=== PATIENT | male | born 1945 | race African-American/Black ===

== ENCOUNTER → 2016-11-05 | Day surgery (SDC) | payer MEDICARE, OTHER ==
[~2016-11-05] VITALS: Ht 175.3 cm; Wt 118.2 kg
[~2016-11-05] MED LIST: APIX2.5T PO; ASPI1TAB69 PO; BENA25TA3 PO; BUPIVACAINE/EPINEPHRINE 0.25% PF 30 ML VIAL ONE; CALC667T PO; DIALCAP PO; FURO40TA PO; GELFOAM SIZE 100 ONE; HEPARIN SODIUM - IV 10,000 UNITS/10 ML VIAL ONE; HEPARIN SODIUM - SQ 10,000 UNITS/ML VIAL ONE; INSU100V SQ; INSULIN HUMAN REGULAR 1,000 UNITS/10 ML VIAL SQ PRN; LACTATED RINGER'S 1000 ML IV SCH; LANTUS2P SQ; LEVEMIR SQ; METOPROLOL TARTRATE 25 MG TAB PO PRN; PANT40TA3 PO; PROTAMINE SULFATE 50 MG/5 ML VIAL ONE; RENACAP2 PO; SODIUM CHLORID 0.9% 500 ML IV SCH; TAMS0.4C4 PO; THROMBIN (TOPICAL) 5,000 UNIT VIAL ONE; VANCOMYCIN HCL 1000 MG VIAL ONE
[2016-11-05 07:10] VITALS: BP 117/68; PULSE 99; RESP 16; TEMP 97.8; O2SAT 100
[2016-11-05 07:12] LABS: AUTOMATED NEUTROPHIL # 2.5 TH/MM3 (1.8-7.7); BASOPHIL # 0.1 TH/MM3 (0-0.2); BASOPHIL % 1.4 % (0.0-2.0); EOSINOPHIL # 0.2 TH/MM3 (0-0.4); EOSINOPHIL % 3.1 % (0.0-4.0); HEMATOCRIT 31.5 % (39.0-51.0); HEMO FLAGS DIFF FINAL; LYMPH % 47.8 % (9.0-44.0); LYMPHOCYTE # 3.3 TH/MM3 (1.0-4.8); MEAN CELL VOLUME 83.6 FL (80.0-100.0); MEAN CORPUSCULAR HEMOGLOBIN 26.2 PG (27.0-34.0); MEAN CORPUSCULAR HGB CONC 31.4 % (32.0-36.0); MONO % 11.1 % (0.0-8.0); NEUT % 36.6 % (16.0-70.0); PLATELET COUNT 381 TH/MM3 (150-450); RED BLOOD COUNT 3.78 MIL/MM3 (4.50-5.90); RED CELL DISTRIBUTION WIDTH 20.4 % (11.6-17.2); WHITE BLOOD COUNT 6.9 TH/MM3 (4.0-11.0)
--- NOTE | 2016-11-05 07:28 | RADRPT ---
EXAM DATE/TIME: 11/05/2016 06:26 [place] COMPARISON: No previous studies available for comparison. INDICATIONS : Evaluate for pneumonia, pneumothorax or communicable disease. Preop chest for vascular surgery today MEDICAL HISTORY : Diabetes mellitus type II. SURGICAL HISTORY : None. ENCOUNTER: Initial ACUITY: 1 day PAIN SCORE: 0/10 LOCATION: Bilateral chest FINDINGS: A left internal jugular tunneled dialysis catheter has its tip at the junction of the superior vena c lux and right atrium. No pneumothorax is noted. There is elevation of the right hemidiaphragm. The he art is normal. The pulmonary vascular pattern is normal. The lungs are clear. CONCLUSION: No acute cardiopulmonary disease. Breezy Montero MD on November 05, 2016 at 7:25 Board Certified Radiologist. This report was verified electronically.
[2016-11-05 07:48] LABS: ALKALINE PHOSPHATASE 100 U/L (45-117); TOTAL BILIRUBIN ADULT 0.2 MG/DL (0.2-1.0)
[2016-11-05 07:51] LABS: ALT (GPT) 18 U/L (12-78); ANION GAP 7 MEQ/L (5-15); AST (GOT) 15 U/L (15-37); BICARBONATE 26.3 MEQ/L (21.0-32.0); BLOOD UREA NITROGEN 46 MG/DL (7-18); CHLORIDE 103 MEQ/L (98-107); GLOMERULAR FILTRATION RATE 8 ML/MIN (>89); SODIUM (NA) 136 MEQ/L (136-145)
--- NOTE | 2016-11-05 13:35 | EKG ---
Date Performed: 11/05/2016 Time Performed: 06:49:34 PTAGE: 71 years EKG: Sinus rhythm NORMAL ECG NO PREVIOUS TRACING DOCTOR: Miracle Pascal Interpretating Date/Time 11/05/2016 13:30:58
== END | disposition home or self-care (01) ==
LOC: HSDC 05:51
PROVIDERS: ATTEND Surgery
DX: N18.6 End stage renal disease (principal); I12.0 Hypertensive chronic kidney disease with stage 5 chronic kidney disease or end stage renal disease; E11.9 Type 2 diabetes mellitus without complications; Z53.9 Procedure and treatment not carried out, unspecified reason; Z99.2 Dependence on renal dialysis
CPT/HCPCS: 71010; 80053; 85025; 86850; 86900; 86901; 93005; G0463; J1815; 99211; J1644; J2720; J3370

== ENCOUNTER 2016-11-12 08:13 | Observation (INO) | payer MEDICARE, OTHER ==
[~2016-11-12] VITALS: Ht 175.3 cm; Wt 117.3 kg
[~2016-11-12 08:13] MED LIST changes: -BUPIVACAINE/EPINEPHRINE 0.25% PF 30 ML VIAL ONE; -DIALCAP PO; -GELFOAM SIZE 100 ONE; -HEPARIN SODIUM - IV 10,000 UNITS/10 ML VIAL ONE; -HEPARIN SODIUM - SQ 10,000 UNITS/ML VIAL ONE; -INSU100V SQ; -INSULIN HUMAN REGULAR 1,000 UNITS/10 ML VIAL SQ PRN; -LACTATED RINGER'S 1000 ML IV SCH; -METOPROLOL TARTRATE 25 MG TAB PO PRN; -PROTAMINE SULFATE 50 MG/5 ML VIAL ONE; -SODIUM CHLORID 0.9% 500 ML IV SCH; -THROMBIN (TOPICAL) 5,000 UNIT VIAL ONE; -VANCOMYCIN HCL 1000 MG VIAL ONE
[2016-11-12] MEDS ORDERED: BUPIVACAINE/EPINEPHRINE 0.25% PF 30 ML VIAL ONE (08:34)
[2016-11-12] MEDS ORDERED: HEPARIN SODIUM - IV 10,000 UNITS/10 ML VIAL ONE (08:34)
[2016-11-12] MEDS ORDERED: HEPARIN SODIUM - SQ 10,000 UNITS/ML VIAL ONE (08:35)
[2016-11-12] MEDS ORDERED: PROTAMINE SULFATE 50 MG/5 ML VIAL ONE (08:35)
[2016-11-12] MEDS ORDERED: VANCOMYCIN HCL 1000 MG VIAL ONE (08:35)
[2016-11-12] MEDS ORDERED: THROMBIN (TOPICAL) 5,000 UNIT VIAL ONE (08:40)
[2016-11-12] MEDS ORDERED: GELFOAM SIZE 100 ONE (08:40)
[2016-11-12] MEDS ORDERED: INSULIN HUMAN REGULAR 1,000 UNITS/10 ML VIAL ONE (09:31)
[2016-11-12] MEDS ORDERED: DIALCAP PO (09:41)
[2016-11-12 09:45] VITALS: BP 120/69; PULSE 90; RESP 20; TEMP 98.1; O2SAT 100
[2016-11-12] MEDS ORDERED: MIDAZOLAM HCL 5 MG/5 ML VIAL ONE (10:44)
[2016-11-12] MEDS ORDERED: KETAMINE HCL 500 MG/5 ML VIAL ONE (10:54)
[2016-11-12] MEDS ORDERED: ROPIVACAINE 0.5% PF INJ 30 ML VIAL NB ONE (11:41)
[2016-11-12] MEDS ORDERED: PHENYLEPH/NS 1000 MCG/10 ML SYR IV ONE (12:00)
[2016-11-12] MEDS ORDERED: ePHEDrine/NS 25 MG/5 ML SYR IV ONE (12:00)
[2016-11-12] MEDS ORDERED: PROPOFOL 200 MG/20 ML AMP IV ONE (12:00)
[2016-11-12] MEDS ORDERED: FUROSEMIDE 40 MG/4 ML VIAL IV PUSH ONE (12:00)
[2016-11-12] MEDS ORDERED: SUGAMMADEX SODIUM 200 MG/2 ML VIAL IV PUSH ONE ×2 (12:43)
[2016-11-12 12:58] LABS: BLOOD GAS BASE EXCESS -5.4 mmol/L (-2-2); BLOOD GAS CARBOXYHEMOGLOBIN 1.6 % (0-4); BLOOD GAS HCO3 20 mmol/L (22-26); BLOOD GAS METHEMOGLOBIN 0.9 % (0-2); BLOOD GAS O2 HGB SATURATION 97 % (90-100); BLOOD GAS OXYGEN CONTENT 14.8 Vol % (12.0-20.0); BLOOD GAS PCO2 41 mmHg (38-42); BLOOD GAS PO2 244 mmHg (61-120); BLOOD GAS TOTAL HGB 10.4 G/DL (12.0-16.0); CRITICAL VALUE NO; OXYGEN DEVICE OR; STAT YES; TEMP CORR TO 98.6
[2016-11-12] MEDS ORDERED: SODIUM CHLOR 0.9% 1000 ML INJ 1,000 ML IV SCH (15:44)
[2016-11-12] MEDS ORDERED: ONDANSETRON HCL 4 MG/2 ML VIAL IVP PRN (15:45)
[2016-11-12] MEDS ORDERED: NALOXONE HCL 0.4 MG/ML AMP IV PRN (15:45)
[2016-11-12] MEDS ORDERED: SODIUM CHLORIDE 0.9% FLUSH 5 ML FLUSH FLUSH PRN (15:45)
[2016-11-12 17:27] LABS: AUTOMATED NEUTROPHIL # 5.7 TH/MM3 (1.8-7.7); BASOPHIL % 0.5 % (0.0-2.0); HEMATOCRIT 32.4 % (39.0-51.0); HEMO FLAGS DIFF FINAL; LYMPH % 11.8 % (9.0-44.0); LYMPHOCYTE # 0.8 TH/MM3 (1.0-4.8); MEAN CELL VOLUME 84.4 FL (80.0-100.0); MEAN CORPUSCULAR HEMOGLOBIN 26.4 PG (27.0-34.0); MEAN CORPUSCULAR HGB CONC 31.3 % (32.0-36.0); MONO % 1.4 % (0.0-8.0); NEUT % 86.3 % (16.0-70.0); PLATELET COUNT 329 TH/MM3 (150-450); RED BLOOD COUNT 3.84 MIL/MM3 (4.50-5.90); RED CELL DISTRIBUTION WIDTH 21.4 % (11.6-17.2); WHITE BLOOD COUNT 6.6 TH/MM3 (4.0-11.0)
--- NOTE | 2016-11-12 17:46 | EC ---
Study Study Date:11/12/2016 STUDY CONCLUSIONS SUMMARY - Left ventricle: The cavity size was normal. Wall thickness was normal. Systolic function was normal. The estimated ejection fraction was in the range of 55% to 60%. Doppler parameters are consistent with abnormal left ventricular relaxation (grade 1 diastolic dysfunction). - Ventricular septum: The outflow septum had a sigmoid appearance. - Aortic valve: Mildly calcified annulus. Trileaflet; mildly thickened leaflets. - Mitral valve: Mildly calcified annulus. Normal thickness leaflets, . If LV function is below 40, please consider prescribing an ACEI or ARB or document rationale for non-use. PROCEDURE DATA STUDY STATUS: Elective. Procedure: Transthoracic echocardiography. Image quality was good. Scanning was performed from the parasternal, apical, and subcostal acoustic windows. Study completion: The patient tolerated the procedure well. Transthoracic echocardiography. M-mode, complete 2D, complete spectral Doppler, and color Doppler. Patient status: Inpatient. CARDIAC ANATOMY LEFT VENTRICLE: The cavity size was normal. Wall thickness was normal. Systolic function was normal. The estimated ejection fraction was in the range of 55% to 60%. Doppler parameters are consistent with abnormal left ventricular relaxation (grade 1 diastolic dysfunction). AORTIC VALVE: Mildly calcified annulus. Trileaflet; mildly thickened leaflets. Doppler: There was no stenosis. No significant regurgitation. MITRAL VALVE: Mildly calcified annulus. Normal thickness leaflets, . Doppler: There was no evidence for stenosis. Trace regurgitation. Peak gradient: 2mm Hg (D). LEFT ATRIUM: The atrium was normal in size. RIGHT VENTRICLE: The cavity size was at the upper limits of normal. Systolic function was normal. VENTRICULAR SEPTUM: The outflow septum had a sigmoid appearance. PULMONIC VALVE: Not well visualized. Doppler: There was no evidence for stenosis. No significant regurgitation. TRICUSPID VALVE: The valve appears to be grossly normal. Doppler: There was no evidence for stenosis. Trace regurgitation. PERICARDIUM: There was no pericardial effusion. BASIC MEASUREMENTS ADULT Normal Left ventricle LV internal dimension, ED, chordal level, 47.5 mm 43-52 PLAX LV internal dimension, ES, chordal level, 35.7 mm 23-38 PLAX Fractional shortening, chordal level, PLAX *25 % >29 LV posterior wall thickness, ED 7.29 mm IVS/LVPW ratio, ED *1.36 <1.3 Ventricular septum Septal thickness, ED 9.88 mm Aortic valve Leaflet separation 22 mm 15-26 Left atrium Anterior-posterior dimension 31 mm Right ventricle RV internal dimension, ED, PLAX 29.5 mm 19-38 BASIC MEASUREMENTS ADULT Normal Aortic valve Leaflet separation 22 mm 15-26 Aorta Root diameter, ED *39 mm 20-37 DOPPLER MEASUREMENTS ADULT Normal Main pulmonary artery Pressure, S 23 mm Hg =30 Mitral valve Peak E-wave velocity 78.4 cm/s Peak A-wave velocity 105 cm/s Peak gradient, D 2 mm Hg Peak E/A ratio 0.7 Tricuspid valve Regurgitant peak velocity 205 cm/s Peak RV-RA gradient, S 17 mm Hg Maximal regurgitant velocity 205 cm/s Systemic veins Estimated CVP 5 mm Hg Right ventricle RV pressure, S 23 mm Hg <30 LEGEND: Mean values are shown as u=mean value. Asterisk (*) fernando values outside specified normal range. Prepared and signed by Glenroy Woody [id number]
[2016-11-12] MEDS ORDERED: FUROSEMIDE 40 MG TAB PO SCH (18:00)
[2016-11-12] MEDS ORDERED: DEXTROSE 50% IN WATER 50 ML VIAL(D50) IV PUSH PRN (18:00)
[2016-11-12] MEDS ORDERED: GLUCAGON 1 MG/ML VIAL OTHER PRN (18:00)
--- NOTE | 2016-11-12 18:40 | HHI.HP ---
[facility] Service [facility] ([place], [place])ists Primary Care Physician No Primary Care Physician Admission Diagnosis Diagnoses: (1) Hypotension Chief Complaint: S/P RUE AV fistula placement Travel History International Travel<30 Days: No Contact w/Intl Traveler <30 Da: No Traveled to Known Affected Are: No History of Present Illness This is a pleasant 71-year-old male patient with a past medical history which includes renal stents 2, DVT right upper extremity on pelvic rest, GERD, BPH, insulin-dependent diabetes mellitus and end-stage renal disease. Patient is status post right upper extremity brachiobasilic AV fistula today 11/12/[address] Watkins. Postoperatively patient had hypotensive episode 85/50 with question of aspiration. We have been consulted to admit patient for observation overnight. Patient evaluated at this time alert and oriented 3 reports she feels, "pretty well," offers no specific complaints at this time. Patient denies feeling dizzy lightheaded and short of breath. Patient also denies cough or sputum production. Patient did have bronchoscopy today which did not reveal aspiration contents. Patient does have Pink catheter in place secondary to urinary retention is followed by outpatient neurology Dr. Goodwin who plans to remove Pink catheter next Friday in his office. Review of Systems Other Other systems reviewed and negative except as mentioned in history of present illness Past Family Social History Past Medical History renal stents 2, DVT right upper extremity on pelvic rest, GERD, BPH, insulin- dependent diabetes mellitus and end-stage renal disease Past Surgical History Renal stent 2 Prostate surgery with laser Hemodialysis catheter placed Reported Medications Dialyvite Vitamin D 5000 (Cholecalciferol) 5,000 Unit Cap 5,000 Units PO DAILY Levemir Inj (Insulin Detemir) 1,000 unit/ 10 ML Vial 4 Units SQ BID Do not mix with any other Insulin. Lantus Inj (Insulin Glargine) 1,000 Unit/10 Ml Vial 8 Units SQ HS Aspirin 81 Mg Tabdr 81 Mg PO DAILY Eliquis (Apixaban) 2.5 Mg Tab 2.5 Mg PO BID Pantoprazole (Pantoprazole Sodium) 40 Mg Tab 40 Mg PO DAILY Benadryl Allergy (Diphenhydramine HCl) 25 Mg Tab 25 Mg PO HS PRN Renal Vitamin (B-Complex W/ C & Folic Acid) 1 Cap 1 Cap PO DAILY If on dialysis, take after treatment. Calcium Acetate (Phosphate Binder) 667 Mg Tab 667 Mg PO TID Furosemide 40 Mg Tab 40 Mg PO SUTUTHSA Tamsulosin (Tamsulosin HCl) 0.4 Mg Cap 0.4 Mg PO HS Allergies: Coded Allergies: No Known Allergies (Verified , 11/12/16) Active Ordered Medications Current Medications Medications (Trade) Dose Ordered Sig/Fabiola Route Start Time Stop Time Status Last Admin Pantoprazole Sodium 40 mg 40 mg DAILY PO 11/13/16 09:00 (NS 1000 ml Inj) 1,000 ml @ 100 mls/hr Q10H IV 11/12/16 15:44 11/12/16 20:43 (NS Flush) 2 ml UNSCH PRN FLUSH 11/12/16 15:45 (NS Flush) 2 ml BID FLUSH 11/12/16 21:00 (Zofran Inj) 4 mg Q6H PRN IVP 11/12/16 15:45 (Narcan Inj) 0.4 mg UNSCH PRN IV 11/12/16 15:45 (Phoslo) 667 mg TID PO 11/12/16 18:00 UNV (Vitamin D3) 5,000 units DAILY PO 11/13/16 09:00 UNV (Lasix) 40 mg sututhsa PO 11/12/16 18:00 UNV (Flomax) 0.4 mg HS PO 11/12/16 21:00 UNV (D50w (Vial) Inj) 25 ml UNSCH PRN IV PUSH 11/12/16 18:00 UNV (Glucagon Inj) 1 mg UNSCH PRN OTHER 11/12/16 18:00 UNV Family History Patient's sister also has diabetes mellitus Patient's father had GA Social History Patient denies EtOH use tobacco use or illicit drug use Physical Exam Vital Signs Vital Signs Date Time Temp Pulse Resp B/P Pulse Ox O2 Delivery O2 Flow Rate FiO2 11/12/16 17:00 87 12 127/78 100 Room Air 11/12/16 16:30 78 12 119/69 100 Room Air 11/12/16 16:00 78 14 120/75 97 Room Air 11/12/16 15:45 83 13 121/75 96 Room Air 11/12/16 15:30 82 12 112/77 96 Room Air 11/12/16 15:15 97.3 96 12 111/69 98 Room Air 11/12/16 15:00 79 12 113/53 100 Room Air 11/12/16 14:45 84 18 103/55 99 Room Air 11/12/16 14:30 77 12 85/50 95 Room Air 11/12/16 14:15 86 12 91/51 92 Room Air 11/12/16 14:00 87 13 89/53 96 Room Air 11/12/16 13:45 86 12 85/45 98 Room Air 11/12/16 13:30 90 13 82/45 99 Room Air 11/12/16 13:15 110 14 97/51 100 Room Air 11/12/16 13:13 97.4 108 16 86/54 100 Simple Mask 6 11/12/16 09:45 98.1 90 20 120/69 100 Physical Exam GENERAL: This is a well-nourished, well-developed patient, in no apparent distress. SKIN: No rashes, ecchymoses or lesions. Cool and dry. HEAD: Atraumatic. Normocephalic. No temporal or scalp tenderness. EYES: Extraocular motions intact. No scleral icterus. No injection or drainage. ENT: Nose without bleeding, purulent drainage or septal hematoma. Throat without erythema, tonsillar hypertrophy or exudate. Uvula midline. Airway patent. NECK: Trachea midline. No JVD or lymphadenopathy. Supple, nontender, no meningeal signs. CARDIOVASCULAR: Regular rate and rhythm without murmurs, gallops, or rubs. RESPIRATORY: Clear to auscultation. Breath sounds equal bilaterally. No wheezes , rales, or rhonchi. GASTROINTESTINAL: Abdomen soft, non-tender, nondistended. No guarding. MUSCULOSKELETAL: Extremities without clubbing, cyanosis, or edema. No joint tenderness, effusion, or edema noted. No calf tenderness. Negative Homans sign bilaterally. NEUROLOGICAL: Awake and alert. Five out of 5 muscle strength in all muscle groups with the exception of right upper extremity. Patient is postop AV fistula placement reports right upper extremity feels numb. Normal speech. Laboratory Laboratory Tests Test 11/12/16 11/12/16 11/12/16 09:35 12:46 17:15 Potassium Level 5.3 Blood Type B POSITIVE Antibody Screen NEGATIVE Blood Gas Puncture Site DRAWN IN OR Blood Gas Patient Temperature 98.6 Blood Gas HCO3 20 Blood Gas Base Excess -5.4 Blood Gas Oxygen Saturation 97 Arterial Blood pH 7.30 Arterial Blood Partial 41 Pressure CO2 Arterial Blood Partial 244 Pressure O2 Arterial Blood Oxygen Content 14.8 Arterial Blood 1.6 Carboxyhemoglobin Arterial Blood Methemoglobin 0.9 Blood Gas Hemoglobin 10.4 Oxygen Delivery Device OR White Blood Count 6.6 Red Blood Count 3.84 Hemoglobin 10.1 Hematocrit 32.4 Mean Corpuscular Volume 84.4 Mean Corpuscular Hemoglobin 26.4 Mean Corpuscular Hemoglobin 31.3 Concent Red Cell Distribution Width 21.4 Platelet Count 329 Mean Platelet Volume 7.4 Neutrophils (%) (Auto) 86.3 Lymphocytes (%) (Auto) 11.8 Monocytes (%) (Auto) 1.4 Eosinophils (%) (Auto) 0.0 Basophils (%) (Auto) 0.5 Neutrophils # (Auto) 5.7 Lymphocytes # (Auto) 0.8 Monocytes # (Auto) 0.1 Eosinophils # (Auto) 0.0 Basophils # (Auto) 0.0 CBC Comment DIFF FINAL Differential Comment Result Diagram: 11/12/16 1715 11/12/16 0935 Assessment and Plan Assessment and Plan This is a pleasant 71-year-old male patient with a past medical history which includes renal stents 2, DVT right upper extremity on pelvic rest, GERD, BPH, insulin-dependent diabetes mellitus and end-stage renal disease. Patient is status post right upper extremity brachiobasilic AV fistula today 11/12/[address] Luong. Postoperatively patient had hypotensive episode 85/50 with question of aspiration. Patient did have bronchoscopy today which did not reveal aspiration contents. We have been consulted to admit patient for observation overnight. End-stage renal disease status post AV fistula placed 11/12/2016 Consultation to nephrology for hemodialysis patient has dialysis Friday Hyperkalemia 5.3 recheck in a.m. Hypotensive episode patient received IV fluids and is now normotensive. Continue to monitor overnight Question of aspiration patient underwent bronchoscopy today which did not reveal aspiration contents. Patient has no symptoms of respiratory compromise currently. Monitor patient closely for signs and symptoms of infection Diabetes mellitus sliding scale insulin coverage continue to monitor History of right upper extremity DVT on Eliquis which is currently on hold status post AV fistula placement will resume once okay with surgery Urinary retention BPH- Pink catheter in place patient follows with urology Dr. Goodwin who plans to remove the catheter as an outpatient next Friday leave Pink in place DVT prophylaxis SCDs Plan of care discussed with patient and patient's over the phone. Written by Radha Beltran, acting as scribe for Dr. Malcolm on 11/12/16 at 18 :37. The documentation accurately reflects the work performed [id number] by me on 11/12/16 at 1837. Radha Beltran Nov 12, 2016 18:40 Purvi Malcolm MD Nov 12, 2016 19:07
[2016-11-12 19:14] LABS: BICARBONATE 24.9 MEQ/L (21.0-32.0); POTASSIUM 5.8 MEQ/L (3.5-5.1)
[2016-11-12 20:00] VITALS: BP 121/74; PULSE 89; RESP 20; TEMP 96; O2SAT 99
--- NOTE | 2016-11-12 20:43 | HHI.PR ---
Immediate Post Op Note Procedure Date: Nov 12, 2016 Pre Op Diagnosis: (1) ESRD (end stage renal disease) on dialysis Post Op Diagnosis: (1) ESRD (end stage renal disease) on dialysis (2) Hypotension Surgeon: Ben Luong Assembler Trim(s): GYPSY Procedure: Right upper extremity Brachiobasilic AVF Findings: Appropriate size basillic vein with palpable thrill post procedure with distal pulses intact. Additional Information: patient with emesis converted from MAC to ET intubation during the procedure. Complications: none Specimen(s) removed: NA Estimated blood loss: less than 25cc Anesthesia: General Drains: None Fluids: 250cc Other (crystalloid) Tourniquet time (min at mmHg) NA Patient to: PACU Patient Condition: Good Implant/Devices: Other Date/Time of Procedure: SEE SURGICAL CARE RECORD Ben Luong DO Nov 12, 2016 20:43
--- NOTE | 2016-11-12 20:57 | PD.VS.PN ---
Objective Vitals/I&O Date Time Temp Pulse Resp B/P Pulse Ox O2 Delivery O2 Flow Rate FiO2 11/12/16 18:30 97.6 85 13 122/68 100 Room Air 11/12/16 18:00 81 14 123/68 100 Room Air 11/12/16 17:00 87 12 127/78 100 Room Air 11/12/16 16:30 78 12 119/69 100 Room Air 11/12/16 16:00 78 14 120/75 97 Room Air 11/12/16 15:45 83 13 121/75 96 Room Air 11/12/16 15:30 82 12 112/77 96 Room Air 11/12/16 15:15 97.3 96 12 111/69 98 Room Air 11/12/16 15:00 79 12 113/53 100 Room Air 11/12/16 14:45 84 18 103/55 99 Room Air 11/12/16 14:30 77 12 85/50 95 Room Air 11/12/16 14:15 86 12 91/51 92 Room Air 11/12/16 14:00 87 13 89/53 96 Room Air 11/12/16 13:45 86 12 85/45 98 Room Air 11/12/16 13:30 90 13 82/45 99 Room Air 11/12/16 13:15 110 14 97/51 100 Room Air 11/12/16 13:13 97.4 108 16 86/54 100 Simple Mask 6 11/12/16 09:45 98.1 90 20 120/69 100 11/12/16 11/12/16 11/12/16 07:00 15:00 23:00 Intake Total 400 ml 150 ml Output Total 50 ml Balance 350 ml 150 ml Physical Exam thrill with clean dressing right upper extremity A&O x 3 Laboratory Laboratory Tests Test 11/12/16 11/12/16 11/12/16 11/12/16 09:35 12:46 17:15 18:23 Potassium Level 5.3 5.8 Blood Type B POSITIVE Antibody Screen NEGATIVE Blood Gas Puncture Site DRAWN IN OR Blood Gas Patient Temperature 98.6 Blood Gas HCO3 20 Blood Gas Base Excess -5.4 Blood Gas Oxygen Saturation 97 Arterial Blood pH 7.30 Arterial Blood Partial 41 Pressure CO2 Arterial Blood Partial 244 Pressure O2 Arterial Blood Oxygen Content 14.8 Arterial Blood 1.6 Carboxyhemoglobin Arterial Blood Methemoglobin 0.9 Blood Gas Hemoglobin 10.4 Oxygen Delivery Device OR White Blood Count 6.6 Red Blood Count 3.84 Hemoglobin 10.1 Hematocrit 32.4 Mean Corpuscular Volume 84.4 Mean Corpuscular Hemoglobin 26.4 Mean Corpuscular Hemoglobin 31.3 Concent Red Cell Distribution Width 21.4 Platelet Count 329 Mean Platelet Volume 7.4 Neutrophils (%) (Auto) 86.3 Lymphocytes (%) (Auto) 11.8 Monocytes (%) (Auto) 1.4 Eosinophils (%) (Auto) 0.0 Basophils (%) (Auto) 0.5 Neutrophils # (Auto) 5.7 Lymphocytes # (Auto) 0.8 Monocytes # (Auto) 0.1 Eosinophils # (Auto) 0.0 Basophils # (Auto) 0.0 CBC Comment DIFF FINAL Differential Comment Sodium Level 133 Chloride Level 100 Carbon Dioxide Level 24.9 Anion Gap 8 Blood Urea Nitrogen 63 Creatinine 9.45 Estimat Glomerular Filtration 7 Rate Random Glucose 193 Calcium Level 9.0 Assessment and Plan Assessment: (1) ESRD (end stage renal disease) on dialysis Status: Acute (2) Hypotension Status: Acute Plan Patient is a 71 year old status post right upper extremity Brachiobasilic AVF creation. Fistula created with minimal blood loss under nerve block. Patient hypotensive in PACU (80 mmHg systolic) but neurologically intact. Patient normotensive on follow up blood pressure in 110 mm HG systolic range. Neurologically intact without other complaints. Concern from anesthesia for hypotension with decision to be admitted and worked up by cardiology. Patient with know episodes of hypotension during dialysis, suspect possible volume depletion with base deficit. Admitted to be worked up for CHF. EF greater than 40% by echocardiogram post op. Cardiology will make recommendations. If cleared in AM possible discharge to get dialysis as outpatient (1145 am). Will follow along with recommendations. Otherwise follow up in one week in office. [phone]. Ben Luong DO, FACS Java Developer Consultant of Vascular Surgery AQUILES/Ben Jansen DO Nov 12, 2016 20:57
[2016-11-12] MEDS ORDERED: TAMSULOSIN HCL 0.4 MG CAP PO SCH (21:00)
[2016-11-12] MEDS: INSULIN ASPART SUPPLEMENTAL SCALE SQ SCH (21:00)
[2016-11-12] MEDS: CALCIUM ACETATE 667 MG CAP PO SCH (21:13)
[2016-11-12] MEDS: SODIUM CHLORIDE 0.9% FLUSH 5 ML FLUSH FLUSH SCH (21:14)
[2016-11-13] VITALS: BP 119/65; PULSE 84; RESP 20; TEMP 96.2; O2SAT 100
--- NOTE | 2016-11-13 00:04 | MB ---
cc: GLENROY DANIEL RYAN DATE OF CONSULTATION: 11/12/2016 REASON FOR CONSULTATION: Hypotensive postop HISTORY OF PRESENT ILLNESS Bonifacio Laguerre is a pleasant 71-year-old -Wel[place] male who presented for an elective right AV fistula creation by Dr. Luong today at [facility] (November 12, 2016). Per Dr. Luong, the patient was originally given anesthetics with a nerve block and then he was noted to somewhat be hypotensive and he was switched to an LMA at that time. The procedure went well without complication. Postoperatively in the PACU he was mildly hypotensive and given a small amount of fluid and then responded with a normal blood pressure. There was concern by anesthesia so a STAT echo was placed and consult for cardiology. In seeing Bonifacio at this time, he states that he has no chest pain or shortness of breath and feels well. PAST MEDICAL HISTORY 1. Peripheral artery disease. 2. End-stage renal disease. 3. History of DVT. 4. GERD. 5. BPH. 6. Insulin-dependent diabetes mellitus. PAST SURGICAL HISTORY 1. Creation of right AV fistula (November 12, 2016). 2. Renal stent x2. 3. Prostate surgery with laser. ALLERGIES NO KNOWN DRUG ALLERGIES. MEDICATIONS 1. Flomax 0.4 mg every night 2. Eliquis 2.5 mg b.i.d. 3. Benadryl as needed 4. Levemir 4 units b.i.d. 5. Lantus 8 units every night. 6. Lasix 40 mg 7. Aspirin 81 mg 8. Protonix 40 mg 9. Calcium acetate 667 mg t.i.d. FAMILY HISTORY Denies premature coronary artery disease or sudden cardiac within the family. SOCIAL HISTORY The patient denies alcohol use. Denies tobacco use. Denies illicit drug abuse. REVIEW OF SYSTEMS 14 systems were reviewed including osteopathic, pertinent positives and negatives above, otherwise negative. PHYSICAL EXAMINATION Vital signs: Temperature 96.0. Heart rate 89, blood pressure 121/74, respirations 20, pulse ox 99% on room air. General: The patient appears well in no acute distress, alert, awake and oriented x3. Extraocular muscles intact. Mucous membranes moist. Neck is supple. No JVD at 45 degrees. No carotid bruits heard bilaterally. Carotid upstroke is brisk in nature. Heart has a regular rate and rhythm. Positive first and second heart sounds with no murmurs, gallops or rubs. PMI is nondisplaced. Lungs: Clear to auscultation bilaterally. No wheezes, rales or rhonchi. Abdomen: Soft, nontender, nondistended, no organomegaly noted. Extremities: Show no clubbing, cyanosis or edema. Right upper extremity is bandaged from recent AV fistula. Skin: Warm, dry and intact. Osteopathically, no kyphoscoliosis, lordosis or paraspinal tender points. LABORATORY WORK Hemoglobin 10.1, hematocrit 32.4, platelets 329. Potassium 5.8, BUN 63, creatinine 9.45. Electrocardiogram (November 12, 2016 at 16:25) normal sinus rhythm, no significant ST-T wave changes. IMPRESSION 1. Mild hypotension postoperatively which responded to fluids. 2. End-stage renal disease on hemodialysis status post right AV fistula creation (November 12, 2016. RECOMMENDATIONS 1. Bonifacio appears to be doing well postoperatively, his hypotension at the end of the procedure may be due to overall fluid deficit due to recent dialysis as well as medications used for anesthetics. 2. We will check an echo to look at his overall left ventricular function. 3. EKG postoperatively shows no signs of ischemia. He currently has no signs or symptoms of ischemia. 4. If echo shows normal ejection fraction with no concerns as well as doing well overnight, I will see him in the morning and he most likely can be discharged to attend his normal hemodialysis session. Thank you for allowing me to see Bonifacio Laguerre. If there are any questions please do not hesitate to call. Glenroy Daniel DO VGP/JULIANNA /11:23 PM /11:54 PM
[2016-11-13 04:00] VITALS: BP 119/68; PULSE 85; RESP 20; TEMP 96; O2SAT 98
[2016-11-13] MEDS: INSULIN ASPART SUPPLEMENTAL SCALE SQ SCH (06:19)
--- NOTE | 2016-11-13 07:10 | MP ---
cc: PETE ORDAZ DATE OF SURGERY 11/12/2016 SURGEON Pete Ordaz DO BALLISTIC TECHNICIAN Jordan Rojas PREOPERATIVE DIAGNOSIS End-stage renal disease. POSTOPERATIVE DIAGNOSIS End-stage renal disease. PROCEDURE Right upper extremity brachiobasilic AV fistula ANESTHESIA Initially was MAC and supraclavicular nerve block with progression to endotracheal intubation by and the end of the case. IV FLUIDS 200 cc ESTIMATED BLOOD LOSS Minimal URINE OUTPUT Not calculated. COMPLICATIONS None DISPOSITION To PACU PROCEDURE The patient's right upper extremity was prepped and draped in A sterile fashion. Got access using a curvilinear incision just above the antecubital fossa on the medial aspect of the right arm with a scalpel and electrocautery. This was approximately a 4 cm incision. I dissected down with Metzenbaum scissors around the os basilic vein. It should be noted I did preoperatively use ultrasound to look at the cephalic and basilic vein and the basilic vein was a more appropriate diameter vein for this case. I divided side branches with small clips and 3-0 and 4-0 silks as needed and divided the vessels. I then immobilized the vein. I then incised the bicipital aponeurosis with Metzenbaum scissors and mobilized the brachial artery and paired brachial veins. I placed Vesseloops to get proximal and distal control of the brachial artery and gave the patient 3000 units of heparin. I divided the basilic vein just below the antecubital fossa and I used a zero suture ligature distally. It should be noted that the vein did appropriately inflate whenever I injected normal saline. I then fashioned out a joanne appearing portion of vein and then I performed an arteriotomy with an 11-blade and micro Pott scissor over the right brachial artery. I performed an end-to-side anastomosis with a 5-0 Prolene and a bv1. At the end, the patient had good back bleeding and flow distally. It should be noted that just after the anastomosis was completed, the patient was having some problems with secretions. Based on this, we converted to endotracheal tube intubation. The patient's saturations were maintained throughout the case. It should be noted that there was some concern about some aspirated fluids so bronchoscopy with lavage was performed in this area as separately dictated by anesthesia. There were no secretions whenever they did this. We used a piece of Surgicel for hemostasis and used 2-0 and 3-0 Vicryl absorbable suture and a 4-0 Monocryl. We used Dermabond over the skin and then we put Kerlix around the level of the elbow. DO MIHIR Colon /12:41 PM /6:54 AM CHE
[2016-11-13 08:00] VITALS: BP 109/58; PULSE 83; RESP 18; TEMP 97.6; O2SAT 97
[2016-11-13] MEDS ORDERED: HEPARIN SODIUM - IV 10,000 UNITS/10 ML VIAL PRN (08:45)
[2016-11-13] MEDS ORDERED: diphenhydrAMINE HCL 25 MG CAP PO PRN (08:45)
[2016-11-13] MEDS ORDERED: SODIUM CHLORIDE 0.9% FLUSH 5 ML FLUSH IVF PRN (08:45)
[2016-11-13] MEDS ORDERED: ALBUMIN HUMAN 25% 25 GM/100 ML BAGP IV PRN (08:45)
[2016-11-13] MEDS ORDERED: NITROGLYCERIN 0.4 MG SL 25 TABS/BTL SL PRN (08:45)
[2016-11-13] MEDS ORDERED: MANNITOL 12.5 GM/50 ML VIAL IV PRN (08:45)
[2016-11-13] MEDS ORDERED: ONDANSETRON HCL 4 MG/2 ML VIAL IV PRN (08:45)
[2016-11-13] MEDS ORDERED: GELATIN 12 MM/7 MM FOAM TOP PRN (08:45)
[2016-11-13] MEDS ORDERED: cloNIDine HCL 0.1 MG TAB PO PRN (08:45)
[2016-11-13] MEDS ORDERED: GENTAMICIN SULFATE (DIALYSIS USE ONLY) 20 MG/2 ML VIAL IV PRN (08:45)
[2016-11-13] MEDS ORDERED: EPOETIN ALFA 10,000 UNITS/ML VIAL IV PRN (08:45)
[2016-11-13] MEDS ORDERED: HEPARIN SODIUM - IV 10,000 UNITS/10 ML VIAL IVF PRN (08:45)
[2016-11-13] MEDS ORDERED: SODIUM CHLOR 0.9% 1000 ML INJ 1,000 ML IV PRN ×3 (08:45)
[2016-11-13] MEDS ORDERED: ACETAMINOPHEN 325 MG TAB PO PRN (08:45)
[2016-11-13] MEDS ORDERED: CHOLECALCIFEROL (VIT D3) 5000 UNIT CAP PO SCH (09:00)
[2016-11-13] MEDS: CALCIUM ACETATE 667 MG CAP PO SCH (09:00)
[2016-11-13] MEDS: SODIUM CHLORIDE 0.9% FLUSH 5 ML FLUSH FLUSH SCH (09:00)
[2016-11-13] MEDS ORDERED: PANTOPRAZOLE SOD 40 MG DELAYED RELEASE TAB PO SCH (09:00)
--- NOTE | 2016-11-13 09:01 | PD.VS.DC ---
Discharge Summary Admission Date: Nov 12, 2016 at 15:47 Discharge Date: Nov 13, 2016 Admission Diagnosis: (1) Hypotension (2) ESRD (end stage renal disease) on dialysis Discharge Diagnosis: (1) ESRD (end stage renal disease) on dialysis Status: Chronic (2) Hypotension Status: Resolved Brief History from admission Pt is post op AVF to Right UE Pt developed hypotension post-up and was admitted for observation and a This am pt reports feeling well overnight with out any episodes of hypotension. Pt Currently awake in NAD denies any pain to incision site, denies any weakness or dizziness. Procedure(s): R AVF Significant Findings Laboratory Tests Test 11/12/16 11/12/16 11/12/16 11/12/16 09:35 12:46 17:15 18:23 Potassium Level 5.3 MEQ/L 5.8 MEQ/L (3.5-5.1) (3.5-5.1) Blood Gas HCO3 20 mmol/L (22-26) Blood Gas Base Excess -5.4 mmol/L (-2-2) Arterial Blood pH 7.30 (7.380-7.420) Arterial Blood Partial 244 mmHg Pressure O2 (61-120) Blood Gas Hemoglobin 10.4 G/DL (12.0-16.0) Red Blood Count 3.84 MIL/MM3 (4.50-5.90) Hemoglobin 10.1 GM/DL (13.0-17.0) Hematocrit 32.4 % (39.0-51.0) Mean Corpuscular Hemoglobin 26.4 PG (27.0-34.0) Mean Corpuscular Hemoglobin 31.3 % Concent (32.0-36.0) Red Cell Distribution Width 21.4 % (11.6-17.2) Neutrophils (%) (Auto) 86.3 % (16.0-70.0) Lymphocytes # (Auto) 0.8 TH/MM3 (1.0-4.8) Sodium Level 133 MEQ/L (136-145) Blood Urea Nitrogen 63 MG/DL (7-18) Creatinine 9.45 MG/DL (0.60-1.30) Estimat Glomerular Filtration 7 ML/MIN (>89) Rate Random Glucose 193 MG/DL (74-106) Hospital Course: Vital Signs Date Time Temp Pulse Resp B/P Pulse Ox O2 Delivery O2 Flow Rate FiO2 11/13/16 08:00 97.6 83 18 109/58 97 11/13/16 04:00 96.0 85 20 119/68 98 11/13/16 00:00 96.2 84 20 119/65 100 11/12/16 21:57 21 11/12/16 20:00 96.0 89 20 121/74 99 11/12/16 18:30 97.6 85 13 122/68 100 Room Air 11/12/16 18:00 81 14 123/68 100 Room Air 11/12/16 17:00 87 12 127/78 100 Room Air 11/12/16 16:30 78 12 119/69 100 Room Air 11/12/16 16:00 78 14 120/75 97 Room Air 11/12/16 15:45 83 13 121/75 96 Room Air 11/12/16 15:30 82 12 112/77 96 Room Air 11/12/16 15:15 97.3 96 12 111/69 98 Room Air 11/12/16 15:00 79 12 113/53 100 Room Air 11/12/16 14:45 84 18 103/55 99 Room Air 11/12/16 14:30 77 12 85/50 95 Room Air 11/12/16 14:15 86 12 91/51 92 Room Air 11/12/16 14:00 87 13 89/53 96 Room Air 11/12/16 13:45 86 12 85/45 98 Room Air 11/12/16 13:30 90 13 82/45 99 Room Air 11/12/16 13:15 110 14 97/51 100 Room Air 11/12/16 13:13 97.4 108 16 86/54 100 Simple Mask 6 11/12/16 09:45 98.1 90 20 120/69 100 Discharge Condition: Good Discharge Disposition: Discharge Home Discharge Instructions: F/U in out patient clinic in 1 week Scheduled appt time 11/20/16 at 1530 Call the office if any questions or concerns Eliane Rucker [facility] [phone] Any questions or concerns: Call [facility] Surgery at [facility] [phone] Eliane Rucker Nov 13, 2016 09:01
--- NOTE | 2016-11-13 09:12 | PD.CARD.PN ---
Subjective Subjective Remarks No chest pain, no shortness of breath, doing well Objective Medications Current Medications Medications (Trade) Dose Ordered Sig/Fabiola Route Start Time Stop Time Status Last Admin (Protonix) 40 mg DAILY PO 11/13/16 09:00 (NS Flush) 2 ml UNSCH PRN FLUSH 11/12/16 15:45 (NS Flush) 2 ml BID FLUSH 11/12/16 21:00 11/12/16 21:14 (Zofran Inj) 4 mg Q6H PRN IVP 11/12/16 15:45 (Narcan Inj) 0.4 mg UNSCH PRN IV 11/12/16 15:45 (Phoslo) 667 mg TID PO 11/12/16 18:00 11/12/16 21:13 (Vitamin D3) 5,000 units DAILY PO 11/13/16 09:00 (Lasix) 40 mg sututhsa PO 11/12/16 18:00 (Flomax) 0.4 mg HS PO 11/12/16 21:00 11/12/16 21:13 (D50w (Vial) Inj) 25 ml UNSCH PRN IV PUSH 11/12/16 18:00 Glucagon 1 mg 1 mg UNSCH PRN OTHER 11/12/16 18:00 (NS 1000 ml Inj) 1,000 ml @ 0 mls/hr Q0M PRN IV 11/13/16 08:45 Heparin Sodium (Porcine) 8000 units 8,000 units UNSCH PRN IVF 11/13/16 08:45 Sodium Chloride 1,000 ml @ 200 mls/hr Q5H PRN IV 11/13/16 08:45 (NS 1000 ml Inj) 1,000 ml @ 0 mls/hr Q0M PRN IV 11/13/16 08:45 (Mannitol Inj) 12.5 gm UNSCH PRN IV 11/13/16 08:45 (Albumin 25% Inj) 25 gm UNSCH PRN IV 11/13/16 08:45 (NS Flush) 5 ml UNSCH PRN IVF 11/13/16 08:45 (Heparin Inj) UNSCH PRN .XX 11/13/16 08:45 (Gentamicin (Dialysis) Inj) 20 mg UNSCH PRN IV 11/13/16 08:45 (Zofran Inj) 4 mg UNSCH PRN IV 11/13/16 08:45 (Tylenol) 650 mg UNSCH PRN PO 11/13/16 08:45 (Benadryl) 25 mg UNSCH PRN PO 11/13/16 08:45 (Nitrostat Sl) 0.4 mg UNSCH PRN SL 11/13/16 08:45 (Catapres) 0.1 mg UNSCH PRN PO 11/13/16 08:45 (Epogen Inj) 10,000 units UNSCH PRN IV 11/13/16 08:45 (Gelfoam 12 Mm/7 Mm Top) 1 foam UNSCH PRN TOP 11/13/16 08:45 Vital Signs / I&O Vital Signs Date Time Temp Pulse Resp B/P Pulse Ox O2 Delivery O2 Flow Rate FiO2 11/13/16 08:00 97.6 83 18 109/58 97 11/13/16 04:00 96.0 85 20 119/68 98 11/13/16 00:00 96.2 84 20 119/65 100 11/12/16 21:57 21 11/12/16 20:00 96.0 89 20 121/74 99 11/12/16 18:30 97.6 85 13 122/68 100 Room Air 11/12/16 18:00 81 14 123/68 100 Room Air 11/12/16 17:00 87 12 127/78 100 Room Air 11/12/16 16:30 78 12 119/69 100 Room Air 11/12/16 16:00 78 14 120/75 97 Room Air 11/12/16 15:45 83 13 121/75 96 Room Air 11/12/16 15:30 82 12 112/77 96 Room Air 11/12/16 15:15 97.3 96 12 111/69 98 Room Air 11/12/16 15:00 79 12 113/53 100 Room Air 11/12/16 14:45 84 18 103/55 99 Room Air 11/12/16 14:30 77 12 85/50 95 Room Air 11/12/16 14:15 86 12 91/51 92 Room Air 11/12/16 14:00 87 13 89/53 96 Room Air 11/12/16 13:45 86 12 85/45 98 Room Air 11/12/16 13:30 90 13 82/45 99 Room Air 11/12/16 13:15 110 14 97/51 100 Room Air 11/12/16 13:13 97.4 108 16 86/54 100 Simple Mask 6 11/12/16 09:45 98.1 90 20 120/69 100 I/O 11/12/16 11/12/16 11/12/16 11/13/16 11/13/16 11/13/16 07:00 15:00 23:00 07:00 15:00 23:00 Intake Total 400 ml 270 ml 240 ml Output Total 50 ml 100 ml 250 ml Balance 350 ml 170 ml -10 ml Intake Oral 100 ml 270 ml 240 ml IV Total 0 ml 0 ml Other 300 ml Output Urine Total 100 ml 250 ml Estimated Blood Loss 50 ml # Bowel Movements 0 0 Physical Exam GENERAL: NAD, AAOx3 SKIN: Warm and dry. HEAD: Atraumatic. Normocephalic. EYES: Pupils equal and round. No scleral icterus. No injection or drainage. ENT: No nasal bleeding or discharge. Mucous membranes pink and moist. NECK: Trachea midline. No JVD. CARDIOVASCULAR: Regular rate and rhythm. RESPIRATORY: No accessory muscle use. Clear to auscultation. Breath sounds equal bilaterally. GASTROINTESTINAL: Abdomen soft, non-tender, nondistended. Hepatic and splenic margins not palpable. MUSCULOSKELETAL: Extremities without clubbing, cyanosis, or edema. No obvious deformities. NEUROLOGICAL: Awake and alert. No obvious cranial nerve deficits. Motor grossly within normal limits. Five out of 5 muscle strength in the arms and legs. Normal speech. PSYCHIATRIC: Appropriate mood and affect; insight and judgment normal. Laboratory Laboratory Tests Test 11/12/16 11/12/16 11/12/16 11/12/16 09:35 12:46 17:15 18:23 Potassium Level 5.3 MEQ/L 5.8 MEQ/L Blood Type B POSITIVE Antibody Screen NEGATIVE Blood Gas Puncture Site DRAWN IN OR Blood Gas Patient Temperature 98.6 Blood Gas HCO3 20 mmol/L Blood Gas Base Excess -5.4 mmol/L Blood Gas Oxygen Saturation 97 % Arterial Blood pH 7.30 Arterial Blood Partial 41 mmHg Pressure CO2 Arterial Blood Partial 244 mmHg Pressure O2 Arterial Blood Oxygen Content 14.8 Vol % Arterial Blood 1.6 % Carboxyhemoglobin Arterial Blood Methemoglobin 0.9 % Blood Gas Hemoglobin 10.4 G/DL Oxygen Delivery Device OR White Blood Count 6.6 TH/MM3 Red Blood Count 3.84 MIL/MM3 Hemoglobin 10.1 GM/DL Hematocrit 32.4 % Mean Corpuscular Volume 84.4 FL Mean Corpuscular Hemoglobin 26.4 PG Mean Corpuscular Hemoglobin 31.3 % Concent Red Cell Distribution Width 21.4 % Platelet Count 329 TH/MM3 Mean Platelet Volume 7.4 FL Neutrophils (%) (Auto) 86.3 % Lymphocytes (%) (Auto) 11.8 % Monocytes (%) (Auto) 1.4 % Eosinophils (%) (Auto) 0.0 % Basophils (%) (Auto) 0.5 % Neutrophils # (Auto) 5.7 TH/MM3 Lymphocytes # (Auto) 0.8 TH/MM3 Monocytes # (Auto) 0.1 TH/MM3 Eosinophils # (Auto) 0.0 TH/MM3 Basophils # (Auto) 0.0 TH/MM3 CBC Comment DIFF FINAL Differential Comment Sodium Level 133 MEQ/L Chloride Level 100 MEQ/L Carbon Dioxide Level 24.9 MEQ/L Anion Gap 8 MEQ/L Blood Urea Nitrogen 63 MG/DL Creatinine 9.45 MG/DL Estimat Glomerular Filtration 7 ML/MIN Rate Random Glucose 193 MG/DL Calcium Level 9.0 MG/DL Assessment and Plan Problem List: (1) AVF (arteriovenous fistula) (2) Hypotension (3) ESRD (end stage renal disease) on dialysis Assessment and Plan 1) Mild hypotension post-op responding to fluids 2) EKG showing no ischemia/infract, patient showing no signs or symptoms of ischemia 3) Most likely somewhat fluid depleted from HD the day before 4) EF 55-60% on echo 5) Cardiovascularly stable for discharge this morning Glenroy Woody DO Nov 13, 2016 09:11
--- NOTE | 2016-11-13 10:19 | PD.CONS ---
HPI Service Nephrology Consult Requested By Gold Reason for Consult ESRD on HD Primary Care Physician No Primary Care Physician History of Present Illness This is a 71 y/o AAM pt who was admitted for observation. He was scheduled for outpatient AVF creation, which was successful. Postoperatively he became hypotensive, therefore was admitted. PMH of ESRD on HD M-W-, anemia, DM II, DVT on Eliquis, and BPH. His K was 5.8, we were consulted for management. He is due for dialysis today, is in no distress. Having some pain right arm. He has a Permcath in, has been on dialysis since May of 2016. He follows with Dr. Bang for nephrology. (Ana Hodgson) Review of Systems Constitutional: DENIES: Fatigue, Fever Musculoskeletal: COMPLAINS OF: Muscle aches (Ana Hodgson) Past Family Social History Allergies: Coded Allergies: No Known Allergies (Verified , 11/12/16) Past Medical History ESRD on HD M/W/F HTN DVT right upper extremity GERD BPH DM II Past Surgical History Renal stent 2 TURP x 2 Permcath Reported Medications Dialyvite Vitamin D 5000 (Cholecalciferol) 5,000 Unit Cap 5,000 Units PO DAILY Levemir Inj (Insulin Detemir) 1,000 unit/ 10 ML Vial 4 Units SQ BID Do not mix with any other Insulin. Lantus Inj (Insulin Glargine) 1,000 Unit/10 Ml Vial 8 Units SQ HS Aspirin 81 Mg Tabdr 81 Mg PO DAILY Eliquis (Apixaban) 2.5 Mg Tab 2.5 Mg PO BID Pantoprazole (Pantoprazole Sodium) 40 Mg Tab 40 Mg PO DAILY Benadryl Allergy (Diphenhydramine HCl) 25 Mg Tab 25 Mg PO HS PRN Renal Vitamin (B-Complex W/ C & Folic Acid) 1 Cap 1 Cap PO DAILY If on dialysis, take after treatment. Calcium Acetate (Phosphate Binder) 667 Mg Tab 667 Mg PO TID Furosemide 40 Mg Tab 40 Mg PO SUTUTHSA Tamsulosin (Tamsulosin HCl) 0.4 Mg Cap 0.4 Mg PO HS Active Ordered Medications Current Medications Medications (Trade) Dose Ordered Sig/Fabiola Route Start Time Stop Time Status Last Admin (Protonix) 40 mg DAILY PO 11/13/16 09:00 (NS Flush) 2 ml UNSCH PRN FLUSH 11/12/16 15:45 (NS Flush) 2 ml BID FLUSH 11/12/16 21:00 11/12/16 21:14 (Zofran Inj) 4 mg Q6H PRN IVP 11/12/16 15:45 (Narcan Inj) 0.4 mg UNSCH PRN IV 11/12/16 15:45 (Phoslo) 667 mg TID PO 11/12/16 18:00 11/12/16 21:13 (Vitamin D3) 5,000 units DAILY PO 11/13/16 09:00 (Lasix) 40 mg sututhsa PO 11/12/16 18:00 (Flomax) 0.4 mg HS PO 11/12/16 21:00 11/12/16 21:13 (D50w (Vial) Inj) 25 ml UNSCH PRN IV PUSH 11/12/16 18:00 Glucagon 1 mg 1 mg UNSCH PRN OTHER 11/12/16 18:00 (NS 1000 ml Inj) 1,000 ml @ 0 mls/hr Q0M PRN IV 11/13/16 08:45 Heparin Sodium (Porcine) 8000 units 8,000 units UNSCH PRN IVF 11/13/16 08:45 Sodium Chloride 1,000 ml @ 200 mls/hr Q5H PRN IV 11/13/16 08:45 (NS 1000 ml Inj) 1,000 ml @ 0 mls/hr Q0M PRN IV 11/13/16 08:45 (Mannitol Inj) 12.5 gm UNSCH PRN IV 11/13/16 08:45 (Albumin 25% Inj) 25 gm UNSCH PRN IV 11/13/16 08:45 (NS Flush) 5 ml UNSCH PRN IVF 11/13/16 08:45 (Heparin Inj) UNSCH PRN .XX 11/13/16 08:45 (Gentamicin (Dialysis) Inj) 20 mg UNSCH PRN IV 11/13/16 08:45 (Zofran Inj) 4 mg UNSCH PRN IV 11/13/16 08:45 (Tylenol) 650 mg UNSCH PRN PO 11/13/16 08:45 (Benadryl) 25 mg UNSCH PRN PO 11/13/16 08:45 (Nitrostat Sl) 0.4 mg UNSCH PRN SL 11/13/16 08:45 (Catapres) 0.1 mg UNSCH PRN PO 11/13/16 08:45 (Epogen Inj) 10,000 units UNSCH PRN IV 11/13/16 08:45 (Gelfoam 12 Mm/7 Mm Top) 1 foam UNSCH PRN TOP 11/13/16 08:45 Family History No hx of renal disorders Social History , lives with in [place], [place] no smoking hx no use of ETOH or illicit substances ambulatory 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 (Ana Hodgson) Physical Exam Vital Signs Vital Signs Date Time Temp Pulse Resp B/P Pulse Ox O2 Delivery O2 Flow Rate FiO2 11/13/16 08:00 97.6 83 18 109/58 97 11/13/16 04:00 96.0 85 20 119/68 98 11/13/16 00:00 96.2 84 20 119/65 100 11/12/16 21:57 21 11/12/16 20:00 96.0 89 20 121/74 99 11/12/16 18:30 97.6 85 13 122/68 100 Room Air 11/12/16 18:00 81 14 123/68 100 Room Air 11/12/16 17:00 87 12 127/78 100 Room Air 11/12/16 16:30 78 12 119/69 100 Room Air 11/12/16 16:00 78 14 120/75 97 Room Air 11/12/16 15:45 83 13 121/75 96 Room Air 11/12/16 15:30 82 12 112/77 96 Room Air 11/12/16 15:15 97.3 96 12 111/69 98 Room Air 11/12/16 15:00 79 12 113/53 100 Room Air 11/12/16 14:45 84 18 103/55 99 Room Air 11/12/16 14:30 77 12 85/50 95 Room Air 11/12/16 14:15 86 12 91/51 92 Room Air 11/12/16 14:00 87 13 89/53 96 Room Air 11/12/16 13:45 86 12 85/45 98 Room Air 11/12/16 13:30 90 13 82/45 99 Room Air 11/12/16 13:15 110 14 97/51 100 Room Air 11/12/16 13:13 97.4 108 16 86/54 100 Simple Mask 6 Physical Exam Young appearing AAM lying in bed, awake/alert no neuro deficit Lungs: clear in all newman CV: S1/S2, regular rate, no murmurs Abd: soft, non tender normal bowel sounds Ext: thick skin, chronic changes; pulses 2+ PD/DP; right arm s/p AVF creation, dressing in place, no drainage, good thrill/bruit; no extremity edema Permcath left IJ Laboratory Laboratory Tests Test 11/12/16 11/12/16 11/12/16 12:46 17:15 18:23 Blood Gas Puncture Site DRAWN IN OR Blood Gas Patient Temperature 98.6 Blood Gas HCO3 20 Blood Gas Base Excess -5.4 Blood Gas Oxygen Saturation 97 Arterial Blood pH 7.30 Arterial Blood Partial 41 Pressure CO2 Arterial Blood Partial 244 Pressure O2 Arterial Blood Oxygen Content 14.8 Arterial Blood 1.6 Carboxyhemoglobin Arterial Blood Methemoglobin 0.9 Blood Gas Hemoglobin 10.4 Oxygen Delivery Device OR White Blood Count 6.6 Red Blood Count 3.84 Hemoglobin 10.1 Hematocrit 32.4 Mean Corpuscular Volume 84.4 Mean Corpuscular Hemoglobin 26.4 Mean Corpuscular Hemoglobin 31.3 Concent Red Cell Distribution Width 21.4 Platelet Count 329 Mean Platelet Volume 7.4 Neutrophils (%) (Auto) 86.3 Lymphocytes (%) (Auto) 11.8 Monocytes (%) (Auto) 1.4 Eosinophils (%) (Auto) 0.0 Basophils (%) (Auto) 0.5 Neutrophils # (Auto) 5.7 Lymphocytes # (Auto) 0.8 Monocytes # (Auto) 0.1 Eosinophils # (Auto) 0.0 Basophils # (Auto) 0.0 CBC Comment DIFF FINAL Differential Comment Sodium Level 133 Potassium Level 5.8 Chloride Level 100 Carbon Dioxide Level 24.9 Anion Gap 8 Blood Urea Nitrogen 63 Creatinine 9.45 Estimat Glomerular Filtration 7 Rate Random Glucose 193 Calcium Level 9.0 (Ana Hodgson) Result Diagram: 11/12/16 1715 11/12/16 1823 Assessment and Plan Problem List: (1) ESRD (end stage renal disease) on dialysis Plan: we will dialyze today as he is hyperkalemic normally on M-W-F schedule has permcath for dialysis continue Epogen for anemia of chronic disease protect right arm, keep dressing in place for now he is not on phosphate binders, check phosphorus level recheck K in am if still admitted monitor BP, it has improved, he is not on antihypertensive medications he has existing outpatient dialysis arrangements (2) AVF (arteriovenous fistula) Plan: vascular has cleared for discharge will follow up outpatient for evaluation/may require additional procedures (3) DM (diabetes mellitus) type II controlled with renal manifestation Plan: continue insulin therapy (4) Hyperkalemia, diminished renal excretion Plan: dialysis today as above (Ana Hodgson) Assessment and Plan patient was seen and examined. Agree with above assessment and plan. He has hyperkalemia, should improve with dialysis. He can be discharged after dialysis. (Roberth He MD) Ana Hodgson Nov 13, 2016 10:19 Roberth He MD Nov 14, 2016 09:01
--- NOTE | 2016-11-13 14:10 | HHI.PR ---
Subjective Remarks Patient seen after dialysis. He reports that he is feeling well. No lightheadedness or heart palpitations. His blood pressure has been stable. He' s been cleared for discharge. Objective Vitals Vital Signs Date Time Temp Pulse Resp B/P Pulse Ox O2 Delivery O2 Flow Rate FiO2 11/13/16 08:00 97.6 83 18 109/58 97 11/13/16 04:00 96.0 85 20 119/68 98 11/13/16 00:00 96.2 84 20 119/65 100 11/12/16 21:57 21 11/12/16 20:00 96.0 89 20 121/74 99 11/12/16 18:30 97.6 85 13 122/68 100 Room Air 11/12/16 18:00 81 14 123/68 100 Room Air 11/12/16 17:00 87 12 127/78 100 Room Air 11/12/16 16:30 78 12 119/69 100 Room Air 11/12/16 16:00 78 14 120/75 97 Room Air 11/12/16 15:45 83 13 121/75 96 Room Air 11/12/16 15:30 82 12 112/77 96 Room Air 11/12/16 15:15 97.3 96 12 111/69 98 Room Air 11/12/16 15:00 79 12 113/53 100 Room Air 11/12/16 14:45 84 18 103/55 99 Room Air 11/12/16 14:30 77 12 85/50 95 Room Air 11/12/16 14:15 86 12 91/51 92 Room Air I/O 11/12/16 11/12/16 11/12/16 11/13/16 11/13/16 11/13/16 07:00 15:00 23:00 07:00 15:00 23:00 Intake Total 400 ml 270 ml 240 ml Output Total 50 ml 100 ml 250 ml 3000 ml Balance 350 ml 170 ml -10 ml -3000 ml Intake Oral 100 ml 270 ml 240 ml IV Total 0 ml 0 ml Other 300 ml Output Urine Total 100 ml 250 ml Hemodialysis 3000 ml Estimated Blood Loss 50 ml # Bowel Movements 0 0 Result Diagram: 11/12/16 1715 11/12/16 5493 Objective Remarks GENERAL: This is a well-nourished, well-developed patient, in no apparent distress. CARDIOVASCULAR: Normal rate and regular rhythm without murmurs, gallops, or rubs. RESPIRATORY: Good respiratory efforts. Breath sounds equal and clear to auscultation bilaterally. GASTROINTESTINAL: Abdomen soft, non-tender, non-distended. Normal active bowel sounds MUSCULOSKELETAL: Right upper extremity in a sling. Postop AV fistula NEURO: Alert & Oriented x4 to person, place, time, situation. Moves all ext x4 PSYCH: Appropriate mood and affect. A/P Problem List: (1) Hypotension ICD Code: I95.9 Status: Resolved Assessment and Plan 71-year-old male initially admitted for AV fistula placement. The patient had an episode of vomiting and subsequently was put under general anesthesia. He had episodes of hypotension postop and was admitted for observation. The patient responded well to IV fluid. His blood pressure normalized and he is discharged back home in stable condition to resume his chronic home medications. 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 Purvi Malcolm MD Nov 13, 2016 14:10
--- NOTE | 2016-11-13 22:40 | EKG ---
Date Performed: 11/12/2016 Time Performed: 16:25:53 PTAGE: 71 years EKG: Sinus rhythm NORMAL ECG PREVIOUS TRACING : 11/05/2016 06.49 Compared to prior tracing no significant change DOCTOR: Glenroy Woody Interpretating Date/Time 11/13/2016 22:40:08
== END 2016-11-13 14:37 | disposition home or self-care (01) ==
LOC: HSDC 08:13 → HSDI 15:47 → N07B 18:59
PROVIDERS: ADMIT Surgery; ATTEND Surgery
DX: N18.6 End stage renal disease (principal); I12.0 Hypertensive chronic kidney disease with stage 5 chronic kidney disease or end stage renal disease; D63.1 Anemia in chronic kidney disease; E11.22 Type 2 diabetes mellitus with diabetic chronic kidney disease; E87.5 Hyperkalemia; I95.81 Postprocedural hypotension; I73.9 Peripheral vascular disease, unspecified; K21.9 Gastro-esophageal reflux disease without esophagitis; N40.1 Benign prostatic hyperplasia with lower urinary tract symptoms; R33.8 Other retention of urine; Z79.4 Long term (current) use of insulin; Z86.718 Personal history of other venous thrombosis and embolism; Z99.2 Dependence on renal dialysis; Z79.01 Long term (current) use of anticoagulants
CPT/HCPCS: 01844; 36819; 64415; 76937; 80048; 82805; 82948; 84132; 85025; 86850; 86900; 86901; 93005; 93306; 96374; 96375; G0257; G0378; J1580; J1644; J1815; J1940; J2250; J2370; J2720; J2795; J3370; Q4081; 90935

== ENCOUNTER 2017-01-28 06:12 | Day surgery (SDC) | payer OTHER, MEDICAID ==
[~2017-01-28] VITALS: Ht 175.3 cm; Wt 123.2 kg
[~2017-01-28 06:12] MED LIST changes: +DIALCAP PO
[2017-01-28 07:07] LABS: BASOPHIL # 0.1 TH/MM3 (0-0.2); BASOPHIL % 1.1 % (0.0-2.0); EOSINOPHIL # 0.2 TH/MM3 (0-0.4); EOSINOPHIL % 2.8 % (0.0-4.0); HEMATOCRIT 33.4 % (39.0-51.0); HEMO FLAGS DIFF FINAL; LYMPH % 45.9 % (9.0-44.0); LYMPHOCYTE # 3.2 TH/MM3 (1.0-4.8); MEAN CELL VOLUME 83.9 FL (80.0-100.0); MEAN CORPUSCULAR HEMOGLOBIN 27.7 PG (27.0-34.0); MONO % 7.7 % (0.0-8.0); NEUT % 42.5 % (16.0-70.0); PLATELET COUNT 229 TH/MM3 (150-450); RED BLOOD COUNT 3.98 MIL/MM3 (4.50-5.90); RED CELL DISTRIBUTION WIDTH 18.3 % (11.6-17.2)
[2017-01-28 07:15] LABS: PROTHROMBIN TIME - PATIENT 11.3 SEC (9.8-11.6)
[2017-01-28 07:20] LABS: BICARBONATE 28.3 MEQ/L (21.0-32.0); POTASSIUM 4.2 MEQ/L (3.5-5.1)
[2017-01-28 07:21] VITALS: BP 101/69; PULSE 93; RESP 18; TEMP 97.9; O2SAT 99
[2017-01-28] MEDS ORDERED: INSU100V SQ (07:26)
[2017-01-28] MEDS ORDERED: MIDAZOLAM HCL 5 MG/5 ML VIAL ONE (10:29)
[2017-01-28] MEDS ORDERED: HEPARIN SODIUM - IV 10,000 UNITS/10 ML VIAL ONE (10:29)
[2017-01-28] MEDS ORDERED: HEPARIN-NS/PF INJ 500 ML ONE (10:29)
[2017-01-28] MEDS ORDERED: CLOPIDOGREL 300 MG TAB ONE (12:47)
[2017-01-28] MEDS ORDERED: ASPIRIN 81 MG CHEW TAB ONE (12:47)
[2017-01-28] MEDS ORDERED: IOHEXOL 350 MG/ML 100 ML BTL (for Cath Lab) OTHER ONE (14:10)
--- NOTE | 2017-01-28 14:16 | MA ---
cc: PETE ORDAZ DATE: 01/28/2017 PREOPERATIVE DIAGNOSIS Right upper extremity a non maturing AV fistula the previously created brachiocephalic AV fistula. 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 SURGEON: Pete Ordaz DO. PROCEDURE The patient's right upper extremity was prepped and n sterile fashion after being under moderate sedation. I got access to the right upper extremity basilic vein using duplex ultrasound and advanced my needle towards the antecubital fossa, with a 21-gauge needle exchanged over a thin wire and exchanged for a 4 Greenlandic micropuncture catheter. I then shot a fistulogram of the right upper extremity which showed that there was stenosis just distal to the anastomosis of the outflow basilic vein. It was a short length approximately 2 cm, it should be noted that blood flow was distally in the radial artery appeared to be patent and anastomosis was patent. The outflow basilic vein was patent and the right subclavian vein as it met with the internal jugular vein, had what appeared to be a high-grade stenosis versus chronic total occlusion. We did heparinize the patient a total of 5000 units heparin during the case. I performed balloon angioplasty of the outflow basilic vein and an acceptable result after performing angioplasty with no flow-limiting elastic recoil and no flow limiting stenosis. I then advanced needle under ultrasound towards the basilic vein towards the shoulder. First I was able to cross a with a stiff angle Glidewire and a quick cross catheter across the right subclavian vein. Once I was able to get across this and then exchanged for a 5 x 40 mm Conquest balloon to pre dilate to the lesion between the subclavian into the innominate vein. I then subsequently attempted with a 8 and then a 10 x 40-mm ana Conquest balloon to treat this lesion, there was still residual recoil and there was still a significant stenosis after both of these attempts. Based on this I did place a 10 x 40 mm Luminex stent that extended from the right subclavian vein into the right internal jugular innominate vein. After I did this, it did resolve the narrowing and it was distinctly patent. I did balloon dilate the stent as well and this revealed no wheezing. Afterwards there was a good flow through the outflow subclavian vein. At the end of the procedure I used a two 2-0 Vicryl stitches in order to pursestring the entry sites and applied dry dressing. The patient tolerated procedure well. DO Mauro Colon /12:56 PM /1:55 PM CHE
--- NOTE | 2017-01-29 14:35 | EKG ---
Date Performed: 01/28/2017 Time Performed: 07:03:22 PTAGE: 71 years EKG: Sinus tachycardia with PAC(s) with borderline 1st degree A-V block Poor R wave progression - probable normal variant Low QRS voltages in precordial leads Compared to previous tracing the patie nt is now tachycardic Borderline ECG PREVIOUS TRACING : 11/12/2016 16.25 DOCTOR: Sarahy Jasso Interpretating Date/Time 01/29/2017 14:33:59
== END 2017-01-28 15:20 | disposition home or self-care (01) ==
LOC: HDOC 06:12 → HDIC 06:12 → HDOC 15:20
PROVIDERS: ATTEND Surgery
DX: Z45.2 Encounter for adjustment and management of vascular access device (principal); N18.9 Chronic kidney disease, unspecified; R00.0 Tachycardia, unspecified; T82.858A Stenosis of other vascular prosthetic devices, implants and grafts, initial encounter
CPT/HCPCS: 37236; 37248; 75820; 80048; 85025; 85610; 93005; C1725; C1751; C1769; C1876; C1887; C1893; J1644; J2250; J3010; Q9967

== ENCOUNTER → 2017-02-25 | Day surgery (SDC) | payer MEDICAID, OTHER ==
[~2017-02-25] VITALS: Ht 176.5 cm; Wt 124.3 kg
[~2017-02-25] MED LIST changes: +*morphine SULFATE 8 MG/ML PERIprocedure ONLY ONE; +BUPIVACAINE/EPINEPHRINE 0.5% 50 ML VIAL ONE; +CHLORHEXIDINE GLUCONATE 2 % 1 PACK (2 CLOTHS) TOPICAL PRN; -DIALCAP PO; +DO NOT ADM ANY ANTICOAGULANT DRUGS PRN; +GELFOAM SIZE 100 ONE; +HEPARIN SODIUM - IV 10,000 UNITS/10 ML VIAL ONE; +Hemodialysis Vas Access Cath PRN NS Lock Flush IV FLUSH; +INSU100V SQ; +INSULIN HUMAN REGULAR 1,000 UNITS/10 ML VIAL SQ PRN; +LACTATED RINGER'S 1000 ML IV PRN; -LEVEMIR SQ; +METOPROLOL TARTRATE 25 MG TAB PO PRN; +MORPHINE SULFATE 4 MG/ML INJ IV PRN; +ONDANSETRON HCL 4 MG/2 ML VIAL IV PUSH ONE; +ONDANSETRON HCL 4 MG/2 ML VIAL IV PUSH PRN; +PHENYLEPH/NS 1000 MCG/10 ML SYR IV ONE; +POVIDONE IODINE 5% (ANTISEPSIS KIT) 4 APPLICATIONS EACH NARE PRN; +PROPOFOL 200 MG/20 ML AMP IV ONE; +PROTAMINE SULFATE 50 MG/5 ML VIAL ONE; +SODIUM CHLOR 0.9% 250 ML INJ 250 ML IV ONE; +SODIUM CHLORID 0.9% 500 ML INJ 500 ML IV ONE; +SODIUM CHLORID 0.9% 500 ML IV PRN; +SODIUM CHLORIDE 0.9% FLUSH 10 ML FLUSH IV FLUSH PRN; +SODIUM CHLORIDE 0.9% FLUSH 10 ML FLUSH IV FLUSH SCH; +SUGAMMADEX SODIUM 200 MG/2 ML VIAL IV PUSH ONE; -TAMS0.4C4 PO; +THROMBIN (TOPICAL) 5,000 UNIT VIAL ONE; +VANCOMYCIN HCL 1000 MG VIAL ONE; +fentaNYL CITRATE 250 MCG/5 ML AMP ONE
[2017-02-25 06:47] VITALS: BP 108/68; PULSE 87; RESP 16; TEMP 98.1; O2SAT 97
[2017-02-25] MEDS: HEPARIN SODIUM - IV 10,000 UNITS/10 ML VIAL ONE ×2 (07:18→08:32)
[2017-02-25] MEDS: Hemodialysis Vas Acc Cath PRN Heparin 1000 unit/ml Flush IV FLUSH ×2 (07:25→15:50)
[2017-02-25 07:37] LABS: AUTOMATED NEUTROPHIL # 3.2 TH/MM3 (1.8-7.7); BASOPHIL # 0.1 TH/MM3 (0-0.2); BASOPHIL % 0.7 % (0.0-2.0); EOSINOPHIL # 0.2 TH/MM3 (0-0.4); EOSINOPHIL % 2.3 % (0.0-4.0); HEMATOCRIT 33.6 % (39.0-51.0); HEMO FLAGS DIFF FINAL; LYMPH % 41.9 % (9.0-44.0); MEAN CELL VOLUME 85.1 FL (80.0-100.0); MEAN CORPUSCULAR HEMOGLOBIN 27.4 PG (27.0-34.0); MEAN CORPUSCULAR HGB CONC 32.3 % (32.0-36.0); MONO % 11.2 % (0.0-8.0); NEUT % 43.9 % (16.0-70.0); PLATELET COUNT 184 TH/MM3 (150-450); RED BLOOD COUNT 3.94 MIL/MM3 (4.50-5.90); RED CELL DISTRIBUTION WIDTH 19.3 % (11.6-17.2); WHITE BLOOD COUNT 7.2 TH/MM3 (4.0-11.0)
--- NOTE | 2017-02-25 07:53 | RADRPT ---
EXAM DATE/TIME: 02/25/2017 07:16 [facility] COMPARISON: CHEST SINGLE AP, November 05, 2016, 6:26. INDICATIONS : Evaluate for pneumonia, pneumothorax, and communicable disease. Pre-op for A/V fistula surgery. MEDICAL HISTORY : Renal failure, chronic. SURGICAL HISTORY : None. ENCOUNTER: Initial ACUITY: 1 day PAIN SCORE: 0/10 LOCATION: chest FINDINGS: A single view of the chest demonstrates the lungs to be symmetrically aerated without evidence of mas s, infiltrate or effusion. The cardiomediastinal contours are unremarkable. Osseous structures are intact. A right subclavian vascular stent is now seen. A left internal jugular tunneled double-lumen dialysis catheter is again seen, distal tip in the right atrium. CONCLUSION: No evidence of acute cardiopulmonary disease. Tunneled dialysis catheter on the left and a right subc lavian vascular stent are present. Jordan Nava MD on February 25, 2017 at 7:49 Board Certified Radiologist. This report was verified electronically.
[2017-02-25 07:54] LABS: BICARBONATE 23.5 MEQ/L (21.0-32.0)
--- NOTE | 2017-02-25 13:23 | MP ---
cc: PETE ORDAZ DATE OF SURGERY 02/25/2017 PREOPERATIVE DIAGNOSES End-stage renal disease. History of right upper extremity brachiobasilic A-V fistula. SURGEON Dr. Ordaz PROCEDURE Right upper extremity brachiobasilic A-V fistula transposition. IV FLUIDS Approximately 1 liter. ESTIMATED BLOOD LOSS 200 cc URINE OUTPUT Not calculated. COMPLICATIONS None. DISPOSITION To PACU. PROCEDURE The patient's right upper extremity was prepped and draped in a sterile fashion after being given 1 gram of IV Ancef. The patient had an incision made over the medial aspect of the right upper extremity with a scalpel and electrocautery. I dissected down. It should be noted that the patient had multiple varicosities in the subcutaneous space which were treated with small/medium clips and electrocautery as needed. I dissected down to the basilic vein and mobilized it. I tied off any side branches using 2-0 silks and small/medium clips as needed. I marked the vein anteriorly and mobilized it from just above the antecubital fossa all the way up towards the axilla. I then disconnected it proximally and divided the stump with a 5-0 Prolene in a continuous running fashion. I irrigated the vein and then I tunneled it using a Sunita clamp subcutaneously laterally. I made sure not to twist the vessel as I pulled it through the tract. I did mobilize the brachial artery a little bit more proximally than the previous anastomosis and placed pediatric profunda clamps around it proximally and distally. I gave the patient 3,000 units heparin and occluded the vessel. It should be noted that I used an 11 blade and Farrell scissors and made my arteriotomy. I performed an end-to-side anastomosis and there was a good thrill in the fistula at the end of the case and there were signals in the radial and ulnar artery that did not change with compression of the basilic vein. I used Surgicel as needed to approximate the anastomosis in the distal tract. I closed in layers with many interrupted 2-0 Vicryl and 3-0 Vicryl absorbable sutures. I used two 4-0 Monocryl for the skin and Dermabond. I wrapped the arm with Kerlix and an Kai bandage. The patient tolerated the procedure well. DO REJI Colon/LAITH /11:43 AM /1:15 PM
[2017-02-25 14:50] VITALS: PULSE 67; RESP 16; TEMP 97.4; O2SAT 97
[2017-02-25 15:55] VITALS: BP 112/68
== END | disposition home or self-care (01) ==
LOC: HSDC 06:15
PROVIDERS: ATTEND Surgery
DX: I12.0 Hypertensive chronic kidney disease with stage 5 chronic kidney disease or end stage renal disease (principal); N18.6 End stage renal disease; E11.9 Type 2 diabetes mellitus without complications; Z79.4 Long term (current) use of insulin; Z99.2 Dependence on renal dialysis; Z01.818 Encounter for other preprocedural examination
CPT/HCPCS: 01844; 36819; 71010; 76937; 80048; 82948; 85025; 86850; 86900; 86901; J1644; J1815; J2270; J2370; J2405; J3010; J3370; J7040; J7050; J2720

== ENCOUNTER 2017-04-10 10:04 | Day surgery (SDC) | payer OTHER ==
[~2017-04-10] VITALS: Ht 175.3 cm; Wt 127.7 kg
[~2017-04-10 10:04] MED LIST changes: -*morphine SULFATE 8 MG/ML PERIprocedure ONLY ONE; -BUPIVACAINE/EPINEPHRINE 0.5% 50 ML VIAL ONE; -CHLORHEXIDINE GLUCONATE 2 % 1 PACK (2 CLOTHS) TOPICAL PRN; -DO NOT ADM ANY ANTICOAGULANT DRUGS PRN; -GELFOAM SIZE 100 ONE; -HEPARIN SODIUM - IV 10,000 UNITS/10 ML VIAL ONE; -Hemodialysis Vas Access Cath PRN NS Lock Flush IV FLUSH; -INSULIN HUMAN REGULAR 1,000 UNITS/10 ML VIAL SQ PRN; -LACTATED RINGER'S 1000 ML IV PRN; -METOPROLOL TARTRATE 25 MG TAB PO PRN; -MORPHINE SULFATE 4 MG/ML INJ IV PRN; -ONDANSETRON HCL 4 MG/2 ML VIAL IV PUSH ONE; -ONDANSETRON HCL 4 MG/2 ML VIAL IV PUSH PRN; -PHENYLEPH/NS 1000 MCG/10 ML SYR IV ONE; -POVIDONE IODINE 5% (ANTISEPSIS KIT) 4 APPLICATIONS EACH NARE PRN; -PROPOFOL 200 MG/20 ML AMP IV ONE; -PROTAMINE SULFATE 50 MG/5 ML VIAL ONE; -SODIUM CHLOR 0.9% 250 ML INJ 250 ML IV ONE; -SODIUM CHLORID 0.9% 500 ML INJ 500 ML IV ONE; -SODIUM CHLORID 0.9% 500 ML IV PRN; -SODIUM CHLORIDE 0.9% FLUSH 10 ML FLUSH IV FLUSH PRN; -SODIUM CHLORIDE 0.9% FLUSH 10 ML FLUSH IV FLUSH SCH; -SUGAMMADEX SODIUM 200 MG/2 ML VIAL IV PUSH ONE; -THROMBIN (TOPICAL) 5,000 UNIT VIAL ONE; -VANCOMYCIN HCL 1000 MG VIAL ONE; -fentaNYL CITRATE 250 MCG/5 ML AMP ONE
[2017-04-10 10:27] VITALS: BP 135/74; PULSE 79; RESP 18; TEMP 97.9; O2SAT 99
[2017-04-10 10:59] LABS: AUTOMATED NEUTROPHIL # 1.7 TH/MM3 (1.8-7.7); BASOPHIL % 0.9 % (0.0-2.0); EOSINOPHIL # 0.2 TH/MM3 (0-0.4); HEMATOCRIT 30.1 % (39.0-51.0); HEMO FLAGS DIFF FINAL; LYMPH % 47.8 % (9.0-44.0); LYMPHOCYTE # 2.3 TH/MM3 (1.0-4.8); MEAN CELL VOLUME 89.3 FL (80.0-100.0); MEAN CORPUSCULAR HEMOGLOBIN 28.7 PG (27.0-34.0); MEAN CORPUSCULAR HGB CONC 32.1 % (32.0-36.0); MONO % 12.1 % (0.0-8.0); NEUT % 35.2 % (16.0-70.0); PLATELET COUNT 199 TH/MM3 (150-450); RED BLOOD COUNT 3.37 MIL/MM3 (4.50-5.90); WHITE BLOOD COUNT 4.8 TH/MM3 (4.0-11.0)
[2017-04-10 11:19] LABS: BICARBONATE 25.3 MEQ/L (21.0-32.0)
== END 2017-04-10 12:33 | disposition home or self-care (01) ==
LOC: HDOC 10:04 → HDIC 10:05 → HDOC 12:33
PROVIDERS: ATTEND Surgery
DX: N18.6 End stage renal disease (principal); E11.65 Type 2 diabetes mellitus with hyperglycemia; Z79.4 Long term (current) use of insulin; Z99.2 Dependence on renal dialysis; Z01.818 Encounter for other preprocedural examination
CPT/HCPCS: 80048; 85025

== ENCOUNTER 2017-04-10 12:46 | Inpatient (IN) | payer OTHER, MEDICARE ==
[~2017-04-10] VITALS: Ht 175.3 cm; Wt 63.4 kg
[2017-04-10 12:48] VITALS: BP 130/70; PULSE 72; RESP 20; TEMP 97.3; O2SAT 97
[2017-04-10 13:24] VITALS: RESP 17; O2SAT 100
[2017-04-10] MEDS ORDERED: SODIUM CHLORIDE 0.9% FLUSH 10 ML FLUSH IVF PRN (13:30)
[2017-04-10] MEDS ORDERED: INSULIN HUMAN REGULAR 1,000 UNITS/10 ML VIAL IV PUSH ONE ×2 (13:30→15:00)
[2017-04-10 13:47] LABS: AUTOMATED NEUTROPHIL # 1.8 TH/MM3 (1.8-7.7); BASOPHIL # 0.1 TH/MM3 (0-0.2); BASOPHIL % 1.1 % (0.0-2.0); EOSINOPHIL # 0.2 TH/MM3 (0-0.4); HEMATOCRIT 30.5 % (39.0-51.0); HEMO FLAGS DIFF FINAL; LYMPH % 43.8 % (9.0-44.0); LYMPHOCYTE # 2.1 TH/MM3 (1.0-4.8); MEAN CELL VOLUME 89.6 FL (80.0-100.0); MEAN CORPUSCULAR HEMOGLOBIN 28.3 PG (27.0-34.0); MEAN CORPUSCULAR HGB CONC 31.6 % (32.0-36.0); MONO % 13.5 % (0.0-8.0); NEUT % 36.6 % (16.0-70.0); PLATELET COUNT 187 TH/MM3 (150-450); RED CELL DISTRIBUTION WIDTH 15.8 % (11.6-17.2); WHITE BLOOD COUNT 4.8 TH/MM3 (4.0-11.0)
[2017-04-10 14:05] LABS: ANION GAP 9 MEQ/L (5-15)
[2017-04-10 14:09] LABS: ALKALINE PHOSPHATASE 98 U/L (45-117); ALT (GPT) 16 U/L (12-78); AST (GOT) 16 U/L (15-37); BETA-HYDROXYBUTYRATE 0.18 MMOL/L (0.00-0.39); BICARBONATE 26.5 MEQ/L (21.0-32.0); BLOOD UREA NITROGEN 46 MG/DL (7-18); CHLORIDE 94 MEQ/L (98-107); GLOMERULAR FILTRATION RATE 8 ML/MIN (>89); MAGNESIUM 1.6 MG/DL (1.5-2.5); POTASSIUM 4.2 MEQ/L (3.5-5.1); SODIUM (NA) 129 MEQ/L (136-145); TOTAL BILIRUBIN ADULT 0.3 MG/DL (0.2-1.0)
[2017-04-10 14:35] VITALS: BP 144/84; PULSE 79; RESP 16; TEMP 97.8; O2SAT 100
[2017-04-10 14:37] LABS: BACTERIA, URINE FEW /hpf; BLOOD, URINE MOD (NEG); COMMENT (UR) CULTURE INDICATED; CULTURE IF INDICATED CULTURE INDICATED; GLUCOSE,URINE 1000 mg/dL (NEG); KETONE, URINE NEG (NEG); NITRITE,URINE NEG (NEG); SQUAMOUS EPITHELIAL CELL URINE <1 /hpf (0-5); TRANSITIONAL EPI CELLS, URINE <1 /hpf; URINE COLOR YELLOW (YELLW/STRAW)
--- NOTE | 2017-04-10 14:47 | PD ---
HPI Chief Complaint: Diabetic Time Seen by Provider: 13:02 Travel History International Travel<30 days: No Contact w/Intl Traveler<30days: No Traveled to known affect area: No History of Present Illness HPI The patient 72 years old. He was going to undergo a right upper extremity AV fistula surgery by Dr. Luong today. In the preoperative evaluation around his fingerstick glucose was 700. Consequently the surgery was deferred he was sent here for blood glucose management. He has no medical complaint however notes he has been missing his glucometer at home for the past couple days has been unable to check his blood glucose for that reason. The patient is end- stage renal disease and undergoes dialysis Friday and has been compliant with scheduled HD. Location endocrine. Timing constant. PFSH Past Medical History Hx Anticoagulant Therapy: Yes (ELIQUIS) Cancer: Yes (prostate) Cardiovascular Problems: Yes Diabetes: Yes Patient Takes Glucophage: No Diminished Hearing: No Endocrine: Yes Gastrointestinal Disorders: Yes (acid reflux) Genitourinary: Yes (enlarged prostate) Hepatitis: No Hiatal Hernia: No Hypertension: No Immune Disorder: No Implanted Vascular Access Dvce: Yes Medical other: Yes (esrd on hemodialysis) Musculoskeletal: Yes (arthritis right leg) Neurologic: Yes (tingling in r arm and leg for greater than one month) Psychiatric: No Respiratory: No Thyroid Disease: No Tetanus Vaccination: < 5 Years Influenza Vaccination: Yes Past Surgical History Abdominal Surgery: No AICD: No Body Medical Devices: vas cath left chest, boyle cath, cardiac stent Cardiac Surgery: Yes (cardiac stent) Ear Surgery: No Endocrine Surgery: No Eye Surgery: No Genitourinary Surgery: Yes (prostate surgery-unk what kind per ) Gynecologic Surgery: No Joint Replacement: No Oral Surgery: No Pacemaker: No Thoracic Surgery: No Other Surgery: Yes Social History Alcohol Use: No Tobacco Use: No (pt denies) Substance Use: No (pt denies) Allergies-Medications (Allergen,Severity, Reaction): Coded Allergies: No Known Allergies (Verified , 04/10/17) Reported Meds & Prescriptions Reported Meds & Active Scripts Active Reported Humalog Mix 75-25 Inj (Insulin Lispro Protam/Lispro Human) 1,000 Unit/10 Ml Susp 1 Units SQ Lantus Inj (Insulin Glargine) 1,000 Unit/10 Ml Vial 8 Units SQ HS Eliquis (Apixaban) 2.5 Mg Tab 2.5 Mg PO BID Pantoprazole (Pantoprazole Sodium) 40 Mg Tab 40 Mg PO DAILY Renal Vitamin (B-Complex W/ C & Folic Acid) 1 Cap 1 Cap PO DAILY If on dialysis, take after treatment. Calcium Acetate (Phosphate Binder) 667 Mg Tab 667 Mg PO TID Furosemide 40 Mg Tab 40 Mg PO SUTUTHSA Review of Systems Except as stated in HPI: all other systems reviewed are Neg Physical Exam Narrative GENERAL: 72 yo M, WNWD, NAD SKIN: Warm and dry. RUE with healing incision approx 15cm long by 3cm wide with some adjacent warmth without tenderness/erythema/discharge. HEAD: Atraumatic. Normocephalic. EYES: Pupils equal and round. No scleral icterus. No injection or drainage. ENT: No nasal bleeding or discharge. Mucous membranes pink and moist. NECK: Trachea midline. No JVD. CARDIOVASCULAR: Regular rate and rhythm. RESPIRATORY: No accessory muscle use. Clear to auscultation. Breath sounds equal bilaterally. GASTROINTESTINAL: Abdomen soft, non-tender, nondistended. Hepatic and splenic margins not palpable. MUSCULOSKELETAL: Extremities without clubbing, cyanosis, or edema. No obvious deformities. Minimal edema x all extremities 2+. NEUROLOGICAL: Awake and alert. No obvious cranial nerve deficits. Motor grossly within normal limits. Five out of 5 muscle strength in the arms and legs. Normal speech. PSYCHIATRIC: Appropriate mood and affect; insight and judgment normal. Data Data Last Documented VS Vital Signs Date Time Temp Pulse Resp B/P Pulse Ox O2 Delivery O2 Flow Rate FiO2 04/10/17 14:35 97.8 79 16 144/84 100 Room Air VS reviewed Orders Complete Blood Count With Diff (04/10/17 13:18) Comprehensive Metabolic Panel (04/10/17 13:18) Magnesium (Mg) (04/10/17 13:18) Phosphorus (Po4) (04/10/17 13:18) Beta Hydroxybutyrate (Acetone) (04/10/17 13:18) Osmolality,Serum (04/10/17 13:18) Urinalysis - C+S If Indicated (04/10/17 13:18) Blood Glucose (04/10/17 13:18) Blood Glucose (04/10/17 14:18) Ecg Monitoring (04/10/17 13:18) Iv Access Insert/Monitor (04/10/17 13:18) Oximetry (04/10/17 13:18) NPO (04/10/17 13:18) Sodium Chloride 0.9% Flush (Ns Flush) (04/10/17 13:30) Insulin Human Regular Inj (Novolin R Inj (04/10/17 13:30) Urine Culture (04/10/17 14:00) Ceftriaxone Inj (Rocephin Inj) (04/10/17 15:00) Insulin Human Regular Inj (Novolin R Inj (04/10/17 15:00) Admit To Inpatient (04/10/17 ) Manager Analysis / Telemetry BENNETT.Q8H (04/10/17 16:03) ^ Insert Iv (04/10/17 16:03) ^ Teach Patient (04/10/17 16:03) Diet Npo (04/10/17 Dinner) Bedside Glucose BENNETT.Q1H (04/10/17 16:03) Sodium Chlor 0.9% 1000 Ml Inj (Ns 1000 M (04/10/17 17:00) Dext 5%-Nacl 0.9% 1000 Ml Inj (D5w-Ns 10 (04/10/17 17:00) Insulin Regular (Iv Infusion) (Novolin R (04/10/17 16:15) Sodium Bicarbonate 8.4% Inj (Sodium Bica (04/10/17 16:15) Sodium Bicarbonate 8.4% Inj (Sodium Bica (04/10/17 16:15) Sodium Phosphate Inj (Sodium Phosphate I (04/10/17 16:15) Basic Metabolic Panel (Bmp) (04/10/17 21:03) Basic Metabolic Panel (Bmp) (04/11/17 03:03) Basic Metabolic Panel (Bmp) (04/11/17 09:03) Basic Metabolic Panel (Bmp) (04/11/17 15:03) Magnesium (Mg) (04/10/17 21:03) Magnesium (Mg) (04/11/17 03:03) Magnesium (Mg) (04/11/17 09:03) Magnesium (Mg) (04/11/17 15:03) Phosphorus (Po4) (04/10/17 21:03) Phosphorus (Po4) (04/11/17 03:03) Phosphorus (Po4) (04/11/17 09:03) Phosphorus (Po4) (04/11/17 15:03) Beta Hydroxybutyrate (Acetone) (04/11/17 03:03) Beta Hydroxybutyrate (Acetone) (04/11/17 15:03) Inpatient Certification (04/10/17 ) Ceftriaxone Inj (Rocephin Inj) (04/11/17 15:00) Admit Order (Ed Use Only) (04/10/17 16:10) Labs Laboratory Tests Test 04/10/17 04/10/17 13:20 14:00 White Blood Count 4.8 TH/MM3 Red Blood Count 3.40 MIL/MM3 Hemoglobin 9.6 GM/DL Hematocrit 30.5 % Mean Corpuscular Volume 89.6 FL Mean Corpuscular Hemoglobin 28.3 PG Mean Corpuscular Hemoglobin 31.6 % Concent Red Cell Distribution Width 15.8 % Platelet Count 187 TH/MM3 Mean Platelet Volume 8.7 FL Neutrophils (%) (Auto) 36.6 % Lymphocytes (%) (Auto) 43.8 % Monocytes (%) (Auto) 13.5 % Eosinophils (%) (Auto) 5.0 % Basophils (%) (Auto) 1.1 % Neutrophils # (Auto) 1.8 TH/MM3 Lymphocytes # (Auto) 2.1 TH/MM3 Monocytes # (Auto) 0.6 TH/MM3 Eosinophils # (Auto) 0.2 TH/MM3 Basophils # (Auto) 0.1 TH/MM3 CBC Comment DIFF FINAL Differential Comment Sodium Level 129 MEQ/L Potassium Level 4.2 MEQ/L Chloride Level 94 MEQ/L Carbon Dioxide Level 26.5 MEQ/L Anion Gap 9 MEQ/L Blood Urea Nitrogen 46 MG/DL Creatinine 8.01 MG/DL Estimat Glomerular Filtration 8 ML/MIN Rate Random Glucose 656 MG/DL Serum Osmolality 330 MOSM/KG Calcium Level 8.4 MG/DL Phosphorus Level 4.5 MG/DL Magnesium Level 1.6 MG/DL Total Bilirubin 0.3 MG/DL Aspartate Amino Transf 16 U/L (AST/SGOT) Alanine Aminotransferase 16 U/L (ALT/SGPT) Alkaline Phosphatase 98 U/L Total Protein 9.3 GM/DL Albumin 2.5 GM/DL B-Hydroxybutyrate 0.18 MMOL/L Urine Color YELLOW Urine Turbidity CLOUDY Urine pH 7.0 Urine Specific [place] 1.015 Urine Protein 100 mg/dL Urine Glucose (UA) 1000 mg/dL Urine Ketones NEG mg/dL Urine Occult Blood MOD Urine Nitrite NEG Urine Bilirubin NEG Urine Urobilinogen LESS THAN 2.0 MG/DL Urine Leukocyte Esterase LARGE Urine RBC 9 /hpf Urine WBC /hpf Urine WBC Clumps MANY Urine Squamous Epithelial <1 /hpf Cells Urine Transitional Epithelial <1 /hpf Cells Urine Bacteria FEW /hpf Microscopic Urinalysis Comment CULTURE INDICATED MDM Medical Decision Making Medical Screen Exam Complete: Yes Emergency Medical Condition: Yes Medical Record Reviewed: Yes Differential Diagnosis Hyperglycemia, DKA, electrolyte imbalance, end-stage renal disease Narrative Course CBC & BMP Diagram 04/10/17 13:20 AG 9 LFTs normal Serum osmolality 330 UA: UTI present Patient will be admitted for management of UTI. He reports taking antibiotics as an outpatient for raising concern for complicated cystitis. Additionally there is hyperglycemia after multiple doses of insulin, 20 in total, with a blood glucose of 499. Case d/w Dr Luong for [facility]. D/w Dr Tompkins for [facility]. Diagnosis Primary Impression: Hyperglycemia Additional Impression: Urinary tract infection Qualified Code: N39.0 - Urinary tract infection without hematuria, site unspecified Admitting Information Admitting Physician Requests: Observation Burke Woody MD Apr 10, 2017 14:47
[2017-04-10] MEDS ORDERED: cefTRIAXone INJ 1,000 MG in SODIUM CHLORIDE 0.9% INJ 100 ML IV ONE (15:00)
[2017-04-10] MEDS ORDERED: SODIUM PHOSPHATE INJ 15 MMOL in SODIUM CHLORIDE 0.9% INJ 100 ML IV PRN (16:15)
[2017-04-10] MEDS ORDERED: SODIUM BICARBONATE 8.4% SOLN 50 MEQ/50 ML VIAL IV PRN ×2 (16:15)
--- NOTE | 2017-04-10 16:58 | HHI.HP ---
[facility] Service [facility] Primary Care Physician Unknown Admission Diagnosis Hyperglycemia; ESRD; UTI Diagnoses: Chief Complaint: Hyperglycemia Travel History International Travel<30 Days: No Contact w/Intl Traveler <30 Da: No Traveled to Known Affected Are: No History of Present Illness 76-year-old male history of end-stage renal disease status post right upper extremity bronchial basilic AV fistula with recent transposition and type 2 diabetes insulin-dependent who presented with elevated blood sugars. Patient stated that his grandchild got a hold of his glucometer and he couldn't find it afterwards. Patient has not been injecting himself with insulin for the past 2 days. He stated that he is usually on Lantus 3 units daily, NovoLog 3 units before meals and blood sugars usually in the 150s. In the ED his UA suggest UTI but he denied any urinary symptoms. Patient gets dialysis on Friday, Friday, and Friday with Dr. Smith. Review of Systems Constitutional: DENIES: Diaphoretic episodes, Fatigue, Fever, Weight gain, Weight loss, Chills, Dizziness, Change in appetite, Night Sweats Endocrine: DENIES: Heat/cold intolerance, Polydipsia, Polyuria, Polyphagia Eyes: DENIES: Blurred vision, Diplopia, Eye inflammation, Eye pain, Vision loss , Photosensitivity, Double Vision Ears, nose, mouth, throat: DENIES: Tinnitus, Hearing loss, Vertigo, Nasal discharge, Oral lesions, Throat pain, Hoarseness, Ear Pain, Running Nose, Epistaxis, Sinus Pain, Toothache, Odynophagia Respiratory: DENIES: Apneas, Cough, Snoring, Wheezing, Hemoptysis, Sputum production, Shortness of breath Cardiovascular: DENIES: Chest pain, Palpitations, Syncope, Dyspnea on Exertion , PND, Lower Extremity Edema, Orthopnea, Claudication Gastrointestinal: DENIES: Abdominal pain, Black stools, Bloody stools, Constipation, Diarrhea, Nausea, Vomiting, Difficulty Swallowing, Anorexia Genitourinary: DENIES: Sexual dysfunction, Urinary frequency, Urinary incontinence, Urgency, Hematuria, Dysuria, Nocturia, Penile Discharge, Testicular Pain, Testicular Swelling Musculoskeletal: DENIES: Joint pain, Muscle aches, Stiffness, Joint Swelling, Back pain, Neck pain Integumentary: DENIES: Abnormal pigmentation, Nail changes, Pruritus, Rash Hematologic/lymphatic: DENIES: Bruising, Lymphadenopathy Immunologic/allergic: DENIES: Eczema, Urticaria Neurologic: DENIES: Abnormal gait, Headache, Localized weakness, Paresthesias, Seizures, Speech Problems, Tremor, Poor Balance Psychiatric: DENIES: Anxiety, Confusion, Mood changes, Depression, Hallucinations, Agitation, Suicidal Ideation, Homicidal Ideation, Delusions Past Family Social History Past Medical History Type 2 diabetes insulin-dependent End-stage renal disease BPH Past Surgical History right upper extremity brachiobasilic AV fistula transposition Right upper strength brachiobasilic AV fistula Circumcision Tunnel catheter placement GERD Reported Medications Humalog Mix 75-25 Inj (Insulin Lispro Protam/Lispro Human) 1,000 Unit/10 Ml Susp 1 Units SQ Lantus Inj (Insulin Glargine) 1,000 Unit/10 Ml Vial 8 Units SQ HS Eliquis (Apixaban) 2.5 Mg Tab 2.5 Mg PO BID Pantoprazole (Pantoprazole Sodium) 40 Mg Tab 40 Mg PO DAILY Renal Vitamin (B-Complex W/ C & Folic Acid) 1 Cap 1 Cap PO DAILY If on dialysis, take after treatment. Calcium Acetate (Phosphate Binder) 667 Mg Tab 667 Mg PO TID Furosemide 40 Mg Tab 40 Mg PO SUTUTHSA Allergies: Coded Allergies: No Known Allergies (Verified , 04/10/17) Active Ordered Medications Current Medications Sodium Chloride (NS Flush) 2 ml UNSCH PRN IVF FLUSH AFTER USING IV ACCESS Last administered on 04/10/17 13:31; Start 04/10/17 at 13:30 Insulin Human Regular 10 units 10 units ONCE ONCE IV PUSH Last administered on 04/10/17 13:33; Start 04/10/17 at 13:30; Stop 04/10/17 at 13:31; Status DC Ceftriaxone Sodium/Sodium Chloride (Rocephin Inj/NS Inj) 100 ml @ 200 mls/hr ONCE ONCE IV Last administered on 04/10/17 14:53; Start 04/10/17 at 15:00; Stop 04/10/17 at 15:29; Status DC Insulin Human Regular 10 units 10 units ONCE ONCE IV PUSH Last administered on 7/6/17at 15:08; Start 04/10/17 at 15:00; Stop 04/10/17 at 15:01; Status DC Sodium Chloride 1,000 ml @ 250 mls/hr Q4H IV ; Start 04/10/17 at 17:00 Dextrose/Sodium Chloride 1,000 ml @ 200 mls/hr Q5H IV ; Start 04/10/17 at 17:00 Insulin Human Regular/Sodium Chloride (NovoLIN R (IV INFUSION)/NS Inj) 100 ml @ 0 mls/hr TITRATE IV ; Start 04/10/17 at 17:00 Sodium Bicarbonate (Sodium Bicarbonate 8.4% Inj) 100 meq UNSCH PRN IV SEE LABEL COMMENTS; Start 04/10/17 at 16:15 Sodium Bicarbonate 50 meq 50 meq UNSCH PRN IV SEE LABEL COMMENTS; Start at 16:15 Sodium Phosphate 15 mmol/Sodium Chloride 105 ml @ 25 mls/hr UNSCH PRN IV SEE LABEL COMMENTS; Start 04/10/17 at 16:15 Ceftriaxone Sodium/Sodium Chloride (Rocephin Inj/NS Inj) 100 ml @ 200 mls/hr Q24H IV ; Start 04/11/17 at 15:00 Family History Noncontributory Social History Lives at home with his . Denies alcohol, tobacco or illicit drug use. Physical Exam Vital Signs Vital Signs Date Time Temp Pulse Resp B/P Pulse Ox O2 Delivery O2 Flow Rate FiO2 04/10/17 14:35 97.8 79 16 144/84 100 Room Air 04/10/17 13:24 17 100 Room Air 04/10/17 13:06 70 17 100 Room Air 04/10/17 12:48 97.3 72 20 130/70 97 Room Air Physical Exam GENERAL: This is a well-nourished, well-developed patient, in no apparent distress. SKIN: No rashes, ecchymoses or lesions. Cool and dry. Tunnel catheter in place. HEAD: Atraumatic. Normocephalic. No temporal or scalp tenderness. EYES: Pupils equal round and reactive. Extraocular motions intact. No scleral icterus. No injection or drainage. ENT: Nose without bleeding, purulent drainage or septal hematoma. Throat without erythema, tonsillar hypertrophy or exudate. Uvula midline. Airway patent. NECK: Trachea midline. No JVD or lymphadenopathy. Supple, nontender, no meningeal signs. CARDIOVASCULAR: Regular rate and rhythm without murmurs, gallops, or rubs. RESPIRATORY: Clear to auscultation. Breath sounds equal bilaterally. No wheezes , rales, or rhonchi. GASTROINTESTINAL: Abdomen soft, non-tender, nondistended. No hepato-splenomegaly , or palpable masses. No guarding. MUSCULOSKELETAL: Extremities without clubbing, cyanosis, or edema. No calf tenderness. Negative Homans sign bilaterally. Right arm with swelling. Scar shows mild yellowish discharge which per patient is improving a lot. Otherwise no erythema at the wound site. NEUROLOGICAL: Awake and alert. Cranial nerves II through XII intact. Motor and sensory grossly within normal limits. Five out of 5 muscle strength in all muscle groups. Normal speech. Laboratory Laboratory Tests Test 04/10/17 04/10/17 13:20 14:00 White Blood Count 4.8 Red Blood Count 3.40 Hemoglobin 9.6 Hematocrit 30.5 Mean Corpuscular Volume 89.6 Mean Corpuscular Hemoglobin 28.3 Mean Corpuscular Hemoglobin 31.6 Concent Red Cell Distribution Width 15.8 Platelet Count 187 Mean Platelet Volume 8.7 Neutrophils (%) (Auto) 36.6 Lymphocytes (%) (Auto) 43.8 Monocytes (%) (Auto) 13.5 Eosinophils (%) (Auto) 5.0 Basophils (%) (Auto) 1.1 Neutrophils # (Auto) 1.8 Lymphocytes # (Auto) 2.1 Monocytes # (Auto) 0.6 Eosinophils # (Auto) 0.2 Basophils # (Auto) 0.1 CBC Comment DIFF FINAL Differential Comment Sodium Level 129 Potassium Level 4.2 Chloride Level 94 Carbon Dioxide Level 26.5 Anion Gap 9 Blood Urea Nitrogen 46 Creatinine 8.01 Estimat Glomerular Filtration 8 Rate Random Glucose 656 Serum Osmolality 330 Calcium Level 8.4 Phosphorus Level 4.5 Magnesium Level 1.6 Total Bilirubin 0.3 Aspartate Amino Transf 16 (AST/SGOT) Alanine Aminotransferase 16 (ALT/SGPT) Alkaline Phosphatase 98 Total Protein 9.3 Albumin 2.5 B-Hydroxybutyrate 0.18 Urine Color YELLOW Urine Turbidity CLOUDY Urine pH 7.0 Urine Specific [place] 1.015 Urine Protein 100 Urine Glucose (UA) 1000 Urine Ketones NEG Urine Occult Blood MOD Urine Nitrite NEG Urine Bilirubin NEG Urine Urobilinogen LESS THAN 2.0 Urine Leukocyte Esterase LARGE Urine RBC 9 Urine WBC Urine WBC Clumps MANY Urine Squamous Epithelial <1 Cells Urine Transitional Epithelial <1 Cells Urine Bacteria FEW Microscopic Urinalysis Comment CULTURE INDICATED Date/Time Procedure Status Source Growth 04/10/17 14:00 Urine Culture Received Urine Clean Catch Pending Result Diagram: 04/10/17 1320 04/10/17 1320 Assessment and Plan Assessment and Plan 72-year-old male with type 2 diabetes insulin-dependent and end-stage renal disease status post recent right upper extremity brachiobasilic AV fistula transposition who presented with elevated blood sugar secondary to noncompliance HHN, mild -Serum osmolality increased. Blood sugars in the 700s. He was given a total of 20 units of insulin in the emergency department and blood sugars now in the 500s. -Will give IV fluids but be cautious since patient does have end-stage renal disease and put patient on insulin drip. -Once better controlled will transition to subcutaneous. Type 2 diabetes insulin-dependent -Noncompliance. -Home dose of Lantus 3 units daily and NovoLog 3 units 3 times a day. -Will need to give patient a prescription for glucometer. -See treatment as above. Bacteruria -Asymptomatic. -Treat with Rocephin pending urine cultures. End-stage renal disease -Patient gets dialysis on Friday, Friday, Friday. He stated that he had dialysis yesterday. -Consult Dr. Smith his refrigerating engineer head. GERD -Continue with home medication. DVT prophylaxis -scd. Patient is on L Guerra but has been held secondary to procedure. We'll continue to hold eliquis since he may have a procedure early next week. Code Status full Discussed Condition With d/w Dr. Ag Rolon and he stated that he will see patient as outpatient early next week to reschedule to revision. He stated that if patient is hospitalized next week to consult him. Physician Certification 2 Midnight Certification Type: Admission for Inpatient Services Order for Inpatient Services The services are ordered in accordance with Medicare regulations or non- Medicare payer requirements, as applicable. In the case of services not specified as inpatient-only, they are appropriately provided as inpatient services in accordance with the 2-midnight benchmark. Estimated LOS (days): 3 3 days is the estimated time the patient will need to remain in the hospital, assuming treatment plan goals are met and no additional complications. Post-Hospital Plan: Estefani Dobbins MD Apr 10, 2017 16:58
[2017-04-10] MEDS ORDERED: SODIUM CHLOR 0.9% 1000 ML INJ 1,000 ML IV SCH ×2 (17:00→17:15)
[2017-04-10] MEDS ORDERED: DEXT 5%-NACL 0.9% 1000 ML INJ 1,000 ML IV SCH (17:00)
[2017-04-10] MEDS ORDERED: INSULIN REGULAR (IV INFUSION) 100 UNITS in SODIUM CHLORIDE 0.9% INJ 99 ML IV SCH (17:00)
[2017-04-10 17:30] VITALS: BP 110/67; PULSE 70; RESP 16; TEMP 97.8; O2SAT 99
[2017-04-10] MEDS: CALCIUM ACETATE 667 MG CAP PO SCH (17:55)
[2017-04-10 17:56] LABS: BLOOD GAS BASE EXCESS -1.4 mmol/L (-2-2); BLOOD GAS CARBOXYHEMOGLOBIN 1.6 % (0-4); BLOOD GAS HCO3 23 mmol/L (22-26); BLOOD GAS METHEMOGLOBIN 0.5 % (0-2); BLOOD GAS O2 HGB SATURATION 93 % (90-100); BLOOD GAS OXYGEN CONTENT 12.9 Vol % (12.0-20.0); BLOOD GAS PCO2 41 mmHg (38-42); BLOOD GAS PO2 78 mmHG (61-120); BLOOD GAS TOTAL HGB 9.7 G/DL (12.0-16.0); CRITICAL VALUE NO; TEMP CORR TO 98.6
[2017-04-10 17:57] LABS: DRAW SITE LT RADIAL; FIO2 21 %; NUMBER OF ARTERIAL PUNCTURES 1; STAT YES; ULNAR PULSE Y
[2017-04-10 20:17] VITALS: BP 109/60; PULSE 74; RESP 16; O2SAT 98
[2017-04-10] MEDS ORDERED: DEXTROSE 50% IN WATER 50 ML VIAL(D50) IV PRN (21:15)
[2017-04-10] MEDS ORDERED: GLUCAGON 1 MG/ML VIAL OTHER PRN (21:15)
[2017-04-10 22:38] LABS: BICARBONATE 28.9 MEQ/L (21.0-32.0); MAGNESIUM 1.4 MG/DL (1.5-2.5); POTASSIUM 3.1 MEQ/L (3.5-5.1)
[2017-04-10 23:40] VITALS: BP 114/58; PULSE 78; RESP 20; TEMP 98.9; O2SAT 99
[2017-04-11] VITALS (8 sets, daily range): BP systolic 99–128; BP diastolic 60–67; PULSE 64–78; RESP 16–22; TEMP 95.9–98.6; O2SAT 97–100
[2017-04-11] MEDS: INSULIN ASPART SUPPLEMENTAL SCALE SQ SCH ×4 (06:37→21:19)
[2017-04-11 08:38] LABS: HEMATOCRIT 30.8 % (39.0-51.0); MEAN CELL VOLUME 86.5 FL (80.0-100.0); MEAN CORPUSCULAR HEMOGLOBIN 28.6 PG (27.0-34.0); PLATELET COUNT 183 TH/MM3 (150-450); RED BLOOD COUNT 3.56 MIL/MM3 (4.50-5.90); RED CELL DISTRIBUTION WIDTH 15.5 % (11.6-17.2); REVIEW FLAG FINAL; WHITE BLOOD COUNT 5.9 TH/MM3 (4.0-11.0)
[2017-04-11 09:00] LABS: BICARBONATE 21.2 MEQ/L (21.0-32.0); POTASSIUM 4.1 MEQ/L (3.5-5.1)
[2017-04-11] MEDS: VITAMIN B CMPLX/VITC/FOLIC AC CAP PO SCH (09:55)
[2017-04-11] MEDS: PANTOPRAZOLE SOD 40 MG DELAYED RELEASE TAB PO SCH (09:55)
[2017-04-11] MEDS: CALCIUM ACETATE 667 MG CAP PO SCH ×2 (09:55→21:27)
--- NOTE | 2017-04-11 10:56 | HHI.PR ---
Subjective Remarks Follow-up for elevated blood sugar and UTI Patient stated that he feels better today. Denies any pain. Patient denies any urinary symptoms but he stated that he did have a history of multiple UTIs secondary to him being circumcised. Patient remained afebrile. He stated that he is making good urine. Objective Vitals Vital Signs Date Time Temp Pulse Resp B/P Pulse Ox O2 Delivery O2 Flow Rate FiO2 04/11/17 08:00 96.4 69 22 128/60 99 04/11/17 04:00 96.7 74 20 113/64 98 04/10/17 23:40 98.9 78 20 114/58 99 04/10/17 20:17 74 16 109/60 98 Room Air 04/10/17 17:30 97.8 70 16 110/67 99 Room Air 04/10/17 14:35 97.8 79 16 144/84 100 Room Air 04/10/17 13:24 17 100 Room Air 04/10/17 13:06 70 17 100 Room Air 04/10/17 12:48 97.3 72 20 130/70 97 Room Air I/O 04/10/17 04/10/17 04/10/17 04/11/17 04/11/17 04/11/17 07:00 15:00 23:00 07:00 15:00 23:00 Intake Total 60 ml Balance 60 ml Intake Oral 60 ml # Voids 0 # Bowel Movements 0 Result Diagram: 04/11/1718 04/11/1718 Objective Remarks GENERAL: in NAD SKIN: right arm with swelling and wound dry, intact with mild yellowish clear discharge. HEAD: Normocephalic. EYES: No scleral icterus. No injection or drainage. NECK: Supple, trachea midline. No JVD or lymphadenopathy. CARDIOVASCULAR: Regular rate and rhythm without murmurs, gallops, or rubs. RESPIRATORY: Breath sounds equal bilaterally. No accessory muscle use. GASTROINTESTINAL: Abdomen soft, non-tender, nondistended. MUSCULOSKELETAL: No cyanosis, or edema. BACK: Nontender without obvious deformity. No CVA tenderness. Medications and IVs Current Medications Sodium Chloride (NS Flush) 2 ml UNSCH PRN IVF FLUSH AFTER USING IV ACCESS Last administered on 04/10/17t 13:31; Start 04/10/17 at 13:30 Insulin Human Regular 10 units 10 units ONCE ONCE IV PUSH Last administered on 04/10/17 13:33; Start 04/10/17 at 13:30; Stop 04/10/17 at 13:31; Status DC Ceftriaxone Sodium/Sodium Chloride (Rocephin Inj/NS Inj) 100 ml @ 200 mls/hr ONCE ONCE IV Last administered on 04/10/17 14:53; Start 04/10/17 at 15:00; Stop 04/10/17 at 15:29; Status DC Insulin Human Regular 10 units 10 units ONCE ONCE IV PUSH Last administered on 04/10/17 15:08; Start 04/10/17 at 15:00; Stop 04/10/17 at 15:01; Status DC Sodium Chloride 1,000 ml @ 250 mls/hr Q4H IV ; Start 04/10/17 at 17:00; Stop 04/10/17 at 17:12; Status DC Dextrose/Sodium Chloride 1,000 ml @ 200 mls/hr Q5H IV ; Start 04/10/17 at 17:00 ; Stop 04/10/17 at 17:14; Status DC Insulin Human Regular/Sodium Chloride (NovoLIN R (IV INFUSION)/NS Inj) 100 ml @ 0 mls/hr TITRATE IV Last administered on 04/10/17 17:52; Start 04/10/17 at 17:00 ; Stop 04/10/17 at 21:02; Status DC Sodium Bicarbonate (Sodium Bicarbonate 8.4% Inj) 100 meq UNSCH PRN IV SEE LABEL COMMENTS; Start 04/10/17 at 16:15; Stop 04/10/17 at 21:02; Status DC Sodium Bicarbonate 50 meq 50 meq UNSCH PRN IV SEE LABEL COMMENTS; Start at 16:15; Stop 04/10/17 at 21:02; Status DC Sodium Phosphate 15 mmol/Sodium Chloride 105 ml @ 25 mls/hr UNSCH PRN IV SEE LABEL COMMENTS; Start 04/10/17 at 16:15; Stop 04/10/17 at 21:02; Status DC Ceftriaxone Sodium 1000 mg/ Sodium Chloride 100 ml @ 200 mls/hr Q24H IV ; Start 04/11/17 at 15:00 Sodium Chloride (NS 1000 ml Inj) 1,000 ml @ 75 mls/hr [id number] IV Last administered on 04/10/17 17:55; Start 04/10/17 at 17:15; Stop 04/10/17 at 21:33; Status DC Vitamin B Complex/ Vit C/Folic Acid (Nephrocaps) 1 cap DAILY PO Last administered on 04/11/17 09:55; Start 04/11/17 at 09:00 Calcium Acetate (Phoslo) 667 mg TID PO Last administered on 04/11/17 09:55; Start 04/10/17 at 18:00 Pantoprazole Sodium (Protonix) 40 mg DAILY PO Last administered on 04/11/17 09: 55; Start 04/11/17 at 09:00 Dextrose (D50w (Vial) Inj) 50 ml UNSCH PRN IV HYPOGLYCEMIA-SEE COMMENTS; Start 04/10/17 at 21:15 Glucagon (Glucagon Inj) 1 mg UNSCH PRN OTHER HYPOGLYCEMIA-SEE COMMENTS; Start 04/10/17 at 21:15 Insulin Aspart (NovoLOG SUPPLEMENTAL SCALE) 1 ACHS SLIDING SCALE SQ Last administered on 04/11/17 06:37; Start 04/11/17 at 07:00 Insulin Detemir (Levemir Inj) 8 units HS SQ ; Start 04/11/17 at 21:00 A/P Assessment and Plan 72-year-old male with type 2 diabetes insulin-dependent and end-stage renal disease status post recent right upper extremity brachiobasilic AV fistula transposition who presented with elevated blood sugar secondary to noncompliance HHN, mild versus uncontrolled hyperglycemia due to noncompliance -Improved. -Serum osmolality increased. Blood sugars in the 700s. Status post insulin drip. -Blood sugars in the upper 300s. -Will increase insulin amount. Type 2 diabetes insulin-dependent -Noncompliance. -Patient change his home doses today and stated that he is on Lantus 8 units at bedtime and 20 units of NovoLog before meals. -We'll be cautious since he is a poor historian and continue with the 8 units at bedtime and 10 units before meals and insulin sliding scale. -Will need to give patient a prescription for glucometer. -See treatment as above. Bacteruria -Asymptomatic. -Treat with Rocephin due to history of multiple UTIs. Pending urine cultures. All infection must be treated before patient is scheduled for surgery. Right arm swelling -Per vascular surgeon this may be due to stenosis of the AV fistula site. Stable. End-stage renal disease -Patient gets dialysis on Friday, Friday, Friday. He stated that he had dialysis yesterday. -Consult Dr. Smith his idea worker. GERD -Continue with home medication. DVT prophylaxis -scd. Patient is on Eliquis but has been held secondary to procedure. Will continue to hold eliquis since he may have a procedure early next week. Discharge Planning Pending urine cultures before discharge. Per Dr. Segura diabetes needs to be better control and UTI needed be treated for scheduling his elective surgery. Estefani Tompkins MD Apr 11, 2017 10:55
[2017-04-11] MEDS: INSULIN ASPART 1,000 UNITS/10 ML VIAL SQ SCH ×3 (12:23→21:18)
[2017-04-11] MEDS ORDERED: SODIUM CHLOR 0.9% 1000 ML INJ 1,000 ML IV PRN ×2 (12:29)
[2017-04-11] MEDS ORDERED: MANNITOL 12.5 GM/50 ML VIAL IV PRN (12:30)
[2017-04-11] MEDS ORDERED: ALBUMIN HUMAN 25% 25 GM/100 ML BAGP IV PRN (12:30)
[2017-04-11] MEDS ORDERED: ACETAMINOPHEN 325 MG TAB PO PRN (12:30)
[2017-04-11] MEDS ORDERED: NITROGLYCERIN 0.4 MG SL 25 TABS/BTL SL PRN (12:30)
[2017-04-11] MEDS ORDERED: HEPARIN SODIUM - IV 10,000 UNITS/10 ML VIAL IVF PRN (12:30)
[2017-04-11] MEDS ORDERED: diphenhydrAMINE HCL 25 MG CAP PO PRN (12:30)
[2017-04-11] MEDS ORDERED: cloNIDine HCL 0.1 MG TAB PO PRN (12:30)
[2017-04-11] MEDS ORDERED: SODIUM CHLORIDE 0.9% FLUSH 10 ML FLUSH IV FLUSH PRN (12:30)
[2017-04-11] MEDS ORDERED: ONDANSETRON HCL 4 MG/2 ML VIAL IV PRN (12:30)
[2017-04-11] MEDS ORDERED: GELATIN 12 MM/7 MM FOAM TOP PRN (12:30)
--- NOTE | 2017-04-11 14:05 | PD.CONS ---
HPI Service Nephrology Consult Requested By Reason for Consult ESRD on HD Primary Care Physician Unknown History of Present Illness This is a morbidly obese AAM patient. He came to hospital for planned AVF revision on right arm. On arrival his glucose was over 600, thus he was admitted. PMH of DM II, ESRD on HD MWF, HTN, metabolic bone disorder. He follows with Dr. Bang for dialysis, we were consulted for management. On exam his right arm is edematous, he reports previous DVT in that extremity for which he was on blood thinners temporarily but no longer is taking them. He had misplaced his glucometer at home and was unable to check his glucose. reportedly his glucose rarely is over 200 mg/dL. He is a full code. (Ana Hodgson) Review of Systems Constitutional: DENIES: Fatigue, Weight gain Respiratory: DENIES: Shortness of breath Cardiovascular: DENIES: Lower Extremity Edema Gastrointestinal: DENIES: Black stools Musculoskeletal: DENIES: Joint pain (Ana Hodgson) Past Family Social History Allergies: Coded Allergies: No Known Allergies (Verified , 04/10/17) Past Medical History ESRD on HD MWF DM II HTN Anemia metabolic bone disorder morbid obesity DVT right arm s/p AVF placement BPH Past Surgical History right upper extremity brachiobasilic AV fistula transposition Right upper strength brachiobasilic AV fistula Circumcision Tunnel catheter placement GERD Reported Medications Humalog Mix 75-25 Inj (Insulin Lispro Protam/Lispro Human) 1,000 Unit/10 Ml Susp 1 Units SQ Lantus Inj (Insulin Glargine) 1,000 Unit/10 Ml Vial 8 Units SQ HS Eliquis (Apixaban) 2.5 Mg Tab 2.5 Mg PO BID Pantoprazole (Pantoprazole Sodium) 40 Mg Tab 40 Mg PO DAILY Renal Vitamin (B-Complex W/ C & Folic Acid) 1 Cap 1 Cap PO DAILY If on dialysis, take after treatment. Calcium Acetate (Phosphate Binder) 667 Mg Tab 667 Mg PO TID Furosemide 40 Mg Tab 40 Mg PO SUTUTHSA Active Ordered Medications Current Medications Medications (Trade) Dose Ordered Sig/Fabiola Route Start Time Stop Time Status Last Admin Sodium Chloride 2 ml 2 ml UNSCH PRN IVF 04/10/17 13:30 04/10/17 13:31 (Rocephin Inj/NS Inj) 100 ml @ 200 mls/hr Q24H IV 04/11/17 15:00 (Nephrocaps) 1 cap DAILY PO 04/11/17 09:00 04/11/17 09:55 (Phoslo) 667 mg TID PO 04/10/17 18:00 04/11/17 09:55 (Protonix) 40 mg DAILY PO 04/11/17 09:00 04/11/17 09:55 (D50w (Vial) Inj) 50 ml UNSCH PRN IV 04/10/17 21:15 (Glucagon Inj) 1 mg UNSCH PRN OTHER 04/10/17 21:15 (Levemir Inj) 8 units HS SQ 04/11/17 21:00 Insulin Aspart 10 units 10 units ACHS SQ 04/11/17 11:00 04/11/17 12:23 (NS 1000 ml Inj) 1,000 ml @ 0 mls/hr Q0M PRN IV 04/11/17 12:29 Heparin Sodium (Porcine) 8000 units 8,000 units UNSCH PRN IVF 04/11/17 12:30 Sodium Chloride 1,000 ml @ 200 mls/hr Q5H PRN IV 04/11/17 12:29 (NS 1000 ml Inj) 1,000 ml @ 0 mls/hr Q0M PRN IV 04/11/17 12:29 (Mannitol Inj) 12.5 gm UNSCH PRN IV 04/11/17 12:30 (Albumin 25% Inj) 25 gm UNSCH PRN IV 04/11/17 12:30 (NS Flush) 5 ml UNSCH PRN IV FLUSH 04/11/17 12:30 (Heparin Inj) UNSCH PRN .XX 04/11/17 12:30 (Gentamicin (Dialysis) Inj) 20 mg UNSCH PRN IV 04/11/17 12:30 (Zofran Inj) 4 mg UNSCH PRN IV 04/11/17 12:30 (Tylenol) 650 mg UNSCH PRN PO 04/11/17 12:30 (Benadryl) 25 mg UNSCH PRN PO 04/11/17 12:30 (Nitrostat Sl) 0.4 mg UNSCH PRN SL 04/11/17 12:30 (Catapres) 0.1 mg UNSCH PRN PO 04/11/17 12:30 (Epogen Inj) 6,000 units UNSCH PRN IV 04/11/17 12:30 (Gelfoam 12 Mm/7 Mm Top) 1 foam UNSCH PRN TOP 04/11/17 12:30 Family History No hx of renal disorders Social History , lives with in [place], [place] no smoking or ETOH history ambulates full code retired (Ana Hodgson) Physical Exam Vital Signs Vital Signs Date Time Temp Pulse Resp B/P Pulse Ox O2 Delivery O2 Flow Rate FiO2 04/11/17 12:00 95.9 69 21 123/62 100 04/11/17 08:00 96.4 69 22 128/60 99 04/11/17 04:00 96.7 74 20 113/64 98 04/10/17 23:40 98.9 78 20 114/58 99 04/10/17 20:17 74 16 109/60 98 Room Air 04/10/17 17:30 97.8 70 16 110/67 99 Room Air 04/10/17 14:35 97.8 79 16 144/84 100 Room Air Physical Exam Morbidly obese AAM sitting up in bed, eating lunch awake/alert, oriented x 3 S1/S2, regular rate and rhythm, no murmurs lungs clear in all [place] abdomen obese, soft, non tender right arm: 2+ edema, AVF incision with some scabbing, + thrill/bruit, motor/ sensation intact distally lower ext: no edema permcath left chest Laboratory Laboratory Tests Test 04/10/17 04/10/17 04/10/17 04/11/17 14:00 17:49 21:36 08:18 Urine Color YELLOW Urine Turbidity CLOUDY Urine pH 7.0 Urine Specific [place] 1.015 Urine Protein 100 Urine Glucose (UA) 1000 Urine Ketones NEG Urine Occult Blood MOD Urine Nitrite NEG Urine Bilirubin NEG Urine Urobilinogen LESS THAN 2.0 Urine Leukocyte Esterase LARGE Urine RBC 9 Urine WBC Urine WBC Clumps MANY Urine Squamous Epithelial <1 Cells Urine Transitional Epithelial <1 Cells Urine Bacteria FEW Microscopic Urinalysis Comment CULTURE INDICATED Blood Gas Puncture Site LT RADIAL Blood Gas Patient Temperature 98.6 Blood Gas HCO3 23 Blood Gas Base Excess -1.4 Blood Gas Oxygen Saturation 93 Arterial Blood pH 7.37 Arterial Blood Partial 41 Pressure CO2 Arterial Blood Partial 78 Pressure O2 Arterial Blood Oxygen Content 12.9 Arterial Blood 1.6 Carboxyhemoglobin Arterial Blood Methemoglobin 0.5 Blood Gas Hemoglobin 9.7 Blood Gas Inspired Oxygen 21 Sodium Level 139 134 Potassium Level 3.1 4.1 Chloride Level 102 100 Carbon Dioxide Level 28.9 21.2 Anion Gap 8 13 Blood Urea Nitrogen 46 51 Creatinine 8.28 9.16 Estimat Glomerular Filtration 8 7 Rate Random Glucose 86 334 Calcium Level 8.8 8.6 Phosphorus Level 3.3 Magnesium Level 1.4 White Blood Count 5.9 Red Blood Count 3.56 Hemoglobin 10.2 Hematocrit 30.8 Mean Corpuscular Volume 86.5 Mean Corpuscular Hemoglobin 28.6 Mean Corpuscular Hemoglobin 33.0 Concent Red Cell Distribution Width 15.5 Platelet Count 183 Mean Platelet Volume 8.6 Hematology Comments Date/Time Procedure Status Source Growth 04/10/17 14:00 Urine Culture - Preliminary Resulted Urine Clean Catch Pseudomonas Species (Ana Hodgson) Result Diagram: 04/11/1781704/11/17817 Assessment and Plan Problem List: (1) ESRD (end stage renal disease) on dialysis Plan: Continue HD MWF , he is due today has permcath for HD monitor electrolytes continue phoslo for metabolic bone disorder avoid IVF has some edema, adjust UF as tolerated AVF in right arm needs revision; plan to be discharged and return next week ( Mon or ) for procedure with Dr. Vergara (2) DM (diabetes mellitus) type II controlled with renal manifestation Plan: his glucometer was misplaced, glucose over 600 on arrival he was not in DKA resume insulin therapy, monitor effect, titrate as needed (3) Urinary tract infection Plan: + pseudomonas, placed on rocephin monitor clinically (4) Anemia Plan: epogen with dialysis (Ana Hodgson) Assessment and Plan patient was seen and examined. Continue dialysis MWF. Admitted to the hospital because of hyperglycemia. Labile blood sugar noted. Continue insulin management. Urine culture grew Pseudomonas, but he may not really have infection , has no leukocytosis, no fever, may not produce much urine. (Roberth He MD) Problem Qualifiers (1) Urinary tract infection: Qualified Code: N39.0 - Urinary tract infection without hematuria, site unspecified Ana Hodgson Apr 11, 2017 14:04 Roberth He MD Apr 11, 2017 15:49
[2017-04-11] MEDS ORDERED: cefTRIAXone INJ 1,000 MG in SODIUM CHLORIDE 0.9% INJ 100 ML IV SCH (15:00)
[2017-04-11] MEDS: EPOETIN ALFA 10,000 UNITS/ML VIAL IV PRN (18:56)
[2017-04-11] MEDS: HEPARIN SODIUM - IV 10,000 UNITS/10 ML VIAL PRN (18:56)
[2017-04-11] MEDS: SODIUM CHLOR 0.9% 1000 ML INJ 1,000 ML IV PRN (18:57)
[2017-04-11] MEDS: GENTAMICIN SULFATE (DIALYSIS USE ONLY) 20 MG/2 ML VIAL IV PRN (18:57)
[2017-04-11] MEDS ORDERED: INSULIN DETEMIR 100 UNITS/ML VIAL SQ SCH (21:00)
[2017-04-12] VITALS (7 sets, daily range): BP systolic 78–115; BP diastolic 46–68; PULSE 77–93; RESP 18–20; TEMP 95.4–98.6; O2SAT 95–98
[2017-04-12] MEDS: INSULIN ASPART 1,000 UNITS/10 ML VIAL SQ SCH ×4 (06:16→21:11)
[2017-04-12] MEDS: INSULIN ASPART SUPPLEMENTAL SCALE SQ SCH ×4 (06:17→21:12)
[2017-04-12] MEDS: VITAMIN B CMPLX/VITC/FOLIC AC CAP PO SCH (08:33)
[2017-04-12] MEDS: PANTOPRAZOLE SOD 40 MG DELAYED RELEASE TAB PO SCH (08:33)
[2017-04-12] MEDS: CALCIUM ACETATE 667 MG CAP PO SCH ×3 (08:34→17:29)
[2017-04-12] MEDS: INSULIN DETEMIR 100 UNITS/ML VIAL SQ SCH ×2 (09:15→21:10)
--- NOTE | 2017-04-12 09:38 | HHI.PR ---
Subjective Remarks Follow-up for UTI and uncontrolled diabetes Patient has no complaints today. Denies any shortness of breathing, chest pain , palpitation or lightheadedness dizziness. His is at the bedside. Objective Vitals Vital Signs Date Time Temp Pulse Resp B/P Pulse Ox O2 Delivery O2 Flow Rate FiO2 04/12/17 08:27 98 21 04/12/17 08:00 96.2 89 18 78/46 98 04/12/17 07:22 78 04/12/17 04:00 98.6 83 19 99/68 98 04/11/17 22:15 98.6 78 16 99/67 97 04/11/17 22:03 100 21 04/11/17 20:00 77 04/11/17 16:49 100 21 04/11/17 16:00 96.1 64 20 117/67 98 04/11/17 12:00 95.9 69 21 123/62 100 I/O 04/11/17 04/11/17 04/11/17 04/12/17 04/12/17 04/12/17 07:00 15:00 23:00 07:00 15:00 23:00 Intake Total 360 ml 150 ml 600 ml Output Total 150 ml 3000 ml 100 ml Balance 210 ml -2850 ml 500 ml Intake Oral 360 ml 150 ml 600 ml Output Urine Total 150 ml 0 ml 100 ml Hemodialysis 3000 ml # Voids 2 # Bowel Movements 1 0 2 Result Diagram: 04/11/1718 04/11/1718 Objective Remarks GENERAL: in NAD SKIN: right arm with swelling and wound dry, intact with mild yellowish clear discharge. HEAD: Normocephalic. EYES: No scleral icterus. No injection or drainage. NECK: Supple, trachea midline. No JVD or lymphadenopathy. CARDIOVASCULAR: Regular rate and rhythm without murmurs, gallops, or rubs. RESPIRATORY: Breath sounds equal bilaterally. No accessory muscle use. GASTROINTESTINAL: Abdomen soft, non-tender, nondistended. MUSCULOSKELETAL: No cyanosis, or edema. BACK: Nontender without obvious deformity. No CVA tenderness. Medications and IVs Current Medications Sodium Chloride (NS Flush) 2 ml UNSCH PRN IVF FLUSH AFTER USING IV ACCESS Last administered on 04/10/17t 13:31; Start 04/10/17 at 13:30 Insulin Human Regular 10 units 10 units ONCE ONCE IV PUSH Last administered on 04/10/17 13:33; Start 04/10/17 at 13:30; Stop 04/10/17 at 13:31; Status DC Ceftriaxone Sodium/Sodium Chloride (Rocephin Inj/NS Inj) 100 ml @ 200 mls/hr ONCE ONCE IV Last administered on 04/10/17 14:53; Start 04/10/17 at 15:00; Stop 04/10/17 at 15:29; Status DC Insulin Human Regular 10 units 10 units ONCE ONCE IV PUSH Last administered on 04/10/17 15:08; Start 04/10/17 at 15:00; Stop 04/10/17 at 15:01; Status DC Sodium Chloride 1,000 ml @ 250 mls/hr Q4H IV ; Start 04/10/17 at 17:00; Stop 04/10/17 at 17:12; Status DC Dextrose/Sodium Chloride 1,000 ml @ 200 mls/hr Q5H IV ; Start 04/10/17 at 17:00 ; Stop 04/10/17 at 17:14; Status DC Insulin Human Regular/Sodium Chloride (NovoLIN R (IV INFUSION)/NS Inj) 100 ml @ 0 mls/hr TITRATE IV Last administered on 04/10/17 17:52; Start 04/10/17 at 17:00 ; Stop 04/10/17 at 21:02; Status DC Sodium Bicarbonate (Sodium Bicarbonate 8.4% Inj) 100 meq UNSCH PRN IV SEE LABEL COMMENTS; Start 04/10/17 at 16:15; Stop 04/10/17 at 21:02; Status DC Sodium Bicarbonate 50 meq 50 meq UNSCH PRN IV SEE LABEL COMMENTS; Start at 16:15; Stop 04/10/17 at 21:02; Status DC Sodium Phosphate 15 mmol/Sodium Chloride 105 ml @ 25 mls/hr UNSCH PRN IV SEE LABEL COMMENTS; Start 04/10/17 at 16:15; Stop 04/10/17 at 21:02; Status DC Ceftriaxone Sodium 1000 mg/ Sodium Chloride 100 ml @ 200 mls/hr Q24H IV Last administered on 04/11/17 16:35; Start 04/11/17 at 15:00; Stop 04/12/17 at 09:07; Status DC Sodium Chloride (NS 1000 ml Inj) 1,000 ml @ 75 mls/hr [id number] IV Last administered on 04/10/17 17:55; Start 04/10/17 at 17:15; Stop 04/10/17 at 21:33; Status DC Vitamin B Complex/ Vit C/Folic Acid (Nephrocaps) 1 cap DAILY PO Last administered on 04/12/17 08:33; Start 04/11/17 at 09:00 Calcium Acetate (Phoslo) 667 mg TID PO Last administered on 04/11/17 09:55; Start 04/10/17 at 18:00; Stop 04/11/17 at 14:06; Status DC Pantoprazole Sodium (Protonix) 40 mg DAILY PO Last administered on 04/12/17 08: 33; Start 04/11/17 at 09:00 Dextrose (D50w (Vial) Inj) 50 ml UNSCH PRN IV HYPOGLYCEMIA-SEE COMMENTS; Start 04/10/17 at 21:15 Glucagon (Glucagon Inj) 1 mg UNSCH PRN OTHER HYPOGLYCEMIA-SEE COMMENTS; Start 04/10/17 at 21:15 Insulin Aspart (NovoLOG SUPPLEMENTAL SCALE) 1 ACHS SLIDING SCALE SQ Last administered on 04/12/17 06:17; Start 04/11/17 at 07:00 Insulin Detemir (Levemir Inj) 8 units HS SQ Last administered on 04/11/17 21:17 ; Start 04/11/17 at 21:00; Stop 04/12/17 at 09:08; Status DC Insulin Aspart 10 units 10 units ACHS SQ Last administered on 04/12/17 06:16; Start 04/11/17 at 11:00 Sodium Chloride (NS 1000 ml Inj) 1,000 ml @ 0 mls/hr Q0M PRN IV For Prime & Rinse Back Last administered on 04/11/17 18:57; Start 04/11/17 at 12:29 Heparin Sodium (Porcine) 8000 units 8,000 units UNSCH PRN IVF WITH DIALYSIS; Start 04/11/17 at 12:30 Sodium Chloride 1,000 ml @ 200 mls/hr Q5H PRN IV WITH DIALYSIS; Start 04/11/17 at 12:29 Sodium Chloride (NS 1000 ml Inj) 1,000 ml @ 0 mls/hr Q0M PRN IV WITH DIALYSIS; Start 04/11/17 at 12:29 Mannitol (Mannitol Inj) 12.5 gm UNSCH PRN IV WITH DIALYSIS; Start 04/11/17 at 12 :30 Albumin Human (Albumin 25% Inj) 25 gm UNSCH PRN IV WITH DIALYSIS; Start at 12:30 Sodium Chloride (NS Flush) 5 ml UNSCH PRN IV FLUSH WITH DIALYSIS; Start at 12:30 Heparin Sodium (Porcine) (Heparin Inj) UNSCH PRN .XX WITH DIALYSIS Last administered on 04/11/17 18:56; Start 04/11/17 at 12:30 Gentamicin Sulfate (Gentamicin (Dialysis) Inj) 20 mg UNSCH PRN IV WITH DIALYSIS Last administered on 04/11/17 18:57; Start 04/11/17 at 12:30 Ondansetron HCl (Zofran Inj) 4 mg UNSCH PRN IV WITH DIALYSIS; Start 04/11/17 at 12:30 Acetaminophen (Tylenol) 650 mg UNSCH PRN PO for headach, pain, temp > 101F; Start 04/11/17 at 12:30 Diphenhydramine HCl (Benadryl) 25 mg UNSCH PRN PO for hives/itching/anaphylaxis ; Start 04/11/17 at 12:30 Nitroglycerin (Nitrostat Sl) 0.4 mg UNSCH PRN SL CHEST PAIN; Start 04/11/17 at 12:30 Clonidine (Catapres) 0.1 mg UNSCH PRN PO for BP > 180/100 X 2 readings; Start 04/11/17 at 12:30 Epoetin Gregory (Epogen Inj) 6,000 units UNSCH PRN IV WITH DIALYSIS Last administered on 04/11/17 18:56; Start 04/11/17 at 12:30 Gelatin (Gelfoam 12 Mm/7 Mm Top) 1 foam UNSCH PRN TOP SEE LABEL COMMENTS; Start 04/11/17 at 12:30 Calcium Acetate 2001 mg 2,001 mg TID PO Last administered on 04/12/17 08:34; Start 04/11/17 at 18:00 Piperacillin Sod/ Tazobactam Sod (Zosyn 2.25 Gm Premix) 50 ml @ 100 mls/hr Q12H IV ; Start 04/12/17 at 11:00 Insulin Detemir (Levemir Inj) 8 units Q12HR SQ ; Start 04/12/17 at 09:15 A/P Assessment and Plan 72-year-old male with type 2 diabetes insulin-dependent and end-stage renal disease status post recent right upper extremity brachiobasilic AV fistula transposition who presented with elevated blood sugar secondary to noncompliance HHN, mild versus uncontrolled hyperglycemia due to noncompliance -Improved. -Serum osmolality increased. Blood sugars in the 700s. Status post insulin drip. -Blood sugars in the upper 200s -Will increase insulin amount. Type 2 diabetes insulin-dependent -Noncompliance. -Home dosage Lantus 8 units at bedtime and 20 units of NovoLog before meals. -Increase Levemir to 8 units twice a day and continue with NovoLog 10 units before meals and insulin sliding scale. Urinary tract infection Pseudomonas -DC Rocephin and start Zosyn pending urine cultures. Right arm swelling -Per vascular surgeon this may be due to stenosis of the AV fistula site. Stable. End-stage renal disease -Patient gets dialysis on Friday, Friday, Friday. -Neurologists is following. GERD -Continue with home medication. DVT prophylaxis -scd. Patient is on Eliquis but has been held secondary to procedure. Will continue to hold eliquis since he may have a procedure early next week. Discharge Planning Due to medical complexity pending urine culture sensitivity before discharge. Estefani Tompkins MD Apr 12, 2017 09:38
[2017-04-12] MEDS: PIPERACIL-TAZO 2.25 GM PREMIX 50 ML IV SCH ×2 (10:46→22:00)
--- NOTE | 2017-04-12 10:59 | HHI.NPPN ---
Subjective Interval History Dialyzed yesterday. Has been placed on Zosyn for presumed UTI. Objective Data Data 04/11/17 04/12/17 19:00 07:00 Intake Total 360 ml 750 ml Output Total 150 ml 3100 ml Balance 210 ml -2350 ml Intake Oral 360 ml 750 ml Output Urine Total 150 ml 100 ml Hemodialysis 3000 ml # Voids 2 # Bowel Movements 1 2 Vital Signs Date Time Temp Pulse Resp B/P Pulse Ox O2 Delivery O2 Flow Rate FiO2 04/12/17 08:27 98 21 04/12/17 08:00 96.2 89 18 78/46 98 04/12/17 07:22 78 04/12/17 04:00 98.6 83 19 99/68 98 04/11/17 22:15 98.6 78 16 99/67 97 04/11/17 22:03 100 21 04/11/17 20:00 77 04/11/17 16:49 100 21 04/11/17 16:00 96.1 64 20 117/67 98 04/11/17 12:00 95.9 69 21 123/62 100 -: 04/11/17 0818 04/11/17 0818 Physical Exam General Appearance: Well Developed Appearance Remarks obese. Neck Neck Exam: Neck Supple Pulmonary Resp Exam: Clear Bilaterally, Breath Sounds Equal Cardiology CV Exam: Regular, Normal Sinus Rhythm Gastrointestinal/Abdomen GI Exam: Soft, Positive Bowel Movement Musculoskeletal MS Exam: Joints Intact Integumentary Skin Exam: Intact Extremeties Extremities Exam: No Edema Psychiatric Psych Exam: Appropriate Responses Assessment/Plan Problem List: (1) ESRD (end stage renal disease) on dialysis Plan: Continue HD MWF Has PermCath for dialysis, plans for AVF revision. (2) DM (diabetes mellitus) type II controlled with renal manifestation Plan: Continue insulin therapy. Patient had issues with glucometer at home. (3) Urinary tract infection Plan: + pseudomonas, placed on Zosyn, it is unclear if he has UTI, may not produce much urine. (4) Anemia Plan: epogen with dialysis Problem Qualifiers (1) Urinary tract infection: Qualified Code: N39.0 - Urinary tract infection without hematuria, site unspecified Roberth He MD Apr 12, 2017 10:59
--- NOTE | 2017-04-12 17:21 | MB ---
cc: JENN DE LA TORRE MD DATE OF CONSULTATION 04/12/[address] Tompkins REASON FOR CONSULTATION A 72 year old male with end-stage renal disease, hyperglycemia, urine culture positive for Pseudomonas resistant to oral medications. HISTORY OF PRESENT ILLNESS This is a 72-year-old black male who has end-stage renal disease. The patient was admitted to the hospital for hyperglycemia. He has a right upper extremity AV fistula which is not functional. He is due to undergo additional surgery at the right upper extremity. He has marked swelling of the right upper extremity. The patient's workup included urinalysis on 04/10 which came back showing many white blood cell clumps and innumerable white cells and a large leukocyte esterase. The urine culture came back with Pseudomonas aeruginosa resistant to Levaquin. He was previously on ceftriaxone and was switched to piperacillin/Tazobactam and this consultation is requested for antibiotic recommendations. The patient he tells me that he feels fine. He is currently sitting up in a chair and he is in no acute distress. He tells me that he makes urine without difficulty. He is due to undergo an AV fistula revision. The patient tells me that he feels fine. He denies chills, shortness of breath or fever. PAST MEDICAL HISTORY 1. End stage renal disease treat with hemodialysis. 2. Diabetes mellitus type 2, 3. Hypertension, 4. anemia, 5. DVT right arm following AVS placement 6. Metabolic bone disorder, 7. Benign prostatic hypertrophy 8. Circumcision 9. Gastroesophageal reflux disease. ALLERGIES NO KNOWN DRUG ALLERGIES. MEDICATIONS 1. piperacillin/Tazobactam 2. Phos-Lo 3. Levemir. 4. Epogen 5. Nephrocaps 6. Protonix. SOCIAL HISTORY The patient is . No tobacco, no alcohol or illicit drug use. FAMILY HISTORY Noncontributory. REVIEW OF SYSTEMS Negative on 10-point review. PHYSICAL EXAMINATION GENERAL: A well-developed male who is in no acute distress. He is awake and alert and oriented. VITAL SIGNS: Temperature 96.9, BP 101/57, respirations 18, heart rate 87. HEENT: Head is atraumatic. Extraocular movements grossly intact, pupils reactive to light without icterus. Oropharynx no visible lesions. NECK: Supple without adenopathy. LUNGS: Clear breath sounds bilateral. HEART: Regular rate and rhythm. No murmurs, rubs or gallops. ABDOMEN: Bowel sounds present, soft, nontender. RECTAL: Not performed. EXTREMITIES: No clubbing or cyanosis. She has marked swelling of the right upper extremities. Well-healed surgical scar at the in inner humerus where there is also marked swelling. The lower extremities have chronic hyperpigmented discoloration at the tibias and there is a superficial ulceration at the lateral left tibia which has weeping of slight serous fluid and a few superficial blisters at the left tibia without drainage. NEUROLOGIC: Nonfocal. SKIN: No diffuse rash. PSYCHIATRIC: The patient is calm and cooperative. LABORATORY DATA WBC 5.9, platelets 183, hemoglobin 10.2, creatinine 9.16, BUN 51, sodium 134. Liver function tests normal. Urine culture Pseudomonas aeruginosa. IMPRESSION 1. UTI due to Pseudomonas. 2. Diabetes mellitus 3. History of AV fistula and DVT of the right upper extremity. RECOMMENDATIONS Continue to treat the UTI with piperacillin/tazobactam and repeat the urine culture on Friday which is two days from now to check for clearance and stop the antibiotics if the urine culture shows clearance of the bacteria in the urine. Thank you for this consultation. Jenn De La Torre MD FD/ /4:01 PM /5:02 PM
[2017-04-13] VITALS (7 sets, daily range): BP systolic 98–140; BP diastolic 61–71; PULSE 64–84; RESP 18–20; TEMP 95.4–97.6; O2SAT 94–99
[2017-04-13] MEDS: INSULIN ASPART 1,000 UNITS/10 ML VIAL SQ SCH ×4 (05:46→21:22)
[2017-04-13] MEDS: INSULIN ASPART SUPPLEMENTAL SCALE SQ SCH ×4 (05:46→21:23)
[2017-04-13] MEDS: INSULIN DETEMIR 100 UNITS/ML VIAL SQ SCH ×2 (09:11→21:00)
[2017-04-13] MEDS: VITAMIN B CMPLX/VITC/FOLIC AC CAP PO SCH (09:12)
[2017-04-13] MEDS: PANTOPRAZOLE SOD 40 MG DELAYED RELEASE TAB PO SCH (09:12)
[2017-04-13] MEDS: CALCIUM ACETATE 667 MG CAP PO SCH ×3 (09:12→17:16)
--- NOTE | 2017-04-13 09:32 | HHI.NPPN ---
Subjective Interval History Patient is comfortable. Seen by ID. Zosyn to be continued. Objective Data Data 04/12/17 04/13/17 19:00 07:00 Intake Total 660 ml 480 ml Output Total 400 ml Balance 660 ml 80 ml Intake Oral 560 ml 480 ml IV Total 100 ml Output Urine Total 400 ml # Voids 5 # Bowel Movements 2 Vital Signs Date Time Temp Pulse Resp B/P Pulse Ox O2 Delivery O2 Flow Rate FiO2 04/13/17 09:26 78 04/13/17 08:36 96.2 75 18 113/68 99 04/13/17 04:00 97.6 70 20 140/71 94 04/13/17 00:00 97.1 84 20 98/67 97 04/12/17 20:00 97.0 78 20 104/61 95 04/12/17 20:00 93 04/12/17 16:00 95.4 80 18 115/65 98 04/12/17 12:00 96.9 87 18 101/57 98 -: 04/11/17 0818 04/11/17 0818 Physical Exam General Appearance: Well Developed Appearance Remarks obese. Neck Neck Exam: Neck Supple Pulmonary Resp Exam: Clear Bilaterally, Breath Sounds Equal Cardiology CV Exam: Regular, Normal Sinus Rhythm Gastrointestinal/Abdomen GI Exam: Soft, Positive Bowel Movement Musculoskeletal MS Exam: Joints Intact Integumentary Skin Exam: Intact Extremeties Extremities Exam: No Edema Psychiatric Psych Exam: Appropriate Responses Assessment/Plan Problem List: (1) ESRD (end stage renal disease) on dialysis Plan: Continue HD MWF Has PermCath for dialysis, plans for AVF revision. (2) DM (diabetes mellitus) type II controlled with renal manifestation Plan: Continue insulin therapy. Patient had issues with glucometer at home. (3) Urinary tract infection Plan: + pseudomonas, placed on Zosyn, ID wants it continued. (4) Anemia Plan: epogen with dialysis Problem Qualifiers (1) Urinary tract infection: Qualified Code: N39.0 - Urinary tract infection without hematuria, site unspecified Roberth He MD Apr 13, 2017 09:32
--- NOTE | 2017-04-13 11:27 | HHI.PR ---
Subjective Remarks Follow-up for uncontrolled diabetes, UTI Patient has no complaints. Blood sugars this morning 160s. He remains afebrile. Objective Vitals Vital Signs Date Time Temp Pulse Resp B/P Pulse Ox O2 Delivery O2 Flow Rate FiO2 04/13/17 09:26 78 04/13/17 08:36 96.2 75 18 113/68 99 04/13/17 04:00 97.6 70 20 140/71 94 04/13/17 00:00 97.1 84 20 98/67 97 04/12/17 20:00 97.0 78 20 104/61 95 04/12/17 20:00 93 04/12/17 16:00 95.4 80 18 115/65 98 04/12/17 12:00 96.9 87 18 101/57 98 I/O 04/12/17 04/12/17 04/12/17 04/13/17 04/13/17 04/13/17 07:00 15:00 23:00 07:00 15:00 23:00 Intake Total 600 ml 660 ml 240 ml 240 ml Output Total 100 ml 200 ml 200 ml Balance 500 ml 660 ml 40 ml 40 ml Intake Oral 600 ml 560 ml 240 ml 240 ml IV Total 100 ml Output Urine Total 100 ml 200 ml 200 ml # Voids 2 5 # Bowel Movements 2 2 Result Diagram: 04/11/1781704/11/1718 Objective Remarks GENERAL: in NAD SKIN: right arm with swelling and wound dry, intact with mild yellowish clear discharge. HEAD: Normocephalic. EYES: No scleral icterus. No injection or drainage. NECK: Supple, trachea midline. No JVD or lymphadenopathy. CARDIOVASCULAR: Regular rate and rhythm without murmurs, gallops, or rubs. RESPIRATORY: Breath sounds equal bilaterally. No accessory muscle use. GASTROINTESTINAL: Abdomen soft, non-tender, nondistended. MUSCULOSKELETAL: No cyanosis, or edema. BACK: Nontender without obvious deformity. No CVA tenderness. Medications and IVs Current Medications Sodium Chloride (NS Flush) 2 ml UNSCH PRN IVF FLUSH AFTER USING IV ACCESS Last administered on 04/10/17 13:31; Start 04/10/17 at 13:30 Insulin Human Regular 10 units 10 units ONCE ONCE IV PUSH Last administered on 04/10/17 13:33; Start 04/10/17 at 13:30; Stop 04/10/17 at 13:31; Status DC Ceftriaxone Sodium/Sodium Chloride (Rocephin Inj/NS Inj) 100 ml @ 200 mls/hr ONCE ONCE IV Last administered on 04/10/17 14:53; Start 04/10/17 at 15:00; Stop 04/10/17 at 15:29; Status DC Insulin Human Regular 10 units 10 units ONCE ONCE IV PUSH Last administered on 04/10/17 15:08; Start 04/10/17 at 15:00; Stop 04/10/17 at 15:01; Status DC Sodium Chloride 1,000 ml @ 250 mls/hr Q4H IV ; Start 04/10/17 at 17:00; Stop 04/10/17 at 17:12; Status DC Dextrose/Sodium Chloride 1,000 ml @ 200 mls/hr Q5H IV ; Start 04/10/17 at 17:00 ; Stop 04/10/17 at 17:14; Status DC Insulin Human Regular/Sodium Chloride (NovoLIN R (IV INFUSION)/NS Inj) 100 ml @ 0 mls/hr TITRATE IV Last administered on 04/10/17 17:52; Start 04/10/17 at 17:00 ; Stop 04/10/17 at 21:02; Status DC Sodium Bicarbonate (Sodium Bicarbonate 8.4% Inj) 100 meq UNSCH PRN IV SEE LABEL COMMENTS; Start 04/10/17 at 16:15; Stop 04/10/17 at 21:02; Status DC Sodium Bicarbonate 50 meq 50 meq UNSCH PRN IV SEE LABEL COMMENTS; Start at 16:15; Stop 04/10/17 at 21:02; Status DC Sodium Phosphate 15 mmol/Sodium Chloride 105 ml @ 25 mls/hr UNSCH PRN IV SEE LABEL COMMENTS; Start 04/10/17 at 16:15; Stop 04/10/17 at 21:02; Status DC Ceftriaxone Sodium 1000 mg/ Sodium Chloride 100 ml @ 200 mls/hr Q24H IV Last administered on 04/11/17 16:35; Start 04/11/17 at 15:00; Stop 04/12/17 at 09:07; Status DC Sodium Chloride (NS 1000 ml Inj) 1,000 ml @ 75 mls/hr [id number] IV Last administered on 04/10/17 17:55; Start 04/10/17 at 17:15; Stop 04/10/17 at 21:33; Status DC Vitamin B Complex/ Vit C/Folic Acid (Nephrocaps) 1 cap DAILY PO Last administered on 04/13/17 09:12; Start 04/11/17 at 09:00 Calcium Acetate (Phoslo) 667 mg TID PO Last administered on 04/11/17 09:55; Start 04/10/17 at 18:00; Stop 04/11/17 at 14:06; Status DC Pantoprazole Sodium (Protonix) 40 mg DAILY PO Last administered on 04/13/17 09: 12; Start 04/11/17 at 09:00 Dextrose (D50w (Vial) Inj) 50 ml UNSCH PRN IV HYPOGLYCEMIA-SEE COMMENTS; Start 04/10/17 at 21:15 Glucagon (Glucagon Inj) 1 mg UNSCH PRN OTHER HYPOGLYCEMIA-SEE COMMENTS; Start 04/10/17 at 21:15 Insulin Aspart (NovoLOG SUPPLEMENTAL SCALE) 1 ACHS SLIDING SCALE SQ Last administered on 04/13/17 05:46; Start 04/11/17 at 07:00 Insulin Detemir (Levemir Inj) 8 units HS SQ Last administered on 04/11/17 21:17 ; Start 04/11/17 at 21:00; Stop 04/12/17 at 09:08; Status DC Insulin Aspart 10 units 10 units ACHS SQ Last administered on 04/13/17 05:46; Start 04/11/17 at 11:00 Sodium Chloride (NS 1000 ml Inj) 1,000 ml @ 0 mls/hr Q0M PRN IV For Prime & Rinse Back Last administered on 04/11/17 18:57; Start 04/11/17 at 12:29 Heparin Sodium (Porcine) 8000 units 8,000 units UNSCH PRN IVF WITH DIALYSIS; Start 04/11/17 at 12:30 Sodium Chloride 1,000 ml @ 200 mls/hr Q5H PRN IV WITH DIALYSIS; Start 04/11/17 at 12:29 Sodium Chloride (NS 1000 ml Inj) 1,000 ml @ 0 mls/hr Q0M PRN IV WITH DIALYSIS; Start 04/11/17 at 12:29 Mannitol (Mannitol Inj) 12.5 gm UNSCH PRN IV WITH DIALYSIS; Start 04/11/17 at 12 :30 Albumin Human (Albumin 25% Inj) 25 gm UNSCH PRN IV WITH DIALYSIS; Start at 12:30 Sodium Chloride (NS Flush) 5 ml UNSCH PRN IV FLUSH WITH DIALYSIS; Start at 12:30 Heparin Sodium (Porcine) (Heparin Inj) UNSCH PRN .XX WITH DIALYSIS Last administered on 04/11/17 18:56; Start 04/11/17 at 12:30 Gentamicin Sulfate (Gentamicin (Dialysis) Inj) 20 mg UNSCH PRN IV WITH DIALYSIS Last administered on 04/11/17 18:57; Start 04/11/17 at 12:30 Ondansetron HCl (Zofran Inj) 4 mg UNSCH PRN IV WITH DIALYSIS; Start 04/11/17 at 12:30 Acetaminophen (Tylenol) 650 mg UNSCH PRN PO for headach, pain, temp > 101F; Start 04/11/17 at 12:30 Diphenhydramine HCl (Benadryl) 25 mg UNSCH PRN PO for hives/itching/anaphylaxis ; Start 04/11/17 at 12:30 Nitroglycerin (Nitrostat Sl) 0.4 mg UNSCH PRN SL CHEST PAIN; Start 04/11/17 at 12:30 Clonidine (Catapres) 0.1 mg UNSCH PRN PO for BP > 180/100 X 2 readings; Start 04/11/17 at 12:30 Epoetin Gregory (Epogen Inj) 6,000 units UNSCH PRN IV WITH DIALYSIS Last administered on 04/11/17 18:56; Start 04/11/17 at 12:30 Gelatin (Gelfoam 12 Mm/7 Mm Top) 1 foam UNSCH PRN TOP SEE LABEL COMMENTS; Start 04/11/17 at 12:30 Calcium Acetate 2001 mg 2,001 mg TID PO Last administered on 04/13/17 09:12; Start 04/11/17 at 18:00 Piperacillin Sod/ Tazobactam Sod (Zosyn 2.25 Gm Premix) 50 ml @ 100 mls/hr Q12H IV Last administered on 04/12/17 22:00; Start 04/12/17 at 11:00 Insulin Detemir (Levemir Inj) 8 units Q12HR SQ Last administered on 7/9/17at 09 :11; Start 04/12/17 at 09:15 A/P Assessment and Plan 72-year-old male with type 2 diabetes insulin-dependent and end-stage renal disease status post recent right upper extremity brachiobasilic AV fistula transposition who presented with elevated blood sugar secondary to noncompliance HHN, mild versus uncontrolled hyperglycemia due to noncompliance -Improved. -Serum osmolality increased. Blood sugars in the 700s. Status post insulin drip. -See treatment below Type 2 diabetes insulin-dependent -Noncompliance. -Home dosage Lantus 8 units at bedtime and 20 units of NovoLog before meals. -Blood sugars better controlled now and 160s. Continue with Levemir to 8 units twice a day and continue with NovoLog 10 units before meals and insulin sliding scale. Urinary tract infection Pseudomonas -Rocephin d/c on 04/12 and snow on Zosyn. -Infectious disease consulted due to multi-resistance and only sensitive to IV medication. Per infectious disease continue with Zosyn and repeat urine cultures tomorrow. If cultures are negative can discontinue antibiotics. Right arm swelling -Per vascular surgeon this may be due to stenosis of the AV fistula site. Stable. -Since patient requires continual hospitalization will consult his vascular surgeon Dr. Luong for possible fistulogram. End-stage renal disease -Patient gets dialysis on Friday, Friday, Friday. -Neurologists is following. GERD -Continue with home medication. DVT prophylaxis -scd. Patient is on Eliquis but has been held secondary to procedure. Will continue to hold eliquis since he may have surgery this week. Discharge Planning Due to medical complexity patient requires continual hospitalization. Estefani Tompkins MD Apr 13, 2017 11:27
[2017-04-13] MEDS: PIPERACIL-TAZO 2.25 GM PREMIX 50 ML IV SCH ×2 (12:25→23:49)
--- NOTE | 2017-04-13 13:00 | PD.VS.CON ---
History of Present Illness Chief Complaint: Right arm swelling. Recent UTI with hyperglycemia, admitted for medical management. Consult Requested by: Neri De La Torre History of Present Illness Pleasant 72 year old AAM (ESRD) with hx of right upper extremity Brachiobasilic vein transposition. Post-op swelling, AVF patent by duplex US. 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 Plan for outpatient fistulogram last week. Presented with blood sugar over 700 sent to ER. Found to have UTI and didn't have blood glucose strips/glucometer at home. Was admitted for IV abx and blood sugar control. Past/Family/Social History Past Medical History Past Medical History Type 2 diabetes insulin-dependent End-stage renal disease BPH Past Surgical History right upper extremity brachiobasilic AV fistula transposition Right upper strength brachiobasilic AV fistula Circumcision Tunnel catheter placement GERD Home Medications Reported Medications Insulin Lispro Protamine-Lispro 75-25 Inj (Humalog Mix 75-25 Inj)1,000 Unit/10 Ml Susp1 Units SQ Ref 0 01/28/17 Insulin Glargine Inj (Lantus Inj)1,000 Unit/10 Ml Vial8 Units SQ HS Ref 0 11/05/16 Apixaban (Eliquis)2.5 Mg Tab2.5 Mg PO BID Ref 0 11/05/16 Pantoprazole 40 Mg Tab40 Mg PO DAILY #30 TAB Ref 0 11/05/16 B-Complex W/ C & Folic Acid (Renal Vitamin)1 Cap1 Cap PO DAILY #30 CAP Ref 0 If on dialysis, take after treatment. 11/05/16 Calcium Acetate (Phosphate Binder) 667 Mg Qbr075 Mg PO TID #90 TAB Ref 0 11/05/16 Furosemide 40 Mg Tab40 Mg PO sututhsa #30 TAB Ref 0 11/05/16 Discontinued Reported Medications Aspirin 81 Mg Tabdr81 Mg PO DAILY 11/05/16 Diphenhydramine (Benadryl Allergy)25 Mg Tab25 Mg PO HS PRN (ALLERGIES) Ref 0 11/05/16 Coded Allergies: No Known Allergies (Verified , 04/10/17) Review of Systems Musculoskeletal: COMPLAINS OF: Muscle aches (right arm swollen) Integumentary: COMPLAINS OF: Abnormal pigmentation, Nail changes, Pruritus, Rash Physical Exam Vitals/I&O Date Time Temp Pulse Resp B/P Pulse Ox O2 Delivery O2 Flow Rate FiO2 04/13/17 12:34 95.4 65 18 117/67 99 04/13/17 09:26 78 04/13/17 08:36 96.2 75 18 113/68 99 04/13/17 04:00 97.6 70 20 140/71 94 04/13/17 00:00 97.1 84 20 98/67 97 04/12/17 20:00 97.0 78 20 104/61 95 04/12/17 20:00 93 04/12/17 16:00 95.4 80 18 115/65 98 Neuro: intact HEENT: supple Heart: regular Lungs: No rhales Abdomen: protuberant Vascular: right arm with audible bruit. Extremities: right arm swollen with non-pitting edema. Date/Time Procedure Status Source Growth 04/10/17 14:00 Urine Culture - Final Complete Urine Clean Catch Pseudomonas Aeruginosa Assessment and Plan Assessment: (1) DM (diabetes mellitus) type II controlled with renal manifestation Status: Acute (2) ESRD (end stage renal disease) on dialysis Status: Chronic Plan 72 year old male with hx of ESRD right brachiobasilic transposition with arm swelling post-op. Maybe central vein stenosis. Plan for fistulogram in am 04/14/2017. Patient marked and consented. Nephrology notified. Will hold HD to afternoon. Ben Luong DO, Ben Cline DO Apr 13, 2017 13:00
[2017-04-14] VITALS: BP 105/63; PULSE 72; RESP 20; TEMP 96.2; O2SAT 97
[2017-04-14] MEDS: INSULIN ASPART 1,000 UNITS/10 ML VIAL SQ SCH ×4 (05:44→21:58)
[2017-04-14] MEDS: INSULIN ASPART SUPPLEMENTAL SCALE SQ SCH ×4 (05:45→21:59)
[2017-04-14 06:08] VITALS: BP 114/61; PULSE 66; RESP 20; TEMP 96.2; O2SAT 94
[2017-04-14 08:00] VITALS: BP 108/62; PULSE 61; RESP 16; TEMP 97.5; O2SAT 99
[2017-04-14] MEDS: PANTOPRAZOLE SOD 40 MG DELAYED RELEASE TAB PO SCH (09:00)
[2017-04-14] MEDS: VITAMIN B CMPLX/VITC/FOLIC AC CAP PO SCH (09:00)
[2017-04-14] MEDS: CALCIUM ACETATE 667 MG CAP PO SCH ×3 (09:00→18:18)
--- NOTE | 2017-04-14 09:46 | HHI.NPPN ---
Subjective Renal Failure: Chronic, End Stage Renal Disease Interval History Seen during dialysis. Due for fistulogram today. (Ana Hodgson) Objective Data Data 04/13/17 04/14/17 19:00 07:00 Intake Total 480 ml Balance 480 ml Intake Oral 480 ml # Voids 5 1 # Bowel Movements 1 1 Vital Signs Date Time Temp Pulse Resp B/P Pulse Ox O2 Delivery O2 Flow Rate FiO2 04/14/17 08:00 97.5 61 16 108/62 99 04/14/17 06:08 96.2 66 20 114/61 94 04/14/17 00:00 96.2 72 20 105/63 97 04/13/17 20:00 96.0 65 20 130/61 96 04/13/17 16:32 95.5 64 18 112/63 98 04/13/17 12:34 95.4 65 18 117/67 99 (Ana Hodgson) -: 04/11/17 0818 04/11/17 0818 Physical Exam General Appearance: Well Developed, No Acute Distress, Comfortable (Ana Hodgson) Neck Neck Exam: Neck Supple (Ana Hodgson) Pulmonary Resp Exam: Clear Bilaterally, Breath Sounds Equal (Ana Hodgson) Cardiology CV Exam: Regular, Normal Sinus Rhythm (Ana Hodgson) Chest/Breast Chest/Breast Remarks permcath left chest (Ana Hodgson) Gastrointestinal/Abdomen GI Exam: Soft, Non-Tender, Positive Bowel Movement (Ana Hodgson) Musculoskeletal MS Exam: Joints Intact, Good Strength (Ana Hodgson) Integumentary Skin Exam: Warm, Intact (Ana Hodgson) Extremeties Extremities Exam: Pedal Pulses Palpable, Moderate Edema Extremeties Remarks wound left lateral lower leg, dressing in place right arm AVF, edematous, + thrill/bruit, some scabbing (Ana Hodgson ) Neurologic Neuro Exam: Alert, Awake, Oriented, Speech Clear, Moving All Extremities ( Ana Hodgson) Psychiatric Psych Exam: Appropriate Responses (Ana Hodgson) Assessment/Plan Discussed Condition With: Patient Assessment Summary: Anemia of CKD, Hypertension, End Stage Renal Disease Problem List: (1) ESRD (end stage renal disease) on dialysis Plan: Continue HD MWF, seen during dialysis today on a 3K, 300 BFR, goal 3L has Permcath on left for dialysis intermittent metabolic profile avoid IVF, gadolinium no dietary protein restriction vascular following, due for fistulogram today, may require further intervention (2) DM (diabetes mellitus) type II controlled with renal manifestation Plan: Continue insulin therapy. glucose goal 140-180 mg/dL Patient had issues with glucometer at home. (3) Urinary tract infection Plan: oliguric at baseline, + pseudomonas placed on Zosyn ID following (4) Anemia Plan: continue epogen with dialysis (Ana Hodgson) Plan patient was seen and examined. To have Fistulogram today. Seen during dialysis. (Roberth He MD) Problem Qualifiers (1) Urinary tract infection: Qualified Code: N39.0 - Urinary tract infection without hematuria, site unspecified Ana Hodgson Apr 14, 2017 09:46 Roberth He MD Apr 14, 2017 09:52
[2017-04-14] MEDS ORDERED: MIDAZOLAM HCL 5 MG/ML VIAL (1 ML) ONE (10:41)
[2017-04-14] MEDS ORDERED: HEPARIN SODIUM - IV 10,000 UNITS/10 ML VIAL ONE (10:41)
[2017-04-14] MEDS ORDERED: IOHEXOL 300 MG/ML 50 ML BTL (for RAD DIAG) OTHER ONE (10:54)
[2017-04-14] MEDS: PIPERACIL-TAZO 2.25 GM PREMIX 50 ML IV SCH ×2 (11:00→21:54)
--- NOTE | 2017-04-14 11:42 | PD.VS.PN ---
Subjective Subjective/Hospital Course right arm swelling. Objective Vitals/I&O Date Time Temp Pulse Resp B/P Pulse Ox O2 Delivery O2 Flow Rate FiO2 04/14/17 08:00 97.5 61 16 108/62 99 04/14/17 06:08 96.2 66 20 114/61 94 04/14/17 00:00 96.2 72 20 105/63 97 04/13/17 20:00 96.0 65 20 130/61 96 04/13/17 16:32 95.5 64 18 112/63 98 04/13/17 12:34 95.4 65 18 117/67 99 Physical Exam right arm swollen with 2+edema Palpable thrill right upper extremity. Laboratory Date/Time Procedure Status Source Growth 04/10/17 14:00 Urine Culture - Final Complete Urine Clean Catch Pseudomonas Aeruginosa Assessment and Plan Assessment: (1) DM (diabetes mellitus) type II controlled with renal manifestation Status: Acute (2) ESRD (end stage renal disease) on dialysis Status: Chronic Plan 72 year old male with hx of ESRD right brachiobasilic transposition with arm swelling post-op. Status post fistulogram. 1.Findings of occluded right SC stent but patent right basilic vein. 2.Tx with arm compression to allow for more collateralization and possible use as low-flow fistula. 3. In interim follow up in office in 1-2 weeks after discharge to vein map and explore options for another fistula in other extremity. Ben Luong DO, Ben Cline DO Apr 14, 2017 11:42
--- NOTE | 2017-04-14 11:46 | MA ---
cc: PETE ORDAZ DATE: 04/14/2017 PREOPERATIVE DIAGNOSIS Right upper extremity swelling. POSTOPERATIVE DIAGNOSIS Right upper extremity swelling. PROCEDURE Right upper extremity fistulogram. DETAILS OF PROCEDURE Using Duplex ultrasound I got access to the right upper extremity basilic vein. I exchanged for a 4-Fijian micropuncture catheter and then exchanged for a 5-Fijian sheath. I shot a right upper extremity fistulogram which showed that the outflow basilic vein was patent and the axillary vein was also patent. There was an occlusion of the subclavian vein, but you could see flow through the internal jugular vein distally to this occlusion. There appeared to be a previously placed stent that was occluded as well. I then advanced a stiff angled Glidewire to try to cross the lesion and was not able to advance it with a catheter. Based on this I removed the catheter out of the right arm then placed a pursestring suture in the arm. DO REJI Colon/MARICRUZ /11:31 AM /11:37 AM
--- NOTE | 2017-04-14 14:55 | HHI.PR ---
Objective Vitals Vital Signs Date Time Temp Pulse Resp B/P Pulse Ox O2 Delivery O2 Flow Rate FiO2 04/14/17 08:00 97.5 61 16 108/62 99 04/14/17 06:08 96.2 66 20 114/61 94 04/14/17 00:00 96.2 72 20 105/63 97 04/13/17 20:00 96.0 65 20 130/61 96 04/13/17 16:32 95.5 64 18 112/63 98 I/O 04/13/17 04/13/17 04/13/17 04/14/17 04/14/17 04/14/17 07:00 15:00 23:00 07:00 15:00 23:00 Intake Total 240 ml 480 ml Output Total 200 ml 1000 ml Balance 40 ml 480 ml -1000 ml Intake Oral 240 ml 480 ml Output Urine Total 200 ml Hemodialysis 1000 ml # Voids 5 1 # Bowel Movements 1 1 Result Diagram: 04/11/1781704/11/17817 Objective Remarks GENERAL: in NAD SKIN: right arm with swelling and wound dry, intact with mild yellowish clear discharge. HEAD: Normocephalic. EYES: No scleral icterus. No injection or drainage. NECK: Supple, trachea midline. No JVD or lymphadenopathy. CARDIOVASCULAR: Regular rate and rhythm without murmurs, gallops, or rubs. RESPIRATORY: Breath sounds equal bilaterally. No accessory muscle use. GASTROINTESTINAL: Abdomen soft, non-tender, nondistended. MUSCULOSKELETAL: No cyanosis, or edema. BACK: Nontender without obvious deformity. No CVA tenderness. A/P Assessment and Plan 72-year-old male with type 2 diabetes insulin-dependent and end-stage renal disease status post recent right upper extremity brachiobasilic AV fistula transposition who presented with elevated blood sugar secondary to noncompliance HHN, mild versus uncontrolled hyperglycemia due to noncompliance -Improved. -Serum osmolality increased. Blood sugars in the 700s. Status post insulin drip. -See treatment below Type 2 diabetes insulin-dependent -Noncompliance. -Home dosage Lantus 8 units at bedtime and 20 units of NovoLog before meals. -Blood sugars better controlled now and 160s. Continue with Levemir to 8 units twice a day and continue with NovoLog 10 units before meals and insulin sliding scale. Urinary tract infection Pseudomonas -Rocephin d/c on 04/12 and now on Zosyn. -Infectious disease consulted due to multi-resistance and only sensitive to IV medication. Per infectious disease continue with Zosyn and urine was scheduled to be repeated at 6 am today which not done. I d/w nurse to have to this done TORI. s/p right brachiobasilic transposition with arm swelling -s/p fistulogram on 04/14 showing occluded right SC stent but patent right basilic vein. -per vascular treat with arm compression to allow for more collateralization and possible use as low-flow fistula. -f/u with vascular in 1-2 weeks after discharge to vein map and explore options for another fistula in other extremity. End-stage renal disease -Patient gets dialysis on Friday, Friday, Friday. -Neurologists is following. GERD -Continue with home medication. DVT prophylaxis -scd. consider restarting eliquis. Discharge Planning Due to medical complexity patient requires continual hospitalization. pending negative urine cultures before discharge. Estefani Tompkins MD Apr 14, 2017 14:55
[2017-04-14] MEDS: EPOETIN ALFA 10,000 UNITS/ML VIAL IV PRN (16:50)
[2017-04-14] MEDS: HEPARIN SODIUM - IV 10,000 UNITS/10 ML VIAL PRN (16:50)
[2017-04-14] MEDS: GENTAMICIN SULFATE (DIALYSIS USE ONLY) 20 MG/2 ML VIAL IV PRN (16:51)
[2017-04-14 17:03] VITALS: BP 131/78; PULSE 98; RESP 20; TEMP 98.3; O2SAT 93
[2017-04-14 21:26] VITALS: BP 111/60; PULSE 82; RESP 20; TEMP 97.7; O2SAT 98
[2017-04-15] VITALS (7 sets, daily range): BP systolic 95–118; BP diastolic 53–86; PULSE 66–95; RESP 18–20; TEMP 95.2–97.6; O2SAT 95–100
[2017-04-15] MEDS: INSULIN ASPART 1,000 UNITS/10 ML VIAL SQ SCH ×4 (06:30→20:46)
[2017-04-15] MEDS: INSULIN ASPART SUPPLEMENTAL SCALE SQ SCH ×4 (06:31→20:48)
[2017-04-15] MEDS: PANTOPRAZOLE SOD 40 MG DELAYED RELEASE TAB PO SCH (08:49)
[2017-04-15] MEDS: VITAMIN B CMPLX/VITC/FOLIC AC CAP PO SCH (08:49)
[2017-04-15] MEDS: CALCIUM ACETATE 667 MG CAP PO SCH ×3 (08:50→17:31)
--- NOTE | 2017-04-15 10:20 | PD.VS.PN ---
Subjective Subjective/Hospital Course Pt sitting in chair this am w/o complaints Right arm swelling with slight improvement Pt denies pain (Eliane Rucker) Objective Vitals/I&O Date Time Temp Pulse Resp B/P Pulse Ox O2 Delivery O2 Flow Rate FiO2 04/15/17 08:31 95.8 70 20 107/61 100 04/15/17 06:43 96.1 80 20 100/86 98 04/15/17 01:57 97.6 95 20 95/53 95 04/14/17 21:26 97.7 82 20 111/60 98 Physical Exam GENERAL: A&O, NAD, GCS15 SKIN: Warm and dry/ Right arm swelling present, motor intact, warm (Eliane Rucker) Laboratory Date/Time Procedure Status Source Growth 04/14/17 18:00 Urine Culture Received Urine Clean Catch Pending 04/10/17 14:00 Urine Culture - Final Complete Urine Clean Catch Pseudomonas Aeruginosa (Eliane Rucker) Assessment and Plan Assessment: (1) DM (diabetes mellitus) type II controlled with renal manifestation Status: Acute (2) ESRD (end stage renal disease) on dialysis Status: Chronic Plan 72 year old male with hx of ESRD right brachiobasilic transposition with arm swelling post-op. Pt is s/p fistulogram with findings of an occluded right SC stent but patent right basilic vein Plan Continue Tx with arm compression to allow for more collateralization and possible use as low-flow fistula Arranged Out Patient F/U 2W post d/c Eliane ZENG [facility]/[place] [phone] Discharge Planning From a vascular standpoint pt clear for d/c Arranged for F/U Appointment time given to patient (Eliane Rucker) Plan I agree with above A/P. Follow up as outpatient to determine if new access can be created. Ben Luong DO, FACS [employer] Professor [employer] /[place] (Ben Luong DO) Eliane Rucker Apr 15, 2017 10:20 Ben Luong DO Apr 17, 2017 13:08
--- NOTE | 2017-04-15 10:39 | HHI.PR ---
Subjective Remarks Follow-up for uncontrolled diabetes and UTI Patient blood sugars were in the upper 100s and 300s. Otherwise he has no other complaints. He stated that he is doing well. Objective Vitals Vital Signs Date Time Temp Pulse Resp B/P Pulse Ox O2 Delivery O2 Flow Rate FiO2 04/15/17 08:31 95.8 70 20 107/61 100 04/15/17 06:43 96.1 80 20 100/86 98 04/15/17 01:57 97.6 95 20 95/53 95 04/14/17 21:26 97.7 82 20 111/60 98 I/O 04/14/17 04/14/17 04/14/17 04/15/17 04/15/17 04/15/17 06:59 14:59 22:59 06:59 14:59 22:59 Output Total 1000 ml 2000 ml Balance -1000 ml -2000 ml Hemodialysis 1000 ml 2000 ml # Voids 1 1 # Bowel Movements 1 1 Result Diagram: 04/11/1718 04/11/1718 Objective Remarks GENERAL: in NAD SKIN: right arm with swelling and wound dry, intact with mild yellowish clear discharge. HEAD: Normocephalic. EYES: No scleral icterus. No injection or drainage. NECK: Supple, trachea midline. No JVD or lymphadenopathy. CARDIOVASCULAR: Regular rate and rhythm without murmurs, gallops, or rubs. RESPIRATORY: Breath sounds equal bilaterally. No accessory muscle use. GASTROINTESTINAL: Abdomen soft, non-tender, nondistended. MUSCULOSKELETAL: No cyanosis, or edema. BACK: Nontender without obvious deformity. No CVA tenderness. Medications and IVs Current Medications Sodium Chloride (NS Flush) 2 ml UNSCH PRN IVF FLUSH AFTER USING IV ACCESS Last administered on 04/10/17 13:31; Start 04/10/17 at 13:30 Insulin Human Regular 10 units 10 units ONCE ONCE IV PUSH Last administered on 04/10/17 13:33; Start 04/10/17 at 13:30; Stop 04/10/17 at 13:31; Status DC Ceftriaxone Sodium/Sodium Chloride (Rocephin Inj/NS Inj) 100 ml @ 200 mls/hr ONCE ONCE IV Last administered on 04/10/17 14:53; Start 04/10/17 at 15:00; Stop 04/10/17 at 15:29; Status DC Insulin Human Regular 10 units 10 units ONCE ONCE IV PUSH Last administered on 04/10/17 15:08; Start 04/10/17 at 15:00; Stop 04/10/17 at 15:01; Status DC Sodium Chloride 1,000 ml @ 250 mls/hr Q4H IV ; Start 04/10/17 at 17:00; Stop 04/10/17 at 17:12; Status DC Dextrose/Sodium Chloride 1,000 ml @ 200 mls/hr Q5H IV ; Start 04/10/17 at 17:00 ; Stop 04/10/17 at 17:14; Status DC Insulin Human Regular/Sodium Chloride (NovoLIN R (IV INFUSION)/NS Inj) 100 ml @ 0 mls/hr TITRATE IV Last administered on 04/10/17 17:52; Start 04/10/17 at 17:00 ; Stop 04/10/17 at 21:02; Status DC Sodium Bicarbonate (Sodium Bicarbonate 8.4% Inj) 100 meq UNSCH PRN IV SEE LABEL COMMENTS; Start 04/10/17 at 16:15; Stop 04/10/17 at 21:02; Status DC Sodium Bicarbonate 50 meq 50 meq UNSCH PRN IV SEE LABEL COMMENTS; Start at 16:15; Stop 04/10/17 at 21:02; Status DC Sodium Phosphate 15 mmol/Sodium Chloride 105 ml @ 25 mls/hr UNSCH PRN IV SEE LABEL COMMENTS; Start 04/10/17 at 16:15; Stop 04/10/17 at 21:02; Status DC Ceftriaxone Sodium 1000 mg/ Sodium Chloride 100 ml @ 200 mls/hr Q24H IV Last administered on 04/11/17 16:35; Start 04/11/17 at 15:00; Stop 04/12/17 at 09:07; Status DC Sodium Chloride (NS 1000 ml Inj) 1,000 ml @ 75 mls/hr [id number] IV Last administered on 04/10/17 17:55; Start 04/10/17 at 17:15; Stop 04/10/17 at 21:33; Status DC Vitamin B Complex/ Vit C/Folic Acid (Nephrocaps) 1 cap DAILY PO Last administered on 04/15/17 08:49; Start 04/11/17 at 09:00 Calcium Acetate (Phoslo) 667 mg TID PO Last administered on 04/11/17 09:55; Start 04/10/17 at 18:00; Stop 04/11/17 at 14:06; Status DC Pantoprazole Sodium (Protonix) 40 mg DAILY PO Last administered on 04/15/17 08 :49; Start 04/11/17 at 09:00 Dextrose (D50w (Vial) Inj) 50 ml UNSCH PRN IV HYPOGLYCEMIA-SEE COMMENTS; Start 04/10/17 at 21:15 Glucagon (Glucagon Inj) 1 mg UNSCH PRN OTHER HYPOGLYCEMIA-SEE COMMENTS; Start 04/10/17 at 21:15 Insulin Aspart (NovoLOG SUPPLEMENTAL SCALE) 1 ACHS SLIDING SCALE SQ Last administered on 04/15/17 06:31; Start 04/11/17 at 07:00 Insulin Detemir (Levemir Inj) 8 units HS SQ Last administered on 04/11/17 21:17 ; Start 04/11/17 at 21:00; Stop 04/12/17 at 09:08; Status DC Insulin Aspart 10 units 10 units ACHS SQ Last administered on 04/15/17 06:30; Start 04/11/17 at 11:00 Sodium Chloride (NS 1000 ml Inj) 1,000 ml @ 0 mls/hr Q0M PRN IV For Prime & Rinse Back Last administered on 04/11/17 18:57; Start 04/11/17 at 12:29 Heparin Sodium (Porcine) 8000 units 8,000 units UNSCH PRN IVF WITH DIALYSIS; Start 04/11/17 at 12:30 Sodium Chloride 1,000 ml @ 200 mls/hr Q5H PRN IV WITH DIALYSIS; Start 04/11/17 at 12:29 Sodium Chloride (NS 1000 ml Inj) 1,000 ml @ 0 mls/hr Q0M PRN IV WITH DIALYSIS; Start 04/11/17 at 12:29 Mannitol (Mannitol Inj) 12.5 gm UNSCH PRN IV WITH DIALYSIS; Start 04/11/17 at 12 :30 Albumin Human (Albumin 25% Inj) 25 gm UNSCH PRN IV WITH DIALYSIS; Start at 12:30 Sodium Chloride (NS Flush) 5 ml UNSCH PRN IV FLUSH WITH DIALYSIS; Start at 12:30 Heparin Sodium (Porcine) (Heparin Inj) UNSCH PRN .XX WITH DIALYSIS Last administered on 04/14/17 16:50; Start 04/11/17 at 12:30 Gentamicin Sulfate (Gentamicin (Dialysis) Inj) 20 mg UNSCH PRN IV WITH DIALYSIS Last administered on 04/14/17 16:51; Start 04/11/17 at 12:30 Ondansetron HCl (Zofran Inj) 4 mg UNSCH PRN IV WITH DIALYSIS; Start 04/11/17 at 12:30 Acetaminophen (Tylenol) 650 mg UNSCH PRN PO for headach, pain, temp > 101F; Start 04/11/17 at 12:30 Diphenhydramine HCl (Benadryl) 25 mg UNSCH PRN PO for hives/itching/anaphylaxis ; Start 04/11/17 at 12:30 Nitroglycerin (Nitrostat Sl) 0.4 mg UNSCH PRN SL CHEST PAIN; Start 04/11/17 at 12:30 Clonidine (Catapres) 0.1 mg UNSCH PRN PO for BP > 180/100 X 2 readings; Start 04/11/17 at 12:30 Epoetin Gregory (Epogen Inj) 6,000 units UNSCH PRN IV WITH DIALYSIS Last administered on 04/14/17 16:50; Start 04/11/17 at 12:30 Gelatin (Gelfoam 12 Mm/7 Mm Top) 1 foam UNSCH PRN TOP SEE LABEL COMMENTS; Start 04/11/17 at 12:30 Calcium Acetate 2001 mg 2,001 mg TID PO Last administered on 04/15/17 08:50; Start 04/11/17 at 18:00 Piperacillin Sod/ Tazobactam Sod (Zosyn 2.25 Gm Premix) 50 ml @ 100 mls/hr Q12H IV Last administered on 04/14/17 21:54; Start 04/12/17 at 11:00 Insulin Detemir (Levemir Inj) 8 units Q12HR SQ Last administered on 04/13/17 21 :00; Start 04/12/17 at 09:15; Stop 04/15/17 at 10:20; Status DC Heparin Sodium (Porcine) (Heparin Inj) 10,000 units STK-MED ONCE .ROUTE Last administered on 04/14/17 10:41; Start 04/14/17 at 10:41; Stop 04/14/17 at 10:42 ; Status DC Midazolam HCl (Versed Inj) 5 mg STK-MED ONCE .ROUTE Last administered on 10:41; Start 04/14/17 at 10:41; Stop 04/14/17 at 10:42; Status DC Fentanyl Citrate (fentaNYL INJ) 100 mcg STK-MED ONCE .ROUTE Last administered on 04/14/17 10:41; Start 04/14/17 at 10:41; Stop 04/14/17 at 10:42; Status DC Heparin Sodium (Porcine) (*HEPARIN INJ Periprocedural ONLY) 10,000 units STK- MED ONCE OTHER Last administered on 04/14/17 10:53; Start 04/14/17 at 10:53; Stop 04/14/17 at 10:55; Status DC Iohexol (Omnipaque 300 Inj) 50 ml STK-MED ONCE OTHER Last administered on 10:54; Start 04/14/17 at 10:54; Stop 04/14/17 at 10:55; Status DC Insulin Detemir (Levemir Inj) 12 units Q12HR SQ ; Start 04/15/17 at 21:00 A/P Assessment and Plan 72-year-old male with type 2 diabetes insulin-dependent and end-stage renal disease status post recent right upper extremity brachiobasilic AV fistula transposition who presented with elevated blood sugar secondary to noncompliance HHN, mild versus uncontrolled hyperglycemia due to noncompliance -Improved. -Serum osmolality increased. Blood sugars in the 700s. Status post insulin drip. -See treatment below Type 2 diabetes insulin-dependent -Noncompliance. -Home dosage Lantus 8 units at bedtime and 20 units of NovoLog before meals. -Blood sugars better controlled now and 160s. Continue with Levemir to 8 units twice a day and continue with NovoLog 10 units before meals and insulin sliding scale. Urinary tract infection Pseudomonas -Rocephin d/c on 04/12 and now on Zosyn. -Infectious disease consulted due to multi-resistance and only sensitive to IV medication. Per infectious disease continue with Zosyn and if repeat urine cultures are negative can DC Zosyn. s/p right brachiobasilic transposition with arm swelling -s/p fistulogram on 04/14 showing occluded right SC stent but patent right basilic vein. -per vascular treat with arm compression to allow for more collateralization and possible use as low-flow fistula. -f/u with vascular in 1-2 weeks after discharge to vein map and explore options for another fistula in other extremity. End-stage renal disease -Patient gets dialysis on Friday, Friday, Friday. -Neurologists is following. GERD -Continue with home medication. DVT prophylaxis -scd. consider restarting eliquis. Discharge Planning Due to medical complexity patient requires continual hospitalization. pending negative urine cultures before discharge. Estefani Tompkins MD Apr 15, 2017 10:39
--- NOTE | 2017-04-15 11:12 | HHI.NPPN ---
Subjective Renal Failure: Chronic, End Stage Renal Disease Interval History Sitting up in chair. Fistulogram results reviewed. No current concerns. ( Ana Hodgson) Objective Data Data 04/14/17 04/15/17 19:00 07:00 Output Total 3000 ml Balance -3000 ml Hemodialysis 3000 ml # Voids 1 # Bowel Movements 1 Vital Signs Date Time Temp Pulse Resp B/P Pulse Ox O2 Delivery O2 Flow Rate FiO2 04/15/17 08:31 95.8 70 20 107/61 100 04/15/17 06:43 96.1 80 20 100/86 98 04/15/17 01:57 97.6 95 20 95/53 95 04/14/17 21:26 97.7 82 20 111/60 98 (Ana Hodgson) -: 04/11/17 0818 04/11/17 0818 Microbiology 04/14/17 Urine Culture, Received Pending (Ana Hodgson) Physical Exam General Appearance: Well Developed, No Acute Distress, Comfortable, Obese (Ana Hodgson) Neck Neck Exam: Neck Supple (Ana Hodgson) Pulmonary Resp Exam: Clear Bilaterally, Breath Sounds Equal (Ana Hodgson) Cardiology CV Exam: Regular, Normal Sinus Rhythm (Ana Hodgson) Chest/Breast Chest/Breast Remarks permcath left chest (Ana Hodgson) Gastrointestinal/Abdomen GI Exam: Soft, Non-Tender, Positive Bowel Movement (Ana Hodgson) Musculoskeletal MS Exam: Joints Intact, Good Strength (Ana Hodgson) Integumentary Skin Exam: Warm, Intact (Ana Hodgson) Extremeties Extremities Exam: Pedal Pulses Palpable, Moderate Edema Extremeties Remarks wound left lateral lower leg, dressing in place right arm AVF, edematous, + thrill/bruit, some scabbing (Ana Hodgson ) Neurologic Neuro Exam: Alert, Awake, Oriented, Speech Clear, Moving All Extremities ( Ana Hodgson) Psychiatric Psych Exam: Appropriate Responses (Ana Hodgson) Assessment/Plan Discussed Condition With: Patient Assessment Summary: Anemia of CKD, Hypertension, End Stage Renal Disease Problem List: (1) ESRD (end stage renal disease) on dialysis Plan: Continue HD MWF, 3L UF yesterday has Permcath on left for dialysis renal panel ordered avoid IVF, gadolinium no dietary protein restriction can resume outpatient HD arrangements if discharged vascular following, s/p fistulogram, no intervention, to follow up outpatient for new AVF creation (2) DM (diabetes mellitus) type II controlled with renal manifestation Plan: Continue insulin therapy. glucose goal 140-180 mg/dL Patient had issues with glucometer at home. (3) Urinary tract infection Plan: oliguric at baseline, + pseudomonas on culture Zosyn continues ID following (4) Anemia Plan: continue epogen with dialysis (Ana Hodgson) Plan patient was seen and examined. Agree with above assessment and plan. He can be discharged from renal standpoint. (Roberth He MD) Problem Qualifiers (1) Urinary tract infection: Qualified Code: N39.0 - Urinary tract infection without hematuria, site unspecified Ana Hodgson Apr 15, 2017 11:12 Roberth He MD Apr 16, 2017 09:40
[2017-04-15] MEDS: PIPERACIL-TAZO 2.25 GM PREMIX 50 ML IV SCH ×2 (11:42→22:00)
[2017-04-15] MEDS: INSULIN DETEMIR 100 UNITS/ML VIAL SQ SCH (20:45)
[2017-04-16] VITALS (8 sets, daily range): BP systolic 100–125; BP diastolic 56–73; PULSE 68–82; RESP 18–20; TEMP 96.3–98; O2SAT 92–99
[2017-04-16] MEDS: INSULIN ASPART 1,000 UNITS/10 ML VIAL SQ SCH ×4 (06:28→21:55)
[2017-04-16] MEDS: INSULIN ASPART SUPPLEMENTAL SCALE SQ SCH ×4 (06:29→21:56)
[2017-04-16] MEDS: INSULIN DETEMIR 100 UNITS/ML VIAL SQ SCH ×2 (07:45→21:56)
[2017-04-16] MEDS: EPOETIN ALFA 10,000 UNITS/ML VIAL IV PRN (08:54)
[2017-04-16] MEDS: HEPARIN SODIUM - IV 10,000 UNITS/10 ML VIAL PRN (08:54)
[2017-04-16] MEDS: CALCIUM ACETATE 667 MG CAP PO SCH ×3 (09:00→17:50)
[2017-04-16] MEDS: VITAMIN B CMPLX/VITC/FOLIC AC CAP PO SCH (09:00)
--- NOTE | 2017-04-16 09:45 | HHI.NPPN ---
Subjective Renal Failure: Chronic, End Stage Renal Disease Interval History Seen during dialysis. His insulin dose was increased. No new concerns. ( Ana Hodgson) Objective Data Data 04/15/17 04/16/17 19:00 07:00 Intake Total 720 ml 50 ml Output Total 1000 ml Balance 720 ml -950 ml Intake Oral 720 ml IV Total 50 ml Output Urine Total 1000 ml # Voids 2 Vital Signs Date Time Temp Pulse Resp B/P Pulse Ox O2 Delivery O2 Flow Rate FiO2 04/16/17 08:34 96.3 70 20 125/57 99 04/16/17 04:00 97.5 79 20 108/73 97 04/16/17 01:00 98.0 82 18 115/61 98 04/15/17 23:00 71 04/15/17 20:00 97.5 74 18 118/62 99 04/15/17 15:47 95.2 68 20 110/64 99 04/15/17 12:29 96.4 66 20 107/55 99 (Ana Hodgson) Physical Exam General Appearance: Well Developed, No Acute Distress, Comfortable, Obese (Ana Hodgson) Neck Neck Exam: Neck Supple (Ana Hodgson) Pulmonary Resp Exam: Clear Bilaterally, Breath Sounds Equal (Ana Hodgson) Cardiology CV Exam: Regular, Normal Sinus Rhythm (Ana Hodgson) Chest/Breast Chest/Breast Remarks permcath left chest (Ana Hodgson) Gastrointestinal/Abdomen GI Exam: Soft, Non-Tender, Positive Bowel Movement (Ana Hodgson) Musculoskeletal MS Exam: Joints Intact, Good Strength (Ana Hodgson) Integumentary Skin Exam: Warm, Intact (Ana Hodgson) Extremeties Extremities Exam: Pedal Pulses Palpable, Moderate Edema Extremeties Remarks wound left lateral lower leg, dressing in place right arm AVF, edematous, + thrill/bruit, some scabbing (Ana Hodgson ) Neurologic Neuro Exam: Alert, Awake, Oriented, Speech Clear, Moving All Extremities ( Ana Hodgson) Psychiatric Psych Exam: Appropriate Responses (Ana Hodgson) Assessment/Plan Discussed Condition With: Patient Assessment Summary: Anemia of CKD, Hypertension, End Stage Renal Disease Problem List: (1) ESRD (end stage renal disease) on dialysis Plan: Continue HD MWF, seen during dialysis today on a 2K, 350 BFR, goal 3L no acute renal concerns avoid IVF, gadolinium no dietary protein restriction can resume outpatient HD arrangements if discharged vascular following, s/p fistulogram, no intervention, to follow up outpatient for new AVF creation (2) DM (diabetes mellitus) type II controlled with renal manifestation Plan: blood glucose in 300s today per nursing, his levemir dosage was increased , glucose goal 140-180 mg/dL Patient had issues with glucometer at home. (3) Urinary tract infection Plan: oliguric at baseline, + pseudomonas on culture Zosyn continues ID following (4) Anemia Plan: continue epogen with dialysis (Ana Hodgson) Plan patient was seen and examined. Agree with above assessment and plan. He can be discharged from renal standpoint. (Roberth He MD) Problem Qualifiers (1) Urinary tract infection: Qualified Code: N39.0 - Urinary tract infection without hematuria, site unspecified Ana Hodgson Apr 16, 2017 09:45 Roberth He MD Apr 16, 2017 16:52
--- NOTE | 2017-04-16 12:19 | HHI.PR ---
Subjective Remarks Follow-up for UTI Patient had no complaints. Denied any abdominal pain, fevers or urinary symptoms. He stated he is doing well. Patient's nurse and are at the bedside during the interview. Objective Vitals Vital Signs Date Time Temp Pulse Resp B/P Pulse Ox O2 Delivery O2 Flow Rate FiO2 04/16/17 08:34 96.3 70 20 125/57 99 04/16/17 04:00 97.5 79 20 108/73 97 04/16/17 01:00 98.0 82 18 115/61 98 04/15/17 23:00 71 04/15/17 20:00 97.5 74 18 118/62 99 04/15/17 15:47 95.2 68 20 110/64 99 04/15/17 12:29 96.4 66 20 107/55 99 I/O 04/15/17 04/15/17 04/15/17 04/16/17 04/16/17 04/16/17 07:00 15:00 23:00 07:00 15:00 23:00 Intake Total 720 ml 50 ml Output Total 1000 ml 3000 ml Balance 720 ml -950 ml -3000 ml Intake Oral 720 ml IV Total 50 ml Output Urine Total 1000 ml Hemodialysis 3000 ml # Voids 1 2 # Bowel Movements 1 Objective Remarks GENERAL: in NAD SKIN: right arm with swelling and wound dry, intact HEAD: Normocephalic. EYES: No scleral icterus. No injection or drainage. NECK: Supple, trachea midline. No JVD or lymphadenopathy. CARDIOVASCULAR: Regular rate and rhythm without murmurs, gallops, or rubs. RESPIRATORY: Breath sounds equal bilaterally. No accessory muscle use. GASTROINTESTINAL: Abdomen soft, non-tender, nondistended. MUSCULOSKELETAL: No cyanosis, or edema. BACK: Nontender without obvious deformity. No CVA tenderness. Medications and IVs Current Medications Sodium Chloride (NS Flush) 2 ml UNSCH PRN IVF FLUSH AFTER USING IV ACCESS Last administered on 04/10/17 13:31; Start 04/10/17 at 13:30 Insulin Human Regular 10 units 10 units ONCE ONCE IV PUSH Last administered on 04/10/17 13:33; Start 04/10/17 at 13:30; Stop 04/10/17 at 13:31; Status DC Ceftriaxone Sodium/Sodium Chloride (Rocephin Inj/NS Inj) 100 ml @ 200 mls/hr ONCE ONCE IV Last administered on 04/10/17 14:53; Start 04/10/17 at 15:00; Stop 04/10/17 at 15:29; Status DC Insulin Human Regular 10 units 10 units ONCE ONCE IV PUSH Last administered on 04/10/17 15:08; Start 04/10/17 at 15:00; Stop 04/10/17 at 15:01; Status DC Sodium Chloride 1,000 ml @ 250 mls/hr Q4H IV ; Start 04/10/17 at 17:00; Stop 04/10/17 at 17:12; Status DC Dextrose/Sodium Chloride 1,000 ml @ 200 mls/hr Q5H IV ; Start 04/10/17 at 17:00 ; Stop 04/10/17 at 17:14; Status DC Insulin Human Regular/Sodium Chloride (NovoLIN R (IV INFUSION)/NS Inj) 100 ml @ 0 mls/hr TITRATE IV Last administered on 04/10/17 17:52; Start 04/10/17 at 17:00 ; Stop 04/10/17 at 21:02; Status DC Sodium Bicarbonate (Sodium Bicarbonate 8.4% Inj) 100 meq UNSCH PRN IV SEE LABEL COMMENTS; Start 04/10/17 at 16:15; Stop 04/10/17 at 21:02; Status DC Sodium Bicarbonate 50 meq 50 meq UNSCH PRN IV SEE LABEL COMMENTS; Start at 16:15; Stop 04/10/17 at 21:02; Status DC Sodium Phosphate 15 mmol/Sodium Chloride 105 ml @ 25 mls/hr UNSCH PRN IV SEE LABEL COMMENTS; Start 04/10/17 at 16:15; Stop 04/10/17 at 21:02; Status DC Ceftriaxone Sodium 1000 mg/ Sodium Chloride 100 ml @ 200 mls/hr Q24H IV Last administered on 04/11/17 16:35; Start 04/11/17 at 15:00; Stop 04/12/17 at 09:07; Status DC Sodium Chloride (NS 1000 ml Inj) 1,000 ml @ 75 mls/hr [id number] IV Last administered on 04/10/17 17:55; Start 04/10/17 at 17:15; Stop 04/10/17 at 21:33; Status DC Vitamin B Complex/ Vit C/Folic Acid (Nephrocaps) 1 cap DAILY PO Last administered on 04/15/17 08:49; Start 04/11/17 at 09:00 Calcium Acetate (Phoslo) 667 mg TID PO Last administered on 04/11/17 09:55; Start 04/10/17 at 18:00; Stop 04/11/17 at 14:06; Status DC Pantoprazole Sodium (Protonix) 40 mg DAILY PO Last administered on 04/15/17 08 :49; Start 04/11/17 at 09:00 Dextrose (D50w (Vial) Inj) 50 ml UNSCH PRN IV HYPOGLYCEMIA-SEE COMMENTS; Start 04/10/17 at 21:15 Glucagon (Glucagon Inj) 1 mg UNSCH PRN OTHER HYPOGLYCEMIA-SEE COMMENTS; Start 04/10/17 at 21:15 Insulin Aspart (NovoLOG SUPPLEMENTAL SCALE) 1 ACHS SLIDING SCALE SQ Last administered on 04/16/17 06:29; Start 04/11/17 at 07:00 Insulin Detemir (Levemir Inj) 8 units HS SQ Last administered on 04/11/17 21:17 ; Start 04/11/17 at 21:00; Stop 04/12/17 at 09:08; Status DC Insulin Aspart 10 units 10 units ACHS SQ Last administered on 04/16/17 06:28; Start 04/11/17 at 11:00 Sodium Chloride (NS 1000 ml Inj) 1,000 ml @ 0 mls/hr Q0M PRN IV For Prime & Rinse Back Last administered on 04/11/17 18:57; Start 04/11/17 at 12:29 Heparin Sodium (Porcine) 8000 units 8,000 units UNSCH PRN IVF WITH DIALYSIS; Start 04/11/17 at 12:30 Sodium Chloride 1,000 ml @ 200 mls/hr Q5H PRN IV WITH DIALYSIS Last administered on 04/16/17 08:54; Start 04/11/17 at 12:29 Sodium Chloride (NS 1000 ml Inj) 1,000 ml @ 0 mls/hr Q0M PRN IV WITH DIALYSIS; Start 04/11/17 at 12:29 Mannitol (Mannitol Inj) 12.5 gm UNSCH PRN IV WITH DIALYSIS; Start 04/11/17 at 12 :30 Albumin Human (Albumin 25% Inj) 25 gm UNSCH PRN IV WITH DIALYSIS; Start at 12:30 Sodium Chloride (NS Flush) 5 ml UNSCH PRN IV FLUSH WITH DIALYSIS; Start at 12:30 Heparin Sodium (Porcine) (Heparin Inj) UNSCH PRN .XX WITH DIALYSIS Last administered on 04/16/17 08:54; Start 04/11/17 at 12:30 Gentamicin Sulfate (Gentamicin (Dialysis) Inj) 20 mg UNSCH PRN IV WITH DIALYSIS Last administered on 04/14/17 16:51; Start 04/11/17 at 12:30 Ondansetron HCl (Zofran Inj) 4 mg UNSCH PRN IV WITH DIALYSIS; Start 04/11/17 at 12:30 Acetaminophen (Tylenol) 650 mg UNSCH PRN PO for headach, pain, temp > 101F; Start 04/11/17 at 12:30 Diphenhydramine HCl (Benadryl) 25 mg UNSCH PRN PO for hives/itching/anaphylaxis ; Start 04/11/17 at 12:30 Nitroglycerin (Nitrostat Sl) 0.4 mg UNSCH PRN SL CHEST PAIN; Start 04/11/17 at 12:30 Clonidine (Catapres) 0.1 mg UNSCH PRN PO for BP > 180/100 X 2 readings; Start 04/11/17 at 12:30 Epoetin Gregory (Epogen Inj) 6,000 units UNSCH PRN IV WITH DIALYSIS Last administered on 04/16/17 08:54; Start 04/11/17 at 12:30 Gelatin (Gelfoam 12 Mm/7 Mm Top) 1 foam UNSCH PRN TOP SEE LABEL COMMENTS; Start 04/11/17 at 12:30 Calcium Acetate 2001 mg 2,001 mg TID PO Last administered on 04/15/17 17:31; Start 04/11/17 at 18:00 Piperacillin Sod/ Tazobactam Sod (Zosyn 2.25 Gm Premix) 50 ml @ 100 mls/hr Q12H IV Last administered on 04/15/17 22:00; Start 04/12/17 at 11:00 Insulin Detemir (Levemir Inj) 8 units Q12HR SQ Last administered on 04/13/17 21 :00; Start 04/12/17 at 09:15; Stop 04/15/17 at 10:20; Status DC Heparin Sodium (Porcine) (Heparin Inj) 10,000 units STK-MED ONCE .ROUTE Last administered on 04/14/17 10:41; Start 04/14/17 at 10:41; Stop 04/14/17 at 10:42 ; Status DC Midazolam HCl (Versed Inj) 5 mg STK-MED ONCE .ROUTE Last administered on 10:41; Start 04/14/17 at 10:41; Stop 04/14/17 at 10:42; Status DC Fentanyl Citrate (fentaNYL INJ) 100 mcg STK-MED ONCE .ROUTE Last administered on 04/14/17 10:41; Start 04/14/17 at 10:41; Stop 04/14/17 at 10:42; Status DC Heparin Sodium (Porcine) (*HEPARIN INJ Periprocedural ONLY) 10,000 units STK- MED ONCE OTHER Last administered on 04/14/17 10:53; Start 04/14/17 at 10:53; Stop 04/14/17 at 10:55; Status DC Iohexol (Omnipaque 300 Inj) 50 ml STK-MED ONCE OTHER Last administered on 10:54; Start 04/14/17 at 10:54; Stop 04/14/17 at 10:55; Status DC Insulin Detemir (Levemir Inj) 12 units Q12HR SQ Last administered on 04/16/17 07:45; Start 04/15/17 at 21:00 A/P Assessment and Plan 72-year-old male with type 2 diabetes insulin-dependent and end-stage renal disease status post recent right upper extremity brachiobasilic AV fistula transposition who presented with elevated blood sugar secondary to noncompliance HHN, mild versus uncontrolled hyperglycemia due to noncompliance -Improved. -Serum osmolality increased. Blood sugars in the 700s. Status post insulin drip. -See treatment below Type 2 diabetes insulin-dependent -Noncompliance. -Home dosage Lantus 8 units at bedtime and 20 units of NovoLog before meals. -Blood sugars better controlled. Continue with Levemir to 12 units twice a day and continue with NovoLog 10 units before meals and insulin sliding scale. -Adjust accordingly. Urinary tract infection Pseudomonas -Rocephin d/c on 04/12 and now on Zosyn. -Infectious disease consulted due to multi-resistance and only sensitive to IV medication. -Repeat urine cultures from 04/14 positive for Pseudomonas [id number]. Dealt with Dr. Carranza infectious disease and he stated to continue Zosyn for a couple more days then patient can be discharge. s/p right brachiobasilic transposition with arm swelling -s/p fistulogram on 04/14 showing occluded right SC stent but patent right basilic vein. -per vascular treat with arm compression to allow for more collateralization and possible use as low-flow fistula. -f/u with vascular in 1-2 weeks after discharge to vein map and explore options for another fistula in other extremity. End-stage renal disease -Patient gets dialysis on Friday, Friday, Friday. -Neurologists is following. GERD -Continue with home medication. DVT prophylaxis -scd. will restart eliquis. Discharge Planning Due to medical complexity patient requires continual hospitalization. Estefani Tompkins MD Apr 16, 2017 12:19
[2017-04-16] MEDS: PIPERACIL-TAZO 2.25 GM PREMIX 50 ML IV SCH ×2 (13:28→23:07)
[2017-04-16] MEDS: PANTOPRAZOLE SOD 40 MG DELAYED RELEASE TAB PO SCH (13:34)
[2017-04-16 15:15] LABS: BICARBONATE 29.4 MEQ/L (21.0-32.0); POTASSIUM 3.8 MEQ/L (3.5-5.1)
[2017-04-16] MEDS: APIXABAN 2.5 MG TABLET PO SCH (21:57)
[2017-04-17] VITALS (8 sets, daily range): BP systolic 89–114; BP diastolic 51–71; PULSE 52–85; RESP 18–20; TEMP 95.8–97.4; O2SAT 95–100
[2017-04-17] MEDS: PIPERACIL-TAZO 2.25 GM PREMIX 50 ML IV SCH ×3 (00:14→23:59)
[2017-04-17] MEDS: INSULIN ASPART 1,000 UNITS/10 ML VIAL SQ SCH ×4 (06:07→21:43)
[2017-04-17] MEDS: INSULIN ASPART SUPPLEMENTAL SCALE SQ SCH ×4 (06:09→21:44)
[2017-04-17] MEDS: CALCIUM ACETATE 667 MG CAP PO SCH ×3 (08:57→17:11)
[2017-04-17] MEDS: VITAMIN B CMPLX/VITC/FOLIC AC CAP PO SCH (08:58)
[2017-04-17] MEDS: PANTOPRAZOLE SOD 40 MG DELAYED RELEASE TAB PO SCH (08:58)
[2017-04-17] MEDS: APIXABAN 2.5 MG TABLET PO SCH (08:58)
[2017-04-17] MEDS: INSULIN DETEMIR 100 UNITS/ML VIAL SQ SCH ×2 (08:59→21:43)
--- NOTE | 2017-04-17 10:19 | HHI.NPPN ---
Subjective Renal Failure: Chronic, End Stage Renal Disease Interval History Sitting up in chair, awake/alert. Inquiring about discharge. (Ana Hodgson) Objective Data Data 04/16/17 04/17/17 19:00 07:00 Output Total 3000 ml Balance -3000 ml Hemodialysis 3000 ml # Voids 1 3 Vital Signs Date Time Temp Pulse Resp B/P Pulse Ox O2 Delivery O2 Flow Rate FiO2 04/17/17 09:26 69 04/17/17 08:00 96.0 68 18 109/62 99 04/17/17 04:00 96.0 69 20 89/51 96 04/17/17 01:06 77 04/17/17 00:00 97.4 85 18 113/69 95 04/16/17 20:00 97.5 78 20 103/57 95 04/16/17 16:21 96.3 68 20 103/56 99 04/16/17 15:03 76 04/16/17 12:32 96.7 82 20 100/66 92 (Ana Hodgson) -: 04/16/17 1334 Physical Exam General Appearance: Well Developed, No Acute Distress, Comfortable, Obese (Ana Hodgson) Neck Neck Exam: Neck Supple (Ana Hodgson) Pulmonary Resp Exam: Clear Bilaterally, Breath Sounds Equal (Ana Hodgson) Cardiology CV Exam: Regular, Normal Sinus Rhythm (Ana Hodgson) Chest/Breast Chest/Breast Remarks permcath left chest (Ana Hodgson) Gastrointestinal/Abdomen GI Exam: Soft, Non-Tender, Positive Bowel Movement (Ana Hodgson) Musculoskeletal MS Exam: Joints Intact, Good Strength (Ana Hodgson) Integumentary Skin Exam: Warm, Intact (Ana Hodgson) Extremeties Extremities Exam: Pedal Pulses Palpable, Moderate Edema Extremeties Remarks wound left lateral lower leg, dressing in place right arm AVF, edematous, + thrill/bruit, some scabbing (Ana Hodgson ) Neurologic Neuro Exam: Alert, Awake, Oriented, Speech Clear, Moving All Extremities ( Ana Hodgson) Psychiatric Psych Exam: Appropriate Responses (Ana Hodgson) Assessment/Plan Discussed Condition With: Patient Assessment Summary: Anemia of CKD, Hypertension, End Stage Renal Disease Problem List: (1) ESRD (end stage renal disease) on dialysis Plan: Continue HD MWF, 3L UF yesterdays no acute renal concerns avoid IVF, gadolinium no dietary protein restriction can resume outpatient HD arrangements if discharged, he is cleared for discharge from our perspective vascular has followed, s/p fistulogram, no intervention, to follow up outpatient for new AVF creation D/W vascular, the pt has occlusion of a stent, was placed on Eliquis BID, but it is not indicated in this situation, will discontinue today (2) DM (diabetes mellitus) type II controlled with renal manifestation Plan: blood glucose elevated, on levemir and short acting prandial insulin. glucose goal 140-180 mg/dL (3) Urinary tract infection Plan: oliguric at baseline, + pseudomonas on culture although he has been asymptomatic this admission Zosyn continues until discharge per ID (4) Anemia Plan: continue epogen with dialysis Plan stable for discharge today (Ana Hodgson) Problem List: (1) ESRD (end stage renal disease) on dialysis Plan: Continue HD MWF, 3L UF yesterdays no acute renal concerns avoid IVF, gadolinium no dietary protein restriction can resume outpatient HD arrangements if discharged, he is cleared for discharge from our perspective vascular has followed, s/p fistulogram, no intervention, to follow up outpatient for new AVF creation D/W vascular, the pt has occlusion of a stent, was placed on Eliquis BID, but it is not indicated in this situation, will discontinue today (2) DM (diabetes mellitus) type II controlled with renal manifestation Plan: blood glucose elevated, on levemir and short acting prandial insulin. glucose goal 140-180 mg/dL (3) Urinary tract infection Plan: oliguric at baseline, + pseudomonas on culture although he has been asymptomatic this admission Zosyn continues until discharge per ID (4) Anemia Plan: continue epogen with dialysis Plan patient was seen and examined. He can be discharged from renal standpoint. ( Roberth He MD) Problem Qualifiers (1) Urinary tract infection: Qualified Code: N39.0 - Urinary tract infection without hematuria, site unspecified Ana Hodgson Apr 17, 2017 10:19 Roberth He MD Apr 18, 2017 14:02
--- NOTE | 2017-04-17 15:58 | HHI.PR ---
Subjective Remarks Pt feeling well. just taking a nap. denies any CP/SOB/N/V Objective Vitals Vital Signs Date Time Temp Pulse Resp B/P Pulse Ox O2 Delivery O2 Flow Rate FiO2 04/17/17 12:00 95.8 69 18 114/70 95 04/17/17 09:26 69 04/17/17 08:00 96.0 68 18 109/62 99 04/17/17 04:00 96.0 69 20 89/51 96 04/17/17 01:06 77 04/17/17 00:00 97.4 85 18 113/69 95 04/16/17 20:00 97.5 78 20 103/57 95 04/16/17 16:21 96.3 68 20 103/56 99 I/O 04/16/17 04/16/17 04/16/17 04/17/17 04/17/17 04/17/17 07:00 15:00 23:00 07:00 15:00 23:00 Intake Total 50 ml Output Total 1000 ml 3000 ml Balance -950 ml -3000 ml IV Total 50 ml Output Urine Total 1000 ml Hemodialysis 3000 ml # Voids 1 3 Result Diagram: 04/16/17 1334 Objective Remarks GENERAL: in NAD SKIN: right arm with swelling and wound dry, intact HEAD: Normocephalic. EYES: EOMI. NECK: Supple, trachea midline. CARDIOVASCULAR: Regular rate and rhythm without murmurs RESPIRATORY: Breath sounds equal bilaterally. No accessory muscle use. GASTROINTESTINAL: Abdomen soft, non-tender, nondistended. MUSCULOSKELETAL: moves extremities. A/P Assessment and Plan 72-year-old male with type 2 diabetes insulin-dependent and end-stage renal disease status post recent right upper extremity brachiobasilic AV fistula transposition who presented with elevated blood sugar secondary to noncompliance HHN, mild versus uncontrolled hyperglycemia due to noncompliance -Improved. -Serum osmolality increased. Blood sugars in the 700s. Status post insulin drip. -See treatment below Type 2 diabetes insulin-dependent -Noncompliance. -Home dosage Lantus 8 units at bedtime and 20 units of NovoLog before meals. -Blood sugars much better controlled. Continue with Levemir to 12 units twice a day and continue with NovoLog 10 units before meals and insulin sliding scale. -Adjust accordingly. Urinary tract infection Pseudomonas -Rocephin d/c on 04/12 and now on Zosyn. -Infectious disease consulted due to multi-resistance and only sensitive to IV medication. -Repeat urine cultures from 04/14 positive for Pseudomonas [id number]. Discussed w Dr. Carranza infectious disease today and pt can be discharge after completing course of Zosyn until 04/18/17 s/p right brachiobasilic transposition with arm swelling -s/p fistulogram on 04/14 showing occluded right SC stent but patent right basilic vein. -per vascular treat with arm compression to allow for more collateralization and possible use as low-flow fistula. -f/u with vascular in 1-2 weeks after discharge to vein map and explore options for another fistula in other extremity. End-stage renal disease -Patient gets dialysis on Friday, Friday, Friday. -Neurologists is following. GERD -Continue with home medication. DVT prophylaxis -scd. will restart eliquis. Discharge Planning anticipating d/c tomorrow after dialysis and dose of zosyn received Mirna Barron MD Apr 17, 2017 15:58
[2017-04-18] VITALS: BP_SYST 111; BP_SYST 124; BP_DIAS 60; BP_DIAS 64; PULSE 103; PULSE 71; RESP 20; TEMP 96.7; TEMP 98; O2SAT 96
[2017-04-18 02:14] VITALS: PULSE 75
[2017-04-18 04:00] VITALS: BP 101/71; PULSE 63; RESP 20; TEMP 96; O2SAT 99
[2017-04-18] MEDS: INSULIN ASPART 1,000 UNITS/10 ML VIAL SQ SCH ×4 (06:10→20:37)
[2017-04-18] MEDS: INSULIN ASPART SUPPLEMENTAL SCALE SQ SCH ×4 (06:10→20:37)
[2017-04-18] MEDS: CALCIUM ACETATE 667 MG CAP PO SCH ×3 (08:27→16:31)
[2017-04-18] MEDS: PANTOPRAZOLE SOD 40 MG DELAYED RELEASE TAB PO SCH (08:27)
[2017-04-18] MEDS: VITAMIN B CMPLX/VITC/FOLIC AC CAP PO SCH (08:27)
[2017-04-18] MEDS: INSULIN DETEMIR 100 UNITS/ML VIAL SQ SCH ×2 (08:28→20:37)
[2017-04-18 08:36] VITALS: BP 107/64; PULSE 64; RESP 20; TEMP 95.8; O2SAT 98
[2017-04-18 08:42] VITALS: PULSE 70
[2017-04-18] MEDS ORDERED: PIPERACIL-TAZO 2.25 GM PREMIX 50 ML IV SCH ×4 (09:00→21:00)
--- NOTE | 2017-04-18 09:19 | HHI.NPPN ---
Subjective Renal Failure: Chronic, End Stage Renal Disease Interval History Seen during dialysis. He is to be discharged later today. No acute concerns. ( Ana Hodgson) Objective Data Data 04/17/17 04/18/17 19:00 07:00 Intake Total 1008 ml 300 ml Balance 1008 ml 300 ml Intake Oral 960 ml 300 ml IV Total 48 ml # Voids 3 0 # Bowel Movements 2 0 Vital Signs Date Time Temp Pulse Resp B/P Pulse Ox O2 Delivery O2 Flow Rate FiO2 04/18/17 08:42 70 04/18/17 08:36 95.8 64 20 107/64 98 04/18/17 04:00 96.0 63 20 101/71 99 04/18/17 02:14 75 04/18/17 00:00 96.7 71 20 111/60 96 04/17/17 20:00 96.7 70 20 108/59 96 04/17/17 16:00 95.9 67 18 109/71 100 04/17/17 12:00 95.8 69 18 114/70 95 04/17/17 09:26 69 (Ana Hodgson) -: 04/16/17 1334 Physical Exam General Appearance: Well Developed, No Acute Distress, Comfortable, Obese (Ana Hodgson) Neck Neck Exam: Neck Supple (Ana Hodgson) Pulmonary Resp Exam: Clear Bilaterally, Breath Sounds Equal (Ana Hodgson) Cardiology CV Exam: Regular, Normal Sinus Rhythm (Ana Hodgson) Chest/Breast Chest/Breast Remarks permcath left chest (Ana Hodgson) Gastrointestinal/Abdomen GI Exam: Soft, Non-Tender, Positive Bowel Movement (Ana Hodgson) Musculoskeletal MS Exam: Joints Intact, Good Strength (Ana Hodgson) Integumentary Skin Exam: Warm, Intact (Ana Hodgson) Extremeties Extremities Exam: Pedal Pulses Palpable, Moderate Edema Extremeties Remarks wound left lateral lower leg, dressing in place right arm AVF, edematous, + thrill/bruit, some scabbing (Ana Hodgson ) Neurologic Neuro Exam: Alert, Awake, Oriented, Speech Clear, Moving All Extremities ( Ana Hodgson) Psychiatric Psych Exam: Appropriate Responses (Ana Hodgson) Assessment/Plan Discussed Condition With: Patient Assessment Summary: Anemia of CKD, Hypertension, End Stage Renal Disease Problem List: (1) ESRD (end stage renal disease) on dialysis Plan: seen during dialysis today on a 2K, 350 BFR, goal 3L Typical MWF HD schedule, can resume outpatient arrangements beginning Friday no acute renal concerns, stable for discharge avoid IVF, gadolinium no dietary protein restriction vascular has followed, s/p fistulogram, no intervention, to follow up outpatient for new AVF creation D/W vascular, the pt has occlusion of a stent, but anticoagulation is not required at this time (2) DM (diabetes mellitus) type II controlled with renal manifestation Plan: blood glucose elevated, on levemir and short acting prandial insulin. glucose goal 140-180 mg/dL (3) Urinary tract infection Plan: oliguric at baseline, + pseudomonas on culture although he has been asymptomatic this admission last dose of Zosyn ordered for today (4) Anemia Plan: continue epogen with dialysis Plan stable for discharge today (Ana Hodgson) Plan patient was seen and examined. Agree with above assessment and plan. He is to be discharged today. (Roberth He MD) Problem Qualifiers (1) Urinary tract infection: Qualified Code: N39.0 - Urinary tract infection without hematuria, site unspecified Ana Hodgson Apr 18, 2017 09:19 Roberth He MD Apr 18, 2017 14:13
[2017-04-18] MEDS ORDERED: LEVEMIR SQ (09:36)
[2017-04-18] MEDS ORDERED: NOVOLOGSS SQ (09:36)
[2017-04-18] MEDS ORDERED: HUMALOG SQ ×2 (09:36→09:50)
[2017-04-18] MEDS ORDERED: LANCETS1 MI1 (09:38)
[2017-04-18] MEDS ORDERED: INSU1MIS15 (09:38)
[2017-04-18] MEDS ORDERED: GLUCTES12 (09:38)
[2017-04-18] MEDS ORDERED: GLUCKIT15 (09:38)
--- NOTE | 2017-04-18 09:39 | HHI.DS ---
Discharge Summary Admission Date Apr 10, 2017 at 16:13 Discharge Date: Apr 18, 2017 Admitting Diagnosis Hyperglycemia; ESRD; UTI (1) AVF (arteriovenous fistula) ICD Code: I77.0 Diagnosis: Principal (2) ESRD (end stage renal disease) on dialysis ICD Code: N18.6 Diagnosis: Principal (3) DM (diabetes mellitus) type II controlled with renal manifestation ICD Code: E11.29 Diagnosis: Principal (4) UTI (urinary tract infection) ICD Code: N39.0 Diagnosis: Principal Procedures s/p right brachiobasilic transposition with arm swelling -s/p fistulogram on 04/14 showing occluded right SC stent but patent right basilic vein. Brief History - From Admission 76-year-old male history of end-stage renal disease status post right upper extremity bronchial basilic AV fistula with recent transposition and type 2 diabetes insulin-dependent who presented with elevated blood sugars. Patient stated that his grandchild got a hold of his glucometer and he couldn't find it afterwards. Patient has not been injecting himself with insulin for the past 2 days. He stated that he is usually on Lantus 3 units daily, NovoLog 3 units before meals and blood sugars usually in the 150s. In the ED his UA suggest UTI but he denied any urinary symptoms. Patient gets dialysis on Friday, Friday, and Friday with Dr. Smith. CBC/BMP: 04/16/17 1334 Significant Findings Laboratory Tests Test 04/16/17 13:34 Sodium Level 135 MEQ/L (136-145) Chloride Level 96 MEQ/L (98-107) Blood Urea Nitrogen 32 MG/DL (7-18) Creatinine 7.09 MG/DL (0.60-1.30) Estimat Glomerular Filtration 9 ML/MIN (>89) Rate Random Glucose 243 MG/DL (74-106) Albumin 2.3 GM/DL (3.4-5.0) PE at Discharge GENERAL: in NAD SKIN: right arm with swelling and wound dry, intact HEAD: Normocephalic. EYES: EOMI. NECK: Supple, trachea midline. CARDIOVASCULAR: Regular rate and rhythm without murmurs RESPIRATORY: Breath sounds equal bilaterally. No accessory muscle use. GASTROINTESTINAL: Abdomen soft, non-tender, nondistended. MUSCULOSKELETAL: moves extremities. Pt update on day of discharge Pt feels well. Denies any CP/SOB/N/V/pain. He states he will be getting dialysis this morning. Discussed w RN, no concerns at this time. Hospital Course 72-year-old male with type 2 diabetes insulin-dependent and end-stage renal disease status post recent right upper extremity brachiobasilic AV fistula transposition who presented with elevated blood sugar secondary to noncompliance HHN, mild versus uncontrolled hyperglycemia due to noncompliance -Serum osmolality increased. Blood sugars in the 700s. Status post insulin drip. -See treatment below Type 2 diabetes insulin-dependent -Noncompliance. -Home dosage Lantus 8 units at bedtime and 20 units of NovoLog before meals. -However, Blood sugars were much better controlled w the following regimen: Levemir to 12 units twice a day, NovoLog 10 units before meals (will switch to humalog as pt's insurance will cover this) and insulin sliding scale. -Scripts in chart Urinary tract infection Pseudomonas -Rocephin d/c on 04/12 and now on Zosyn. -Infectious disease consulted due to multi-resistance and only sensitive to IV medication. -Repeat urine cultures from 04/14 positive for Pseudomonas [phone]. Discussed w Dr. Carranza infectious disease today and pt can be discharge after completing course of Zosyn until 04/18/17. s/p right brachiobasilic transposition with arm swelling -s/p fistulogram on 04/14 showing occluded right SC stent but patent right basilic vein. -per vascular treat with arm compression to allow for more collateralization and possible use as low-flow fistula. -f/u with vascular in 1-2 weeks after discharge to vein map and explore options for another fistula in other extremity. End-stage renal disease -Patient gets dialysis on Friday, Friday, Friday. -Nephrology has cleared pt for discharge Pt Condition on Discharge: Stable Discharge Disposition: Discharge Home Discharge Time: > 30 minutes Discharge Instructions DIET: Follow Instructions for: Renal Failure Diet Activities you can perform: Regular-No Restrictions Follow up Referrals: PCP Follow-up - 1 Week Vascular Surgery - 1 Week New Medications: Blood Glucose Monitoring W/Device (Glucocom Blood Glucose Mo W/Device) 1 Kit Kit 1 KIT .ROUTE DIRECTED Blood Sugar Management #1 KIT Glucocom Test Strips (Glucocom Test Strips) 1 Deb Deb 1 EA .ROUTE DIRECTED Blood Sugar Management #1 BOX Insulin Lispro (Human) Inj (Humalog Inj) 1,000 Unit/10 Ml Vial 10 UNITS SQ ACHS Blood Sugar Management #1 Ref 0 VIAL Insulin Lispro (Human) Inj (Humalog Inj) 1,000 Unit/10 Ml Vial 1-9 UNITS SQ ACHS sugars< 70,(0)units; sugars 150-199,(1)unit; sugars 200-249,(3 )units; sugars 250-299,(5)units; sugars 300-349,(7)units; sugars more than 349,( 9)units. Blood Sugar Management #1 Ref 0 VIAL Insulin Syringe/U-100/31G X 5/16" 1 ml (Insulin Syringe/U-100/31G X 5/16" 1 ml) 1 Mis Mis 1 EA .ROUTE DIRECTED Blood Sugar Management #1 Ref 0 BOX Lancets (Lancets) 1 Mis Mis 1 EA .ROUTE DIRECTED Blood Sugar Management #1 Ref 0 BOX Insulin Detemir Inj (Levemir Inj) 1,000 unit/ 10 ML Vial 12 UNITS SQ Q12HR Days 30 INJECTION Continued Medications: Apixaban (Eliquis) 2.5 Mg Tab 2.5 MG PO BID Blood Clot Prevention Ref 0 TAB B-Complex W/ C & Folic Acid (Renal Vitamin) 1 Cap 1 CAP PO DAILY If on dialysis, take after treatment. Nutritional Supplement #30 Ref 0 CAP Calcium Acetate (Phosphate Binder) (Calcium Acetate (Phosphate Binder)) 667 Mg Tab 667 MG PO TID Hyperphosphatemia #90 Ref 0 TAB Pantoprazole (Pantoprazole) 40 Mg Tab 40 MG PO DAILY Reflux #30 Ref 0 TAB Discontinued Medications: Insulin Glargine Inj (Lantus Inj) 1,000 Unit/10 Ml Vial 8 UNITS SQ HS Blood Sugar Management Ref 0 VIAL Insulin Lispro Protamine-Lispro 75-25 Inj (Humalog Mix 75-25 Inj) 1,000 Unit/10 Ml Susp 1 UNITS SQ Blood Sugar Management Ref 0 VIAL Mirna Barron MD Apr 18, 2017 09:39 1 UNITS SQ Blood Sugar Management Ref 0 VIAL Mirna Barron MD Apr 18, 2017 09:39
[2017-04-18] MEDS: EPOETIN ALFA 10,000 UNITS/ML VIAL IV PRN (10:56)
[2017-04-18] MEDS: HEPARIN SODIUM - IV 10,000 UNITS/10 ML VIAL PRN (10:56)
[2017-04-18] MEDS: GENTAMICIN SULFATE (DIALYSIS USE ONLY) 20 MG/2 ML VIAL IV PRN (10:57)
[2017-04-18] MEDS: SODIUM CHLOR 0.9% 1000 ML INJ 1,000 ML IV PRN (10:57)
[2017-04-18 15:49] VITALS: BP 96/51; PULSE 77; RESP 20; TEMP 96.5; O2SAT 98
== END 2017-04-18 21:58 | disposition home or self-care (01) | DRG 637 ==
LOC: NEPE 12:46 → NEDA 16:13 → NEDH 22:18 → N05A 23:35
PROVIDERS: ADMIT Family Medicine; ATTEND Family Medicine
PROC: 5A1D60Z (ICD-10-PCS; principal; 2017-04-11)
PROC: B51W1ZZ Fluoroscopy of Dialysis Shunt/Fistula using Low Osmolar Contrast (ICD-10-PCS; 2017-04-14 10:38)
DX: E11.65 Type 2 diabetes mellitus with hyperglycemia (principal); N18.6 End stage renal disease; I82.B11 Acute embolism and thrombosis of right subclavian vein; I12.0 Hypertensive chronic kidney disease with stage 5 chronic kidney disease or end stage renal disease; T82.598A Other mechanical complication of other cardiac and vascular devices and implants, initial encounter; N39.0 Urinary tract infection, site not specified; E11.22 Type 2 diabetes mellitus with diabetic chronic kidney disease; K21.9 Gastro-esophageal reflux disease without esophagitis; B96.5 Pseudomonas (aeruginosa) (mallei) (pseudomallei) as the cause of diseases classified elsewhere; D63.1 Anemia in chronic kidney disease; N40.0 Benign prostatic hyperplasia without lower urinary tract symptoms; E66.01 Morbid (severe) obesity due to excess calories; Z79.4 Long term (current) use of insulin; Z99.2 Dependence on renal dialysis; Z86.718 Personal history of other venous thrombosis and embolism; Z91.14 Patient's other noncompliance with medication regimen
CPT/HCPCS: 36600; 75820; 76937; 80048; 80053; 80069; 81001; 82010; 82805; 82948; 83735; 83930; 84100; 85025; 85027; 87077; 87086; 87186; 90935; 96365; 96374; 96375; 96376; J0696; J1580; J1644; J1815; J1817; J2250; J2543; J3010; J7030; Q4081; Q9967

== ENCOUNTER → 2017-05-08 | Day surgery (SDC) | payer OTHER ==
[~2017-05-08] MED LIST changes: -ASPI1TAB69 PO; -BENA25TA3 PO; +CHLORHEXIDINE GLUCONATE 2 % 1 PACK (2 CLOTHS) TOPICAL PRN; +GLUCKIT15; +GLUCTES12; +HUMALOG SQ; +Hemodialysis Vas Acc Cath PRN Heparin 1000 unit/ml Flush IV FLUSH; +Hemodialysis Vas Access Cath PRN NS Lock Flush IV FLUSH; -INSU100V SQ; +INSU1MIS15; +INSULIN HUMAN REGULAR 1,000 UNITS/10 ML VIAL SQ PRN; +LACTATED RINGER'S 1000 ML IV PRN; +LANCETS1 MI1; -LANTUS2P SQ; +LEVEMIR SQ; +METOPROLOL TARTRATE 25 MG TAB PO PRN; +POVIDONE IODINE 5% (ANTISEPSIS KIT) 4 APPLICATIONS EACH NARE PRN; +SODIUM CHLORID 0.9% 500 ML IV PRN
--- NOTE | 2017-05-08 08:51 | RADRPT ---
EXAM DATE/TIME: 05/08/2017 08:02 [place] COMPARISON: CHEST SINGLE AP, February 25, 2017, 7:16. INDICATIONS : Evaluate for pneumonia, pneumothorax or communicable disease MEDICAL HISTORY : Renal failure, chronic. SURGICAL HISTORY : None. ENCOUNTER: Initial ACUITY: 1 day PAIN SCORE: 0/10 LOCATION: chest FINDINGS: Portable AP view of the chest demonstrates a normal-sized cardiac silhouette. A left sided dialysis c entral line distal tips are in the SVC, stable from the prior study. Stent overlies the right medial clavicle. No effusion, consolidation, or pneumothorax is visualized. The bones and soft tissues demon strate no acute finding. CONCLUSION: No acute cardiopulmonary abnormality is identified. Jordan Sahni MD on May 08, 2017 at 8:49 Board Certified Radiologist. This report was verified electronically.
[2017-05-08 09:11] LABS: AUTOMATED NEUTROPHIL # 3.2 TH/MM3 (1.8-7.7); BASOPHIL # 0.1 TH/MM3 (0-0.2); BASOPHIL % 0.6 % (0.0-2.0); EOSINOPHIL # 0.2 TH/MM3 (0-0.4); EOSINOPHIL % 1.7 % (0.0-4.0); HEMATOCRIT 34.3 % (39.0-51.0); HEMO FLAGS DIFF FINAL; LYMPH % 47.8 % (9.0-44.0); LYMPHOCYTE # 4.4 TH/MM3 (1.0-4.8); MEAN CELL VOLUME 90.8 FL (80.0-100.0); MEAN CORPUSCULAR HEMOGLOBIN 29.4 PG (27.0-34.0); MEAN CORPUSCULAR HGB CONC 32.3 % (32.0-36.0); MONO % 14.4 % (0.0-8.0); NEUT % 35.5 % (16.0-70.0); PLATELET COUNT 255 TH/MM3 (150-450); RED BLOOD COUNT 3.77 MIL/MM3 (4.50-5.90); RED CELL DISTRIBUTION WIDTH 16.1 % (11.6-17.2); WHITE BLOOD COUNT 9.1 TH/MM3 (4.0-11.0)
[2017-05-08 10:07] LABS: BICARBONATE 22.1 MEQ/L (21.0-32.0); POTASSIUM 3.9 MEQ/L (3.5-5.1)
== END | disposition home or self-care (01) ==
LOC: HSDC 07:44
PROVIDERS: ATTEND Surgery
DX: N18.6 End stage renal disease (principal); Z53.09 Procedure and treatment not carried out because of other contraindication; Z99.2 Dependence on renal dialysis; Z79.01 Long term (current) use of anticoagulants; Z79.4 Long term (current) use of insulin; Z79.899 Other long term (current) drug therapy
CPT/HCPCS: 36415; 71010; 80048; 82948; 85025; G0463; J1644; 99211

== ENCOUNTER 2017-07-15 07:48 | Day surgery (SDC) | payer MEDICARE ==
[~2017-07-15] VITALS: Ht 175.3 cm; Wt 125.7 kg
[~2017-07-15 07:48] MED LIST changes: -CHLORHEXIDINE GLUCONATE 2 % 1 PACK (2 CLOTHS) TOPICAL PRN; -Hemodialysis Vas Acc Cath PRN Heparin 1000 unit/ml Flush IV FLUSH; -Hemodialysis Vas Access Cath PRN NS Lock Flush IV FLUSH; -INSULIN HUMAN REGULAR 1,000 UNITS/10 ML VIAL SQ PRN; -LACTATED RINGER'S 1000 ML IV PRN; -METOPROLOL TARTRATE 25 MG TAB PO PRN; -POVIDONE IODINE 5% (ANTISEPSIS KIT) 4 APPLICATIONS EACH NARE PRN; -SODIUM CHLORID 0.9% 500 ML IV PRN
[2017-07-15] MEDS ORDERED: IOHEXOL 350 MG/ML 50 ML BTL (for Cath Lab) OTHER ONE (07:49)
[2017-07-15 08:15] VITALS: BP 118/66; PULSE 106; RESP 18; TEMP 97.8; O2SAT 95
[2017-07-15] MEDS ORDERED: LANTUS2P SQ (08:22)
[2017-07-15 08:39] LABS: AUTOMATED NEUTROPHIL # 3.4 TH/MM3 (1.8-7.7); BASOPHIL % 0.7 % (0.0-2.0); EOSINOPHIL # 0.2 TH/MM3 (0-0.4); EOSINOPHIL % 2.4 % (0.0-4.0); HEMATOCRIT 36.7 % (39.0-51.0); HEMO FLAGS DIFF FINAL; LYMPH % 37.4 % (9.0-44.0); LYMPHOCYTE # 2.6 TH/MM3 (1.0-4.8); MEAN CELL VOLUME 89.8 FL (80.0-100.0); MEAN CORPUSCULAR HGB CONC 32.3 % (32.0-36.0); MONO % 11.7 % (0.0-8.0); NEUT % 47.8 % (16.0-70.0); PLATELET COUNT 243 TH/MM3 (150-450); RED BLOOD COUNT 4.09 MIL/MM3 (4.50-5.90); RED CELL DISTRIBUTION WIDTH 16.9 % (11.6-17.2)
[2017-07-15 08:55] LABS: BICARBONATE 25.7 MEQ/L (21.0-32.0); POTASSIUM 4.2 MEQ/L (3.5-5.1)
[2017-07-15] MEDS ORDERED: MIDAZOLAM HCL 2 MG/2 ML VIAL ONE (11:02)
[2017-07-15] MEDS ORDERED: HEPARIN-NS/PF INJ 1,000 ML ONE (11:02)
[2017-07-15] MEDS ORDERED: HEPARIN SODIUM - IV 10,000 UNITS/10 ML VIAL ONE (11:35)
--- NOTE | 2017-07-15 12:14 | CATHPROC ---
[employer] HIS Report Study Information Study Number Admission Scheduled Start Study Start [id number] Jul 15 2017 7:48AM 07/15/2017 Jul 15 2017 10:45AM [place] Service Cath Endovascular Study Admit Source Facility Department Other [facility] - Structural Metal Worker Physician and Clinical Staff Initial Ben Akhtar Logging Crew Supervisor Eddie Farfan RN Recorder Isaiah Richardson Hostwhit, Avery,RT(R) Procedures Performed Procedure Location (Site) Vessel Name HUMAN RESOURCES BENEFITS COORDINATOR Brach. Art. (right) Brachial Art. Wire insertion Brach. Art. (right) Brachial Art. Equipment Time Coremaker Machine Description Size Mfg Part Number Used/Scraped BALLOON, CONQUEST 5 X 40 [id number] 11:37 BARD 5 X 40 Used 75CM *[id number]-502-10.0- INTRODUCER SET, 10:54 [employer] FR 5 SC-NT-U-SST Used MICROPUNCTURE, STIFFENED *[id number] MARINE POLYMER 10:54 PATCH, SYVEK EXCEL (PACER) 400-16-05 Used TECHNOLOGIES [id number] 10:54 [employer] WIRE, BENTSON .035 260CM 260CM Used *[id number] 10:54 [employer] PACK, CCL CUSTOM * Used *[id number] 10:54 NAMIC TUBING, HIGH PRESSURE 20" 20" Used *[id number] 10:54 NYCOMED OMNIPAQUE, 300 MG, 100ML 100ML [id number] Used SUTURE, 2-0 VICRYL [SH] ([id number]) [id number] 11:34 TERUMO MEDICAL SHEATH, FR6 TERUMO (10CM) FR 6 Used *[id number] Labs Hgb (g/dl) Hct (%) RBC (MIL/MM3) WBC (l/cumm) Platelets (thousands) 11.60-17.00 35.00-51.00 4.00-5.90 4.00-11.00 150.00-450.00 11.8 36.7 4.1 7 243 Glucose (mg/dl) BUN (mg/dl) 74.00-106.00 7.00-18.00 135 52 Na (meq/l) K (meq/l) Cl (meq/l) CO2 (mmol/L) Ca (mg/dl) 136.00-145.00 3.50-5.10 98.00-107.00 21.00-32.00 8.50-10.10 135 4.2 99 25.7 8.8 Medication Medication Total Dose (Bolus/Oral) Medication Total Dosage/Unit 1% XYLOCAINE 20 mL FENTANYL 50 mcg HEPARIN 3000 units VERSED 1 mg Medications (Bolus/Oral) Medication Time Given Dosage/Unit Administered By Reason 07/15/2017 11:22:00 VERSED 1 mg Eddie Farfan AM 1 mg VERSED given in lab by Eddie Frafan RN in Left Wrist via Peripheral IV. 07/15/2017 11:22:12 FENTANYL 25 mcg Eddie Farfan AM 25 mcg FENTANYL given in lab by Eddie Farfan RN in Left Wrist via Peripheral IV. 07/15/2017 11:26:00 FENTANYL 25 mcg Eddie Farfan AM 25 mcg FENTANYL given in lab by Eddie Farfan RN in Left Wrist via Peripheral IV. 07/15/2017 11:27:35 1% XYLOCAINE 20 mL Ben Luong AM 20 mL 1% XYLOCAINE given in lab by Ben Luong in Right Antecubital via Subcutaneous. 07/15/2017 11:35:53 HEPARIN 3000 units Eddie Farfan AM 3000 units HEPARIN given in lab by Eddie Farfan RN in Left Wrist via Peripheral IV. Initial Case Assessment Cardiovascular HR Rhythm NIBP Chest Pain 61 SN 110/74 0 Edema Present Skin color Skin None Normal Warm Dry Neurological State Oriented to time-place- Alert person Respiration - General Respiration Rate SpO2 (%) (B/min) 12 99 Chronological Log Time Study Chronological Log 10:44:41 Patient arrived via Bed. 10:44:43 Patient Name, D.O.B, / Armband Verified By R.N. 10:44:44 Consent signed by the physician and the patient and verified by the Structural Metal Worker staff. 10:44:45 Pre-op and post- op instructions given; patient acknowledges understanding of instructions. 10:44:46 History and physical on the chart or being dictated. 10:45:12 Verbal Stimulation=2 Physical Stimulation=2 Airway=2 Respiration=2 TOTAL=8. (0=absent, 1=li mited, 2=present) 10:45:20 Presedation assessment performed by Structural Metal Worker RN. 10:45:22 Patient has been NPO for More than 6Hrs. 10:46:00 Skin Breakdown- 10:46:30 Naomi Prominences Protected Vitals capture started with the following parameters, Patient=Adult, Interval=5 min, Initial Pr wtkqay=734 mmHg, 10:55:35 Deflation Rate=5 mmHg 10:56:16 HR=84 bpm, DCGZ=947/61 mmhg, SpO2=98.0 %, Resp=10 B/min, Pain=0, Toth=2 11:01:11 HR=86 bpm, CMAR=704/67 mmhg, SpO2=97.0 %, Resp=10 B/min, Pain=0, Toth=2 11:06:12 HR=83 bpm, NIBP=95/63 mmhg, SpO2=97.0 %, Resp=10 B/min, Pain=0, Toth=2 11:11:11 HR=83 bpm, EYZL=653/63 mmhg, SpO2=98.0 %, Resp=14 B/min, Pain=0, Toth=2 Assessment: Initial Case, HR=61 BPM, Rhythm=SN, FJYM=571/74 mmhg, Chest Pain=0, Edema=None, Col or=Normal, Skin = Warm, Dry 11:14:54 Neurological: State=Alert, Ox3 Respiration: Resp=12 B/min, SpO2=99 % 11:16:12 HR=61 bpm, XLPV=430/73 mmhg, SpO2=99.0 %, Resp=20 B/min, Pain=0, Toth=2 11:17:50 MD arrived. 11:21:17 HR=83 bpm, NIBP=92/55 mmhg, SpO2=98.0 %, Resp=30 B/min, Pain=0, Toth=2 Time Out. Correct patient, correct procedure, correct physician, power injector loaded, or not loaded with contrast with 11::55 surgical team present. Time Out Concurred by MD and individual staff in procedure. 11:22:00 1 mg VERSED given in lab by Eddie Farfan, RN in Left Wrist via Peripheral IV. 11:22:12 25 mcg FENTANYL given in lab by Eddie Farfan, VIANEY in Left Wrist via Peripheral IV. 11:22:21 Case Start 11:26:00 25 mcg FENTANYL given in lab by Eddie Farfan RN in Left Wrist via Peripheral IV. 11:26:10 HR=73 bpm, DBJB=412/65 mmhg, PfI0=247.0 %, Resp=17 B/min, Pain=0, Toth=2 11:27:35 20 mL 1% XYLOCAINE given in lab by Ben Luong in Right Antecubital via Subcutaneous. 11:31:15 HR=60 bpm, WQNA=359/59 mmhg, SpO2=98.0 %, Resp=16 B/min, Pain=0, Toth=2 11:31:48 Access site was Brachial Artery. 11:35:00 A SHEATH, FR6 TERUMO (10CM) FR 6 was advanced into the Brach. Art. (right) using the Percut aneous technique. 11:35:53 3000 units HEPARIN given in lab by Eddie Farfan RN in Left Wrist via Peripheral IV. 11:36:14 HR=82 bpm, JKKQ=990/60 mmhg, SpO2=99.0 %, Resp=28 B/min, Pain=0, Toth=2 11:36:50 A WIRE, BENTSON .035 260CM 260CM was inserted via Brach. Art. (right). A BALLOON, CONQUEST 5 X 40 75CM 5 X 40 was inserted over WIRE, BENTSON .035 260CM 260CM via the Brach. 11:37:34 Art. (right). 11:39:52 In the ~SITE~ a balloons was inflated to 7 atms for 60 seconds. 11:41:19 HR=83 bpm, NIBP=99/64 mmhg, SpO2=98.0 %, Resp=20 B/min, Pain=0, Toth=2 11:42:09 Balloon Removed. 11:45:46 Wire removed 11:45:49 Catheter was removed 11:46:14 HR=68 bpm, VPHA=955/67 mmhg, SpO2=97.0 %, Resp=22 B/min, Pain=0, Toth=2 11:49:52 A closure device applied to the Brach. Art. (right) 11:51:15 HR=73 bpm, DKCA=854/70 mmhg, LlK8=549.0 %, Resp=17 B/min, Pain=0, Toth=2 11:55:40 Case End 11:56:18 HR=84 bpm, OEMN=681/69 mmhg, LgE7=894.0 %, Resp=23 B/min, Pain=0, Toth=2 12:01:17 HR=83 bpm, RXBH=900/72 mmhg, WgZ9=228.0 %, Resp=8 B/min, Pain=0, Toth=2 12:03:03 Vitals capture stopped. 12:04:00 Patient moved to stretcher 12:04:33 Bedside Report will be given. End Study - Contrast Media Used In Study Contrast Total Opened (mL) Total Used (mL) Total Wasted (mL) Omnipaque 150 50 100 End Study - Radiation Exposure Fluoro Time (minutes) 0.2 End Study - Patient Disposition Complications Transferred To Not selected Outpatient Bed
--- NOTE | 2017-07-15 12:15 | MA ---
cc: PETE ORDAZ DATE 07/15/2017 PREOPERATIVE DIAGNOSIS End-stage renal disease with increased velocities across the previously placed brachiobasilic fistula. POSTOPERATIVE DIAGNOSIS End-stage renal disease with increased velocities across the previously placed brachiobasilic fistula. PROCEDURES 1. Fistulogram. 2. Balloon angioplasty of right upper extremity arteriovenous anastomosis at the arterial site with a 5-mm x 40-mm Bard balloon. SURGEON Ag, IV FLUIDS 100 cc. ESTIMATED BLOOD LOSS Minimal. URINE OUTPUT Not calculated. SEDATION Moderate sedation. COMPLICATIONS None. DISPOSITION To PACU. PROCEDURE The patient's right upper extremity was prepped and draped in sterile fashion. I used duplex ultrasound based on the patient's arm diameter to get access to the right basilic vein. I did use 3 cc of 1% lidocaine in order to anesthetize the skin. I used a 21-gauge needle and advanced it towards the antecubital fossa into the basilic vein. I exchanged using the Seldinger technique for a 4-Ivorian micropuncture catheter, then upsized to a 6-Ivorian sheath. I then performed a fistulogram at this area of concern which showed that there was a moderate to high-grade stenosis of the arteriovenous anastomosis. I used a 5-mm x 40-mm Conquest balloon after heparinizing the patient with approximately 3000 units of heparin. After performing the balloon angioplasty there was improvement in the diameter of the vessel with no residual stenosis. Also, the thrill was more palpable in the fistula itself. After this was done, I removed the sheath and applied pressure to the right arm. The patient had a good signal in the radial and the palmar distribution as well at the end of the case. The patient tolerated the procedure well and was taken to the PACU in the end of the case. DO REJI Colon/LAITH /11:53 AM /12:03 PM
== END 2017-07-15 13:30 | disposition home or self-care (01) ==
LOC: HDOC 07:48 → HDIC 07:49 → HDOC 13:30
PROVIDERS: ATTEND Surgery
DX: N18.6 End stage renal disease (principal); E11.9 Type 2 diabetes mellitus without complications; N40.0 Benign prostatic hyperplasia without lower urinary tract symptoms
CPT/HCPCS: 37248; 75710; 80048; 85025; C1725; C1769; C1893; J1644; J2250; J3010; Q9967

== ENCOUNTER 2017-08-05 09:21 | Day surgery (SDC) | payer MEDICARE ==
[~2017-08-05] VITALS: Ht 176.5 cm; Wt 125.7 kg
[~2017-08-05 09:21] MED LIST changes: -APIX2.5T PO; +LANTUS2P SQ; -LEVEMIR SQ
[2017-08-05] MEDS ORDERED: IOHEXOL 350 MG/ML 50 ML BTL (for Cath Lab) OTHER ONE (09:22)
[2017-08-05 10:14] VITALS: BP 131/75; PULSE 106; RESP 18; TEMP 98.1; O2SAT 96
[2017-08-05 10:35] LABS: AUTOMATED NEUTROPHIL # 3.7 TH/MM3 (1.8-7.7); BASOPHIL # 0.1 TH/MM3 (0-0.2); EOSINOPHIL # 0.2 TH/MM3 (0-0.4); EOSINOPHIL % 2.1 % (0.0-4.0); HEMATOCRIT 34.9 % (39.0-51.0); HEMOGLOBIN 11.7 GM/DL (13.0-17.0); LYMPHOCYTE # 3.2 TH/MM3 (1.0-4.8); MEAN CELL VOLUME 88.9 FL (80.0-100.0); MEAN CORPUSCULAR HEMOGLOBIN 29.8 PG (27.0-34.0); MEAN CORPUSCULAR HGB CONC 33.6 % (32.0-36.0); MEAN PLATELET VOLUME 8.1 FL (7.0-11.0); MONO % 9.8 % (0.0-8.0); MONOCYTE # 0.8 TH/MM3 (0-0.9); NEUT % 46.1 % (16.0-70.0); PLATELET COUNT 219 TH/MM3 (150-450); RED BLOOD COUNT 3.93 MIL/MM3 (4.50-5.90); RED CELL DISTRIBUTION WIDTH 16.9 % (11.6-17.2); WHITE BLOOD COUNT 7.9 TH/MM3 (4.0-11.0)
[2017-08-05] MEDS ORDERED: SODIUM CHLORIDE FLUSH PRN IV FLUSH (11:00)
[2017-08-05 11:06] LABS: BICARBONATE 22.2 MEQ/L (21.0-32.0); CALCIUM 8.9 MG/DL (8.5-10.1)
[2017-08-05 11:12] LABS: CREATININE 10.48 MG/DL (0.60-1.30)
--- NOTE | 2017-08-05 12:45 | PD.VS.PN ---
Pre-operative Note Pre-operative diagnosis: Likely central vein stenosis, ESRD, R UE swelling Planned procedure: R UE fistulogram and potential intervention Interval History: Pt has been feeling well and no interval changes since I saw him in clinic. ready for surgery. Labs: Laboratory Results Test 08/05/17 10:00 Anion Gap 14 MEQ/L (5-15) Blood Urea Nitrogen 49 MG/DL (7-18) Creatinine 10.48 MG/DL (0.60-1.30) Random Glucose 74 MG/DL (74-106) Calcium Level 8.9 MG/DL (8.5-10.1) Sodium Level 135 MEQ/L (136-145) Potassium Level 4.9 MEQ/L (3.5-5.1) Chloride Level 99 MEQ/L (98-107) Carbon Dioxide Level 22.2 MEQ/L (21.0-32.0) Hematocrit 34.9 % (39.0-51.0) Hemoglobin 11.7 GM/DL (13.0-17.0) Mean Corpuscular Hemoglobin 29.8 PG (27.0-34.0) Mean Corpuscular Hemoglobin Concent 33.6 % (32.0-36.0) Mean Corpuscular Volume 88.9 FL (80.0-100.0) Mean Platelet Volume 8.1 FL (7.0-11.0) Platelet Count 219 TH/MM3 (150-450) Red Blood Count 3.93 MIL/MM3 (4.50-5.90) Red Cell Distribution Width 16.9 % (11.6-17.2) White Blood Count 7.9 TH/MM3 (4.0-11.0) Blood: none needed Imaging: will be made in OR Orders: NPO Post-operative destination: DOCU Operative site marked: Yes Consent: Informed consent has been obtained from Bonifacio Laguerre Jr. I have explained the procedure in detail and discussed the risks, benefits, and potential complications. All questions have been answered. Breezy Umana MD Aug 05, 2017 12:45
[2017-08-05] MEDS ORDERED: MIDAZOLAM HCL 2 MG/2 ML VIAL ONE (13:00)
[2017-08-05] MEDS ORDERED: HEPARIN-NS/PF INJ 500 ML ONE (13:05)
[2017-08-05] MEDS ORDERED: HEPARIN SODIUM - IV 10,000 UNITS/10 ML VIAL ONE (13:12)
--- NOTE | 2017-08-05 13:48 | HHI.PR ---
Immediate Post Op Note Procedure Date: Aug 05, 2017 Pre Op Diagnosis: Central vein occlusion R UE Post Op Diagnosis: Central vein occlusion R UE Surgeon: Breezy Umana [place] Activities Coordinator(s): none Procedure: R UE fistulogram Findings: central vein occlusion and stent occlusion Complications: none Specimen(s) removed: none Estimated blood loss: 5mL Anesthesia: MAC Drains: None Fluids: 100 IVF Patient to: Other (DOCU) Patient Condition: Good Date/Time of Procedure: SEE SURGICAL CARE RECORD Breezy Umana MD Aug 05, 2017 13:48
--- NOTE | 2017-08-05 13:50 | CATHPROC ---
[employer] - Share Your Passion! HIS Report Study Information Study Number Admission Scheduled Start Study Start [id number] Aug 05 2017 9:21AM 08/05/2017 Aug 05 2017 11:54AM [place] Service Cath Endovascular Study Admit Source Facility Department Emergency department [facility] - Project/Production Manager Imaging Physician and Clinical Staff Initial MD Umana, Breezy Simon RN, Osmany RecordAvery Reynolds,RT(R) Scrub Tristin Martin,RT(R) Procedures Performed Procedure Location (Site) Vessel Name Wire insertion Fistula Arterial Graft Equipment Time Restaurant Server Description Size Mfg Part Number Used/Scraped CATHETER, FR4 BERENSTEIN [id number] 13:15 ANGIO-DYNAMICS FR 4 Used 65CM *[id number] INTRODUCER SET, 12:06 [employer] FR 5 [id number] *[id number] Used MICROPUNCTURE, STIFFENED [id number] 12:06 [employer] INDUSTRIES PACK, CCL CUSTOM * Used *[id number] 12:06 NYCOMED OMNIPAQUE, 300 MG, 150ML 150ML [id number] Used 12:06 NYCOMED OMNIPAQUE, 300 MG, 50ML 50ML [id number] Used [id number] 12:06 [employer] BLANKET,WARM AIR CCL * Used *[id number] 13:14 TERUMO MEDICAL SHEATH, FR4 TERUMO (10CM) FR 4 Used *[id number] WIRE, ANGLE GLIDE STIFF .035 [id number] 13:19 TERUMO MEDICAL/FATEMEH 260CM Used 260CM *[id number] WIRE, ANGLED GLIDE .035 [id number] 13:14 TERUMO MEDICAL/FATEMEH 260CM Used 260CM *[id number] History: Allergies Allergy Reaction No Known Allergies Labs Hgb (g/dl) Hct (%) WBC (l/cumm) Platelets (thousands) 11.60-17.00 35.00-51.00 4.00-11.00 150.00-450.00 11.7 34.9 7.9 219 Glucose (mg/dl) BUN (mg/dl) Creatinine (mg/dl) BUN:Creatinine (1:x) 74.00-106.00 7.00-18.00 0.50-1.30 10.00-20.00 74 49 10.4 4.7 Na (meq/l) K (meq/l) 136.00-145.00 3.50-5.10 135 4.9 CPK-MB (ng/ML) 0.50-3.60 Not Drawn Medication Medication Total Dose (Bolus/Oral) Medication Total Dosage/Unit 1% XYLOCAINE 5 mL FENTANYL 100 mcg HEPARIN 3000 units VERSED 2 mg Medications (Bolus/Oral) Medication Time Given Dosage/Unit Administered By Reason FENTANYL 08/05/2017 1:00:52 PM 50 mcg Osmany Simon RN Patient arrived on 50 mcg FENTANYL given by Osmany Simon RN in Left Antecubital via Peripheral IV. Or dered by Breezy Umana. VERSED 08/05/2017 1:01:06 PM 1 mg Osmany Simon RN Patient arrived on 1 mg VERSED given by Osmany Simon RN in Left Antecubital via Peripheral IV. Ordere d by Breezy Umana. 1% XYLOCAINE 08/05/2017 1:06:48 PM 5 mL Breezy Umana Patient arrived on 5 mL 1% XYLOCAINE given by Breezy Umana in Right Arm via Subcutaneous. Ordered b y Breezy Umana. HEPARIN 08/05/2017 1:13:06 PM 3000 units Osmany Simon RN Patient arrived on 3000 units HEPARIN given by Osmany Simon RN in Left Antecubital via Peripheral IV. Ordered by Breezy Umana. FENTANYL 08/05/2017 1:17:49 PM 25 mcg Osmany Simon RN Patient arrived on 25 mcg FENTANYL given by Osmany Simon RN via Peripheral IV. Ordered by Richard Umana VERSED 08/05/2017 1:18:39 PM 0.5 mg Osmany Simon RN Patient arrived on 0.5 mg VERSED given by Osmany Simon RN via Peripheral IV. Ordered by Navi Umana FENTANYL 08/05/2017 1:20:20 PM 25 mcg Osmany Simon RN Patient arrived on 25 mcg FENTANYL given by Osmany Simon RN via Peripheral IV. Ordered by Richard Umana VERSED 08/05/2017 1:21:08 PM 0.5 mg Osmany Simon RN Patient arrived on 0.5 mg VERSED given by Osmany Simon RN via Peripheral IV. Ordered by Navi Umana Medication (Drip) Medication Time Given Dosage/Unit Concentration/Unit Diluent (ml) Solution 08/05/2017 12:58:15 IV Solutions 0 mL (IV) 500 NaCl .9 PM Patient arrived on IV Solutions in Left Antecubital via Peripheral IV. Pump/Drip Flow = 20 ml/hr usin g NaCl .9. Initial Case Assessment Cardiovascular HR Rhythm NIBP Chest Pain 75 sr 113/72 0 Edema Present Skin color Skin None Normal Warm Dry Neurological State Oriented to time-place- Alert Moves all extremities person Respiration - General Respiration Rate SpO2 (%) O2 (lpm) (B/min) 18 98 0 Chronological Log Time Study Chronological Log 12:49:03 Patient arrived via Bed. 12:49:04 Patient Name, D.O.B, / Armband Verified By R.N. 12:49:05 Consent signed by the physician and the patient and verified by the Project/Production Manager Imaging staff. 12:49:06 Pre-op and post- op instructions given; patient acknowledges understanding of instructions. 12:55:06 Verbal Stimulation=2 Physical Stimulation=2 Airway=2 Respiration=2 TOTAL=8. (0=absent, 1=li mited, 2=present) 12:56:37 Presedation assessment performed by Project/Production Manager Imaging RN. 12:56:39 Patient has been NPO for More than 6Hrs. Vitals capture started with the following parameters, Patient=Adult, Interval=5 min, Initial Pr wkxagb=451 mmHg, 12:57:31 Deflation Rate=5 mmHg, Cuff placed on Right Arm 12:57:44 Reference ECG taken 12:57:52 A # 20 IV was noted in the Antecubital (left). Grade = 0 12:58:11 HR=75 bpm, UDDE=349/72 mmhg, SpO2=96.0 %, Resp=5 B/min, Toth=2 12:58:15 Patient arrived on IV Solutions in Left Antecubital via Peripheral IV. Pump/Drip Flow = 20 ml/hr using NaCl .9. 12:58:32 History and physical on the chart or being dictated. Assessment: Initial Case, HR=75 BPM, Rhythm=sr, RTBV=208/72 mmhg, Chest Pain=0, Edema=None, Col or=Normal, Skin = Warm, Dry 12:58:46 Neurological: State=Alert, Ox3, VAN Respiration: Resp=18 B/min, SpO2=98 %, O2=0 lpm 12:59:16 Right fistulagram prepped with 2% chlorhexidine, and draped after a 3 min. waiting time. Patient arrived on 50 mcg FENTANYL given by Osmany Simon RN in Left Antecubital via Peripheral IV. Ordered by Dong, 13:00:52 Breezy. Patient arrived on 1 mg VERSED given by Osmany Simon RN in Left Antecubital via Peripheral IV. Ordered by Dong, 13:01:06 Breezy. 13:03:04 HR=96 bpm, PTQY=604/72 mmhg, SpO2=98.0 %, Resp=10 B/min, Toth=2 13:03:10 MD arrived. Time Out. Correct patient, correct procedure, correct physician, power injector not loaded with contrast with surgical 13:06:25 team present. Time Out Concurred by MD and individual staff in procedure. Not loaded at this ti me. Time Out #2 - Consents verified, patient in correct position, all results are labled and displa yed, safety precautions 13::43 taken, antibiotics administered. Time out concurred by MD, individual staff and HOOKER INSPECTOR. 13:06:45 Case Start 13:06:47 Presedation re-assessment performed by Project/Production Manager Imaging RN. Patient arrived on 5 mL 1% XYLOCAINE given by Breezy Umana in Right Arm via Subcutaneous. Ord ered by Dong, 13:06:48 Breezy. 13:08:07 HR=85 bpm, XFFW=249/61 mmhg, Resp=15 B/min, Toth=2 13:10:04 Access site was Right Fistula. A INTRODUCER SET, MICROPUNCTURE, STIFFENED FR 5 was advanced into the Fistula using the Percuta neous 13:10:40 technique. 13:11:14 Manual injections through micropuncture sheath. 13:13:06 HR=76 bpm, NIBP=96/58 mmhg, SpO2=93.0 %, Resp=16 B/min, Toth=2 Patient arrived on 3000 units HEPARIN given by Osmany Simon RN in Left Antecubital via Peripher al IV. Ordered by 13:13:06 Breezy Umana. 13:13:23 A WIRE, ANGLED GLIDE .035 260CM 260CM was inserted via Fistula. A SHEATH, FR4 TERUMO (10CM) FR 4 was exchanged in the Fistula. This was necessary in order to a ccomodate a 13:13:43 larger catheter. A CATHETER, FR4 BERENSTEIN 65CM FR 4 was advanced over a wire. OMNIPAQUE, 300 MG, 50ML 50ML was used for 13:15:04 injections. 13:17:49 Patient arrived on 25 mcg FENTANYL given by Osmany Simon RN via Peripheral IV. Ordered by Breezy Brumfield. 13:18:36 HR=77 bpm, SYIL=739/68 mmhg, SpO2=98.0 %, Resp=13 B/min, Toth=2 13:18:39 Patient arrived on 0.5 mg VERSED given by Osmany Simon RN via Peripheral IV. Ordered by Breezy Martínez. 13:18:44 The previous wire was exchanged for a WIRE, ANGLE GLIDE STIFF .035 260CM 260CM. 13:20:20 Patient arrived on 25 mcg FENTANYL given by Osmany Simon RN via Peripheral IV. Ordered by Breezy Brumfield. 13:21:08 Patient arrived on 0.5 mg VERSED given by Osmany Simon RN via Peripheral IV. Ordered by Breezy Martínez. 13:23:06 HR=79 bpm, QBAQ=410/62 mmhg, Resp=9 B/min, Toth=2 13:28:07 HR=84 bpm, QXJR=345/66 mmhg, SpO2=93.0 %, Resp=9 B/min, Toth=2 13:28:35 Catheter was removed w/o difficulty 13:28:37 Wire removed 13:29:44 Sheath removed; pressure applied to access site. 13:32:02 Case End 13:32:08 No case complications noted. 13:32:10 Cine recording checked. 13:32:13 Bedside Report will be given. 13:32:15 Contrast Scanned 13:33:06 HR=85 bpm, KXRU=825/69 mmhg, SpO2=96.0 %, Resp=10 B/min, Toth=2 13:38:07 HR=77 bpm, HKXR=148/65 mmhg, Resp=11 B/min, Toth=2 13:38:08 Sterile dressing applied to site 13:40:49 Patient moved to [facility] End Study - Contrast Media Used In Study Contrast Total Opened (mL) Total Used (mL) Total Wasted (mL) Omnipaque 25 25 0 End Study - Maximum Contrast Load Max Contrast Load (mL) 60.4 End Study - Radiation Exposure Fluoro Time (minutes) 7.0 End Study - Patient Disposition Complications Transferred To Telemetry Bed
--- NOTE | 2017-08-05 13:50 | CATHPROC ---
[employer] HIS Report Study Information Study Number Admission Scheduled Start Study Start [id number] Aug 05 2017 9:21AM 08/05/2017 Aug 05 2017 11:54AM [place] Service Cath Endovascular Study Admit Source Facility Department Emergency department [facility] - M48 M60 Armor Crewman Physician and Clinical Staff Initial MD Umana, Breezy Simon RN, Osmany RecordAvery Reynolds,RT(R) Scrub Tristin Martin,RT(R) Procedures Performed Procedure Location (Site) Vessel Name Wire insertion Fistula Arterial Graft Equipment Time Gear Hobber Operator Description Size Mfg Part Number Used/Scraped CATHETER, FR4 BERENSTEIN [id number] 13:15 ANGIO-DYNAMICS FR 4 Used 65CM *[id number] INTRODUCER SET, 12:06 [employer] FR 5 [id number] *[id number] Used MICROPUNCTURE, STIFFENED [id number] 12:06 [employer] INDUSTRIES PACK, CCL CUSTOM * Used *[id number] 12:06 NYCOMED OMNIPAQUE, 300 MG, 150ML 150ML [id number] Used 12:06 NYCOMED OMNIPAQUE, 300 MG, 50ML 50ML [id number] Used [id number] 12:06 [employer] BLANK[employer],WARM AIR CCL * Used *[id number] 13:14 TERUMO MEDICAL SHEATH, FR4 TERUMO (10CM) FR 4 Used *[id number] WIRE, ANGLE GLIDE STIFF .035 [id number] 13:19 TERUMO MEDICAL/FATEMEH 260CM Used 260CM *[id number] WIRE, ANGLED GLIDE .035 [id number] 13:14 TERUMO MEDICAL/FATEMEH 260CM Used 260CM *[id number] History: Allergies Allergy Reaction No Known Allergies Labs Hgb (g/dl) Hct (%) WBC (l/cumm) Platelets (thousands) 11.60-17.00 35.00-51.00 4.00-11.00 150.00-450.00 11.7 34.9 7.9 219 Glucose (mg/dl) BUN (mg/dl) Creatinine (mg/dl) BUN:Creatinine (1:x) 74.00-106.00 7.00-18.00 0.50-1.30 10.00-20.00 74 49 10.4 4.7 Na (meq/l) K (meq/l) 136.00-145.00 3.50-5.10 135 4.9 CPK-MB (ng/ML) 0.50-3.60 Not Drawn Medication Medication Total Dose (Bolus/Oral) Medication Total Dosage/Unit 1% XYLOCAINE 5 mL FENTANYL 100 mcg HEPARIN 3000 units VERSED 2 mg Medications (Bolus/Oral) Medication Time Given Dosage/Unit Administered By Reason FENTANYL 08/05/2017 1:00:52 PM 50 mcg Osmany Simon RN Patient arrived on 50 mcg FENTANYL given by Osamny Simon RN in Left Antecubital via Peripheral IV. Or dered by Breezy Umana. VERSED 08/05/2017 1:01:06 PM 1 mg Osmany Simon RN Patient arrived on 1 mg VERSED given by Osmany Simon RN in Left Antecubital via Peripheral IV. Ordere d by Breezy Umana. 1% XYLOCAINE 08/05/2017 1:06:48 PM 5 mL Breezy Umana Patient arrived on 5 mL 1% XYLOCAINE given by Breezy Umana in Right Arm via Subcutaneous. Ordered b y Breezy Umana. HEPARIN 08/05/2017 1:13:06 PM 3000 units Osmany Simon RN Patient arrived on 3000 units HEPARIN given by Osmany Simon RN in Left Antecubital via Peripheral IV. Ordered by Breezy Umana. FENTANYL 08/05/2017 1:17:49 PM 25 mcg Osmany Simon RN Patient arrived on 25 mcg FENTANYL given by Osmany Simon RN via Peripheral IV. Ordered by Richard Umana VERSED 08/05/2017 1:18:39 PM 0.5 mg Osmany Simon RN Patient arrived on 0.5 mg VERSED given by Osmany Simon RN via Peripheral IV. Ordered by Navi Umana FENTANYL 08/05/2017 1:20:20 PM 25 mcg Osmany Simon RN Patient arrived on 25 mcg FENTANYL given by Osmany Simon RN via Peripheral IV. Ordered by Richard Umana VERSED 08/05/2017 1:21:08 PM 0.5 mg Osmany Simon RN Patient arrived on 0.5 mg VERSED given by Osmany Simon RN via Peripheral IV. Ordered by Navi Umana Medication (Drip) Medication Time Given Dosage/Unit Concentration/Unit Diluent (ml) Solution 08/05/2017 12:58:15 IV Solutions 0 mL (IV) 500 NaCl .9 PM Patient arrived on IV Solutions in Left Antecubital via Peripheral IV. Pump/Drip Flow = 20 ml/hr usin g NaCl .9. Initial Case Assessment Cardiovascular HR Rhythm NIBP Chest Pain 75 sr 113/72 0 Edema Present Skin color Skin None Normal Warm Dry Neurological State Oriented to time-place- Alert Moves all extremities person Respiration - General Respiration Rate SpO2 (%) O2 (lpm) (B/min) 18 98 0 Chronological Log Time Study Chronological Log 12:49:03 Patient arrived via Bed. 12:49:04 Patient Name, D.O.B, / Armband Verified By R.N. 12:49:05 Consent signed by the physician and the patient and verified by the M48 M60 Armor Crewman staff. 12:49:06 Pre-op and post- op instructions given; patient acknowledges understanding of instructions. 12:55:06 Verbal Stimulation=2 Physical Stimulation=2 Airway=2 Respiration=2 TOTAL=8. (0=absent, 1=li mited, 2=present) 12:56:37 Presedation assessment performed by M48 M60 Armor Crewman RN. 12:56:39 Patient has been NPO for More than 6Hrs. Vitals capture started with the following parameters, Patient=Adult, Interval=5 min, Initial Pr akzzhk=040 mmHg, 12:57:31 Deflation Rate=5 mmHg, Cuff placed on Right Arm 12:57:44 Reference ECG taken 12:57:52 A # 20 IV was noted in the Antecubital (left). Grade = 0 12:58:11 HR=75 bpm, XBTM=333/72 mmhg, SpO2=96.0 %, Resp=5 B/min, Toth=2 12:58:15 Patient arrived on IV Solutions in Left Antecubital via Peripheral IV. Pump/Drip Flow = 20 ml/hr using NaCl .9. 12:58:32 History and physical on the chart or being dictated. Assessment: Initial Case, HR=75 BPM, Rhythm=sr, BVTT=387/72 mmhg, Chest Pain=0, Edema=None, Col or=Normal, Skin = Warm, Dry 12:58:46 Neurological: State=Alert, Ox3, VAN Respiration: Resp=18 B/min, SpO2=98 %, O2=0 lpm 12:59:16 Right fistulagram prepped with 2% chlorhexidine, and draped after a 3 min. waiting time. Patient arrived on 50 mcg FENTANYL given by Osmany Simon RN in Left Antecubital via Peripheral IV. Ordered by Dong, 13:00:52 Breezy. Patient arrived on 1 mg VERSED given by Osmany Simon RN in Left Antecubital via Peripheral IV. Ordered by Dong, 13:01:06 Breezy. 13:03:04 HR=96 bpm, UAOH=596/72 mmhg, SpO2=98.0 %, Resp=10 B/min, Toth=2 13:03:10 MD arrived. Time Out. Correct patient, correct procedure, correct physician, power injector not loaded with contrast with surgical 13:06:25 team present. Time Out Concurred by MD and individual staff in procedure. Not loaded at this ti me. Time Out #2 - Consents verified, patient in correct position, all results are labled and displa yed, safety precautions 13::43 taken, antibiotics administered. Time out concurred by MD, individual staff and CONSTRUCTION TRADES TEACHER. 13:06:45 Case Start 13:06:47 Presedation re-assessment performed by M48 M60 Armor Crewman RN. Patient arrived on 5 mL 1% XYLOCAINE given by Breezy Umana in Right Arm via Subcutaneous. Ord ered by Dong, 13:06:48 Breezy. 13:08:07 HR=85 bpm, AOXW=153/61 mmhg, Resp=15 B/min, Toth=2 13:10:04 Access site was Right Fistula. A INTRODUCER SET, MICROPUNCTURE, STIFFENED FR 5 was advanced into the Fistula using the Percuta neous 13:10:40 technique. 13:11:14 Manual injections through micropuncture sheath. 13:13:06 HR=76 bpm, NIBP=96/58 mmhg, SpO2=93.0 %, Resp=16 B/min, Toth=2 Patient arrived on 3000 units HEPARIN given by Osmany Simon RN in Left Antecubital via Peripher al IV. Ordered by 13:13:06 Breezy Umana. 13:13:23 A WIRE, ANGLED GLIDE .035 260CM 260CM was inserted via Fistula. A SHEATH, FR4 TERUMO (10CM) FR 4 was exchanged in the Fistula. This was necessary in order to a ccomodate a 13:13:43 larger catheter. A CATHETER, FR4 BERENSTEIN 65CM FR 4 was advanced over a wire. OMNIPAQUE, 300 MG, 50ML 50ML was used for 13:15:04 injections. 13:17:49 Patient arrived on 25 mcg FENTANYL given by Osmany Simon RN via Peripheral IV. Ordered by Breezy Brumfield. 13:18:36 HR=77 bpm, TMUH=884/68 mmhg, SpO2=98.0 %, Resp=13 B/min, Toth=2 13:18:39 Patient arrived on 0.5 mg VERSED given by Osmany Simon RN via Peripheral IV. Ordered by Breezy Martínez. 13:18:44 The previous wire was exchanged for a WIRE, ANGLE GLIDE STIFF .035 260CM 260CM. 13:20:20 Patient arrived on 25 mcg FENTANYL given by Osmany Simon RN via Peripheral IV. Ordered by Breezy Brumfield. 13:21:08 Patient arrived on 0.5 mg VERSED given by Osmany Simon RN via Peripheral IV. Ordered by Breezy Martínez. 13:23:06 HR=79 bpm, WIXO=564/62 mmhg, Resp=9 B/min, Toth=2 13:28:07 HR=84 bpm, RDMS=860/66 mmhg, SpO2=93.0 %, Resp=9 B/min, Toth=2 13:28:35 Catheter was removed w/o difficulty 13:28:37 Wire removed 13:29:44 Sheath removed; pressure applied to access site. 13:32:02 Case End 13:32:08 No case complications noted. 13:32:10 Cine recording checked. 13:32:13 Bedside Report will be given. 13:32:15 Contrast Scanned 13:33:06 HR=85 bpm, HBGO=316/69 mmhg, SpO2=96.0 %, Resp=10 B/min, Toth=2 13:38:07 HR=77 bpm, JJID=152/65 mmhg, Resp=11 B/min, Toth=2 13:38:08 Sterile dressing applied to site 13:40:49 Patient moved to [facility] End Study - Contrast Media Used In Study Contrast Total Opened (mL) Total Used (mL) Total Wasted (mL) Omnipaque 25 25 0 End Study - Maximum Contrast Load Max Contrast Load (mL) 60.4 End Study - Radiation Exposure Fluoro Time (minutes) 7.0 End Study - Patient Disposition Complications Transferred To Telemetry Bed
--- NOTE | 2017-08-05 13:50 | CATHPROC ---
[email or web address] HIS Report Study Information Study Number Admission Scheduled Start Study Start [id number] Aug 05 2017 9:21AM 08/05/2017 Aug 05 2017 11:54AM [facility] Service Cath Endovascular Study Admit Source Facility Department Emergency department [facility] - Domestic Technician Physician and Clinical Staff Initial MD Umana, Breezy Simon RN, Osmany RecordAvery Reynolds,RT(R) Scrub Tristin Martin,RT(R) Procedures Performed Procedure Location (Site) Vessel Name Wire insertion Fistula Arterial Graft Equipment Time Medical Receptionist Description Size Mfg Part Number Used/Scraped CATHETER, FR4 BERENSTEIN [id number] 13:15 ANGIO-DYNAMICS FR 4 Used 65CM *[id number] INTRODUCER SET, 12:06 [employer] FR 5 [id number] *[id number] Used MICROPUNCTURE, STIFFENED [id number] 12:06 [employer] PACK, CCL CUSTOM * Used *[id number] 12:06 NYCOMED OMNIPAQUE, 300 MG, 150ML 150ML [id number] Used 12:06 NYCOMED OMNIPAQUE, 300 MG, 50ML 50ML [id number] Used [id number] 12:06 FULLER MED[employer] BLANKET,WARM AIR CCL * Used *[id number] 13:14 TERUMO MEDICAL SHEATH, FR4 TERUMO (10CM) FR 4 Used *[id number] WIRE, ANGLE GLIDE STIFF .035 [id number] 13:19 TERUMO MEDICAL/FATEMEH 260CM Used 260CM *[id number] WIRE, ANGLED GLIDE .035 [id number] 13:14 TERUMO MEDICAL/FATEMEH 260CM Used 260CM *[id number] History: Allergies Allergy Reaction No Known Allergies Labs Hgb (g/dl) Hct (%) WBC (l/cumm) Platelets (thousands) 11.60-17.00 35.00-51.00 4.00-11.00 150.00-450.00 11.7 34.9 7.9 219 Glucose (mg/dl) BUN (mg/dl) Creatinine (mg/dl) BUN:Creatinine (1:x) 74.00-106.00 7.00-18.00 0.50-1.30 10.00-20.00 74 49 10.4 4.7 Na (meq/l) K (meq/l) 136.00-145.00 3.50-5.10 135 4.9 CPK-MB (ng/ML) 0.50-3.60 Not Drawn Medication Medication Total Dose (Bolus/Oral) Medication Total Dosage/Unit 1% XYLOCAINE 5 mL FENTANYL 100 mcg HEPARIN 3000 units VERSED 2 mg Medications (Bolus/Oral) Medication Time Given Dosage/Unit Administered By Reason FENTANYL 08/05/2017 1:00:52 PM 50 mcg Osmany Simon RN Patient arrived on 50 mcg FENTANYL given by Osmany Simon RN in Left Antecubital via Peripheral IV. Or dered by Breezy Umana. VERSED 08/05/2017 1:01:06 PM 1 mg Osmany Simon RN Patient arrived on 1 mg VERSED given by Osmany Simon RN in Left Antecubital via Peripheral IV. Ordere d by Breezy Umana. 1% XYLOCAINE 08/05/2017 1:06:48 PM 5 mL Breezy Umana Patient arrived on 5 mL 1% XYLOCAINE given by Breezy Umana in Right Arm via Subcutaneous. Ordered b y Breezy Umana. HEPARIN 08/05/2017 1:13:06 PM 3000 units Osmany Simon RN Patient arrived on 3000 units HEPARIN given by Osmany Simon RN in Left Antecubital via Peripheral IV. Ordered by Breezy Umana. FENTANYL 08/05/2017 1:17:49 PM 25 mcg Osmany Simon RN Patient arrived on 25 mcg FENTANYL given by Osmany Simon RN via Peripheral IV. Ordered by Richard Umana VERSED 08/05/2017 1:18:39 PM 0.5 mg Osmany Simon RN Patient arrived on 0.5 mg VERSED given by Osmany Simon RN via Peripheral IV. Ordered by Navi Umana FENTANYL 08/05/2017 1:20:20 PM 25 mcg Osmany Simon RN Patient arrived on 25 mcg FENTANYL given by Osmany Simon RN via Peripheral IV. Ordered by Richard Umana VERSED 08/05/2017 1:21:08 PM 0.5 mg Osmany Simon RN Patient arrived on 0.5 mg VERSED given by Osmany Simon RN via Peripheral IV. Ordered by Navi Umana Medication (Drip) Medication Time Given Dosage/Unit Concentration/Unit Diluent (ml) Solution 08/05/2017 12:58:15 IV Solutions 0 mL (IV) 500 NaCl .9 PM Patient arrived on IV Solutions in Left Antecubital via Peripheral IV. Pump/Drip Flow = 20 ml/hr usin g NaCl .9. Initial Case Assessment Cardiovascular HR Rhythm NIBP Chest Pain 75 sr 113/72 0 Edema Present Skin color Skin None Normal Warm Dry Neurological State Oriented to time-place- Alert Moves all extremities person Respiration - General Respiration Rate SpO2 (%) O2 (lpm) (B/min) 18 98 0 Chronological Log Time Study Chronological Log 12:49:03 Patient arrived via Bed. 12:49:04 Patient Name, D.O.B, / Armband Verified By R.N. 12:49:05 Consent signed by the physician and the patient and verified by the Domestic Technician staff. 12:49:06 Pre-op and post- op instructions given; patient acknowledges understanding of instructions. 12:55:06 Verbal Stimulation=2 Physical Stimulation=2 Airway=2 Respiration=2 TOTAL=8. (0=absent, 1=li mited, 2=present) 12:56:37 Presedation assessment performed by Domestic Technician RN. 12:56:39 Patient has been NPO for More than 6Hrs. Vitals capture started with the following parameters, Patient=Adult, Interval=5 min, Initial Pr ihmiol=555 mmHg, 12:57:31 Deflation Rate=5 mmHg, Cuff placed on Right Arm 12:57:44 Reference ECG taken 12:57:52 A # 20 IV was noted in the Antecubital (left). Grade = 0 12:58:11 HR=75 bpm, VUWX=039/72 mmhg, SpO2=96.0 %, Resp=5 B/min, Toth=2 12:58:15 Patient arrived on IV Solutions in Left Antecubital via Peripheral IV. Pump/Drip Flow = 20 ml/hr using NaCl .9. 12:58:32 History and physical on the chart or being dictated. Assessment: Initial Case, HR=75 BPM, Rhythm=sr, OOJO=961/72 mmhg, Chest Pain=0, Edema=None, Col or=Normal, Skin = Warm, Dry 12:58:46 Neurological: State=Alert, Ox3, VAN Respiration: Resp=18 B/min, SpO2=98 %, O2=0 lpm 12:59:16 Right fistulagram prepped with 2% chlorhexidine, and draped after a 3 min. waiting time. Patient arrived on 50 mcg FENTANYL given by Osmany Simon RN in Left Antecubital via Peripheral IV. Ordered by Dong, 13:00:52 Breezy. Patient arrived on 1 mg VERSED given by Osmany Simon RN in Left Antecubital via Peripheral IV. Ordered by Dong, 13:01:06 Breezy. 13:03:04 HR=96 bpm, LWLC=957/72 mmhg, SpO2=98.0 %, Resp=10 B/min, Toth=2 13:03:10 MD arrived. Time Out. Correct patient, correct procedure, correct physician, power injector not loaded with contrast with surgical 13:06:25 team present. Time Out Concurred by MD and individual staff in procedure. Not loaded at this ti me. Time Out #2 - Consents verified, patient in correct position, all results are labled and displa yed, safety precautions 13::43 taken, antibiotics administered. Time out concurred by MD, individual staff and COW PUNCHER. 13:06:45 Case Start 13:06:47 Presedation re-assessment performed by Domestic Technician RN. Patient arrived on 5 mL 1% XYLOCAINE given by Breezy Umana in Right Arm via Subcutaneous. Ord ered by Dong, 13:06:48 Breezy. 13:08:07 HR=85 bpm, KLZV=934/61 mmhg, Resp=15 B/min, Toth=2 13:10:04 Access site was Right Fistula. A INTRODUCER SET, MICROPUNCTURE, STIFFENED FR 5 was advanced into the Fistula using the Percuta neous 13:10:40 technique. 13:11:14 Manual injections through micropuncture sheath. 13:13:06 HR=76 bpm, NIBP=96/58 mmhg, SpO2=93.0 %, Resp=16 B/min, Toth=2 Patient arrived on 3000 units HEPARIN given by Osmany Simon RN in Left Antecubital via Peripher al IV. Ordered by 13:13:06 Breezy Umana. 13:13:23 A WIRE, ANGLED GLIDE .035 260CM 260CM was inserted via Fistula. A SHEATH, FR4 TERUMO (10CM) FR 4 was exchanged in the Fistula. This was necessary in order to a ccomodate a 13:13:43 larger catheter. A CATHETER, FR4 BERENSTEIN 65CM FR 4 was advanced over a wire. OMNIPAQUE, 300 MG, 50ML 50ML was used for 13:15:04 injections. 13:17:49 Patient arrived on 25 mcg FENTANYL given by Osmany Simon RN via Peripheral IV. Ordered by Breezy Brumfield. 13:18:36 HR=77 bpm, FCZS=279/68 mmhg, SpO2=98.0 %, Resp=13 B/min, Toth=2 13:18:39 Patient arrived on 0.5 mg VERSED given by Osmany Simon RN via Peripheral IV. Ordered by Breezy Martínez. 13:18:44 The previous wire was exchanged for a WIRE, ANGLE GLIDE STIFF .035 260CM 260CM. 13:20:20 Patient arrived on 25 mcg FENTANYL given by Osmany Simon RN via Peripheral IV. Ordered by Breezy Brumfield. 13:21:08 Patient arrived on 0.5 mg VERSED given by Osmany Simon RN via Peripheral IV. Ordered by Breezy Martínez. 13:23:06 HR=79 bpm, PUUD=818/62 mmhg, Resp=9 B/min, Toth=2 13:28:07 HR=84 bpm, HVAD=505/66 mmhg, SpO2=93.0 %, Resp=9 B/min, Toth=2 13:28:35 Catheter was removed w/o difficulty 13:28:37 Wire removed 13:29:44 Sheath removed; pressure applied to access site. 13:32:02 Case End 13:32:08 No case complications noted. 13:32:10 Cine recording checked. 13:32:13 Bedside Report will be given. 13:32:15 Contrast Scanned 13:33:06 HR=85 bpm, MVLM=657/69 mmhg, SpO2=96.0 %, Resp=10 B/min, Toth=2 13:38:07 HR=77 bpm, RJVK=985/65 mmhg, Resp=11 B/min, Toth=2 13:38:08 Sterile dressing applied to site 13:40:49 Patient moved to [facility] End Study - Contrast Media Used In Study Contrast Total Opened (mL) Total Used (mL) Total Wasted (mL) Omnipaque 25 25 0 End Study - Maximum Contrast Load Max Contrast Load (mL) 60.4 End Study - Radiation Exposure Fluoro Time (minutes) 7.0 End Study - Patient Disposition Complications Transferred To Telemetry Bed
[2017-08-05] MEDS ORDERED: SODIUM CHLORIDE FLUSH BID IV FLUSH SCH (21:00)
--- NOTE | 2017-08-06 06:48 | MP ---
cc: BREEZY UMANA MD DATE OF SURGERY 08/05/2017 PREOPERATIVE DIAGNOSIS Central vein stenosis, right upper extremity arteriovenous fistula. POSTOPERATIVE DIAGNOSIS Central vein stenosis, right upper extremity arteriovenous fistula. PROCEDURE 1. Ultrasound guidance to the right upper extremity fistula. 2. Fistulogram MEDICATIONS Breezy Umana MD ANESTHESIA Local with sedation INDICATIONS Mr. Laguerre is a gentleman with right upper extremity brachial basilic fistula. He has a markedly swollen arm and is taken to the operating room for endovascular imaging. DESCRIPTION OF PROCEDURE Informed consent obtained from the patient. He was taken to the operating room, placed supine on the operating table. An appropriate time-out was taken to ensure the patient's identity, the operative site and planned procedure. No antibiotics necessary as this is a clean procedure without planned implantation of any foreign object. Everyone in the room agreed with the time-out and we proceeded. His right arm was prepped and draped and locally anesthetized with 1% lidocaine. Under ultrasonographic guidance, a 21 gauge micropuncture needle was used to access the fistula. This exchanged using Seldinger technique with a micropuncture sheath through which a fistulogram was obtained. The patient was systemically heparinized at 3000 units of IV heparin. A 0.035 Glidewire was introduced and the micropuncture sheath was exchanged for a 4-Sammarinese sheath. A Berenstein catheter was placed over the glide and multiple attempts were made to recanalized his axillary vein which was occluded with both a regular Glidewire and a stiffened Glidewire. Neither of these was successful. The wire, catheter, and sheath were removed and pressure held for hemostasis. There were no complications. I was present and scrubbed and performed the entire procedure. INTERPRETATION IMAGES The patient has a patent fistula up to the axillary vein at which point it is occluded. There is an occluded subclavian vein stent. MD JENELLE Torres/WILVER /4:58 AM /6:44 AM
== END 2017-08-05 15:43 | disposition home or self-care (01) ==
LOC: HDIC 09:21 → HDOC 09:21
PROVIDERS: ATTEND Surgery
DX: T82.868A Thrombosis due to vascular prosthetic devices, implants and grafts, initial encounter (principal); I87.1 Compression of vein; N18.6 End stage renal disease; Z99.2 Dependence on renal dialysis
CPT/HCPCS: 75820; 80048; 85025; 99152; 99153; C1769; C1893; J1644; J2250; J3010; Q9967

== ENCOUNTER 2017-08-12 07:22 | Day surgery (SDC) | payer MEDICARE, MEDICAID ==
[~2017-08-12] VITALS: Ht 171.4 cm; Wt 124.5 kg
[2017-08-12] MEDS ORDERED: IOHEXOL 350 MG/ML 50 ML BTL (for RAD DIAG) OTHER ONE (07:23)
[2017-08-12 07:39] VITALS: BP 132/75; PULSE 100; RESP 20; TEMP 97.4; O2SAT 97
[2017-08-12] MEDS ORDERED: SODIUM CHLORIDE 0.9% 1000 ML IV SCH (08:00)
[2017-08-12] MEDS ORDERED: CINA30 PO (08:10)
[2017-08-12] MEDS ORDERED: SEVEL800 PO (08:11)
[2017-08-12] MEDS ORDERED: MIDAZOLAM HCL 2 MG/2 ML VIAL ONE ×2 (08:19→09:10)
[2017-08-12] MEDS ORDERED: LEVOFLOXACIN 500 MG PREMIX INJ 100 ML IV ONE ×2 (08:19→08:20)
[2017-08-12 08:34] LABS: APTT (PATIENT) 25.4 SEC (24.3-30.1)
[2017-08-12 08:42] LABS: BICARBONATE 21.4 MEQ/L (21.0-32.0); POTASSIUM 5.1 MEQ/L (3.5-5.1)
[2017-08-12 10:05] VITALS: BP 117/60; PULSE 71; RESP 20; TEMP 97; O2SAT 96
[2017-08-12 10:20] VITALS: BP 105/56; PULSE 86; RESP 18; O2SAT 96
--- NOTE | 2017-08-12 10:25 | PD.RAD ---
Post Procedure Progress Note Pre Procedure Diagnosis: (1) ESRD (end stage renal disease) on dialysis Post Procedure Diagnosis: (1) ESRD (end stage renal disease) on dialysis Procedure Date: Aug 12, 2017 Supervising Radiologist: Jordan Fernandez Proceduralist/Assist: RT Margo(R) Estimated blood loss: none Anesthesia: Local, Conscious Sedation Plan of Activity Patient to Unit: ROPU Patient Condition: Good See PACS Report for procedural detail/treatment Drainage Procedure Procedure 1 Imaging Guidance: Fluoroscopy, Ultrasound Procedure Type: Suprapubic Tube Procedure: Placement Occitan: 14 Drainage: Barre drainage Fluid Description: Jordan Velarde MD Aug 12, 2017 10:25
--- NOTE | 2017-08-12 10:43 | RADRPT ---
EXAM DATE/TIME: 08/12/2017 09:35 [facility] COMPARISON: No previous studies available for comparison. INDICATIONS : Patient presents with urinary retention in need of Suprapubic catheter insertion. MEDICAL HISTORY : Renal Failure Urethral stricture Chronic UTI GERD BPH Blood clot Rt arm Type two diabetes Arthritis SURGICAL HISTORY : Subclavian stent Heart stent Prostate surgery ENCOUNTER: Initial ACUITY: 1 week PAIN SCORE: 0/10 LOCATION: N/A FLUORO TIME: 4.8 minutes IMAGE SERIES: 1 SEDATION TIME: 60 minutes CONTRAST: 36 cc Omnipaque 350 (iohexol) Suprapubic tube MEDICATION(S): 1.) 4 mg midazolam (Versed) IV 2.) 200 mcg fentanyl (Sublimaze) IV 3.) 500 mg levofloxacin (Levaquin) IV Prophylactic antibiotics were administered with appropriate pre-procedure timing. DEVICE(S): 1.) Pink catheter 14 FR PROCEDURE : 1. Ultrasound localization of the bladder. 2. Suprapubic catheter placement. 3. Conscious sedation with continuous EKG and oximetry monitoring. The risks, benefits and alternatives to the procedure were explained and verbal and written consent w as obtained. The site was prepped in sterile fashion. Full sterile technique was used, including ca p, mask, sterile gloves and gown and a large sterile sheet. Hand hygiene and 2% chlorhexidine and/or betadine/alcohol prep was utilized per protocol for cutaneous antisepsis. Sterile gel and sterile p robe cover were utilized for ultrasound guidance. The skin and subcutaneous tissues were infiltrated with local anesthetic solution. Utilizing ultrasound and fluoroscopic guidance the urinary bladder was localized. Just above the pub ic symphysis in the midline a dermatotomy was made and serial dilatation was performed to accept a 14 Lao Pink catheter. The balloon was inflated and positive contrast was injected to document intr aluminal position. Conscious sedation was performed with the prescribed dosages and duration as above in the presence of an independent trained radiology nurse to assist in the monitoring of the patient. EKG and oximetry remained stable throughout the procedure. The patient tolerated the procedure well and there were n o complications. The patient was sent to post anesthesia recovery in stable condition. CONCLUSION: Uncomplicated suprapubic catheter placement. Jordan Fernandez MD on August 12, 2017 at 10:39 Board Certified Radiologist. This report was verified electronically.
[2017-08-12 10:50] VITALS: BP 116/66; PULSE 82; RESP 16; O2SAT 98
[2017-08-12 11:20] VITALS: BP 111/64; PULSE 71; RESP 16; O2SAT 96
== END 2017-08-12 11:45 | disposition home or self-care (01) ==
LOC: HROP 07:22 → HRIP 07:26 → HROP 11:45
PROVIDERS: ATTEND Urology
DX: N40.1 Benign prostatic hyperplasia with lower urinary tract symptoms (principal); R33.8 Other retention of urine; N18.6 End stage renal disease; E11.22 Type 2 diabetes mellitus with diabetic chronic kidney disease; K21.9 Gastro-esophageal reflux disease without esophagitis; Z99.2 Dependence on renal dialysis; Z95.5 Presence of coronary angioplasty implant and graft
CPT/HCPCS: 51102; 76942; 77002; 80048; 85610; 85730; 99152; 99153; C1769; C1894; J1956; J2250; J3010; J7030; Q9967

== ENCOUNTER 2017-09-04 06:45 | Day surgery (SDC) | payer OTHER, MEDICAID ==
[~2017-09-04] VITALS: Ht 175.3 cm; Wt 127.2 kg
[~2017-09-04 06:45] MED LIST changes: +CINA30 PO; +SEVEL800 PO
[2017-09-04] MEDS ORDERED: ASPI-516 CHEW (07:24)
[2017-09-04] MEDS ORDERED: POVIDONE IODINE 5% (ANTISEPSIS KIT) 4 APPLICATIONS EACH NARE PRN (07:30)
[2017-09-04] MEDS ORDERED: LACTATED RINGER'S 1000 ML IV PRN (07:30)
[2017-09-04] MEDS ORDERED: CHLORHEXIDINE GLUCONATE 2 % 1 PACK (2 CLOTHS) TOPICAL PRN (07:30)
[2017-09-04] MEDS ORDERED: METOPROLOL TARTRATE 25 MG TAB PO PRN (07:30)
[2017-09-04] MEDS ORDERED: SODIUM CHLORID 0.9% 500 ML IV PRN (07:30)
[2017-09-04] MEDS ORDERED: HEPARIN SODIUM - IV 2,000 UNITS/2 ML VIAL ONE (07:56)
[2017-09-04] MEDS ORDERED: ACETAMINOPHEN 1000 MG/100 ML 0 ML IV ONE (08:11)
[2017-09-04] MEDS ORDERED: FAMOTIDINE 20 MG/2 ML VIAL ONE (08:12)
[2017-09-04 08:13] LABS: AUTOMATED NEUTROPHIL # 3.6 TH/MM3 (1.8-7.7); BASOPHIL # 0.1 TH/MM3 (0-0.2); BASOPHIL % 1.2 % (0.0-2.0); EOSINOPHIL # 0.3 TH/MM3 (0-0.4); EOSINOPHIL % 3.4 % (0.0-4.0); HEMATOCRIT 30.1 % (39.0-51.0); HEMO FLAGS DIFF FINAL; LYMPH % 31.5 % (9.0-44.0); LYMPHOCYTE # 2.3 TH/MM3 (1.0-4.8); MEAN CELL VOLUME 89.3 FL (80.0-100.0); MEAN CORPUSCULAR HEMOGLOBIN 29.1 PG (27.0-34.0); MEAN CORPUSCULAR HGB CONC 32.6 % (32.0-36.0); MONO % 15.1 % (0.0-8.0); NEUT % 48.8 % (16.0-70.0); PLATELET COUNT 260 TH/MM3 (150-450); RED BLOOD COUNT 3.37 MIL/MM3 (4.50-5.90); RED CELL DISTRIBUTION WIDTH 16.9 % (11.6-17.2); WHITE BLOOD COUNT 7.4 TH/MM3 (4.0-11.0)
--- NOTE | 2017-09-04 08:15 | RADRPT ---
EXAM DATE/TIME: 09/04/2017 07:41 [facility] COMPARISON: CHEST SINGLE AP, May 08, 2017, 8:02. INDICATIONS : Evaluate for pneumonia, pneumothorax, or communicable disease. Pre-op right AV fistula. MEDICAL HISTORY : Arthritis. Diabetes mellitus type II. Renal failure, chronic. GERD. Chronic UTI, Urethral strict ure. SURGICAL HISTORY : Subclavian stent, Heart stent, Prostate surgery. ENCOUNTER: Initial ACUITY: 1 day PAIN SCORE: 0/10 LOCATION: Bilateral chest FINDINGS: A single view of the chest demonstrates the lungs to be symmetrically aerated without evidence of mas s, infiltrate or effusion. The cardiomediastinal contours are unremarkable. Osseous structures are intact. A left-sided dialysis catheter. A vascular stent overlies the right subclavian region. CONCLUSION: No acute disease. Clinton Melendez Jr., MD on September 04, 2017 at 8:02 Board Certified Radiologist. This report was verified electronically.
[2017-09-04] MEDS ORDERED: PROTAMINE SULFATE 50 MG/5 ML VIAL ONE (08:19)
[2017-09-04] MEDS ORDERED: BUPIVACAINE HCL PF 0.5% 30 ML VIAL ONE (08:19)
[2017-09-04] MEDS ORDERED: HEPARIN SODIUM - IV 10,000 UNITS/10 ML VIAL ONE (08:19)
[2017-09-04] MEDS ORDERED: HEPARIN-NS/PF INJ 1,000 ML ONE (08:20)
[2017-09-04] MEDS ORDERED: THROMBIN (TOPICAL) 20,000 UNIT SPRAY KIT ONE (08:20)
[2017-09-04 08:26] LABS: PROTHROMBIN TIME - PATIENT 11.4 SEC (9.8-11.6)
[2017-09-04 08:29] LABS: BICARBONATE 25.2 MEQ/L (21.0-32.0); POTASSIUM 3.6 MEQ/L (3.5-5.1)
--- NOTE | 2017-09-04 08:42 | HHI.HP ---
History of Present Illness Chief Complaint: Swollen R arm, central vein occlusion History of Present Illness 72 yo male with ESRD and R UE AVF, previously had R SCV stent placed that is occluded. AVF looks good but arm markedly edematous. No hand pain. Getting HD via catheter. Past/Family/Social History Past Medical History ESRD HTN DM Past Surgical History R UE AVf SP catheter Social History nonsmoker Family History NC Home Medications Active Scripts Insulin Lispro (Human) Inj (Humalog Inj) 1,000 Unit/10 Ml Vial, 1-9 UNITS SQ ACHS for Blood Sugar Management, #1 VIAL 0 Refills sugars< 70,(0)units; sugars 150-199,(1)unit; sugars 200-249,(3)units; sugars 250-299,(5)units; sugars 300-349,(7)units; sugars more than 349,(9)units. Prov:Mirna Barron MD 04/18/17 Glucocom Test Strips (Glucocom Test Strips) 1 Deb Deb, 1 EA .ROUTE DIRECTED for Blood Sugar Management, #1 BOX Prov:Mirna Barron MD 04/18/17 Lancets (Lancets) 1 Mis Mis, 1 EA .ROUTE DIRECTED for Blood Sugar Management , #1 BOX 0 Refills Prov:Mirna Barron MD 04/18/17 Insulin Syringe/U-100/31G X 5/16" 1 ml (Insulin Syringe/U-100/31G X 5/16" 1 ml) 1 Mis Mis, 1 EA .ROUTE DIRECTED for Blood Sugar Management, #1 BOX 0 Refills Prov:Mirna Barron MD 04/18/17 Blood Glucose Monitoring W/Device (Glucocom Blood Glucose Mo W/Device) 1 Kit Kit , 1 KIT .ROUTE DIRECTED for Blood Sugar Management, #1 KIT Prov:Mirna Barron MD 04/18/17 Reported Medications Aspirin (Aspirin) 81 Mg Chew, 81 MG CHEW DAILY, TAB 0 Refills 09/04/17 Sevelamer Carbonate (Renvela) 800 Mg Tab, 800 MG PO TID for Control phosphorous levels, #90 TAB 0 Refills 08/12/17 Cinacalcet (Sensipar) 30 Mg Tab, 30 MG PO DAILY, #30 TAB 0 Refills 08/12/17 Insulin Glargine Inj (Lantus Inj) 1,000 Unit/10 Ml Vial, 10 UNITS SQ HS for Blood Sugar Management, VIAL 0 Refills 07/15/17 Pantoprazole (Pantoprazole) 40 Mg Tab, 40 MG PO DAILY for Reflux, #30 TAB 0 Refills 11/05/16 B-Complex W/ C & Folic Acid (Renal Vitamin) 1 Cap, 1 CAP PO DAILY for Nutritional Supplement, #30 CAP 0 Refills If on dialysis, take after treatment. 11/05/16 Calcium Acetate (Phosphate Binder) (Calcium Acetate (Phosphate Binder)) 667 Mg Tab, 667 MG PO TID for Hyperphosphatemia, #90 TAB 0 Refills 11/05/16 Furosemide (Furosemide) 40 Mg Tab, 40 MG PO sututhsa, #30 TAB 0 Refills 11/05/16 Coded Allergies: No Known Allergies (Verified Allergy, Unknown, 09/04/17) Review of Systems Respiratory: DENIES: Shortness of breath Cardiovascular: DENIES: Chest pain Physical Exam Vitals/I&O Date Time Temp Pulse Resp B/P (MAP) Pulse Ox O2 Delivery O2 Flow Rate FiO2 09/04/17 07:28 97.6 79 18 113/67 (82) 98 Neuro: awake, alert, VAN HEENT: NC/AT Neck: no JVD Heart: reg rate Lungs: clear B Abdomen: NT Vascular: R UE with palpable thrill Extremities: marked R UE edema Laboratory Tests Test 09/04/17 08:00 White Blood Count 7.4 Red Blood Count 3.37 Hemoglobin 9.8 Hematocrit 30.1 Mean Corpuscular Volume 89.3 Mean Corpuscular Hemoglobin 29.1 Mean Corpuscular Hemoglobin Concent 32.6 Red Cell Distribution Width 16.9 Platelet Count 260 Mean Platelet Volume 7.4 Neutrophils (%) (Auto) 48.8 Lymphocytes (%) (Auto) 31.5 Monocytes (%) (Auto) 15.1 Eosinophils (%) (Auto) 3.4 Basophils (%) (Auto) 1.2 Neutrophils # (Auto) 3.6 Lymphocytes # (Auto) 2.3 Monocytes # (Auto) 1.1 Eosinophils # (Auto) 0.3 Basophils # (Auto) 0.1 CBC Comment DIFF FINAL Differential Comment Prothrombin Time 11.4 Prothromb Time International Ratio 1.0 Blood Urea Nitrogen 42 Creatinine 8.85 Random Glucose 69 Calcium Level 9.1 Sodium Level 134 Potassium Level 3.6 Chloride Level 98 Carbon Dioxide Level 25.2 Anion Gap 11 Estimat Glomerular Filtration Rate 7 Last 48 hours Impressions Chest X-Ray 09/04/17 0706 Signed Impressions: Service Date/Time: August 07:41 - CONCLUSION: No acute disease. MD Anjelica Srinivasan Jr. VTE Risk Assessment Caprinasher VTE Risk Assessment: Mod/High Risk (score >= 2) Caprini Risk Assessment Model Point Value = 1 Point Value = 2 Point Value = 3 Point Value = 5 Age 41-60 Minor surgery BMI > 25 kg/m2 Swollen legs Varicose veins or History of unexplained or recurrent spontaneous Oral contraceptives or hormone replacement Sepsis (< 1 month) Serious lung disease, including pneumonia (< 1 month) Abnormal pulmonary function Acute myocardial infarction Congestive heart failure (< 1 month) History of inflammatory bowel disease Medical patient at bed rest Age 61-74 Arthroscopic surgery Major open surgery (> 45 min) Laparoscopic surgery (> 45 min) Malignancy Confined to bed (> 72 hours) Immobilizing plaster cast Central venous access Age >= 75 History of VTE Family history of VTE Factor V Leiden Prothrombin [id number] Lupus anticoagulant Anticardiolipin antibodies Elevated serum homocysteine Heparin-induced thrombocytopenia Other congenital or acquired thrombophilia Stroke (< 1 month) Elective arthroplasty Hip, pelvis, or leg fracture Acute spinal cord injury (< 1 month) Prophylaxis Regimen Total Risk Factor Score Risk Level Prophylaxis Regimen 0-1 Low Early ambulation 2 Moderate Order ONE of the following: *Sequential Compression Device (SCD) *Heparin 5000 units SQ BID 3-4 Higher Order ONE of the following medications: *Heparin 5000 units SQ TID *Enoxaparin/Lovenox 40 mg SQ daily (WT < 150 kg, CrCl > 30 mL/min) *Enoxaparin/Lovenox 30 mg SQ daily (WT < 150 kg, CrCl > 10-29 mL/min) *Enoxaparin/Lovenox 30 mg SQ BID (WT < 150 kg, CrCl > 30 mL/min) AND/OR *Sequential Compression Device (SCD) 5 or more Highest Order ONE of the following medications: *Heparin 5000 units SQ TID (Preferred with Epidurals) *Enoxaparin/Lovenox 40 mg SQ daily (WT < 150 kg, CrCl > 30 mL/min) *Enoxaparin/Lovenox 30 mg SQ daily (WT < 150 kg, CrCl > 10-29 mL/min) *Enoxaparin/Lovenox 30 mg SQ BID (WT < 150 kg, CrCl > 30 mL/min) AND *Sequential Compression Device (SCD) Assessment and Plan Plan R chest/neck central vein bypass and maybe HeRO catheter placement discussed procedure with patient and family. Operative site marked. To OR. Discharge Planning 2-3 days [phone] Breezy Umana MD Sep 04, 2017 08:42
[2017-09-04] MEDS ORDERED: MAGNESIUM HYDROXIDE SUSP 30 ML CUP PO PRN (08:45)
[2017-09-04] MEDS ORDERED: Hemodialysis Vas Acc Cath PRN Heparin 1000 unit/ml Flush IV FLUSH (08:45)
[2017-09-04] MEDS ORDERED: SENNOSIDES 8.6 MG TAB PO PRN (08:45)
[2017-09-04] MEDS ORDERED: BISACODYL 10 MG SUPP RECTAL PRN (08:45)
[2017-09-04] MEDS ORDERED: MORPHINE SULFATE 4 MG/ML INJ IV PUSH PRN (08:45)
[2017-09-04] MEDS ORDERED: HEPARIN SODIUM - SQ 10,000 UNITS/ML VIAL SQ SCH (08:45)
[2017-09-04] MEDS ORDERED: LACTULOSE SYRUP 20 GM/30 ML CUP PO PRN (08:45)
[2017-09-04] MEDS ORDERED: HYDROmorphone HCL 2 MG TAB PO PRN (08:45)
[2017-09-04] MEDS ORDERED: Hemodialysis Vas Access Cath PRN NS Lock Flush IV FLUSH (08:45)
[2017-09-04] MEDS ORDERED: VANCOMYCIN HCL 1000 MG VIAL ONE (08:55)
[2017-09-04] MEDS ORDERED: DOCUSATE SODIUM 50 MG/SENNA 8.6 MG TAB PO SCH (09:00)
[2017-09-04] MEDS ORDERED: GLUCAGON 1 MG/ML VIAL OTHER PRN (09:00)
[2017-09-04] MEDS ORDERED: DEXTROSE 50% IN WATER 50 ML VIAL(D50) IV PUSH PRN (09:00)
[2017-09-04] MEDS ORDERED: ASPIRIN 81 MG CHEW TAB CHEW SCH (09:00)
[2017-09-04] MEDS ORDERED: IOHEXOL IV ONE (09:50)
--- NOTE | 2017-09-04 10:06 | HHI.PR ---
Immediate Post Op Note Procedure Date: Sep 04, 2017 Pre Op Diagnosis: Occluded R subclavian vein, Post Op Diagnosis: occluded R SCV and IJ Surgeon: Breezy Umana Regional Director Of Finance(s): none Procedure: U/S guided R IJ venogram Findings: occluded central IJ, unable to catheterize Additional Information: will discuss with nephrology re: next steps Complications: none Specimen(s) removed: none Estimated blood loss: 15mL Anesthesia: General Drains: None Fluids: 750mL IVF Patient to: PACU Date/Time of Procedure: SEE SURGICAL CARE RECORD Breezy Umana MD Sep 04, 2017 10:06
[2017-09-04] MEDS ORDERED: DO NOT ADM ANY ANTICOAGULANT DRUGS PRN (10:11)
[2017-09-04] MEDS ORDERED: PANTOPRAZOLE SOD 40 MG DELAYED RELEASE TAB PO SCH (11:00)
[2017-09-04] MEDS ORDERED: SEVELAMER CARBONATE 800 MG TAB PO SCH (11:00)
[2017-09-04] MEDS ORDERED: FUROSEMIDE 40 MG TAB PO SCH (11:00)
[2017-09-04] MEDS ORDERED: VITAMIN B CMPLX/VITC/FOLIC AC CAP PO SCH (11:00)
[2017-09-04] MEDS ORDERED: CINACALCET HYDROCHLORIDE 30 MG TAB PO SCH (11:00)
[2017-09-04] MEDS ORDERED: CALCIUM ACETATE 667 MG CAP PO SCH (11:00)
[2017-09-04] MEDS ORDERED: INSULIN ASPART SUPPLEMENTAL SCALE SQ SCH (12:00)
[2017-09-04] MEDS ORDERED: SODIUM CHLORID 0.9% 500 ML INJ 500 ML IV ONE (12:00)
[2017-09-04] MEDS ORDERED: SUCCINYLCHOLINE CHLORIDE 100 MG/5 ML SYRINGE IV PUSH ONE (12:00)
[2017-09-04] MEDS ORDERED: ROCURONIUM INJ 50 MG/5 ML SYRINGE IV PUSH ONE (12:00)
[2017-09-04] MEDS ORDERED: LIDOCAINE HCL 1% PF 5 ML SYRINGE OTHER ONE (12:00)
[2017-09-04] MEDS ORDERED: SODIUM CHLOR 0.9% 250 ML INJ 250 ML IV ONE (12:00)
[2017-09-04] MEDS ORDERED: IOHEXOL 300 MG/ML 50 ML BTL (for RAD DIAG) IVCONTRAST ONE (12:00)
[2017-09-04] MEDS ORDERED: PROPOFOL 200 MG/20 ML AMP IV ONE (12:00)
[2017-09-04] MEDS ORDERED: NEOSTIGMINE 3 MG/3 ML SYR IV ONE (12:00)
[2017-09-04] MEDS ORDERED: PHENYLEPH/NS 1000 MCG/10 ML SYR IV ONE (12:00)
[2017-09-04] MEDS ORDERED: GLYCOPYRROLATE 1 MG/5 ML SYRINGE IV PUSH ONE (12:00)
[2017-09-04] MEDS ORDERED: PHENYLEPHRINE HCL 10 MG/ML VIAL IV ONE (12:00)
[2017-09-04 12:42] VITALS: BP 105/64; PULSE 63; RESP 18; TEMP 98.2; O2SAT 100
--- NOTE | 2017-09-04 22:45 | MP ---
cc: BREEZY UMANA DATE OF SURGERY 09/04/17 PREOPERATIVE DIAGNOSIS Central vein occlusion, swollen right upper extremity with patent arteriovenous fistula. POSTOPERATIVE DIAGNOSIS Central vein occlusion, swollen right upper extremity with patent arteriovenous fistula. Internal jugular occlusion. PROCEDURE 1. Ultrasound-guided access to the right internal jugular vein. 2. Internal jugular venogram. MEDICATIONS Breezy Umana MD. ANESTHESIA General. INDICATION Mr. Laguerre is a 72-year-old gentleman has end-stage renal disease and a right upper extremity access. He has a subclavian vein occlusion with a stent in it. It was unable to be traversed endovascularly. He was taken to the operating room for a central vein bypass but intraoperatively it was found that his outflow of his internal jugular vein was occluded, thereby the central vein bypass was aborted. DESCRIPTION OF PROCEDURE Informed consent was obtained from the patient. He was taken to the operating room and placed supine on the operating room table. An appropriate time-out was taken to ensure the patient's identity, operative site and planned procedure. The administration of a gram of vancomycin was initiated prior to skin incision, will be discontinued after single preoperative dose. Vancomycin was chosen because of the patient's end-stage renal disease. His right arm, neck and chest were prepped and draped and with the patient in Trendelenburg position using ultrasound guidance right internal jugular vein was accessed with a 21 gauge micropuncture needle, this was exchanged using Seldinger technique for micropuncture sheath through which a 0.05 Glidewire was introduced. The micropuncture sheath was exchanged for a 5-Iranian sheath. Multiple attempts were made to recanalize the internal jugular vein after performing a venogram but these were unsuccessful. Wire, catheter and sheath removed and pressure was held for hemostasis. INTERPRETATION IMAGES Internal jugular vein is patent only for a short segment but then occludes, via collaterals it fills the external jugular vein which is dominant drainage of the neck. Breezy Umana MD RJF/EO /4:38 PM /10:18 PM [facility] SYSTEMJohn
== END 2017-09-04 10:07 | disposition home or self-care (01) ==
LOC: HSDI 06:45 → UNDOADMIN 06:45 → HSDC 06:45 → EDSTATUS 08:00 → HSDC 10:07
PROVIDERS: ATTEND Surgery
DX: I82.C11 Acute embolism and thrombosis of right internal jugular vein (principal); I82.B11 Acute embolism and thrombosis of right subclavian vein; I12.0 Hypertensive chronic kidney disease with stage 5 chronic kidney disease or end stage renal disease; E11.22 Type 2 diabetes mellitus with diabetic chronic kidney disease; N18.6 End stage renal disease; M79.89 Other specified soft tissue disorders; Z99.2 Dependence on renal dialysis
CPT/HCPCS: 01916; 36000; 71010; 75860; 76942; 80048; 85025; 85610; 86850; 86900; 86901; C1769; J0330; J1644; J2370; J2710; J2720; J3010; J3370; J7040; J7050; Q9967; J0131

== ENCOUNTER 2017-09-23 07:03 | Observation (INO) | payer OTHER, MEDICAID ==
[~2017-09-23] VITALS: Ht 175.3 cm; Wt 130.5 kg
[2017-09-23] VITALS (10 sets, daily range): BP systolic 93–100; BP diastolic 55–60; PULSE 67–94; RESP 16–19; TEMP 97.4–97.5; O2SAT 96–98
[~2017-09-23 07:03] MED LIST changes: +ASPI-516 CHEW; +BUPIVACAINE HCL PF 0.5% 30 ML VIAL ONE; +HEPARIN SODIUM - IV 10,000 UNITS/10 ML VIAL ONE; +HEPARIN-NS/PF INJ 500 ML ONE; +PROTAMINE SULFATE 50 MG/5 ML VIAL ONE; +SODIUM CHLOR 0.9% 250 ML INJ 250 ML ONE; +THROMBIN (TOPICAL) 20,000 UNIT SPRAY KIT ONE; +VANCOMYCIN HCL 1000 MG VIAL ONE
[2017-09-23] MEDS ORDERED: LACTATED RINGER'S 1000 ML IV PRN (07:30)
[2017-09-23] MEDS ORDERED: SODIUM CHLORID 0.9% 500 ML IV PRN (07:30)
[2017-09-23] MEDS ORDERED: METOPROLOL TARTRATE 25 MG TAB PO PRN (07:30)
[2017-09-23] MEDS ORDERED: POVIDONE IODINE 5% (ANTISEPSIS KIT) 4 APPLICATIONS EACH NARE PRN (07:30)
[2017-09-23] MEDS ORDERED: INSULIN HUMAN REGULAR 1,000 UNITS/10 ML VIAL SQ PRN (07:30)
[2017-09-23] MEDS ORDERED: CHLORHEXIDINE GLUCONATE 2 % 1 PACK (2 CLOTHS) TOPICAL PRN (07:30)
--- NOTE | 2017-09-23 07:48 | HHI.HP ---
History of Present Illness Chief Complaint: R central vein occlusion, ESRD History of Present Illness 72 yo male with ESRD on HD MWF via R chest catheter. 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 Presents for HeRO catheter Past/Family/Social History Past Medical History ESRD DM HTN Past Surgical History R UE AVF with revisions Social History nonsmoker Family History NC Home Medications Active Scripts Insulin Lispro (Human) Inj (Humalog Inj) 1,000 Unit/10 Ml Vial, 1-9 UNITS SQ ACHS for Blood Sugar Management, #1 VIAL 0 Refills sugars< 70,(0)units; sugars 150-199,(1)unit; sugars 200-249,(3)units; sugars 250-299,(5)units; sugars 300-349,(7)units; sugars more than 349,(9)units. Prov:Mirna Barron MD 04/18/17 Reported Medications Aspirin (Aspirin) 81 Mg Chew, 81 MG CHEW DAILY, TAB 0 Refills 09/04/17 Sevelamer Carbonate (Renvela) 800 Mg Tab, 800 MG PO TID for Control phosphorous levels, #90 TAB 0 Refills 08/12/17 Cinacalcet (Sensipar) 30 Mg Tab, 30 MG PO DAILY, #30 TAB 0 Refills 08/12/17 Insulin Glargine Inj (Lantus Inj) 1,000 Unit/10 Ml Vial, 10 UNITS SQ HS for Blood Sugar Management, VIAL 0 Refills 07/15/17 Pantoprazole (Pantoprazole) 40 Mg Tab, 40 MG PO DAILY for Reflux, #30 TAB 0 Refills 11/05/16 B-Complex W/ C & Folic Acid (Renal Vitamin) 1 Cap, 1 CAP PO DAILY for Nutritional Supplement, #30 CAP 0 Refills If on dialysis, take after treatment. 11/05/16 Calcium Acetate (Phosphate Binder) (Calcium Acetate (Phosphate Binder)) 667 Mg Tab, 667 MG PO TID for Hyperphosphatemia, #90 TAB 0 Refills 11/05/16 Furosemide (Furosemide) 40 Mg Tab, 40 MG PO sututhsa, #30 TAB 0 Refills 11/05/16 Discontinued Scripts Glucocom Test Strips (Glucocom Test Strips) 1 Deb Deb, 1 EA .ROUTE DIRECTED for Blood Sugar Management, #1 BOX Prov:Mirna Barron MD 04/18/17 Lancets (Lancets) 1 Mis Mis, 1 EA .ROUTE DIRECTED for Blood Sugar Management , #1 BOX 0 Refills Prov:Mirna Barron MD 04/18/17 Insulin Syringe/U-100/31G X 5/16" 1 ml (Insulin Syringe/U-100/31G X 5/16" 1 ml) 1 Mis Mis, 1 EA .ROUTE DIRECTED for Blood Sugar Management, #1 BOX 0 Refills Prov:Mirna Barron MD 04/18/17 Blood Glucose Monitoring W/Device (Glucocom Blood Glucose Mo W/Device) 1 Kit Kit , 1 KIT .ROUTE DIRECTED for Blood Sugar Management, #1 KIT Prov:Mirna Barron MD 04/18/17 Coded Allergies: No Known Allergies (Verified Allergy, Unknown, 09/22/17) Review of Systems Constitutional: COMPLAINS OF: Fatigue, DENIES: Fever, Chills Cardiovascular: DENIES: Chest pain, Claudication Physical Exam Neuro: alert, oriented, VAN HEENT: NC/AT Neck: no JVD Heart: reg rate, no M Lungs: clear B Abdomen: NT Vascular: R UE markedly swollen pending Caprini VTE Risk Assessment Caprini VTE Risk Assessment: Mod/High Risk (score >= 2) Caprini Risk Assessment Model Point Value = 1 Point Value = 2 Point Value = 3 Point Value = 5 Age 41-60 Minor surgery BMI > 25 kg/m2 Swollen legs Varicose veins or History of unexplained or recurrent spontaneous Oral contraceptives or hormone replacement Sepsis (< 1 month) Serious lung disease, including pneumonia (< 1 month) Abnormal pulmonary function Acute myocardial infarction Congestive heart failure (< 1 month) History of inflammatory bowel disease Medical patient at bed rest Age 61-74 Arthroscopic surgery Major open surgery (> 45 min) Laparoscopic surgery (> 45 min) Malignancy Confined to bed (> 72 hours) Immobilizing plaster cast Central venous access Age >= 75 History of VTE Family history of VTE Factor V Leiden Prothrombin [id number] Lupus anticoagulant Anticardiolipin antibodies Elevated serum homocysteine Heparin-induced thrombocytopenia Other congenital or acquired thrombophilia Stroke (< 1 month) Elective arthroplasty Hip, pelvis, or leg fracture Acute spinal cord injury (< 1 month) Prophylaxis Regimen Total Risk Factor Score Risk Level Prophylaxis Regimen 0-1 Low Early ambulation 2 Moderate Order ONE of the following: *Sequential Compression Device (SCD) *Heparin 5000 units SQ BID 3-4 Higher Order ONE of the following medications: *Heparin 5000 units SQ TID *Enoxaparin/Lovenox 40 mg SQ daily (WT < 150 kg, CrCl > 30 mL/min) *Enoxaparin/Lovenox 30 mg SQ daily (WT < 150 kg, CrCl > 10-29 mL/min) *Enoxaparin/Lovenox 30 mg SQ BID (WT < 150 kg, CrCl > 30 mL/min) AND/OR *Sequential Compression Device (SCD) 5 or more Highest Order ONE of the following medications: *Heparin 5000 units SQ TID (Preferred with Epidurals) *Enoxaparin/Lovenox 40 mg SQ daily (WT < 150 kg, CrCl > 30 mL/min) *Enoxaparin/Lovenox 30 mg SQ daily (WT < 150 kg, CrCl > 10-29 mL/min) *Enoxaparin/Lovenox 30 mg SQ BID (WT < 150 kg, CrCl > 30 mL/min) AND *Sequential Compression Device (SCD) Assessment and Plan Plan plan for R UE HeRO graft through exising R neck catheter. Discussed plan with patient and his family who agree. Operative site marked. to OR. Discharge Planning Likely tomorrow (POD#1) after HD [phone] Breeyz Umana MD Sep 23, 2017 07:48
[2017-09-23 08:09] LABS: HEMATOCRIT 31.6 % (39.0-51.0); MEAN CELL VOLUME 88.1 FL (80.0-100.0); MEAN CORPUSCULAR HEMOGLOBIN 29.5 PG (27.0-34.0); MEAN CORPUSCULAR HGB CONC 33.5 % (32.0-36.0); PLATELET COUNT 234 TH/MM3 (150-450); RED BLOOD COUNT 3.58 MIL/MM3 (4.50-5.90); RED CELL DISTRIBUTION WIDTH 17.3 % (11.6-17.2)
[2017-09-23 08:15] LABS: HEMO FLAGS AUTO DIFF
[2017-09-23 08:41] LABS: BANDS 3 % (0-6); BASOPHILS 1 % (0-2); EOSINOPHILS 8 % (0-4); POLYS (SEG NEUTROPHILS) 36 % (16-70); WBC DIFF SAMPLE 100
[2017-09-23 08:42] LABS: PLATELET ESTIMATE SMEAR NORMAL (NORMAL); PLATELET MORPHOLOGY NORMAL (NORMAL)
[2017-09-23 08:43] LABS: SCAN/DIFF FINAL DIFF MANUAL
[2017-09-23 08:57] LABS: INTERNATIONAL NORMALIZED RATIO 1.1 RATIO
[2017-09-23 09:05] LABS: BICARBONATE 26.3 MEQ/L (21.0-32.0)
[2017-09-23] MEDS ORDERED: VANCOMYCIN HCL 1000 MG VIAL ONE (09:58)
--- NOTE | 2017-09-23 10:36 | HHI.PR ---
cc: Breezy Umana MD Immediate Post Op Note Procedure Date: Sep 23, 2017 Pre Op Diagnosis: ESRD, central vein occlusion Post Op Diagnosis: ESRD, central vein occlusion Surgeon: Breezy Umana Rn Radiation Oncology(s): Temi Mcqueen MD Procedure: 1. Removal of central catheter 2. HeRO graft (access revision and placement of central vein catheter) Findings: successful HeRO with + thrill in AVF Complications: none Specimen(s) removed: none Estimated blood loss: 150mL Anesthesia: General Drains: None Fluids: 750mL IVF Patient to: PACU Patient Condition: Good Implant/Devices: SEE IMPLANT LOG (if applicable) Date/Time of Procedure: SEE SURGICAL CARE RECORD Breezy Umana MD Sep 23, 2017 10:36
[2017-09-23] MEDS ORDERED: SENNOSIDES 8.6 MG TAB PO PRN (10:45)
[2017-09-23] MEDS ORDERED: BISACODYL 10 MG SUPP RECTAL PRN (10:45)
[2017-09-23] MEDS ORDERED: HYDROmorphone HCL 2 MG TAB PO PRN (10:45)
[2017-09-23] MEDS ORDERED: DEXTROSE 50% IN WATER 50 ML VIAL(D50) IV PUSH PRN (10:45)
[2017-09-23] MEDS ORDERED: GLUCAGON 1 MG/ML VIAL OTHER PRN (10:45)
[2017-09-23] MEDS ORDERED: LACTULOSE SYRUP 20 GM/30 ML CUP PO PRN (10:45)
[2017-09-23] MEDS ORDERED: DO NOT ADM ANY ANTICOAGULANT DRUGS PRN (11:08)
[2017-09-23] MEDS: INSULIN ASPART SUPPLEMENTAL SCALE SQ SCH ×3 (11:10→21:00)
[2017-09-23] MEDS ORDERED: SODIUM CHLOR 0.9% 1000 ML INJ 1,000 ML IV PRN (11:26)
[2017-09-23] MEDS ORDERED: SODIUM CHLOR 0.9% 1000 ML INJ 1,000 ML OTHER PRN ×2 (11:26)
[2017-09-23] MEDS ORDERED: GELATIN 12 MM/7 MM FOAM TOP PRN (11:30)
[2017-09-23] MEDS ORDERED: NITROGLYCERIN 0.4 MG SL 25 TABS/BTL SL PRN (11:30)
[2017-09-23] MEDS ORDERED: GENTAMICIN SULFATE (DIALYSIS USE ONLY) 20 MG/2 ML VIAL OTHER PRN (11:30)
[2017-09-23] MEDS ORDERED: diphenhydrAMINE HCL 25 MG CAP PO PRN (11:30)
[2017-09-23] MEDS ORDERED: HEPARIN SODIUM - IV 10,000 UNITS/10 ML VIAL PRN (11:30)
[2017-09-23] MEDS ORDERED: ACETAMINOPHEN 325 MG TAB PO PRN (11:30)
[2017-09-23] MEDS ORDERED: ALBUMIN 25% INJ 100 ML IV PRN (11:30)
[2017-09-23] MEDS ORDERED: cloNIDine HCL 0.1 MG TAB PO PRN (11:30)
[2017-09-23] MEDS ORDERED: HEPARIN SODIUM - IV 10,000 UNITS/10 ML VIAL IV FLUSH PRN (11:30)
[2017-09-23] MEDS ORDERED: EPOETIN ALFA 10,000 UNITS/ML VIAL IV PUSH PRN (11:30)
[2017-09-23] MEDS ORDERED: ONDANSETRON HCL 4 MG/2 ML VIAL IV PUSH PRN (11:30)
[2017-09-23] MEDS ORDERED: MANNITOL 12.5 GM/50 ML VIAL IV PRN (11:30)
[2017-09-23] MEDS ORDERED: SODIUM CHLORIDE 0.9% FLUSH 10 ML FLUSH IV FLUSH PRN (11:30)
--- NOTE | 2017-09-23 11:39 | RADRPT ---
EXAM DATE/TIME: 09/23/2017 11:20 [facility] COMPARISON: No previous studies available for comparison. INDICATIONS : Status post Hero sybil for dialysis. MEDICAL HISTORY : Renal failure, chronic SURGICAL HISTORY : None. ENCOUNTER: Initial ACUITY: 1 day PAIN SCORE: 0/10 LOCATION: Bilateral chest FINDINGS: A single view of the chest demonstrates the lungs to be symmetrically aerated without evidence of mas s, infiltrate or effusion. There are bilateral dual-lumen catheter is in good position. The cardiomed iastinal contours are unremarkable. Osseous structures are intact. CONCLUSION: Catheter is in good position. Lungs are grossly clear.. Rylan Rod MD on September 23, 2017 at 11:36 Board Certified Radiologist. This report was verified electronically.
[2017-09-23] MEDS ORDERED: IOHEXOL 300 MG/ML 50 ML BTL (for RAD DIAG) IVCONTRAST ONE (12:00)
[2017-09-23] MEDS ORDERED: ePHEDrine/NS 25 MG/5 ML SYRINGE IV ONE (12:00)
[2017-09-23] MEDS ORDERED: SODIUM CHLOR 0.9% 250 ML INJ 250 ML IV ONE (12:00)
[2017-09-23] MEDS ORDERED: PROPOFOL 200 MG/20 ML AMP IV ONE (12:00)
[2017-09-23] MEDS ORDERED: PHENYLEPHRINE HCL 10 MG/ML VIAL IV ONE (12:00)
[2017-09-23] MEDS ORDERED: ROCURONIUM INJ 50 MG/5 ML SYRINGE IV PUSH ONE (12:00)
[2017-09-23] MEDS ORDERED: GLYCOPYRROLATE 1 MG/5 ML SYRINGE IV PUSH ONE (12:00)
[2017-09-23] MEDS ORDERED: LIDOCAINE HCL 1% PF 5 ML SYRINGE OTHER ONE (12:00)
[2017-09-23] MEDS ORDERED: FUROSEMIDE 40 MG TAB PO SCH (12:00)
[2017-09-23] MEDS ORDERED: NEOSTIGMINE 5 MG/5 ML SYRINGE IV PUSH ONE (12:00)
[2017-09-23] MEDS ORDERED: ONDANSETRON HCL 4 MG/2 ML VIAL IV PUSH ONE (12:00)
[2017-09-23] MEDS ORDERED: MORPHINE SULFATE 2 MG/ML INJ IV PUSH PRN (12:15)
[2017-09-23] MEDS ORDERED: CALCIUM ACETATE 667 MG CAP PO SCH (13:00)
[2017-09-23] MEDS ORDERED: SEVELAMER CARBONATE 800 MG TAB PO SCH (13:00)
[2017-09-23 14:58] LABS: BLASTS 0 % (0-0)
--- NOTE | 2017-09-23 17:18 | PD.CONS ---
HPI Service Nephrology Consult Requested By Dr. Umana Reason for Consult ESRD on HD Primary Care Physician Edinson Smith MD History of Present Illness This is a 72 y/o AAM admitted for same day surgery for Removal of central catheter and HeRO graft placement (access revision and placement of CVC). He has a hx of ESRD, is on HD MWF, had full treatment Friday. We were consulted for dialysis management as his processing specialist, Dr. Bang, does not have privileges at this facility. Other PMH of obesity, metabolic bone disorder, BPH , and anemia. He is seen in PACU after procedure, is awake and not in distress. No complications reported, he has small incision in right upper chest. He is a full code. 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 Prov:Mirna Barron MD 04/18/17 Reported Medications Aspirin (Aspirin) 81 Mg Chew, 81 MG CHEW DAILY, TAB 0 Refills 09/04/17 Sevelamer Carbonate (Renvela) 800 Mg Tab, 800 MG PO TID for Control phosphorous levels, #90 TAB 0 Refills 08/12/17 Cinacalcet (Sensipar) 30 Mg Tab, 30 MG PO DAILY, #30 TAB 0 Refills 08/12/17 Insulin Glargine Inj (Lantus Inj) 1,000 Unit/10 Ml Vial, 10 UNITS SQ HS for Blood Sugar Management, VIAL 0 Refills 07/15/17 Pantoprazole (Pantoprazole) 40 Mg Tab, 40 MG PO DAILY for Reflux, #30 TAB 0 Refills 11/05/16 B-Complex W/ C & Folic Acid (Renal Vitamin) 1 Cap, 1 CAP PO DAILY for Nutritional Supplement, #30 CAP 0 Refills If on dialysis, take after treatment. 11/05/16 Calcium Acetate (Phosphate Binder) (Calcium Acetate (Phosphate Binder)) 667 Mg Tab, 667 MG PO TID for Hyperphosphatemia, #90 TAB 0 Refills 11/05/16 Furosemide (Furosemide) 40 Mg Tab, 40 MG PO sututhsa, #30 TAB 0 Refills 11/05/16 Active Ordered Medications Current Medications Medications (Trade) Dose Ordered Sig/Fabiola Route Start Time Stop Time Status Last Admin Lactated Ringer's 1,000 ml @ 30 mls/hr Q24H PRN IV 09/23/17 07:30 09/26/17 07:29 Sodium Chloride 500 ml @ 30 mls/hr [id number] PRN IV 09/23/17 07:30 09/26/17 07:29 09/23/17 07:49 (Lopressor) 25 mg PRODUCT STRATEGY DIRECTOR PRN PO 09/23/17 07:30 09/26/17 07:29 (Betadine 5% Antisepsis Kit) 1 applic PRODUCT STRATEGY DIRECTOR PRN EACH NARE 09/23/17 07:30 09/26/17 07:29 09/23/17 07:53 (Chlorhexidine 2% Cloth) 3 pack PRODUCT STRATEGY DIRECTOR PRN TOPICAL 09/23/17 07:30 09/26/17 07:29 09/23/17 07:15 (NovoLIN R INJ) See Protocol Table ... PRODUCT STRATEGY DIRECTOR PRN SQ 09/23/17 07:30 09/26/17 07:29 (Roxicodone) 5 mg Q4H PRN PO 09/23/17 10:45 (Dilaudid) 2 mg Q4H PRN PO 09/23/17 10:45 (Morphine Inj) 2 mg Q1H PRN IV PUSH 09/23/17 12:15 (Heparin Inj) 5,000 units Q8H SQ 09/24/17 10:00 (Jaida-Colace) 1 tab BID PO 09/23/17 21:00 (Senokot) 17.2 mg Q12H PRN PO 09/23/17 10:45 (Dulcolax Supp) 10 mg DAILY PRN RECTAL 09/23/17 10:45 (Lactulose Liq) 30 ml DAILY PRN PO 09/23/17 10:45 (Aspirin Chew) 81 mg DAILY CHEW 09/24/17 09:00 (Nephrocaps) 1 cap DAILY PO 09/24/17 09:00 (Phoslo) 667 mg TID PO 09/23/17 13:00 09/23/17 13:45 (Sensipar) 30 mg DAILY PO 09/24/17 09:00 (Lasix) 40 mg SuTuThSa@0900 PO 09/23/17 12:00 09/23/17 13:45 (Protonix) 40 mg DAILY PO 09/24/17 09:00 (Renvela) 800 mg TID PO 09/23/17 13:00 09/23/17 13:45 (D50w (Vial) Inj) 50 ml UNSCH PRN IV PUSH 09/23/17 10:45 (Glucagon Inj) 1 mg UNSCH PRN OTHER 09/23/17 10:45 (NovoLOG SUPPLEMENTAL SCALE) 1 ACHS SLIDING SCALE SQ 09/23/17 12:15 Sodium Chloride 1,000 ml @ 0 mls/hr Q0M PRN OTHER 09/23/17 11:26 (Heparin Inj) 8,000 units UNSCH PRN IV FLUSH 09/23/17 11:30 Sodium Chloride 1,000 ml @ 200 mls/hr Q5H PRN IV 09/23/17 11:26 Sodium Chloride 1,000 ml @ 0 mls/hr Q0M PRN OTHER 09/23/17 11:26 (Mannitol Inj) 12.5 gm UNSCH PRN IV 09/23/17 11:30 Albumin Human 100 ml @ 60 mls/hr UNSCH PRN IV 09/23/17 11:30 (NS Flush) 5 ml UNSCH PRN IV FLUSH 09/23/17 11:30 (Heparin Inj) UNSCH PRN .XX 09/23/17 11:30 (Gentamicin (Dialysis) Inj) 20 mg UNSCH PRN OTHER 09/23/17 11:30 (Zofran Inj) 4 mg UNSCH PRN IV PUSH 09/23/17 11:30 (Tylenol) 650 mg UNSCH PRN PO 09/23/17 11:30 (Benadryl) 25 mg UNSCH PRN PO 09/23/17 11:30 (Nitrostat Sl) 0.4 mg UNSCH PRN SL 09/23/17 11:30 (Catapres) 0.1 mg UNSCH PRN PO 09/23/17 11:30 (Epogen Inj) 4,000 units UNSCH PRN IV PUSH 09/23/17 11:30 (Gelfoam 12 Mm/7 Mm Top) 1 foam UNSCH PRN TOP 09/23/17 11:30 Miscellaneous Information ALL NURSING DEPARTME... UNSCH PRN .XX 09/23/17 11:08 09/24/17 11:07 Family History Non contributory Social History Non smoking He is , lives locally Ambulatory Full code Retired (Ana Hodgson) Physical Exam Vital Signs Vital Signs Date Time Temp Pulse Resp B/P (MAP) Pulse Ox O2 Delivery O2 Flow Rate FiO2 09/23/17 16:00 70 09/23/17 16:00 97.4 67 19 93/55 (68) 98 09/23/17 14:15 77 17 99/60 (73) 09/23/17 14:10 77 09/23/17 13:30 97.8 75 16 90/50 (63) 96 Room Air 09/23/17 13:00 74 15 90/51 (64) 98 09/23/17 12:15 86 16 92/55 (67) 95 09/23/17 12:00 75 12 86/58 (67) 100 09/23/17 11:45 75 12 90/50 (63) 100 09/23/17 11:30 80 13 95/53 (67) 100 09/23/17 11:15 79 10 88/51 (63) 100 Nasal Cannula 2 09/23/17 11:08 98.0 84 12 90/50 (63) 100 Nasal Cannula 3 09/23/17 07:45 98.5 95 18 83/55 (64) 100 Physical Exam Young appearing AAM lying in bed, awake/alert no neuro deficit Lungs: clear in all [place] CV: S1/S2, regular rate, no murmurs Abd: soft, non tender normal bowel sounds Ext: thick skin, chronic changes; pulses 2+ PD/DP; right arm s/p AVF creation, dressing in place, no drainage, good thrill/bruit; no extremity edema Permcath left IJ Laboratory Laboratory Tests Test 09/23/17 07:50 09/23/17 08:30 White Blood Count 5.0 Red Blood Count 3.58 Hemoglobin 10.6 Hematocrit 31.6 Mean Corpuscular Volume 88.1 Mean Corpuscular Hemoglobin 29.5 Mean Corpuscular Hemoglobin Concent 33.5 Red Cell Distribution Width 17.3 Platelet Count 234 Mean Platelet Volume 7.6 CBC Comment AUTO DIFF Differential Total Cells Counted 100 Neutrophils % (Manual) 36 Band Neutrophils % 3 Lymphocytes % 41 Monocytes % 10 Eosinophils % 8 Basophils % 1 Neutrophils # (Manual) 2.0 Differential Comment FINAL DIFF MANUAL Blastocytes 0 Platelet Estimate NORMAL Platelet Morphology Comment NORMAL Prothrombin Time 11.0 Prothromb Time International Ratio 1.1 Blood Urea Nitrogen 46 Creatinine 9.72 Random Glucose 151 Calcium Level 8.3 Sodium Level 132 Potassium Level 4.0 Chloride Level 96 Carbon Dioxide Level 26.3 Anion Gap 10 Estimat Glomerular Filtration Rate 6 (Ana Hodgson) Result Diagram: 09/23/17 0750 09/23/17 0830 Imaging Last 72 hours Impressions Chest X-Ray 09/23/17 0000 Signed Impressions: Service Date/Time: Saturday, September 23, 2017 11:20 - CONCLUSION: Catheter is in good position. Lungs are grossly clear.. Rylan Rod MD (Ana Hodgson) Assessment and Plan Problem List: (1) ESRD (end stage renal disease) on dialysis ICD Codes: N18.6 - End stage renal disease; Z99.2 - Dependence on renal dialysis Status: Chronic Plan: Resume MWF HD support, he is due tomorrow, orders have been entered Has Permcath left chest for HD use Repeat renal panel in AM Stop IVF that is infusing Avoid nephrotoxic agents, renally dose when appropriate vascular following for access issues, s/p HeRO graft placement and catheter exchange Historically has high phosphorus levels, start Renvela 2400 mg with meals (2) Anemia ICD Codes: D64.9 - Anemia, unspecified Status: Acute Plan: Low dose Epogen has been ordered (3) DM (diabetes mellitus) type II controlled with renal manifestation ICD Codes: E11.29 - Type 2 diabetes mellitus with other diabetic kidney complication Status: Acute Plan: Use insulin as needed, maintain glucose 140-180 mg/dL. (Ana Hodgson) Assessment and Plan patient was seen and examined. Above note reviewed, agree with assessment and plan. He can be discharged after dialysis tomorrow. (Roberth He MD) Ana Hodgson Sep 23, 2017 17:18 Roberth He MD Sep 23, 2017 19:37
[2017-09-23] MEDS: SEVELAMER CARBONATE 800 MG TAB PO SCH (18:29)
[2017-09-23] MEDS ORDERED: DOCUSATE SODIUM 50 MG/SENNA 8.6 MG TAB PO SCH (21:00)
[2017-09-23] MEDS ORDERED: FAMOTIDINE 20 MG TAB PO SCH (21:00)
[2017-09-24] VITALS (11 sets, daily range): BP systolic 98–102; BP diastolic 57–58; PULSE 77–98; RESP 16–18; TEMP 97.6–98; O2SAT 97–98
[2017-09-24 06:36] LABS: POTASSIUM 5.6 MEQ/L (3.5-5.1)
--- NOTE | 2017-09-24 06:50 | PD.VS.PN ---
Subjective POD #: 1 Procedure(s): HeRO graft R UE Subjective/Hospital Course Pt feels great - pain controlled narciso po Objective Vitals/I&O Date Time Temp Pulse Resp B/P (MAP) Pulse Ox O2 Delivery O2 Flow Rate FiO2 09/24/17 05:00 82 09/24/17 04:00 98.0 77 16 102/58 (73) 98 09/24/17 04:00 98 09/24/17 03:00 90 09/24/17 02:00 92 09/24/17 01:00 92 09/24/17 00:00 97.9 80 16 98/57 (71) 97 09/24/17 00:00 80 09/23/17 23:00 80 09/23/17 22:00 82 09/23/17 21:00 74 09/23/17 20:00 97.5 88 16 100/58 (72) 96 09/23/17 20:00 94 09/23/17 19:00 76 09/23/17 18:00 70 09/23/17 17:00 71 09/23/17 16:00 70 09/23/17 16:00 97.4 67 19 93/55 (68) 98 09/23/17 14:15 77 17 99/60 (73) 09/23/17 14:10 77 09/23/17 13:30 97.8 75 16 90/50 (63) 96 Room Air 09/23/17 13:00 74 15 90/51 (64) 98 09/23/17 12:15 86 16 92/55 (67) 95 09/23/17 12:00 75 12 86/58 (67) 100 09/23/17 11:45 75 12 90/50 (63) 100 09/23/17 11:30 80 13 95/53 (67) 100 09/23/17 11:15 79 10 88/51 (63) 100 Nasal Cannula 2 09/23/17 11:08 98.0 84 12 90/50 (63) 100 Nasal Cannula 3 09/23/17 07:45 98.5 95 18 83/55 (64) 100 09/24/17 09/24/17 09/24/17 07:00 15:00 23:00 Intake Total 240 ml Output Total 25 ml Balance 215 ml Exam: R neck and axillary incisions ok + bruit heard in R arm R arm remains markedly swollen hand ok Laboratory Laboratory Tests Test 09/23/17 07:50 09/23/17 08:30 09/24/17 05:51 White Blood Count 5.0 Red Blood Count 3.58 Hemoglobin 10.6 Hematocrit 31.6 Mean Corpuscular Volume 88.1 Mean Corpuscular Hemoglobin 29.5 Mean Corpuscular Hemoglobin Concent 33.5 Red Cell Distribution Width 17.3 Platelet Count 234 Mean Platelet Volume 7.6 CBC Comment AUTO DIFF Differential Total Cells Counted 100 Neutrophils % (Manual) 36 Band Neutrophils % 3 Lymphocytes % 41 Monocytes % 10 Eosinophils % 8 Basophils % 1 Neutrophils # (Manual) 2.0 Differential Comment FINAL DIFF MANUAL Blastocytes 0 Platelet Estimate NORMAL Platelet Morphology Comment NORMAL Prothrombin Time 11.0 Prothromb Time International Ratio 1.1 Blood Urea Nitrogen 46 Creatinine 9.72 Random Glucose 151 Calcium Level 8.3 Sodium Level 132 Potassium Level 4.0 Chloride Level 96 Carbon Dioxide Level 26.3 Anion Gap 10 Estimat Glomerular Filtration Rate 6 Assessment and Plan Plan HD this morning d/c after HD will arrange f/u in 3 weeks Discharge Planning today after HD [phone] Breezy Umana MD Sep 24, 2017 06:50
--- NOTE | 2017-09-24 06:53 | MP ---
cc: TAMMY UMANA MD DATE OF SURGERY 09/23/2017 PREOPERATIVE DIAGNOSIS Central vein occlusion, end-stage renal disease, needs dialysis access. POSTOPERATIVE DIAGNOSIS Central vein occlusion, end-stage renal disease, needs dialysis access. PROCEDURE 1. Removal of tunneled catheter. 2. HeRO graft with proximal anastomosis in the axillary vein. ATTENDING SURGEON Tammy Umana. MID LEVEL BUSINESS ANALYST Temi Navarrete. ANESTHESIA General. INDICATIONS Mr. Laguerre is a 72-year-old gentleman with end-stage renal disease. He has a right upper extremity fistula that is mature by duplex analysis and central vein stenosis and occlusion of the stent that was previously placed elsewhere. Multiple failed attempts were made to recanalize the stent endovascularly and ultimately the patient required a hemodialysis reliable outflow graft. He has a central vein catheter placed to facilitate this. DESCRIPTION OF PROCEDURE Informed consent was obtained from the patient then he was taken to the operating room and placed supine on the operating table. An appropriate timeout was taken to ensure the patient's identity, operative site and planned procedure. The administration of a gram of vancomycin was initiated prior to skin incision and will be discontinued after a single preoperative dose. Vancomycin was chosen because of the patient's end-stage renal disease. Everyone in the room agreed with the timeout and we proceeded. His right neck, chest and right upper extremity were all prepped and draped including the catheter. A 0.035 Glidewire was introduced through the catheter with the patient in Trendelenburg position. The catheter was removed and a 6 Albanian 25 cm sheath was placed in its stead. The wire was removed and this sheath was flushed. An incision was made in the patient's right axilla, carried down through subcutaneous tissue with electrocautery. The axillary vein was identified and dissected free and encircled with a vessel loop. A counterincision was made immediately below the clavicle and carried down to subcutaneous tissue with electrocautery. A tunnel was then created between the axillary incision and the subclavicular incision and the catheter was identified on the medial aspect of the subclavicular incision by making a subcutaneous tunnel. We then placed an Amplatz wire into the inferior vena cava through the 6 [place]ian 25 cm sheath and this was removed and the dilators were used from the HeRO graft and ultimately a 20 [place]ian peel-away sheath was introduced. The dilator was removed and the catheter portion of the HeRO was then inserted and under fluoroscopic guidance was positioned into the distal aspect of the atrium. The peel-away was removed and a clamp was placed on the graft. The graft was then tunneled underneath the skin to the subclavicular incision and again clamped and it was cut to an appropriate length. The patient was systemically heparinized. The HeRO graft was then coupled to the HeRO catheter and passed through the tunnel into the axilla. Proximal and distal control of the axillary vein was obtained with profunda clamps and a longitudinal arteriotomy was made with an 11 blade and extended with [place] scissors. The graft was cut to an appropriate length, spatulated and sewn end-to-side with running 5-0 [place]-Manuel suture. At the completion it was flushed and noted to be hemostatic. There was a nice thrill in the fistula and all the wounds were made hemostatic. The catheter site was oversewn with 2-0 nylon rather and the wounds were made hemostatic. The heparin was reversed with protamine and the wounds were closed with 2-0 Polysorb, 3-0 Polysorb and 4-0 Monocryl. Prior to completing closure of the incisions the patient's skin was anesthetized with Marcaine. There were no complications. The sponge and needle counts were correct at the end of the case and I was present and scrubbed for the entire procedure. MD JENELLE Torres/MARICRUZ /11:15 AM /6:26 AM
[2017-09-24] MEDS ORDERED: PERC5TAB12 PO (08:36)
[2017-09-24] MEDS: INSULIN ASPART SUPPLEMENTAL SCALE SQ SCH (08:38)
--- NOTE | 2017-09-24 08:45 | PD.VS.DC ---
Discharge Summary Admission Date: Sep 23, 2017 at 10:39 Discharge Date: Sep 24, 2017 Admission Diagnosis: (1) ESRD (end stage renal disease) on dialysis (2) AVF (arteriovenous fistula) (3) DM (diabetes mellitus) type II controlled with renal manifestation Discharge Diagnosis: (1) AVF (arteriovenous fistula) ICD Codes: I77.0 - Arteriovenous fistula, acquired Status: Acute (2) ESRD (end stage renal disease) on dialysis ICD Codes: N18.6 - End stage renal disease; Z99.2 - Dependence on renal dialysis Status: Chronic Brief History from admission 72 yo male with ESRD on HD MWF via R chest catheter. 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 Presents for HeRO catheter Procedure(s): HeRO graft R UE Significant Findings GENERAL: A&Ox3,GCS15,NAD SKIN: Warm and dry/ Right neck and axillary incisions intact with surgical glue C/D w/o S/R CARDIOVASCULAR: Regular rate and rhythm without murmurs, gallops, or rubs. RESPIRATORY: Breath sounds equal bilaterally. No accessory muscle use. MUSCULOSKELETAL: No cyanosis, Moderate RIGHT arm swollen (non pitting) + bruit heard in R arm near AVF UE warm w/ motor intact Laboratory Tests Test 09/23/17 07:50 09/23/17 08:30 09/24/17 05:51 Red Blood Count 3.58 MIL/MM3 (4.50-5.90) Hemoglobin 10.6 GM/DL (13.0-17.0) Hematocrit 31.6 % (39.0-51.0) Red Cell Distribution Width 17.3 % (11.6-17.2) Monocytes % 10 % (0-8) Eosinophils % 8 % (0-4) Blood Urea Nitrogen 46 MG/DL (7-18) 57 MG/DL (7-18) Creatinine 9.72 MG/DL (0.60-1.30) 11.23 MG/DL (0.60-1.30) Random Glucose 151 MG/DL (74-106) 199 MG/DL (74-106) Calcium Level 8.3 MG/DL (8.5-10.1) 8.3 MG/DL (8.5-10.1) Sodium Level 132 MEQ/L (136-145) 133 MEQ/L (136-145) Chloride Level 96 MEQ/L (98-107) 97 MEQ/L (98-107) Estimat Glomerular Filtration Rate 6 ML/MIN (>89) 5 ML/MIN (>89) Phosphorus Level 7.9 MG/DL (2.5-4.9) Potassium Level 5.6 MEQ/L (3.5-5.1) Hospital Course: 72 yo male with ESRD on HD MWF via R chest catheter. 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 Presents for HeRO catheter POD 1- W/o complaints, pain controlled, denies hand pain + thrill heard RUE near AVF Arranged post op follow up Pt clear for D/C post HD Allergies Coded Allergies Type Severity Reaction Last Updated Verified No Known Allergies Allergy Unknown 09/22/17 Yes Recent Impressions Chest X-Ray 09/23/17 0000 Signed Impressions: Service Date/Time: Saturday, September 23, 2017 11:20 - CONCLUSION: Catheter is in good position. Lungs are grossly clear.. Rylan Rod MD 09/22/17 09/22/17 09/23/17 09/23/17 09/24/17 09/24/17 06:00 18:00 06:00 18:00 06:00 18:00 Intake Total 1230 ml 240 ml Output Total 720 ml 25 ml Balance 510 ml 215 ml Intake Oral 480 ml 240 ml Other 750 ml Output Urine Total 25 ml Emesis 600 ml Estimated Blood Loss 120 ml # Bowel Movements 0 Laboratory Tests Test 09/23/17 07:50 09/23/17 08:30 09/24/17 05:51 White Blood Count 5.0 TH/MM3 Red Blood Count 3.58 MIL/MM3 Hemoglobin 10.6 GM/DL Hematocrit 31.6 % Mean Corpuscular Volume 88.1 FL Mean Corpuscular Hemoglobin 29.5 PG Mean Corpuscular Hemoglobin Concent 33.5 % Red Cell Distribution Width 17.3 % Platelet Count 234 TH/MM3 Mean Platelet Volume 7.6 FL CBC Comment AUTO DIFF Differential Total Cells Counted 100 Neutrophils % (Manual) 36 % Band Neutrophils % 3 % Lymphocytes % 41 % Monocytes % 10 % Eosinophils % 8 % Basophils % 1 % Neutrophils # (Manual) 2.0 TH/MM3 Differential Comment FINAL DIFF MANUAL Blastocytes 0 % Platelet Estimate NORMAL Platelet Morphology Comment NORMAL Prothrombin Time 11.0 SEC Prothromb Time International Ratio 1.1 RATIO Blood Urea Nitrogen 46 MG/DL 57 MG/DL Creatinine 9.72 MG/DL 11.23 MG/DL Random Glucose 151 MG/DL 199 MG/DL Calcium Level 8.3 MG/DL 8.3 MG/DL Sodium Level 132 MEQ/L 133 MEQ/L Potassium Level 4.0 MEQ/L 5.6 MEQ/L Chloride Level 96 MEQ/L 97 MEQ/L Carbon Dioxide Level 26.3 MEQ/L 27.0 MEQ/L Anion Gap 10 MEQ/L 9 MEQ/L Estimat Glomerular Filtration Rate 6 ML/MIN 5 ML/MIN Phosphorus Level 7.9 MG/DL Orders Procedure Category Date Status Time Protamine Sulfate Inj MED 09/23/17 Complete (Protamine Sulfate 06:48 Heparin Inj (Heparin MED 09/23/17 Complete Inj) 06:48 Bupivacaine Pf 0.5% MED 09/23/17 Complete Inj (Marcaine Pf 0.5 06:49 Vancomycin Inj MED 09/23/17 Complete (Vancomycin Inj) 06:49 Thrombin Top [place] MED 09/23/17 Complete (Thrombin Top [place]) 06:49 Heparin-Ns/Pf Inj MED 09/23/17 Complete (Heparin-Ns/Pf Inj) 06:49 Sodium Chlor 0.9% 250 MED 09/23/17 Complete Ml Inj (Ns 250 Ml 06:49 Complete Blood Count LAB 09/23/17 Complete With Diff 07:20 Basic Metabolic Panel LAB 09/23/17 Complete (Bmp) 07:20 Type And Screen BBK 09/23/17 Complete 07:20 Prothrombin Time / LAB 09/23/17 Complete Inr (Pt) 07:20 Lactated Ringer's MED 09/23/17 In Process 1000 Ml Inj (Lr 1000 M 07:30 Sodium Chlorid 0.9% MED 09/23/17 In Process 500 Ml Inj (Ns 500 M 07:30 Metoprolol Tartrate MED 09/23/17 In Process (Lopressor) 07:30 Povidone Iod 5% MED 09/23/17 In Process Antisepsis Kit 07:30 Chlorhexidine 2% MED 09/23/17 In Process Cloth (Chlorhexidine 07:30 Insulin Human Regular MED 09/23/17 In Process Inj (Novolin R Inj 07:30 Vancomycin Inj MED 09/23/17 Complete (Vancomycin Inj) 09:58 Place In Observation ADMITTING 09/23/17 Transmitted Code Status CODE 09/23/17 Transmitted 10:36 Vital Signs (Adult) BENNETT 09/23/17 Complete 10:36 Medical Editor / BENNETT 09/23/17 In Process Telemetry 10:36 Activity Oob Ad Tamiko BENNETT 09/23/17 In Process 10:[address] Hernández BENNETT 09/23/17 In Process 10:36 Precautions BENNETT 09/23/17 In Process 10:36 Diet Heart Healthy DIET 09/23/17 Transmitted Lunch Basic Metabolic Panel LAB 09/24/17 Complete (Bmp) 06:00 Chest, Single Ap RADDIAG 09/23/17 Resulted Consult Nephrology CONS 09/23/17 Transmitted Famotidine (Pepcid) MED 09/23/17 Complete 21:00 Oxycodone (Roxicodone) MED 09/23/17 In Process 10:45 Hydromorphone MED 09/23/17 In Process (Dilaudid) 10:45 Scd Bilateral/Knee BENNETT 09/23/17 In Process High 10:36 Docusate Sodium-Senna MED 09/23/17 In Process (Jaida-Colace) 21:00 Sennosides (Senokot) MED 09/23/17 In Process 10:45 Bisacodyl Supp MED 09/23/17 In Process (Dulcolax Supp) 10:45 Lactulose Liq MED 09/23/17 In Process (Lactulose Liq) 10:45 Aspirin Chew (Aspirin MED 09/24/17 In Process Chew) 09:00 Vitamin B Cmplx-Vit MED 09/24/17 In Process C-Folic Ac (Nephroca 09:00 Calcium Acetate MED 09/23/17 Complete (Phoslo) 13:00 Cinacalcet (Sensipar) MED 09/24/17 In Process 09:00 Furosemide (Lasix) MED 09/23/17 In Process 12:00 Pantoprazole MED 09/24/17 In Process (Protonix) 09:00 Sevelamer (Renvela) MED 09/23/17 Complete 13:00 Blood Glucose Goal BENNETT 09/23/17 In Process (Criteria) 10:40 Hypoglycemia 70 Mg/Dl BENNETT 09/23/17 In Process Or < 10:[address]: Other BENNETT 09/23/17 In Process 10:40 Dextrose 50% In Claudia MED 09/23/17 In Process (Vial) Inj (D50w (Vi 10:45 Glucagon Inj MED 09/23/17 In Process (Glucagon Inj) 10:45 Insulin Aspart MED 09/23/17 In Process Supplemtl Scale 12:15 (Hub Use Only)Inp Phy CONS 09/23/17 Transmitted Cons/Ref Blood Flow Rate BENNETT 09/23/17 In Process 11:26 Dialysate Flow Rate BENNETT 09/23/17 In Process 11:26 Dialyzer BENNETT 09/23/17 In Process 11:26 Concentrate BENNTET 09/23/17 In Process 11:26 Acid Concentrate BENNETT 09/23/17 In Process 11:26 Length Of Dialysis BENNETT 09/23/17 In Process 11:26 Frequency Of Dialysis BENNETT 09/23/17 In Process 11:26 Dialysis Obtain BENNETT 09/23/17 In Process 11:26 Needle Size BENNETT 09/23/17 In Process 11:26 Dialysis Schedule BENNETT 09/23/17 In Process 11:26 Resp Oxygen Shane C RSP 09/23/17 Logged Titrat 1-4 L Dialysis Weight BENNETT 09/23/17 In Process 11:26 ^ Obtain As Needed BENNETT 09/23/17 In Process 11:26 Sodium Chlor 0.9% MED 09/23/17 In Process 1000 Ml Inj (Ns 1000 M 11:26 Heparin Inj (Heparin MED 09/23/17 In Process Inj) 11:30 Sodium Chlor 0.9% MED 09/23/17 In Process 1000 Ml Inj (Ns 1000 M 11:26 Sodium Chlor 0.9% MED 09/23/17 In Process 1000 Ml Inj (Ns 1000 M 11:26 Mannitol Inj MED 09/23/17 In Process (Mannitol Inj) 11:30 Albumin 25% Inj MED 09/23/17 In Process (Albumin 25% Inj) 11:30 Sodium Chloride 0.9% MED 09/23/17 In Process Flush (Ns Flush) 11:30 Heparin Inj (Heparin MED 09/23/17 In Process Inj) 11:30 Gentamicin (Dialysis) MED 09/23/17 In Process Inj (Gentamicin (D 11:30 Ondansetron Inj MED 09/23/17 In Process (Zofran Inj) 11:30 Acetaminophen MED 09/23/17 In Process (Tylenol) 11:30 Diphenhydramine MED 09/23/17 In Process (Benadryl) 11:30 Nitroglycerin Sl MED 09/23/17 In Process (Nitrostat Sl) 11:30 Clonidine (Catapres) MED 09/23/17 In Process 11:30 Epoetin Gregory Inj MED 09/23/17 In Process (Epogen Inj) 11:30 Gelatin 12 Mm/7 Mm MED 09/23/17 In Process Top (Gelfoam 12 Mm/7 11:30 Sds Pre Op Care [facility] 09/23/17 Complete Misc Nursing MED 09/23/17 In Process Information 11:08 Morphine Inj MED 09/23/17 In Process (Morphine Inj) 12:15 Heparin Inj (Heparin MED 09/24/17 In Process Inj) 10:00 Class Iv Pacu Ea 30 [facility] 09/23/17 Complete MIN General/Pacu [facility] 09/[facility]/17 Complete Post Anesthesia Oxygen [facility] 09/23/17 Complete Bedside Glucose [facility] 09/23/17 Complete Pacu Cpcu Holding [facility] 09/23/17 Complete Hourly Sevelamer (Renvela) MED 09/23/17 In Process 18:00 Phosphorus (Po4) LAB 09/24/17 Complete 06:00 Attending Discharge DISCHARGE 09/24/17 Transmitted Order Vital Signs Date Time Temp Pulse Resp B/P (MAP) Pulse Ox O2 Delivery O2 Flow Rate FiO2 09/24/17 07:43 97.6 79 18 101/57 (72) 98 09/24/17 06:00 78 09/24/17 05:00 82 09/24/17 04:00 98.0 77 16 102/58 (73) 98 09/24/17 04:00 98 09/24/17 03:00 90 09/24/17 02:00 92 09/24/17 01:00 92 09/24/17 00:00 97.9 80 16 98/57 (71) 97 09/24/17 00:00 80 09/23/17 23:00 80 09/23/17 22:00 82 09/23/17 21:00 74 09/23/17 20:00 97.5 88 16 100/58 (72) 96 09/23/17 20:00 94 12/19/17 19:00 76 09/23/17 18:00 70 09/23/17 17:00 71 09/23/17 16:00 70 09/23/17 16:00 97.4 67 19 93/55 (68) 98 09/23/17 14:15 77 17 99/60 (73) 09/23/17 14:10 77 09/23/17 13:30 97.8 75 16 90/50 (63) 96 Room Air 09/23/17 13:00 74 15 90/51 (64) 98 09/23/17 12:15 86 16 92/55 (67) 95 09/23/17 12:00 75 12 86/58 (67) 100 09/23/17 11:45 75 12 90/50 (63) 100 09/23/17 11:30 80 13 95/53 (67) 100 09/23/17 11:15 79 10 88/51 (63) 100 Nasal Cannula 2 09/23/17 11:08 98.0 84 12 90/50 (63) 100 Nasal Cannula 3 09/23/17 07:45 98.5 95 18 83/55 (64) 100 Discharge Condition: Good Discharge Disposition: Discharge Home Discharge Instructions: May resume a diabetic/renal diet Activities as tolerated- NO heavy lifting (over a gallon of milk) for 2W Leave incisions open to air Report any new onset redness, drainage or increased swelling Do not apply any creams or ointments to your incisions as it may loosen the surgical glue You were prescribed a narcotic pain medication- take with an over the counter stool softener as it may cause constipation No driving while taking your prescribed pain medication - as it may causes dizziness Follow up in our out pt clinic in [address] Eliane ZENG [facility] [phone] Any questions or concerns: Call [phone] Eliane Rucker Sep 24, 2017 08:45
[2017-09-24] MEDS ORDERED: ASPIRIN 81 MG CHEW TAB CHEW SCH (09:00)
[2017-09-24] MEDS ORDERED: PANTOPRAZOLE SOD 40 MG DELAYED RELEASE TAB PO SCH (09:00)
[2017-09-24] MEDS: SEVELAMER CARBONATE 800 MG TAB PO SCH (09:00)
[2017-09-24] MEDS ORDERED: CINACALCET HYDROCHLORIDE 30 MG TAB PO SCH (09:00)
[2017-09-24] MEDS ORDERED: VITAMIN B CMPLX/VITC/FOLIC AC CAP PO SCH (09:00)
[2017-09-24] MEDS ORDERED: HEPARIN SODIUM - SQ 10,000 UNITS/ML VIAL SQ SCH (10:00)
[2017-09-24] MEDS ORDERED: ALTEPLASE RECOMBINANT 2 MG VIAL SCH (10:30)
--- NOTE | 2017-09-24 14:16 | HHI.NPPN ---
Subjective General Problems: Anemia Renal Failure: Chronic, End Stage Renal Disease Interval History Seen during dialysis. Permcath on left has sluggish flow. He has no complaints today. (Ana Hodgson) Objective Data Data Vital Signs Date Time Temp Pulse Resp B/P (MAP) Pulse Ox O2 Delivery O2 Flow Rate FiO2 09/24/17 10:15 98 21 09/24/17 08:00 82 09/24/17 07:43 97.6 79 18 101/57 (72) 98 09/24/17 07:00 93 09/24/17 06:00 78 09/24/17 05:00 82 09/24/17 04:00 98.0 77 16 102/58 (73) 98 09/24/17 04:00 98 09/24/17 03:00 90 09/24/17 02:00 92 09/24/17 01:00 92 09/24/17 00:00 97.9 80 16 98/57 (71) 97 09/24/17 00:00 80 09/23/17 23:00 80 09/23/17 22:00 82 09/23/17 21:00 74 09/23/17 20:00 97.5 88 16 100/58 (72) 96 09/23/17 20:00 94 09/23/17 19:00 76 09/23/17 18:00 70 09/23/17 17:00 71 09/23/17 16:00 70 09/23/17 16:00 97.4 67 19 93/55 (68) 98 09/23/17 14:15 77 17 99/60 (73) (Ana Hodgson) -: 09/23/17 0750 09/24/17 0551 Imaging Last 72 hours Impressions Chest X-Ray 09/23/17 0000 Signed Impressions: Service Date/Time: Saturday, September 23, 2017 11:20 - CONCLUSION: Catheter is in good position. Lungs are grossly clear.. Rylan Rod MD Tubes & Lines: Perma-Cath (Ana Hodgson) Physical Exam General Appearance: Well Developed, No Acute Distress, Comfortable (Ana Hodgson) Throat Throat Exam: Oral Mucosa Cunard & Moist (Ana Hodgson) Pulmonary Resp Exam: Clear Bilaterally, Breath Sounds Equal (Ana Hodgson) Cardiology CV Exam: Regular, Normal Sinus Rhythm (Ana Hodgson) Gastrointestinal/Abdomen GI Exam: Soft, Non-Tender, Bowel Sounds Present (Ana Hodgson) Musculoskeletal MS Exam: Joints Intact, Normal Tone (Ana Hodgson) Integumentary Skin Exam: Warm, Dry (Ana Hodgson) Extremeties Extremities Exam: Pedal Pulses Palpable Extremeties Remarks right arm with non pitting edema s/p procedure (Ana Hodgson) Neurologic Neuro Exam: Alert, Awake, Oriented, Speech Clear, Moving All Extremities (Ana Hodgson) Psychiatric Psych Exam: Appropriate Responses (Ana Hodgson) Assessment/Plan Discussed Condition With: Patient Assessment Summary: Anemia of CKD, Hypertension, End Stage Renal Disease Problem List: (1) ESRD (end stage renal disease) on dialysis ICD Codes: N18.6 - End stage renal disease; Z99.2 - Dependence on renal dialysis Status: Chronic Plan: Seen during dialysis today on a 2K, 350 BFR, goal 3L Continue MWF HD, has existing outpatient arrangements after discharge Has Permcath left chest for HD use; had to use CathFlo and manipulate the lines for dialysis. May need follow up after discharge Avoid IVF Dialyzed on a 2K bath Avoid nephrotoxic agents, renally dose when appropriate s/p HeRO graft placement, will need to follow after discharge Historically has high phosphorus levels, on Renvela with meals (2) Anemia ICD Codes: D64.9 - Anemia, unspecified Status: Acute Plan: On Epogen with HD (3) DM (diabetes mellitus) type II controlled with renal manifestation ICD Codes: E11.29 - Type 2 diabetes mellitus with other diabetic kidney complication Status: Acute Plan: Use insulin as needed, maintain glucose 140-180 mg/dL. (Ana Hodgson) Plan patient was seen and examined. Agree with above assessment and plan. Seen during dialysis. Problems with PermCath, Cathflow administered, later was able to complete treatment. (Roberth He MD) Ana Hodgson Sep 24, 2017 14:16 Roberth He MD Sep 26, 2017 09:49
== END 2017-09-24 14:51 | disposition home or self-care (01) ==
LOC: HSDC 07:03 → HSDI 10:39 → HCPC 14:00
PROVIDERS: ADMIT Surgery; ATTEND Surgery
DX: I12.0 Hypertensive chronic kidney disease with stage 5 chronic kidney disease or end stage renal disease (principal); E11.22 Type 2 diabetes mellitus with diabetic chronic kidney disease; N18.6 End stage renal disease; D63.1 Anemia in chronic kidney disease; I77.0 Arteriovenous fistula, acquired; N25.81 Secondary hyperparathyroidism of renal origin; K21.9 Gastro-esophageal reflux disease without esophagitis; N40.0 Benign prostatic hyperplasia without lower urinary tract symptoms; E66.9 Obesity, unspecified; Z99.2 Dependence on renal dialysis; Z79.82 Long term (current) use of aspirin; Z79.4 Long term (current) use of insulin
CPT/HCPCS: 00400; 00532; 01844; 36558; 36589; 36593; 36830; 71010; 76937; 80048; 82948; 84100; 85007; 85027; 85610; 86850; 86900; 86901; 90935; 96372; 96374; 96375; C1750; C1769; G0378; J1580; J1644; J1815; J2370; J2405; J2710; J2720; J3370; J7040; J7050; Q4081; Q9967

== ENCOUNTER 2017-12-04 12:58 | Day surgery (SDC) | payer MEDICARE, MEDICAID ==
[~2017-12-04] VITALS: Ht 175.3 cm; Wt 126.6 kg
[~2017-12-04 12:58] MED LIST changes: -BUPIVACAINE HCL PF 0.5% 30 ML VIAL ONE; -GLUCKIT15; -GLUCTES12; -HEPARIN SODIUM - IV 10,000 UNITS/10 ML VIAL ONE; -HEPARIN-NS/PF INJ 500 ML ONE; -INSU1MIS15; -LANCETS1 MI1; +PERC5TAB12 PO; -PROTAMINE SULFATE 50 MG/5 ML VIAL ONE; -SODIUM CHLOR 0.9% 250 ML INJ 250 ML ONE; -THROMBIN (TOPICAL) 20,000 UNIT SPRAY KIT ONE; -VANCOMYCIN HCL 1000 MG VIAL ONE
[2017-12-04] MEDS ORDERED: IOHEXOL 350 MG/ML 50 ML BTL (for Cath Lab) OTHER ONE (12:59)
[2017-12-04] MEDS ORDERED: SODIUM CHLOR 0.9% 1000 ML INJ 1,000 ML IV SCH (14:00)
[2017-12-04] MEDS ORDERED: MIDAZOLAM HCL 5 MG/5 ML VIAL ONE (14:04)
[2017-12-04] MEDS ORDERED: HEPARIN SODIUM - IV 10,000 UNITS/10 ML VIAL ONE (14:04)
[2017-12-04] MEDS ORDERED: HEPARIN-NS/PF FLUSH BAG 1,000 ML IV FLUSH ONE (14:04)
[2017-12-04 14:05] VITALS: BP 113/63; PULSE 69; RESP 18; TEMP 97.7; O2SAT 95
--- NOTE | 2017-12-04 14:11 | HHI.HP ---
History of Present Illness Chief Complaint: R UE swelling History of Present Illness 72 yo male with R UE swelling after R UE access revision and HeRO graft Past/Family/Social History Past Medical History ESRD HTN Past Surgical History R UE AVF with revisions and ultimately HeRO Social History nonsmoker Family History NC Home Medications Active Scripts Oxycodone-Acetaminophen (Percocet) 5-325 mg Tab, 1 TAB PO Q4H Y for PAIN, #30 TAB 0 Refills Prov:Eliane Rucker 09/24/17 Insulin Lispro (Human) Inj (Humalog Inj) 1,000 Unit/10 Ml Vial, 1-9 UNITS SQ ACHS for Blood Sugar Management, #1 VIAL 0 Refills sugars< 70,(0)units; sugars 150-199,(1)unit; sugars 200-249,(3)units; sugars 250-299,(5)units; sugars 300-349,(7)units; sugars more than 349,(9)units. Prov:Mirna Barron MD 04/18/17 Reported Medications Aspirin (Aspirin) 81 Mg Chew, 81 MG CHEW DAILY, TAB 0 Refills 09/04/17 Sevelamer Carbonate (Renvela) 800 Mg Tab, 800 MG PO TID for Control phosphorous levels, #90 TAB 0 Refills 08/12/17 Cinacalcet (Sensipar) 30 Mg Tab, 30 MG PO DAILY, #30 TAB 0 Refills 08/12/17 Insulin Glargine Inj (Lantus Inj) 1,000 Unit/10 Ml Vial, 10 UNITS SQ HS for Blood Sugar Management, VIAL 0 Refills 07/15/17 Pantoprazole (Pantoprazole) 40 Mg Tab, 40 MG PO DAILY for Reflux, #30 TAB 0 Refills 11/05/16 B-Complex W/ C & Folic Acid (Renal Vitamin) 1 Cap, 1 CAP PO DAILY for Nutritional Supplement, #30 CAP 0 Refills If on dialysis, take after treatment. 11/05/16 Calcium Acetate (Phosphate Binder) (Calcium Acetate (Phosphate Binder)) 667 Mg Tab, 667 MG PO TID for Hyperphosphatemia, #90 TAB 0 Refills 11/05/16 Furosemide (Furosemide) 40 Mg Tab, 40 MG PO sututhsa, #30 TAB 0 Refills 11/05/16 Coded Allergies: No Known Allergies (Verified Allergy, Unknown, 09/22/17) Review of Systems Constitutional: DENIES: Diaphoretic episodes, Fatigue, Fever, Weight gain, Weight loss, Chills, Dizziness, Change in appetite, Night Sweats Physical Exam Neuro: alert oriented HEENT: anicteric sclera Neck: no JVD; knot R neck prior suture Heart: reg rate Lungs: clear Vascular: difficult to appreciate R UE thrill Caprini VTE Risk Assessment Caprini VTE Risk Assessment: No/Low Risk (score <= 1) Caprini Risk Assessment Model Point Value = 1 Point Value = 2 Point Value = 3 Point Value = 5 Age 41-60 Minor surgery BMI > 25 kg/m2 Swollen legs Varicose veins or History of unexplained or recurrent spontaneous Oral contraceptives or hormone replacement Sepsis (< 1 month) Serious lung disease, including pneumonia (< 1 month) Abnormal pulmonary function Acute myocardial infarction Congestive heart failure (< 1 month) History of inflammatory bowel disease Medical patient at bed rest Age 61-74 Arthroscopic surgery Major open surgery (> 45 min) Laparoscopic surgery (> 45 min) Malignancy Confined to bed (> 72 hours) Immobilizing plaster cast Central venous access Age >= 75 History of VTE Family history of VTE Factor V Leiden Prothrombin [id number] Lupus anticoagulant Anticardiolipin antibodies Elevated serum homocysteine Heparin-induced thrombocytopenia Other congenital or acquired thrombophilia Stroke (< 1 month) Elective arthroplasty Hip, pelvis, or leg fracture Acute spinal cord injury (< 1 month) Prophylaxis Regimen Total Risk Factor Score Risk Level Prophylaxis Regimen 0-1 Low Early ambulation 2 Moderate Order ONE of the following: *Sequential Compression Device (SCD) *Heparin 5000 units SQ BID 3-4 Higher Order ONE of the following medications: *Heparin 5000 units SQ TID *Enoxaparin/Lovenox 40 mg SQ daily (WT < 150 kg, CrCl > 30 mL/min) *Enoxaparin/Lovenox 30 mg SQ daily (WT < 150 kg, CrCl > 10-29 mL/min) *Enoxaparin/Lovenox 30 mg SQ BID (WT < 150 kg, CrCl > 30 mL/min) AND/OR *Sequential Compression Device (SCD) 5 or more Highest Order ONE of the following medications: *Heparin 5000 units SQ TID (Preferred with Epidurals) *Enoxaparin/Lovenox 40 mg SQ daily (WT < 150 kg, CrCl > 30 mL/min) *Enoxaparin/Lovenox 30 mg SQ daily (WT < 150 kg, CrCl > 10-29 mL/min) *Enoxaparin/Lovenox 30 mg SQ BID (WT < 150 kg, CrCl > 30 mL/min) AND *Sequential Compression Device (SCD) Assessment and Plan Plan R UE swelling, possible HeRO occlusion plan for fistulogram Discharge Planning today Breezy Umana MD Dec 04, 2017 14:11
--- NOTE | 2017-12-04 15:02 | CATHPROC ---
[email or web address] HIS Report Study Information Study Number Admission Scheduled Start Study Start [id number] Dec 04 2017 12:58PM 12/04/2017 Dec 04 2017 2:09PM Maybee Service Cath Endovascular Study Admit Source Facility Department Other [facility] - Archaeologist Physician and Clinical Staff Initial Breezy Dueñas Superintendent Greens Ana Berger,RN Recorder Alfred WINTERS, Tristin Mcelroy,RT(R) X-Ray Avery Watkins,RT(R) Equipment Time Core Dropper Description Size Mfg Part Number Used/Scraped INTRODUCER SET, 14:14 [employer] FR 5 [id number] *[id number] Used MICROPUNCTURE, STIFFENED [id number] 14:14 [employer] PACK, CCL CUSTOM * Used *[id number] 14:14 NYCOMED OMNIPAQUE, 300 MG, 50ML 50ML [id number] Used [id number] 14:14 FULLER MED[employer] BLANKET,WARM AIR CCL * Used *[id number] WIRE, ANGLED GLIDE .035 [id number] 14:14 [employer]/FATEMEH 260CM Used 260CM *[id number] History: Allergies Allergy Reaction NKDA Medication Medication Total Dose (Bolus/Oral) Medication Total Dosage/Unit 1% XYLOCAINE 20 mL FENTANYL 50 mcg VERSED 2 mg Medications (Bolus/Oral) Medication Time Given Dosage/Unit Administered By Reason VERSED 12/04/2017 2:36:10 PM 2 mg Ana Berger 2 mg VERSED given in lab by Ana Berger, VIANEY via Peripheral IV. Ordered by Breezy Umana. FENTANYL 12/04/2017 2:37:42 PM 50 mcg Ana Berger For sedation 50 mcg FENTANYL given in lab by Ana Berger, VIANEY via Peripheral IV. Ordered by Breezy Umana. Reas on: For sedation. 1% XYLOCAINE 12/04/2017 2:44:32 PM 20 mL Breezy Umana 20 mL 1% XYLOCAINE given in lab by Breezy Umana in Right Forearm via Subcutaneous. Ordered by Breezy Dumas. Initial Case Assessment Cardiovascular HR NIBP 77 115/97 Edema Present Skin color Skin Mild Normal Warm Dry Neurological State Oriented to time-place- Alert Moves all extremities person Respiration - General Respiration Rate SpO2 (%) (B/min) 18 92 Final Case Assessment Cardiovascular HR NIBP 82 94/52 Neurological State Oriented to time-place- Drowsy Moves all extremities person Respiration - General Respiration Rate SpO2 (%) O2 (lpm) (B/min) 11 95 4 Chronological Log Time Study Chronological Log 14:32:59 Patient arrived via Bed. 14:33:02 Patient Name, D.O.B, / Armband Verified By R.N. 14:33:04 Consent signed by the physician and the patient and verified by the Archaeologist staff. 14:33:05 Pre-op and post- op instructions given; patient acknowledges understanding of instructions . 14:33:09 Immediate Presedation assesment performed by physician. 14:33:13 Patient has been NPO for More than 6Hrs. 14:33:20 History and physical on the chart or being dictated. 14:33:23 A # 20 IV was noted in the Forearm (left). Grade = 0 Vitals capture started with the following parameters, Patient=Adult, Interval=5 min, Initial Pr iuilsx=854 mmHg, 14:33:53 Deflation Rate=5 mmHg, Cuff placed on Right Ankle 14:34:31 HR=60 bpm, MEEV=243/46 mmhg, SpO2=90.0 %, Resp=22 B/min, Toth=2 Assessment: Initial Case, HR=77 BPM, EXCU=604/97 mmhg, Edema=Mild, Color=Normal, Skin = Warm, D ry 14:35:29 Neurological: State=Alert, Ox3, VAN Respiration: Resp=18 B/min, SpO2=92 % 14:36:10 2 mg VERSED given in lab by Ana Berger RN via Peripheral IV. Ordered by Breezy Umana . 14:36:50 Right arm prepped with 2% chlorhexidine, and draped after a 3 min. waiting time. 50 mcg FENTANYL given in lab by Ana Berger, VIANEY via Peripheral IV. Ordered by Breezy Umana . Reason: For 14:37:42 sedation. 14:39:22 HR=93 bpm, WMCI=319/97 mmhg, SpO2=92 %, Resp=24 B/min, Toth=2 14:42:13 Skin Breakdown- none reported Time Out. Correct patient, correct procedure, correct physician, power injector loaded, or not loaded with contrast with 14:43:47 surgical team present. Time Out Concurred by MD and individual staff in procedure. 14:44:02 Case Start 14:44:32 20 mL 1% XYLOCAINE given in lab by Breezy Umana in Right Forearm via Subcutaneous. Ordere d by Breezy Umana. 14:44:35 HR=84 bpm, NIBP=78/45 mmhg, Resp=19 B/min, Toth=4 14:45:00 Access site was right av fistula A INTRODUCER SET, MICROPUNCTURE, STIFFENED FR 5 was advanced into the Fistula using the Valeria Nicolas 14:45:32 technique. 14:45:54 NIBP STAT measurement started. 14:46:26 HR=87 bpm, NIBP=82/48 mmhg, SpO2=93.0 %, Resp=17 B/min, Toth=4 14:47:39 Fistula imaged in multiple views 14:48:58 Case End 14:49:26 HR=86 bpm, NIBP=94/52 mmhg, SpO2=93.0 %, Resp=19 B/min, Toth=4 14:49:37 Sheath removed; pressure applied to access site. 14:50:46 No case complications noted. 14:50:50 Bedside Report will be given. Assessment: Final Case, HR=82 BPM, NIBP=94/52 mmhg 14:51:07 Neurological: State=Drowsy, Ox3, VAN Respiration: Resp=11 B/min, SpO2=95 %, O2=4 lpm 14:52:26 DOCU called. Spoke to Beckie WINTERS 14:54:29 HR=89 bpm, NIBP=88/51 mmhg, Resp=17 B/min, Toth=2 14:58:13 Sterile dressing applied to site 14:59:02 Vitals capture stopped. 15:01:03 Patient moved to [facility] End Study - Contrast Media Used In Study Contrast Total Opened (mL) Total Used (mL) Total Wasted (mL) Omnipaque 50 10 40 End Study - Radiation Exposure Fluoro Time (minutes) 0.3 End Study - Patient Disposition Complications Transferred To Interventional Outcome No Archaeologist Holding No attempt made
--- NOTE | 2017-12-04 15:18 | HHI.PR ---
cc: Breezy Umana MD Immediate Post Op Note Procedure Date: Dec 04, 2017 Pre Op Diagnosis: R UE swelling after AVG Post Op Diagnosis: R UE swelling after AVG, failed HeRO Surgeon: Breezy Umana Interior Specialist(s): none Procedure: R UE fistulogram U/S guided to AVF Findings: occluded HeRO Complications: none Specimen(s) removed: none Estimated blood loss: 5mL Anesthesia: MAC Drains: None Patient to: Other (DOCU) Breezy Umana MD Dec 04, 2017 15:18
--- NOTE | 2017-12-05 08:43 | MP ---
cc: Breezy Umana MD DATE OF OPERATION: 12/04/2017 PREOPERATIVE DIAGNOSIS: Central vein stenosis, status post arteriovenous graft revision with HeRO graft. POSTOPERATIVE DIAGNOSIS: Occluded HeRO. PROCEDURE: 1. Ultrasound-guided access fistula. 2. Fistulogram. ATTENDING SURGEON: Breezy Umana MD ANESTHESIA: Local with sedation. INDICATION: Mr. Laguerre is a gentleman with complex dialysis access troubles. He has a right brachiobasilic fistula and a known central vein occlusion that was unsuccessfully treated with endovascular therapy. He underwent a HeRO graft for central vein outflow bypass in that sense, and his arm is not yet diminished in size. He is taken to the operating room for endovascular interrogation of the outflow of the graft. Intraoperatively, it was found that his HeRO was completely occluded. DESCRIPTION OF PROCEDURE: Informed consent obtained. The was taken to the operating room, placed supine on the operating room table and appropriate timeout was taken to ensure the patient's identity, operative site and planned procedure. No antibiotics were necessary as this was a clean procedure without a planned implantation of any foreign objects. Everyone in the room agreed with timeout. We proceeded. His right arm was prepped and draped and locally anesthetized with 1% lidocaine. A 21-gauge Micropuncture needle was used to access the brachiobasilic fistula under ultrasonographic guidance. This was exchanged using Seldinger technique from a fistulogram, which was used to obtain images. The fistulogram showed that the basilic vein was patent and the outflow of the basilic vein was completely occluded. The HeRO graft was completely occluded. The Micropuncture sheath was removed and pressure held for hemostasis. There were no complications. I was present and scrubbed and performed the entire procedure. Breezy Umana MD RJViry/LK , 05:03 AM , 08:41 AM
== END 2017-12-04 17:20 | disposition home or self-care (01) ==
LOC: HDOC 12:58 → HDIC 12:58 → HDOC 17:20
PROVIDERS: ATTEND Surgery
DX: T82.868A Thrombosis due to vascular prosthetic devices, implants and grafts, initial encounter (principal); I12.0 Hypertensive chronic kidney disease with stage 5 chronic kidney disease or end stage renal disease; N18.6 End stage renal disease; E11.22 Type 2 diabetes mellitus with diabetic chronic kidney disease; Z79.4 Long term (current) use of insulin; Z99.2 Dependence on renal dialysis
CPT/HCPCS: 36901; 84132; 99152; J1644; J2250; J3010; Q9967

== ENCOUNTER 2017-12-25 07:52 | Observation (INO) | payer MEDICARE, MEDICAID ==
[~2017-12-25] VITALS: Ht 175.3 cm; Wt 131.9 kg
--- NOTE | 2017-12-25 08:42 | PD.VS.PN ---
Pre-operative Note Pre-operative diagnosis: Failed R UE HeRO Planned procedure: R UE access revision Interval History: Pt had HD yesterday Ready for surgery Labs: pending Blood: T&S Imaging: will make in OR Orders: NPO VANC 1g IV OCTOR Post-operative destination: PACU Operative site marked: Yes Consent: Informed consent has been obtained from Bonifacio Laguerre Jr. I have explained the procedure in detail and discussed the risks, benefits, and potential complications. All questions have been answered. Patient contact information: [phone] Breezy Umana MD Dec 25, 2017 08:42
[2017-12-25] MEDS ORDERED: POVIDONE IODINE 5% (ANTISEPSIS KIT) 4 APPLICATIONS EACH NARE PRN (08:45)
[2017-12-25] MEDS ORDERED: METOPROLOL TARTRATE 25 MG TAB PO PRN (08:45)
[2017-12-25] MEDS ORDERED: CHLORHEXIDINE GLUCONATE 2 % 1 PACK (2 CLOTHS) TOPICAL PRN (08:45)
[2017-12-25] MEDS ORDERED: LACTATED RINGER'S 1000 ML IV PRN (08:45)
[2017-12-25] MEDS: SODIUM CHLORID 0.9% 500 ML IV PRN ×2 (08:52→20:21)
[2017-12-25] MEDS ORDERED: INSULIN HUMAN REGULAR 1,000 UNITS/10 ML VIAL ONE (08:58)
[2017-12-25 09:32] LABS: BASOPHIL # 0.1 TH/MM3 (0-0.2); BASOPHIL % 1.1 % (0.0-2.0); EOSINOPHIL # 0.2 TH/MM3 (0-0.4); EOSINOPHIL % 3.7 % (0.0-4.0); HEMATOCRIT 39.2 % (39.0-51.0); HEMOGLOBIN 12.4 GM/DL (13.0-17.0); LYMPH % 45.2 % (9.0-44.0); LYMPHOCYTE # 2.2 TH/MM3 (1.0-4.8); MEAN CELL VOLUME 89.2 FL (80.0-100.0); MEAN CORPUSCULAR HEMOGLOBIN 28.2 PG (27.0-34.0); MEAN CORPUSCULAR HGB CONC 31.6 % (32.0-36.0); MEAN PLATELET VOLUME 9.1 FL (7.0-11.0); MONO % 10.2 % (0.0-8.0); MONOCYTE # 0.5 TH/MM3 (0-0.9); NEUT % 39.8 % (16.0-70.0); PLATELET COUNT 177 TH/MM3 (150-450); RED BLOOD COUNT 4.39 MIL/MM3 (4.50-5.90); RED CELL DISTRIBUTION WIDTH 16.7 % (11.6-17.2); WHITE BLOOD COUNT 4.9 TH/MM3 (4.0-11.0)
--- NOTE | 2017-12-25 09:32 | RADRPT ---
EXAM DATE/TIME: 12/25/2017 08:58 [facility] COMPARISON: CHEST SINGLE AP, September 23, 2017, 11:20. INDICATIONS : Evaluate for pneumonia, pneumothorax, and communicable disease. Preo for right arm stent revision. MEDICAL HISTORY : Renal failure, chronic. SURGICAL HISTORY : Dialysis port. Right upper extremity stent. ENCOUNTER: Initial ACUITY: 1 day PAIN SCORE: 0/10 LOCATION: Bilateral chest FINDINGS: A left chest dialysis catheter is stable in good position. There has been previous stenting of the ri ght subclavian vein and a joaquina catheter is also present on the right. There is slight asymmetric elev ation of the right diaphragm which is unchanged. Minimal stable parenchymal opacity at the right base . Cardiac contours are grossly stable. CONCLUSION: No significant interval change Jordan Fernandez MD on December 25, 2017 at 9:28 Board Certified Radiologist. This report was verified electronically.
[2017-12-25 09:38] LABS: BICARBONATE 22.7 MEQ/L (21.0-32.0); CALCIUM 9.5 MG/DL (8.5-10.1); CREATININE 9.86 MG/DL (0.60-1.30)
[2017-12-25 09:41] LABS: PROTHROMBIN TIME - PATIENT 10.5 SEC (9.8-11.6)
[2017-12-25] MEDS ORDERED: INSULIN HUMAN REGULAR 1,000 UNITS/10 ML VIAL SQ ONE (09:45)
[2017-12-25] MEDS ORDERED: HEPARIN SODIUM - IV 10,000 UNITS/10 ML VIAL ONE (10:55)
[2017-12-25] MEDS ORDERED: PROTAMINE SULFATE 50 MG/5 ML VIAL ONE (10:55)
[2017-12-25] MEDS ORDERED: HEPARIN-NS/PF INJ 500 ML ONE (10:55)
[2017-12-25] MEDS ORDERED: THROMBIN (TOPICAL) 20,000 UNIT SPRAY KIT ONE (10:55)
[2017-12-25] MEDS ORDERED: BUPIVACAINE HCL PF 0.5% 30 ML VIAL ONE (10:55)
[2017-12-25] MEDS ORDERED: VANCOMYCIN HCL 1000 MG VIAL ONE (11:00)
[2017-12-25] MEDS ORDERED: fentaNYL CITRATE 250 MCG/5 ML AMP ONE (11:04)
[2017-12-25] MEDS ORDERED: ONDANSETRON HCL 4 MG/2 ML VIAL IV ONE (12:00)
[2017-12-25] MEDS ORDERED: LIDOCAINE HCL 1% PF 5 ML SYRINGE OTHER ONE (12:00)
[2017-12-25] MEDS ORDERED: NEOSTIGMINE 5 MG/5 ML SYRINGE IV PUSH ONE (12:00)
[2017-12-25] MEDS ORDERED: ePHEDrine/NS 25 MG/5 ML SYRINGE IV ONE (12:00)
[2017-12-25] MEDS ORDERED: GLYCOPYRROLATE 1 MG/5 ML SYRINGE IV PUSH ONE (12:00)
[2017-12-25] MEDS ORDERED: PROPOFOL 200 MG/20 ML AMP IV ONE (12:00)
[2017-12-25] MEDS ORDERED: PHENYLEPHRINE HCL 10 MG/ML VIAL IV ONE (12:00)
[2017-12-25] MEDS ORDERED: SODIUM CHLOR 0.9% 250 ML INJ 500 ML IV ONE (12:00)
[2017-12-25] MEDS ORDERED: ROCURONIUM INJ 50 MG/5 ML SYRINGE IV PUSH ONE (12:00)
[2017-12-25] MEDS ORDERED: PHENYLEPH/NS 1000 MCG/10 ML SYR IV ONE (12:00)
[2017-12-25] MEDS ORDERED: IOHEXOL 300 INJ 50 ML IV ONE (13:08)
[2017-12-25] MEDS ORDERED: ACETAMINOPHEN 1000 MG/100 ML 100 ML IV ONE (13:39)
[2017-12-25] MEDS ORDERED: MORPHINE SULFATE 4 MG/ML INJ ONE (13:39)
--- NOTE | 2017-12-25 13:41 | EKG ---
Date Performed: 12/25/2017 Time Performed: 08:23:18 PTAGE: 72 years EKG: Sinus rhythm WITH FIRST DEGREE AV BLOCK WITH FREQUENT SUPRAVENTRICULAR PREMATURE COMPLEXES ABNORMAL ECG No signif icant change from prior electrocardiogram. PREVIOUS TRACING : 01/28/2017 07.03 DOCTOR: Jerman Fortune Interpretating Date/Time 12/25/2017 13:23:41
--- NOTE | 2017-12-25 14:03 | HHI.PR ---
cc: Breezy Umana MD Immediate Post Op Note Procedure Date: Dec 25, 2017 Pre Op Diagnosis: Central vein occlusion, ESRD and thrombosed access Post Op Diagnosis: Same Surgeon: Breezy Umana Indirect Sales Representative(s): None Procedure: R UE access revision (brachial artery to HeRO graft) Findings: venous hypertension + thrill and good radial signal after AVF revision Complications: none Specimen(s) removed: none Estimated blood loss: 500mL Anesthesia: General Drains: None Fluids: 800mL IVF Patient to: PACU Patient Condition: Good Implant/Devices: SEE IMPLANT LOG (if applicable) Date/Time of Procedure: SEE SURGICAL CARE RECORD Breezy Umana MD Dec 25, 2017 14:03
[2017-12-25] MEDS ORDERED: LACTULOSE SYRUP 20 GM/30 ML CUP PO PRN (14:15)
[2017-12-25] MEDS ORDERED: FUROSEMIDE 40 MG TAB PO SCH (14:15)
[2017-12-25] MEDS ORDERED: HYDROmorphone HCL 2 MG TAB PO PRN (14:15)
[2017-12-25] MEDS ORDERED: DEXTROSE 50% IN WATER 50 ML VIAL(D50) IV PUSH PRN (14:15)
[2017-12-25] MEDS ORDERED: BISACODYL 10 MG SUPP RECTAL PRN (14:15)
[2017-12-25] MEDS ORDERED: SENNOSIDES 8.6 MG TAB PO PRN (14:15)
[2017-12-25] MEDS ORDERED: GLUCAGON 1 MG/ML VIAL OTHER PRN (14:15)
[2017-12-25] MEDS: HEPARIN SODIUM - SQ 10,000 UNITS/ML VIAL SQ SCH ×2 (15:00→22:33)
[2017-12-25] MEDS ORDERED: DEXTROSE 50% IN WATER 50 ML SYRINGE IV ONE ×2 (15:00→16:00)
[2017-12-25] MEDS ORDERED: SODIUM CHLOR 0.9% 1000 ML INJ 1,000 ML IV PRN (15:17)
[2017-12-25] MEDS ORDERED: SODIUM CHLOR 0.9% 1000 ML INJ 1,000 ML OTHER PRN ×2 (15:17)
[2017-12-25] MEDS ORDERED: diphenhydrAMINE HCL 25 MG CAP PO PRN (15:30)
[2017-12-25] MEDS ORDERED: SODIUM CHLORIDE 0.9% FLUSH 10 ML FLUSH IV FLUSH PRN (15:30)
[2017-12-25] MEDS ORDERED: HEPARIN SODIUM - IV 10,000 UNITS/10 ML VIAL IV FLUSH PRN (15:30)
[2017-12-25] MEDS ORDERED: GELATIN 12 MM/7 MM FOAM TOP PRN (15:30)
[2017-12-25] MEDS ORDERED: DO NOT ADM ANY ANTICOAGULANT DRUGS PRN (15:30)
[2017-12-25] MEDS ORDERED: ACETAMINOPHEN 325 MG TAB PO PRN (15:30)
[2017-12-25] MEDS ORDERED: cloNIDine HCL 0.1 MG TAB PO PRN (15:30)
[2017-12-25] MEDS ORDERED: ONDANSETRON HCL 4 MG/2 ML VIAL IV PUSH PRN (15:30)
[2017-12-25] MEDS ORDERED: NITROGLYCERIN 0.4 MG SL 25 TABS/BTL SL PRN (15:30)
[2017-12-25] MEDS ORDERED: MANNITOL 12.5 GM/50 ML VIAL IV PRN (15:30)
[2017-12-25] MEDS ORDERED: HEPARIN SODIUM - IV 10,000 UNITS/10 ML VIAL PRN (15:30)
[2017-12-25] MEDS ORDERED: GENTAMICIN SULFATE 20 MG/2 ML VIAL OTHER PRN (15:30)
[2017-12-25 15:40] LABS: HEMATOCRIT 28.7 % (39.0-51.0); HEMOGLOBIN 9.5 GM/DL (13.0-17.0)
[2017-12-25] MEDS: INSULIN ASPART SUPPLEMENTAL SCALE SQ SCH ×2 (17:00→21:00)
--- NOTE | 2017-12-25 17:01 | MP ---
cc: Breezy Umana MD, Robert J MD DATE OF OPERATION: 12/25/2017 PREOPERATIVE DIAGNOSIS: Central vein occlusion end-stage renal disease, failed access. POSTOPERATIVE DIAGNOSIS: Central vein occlusion end-stage renal disease, failed access. PROCEDURE PERFORMED: Right upper extremity access revision (brachial artery to HeRO outflow graft with 6 mm PTFE). ATTENDING SURGEON: Breezy Umana MD ANESTHESIA: General. INDICATIONS: Mr. Laguerre is a gentleman with right upper extremity complex access troubles. He has a failed HeRO graft. He is taken to the operating room for a revision. Intraoperatively, it was found that the catheter portion of the HeRO was widely patent, but the graft portion could not be thrombectomized and as such a separate graft was placed in the subcutaneous tissue plane from the brachial artery. DETAILS OF PROCEDURE: Informed consent was obtained from the patient. He was taken to the operating room and placed supine on the operating table. An appropriate timeout was taken to ensure the patient's identity, the operative site and planned procedure. THE he administration of a gram of vancomycin was initiated prior to the skin incision and will be discontinued after a single preoperative dose. Vancomycin was chosen because of the patient's end-stage renal disease . Everyone in the room agreed with the timeout and we proceeded. His right arm, chest and neck were all prepped and draped in standard sterile fashion. His previous periclavicular incision was opened with a 10 blade, carried down through the subcutaneous tissue with electrocautery. Intense venous hypertension was encountered and this was controlled with suture ligature and Hemoclips as well as electrocautery. The coupling mechanism of the HeRO graft was identified and dissected free, as was the graft. The graft was transected with an 11 blade and multiple attempts were made to thrombectomize it with a #4 Mirta embolectomy catheter and only minimal inflow was obtained. The inflow end was oversewn with 4-0 Prolene and the outflow catheter was clamped with a Mirta soft jaw. A separate incision was made over the patient's antecubital and carried down through subcutaneous tissue with electrocautery. The right coronary artery was identified and dissected free for several centimeters. A tunnel was then created between these 2 incisions and a 6 mm PTFE was passed through this. The patient was systemically heparinized with 3000 units of IV heparin. Proximal and distal control of the brachial artery was obtained with Profunda clamps and a longitudinal arteriotomy was made with an 11 blade, extended with Cristopher scissors. The graft was spatulated and sewn end-to-side with running #5-0 Prolene suture. At the completion, it was flushed and noted to be hemostatic. There was a nice pulse in the graft and the graft was clamped. The graft was passed through the tunnel taking caution not to twist it and then the graft was sewn to the HeRO coupling mechanism in an end-to-end fashion with running 5-0 Prolene suture which was flushed and noted to be hemostatic. There was a nice thrill in the fistula. The fluoroscopy image was obtained, showed the catheter geometry sat nicely. The wound was infiltrated with Marcaine, spray thrombin was used. The wound was closed with 2-0 Polysorb, 3-0 Polysorb and 4-0 Monocryl. Sponge and needle counts were correct at the end of the case. I was present and scrubbed for the entire procedure. MD JENELLE Torres//alberto , 03:28 PM , 04:46 PM
[2017-12-25] MEDS: CALCIUM ACETATE 667 MG CAP PO SCH (18:00)
[2017-12-25] MEDS ORDERED: TERBUTALINE INJ 1 MG/ML AMP SQ PRN (18:30)
[2017-12-25] MEDS ORDERED: PHENYLEPHRINE INJ 40 MG in DEXTROSE 5% IN WATE 500 ML INJ 496 ML IV PRN ×2 (18:30)
[2017-12-25] MEDS: SEVELAMER CARBONATE 800 MG TAB PO SCH (19:12)
[2017-12-25] MEDS: MIDODRINE 5 MG TAB PO SCH (19:13)
[2017-12-25] MEDS ORDERED: ALBUMIN 5% INJ 250 ML IV ONE (19:45)
--- NOTE | 2017-12-25 19:46 | PD.CONS ---
[facility] Service Critical Care Medicine Consult Requested By Dr. Umana Reason for Consult perioperative hypotension Primary Care Physician No Primary Care Physician History of Present Illness This is a 72-year-old male with a history of end-stage renal disease on intermittent hemodialysis who has had problems recently with complex central vascular access for dialysis. He returns for revision of his dialysis access in his right upper extremity. In the recovery room, he was noted to be persistently hypotensive postanesthesia requiring a phenylephrine infusion. Despite emergence from anesthesia and gentle fluid hydration, he remained hypotensive with a mean arterial pressure of 55-60. Of note, in recent prior anesthetics, the patient has been hypotensive in PACU requiring phenylephrine infusion, but this usually resolves and 2-4 hours. In addition, the patient states his baseline blood pressure is usually 80-90 systolic. The patient is awake and alert when I evaluated him. He is completely asymptomatic. He denies any chest pain, shortness of breath, headache, nausea, vomiting, or any other symptoms. He even states that he is currently pain-free from his recent operation. Of note he does state that he has had intermittent hoarseness since his last anesthetic in early December and he relates this to the breathing tube from anesthesia. He denies any difficulty swallowing, breathing, persistent cough. His only symptom with regards to this is an intermittent hoarseness which is not present all the time, but is intermittent for at least a few minutes each day. The remainder of the review of systems is negative unless otherwise stated. Review of Systems Constitutional: DENIES: Fatigue, Fever, Chills Eyes: DENIES: Blurred vision, Eye pain, Vision loss Ears, nose, mouth, throat: COMPLAINS OF: Hoarseness, DENIES: Tinnitus, Hearing loss, Throat pain, Ear Pain Respiratory: DENIES: Cough, Hemoptysis, Sputum production, Shortness of breath Cardiovascular: DENIES: Chest pain, Palpitations, Syncope, Dyspnea on Exertion , Lower Extremity Edema, Orthopnea Gastrointestinal: DENIES: Abdominal pain, Diarrhea, Nausea, Vomiting Neurologic: DENIES: Headache, Localized weakness, Speech Problems Psychiatric: DENIES: Confusion Past Family Social History Allergies: Coded Allergies: No Known Allergies (Verified Allergy, Unknown, 12/24/17) Past Medical History ESRD HTN Past Surgical History R UE AVF with revisions and ultimately HeRO Reported Medications Percocet (Oxycodone-Acetaminophen) 5-325 mg Tab 1 Tab PO Q4H PRN Humalog Inj (Insulin Human Lispro) 1,000 Unit/10 Ml Vial 1-9 Units SQ ACHS sugars< 70,(0)units; sugars 150-199,(1)unit; sugars 200-249,(3)units; sugars 250-299,(5)units; sugars 300-349,(7)units; sugars more than 349,(9)units. Aspirin 81 Mg Chew 81 Mg CHEW DAILY Renvela (Sevelamer Carbonate) 800 Mg Tab 800 Mg PO TID Sensipar (Cinacalcet) 30 Mg Tab 30 Mg PO DAILY Lantus Inj (Insulin Glargine) 1,000 Unit/10 Ml Vial 10 Units SQ HS Pantoprazole (Pantoprazole Sodium) 40 Mg Tab 40 Mg PO DAILY Renal Vitamin (B-Complex W/ C & Folic Acid) 1 Cap 1 Cap PO DAILY If on dialysis, take after treatment. Calcium Acetate (Phosphate Binder) 667 Mg Tab 667 Mg PO TID Furosemide 40 Mg Tab 40 Mg PO SUTUTHSA Active Ordered Medications See MAR Family History Reviewed in chart and found to be noncontributory to his acute illness Social History Denies tobacco or EtOH Physical Exam Vital Signs Vital Signs Date Time Temp Pulse Resp B/P (MAP) Pulse Ox O2 Delivery O2 Flow Rate FiO2 12/25/17 19:30 97.9 79 16 110/60 (77) 100 Room Air 12/25/17 17:00 95 16 103/63 (76) 100 Nasal Cannula 3 12/25/17 16:45 96 15 96/52 (67) 100 Nasal Cannula 3 12/25/17 16:30 76 15 109/57 (74) 100 Nasal Cannula 3 12/25/17 16:15 71 14 105/56 (72) 100 Nasal Cannula 3 12/25/17 16:00 71 17 92/54 (67) 100 Nasal Cannula 3 12/25/17 15:45 83 15 82/45 (57) 100 Nasal Cannula 3 12/25/17 15:40 86 15 100/51 (67) 100 Nasal Cannula 3 12/25/17 15:35 86 15 72/40 (51) 100 Nasal Cannula 3 12/25/17 15:30 86 17 79/51 (60) 100 Nasal Cannula 3 12/25/17 15:15 86 17 93/51 (65) 100 Nasal Cannula 3 12/25/17 15:00 89 15 82/46 (58) 100 Nasal Cannula 3 12/25/17 14:45 96.5 73 15 154/87 (109) 100 Nasal Cannula 3 12/25/17 08:52 97.7 92 20 138/81 (100) 98 Physical Exam GENERAL: Obese male, lying in bed, no acute distress HEENT: Normocephalic. Atraumatic. Pupils equal, round, reactive, conjugate. Mucous membranes are moist NECK: Trachea is midline. There is no JVD. CHEST: Equal chest rise. Room air. CARDIOVASCULAR: Normal rate, regular rhythm. Frequent PACs. ABDOMEN: Soft, nontender, nondistended. No guarding. MUSCULOSKELETAL: Pulses 2+. No peripheral edema. Right upper extremity with fresh incision which is clean and dry, no evidence of hematoma NEUROLOGICAL: RASS 0. GCS 15. Follows commands in all 4 extremities. No focal deficits. Laboratory Laboratory Tests Test 12/25/17 09:05 12/25/17 15:15 White Blood Count 4.9 Red Blood Count 4.39 Hemoglobin 12.4 9.5 Hematocrit 39.2 28.7 Mean Corpuscular Volume 89.2 Mean Corpuscular Hemoglobin 28.2 Mean Corpuscular Hemoglobin Concent 31.6 Red Cell Distribution Width 16.7 Platelet Count 177 Mean Platelet Volume 9.1 Neutrophils (%) (Auto) 39.8 Lymphocytes (%) (Auto) 45.2 Monocytes (%) (Auto) 10.2 Eosinophils (%) (Auto) 3.7 Basophils (%) (Auto) 1.1 Neutrophils # (Auto) 2.0 Lymphocytes # (Auto) 2.2 Monocytes # (Auto) 0.5 Eosinophils # (Auto) 0.2 Basophils # (Auto) 0.1 CBC Comment DIFF FINAL Differential Comment Prothrombin Time 10.5 Prothromb Time International Ratio 1.0 Activated Partial Thromboplast Time 25.5 Blood Urea Nitrogen 43 Creatinine 9.86 Random Glucose 291 Calcium Level 9.5 Sodium Level 136 Potassium Level 4.5 Chloride Level 102 Carbon Dioxide Level 22.7 Anion Gap 11 Estimat Glomerular Filtration Rate 6 Result Diagram: 12/25/17 1515 12/25/17 0905 Assessment and Plan Assessment and Plan Assessment: 72yM with ESRD and highly complex vascular access anatomy, now POD 0 s/p revision of vascular access, course complicated by perioperative hypotension. Differential for his hypotension includes intraoperative under resuscitation, relative adrenal insufficiency due to chronic illness from end- stage renal disease, baseline hypertension with residual loss of vascular smooth muscle tone secondary to residual anesthetic. Much lower on the differential would be a cardiac cause such as ischemia, and the patient is clinically without any symptoms, his extremities are warm and well perfused. Think it is reasonable to check a random serum cortisol. We will also give slightly more fluid resuscitation in the form of albumin colloid. The patient is only on a very low-dose of phenylephrine, and we will continue this and wean as tolerated. I think it is reasonable in the very short time to also transition him to oral midodrine. Given the patient has a clinical history of similar complaints, and remains hypotensive at home, I do not see utility in checking serial cardiac enzymes, unless the patient's clinical status changes or he becomes toxic appearing. We will admit him to an ICU for very close monitoring in the early postoperative period given that he remains borderline hypotensive. Post-operative hypotension possible relative adrenal insufficiency Acute Intravascular hypovolemia - 250cc 5% albumin - phenylephrine to maintain end-organ perfusion, titrate for goal map > 65 mmHg. baseline systolic bp is 80s-90s, so this will be tolerable and acceptable for end-organ perfusion as well. - midodrine 10mg po q8h - send random serum cortisol - advance diet as tolerated Intermittent hoarseness - discussed with the patient and I would recommend waiting an additional 4-6 weeks post this most recent anesthetic, and if he continues to have intermittent hoarseness, would recommend ENT referral for evaluation and nasopharyngoscopy to evaluate for vocal cord apraxia and possible arytenoid injury. These are very rare causes of anesthetic/airway related complications, and this would be even rarer to be an intermittently occurring symptom, but if persistent, should be ruled out. - sore throat can be treated with prn lozenges. Dispo: - admit to ICU for close monitoring while hypotensive immediately post- operatively. If his hemodynamic problems resolve, he can still be safely discharged tomorrow, as long as the remainder of his discharge criteria are met. [facility] will follow along with you as long as patient remains in the ICU. Jack Mcdonough MD Dec 25, 2017 19:46
[2017-12-25] MEDS ORDERED: PHENYLEPHRINE HCL 10 MG/ML VIAL ONE (19:54)
[2017-12-25 21:00] VITALS: BP 118/59; PULSE 80; PULSE 84; RESP 19; TEMP 97.3; O2SAT 100
[2017-12-25] MEDS ORDERED: INSULIN DETEMIR 100 UNITS/ML VIAL SQ SCH (21:00)
[2017-12-25 21:29] VITALS: O2SAT 100
[2017-12-25 22:00] VITALS: PULSE 82
[2017-12-25] MEDS: DOCUSATE SODIUM 50 MG/SENNA 8.6 MG TAB PO SCH (22:33)
[2017-12-26] VITALS (10 sets, daily range): BP systolic 91–126; BP diastolic 54–66; PULSE 71–96; RESP 9–18; TEMP 97.6–98.7; O2SAT 95–99
[2017-12-26] MEDS ORDERED: HYDROCORTISONE SOD SUCCINATE 100 MG VIAL IV PUSH ONE (01:15)
[2017-12-26 05:02] LABS: HEMATOCRIT 33.4 % (39.0-51.0); HEMOGLOBIN 10.8 GM/DL (13.0-17.0); MEAN CELL VOLUME 88.5 FL (80.0-100.0); MEAN CORPUSCULAR HEMOGLOBIN 28.8 PG (27.0-34.0); MEAN CORPUSCULAR HGB CONC 32.5 % (32.0-36.0); MEAN PLATELET VOLUME 8.9 FL (7.0-11.0); PLATELET COUNT 150 TH/MM3 (150-450); RED BLOOD COUNT 3.77 MIL/MM3 (4.50-5.90); RED CELL DISTRIBUTION WIDTH 16.6 % (11.6-17.2); WHITE BLOOD COUNT 5.4 TH/MM3 (4.0-11.0)
[2017-12-26 05:26] LABS: BICARBONATE 21.9 MEQ/L (21.0-32.0); CALCIUM 9.2 MG/DL (8.5-10.1)
[2017-12-26 05:32] LABS: CREATININE 11.06 MG/DL (0.60-1.30)
[2017-12-26] MEDS: HEPARIN SODIUM - SQ 10,000 UNITS/ML VIAL SQ SCH (06:24)
[2017-12-26] MEDS: INSULIN ASPART SUPPLEMENTAL SCALE SQ SCH ×2 (08:00→13:07)
[2017-12-26] MEDS ORDERED: VITAMIN B CMPLX/VITC/FOLIC AC CAP PO SCH (09:00)
[2017-12-26] MEDS: MIDODRINE 5 MG TAB PO SCH ×2 (09:00→13:06)
[2017-12-26] MEDS ORDERED: PANTOPRAZOLE SOD 40 MG DELAYED RELEASE TAB PO SCH (09:00)
[2017-12-26] MEDS: CALCIUM ACETATE 667 MG CAP PO SCH ×2 (09:00→13:00)
[2017-12-26] MEDS: DOCUSATE SODIUM 50 MG/SENNA 8.6 MG TAB PO SCH (09:00)
[2017-12-26] MEDS ORDERED: ASPIRIN 81 MG CHEW TAB PO SCH (09:00)
[2017-12-26] MEDS ORDERED: CINACALCET HYDROCHLORIDE 30 MG TAB PO SCH (09:00)
[2017-12-26] MEDS: SEVELAMER CARBONATE 800 MG TAB PO SCH ×2 (09:00→13:00)
--- NOTE | 2017-12-26 09:18 | PD.VS.PN ---
Subjective POD #: 1 Procedure(s): R UE access revision (brachial artery to HeRO graft) Subjective/Hospital Course 72/M S/P R UE access revision Pt awake alert in NAD Phenylephrine infusion d/c last night- B/P stabilized Pt w/o CP/SOB Pt denied hand pain Pt with improved R UE swelling Palpable R radial pulse Audible thrill near R UE AVF Objective Vitals/I&O Date Time Temp Pulse Resp B/P (MAP) Pulse Ox O2 Delivery O2 Flow Rate FiO2 12/26/17 06:00 78 12/26/17 04:00 85 12/26/17 04:00 97.6 85 14 91/54 (66) 95 12/26/17 02:00 74 12/26/17 00:00 97.7 75 12 111/56 (74) 99 12/26/17 00:00 96 12/25/17 22:00 82 12/25/17 21:29 100 21 12/25/17 21:00 97.3 80 19 118/59 (78) 100 12/25/17 21:00 84 12/25/17 20:30 82 16 106/60 (75) 100 Room Air 12/25/17 20:15 88 17 106/66 (79) 100 Room Air 12/25/17 20:00 84 113/58 12/25/17 20:00 84 16 113/58 (76) 100 Room Air 12/25/17 19:45 86 16 105/58 (74) 100 Room Air 12/25/17 19:30 97.9 79 16 110/60 (77) 100 Room Air 12/25/17 19:00 92 15 112/55 (74) 95 Room Air 12/25/17 18:30 74 16 115/65 (82) 100 Room Air 12/25/17 18:00 82 16 112/57 (75) 100 Room Air 12/25/17 17:30 84 16 95/54 (68) 100 Nasal Cannula 3 12/25/17 17:00 95 16 103/63 (76) 100 Nasal Cannula 3 12/25/17 16:45 96 15 96/52 (67) 100 Nasal Cannula 3 12/25/17 16:30 76 15 109/57 (74) 100 Nasal Cannula 3 12/25/17 16:15 71 14 105/56 (72) 100 Nasal Cannula 3 12/25/17 16:00 71 17 92/54 (67) 100 Nasal Cannula 3 12/25/17 15:45 83 15 82/45 (57) 100 Nasal Cannula 3 12/25/17 15:40 86 15 100/51 (67) 100 Nasal Cannula 3 12/25/17 15:35 86 15 72/40 (51) 100 Nasal Cannula 3 12/25/17 15:30 86 17 79/51 (60) 100 Nasal Cannula 3 12/25/17 15:15 86 17 93/51 (65) 100 Nasal Cannula 3 12/25/17 15:00 89 15 82/46 (58) 100 Nasal Cannula 3 12/25/17 14:45 96.5 73 15 154/87 (109) 100 Nasal Cannula 3 12/26/17 12/26/17 12/26/17 07:00 15:00 23:00 Intake Total 360 ml Output Total 50 ml Balance 310 ml Exam: GENERAL: Pt alert in NAD SKIN: UE Warm and dry w/ motor intact HEAD: Normocephalic. EYES: No scleral icterus. No injection or drainage. NECK: Supple, trachea midline. No JVD or lymphadenopathy. CARDIOVASCULAR: SR on CM R UE w/ improved swelling Audible thrill near R UE AVF Palpable R/L radial pulses Provena wound vac in place R UE PermaCath to L Chest wall noted Laboratory Laboratory Tests Test 12/25/17 09:05 12/25/17 15:15 12/25/17 22:20 12/26/17 04:27 White Blood Count 4.9 5.4 Red Blood Count 4.39 3.77 Hemoglobin 12.4 9.5 10.8 Hematocrit 39.2 28.7 33.4 Mean Corpuscular Volume 89.2 88.5 Mean Corpuscular Hemoglobin 28.2 28.8 Mean Corpuscular Hemoglobin Concent 31.6 32.5 Red Cell Distribution Width 16.7 16.6 Platelet Count 177 150 Mean Platelet Volume 9.1 8.9 Neutrophils (%) (Auto) 39.8 Lymphocytes (%) (Auto) 45.2 Monocytes (%) (Auto) 10.2 Eosinophils (%) (Auto) 3.7 Basophils (%) (Auto) 1.1 Neutrophils # (Auto) 2.0 Lymphocytes # (Auto) 2.2 Monocytes # (Auto) 0.5 Eosinophils # (Auto) 0.2 Basophils # (Auto) 0.1 CBC Comment DIFF FINAL Differential Comment Prothrombin Time 10.5 Prothromb Time International Ratio 1.0 Activated Partial Thromboplast Time 25.5 Blood Urea Nitrogen 43 49 Creatinine 9.86 11.06 Random Glucose 291 131 Calcium Level 9.5 9.2 Sodium Level 136 137 Potassium Level 4.5 4.5 Chloride Level 102 104 Carbon Dioxide Level 22.7 21.9 Anion Gap 11 11 Estimat Glomerular Filtration Rate 6 6 Random Cortisol 7.8 Assessment and Plan Assessment: (1) ESRD (end stage renal disease) on dialysis Status: Chronic (2) AVF (arteriovenous fistula) Status: Acute Plan 72/M s/p L UE access revision Pt became hypotensive post operatively (asymptomatic) Phenylephrine infusion started and was d/c last night B/P stabilized This am pt w/o complaints and is w/ improved R UE swelling Audible thrill near R UE AVF noted Distal pulses palpable Pt w/o hand pain Plan Pt clear for d/c post HD Leave Provena wound vac in place Will remove wound vac in our out pt clinic on [facility] Discussed and reviewed post operative care and management w/ pt Arranged out pt f/u Eliane Rucker NP [facility] [phone] Discharge Planning today after HD Eliane Rucker Dec 26, 2017 09:18
--- NOTE | 2017-12-26 09:35 | PD.VS.DC ---
Discharge Summary Admission Date: Dec 25, 2017 at 14:06 Discharge Date: Dec 26, 2017 Admission Diagnosis: (1) ESRD (end stage renal disease) on dialysis (2) AVF (arteriovenous fistula) Discharge Diagnosis: (1) ESRD (end stage renal disease) on dialysis ICD Codes: N18.6 - End stage renal disease; Z99.2 - Dependence on renal dialysis Status: Chronic (2) AVF (arteriovenous fistula) ICD Codes: I77.0 - Arteriovenous fistula, acquired Status: Acute Brief History from admission 72/M with a hx of central vein occlusion, ESRD and thrombosed access Procedure(s): R UE access revision (brachial artery to HeRO graft) Significant Findings GENERAL: Pt alert in NAD SKIN: UE Warm and dry w/ motor intact HEAD: Normocephalic. EYES: No scleral icterus. No injection or drainage. NECK: Supple, trachea midline. No JVD or lymphadenopathy. CARDIOVASCULAR: SR on CM R UE w/ improved swelling Audible thrill near R UE AVF Palpable R/L radial pulses Provena wound vac in place R UE PermaCath to L Chest wall noted Laboratory Tests Test 12/25/17 09:05 12/25/17 15:15 12/25/17 22:20 12/26/17 04:27 Red Blood Count 4.39 MIL/MM3 (4.50-5.90) 3.77 MIL/MM3 (4.50-5.90) Hemoglobin 12.4 GM/DL (13.0-17.0) 9.5 GM/DL (13.0-17.0) 10.8 GM/DL (13.0-17.0) Mean Corpuscular Hemoglobin Concent 31.6 % (32.0-36.0) Lymphocytes (%) (Auto) 45.2 % (9.0-44.0) Monocytes (%) (Auto) 10.2 % (0.0-8.0) Blood Urea Nitrogen 43 MG/DL (7-18) 49 MG/DL (7-18) Creatinine 9.86 MG/DL (0.60-1.30) 11.06 MG/DL (0.60-1.30) Random Glucose 291 MG/DL (74-106) 131 MG/DL (74-106) Estimat Glomerular Filtration Rate 6 ML/MIN (>89) 6 ML/MIN (>89) Hematocrit 28.7 % (39.0-51.0) 33.4 % (39.0-51.0) Hospital Course: 72/M with a hx of a Central vein occlusion, ESRD and thrombosed access Pt S/P R UE access revision (brachial artery to HeRO graft) POD 0 Pt became hypotensive Phenylephrine infusion started d/c last night- B/P stabilized POD 1 72/M S/P R UE access revision Pt awake alert in NAD Phenylephrine infusion d/c last night- B/P stabilized Pt w/o CP/SOB Pt denied hand pain Pt with improved R UE swelling Palpable R radial pulse Audible thrill near R UE AVF Pt clear for d/c post HD Leave Provena wound vac in place Will remove wound vac in our out pt clinic on [facility] Discussed and reviewed post operative care and management w/ pt Arranged out pt f/u Allergies Coded Allergies Type Severity Reaction Last Updated Verified No Known Allergies Allergy Unknown 12/24/17 Yes Recent Impressions Chest X-Ray 12/25/17 0000 Signed Impressions: Service Date/Time: December 08:58 - CONCLUSION: No significant interval change Jordan Fernandez MD 12/24/17 12/24/17 12/25/17 12/25/17 12/26/17 12/26/17 06:00 18:00 06:00 18:00 06:00 18:00 Intake Total 800 ml 660 ml Output Total 500 ml 50 ml Balance 300 ml 610 ml Intake Oral 660 ml Other 800 ml Output Urine Total 50 ml Stool Total 0 ml Drainage Total 0 ml Estimated Blood Loss 500 ml Laboratory Tests Test 12/25/17 09:05 12/25/17 15:15 12/25/17 22:20 12/26/17 04:27 White Blood Count 4.9 TH/MM3 5.4 TH/MM3 Red Blood Count 4.39 MIL/MM3 3.77 MIL/MM3 Hemoglobin 12.4 GM/DL 9.5 GM/DL 10.8 GM/DL Hematocrit 39.2 % 28.7 % 33.4 % Mean Corpuscular Volume 89.2 FL 88.5 FL Mean Corpuscular Hemoglobin 28.2 PG 28.8 PG Mean Corpuscular Hemoglobin Concent 31.6 % 32.5 % Red Cell Distribution Width 16.7 % 16.6 % Platelet Count 177 TH/MM3 150 TH/MM3 Mean Platelet Volume 9.1 FL 8.9 FL Neutrophils (%) (Auto) 39.8 % Lymphocytes (%) (Auto) 45.2 % Monocytes (%) (Auto) 10.2 % Eosinophils (%) (Auto) 3.7 % Basophils (%) (Auto) 1.1 % Neutrophils # (Auto) 2.0 TH/MM3 Lymphocytes # (Auto) 2.2 TH/MM3 Monocytes # (Auto) 0.5 TH/MM3 Eosinophils # (Auto) 0.2 TH/MM3 Basophils # (Auto) 0.1 TH/MM3 CBC Comment DIFF FINAL Differential Comment Prothrombin Time 10.5 SEC Prothromb Time International Ratio 1.0 RATIO Activated Partial Thromboplast Time 25.5 SEC Blood Urea Nitrogen 43 MG/DL 49 MG/DL Creatinine 9.86 MG/DL 11.06 MG/DL Random Glucose 291 MG/DL 131 MG/DL Calcium Level 9.5 MG/DL 9.2 MG/DL Sodium Level 136 MEQ/L 137 MEQ/L Potassium Level 4.5 MEQ/L 4.5 MEQ/L Chloride Level 102 MEQ/L 104 MEQ/L Carbon Dioxide Level 22.7 MEQ/L 21.9 MEQ/L Anion Gap 11 MEQ/L 11 MEQ/L Estimat Glomerular Filtration Rate 6 ML/MIN 6 ML/MIN Random Cortisol 7.8 MCG/DL Orders Procedure Category Date Status Time Complete Blood Count LAB 12/25/17 Complete With Diff 08:05 Coag Profile LAB 12/25/17 Complete 08:05 Type And Screen BBK 12/25/17 Complete 08:05 Basic Metabolic Panel LAB 12/25/17 Complete (Bmp) 08:05 Electrocardiogram CAV 12/25/17 Resulted Chest, Single Ap RADDIAG 12/25/17 Resulted Lactated Ringer's MED 12/25/17 In Process 1000 Ml Inj (Lr 1000 M 08:45 Sodium Chlorid 0.9% MED 12/25/17 In Process 500 Ml Inj (Ns 500 M 08:45 Metoprolol Tartrate MED 12/25/17 In Process (Lopressor) 08:45 Povidone Iod 5% MED 12/25/17 In Process Antisepsis Kit 08:45 Chlorhexidine 2% MED 12/25/17 In Process Cloth (Chlorhexidine 08:45 Insulin Human Regular MED 12/25/17 Complete Inj (Novolin R Inj 08:58 Insulin Human Regular MED 12/25/17 Complete Inj (Novolin R Inj 09:45 Protamine Sulfate Inj MED 12/25/17 Complete (Protamine Sulfate 10:55 Heparin Inj (Heparin MED 12/25/17 Complete Inj) 10:55 Bupivacaine Pf 0.5% MED 12/25/17 Complete Inj (Marcaine Pf 0.5 10:55 Thrombin Top Etlan MED 12/25/17 Complete (Thrombin Top Etlan) 10:55 Heparin-Ns/Pf Inj MED 12/25/17 Complete (Heparin-Ns/Pf Inj) 10:55 Vancomycin Inj MED 12/25/17 Complete (Vancomycin Inj) 11:00 Fentanyl Inj MED 12/25/17 Complete (Fentanyl Inj) 11:04 Iohexol 300 Inj MED 12/25/17 Complete (Omnipaque 300 Inj) 13:08 Morphine Inj MED 12/25/17 Complete (Morphine Inj) 13:39 Acetaminophen 1000 MED 12/25/17 Complete Mg/100 Ml (Ofirmev 10 13:39 Place In Observation ADMITTING 12/25/17 Transmitted Code Status CODE 12/25/17 Transmitted 14:03 Vital Signs (Adult) BENNETT 12/25/17 Complete 14:03 Internet Marketing Executive / BENNETT 12/25/17 In Process Telemetry 14:03 Activity Oob Ad Tamiko BENNETT 12/25/17 In Process 14:03 Precautions BENNETT 12/25/17 In Process 14:03 ^ Vac Dressing To Be BENNETT 12/25/17 In Process Used 14:03 Diet Heart Healthy DIET 12/25/17 Transmitted Dinner Basic Metabolic Panel LAB 12/26/17 Complete (Bmp) 06:00 Cbc No Diff, Includes LAB 12/26/17 Complete Plts 06:00 Consult Nephrology CONS 12/25/17 Transmitted Aspirin Chew (Aspirin MED 12/26/17 In Process Chew) 09:00 Oxycodone (Roxicodone) MED 12/25/17 In Process 14:15 Hydromorphone MED 12/25/17 In Process (Dilaudid) 14:15 Heparin Inj (Heparin MED 12/25/17 In Process Inj) 15:00 Scd Bilateral/Knee BENNETT 12/25/17 In Process High 14:03 Docusate Sodium-Senna MED 12/25/17 In Process (Jaida-Colace) 21:00 Sennosides (Senokot) MED 12/25/17 In Process 14:15 Bisacodyl Supp MED 12/25/17 In Process (Dulcolax Supp) 14:15 Lactulose Liq MED 12/25/17 In Process (Lactulose Liq) 14:15 Vitamin B Cmplx-Vit MED 12/26/17 In Process C-Folic Ac (Nephroca 09:00 Calcium Acetate MED 12/25/17 In Process (Phoslo) 18:00 Cinacalcet (Sensipar) MED 12/26/17 In Process 09:00 Furosemide (Lasix) MED 12/25/17 In Process 14:15 Pantoprazole MED 12/26/17 In Process (Protonix) 09:00 Sevelamer (Renvela) MED 12/25/17 In Process 18:00 Blood Glucose Goal BENNETT 12/25/17 In Process (Criteria) 14:06 Hypoglycemia 70 Mg/Dl BENNETT 12/25/17 In Process Or < 14:[address]: Other BENNETT 12/25/17 In Process 14:06 Dextrose 50% In Claudia MED 12/25/17 In Process (Vial) Inj (D50w (Vi 14:15 Glucagon Inj MED 12/25/17 In Process (Glucagon Inj) 14:15 Insulin Aspart MED 12/25/17 In Process Supplemtl Scale 17:00 Insulin Detemir Inj MED 12/25/17 In Process (Levemir Inj) 21:00 Bedside Glucose [facility] 12/25/17 Complete Sds Pre Op Care [facility] 12/25/17 Complete Venipuncture [facility] 12/25/17 Complete (Hub Use Only)Inp Phy CONS 12/25/17 Transmitted Cons/Ref Blood Flow Rate [facility] 12/25/17 In Process 15:17 Dialysate Flow Rate [facility] 12/25/17 In Process 15:17 Dialyzer [facility] 12/25/17 In Process 15:17 Concentrate [facility] 12/25/17 In Process 15:17 Acid Concentrate [facility] 12/25/17 In Process 15:17 Length Of Dialysis [facility] 12/25/17 In Process 15:17 Frequency Of Dialysis [facility] 12/25/17 In Process 15:17 Dialysis Obtain [facility] 12/25/17 In Process 15:17 Needle Size [facility] 12/25/17 In Process 15:17 Dialysis Schedule [facility] 12/25/17 In Process 15:17 Resp Oxygen Shane C RSP 12/25/17 Logged Titrat 1-4 L Dialysis Weight [facility] 12/25/17 In Process 15:17 ^ Obtain As Needed [facility] 12/25/17 In Process 15:17 Sodium Chlor 0.9% MED 12/25/17 In Process 1000 Ml Inj (Ns 1000 M 15:17 Heparin Inj (Heparin MED 12/25/17 In Process Inj) 15:30 Sodium Chlor 0.9% MED 12/25/17 In Process 1000 Ml Inj (Ns 1000 M 15:17 Sodium Chlor 0.9% MED 12/25/17 In Process 1000 Ml Inj (Ns 1000 M 15:17 Mannitol Inj MED 12/25/17 In Process (Mannitol Inj) 15:30 Albumin 25% Inj MED 12/25/17 In Process (Albumin 25% Inj) 15:30 Sodium Chloride 0.9% MED 12/25/17 In Process Flush (Ns Flush) 15:30 Heparin Inj (Heparin MED 12/25/17 In Process Inj) 15:30 Gentamicin Inj MED 12/25/17 In Process (Gentamicin Inj) 15:30 Ondansetron Inj MED 12/25/17 In Process (Zofran Inj) 15:30 Acetaminophen MED 12/25/17 In Process (Tylenol) 15:30 Diphenhydramine MED 12/25/17 In Process (Benadryl) 15:30 Nitroglycerin Sl MED 12/25/17 In Process (Nitrostat Sl) 15:30 Clonidine (Catapres) MED 12/25/17 In Process 15:30 Gelatin 12 Mm/7 Mm MED 12/25/17 In Process Top (Gelfoam 12 Mm/7 15:30 Misc Nursing MED 12/25/17 In Process Information 15:30 Hgb & Hct LAB 12/25/17 Complete 15:21 Consult Feller Seam Operator CONS 12/25/17 Transmitted (Hub Use Only)Inp Phy CONS 12/25/17 Transmitted Cons/Ref Midodrine (Proamatine) MED 12/25/17 In Process 18:30 Cortisol LAB 12/25/17 Complete 18:17 Phenylephrine Inj MED 12/25/17 In Process (Neosynephrine Inj) 18:30 Terbutaline Inj MED 12/25/17 In Process (Brethine Inj) 18:30 Dextrose 50% In Claudia MED 12/25/17 Complete (Syr) Inj (D50w (Syr 16:00 Dextrose 50% In Claudia MED 12/25/17 Complete (Syr) Inj (D50w (Syr 15:00 Albumin 5% Inj MED 12/25/17 Complete (Albumin 5% Inj) 19:45 Phenylephrine Inj MED 12/25/17 Complete (Neosynephrine Inj) 19:54 Class Iv Pacu Ea 30 [facility] 12/25/17 Complete MIN General/Pacu [facility] 12/25/17 Complete Post Anesthesia Oxygen [facility] 12/25/17 Complete Chantal Hugger Machine [facility] 12/25/17 Complete Bedside Glucose [facility] 12/25/17 Complete Pacu [facility] 12/25/17 Complete Hourly Hydrocortisone Inj MED 12/26/17 Complete (Solucortef Inj) 01:15 Hydrocortisone Inj MED 12/26/17 In Process (Solucortef Inj) 10:00 Bag, Leg 32oz Sterile SPD 12/26/17 Logged Large Ea 04:43 Attending Discharge DISCHARGE 12/26/17 Transmitted Order Vital Signs Date Time Temp Pulse Resp B/P (MAP) Pulse Ox O2 Delivery O2 Flow Rate FiO2 12/26/17 06:00 78 12/26/17 04:00 85 12/26/17 04:00 97.6 85 14 91/54 (66) 95 12/26/17 02:00 74 12/26/17 00:00 97.7 75 12 111/56 (74) 99 12/26/17 00:00 96 12/25/17 22:00 82 12/25/17 21:29 100 21 12/25/17 21:00 97.3 80 19 118/59 (78) 100 12/25/17 21:00 84 12/25/17 20:30 82 16 106/60 (75) 100 Room Air 12/25/17 20:15 88 17 106/66 (79) 100 Room Air 12/25/17 20:00 84 113/58 12/25/17 20:00 84 16 113/58 (76) 100 Room Air 12/25/17 19:45 86 16 105/58 (74) 100 Room Air 12/25/17 19:30 97.9 79 16 110/60 (77) 100 Room Air 12/25/17 19:00 92 15 112/55 (74) 95 Room Air 12/25/17 18:30 74 16 115/65 (82) 100 Room Air 12/25/17 18:00 82 16 112/57 (75) 100 Room Air 12/25/17 17:30 84 16 95/54 (68) 100 Nasal Cannula 3 12/25/17 17:00 95 16 103/63 (76) 100 Nasal Cannula 3 12/25/17 16:45 96 15 96/52 (67) 100 Nasal Cannula 3 12/25/17 16:30 76 15 109/57 (74) 100 Nasal Cannula 3 12/25/17 16:15 71 14 105/56 (72) 100 Nasal Cannula 3 12/25/17 16:00 71 17 92/54 (67) 100 Nasal Cannula 3 12/25/17 15:45 83 15 82/45 (57) 100 Nasal Cannula 3 12/25/17 15:40 86 15 100/51 (67) 100 Nasal Cannula 3 12/25/17 15:35 86 15 72/40 (51) 100 Nasal Cannula 3 12/25/17 15:30 86 17 79/51 (60) 100 Nasal Cannula 3 12/25/17 15:15 86 17 93/51 (65) 100 Nasal Cannula 3 12/25/17 15:00 89 15 82/46 (58) 100 Nasal Cannula 3 12/25/17 14:45 96.5 73 15 154/87 (109) 100 Nasal Cannula 3 12/25/17 08:52 97.7 92 20 138/81 (100) 98 Discharge Condition: Good Discharge Disposition: Discharge Home Discharge Instructions: May resume your home medications You were prescribed a narcotic pain medication that may cause constipation- Take with an over the counter stool softener You were prescribed a narcotic pain medication that may cause drowsiness- No driving while taking this medication Activities as tolerated No heavy lifting (right upper extremity) over a gallon of milk for 2W No B/P readings or lab draws from your RIGHT upper extremity Leave Provena wound vac in place Will remove wound vac in our out pt clinic on [facility] Arranged out pt f/u Any questions or concerns: Call [facility] at [facility] [phone] Eliane Rucker Dec 26, 2017 09:35
[2017-12-26] MEDS ORDERED: HYDROCORTISONE SOD SUCCINATE 100 MG VIAL IV PUSH SCH (10:00)
[2017-12-26] MEDS: ALBUMIN 25% INJ 100 ML IV PRN (10:58)
--- NOTE | 2017-12-26 14:02 | PD.CONS ---
HPI Service Nephrology Consult Requested By Reason for Consult ESRD on HD Primary Care Physician No Primary Care Physician History of Present Illness This is a 72 y/o AAM patient admitted for RUE Access revision by Dr. Umana. A wound vac is in place. He was postoperatively hypotensive requiring phenylephrine temporarily, which has since been turned off. We dialyzed him today and removed 2L. PMH listed below includes HTN, BPH, DM II, GERD, and metabolic bone disease. The patient will be discharged later today, is not in distress. (Ana Hodgson) Review of Systems Constitutional: DENIES: Fatigue Musculoskeletal: COMPLAINS OF: Muscle aches, DENIES: Joint pain, Back pain Integumentary: DENIES: Abnormal pigmentation (Ana Hodgson) Past Family Social History Allergies: Coded Allergies: No Known Allergies (Verified Allergy, Unknown, 12/24/17) Past Medical History ESRD on HD MWF DM II HTN Metabolic Bone Disorder GERD Secondary Hyperparathyroidism of Renal Origin DVT in RUE BPH Past Surgical History AVF right arm Permcath Reported Medications Percocet (Oxycodone-Acetaminophen) 5-325 mg Tab 1 Tab PO Q4H PRN Humalog Inj (Insulin Human Lispro) 1,000 Unit/10 Ml Vial 1-9 Units SQ ACHS sugars< 70,(0)units; sugars 150-199,(1)unit; sugars 200-249,(3)units; sugars 250-299,(5)units; sugars 300-349,(7)units; sugars more than 349,(9)units. Aspirin 81 Mg Chew 81 Mg CHEW DAILY Renvela (Sevelamer Carbonate) 800 Mg Tab 800 Mg PO TID Sensipar (Cinacalcet) 30 Mg Tab 30 Mg PO DAILY Lantus Inj (Insulin Glargine) 1,000 Unit/10 Ml Vial 10 Units SQ HS Pantoprazole (Pantoprazole Sodium) 40 Mg Tab 40 Mg PO DAILY Renal Vitamin (B-Complex W/ C & Folic Acid) 1 Cap 1 Cap PO DAILY If on dialysis, take after treatment. Calcium Acetate (Phosphate Binder) 667 Mg Tab 667 Mg PO TID Furosemide 40 Mg Tab 40 Mg PO SUTUTHSA Active Ordered Medications Current Medications Medications (Trade) Dose Ordered Sig/Fabiola Route Start Time Stop Time Status Last Admin Lactated Ringer's 1,000 ml @ 30 mls/hr Q24H PRN IV 12/25/17 08:45 12/28/17 08:44 Sodium Chloride 500 ml @ 30 mls/hr [id number] PRN IV 12/25/17 08:45 12/28/17 08:44 12/25/17 08:52 (Lopressor) 25 mg [employer] PRN PO 12/25/17 08:45 12/28/17 08:44 (Betadine 5% Antisepsis Kit) 1 applic [employer] PRN EACH NARE 12/25/17 08:45 12/28/17 08:44 12/25/17 09:01 (Chlorhexidine 2% Cloth) 3 pack [employer] PRN TOPICAL 12/25/17 08:45 12/28/17 08:44 12/25/17 08:30 (Aspirin Chew) 81 mg DAILY PO 12/26/17 09:00 (Roxicodone) 5 mg Q4H PRN PO 12/25/17 14:15 (Dilaudid) 2 mg Q4H PRN PO 12/25/17 14:15 (Heparin Inj) 5,000 units Q8H SQ 12/25/17 15:00 12/26/17 06:24 (Jaida-Colace) 1 tab BID PO 12/25/17 21:00 12/25/17 22:33 (Senokot) 17.2 mg Q12H PRN PO 12/25/17 14:15 (Dulcolax Supp) 10 mg DAILY PRN RECTAL 12/25/17 14:15 (Lactulose Liq) 30 ml DAILY PRN PO 12/25/17 14:15 (Nephrocaps) 1 cap DAILY PO 12/26/17 09:00 (Phoslo) 667 mg TID PO 12/25/17 18:00 12/25/17 18:00 (Sensipar) 30 mg DAILY PO 12/26/17 09:00 (Lasix) 40 mg sututhsa PO 12/25/17 14:15 (Levemir Inj) 10 units HS SQ 12/25/17 21:00 (Protonix) 40 mg DAILY PO 12/26/17 09:00 (Renvela) 800 mg TID PO 12/25/17 18:00 12/25/17 19:12 (D50w (Vial) Inj) 50 ml UNSCH PRN IV PUSH 12/25/17 14:15 (Glucagon Inj) 1 mg UNSCH PRN OTHER 12/25/17 14:15 (NovoLOG SUPPLEMENTAL SCALE) 1 ACHS SLIDING SCALE SQ 12/25/17 17:00 12/26/17 13:07 Sodium Chloride 1,000 ml @ 0 mls/hr Q0M PRN OTHER 12/25/17 15:17 (Heparin Inj) 8,000 units UNSCH PRN IV FLUSH 12/25/17 15:30 Sodium Chloride 1,000 ml @ 200 mls/hr Q5H PRN IV 12/25/17 15:17 Sodium Chloride 1,000 ml @ 0 mls/hr Q0M PRN OTHER 12/25/17 15:17 (Mannitol Inj) 12.5 gm UNSCH PRN IV 12/25/17 15:30 12/26/17 10:57 Albumin Human 100 ml @ 60 mls/hr UNSCH PRN IV 12/25/17 15:30 12/26/17 10:58 (NS Flush) 5 ml UNSCH PRN IV FLUSH 12/25/17 15:30 (Heparin Inj) UNSCH PRN .XX 12/25/17 15:30 12/26/17 10:57 (Gentamicin Inj) 20 mg UNSCH PRN OTHER 12/25/17 15:30 12/26/17 10:57 (Zofran Inj) 4 mg UNSCH PRN IV PUSH 12/25/17 15:30 (Tylenol) 650 mg UNSCH PRN PO 12/25/17 15:30 (Benadryl) 25 mg UNSCH PRN PO 12/25/17 15:30 (Nitrostat Sl) 0.4 mg UNSCH PRN SL 12/25/17 15:30 (Catapres) 0.1 mg UNSCH PRN PO 12/25/17 15:30 (Gelfoam 12 Mm/7 Mm Top) 1 foam UNSCH PRN TOP 12/25/17 15:30 Miscellaneous Information ALL NURSING DEPARTME... UNSCH PRN .XX 12/25/17 15:30 12/26/17 15:29 (Proamatine) 10 mg TID PO 12/25/17 18:30 12/26/17 13:06 Phenylephrine HCl 40 mg/Dextrose 500 ml @ 30 mls/hr TITRATE PRN IV 12/25/17 18:30 12/25/17 20:00 (Brethine Inj) 1 mg UNSCH PRN SQ 12/25/17 18:30 (SoluCORTEF INJ) 50 mg Q8H IV PUSH 12/26/17 10:00 12/28/17 09:59 Family History Non contributory Social History Non smoking He is , lives in [place], [place] Ambulatory Full code Retired (Ana Hodgson) Physical Exam Vital Signs Vital Signs Date Time Temp Pulse Resp B/P (MAP) Pulse Ox O2 Delivery O2 Flow Rate FiO2 12/26/17 12:00 82 12/26/17 12:00 98.0 82 9 112/59 (76) 99 12/26/17 11:00 82 12/26/17 10:00 74 12/26/17 09:00 76 12/26/17 08:59 98 12/26/17 08:00 98.7 71 18 126/66 (86) 95 12/26/17 08:00 71 12/26/17 06:00 78 12/26/17 04:00 85 12/26/17 04:00 97.6 85 14 91/54 (66) 95 12/26/17 02:00 74 12/26/17 00:00 97.7 75 12 111/56 (74) 99 12/26/17 00:00 96 12/25/17 22:00 82 12/25/17 21:29 100 21 12/25/17 21:00 97.3 80 19 118/59 (78) 100 12/25/17 21:00 84 12/25/17 20:30 82 16 106/60 (75) 100 Room Air 12/25/17 20:15 88 17 106/66 (79) 100 Room Air 12/25/17 20:00 84 113/58 12/25/17 20:00 84 16 113/58 (76) 100 Room Air 12/25/17 19:45 86 16 105/58 (74) 100 Room Air 12/25/17 19:30 97.9 79 16 110/60 (77) 100 Room Air 12/25/17 19:00 92 15 112/55 (74) 95 Room Air 12/25/17 18:30 74 16 115/65 (82) 100 Room Air 12/25/17 18:00 82 16 112/57 (75) 100 Room Air 12/25/17 17:30 84 16 95/54 (68) 100 Nasal Cannula 3 12/25/17 17:00 95 16 103/63 (76) 100 Nasal Cannula 3 12/25/17 16:45 96 15 96/52 (67) 100 Nasal Cannula 3 12/25/17 16:30 76 15 109/57 (74) 100 Nasal Cannula 3 12/25/17 16:15 71 14 105/56 (72) 100 Nasal Cannula 3 12/25/17 16:00 71 17 92/54 (67) 100 Nasal Cannula 3 12/25/17 15:45 83 15 82/45 (57) 100 Nasal Cannula 3 12/25/17 15:40 86 15 100/51 (67) 100 Nasal Cannula 3 12/25/17 15:35 86 15 72/40 (51) 100 Nasal Cannula 3 12/25/17 15:30 86 17 79/51 (60) 100 Nasal Cannula 3 12/25/17 15:15 86 17 93/51 (65) 100 Nasal Cannula 3 12/25/17 15:00 89 15 82/46 (58) 100 Nasal Cannula 3 12/25/17 14:45 96.5 73 15 154/87 (109) 100 Nasal Cannula 3 Physical Exam Young appearing AAM sitting in bed, awake/alert no neuro deficit noted Lungs: clear in all newman CV: S1/S2, regular rate, no murmurs; wound vac right chest Abd: obese, soft, non tender normal bowel sounds Ext: ; trace edema bilateral lower extremities; right arm s/p AVF revision, incision without drainage, good thrill/bruit; no extremity edema Permcath left IJ Laboratory Laboratory Tests Test 12/25/17 15:15 12/25/17 22:20 12/26/17 04:27 Hemoglobin 9.5 10.8 Hematocrit 28.7 33.4 Random Cortisol 7.8 White Blood Count 5.4 Red Blood Count 3.77 Mean Corpuscular Volume 88.5 Mean Corpuscular Hemoglobin 28.8 Mean Corpuscular Hemoglobin Concent 32.5 Red Cell Distribution Width 16.6 Platelet Count 150 Mean Platelet Volume 8.9 Blood Urea Nitrogen 49 Creatinine 11.06 Random Glucose 131 Calcium Level 9.2 Sodium Level 137 Potassium Level 4.5 Chloride Level 104 Carbon Dioxide Level 21.9 Anion Gap 11 Estimat Glomerular Filtration Rate 6 (Ana Hodgson) Result Diagram: 12/26/1742612/26/17426 Imaging Last 72 hours Impressions Chest X-Ray 12/25/17 0000 Signed Impressions: Service Date/Time: December 08:58 - CONCLUSION: No significant interval change Jordan Fernandez MD (Ana Hodgson) Assessment and Plan Problem List: (1) ESRD (end stage renal disease) on dialysis ICD Codes: N18.6 - End stage renal disease; Z99.2 - Dependence on renal dialysis Status: Chronic Plan: MWF HD, had treatment today. 2L UF Has PermCath for HD use. Follows with Dr. Bang, goes to [facility] Stable for discharge High protein diet encouraged Advise binder compliance (2) AVF (arteriovenous fistula) ICD Codes: I77.0 - Arteriovenous fistula, acquired Status: Acute Plan: s/p revision to follow with vacular after discharge (3) DM (diabetes mellitus) type II controlled with renal manifestation ICD Codes: E11.29 - Type 2 diabetes mellitus with other diabetic kidney complication Status: Acute Plan: Maintain glucose 140-180 mg/dL. (Ana Hodgson) Assessment and Plan patient was seen and examined. Agree with above assessment and plan. (Roberth He MD) Ana Hodgson Dec 26, 2017 14:02 Roberth He MD Dec 26, 2017 15:17
== END 2017-12-26 15:14 | disposition home or self-care (01) ==
LOC: HCVO 07:52 → HSDI 14:06 → N03B 20:42
PROVIDERS: ADMIT Surgery; ATTEND Surgery
DX: I77.0 Arteriovenous fistula, acquired (principal); I12.0 Hypertensive chronic kidney disease with stage 5 chronic kidney disease or end stage renal disease; N18.6 End stage renal disease; I95.81 Postprocedural hypotension; E11.22 Type 2 diabetes mellitus with diabetic chronic kidney disease; N25.81 Secondary hyperparathyroidism of renal origin; E27.40 Unspecified adrenocortical insufficiency; E86.1 Hypovolemia; N40.0 Benign prostatic hyperplasia without lower urinary tract symptoms; K21.9 Gastro-esophageal reflux disease without esophagitis; Z99.2 Dependence on renal dialysis; Z79.4 Long term (current) use of insulin
CPT/HCPCS: 01844; 36415; 36832; 71045; 80048; 82533; 82948; 85014; 85018; 85025; 85027; 85610; 85730; 86850; 86900; 86901; 93005; 96372; 96374; 96375; C1757; G0257; G0378; J0131; J1580; J1644; J1720; J1815; J2150; J2270; J2370; J2405; J2710; J2720; J3010; J3370; J7040; J7050; J7060; Q9967; 90935; P9045; P9047

== ENCOUNTER 2018-05-27 13:37 | Inpatient (IN) ==
[2018-05-27] MEDS ORDERED: Acetaminophen 325 MG Tablet PO PRN (20:57)
[2018-05-27] MEDS ORDERED: Bisacodyl 10 MG Supp RECTAL PRN (20:57)
[2018-05-27] MEDS ORDERED: Heparin - SQ 10,000 UNITS/ML Vial SQ SCH (21:00)
[2018-05-27] MEDS ORDERED: Famotidine PF Inj 20 MG/2 ML Vial IV.PUSH SCH (21:00)
[2018-05-27] MEDS ORDERED: Vancomycin Inj 1,000 MG in Sodium Chlor 0.9% Inj 250 ML IV.SIG ONE (21:06)
[2018-05-27] MEDS ORDERED: Vancomycin Consult Pharmacy OTHER PRN (21:06)
[2018-05-27] MEDS ORDERED: Etomidate Inj 20 MG/10 ML Ampul IV.PUSH ONE (21:17)
[2018-05-27] MEDS ORDERED: Sodium Bicarbonate 8.4% Inj 50 MEQ/50 ML Syringe ONE (21:18)
[2018-05-27] MEDS ORDERED: Midazolam Inj 5 MG/ML 1 ML Vial ONE (21:18)
--- NOTE | 2018-05-27 21:58 | P.HPCC ---
History of Present Illness Primary Care Physician: UNKNOWN Chief Complaint: Septic shock History of Present Illness: Mr. Laguerre is a 73-year-old -[place] male with past medical history significant for end-stage renal disease on hemodialysis, hypertension, complicated vascular access, HeRO graft placement by Dr. Umana on 09/23/2017, revision and PTFE replacement 12/25/17. who presented to the [facility] with probable sepsis and shock. Dr. Umana was contacted and patient was accepted for transfer to CVICU in [facility]. I immediately evaluated the patient on arrival to CVICU. Patient is currently on BiPAP (transported on BiPAP) severely encephalopathic hardly wakes up to sternal rub, with a rapid shallow breathing. BiPAP settings 18/8, 60% FiO2. He is literally unresponsive and not protecting airway. Currently he is on Levophed at 20 mcg/min with a map 65-70. He is also on amiodarone for atrial fibrillation with RVR. Because of lack of airway protection, severe encephalopathy, septic shock and hypoxia I proceeded with endotracheal intubation. His glottic opening was completely occluded with thick secretions, several minutes of suctioning needed to clear the secretions prior to intubation. Postintubation Levophed had to be increased to 30 mcg/min, I also placed an arterial line. All cultures, routine labs and lactic acid pending at this time. I have started him on vancomycin and Zosyn. Discussed case with Dr. Umana extensively Patient was unable to provide any history, according to the RN who got report patient apparently had GI bleed, underwent EGD with cauterization of duodenal ulcer few days ago. Will avoid heparin for DVT prophylaxis. His postintubation ABG showed severe hypoxia with significant AA gradient, metabolic acidosis, and a hemoglobin of 7.6. Currently Levophed is increased to 30 mcg/min, I will transfuse 1 unit PRBC. Chest x-ray shows pulmonary edema will arrange for hemodialysis once his shock is improves. At this time he will not be able to tolerate either hemodialysis or even CVVH - Diagnosis (1) Septic shock (2) Acute hypoxemic respiratory failure (3) Acute metabolic encephalopathy (4) Arteriovenous graft infection (5) Atrial fibrillation with RVR (6) Pulmonary edema Inpatient Certification: I certify that the inpatient services were ordered in accordance with Medicare regulations governing the order. This includes certification that hospital inpatient services are reasonable and necessary and in the case of services not specified as inpatient-only under 42 CFR 419.22(n), that they are appropriately provided as inpatient services in accordance to with the 2-midnight benchmark under 43 CFR 412.3(e) Estimated Total Length of Stay (Days): 5 Plans for Post Hospital Care: Not yet determined Review of Systems unobtainable due to mental condition PMFSH - Medical / Surgical Hx Neg / Unobtainable Surgical History: Unable to Obtain - Medical History Medical History: Medical History (Last Updated 05/27/18 @ 22:09 by Corey Ortega MD) DM (diabetes mellitus) ESRD (end stage renal disease) on dialysis History of DVT (deep vein thrombosis) Hypertension Obesity - Tobacco History Smoking Status: Unknown if ever smoked - Alcohol History How Often Do You Have a Drink Containing Alcohol: Unable to Obtain - Substance Use History Substance History: Unable to Obtain Medications and Allergies Active Medications: Active Medications Acetaminophen (Tylenol) 650 mg PO Q6H PRN PRN Reason: PAIN 1-10 AND/OR FEVER >101F Al Hydroxide/Mg Hydroxide (Milk Of Shiraz Miranda) 30 ml PO Q12H PRN PRN Reason: Mild Constipation Albuterol (Albuterol Neb (Prn)) 2.5 mg NEB Q2HR NEB PRN PRN Reason: SHORTNESS OF BREATH/WHEEZING Albuterol (Duoneb Neb (Fabiola)) 1 ampul NEB Q6HR NEB FABIOLA Bisacodyl (Dulcolax Supp) 10 mg RECTAL DAILY PRN PRN Reason: SEVERE CONSITIPATION Chlorhexidine Gluconate (Chlorhexidine 2% Cloth) 3 pack TOPICAL DAILY@0400 FABIOLA Stop: 06/02/18 03:59 Chlorhexidine Gluconate (Chlorhexidine 2% Cloth) 3 pack TOPICAL DAILY@0400 PRN PRN Reason: Extra cloth needed Stop: 06/02/18 03:59 Famotidine (Pepcid Pf Inj) 20 mg IV.PUSH Q12HR FABIOLA Heparin Sodium (Porcine) (Heparin Inj) 5,000 units SQ Q12H FABIOLA Piperacillin/Tazobactam/Dextrose (Zosyn 2.25 Gm Premix) 50 mls @ 100 mls/hr IV.SIG Q8H FABIOLA Vancomycin HCl 1,750 mg/ (Sodium Chloride) 517.5 mls @ 250 mls/hr IV.SIG ONCE ONE Stop: 05/28/18 00:04 Lactulose (Lactulose Liq) 30 ml PO DAILY PRN PRN Reason: SEVERE CONSITIPATION Pharmacy Profile Note (Vancomycin Consult Pharmacy) 1 each OTHER UNSCH PRN PRN Reason: Pharmacy to dose Senna/Docusate Sodium (Jaida-Colace) 1 tab PO BID FABIOLA Sennosides (Senokot) 17.2 mg PO Q12H PRN PRN Reason: Moderate Constipation Sodium Chloride (Ns Flush) 2 ml IV.FLUSH BID FABIOLA Sodium Chloride (Ns Flush) 2 ml IV.FLUSH PRN PRN PRN Reason: FLUSH AFTER USING IV ACCESS Allergies Allergy/AdvReac Type Severity Reaction Status Date / Time No Known Allergies Allergy Unknown Uncoded 12/24/17 14:57 Results - Labs CBC & Chem 7: 05/27/18 22:35 05/27/18 22:35 Exam Vital signs: Vital Signs 05/27/18 20:45 Respiratory Rate 15 Pulse Oximetry 98 Intake & Output 05/27/18 05/27/18 05/28/18 06:59 18:59 06:59 Weight 126 kg Other: Weight On Admission 126 kg Narrative: GENERAL: 73-year-old obese -[place]ian male, unresponsive rapid shallow breathing on BiPAP HEENT: Normocephalic. Atraumatic. Pupils equal, round, reactive, BiPAP mask limits exam. On intubation glottic opening occluded with thick secretions NECK: Trachea is midline. There is no JVD. CHEST: On BiPAP 18/8 FiO2 60%. Rapid shallow breathing. Air entry markedly decreased with coarse rhonchi bilaterally CARDIOVASCULAR: Atrial fibrillation rate controlled, currently hypotensive on 20 mcg/min of Levophed. Heart sounds are distant ABDOMEN: Soft, nontender, nondistended. No guarding. MUSCULOSKELETAL: Pulses 2+. No peripheral edema. Right upper extremity incision extending to the right shoulder region well-healed NEUROLOGICAL: Patient is unresponsive hardly opens eyes to sternal rub intermittently moving extremities. Septic Shock Reassessment Septic shock perfusion: reassessment completed Caprini VTE Risk Assessment Caprini VTE Risk Assessment: Moderate/High Risk (score >= 2) Caprini Risk Assessment Model: Point Value = 1 Point Value = 2 Point Value = 3 Point Value = 5 Age 41-60 Minor surgery BMI > 25 kg/m2 Swollen legs Varicose veins or History of unexplained or recurrent spontaneous Oral contraceptives or hormone replacement Sepsis (< 1 month) Serious lung disease, including pneumonia (< 1 month) Abnormal pulmonary function Acute myocardial infarction Congestive heart failure (< 1 month) History of inflammatory bowel disease Medical patient at bed rest Age 61-74 Arthroscopic surgery Major open surgery (> 45 min) Laparoscopic surgery (> 45 min) Malignancy Confined to bed (> 72 hours) Immobilizing plaster cast Central venous access Age >= 75 History of VTE Family history of VTE Factor V Leiden Prothrombin [id number] Lupus anticoagulant Anticardiolipin antibodies Elevated serum homocysteine Heparin-induced thrombocytopenia Other congenital or acquired thrombophilia Stroke (< 1 month) Elective arthroplasty Hip, pelvis, or leg fracture Acute spinal cord injury (< 1 month) Prophylaxis Regimen: Total Risk Factor Score Risk Level Prophylaxis Regimen 0-1 Low Early ambulation 2 Moderate Order ONE of the following: *Sequential Compression Device (SCD) *Heparin 5000 units SQ BID 3-4 Higher Order ONE of the following medications: *Heparin 5000 units SQ TID *Enoxaparin/Lovenox 40 mg SQ daily (WT < 150 kg, CrCl > 30 mL/min) *Enoxaparin/Lovenox 30 mg SQ daily (WT < 150 kg, CrCl > 10-29 mL/min) *Enoxaparin/Lovenox 30 mg SQ BID (WT < 150 kg, CrCl > 30 mL/min) AND/OR *Sequential Compression Device (SCD) 5 or more Highest Order ONE of the following medications: *Heparin 5000 units SQ TID (Preferred with Epidurals) *Enoxaparin/Lovenox 40 mg SQ daily (WT < 150 kg, CrCl > 30 mL/min) *Enoxaparin/Lovenox 30 mg SQ daily (WT < 150 kg, CrCl > 10-29 mL/min) *Enoxaparin/Lovenox 30 mg SQ BID (WT < 150 kg, CrCl > 30 mL/min) AND *Sequential Compression Device (SCD) Assessment and Plan - Problem List (1) Septic shock Code(s): A41.9 - Sepsis, unspecified organism; R65.21 - Severe sepsis with septic shock Status: Acute (2) Acute hypoxemic respiratory failure Code(s): J96.01 - Acute respiratory failure with hypoxia Status: Acute (3) Acute metabolic encephalopathy Code(s): G93.41 - Metabolic encephalopathy Status: Acute (4) Arteriovenous graft infection Code(s): T82.7XXA - Infection and inflammatory reaction due to other cardiac and vascular devices, implants and grafts, initial encounter Status: Acute (5) Atrial fibrillation with RVR Code(s): I48.91 - Unspecified atrial fibrillation Status: Acute (6) Pulmonary edema Code(s): J81.1 - Chronic pulmonary edema Status: Acute - Assessment and Plan Plan: NEURO: Acute metabolic encephalopathy -Versed for sedation and ventilator synchrony, postintubation -Patient's unresponsiveness most likely secondary to severe sepsis and toxic metabolic encephalopathy -CT of the head if mentation not improving RESP: Acute hypoxemic and hypercarbic respiratory failure Pulmonary edema -PRVC/AC, PEEP 12, currently FiO2 is 100%, wean keeping oxygen saturation above 90% -Ventilator bundle. DuoNeb every 6 hours scheduled and as needed -Send sputum culture. Currently on vancomycin and Zosyn CV: Septic shock Metabolic acidosis Pulmonary edema Atrial fibrillation with RVR -He is in profound shock currently on 30 mcg/min of Levophed -Vasopressin added. Start IV albumin, stress dose steroids -No further fluid boluses due to pulmonary edema and severe hypoxia -A. fib rate is controlled, and converted to sinus rhythm now cannot anticoagulate due to history of recent GI bleed -We will discontinue amiodarone due to severe hypotension GI/HEME: Recent GI bleed Anemia requiring transfusion -N.p.o., IV Protonix -Due to recent GI bleed and hypotension transfuse 1 unit PRBC for hemoglobin of 7.6 -CBC is pending at this time : End-stage renal disease on hemodialysis HeRO graft placed 09/2017 -On-call nephrology consult requested -Given 2 A of bicarb for metabolic acidosis -We will need hemodialysis in a.m. if blood pressure stabilizes ID: Septic shock Probable HeRO graft infection -Broad-spectrum antibiotics with vancomycin and Zosyn -ID consult -Dr. Umana consulted for probable graft infection -Blood urine and sputum cultures ENDO: Type 2 diabetes -Sliding scale insulin -Stress dose steroids with hydrocortisone 100 mg IV every 8 hr PROPH: -Bilateral lower extremity SCDs. Avoid chemical DVT prophylaxis due to recent GI bleed. IV Protonix 40 mg every 12 LINES: -Patient has left IJ central line placed at [facility] -I have placed left radial arterial line CC time 90 min excluding procedure
[2018-05-27] MEDS ORDERED: Vancomycin Inj 1,750 MG in Sodium Chlor 0.9% Inj 500 ML IV.SIG ONE (22:00)
--- NOTE | 2018-05-27 22:36 | XR ---
EXAM DATE: 05/27/2018 10:22 PM EDT AGE/SEX: 73 years / Male INDICATIONS: Post intubation CLINICAL DATA: This is the patient's initial encounter. Patient reports that signs and symptoms have been present for 1 day and indicates a pain score of Nonresponsive. MEDICAL/SURGICAL HISTORY: None. None. COMPARISON: [facility] [place], CHEST SINGLE AP, 12/25/2017. . FINDINGS: Interval placement of ET tube with the tip in the right main bronchus, approximately 2 cm below the c enid. There is consolidation in the left lower lung with loss of delineation of the left hemidiaphra gm and patchy areas of opacity in the left midlung. Right lung is clear. Left internal jugular cathet er tip projects over the origin of the superior vena cava. CONCLUSION: Intubation of the right main bronchus with ET tube tip extending into centimeters beyond the kimberley. Electronically signed by: Clinton Gamble MD 05/27/2018 10:35 PM EDT
[2018-05-27] MEDS ORDERED: Dextrose 50% in Water 50 ML Vial IV.PUSH PRN (22:45)
[2018-05-27] MEDS: Midazolam 50 MG/50 ML Inj 50 MG/50 ML BAG IV.CONT PRN (23:04)
[2018-05-27 23:22] LABS: Hematocrit 23.8 % (39.0-51.0); Hemoglobin 7.9 gm/dL (13.0-17.0); Mean Corpuscular HGB Conc 33.3 % (32.0-36.0); Mean Corpuscular Hemoglobin 27.8 pg (27.0-34.0); Mean Corpuscular Volume 83.4 fL (80.0-100.0); Platelet Count 112 th/mm3 (150-450); Red Blood Count 2.85 mil/mm3 (4.50-5.90); Red Cell Distribution Width 18.3 % (11.6-17.2)
--- NOTE | 2018-05-27 23:31 | P.PCN ---
Date of procedure: 05/27/18 Pre-op diagnosis: Acute hypoxemic respiratory failure Post-op diagnosis: same Procedure: Emergency endotracheal intubation Patient severely hypoxemic, and septic shock. Currently on BiPAP 23/05. Rapid sequence intubation was initiated. Patient was appropriately positioned and was administered etomidate 20 mg IV, Versed 5 mg IV, rocuronium 50 mg IV. I entered the oropharynx with direct laryngoscopy MAC 4 blade and obtained a grade 2 view. Patient was intubated with an 8.0 ET tube on single attempt. ET tube placement confirmed by directly visualizing the tube passing through the vocal cords, air entry equal bilaterally and, end-tidal CO2 color change. Patient tolerated procedure well. Postprocedure chest x-ray is pending at this time Surgeon: Corey Ortega Condition: critical Disposition: ICU
--- NOTE | 2018-05-27 23:33 | P.PCN ---
Date of procedure: 05/27/18 Pre-op diagnosis: septic shock Post-op diagnosis: same Procedure: Left radial arterial line placement Patient remains hypotensive on high dose of Levophed. Full sterile and barrier precautions were used. The left radial region was prepped using chlorhexidine scrub and draped in sterile fashion. The introducer needle was inserted into the radial artery with good arterial flash obtained. A guidewire was advanced into the introducer needle. After this introducer needle removed and a 20- gauge 16 cm arterial line was introduced into the radial artery and good wave form obtained. The wire was removed and the catheter was sutured in place at 15 cm. A sterile central line dressing was placed over the catheter at the insertion site. The patient tolerated the procedure well. Surgeon: Corey Ortega Estimated blood loss (mL): 2 Condition: critical Disposition: ICU
[2018-05-27 23:35] LABS: Albumin 1.6 g/dL (3.4-5.0); Anion Gap 15 meq/L (5-15); Aspartate Aminotransferase 41 U/L (15-37); Blood Urea Nitrogen 68 mg/dL (7-18); Calcium 8.2 mg/dL (8.5-10.1); Carbon Dioxide 21.3 meq/L (21.0-32.0); Chloride 108 meq/L (98-107); Glomerular Filtration Rate 10 mL/min (>89); Glucose,Random 184 mg/dL (74-106); Potassium 4.4 meq/L (3.5-5.1); Sodium 144 meq/L (136-145)
[2018-05-27 23:36] LABS: Alanine Aminotransferase 30 U/L (12-78)
[2018-05-27 23:38] LABS: Alkaline Phosphatase 95 U/L (45-117); Total Protein 6.5 g/dL (6.4-8.2)
[2018-05-28] MEDS: Senna/Docusate Sodium 8.6/50 MG Tablet PO SCH ×2 (00:01→09:20)
[2018-05-28] MEDS: Albumin Human 25% Inj 100 ML IV.SIG SCH ×2 (00:01→15:34)
[2018-05-28] MEDS: Pantoprazole Inj 40 MG Vial IV.PUSH SCH ×2 (00:01→15:34)
[2018-05-28] MEDS: Vasopressin Inj 40 UNIT in Dextrose 5% in Water Inj 98 ML IV.CONT SCH ×4 (00:15→07:35)
[2018-05-28] MEDS: Insulin NovoLOG Aspart Correctional Sugar Inj SQ SCH ×3 (01:18→12:38)
[2018-05-28 03:36] LABS: ABG Base Excess -6.7 mmol/L (-2-2); ABG PCO2 39 mmHg (38-42); ABG PO2 377 mmHG (61-120)
[2018-05-28] MEDS ORDERED: Chlorhexidine Gluconate 2% 1 Pack (2 Cloths) TOPICAL PRN (04:00)
[2018-05-28] MEDS: Chlorhexidine Gluconate 2% 1 Pack (2 Cloths) TOPICAL SCH (04:30)
[2018-05-28 05:24] LABS: Baso # (Auto) 0.1 th/mm3 (0.0-0.2); Baso % (Auto) 0.6 % (0.0-2.0); Eos # (Auto) 0.1 th/mm3 (0.0-0.4); Eos % (Auto) 0.2 % (0.0-4.0); Hematocrit 22.3 % (39.0-51.0); Hemoglobin 7.5 gm/dL (13.0-17.0); Lymph # (Auto) 1.5 th/mm3 (1.0-4.8); Lymph % (Auto) 6.5 % (9.0-44.0); Mean Corpuscular HGB Conc 33.9 % (32.0-36.0); Mean Corpuscular Hemoglobin 27.8 pg (27.0-34.0); Mean Corpuscular Volume 82.1 fL (80.0-100.0); Mono # (Auto) 1.1 th/mm3 (0.0-0.9); Mono % (Auto) 4.9 % (0.0-8.0); Neut # (Auto) 20.3 th/mm3 (1.8-7.7); Neut % (Auto) 87.8 % (16.0-70.0); Platelet Count 103 th/mm3 (150-450); Red Blood Count 2.71 mil/mm3 (4.50-5.90); White Blood Count 23.1 th/mm3 (4.0-11.0)
[2018-05-28 05:39] LABS: Alanine Aminotransferase 30 U/L (12-78); Albumin 1.8 g/dL (3.4-5.0); Anion Gap 16 meq/L (5-15); Aspartate Aminotransferase 33 U/L (15-37); Blood Urea Nitrogen 72 mg/dL (7-18); Calcium 8.4 mg/dL (8.5-10.1); Carbon Dioxide 19.7 meq/L (21.0-32.0); Chloride 106 meq/L (98-107); Glomerular Filtration Rate 9 mL/min (>89); Glucose,Random 242 mg/dL (74-106); Magnesium 2.1 mg/dL (1.5-2.5); Potassium 4.9 meq/L (3.5-5.1); Sodium 142 meq/L (136-145)
[2018-05-28 05:40] LABS: Phosphorus 6.7 mg/dL (2.5-4.9)
[2018-05-28] MEDS: Hydrocortisone Sod Succinate 100 MG Vial IV.PUSH SCH ×4 (05:40→21:34)
[2018-05-28 05:42] LABS: Alkaline Phosphatase 96 U/L (45-117); Total Protein 6.7 g/dL (6.4-8.2)
--- NOTE | 2018-05-28 06:24 | XR ---
EXAM DATE: 05/28/2018 5:36 AM EDT AGE/SEX: 73 years / Male INDICATIONS: Shortness of breath, possible pulmonary disease. CLINICAL DATA: This is the patient's subsequent encounter. Patient reports that signs and symptoms h ave been present for 1 day and indicates a pain score of Nonresponsive. MEDICAL/SURGICAL HISTORY: None. None. COMPARISON: [facility] [place], CHEST 1V SINGLE AP, 05/27/2018. . FINDINGS: A single AP view of the chest demonstrates the endotracheal tube tip 2 cm from the kimberley. Nasogastri c tube tip in the region of the body the stomach. Left-sided central line. Low lung volumes noted. Pa tchy consolidation throughout the left lung. Right lung is clear. No effusions. Heart is normal in si ze. Appearance is stable. CONCLUSION: Unchanged consolidation scattered throughout the left lung. Electronically signed by: Clinton Melendez MD 05/28/2018 6:23 AM EDT
--- NOTE | 2018-05-28 06:42 | P.CONVS ---
History of Present Illness Service: vascular surgery Consult date: 05/28/18 Reason for Consult: sepsis, possible graft infection Primary Care Provider: UNKNOWN Chief Complaint: Septic shock History of Present Illness: 73 yo male well known to me with ESRD and multiple R LE access revisions. Most recently in Sep had a HeRO graft and then in December had a PTFE interpostion/ replacement jump graft from L BB AVF to prior HeRO. Has central vein occlusion. Presented to outside hospital with presumed sepsis. Transferred here last night and was unresponsive, on BIPAP and significant pressors. Intubated emergently on arrival and is currently sedated on 2 pressors. Review of Systems unobtainable due to endotracheal tube PMFSH - Medical History Medical History: Medical History (Last Reviewed 05/28/18 @ 06:38 by Breezy Umana MD) AVF (arteriovenous fistula) DM (diabetes mellitus) ESRD (end stage renal disease) on dialysis History of DVT (deep vein thrombosis) Hypertension Obesity Venous collateral circulation - Tobacco History Smoking Status: Unknown if ever smoked - Alcohol History How Often Do You Have a Drink Containing Alcohol: Unable to Obtain - Substance Use History Substance History: Unable to Obtain Medications and Allergies Active Medications: Active Medications Acetaminophen (Tylenol) 650 mg PO Q6H PRN PRN Reason: PAIN 1-10 AND/OR FEVER >101F Al Hydroxide/Mg Hydroxide (Milk Of Shiraz Liq) 30 ml PO Q12H PRN PRN Reason: Mild Constipation Albuterol (Albuterol Neb (Prn)) 2.5 mg NEB Q2HR NEB PRN PRN Reason: SHORTNESS OF BREATH/WHEEZING Albuterol (Duoneb Neb (Fabiola)) 1 ampul NEB Q6HR NEB FABIOLA Last Admin: 05/28/18 03:11 Dose: 1 ampul Bisacodyl (Dulcolax Supp) 10 mg RECTAL DAILY PRN PRN Reason: SEVERE CONSITIPATION Chlorhexidine Gluconate (Chlorhexidine 2% Cloth) 3 pack TOPICAL DAILY@0400 FABIOLA Stop: 06/02/18 03:59 Last Admin: 05/28/18 04:30 Dose: 3 pack Chlorhexidine Gluconate (Chlorhexidine 2% Cloth) 3 pack TOPICAL DAILY@0400 PRN PRN Reason: Extra cloth needed Stop: 06/02/18 03:59 Dextrose (D50w Vial) 50 ml IV.PUSH UNSCH PRN PRN Reason: PER HYPOGLYCEMIA PROTOCOL Glucagon (Glucagon Inj) 1 mg OTHER PRN PRN PRN Reason: for Hypoglycemia Protocol Hydrocortisone Sodium Succinate (Solucortef Inj) 100 mg IV.PUSH Q8HR [facility] Last Admin: 05/28/18 05:40 Dose: 100 mg Piperacillin/Tazobactam/Dextrose (Zosyn 2.25 Gm Premix) 50 mls @ 100 mls/hr IV.SIG Q8H [facility] Last Admin: 05/28/18 00:00 Dose: 100 mls/hr Vasopressin 40 unit/ Dextrose 100 mls @ 6 mls/hr IV.CONT CONT FABIOLA; Protocol Last Admin: 05/28/18 00:15 Dose: 0.04 units/min, 6 mls/hr Albumin Human (Flexbumin 25% Inj) 100 mls @ 60 mls/hr IV.SIG Q12H [facility] Last Admin: 05/28/18 00:01 Dose: 60 mls/hr Midazolam HCl (Versed Inj) 50 mg in 50 mls @ 2 mls/hr IV.CONT TITRATE PRN; Protocol PRN Reason: Per Protocol Last Admin: 05/27/18 23:04 Dose: 2 mg/hr, 2 mls/hr Norepinephrine Bitartrate 8 mg (/ Sodium Chloride) 250 mls @ 3.75 mls/hr IV.CONT TITRATE PRN; Protocol PRN Reason: See protocol Insulin Aspart (Novolog Insulin Correctional Sugar Inj) 0 unit SQ Q6HR [facility]; Protocol Last Admin: 05/28/18 01:18 Dose: 1 unit Lactulose (Lactulose Liq) 30 ml PO DAILY PRN PRN Reason: SEVERE CONSITIPATION Pantoprazole Sodium (Protonix Inj) 40 mg IV.PUSH Q12H [facility] Last Admin: 05/28/18 00:01 Dose: 40 mg Pharmacy Profile Note (Vancomycin Consult Pharmacy) 1 each OTHER UNSCH PRN PRN Reason: Pharmacy to dose Senna/Docusate Sodium (Jiada-Colace) 1 tab PO BID [facility] Last Admin: 05/28/18 00:01 Dose: 1 tab Sennosides (Senokot) 17.2 mg PO Q12H PRN PRN Reason: Moderate Constipation Sodium Chloride (Ns Flush) 2 ml IV.FLUSH BID [facility] Last Admin: 05/28/18 00:00 Dose: 2 ml Sodium Chloride (Ns Flush) 2 ml IV.FLUSH PRN PRN PRN Reason: FLUSH AFTER USING IV ACCESS Terbutaline Sulfate (Brethine Inj) 1 mg SQ UNSCH PRN PRN Reason: For Extravasation Allergies Allergy/AdvReac Type Severity Reaction Status Date / Time No Known Allergies Allergy Unknown Uncoded 12/24/17 14:57 Physical Exam Vital Signs / I&O: Vital Signs 05/27/18 20:35 05/27/18 20:45 05/27/18 21:00 Temperature 97.4 F L Pulse Rate 94 H 117 H Respiratory Rate 15 22 Blood Pressure 110/62 Pulse Oximetry 98 05/27/18 21:36 05/27/18 22:25 05/27/18 23:00 Temperature Pulse Rate 81 Respiratory Rate 16 19 Blood Pressure Pulse Oximetry 90 L 93 L 05/28/18 00:00 05/28/18 00:08 05/28/18 01:00 Temperature 97.6 F Pulse Rate 79 Respiratory Rate 17 19 16 Blood Pressure 115/44 L Pulse Oximetry 99 05/28/18 03:00 05/28/18 03:11 05/28/18 04:00 Temperature 97.7 F Pulse Rate 69 70 70 Respiratory Rate 18 16 Blood Pressure 99/46 L Pulse Oximetry 99 Intake & Output 05/27/18 05/27/18 05/28/18 06:59 18:59 06:59 Weight 126 kg Other: Weight On Admission 126 kg Neuro: intubated, sedated HEENT: edematous neck; trachea appears midline Heart: irreg rate Lungs: + BS bilat Extremities: R UE and shoulder incisions c/d/i, no erythema R UE markedly edematous, stable for months Laboratory Results - last 24 hr 05/27/18 05/27/18 05/27/18 21:55 22:35 22:35 WBC 25.0 H RBC 2.85 L Hgb 7.9 L Hct 23.8 L MCV 83.4 MCH 27.8 MCHC 33.3 RDW 18.3 H Plt Count 112 L MPV 9.0 Prelim Diff (Auto) Neut % (Auto) Lymph % (Auto) Logan % (Auto) Eos % (Auto) Baso % (Auto) Neut # (Auto) Lymph # (Auto) Logan # (Auto) Eos # (Auto) Baso # (Auto) Differential Comment Puncture Site Cancelled Patient Temperature Cancelled O2 Saturation Cancelled ABG pH Cancelled ABG pCO2 Cancelled ABG pO2 Cancelled ABG HCO3 Cancelled ABG O2 Content Cancelled ABG Base Excess Cancelled ABG Methemoglobin Cancelled Emmanuel Test Cancelled Hemoglobin Cancelled Carboxyhemoglobin Cancelled O2 Delivery Device Cancelled Liter Flow Cancelled Vent Setting Cancelled Inspired O2 Cancelled Critical Value Cancelled Sodium Potassium Chloride Carbon Dioxide Anion Gap BUN Creatinine Estimated GFR POC Glucose Random Glucose Lactic Acid Calcium Phosphorus Magnesium Total Bilirubin AST ALT Alkaline Phosphatase Ammonia Less than 10 L Total Protein Albumin Nasal Screen MRSA (PCR) Blood Type Blood Type Recheck Antibody Screen MTS Gel Crossmatch 05/27/18 05/27/18 05/27/18 22:35 22:35 22:50 WBC RBC Hgb Hct MCV MCH MCHC RDW Plt Count MPV Prelim Diff (Auto) Neut % (Auto) Lymph % (Auto) Logan % (Auto) Eos % (Auto) Baso % (Auto) Neut # (Auto) Lymph # (Auto) Logan # (Auto) Eos # (Auto) Baso # (Auto) Differential Comment Puncture Site Patient Temperature O2 Saturation ABG pH ABG pCO2 ABG pO2 ABG HCO3 ABG O2 Content ABG Base Excess ABG Methemoglobin Emmanuel Test Hemoglobin Carboxyhemoglobin O2 Delivery Device Liter Flow Vent Setting Inspired O2 Critical Value Sodium 144 Potassium 4.4 Chloride 108 H Carbon Dioxide 21.3 Anion Gap 15 BUN 68 H Creatinine 6.75 H Estimated GFR 10 L POC Glucose Random Glucose 184 H Lactic Acid 1.2 Calcium 8.2 L Phosphorus Magnesium 2.0 Total Bilirubin 0.6 AST 41 H ALT 30 Alkaline Phosphatase 95 Ammonia Total Protein 6.5 Albumin 1.6 L Nasal Screen MRSA (PCR) Mrsa detected Blood Type Blood Type Recheck Antibody Screen MTS Gel Crossmatch 05/28/18 05/28/18 05/28/18 00:49 00:54 03:13 WBC RBC Hgb Hct MCV MCH MCHC RDW Plt Count MPV Prelim Diff (Auto) Neut % (Auto) Lymph % (Auto) Logan % (Auto) Eos % (Auto) Baso % (Auto) Neut # (Auto) Lymph # (Auto) Logan # (Auto) Eos # (Auto) Baso # (Auto) Differential Comment Puncture Site Art line Patient Temperature 98.6 O2 Saturation 97 ABG pH 7.30 L ABG pCO2 39 ABG pO2 377 H ABG HCO3 19 L ABG O2 Content 11.1 L ABG Base Excess -6.7 L ABG Methemoglobin 1.9 Emmanuel Test Hemoglobin 7.4 L Carboxyhemoglobin 0.5 O2 Delivery Device Ventilator Liter Flow Vent Setting Comment Inspired O2 90 Critical Value No Sodium Potassium Chloride Carbon Dioxide Anion Gap BUN Creatinine Estimated GFR POC Glucose 199 H Random Glucose Lactic Acid Calcium Phosphorus Magnesium Total Bilirubin AST ALT Alkaline Phosphatase Ammonia Total Protein Albumin Nasal Screen MRSA (PCR) Blood Type B Positive Blood Type Recheck Required Antibody Screen Negative MTS Gel Crossmatch See Detail 05/28/18 05/28/18 05/28/18 04:25 04:25 06:11 WBC 23.1 H RBC 2.71 L Hgb 7.5 L Hct 22.3 L MCV 82.1 MCH 27.8 MCHC 33.9 RDW 18.0 H Plt Count 103 L MPV 8.0 Prelim Diff (Auto) Slide review pending Neut % (Auto) 87.8 H Lymph % (Auto) 6.5 L Logan % (Auto) 4.9 Eos % (Auto) 0.2 Baso % (Auto) 0.6 Neut # (Auto) 20.3 H Lymph # (Auto) 1.5 Logan # (Auto) 1.1 H Eos # (Auto) 0.1 Baso # (Auto) 0.1 Differential Comment . Puncture Site Patient Temperature O2 Saturation ABG pH ABG pCO2 ABG pO2 ABG HCO3 ABG O2 Content ABG Base Excess ABG Methemoglobin Emmanuel Test Hemoglobin Carboxyhemoglobin O2 Delivery Device Liter Flow Vent Setting Inspired O2 Critical Value Sodium 142 Potassium 4.9 Chloride 106 Carbon Dioxide 19.7 L Anion Gap 16 H BUN 72 H Creatinine 7.03 H Estimated GFR 9 L POC Glucose 231 H Random Glucose 242 H Lactic Acid Calcium 8.4 L Phosphorus 6.7 H Magnesium 2.1 Total Bilirubin 0.6 AST 33 ALT 30 Alkaline Phosphatase 96 Ammonia Total Protein 6.7 Albumin 1.8 L Nasal Screen MRSA (PCR) Blood Type Blood Type Recheck Antibody Screen MTS Gel Crossmatch Impressions Chest X-Ray 05/27/18 20:57 CONCLUSION: Intubation of the right main bronchus with ET tube tip extending into centimeters beyond the kimberley. Chest X-Ray 05/28/18 05:00 CONCLUSION: Unchanged consolidation scattered throughout the left lung. Assessment and Plan - Assessment (1) Septic shock Code(s): A41.9 - Sepsis, unspecified organism; R65.21 - Severe sepsis with septic shock Status: Acute - Plan 73 yo with ESRD and on HD s/p multiple R UE AVF revisions for central vein occlusion. Presented in presumed septic shock of unclear etiology 1. f/u cultures - blood and sputum 2. R UE duplex looking for fluid around graft 3. TTE 4. continue antibiotics, pressor support 5. will discuss more with ICU team. Could have R UE AVG excision if thought to be source but clearly would be ideal to wean pressors as much as possible. Arm clinically doesn't look infected Breezy Umana MD FACS RPVI [employer] [facility] - Heart and Vascular Surgery at [facility] [phone]
[2018-05-28] MEDS: Piperacil/Tazo 2.25 GM Premix 50 ML IV.SIG SCH ×4 (06:52→21:34)
[2018-05-28] MEDS ORDERED: AMIKACIN IV.SIG ONE (07:05)
[2018-05-28] MEDS ORDERED: SODIUM CHLOR 0.9% IV.SIG ONE (07:05)
[2018-05-28] MEDS: Norepinephrine Inj 8 MG in Sodium Chlor 0.9% Inj 242 ML IV.CONT PRN ×3 (07:36→20:13)
[2018-05-28 08:38] LABS: VBG Base Excess -8.6 mmol/L (-2-2); VBG Blood Gas Oxygen Content 8.6 Vol % (9.0-17.0); VBG PCO2 45 mmHG (44-48); VBG PH 7.22 (7.360-7.400); VBG PO2 46 mmHG (35-40)
[2018-05-28 09:00] LABS: Burr Cells 1+; Lymphocytes 1 % (9-44); Metamyelocytes 1 % (0-1); Monocytes 1 % (0-8); Myelocytes 1 % (0-0); Ovalocytes 1+; Tallied Nucleated RBC 1 (0-0); Target Cells 1+
[2018-05-28 09:01] LABS: Acanthocytes Occ; Platelet Morphology Normal (Normal); Toxic Granulation 2+
[2018-05-28] MEDS ORDERED: Phenylephrine/NS 1000 MCG/10ML Syringe IV.PUSH ONE (10:50)
[2018-05-28] MEDS ORDERED: Sodium Chlor 0.9% Inj 500 ML IV.SIG ONE (10:50)
--- NOTE | 2018-05-28 11:12 | P.PNVS ---
- Pre-operative Note Planned Procedure: Excision of R UE AVG/HeRO, drainage of arm abscess Interval History: Pt intubated, sedated, on pressors Labs: WBC 23.1 th/mm3 (4.0-11.0) H 05/28/18 04:25 RBC 2.71 mil/mm3 (4.50-5.90) L 05/28/18 04:25 Hgb 7.5 gm/dL (13.0-17.0) L 05/28/18 04:25 Hct 22.3 % (39.0-51.0) L 05/28/18 04:25 MCV 82.1 fL (80.0-100.0) 05/28/18 04:25 MCH 27.8 pg (27.0-34.0) 05/28/18 04:25 MCHC 33.9 % (32.0-36.0) 05/28/18 04:25 RDW 18.0 % (11.6-17.2) H 05/28/18 04:25 Plt Count 103 th/mm3 (150-450) L 05/28/18 04:25 MPV 8.0 fL (7.0-11.0) 05/28/18 04:25 Sodium 142 meq/L (136-145) 05/28/18 04:25 Potassium 4.9 meq/L (3.5-5.1) 05/28/18 04:25 Chloride 106 meq/L (98-107) 05/28/18 04:25 Carbon Dioxide 19.7 meq/L (21.0-32.0) L 05/28/18 04:25 Anion Gap 16 meq/L (5-15) H 05/28/18 04:25 BUN 72 mg/dL (7-18) H 05/28/18 04:25 Random Glucose 242 mg/dL (74-106) H 05/28/18 04:25 Calcium 8.4 mg/dL (8.5-10.1) L 05/28/18 04:25 Blood: T&C 2U PRBC EKG: a-fib Imaging: ITS Impressions Chest X-Ray 05/28/18 05:00 CONCLUSION: Unchanged consolidation scattered throughout the left lung. Orders: NPO already Post-operative Destination: [facility]ICU Operative site marked: Yes Consent: Informed consent has been obtained from Bonifacio Laguerre JR. I have explained the procedure in detail and discussed the risks, benefits, and potential complications. All questions have been answered. Patient Contact Information: Discussed the procedure with the patient's . She understands how ill he is and the significant risks of the procedure. Also discussed case with Dr. Mcdonough. We both agree that source control is paramount. To OR. Operative site marked. : [phone]
--- NOTE | 2018-05-28 11:55 | US ---
EXAM DATE: 05/28/2018 11:31 AM EDT AGE/SEX: 73 years / Male INDICATIONS: Right upper extremity swelling s/p dialysis on Friday. Evaluate for fluid around A/V graft. CLINICAL DATA: This is the patient's initial encounter. Patient reports that signs and symptoms have been present for 2 days and indicates a pain score of Nonresponsive. MEDICAL/SURGICAL HISTORY: Diabetes. Hypertension. Diabetes. End stage renal disease on dialy sis. Venous collateral circulation. Obesity. . Multiple A/V dialysis graft revisions. COMPARISON: No prior exams available for comparison. FINDINGS: There is a right upper extremity AV (Hero) graft/catheter. Proximal brachial artery anastomosis appea rs patent. Catheter extends beyond the subclavian vein to the SVC. There is echogenic likely adherent thrombus in the proximal graft just beyond the arterial anastomosis to the mid upper extremity level . There is complex perigraft fluid most prominently at the shoulder and chest wall measuring up to 3. 5 x 1.8 cm. CONCLUSION: 1. Right upper extremity AV (Hero) graft/catheter. 2. Small amount of nonocclusive thrombus in the proximal graft just beyond the radial artery anastom osis to the mid upper extremity level. 3. Complex perigraft fluid most prominently near the shoulder and chest wall measuring up to 3.5 x 1 .8 cm. This most likely reflects perigraft hematoma although abscess cannot be excluded in the [facility] clinical setting. Electronically signed by: Piter Brooks MD 05/28/2018 11:53 AM EDT
--- NOTE | 2018-05-28 12:06 | P.CONID ---
History of Present Illness Service: ID Consult date: 05/28/18 Requesting Physician: Corey Ortega Reason for Consult: sepsis Primary Care Provider: UNKNOWN Chief Complaint: Septic shock History of Present Illness: 73 yo M sedated int'd on vent unable to provide history History obtained form @ b/s and other providers Pt has diabetic nephropahty resulted into ESRD He has a HD graft extending to R atrium put by Dr Umana HIs told me that pt required multiple surgeries on this graft and his RUE stayed swollen They rashed him to [facility] on 11/08 blood clx are + for MRSA per [facility] He was transferred last night to [place] for graft surgery US showed complex perigraft fluid most prominently near the shoulder and chest wall measuring up to 3.5 x 1.8 cm, perigraft hematoma vs abscess Pt is quite sick, hypotensive, requires multiple pressors Last attempt tot dyalyse pt thru his graft was on Fri and failed and he has R groin Vascath Blood clx 05/22 10/07 MRSA Blood 05/28 coag + Staph 10/06 wound culture E.coli 05/22 panS PMH: DM, HTN, ESRD, BPH PSH: AV graft placement in 12/21 required revisions Fam hx: non contributory to curretn issue Review of Systems unobtainable due to endotracheal tube PMFSH - Medical History Medical History: Medical History (Last Updated 05/28/18 @ 12:44 by Raya Morgan MD) Hemodialysis access, AV graft (Acute) AVF (arteriovenous fistula) DM (diabetes mellitus) ESRD (end stage renal disease) on dialysis History of DVT (deep vein thrombosis) Hypertension Obesity Venous collateral circulation - Social History I have reviewed the patient's Social History: Yes - Tobacco History Smoking Status: Unknown if ever smoked - Alcohol History How Often Do You Have a Drink Containing Alcohol: Unable to Obtain - Substance Use History Substance History: Unable to Obtain Medications and Allergies Active Medications: Active Medications Acetaminophen (Tylenol) 650 mg PO Q6H PRN PRN Reason: PAIN 1-10 AND/OR FEVER >101F Al Hydroxide/Mg Hydroxide (Milk Of Magnesia Liq) 30 ml PO Q12H PRN PRN Reason: Mild Constipation Albuterol (Albuterol Neb (Prn)) 2.5 mg NEB Q2HR NEB PRN PRN Reason: SHORTNESS OF BREATH/WHEEZING Albuterol (Duoneb Neb (Fabiola)) 1 ampul NEB Q6HR NEB [facility] Last Admin: 05/28/18 03:11 Dose: 1 ampul Bisacodyl (Dulcolax Supp) 10 mg RECTAL DAILY PRN PRN Reason: SEVERE CONSITIPATION Chlorhexidine Gluconate (Chlorhexidine 2% Cloth) 3 pack TOPICAL DAILY@0400 F[facility]A Stop: 06/02/18 03:59 Last Admin: 05/28/18 04:30 Dose: 3 pack Chlorhexidine Gluconate (Chlorhexidine 2% Cloth) 3 pack TOPICAL DAILY@0400 PRN PRN Reason: Extra cloth needed Stop: 06/02/18 03:59 Dextrose (D50w Vial) 50 ml IV.PUSH UNSCH PRN PRN Reason: PER HYPOGLYCEMIA PROTOCOL Glucagon (Glucagon Inj) 1 mg OTHER PRN PRN PRN Reason: for Hypoglycemia Protocol Hydrocortisone Sodium Succinate (Solucortef Inj) 100 mg IV.PUSH Q8HR [facility] Last Admin: 05/28/18 05:40 Dose: 100 mg Piperacillin/Tazobactam/Dextrose (Zosyn 2.25 Gm Premix) 50 mls @ 100 mls/hr IV.SIG Q8H [facility] Last Infusion: 05/28/18 07:37 Dose: Infused Vasopressin 40 unit/ Dextrose 100 mls @ 6 mls/hr IV.CONT CONT FABIOLA; Protocol Last Admin: 05/28/18 07:35 Dose: 0.04 units/min, 6 mls/hr Albumin Human (Flexbumin 25% Inj) 100 mls @ 60 mls/hr IV.SIG Q12H [facility] Last Infusion: 05/28/18 01:30 Dose: Infused Midazolam HCl (Versed Inj) 50 mg in 50 mls @ 2 mls/hr IV.CONT TITRATE PRN; Protocol PRN Reason: Per Protocol Last Titration: 05/28/18 06:43 Dose: 5 mg/hr, 5 mls/hr Norepinephrine Bitartrate 8 mg (/ Sodium Chloride) 250 mls @ 3.75 mls/hr IV.CONT TITRATE PRN; Protocol PRN Reason: See protocol Last Admin: 05/28/18 07:36 Dose: 20 mcg/min, 37.5 mls/hr Epinephrine HCl 2 mg/ Dextrose 250 mls @ 22.5 mls/hr IV.CONT TITRATE PRN; Protocol PRN Reason: Per Protocol Last Admin: 05/28/18 09:20 Dose: 3 mcg/min, 22.5 mls/hr Insulin Aspart (Novolog Insulin Correctional Sugar Inj) 0 unit SQ Q6HR [facility]; Protocol Last Admin: 05/28/18 06:38 Dose: 3 unit Lactulose (Lactulose Liq) 30 ml PO DAILY PRN PRN Reason: SEVERE CONSITIPATION Pantoprazole Sodium (Protonix Inj) 40 mg IV.PUSH Q12H [facility] Last Admin: 05/28/18 00:01 Dose: 40 mg Pharmacy Profile Note (Vancomycin Consult Pharmacy) 1 each OTHER UNSCH PRN PRN Reason: Pharmacy to dose Senna/Docusate Sodium (Jaida-Colace) 1 tab PO BID [facility] Last Admin: 05/28/18 09:20 Dose: Not Given Sennosides (Senokot) 17.2 mg PO Q12H PRN PRN Reason: Moderate Constipation Sodium Chloride (Ns Flush) 2 ml IV.FLUSH BID [facility] Last Admin: 05/28/18 09:20 Dose: 2 ml Sodium Chloride (Ns Flush) 2 ml IV.FLUSH PRN PRN PRN Reason: FLUSH AFTER USING IV ACCESS Terbutaline Sulfate (Brethine Inj) 1 mg SQ UNSCH PRN PRN Reason: For Extravasation Allergies Allergy/AdvReac Type Severity Reaction Status Date / Time No Known Allergies Allergy Unknown Uncoded 12/24/17 14:57 Exam Vital signs: Vital Signs 05/27/18 20:35 05/27/18 20:45 05/27/18 21:00 Temperature 97.4 F L Pulse Rate 94 H 117 H Respiratory Rate 15 22 Blood Pressure 110/62 Pulse Oximetry 98 05/27/18 21:36 05/27/18 22:25 05/27/18 23:00 Temperature Pulse Rate 81 Respiratory Rate 16 19 Blood Pressure Pulse Oximetry 90 L 93 L 05/28/18 00:00 05/28/18 00:08 05/28/18 01:00 Temperature 97.6 F Pulse Rate 79 Respiratory Rate 17 19 16 Blood Pressure 115/44 L Pulse Oximetry 99 05/28/18 03:00 05/28/18 03:11 05/28/18 04:00 Temperature 97.7 F Pulse Rate 69 70 70 Respiratory Rate 18 16 Blood Pressure 99/46 L Pulse Oximetry 99 05/28/18 07:00 05/28/18 07:25 05/28/18 08:30 Temperature 97.5 F L 97.5 F L Pulse Rate 81 90 Respiratory Rate 16 17 Blood Pressure 84/48 L 92/51 L Pulse Oximetry 99 99 98 05/28/18 08:51 05/28/18 11:00 Temperature 97.4 F L 96.3 F L Pulse Rate 87 101 H Respiratory Rate 16 16 Blood Pressure 80/47 L 94/48 L Pulse Oximetry 97 Intake & Output 05/27/18 05/28/18 05/28/18 18:59 06:59 18:59 Intake Total 1698 / 1698 653.5 / 653.5 Output Total Balance 1673 / 1673 653.5 / 653.5 Weight 128.5 kg Intake: IV 698 / 698 253.5 / 253.5 Versed Inj 50 mg In 50 ml @ 2 31 / 31 MG/HR 2 mls/hr IV.CONT TITRATE PRN Rx#:[id number] Pitressin Inj 40 UNIT In D5W 100 / 100 Inj 98 ML @ 0.04 UNITS/MIN 6 mls/hr IV.CONT CONT FABIOLA Rx#: [id number] Flexbumin 25% Inj 100 ML @ 60 100 / 100 mls/hr IV.SIG Q12H [facility] Rx#: [id number] Amikin Inj 750 MG In NS Inj 100 103 / 103 ML @ 200 mls/hr IV.SIG STAT ONE Rx#:[id number] Zosyn 2.25 GM Premix 50 ML @ 50 / 50 50 / 50 100 mls/hr IV.SIG Q8H [facility] Rx#: [id number] Vancomycin Inj 1,750 MG In NS 517 / 517 0.5 / 0.5 Inj 500 ML @ 250 mls/hr IV.SIG ONCE ONE Rx#:[id number] Oral 0 / 0 Other 1000 / 1000 Intake (Blood Product) Amt 400 / 400 Rbc As-3 Leukoreduced Unit 400 / 400 [id number] Output: Urine Amount (Catheter) 0 / 0 Suprapubic 0 / 0 Gastric Drainage 25 / 25 Orogastric Tube 25 / Other: Other Intake Source Saline Solution Date of Last Bowel Movement 05/27/18 # Bowel Movements 0 Weight On Admission 126 kg - Constitutional no acute distress, obese - Routine HEENT Exam Head: Present: normocephalic, atraumatic Eye: Present: EOMI, PERRL, conjunctivae pink ENT: Present: mucous membranes moist, oropharynx clear Comments: orally intubated - Routine Neck Exam Present: supple Comments: no JVD - Routine Respiratory Exam Present: patient mechanically ventilated, CTA bilaterally - Routine Cardiovascular Exam Present: RRR, S1, S2 Comments: no murmurs rubs or gallops - Routine Abdominal Exam Present: soft, distended Comments: no palpable hepatosplenomegly or masses - Routine Extremities Exam Comments: no cyanosis cool to cold to touch toes Massive non pitting edema of RUE : at least 2 times bigger than contralateral Graft palpable in upper arm extending to the chest - Routine Skin Exam Present: intact, dry, warm - Routine Neurological Exam heavily sedated and unresponsive - Routine Psychiatric Exam Present: unable to assess Results - Labs CBC & Chem 7: 06/16/18 04:00 06/16/18 04:00 Labs: Laboratory Results - last 24 hr 05/27/18 05/27/18 05/27/18 21:55 22:35 22:35 WBC 25.0 H RBC 2.85 L Hgb 7.9 L Hct 23.8 L MCV 83.4 MCH 27.8 MCHC 33.3 RDW 18.3 H Plt Count 112 L MPV 9.0 Prelim Diff (Auto) Neut % (Auto) Lymph % (Auto) [place] % (Auto) Eos % (Auto) Baso % (Auto) Neut # (Auto) Lymph # (Auto) [place] # (Auto) Eos # (Auto) Baso # (Auto) WBC Differential Seg Neuts % (Manual) Band Neuts % (Manual) Lymphocytes % (Manual) Monocytes % (Manual) Metamyelocytes % (Man) Myelocytes % (Man) Abs Neuts (Manual) Nucleated RBCs/100 WBC Differential Comment Toxic Granulation Platelet Estimate Platelet Morphology Target Cells Ovalocytes Ana Cells Acanthocytes (Spur) Keratocytes ESR Puncture Site Cancelled Patient Temperature Cancelled O2 Saturation Cancelled ABG pH Cancelled ABG pCO2 Cancelled ABG pO2 Cancelled ABG HCO3 Cancelled ABG O2 Content Cancelled ABG Base Excess Cancelled ABG Methemoglobin Cancelled Emmanuel Test Cancelled VBG pH VBG pCO2 VBG pO2 VBG HCO3 VBG O2 Saturation VBG O2 Content VBG Base Excess VBG Carboxyhemoglobin VBG Methemoglobin Hemoglobin Cancelled Carboxyhemoglobin Cancelled O2 Delivery Device Cancelled Liter Flow Cancelled Vent Setting Cancelled Inspired O2 Cancelled Critical Value Cancelled Sodium Potassium Chloride Carbon Dioxide Anion Gap BUN Creatinine Estimated GFR POC Glucose Random Glucose Lactic Acid Calcium Phosphorus Magnesium Total Bilirubin AST ALT Alkaline Phosphatase Ammonia Less than 10 L C-Reactive Protein Total Protein Albumin Nasal Screen MRSA (PCR) Blood Type Blood Type Recheck Antibody Screen MTS Gel Crossmatch 05/27/18 05/27/18 05/27/18 22:35 22:35 22:50 WBC RBC Hgb Hct MCV MCH MCHC RDW Plt Count MPV Prelim Diff (Auto) Neut % (Auto) Lymph % (Auto) [place] % (Auto) Eos % (Auto) Baso % (Auto) Neut # (Auto) Lymph # (Auto) [place] # (Auto) Eos # (Auto) Baso # (Auto) WBC Differential Seg Neuts % (Manual) Band Neuts % (Manual) Lymphocytes % (Manual) Monocytes % (Manual) Metamyelocytes % (Man) Myelocytes % (Man) Abs Neuts (Manual) Nucleated RBCs/100 WBC Differential Comment Toxic Granulation Platelet Estimate Platelet Morphology Target Cells Ovalocytes [place] Cells Acanthocytes (Spur) Keratocytes ESR Puncture Site Patient Temperature O2 Saturation ABG pH ABG pCO2 ABG pO2 ABG HCO3 ABG O2 Content ABG Base Excess ABG Methemoglobin Emmanuel Test VBG pH VBG pCO2 VBG pO2 VBG HCO3 VBG O2 Saturation VBG O2 Content VBG Base Excess VBG Carboxyhemoglobin VBG Methemoglobin Hemoglobin Carboxyhemoglobin O2 Delivery Device Liter Flow Vent Setting Inspired O2 Critical Value Sodium 144 Potassium 4.4 Chloride 108 H Carbon Dioxide 21.3 Anion Gap 15 BUN 68 H Creatinine 6.75 H Estimated GFR 10 L POC Glucose Random Glucose 184 H Lactic Acid 1.2 Calcium 8.2 L Phosphorus Magnesium 2.0 Total Bilirubin 0.6 AST 41 H ALT 30 Alkaline Phosphatase 95 Ammonia C-Reactive Protein Total Protein 6.5 Albumin 1.6 L Nasal Screen MRSA (PCR) Mrsa detected Blood Type Blood Type Recheck Antibody Screen MTS Gel Crossmatch 05/28/18 05/28/18 05/28/18 00:49 00:54 03:13 WBC RBC Hgb Hct MCV MCH MCHC RDW Plt Count MPV Prelim Diff (Auto) Neut % (Auto) Lymph % (Auto) [place] % (Auto) Eos % (Auto) Baso % (Auto) Neut # (Auto) Lymph # (Auto) [place] # (Auto) Eos # (Auto) Baso # (Auto) WBC Differential Seg Neuts % (Manual) Band Neuts % (Manual) Lymphocytes % (Manual) Monocytes % (Manual) Metamyelocytes % (Man) Myelocytes % (Man) Abs Neuts (Manual) Nucleated RBCs/100 WBC Differential Comment Toxic Granulation Platelet Estimate Platelet Morphology Target Cells Ovalocytes Ana Cells Acanthocytes (Spur) Keratocytes ESR Puncture Site Art line Patient Temperature 98.6 O2 Saturation 97 ABG pH 7.30 L ABG pCO2 39 ABG pO2 377 H ABG HCO3 19 L ABG O2 Content 11.1 L ABG Base Excess -6.7 L ABG Methemoglobin 1.9 Emmanuel Test VBG pH VBG pCO2 VBG pO2 VBG HCO3 VBG O2 Saturation VBG O2 Content VBG Base Excess VBG Carboxyhemoglobin VBG Methemoglobin Hemoglobin 7.4 L Carboxyhemoglobin 0.5 O2 Delivery Device Ventilator Liter Flow Vent Setting Comment Inspired O2 90 Critical Value No Sodium Potassium Chloride Carbon Dioxide Anion Gap BUN Creatinine Estimated GFR POC Glucose 199 H Random Glucose Lactic Acid Calcium Phosphorus Magnesium Total Bilirubin AST ALT Alkaline Phosphatase Ammonia C-Reactive Protein Total Protein Albumin Nasal Screen MRSA (PCR) Blood Type B Positive Blood Type Recheck Required Antibody Screen Negative MTS Gel Crossmatch See Detail 05/28/18 05/28/18 05/28/18 04:25 04:25 04:25 WBC 23.1 H RBC 2.71 L Hgb 7.5 L Hct 22.3 L MCV 82.1 MCH 27.8 MCHC 33.9 RDW 18.0 H Plt Count 103 L MPV 8.0 Prelim Diff (Auto) Slide review pending Neut % (Auto) 87.8 H Lymph % (Auto) 6.5 L [place] % (Auto) 4.9 Eos % (Auto) 0.2 Baso % (Auto) 0.6 Neut # (Auto) 20.3 H Lymph # (Auto) 1.5 [place] # (Auto) 1.1 H Eos # (Auto) 0.1 Baso # (Auto) 0.1 WBC Differential Manual diff final Seg Neuts % (Manual) 90 H Band Neuts % (Manual) 6 Lymphocytes % (Manual) 1 L Monocytes % (Manual) 1 Metamyelocytes % (Man) 1 Myelocytes % (Man) 1 H Abs Neuts (Manual) 22.6 H Nucleated RBCs/100 WBC 1 H Differential Comment . Toxic Granulation 2+ H Platelet Estimate Low L Platelet Morphology Normal Target Cells 1+ H Ovalocytes 1+ H Ana Cells 1+ H Acanthocytes (Spur) Occ H Keratocytes Occ H ESR Puncture Site Patient Temperature O2 Saturation ABG pH ABG pCO2 ABG pO2 ABG HCO3 ABG O2 Content ABG Base Excess ABG Methemoglobin Emmanuel Test VBG pH VBG pCO2 VBG pO2 VBG HCO3 VBG O2 Saturation VBG O2 Content VBG Base Excess VBG Carboxyhemoglobin VBG Methemoglobin Hemoglobin Carboxyhemoglobin O2 Delivery Device Liter Flow Vent Setting Inspired O2 Critical Value Sodium 142 Potassium 4.9 Chloride 106 Carbon Dioxide 19.7 L Anion Gap 16 H BUN 72 H Creatinine 7.03 H Estimated GFR 9 L POC Glucose Random Glucose 242 H Lactic Acid Calcium 8.4 L Phosphorus 6.7 H Magnesium 2.1 Total Bilirubin 0.6 AST 33 ALT 30 Alkaline Phosphatase 96 Ammonia C-Reactive Protein 22.00 H Total Protein 6.7 Albumin 1.8 L Nasal Screen MRSA (PCR) Blood Type Blood Type Recheck Antibody Screen MTS Gel Crossmatch 05/28/18 05/28/18 05/28/18 04:25 06:11 08:22 WBC RBC Hgb Hct MCV MCH MCHC RDW Plt Count MPV Prelim Diff (Auto) Neut % (Auto) Lymph % (Auto) [place] % (Auto) Eos % (Auto) Baso % (Auto) Neut # (Auto) Lymph # (Auto) [place] # (Auto) Eos # (Auto) Baso # (Auto) WBC Differential Seg Neuts % (Manual) Band Neuts % (Manual) Lymphocytes % (Manual) Monocytes % (Manual) Metamyelocytes % (Man) Myelocytes % (Man) Abs Neuts (Manual) Nucleated RBCs/100 WBC Differential Comment Toxic Granulation Platelet Estimate Platelet Morphology Target Cells Ovalocytes Ana Cells Acanthocytes (Spur) Keratocytes ESR 40 H Puncture Site Central line Patient Temperature 98.6 O2 Saturation ABG pH ABG pCO2 ABG pO2 ABG HCO3 ABG O2 Content ABG Base Excess ABG Methemoglobin Emmanuel Test VBG pH 7.22 L* VBG pCO2 45 VBG pO2 46 H VBG HCO3 18 L VBG O2 Saturation 72 VBG O2 Content 8.6 L VBG Base Excess -8.6 L VBG Carboxyhemoglobin 0.6 VBG Methemoglobin 1.7 Hemoglobin 8.4 L Carboxyhemoglobin O2 Delivery Device Ventilator Liter Flow Vent Setting Prvc 16/600/+10peep Inspired O2 50 Critical Value Yes Sodium Potassium Chloride Carbon Dioxide Anion Gap BUN Creatinine Estimated GFR POC Glucose 231 H Random Glucose Lactic Acid Calcium Phosphorus Magnesium Total Bilirubin AST ALT Alkaline Phosphatase Ammonia C-Reactive Protein Total Protein Albumin Nasal Screen MRSA (PCR) Blood Type Blood Type Recheck Antibody Screen MTS Gel Crossmatch - Imaging Impressions Chest X-Ray 05/27/18 20:57 CONCLUSION: Intubation of the right main bronchus with ET tube tip extending into centimeters beyond the kimberley. Upper Extremity Ultrasound 05/28/18 00:00 CONCLUSION: 1. Right upper extremity AV (Hero) graft/catheter. 2. Small amount of nonocclusive thrombus in the proximal graft just beyond the radial artery anastomosis to the mid upper extremity level. 3. Complex perigraft fluid most prominently near the shoulder and chest wall measuring up to 3.5 x 1.8 cm. This most likely reflects perigraft hematoma although abscess cannot be excluded in the appropriate clinical setting. Chest X-Ray 05/28/18 05:00 CONCLUSION: Unchanged consolidation scattered throughout the left lung. Assessment and Plan - Plan MRSA sepsis - sustained bacteremia: 2 cultures by 6 days Indwelling prosthetic vascular device (complex AV graft extending to R atrium ) Liekly infected HD vascular synthetic graft: abscess vs infected hematome Sepsis, septic shock ESRD, on HD Acute VDRF Hypotension, requiring pressors cont vancomycin: keep trough 15-20 cont zosyn for bnnow awaiting repeat BC for surgery today Critically ill, unstable dw RN dw family @ b/s anais Mcdonough will anais Umana
[2018-05-28] MEDS ORDERED: Bupivacaine PF 0.5% Inj 30 ML Vial ONE (12:17)
[2018-05-28] MEDS ORDERED: Thrombin Topical 20,000 UNIT Spray Kit TOPICAL ONE (12:17)
[2018-05-28] MEDS ORDERED: Protamine Sulfate Inj 50 MG/5 ML Vial ONE (12:17)
[2018-05-28] MEDS ORDERED: Heparin 10,000 UNITS/10 ML Vial (for IV use) ONE (12:17)
[2018-05-28] MEDS ORDERED: Heparin/NS PF Inj 500 ML ONE (12:17)
--- NOTE | 2018-05-28 14:42 | P.OP ---
Date of procedure: 05/28/18 Procedure: 1. Excision of arm graft 2. Excision of neck graft Implants: none Anesthesia: GETA Surgeon: Breezy Umana MD Linting Machine Operator: Breezy Louis Estimated blood loss (mL): 400 IV fluids (mL): 1,200 (and 2U PRBC) Pathology: other (perigraft fluid and graft for culture) Operation and Findings: purulence, able to remove central (neck) graft and arm graft sent for cultures
[2018-05-28] MEDS ORDERED: Sodium Bicarbonate 8.4% Inj 50 MEQ/50 ML Syringe ONE (14:57)
[2018-05-28] MEDS ORDERED: Sodium Bicarbonate 8.4% Inj 50 MEQ/50 ML Syringe IV.PUSH ONE (15:14)
--- NOTE | 2018-05-28 15:25 | P.PNCC ---
Subjective Subjective Remarks/Hospital Course: Hospital Course: Mr. Laguerre is a 73-year-old -[place] male with past medical history significant for end-stage renal disease on hemodialysis, hypertension, complicated vascular access, HeRO graft placement by Dr. Umana on 09/23/2017, revision and PTFE replacement 12/25/17. who presented to the [facility] with probable sepsis and shock. Dr. Umana was contacted and patient was accepted for transfer to CVICU in [facility]. I immediately evaluated the patient on arrival to CVICU. Patient is currently on BiPAP (transported on BiPAP) severely encephalopathic hardly wakes up to sternal rub, with a rapid shallow breathing. BiPAP settings 18/8, 60% FiO2. He is literally unresponsive and not protecting airway. Currently he is on Levophed at 20 mcg/min with a map 65-70. He is also on amiodarone for atrial fibrillation with RVR. Because of lack of airway protection, severe encephalopathy, septic shock and hypoxia I proceeded with endotracheal intubation. His glottic opening was completely occluded with thick secretions, several minutes of suctioning needed to clear the secretions prior to intubation. Postintubation Levophed had to be increased to 30 mcg/min, I also placed an arterial line. All cultures, routine labs and lactic acid pending at this time. I have started him on vancomycin and Zosyn. Discussed case with Dr. Umana extensively Patient was unable to provide any history, according to the RN who got report patient apparently had GI bleed, underwent EGD with cauterization of duodenal ulcer few days ago. Will avoid heparin for DVT prophylaxis. His postintubation ABG showed severe hypoxia with significant AA gradient, metabolic acidosis, and a hemoglobin of 7.6. Currently Levophed is increased to 30 mcg/min, I will transfuse 1 unit PRBC. Chest x-ray shows pulmonary edema will arrange for hemodialysis once his shock is improves. At this time he will not be able to tolerate either hemodialysis or even CVVH Subjective: 05/28: initially evaluated around 6:30am. patient in refractory septic shock. added epinephrine to levophed and vasopressin. discussed with Dr. Umana. obtained u/s of the right upper extremity which demonstrated fluid collection surrounding the HeRO graft which was heterogenous in nature. added single dose of Amikacin to vanc/zosyn regimen to cover ESBL organisms. patient remains in shock. per verbal report from OSH, blood cultures growing MRSA. taken to OR urgently and large amount of purulent drainage debrided from around catheter. HeRO catheter removed. returns from OR persistently unstable. acidosis worsening. bicarb given. discussed with nephrology and will need CRRT. Objective Vital Signs / I&O: Vital Signs 05/27/18 20:35 05/27/18 20:45 05/27/18 21:00 Temperature 36.3 C L Pulse Rate 94 H 117 H Respiratory Rate 15 22 Blood Pressure 110/62 Pulse Oximetry 98 05/27/18 21:36 05/27/18 22:25 05/27/18 23:00 Temperature Pulse Rate 81 Respiratory Rate 16 19 Blood Pressure Pulse Oximetry 90 L 93 L 05/28/18 00:00 05/28/18 00:08 05/28/18 01:00 Temperature 36.4 C Pulse Rate 79 Respiratory Rate 17 19 16 Blood Pressure 115/44 L Pulse Oximetry 99 05/28/18 03:00 05/28/18 03:11 05/28/18 04:00 Temperature 36.5 C Pulse Rate 69 70 70 Respiratory Rate 18 16 Blood Pressure 99/46 L Pulse Oximetry 99 05/28/18 07:00 05/28/18 07:25 05/28/18 08:30 Temperature 36.4 C L 36.4 C L Pulse Rate 81 90 Respiratory Rate 16 17 Blood Pressure 84/48 L 92/51 L Pulse Oximetry 99 99 98 05/28/18 08:51 05/28/18 11:00 05/28/18 12:17 Temperature 36.3 C L 35.7 C L Pulse Rate 87 101 H 100 H Respiratory Rate 16 16 22 Blood Pressure 80/47 L 94/48 L Pulse Oximetry 97 05/28/18 12:22 Temperature Pulse Rate Respiratory Rate 18 Blood Pressure Pulse Oximetry Intake & Output 05/27/18 05/28/18 05/28/18 18:59 06:59 18:59 Intake Total 1698 / 1698 2353.5 / 2353.5 Output Total 25 400 / 400 Balance 1673 / 1673 1953.5 / 1953.5 Weight 128.5 kg Intake: IV 698 / 698 253.5 / 253.5 Versed Inj 50 mg In 50 ml @ 2 31 / 31 MG/HR 2 mls/hr IV.CONT TITRATE PRN Rx#:[id number] Pitressin Inj 40 UNIT In D5W 100 / 100 Inj 98 ML @ 0.04 UNITS/MIN 6 mls/hr IV.CONT CONT TRACIE Rx#: [id number] Flexbumin 25% Inj 100 ML @ 60 100 / 100 mls/hr IV.SIG Q12H TRACIE Rx#: [id number] Amikin Inj 750 MG In NS Inj 100 103 / 103 ML @ 200 mls/hr IV.SIG STAT ONE Rx#:[id number] Zosyn 2.25 GM Premix 50 ML @ 50 / 50 50 / 50 100 mls/hr IV.SIG Q8H TRACIE Rx#: [id number] Vancomycin Inj 1,750 MG In NS 517 / 517 0.5 / 0.5 Inj 500 ML @ 250 mls/hr IV.SIG ONCE ONE Rx#:[id number] Oral 0 / 0 Anesthesia Amount 1200 / 1200 Other 1000 / 1000 Intake (Blood Product) Amt 400 / 400 Rbc As-3 Leukoreduced Unit 400 / 400 [id number] Autotransfusion Amount 500 / 500 Output: Estimated Blood Loss 400 / 400 Urine Amount (Catheter) 0 / 0 Suprapubic 0 / 0 Gastric Drainage 25 / 25 Orogastric Tube 25 / 25 Other: Other Intake Source Saline Solution Date of Last Bowel Movement 05/27/18 # Bowel Movements 0 Weight On Admission 126 kg Result Diagrams: 05/28/18 04:25 05/28/18 04:25 Objective Remarks: GENERAL: 73-year-old obese -Kyrgyz male, lying in bed, intubated, critically ill. HEENT: Normocephalic. Atraumatic. Pupils equal, round, reactive, mucous membranes moist. NECK: Trachea is midline. There is no JVD. CHEST: PRVC. equal chest rise. Air entry markedly decreased with coarse rhonchi bilaterally CARDIOVASCULAR: Atrial fibrillation rate controlled, on levophed at 30 mcg/min, vasopressin 0.04 units/min, epinephrine at 3 mcg/min. ABDOMEN: Soft, nontender, nondistended. No guarding. MUSCULOSKELETAL: Pulses 2+. No peripheral edema. Right upper extremity incision extending to the right shoulder region well-healed. right groin vascath in place, site appears c/d/i. NEUROLOGICAL: RASS -4. intubated, sedated. Assessment and Plan - Problem List (1) Septic shock Code(s): A41.9 - Sepsis, unspecified organism; R65.21 - Severe sepsis with septic shock Status: Acute (2) Acute hypoxemic respiratory failure Code(s): J96.01 - Acute respiratory failure with hypoxia Status: Acute (3) Acute metabolic encephalopathy Code(s): G93.41 - Metabolic encephalopathy Status: Acute (4) Arteriovenous graft infection Code(s): T82.7XXA - Infection and inflammatory reaction due to other cardiac and vascular devices, implants and grafts, initial encounter Status: Acute (5) Atrial fibrillation with RVR Code(s): I48.91 - Unspecified atrial fibrillation Status: Acute (6) Pulmonary edema Code(s): J81.1 - Chronic pulmonary edema Status: Acute - Assessment and Plan Plan: Assessment: 73yM with ESRD and now HeRO graft infection, most likely with MRSA and refractory septic shock. continue supportive care. remains hemodynamically unstable and very critically ill. broad spectrum abx. source control. NEURO: Acute metabolic encephalopathy -Versed for sedation and ventilator synchrony, postintubation -Patient's unresponsiveness most likely secondary to severe sepsis and toxic metabolic encephalopathy RESP: Acute hypoxemic and hypercarbic respiratory failure Pulmonary edema -PRVC/AC -Ventilator bundle. DuoNeb every 6 hours scheduled and as needed -f/u sputum culture. - continue BSAbx - no SBT given shock. CV: Septic shock Acute severe anion gap Metabolic acidosis Pulmonary edema Atrial fibrillation with RVR -He is in profound shock currently on levophed, vasopressin, epinephrine. - continue stress dose steroids. -No further fluid boluses due to pulmonary edema and severe hypoxia -A. fib rate is controlled, cannot anticoagulate due to history of recent GI bleed GI/HEME: Recent GI bleed Anemia requiring transfusion -N.p.o., IV Protonix -Due to recent GI bleed and hypotension transfuse 1 unit PRBC for hemoglobin of 7.6 -CBC is pending at this time : End-stage renal disease on hemodialysis HeRO graft placed 09/2017 -On-call nephrology consult requested - 4 more amps bicarb - start CVVHD ID: Septic shock HeRO graft infection -Broad-spectrum antibiotics with vancomycin and Zosyn - add 1 dose amikacin until culture data comes back. -ID consult -Dr. Umana consulted -Blood urine and sputum cultures ENDO: Type 2 diabetes Presumed Adrenal insufficiency -Sliding scale insulin -Stress dose steroids with hydrocortisone 100 mg IV every 8 hr PROPH: -Bilateral lower extremity SCDs. Avoid chemical DVT prophylaxis due to recent GI bleed. IV Protonix 40 mg every 12 LINES: -Patient has left IJ central line placed at [facility] -left radial arterial line 05/27 -right femoral vascath at OSH- most likely 05/26. CC time 84 min excluding procedure
[2018-05-28] MEDS: Midazolam 50 MG/50 ML Inj 50 MG/50 ML BAG IV.CONT PRN (15:35)
[2018-05-28] MEDS: Insulin Regular (For Infusion) 100 UNIT in Sodium Chlor 0.9% Inj 99 ML IV.CONT PRN ×2 (16:17→19:58)
[2018-05-28 16:20] LABS: Baso # (Auto) 0.2 th/mm3 (0.0-0.2); Baso % (Auto) 0.9 % (0.0-2.0); Eos % (Auto) 0.1 % (0.0-4.0); Hematocrit 27.2 % (39.0-51.0); Hemoglobin 9.1 gm/dL (13.0-17.0); Lymph # (Auto) 1.1 th/mm3 (1.0-4.8); Lymph % (Auto) 4.9 % (9.0-44.0); Mean Corpuscular HGB Conc 33.3 % (32.0-36.0); Mean Corpuscular Hemoglobin 28.5 pg (27.0-34.0); Mean Corpuscular Volume 85.6 fL (80.0-100.0); Mean Platelet Volume 8.4 fL (7.0-11.0); Mono % (Auto) 4.5 % (0.0-8.0); Neut # (Auto) 20.5 th/mm3 (1.8-7.7); Neut % (Auto) 89.6 % (16.0-70.0); Platelet Count 105 th/mm3 (150-450); Red Blood Count 3.18 mil/mm3 (4.50-5.90); Red Cell Distribution Width 17.8 % (11.6-17.2); White Blood Count 22.9 th/mm3 (4.0-11.0)
[2018-05-28 17:32] LABS: Burr Cells 1+; Lymphocytes 6 % (9-44); Monocytes 2 % (0-8); Ovalocytes 1+; Tallied Nucleated RBC 1 (0-0); Target Cells 1+
[2018-05-28 17:33] LABS: Platelet Morphology Normal (Normal)
--- NOTE | 2018-05-28 17:56 | P.CONNP ---
History of Present Illness Service: Nephrology Consult date: 05/28/18 Requesting Physician: Breezy Umana Reason for Consult: End-stage renal disease Primary Care Provider: UNKNOWN Chief Complaint: Septic shock History of Present Illness: Patient is a 73-year-old -[place]ian male with history of end-stage renal disease follows with Dr. Smith, he has a complicated hero catheter placement September 2017 and this was revised and December 2017 with PTFE, patient presented to the [facility] ER with septic shock and had been transferred to [facility] as Dr. Umana accepted him, patient goes on dialysis on Friday, Friday and Friday, he has a temporary catheter in the groin area, the hero graft was excised as he had infected the entire graft, MRSA is growing , patient has received vancomycin. Patient has atrial fibrillation and currently intubated. Review of Systems unobtainable due to endotracheal tube, unobtainable due to mental status PMFSH - Medical History Medical History: Medical History (Last Updated 05/28/18 @ 12:44 by Raya Morgan MD) Hemodialysis access, AV graft (Acute) AVF (arteriovenous fistula) DM (diabetes mellitus) ESRD (end stage renal disease) on dialysis History of DVT (deep vein thrombosis) Hypertension Obesity Venous collateral circulation - Tobacco History Smoking Status: Unknown if ever smoked - Alcohol History How Often Do You Have a Drink Containing Alcohol: Unable to Obtain - Substance Use History Substance History: Unable to Obtain Medications and Allergies Active Medications: Active Medications Acetaminophen (Tylenol) 650 mg PO Q6H PRN PRN Reason: PAIN 1-10 AND/OR FEVER >101F Al Hydroxide/Mg Hydroxide (Milk Of Shiraz Miranda) 30 ml PO Q12H PRN PRN Reason: Mild Constipation Albuterol (Albuterol Neb (Prn)) 2.5 mg NEB Q2HR NEB PRN PRN Reason: SHORTNESS OF BREATH/WHEEZING Albuterol (Duoneb Neb (Fabiola)) 1 ampul NEB Q6HR NEB FABIOLA Last Admin: 05/28/18 16:34 Dose: 1 ampul Bisacodyl (Dulcolax Supp) 10 mg RECTAL DAILY PRN PRN Reason: SEVERE CONSITIPATION Chlorhexidine Gluconate (Chlorhexidine 2% Cloth) 3 pack TOPICAL DAILY@0400 [facility] Stop: 06/02/18 03:59 Last Admin: 05/28/18 04:30 Dose: 3 pack Chlorhexidine Gluconate (Chlorhexidine 2% Cloth) 3 pack TOPICAL DAILY@0400 PRN PRN Reason: Extra cloth needed Stop: 06/02/18 03:59 Dextrose (D50w Vial) 50 ml IV.PUSH UNSCH PRN PRN Reason: PER HYPOGLYCEMIA PROTOCOL Glucagon (Glucagon Inj) 1 mg OTHER PRN PRN PRN Reason: for Hypoglycemia Protocol Hydrocortisone Sodium Succinate (Solucortef Inj) 100 mg IV.PUSH Q8HR FABIOLA Last Admin: 05/28/18 15:32 Dose: 100 mg Piperacillin/Tazobactam/Dextrose (Zosyn 2.25 Gm Premix) 50 mls @ 100 mls/hr IV.SIG Q8H FABIOLA Last Infusion: 05/28/18 16:25 Dose: Infused Vasopressin 40 unit/ Dextrose 100 mls @ 6 mls/hr IV.CONT CONT FABIOLA; Protocol Last Admin: 05/28/18 07:35 Dose: 0.04 units/min, 6 mls/hr Albumin Human (Flexbumin 25% Inj) 100 mls @ 60 mls/hr IV.SIG Q12H FABIOLA Last Infusion: 05/28/18 16:25 Dose: Infused Midazolam HCl (Versed Inj) 50 mg in 50 mls @ 2 mls/hr IV.CONT TITRATE PRN; Protocol PRN Reason: Per Protocol Last Admin: 05/28/18 15:35 Dose: 6 mg/hr, 6 mls/hr Norepinephrine Bitartrate 8 mg (/ Sodium Chloride) 250 mls @ 3.75 mls/hr IV.CONT TITRATE PRN; Protocol PRN Reason: See protocol Last Admin: 05/28/18 15:44 Dose: 20 mcg/min, 37.5 mls/hr Epinephrine HCl 2 mg/ Dextrose 250 mls @ 22.5 mls/hr IV.CONT TITRATE PRN; Protocol PRN Reason: Per Protocol Last Admin: 05/28/18 09:20 Dose: 3 mcg/min, 22.5 mls/hr Insulin Human Regular 100 unit (/ Sodium Chloride) 100 mls @ 3 mls/hr IV.CONT TITRATE PRN; Protocol PRN Reason: See Protocol Last Admin: 05/28/18 16:17 Dose: 33 units/hr, 33 mls/hr Sodium Bicarbonate 75 meq/ (Sodium Chloride) 1,075 mls @ 500 mls/hr IV.CONT .Q2H9M [facility] Sodium Bicarbonate 75 meq/ (Sodium Chloride) 1,075 mls @ 1,000 mls/hr IV.CONT .Q1H5M [facility] Lactulose (Lactulose Liq) 30 ml PO DAILY PRN PRN Reason: SEVERE CONSITIPATION Miscellaneous Information (Misc Nursing Information) 0 each OTHER PRN PRN PRN Reason: SEE LABEL COMMENTS Pantoprazole Sodium (Protonix Inj) 40 mg IV.PUSH Q12H [facility] Last Admin: 05/28/18 15:34 Dose: 40 mg Pharmacy Profile Note (Vancomycin Consult Pharmacy) 1 each OTHER UNSCH PRN PRN Reason: Pharmacy to dose Senna/Docusate Sodium (Jaida-Colace) 1 tab PO BID [facility] Last Admin: 05/28/18 09:20 Dose: Not Given Sennosides (Senokot) 17.2 mg PO Q12H PRN PRN Reason: Moderate Constipation Sodium Chloride (Ns Flush) 2 ml IV.FLUSH BID [facility] Last Admin: 05/28/18 09:20 Dose: 2 ml Sodium Chloride (Ns Flush) 2 ml IV.FLUSH PRN PRN PRN Reason: FLUSH AFTER USING IV ACCESS Terbutaline Sulfate (Brethine Inj) 1 mg SQ UNSCH PRN PRN Reason: For Extravasation Allergies Allergy/AdvReac Type Severity Reaction Status Date / Time No Known Allergies Allergy Unknown Uncoded 12/24/17 14:57 Exam Vital signs: Vital Signs 05/27/18 20:35 05/27/18 20:45 05/27/18 21:00 Temperature 97.4 F L Pulse Rate 94 H 117 H Respiratory Rate 15 22 Blood Pressure 110/62 Pulse Oximetry 98 05/27/18 21:36 05/27/18 22:25 05/27/18 23:00 Temperature Pulse Rate 81 Respiratory Rate 16 19 Blood Pressure Pulse Oximetry 90 L 93 L 05/28/18 00:00 05/28/18 00:08 05/28/18 01:00 Temperature 97.6 F Pulse Rate 79 Respiratory Rate 17 19 16 Blood Pressure 115/44 L Pulse Oximetry 99 05/28/18 03:00 05/28/18 03:11 05/28/18 04:00 Temperature 97.7 F Pulse Rate 69 70 70 Respiratory Rate 18 16 Blood Pressure 99/46 L Pulse Oximetry 99 05/28/18 07:00 05/28/18 07:25 05/28/18 08:30 Temperature 97.5 F L 97.5 F L Pulse Rate 81 90 Respiratory Rate 16 17 Blood Pressure 84/48 L 92/51 L Pulse Oximetry 99 99 98 05/28/18 08:51 05/28/18 11:00 05/28/18 12:17 Temperature 97.4 F L 96.3 F L Pulse Rate 87 101 H 100 H Respiratory Rate 16 16 22 Blood Pressure 80/47 L 94/48 L Pulse Oximetry 97 05/28/18 12:22 05/28/18 15:00 05/28/18 16:35 Temperature 97.5 F L Pulse Rate 118 H 106 H Respiratory Rate 18 24 16 Blood Pressure 118/59 L Pulse Oximetry 98 100 05/28/18 16:50 Temperature Pulse Rate Respiratory Rate Blood Pressure Pulse Oximetry 100 Intake & Output 05/27/18 05/28/18 05/28/18 18:59 06:59 18:59 Intake Total 1698 / 1698 2772.5 / 2772.5 Output Total 400 / 400 Balance 1673 / 1673 2372.5 / 2372.5 Weight 128.5 kg Intake: IV 698 / 698 672.5 / 672.5 Versed Inj 50 mg In 50 ml @ 2 31 / 31 19 / 19 MG/HR 2 mls/hr IV.CONT TITRATE PRN Rx#:[id number] Levophed Inj 8 MG In NS Inj 242 250 / 250 ML @ 2 MCG/MIN 3.75 mls/hr IV. CONT TITRATE PRN Rx#:[id number] Pitressin Inj 40 UNIT In D5W 100 / 100 Inj 98 ML @ 0.04 UNITS/MIN 6 mls/hr IV.CONT CONT FABIOLA Rx#: [id number] Flexbumin 25% Inj 100 ML @ 60 100 / 100 100 / 100 mls/hr IV.SIG Q12H FABIOLA Rx#: [id number] Amikin Inj 750 MG In NS Inj 100 103 / 103 ML @ 200 mls/hr IV.SIG STAT ONE Rx#:[id number] Zosyn 2.25 GM Premix 50 ML @ 50 / 50 100 / 100 100 mls/hr IV.SIG Q8H FABIOLA Rx#: [id number] Vancomycin Inj 1,750 MG In NS 517 / 517 0.5 / 0.5 Inj 500 ML @ 250 mls/hr IV.SIG ONCE ONE Rx#:[id number] Oral 0 / 0 Anesthesia Amount 1200 / 1200 Other 1000 / 1000 Intake (Blood Product) Amt 400 / 400 Rbc As-3 Leukoreduced Unit 400 / 400 [id number] Autotransfusion Amount 500 / 500 Output: Estimated Blood Loss 400 / 400 Urine Amount (Catheter) 0 / 0 Suprapubic 0 / 0 Gastric Drainage 25 / Orogastric Tube Other: Other Intake Source Saline Solution Date of Last Bowel Movement 05/27/18 # Bowel Movements 0 Weight On Admission 126 kg - Constitutional no acute distress - Routine HEENT Exam Head: Present: normocephalic - Routine Neck Exam Present: supple - Routine Respiratory Exam Present: CTA bilaterally - Routine Cardiovascular Exam Present: irregularly irregular - Routine Abdominal Exam Present: soft, normoactive bowel sounds - Routine Extremities Exam Present: edema, vascular access Results - Lab Results 05/29/18 04:20 05/29/18 04:20 Most recent lab results ABG pH 7.30 (7.380-7.420) L 05/28/18 03:13 ABG pCO2 39 mmHg (38-42) 05/28/18 03:13 ABG pO2 377 mmHG (61-120) H 05/28/18 03:13 ABG HCO3 19 mmol/L (22-26) L 05/28/18 03:13 Calcium 8.4 mg/dL (8.5-10.1) L 05/28/18 04:25 Phosphorus 6.7 mg/dL (2.5-4.9) H 05/28/18 04:25 Magnesium 2.1 mg/dL (1.5-2.5) 05/28/18 04:25 Assessment and Plan - Assessment (1) End stage renal disease on dialysis Code(s): N18.6 - End stage renal disease; Z99.2 - Dependence on renal dialysis Status: Acute (2) Acute hypoxemic respiratory failure Code(s): J96.01 - Acute respiratory failure with hypoxia Status: Acute (3) Arteriovenous graft infection Code(s): T82.7XXA - Infection and inflammatory reaction due to other cardiac and vascular devices, implants and grafts, initial encounter Status: Acute (4) Atrial fibrillation with RVR Code(s): I48.91 - Unspecified atrial fibrillation Status: Acute (5) Hemodialysis access, AV graft Code(s): Z99.2 - Dependence on renal dialysis Status: Acute - Plan Patient has sepsis and undergoing treatment with IV vancomycin and Zosyn He is on vasopressors keep his blood pressures steady We will do CRRT as patient is getting acidotic May switch him to hemodialysis once stable Continue supportive care
[2018-05-28] MEDS ORDERED: [UNRECOGNIZED DRUG - REMARK] OTHER PRN (18:00)
[2018-05-28] MEDS: Sodium Bicarbonate 8.4% Inj 75 MEQ in Sodium Chloride 0.45 % Inj 1,000 ML IV.CONT SCH ×4 (20:00→22:15)
[2018-05-28] MEDS: Sodium Chlor 0.9% Inj 100 ML IV.SIG SCH ×2 (20:13→22:45)
--- NOTE | 2018-05-28 20:57 | MP ---
cc: Breezy Umana MD DATE OF OPERATION: 05/28/2018 PREOPERATIVE DIAGNOSIS: Infected HeRO graft, neck and arm grafts. POSTOPERATIVE DIAGNOSIS: Infected HeRO graft neck and arm grafts. PROCEDURE PERFORMED: 1. Excision of neck graft. 2. Excision of arm graft. ATTENDING SURGEON: Breezy Umana MD PR[employer]ED [employer]ARD REWORKER: Breezy Louis ANESTHESIA: General. INDICATIONS: Mr. Laguerre is a 73-year-old gentleman with complex dialysis access problems. Back in December, he had an hero graft revised and this was working fine. He presented to an outside hospital with fever, malaise and positive blood cultures. He was transferred emergently to our institution and at the time of presentation was on multiple pressors and intubated. A duplex suggested he had fluid around his graft and he was taken to the operating room for graft excision. Intraoperatively, it was found that he had purulence around the graft that was sent for culture and the neck graft was excised in its entirety and the arm graft was excised down to the incorporated part. DESCRIPTION OF PROCEDURE: Informed consent was obtained from the patient's as the patient is intubated, sedated on pressors. He was taken to the operating room and placed supine on the operating table. An appropriate timeout was taken to ensure the patient's identity, operative site and planned procedure. He had already received systemic antibiotics and these were at therapeutic levels. His chest, neck, and arm were prepped and draped. An incision was made over the subclavicular area right over the previous incision and intense purulence under pressure was identified and sent for culture. Under fluoroscopic guidance, the neck graft was gently excised and retracted from the body and sent for culture. The tract was oversewn with 4-0 Prolene and manual pressure with the patient in reverse Trendelenburg position. A separate incision made in the upper arm and carried down to subcutaneous tissue with electrocautery. Venous hypertensive bleeding was encountered and controlled with electrocautery and 3-0 silk. The graft was identified and encircled with vessel loop and dissected free down to the proximal aspect of the graft. It was clamped, transected, and the proximal end was oversewn with 4-0 Prolene suture. The graft was tunneled between these 2 incisions were then removed without difficulty. The entire wounds were irrigated. Vancomycin powder was placed. Surgicel and spray thrombin were used in the grafts and the wounds were closed with 2-0 Polysorb and 3-0 nylon sutures. Sponge and needle counts were correct at the end of the case. I was present and scrubbed and performed the entire procedure. MD JENELLE Torres/arlene , 02:47 PM , 02:54 PM MTDD
[2018-05-29 02:15] LABS: ABG Base Excess 3.1 mmol/L (-2-2); ABG PCO2 44 mmHg (38-42); ABG PO2 129 mmHG (61-120)
[2018-05-29] MEDS: Norepinephrine Inj 8 MG in Sodium Chlor 0.9% Inj 242 ML IV.CONT PRN ×2 (02:20→11:55)
[2018-05-29] MEDS: Insulin Regular (For Infusion) 100 UNIT in Sodium Chlor 0.9% Inj 99 ML IV.CONT PRN (02:38)
[2018-05-29] MEDS: Midazolam 50 MG/50 ML Inj 50 MG/50 ML BAG IV.CONT PRN ×3 (02:47→16:51)
[2018-05-29] MEDS: Albumin Human 25% Inj 100 ML IV.SIG SCH ×5 (02:49→23:33)
[2018-05-29] MEDS: Pantoprazole Inj 40 MG Vial IV.PUSH SCH ×3 (02:49→23:33)
[2018-05-29] MEDS: Vasopressin Inj 40 UNIT in Dextrose 5% in Water Inj 98 ML IV.CONT SCH ×4 (04:29→23:49)
[2018-05-29 04:52] LABS: Hematocrit 25.7 % (39.0-51.0); Mean Corpuscular HGB Conc 34.9 % (32.0-36.0); Mean Corpuscular Hemoglobin 28.4 pg (27.0-34.0); Mean Corpuscular Volume 81.3 fL (80.0-100.0); Platelet Count 109 th/mm3 (150-450); Red Blood Count 3.16 mil/mm3 (4.50-5.90); Red Cell Distribution Width 17.3 % (11.6-17.2); White Blood Count 22.8 th/mm3 (4.0-11.0)
[2018-05-29] MEDS: Senna/Docusate Sodium 8.6/50 MG Tablet PO SCH ×3 (05:04→20:20)
[2018-05-29] MEDS: Sodium Bicarbonate 8.4% Inj 75 MEQ in Sodium Chloride 0.45 % Inj 1,000 ML IV.CONT SCH ×12 (05:07→23:28)
[2018-05-29] MEDS: Sodium Chlor 0.9% Inj 100 ML IV.SIG SCH ×4 (05:09→17:23)
[2018-05-29] MEDS: Chlorhexidine Gluconate 2% 1 Pack (2 Cloths) TOPICAL SCH (05:10)
[2018-05-29 05:15] LABS: Alanine Aminotransferase 25 U/L (12-78); Albumin 2.1 g/dL (3.4-5.0); Alkaline Phosphatase 81 U/L (45-117); Anion Gap 11 meq/L (5-15); Aspartate Aminotransferase 19 U/L (15-37); Blood Urea Nitrogen 72 mg/dL (7-18); Calcium 7.8 mg/dL (8.5-10.1); Carbon Dioxide 29.4 meq/L (21.0-32.0); Chloride 104 meq/L (98-107); Glomerular Filtration Rate 10 mL/min (>89); Glucose,Random 122 mg/dL (74-106); Magnesium 2.1 mg/dL (1.5-2.5); Phosphorus 5.7 mg/dL (2.5-4.9); Potassium 3.8 meq/L (3.5-5.1); Sodium 144 meq/L (136-145); Total Protein 6.9 g/dL (6.4-8.2); Vancomycin,Random 38.2 Comment
[2018-05-29 05:22] LABS: ABG Base Excess 1.9 mmol/L (-2-2); ABG PCO2 43 mmHg (38-42); ABG PO2 120 mmHG (61-120)
[2018-05-29] MEDS: Hydrocortisone Sod Succinate 100 MG Vial IV.PUSH SCH ×3 (05:40→23:31)
[2018-05-29] MEDS: Piperacil/Tazo 2.25 GM Premix 50 ML IV.SIG SCH ×3 (05:41→23:31)
--- NOTE | 2018-05-29 10:21 | P.PNVS ---
Subjective Post Op Day #: 1 Procedure: Excision of arm and neck grafts, grossly infected Subjective/Hospital Course: acidosis corrected, getting dialysis, still critically ill on pressors but overall a touch better. Objective Neuro: sedated, by report VAN; definitely moved UE yesterday pre-anesthesia; pain appears controlled Pulmonary: intubated; rate 16 PEEP 10; decent gas exchange. 7.41/43/120/26/1.9 LLE infiltrate/fluid on CXR; GNR sputum culture Cardiac: 3 pressors (vaso, levo, epi) but weaning slightly LA normal FEN/GI: getting HD at present K ok at some point, will start enteral TF but likely wait given pressor support ID Antibiotics (date/duration): GNR sputum GPC blood Will need 6 weeks of IV antibiotics, likely Vanc to cover MRSA, in addition to sputum coverage. Heme: Hct ok - 2U PRBC in OR and 1U Wed night on adm Vascular: R UE incisions ok - can reinforce gauze as needed Endocrine: insulin gtt Laboratory Results - last 24 hr 05/28/18 05/28/18 05/28/18 11:15 12:03 16:00 WBC 22.9 H RBC 3.18 L Hgb 9.1 L Hct 27.2 L MCV 85.6 D MCH 28.5 MCHC 33.3 RDW 17.8 H Plt Count 105 L MPV 8.4 Prelim Diff (Auto) Slide review pending Neut % (Auto) 89.6 H Lymph % (Auto) 4.9 L [place] % (Auto) 4.5 Eos % (Auto) 0.1 Baso % (Auto) 0.9 Neut # (Auto) 20.5 H Lymph # (Auto) 1.1 [place] # (Auto) 1.0 H Eos # (Auto) 0.0 Baso # (Auto) 0.2 WBC Differential Manual diff final Seg Neuts % (Manual) 87 H Band Neuts % (Manual) 5 Lymphocytes % (Manual) 6 L Monocytes % (Manual) 2 Abs Neuts (Manual) 21.1 H Nucleated RBCs/100 WBC 1 H Differential Comment . Platelet Estimate Low L Platelet Morphology Normal Target Cells 1+ H Ovalocytes 1+ H [place] Cells 1+ H Puncture Site Patient Temperature O2 Saturation ABG pH ABG pCO2 ABG pO2 ABG HCO3 ABG O2 Content ABG Base Excess ABG Methemoglobin Hemoglobin Carboxyhemoglobin O2 Delivery Device Vent Setting Inspired O2 Critical Value Sodium Potassium Chloride Carbon Dioxide Anion Gap BUN Creatinine Estimated GFR POC Glucose 356 H Random Glucose Calcium Phosphorus Magnesium Total Bilirubin AST ALT Alkaline Phosphatase Total Protein Albumin Random Vancomycin MTS Gel Crossmatch See Detail 05/28/18 05/28/18 05/28/18 16:15 18:18 19:42 WBC RBC Hgb Hct MCV MCH MCHC RDW Plt Count MPV Prelim Diff (Auto) Neut % (Auto) Lymph % (Auto) [place] % (Auto) Eos % (Auto) Baso % (Auto) Neut # (Auto) Lymph # (Auto) [place] # (Auto) Eos # (Auto) Baso # (Auto) WBC Differential Seg Neuts % (Manual) Band Neuts % (Manual) Lymphocytes % (Manual) Monocytes % (Manual) Abs Neuts (Manual) Nucleated RBCs/100 WBC Differential Comment Platelet Estimate Platelet Morphology Target Cells Ovalocytes [place] Cells Puncture Site Patient Temperature O2 Saturation ABG pH ABG pCO2 ABG pO2 ABG HCO3 ABG O2 Content ABG Base Excess ABG Methemoglobin Hemoglobin Carboxyhemoglobin O2 Delivery Device Vent Setting Inspired O2 Critical Value Sodium Potassium Chloride Carbon Dioxide Anion Gap BUN Creatinine Estimated GFR POC Glucose 372 H 341 H 296 H Random Glucose Calcium Phosphorus Magnesium Total Bilirubin AST ALT Alkaline Phosphatase Total Protein Albumin Random Vancomycin MTS Gel Crossmatch 05/28/18 05/28/18 05/28/18 20:45 21:44 22:47 WBC RBC Hgb Hct MCV MCH MCHC RDW Plt Count MPV Prelim Diff (Auto) Neut % (Auto) Lymph % (Auto) [place] % (Auto) Eos % (Auto) Baso % (Auto) Neut # (Auto) Lymph # (Auto) [place] # (Auto) Eos # (Auto) Baso # (Auto) WBC Differential Seg Neuts % (Manual) Band Neuts % (Manual) Lymphocytes % (Manual) Monocytes % (Manual) Abs Neuts (Manual) Nucleated RBCs/100 WBC Differential Comment Platelet Estimate Platelet Morphology Target Cells Ovalocytes [place] Cells Puncture Site Patient Temperature O2 Saturation ABG pH ABG pCO2 ABG pO2 ABG HCO3 ABG O2 Content ABG Base Excess ABG Methemoglobin Hemoglobin Carboxyhemoglobin O2 Delivery Device Vent Setting Inspired O2 Critical Value Sodium Potassium Chloride Carbon Dioxide Anion Gap BUN Creatinine Estimated GFR POC Glucose 237 H 210 H 195 H Random Glucose Calcium Phosphorus Magnesium Total Bilirubin AST ALT Alkaline Phosphatase Total Protein Albumin Random Vancomycin MTS Gel Crossmatch 05/28/18 05/29/18 05/29/18 23:49 00:53 01:56 WBC RBC Hgb Hct MCV MCH MCHC RDW Plt Count MPV Prelim Diff (Auto) Neut % (Auto) Lymph % (Auto) [place] % (Auto) Eos % (Auto) Baso % (Auto) Neut # (Auto) Lymph # (Auto) [place] # (Auto) Eos # (Auto) Baso # (Auto) WBC Differential Seg Neuts % (Manual) Band Neuts % (Manual) Lymphocytes % (Manual) Monocytes % (Manual) Abs Neuts (Manual) Nucleated RBCs/100 WBC Differential Comment Platelet Estimate Platelet Morphology Target Cells Ovalocytes [place] Cells Puncture Site Patient Temperature O2 Saturation ABG pH ABG pCO2 ABG pO2 ABG HCO3 ABG O2 Content ABG Base Excess ABG Methemoglobin Hemoglobin Carboxyhemoglobin O2 Delivery Device Vent Setting Inspired O2 Critical Value Sodium Potassium Chloride Carbon Dioxide Anion Gap BUN Creatinine Estimated GFR POC Glucose 188 H 153 H 138 H Random Glucose Calcium Phosphorus Magnesium Total Bilirubin AST ALT Alkaline Phosphatase Total Protein Albumin Random Vancomycin MTS Gel Crossmatch 05/29/18 05/29/18 05/29/18 01:59 02:59 04:01 WBC RBC Hgb Hct MCV MCH MCHC RDW Plt Count MPV Prelim Diff (Auto) Neut % (Auto) Lymph % (Auto) [place] % (Auto) Eos % (Auto) Baso % (Auto) Neut # (Auto) Lymph # (Auto) [place] # (Auto) Eos # (Auto) Baso # (Auto) WBC Differential Seg Neuts % (Manual) Band Neuts % (Manual) Lymphocytes % (Manual) Monocytes % (Manual) Abs Neuts (Manual) Nucleated RBCs/100 WBC Differential Comment Platelet Estimate Platelet Morphology Target Cells Ovalocytes Ana Cells Puncture Site Art line Patient Temperature 98.6 O2 Saturation 96 ABG pH 7.41 ABG pCO2 44 H ABG pO2 129 H ABG HCO3 27 H ABG O2 Content 12.9 ABG Base Excess 3.1 H ABG Methemoglobin 1.6 Hemoglobin 9.4 L Carboxyhemoglobin 0.9 O2 Delivery Device Ventilator Vent Setting Prvc/ac Inspired O2 40 Critical Value No Sodium Potassium Chloride Carbon Dioxide Anion Gap BUN Creatinine Estimated GFR POC Glucose 140 H 105 Random Glucose Calcium Phosphorus Magnesium Total Bilirubin AST ALT Alkaline Phosphatase Total Protein Albumin Random Vancomycin MTS Gel Crossmatch 05/29/18 05/29/18 05/29/18 04:20 04:20 04:55 WBC 22.8 H RBC 3.16 L Hgb 9.0 L Hct 25.7 L MCV 81.3 D MCH 28.4 MCHC 34.9 RDW 17.3 H Plt Count 109 L MPV 8.0 Prelim Diff (Auto) Neut % (Auto) Lymph % (Auto) [place] % (Auto) Eos % (Auto) Baso % (Auto) Neut # (Auto) Lymph # (Auto) [place] # (Auto) Eos # (Auto) Baso # (Auto) WBC Differential Seg Neuts % (Manual) Band Neuts % (Manual) Lymphocytes % (Manual) Monocytes % (Manual) Abs Neuts (Manual) Nucleated RBCs/100 WBC Differential Comment Platelet Estimate Platelet Morphology Target Cells Ovalocytes [place] Cells Puncture Site Art line Patient Temperature 98.6 O2 Saturation 96 ABG pH 7.41 ABG pCO2 43 H ABG pO2 120 ABG HCO3 26 ABG O2 Content 12.0 ABG Base Excess 1.9 ABG Methemoglobin 1.6 Hemoglobin 8.8 L Carboxyhemoglobin 0.8 O2 Delivery Device Ventilator Vent Setting Prvc/ac Inspired O2 40 Critical Value No Sodium 144 Potassium 3.8 D Chloride 104 Carbon Dioxide 29.4 D Anion Gap 11 BUN 72 H Creatinine 6.84 H Estimated GFR 10 L POC Glucose Random Glucose 122 H D Calcium 7.8 L Phosphorus 5.7 H D Magnesium 2.1 Total Bilirubin 0.5 AST 19 ALT 25 Alkaline Phosphatase 81 Total Protein 6.9 Albumin 2.1 L Random Vancomycin 38.2 MTS Gel Crossmatch 05/29/18 05/29/18 05/29/18 05:21 06:25 07:23 WBC RBC Hgb Hct MCV MCH MCHC RDW Plt Count MPV Prelim Diff (Auto) Neut % (Auto) Lymph % (Auto) [place] % (Auto) Eos % (Auto) Baso % (Auto) Neut # (Auto) Lymph # (Auto) [place] # (Auto) Eos # (Auto) Baso # (Auto) WBC Differential Seg Neuts % (Manual) Band Neuts % (Manual) Lymphocytes % (Manual) Monocytes % (Manual) Abs Neuts (Manual) Nucleated RBCs/100 WBC Differential Comment Platelet Estimate Platelet Morphology Target Cells Ovalocytes Ana Cells Puncture Site Patient Temperature O2 Saturation ABG pH ABG pCO2 ABG pO2 ABG HCO3 ABG O2 Content ABG Base Excess ABG Methemoglobin Hemoglobin Carboxyhemoglobin O2 Delivery Device Vent Setting Inspired O2 Critical Value Sodium Potassium Chloride Carbon Dioxide Anion Gap BUN Creatinine Estimated GFR POC Glucose 143 H 154 H 156 H Random Glucose Calcium Phosphorus Magnesium Total Bilirubin AST ALT Alkaline Phosphatase Total Protein Albumin Random Vancomycin MTS Gel Crossmatch 05/29/18 05/29/18 08:21 09:03 WBC RBC Hgb Hct MCV MCH MCHC RDW Plt Count MPV Prelim Diff (Auto) Neut % (Auto) Lymph % (Auto) [place] % (Auto) Eos % (Auto) Baso % (Auto) Neut # (Auto) Lymph # (Auto) [place] # (Auto) Eos # (Auto) Baso # (Auto) WBC Differential Seg Neuts % (Manual) Band Neuts % (Manual) Lymphocytes % (Manual) Monocytes % (Manual) Abs Neuts (Manual) Nucleated RBCs/100 WBC Differential Comment Platelet Estimate Platelet Morphology Target Cells Ovalocytes Ana Cells Puncture Site Patient Temperature O2 Saturation ABG pH ABG pCO2 ABG pO2 ABG HCO3 ABG O2 Content ABG Base Excess ABG Methemoglobin Hemoglobin Carboxyhemoglobin O2 Delivery Device Vent Setting Inspired O2 Critical Value Sodium Potassium Chloride Carbon Dioxide Anion Gap BUN Creatinine Estimated GFR POC Glucose 158 H 146 H Random Glucose Calcium Phosphorus Magnesium Total Bilirubin AST ALT Alkaline Phosphatase Total Protein Albumin Random Vancomycin MTS Gel Crossmatch Microbiology 05/28/18 14:40 Fungal Smear - Final Other No fungal elements seen 05/28/18 14:40 Fungal Smear - Final Wound - Arm No fungal elements seen 05/28/18 14:40 Gram Stain - Final Tissue - Other 05/28/18 14:40 Gram Stain - Final Wound - Arm 05/27/18 21:50 Gram Stain - Final Sputum - Endotracheal Sputum Culture - Preliminary gram negative rods 05/28/18 00:48 Aerobic Blood Culture - Preliminary Blood - Peripheral gram positive cocci 05/27/18 22:40 Aerobic Blood Culture - Preliminary Blood - Peripheral gram positive cocci Anaerobic Blood Culture - Preliminary No growth in 1 day Impressions Chest X-Ray 05/27/18 20:57 CONCLUSION: Intubation of the right main bronchus with ET tube tip extending into centimeters beyond the kimberley. Upper Extremity Ultrasound 05/28/18 00:00 CONCLUSION: 1. Right upper extremity AV (Hero) graft/catheter. 2. Small amount of nonocclusive thrombus in the proximal graft just beyond the radial artery anastomosis to the mid upper extremity level. 3. Complex perigraft fluid most prominently near the shoulder and chest wall measuring up to 3.5 x 1.8 cm. This most likely reflects perigraft hematoma although abscess cannot be excluded in the appropriate clinical setting. Chest X-Ray 05/28/18 05:00 CONCLUSION: Unchanged consolidation scattered throughout the left lung. Assessment and Plan - Assessment (1) Septic shock Code(s): A41.9 - Sepsis, unspecified organism; R65.21 - Severe sepsis with septic shock Status: Acute (2) Arteriovenous graft infection Code(s): T82.7XXA - Infection and inflammatory reaction due to other cardiac and vascular devices, implants and grafts, initial encounter Status: Acute - Plan POD#1 s/p excision of R neck and arm graft Slight improvement in pressor requirement, narciso HD 1. Continue pressor, vent wean 2. Continue broad antibiotics; f/u cultures 3. Will need nutrition at some point 4. wound ok
[2018-05-29] MEDS ORDERED: Gelatin 12 MM/7 MM Topical Foam TOPICAL PRN (10:27)
[2018-05-29] MEDS ORDERED: Acetaminophen 325 MG Tablet PO PRN (10:27)
[2018-05-29] MEDS ORDERED: Sod Chloride 0.9% Inj 1,000 ML IV.CONT PRN (10:27)
[2018-05-29] MEDS ORDERED: Sod Chloride 0.9% Inj 1,000 ML OTHER PRN (10:27)
[2018-05-29] MEDS: Heparin 10,000 UNITS/10 ML Vial (for IV use) OTHER PRN (11:01)
--- NOTE | 2018-05-29 13:37 | P.PNCC ---
Subjective Subjective Remarks/Hospital Course: Hospital Course: Mr. Laguerre is a 73-year-old -[place] Citizen male with past medical history significant for end-stage renal disease on hemodialysis, hypertension, complicated vascular access, HeRO graft placement by Dr. Umana on 09/23/2017, revision and PTFE replacement 12/25/17. who presented to the [facility] with probable sepsis and shock. Dr. Umana was contacted and patient was accepted for transfer to CVICU in [facility]. I immediately evaluated the patient on arrival to CVICU. Patient is currently on BiPAP (transported on BiPAP) severely encephalopathic hardly wakes up to sternal rub, with a rapid shallow breathing. BiPAP settings 18/8, 60% FiO2. He is literally unresponsive and not protecting airway. Currently he is on Levophed at 20 mcg/min with a map 65-70. He is also on amiodarone for atrial fibrillation with RVR. Because of lack of airway protection, severe encephalopathy, septic shock and hypoxia I proceeded with endotracheal intubation. His glottic opening was completely occluded with thick secretions, several minutes of suctioning needed to clear the secretions prior to intubation. Postintubation Levophed had to be increased to 30 mcg/min, I also placed an arterial line. All cultures, routine labs and lactic acid pending at this time. I have started him on vancomycin and Zosyn. Discussed case with Dr. Umana extensively Patient was unable to provide any history, according to the RN who got report patient apparently had GI bleed, underwent EGD with cauterization of duodenal ulcer few days ago. Will avoid heparin for DVT prophylaxis. His postintubation ABG showed severe hypoxia with significant AA gradient, metabolic acidosis, and a hemoglobin of 7.6. Currently Levophed is increased to 30 mcg/min, I will transfuse 1 unit PRBC. Chest x-ray shows pulmonary edema will arrange for hemodialysis once his shock is improves. At this time he will not be able to tolerate either hemodialysis or even CVVH Subjective: 05/28: initially evaluated around 6:30am. patient in refractory septic shock. added epinephrine to levophed and vasopressin. discussed with Dr. Umana. obtained u/s of the right upper extremity which demonstrated fluid collection surrounding the HeRO graft which was heterogenous in nature. added single dose of Amikacin to vanc/zosyn regimen to cover ESBL organisms. patient remains in shock. per verbal report from OSH, blood cultures growing MRSA. taken to OR urgently and large amount of purulent drainage debrided from around catheter. HeRO catheter removed. returns from OR persistently unstable. acidosis worsening. bicarb given. discussed with nephrology and will need CRRT. 05/29: s/p emergent debridement and removal of HeRO graft. today vasopressor doses are somewhat lower, although remains on levo,vaso,epi. lactate cleared. s/ p IHD today with 3L removal. blood growing MRSA. sputum growing e.coli, providencia, MRSA. wbc remains elevated. Objective Vital Signs / I&O: Vital Signs 05/28/18 15:00 05/28/18 16:35 05/28/18 16:50 Temperature 36.4 C L Pulse Rate 118 H 106 H Respiratory Rate 24 16 Blood Pressure 118/59 L Pulse Oximetry 98 100 100 05/28/18 17:12 05/28/18 19:00 05/28/18 20:16 Temperature 36.5 C Pulse Rate 77 Respiratory Rate 23 16 Blood Pressure 118/58 L Pulse Oximetry 100 100 100 05/28/18 20:20 05/28/18 23:00 05/29/18 03:00 Temperature 36.4 C 36.6 C Pulse Rate 78 59 L 55 L Respiratory Rate 22 16 16 Blood Pressure 149/65 H 151/66 H Pulse Oximetry 100 100 05/29/18 03:50 05/29/18 07:00 05/29/18 08:18 Temperature 36.6 C 36.6 C Pulse Rate 62 60 Respiratory Rate 16 11 L Blood Pressure 146/57 H Pulse Oximetry 99 99 05/29/18 08:55 05/29/18 08:56 05/29/18 11:00 Temperature 36.6 C Pulse Rate 74 61 Respiratory Rate 16 16 16 Blood Pressure 113/54 L Pulse Oximetry 99 100 05/29/18 13:22 Temperature Pulse Rate Respiratory Rate 16 Blood Pressure Pulse Oximetry 100 Intake & Output 05/28/18 05/29/18 05/29/18 18:59 06:59 18:59 Intake Total 2772.5 / 2772.5 3450 / 3450 1750 / 1750 Output Total 500 / 500 50 / 50 3300 / 3300 Balance 2272.5 / 2272.5 3400 / 3400 -1550 / -1550 Weight 133 kg Intake: IV 672.5 / 672.5 3450 / 3450 1750 / 1750 EPINEPHrine (1:1000) Inj 2 MG 250 / 250 492 / 492 In D5W Inj 248 ML @ 3 MCG/MIN 22.5 mls/hr IV.CONT TITRATE PRN Rx#:[id number] NovoLIN R (IV Infusion) 100 200 / 200 UNIT In NS Inj 99 ML @ 3 UNITS/ HR 3 mls/hr IV.CONT TITRATE PRN Rx#:[id number] Versed Inj 50 mg In 50 ml @ 2 19 / 19 50 / 50 174 / 174 MG/HR 2 mls/hr IV.CONT TITRATE PRN Rx#:[id number] Levophed Inj 8 MG In NS Inj 242 250 / 250 500 / 500 984 / 984 ML @ 2 MCG/MIN 3.75 mls/hr IV. CONT TITRATE PRN Rx#:[id number] Sodium Bicarbonate 8.4% Inj 75 2150 / 2150 MEQ In 1/2 Normal Saline Inj 1, 000 ML @ 500 mls/hr IV.CONT . Q2H9M TRACIE Rx#:[id number] Pitressin Inj 40 UNIT In D5W 100 / 100 100 / 100 Inj 98 ML @ 0.04 UNITS/MIN 6 mls/hr IV.CONT CONT TRACIE Rx#: [id number] Flexbumin 25% Inj 100 ML @ 60 100 / 100 100 / 100 100 / 100 mls/hr IV.SIG Q12H TRACIE Rx#: [id number] Amikin Inj 750 MG In NS Inj 100 103 / 103 ML @ 200 mls/hr IV.SIG STAT ONE Rx#:[id number] Zosyn 2.25 GM Premix 50 ML @ 100 / 100 100 / 100 100 mls/hr IV.SIG Q8H TRACIE Rx#: [id number] Vancomycin Inj 1,750 MG In NS 0.5 / 0.5 Inj 500 ML @ 250 mls/hr IV.SIG ONCE ONE Rx#:[id number] Oral 0 / 0 Anesthesia Amount 1200 / 1200 Intake (Blood Product) Amt 400 / 400 Rbc As-3 Leukoreduced Unit 400 / 400 [id number] Autotransfusion Amount 500 / 500 Output: Hemodialysis Amount 3300 / 3300 Estimated Blood Loss 400 / 400 Urine Amount (Catheter) 0 / 0 0 / 0 Suprapubic 0 / 0 0 / 0 Gastric Drainage 100 / 100 50 / 50 Orogastric Tube 100 / 100 50 / 50 Other: Date of Last Bowel Movement 05/27/18 05/27/18 # Bowel Movements 0 Result Diagrams: 05/29/18 04:20 05/29/18 04:20 Objective Remarks: GENERAL: 73-year-old obese -[place] Citizen male, lying in bed, intubated, critically ill. HEENT: Normocephalic. Atraumatic. Pupils equal, round, reactive, mucous membranes moist. NECK: Trachea is midline. There is no JVD. CHEST: PRVC. equal chest rise. Air entry markedly decreased with coarse rhonchi bilaterally CARDIOVASCULAR: Atrial fibrillation rate controlled, on levophed, vasopressin 0.04 units/min, epinephrine at 1 mcg/min. ABDOMEN: Soft, nontender, nondistended. No guarding. MUSCULOSKELETAL: Pulses 2+. No peripheral edema. Right upper extremity s/p debridement and wrapped in bandages. no significant bleeding from site. NEUROLOGICAL: RASS -4. intubated, sedated. Assessment and Plan - Problem List (1) Septic shock Code(s): A41.9 - Sepsis, unspecified organism; R65.21 - Severe sepsis with septic shock Status: Acute (2) Acute hypoxemic respiratory failure Code(s): J96.01 - Acute respiratory failure with hypoxia Status: Acute (3) Acute metabolic encephalopathy Code(s): G93.41 - Metabolic encephalopathy Status: Acute (4) Arteriovenous graft infection Code(s): T82.7XXA - Infection and inflammatory reaction due to other cardiac and vascular devices, implants and grafts, initial encounter Status: Acute (5) Atrial fibrillation with RVR Code(s): I48.91 - Unspecified atrial fibrillation Status: Acute (6) Pulmonary edema Code(s): J81.1 - Chronic pulmonary edema Status: Acute - Assessment and Plan Plan: Assessment: 73yM with ESRD and now HeRO graft infection, with MRSA and refractory septic shock. Additional comorbid HCAP pneumonia from OSH. continue supportive care. remains hemodynamically unstable and very critically ill. broad spectrum abx. Agree with vascular surgery that he will need enteral nutrition when out of shock. NEURO: Acute metabolic encephalopathy -Versed for sedation and ventilator synchrony, postintubation -Patient's unresponsiveness most likely secondary to severe sepsis and toxic metabolic encephalopathy RESP: Acute hypoxemic and hypercarbic respiratory failure Pulmonary edema -PRVC/AC -Ventilator bundle. DuoNeb every 6 hours scheduled and as needed - continue BSAbx - no SBT given shock. CV: Septic shock- persistent. Acute severe anion gap Metabolic acidosis Pulmonary edema Atrial fibrillation with RVR -He is in profound shock currently on levophed, vasopressin, epinephrine. - continue stress dose steroids. -No further fluid boluses due to pulmonary edema and severe hypoxia -A. fib rate is controlled, cannot anticoagulate due to history of recent GI bleed GI/HEME: Recent GI bleed Anemia requiring transfusion -N.p.o., IV Protonix -Due to recent GI bleed and hypotension transfuse 1 unit PRBC for hemoglobin of 7.6 -CBC is pending at this time hold off on enteral feeding given shock- will need to start tube feeds once out of shock. : End-stage renal disease on hemodialysis HeRO graft placed 09/2017 -On-call nephrology consult requested - continue HD per nephrology ID: Septic shock HeRO graft infection HCAP pneumonia- present on admission -Broad-spectrum antibiotics with vancomycin and Zosyn -ID consult -Dr. Umana consulted -Blood urine and sputum cultures - 05/27 blood cultures MRSA - 05/27 sputum cultures: providencia, MRSA, e.coli - will need 7 days coverage for HCAP pneumonia - will need 6 weeks coverage for MRSA graft infection ENDO: Type 2 diabetes Presumed Adrenal insufficiency -Sliding scale insulin -Stress dose steroids with hydrocortisone 100 mg IV every 8 hr PROPH: -Bilateral lower extremity SCDs. Avoid chemical DVT prophylaxis due to recent GI bleed. IV Protonix 40 mg every 12 LINES: -Patient has left IJ central line placed at [facility] -left radial arterial line 05/27 -right femoral vascath at OSH- most likely 05/26. CC time 55 min excluding procedure
--- NOTE | 2018-05-29 17:20 | P.PNNP ---
Subjective Interval history: Patient with MRSA infection status post removal of AV graft Physical Exam Vital signs: Vital Signs 05/28/18 19:00 05/28/18 20:16 05/28/18 20:20 Temperature 97.7 F Pulse Rate 77 78 Respiratory Rate 23 16 22 Blood Pressure 118/58 L Pulse Oximetry 100 100 05/28/18 23:00 05/29/18 03:00 05/29/18 03:50 Temperature 97.6 F 97.8 F Pulse Rate 59 L 55 L 62 Respiratory Rate 16 16 16 Blood Pressure 149/65 H 151/66 H Pulse Oximetry 100 100 99 05/29/18 07:00 05/29/18 08:18 05/29/18 08:55 Temperature 97.8 F 97.8 F Pulse Rate 60 74 Respiratory Rate 11 L 16 Blood Pressure 146/57 H Pulse Oximetry 99 05/29/18 08:56 05/29/18 11:00 05/29/18 13:22 Temperature 97.8 F Pulse Rate 61 Respiratory Rate 16 16 16 Blood Pressure 113/54 L Pulse Oximetry 99 100 100 05/29/18 15:00 Temperature 97.7 F Pulse Rate 60 Respiratory Rate 16 Blood Pressure 135/53 L Pulse Oximetry 100 Intake & Output 05/28/18 05/29/18 05/29/18 18:59 06:59 18:59 Intake Total 2772.5 / 2772.5 3450 / 3450 1848 / 1848 Output Total 500 / 500 50 / 50 3300 / 3300 Balance 2272.5 / 2272.5 3400 / 3400 -1452 / -1452 Weight 133 kg Intake: IV 672.5 / 672.5 3450 / 3450 1848 / 1848 EPINEPHrine (1:1000) Inj 2 MG 250 / 250 492 / 492 In D5W Inj 248 ML @ 3 MCG/MIN 22.5 mls/hr IV.CONT TITRATE PRN Rx#:[id number] NovoLIN R (IV Infusion) 100 200 / 200 UNIT In NS Inj 99 ML @ 3 UNITS/ HR 3 mls/hr IV.CONT TITRATE PRN Rx#:[id number] Versed Inj 50 mg In 50 ml @ 2 19 / 19 50 / 50 222 / 222 MG/HR 2 mls/hr IV.CONT TITRATE PRN Rx#:[id number] Levophed Inj 8 MG In NS Inj 242 250 / 250 500 / 500 984 / 984 ML @ 2 MCG/MIN 3.75 mls/hr IV. CONT TITRATE PRN Rx#:[id number] Sodium Bicarbonate 8.4% Inj 75 2150 / 2150 MEQ In 1/2 Normal Saline Inj 1, 000 ML @ 500 mls/hr IV.CONT . Q2H9M [facility] Rx#:[id number] Pitressin Inj 40 UNIT In D5W 100 / 100 100 / 100 Inj 98 ML @ 0.04 UNITS/MIN 6 mls/hr IV.CONT CONT [facility] Rx#: [id number] Flexbumin 25% Inj 100 ML @ 60 100 / 100 100 / 100 100 / 100 mls/hr IV.SIG Q12H [facility] Rx#: [id number] Amikin Inj 750 MG In NS Inj 100 103 / 103 ML @ 200 mls/hr IV.SIG STAT ONE Rx#:[id number] Zosyn 2.25 GM Premix 50 ML @ 100 / 100 100 / 100 50 / 50 100 mls/hr IV.SIG Q8H [facility] Rx#: [id number] Vancomycin Inj 1,750 MG In NS 0.5 / 0.5 Inj 500 ML @ 250 mls/hr IV.SIG ONCE ONE Rx#:[id number] Oral 0 / 0 Anesthesia Amount 1200 / 1200 Intake (Blood Product) Amt 400 / 400 Rbc As-3 Leukoreduced Unit 400 / 400 [id number] Autotransfusion Amount 500 / 500 Output: Hemodialysis Amount 3300 / 3300 Estimated Blood Loss 400 / 400 Urine Amount (Catheter) 0 / 0 0 / 0 Suprapubic 0 / 0 0 / 0 Gastric Drainage 100 / 100 50 / 50 Orogastric Tube 100 / 100 50 / 50 Other: Date of Last Bowel Movement 05/27/18 05/27/18 # Bowel Movements 0 - Constitutional chronically ill appearing - Routine Neck Exam Present: supple - Routine Respiratory Exam Present: CTA bilaterally - Routine Cardiovascular Exam Present: S1, S2 - Routine Abdominal Exam Present: soft, normoactive bowel sounds - Routine Extremities Exam Present: edema - Urinary Catheter Management Suprapubic Cath placed during this visit: no Assessment and Plan - Assessment (1) End stage renal disease on dialysis Code(s): N18.6 - End stage renal disease; Z99.2 - Dependence on renal dialysis Status: Acute (2) Acute hypoxemic respiratory failure Code(s): J96.01 - Acute respiratory failure with hypoxia Status: Acute (3) Arteriovenous graft infection Code(s): T82.7XXA - Infection and inflammatory reaction due to other cardiac and vascular devices, implants and grafts, initial encounter Status: Acute (4) Atrial fibrillation with RVR Code(s): I48.91 - Unspecified atrial fibrillation Status: Acute (5) Hemodialysis access, AV graft Code(s): Z99.2 - Dependence on renal dialysis Status: Acute - Plan Patient has sepsis and undergoing treatment with IV vancomycin and Zosyn He is on vasopressors keep his blood pressures steady He did well with hemodialysis 3.5 L removed plan to do another hemodialysis session tomorrow Vancomycin can be dosed after dialysis
--- NOTE | 2018-05-29 17:28 | P.PNWCN ---
Wound Care Nurse Consult Description: Received wound management consult of buttocks eval for bed from Doctor Mario Communicated with: VIANEY LAWSON and Doctor Melendez Recommendation: 1.Please cleanse buttock gently with soap and water of Remedy barrier wipes and pat dry. Apply Calazime skin protectant paste covering open wounds to buttock and gluteal cleft BID and PRN. Please vocera wound care nurse wound deterioration. 2.Turn patient every 2 hours from L side to R side offloading pressure from silvestre prominences. Limit time on back with P.T.and meals. 3. Please place patient on airapy bed or if not available a K4 bed from [facility]. Wound/Pressure Injury - Wound L buttock Wound Staging: Stage II Wound Assessment: Ongoing Wound Type: Pressure Injury Requested from Provider a Wound Care Consult: Yes (wound care saw patient today) Length: 2 (~2cm) Width: 3 (~3cm) Depth: 0.1 (~<0.1cm) Wound Bed Appearance: [place] Wound Bed Appearance: Wound bed is nopted with 100% pink tissue that appears partial thickness Periwound presents with denuded peeling skin Surrounding Tissue Temperature: Cool Drainage Description: Sanguinous Drainage Amount: Scant Drainage Odor: No Odor Dressing Status: Open to Air Topical: Calazime skin protectant paste Wound Margin Description: Wound margins are open and well defined. Wound has an elliptical shape Right Buttocks Wound Staging: Stage II Wound Assessment: Ongoing Wound Type: Pressure Injury Requested from Provider a Wound Care Consult: Yes (Wound care saw patient today) Length: 2 (~2cm) Width: 2 (~2cm) Depth: 0.1 (~0.1cm) Wound Bed Appearance: [place] Wound Bed Appearance: Wound presents with 100% pink tissue and appears partial thickness. Periwound presents with denuded, peeling skin Surrounding Tissue Temperature: Cool Drainage Description: Sanguinous Drainage Amount: Scant Drainage Odor: No Odor Dressing Status: Open to Air Topical: Calazime skin protectant paste Wound Margin Description: Wound margins are open and well defined. Wound has an elliptical shape gluteal cleft Wound Assessment: Ongoing Wound Type: Traumatic Wound Length: 10 (~10cm) Width: 0.5 (~0.5cm) Depth: 0.1 (~<0.1cm) Wound Bed Appearance: [place] Wound Bed Appearance: Wound bed presents with 100% pink tissue and is partial thickness with surrounding denuded peeling skin. Surrounding Tissue Temperature: Cool Drainage Description: Sanguinous Drainage Amount: Scant Drainage Odor: No Odor Dressing Status: Open to Air Topical: Calazime skin protectant paste Wound Margin Description: Wound margins are jagged - Additional Information Patient was seen on [facility] for wound management of buttocks for bed eval. Patient is sedated and intubated laying on Norma bed.Patient was turned with the total assistance of Irineo WINTERS, KHUSHBOO and rewriter toward the L side. Patient is difficult to reposition due to body habitus Patient is noted with open wounds on bilateral buttocks that appear to have mixed etiology of moisture, pressure and friction. Full description of wounds and measurements are noted above. Wounds are partial thickness and therefore are a stage II at this time. Gluteal cleft fissure is partial thickness and is not pressure related, Fissure is moisture, and friction related. All open wounds noted were left open to air. Calazime skin protectant paste was applied covering denuded skin and open wounds. Patient was positioned off bottom for pressure relief. Recommendations are noted above.
--- NOTE | 2018-05-29 19:02 | P.PNID ---
Subjective Remarks: sp removal of the AV graft blood clx growing MRSA on minimal pressor support Large amount of secretions remains on vent growing GNBs from sputum clx Antibiotics: vanco zosyn amikaicn - stopped Allergies/Adverse Reactions: Allergies No Known Allergies Allergy (Unknown, Uncoded 12/24/17 14:57) Objective Vital Signs 05/28/18 19:00 05/28/18 20:16 05/28/18 20:20 Temperature 97.7 F Pulse Rate 77 78 Respiratory Rate 23 16 22 Blood Pressure 118/58 L Pulse Oximetry 100 100 05/28/18 23:00 05/29/18 03:00 05/29/18 03:50 Temperature 97.6 F 97.8 F Pulse Rate 59 L 55 L 62 Respiratory Rate 16 16 16 Blood Pressure 149/65 H 151/66 H Pulse Oximetry 100 100 99 05/29/18 07:00 05/29/18 08:18 05/29/18 08:55 Temperature 97.8 F 97.8 F Pulse Rate 60 74 Respiratory Rate 11 L 16 Blood Pressure 146/57 H Pulse Oximetry 99 05/29/18 08:56 05/29/18 11:00 05/29/18 13:22 Temperature 97.8 F Pulse Rate 61 Respiratory Rate 16 16 16 Blood Pressure 113/54 L Pulse Oximetry 99 100 100 05/29/18 15:00 Temperature 97.7 F Pulse Rate 60 Respiratory Rate 16 Blood Pressure 135/53 L Pulse Oximetry 100 Intake & Output 05/28/18 05/29/18 05/29/18 18:59 06:59 18:59 Intake Total 2772.5 / 2772.5 3450 / 3450 2501 / 2501 Output Total 500 / 500 50 / 50 3300 / 3300 Balance 2272.5 / 2272.5 3400 / 3400 -799 / -799 Weight 133 kg Intake: IV 672.5 / 672.5 3450 / 3450 2501 / 2501 EPINEPHrine (1:1000) Inj 2 MG 250 / 250 608 / 608 In D5W Inj 248 ML @ 3 MCG/MIN 22.5 mls/hr IV.CONT TITRATE PRN Rx#:[id number] NovoLIN R (IV Infusion) 100 200 / 200 264 / 264 UNIT In NS Inj 99 ML @ 3 UNITS/ HR 3 mls/hr IV.CONT TITRATE PRN Rx#:[id number] Versed Inj 50 mg In 50 ml @ 2 19 / 19 50 / 50 230 / 230 MG/HR 2 mls/hr IV.CONT TITRATE PRN Rx#:[id number] Levophed Inj 8 MG In NS Inj 242 250 / 250 500 / 500 1035 / 1035 ML @ 2 MCG/MIN 3.75 mls/hr IV. CONT TITRATE PRN Rx#:[id number] Sodium Bicarbonate 8.4% Inj 75 2150 / 2150 MEQ In 1/2 Normal Saline Inj 1, 000 ML @ 500 mls/hr IV.CONT . Q2H9M [facility] Rx#:[id number] Pitressin Inj 40 UNIT In D5W 100 / 100 100 / 100 214 / 214 Inj 98 ML @ 0.04 UNITS/MIN 6 mls/hr IV.CONT CONT [facility] Rx#: [id number] Flexbumin 25% Inj 100 ML @ 60 100 / 100 100 / 100 100 / 100 mls/hr IV.SIG Q12H [facility] Rx#: [id number] Amikin Inj 750 MG In NS Inj 100 103 / 103 ML @ 200 mls/hr IV.SIG STAT ONE Rx#:[id number] Zosyn 2.25 GM Premix 50 ML @ 100 / 100 100 / 100 50 / 50 100 mls/hr IV.SIG Q8H [facility] Rx#: [id number] Vancomycin Inj 1,750 MG In NS 0.5 / 0.5 Inj 500 ML @ 250 mls/hr IV.SIG ONCE ONE Rx#:[id number] Oral 0 / 0 Anesthesia Amount 1200 / 1200 Intake (Blood Product) Amt 400 / 400 Rbc As-3 Leukoreduced Unit 400 / 400 [id number] Autotransfusion Amount 500 / 500 Output: Hemodialysis Amount 3300 / 3300 Estimated Blood Loss 400 / 400 Urine Amount (Catheter) 0 / 0 0 / 0 Suprapubic 0 / 0 0 / 0 Gastric Drainage 100 / 100 50 / 50 Orogastric Tube 100 / 100 50 / 50 Other: Date of Last Bowel Movement 05/27/18 05/27/18 # Bowel Movements 0 05/28/18 14:40 Other Acid Fast Bacilli Smear - Final No acid fast bacilli seen 05/28/18 14:40 Other Mycobacterial Culture - Pending 05/28/18 14:40 Wound - Arm Acid Fast Bacilli Smear - Final No acid fast bacilli seen 05/28/18 14:40 Wound - Arm Mycobacterial Culture - Pending 05/28/18 14:40 Tissue - Other Gram Stain - Final 05/28/18 14:40 Tissue - Other Wound Culture - Preliminary S. aureus MRSA 05/28/18 14:40 Wound - Arm Gram Stain - Final 05/28/18 14:40 Wound - Arm Wound Culture - Preliminary S. aureus MRSA 05/28/18 00:48 Blood - Peripheral Aerobic Blood Culture - Final S. aureus MRSA 05/28/18 00:48 Blood - Peripheral Anaerobic Blood Culture - Preliminary No growth in 1 day 05/27/18 22:40 Blood - Peripheral Aerobic Blood Culture - Preliminary S. aureus MRSA 05/27/18 22:40 Blood - Peripheral Anaerobic Blood Culture - Preliminary No growth in 2 days 05/27/18 21:50 Sputum - Endotracheal Gram Stain - Final 05/27/18 21:50 Sputum - Endotracheal Sputum Culture - Preliminary Escherichia coli Providencia stuartii S. aureus MRSA 05/28/18 14:40 Other Fungal Smear - Final No fungal elements seen 05/28/18 14:40 Other Fungal Culture - Pending 05/28/18 14:40 Wound - Arm Fungal Smear - Final No fungal elements seen 05/28/18 14:40 Wound - Arm Fungal Culture - Pending Lab - Hematology Results 05/27/18 05/28/18 05/28/18 22:35 04:25 04:25 WBC 25.0 H 23.1 H RBC 2.85 L 2.71 L Hgb 7.9 L 7.5 L Hct 23.8 L 22.3 L MCV 83.4 82.1 MCH 27.8 27.8 MCHC 33.3 33.9 RDW 18.3 H 18.0 H Plt Count 112 L 103 L MPV 9.0 8.0 Prelim Diff (Auto) Slide review pending Neut % (Auto) 87.8 H Lymph % (Auto) 6.5 L [place] % (Auto) 4.9 Eos % (Auto) 0.2 Baso % (Auto) 0.6 Neut # (Auto) 20.3 H Lymph # (Auto) 1.5 [place] # (Auto) 1.1 H Eos # (Auto) 0.1 Baso # (Auto) 0.1 WBC Differential Manual diff final Seg Neuts % (Manual) 90 H Band Neuts % (Manual) 6 Lymphocytes % (Manual) 1 L Monocytes % (Manual) 1 Metamyelocytes % (Man) 1 Myelocytes % (Man) 1 H Abs Neuts (Manual) 22.6 H Nucleated RBCs/100 WBC 1 H Differential Comment . Toxic Granulation 2+ H Platelet Estimate Low L Platelet Morphology Normal Target Cells 1+ H Ovalocytes 1+ H [place] Cells 1+ H Acanthocytes (Spur) Occ H Keratocytes Occ H ESR 40 H 05/28/18 05/29/18 16:00 04:20 WBC 22.9 H 22.8 H RBC 3.18 L 3.16 L Hgb 9.1 L 9.0 L Hct 27.2 L 25.7 L MCV 85.6 D 81.3 D MCH 28.5 28.4 MCHC 33.3 34.9 RDW 17.8 H 17.3 H Plt Count 105 L 109 L MPV 8.4 8.0 Prelim Diff (Auto) Slide review pending Neut % (Auto) 89.6 H Lymph % (Auto) 4.9 L [place] % (Auto) 4.5 Eos % (Auto) 0.1 Baso % (Auto) 0.9 Neut # (Auto) 20.5 H Lymph # (Auto) 1.1 [place] # (Auto) 1.0 H Eos # (Auto) 0.0 Baso # (Auto) 0.2 WBC Differential Manual diff final Seg Neuts % (Manual) 87 H Band Neuts % (Manual) 5 Lymphocytes % (Manual) 6 L Monocytes % (Manual) 2 Metamyelocytes % (Man) Myelocytes % (Man) Abs Neuts (Manual) 21.1 H Nucleated RBCs/100 WBC 1 H Differential Comment . Toxic Granulation Platelet Estimate Low L Platelet Morphology Normal Target Cells 1+ H Ovalocytes 1+ H Ana Cells 1+ H Acanthocytes (Spur) Keratocytes ESR Lab - Chemistry Results 05/27/18 05/27/18 05/27/18 22:35 22:35 22:35 Sodium 144 Potassium 4.4 Chloride 108 H Carbon Dioxide 21.3 Anion Gap 15 BUN 68 H Creatinine 6.75 H Estimated GFR 10 L POC Glucose Random Glucose 184 H Lactic Acid 1.2 Calcium 8.2 L Phosphorus Magnesium 2.0 Total Bilirubin 0.6 AST 41 H ALT 30 Alkaline Phosphatase 95 Ammonia Less than 10 L C-Reactive Protein Total Protein 6.5 Albumin 1.6 L 05/28/18 05/28/18 05/28/18 00:54 04:25 04:25 Sodium 142 Potassium 4.9 Chloride 106 Carbon Dioxide 19.7 L Anion Gap 16 H BUN 72 H Creatinine 7.03 H Estimated GFR 9 L POC Glucose 199 H Random Glucose 242 H Lactic Acid Calcium 8.4 L Phosphorus 6.7 H Magnesium 2.1 Total Bilirubin 0.6 AST 33 ALT 30 Alkaline Phosphatase 96 Ammonia C-Reactive Protein 22.00 H Total Protein 6.7 Albumin 1.8 L 05/28/18 05/28/18 05/28/18 06:11 12:03 16:15 Sodium Potassium Chloride Carbon Dioxide Anion Gap BUN Creatinine Estimated GFR POC Glucose 231 H 356 H 372 H Random Glucose Lactic Acid Calcium Phosphorus Magnesium Total Bilirubin AST ALT Alkaline Phosphatase Ammonia C-Reactive Protein Total Protein Albumin 05/28/18 05/28/18 05/28/18 18:18 19:42 20:45 Sodium Potassium Chloride Carbon Dioxide Anion Gap BUN Creatinine Estimated GFR POC Glucose 341 H 296 H 237 H Random Glucose Lactic Acid Calcium Phosphorus Magnesium Total Bilirubin AST ALT Alkaline Phosphatase Ammonia C-Reactive Protein Total Protein Albumin 05/28/18 05/28/18 05/28/18 21:44 22:47 23:49 Sodium Potassium Chloride Carbon Dioxide Anion Gap BUN Creatinine Estimated GFR POC Glucose 210 H 195 H 188 H Random Glucose Lactic Acid Calcium Phosphorus Magnesium Total Bilirubin AST ALT Alkaline Phosphatase Ammonia C-Reactive Protein Total Protein Albumin 05/29/18 05/29/18 05/29/18 00:53 01:56 02:59 Sodium Potassium Chloride Carbon Dioxide Anion Gap BUN Creatinine Estimated GFR POC Glucose 153 H 138 H 140 H Random Glucose Lactic Acid Calcium Phosphorus Magnesium Total Bilirubin AST ALT Alkaline Phosphatase Ammonia C-Reactive Protein Total Protein Albumin 05/29/18 05/29/18 05/29/18 04:01 04:20 05:21 Sodium 144 Potassium 3.8 D Chloride 104 Carbon Dioxide 29.4 D Anion Gap 11 BUN 72 H Creatinine 6.84 H Estimated GFR 10 L POC Glucose 105 143 H Random Glucose 122 H D Lactic Acid Calcium 7.8 L Phosphorus 5.7 H D Magnesium 2.1 Total Bilirubin 0.5 AST 19 ALT 25 Alkaline Phosphatase 81 Ammonia C-Reactive Protein Total Protein 6.9 Albumin 2.1 L 05/29/18 05/29/18 05/29/18 06:25 07:23 08:21 Sodium Potassium Chloride Carbon Dioxide Anion Gap BUN Creatinine Estimated GFR POC Glucose 154 H 156 H 158 H Random Glucose Lactic Acid Calcium Phosphorus Magnesium Total Bilirubin AST ALT Alkaline Phosphatase Ammonia C-Reactive Protein Total Protein Albumin 05/29/18 05/29/18 05/29/18 09:03 10:21 11:15 Sodium Potassium Chloride Carbon Dioxide Anion Gap BUN Creatinine Estimated GFR POC Glucose 146 H 111 H 104 Random Glucose Lactic Acid Calcium Phosphorus Magnesium Total Bilirubin AST ALT Alkaline Phosphatase Ammonia C-Reactive Protein Total Protein Albumin 05/29/18 05/29/18 05/29/18 11:55 12:44 14:12 Sodium Potassium Chloride Carbon Dioxide Anion Gap BUN Creatinine Estimated GFR POC Glucose 110 164 H 175 H Random Glucose Lactic Acid Calcium Phosphorus Magnesium Total Bilirubin AST ALT Alkaline Phosphatase Ammonia C-Reactive Protein Total Protein Albumin 05/29/18 05/29/18 05/29/18 15:59 16:49 17:55 Sodium Potassium Chloride Carbon Dioxide Anion Gap BUN Creatinine Estimated GFR POC Glucose 135 H 126 H 89 Random Glucose Lactic Acid Calcium Phosphorus Magnesium Total Bilirubin AST ALT Alkaline Phosphatase Ammonia C-Reactive Protein Total Protein Albumin Imaging: ITS Impressions Upper Extremity Ultrasound 05/28/18 00:00 CONCLUSION: 1. Right upper extremity AV (Hero) graft/catheter. 2. Small amount of nonocclusive thrombus in the proximal graft just beyond the radial artery anastomosis to the mid upper extremity level. 3. Complex perigraft fluid most prominently near the shoulder and chest wall measuring up to 3.5 x 1.8 cm. This most likely reflects perigraft hematoma although abscess cannot be excluded in the appropriate clinical setting. Chest X-Ray 05/28/18 05:00 CONCLUSION: Unchanged consolidation scattered throughout the left lung. Physical Exam: GENERAL: NAD SKIN: Warm and dry. HEAD: Atraumatic. Normocephalic. EYES: Pupils equal and round. No scleral icterus. No injection or drainage. ENT: No nasal bleeding or discharge. Mucous membranes pink and moist. NECK: Trachea midline. No JVD. CARDIOVASCULAR: Regular rate and rhythm. RESPIRATORY: No accessory muscle use. Rhonchi to auscultation. Breath sounds equal bilaterally. GASTROINTESTINAL: Abdomen soft, non-tender, nondistended. Hepatic and splenic margins not palpable. MUSCULOSKELETAL: Extremities without clubbing, cyanosis, +edema. RUE with well approximated incision, stitches in place, minimla drainage no erythema edema less prominent NEUROLOGICAL: sedatd PSYCHIATRIC: unable to assess Assessment and Plan - Plan MRSA sepsis - sustained bacteremia: 2 cultures by 6 days Indwelling prosthetic vascular device (complex AV graft extending to R atrium ) Liekly infected PD vascuklar synthetic graft: abscess vs infected hematome Sepsis, septic shock ESRD, on HD Acute VDRF Hypotension, requiring pressors: resolving PNA, GNBs. Both isolates S to CFTX cont vancomycin: keep trough 15-20 change zosyn to CFTX fu repeat BC Critically ill, stable dw RN
[2018-05-30] MEDS: Midazolam 50 MG/50 ML Inj 50 MG/50 ML BAG IV.CONT PRN (04:54)
[2018-05-30] MEDS: Insulin Regular (For Infusion) 100 UNIT in Sodium Chlor 0.9% Inj 99 ML IV.CONT PRN (05:07)
[2018-05-30 06:29] LABS: ABG Base Excess 0.4 mmol/L (-2-2); ABG PCO2 40 mmHg (38-42); ABG PO2 141 mmHG (61-120)
[2018-05-30 06:37] LABS: Mean Corpuscular HGB Conc 34.4 % (32.0-36.0); Mean Corpuscular Hemoglobin 28.5 pg (27.0-34.0); Mean Corpuscular Volume 82.9 fL (80.0-100.0); Mean Platelet Volume 8.2 fL (7.0-11.0); Platelet Count 73 th/mm3 (150-450); Red Blood Count 2.46 mil/mm3 (4.50-5.90); Red Cell Distribution Width 17.3 % (11.6-17.2); White Blood Count 12.7 th/mm3 (4.0-11.0)
[2018-05-30 06:43] LABS: Hematocrit 20.4 % (39.0-51.0)
[2018-05-30] MEDS: Chlorhexidine Gluconate 2% 1 Pack (2 Cloths) TOPICAL SCH (06:47)
[2018-05-30] MEDS: Hydrocortisone Sod Succinate 100 MG Vial IV.PUSH SCH ×4 (06:47→23:28)
[2018-05-30] MEDS: Sodium Chlor 0.9% Inj 100 ML IV.SIG SCH ×10 (06:48→22:47)
[2018-05-30] MEDS: Piperacil/Tazo 2.25 GM Premix 50 ML IV.SIG SCH ×2 (06:50→14:11)
[2018-05-30 06:58] LABS: Albumin 2.8 g/dL (3.4-5.0); Anion Gap 13 meq/L (5-15); Blood Urea Nitrogen 64 mg/dL (7-18); Calcium 8.7 mg/dL (8.5-10.1); Carbon Dioxide 26.1 meq/L (21.0-32.0); Chloride 105 meq/L (98-107); Glomerular Filtration Rate 12 mL/min (>89); Glucose,Random 104 mg/dL (74-106); Magnesium 2.2 mg/dL (1.5-2.5); Potassium 3.8 meq/L (3.5-5.1); Sodium 144 meq/L (136-145)
[2018-05-30 07:00] LABS: Alanine Aminotransferase 19 U/L (12-78); Aspartate Aminotransferase 26 U/L (15-37); Phosphorus 6.3 mg/dL (2.5-4.9)
[2018-05-30 07:03] LABS: Alkaline Phosphatase 101 U/L (45-117); Total Protein 6.9 g/dL (6.4-8.2)
[2018-05-30] MEDS: Senna/Docusate Sodium 8.6/50 MG Tablet PO SCH ×2 (09:32→21:32)
[2018-05-30] MEDS: Heparin 10,000 UNITS/10 ML Vial (for IV use) OTHER PRN (10:33)
[2018-05-30] MEDS: Albumin Human 25% Inj 100 ML IV.SIG SCH ×2 (10:34→22:46)
[2018-05-30] MEDS: Vancomycin Inj 1,000 MG in Sodium Chlor 0.9% Inj 250 ML IV.SIG SCH (10:35)
[2018-05-30] MEDS: Pantoprazole Inj 40 MG Vial IV.PUSH SCH ×2 (12:27→22:50)
[2018-05-30] MEDS ORDERED: fentaNYL 10 mcg/mL Premix Drip 2,500 MCG/250 ML BAG IV.SIG PRN (14:09)
[2018-05-30] MEDS: Vasopressin Inj 40 UNIT in Dextrose 5% in Water Inj 98 ML IV.CONT SCH ×2 (14:12)
--- NOTE | 2018-05-30 14:14 | P.PNCC ---
Subjective Subjective Remarks/Hospital Course: Hospital Course: Mr. Laguerre is a 73-year-old -[place] male with past medical history significant for end-stage renal disease on hemodialysis, hypertension, complicated vascular access, HeRO graft placement by Dr. Umana on 09/23/2017, revision and PTFE replacement 12/25/17. who presented to the [facility] with probable sepsis and shock. Dr. Umana was contacted and patient was accepted for transfer to CVICU in [facility]. I immediately evaluated the patient on arrival to CVICU. Patient is currently on BiPAP (transported on BiPAP) severely encephalopathic hardly wakes up to sternal rub, with a rapid shallow breathing. BiPAP settings 18/8, 60% FiO2. He is literally unresponsive and not protecting airway. Currently he is on Levophed at 20 mcg/min with a map 65-70. He is also on amiodarone for atrial fibrillation with RVR. Because of lack of airway protection, severe encephalopathy, septic shock and hypoxia I proceeded with endotracheal intubation. His glottic opening was completely occluded with thick secretions, several minutes of suctioning needed to clear the secretions prior to intubation. Postintubation Levophed had to be increased to 30 mcg/min, I also placed an arterial line. All cultures, routine labs and lactic acid pending at this time. I have started him on vancomycin and Zosyn. Discussed case with Dr. Umana extensively Patient was unable to provide any history, according to the RN who got report patient apparently had GI bleed, underwent EGD with cauterization of duodenal ulcer few days ago. Will avoid heparin for DVT prophylaxis. His postintubation ABG showed severe hypoxia with significant AA gradient, metabolic acidosis, and a hemoglobin of 7.6. Currently Levophed is increased to 30 mcg/min, I will transfuse 1 unit PRBC. Chest x-ray shows pulmonary edema will arrange for hemodialysis once his shock is improves. At this time he will not be able to tolerate either hemodialysis or even CVVH Subjective: 05/28: initially evaluated around 6:30am. patient in refractory septic shock. added epinephrine to levophed and vasopressin. discussed with Dr. Umana. obtained u/s of the right upper extremity which demonstrated fluid collection surrounding the HeRO graft which was heterogenous in nature. added single dose of Amikacin to vanc/zosyn regimen to cover ESBL organisms. patient remains in shock. per verbal report from OSH, blood cultures growing MRSA. taken to OR urgently and large amount of purulent drainage debrided from around catheter. HeRO catheter removed. returns from OR persistently unstable. acidosis worsening. bicarb given. discussed with nephrology and will need CRRT. 05/29: s/p emergent debridement and removal of HeRO graft. today vasopressor doses are somewhat lower, although remains on levo,vaso,epi. lactate cleared. s/ p IHD today with 3L removal. blood growing MRSA. sputum growing e.coli, providencia, MRSA. wbc remains elevated. 05/30: off vasopressors. getting IHD again today. hgb 7 and receiving 1 unit prbc during dialysis. encephalopathy persists, not following commands. Objective Vital Signs / I&O: Vital Signs 05/29/18 15:00 05/29/18 18:50 05/29/18 19:00 Temperature 36.5 C 36.6 C Pulse Rate 60 58 L 46 L Respiratory Rate 16 16 16 Blood Pressure 135/53 L 114/54 L Pulse Oximetry 100 98 98 05/29/18 22:32 05/29/18 22:35 05/29/18 23:00 Temperature 36.5 C Pulse Rate 46 L 51 L Respiratory Rate 16 16 22 Blood Pressure 120/53 L Pulse Oximetry 99 99 05/30/18 00:13 05/30/18 03:00 05/30/18 03:05 Temperature 36.4 C Pulse Rate 48 L 43 L Respiratory Rate 16 16 16 Blood Pressure 132/59 L Pulse Oximetry 98 98 99 05/30/18 07:00 05/30/18 08:35 05/30/18 11:00 Temperature Pulse Rate 53 L 54 L Respiratory Rate 18 Blood Pressure 136/57 L 114/53 L Pulse Oximetry 99 98 100 05/30/18 11:03 05/30/18 11:19 Temperature 36.4 C Pulse Rate 54 L 51 L Respiratory Rate 16 16 Blood Pressure 104/52 L 114/53 L Pulse Oximetry 99 99 Intake & Output 05/29/18 05/30/18 05/30/18 18:59 06:59 18:59 Intake Total 2601 / 2601 292 / 292 550 / 550 Output Total 3300 / 3300 50 / 50 4000 / 4000 Balance -699 / -699 242 / 242 -3450 / -3450 Weight 129 kg Intake: IV 2601 / 2601 292 / 292 150 / 150 EPINEPHrine (1:1000) Inj 2 MG 608 / 608 In D5W Inj 248 ML @ 3 MCG/MIN 22.5 mls/hr IV.CONT TITRATE PRN Rx#:[id number] NovoLIN R (IV Infusion) 100 264 / 264 UNIT In NS Inj 99 ML @ 3 UNITS/ HR 3 mls/hr IV.CONT TITRATE PRN Rx#:[id number] Versed Inj 50 mg In 50 ml @ 2 230 / 230 42 / 42 MG/HR 2 mls/hr IV.CONT TITRATE PRN Rx#:[id number] Levophed Inj 8 MG In NS Inj 242 1035 / 1035 ML @ 2 MCG/MIN 3.75 mls/hr IV. CONT TITRATE PRN Rx#:[id number] Pitressin Inj 40 UNIT In D5W 214 / 214 Inj 98 ML @ 0.04 UNITS/MIN 6 mls/hr IV.CONT CONT TRACIE Rx#: [id number] Flexbumin 25% Inj 100 ML @ 60 200 / 200 100 / 100 100 / 100 mls/hr IV.SIG Q12H TRACIE Rx#: [id number] Zosyn 2.25 GM Premix 50 ML @ 50 / 50 50 / 50 50 / 50 100 mls/hr IV.SIG Q8H TRACIE Rx#: [id number] Rocephin Inj 1,000 MG In NS Inj 100 / 100 100 ML @ 200 mls/hr IV.SIG Q24H TRACIE Rx#:[id number] Oral 0 / 0 Intake (Blood Product) Amt 400 / 400 Rbc As-3 Leukoreduced Unit 400 / 400 [id number] Output: Hemodialysis Amount 3300 / 3300 4000 / 4000 Urine Amount (Catheter) 0 / 0 0 / 0 Suprapubic 0 / 0 0 / 0 Gastric Drainage 50 / 50 Orogastric Tube 50 / 50 Other: Date of Last Bowel Movement 05/30/18 05/30/18 # Bowel Movements 0 0 # Incontinent Bowel Movements 1 Result Diagrams: 05/30/18 04:09 05/30/18 04:09 Objective Remarks: GENERAL: 73-year-old obese -[place] male, lying in bed, intubated, critically ill. HEENT: Normocephalic. Atraumatic. Pupils equal, round, reactive, mucous membranes moist. NECK: Trachea is midline. There is no JVD. CHEST: PRVC. equal chest rise. Air entry markedly decreased with coarse rhonchi bilaterally CARDIOVASCULAR: Atrial fibrillation rate controlled. off vasopressors. ABDOMEN: Soft, nontender, nondistended. No guarding. MUSCULOSKELETAL: Pulses 2+. No peripheral edema. Right upper extremity s/p debridement and wrapped in bandages. no significant bleeding from site. NEUROLOGICAL: RASS -4. intubated, sedated. Assessment and Plan - Problem List (1) Septic shock Code(s): A41.9 - Sepsis, unspecified organism; R65.21 - Severe sepsis with septic shock Status: Acute (2) Acute hypoxemic respiratory failure Code(s): J96.01 - Acute respiratory failure with hypoxia Status: Acute (3) Acute metabolic encephalopathy Code(s): G93.41 - Metabolic encephalopathy Status: Acute (4) Arteriovenous graft infection Code(s): T82.7XXA - Infection and inflammatory reaction due to other cardiac and vascular devices, implants and grafts, initial encounter Status: Acute (5) Atrial fibrillation with RVR Code(s): I48.91 - Unspecified atrial fibrillation Status: Acute (6) Pulmonary edema Code(s): J81.1 - Chronic pulmonary edema Status: Acute - Assessment and Plan Plan: Assessment: 73yM with ESRD and now HeRO graft infection, with MRSA and refractory septic shock. Additional comorbid HCAP pneumonia from OSH. continue supportive care. after HD, will need to start daily sedation vacations. start enteral feeds. NEURO: Acute metabolic encephalopathy -transition to propofol for goal RASS -2. - daily sedation vacation. -Patient's unresponsiveness most likely secondary to severe sepsis and toxic metabolic encephalopathy RESP: Acute hypoxemic and hypercarbic respiratory failure Pulmonary edema HCAP aspiration pneumonia- present on admission -PRVC/AC -Ventilator bundle. DuoNeb every 6 hours scheduled and as needed - continue abx - start SAT/SBT daily CV: Septic shock- improving. Acute severe anion gap Metabolic acidosis- resolved Pulmonary edema Atrial fibrillation with RVR - start weaning stress dose steroids - HD daily for volume removal and electrolyte/acid-base abnormalities -A. fib rate is controlled, cannot anticoagulate due to history of recent GI bleed GI/HEME: Recent GI bleed Anemia requiring transfusion -start nepro tube feeds - nutrition consult for TF recs - IV Protonix -CBC is pending at this time : End-stage renal disease on hemodialysis HeRO graft placed 09/2017 -On-call nephrology consult requested - continue HD per nephrology ID: Septic shock- improving. HeRO graft infection HCAP pneumonia- present on admission -Broad-spectrum antibiotics -ID consult -Dr. Umana consulted -Blood urine and sputum cultures - 05/27 blood cultures MRSA - 05/27 sputum cultures: providencia, MRSA, e.coli - will need 7 days coverage for HCAP pneumonia - will need 6 weeks coverage for MRSA graft infection - repeat blood cultures today to eval for clearance. ENDO: Type 2 diabetes Presumed Adrenal insufficiency -Sliding scale insulin -start hydrocortisone taper. PROPH: -Bilateral lower extremity SCDs. Avoid chemical DVT prophylaxis due to recent GI bleed. IV Protonix 40 mg every 12 LINES: -Patient has left IJ central line placed at [facility]: keep at least 1 additional day. -left radial arterial line 05/27 -right femoral vascath at OSH- most likely 05/26. CC time 41 min excluding procedure
--- NOTE | 2018-05-30 14:48 | P.PNID ---
Subjective Remarks: sp removal of the AV graft blood clx growing MRSA on minimal pressor support Large amount of secretions remains on vent growing GNBs from sputum clx afebrile + large amou t of draiange from te inchsiion (proximal aspect) Antibiotics: vanco zosyn Allergies/Adverse Reactions: Allergies No Known Allergies Allergy (Unknown, Uncoded 12/24/17 14:57) Objective Vital Signs 05/29/18 15:00 05/29/18 18:50 05/29/18 19:00 Temperature 97.7 F 97.9 F Pulse Rate 60 58 L 46 L Respiratory Rate 16 16 16 Blood Pressure 135/53 L 114/54 L Pulse Oximetry 100 98 98 05/29/18 22:32 05/29/18 22:35 05/29/18 23:00 Temperature 97.7 F Pulse Rate 46 L 51 L Respiratory Rate 16 16 22 Blood Pressure 120/53 L Pulse Oximetry 99 99 05/30/18 00:13 05/30/18 03:00 05/30/18 03:05 Temperature 97.6 F Pulse Rate 48 L 43 L Respiratory Rate 16 16 16 Blood Pressure 132/59 L Pulse Oximetry 98 98 99 05/30/18 07:00 05/30/18 08:35 05/30/18 10:30 Temperature Pulse Rate 53 L Respiratory Rate 18 18 Blood Pressure 136/57 L Pulse Oximetry 99 98 97 05/30/18 11:00 05/30/18 11:03 05/30/18 11:19 Temperature 97.6 F Pulse Rate 54 L 54 L 51 L Respiratory Rate 16 16 Blood Pressure 114/53 L 104/52 L 114/53 L Pulse Oximetry 100 99 99 05/30/18 13:55 Temperature Pulse Rate Respiratory Rate 19 Blood Pressure Pulse Oximetry 99 Intake & Output 05/29/18 05/30/18 05/30/18 18:59 06:59 18:59 Intake Total 2601 / 2601 292 / 292 550 / 550 Output Total 3300 / 3300 50 / 50 4000 / 4000 Balance -699 / -699 242 / 242 -3450 / -3450 Weight 129 kg Intake: IV 2601 / 2601 292 / 292 150 / 150 EPINEPHrine (1:1000) Inj 2 MG 608 / 608 In D5W Inj 248 ML @ 3 MCG/MIN 22.5 mls/hr IV.CONT TITRATE PRN Rx#:[id number] NovoLIN R (IV Infusion) 100 264 / 264 UNIT In NS Inj 99 ML @ 3 UNITS/ HR 3 mls/hr IV.CONT TITRATE PRN Rx#:[id number] Versed Inj 50 mg In 50 ml @ 2 230 / 230 42 / 42 MG/HR 2 mls/hr IV.CONT TITRATE PRN Rx#:[id number] Levophed Inj 8 MG In NS Inj 242 1035 / 1035 ML @ 2 MCG/MIN 3.75 mls/hr IV. CONT TITRATE PRN Rx#:[id number] Pitressin Inj 40 UNIT In D5W 214 / 214 Inj 98 ML @ 0.04 UNITS/MIN 6 mls/hr IV.CONT CONT TRACIE Rx#: [id number] Flexbumin 25% Inj 100 ML @ 60 200 / 200 100 / 100 100 / 100 mls/hr IV.SIG Q12H TRACIE Rx#: [id number] Zosyn 2.25 GM Premix 50 ML @ 50 / 50 50 / 50 50 / 50 100 mls/hr IV.SIG Q8H TRACIE Rx#: [id number] Rocephin Inj 1,000 MG In NS Inj 100 / 100 100 ML @ 200 mls/hr IV.SIG Q24H TRACIE Rx#:[id number] Oral 0 / 0 Intake (Blood Product) Amt 400 / 400 Rbc As-3 Leukoreduced Unit 400 / 400 [id number] Output: Hemodialysis Amount 3300 / 3300 4000 / 4000 Urine Amount (Catheter) 0 / 0 0 / 0 Suprapubic 0 / 0 0 / 0 Gastric Drainage 50 / 50 Orogastric Tube 50 / 50 Other: Date of Last Bowel Movement 05/30/18 05/30/18 # Bowel Movements 0 0 # Incontinent Bowel Movements 1 05/28/18 14:40 Tissue - Other Gram Stain - Final 05/28/18 14:40 Tissue - Other Wound Culture - Final S. aureus MRSA 05/28/18 14:40 Wound - Arm Gram Stain - Final 05/28/18 14:40 Wound - Arm Wound Culture - Final S. aureus MRSA 05/27/18 21:50 Sputum - Endotracheal Gram Stain - Final 05/27/18 21:50 Sputum - Endotracheal Sputum Culture - Final Escherichia coli Providencia stuartii S. aureus MRSA 05/28/18 00:48 Blood - Peripheral Aerobic Blood Culture - Final S. aureus MRSA 05/28/18 00:48 Blood - Peripheral Anaerobic Blood Culture - Preliminary No growth in 2 days 05/27/18 22:40 Blood - Peripheral Aerobic Blood Culture - Final S. aureus MRSA 05/27/18 22:40 Blood - Peripheral Anaerobic Blood Culture - Preliminary No growth in 3 days 05/28/18 14:40 Other Acid Fast Bacilli Smear - Final No acid fast bacilli seen 05/28/18 14:40 Other Mycobacterial Culture - Pending 05/28/18 14:40 Wound - Arm Acid Fast Bacilli Smear - Final No acid fast bacilli seen 05/28/18 14:40 Wound - Arm Mycobacterial Culture - Pending 05/28/18 14:40 Other Fungal Smear - Final No fungal elements seen 05/28/18 14:40 Other Fungal Culture - Pending 05/28/18 14:40 Wound - Arm Fungal Smear - Final No fungal elements seen 05/28/18 14:40 Wound - Arm Fungal Culture - Pending Lab - Hematology Results 05/28/18 05/29/18 05/30/18 16:00 04:20 04:09 WBC 22.9 H 22.8 H 12.7 H RBC 3.18 L 3.16 L 2.46 L Hgb 9.1 L 9.0 L 7.0 L D Hct 27.2 L 25.7 L 20.4 L* MCV 85.6 D 81.3 D 82.9 MCH 28.5 28.4 28.5 MCHC 33.3 34.9 34.4 RDW 17.8 H 17.3 H 17.3 H Plt Count 105 L 109 L 73 L D MPV 8.4 8.0 8.2 Prelim Diff (Auto) Slide review pending Neut % (Auto) 89.6 H Lymph % (Auto) 4.9 L Rush % (Auto) 4.5 Eos % (Auto) 0.1 Baso % (Auto) 0.9 Neut # (Auto) 20.5 H Lymph # (Auto) 1.1 Rush # (Auto) 1.0 H Eos # (Auto) 0.0 Baso # (Auto) 0.2 WBC Differential Manual diff final Seg Neuts % (Manual) 87 H Band Neuts % (Manual) 5 Lymphocytes % (Manual) 6 L Monocytes % (Manual) 2 Abs Neuts (Manual) 21.1 H Nucleated RBCs/100 WBC 1 H Differential Comment . Platelet Estimate Low L Platelet Morphology Normal Target Cells 1+ H Ovalocytes 1+ H Ana Cells 1+ H Lab - Chemistry Results 05/28/18 05/28/18 05/28/18 16:15 18:18 19:42 Sodium Potassium Chloride Carbon Dioxide Anion Gap BUN Creatinine Estimated GFR POC Glucose 372 H 341 H 296 H Random Glucose Calcium Phosphorus Magnesium Total Bilirubin AST ALT Alkaline Phosphatase Total Protein Albumin 05/28/18 05/28/18 05/28/18 20:45 21:44 22:47 Sodium Potassium Chloride Carbon Dioxide Anion Gap BUN Creatinine Estimated GFR POC Glucose 237 H 210 H 195 H Random Glucose Calcium Phosphorus Magnesium Total Bilirubin AST ALT Alkaline Phosphatase Total Protein Albumin 05/28/18 05/29/18 05/29/18 23:49 00:53 01:56 Sodium Potassium Chloride Carbon Dioxide Anion Gap BUN Creatinine Estimated GFR POC Glucose 188 H 153 H 138 H Random Glucose Calcium Phosphorus Magnesium Total Bilirubin AST ALT Alkaline Phosphatase Total Protein Albumin 05/29/18 05/29/18 05/29/18 02:59 04:01 04:20 Sodium 144 Potassium 3.8 D Chloride 104 Carbon Dioxide 29.4 D Anion Gap 11 BUN 72 H Creatinine 6.84 H Estimated GFR 10 L POC Glucose 140 H 105 Random Glucose 122 H D Calcium 7.8 L Phosphorus 5.7 H D Magnesium 2.1 Total Bilirubin 0.5 AST 19 ALT 25 Alkaline Phosphatase 81 Total Protein 6.9 Albumin 2.1 L 05/29/18 05/29/18 05/29/18 05:21 06:25 07:23 Sodium Potassium Chloride Carbon Dioxide Anion Gap BUN Creatinine Estimated GFR POC Glucose 143 H 154 H 156 H Random Glucose Calcium Phosphorus Magnesium Total Bilirubin AST ALT Alkaline Phosphatase Total Protein Albumin 05/29/18 05/29/18 05/29/18 08:21 09:03 10:21 Sodium Potassium Chloride Carbon Dioxide Anion Gap BUN Creatinine Estimated GFR POC Glucose 158 H 146 H 111 H Random Glucose Calcium Phosphorus Magnesium Total Bilirubin AST ALT Alkaline Phosphatase Total Protein Albumin 05/29/18 05/29/18 05/29/18 11:15 11:55 12:44 Sodium Potassium Chloride Carbon Dioxide Anion Gap BUN Creatinine Estimated GFR POC Glucose 104 110 164 H Random Glucose Calcium Phosphorus Magnesium Total Bilirubin AST ALT Alkaline Phosphatase Total Protein Albumin 05/29/18 05/29/18 05/29/18 14:12 15:59 16:49 Sodium Potassium Chloride Carbon Dioxide Anion Gap BUN Creatinine Estimated GFR POC Glucose 175 H 135 H 126 H Random Glucose Calcium Phosphorus Magnesium Total Bilirubin AST ALT Alkaline Phosphatase Total Protein Albumin 05/29/18 05/29/18 05/29/18 17:55 19:54 20:56 Sodium Potassium Chloride Carbon Dioxide Anion Gap BUN Creatinine Estimated GFR POC Glucose 89 117 H 115 H Random Glucose Calcium Phosphorus Magnesium Total Bilirubin AST ALT Alkaline Phosphatase Total Protein Albumin 05/29/18 05/29/18 05/30/18 21:59 23:07 00:00 Sodium Potassium Chloride Carbon Dioxide Anion Gap BUN Creatinine Estimated GFR POC Glucose 122 H 117 H 105 Random Glucose Calcium Phosphorus Magnesium Total Bilirubin AST ALT Alkaline Phosphatase Total Protein Albumin 05/30/18 05/30/18 05/30/18 01:14 02:04 03:06 Sodium Potassium Chloride Carbon Dioxide Anion Gap BUN Creatinine Estimated GFR POC Glucose 117 H 116 H 128 H Random Glucose Calcium Phosphorus Magnesium Total Bilirubin AST ALT Alkaline Phosphatase Total Protein Albumin 05/30/18 05/30/18 05/30/18 04:09 04:12 06:59 Sodium 144 Potassium 3.8 Chloride 105 Carbon Dioxide 26.1 Anion Gap 13 BUN 64 H Creatinine 5.83 H Estimated GFR 12 L POC Glucose 104 175 H Random Glucose 104 Calcium 8.7 D Phosphorus 6.3 H Magnesium 2.2 Total Bilirubin 0.6 AST 26 ALT 19 Alkaline Phosphatase 101 Total Protein 6.9 Albumin 2.8 L D 05/30/18 05/30/18 05/30/18 08:02 08:46 10:45 Sodium Potassium Chloride Carbon Dioxide Anion Gap BUN Creatinine Estimated GFR POC Glucose 154 H 142 H 94 Random Glucose Calcium Phosphorus Magnesium Total Bilirubin AST ALT Alkaline Phosphatase Total Protein Albumin 05/30/18 05/30/18 05/30/18 11:19 12:10 13:03 Sodium Potassium Chloride Carbon Dioxide Anion Gap BUN Creatinine Estimated GFR POC Glucose 90 98 118 H Random Glucose Calcium Phosphorus Magnesium Total Bilirubin AST ALT Alkaline Phosphatase Total Protein Albumin 05/30/18 14:22 Sodium Potassium Chloride Carbon Dioxide Anion Gap BUN Creatinine Estimated GFR POC Glucose 127 H Random Glucose Calcium Phosphorus Magnesium Total Bilirubin AST ALT Alkaline Phosphatase Total Protein Albumin Imaging: ITS Impressions Upper Extremity Ultrasound 05/28/18 00:00 CONCLUSION: 1. Right upper extremity AV (Hero) graft/catheter. 2. Small amount of nonocclusive thrombus in the proximal graft just beyond the radial artery anastomosis to the mid upper extremity level. 3. Complex perigraft fluid most prominently near the shoulder and chest wall measuring up to 3.5 x 1.8 cm. This most likely reflects perigraft hematoma although abscess cannot be excluded in the appropriate clinical setting. Chest X-Ray 05/28/18 05:00 CONCLUSION: Unchanged consolidation scattered throughout the left lung. Physical Exam: GENERAL: NAD SKIN: Warm and dry. HEAD: Atraumatic. Normocephalic. EYES: Pupils equal and round. No scleral icterus. No injection or drainage. ENT: No nasal bleeding or discharge. Mucous membranes pink and moist. NECK: Trachea midline. No JVD. CARDIOVASCULAR: Regular rate and rhythm. RESPIRATORY: No accessory muscle use. Rhonchi to auscultation. Breath sounds equal bilaterally. GASTROINTESTINAL: Abdomen soft, non-tender, nondistended. Hepatic and splenic margins not palpable. MUSCULOSKELETAL: Extremities without clubbing, cyanosis, +edema. RUE with well approximated incision, stitches in place, moderated to large amount of thick brown odorless drainage form chest part of the incsion no erythema edema less prominent NEUROLOGICAL: sedated PSYCHIATRIC: unable to assess Assessment and Plan - Plan MRSA sepsis - sustained bacteremia: 2 cultures by 6 days Indwelling prosthetic vascular device (complex AV graft extending to R atrium ) Liekly infected PD vascuklar synthetic graft: abscess vs infected hematome Sepsis, septic shock; clincially resolving ESRD, on HD Acute VDRF Hypotension, requiring pressors: resolving PNA, GNBs. Both isolates S to CFTX cont vancomycin: keep trough 15-20 cont CFTX fu repeat BC Critically ill, stable monitor the drainage from incision anais Mcdonough
[2018-05-30] MEDS: Propofol 1000 mg/100 ml Inj 1,000 MG/100 ML BOTTLE IV.CONT PRN ×2 (15:11→22:48)
[2018-05-30] MEDS ORDERED: Dextrose 50% in Water 50 ML Vial IV.PUSH PRN (20:24)
[2018-05-30] MEDS: Insulin NovoLOG Aspart Correctional Sugar Inj SQ SCH (22:00)
[2018-05-31] MEDS: Sodium Chlor 0.9% Inj 100 ML IV.SIG SCH ×8 (00:51→22:02)
[2018-05-31] MEDS: Insulin NovoLOG Aspart Correctional Sugar Inj SQ SCH ×6 (03:51→20:28)
[2018-05-31 04:51] LABS: ABG Base Excess -2.8 mmol/L (-2-2); ABG PCO2 35 mmHg (38-42); ABG PO2 139 mmHG (61-120)
[2018-05-31] MEDS: Chlorhexidine Gluconate 2% 1 Pack (2 Cloths) TOPICAL SCH (05:23)
[2018-05-31] MEDS: Hydrocortisone Sod Succinate 100 MG Vial IV.PUSH SCH ×2 (05:24→12:44)
[2018-05-31 05:53] LABS: Hematocrit 23.3 % (39.0-51.0); Hemoglobin 8.1 gm/dL (13.0-17.0); Mean Corpuscular HGB Conc 34.8 % (32.0-36.0); Mean Corpuscular Hemoglobin 29.5 pg (27.0-34.0); Mean Corpuscular Volume 84.7 fL (80.0-100.0); Mean Platelet Volume 9.4 fL (7.0-11.0); Platelet Count 60 th/mm3 (150-450); Red Blood Count 2.76 mil/mm3 (4.50-5.90); Red Cell Distribution Width 17.5 % (11.6-17.2); White Blood Count 9.3 th/mm3 (4.0-11.0)
[2018-05-31] MEDS: Propofol 1000 mg/100 ml Inj 1,000 MG/100 ML BOTTLE IV.CONT PRN (06:00)
[2018-05-31 07:21] LABS: Alanine Aminotransferase 17 U/L (12-78); Albumin 2.9 g/dL (3.4-5.0); Alkaline Phosphatase 105 U/L (45-117); Anion Gap 15 meq/L (5-15); Aspartate Aminotransferase 18 U/L (15-37); Blood Urea Nitrogen 58 mg/dL (7-18); Calcium 8.2 mg/dL (8.5-10.1); Carbon Dioxide 25.7 meq/L (21.0-32.0); Chloride 101 meq/L (98-107); Glomerular Filtration Rate 15 mL/min (>89); Glucose,Random 243 mg/dL (74-106); Phosphorus 6.3 mg/dL (2.5-4.9); Potassium 3.9 meq/L (3.5-5.1); Sodium 142 meq/L (136-145); Total Protein 6.7 g/dL (6.4-8.2)
--- NOTE | 2018-05-31 08:17 | P.PNVS ---
Subjective Post Op Day #: 3 Procedure: Excision of arm and neck grafts, grossly infected Subjective/Hospital Course: looks amazing all things considered appropriate drainage from incision Objective Neuro: sedated; by report, VAN with sedation off but not following commands. likely metabolic Pulmonary: good gas exchange, weaning vent (40% FiO2) 7.40/35/139/21/-2.8 Cardiac: antonia but good perfusion off pressors FEN/GI: e'lytes ok narciso HD yesterday no indication for HD today TF held and will recheck tube position (KUB ordered) ID Antibiotics (date/duration): MRSA in wound and blood MRSA, E coli, Providentia stuartii in sputum on antibiotics and will need 6 weeks for graft infection (likely VANC with HD) Heme: Hct 23 - rec'd 1U PRBC yesterday (from 20) plt 60, ok to not treat Vascular: R UE incisions ok appropriate drainage Laboratory Results - last 24 hr 05/30/18 05/30/18 05/30/18 08:02 08:46 10:40 WBC RBC Hgb Hct MCV MCH MCHC RDW Plt Count MPV Puncture Site Patient Temperature O2 Saturation ABG pH ABG pCO2 ABG pO2 ABG HCO3 ABG O2 Content ABG Base Excess ABG Methemoglobin Hemoglobin Carboxyhemoglobin O2 Delivery Device Vent Setting Inspired O2 Critical Value Sodium Potassium Chloride Carbon Dioxide Anion Gap BUN Creatinine Estimated GFR POC Glucose 154 H 142 H Random Glucose Calcium Phosphorus Magnesium Total Bilirubin AST ALT Alkaline Phosphatase Total Protein Albumin MTS Gel Crossmatch See Detail Bld Prod Order Comment 05/30/18 05/30/18 05/30/18 10:45 11:19 12:10 WBC RBC Hgb Hct MCV MCH MCHC RDW Plt Count MPV Puncture Site Patient Temperature O2 Saturation ABG pH ABG pCO2 ABG pO2 ABG HCO3 ABG O2 Content ABG Base Excess ABG Methemoglobin Hemoglobin Carboxyhemoglobin O2 Delivery Device Vent Setting Inspired O2 Critical Value Sodium Potassium Chloride Carbon Dioxide Anion Gap BUN Creatinine Estimated GFR POC Glucose 94 90 98 Random Glucose Calcium Phosphorus Magnesium Total Bilirubin AST ALT Alkaline Phosphatase Total Protein Albumin MTS Gel Crossmatch Bld Prod Order Comment 05/30/18 05/30/18 05/30/18 13:03 14:22 15:02 WBC RBC Hgb Hct MCV MCH MCHC RDW Plt Count MPV Puncture Site Patient Temperature O2 Saturation ABG pH ABG pCO2 ABG pO2 ABG HCO3 ABG O2 Content ABG Base Excess ABG Methemoglobin Hemoglobin Carboxyhemoglobin O2 Delivery Device Vent Setting Inspired O2 Critical Value Sodium Potassium Chloride Carbon Dioxide Anion Gap BUN Creatinine Estimated GFR POC Glucose 118 H 127 H 126 H Random Glucose Calcium Phosphorus Magnesium Total Bilirubin AST ALT Alkaline Phosphatase Total Protein Albumin MTS Gel Crossmatch Bld Prod Order Comment 05/30/18 05/30/18 05/30/18 16:11 17:36 18:27 WBC RBC Hgb Hct MCV MCH MCHC RDW Plt Count MPV Puncture Site Patient Temperature O2 Saturation ABG pH ABG pCO2 ABG pO2 ABG HCO3 ABG O2 Content ABG Base Excess ABG Methemoglobin Hemoglobin Carboxyhemoglobin O2 Delivery Device Vent Setting Inspired O2 Critical Value Sodium Potassium Chloride Carbon Dioxide Anion Gap BUN Creatinine Estimated GFR POC Glucose 103 114 H 124 H Random Glucose Calcium Phosphorus Magnesium Total Bilirubin AST ALT Alkaline Phosphatase Total Protein Albumin MTS Gel Crossmatch Bld Prod Order Comment 05/30/18 05/31/18 05/31/18 21:45 03:30 04:40 WBC RBC Hgb Hct MCV MCH MCHC RDW Plt Count MPV Puncture Site Art line Patient Temperature 98.6 O2 Saturation 96 ABG pH 7.40 ABG pCO2 35 L ABG pO2 139 H ABG HCO3 21 L ABG O2 Content 12.5 ABG Base Excess -2.8 L ABG Methemoglobin 1.6 Hemoglobin 9.1 L Carboxyhemoglobin 1.0 O2 Delivery Device Ventilator Vent Setting Prvc/ac Inspired O2 40 Critical Value No Sodium Potassium Chloride Carbon Dioxide Anion Gap BUN Creatinine Estimated GFR POC Glucose 118 H 226 H Random Glucose Calcium Phosphorus Magnesium Total Bilirubin AST ALT Alkaline Phosphatase Total Protein Albumin MTS Gel Crossmatch Bld Prod Order Comment 05/31/18 05/31/18 05:15 05:15 WBC 9.3 RBC 2.76 L Hgb 8.1 L Hct 23.3 L MCV 84.7 MCH 29.5 MCHC 34.8 RDW 17.5 H Plt Count 60 L MPV 9.4 Puncture Site Patient Temperature O2 Saturation ABG pH ABG pCO2 ABG pO2 ABG HCO3 ABG O2 Content ABG Base Excess ABG Methemoglobin Hemoglobin Carboxyhemoglobin O2 Delivery Device Vent Setting Inspired O2 Critical Value Sodium 142 Potassium 3.9 Chloride 101 Carbon Dioxide 25.7 Anion Gap 15 BUN 58 H Creatinine 4.79 H Estimated GFR 15 L POC Glucose Random Glucose 243 H D Calcium 8.2 L Phosphorus 6.3 H Magnesium 2.0 Total Bilirubin 0.8 AST 18 ALT 17 Alkaline Phosphatase 105 Total Protein 6.7 Albumin 2.9 L MTS Gel Crossmatch Bld Prod Order Comment Microbiology 05/28/18 14:40 Gram Stain - Final Tissue - Other Wound Culture - Final S. aureus MRSA 05/28/18 14:40 Gram Stain - Final Wound - Arm Wound Culture - Final S. aureus MRSA 05/27/18 21:50 Gram Stain - Final Sputum - Endotracheal Sputum Culture - Final Escherichia coli Providencia stuartii S. aureus MRSA 05/28/18 00:48 Aerobic Blood Culture - Final Blood - Peripheral S. aureus MRSA Anaerobic Blood Culture - Preliminary No growth in 2 days 05/27/18 22:40 Aerobic Blood Culture - Final Blood - Peripheral S. aureus MRSA Anaerobic Blood Culture - Preliminary No growth in 3 days Assessment and Plan - Assessment (1) Septic shock Code(s): A41.9 - Sepsis, unspecified organism; R65.21 - Severe sepsis with septic shock Status: Acute (2) Arteriovenous graft infection Code(s): T82.7XXA - Infection and inflammatory reaction due to other cardiac and vascular devices, implants and grafts, initial encounter Status: Acute - Plan POD#3 s/p excision of R neck and arm graft off pressors and VAN 1. Continue vent wean 2. Lighten sedation and await purposeful movement - agree metabolic given true septic shock 3. Check KUB and resume at least trickle TF this morning. albumin 2.9 4. Continue broad antibiotics; f/u cultures 5. wound ok; gauze prn
[2018-05-31] MEDS: Senna/Docusate Sodium 8.6/50 MG Tablet PO SCH ×2 (08:51→22:03)
--- NOTE | 2018-05-31 09:59 | XR ---
EXAM DATE: 05/31/2018 9:55 AM EDT AGE/SEX: 73 years / Male INDICATIONS: stated exam is for NG tube placement. CLINICAL DATA: This is the patient's subsequent encounter. Patient reports that signs and symptoms h ave been present for 1 day and indicates a pain score of Nonresponsive. MEDICAL/SURGICAL HISTORY: None. None. COMPARISON: No prior exams available for comparison. FINDINGS: There is an NGT in the stomach. Paucity of small bowel gas. No gross abnormal calcifications in the visualized abdomen. Osseous structures are grossly intact. CONCLUSION: 1. Suction-type NGT in the stomach. Electronically signed by: Piter Brooks MD 05/31/2018 9:58 AM EDT
--- NOTE | 2018-05-31 10:11 | P.DIET ---
Nutritional Evaluation Type of nutrition evaluation: initial Nutrition consult regarding: Tube Feeding Nutrition screening: [facility] [place] Objective - Diagnosis Sepsis, Graft Infection - Objective [place] body weight: 81 kg Body Weight Used for Calculations: IBW Energy Needs - Lower Range (kCal/kg): 24 Energy Needs - Upper Range (kCal/kg): 28 Lower Limit kCal/kg (kCals): 1,944 Upper Limit kCal/kg (kCals): 2,268 Lower Limit Protein Factor (Grams per Kg): 1.2 Upper Limit Protein Factor (Grams per Kg): 1.5 Lower Protein Needs (Protein): 97 Upper Protein Needs (Protein): 122 Dietitian Reviewed in Medical Record: Curent medications, Intake & Output, Labs , Medical history, Tube feeding Diet Order: TF only Wound Care Note: 05/29: R+L Buttock Stage II pressure injury, gluteal cleft wound not pressure related Objective Comments: PMH: ESRD on HD, HTN, DM, DVT, Obesity Meds include: Propofol Labs include: Hgb 8.1, Hct 23.3, Cr 4.79, Glucose 243, Phos 6.3 HD: 4L removed, +1BM Assessment Assessment: Pt at nutritional risk r/t need for a TF for nutrition support. Pt intubated and sedated on propofol. Current rate at 15.5ml/hr provides an additional 409 kcals/24 hrs. Pt admitted with sepsis, graft infection, now with MRSA infection status post removal of AV graft. TF Nepro started per . To meet pt's nutritional needs, a goal rate of 45 ml/hr is necessary and Beneprotein 1 pkt TID is needed to meet pt's protein needs. The above will provide 2019kcals, 106gms protein and 785mls free water. Will monitor TF tolerance, clinical course. Recommendations: TF Nepro with goal rate 45 ml/hr Beneprotein 1 pkt TID Dietitian to Monitor: Lab values, Renal labs, Intake & Output, Tube feeding tolerance, Weight change, Wound/skin status, Medical course
--- NOTE | 2018-05-31 10:12 | P.PNCC ---
Subjective Subjective Remarks/Hospital Course: Hospital Course: Mr. Laguerre is a 73-year-old -Luxembourger male with past medical history significant for end-stage renal disease on hemodialysis, hypertension, complicated vascular access, HeRO graft placement by Dr. Umana on 09/23/2017, revision and PTFE replacement 12/25/17. who presented to the [facility] with probable sepsis and shock. Dr. Umana was contacted and patient was accepted for transfer to CVICU in [facility]. I immediately evaluated the patient on arrival to CVICU. Patient is currently on BiPAP (transported on BiPAP) severely encephalopathic hardly wakes up to sternal rub, with a rapid shallow breathing. BiPAP settings 18/8, 60% FiO2. He is literally unresponsive and not protecting airway. Currently he is on Levophed at 20 mcg/min with a map 65-70. He is also on amiodarone for atrial fibrillation with RVR. Because of lack of airway protection, severe encephalopathy, septic shock and hypoxia I proceeded with endotracheal intubation. His glottic opening was completely occluded with thick secretions, several minutes of suctioning needed to clear the secretions prior to intubation. Postintubation Levophed had to be increased to 30 mcg/min, I also placed an arterial line. All cultures, routine labs and lactic acid pending at this time. I have started him on vancomycin and Zosyn. Discussed case with Dr. Umana extensively Patient was unable to provide any history, according to the RN who got report patient apparently had GI bleed, underwent EGD with cauterization of duodenal ulcer few days ago. Will avoid heparin for DVT prophylaxis. His postintubation ABG showed severe hypoxia with significant AA gradient, metabolic acidosis, and a hemoglobin of 7.6. Currently Levophed is increased to 30 mcg/min, I will transfuse 1 unit PRBC. Chest x-ray shows pulmonary edema will arrange for hemodialysis once his shock is improves. At this time he will not be able to tolerate either hemodialysis or even CVVH Subjective: 05/28: initially evaluated around 6:30am. patient in refractory septic shock. added epinephrine to levophed and vasopressin. discussed with Dr. Umana. obtained u/s of the right upper extremity which demonstrated fluid collection surrounding the HeRO graft which was heterogenous in nature. added single dose of Amikacin to vanc/zosyn regimen to cover ESBL organisms. patient remains in shock. per verbal report from OSH, blood cultures growing MRSA. taken to OR urgently and large amount of purulent drainage debrided from around catheter. HeRO catheter removed. returns from OR persistently unstable. acidosis worsening. bicarb given. discussed with nephrology and will need CRRT. 05/29: s/p emergent debridement and removal of HeRO graft. today vasopressor doses are somewhat lower, although remains on levo,vaso,epi. lactate cleared. s/ p IHD today with 3L removal. blood growing MRSA. sputum growing e.coli, providencia, MRSA. wbc remains elevated. 05/30: off vasopressors. getting IHD again today. hgb 7 and receiving 1 unit prbc during dialysis. encephalopathy persists, not following commands. 05/31: clinically continues to improve. not following commands, very slow to arouse. bradycardic this AM, but tolerating hemodynamically. HD yesterday with volume removal. Objective Vital Signs / I&O: Vital Signs 05/30/18 10:30 05/30/18 11:00 05/30/18 11:03 Temperature 36.4 C Pulse Rate 54 L 54 L Respiratory Rate 18 16 Blood Pressure 114/53 L 104/52 L Pulse Oximetry 97 100 99 05/30/18 11:19 05/30/18 13:55 05/30/18 15:00 Temperature Pulse Rate 51 L 50 L Respiratory Rate 16 19 Blood Pressure 114/53 L 125/53 L Pulse Oximetry 99 99 100 05/30/18 16:30 05/30/18 16:53 05/30/18 18:50 Temperature Pulse Rate 51 L Respiratory Rate 16 17 25 H Blood Pressure Pulse Oximetry 95 05/30/18 20:00 05/30/18 20:45 05/30/18 21:25 Temperature 36.5 C Pulse Rate 49 L 49 L Respiratory Rate 16 16 16 Blood Pressure 94/41 L Pulse Oximetry 98 97 05/31/18 00:00 05/31/18 03:31 05/31/18 04:00 Temperature 36.6 C 36.1 C L Pulse Rate 44 L 49 L 37 L Respiratory Rate 16 16 16 Blood Pressure 114/48 L 103/46 L Pulse Oximetry 99 98 99 05/31/18 07:00 05/31/18 08:03 Temperature 33.8 C L Pulse Rate 40 L 38 L Respiratory Rate 16 16 Blood Pressure 121/61 Pulse Oximetry 99 Intake & Output 05/30/18 05/31/18 05/31/18 18:59 06:59 18:59 Intake Total 769 / 769 581 / 581 Output Total 4000 / 4000 0 / 0 Balance -3231 / -3231 581 / 581 Weight 133 kg Intake: IV 369 / 369 386 / 386 EPINEPHrine (1:1000) Inj 2 MG 0 / 0 In D5W Inj 248 ML @ 3 MCG/MIN 22.5 mls/hr IV.CONT TITRATE PRN Rx#:[id number] NovoLIN R (IV Infusion) 100 71 / 71 UNIT In NS Inj 99 ML @ 3 UNITS/ HR 3 mls/hr IV.CONT TITRATE PRN Rx#:[id number] Diprivan 1000 mg/100 ml Inj 1, 14 / 14 186 / 186 000 mg In 100 ml @ 5 MCG/KG/MIN 3.87 mls/hr IV.CONT TITRATE PRN Rx#:[id number] Sodium Bicarbonate 8.4% Inj 75 0 / 0 MEQ In 1/2 Normal Saline Inj 1, 000 ML @ 500 mls/hr IV.CONT . Q2H9M TRACIE Rx#:[id number] Pitressin Inj 40 UNIT In D5W 128 / 128 Inj 98 ML @ 0.04 UNITS/MIN 6 mls/hr IV.CONT CONT TRACIE Rx#: [id number] Flexbumin 25% Inj 100 ML @ 60 100 / 100 100 / 100 mls/hr IV.SIG Q12H TRACIE Rx#: [id number] Zosyn 2.25 GM Premix 50 ML @ 50 / 50 100 mls/hr IV.SIG Q8H TRACIE Rx#: [id number] Rocephin Inj 1,000 MG In NS Inj 100 / 100 100 ML @ 200 mls/hr IV.SIG Q24H TRACIE Rx#:[id number] fentaNYL 10 mcg/mL Premix Drip 6 / 6 2,500 mcg In 250 ml @ 50 MCG/HR 5 mls/hr IV.SIG TITRATE PRN Rx #:[id number] Oral 0 / 0 Tube Feeding 195 / 195 Intake (Blood Product) Amt 400 / 400 Rbc As-3 Leukoreduced Unit 400 / 400 [id number] Output: Hemodialysis Amount 4000 / 4000 Urine Amount (Catheter) 0 / 0 0 / 0 Suprapubic 0 / 0 0 / 0 Other: Date of Last Bowel Movement 05/30/18 05/30/18 05/30/18 # Bowel Movements 0 # Incontinent Bowel Movements 1 Result Diagrams: 05/31/18 05:15 05/31/18 05:15 Objective Remarks: GENERAL: 73-year-old obese -Luxembourger male, lying in bed, intubated, critically ill. HEENT: Normocephalic. Atraumatic. Pupils equal, round, reactive, mucous membranes moist. NECK: Trachea is midline. There is no JVD. CHEST: PRVC. equal chest rise. Air entry markedly decreased with coarse rhonchi bilaterally CARDIOVASCULAR: Atrial fibrillation rate controlled. bradycardic, hemodynamically stable. off vasopressors. ABDOMEN: Soft, nontender, nondistended. No guarding. MUSCULOSKELETAL: Pulses 2+. No peripheral edema. Right upper extremity s/p debridement and wrapped in bandages. no significant bleeding from site. NEUROLOGICAL: RASS -3. intubated, sedated. does move all extremities spontaneously. Assessment and Plan - Problem List (1) Septic shock Code(s): A41.9 - Sepsis, unspecified organism; R65.21 - Severe sepsis with septic shock Status: Acute (2) Acute hypoxemic respiratory failure Code(s): J96.01 - Acute respiratory failure with hypoxia Status: Acute (3) Acute metabolic encephalopathy Code(s): G93.41 - Metabolic encephalopathy Status: Acute (4) Arteriovenous graft infection Code(s): T82.7XXA - Infection and inflammatory reaction due to other cardiac and vascular devices, implants and grafts, initial encounter Status: Acute (5) Atrial fibrillation with RVR Code(s): I48.91 - Unspecified atrial fibrillation Status: Acute (6) Pulmonary edema Code(s): J81.1 - Chronic pulmonary edema Status: Acute - Assessment and Plan Plan: Assessment: 73yM with ESRD and now HeRO graft infection, with MRSA and refractory septic shock. Additional comorbid HCAP pneumonia from OSH. continue supportive care. continue daily sedation vacations. continue to increase enteral tube feeds. NEURO: Acute metabolic encephalopathy -propofol for goal RASS -2. - daily sedation vacation. -Patient's unresponsiveness most likely secondary to severe sepsis and toxic metabolic encephalopathy, very slowly improving but persistent. if no improvement over the next few days, may need to get cerebral imaging. RESP: Acute hypoxemic and hypercarbic respiratory failure Pulmonary edema HCAP aspiration pneumonia- present on admission -PRVC/AC -Ventilator bundle. DuoNeb every 6 hours scheduled and as needed - continue abx - daily SAT/SBT: failed yesterday for mental status. CV: Septic shock- resolved Acute severe anion gap Metabolic acidosis- resolved Pulmonary edema Atrial fibrillation with RVR - wean stress dose steroids - HD daily for volume removal and electrolyte/acid-base abnormalities -A. fib rate is controlled, cannot anticoagulate due to history of recent GI bleed GI/HEME: Recent GI bleed Anemia requiring transfusion - nepro tube feeds - nutrition consult for TF recs - IV Protonix : End-stage renal disease on hemodialysis HeRO graft placed 09/2017 -Nephrology: Dr. Davidson following - continue HD per nephrology ID: Septic shock- resolved HeRO graft infection HCAP pneumonia- present on admission -ID consult, abx management per ID -Dr. Umana consulted - 05/27 blood cultures MRSA - 05/27 sputum cultures: providencia, MRSA, e.coli - will need 7 days coverage for HCAP pneumonia - will need 6 weeks coverage for MRSA graft infection ENDO: Type 2 diabetes Presumed Adrenal insufficiency -Sliding scale insulin -hydrocortisone taper. PROPH: -Bilateral lower extremity SCDs. Avoid chemical DVT prophylaxis due to recent GI bleed. IV Protonix 40 mg every 12 LINES: -obtain piv x 2 and can work towards d/c CVL. -left radial arterial line 05/27: keep for serial blood sampling. -right femoral vascath at OSH- most likely 05/26.
[2018-05-31] MEDS: Pantoprazole Inj 40 MG Vial IV.PUSH SCH ×2 (12:43→22:04)
[2018-05-31] MEDS: Albumin Human 25% Inj 100 ML IV.SIG SCH ×2 (12:45→22:03)
--- NOTE | 2018-05-31 14:00 | P.PNNP ---
Subjective Interval history: Patient is intubated moves at times Physical Exam Vital signs: Vital Signs 05/30/18 15:00 05/30/18 16:30 05/30/18 16:53 Temperature Pulse Rate 50 L 51 L Respiratory Rate 16 17 Blood Pressure 125/53 L Pulse Oximetry 100 05/30/18 18:50 05/30/18 20:00 05/30/18 20:45 Temperature 97.7 F Pulse Rate 49 L Respiratory Rate 25 H 16 16 Blood Pressure 94/41 L Pulse Oximetry 95 98 97 05/30/18 21:25 05/31/18 00:00 05/31/18 03:31 Temperature 97.8 F Pulse Rate 49 L 44 L 49 L Respiratory Rate 16 16 16 Blood Pressure 114/48 L Pulse Oximetry 99 98 05/31/18 04:00 05/31/18 07:00 05/31/18 08:03 Temperature 97.0 F L 93 F L Pulse Rate 37 L 40 L 38 L Respiratory Rate 16 16 16 Blood Pressure 103/46 L 121/61 Pulse Oximetry 99 99 05/31/18 11:00 05/31/18 11:41 Temperature 94.3 F L Pulse Rate 69 Respiratory Rate 16 16 Blood Pressure 109/54 L Pulse Oximetry 99 Intake & Output 05/30/18 05/31/18 05/31/18 18:59 06:59 18:59 Intake Total 769 / 769 581 / 581 Output Total 4000 / 4000 0 / 0 Balance -3231 / -3231 581 / 581 Weight 133 kg Intake: IV 369 / 369 386 / 386 EPINEPHrine (1:1000) Inj 2 MG 0 / 0 In D5W Inj 248 ML @ 3 MCG/MIN 22.5 mls/hr IV.CONT TITRATE PRN Rx#:[id number] NovoLIN R (IV Infusion) 100 71 / 71 UNIT In NS Inj 99 ML @ 3 UNITS/ HR 3 mls/hr IV.CONT TITRATE PRN Rx#:[id number] Diprivan 1000 mg/100 ml Inj , / 186 / 186 000 mg In 100 ml @ 5 MCG/KG/MIN 3.87 mls/hr IV.CONT TITRATE PRN Rx#:[id number] Sodium Bicarbonate 8.4% Inj 75 0 / 0 MEQ In 1/2 Normal Saline Inj 1, 000 ML @ 500 mls/hr IV.CONT . Q2H9M TRACIE Rx#:[id number] Pitressin Inj 40 UNIT In D5W 128 / 128 Inj 98 ML @ 0.04 UNITS/MIN 6 mls/hr IV.CONT CONT TRACIE Rx#: [id number] Flexbumin 25% Inj 100 ML @ 60 100 / 100 100 / 100 mls/hr IV.SIG Q12H TRACIE Rx#: [id number] Zosyn 2.25 GM Premix 50 ML @ 50 / 50 100 mls/hr IV.SIG Q8H TRACIE Rx#: [id number] Rocephin Inj 1,000 MG In NS Inj 100 / 100 100 ML @ 200 mls/hr IV.SIG Q24H TRACIE Rx#:[id number] fentaNYL 10 mcg/mL Premix Drip 6 / 6 2,500 mcg In 250 ml @ 50 MCG/HR 5 mls/hr IV.SIG TITRATE PRN Rx #:[id number] Oral 0 / 0 Tube Feeding 195 / 195 Intake (Blood Product) Amt 400 / 400 Rbc As-3 Leukoreduced Unit 400 / 400 [id number] Output: Hemodialysis Amount 4000 / 4000 Urine Amount (Catheter) 0 / 0 0 / 0 Suprapubic 0 / 0 0 / 0 Other: Date of Last Bowel Movement 05/30/18 05/30/18 05/30/18 # Bowel Movements 0 # Incontinent Bowel Movements 1 - Constitutional no acute distress - Routine HEENT Exam Head: Present: normocephalic Eye: Present: EOMI - Routine Respiratory Exam Present: CTA bilaterally - Routine Cardiovascular Exam Present: RRR - Routine Abdominal Exam Present: soft, normoactive bowel sounds - Routine Extremities Exam Present: edema - Urinary Catheter Management Suprapubic Cath placed during this visit: no Assessment and Plan - Assessment (1) End stage renal disease on dialysis Code(s): N18.6 - End stage renal disease; Z99.2 - Dependence on renal dialysis Status: Acute (2) Acute hypoxemic respiratory failure Code(s): J96.01 - Acute respiratory failure with hypoxia Status: Acute (3) Arteriovenous graft infection Code(s): T82.7XXA - Infection and inflammatory reaction due to other cardiac and vascular devices, implants and grafts, initial encounter Status: Acute (4) Atrial fibrillation with RVR Code(s): I48.91 - Unspecified atrial fibrillation Status: Acute (5) Hemodialysis access, AV graft Code(s): Z99.2 - Dependence on renal dialysis Status: Acute - Plan Patient has sepsis and undergoing treatment with IV vancomycin and Zosyn He is on vasopressors keep his blood pressures steady He did well with hemodialysis next HD tomorrow
--- NOTE | 2018-05-31 16:30 | P.PN ---
Subjective Interval history: Late entry for 05/30 visit on vent had dialysis Physical Exam Vital signs: Vital Signs 05/30/18 16:30 05/30/18 16:53 05/30/18 18:50 Temperature Pulse Rate 51 L Respiratory Rate 16 17 25 H Blood Pressure Pulse Oximetry 95 05/30/18 20:00 05/30/18 20:45 05/30/18 21:25 Temperature 97.7 F Pulse Rate 49 L 49 L Respiratory Rate 16 16 16 Blood Pressure 94/41 L Pulse Oximetry 98 97 05/31/18 00:00 05/31/18 03:31 05/31/18 04:00 Temperature 97.8 F 97.0 F L Pulse Rate 44 L 49 L 37 L Respiratory Rate 16 16 16 Blood Pressure 114/48 L 103/46 L Pulse Oximetry 99 98 99 05/31/18 07:00 05/31/18 08:03 05/31/18 11:00 Temperature 93 F L 94.3 F L Pulse Rate 40 L 38 L 69 Respiratory Rate 16 16 16 Blood Pressure 121/61 109/54 L Pulse Oximetry 99 05/31/18 11:41 05/31/18 13:59 05/31/18 15:00 Temperature 95.8 F L Pulse Rate 68 Respiratory Rate 16 16 16 Blood Pressure 135/65 Pulse Oximetry 99 98 98 Intake & Output 05/30/18 05/31/18 05/31/18 18:59 06:59 18:59 Intake Total 769 / 769 581 / 581 100 / 100 Output Total 4000 / 4000 0 / 0 Balance -3231 / -3231 581 / 581 100 / 100 Weight 133 kg Intake: IV 369 / 369 386 / 386 100 / 100 EPINEPHrine (1:1000) Inj 2 MG 0 / 0 In D5W Inj 248 ML @ 3 MCG/MIN 22.5 mls/hr IV.CONT TITRATE PRN Rx#:[id number] NovoLIN R (IV Infusion) 100 71 / 71 UNIT In NS Inj 99 ML @ 3 UNITS/ HR 3 mls/hr IV.CONT TITRATE PRN Rx#:[id number] Diprivan 1000 mg/100 ml Inj , 186 / 186 000 mg In 100 ml @ 5 MCG/KG/MIN 3.87 mls/hr IV.CONT TITRATE PRN Rx#:[id number] Sodium Bicarbonate 8.4% Inj 75 0 / 0 MEQ In 1/2 Normal Saline Inj 1, 000 ML @ 500 mls/hr IV.CONT . Q2H9M TRACIE Rx#:[id number] Pitressin Inj 40 UNIT In D5W 128 / 128 Inj 98 ML @ 0.04 UNITS/MIN 6 mls/hr IV.CONT CONT TRACIE Rx#: [id number] Flexbumin 25% Inj 100 ML @ 60 100 / 100 100 / 100 100 / 100 mls/hr IV.SIG Q12H TRACIE Rx#: [id number] Zosyn 2.25 GM Premix 50 ML @ 50 / 50 100 mls/hr IV.SIG Q8H TRACIE Rx#: [id number] Rocephin Inj 1,000 MG In NS Inj 100 / 100 100 ML @ 200 mls/hr IV.SIG Q24H TRACIE Rx#:[id number] fentaNYL 10 mcg/mL Premix Drip 6 / 6 2,500 mcg In 250 ml @ 50 MCG/HR 5 mls/hr IV.SIG TITRATE PRN Rx #:[id number] Oral 0 / 0 Tube Feeding 195 / 195 Intake (Blood Product) Amt 400 / 400 Rbc As-3 Leukoreduced Unit 400 / 400 [id number] Output: Hemodialysis Amount 4000 / 4000 Urine Amount (Catheter) 0 / 0 0 / 0 Suprapubic 0 / 0 0 / 0 Other: Date of Last Bowel Movement 05/30/18 05/30/18 05/30/18 # Bowel Movements 0 # Incontinent Bowel Movements 1 - Constitutional no acute distress - Routine Neck Exam Present: trachea midline - Routine Respiratory Exam Present: CTA bilaterally - Routine Cardiovascular Exam Present: RRR - Routine Extremities Exam Present: edema - Urinary Catheter Management Suprapubic Cath placed during this visit: no Results - Labs CBC & Chem 7: 05/31/18 05:15 05/31/18 05:15 Laboratory Results - last 24 hr 05/30/18 05/30/18 05/30/18 16:11 17:36 18:27 WBC RBC Hgb Hct MCV MCH MCHC RDW Plt Count MPV Puncture Site Patient Temperature O2 Saturation ABG pH ABG pCO2 ABG pO2 ABG HCO3 ABG O2 Content ABG Base Excess ABG Methemoglobin Hemoglobin Carboxyhemoglobin O2 Delivery Device Vent Setting Inspired O2 Critical Value Sodium Potassium Chloride Carbon Dioxide Anion Gap BUN Creatinine Estimated GFR POC Glucose 103 114 H 124 H Random Glucose Calcium Phosphorus Magnesium Total Bilirubin AST ALT Alkaline Phosphatase Total Protein Albumin 05/30/18 05/31/18 05/31/18 21:45 03:30 04:40 WBC RBC Hgb Hct MCV MCH MCHC RDW Plt Count MPV Puncture Site Art line Patient Temperature 98.6 O2 Saturation 96 ABG pH 7.40 ABG pCO2 35 L ABG pO2 139 H ABG HCO3 21 L ABG O2 Content 12.5 ABG Base Excess -2.8 L ABG Methemoglobin 1.6 Hemoglobin 9.1 L Carboxyhemoglobin 1.0 O2 Delivery Device Ventilator Vent Setting Prvc/ac Inspired O2 40 Critical Value No Sodium Potassium Chloride Carbon Dioxide Anion Gap BUN Creatinine Estimated GFR POC Glucose 118 H 226 H Random Glucose Calcium Phosphorus Magnesium Total Bilirubin AST ALT Alkaline Phosphatase Total Protein Albumin 05/31/18 05/31/18 05/31/18 05:15 05:15 08:38 WBC 9.3 RBC 2.76 L Hgb 8.1 L Hct 23.3 L MCV 84.7 MCH 29.5 MCHC 34.8 RDW 17.5 H Plt Count 60 L MPV 9.4 Puncture Site Patient Temperature O2 Saturation ABG pH ABG pCO2 ABG pO2 ABG HCO3 ABG O2 Content ABG Base Excess ABG Methemoglobin Hemoglobin Carboxyhemoglobin O2 Delivery Device Vent Setting Inspired O2 Critical Value Sodium 142 Potassium 3.9 Chloride 101 Carbon Dioxide 25.7 Anion Gap 15 BUN 58 H Creatinine 4.79 H Estimated GFR 15 L POC Glucose 254 H Random Glucose 243 H D Calcium 8.2 L Phosphorus 6.3 H Magnesium 2.0 Total Bilirubin 0.8 AST 18 ALT 17 Alkaline Phosphatase 105 Total Protein 6.7 Albumin 2.9 L 05/31/18 13:03 WBC RBC Hgb Hct MCV MCH MCHC RDW Plt Count MPV Puncture Site Patient Temperature O2 Saturation ABG pH ABG pCO2 ABG pO2 ABG HCO3 ABG O2 Content ABG Base Excess ABG Methemoglobin Hemoglobin Carboxyhemoglobin O2 Delivery Device Vent Setting Inspired O2 Critical Value Sodium Potassium Chloride Carbon Dioxide Anion Gap BUN Creatinine Estimated GFR POC Glucose 205 H Random Glucose Calcium Phosphorus Magnesium Total Bilirubin AST ALT Alkaline Phosphatase Total Protein Albumin Microbiology 05/30/18 14:45 Blood - Peripheral Aerobic Blood Culture - Preliminary No growth in 1 day 05/30/18 14:45 Blood - Peripheral Anaerobic Blood Culture - Preliminary No growth in 1 day 05/30/18 14:35 Blood - Peripheral Aerobic Blood Culture - Preliminary No growth in 1 day 05/30/18 14:35 Blood - Peripheral Anaerobic Blood Culture - Preliminary No growth in 1 day 05/28/18 00:48 Blood - Peripheral Aerobic Blood Culture - Final S. aureus MRSA 05/28/18 00:48 Blood - Peripheral Anaerobic Blood Culture - Preliminary No growth in 3 days 05/27/18 22:40 Blood - Peripheral Aerobic Blood Culture - Final S. aureus MRSA 05/27/18 22:40 Blood - Peripheral Anaerobic Blood Culture - Preliminary No growth in 4 days - Imaging Impressions Abdomen X-Ray 05/31/18 00:00 CONCLUSION: 1. Suction-type NGT in the stomach. Assessment and Plan - Assessment (1) End stage renal disease on dialysis Code(s): N18.6 - End stage renal disease; Z99.2 - Dependence on renal dialysis Status: Acute (2) Acute hypoxemic respiratory failure Code(s): J96.01 - Acute respiratory failure with hypoxia Status: Acute (3) Arteriovenous graft infection Code(s): T82.7XXA - Infection and inflammatory reaction due to other cardiac and vascular devices, implants and grafts, initial encounter Status: Acute (4) Atrial fibrillation with RVR Code(s): I48.91 - Unspecified atrial fibrillation Status: Acute (5) Hemodialysis access, AV graft Code(s): Z99.2 - Dependence on renal dialysis Status: Acute - Plan hemodialysis 4 L of ultrafiltration tolerated it well discussed with nursing staff next dialysis will be on Friday
[2018-06-01] MEDS: Hydrocortisone Sod Succinate 100 MG Vial IV.PUSH SCH ×5 (01:11→22:27)
[2018-06-01] MEDS: Propofol 1000 mg/100 ml Inj 1,000 MG/100 ML BOTTLE IV.CONT PRN ×4 (01:11→22:28)
[2018-06-01] MEDS: Sodium Chlor 0.9% Inj 100 ML IV.SIG SCH ×11 (01:12→22:32)
[2018-06-01] MEDS: Insulin NovoLOG Aspart Correctional Sugar Inj SQ SCH ×6 (01:26→23:00)
[2018-06-01 05:28] LABS: Hematocrit 24.1 % (39.0-51.0); Hemoglobin 8.4 gm/dL (13.0-17.0); Mean Corpuscular HGB Conc 34.9 % (32.0-36.0); Mean Corpuscular Hemoglobin 29.2 pg (27.0-34.0); Mean Corpuscular Volume 83.6 fL (80.0-100.0); Mean Platelet Volume 9.3 fL (7.0-11.0); Platelet Count 98 th/mm3 (150-450); Red Blood Count 2.89 mil/mm3 (4.50-5.90); Red Cell Distribution Width 17.2 % (11.6-17.2)
[2018-06-01] MEDS: Chlorhexidine Gluconate 2% 1 Pack (2 Cloths) TOPICAL SCH (05:43)
[2018-06-01 05:53] LABS: Alanine Aminotransferase 15 U/L (12-78); Albumin 2.9 g/dL (3.4-5.0); Alkaline Phosphatase 89 U/L (45-117); Anion Gap 15 meq/L (5-15); Aspartate Aminotransferase 12 U/L (15-37); Blood Urea Nitrogen 82 mg/dL (7-18); Calcium 8.1 mg/dL (8.5-10.1); Carbon Dioxide 25.7 meq/L (21.0-32.0); Chloride 102 meq/L (98-107); Glomerular Filtration Rate 11 mL/min (>89); Glucose,Random 235 mg/dL (74-106); Magnesium 2.3 mg/dL (1.5-2.5); Phosphorus 6.9 mg/dL (2.5-4.9); Potassium 3.4 meq/L (3.5-5.1); Sodium 143 meq/L (136-145); Total Protein 6.6 g/dL (6.4-8.2)
--- NOTE | 2018-06-01 08:39 | P.PNVS ---
Subjective Post Op Day #: 4 Procedure: Excision of arm and neck grafts, grossly infected Subjective/Hospital Course: remains off pressors VAN, lightening sedation and weaning vent Objective Neuro: VAN, lightening sedation, may take a few days given extent of sepsis and underlying renal failure Pulmonary: weaning vent good sats. Cardiac: HR 60s bp ok off pressors FEN/GI: TF restarted - will watch for feeding intolerance ID Antibiotics (date/duration): broad antibiotics for G+ bactermia, graft infection and multiorganismal pneumonia Heme: Hct 24 plt up to 98 Vascular: R UE and neck incisions ok Laboratory Results - last 24 hr 05/31/18 05/31/18 05/31/18 08:38 13:03 16:21 WBC RBC Hgb Hct MCV MCH MCHC RDW Plt Count MPV Sodium Potassium Chloride Carbon Dioxide Anion Gap BUN Creatinine Estimated GFR POC Glucose 254 H 205 H 205 H Random Glucose Calcium Phosphorus Magnesium Total Bilirubin AST ALT Alkaline Phosphatase Total Protein Albumin 05/31/18 06/01/18 06/01/18 22:19 01:22 05:10 WBC 11.0 RBC 2.89 L Hgb 8.4 L Hct 24.1 L MCV 83.6 MCH 29.2 MCHC 34.9 RDW 17.2 Plt Count 98 L D MPV 9.3 Sodium Potassium Chloride Carbon Dioxide Anion Gap BUN Creatinine Estimated GFR POC Glucose 225 H 209 H Random Glucose Calcium Phosphorus Magnesium Total Bilirubin AST ALT Alkaline Phosphatase Total Protein Albumin 06/01/18 06/01/18 05:10 05:17 WBC RBC Hgb Hct MCV MCH MCHC RDW Plt Count MPV Sodium 143 Potassium 3.4 L Chloride 102 Carbon Dioxide 25.7 Anion Gap 15 BUN 82 H Creatinine 6.32 H Estimated GFR 11 L POC Glucose 223 H Random Glucose 235 H Calcium 8.1 L Phosphorus 6.9 H Magnesium 2.3 Total Bilirubin 0.6 AST 12 L ALT 15 Alkaline Phosphatase 89 Total Protein 6.6 Albumin 2.9 L Microbiology 05/30/18 14:45 Aerobic Blood Culture - Preliminary Blood - Peripheral gram positive cocci Anaerobic Blood Culture - Preliminary No growth in 1 day 05/30/18 14:35 Aerobic Blood Culture - Preliminary Blood - Peripheral gram positive cocci Anaerobic Blood Culture - Preliminary No growth in 1 day 05/28/18 00:48 Aerobic Blood Culture - Final Blood - Peripheral S. aureus MRSA Anaerobic Blood Culture - Preliminary No growth in 3 days 05/27/18 22:40 Aerobic Blood Culture - Final Blood - Peripheral S. aureus MRSA Anaerobic Blood Culture - Preliminary No growth in 4 days Impressions Abdomen X-Ray 05/31/18 00:00 CONCLUSION: 1. Suction-type NGT in the stomach. Assessment and Plan - Assessment (1) Septic shock Code(s): A41.9 - Sepsis, unspecified organism; R65.21 - Severe sepsis with septic shock Status: Acute (2) Arteriovenous graft infection Code(s): T82.7XXA - Infection and inflammatory reaction due to other cardiac and vascular devices, implants and grafts, initial encounter Status: Acute - Plan POD#4 s/p excision of R neck and arm graft off pressors and VAN 1. Continue vent wean 2. continue to lighten sedation and await purposeful movement - agree metabolic given true septic shock 3. adv TF 4. Continue broad antibiotics; f/u cultures 5. wound ok; gauze prn
[2018-06-01] MEDS: Senna/Docusate Sodium 8.6/50 MG Tablet PO SCH ×2 (08:52→23:01)
--- NOTE | 2018-06-01 10:03 | P.PNCC ---
Subjective Subjective Remarks/Hospital Course: Hospital Course: Mr. Laguerre is a 73-year-old -[place] male with past medical history significant for end-stage renal disease on hemodialysis, hypertension, complicated vascular access, HeRO graft placement by Dr. Umana on 09/23/2017, revision and PTFE replacement 12/25/17. who presented to the [facility] with probable sepsis and shock. Dr. Umana was contacted and patient was accepted for transfer to CVICU in [facility]. I immediately evaluated the patient on arrival to CVICU. Patient is currently on BiPAP (transported on BiPAP) severely encephalopathic hardly wakes up to sternal rub, with a rapid shallow breathing. BiPAP settings 18/8, 60% FiO2. He is literally unresponsive and not protecting airway. Currently he is on Levophed at 20 mcg/min with a map 65-70. He is also on amiodarone for atrial fibrillation with RVR. Because of lack of airway protection, severe encephalopathy, septic shock and hypoxia I proceeded with endotracheal intubation. His glottic opening was completely occluded with thick secretions, several minutes of suctioning needed to clear the secretions prior to intubation. Postintubation Levophed had to be increased to 30 mcg/min, I also placed an arterial line. All cultures, routine labs and lactic acid pending at this time. I have started him on vancomycin and Zosyn. Discussed case with Dr. Umana extensively Patient was unable to provide any history, according to the RN who got report patient apparently had GI bleed, underwent EGD with cauterization of duodenal ulcer few days ago. Will avoid heparin for DVT prophylaxis. His postintubation ABG showed severe hypoxia with significant AA gradient, metabolic acidosis, and a hemoglobin of 7.6. Currently Levophed is increased to 30 mcg/min, I will transfuse 1 unit PRBC. Chest x-ray shows pulmonary edema will arrange for hemodialysis once his shock is improves. At this time he will not be able to tolerate either hemodialysis or even CVVH Subjective: 05/28: initially evaluated around 6:30am. patient in refractory septic shock. added epinephrine to levophed and vasopressin. discussed with Dr. Umana. obtained u/s of the right upper extremity which demonstrated fluid collection surrounding the HeRO graft which was heterogenous in nature. added single dose of Amikacin to vanc/zosyn regimen to cover ESBL organisms. patient remains in shock. per verbal report from OSH, blood cultures growing MRSA. taken to OR urgently and large amount of purulent drainage debrided from around catheter. HeRO catheter removed. returns from OR persistently unstable. acidosis worsening. bicarb given. discussed with nephrology and will need CRRT. 05/29: s/p emergent debridement and removal of HeRO graft. today vasopressor doses are somewhat lower, although remains on levo,vaso,epi. lactate cleared. s/ p IHD today with 3L removal. blood growing MRSA. sputum growing e.coli, providencia, MRSA. wbc remains elevated. 05/30: off vasopressors. getting IHD again today. hgb 7 and receiving 1 unit prbc during dialysis. encephalopathy persists, not following commands. 05/31: clinically continues to improve. not following commands, very slow to arouse. bradycardic this AM, but tolerating hemodynamically. HD yesterday with volume removal. 06/01: Clinically improved off all pressors. Sedated with propofol and fentanyl , opens eyes moves extremities not following commands. Plan for hemodialysis today. Initiate CPAP trial after hemodialysis. Persistently bacteremic with MRSA, repeat cultures in 24 hours Objective Vital Signs / I&O: Vital Signs 05/31/18 11:00 05/31/18 11:41 05/31/18 13:59 Temperature 94.3 F L Pulse Rate 69 Respiratory Rate 16 16 16 Blood Pressure 109/54 L Pulse Oximetry 99 98 05/31/18 15:00 05/31/18 16:25 05/31/18 16:30 Temperature 95.8 F L Pulse Rate 68 94 H Respiratory Rate 16 17 28 H Blood Pressure 135/65 Pulse Oximetry 98 97 97 05/31/18 20:00 05/31/18 22:00 05/31/18 22:34 Temperature 97.9 F 96.2 F L Pulse Rate 84 75 Respiratory Rate 17 17 Blood Pressure 103/48 L Pulse Oximetry 96 05/31/18 22:36 06/01/18 00:00 06/01/18 00:20 Temperature 97.4 F L Pulse Rate 70 Respiratory Rate 17 16 16 Blood Pressure 124/58 L Pulse Oximetry 97 96 97 06/01/18 03:20 06/01/18 04:00 06/01/18 07:00 Temperature 96.2 F L 93.8 F L Pulse Rate 53 L 68 Respiratory Rate 16 17 16 Blood Pressure 108/55 L 131/65 Pulse Oximetry 97 97 98 06/01/18 07:33 Temperature Pulse Rate Respiratory Rate Blood Pressure Pulse Oximetry 98 Intake & Output 05/31/18 06/01/18 06/01/18 18:59 06:59 18:59 Intake Total 700 / 700 248 / 248 350 / 350 Output Total 50 / 50 0 / 0 Balance 650 / 650 248 / 248 350 / 350 Weight 146.7 kg Intake: IV 200 / 200 200 / 200 350 / 350 Diprivan 1000 mg/100 ml Inj 1, 100 / 100 100 / 100 000 mg In 100 ml @ 5 MCG/KG/MIN 3.87 mls/hr IV.CONT TITRATE PRN Rx#:[id number] Flexbumin 25% Inj 100 ML @ 60 100 / 100 100 / 100 mls/hr IV.SIG Q12H TRACIE Rx#: [id number] Vancomycin Inj 1,000 MG In NS 250 / 250 Inj 250 ML @ 250 mls/hr IV.SIG WITH DIALYSIS TRACIE Rx#:[id number] Rocephin Inj 1,000 MG In NS Inj 100 / 100 100 ML @ 200 mls/hr IV.SIG Q24H TRACIE Rx#:[id number] Oral 0 / 0 0 / 0 Tube Feeding 48 / 48 Autotransfusion Amount 500 / 500 Output: Urine 0 / 0 Urine Amount (Catheter) 0 / 0 Suprapubic 0 / 0 Gastric Drainage 50 / 50 Orogastric Tube 50 / 50 Other: Date of Last Bowel Movement 05/30/18 05/30/18 06/01/18 # Bowel Movements 0 # Incontinent Bowel Movements 1 1 Result Diagrams: 06/01/18 05:10 06/01/18 05:10 Objective Remarks: GENERAL: 73-year-old obese -[place] male, lying in bed, intubated, critically ill. HEENT: Normocephalic. Atraumatic. Pupils equal, round, reactive, mucous membranes moist. NECK: Trachea is midline. There is no JVD. CHEST: PRVC. equal chest rise. Air entry decreased with coarse rhonchi bilaterally CARDIOVASCULAR: Atrial fibrillation rate controlled. Hemodynamically stable. off vasopressors. ABDOMEN: Soft, nontender, nondistended. No guarding. MUSCULOSKELETAL: Pulses 2+. No peripheral edema. Right upper extremity s/p debridement and wrapped in bandages. no significant bleeding from site. NEUROLOGICAL: RASS -2. intubated, sedated. does move all extremities spontaneously. Assessment and Plan - Problem List (1) Septic shock Code(s): A41.9 - Sepsis, unspecified organism; R65.21 - Severe sepsis with septic shock Status: Acute (2) Acute hypoxemic respiratory failure Code(s): J96.01 - Acute respiratory failure with hypoxia Status: Acute (3) Acute metabolic encephalopathy Code(s): G93.41 - Metabolic encephalopathy Status: Acute (4) Arteriovenous graft infection Code(s): T82.7XXA - Infection and inflammatory reaction due to other cardiac and vascular devices, implants and grafts, initial encounter Status: Acute (5) Atrial fibrillation with RVR Code(s): I48.91 - Unspecified atrial fibrillation Status: Acute (6) Pulmonary edema Code(s): J81.1 - Chronic pulmonary edema Status: Acute - Assessment and Plan Plan: Assessment: 73yM with ESRD and now HeRO graft infection, with MRSA and septic shock. Additional comorbid HCAP pneumonia from OSH. continue supportive care. continue daily sedation vacations. continue to increase enteral tube feeds. NEURO: Acute metabolic encephalopathy -propofol for goal RASS -2. -daily sedation vacation. -Patient's unresponsiveness most likely secondary to severe sepsis and toxic metabolic encephalopathy, slowly improving but persistent. RESP: Acute hypoxemic and hypercarbic respiratory failure Pulmonary edema HCAP aspiration pneumonia- present on admission -PRVC/AC. Ventilator bundle. DuoNeb every 6 hours scheduled and as needed - continue abx. daily SAT/SBT: CV: Septic shock- resolved Acute severe anion gap Metabolic acidosis- resolved Pulmonary edema Atrial fibrillation with RVR - wean stress dose steroids - HD daily for volume removal and electrolyte/acid-base abnormalities - A. fib rate is controlled, cannot anticoagulate due to history of recent GI bleed GI/HEME: Recent GI bleed Anemia requiring transfusion - nepro tube feeds - nutrition consult for TF recs - IV Protonix : End-stage renal disease on hemodialysis HeRO graft placed 09/2017 -Nephrology: Dr. Davidson following -continue HD per nephrology ID: Septic shock- resolved HeRO graft infection HCAP pneumonia- present on admission -ID Dr. Morgan, abx management per ID -Dr. Umana following - 05/27, 05/28, 05/30 blood cultures MRSA - 05/27 sputum cultures: providencia, MRSA, e.coli -cont vancomycin: keep trough 15-20, cont ceftriaxone - will need 7 days coverage for HCAP pneumonia - will need 6 weeks coverage for MRSA graft infection ENDO: Type 2 diabetes Presumed Adrenal insufficiency -Sliding scale insulin -hydrocortisone taper. PROPH: -Bilateral lower extremity SCDs. Avoid chemical DVT prophylaxis due to recent GI bleed. IV Protonix 40 mg every 12 LINES: -obtain piv x 2 and cand/c CVL. -left radial arterial line 05/27: keep for serial blood sampling. -right femoral vascath at OSH- most likely 05/26.
[2018-06-01] MEDS: Pantoprazole Inj 40 MG Vial IV.PUSH SCH ×2 (11:11→22:30)
[2018-06-01] MEDS: Albumin Human 25% Inj 100 ML IV.SIG SCH ×2 (11:11→22:31)
--- NOTE | 2018-06-01 11:54 | P.PNNP ---
Subjective Interval history: Patient remains on ventilator Physical Exam Vital signs: Vital Signs 05/31/18 13:59 05/31/18 15:00 05/31/18 16:25 Temperature 95.8 F L Pulse Rate 68 Respiratory Rate 16 16 17 Blood Pressure 135/65 Pulse Oximetry 98 98 97 05/31/18 16:30 05/31/18 20:00 05/31/18 22:00 Temperature 97.9 F 96.2 F L Pulse Rate 94 H 84 Respiratory Rate 28 H 17 Blood Pressure 103/48 L Pulse Oximetry 97 96 05/31/18 22:34 05/31/18 22:36 06/01/18 00:00 Temperature 97.4 F L Pulse Rate 75 70 Respiratory Rate 17 17 16 Blood Pressure 124/58 L Pulse Oximetry 97 96 06/01/18 00:20 06/01/18 03:20 06/01/18 04:00 Temperature 96.2 F L Pulse Rate 53 L Respiratory Rate 16 16 17 Blood Pressure 108/55 L Pulse Oximetry 97 97 97 06/01/18 07:00 06/01/18 07:33 06/01/18 11:00 Temperature 93.8 F L Pulse Rate 68 67 Respiratory Rate 16 Blood Pressure 131/65 Pulse Oximetry 98 98 Intake & Output 05/31/18 06/01/18 06/01/18 18:59 06:59 18:59 Intake Total 700 / 700 248 / 248 350 / 350 Output Total 50 / 50 0 / 0 Balance 650 / 650 248 / 248 350 / 350 Weight 146.7 kg Intake: IV 200 / 200 200 / 200 350 / 350 Diprivan 1000 mg/100 ml Inj 1, 100 / 100 100 / 100 000 mg In 100 ml @ 5 MCG/KG/MIN 3.87 mls/hr IV.CONT TITRATE PRN Rx#:[id number] Flexbumin 25% Inj 100 ML @ 60 100 / 100 100 / 100 mls/hr IV.SIG Q12H TRACIE Rx#: [id number] Vancomycin Inj 1,000 MG In NS 250 / 250 Inj 250 ML @ 250 mls/hr IV.SIG WITH DIALYSIS TRACIE Rx#:[id number] Rocephin Inj 1,000 MG In NS Inj 100 / 100 100 ML @ 200 mls/hr IV.SIG Q24H TRACIE Rx#:[id number] Oral 0 / 0 0 / 0 Tube Feeding 48 / 48 Autotransfusion Amount 500 / 500 Output: Urine 0 / 0 Urine Amount (Catheter) 0 / 0 Suprapubic 0 / 0 Gastric Drainage 50 / 50 Orogastric Tube 50 / 50 Other: Date of Last Bowel Movement 05/30/18 05/30/18 06/01/18 # Bowel Movements 0 # Incontinent Bowel Movements 1 1 - Constitutional no acute distress - Routine HEENT Exam Head: Present: normocephalic Eye: Present: EOMI - Routine Respiratory Exam Present: CTA bilaterally - Routine Cardiovascular Exam Present: RRR - Routine Abdominal Exam Present: soft, normoactive bowel sounds - Routine Extremities Exam Present: edema - Urinary Catheter Management Suprapubic Cath placed during this visit: no Assessment and Plan - Assessment (1) End stage renal disease on dialysis Code(s): N18.6 - End stage renal disease; Z99.2 - Dependence on renal dialysis Status: Acute (2) Acute hypoxemic respiratory failure Code(s): J96.01 - Acute respiratory failure with hypoxia Status: Acute (3) Arteriovenous graft infection Code(s): T82.7XXA - Infection and inflammatory reaction due to other cardiac and vascular devices, implants and grafts, initial encounter Status: Acute (4) Atrial fibrillation with RVR Code(s): I48.91 - Unspecified atrial fibrillation Status: Acute (5) Hemodialysis access, AV graft Code(s): Z99.2 - Dependence on renal dialysis Status: Acute - Plan Patient has sepsis and undergoing treatment with IV vancomycin and ceftriaxone He did well with hemodialysis next HD today seen at HD UF 3.5 L
--- NOTE | 2018-06-01 14:20 | XR ---
EXAM DATE: 06/01/2018 2:17 PM EDT AGE/SEX: 73 years / Male INDICATIONS: Respiratory distress CLINICAL DATA: This is the patient's initial encounter. Patient reports that signs and symptoms have been present for 4 - 6 days and indicates a pain score of Nonresponsive. MEDICAL/SURGICAL HISTORY: . renal failure, MRSA . None known COMPARISON: [facility], CHEST 1V SINGLE AP, 05/28/2018. . FINDINGS: Bilateral infiltrates are noted with the left being stable and the right being worse than on the prev ious examination. Left internal jugular central line has its tip at the junction of the superior vena cava and brachiocephalic vein. Nasogastric tube is below diaphragm. Endotracheal tube remains stable . The heart is stable. Degenerative changes are noted throughout the thoracic spine. CONCLUSION: Bilateral pulmonary infiltrates which are worse on the right and stable on the left. Electronically signed by: Breezy Montero MD 06/01/2018 2:19 PM EDT
--- NOTE | 2018-06-01 14:28 | P.PNID ---
Subjective Remarks: anais Umana: removal of the AV graft was partial due to pt's hemodynamica instability thru the surgery blood clx from 05/30 growing MRSA 2/2 off pressors Hypothermic with temp of 94F small amount of secretions remains on vent growing GNBs from sputum clx afebrile + large amou t of draiange from te inchsiion (proximal aspect) Antibiotics: vanco zosyn Allergies/Adverse Reactions: Allergies No Known Allergies Allergy (Unknown, Uncoded 12/24/17 14:57) Objective Vital Signs 05/31/18 15:00 05/31/18 16:25 05/31/18 16:30 Temperature 95.8 F L Pulse Rate 68 94 H Respiratory Rate 16 17 28 H Blood Pressure 135/65 Pulse Oximetry 98 97 97 05/31/18 20:00 05/31/18 22:00 05/31/18 22:34 Temperature 97.9 F 96.2 F L Pulse Rate 84 75 Respiratory Rate 17 17 Blood Pressure 103/48 L Pulse Oximetry 96 05/31/18 22:36 06/01/18 00:00 06/01/18 00:20 Temperature 97.4 F L Pulse Rate 70 Respiratory Rate 17 16 16 Blood Pressure 124/58 L Pulse Oximetry 97 96 97 06/01/18 03:20 06/01/18 04:00 06/01/18 07:00 Temperature 96.2 F L 93.8 F L Pulse Rate 53 L 68 Respiratory Rate 16 17 16 Blood Pressure 108/55 L 131/65 Pulse Oximetry 97 97 98 06/01/18 07:33 06/01/18 11:00 06/01/18 12:00 Temperature 94.2 F L Pulse Rate 64 65 Respiratory Rate 17 16 Blood Pressure 129/60 Pulse Oximetry 98 100 98 Intake & Output 05/31/18 06/01/18 06/01/18 18:59 06:59 18:59 Intake Total 700 / 700 248 / 248 450 / 450 Output Total 50 / 50 0 / 0 Balance 650 / 650 248 / 248 450 / 450 Weight 146.7 kg Intake: IV 200 / 200 200 / 200 450 / 450 Diprivan 1000 mg/100 ml Inj 1, 100 / 100 100 / 100 000 mg In 100 ml @ 5 MCG/KG/MIN 3.87 mls/hr IV.CONT TITRATE PRN Rx#:[id number] Flexbumin 25% Inj 100 ML @ 60 100 / 100 100 / 100 100 / 100 mls/hr IV.SIG Q12H [facility] Rx#: [id number] Vancomycin Inj 1,000 MG In NS 250 / 250 Inj 250 ML @ 250 mls/hr IV.SIG WITH DIALYSIS [facility] Rx#:[id number] Rocephin Inj 1,000 MG In NS Inj 100 / 100 100 ML @ 200 mls/hr IV.SIG Q24H [facility] Rx#:[id number] Oral 0 / 0 0 / 0 Tube Feeding 48 / 48 Autotransfusion Amount 500 / 500 Output: Urine 0 / 0 Urine Amount (Catheter) 0 / 0 Suprapubic 0 / 0 Gastric Drainage 50 / 50 Orogastric Tube 50 / 50 Other: Date of Last Bowel Movement 05/30/18 05/30/18 06/01/18 # Bowel Movements 0 # Incontinent Bowel Movements 1 1 05/30/18 14:45 Blood - Peripheral Aerobic Blood Culture - Preliminary gram positive cocci 05/30/18 14:45 Blood - Peripheral Anaerobic Blood Culture - Preliminary No growth in 2 days 05/30/18 14:35 Blood - Peripheral Aerobic Blood Culture - Preliminary gram positive cocci 05/30/18 14:35 Blood - Peripheral Anaerobic Blood Culture - Preliminary No growth in 2 days 05/28/18 00:48 Blood - Peripheral Aerobic Blood Culture - Final S. aureus MRSA 05/28/18 00:48 Blood - Peripheral Anaerobic Blood Culture - Preliminary No growth in 4 days 05/27/18 22:40 Blood - Peripheral Aerobic Blood Culture - Final S. aureus MRSA 05/27/18 22:40 Blood - Peripheral Anaerobic Blood Culture - Final No growth in 5 days 05/28/18 14:40 Tissue - Other Gram Stain - Final 05/28/18 14:40 Tissue - Other Wound Culture - Final S. aureus MRSA 05/28/18 14:40 Wound - Arm Gram Stain - Final 05/28/18 14:40 Wound - Arm Wound Culture - Final S. aureus MRSA 05/27/18 21:50 Sputum - Endotracheal Gram Stain - Final 05/27/18 21:50 Sputum - Endotracheal Sputum Culture - Final Escherichia coli Providencia stuartii S. aureus MRSA 05/28/18 14:40 Other Acid Fast Bacilli Smear - Final No acid fast bacilli seen 05/28/18 14:40 Other Mycobacterial Culture - Pending 05/28/18 14:40 Wound - Arm Acid Fast Bacilli Smear - Final No acid fast bacilli seen 05/28/18 14:40 Wound - Arm Mycobacterial Culture - Pending Lab - Hematology Results 05/31/18 06/01/18 05:15 05:10 WBC 9.3 11.0 RBC 2.76 L 2.89 L Hgb 8.1 L 8.4 L Hct 23.3 L 24.1 L MCV 84.7 83.6 MCH 29.5 29.2 MCHC 34.8 34.9 RDW 17.5 H 17.2 Plt Count 60 L 98 L D MPV 9.4 9.3 Lab - Chemistry Results 05/30/18 05/30/18 05/30/18 14:22 15:02 16:11 Sodium Potassium Chloride Carbon Dioxide Anion Gap BUN Creatinine Estimated GFR POC Glucose 127 H 126 H 103 Random Glucose Calcium Phosphorus Magnesium Total Bilirubin AST ALT Alkaline Phosphatase Total Protein Albumin 05/30/18 05/30/18 05/30/18 17:36 18:27 21:45 Sodium Potassium Chloride Carbon Dioxide Anion Gap BUN Creatinine Estimated GFR POC Glucose 114 H 124 H 118 H Random Glucose Calcium Phosphorus Magnesium Total Bilirubin AST ALT Alkaline Phosphatase Total Protein Albumin 05/31/18 05/31/18 05/31/18 03:30 05:15 08:38 Sodium 142 Potassium 3.9 Chloride 101 Carbon Dioxide 25.7 Anion Gap 15 BUN 58 H Creatinine 4.79 H Estimated GFR 15 L POC Glucose 226 H 254 H Random Glucose 243 H D Calcium 8.2 L Phosphorus 6.3 H Magnesium 2.0 Total Bilirubin 0.8 AST 18 ALT 17 Alkaline Phosphatase 105 Total Protein 6.7 Albumin 2.9 L 05/31/18 05/31/18 05/31/18 13:03 16:21 22:19 Sodium Potassium Chloride Carbon Dioxide Anion Gap BUN Creatinine Estimated GFR POC Glucose 205 H 205 H 225 H Random Glucose Calcium Phosphorus Magnesium Total Bilirubin AST ALT Alkaline Phosphatase Total Protein Albumin 06/01/18 06/01/18 06/01/18 01:22 05:10 05:17 Sodium 143 Potassium 3.4 L Chloride 102 Carbon Dioxide 25.7 Anion Gap 15 BUN 82 H Creatinine 6.32 H Estimated GFR 11 L POC Glucose 209 H 223 H Random Glucose 235 H Calcium 8.1 L Phosphorus 6.9 H Magnesium 2.3 Total Bilirubin 0.6 AST 12 L ALT 15 Alkaline Phosphatase 89 Total Protein 6.6 Albumin 2.9 L 06/01/18 06/01/18 08:47 11:17 Sodium Potassium Chloride Carbon Dioxide Anion Gap BUN Creatinine Estimated GFR POC Glucose 239 H 181 H Random Glucose Calcium Phosphorus Magnesium Total Bilirubin AST ALT Alkaline Phosphatase Total Protein Albumin Imaging: ITS Impressions Upper Extremity Ultrasound 05/28/18 00:00 CONCLUSION: 1. Right upper extremity AV (Hero) graft/catheter. 2. Small amount of nonocclusive thrombus in the proximal graft just beyond the radial artery anastomosis to the mid upper extremity level. 3. Complex perigraft fluid most prominently near the shoulder and chest wall measuring up to 3.5 x 1.8 cm. This most likely reflects perigraft hematoma although abscess cannot be excluded in the appropriate clinical setting. Chest X-Ray 05/28/18 05:00 CONCLUSION: Unchanged consolidation scattered throughout the left lung. Abdomen X-Ray 05/31/18 00:00 CONCLUSION: 1. Suction-type NGT in the stomach. Physical Exam: GENERAL: NAD SKIN: Warm and dry. HEAD: Atraumatic. Normocephalic. EYES: Pupils equal and round. No scleral icterus. No injection or drainage. ENT: No nasal bleeding or discharge. Mucous membranes pink and moist. NECK: Trachea midline. No JVD. CARDIOVASCULAR: Regular rate and rhythm. RESPIRATORY: No accessory muscle use. Rhonchi to auscultation. Breath sounds equal bilaterally. GASTROINTESTINAL: Abdomen soft, non-tender, nondistended. Hepatic and splenic margins not palpable. MUSCULOSKELETAL: Extremities without clubbing, cyanosis, +edema. RUE with well approximated incision, stitches in place, still moderate to large amount of thick brown odorless drainage form chest part of the incsion no erythema edema less prominent NEUROLOGICAL: sedated PSYCHIATRIC: unable to assess Assessment and Plan - Plan MRSA sepsis: persistent bacteremia- wilmer 2/2 retained infected graft - sustained bacteremia: 2 cultures by 6 days Indwelling prosthetic vascular device (complex AV graft extending to R atrium ) Infected PD vascuklar synthetic graft: abscess vs infected hematoma - sp partial removal Sepsis, septic shock; clincially resolving ESRD, on HD Acute VDRF Hypotension, requiring pressors: resolving PNA, GNBs. Both isolates S to CFTX Hypothermia cont vancomycin: keep trough 15-20 add rifampin change VAscath change CFTX to Zosyn CXR fu repeat BC monitor the drainage from incision anais Umana
[2018-06-01] MEDS: Albumin Human 25% Inj 100 ML IV.SIG PRN (15:00)
[2018-06-01] MEDS ORDERED: DOPamine 800 MG/500 ML Premix 800 MG/500 ML PLAST..BAG IV.CONT PRN (15:38)
[2018-06-01] MEDS: Vancomycin Inj 1,000 MG in Sodium Chlor 0.9% Inj 250 ML IV.SIG SCH (16:30)
[2018-06-01] MEDS: Piperacil/Tazo 2.25 GM Premix 50 ML IV.SIG SCH (16:38)
[2018-06-02] MEDS: Piperacil/Tazo 2.25 GM Premix 50 ML IV.SIG SCH ×2 (00:17→08:41)
[2018-06-02] MEDS: Insulin NovoLOG Aspart Correctional Sugar Inj SQ SCH ×6 (00:18→20:46)
[2018-06-02] MEDS: Sodium Chlor 0.9% Inj 100 ML IV.SIG SCH ×10 (02:17→18:06)
[2018-06-02] MEDS: Propofol 1000 mg/100 ml Inj 1,000 MG/100 ML BOTTLE IV.CONT PRN (05:00)
[2018-06-02 05:50] LABS: Hematocrit 27.6 % (39.0-51.0); Hemoglobin 9.4 gm/dL (13.0-17.0); Mean Corpuscular HGB Conc 34.1 % (32.0-36.0); Mean Corpuscular Hemoglobin 29.1 pg (27.0-34.0); Mean Corpuscular Volume 85.2 fL (80.0-100.0); Mean Platelet Volume 8.9 fL (7.0-11.0); Platelet Count 123 th/mm3 (150-450); Red Blood Count 3.24 mil/mm3 (4.50-5.90); Red Cell Distribution Width 17.2 % (11.6-17.2); White Blood Count 9.4 th/mm3 (4.0-11.0)
[2018-06-02 06:12] LABS: Alanine Aminotransferase 16 U/L (12-78); Albumin 3.3 g/dL (3.4-5.0); Alkaline Phosphatase 92 U/L (45-117); Anion Gap 14 meq/L (5-15); Aspartate Aminotransferase 13 U/L (15-37); Blood Urea Nitrogen 55 mg/dL (7-18); Calcium 8.4 mg/dL (8.5-10.1); Carbon Dioxide 26.9 meq/L (21.0-32.0); Chloride 102 meq/L (98-107); Glomerular Filtration Rate 12 mL/min (>89); Glucose,Random 171 mg/dL (74-106); Magnesium 2.1 mg/dL (1.5-2.5); Phosphorus 5.3 mg/dL (2.5-4.9); Potassium 3.3 meq/L (3.5-5.1); Sodium 143 meq/L (136-145); Total Protein 7.4 g/dL (6.4-8.2)
[2018-06-02] MEDS: Hydrocortisone Sod Succinate 100 MG Vial IV.PUSH SCH ×3 (06:15→21:40)
[2018-06-02] MEDS: Senna/Docusate Sodium 8.6/50 MG Tablet PO SCH ×2 (08:41→21:05)
--- NOTE | 2018-06-02 08:47 | P.PNCC ---
Subjective Subjective Remarks/Hospital Course: Hospital Course: Mr. Laguerre is a 73-year-old -[place] male with past medical history significant for end-stage renal disease on hemodialysis, hypertension, complicated vascular access, HeRO graft placement by Dr. Umana on 09/23/2017, revision and PTFE replacement 12/25/17. who presented to the [facility] with probable sepsis and shock. Dr. Umana was contacted and patient was accepted for transfer to CVICU in [facility]. I immediately evaluated the patient on arrival to CVICU. Patient is currently on BiPAP (transported on BiPAP) severely encephalopathic hardly wakes up to sternal rub, with a rapid shallow breathing. BiPAP settings 18/8, 60% FiO2. He is literally unresponsive and not protecting airway. Currently he is on Levophed at 20 mcg/min with a map 65-70. He is also on amiodarone for atrial fibrillation with RVR. Because of lack of airway protection, severe encephalopathy, septic shock and hypoxia I proceeded with endotracheal intubation. His glottic opening was completely occluded with thick secretions, several minutes of suctioning needed to clear the secretions prior to intubation. Postintubation Levophed had to be increased to 30 mcg/min, I also placed an arterial line. All cultures, routine labs and lactic acid pending at this time. I have started him on vancomycin and Zosyn. Discussed case with Dr. Umana extensively Patient was unable to provide any history, according to the RN who got report patient apparently had GI bleed, underwent EGD with cauterization of duodenal ulcer few days ago. Will avoid heparin for DVT prophylaxis. His postintubation ABG showed severe hypoxia with significant AA gradient, metabolic acidosis, and a hemoglobin of 7.6. Currently Levophed is increased to 30 mcg/min, I will transfuse 1 unit PRBC. Chest x-ray shows pulmonary edema will arrange for hemodialysis once his shock is improves. At this time he will not be able to tolerate either hemodialysis or even CVVH Subjective: 05/28: initially evaluated around 6:30am. patient in refractory septic shock. added epinephrine to levophed and vasopressin. discussed with Dr. Umana. obtained u/s of the right upper extremity which demonstrated fluid collection surrounding the HeRO graft which was heterogenous in nature. added single dose of Amikacin to vanc/zosyn regimen to cover ESBL organisms. patient remains in shock. per verbal report from OSH, blood cultures growing MRSA. taken to OR urgently and large amount of purulent drainage debrided from around catheter. HeRO catheter removed. returns from OR persistently unstable. acidosis worsening. bicarb given. discussed with nephrology and will need CRRT. 05/29: s/p emergent debridement and removal of HeRO graft. today vasopressor doses are somewhat lower, although remains on levo,vaso,epi. lactate cleared. s/ p IHD today with 3L removal. blood growing MRSA. sputum growing e.coli, providencia, MRSA. wbc remains elevated. 05/30: off vasopressors. getting IHD again today. hgb 7 and receiving 1 unit prbc during dialysis. encephalopathy persists, not following commands. 05/31: clinically continues to improve. not following commands, very slow to arouse. bradycardic this AM, but tolerating hemodynamically. HD yesterday with volume removal. 06/01: Clinically improved off all pressors. Sedated with propofol and fentanyl , opens eyes moves extremities not following commands. Plan for hemodialysis today. Initiate CPAP trial after hemodialysis. Persistently bacteremic with MRSA, repeat cultures in 24 hours 06/02: Remains in septic shock, though pressor requirement has improved. Hypotensive bradycardic while getting HD yesterday, started on Dopamine, now at 3 mcg/kg/min. Pus being expressed from upper part of right upper chest [id number] (HeRO AVG removal site). Hypothermic. Some pus around the suprapubic catheter Objective Vital Signs / I&O: Vital Signs 06/01/18 11:00 06/01/18 12:00 06/01/18 15:00 Temperature 94.2 F L 97.7 F Pulse Rate 64 65 90 Respiratory Rate 17 16 16 Blood Pressure 129/60 162/75 H Pulse Oximetry 100 98 96 06/01/18 19:19 06/01/18 19:25 06/01/18 20:00 Temperature 98.6 F Pulse Rate 92 H 64 Respiratory Rate 17 16 16 Blood Pressure 134/63 Pulse Oximetry 92 L 95 06/01/18 23:30 06/02/18 00:00 06/02/18 04:00 Temperature 97.8 F 97.0 F L Pulse Rate 80 86 Respiratory Rate 16 16 16 Blood Pressure 121/60 102/52 L Pulse Oximetry 94 L 95 95 06/02/18 04:30 06/02/18 04:33 06/02/18 07:00 Temperature 98.6 F Pulse Rate 87 90 Respiratory Rate 16 16 16 Blood Pressure 107/58 L Pulse Oximetry 96 95 Intake & Output 06/01/18 06/02/18 06/02/18 18:59 06:59 18:59 Intake Total 1030 / 1030 392 / 392 Output Total 3500 / 3500 200 / 200 Balance -2470 / -2470 192 / 192 Weight 143 kg Intake: IV 950 / 950 336 / 336 Diprivan 1000 mg/100 ml Inj 1, 200 / 200 186 / 186 000 mg In 100 ml @ 5 MCG/KG/MIN 3.87 mls/hr IV.CONT TITRATE PRN Rx#:[id number] Flexbumin 25% Inj 100 ML @ 60 200 / 200 100 / 100 mls/hr IV.SIG Q12H [facility] Rx#: [id number] Zosyn 2.25 GM Premix 50 ML @ 50 / 50 50 / 50 100 mls/hr IV.SIG Q8H [facility] Rx#: [id number] Vancomycin Inj 1,000 MG In NS 500 / 500 Inj 250 ML @ 250 mls/hr IV.SIG WITH DIALYSIS [facility] Rx#:[id number] Oral 0 / 0 Tube Feeding 80 / 80 56 / 56 Output: Urine 0 / 0 Hemodialysis Amount 3500 / 3500 Urine Amount (Catheter) 0 / 0 0 / 0 Suprapubic 0 / 0 0 / 0 Wound Drainage 200 / 200 Right Upper Shoulder 200 / 200 Other: Date of Last Bowel Movement 06/01/18 05/30/18 06/02/18 # Incontinent Bowel Movements 2 1 Result Diagrams: 06/02/18 05:30 06/02/18 05:30 Objective Remarks: GENERAL: 73-year-old obese -[place] male, lying in bed, intubated, critically ill. HEENT: Normocephalic. Atraumatic. Pupils equal, round, reactive. NECK: Trachea is midline. There is no JVD. CHEST: PRVC. equal chest rise. Air entry decreased with coarse rhonchi bilaterally CARDIOVASCULAR: Atrial fibrillation rate controlled. No murmurs. Dopamine at 3 mcg/kg/min ABDOMEN: Soft, nontender, nondistended. No guarding. Supra pubic catheter site with some pus around MUSCULOSKELETAL: Right upper extremity s/p debridement upper incision has pus draining. Right groin catheter site appears CDI. Pulses 2+. No peripheral edema. NEUROLOGICAL: RASS -2. intubated, sedated. does move all extremities spontaneously. Not following commands Assessment and Plan - Problem List (1) Septic shock Code(s): A41.9 - Sepsis, unspecified organism; R65.21 - Severe sepsis with septic shock Status: Acute (2) Acute hypoxemic respiratory failure Code(s): J96.01 - Acute respiratory failure with hypoxia Status: Acute (3) Acute metabolic encephalopathy Code(s): G93.41 - Metabolic encephalopathy Status: Acute (4) Arteriovenous graft infection Code(s): T82.7XXA - Infection and inflammatory reaction due to other cardiac and vascular devices, implants and grafts, initial encounter Status: Acute (5) Atrial fibrillation with RVR Code(s): I48.91 - Unspecified atrial fibrillation Status: Acute (6) Pulmonary edema Code(s): J81.1 - Chronic pulmonary edema Status: Acute - Assessment and Plan Plan: Assessment: 73yM with ESRD and now HeRO graft infection, with MRSA and septic shock. Additional comorbid HCAP pneumonia from OSH. continue supportive care. continue daily sedation vacations. continue to increase enteral tube feeds. Remains in septic shock requiring Dopamine NEURO: Acute metabolic encephalopathy -propofol/fentanyl for goal RASS -1. -DC Fentanyl today. Daily sedation vacation. -Patient's unresponsiveness most likely secondary to severe sepsis and toxic metabolic encephalopathy, slowly improving but persistent. RESP: Acute hypoxemic and hypercarbic respiratory failure Pulmonary edema HCAP aspiration pneumonia- present on admission -PRVC/AC. Ventilator bundle. DuoNeb every 6 hours scheduled and as needed -Continue abx. daily SAT/SBT: -Mental start will not permit extubation CV: Septic shock Acute severe anion gap Metabolic acidosis- resolved Pulmonary edema Atrial fibrillation with RVR - Placed on Dopamine yesterday due to bradycardia hypotension - wean stress dose steroids as tolerated - HD daily for volume removal and electrolyte/acid-base abnormalities - A. fib rate is controlled, cannot anticoagulate due to history of recent GI bleed GI/HEME: Recent GI bleed Anemia requiring transfusion - Nepro tube feeds - nutrition consult for TF recs - IV Protonix : End-stage renal disease on hemodialysis HeRO graft placed 09/2017 - Nephrology: Dr. Davidson following - continue HD per nephrology - D/W Dr. davidson, if primary automotive sales representative agreeable, remove suprapubic catheter ID: Septic shock- resolved HeRO graft infection HCAP pneumonia- present on admission -ID Dr. Morgan, abx management per ID -Dr. Umana following - 05/27, 05/28, 05/30 blood cultures MRSA - 05/27 sputum cultures: providencia, MRSA, e.coli -cont vancomycin: keep trough 15-20, rifampin added 06/01, cont ceftriaxone - will need 7 days coverage for HCAP pneumonia - will need 6 weeks coverage for MRSA graft infection ENDO: Type 2 diabetes Presumed Adrenal insufficiency -Sliding scale insulin -hydrocortisone taper. PROPH: -Bilateral lower extremity SCDs. Avoid chemical DVT prophylaxis due to recent GI bleed. IV Protonix 40 mg every 12 LINES: -obtain piv x 2 and continue CVL placed at OSH. -left radial arterial line 05/27: -right femoral vascath at OSH- most likely 05/26. CCT 42 min Code Status: Full
--- NOTE | 2018-06-02 09:07 | P.PNVS ---
Subjective Post Op Day #: 5 Procedure: Excision of arm and neck grafts, grossly infected Subjective/Hospital Course: req dopamine ? recurrent infection vs volume down from HD yesterday continues to wean sedation neck incision opened and has great tissue beneath Objective Vital Signs / I&O: Vital Signs 06/01/18 11:00 06/01/18 12:00 06/01/18 15:00 Temperature 94.2 F L 97.7 F Pulse Rate 64 65 90 Respiratory Rate 17 16 16 Blood Pressure 129/60 162/75 H Pulse Oximetry 100 98 96 06/01/18 19:19 06/01/18 19:25 06/01/18 20:00 Temperature 98.6 F Pulse Rate 92 H 64 Respiratory Rate 17 16 16 Blood Pressure 134/63 Pulse Oximetry 92 L 95 06/01/18 23:30 06/02/18 00:00 06/02/18 04:00 Temperature 97.8 F 97.0 F L Pulse Rate 80 86 Respiratory Rate 16 16 16 Blood Pressure 121/60 102/52 L Pulse Oximetry 94 L 95 95 06/02/18 04:30 06/02/18 04:33 06/02/18 07:00 Temperature 98.6 F Pulse Rate 87 90 Respiratory Rate 16 16 16 Blood Pressure 107/58 L Pulse Oximetry 96 95 06/02/18 08:30 Temperature Pulse Rate Respiratory Rate 16 Blood Pressure Pulse Oximetry 97 Intake & Output 06/01/18 06/02/18 06/02/18 18:59 06:59 18:59 Intake Total 1030 / 1030 392 / 392 Output Total 3500 / 3500 200 / 200 Balance -2470 / -2470 192 / 192 Weight 143 kg Intake: IV 950 / 950 336 / 336 Diprivan 1000 mg/100 ml Inj 1, 200 / 200 186 / 186 000 mg In 100 ml @ 5 MCG/KG/MIN 3.87 mls/hr IV.CONT TITRATE PRN Rx#:[id number] Flexbumin 25% Inj 100 ML @ 60 200 / 200 100 / 100 mls/hr IV.SIG Q12H [facility] Rx#: [id number] Zosyn 2.25 GM Premix 50 ML @ 50 / 50 50 / 50 100 mls/hr IV.SIG Q8H [facility] Rx#: [id number] Vancomycin Inj 1,000 MG In NS 500 / 500 Inj 250 ML @ 250 mls/hr IV.SIG WITH DIALYSIS [facility] Rx#:[id number] Oral 0 / 0 Tube Feeding 80 / 80 56 / 56 Output: Urine 0 / 0 Hemodialysis Amount 3500 / 3500 Urine Amount (Catheter) 0 / 0 0 / 0 Suprapubic 0 / 0 0 / 0 Wound Drainage 200 / 200 Right Upper Shoulder 200 / 200 Other: Date of Last Bowel Movement 06/01/18 05/30/18 06/02/18 # Incontinent Bowel Movements 2 1 Exam: sedated, weaning on vent, good gas exchange on low Dopamine incisions ok but neck one opened to ensure no undrained infection Laboratory Results - last 24 hr 06/01/18 06/01/18 06/01/18 11:17 14:29 16:39 WBC RBC Hgb Hct MCV MCH MCHC RDW Plt Count MPV Sodium Potassium Chloride Carbon Dioxide Anion Gap BUN Creatinine Estimated GFR POC Glucose 181 H 231 H Random Glucose Calcium Phosphorus Magnesium Total Bilirubin AST ALT Alkaline Phosphatase Total Protein Albumin Random Vancomycin 28.1 06/01/18 06/02/18 06/02/18 20:28 02:15 05:28 WBC RBC Hgb Hct MCV MCH MCHC RDW Plt Count MPV Sodium Potassium Chloride Carbon Dioxide Anion Gap BUN Creatinine Estimated GFR POC Glucose 206 H 188 H 170 H Random Glucose Calcium Phosphorus Magnesium Total Bilirubin AST ALT Alkaline Phosphatase Total Protein Albumin Random Vancomycin 06/02/18 06/02/18 06/02/18 05:30 05:30 08:04 WBC 9.4 RBC 3.24 L Hgb 9.4 L Hct 27.6 L MCV 85.2 MCH 29.1 MCHC 34.1 RDW 17.2 Plt Count 123 L MPV 8.9 Sodium 143 Potassium 3.3 L Chloride 102 Carbon Dioxide 26.9 Anion Gap 14 BUN 55 H Creatinine 5.57 H Estimated GFR 12 L POC Glucose 100 Random Glucose 171 H Calcium 8.4 L Phosphorus 5.3 H D Magnesium 2.1 Total Bilirubin 0.7 AST 13 L ALT 16 Alkaline Phosphatase 92 Total Protein 7.4 D Albumin 3.3 L Random Vancomycin Microbiology 05/30/18 14:45 Aerobic Blood Culture - Preliminary Blood - Peripheral gram positive cocci Anaerobic Blood Culture - Preliminary No growth in 2 days 05/30/18 14:35 Aerobic Blood Culture - Preliminary Blood - Peripheral gram positive cocci Anaerobic Blood Culture - Preliminary No growth in 2 days 05/28/18 00:48 Aerobic Blood Culture - Final Blood - Peripheral S. aureus MRSA Anaerobic Blood Culture - Preliminary No growth in 4 days 05/27/18 22:40 Aerobic Blood Culture - Final Blood - Peripheral S. aureus MRSA Anaerobic Blood Culture - Final No growth in 5 days Assessment and Plan - Assessment (1) Septic shock Code(s): A41.9 - Sepsis, unspecified organism; R65.21 - Severe sepsis with septic shock Status: Acute (2) Arteriovenous graft infection Code(s): T82.7XXA - Infection and inflammatory reaction due to other cardiac and vascular devices, implants and grafts, initial encounter Status: Acute - Plan POD#5 s/p excision of R neck and arm graft low pressors and VAN 1. Continue vent wean 2. continue to lighten sedation and await purposeful movement - agree metabolic given true septic shock 3. adv TF 4. W to D neck wound
[2018-06-02] MEDS: Albumin Human 25% Inj 100 ML IV.SIG PRN (09:45)
[2018-06-02] MEDS: Pantoprazole Inj 40 MG Vial IV.PUSH SCH (11:06)
[2018-06-02] MEDS: Albumin Human 25% Inj 100 ML IV.SIG SCH (11:13)
[2018-06-02] MEDS ORDERED: Tobramycin Consult Pharmacy OTHER PRN (11:25)
[2018-06-02] MEDS: Vancomycin Inj 1,000 MG in Sodium Chlor 0.9% Inj 250 ML IV.SIG SCH (11:30)
[2018-06-02] MEDS ORDERED: Gentamicin Consult Pharmacy 1 EACH OTHER SCH (12:00)
--- NOTE | 2018-06-02 12:54 | P.PNID ---
Subjective Remarks: anais Umana: removal of the AV graft was partial due to pt's hemodynamica instability thru the surgery blood clx from 05/30 growing MRSA 11/07 Doing clinically worse: hyupotensive and hypothermic back on pressors On warming blanket small amount of secretions remains on vent + large amou t of draiange from te inchsiion (proximal aspect) was expressed and incision is now packed Antibiotics: vanco zosyn Allergies/Adverse Reactions: Allergies No Known Allergies Allergy (Unknown, Uncoded 12/24/17 14:57) Objective Vital Signs 06/01/18 15:00 06/01/18 19:19 06/01/18 19:25 Temperature 97.7 F Pulse Rate 90 92 H Respiratory Rate 16 17 16 Blood Pressure 162/75 H Pulse Oximetry 96 92 L 06/01/18 20:00 06/01/18 23:30 06/02/18 00:00 Temperature 98.6 F 97.8 F Pulse Rate 64 80 Respiratory Rate 16 16 16 Blood Pressure 134/63 121/60 Pulse Oximetry 95 94 L 95 06/02/18 04:00 06/02/18 04:30 06/02/18 04:33 Temperature 97.0 F L Pulse Rate 86 87 Respiratory Rate 16 16 16 Blood Pressure 102/52 L Pulse Oximetry 95 96 06/02/18 07:00 06/02/18 08:30 06/02/18 10:50 Temperature 98.6 F Pulse Rate 90 99 H Respiratory Rate 16 16 Blood Pressure 107/58 L Pulse Oximetry 95 97 06/02/18 10:54 Temperature 98.1 F Pulse Rate 97 H Respiratory Rate 16 Blood Pressure 106/58 L Pulse Oximetry 98 Intake & Output 06/01/18 06/02/18 06/02/18 18:59 06:59 18:59 Intake Total 1030 / 1030 392 / 392 150 / 150 Output Total 3500 / 3500 200 / 200 Balance -2470 / -2470 192 / 192 150 / 150 Weight 143 kg Intake: IV 950 / 950 336 / 336 150 / 150 Diprivan 1000 mg/100 ml Inj 1, 200 / 200 186 / 186 000 mg In 100 ml @ 5 MCG/KG/MIN 3.87 mls/hr IV.CONT TITRATE PRN Rx#:[id number] Flexbumin 25% Inj 100 ML @ 60 200 / 200 100 / 100 100 / 100 mls/hr IV.SIG WITH DIALYSIS PRN Rx#:[id number] Zosyn 2.25 GM Premix 50 ML @ 50 / 50 50 / 50 50 / 50 100 mls/hr IV.SIG Q8H [facility] Rx#: [id number] Vancomycin Inj 1,000 MG In NS 500 / 500 Inj 250 ML @ 250 mls/hr IV.SIG WITH DIALYSIS [facility] Rx#:[id number] Oral 0 / 0 Tube Feeding 80 / 80 56 / 56 Output: Urine 0 / 0 Hemodialysis Amount 3500 / 3500 Urine Amount (Catheter) 0 / 0 0 / 0 Suprapubic 0 / 0 0 / 0 Wound Drainage 200 / 200 Right Upper Shoulder 200 / 200 Other: Date of Last Bowel Movement 06/01/18 05/30/18 06/02/18 # Incontinent Bowel Movements 2 1 06/01/18 14:23 Blood - Peripheral Aerobic Blood Culture - Preliminary No growth in 1 day 06/01/18 14:23 Blood - Peripheral Anaerobic Blood Culture - Preliminary No growth in 1 day 06/01/18 14:29 Blood - Peripheral Aerobic Blood Culture - Preliminary No growth in 1 day 06/01/18 14:29 Blood - Peripheral Anaerobic Blood Culture - Preliminary No growth in 1 day 05/30/18 14:45 Blood - Peripheral Aerobic Blood Culture - Final S. aureus MRSA 05/30/18 14:45 Blood - Peripheral Anaerobic Blood Culture - Preliminary No growth in 3 days 05/30/18 14:35 Blood - Peripheral Aerobic Blood Culture - Final S. aureus MRSA 05/30/18 14:35 Blood - Peripheral Anaerobic Blood Culture - Preliminary No growth in 3 days 05/28/18 00:48 Blood - Peripheral Aerobic Blood Culture - Final S. aureus MRSA 05/28/18 00:48 Blood - Peripheral Anaerobic Blood Culture - Final No growth in 5 days 06/02/18 09:00 Wound - Incision Gram Stain - Pending 06/02/18 09:00 Wound - Incision Wound Culture - Pending 06/01/18 17:06 Sputum - Endotracheal Gram Stain - Final 06/01/18 17:06 Sputum - Endotracheal Sputum Culture - Pending 05/27/18 22:40 Blood - Peripheral Aerobic Blood Culture - Final S. aureus MRSA 05/27/18 22:40 Blood - Peripheral Anaerobic Blood Culture - Final No growth in 5 days 05/28/18 14:40 Tissue - Other Gram Stain - Final 05/28/18 14:40 Tissue - Other Wound Culture - Final S. aureus MRSA 05/28/18 14:40 Wound - Arm Gram Stain - Final 05/28/18 14:40 Wound - Arm Wound Culture - Final S. aureus MRSA 05/27/18 21:50 Sputum - Endotracheal Gram Stain - Final 05/27/18 21:50 Sputum - Endotracheal Sputum Culture - Final Escherichia coli Providencia stuartii S. aureus MRSA Lab - Hematology Results 06/01/18 06/02/18 05:10 05:30 WBC 11.0 9.4 RBC 2.89 L 3.24 L Hgb 8.4 L 9.4 L Hct 24.1 L 27.6 L MCV 83.6 85.2 MCH 29.2 29.1 MCHC 34.9 34.1 RDW 17.2 17.2 Plt Count 98 L D 123 L MPV 9.3 8.9 Lab - Chemistry Results 05/31/18 05/31/18 05/31/18 13:03 16:21 22:19 Sodium Potassium Chloride Carbon Dioxide Anion Gap BUN Creatinine Estimated GFR POC Glucose 205 H 205 H 225 H Random Glucose Calcium Phosphorus Magnesium Total Bilirubin AST ALT Alkaline Phosphatase Total Protein Albumin 06/01/18 06/01/18 06/01/18 01:22 05:10 05:17 Sodium 143 Potassium 3.4 L Chloride 102 Carbon Dioxide 25.7 Anion Gap 15 BUN 82 H Creatinine 6.32 H Estimated GFR 11 L POC Glucose 209 H 223 H Random Glucose 235 H Calcium 8.1 L Phosphorus 6.9 H Magnesium 2.3 Total Bilirubin 0.6 AST 12 L ALT 15 Alkaline Phosphatase 89 Total Protein 6.6 Albumin 2.9 L 06/01/18 06/01/18 06/01/18 08:47 11:17 16:39 Sodium Potassium Chloride Carbon Dioxide Anion Gap BUN Creatinine Estimated GFR POC Glucose 239 H 181 H 231 H Random Glucose Calcium Phosphorus Magnesium Total Bilirubin AST ALT Alkaline Phosphatase Total Protein Albumin 06/01/18 06/02/18 06/02/18 20:28 02:15 05:28 Sodium Potassium Chloride Carbon Dioxide Anion Gap BUN Creatinine Estimated GFR POC Glucose 206 H 188 H 170 H Random Glucose Calcium Phosphorus Magnesium Total Bilirubin AST ALT Alkaline Phosphatase Total Protein Albumin 06/02/18 06/02/18 06/02/18 05:30 08:04 11:13 Sodium 143 Potassium 3.3 L Chloride 102 Carbon Dioxide 26.9 Anion Gap 14 BUN 55 H Creatinine 5.57 H Estimated GFR 12 L POC Glucose 100 107 Random Glucose 171 H Calcium 8.4 L Phosphorus 5.3 H D Magnesium 2.1 Total Bilirubin 0.7 AST 13 L ALT 16 Alkaline Phosphatase 92 Total Protein 7.4 D Albumin 3.3 L Imaging: ITS Impressions Upper Extremity Ultrasound 05/28/18 00:00 CONCLUSION: 1. Right upper extremity AV (Hero) graft/catheter. 2. Small amount of nonocclusive thrombus in the proximal graft just beyond the radial artery anastomosis to the mid upper extremity level. 3. Complex perigraft fluid most prominently near the shoulder and chest wall measuring up to 3.5 x 1.8 cm. This most likely reflects perigraft hematoma although abscess cannot be excluded in the appropriate clinical setting. Abdomen X-Ray 05/31/18 00:00 CONCLUSION: 1. Suction-type NGT in the stomach. Chest X-Ray 06/01/18 14:00 CONCLUSION: Bilateral pulmonary infiltrates which are worse on the right and stable on the left. Physical Exam: GENERAL: NAD warming blanklet in place SKIN: Warm and dry. No rash HEAD: Atraumatic. Normocephalic. EYES: Pupils equal and round. No scleral icterus. No injection or drainage. ENT: No nasal bleeding or discharge. Mucous membranes pink and moist. NECK: Trachea midline. No JVD. CARDIOVASCULAR: Regular rate and rhythm. Chest incision is open and packed Serosang drainage on the packing RESPIRATORY: No accessory muscle use. Rhonchi to auscultation. Breath sounds equal bilaterally. GASTROINTESTINAL: Abdomen soft, non-tender, nondistended. Hepatic and splenic margins not palpable. MUSCULOSKELETAL: Extremities without clubbing, cyanosis, +edema. RUE with well approximated incision, much more swollen today, especially hand no erythema edema : SP cath in place with no urine in boyle back. NEUROLOGICAL: sedated PSYCHIATRIC: unable to assess LINES: Vascath in R groin - appears and functions OK Assessment and Plan - Plan MRSA sepsis: persistent bacteremia- wilmer 2/2 retained infected graft - sustained bacteremia: 2 cultures by 6 days Indwelling prosthetic vascular device (complex AV graft extending to R atrium ) Infected PD vascuklar synthetic graft: abscess vs infected hematoma - sp partial removal Sepsis, septic shock; clincially resolving ESRD, on HD Acute VDRF Hypotension, requiring pressors: resolving PNA, GNBs. Both isolates S to CFTX Hypothermia Hypothension Clearly another septic episode: persistent graft infx vs new infection pt is critical and unstable cont vancomycin: keep trough 15-20 cont rifampin change VAscath change Zosyn to meropenem will add gentamicinn will start micafungin fu repeat BC monitor the drainage from incision anais RN dw Dong Prater
--- NOTE | 2018-06-02 13:32 | P.PNNP ---
Subjective Interval history: Patient remains on ventilator lot of pus was discharged from surgical wound which is not open in the superior aspect Physical Exam Vital signs: Vital Signs 06/01/18 15:00 06/01/18 19:19 06/01/18 19:25 Temperature 97.7 F Pulse Rate 90 92 H Respiratory Rate 16 17 16 Blood Pressure 162/75 H Pulse Oximetry 96 92 L 06/01/18 20:00 06/01/18 23:30 06/02/18 00:00 Temperature 98.6 F 97.8 F Pulse Rate 64 80 Respiratory Rate 16 16 16 Blood Pressure 134/63 121/60 Pulse Oximetry 95 94 L 95 06/02/18 04:00 06/02/18 04:30 06/02/18 04:33 Temperature 97.0 F L Pulse Rate 86 87 Respiratory Rate 16 16 16 Blood Pressure 102/52 L Pulse Oximetry 95 96 06/02/18 07:00 06/02/18 08:30 06/02/18 10:50 Temperature 98.6 F Pulse Rate 90 99 H Respiratory Rate 16 16 Blood Pressure 107/58 L Pulse Oximetry 95 97 06/02/18 10:54 Temperature 98.1 F Pulse Rate 97 H Respiratory Rate 16 Blood Pressure 106/58 L Pulse Oximetry 98 Intake & Output 06/01/18 06/02/18 06/02/18 18:59 06:59 18:59 Intake Total 1030 / 1030 392 / 392 150 / 150 Output Total 3500 / 3500 200 / 200 Balance -2470 / -2470 192 / 192 150 / 150 Weight 143 kg Intake: IV 950 / 950 336 / 336 150 / 150 Diprivan 1000 mg/100 ml Inj 1, 200 / 200 186 / 186 000 mg In 100 ml @ 5 MCG/KG/MIN 3.87 mls/hr IV.CONT TITRATE PRN Rx#:[id number] Flexbumin 25% Inj 100 ML @ 60 200 / 200 100 / 100 100 / 100 mls/hr IV.SIG WITH DIALYSIS PRN Rx#:[id number] Zosyn 2.25 GM Premix 50 ML @ 50 / 50 50 / 50 50 / 50 100 mls/hr IV.SIG Q8H [facility] Rx#: [id number] Vancomycin Inj 1,000 MG In NS 500 / 500 Inj 250 ML @ 250 mls/hr IV.SIG WITH DIALYSIS [facility] Rx#:[id number] Oral 0 / 0 Tube Feeding 80 / 80 56 / 56 Output: Urine 0 / 0 Hemodialysis Amount 3500 / 3500 Urine Amount (Catheter) 0 / 0 0 / 0 Suprapubic 0 / 0 0 / 0 Wound Drainage 200 / 200 Right Upper Shoulder 200 / 200 Other: Date of Last Bowel Movement 06/01/18 05/30/18 06/02/18 # Incontinent Bowel Movements 2 1 - Constitutional no acute distress - Routine Neck Exam Present: swelling - Routine Respiratory Exam Present: CTA bilaterally - Routine Cardiovascular Exam Present: RRR - Routine Abdominal Exam Present: soft, normoactive bowel sounds - Routine Extremities Exam Present: edema - Urinary Catheter Management Suprapubic Cath placed during this visit: no Assessment and Plan - Assessment (1) End stage renal disease on dialysis Code(s): N18.6 - End stage renal disease; Z99.2 - Dependence on renal dialysis Status: Acute (2) Acute hypoxemic respiratory failure Code(s): J96.01 - Acute respiratory failure with hypoxia Status: Acute (3) Arteriovenous graft infection Code(s): T82.7XXA - Infection and inflammatory reaction due to other cardiac and vascular devices, implants and grafts, initial encounter Status: Acute (4) Atrial fibrillation with RVR Code(s): I48.91 - Unspecified atrial fibrillation Status: Acute (5) Hemodialysis access, AV graft Code(s): Z99.2 - Dependence on renal dialysis Status: Acute - Plan Patient has sepsis and undergoing treatment with IV vancomycin and ceftriaxone He is seen during hemodialysis seen at HD UF [address] Ortega and then Dr. Smith plan is to discontinue suprapubic catheter As he is draining pus around the exit site Open wound of the right superior aspect of his excisional wound right shoulder 80 Next dialysis is tomorrow
[2018-06-02] MEDS: Micafungin Inj 150 MG in Sodium Chlor 0.9% Inj 100 ML IV.SIG SCH (15:42)
[2018-06-02] MEDS ORDERED: GENTAMICIN IV.SIG ONE (17:00)
[2018-06-02] MEDS ORDERED: SODIUM CHLOR 0.9% IV.SIG ONE (17:00)
[2018-06-03] MEDS: Sodium Chlor 0.9% Inj 100 ML IV.SIG SCH ×10 (00:19→20:30)
[2018-06-03] MEDS: Albumin Human 25% Inj 100 ML IV.SIG SCH ×2 (00:20→10:10)
[2018-06-03] MEDS: Pantoprazole Inj 40 MG Vial IV.PUSH SCH ×2 (00:27→10:08)
[2018-06-03] MEDS: Insulin NovoLOG Aspart Correctional Sugar Inj SQ SCH ×6 (00:45→20:21)
[2018-06-03 06:46] LABS: Hematocrit 29.7 % (39.0-51.0); Mean Corpuscular HGB Conc 33.6 % (32.0-36.0); Mean Corpuscular Hemoglobin 29.2 pg (27.0-34.0); Mean Corpuscular Volume 86.7 fL (80.0-100.0); Mean Platelet Volume 9.7 fL (7.0-11.0); Platelet Count 137 th/mm3 (150-450); Red Blood Count 3.43 mil/mm3 (4.50-5.90); Red Cell Distribution Width 17.6 % (11.6-17.2); White Blood Count 13.2 th/mm3 (4.0-11.0)
[2018-06-03 06:58] LABS: Albumin 3.2 g/dL (3.4-5.0); Anion Gap 12 meq/L (5-15); Aspartate Aminotransferase 11 U/L (15-37); Blood Urea Nitrogen 50 mg/dL (7-18); Carbon Dioxide 27.6 meq/L (21.0-32.0); Chloride 103 meq/L (98-107); Glomerular Filtration Rate 14 mL/min (>89); Glucose,Random 256 mg/dL (74-106); Magnesium 2.4 mg/dL (1.5-2.5); Potassium 3.8 meq/L (3.5-5.1); Sodium 143 meq/L (136-145)
[2018-06-03 07:02] LABS: Alanine Aminotransferase 16 U/L (12-78); Alkaline Phosphatase 122 U/L (45-117); Gentamicin,Random 5.1 mcg/mL; Phosphorus 5.5 mg/dL (2.5-4.9); Total Protein 7.6 g/dL (6.4-8.2)
--- NOTE | 2018-06-03 07:32 | P.PNCC ---
Subjective Subjective Remarks/Hospital Course: Hospital Course: Mr. Laguerre is a 73-year-old -British male with past medical history significant for end-stage renal disease on hemodialysis, hypertension, complicated vascular access, HeRO graft placement by Dr. Umana on 09/23/2017, revision and PTFE replacement 12/25/17. who presented to the [facility] with probable sepsis and shock. Dr. Umana was contacted and patient was accepted for transfer to CVICU in [facility]. I immediately evaluated the patient on arrival to CVICU. Patient is currently on BiPAP (transported on BiPAP) severely encephalopathic hardly wakes up to sternal rub, with a rapid shallow breathing. BiPAP settings 18/8, 60% FiO2. He is literally unresponsive and not protecting airway. Currently he is on Levophed at 20 mcg/min with a map 65-70. He is also on amiodarone for atrial fibrillation with RVR. Because of lack of airway protection, severe encephalopathy, septic shock and hypoxia I proceeded with endotracheal intubation. His glottic opening was completely occluded with thick secretions, several minutes of suctioning needed to clear the secretions prior to intubation. Postintubation Levophed had to be increased to 30 mcg/min, I also placed an arterial line. All cultures, routine labs and lactic acid pending at this time. I have started him on vancomycin and Zosyn. Discussed case with Dr. Umana extensively Patient was unable to provide any history, according to the RN who got report patient apparently had GI bleed, underwent EGD with cauterization of duodenal ulcer few days ago. Will avoid heparin for DVT prophylaxis. His postintubation ABG showed severe hypoxia with significant AA gradient, metabolic acidosis, and a hemoglobin of 7.6. Currently Levophed is increased to 30 mcg/min, I will transfuse 1 unit PRBC. Chest x-ray shows pulmonary edema will arrange for hemodialysis once his shock is improves. At this time he will not be able to tolerate either hemodialysis or even CVVH Subjective: 05/28: initially evaluated around 6:30am. patient in refractory septic shock. added epinephrine to levophed and vasopressin. discussed with Dr. Umana. obtained u/s of the right upper extremity which demonstrated fluid collection surrounding the HeRO graft which was heterogenous in nature. added single dose of Amikacin to vanc/zosyn regimen to cover ESBL organisms. patient remains in shock. per verbal report from OSH, blood cultures growing MRSA. taken to OR urgently and large amount of purulent drainage debrided from around catheter. HeRO catheter removed. returns from OR persistently unstable. acidosis worsening. bicarb given. discussed with nephrology and will need CRRT. 05/29: s/p emergent debridement and removal of HeRO graft. today vasopressor doses are somewhat lower, although remains on levo,vaso,epi. lactate cleared. s/ p IHD today with 3L removal. blood growing MRSA. sputum growing e.coli, providencia, MRSA. wbc remains elevated. 05/30: off vasopressors. getting IHD again today. hgb 7 and receiving 1 unit prbc during dialysis. encephalopathy persists, not following commands. 05/31: clinically continues to improve. not following commands, very slow to arouse. bradycardic this AM, but tolerating hemodynamically. HD yesterday with volume removal. 06/01: Clinically improved off all pressors. Sedated with propofol and fentanyl , opens eyes moves extremities not following commands. Plan for hemodialysis today. Initiate CPAP trial after hemodialysis. Persistently bacteremic with MRSA, repeat cultures in 24 hours 06/02: Remains in septic shock, though pressor requirement has improved. Hypotensive bradycardic while getting HD yesterday, started on Dopamine, now at 3 mcg/kg/min. Pus being expressed from upper part of right upper chest humird9p (HeRO AVG removal site). Hypothermic. Some pus around the suprapubic catheter 06/03: Patient had been weaned off all pressors now. Not requiring dopamine for the last 18 hours. However WBC count 13 K today. Persistent bacteremia with MRSA. Source could be right upper extremity graft remnant versus infected invasive catheters. After hemodialysis removal HD catheter, also remove left IJ central line. Repeat blood cultures in 24 hours. Antibiotics broadened by ID yesterday Objective Vital Signs / I&O: Vital Signs 06/02/18 08:30 06/02/18 10:50 06/02/18 10:54 Temperature 98.1 F Pulse Rate 99 H 97 H Respiratory Rate 16 16 Blood Pressure 106/58 L Pulse Oximetry 97 98 06/02/18 14:42 06/02/18 15:00 06/02/18 15:30 Temperature 98.3 F Pulse Rate 94 H 107 H Respiratory Rate 20 21 16 Blood Pressure 106/58 L Pulse Oximetry 98 97 06/02/18 19:00 06/02/18 19:35 06/02/18 21:41 Temperature 97.1 F L Pulse Rate 83 99 H Respiratory Rate 16 16 16 Blood Pressure 152/63 H Pulse Oximetry 99 06/02/18 23:00 06/02/18 23:20 06/03/18 03:00 Temperature 97.3 F L 97.8 F Pulse Rate 91 H 89 Respiratory Rate 17 16 18 Blood Pressure 144/61 H 155/64 H Pulse Oximetry 99 99 06/03/18 03:20 Temperature Pulse Rate 80 Respiratory Rate 16 Blood Pressure Pulse Oximetry 99 Intake & Output 06/02/18 06/03/18 06/03/18 18:59 06:59 18:59 Intake Total 410 / 410 974 / 974 Balance 410 / 410 974 / 974 Intake: IV 150 / 150 450 / 450 Flexbumin 25% Inj 100 ML @ 60 100 / 100 mls/hr IV.SIG WITH DIALYSIS PRN Rx#:[id number] Merrem Inj 1,000 MG In NS Inj 100 / 100 100 ML @ 200 mls/hr IV.SIG Q24H [facility] Rx#:[id number] Mycamine Inj 150 MG In NS Inj 100 / 100 100 ML @ 100 mls/hr IV.SIG Q24H [facility] Rx#:[id number] Zosyn 2.25 GM Premix 50 ML @ 50 / 50 100 mls/hr IV.SIG Q8H [facility] Rx#: [id number] Vancomycin Inj 1,000 MG In NS 250 / 250 Inj 250 ML @ 250 mls/hr IV.SIG WITH DIALYSIS [facility] Rx#:[id number] Tube Feeding 230 / 230 524 / 524 Tube Irrigant 30 / 30 Other: Date of Last Bowel Movement 06/02/18 Result Diagrams: 06/03/18 05:00 06/03/18 05:00 Objective Remarks: GENERAL: 73-year-old obese -British male, lying in bed, intubated, critically ill. HEENT: Normocephalic. Atraumatic. Pupils equal, round, reactive. NECK: Trachea is midline. There is no JVD. CHEST: PRVC. equal chest rise. Air entry decreased with few coarse rhonchi bilaterally CARDIOVASCULAR: Atrial fibrillation rate controlled. No murmurs. ABDOMEN: Soft, nontender, nondistended. No guarding. Supra pubic catheter in place MUSCULOSKELETAL: Right upper extremity s/p debridement upper incision W/D dressing. Right groin catheter site appears CDI, LIJ clean. Pulses 2+. No peripheral edema. NEUROLOGICAL: Opens eyes spontaneously off sedation. Weakly follows commands 4. Lethargic but no focal deficits Assessment and Plan - Problem List (1) Septic shock Code(s): A41.9 - Sepsis, unspecified organism; R65.21 - Severe sepsis with septic shock Status: Acute (2) Acute hypoxemic respiratory failure Code(s): J96.01 - Acute respiratory failure with hypoxia Status: Acute (3) Acute metabolic encephalopathy Code(s): G93.41 - Metabolic encephalopathy Status: Acute (4) Arteriovenous graft infection Code(s): T82.7XXA - Infection and inflammatory reaction due to other cardiac and vascular devices, implants and grafts, initial encounter Status: Acute (5) Atrial fibrillation with RVR Code(s): I48.91 - Unspecified atrial fibrillation Status: Acute (6) Pulmonary edema Code(s): J81.1 - Chronic pulmonary edema Status: Acute - Assessment and Plan Plan: Assessment: 73yM with ESRD and now HeRO graft infection, with MRSA and septic shock. Additional comorbid HCAP MRSA pneumonia from OSH. continue supportive care. continue daily sedation vacations. continue to increase enteral tube feeds. Remains in septic shock requiring Dopamine NEURO: Acute metabolic encephalopathy -All sedation discontinued, patient's mentation is improving though lethargic -Altered mentation was secondary to toxic metabolic encephalopathy from sepsis and hypercapnia RESP: Acute hypoxemic and hypercarbic respiratory failure Pulmonary edema HCAP with MRSA- present on admission -PRVC/AC. Ventilator bundle. DuoNeb every 6 hours scheduled and as needed -Continue abx. daily SAT/SBT: -Mental status and weakness will not permit extubation CV: Septic shock-resolving Acute severe anion gap Metabolic acidosis- resolved Pulmonary edema Atrial fibrillation with RVR -Currently weaned off all pressors - Dc stress dose steroids 06/03/2018 - HD daily for volume removal and electrolyte/acid-base abnormalities - A. fib rate is controlled, cannot anticoagulate due to history of recent GI bleed GI/HEME: Recent GI bleed Anemia requiring transfusion - Nepro tube feeds - nutrition consult for TF recs - IV Protonix : End-stage renal disease on hemodialysis HeRO graft placed 09/2017 - Nephrology: Dr. Davidson following - continue HD per nephrology, via R femoral HD catheter - D/W Dr. davidson, if primary room service waiter/waitress agreeable, remove suprapubic catheter ID: Septic shock- resolved HeRO graft infection HCAP pneumonia- present on admission Persistent MRSA bacteremia -Persistent MRSA bacteremia could be secondary to infected remnant of the AV graft, versus secondary seeding of the catheters -Remove Vas-Cath after hemodialysis with line holiday for 24 hour, remove left IJ central line - ID Dr. Morgan, abx management per ID - Dr. Umana following - 05/27, 05/28, 05/30 blood cultures MRSA - 05/27 sputum cultures: providencia, MRSA, e.coli -cont vancomycin: keep trough 15-20 cont rifampin - Zosyn to meropenem 06/02, added gentamicin and micafungin - will need 7 days coverage for HCAP pneumonia - will need 6 weeks coverage for MRSA graft infection ENDO: Type 2 diabetes Presumed Adrenal insufficiency -Sliding scale insulin -hydrocortisone discontinued today PROPH: -Bilateral lower extremity SCDs. Avoiding chemical DVT prophylaxis due to recent GI bleed, will start sq heparin due to immobility and watch closely for bleeding 06/03. IV Protonix 40 mg every 12 LINES: -obtain piv x 2 and continue CVL placed at OSH. -left radial arterial line 05/27: -right femoral vascath at OSH- most likely 05/26. Discontinue after hemodialysis today. Place new Vas-Cath 06/04/2018 CCT 38 min
--- NOTE | 2018-06-03 07:41 | P.PNVS ---
Subjective Post Op Day #: 6 Procedure: Excision of arm and neck grafts, grossly infected Subjective/Hospital Course: off pressors VAN, following commands some weaning vent narciso TF Objective Neuro: VAN; following some commands Pulmonary: vent went, good sats Cardiac: reg rate, off pressors FEN/GI: narciso TF scheduled for HD today ID Antibiotics (date/duration): MRSA blood and wound MRSA, E coli from sputum on antibiotics Heme: Hct 28 plt up to 123 Vascular: R neck incision very clean Laboratory Results - last 24 hr 06/02/18 06/02/18 06/02/18 08:04 11:13 16:20 WBC RBC Hgb Hct MCV MCH MCHC RDW Plt Count MPV Sodium Potassium Chloride Carbon Dioxide Anion Gap BUN Creatinine Estimated GFR POC Glucose 100 107 223 H Random Glucose Calcium Phosphorus Magnesium Total Bilirubin AST ALT Alkaline Phosphatase Total Protein Albumin Random Gentamicin 06/02/18 06/03/18 06/03/18 20:40 00:38 04:53 WBC RBC Hgb Hct MCV MCH MCHC RDW Plt Count MPV Sodium Potassium Chloride Carbon Dioxide Anion Gap BUN Creatinine Estimated GFR POC Glucose 252 H 191 H 239 H Random Glucose Calcium Phosphorus Magnesium Total Bilirubin AST ALT Alkaline Phosphatase Total Protein Albumin Random Gentamicin 06/03/18 06/03/18 05:00 05:00 WBC 13.2 H RBC 3.43 L Hgb 10.0 L Hct 29.7 L MCV 86.7 MCH 29.2 MCHC 33.6 RDW 17.6 H Plt Count 137 L MPV 9.7 Sodium 143 Potassium 3.8 Chloride 103 Carbon Dioxide 27.6 Anion Gap 12 BUN 50 H Creatinine 5.00 H Estimated GFR 14 L POC Glucose Random Glucose 256 H Calcium 9.0 Phosphorus 5.5 H Magnesium 2.4 Total Bilirubin 0.8 AST 11 L ALT 16 Alkaline Phosphatase 122 H Total Protein 7.6 Albumin 3.2 L Random Gentamicin 5.1 Microbiology 06/01/18 17:06 Gram Stain - Final Sputum - Endotracheal Sputum Culture - Preliminary S. aureus MRSA 06/02/18 09:00 Gram Stain - Final Wound - Incision 06/01/18 14:23 Aerobic Blood Culture - Preliminary Blood - Peripheral gram positive cocci Anaerobic Blood Culture - Preliminary No growth in 1 day 06/01/18 14:29 Aerobic Blood Culture - Preliminary Blood - Peripheral No growth in 1 day Anaerobic Blood Culture - Preliminary No growth in 1 day 05/30/18 14:45 Aerobic Blood Culture - Final Blood - Peripheral S. aureus MRSA Anaerobic Blood Culture - Preliminary No growth in 3 days 05/30/18 14:35 Aerobic Blood Culture - Final Blood - Peripheral S. aureus MRSA Anaerobic Blood Culture - Preliminary No growth in 3 days 05/28/18 00:48 Aerobic Blood Culture - Final Blood - Peripheral S. aureus MRSA Anaerobic Blood Culture - Final No growth in 5 days Impressions Chest X-Ray 06/01/18 14:00 CONCLUSION: Bilateral pulmonary infiltrates which are worse on the right and stable on the left. Assessment and Plan - Assessment (1) Septic shock Code(s): A41.9 - Sepsis, unspecified organism; R65.21 - Severe sepsis with septic shock Status: Acute (2) Arteriovenous graft infection Code(s): T82.7XXA - Infection and inflammatory reaction due to other cardiac and vascular devices, implants and grafts, initial encounter Status: Acute - Plan POD#6 s/p excision of R neck and arm graft off pressors and VAN; weaning vent 1. Continue vent wean and work towards extubation 2. continue to lighten sedation 3. adv TF 4. W to D neck wound 5. After HD will remove all catheters. If persistent bacteremia, can surgically remove defunctionalized R UE AVG remnant
[2018-06-03] MEDS ORDERED: Gentamicin Inj 100 MG in Sodium Chlor 0.9% Inj 100 ML IV.SIG SCH (09:00)
[2018-06-03] MEDS: Senna/Docusate Sodium 8.6/50 MG Tablet PO SCH (09:22)
[2018-06-03] MEDS: Albumin Human 25% Inj 100 ML IV.SIG PRN (10:00)
[2018-06-03] MEDS: Heparin - SQ 10,000 UNITS/ML Vial SQ SCH ×2 (10:09→20:24)
[2018-06-03] MEDS: Vancomycin Inj 1,000 MG in Sodium Chlor 0.9% Inj 250 ML IV.SIG SCH (10:50)
--- NOTE | 2018-06-03 12:19 | P.PNNP ---
Subjective Interval history: open eyes on vent Physical Exam Vital signs: Vital Signs 06/02/18 14:42 06/02/18 15:00 06/02/18 15:30 Temperature 98.3 F Pulse Rate 94 H 107 H Respiratory Rate 20 21 16 Blood Pressure 106/58 L Pulse Oximetry 98 97 06/02/18 19:00 06/02/18 19:35 06/02/18 21:41 Temperature 97.1 F L Pulse Rate 83 99 H Respiratory Rate 16 16 16 Blood Pressure 152/63 H Pulse Oximetry 99 06/02/18 23:00 06/02/18 23:20 06/03/18 03:00 Temperature 97.3 F L 97.8 F Pulse Rate 91 H 89 Respiratory Rate 17 16 18 Blood Pressure 144/61 H 155/64 H Pulse Oximetry 99 99 06/03/18 03:20 06/03/18 07:00 06/03/18 07:45 Temperature 94.1 F L Pulse Rate 80 75 Respiratory Rate 16 18 16 Blood Pressure 127/65 Pulse Oximetry 99 98 97 06/03/18 11:00 Temperature 96.6 F L Pulse Rate 100 H Respiratory Rate 18 Blood Pressure 117/70 Pulse Oximetry 98 Intake & Output 06/02/18 06/03/18 06/03/18 18:59 06:59 18:59 Intake Total 410 / 410 974 / 974 100 / 100 Balance 410 / 410 974 / 974 100 / 100 Intake: IV 150 / 150 450 / 450 100 / 100 Flexbumin 25% Inj 100 ML @ 60 100 / 100 100 / 100 mls/hr IV.SIG WITH DIALYSIS PRN Rx#:[id number] Merrem Inj 1,000 MG In NS Inj 100 / 100 100 ML @ 200 mls/hr IV.SIG Q24H TRACIE Rx#:[id number] Mycamine Inj 150 MG In NS Inj 100 / 100 100 ML @ 100 mls/hr IV.SIG Q24H TRACIE Rx#:[id number] Zosyn 2.25 GM Premix 50 ML @ 50 / 50 100 mls/hr IV.SIG Q8H TRACIE Rx#: [id number] Vancomycin Inj 1,000 MG In NS 250 / 250 Inj 250 ML @ 250 mls/hr IV.SIG WITH DIALYSIS TRACIE Rx#:[id number] Tube Feeding 230 / 230 524 / 524 Tube Irrigant 30 / 30 Other: Date of Last Bowel Movement 06/02/18 - Constitutional no acute distress - Routine Neck Exam Present: supple - Routine Respiratory Exam Present: CTA bilaterally - Routine Cardiovascular Exam Present: RRR - Routine Abdominal Exam Present: soft, normoactive bowel sounds - Routine Extremities Exam Present: edema - Urinary Catheter Management Suprapubic Cath placed during this visit: no Assessment and Plan - Assessment (1) End stage renal disease on dialysis Code(s): N18.6 - End stage renal disease; Z99.2 - Dependence on renal dialysis Status: Acute (2) Acute hypoxemic respiratory failure Code(s): J96.01 - Acute respiratory failure with hypoxia Status: Acute (3) Arteriovenous graft infection Code(s): T82.7XXA - Infection and inflammatory reaction due to other cardiac and vascular devices, implants and grafts, initial encounter Status: Acute (4) Atrial fibrillation with RVR Code(s): I48.91 - Unspecified atrial fibrillation Status: Acute (5) Hemodialysis access, AV graft Code(s): Z99.2 - Dependence on renal dialysis Status: Acute - Plan Patient has sepsis and undergoing treatment with IV vancomycin and ceftriaxone He is seen during hemodialysis seen at HD [facility] [address] Ortega and then Dr. Smith plan is to discontinue suprapubic catheter As he is draining pus around the exit site Open wound of the right superior aspect of his excisional wound right shoulder 80 Next dialysis ? Fri
[2018-06-03] MEDS: Micafungin Inj 150 MG in Sodium Chlor 0.9% Inj 100 ML IV.SIG SCH (15:01)
--- NOTE | 2018-06-03 15:22 | XR ---
EXAM DATE: 06/03/2018 2:37 PM EDT AGE/SEX: 73 years / Male INDICATIONS: Respiratory disease CLINICAL DATA: This is the patient's initial encounter. Patient reports that signs and symptoms have been present for 1 week and indicates a pain score of Nonresponsive. MEDICAL/SURGICAL HISTORY: Diabetes. Hypertension. end stage renal disease, on dialysis . mult iple A/V dialysis graft revisions COMPARISON: [facility] [place]ST 1V SINGLE AP, 06/01/2018. . FINDINGS: Endotracheal tube tip at the inferior margin the clavicles. Enteric tube is also noted the distal tip believed to extend off the inferior margin of the film. Elevated right hemidiaphragm. There is a lef t effusion and left lower lobe and midlung airspace disease. Associated atelectasis in the left midlu ng is also noted. Osseous structures are intact. CONCLUSION: Improved aeration of both lungs with persistent consolidation and probable effusion on the left. Electronically signed by: Sid Sandoval MD 06/03/2018 3:21 PM EDT
[2018-06-04] MEDS: Sodium Chlor 0.9% Inj 100 ML IV.SIG SCH ×13 (00:30→21:40)
[2018-06-04] MEDS: Albumin Human 25% Inj 100 ML IV.SIG SCH ×3 (01:26→22:55)
[2018-06-04] MEDS: Pantoprazole Inj 40 MG Vial IV.PUSH SCH ×3 (01:27→22:54)
[2018-06-04] MEDS: Insulin NovoLOG Aspart Correctional Sugar Inj SQ SCH ×6 (01:28→21:39)
[2018-06-04] MEDS: Senna/Docusate Sodium 8.6/50 MG Tablet PO SCH ×3 (01:31→20:40)
--- NOTE | 2018-06-04 03:38 | XR ---
EXAM DATE: 06/04/2018 3:35 AM EDT AGE/SEX: 73 years / Male INDICATIONS: Short of breath. CLINICAL DATA: This is the patient's subsequent encounter. Patient reports that signs and symptoms h ave been present for 4 - 6 days and indicates a pain score of 0/10. MEDICAL/SURGICAL HISTORY: Hypertension. Diabetes. . end stage renal disease, on dialysis . mu ltiple A/V dialysis graft revisions COMPARISON: [facility], CHEST 1V SINGLE AP, 06/03/2018. . FINDINGS: Mild bibasilar atelectasis and small left pleural effusion are not significantly changed. No pneumoth orax. Heart size stable, within normal limits. Endotracheal tube tip is approximately 4 cm above the kimberley. There is a nasogastric tube with tip in the stomach. CONCLUSION: No significant change. Electronically signed by: Jordan Nava MD 06/04/2018 3:37 AM EDT
--- NOTE | 2018-06-04 07:20 | P.PNCC ---
Subjective Subjective Remarks/Hospital Course: Hospital Course: Mr. Laguerre is a 73-year-old -Swazi male with past medical history significant for end-stage renal disease on hemodialysis, hypertension, complicated vascular access, HeRO graft placement by Dr. Umana on 09/23/2017, revision and PTFE replacement 12/25/17. who presented to the [facility] with probable sepsis and shock. Dr. Umana was contacted and patient was accepted for transfer to CVICU in [facility]. I immediately evaluated the patient on arrival to CVICU. Patient is currently on BiPAP (transported on BiPAP) severely encephalopathic hardly wakes up to sternal rub, with a rapid shallow breathing. BiPAP settings 18/8, 60% FiO2. He is literally unresponsive and not protecting airway. Currently he is on Levophed at 20 mcg/min with a map 65-70. He is also on amiodarone for atrial fibrillation with RVR. Because of lack of airway protection, severe encephalopathy, septic shock and hypoxia I proceeded with endotracheal intubation. His glottic opening was completely occluded with thick secretions, several minutes of suctioning needed to clear the secretions prior to intubation. Postintubation Levophed had to be increased to 30 mcg/min, I also placed an arterial line. All cultures, routine labs and lactic acid pending at this time. I have started him on vancomycin and Zosyn. Discussed case with Dr. Umana extensively Patient was unable to provide any history, according to the RN who got report patient apparently had GI bleed, underwent EGD with cauterization of duodenal ulcer few days ago. Will avoid heparin for DVT prophylaxis. His postintubation ABG showed severe hypoxia with significant AA gradient, metabolic acidosis, and a hemoglobin of 7.6. Currently Levophed is increased to 30 mcg/min, I will transfuse 1 unit PRBC. Chest x-ray shows pulmonary edema will arrange for hemodialysis once his shock is improves. At this time he will not be able to tolerate either hemodialysis or even CVVH Subjective: 05/28: initially evaluated around 6:30am. patient in refractory septic shock. added epinephrine to levophed and vasopressin. discussed with Dr. Umana. obtained u/s of the right upper extremity which demonstrated fluid collection surrounding the HeRO graft which was heterogenous in nature. added single dose of Amikacin to vanc/zosyn regimen to cover ESBL organisms. patient remains in shock. per verbal report from OSH, blood cultures growing MRSA. taken to OR urgently and large amount of purulent drainage debrided from around catheter. HeRO catheter removed. returns from OR persistently unstable. acidosis worsening. bicarb given. discussed with nephrology and will need CRRT. 05/29: s/p emergent debridement and removal of HeRO graft. today vasopressor doses are somewhat lower, although remains on levo,vaso,epi. lactate cleared. s/ p IHD today with 3L removal. blood growing MRSA. sputum growing e.coli, providencia, MRSA. wbc remains elevated. 05/30: off vasopressors. getting IHD again today. hgb 7 and receiving 1 unit prbc during dialysis. encephalopathy persists, not following commands. 05/31: clinically continues to improve. not following commands, very slow to arouse. bradycardic this AM, but tolerating hemodynamically. HD yesterday with volume removal. 06/01: Clinically improved off all pressors. Sedated with propofol and fentanyl , opens eyes moves extremities not following commands. Plan for hemodialysis today. Initiate CPAP trial after hemodialysis. Persistently bacteremic with MRSA, repeat cultures in 24 hours 06/02: Remains in septic shock, though pressor requirement has improved. Hypotensive bradycardic while getting HD yesterday, started on Dopamine, now at 3 mcg/kg/min. Pus being expressed from upper part of right upper chest [id number] (HeRO AVG removal site). Hypothermic. Some pus around the suprapubic catheter 06/03: Patient had been weaned off all pressors now. Not requiring dopamine for the last 18 hours. However WBC count 13 K today. Persistent bacteremia with MRSA. Source could be right upper extremity graft remnant versus infected invasive catheters. After hemodialysis removal HD catheter, also remove left IJ central line. Repeat blood cultures in 24 hours. Antibiotics broadened by ID yesterday 06/04: Showing some clinical signs of improvement. Not requiring pressors hypothermia has resolved. CBC still pending patient is more awake following commands tolerating CPAP now. Left IJ central line and right femoral Vas-Cath was removed yesterday. Plan for next dialysis is tomorrow will place new Vas- Cath tomorrow a.m. to give 'line holiday' Objective Vital Signs / I&O: Vital Signs 06/03/18 07:45 06/03/18 11:00 06/03/18 12:54 Temperature 96.6 F L Pulse Rate 100 H Respiratory Rate 16 18 16 Blood Pressure 117/70 Pulse Oximetry 97 98 06/03/18 13:38 06/03/18 13:52 06/03/18 17:55 Temperature 97.3 F L Pulse Rate 89 Respiratory Rate 10 L 20 26 H Blood Pressure 120/56 L Pulse Oximetry 95 98 96 06/03/18 19:00 06/03/18 21:25 06/03/18 22:17 Temperature 99.1 F Pulse Rate 96 H 96 H Respiratory Rate 24 16 17 Blood Pressure 86/51 L Pulse Oximetry 97 06/03/18 22:24 06/03/18 23:00 06/04/18 00:35 Temperature 98.9 F Pulse Rate 97 H Respiratory Rate 17 16 16 Blood Pressure 104/53 L Pulse Oximetry 97 95 97 06/04/18 03:00 06/04/18 04:55 06/04/18 04:57 Temperature 99 F Pulse Rate 97 H 95 H Respiratory Rate 22 17 17 Blood Pressure 112/54 L Pulse Oximetry 96 98 Intake & Output 06/03/18 06/04/18 06/04/18 18:59 06:59 18:59 Intake Total 1330 / 1330 475 / 475 Output Total 5000 / 5000 250 / 250 Balance -3670 / -3670 225 / 225 Weight 134 kg Intake: IV 900 / 900 DOPamine 800 MG/500 ML Premix 400 / 400 800 mg In 500 ml @ 5 MCG/KG/MIN 27.506 mls/hr IV.CONT TITRATE PRN Rx#:[id number] Diprivan 1000 mg/100 ml Inj 1, 50 / 50 000 mg In 100 ml @ 5 MCG/KG/MIN 3.87 mls/hr IV.CONT TITRATE PRN Rx#:[id number] Flexbumin 25% Inj 100 ML @ 60 100 / 100 mls/hr IV.SIG WITH DIALYSIS PRN Rx#:[id number] Merrem Inj 1,000 MG In NS Inj 100 / 100 100 ML @ 200 mls/hr IV.SIG Q24H TRACIE Rx#:[id number] Mycamine Inj 150 MG In NS Inj 0 / 0 100 ML @ 100 mls/hr IV.SIG Q24H TRACIE Rx#:[id number] Vancomycin Inj 1,000 MG In NS 250 / 250 Inj 250 ML @ 250 mls/hr IV.SIG WITH DIALYSIS TRACIE Rx#:[id number] Oral 0 / 0 Tube Feeding 320 / 320 415 / 415 Tube Irrigant 60 / 60 60 / 60 Other 50 / 50 Output: Hemodialysis Amount 5000 / 5000 Urine Amount (Catheter) 0 / 0 Suprapubic 0 / 0 Gastric Drainage 50 / 50 Orogastric Tube 50 / 50 Wound Drainage 200 / 200 Right Upper Shoulder 200 / 200 Other: Date of Last Bowel Movement 06/04/18 # Bowel Movements 1 # Incontinent Bowel Movements 1 Result Diagrams: 06/03/18 05:00 06/03/18 05:00 Objective Remarks: GENERAL: 73-year-old obese -Swazi male, lying in bed, intubated, off sedation HEENT: Normocephalic. Atraumatic. Pupils equal, round, reactive. NECK: Trachea is midline. There is no JVD. CHEST: PRVC. equal chest rise. Air entry decreased with few coarse rhonchi bilaterally CARDIOVASCULAR: Atrial fibrillation rate controlled. No murmurs. ABDOMEN: Soft, nontender, nondistended. No guarding. Supra pubic catheter in place MUSCULOSKELETAL: Right upper extremity s/p debridement upper incision W/D dressing. Right groin catheter site appears CDI, LIJ site clean. Pulses 2+. No peripheral edema. NEUROLOGICAL: Opens eyes spontaneously off sedation. Follows commands 4. No focal deficits Assessment and Plan - Problem List (1) Septic shock Code(s): A41.9 - Sepsis, unspecified organism; R65.21 - Severe sepsis with septic shock Status: Acute (2) Acute hypoxemic respiratory failure Code(s): J96.01 - Acute respiratory failure with hypoxia Status: Acute (3) Acute metabolic encephalopathy Code(s): G93.41 - Metabolic encephalopathy Status: Acute (4) Arteriovenous graft infection Code(s): T82.7XXA - Infection and inflammatory reaction due to other cardiac and vascular devices, implants and grafts, initial encounter Status: Acute (5) Atrial fibrillation with RVR Code(s): I48.91 - Unspecified atrial fibrillation Status: Acute (6) Pulmonary edema Code(s): J81.1 - Chronic pulmonary edema Status: Acute - Assessment and Plan Plan: Assessment: 73yM with ESRD and now HeRO graft infection, with MRSA and septic shock. Additional comorbid HCAP MRSA pneumonia from OSH. continue supportive care. continue daily sedation vacations. continue to increase enteral tube feeds. Remains in septic shock requiring Dopamine NEURO: Acute metabolic encephalopathy -All sedation discontinued, patient's mentation is improved -Altered mentation secondary to toxic metabolic encephalopathy from sepsis and hypercapnia RESP: Acute hypoxemic and hypercarbic respiratory failure Pulmonary edema HCAP with MRSA- present on admission -PRVC/AC. Ventilator bundle. DuoNeb every 6 hours scheduled and as needed -Continue abx. daily SAT/SBT: Possible extubation today -MRSA pneumonia treatment below CV: Septic shock-resolved Acute severe anion gap Metabolic acidosis- resolved Pulmonary edema-resolving Atrial fibrillation with RVR - Currently weaned off all pressors >48 hours - Dcd stress dose steroids 06/03/2018 - HD daily for volume removal and electrolyte/acid-base abnormalities - A. fib rate is controlled, cannot anticoagulate due to history of recent GI bleed GI/HEME: Recent GI bleed Anemia requiring transfusion - Nepro tube feeds - nutrition consult for TF recs - IV Protonix : End-stage renal disease on hemodialysis HeRO graft placed 09/2017, now removed due to graft infection - Nephrology: Dr. Davidson following - continue HD per nephrology, next planned dialysis session Friday - D/W Dr. davidson, remove suprapubic catheter -Will need new Vas-Cath placed Friday ID: Septic shock- resolved HeRO graft infection s/p removal HCAP pneumonia- present on admission Persistent MRSA bacteremia -Persistent MRSA bacteremia could be secondary to infected remnant of the AV graft, versus secondary seeding of the catheters -Removed Vas-Cath, and left IJ central line 06/03/18 - ID Dr. Morgan, abx management per ID - Dr. Umana following - 05/27, 05/28, 05/30, 06/01 blood cultures MRSA - 05/27 sputum cultures: providencia, MRSA, e.coli - cont vancomycin: keep trough 15-20 cont rifampin - Continue meropenem, gentamicin and micafungin - will need 6 weeks coverage for MRSA graft infection ENDO: Type 2 diabetes Presumed Adrenal insufficiency -Sliding scale insulin -hydrocortisone discontinued 06/03 PROPH: -Bilateral lower extremity SCDs. Sq Heparin. IV Protonix 40 mg every 12 LINES: -Removed OSH left IJ central line and OSH right femoral Vas-Cath on 06/03/2018 -Need new Vas-Cath placement 06/05/18 prior to dialysis -left radial arterial line 05/27: Level 3
--- NOTE | 2018-06-04 07:40 | P.PNVS ---
Subjective Post Op Day #: 7 Procedure: Excision of arm and neck grafts, grossly infected Subjective/Hospital Course: off pressors VAN, following commands some weaning vent TF held in anticipation of extubation cultures from wound showed yeast in addition to MRSA - on appropriate antifungals Objective Neuro: sedated (weaning) and VAN; responds appropriately but still somnolent Pulmonary: vent wean - on CPAP at present Cardiac: reg rate, tachy yest with vent wean bp ok FEN/GI: narciso TF until held for extubation HD yesterday and reportedly 5L off yesterday ID Antibiotics (date/duration): MRSA and yeast in wound MRSA in blood MRSA, E coli in sputum All being treated Vascular: wound clean getting packed Laboratory Results - last 24 hr 06/03/18 06/03/18 06/03/18 08:44 12:01 15:27 POC Glucose 170 H 157 H 161 H 06/03/18 06/04/18 06/04/18 20:18 01:25 05:58 POC Glucose 215 H 291 H 207 H Microbiology 06/02/18 09:00 Gram Stain - Final Wound - Incision Wound Culture - Preliminary Arlet albicans 06/01/18 14:23 Aerobic Blood Culture - Final Blood - Peripheral S. aureus MRSA Anaerobic Blood Culture - Preliminary No growth in 2 days 06/01/18 17:06 Gram Stain - Final Sputum - Endotracheal Sputum Culture - Final S. aureus MRSA 06/01/18 14:29 Aerobic Blood Culture - Preliminary Blood - Peripheral gram positive cocci Anaerobic Blood Culture - Preliminary No growth in 2 days 05/30/18 14:45 Aerobic Blood Culture - Final Blood - Peripheral S. aureus MRSA Anaerobic Blood Culture - Preliminary No growth in 4 days 05/30/18 14:35 Aerobic Blood Culture - Final Blood - Peripheral S. aureus MRSA Anaerobic Blood Culture - Preliminary No growth in 4 days Impressions Chest X-Ray 06/03/18 00:00 CONCLUSION: Improved aeration of both lungs with persistent consolidation and probable effusion on the left. Chest X-Ray 06/04/18 06:00 CONCLUSION: No significant change. Assessment and Plan - Assessment (1) Septic shock Code(s): A41.9 - Sepsis, unspecified organism; R65.21 - Severe sepsis with septic shock Status: Acute (2) Arteriovenous graft infection Code(s): T82.7XXA - Infection and inflammatory reaction due to other cardiac and vascular devices, implants and grafts, initial encounter Status: Acute - Plan POD#7 s/p excision of R neck and arm graft off pressors and VAN; weaning vent and possible extubation today 1. Continue vent wean and work towards extubation 2. continue to lighten sedation 3. adv TF after extubation 4. W to D neck wound 5. replace temporary vascath when next HD needed 6. ultimately if bacteremia persists, will remove defunctionalized remnant graft from R UE
[2018-06-04 08:40] LABS: Hematocrit 29.1 % (39.0-51.0); Hemoglobin 9.6 gm/dL (13.0-17.0); Mean Corpuscular HGB Conc 32.9 % (32.0-36.0); Mean Corpuscular Hemoglobin 28.9 pg (27.0-34.0); Mean Platelet Volume 8.3 fL (7.0-11.0); Platelet Count 108 th/mm3 (150-450); Red Cell Distribution Width 18.3 % (11.6-17.2); White Blood Count 15.8 th/mm3 (4.0-11.0)
[2018-06-04] MEDS: Heparin - SQ 10,000 UNITS/ML Vial SQ SCH ×2 (08:53→20:39)
[2018-06-04] MEDS ORDERED: Etomidate Inj 20 MG/10 ML Ampul IV.PUSH ONE ×2 (09:08→09:53)
[2018-06-04] MEDS ORDERED: Midazolam Inj 5 MG/ML 1 ML Vial ONE ×2 (09:09→13:05)
[2018-06-04 09:18] LABS: Albumin 3.6 g/dL (3.4-5.0); Anion Gap 11 meq/L (5-15); Aspartate Aminotransferase 9 U/L (15-37); Blood Urea Nitrogen 49 mg/dL (7-18); Calcium 9.9 mg/dL (8.5-10.1); Carbon Dioxide 28.7 meq/L (21.0-32.0); Chloride 103 meq/L (98-107); Glomerular Filtration Rate 13 mL/min (>89); Potassium 3.5 meq/L (3.5-5.1); Sodium 143 meq/L (136-145)
--- NOTE | 2018-06-04 09:23 | P.PCN ---
Date of procedure: 06/04/18 Pre-op diagnosis: Acute hypoxemic respiratory failure Post-op diagnosis: same Procedure: Endotracheal intubation Patient hypoxemic with increased work of breathing on BiPAP 15/5. Rapid sequence intubation was initiated. Patient was appropriately positioned and was administered etomidate 20 mg IV, Versed 5 mg IV, rocuronium 50 mg IV. I entered the oropharynx with direct laryngoscopy MAC 4 blade and obtained a grade 1 view. Patient was intubated with an 8.0 ET tube on single attempt. ET tube placement confirmed by directly visualizing the tube passing through the vocal cords, air entry equal bilaterally and, end-tidal CO2 color change. Patient tolerated procedure well. Postprocedure chest x-ray is pending at this time Anesthesia: GAYATRI Surgeon: Corey Ortega Estimated blood loss (mL): 0 Pathology: none sent Condition: critical Disposition: ICU
[2018-06-04 09:27] LABS: Alanine Aminotransferase 14 U/L (12-78); Alkaline Phosphatase 122 U/L (45-117); Glucose,Random 203 mg/dL (74-106); Magnesium 2.3 mg/dL (1.5-2.5); Phosphorus 5.9 mg/dL (2.5-4.9); Total Protein 8.3 g/dL (6.4-8.2)
[2018-06-04] MEDS: Propofol 1000 mg/100 ml Inj 1,000 MG/100 ML BOTTLE IV.CONT PRN (10:07)
--- NOTE | 2018-06-04 10:27 | P.PNID ---
Subjective Remarks: anais Umana: removal of the AV graft was partial due to pt's hemodynamica instability thru the surgery blood clx from 06/01 growing MRSA 2/ Vascath was removed yday Has just PIVs now off pressors Pt was extubated and then briefly reintubated this am temps are better Antibiotics: vanco meropenem fluconazole micafungin rifampin gentamycin Allergies/Adverse Reactions: Allergies No Known Allergies Allergy (Unknown, Uncoded 12/24/17 14:57) Objective Vital Signs 06/03/18 11:00 06/03/18 12:54 06/03/18 13:38 Temperature 96.6 F L Pulse Rate 100 H Respiratory Rate 18 16 10 L Blood Pressure 117/70 Pulse Oximetry 98 95 06/03/18 13:52 06/03/18 17:55 06/03/18 19:00 Temperature 97.3 F L 99.1 F Pulse Rate 89 96 H Respiratory Rate 20 26 H 24 Blood Pressure 120/56 L 86/51 L Pulse Oximetry 98 96 97 06/03/18 21:25 06/03/18 22:17 06/03/18 22:24 Temperature Pulse Rate 96 H Respiratory Rate 16 17 17 Blood Pressure Pulse Oximetry 97 06/03/18 23:00 06/04/18 00:35 06/04/18 03:00 Temperature 98.9 F 99 F Pulse Rate 97 H 97 H Respiratory Rate 16 16 22 Blood Pressure 104/53 L 112/54 L Pulse Oximetry 95 97 96 06/04/18 04:55 06/04/18 04:57 06/04/18 07:43 Temperature 98.7 F Pulse Rate 95 H 103 H Respiratory Rate 17 17 12 Blood Pressure 129/54 L Pulse Oximetry 98 95 06/04/18 08:16 06/04/18 09:34 Temperature Pulse Rate Respiratory Rate 16 Blood Pressure Pulse Oximetry 97 95 Intake & Output 06/03/18 06/04/18 06/04/18 18:59 06:59 18:59 Intake Total 1330 / 1330 575 / 575 300 / 300 Output Total 5000 / 5000 250 / 250 Balance -3670 / -3670 325 / 325 300 / 300 Weight 134 kg Intake: IV 900 / 900 100 / 100 300 / 300 DOPamine 800 MG/500 ML Premix 400 / 400 800 mg In 500 ml @ 5 MCG/KG/MIN 27.506 mls/hr IV.CONT TITRATE PRN Rx#:[id number] Diprivan 1000 mg/100 ml Inj 1, 50 / 50 000 mg In 100 ml @ 5 MCG/KG/MIN 3.87 mls/hr IV.CONT TITRATE PRN Rx#:[id number] Flexbumin 25% Inj 100 ML @ 60 100 / 100 100 / 100 mls/hr IV.SIG Q12H TRACIE Rx#: [id number] Diflucan 200 mg Premix Bag 100 100 / 100 ML @ 100 mls/hr IV.SIG Q24H TRACIE Rx#:[id number] Merrem Inj 1,000 MG In NS Inj 100 / 100 100 ML @ 200 mls/hr IV.SIG Q24H TRACIE Rx#:[id number] Mycamine Inj 150 MG In NS Inj 0 / 0 100 / 100 100 ML @ 100 mls/hr IV.SIG Q24H TRACIE Rx#:[id number] NS Inj 100 ML @ As Directed IV. 100 / 100 SIG Q2H TRACIE Rx#:[id number] Vancomycin Inj 1,000 MG In NS 250 / 250 Inj 250 ML @ 250 mls/hr IV.SIG WITH DIALYSIS TRACIE Rx#:[id number] Oral 0 / 0 Tube Feeding 320 / 320 415 / 415 Tube Irrigant 60 / 60 60 / 60 Other 50 / 50 Output: Hemodialysis Amount 5000 / 5000 Urine Amount (Catheter) 0 / 0 Suprapubic 0 / 0 Gastric Drainage 50 / 50 Orogastric Tube 50 / 50 Wound Drainage 200 / 200 Right Upper Shoulder 200 / 200 Other: Date of Last Bowel Movement 06/04/18 06/03/18 # Bowel Movements 1 # Incontinent Bowel Movements 1 06/01/18 14:29 Blood - Peripheral Aerobic Blood Culture - Final S. aureus MRSA 06/01/18 14:29 Blood - Peripheral Anaerobic Blood Culture - Preliminary No growth in 2 days 06/04/18 08:25 Blood - Peripheral Aerobic Blood Culture - Pending 06/04/18 08:25 Blood - Peripheral Anaerobic Blood Culture - Pending 06/04/18 08:20 Blood - Peripheral Aerobic Blood Culture - Pending 06/04/18 08:20 Blood - Peripheral Anaerobic Blood Culture - Pending 06/02/18 09:00 Wound - Incision Gram Stain - Final 06/02/18 09:00 Wound - Incision Wound Culture - Preliminary Arlet albicans 06/01/18 14:23 Blood - Peripheral Aerobic Blood Culture - Final S. aureus MRSA 06/01/18 14:23 Blood - Peripheral Anaerobic Blood Culture - Preliminary No growth in 2 days 06/01/18 17:06 Sputum - Endotracheal Gram Stain - Final 06/01/18 17:06 Sputum - Endotracheal Sputum Culture - Final S. aureus MRSA 05/30/18 14:45 Blood - Peripheral Aerobic Blood Culture - Final S. aureus MRSA 05/30/18 14:45 Blood - Peripheral Anaerobic Blood Culture - Preliminary No growth in 4 days 05/30/18 14:35 Blood - Peripheral Aerobic Blood Culture - Final S. aureus MRSA 05/30/18 14:35 Blood - Peripheral Anaerobic Blood Culture - Preliminary No growth in 4 days 05/28/18 00:48 Blood - Peripheral Aerobic Blood Culture - Final S. aureus MRSA 05/28/18 00:48 Blood - Peripheral Anaerobic Blood Culture - Final No growth in 5 days 05/27/18 22:40 Blood - Peripheral Aerobic Blood Culture - Final S. aureus MRSA 05/27/18 22:40 Blood - Peripheral Anaerobic Blood Culture - Final No growth in 5 days Lab - Hematology Results 06/03/18 06/04/18 05:00 08:20 WBC 13.2 H 15.8 H RBC 3.43 L 3.30 L Hgb 10.0 L 9.6 L Hct 29.7 L 29.1 L MCV 86.7 88.0 MCH 29.2 28.9 MCHC 33.6 32.9 RDW 17.6 H 18.3 H Plt Count 137 L 108 L MPV 9.7 8.3 Lab - Chemistry Results 06/02/18 06/02/18 06/02/18 11:13 16:20 20:40 Sodium Potassium Chloride Carbon Dioxide Anion Gap BUN Creatinine Estimated GFR POC Glucose 107 223 H 252 H Random Glucose Calcium Phosphorus Magnesium Total Bilirubin AST ALT Alkaline Phosphatase Total Protein Albumin 06/03/18 06/03/18 06/03/18 00:38 04:53 05:00 Sodium 143 Potassium 3.8 Chloride 103 Carbon Dioxide 27.6 Anion Gap 12 BUN 50 H Creatinine 5.00 H Estimated GFR 14 L POC Glucose 191 H 239 H Random Glucose 256 H Calcium 9.0 Phosphorus 5.5 H Magnesium 2.4 Total Bilirubin 0.8 AST 11 L ALT 16 Alkaline Phosphatase 122 H Total Protein 7.6 Albumin 3.2 L 06/03/18 06/03/18 06/03/18 08:44 12:01 15:27 Sodium Potassium Chloride Carbon Dioxide Anion Gap BUN Creatinine Estimated GFR POC Glucose 170 H 157 H 161 H Random Glucose Calcium Phosphorus Magnesium Total Bilirubin AST ALT Alkaline Phosphatase Total Protein Albumin 06/03/18 06/04/18 06/04/18 20:18 01:25 05:58 Sodium Potassium Chloride Carbon Dioxide Anion Gap BUN Creatinine Estimated GFR POC Glucose 215 H 291 H 207 H Random Glucose Calcium Phosphorus Magnesium Total Bilirubin AST ALT Alkaline Phosphatase Total Protein Albumin 06/04/18 06/04/18 08:20 08:23 Sodium 143 Potassium 3.5 Chloride 103 Carbon Dioxide 28.7 Anion Gap 11 BUN 49 H Creatinine 5.39 H Estimated GFR 13 L POC Glucose 199 H Random Glucose 203 H Calcium 9.9 D Phosphorus 5.9 H Magnesium 2.3 Total Bilirubin 0.5 AST 9 L ALT 14 Alkaline Phosphatase 122 H Total Protein 8.3 H D Albumin 3.6 Imaging: ITS Impressions Upper Extremity Ultrasound 05/28/18 00:00 CONCLUSION: 1. Right upper extremity AV (Hero) graft/catheter. 2. Small amount of nonocclusive thrombus in the proximal graft just beyond the radial artery anastomosis to the mid upper extremity level. 3. Complex perigraft fluid most prominently near the shoulder and chest wall measuring up to 3.5 x 1.8 cm. This most likely reflects perigraft hematoma although abscess cannot be excluded in the appropriate clinical setting. Abdomen X-Ray 05/31/18 00:00 CONCLUSION: 1. Suction-type NGT in the stomach. Chest X-Ray 06/04/18 06:00 CONCLUSION: No significant change. Physical Exam: GENERAL: NAD sedated. Just post re-intubaion intubated on vent warming blanklet in place SKIN: Warm and dry. No rash HEAD: Atraumatic. Normocephalic. EYES: Pupils equal and round. No scleral icterus. No injection or drainage. ENT: No nasal bleeding or discharge. Mucous membranes pink and moist. NECK: Trachea midline. No JVD. CARDIOVASCULAR: Regular rate and rhythm. Chest incision is open and packed, minim,al serosang drainage on the packing RESPIRATORY: No accessory muscle use. Rhonchi to auscultation. Breath sounds equal bilaterally. GASTROINTESTINAL: Abdomen soft, non-tender, nondistended. Hepatic and splenic margins not palpable. MUSCULOSKELETAL: Extremities without clubbing, cyanosis, +edema. RUE with well approximated incision, less swollen today no erythema edema : SP cath removed NEUROLOGICAL: sedated PSYCHIATRIC: unable to assess Assessment and Plan - Plan MRSA sepsis: persistent bacteremia- wilmer 2/2 retained infected graft - sustained bacteremia: 2 cultures by 6 days Indwelling prosthetic vascular device (complex AV graft extending to R atrium ) Infected PD vascuklar synthetic graft: abscess vs infected hematoma - sp partial removal Cultures growing C.albicans along with MRSA Sepsis, septic shock; clincially resolving ESRD, on HD Acute VDRF; sp reintubation PNA, GNBs. Both isolates S to CFTX Hypothermia - better Hypothension - resolved Clearly another septic episode: persistent graft infx vs new infection pt remains critical and unstable cont vancomycin: keep trough 15-20 cont rifampin cont meropenem for now cont gentamicinn for now dc micafungin cont fluconazol fu repeat BC rechk sputum clx dw RN anais Ortega
--- NOTE | 2018-06-04 10:33 | XR ---
EXAM DATE: 06/04/2018 10:26 AM EDT AGE/SEX: 73 years / Male INDICATIONS: Re-intubation. CLINICAL DATA: This is the patient's subsequent encounter. Patient reports that signs and symptoms h ave been present for 1 week and indicates a pain score of Nonresponsive. MEDICAL/SURGICAL HISTORY: . Diabetes. Hypertension. End stage renal disease, on dialysis. . M ultiple A/V dialysis graft revisions. COMPARISON: C, CHEST 1V SINGLE AP, 06/04/2018. . FINDINGS: There is an endotracheal tube in place. The tip appears to be approximately 1 cm above the kimber[place]. Th ere is no evidence of pneumothorax. The previously noted NG tube has been removed. The right lung rem ains clear and well aerated. There is a small stable left-sided effusion with some mild parenchymal c hanges in the left lower lung. Otherwise, no other new or significant changes are demonstrated compar ed to the prior study. The heart size is stable. The bony structures are stable. CONCLUSION: 1. The endotracheal tube appears to be in good position. 2. No evidence of pneumothorax. 3. Stable left-sided pleural effusion with some mild parenchymal changes in the left lung base. Electronically signed by: Gonzalez Hinds MD 06/04/2018 10:32 AM EDT
--- NOTE | 2018-06-04 13:51 | P.PCN ---
Date of procedure: 06/04/18 Pre-op diagnosis: Need for HD access Post-op diagnosis: same Procedure: Left femoral vascath placement US guided central line Central line checklist completed, timeout completed. I wore a surgical cap, mask with protective eyewear, full gown and sterile gloves throughout the procedure. Left femoral region was prepped using chlorhexidine scrub and draped in sterile fashion. The left femoral vein was identified using the ultrasound. Anesthesia was achieved over the vein using 1% lidocaine. The introducer needle was inserted into the left femoral vein under direct ultrasound visualization. Venous blood was withdrawn. The syringe was removed and a guidewire was advanced into the introducer needle. A small incision was made at the skin surface with a scalpel and the introducer needle was exchanged for a dilator over the guidewire. After appropriate dilation was obtained, the dilator was exchanged over the wire for a triple lumen, 7F, antibiotic coated central venous catheter. The wire was removed and the catheter was sutured in place at 18 cm. A sterile central line dressing was placed over the catheter at the insertion site. The patient tolerated the procedure without any hemodynamic compromise. At time of procedure completion, all ports aspirated and flushed properly. Anesthesia: local Surgeon: Corey Ortega Estimated blood loss (mL): 2 Pathology: none sent Condition: critical Disposition: ICU
[2018-06-04] MEDS ORDERED: Heparin 2,000 UNITS/2 ML Vial (for IV use) IV.FLUSH PRN (13:52)
--- NOTE | 2018-06-04 17:43 | P.PNNP ---
Subjective Interval history: This Vas-Cath was removed to left side Physical Exam Vital signs: Vital Signs 06/03/18 17:55 06/03/18 19:00 06/03/18 21:25 Temperature 99.1 F Pulse Rate 96 H Respiratory Rate 26 H 24 16 Blood Pressure 86/51 L Pulse Oximetry 96 97 06/03/18 22:17 06/03/18 22:24 06/03/18 23:00 Temperature 98.9 F Pulse Rate 96 H 97 H Respiratory Rate 17 17 16 Blood Pressure 104/53 L Pulse Oximetry 97 95 06/04/18 00:35 06/04/18 03:00 06/04/18 04:55 Temperature 99 F Pulse Rate 97 H 95 H Respiratory Rate 16 22 17 Blood Pressure 112/54 L Pulse Oximetry 97 96 06/04/18 04:57 06/04/18 07:43 06/04/18 08:16 Temperature 98.7 F Pulse Rate 103 H Respiratory Rate 17 12 Blood Pressure 129/54 L Pulse Oximetry 98 95 97 06/04/18 09:34 06/04/18 10:39 06/04/18 10:40 Temperature 99.1 F Pulse Rate 96 H 103 H Respiratory Rate 16 16 Blood Pressure 131/50 L Pulse Oximetry 95 93 L 06/04/18 12:13 06/04/18 14:28 06/04/18 14:54 Temperature Pulse Rate 99 H Respiratory Rate 16 17 Blood Pressure Pulse Oximetry 95 95 06/04/18 14:56 06/04/18 14:59 06/04/18 16:35 Temperature 98.8 F Pulse Rate 99 H 99 H 97 H Respiratory Rate 17 19 Blood Pressure 97/75 L Pulse Oximetry 95 Intake & Output 06/03/18 06/04/18 06/04/18 18:59 06:59 18:59 Intake Total 1330 / 1330 575 / 575 500 / 500 Output Total 5000 / 5000 250 / 250 Balance -3670 / -3670 325 / 325 500 / 500 Weight 134 kg Intake: IV 900 / 900 100 / 100 500 / 500 DOPamine 800 MG/500 ML Premix 400 / 400 800 mg In 500 ml @ 5 MCG/KG/MIN 27.506 mls/hr IV.CONT TITRATE PRN Rx#:[id number] Diprivan 1000 mg/100 ml Inj 1, 50 / 50 000 mg In 100 ml @ 5 MCG/KG/MIN 3.87 mls/hr IV.CONT TITRATE PRN Rx#:[id number] Flexbumin 25% Inj 100 ML @ 60 100 / 100 200 / 200 mls/hr IV.SIG Q12H TRACIE Rx#: [id number] Diflucan 200 mg Premix Bag 100 100 / 100 ML @ 100 mls/hr IV.SIG Q24H TRACIE Rx#:[id number] Merrem Inj 1,000 MG In NS Inj 100 / 100 100 / 100 100 ML @ 200 mls/hr IV.SIG Q24H TRACIE Rx#:[id number] Mycamine Inj 150 MG In NS Inj 0 / 0 100 / 100 100 ML @ 100 mls/hr IV.SIG Q24H TRACIE Rx#:[id number] NS Inj 100 ML @ As Directed IV. 100 / 100 SIG Q2H TRACIE Rx#:[id number] Vancomycin Inj 1,000 MG In NS 250 / 250 Inj 250 ML @ 250 mls/hr IV.SIG WITH DIALYSIS TRACIE Rx#:[id number] Oral 0 / 0 Tube Feeding 320 / 320 415 / 415 Tube Irrigant 60 / 60 60 / 60 Other 50 / 50 Output: Hemodialysis Amount 5000 / 5000 Urine Amount (Catheter) 0 / 0 Suprapubic 0 / 0 Gastric Drainage 50 / 50 Orogastric Tube 50 / 50 Wound Drainage 200 / 200 Right Upper Shoulder 200 / 200 Other: Date of Last Bowel Movement 06/04/18 06/04/18 # Bowel Movements 1 # Incontinent Bowel Movements 1 - Constitutional no acute distress - Routine HEENT Exam Eye: Present: EOMI - Routine Respiratory Exam Present: CTA bilaterally - Routine Cardiovascular Exam Present: RRR - Routine Abdominal Exam Present: soft - Routine Extremities Exam Present: edema - Urinary Catheter Management Suprapubic Cath placed during this visit: no Assessment and Plan - Assessment (1) End stage renal disease on dialysis Code(s): N18.6 - End stage renal disease; Z99.2 - Dependence on renal dialysis Status: Acute (2) Acute hypoxemic respiratory failure Code(s): J96.01 - Acute respiratory failure with hypoxia Status: Acute (3) Arteriovenous graft infection Code(s): T82.7XXA - Infection and inflammatory reaction due to other cardiac and vascular devices, implants and grafts, initial encounter Status: Acute (4) Atrial fibrillation with RVR Code(s): I48.91 - Unspecified atrial fibrillation Status: Acute (5) Hemodialysis access, AV graft Code(s): Z99.2 - Dependence on renal dialysis Status: Acute - Plan Patient has sepsis and undergoing treatment with IV vancomycin and ceftriaxone He is not scheduled to do dialysis, Friday and Friday Open wound of the right superior aspect of his excisional wound right shoulder Next dialysis Fri
[2018-06-05] MEDS: Sodium Chlor 0.9% Inj 100 ML IV.SIG SCH ×10 (01:01→22:17)
[2018-06-05] MEDS: Insulin NovoLOG Aspart Correctional Sugar Inj SQ SCH ×6 (01:02→21:46)
[2018-06-05 05:43] LABS: Hematocrit 26.1 % (39.0-51.0); Hemoglobin 8.4 gm/dL (13.0-17.0); Mean Corpuscular HGB Conc 32.4 % (32.0-36.0); Mean Corpuscular Hemoglobin 28.8 pg (27.0-34.0); Mean Corpuscular Volume 88.8 fL (80.0-100.0); Platelet Count 213 th/mm3 (150-450); Red Blood Count 2.94 mil/mm3 (4.50-5.90); White Blood Count 14.5 th/mm3 (4.0-11.0)
[2018-06-05 06:12] LABS: Alanine Aminotransferase 12 U/L (12-78); Albumin 3.5 g/dL (3.4-5.0); Anion Gap 21 meq/L (5-15); Aspartate Aminotransferase 6 U/L (15-37); Blood Urea Nitrogen 67 mg/dL (7-18); Calcium 9.6 mg/dL (8.5-10.1); Carbon Dioxide 20.1 meq/L (21.0-32.0); Chloride 102 meq/L (98-107); Glomerular Filtration Rate 10 mL/min (>89); Glucose,Random 247 mg/dL (74-106); Magnesium 2.4 mg/dL (1.5-2.5); Sodium 143 meq/L (136-145)
[2018-06-05 06:17] LABS: Alkaline Phosphatase 69 U/L (45-117); Gentamicin,Random 5.6 mcg/mL
[2018-06-05] MEDS: Propofol 1000 mg/100 ml Inj 1,000 MG/100 ML BOTTLE IV.CONT PRN ×4 (08:05→21:48)
[2018-06-05] MEDS: Heparin 10,000 UNITS/10 ML Vial (for IV use) OTHER PRN (09:39)
[2018-06-05] MEDS: Albumin Human 25% Inj 100 ML IV.SIG PRN (09:40)
[2018-06-05] MEDS: Vancomycin Inj 1,000 MG in Sodium Chlor 0.9% Inj 250 ML IV.SIG SCH (10:39)
[2018-06-05] MEDS: Pantoprazole Inj 40 MG Vial IV.PUSH SCH ×2 (11:11→22:15)
[2018-06-05] MEDS: Albumin Human 25% Inj 100 ML IV.SIG SCH ×2 (11:11→22:16)
[2018-06-05] MEDS: Heparin - SQ 10,000 UNITS/ML Vial SQ SCH ×2 (11:12→21:47)
[2018-06-05] MEDS: Senna/Docusate Sodium 8.6/50 MG Tablet PO SCH ×2 (11:13→21:48)
--- NOTE | 2018-06-05 13:02 | P.PNVS ---
Subjective Post Op Day #: 8 Procedure: Excision of arm and neck grafts, grossly infected Subjective/Hospital Course: back on pressors failed extubation off sev L on HD tho most recent blood cx NGTD although prelim Objective Neuro: sedated but responds to voice Pulmonary: vent, good sats. PEEP 7, 50% FiO2 Cardiac: reg rate, norepi FEN/GI: TF ID Cultures: 06/04 blood NGTD Vascular: R neck incision looks great arm incision with expected mild drainage Laboratory Results - last 24 hr 06/04/18 06/04/18 06/04/18 14:00 16:12 21:02 WBC RBC Hgb Hct MCV MCH MCHC RDW Plt Count MPV Sodium Potassium Chloride Carbon Dioxide Anion Gap BUN Creatinine Estimated GFR POC Glucose 246 H 220 H Random Glucose Calcium Magnesium Total Bilirubin AST ALT Alkaline Phosphatase Total Protein Albumin St C. diff Tox Epid 027 Negative Random Gentamicin C. difficile (PCR) Negative 06/04/18 06/05/18 06/05/18 23:10 04:06 05:20 WBC 14.5 H RBC 2.94 L Hgb 8.4 L Hct 26.1 L MCV 88.8 MCH 28.8 MCHC 32.4 RDW 18.0 H Plt Count 213 D MPV 9.0 Sodium Potassium Chloride Carbon Dioxide Anion Gap BUN Creatinine Estimated GFR POC Glucose 184 H 219 H Random Glucose Calcium Magnesium Total Bilirubin AST ALT Alkaline Phosphatase Total Protein Albumin St C. diff Tox Epid 027 Random Gentamicin C. difficile (PCR) 06/05/18 06/05/18 06/05/18 05:20 07:44 11:16 WBC RBC Hgb Hct MCV MCH MCHC RDW Plt Count MPV Sodium 143 Potassium 4.0 Chloride 102 Carbon Dioxide 20.1 L Anion Gap 21 H BUN 67 H Creatinine 6.86 H Estimated GFR 10 L POC Glucose 247 H 118 H Random Glucose 247 H Calcium 9.6 Magnesium 2.4 Total Bilirubin 0.8 AST 6 L ALT 12 Alkaline Phosphatase 69 Total Protein 8.[address] C[address] diff Tox Epid 027 Random Gentamicin 5.6 C. difficile (PCR) Microbiology 06/04/18 08:25 Aerobic Blood Culture - Preliminary Blood - Peripheral No growth in 1 day Anaerobic Blood Culture - Preliminary No growth in 1 day 06/04/18 08:20 Aerobic Blood Culture - Preliminary Blood - Peripheral No growth in 1 day Anaerobic Blood Culture - Preliminary No growth in 1 day 06/01/18 14:23 Aerobic Blood Culture - Final Blood - Peripheral S. aureus MRSA Anaerobic Blood Culture - Preliminary No growth in 4 days 06/01/18 14:29 Aerobic Blood Culture - Final Blood - Peripheral S. aureus MRSA Anaerobic Blood Culture - Preliminary No growth in 4 days 05/28/18 14:40 Fungal Smear - Final Wound - Arm No fungal elements seen Fungal Culture - Preliminary No growth in 1 week 05/28/18 14:40 Acid Fast Bacilli Smear - Final Wound - Arm No acid fast bacilli seen Mycobacterial Culture - Preliminary No growth in 1 week 05/28/18 14:40 Fungal Smear - Final Other No fungal elements seen Fungal Culture - Preliminary No growth in 1 week 05/28/18 14:40 Acid Fast Bacilli Smear - Final Other No acid fast bacilli seen Mycobacterial Culture - Preliminary No growth in 1 week 05/30/18 14:45 Aerobic Blood Culture - Final Blood - Peripheral S. aureus MRSA Anaerobic Blood Culture - Final No growth in 5 days 05/30/18 14:35 Aerobic Blood Culture - Final Blood - Peripheral S. aureus MRSA Anaerobic Blood Culture - Final No growth in 5 days 06/02/18 09:00 Gram Stain - Final Wound - Incision Wound Culture - Final Arlet albicans Impressions Chest X-Ray 06/03/18 00:00 CONCLUSION: Improved aeration of both lungs with persistent consolidation and probable effusion on the left. Chest X-Ray 06/04/18 00:00 CONCLUSION: 1. The endotracheal tube appears to be in good position. 2. No evidence of pneumothorax. 3. Stable left-sided pleural effusion with some mild parenchymal changes in the left lung base. Chest X-Ray 06/04/18 06:00 CONCLUSION: No significant change. Assessment and Plan - Assessment (1) Septic shock Code(s): A41.9 - Sepsis, unspecified organism; R65.21 - Severe sepsis with septic shock Status: Acute (2) Arteriovenous graft infection Code(s): T82.7XXA - Infection and inflammatory reaction due to other cardiac and vascular devices, implants and grafts, initial encounter Status: Acute - Plan POD#8 s/p excision of R neck and arm graft back on pressors potentially related to volume off in HD 1. Continue vent wean and work towards extubation again 2. continue to lighten sedation 3. continue TF 4. Wean pressors, would favor gentle HD 5. W to D neck wound 6. ultimately if bacteremia persists, will remove defunctionalized remnant graft from R UE
--- NOTE | 2018-06-05 13:36 | P.PNNP ---
Subjective Interval history: He remains intubated Physical Exam Vital signs: Vital Signs 06/04/18 14:28 06/04/18 14:54 06/04/18 14:56 Temperature Pulse Rate 99 H 99 H Respiratory Rate 17 Blood Pressure Pulse Oximetry 95 06/04/18 14:59 06/04/18 16:20 06/04/18 16:35 Temperature 98.8 F Pulse Rate 99 H 97 H Respiratory Rate 17 16 19 Blood Pressure 97/75 L Pulse Oximetry 95 97 06/04/18 20:00 06/04/18 21:11 06/04/18 21:15 Temperature 98.8 F Pulse Rate 101 H 96 H Respiratory Rate 16 16 16 Blood Pressure 103/52 L Pulse Oximetry 94 L 96 06/05/18 00:00 06/05/18 00:30 06/05/18 03:40 Temperature 99.0 F Pulse Rate 84 Respiratory Rate 16 16 18 Blood Pressure 115/50 L Pulse Oximetry 97 96 95 06/05/18 04:00 06/05/18 07:00 06/05/18 08:33 Temperature 98.4 F 97.3 F L Pulse Rate 102 H 105 H 102 H Respiratory Rate 20 16 17 Blood Pressure 122/53 L 149/61 H Pulse Oximetry 94 L 98 06/05/18 11:00 06/05/18 11:22 Temperature 98 F Pulse Rate 87 Respiratory Rate 16 18 Blood Pressure 102/49 L Pulse Oximetry 98 98 Intake & Output 06/04/18 06/05/18 06/05/18 18:59 06:59 18:59 Intake Total 516 / 516 200 / 200 266 / 266 Output Total 3000 / 3000 Balance 516 / 516 200 / 200 -2734 / -2734 Weight 133.4 kg Intake: IV 516 / 516 200 / 200 266 / 266 Diprivan 1000 mg/100 ml Inj 1, 16 / 16 47 / 47 000 mg In 100 ml @ 5 MCG/KG/MIN 3.87 mls/hr IV.CONT TITRATE PRN Rx#:[id number] Flexbumin 25% Inj 100 ML @ 60 200 / 200 100 / 100 mls/hr IV.SIG Q12H TRACIE Rx#: [id number] Diflucan 200 mg Premix Bag 100 100 / 100 ML @ 100 mls/hr IV.SIG Q24H TRACIE Rx#:[id number] Merrem Inj 1,000 MG In NS Inj 100 / 100 100 ML @ 200 mls/hr IV.SIG Q24H TRACIE Rx#:[id number] Mycamine Inj 150 MG In NS Inj 100 / 100 100 ML @ 100 mls/hr IV.SIG Q24H TRACIE Rx#:[id number] Levophed-Dextrose 4 mg/250 ml 219 / 219 Drip 4 mg In 250 ml @ 2 MCG/MIN 7.5 mls/hr IV.SIG TITRATE PRN Rx#:[id number] NS Inj 100 ML @ As Directed IV. 100 / 100 SIG Q2H TRACIE Rx#:[id number] Oral 0 / 0 Output: Hemodialysis Amount 3000 / 3000 Other: Date of Last Bowel Movement 06/04/18 06/04/18 06/05/18 # Bowel Movements 1 1 - Constitutional no acute distress - Routine HEENT Exam Eye: Present: EOMI - Routine Neck Exam Present: supple - Routine Respiratory Exam Present: CTA bilaterally - Routine Cardiovascular Exam Present: RRR - Routine Abdominal Exam Present: soft, distended - Routine Extremities Exam Present: edema - Urinary Catheter Management Suprapubic Cath placed during this visit: no Assessment and Plan - Assessment (1) End stage renal disease on dialysis Code(s): N18.6 - End stage renal disease; Z99.2 - Dependence on renal dialysis Status: Acute (2) Acute hypoxemic respiratory failure Code(s): J96.01 - Acute respiratory failure with hypoxia Status: Acute (3) Arteriovenous graft infection Code(s): T82.7XXA - Infection and inflammatory reaction due to other cardiac and vascular devices, implants and grafts, initial encounter Status: Acute (4) Atrial fibrillation with RVR Code(s): I48.91 - Unspecified atrial fibrillation Status: Acute (5) Hemodialysis access, AV graft Code(s): Z99.2 - Dependence on renal dialysis Status: Acute - Plan Patient has sepsis and undergoing treatment with IV vancomycin He is scheduled to do dialysis, Friday and Friday Open wound of the right superior aspect of his excisional wound right shoulder Hemodialysis done 3 L removed continue to monitor
--- NOTE | 2018-06-05 17:23 | P.PNCC ---
Subjective Subjective Remarks/Hospital Course: Hospital Course: Mr. Laguerre is a 73-year-old -[place] male with past medical history significant for end-stage renal disease on hemodialysis, hypertension, complicated vascular access, HeRO graft placement by Dr. Umana on 09/23/2017, revision and PTFE replacement 12/25/17. who presented to the [facility] with probable sepsis and shock. Dr. Umana was contacted and patient was accepted for transfer to CVICU in [facility]. I immediately evaluated the patient on arrival to CVICU. Patient is currently on BiPAP (transported on BiPAP) severely encephalopathic hardly wakes up to sternal rub, with a rapid shallow breathing. BiPAP settings 18/8, 60% FiO2. He is literally unresponsive and not protecting airway. Currently he is on Levophed at 20 mcg/min with a map 65-70. He is also on amiodarone for atrial fibrillation with RVR. Because of lack of airway protection, severe encephalopathy, septic shock and hypoxia I proceeded with endotracheal intubation. His glottic opening was completely occluded with thick secretions, several minutes of suctioning needed to clear the secretions prior to intubation. Postintubation Levophed had to be increased to 30 mcg/min, I also placed an arterial line. All cultures, routine labs and lactic acid pending at this time. I have started him on vancomycin and Zosyn. Discussed case with Dr. Umana extensively Patient was unable to provide any history, according to the RN who got report patient apparently had GI bleed, underwent EGD with cauterization of duodenal ulcer few days ago. Will avoid heparin for DVT prophylaxis. His postintubation ABG showed severe hypoxia with significant AA gradient, metabolic acidosis, and a hemoglobin of 7.6. Currently Levophed is increased to 30 mcg/min, I will transfuse 1 unit PRBC. Chest x-ray shows pulmonary edema will arrange for hemodialysis once his shock is improves. At this time he will not be able to tolerate either hemodialysis or even CVVH Subjective: 05/28: initially evaluated around 6:30am. patient in refractory septic shock. added epinephrine to levophed and vasopressin. discussed with Dr. Umana. obtained u/s of the right upper extremity which demonstrated fluid collection surrounding the HeRO graft which was heterogenous in nature. added single dose of Amikacin to vanc/zosyn regimen to cover ESBL organisms. patient remains in shock. per verbal report from OSH, blood cultures growing MRSA. taken to OR urgently and large amount of purulent drainage debrided from around catheter. HeRO catheter removed. returns from OR persistently unstable. acidosis worsening. bicarb given. discussed with nephrology and will need CRRT. 05/29: s/p emergent debridement and removal of HeRO graft. today vasopressor doses are somewhat lower, although remains on levo,vaso,epi. lactate cleared. s/ p IHD today with 3L removal. blood growing MRSA. sputum growing e.coli, providencia, MRSA. wbc remains elevated. 05/30: off vasopressors. getting IHD again today. hgb 7 and receiving 1 unit prbc during dialysis. encephalopathy persists, not following commands. 05/31: clinically continues to improve. not following commands, very slow to arouse. bradycardic this AM, but tolerating hemodynamically. HD yesterday with volume removal. 06/01: Clinically improved off all pressors. Sedated with propofol and fentanyl , opens eyes moves extremities not following commands. Plan for hemodialysis today. Initiate CPAP trial after hemodialysis. Persistently bacteremic with MRSA, repeat cultures in 24 hours 06/02: Remains in septic shock, though pressor requirement has improved. Hypotensive bradycardic while getting HD yesterday, started on Dopamine, now at 3 mcg/kg/min. Pus being expressed from upper part of right upper chest [id number] (HeRO AVG removal site). Hypothermic. Some pus around the suprapubic catheter 06/03: Patient had been weaned off all pressors now. Not requiring dopamine for the last 18 hours. However WBC count 13 K today. Persistent bacteremia with MRSA. Source could be right upper extremity graft remnant versus infected invasive catheters. After hemodialysis removal HD catheter, also remove left IJ central line. Repeat blood cultures in 24 hours. Antibiotics broadened by ID yesterday 06/04: Showing some clinical signs of improvement. Not requiring pressors hypothermia has resolved. CBC still pending patient is more awake following commands tolerating CPAP now. Left IJ central line and right femoral Vas-Cath was removed yesterday. Plan for next dialysis is tomorrow will place new Vas- Cath tomorrow a.m. to give 'line holiday'. 06/05: Back on norepinephrine at 10 mics per minute. Blood blood pressure variable, intermittently hypotensive. New Vas-Cath placed in groin functional. Most recent cultures continued to grow gram-positive cocci. Alert when propofol is lightened. Objective Vital Signs / I&O: Vital Signs 06/04/18 20:00 06/04/18 21:11 06/04/18 21:15 Temperature 98.8 F Pulse Rate 101 H 96 H Respiratory Rate 16 16 16 Blood Pressure 103/52 L Pulse Oximetry 94 L 96 06/05/18 00:00 06/05/18 00:30 06/05/18 03:40 Temperature 99.0 F Pulse Rate 84 Respiratory Rate 16 16 18 Blood Pressure 115/50 L Pulse Oximetry 97 96 95 06/05/18 04:00 06/05/18 07:00 06/05/18 08:33 Temperature 98.4 F 97.3 F L Pulse Rate 102 H 105 H 102 H Respiratory Rate 20 16 17 Blood Pressure 122/53 L 149/61 H Pulse Oximetry 94 L 98 06/05/18 11:00 06/05/18 11:22 06/05/18 14:20 Temperature 98 F Pulse Rate 87 Respiratory Rate 16 18 16 Blood Pressure 102/49 L Pulse Oximetry 98 98 98 06/05/18 15:00 06/05/18 16:35 Temperature 98.7 F Pulse Rate 91 H 80 Respiratory Rate 16 16 Blood Pressure 118/49 L Pulse Oximetry 99 Intake & Output 06/04/18 06/05/18 06/05/18 18:59 06:59 18:59 Intake Total 516 / 516 200 / 200 681 / 681 Output Total 3000 / 3000 Balance 516 / 516 200 / 200 -2319 / -2319 Weight 133.4 kg Intake: IV 516 / 516 200 / 200 681 / 681 Diprivan 1000 mg/100 ml Inj 1, 16 / 16 209 / 209 000 mg In 100 ml @ 5 MCG/KG/MIN 3.87 mls/hr IV.CONT TITRATE PRN Rx#:[id number] Flexbumin 25% Inj 100 ML @ 60 200 / 200 100 / 100 mls/hr IV.SIG Q12H TRACIE Rx#: [id number] Diflucan 200 mg Premix Bag 100 100 / 100 ML @ 100 mls/hr IV.SIG Q24H TRACIE Rx#:[id number] Merrem Inj 1,000 MG In NS Inj 100 / 100 100 ML @ 200 mls/hr IV.SIG Q24H TRACIE Rx#:[id number] Mycamine Inj 150 MG In NS Inj 100 / 100 100 ML @ 100 mls/hr IV.SIG Q24H TRACIE Rx#:[id number] Levophed-Dextrose 4 mg/250 ml 472 / 472 Drip 4 mg In 250 ml @ 2 MCG/MIN 7.5 mls/hr IV.SIG TITRATE PRN Rx#:[id number] NS Inj 100 ML @ As Directed IV. 100 / 100 SIG Q2H TRACIE Rx#:[id number] Oral 0 / 0 Output: Hemodialysis Amount 3000 / 3000 Other: Date of Last Bowel Movement 06/04/18 06/04/18 06/05/18 # Bowel Movements 1 1 Result Diagrams: 06/05/18 05:20 06/05/18 05:20 Objective Remarks: GENERAL: 73-year-old obese -[place] male, lying in bed, intubated, light sedation HEENT: Normocephalic. Atraumatic. Pupils equal, round, reactive. NECK: Trachea is midline. Orotracheal intubation. CHEST: PRVC. equal chest rise. Air entry decreased with few coarse rhonchi bilaterally. Good bilateral air movement. CARDIOVASCULAR: Atrial fibrillation rate controlled. No murmurs. No JVD. ABDOMEN: Soft, nontender, nondistended. No guarding. Supra pubic catheter in place MUSCULOSKELETAL: Right upper extremity s/p debridement upper incision W/D dressing. Right groin catheter site appears CDI, LIJ site clean. Pulses 2+. No peripheral edema. New insertion site dry clean. NEUROLOGICAL: Opens eyes spontaneously off sedation. Follows commands 4 when light. No focal deficits Assessment and Plan - Problem List (1) Septic shock Code(s): A41.9 - Sepsis, unspecified organism; R65.21 - Severe sepsis with septic shock Status: Acute (2) Acute hypoxemic respiratory failure Code(s): J96.01 - Acute respiratory failure with hypoxia Status: Acute (3) Acute metabolic encephalopathy Code(s): G93.41 - Metabolic encephalopathy Status: Acute (4) Arteriovenous graft infection Code(s): T82.7XXA - Infection and inflammatory reaction due to other cardiac and vascular devices, implants and grafts, initial encounter Status: Acute (5) Atrial fibrillation with RVR Code(s): I48.91 - Unspecified atrial fibrillation Status: Acute (6) Pulmonary edema Code(s): J81.1 - Chronic pulmonary edema Status: Acute - Assessment and Plan Plan: Assessment: 73yM with ESRD and now HeRO graft infection, with MRSA and septic shock. Additional comorbid HCAP MRSA pneumonia from OSH. continue supportive care. continue daily sedation vacations. continue to increase enteral tube feeds. Continued apparent septic course requiring vasopressor support. NEURO: Acute metabolic encephalopathy -All sedation discontinued, patient's mentation is improved -Altered mentation secondary to toxic metabolic encephalopathy from sepsis and hypercapnia RESP: Acute hypoxemic and hypercarbic respiratory failure Pulmonary edema HCAP with MRSA- present on admission -PRVC/AC. Ventilator bundle. DuoNeb every 6 hours scheduled and as needed -Continue abx. daily SAT/SBT: Possible extubation today -MRSA pneumonia treatment below CV: Septic shock-resolved Acute severe anion gap Metabolic acidosis- resolved Pulmonary edema-resolving Atrial fibrillation with RVR - Currently weaned off all pressors >48 hours - Dcd stress dose steroids 06/03/2018 - HD daily for volume removal and electrolyte/acid-base abnormalities - A. fib rate is controlled, cannot anticoagulate due to history of recent GI bleed GI/HEME: Recent GI bleed Anemia requiring transfusion - Nepro tube feeds - nutrition consult for TF recs - IV Protonix : End-stage renal disease on hemodialysis HeRO graft placed 09/2017, now removed due to graft infection - Nephrology: Dr. Davidson following - continue HD per nephrology, next planned dialysis session Friday - D/W Dr. davidson, remove suprapubic catheter -New Vas-Cath placed in groin. ID: Septic shock- resolved HeRO graft infection s/p removal HCAP pneumonia- present on admission Persistent MRSA bacteremia -Persistent MRSA bacteremia could be secondary to infected remnant of the AV graft, versus secondary seeding of the catheters -Removed Vas-Cath, and left IJ central line 06/03/18 - ID Dr. Morgan, abx management per ID - Dr. Umana following - 05/27, 05/28, 05/30, 06/01 blood cultures MRSA - 05/27 sputum cultures: providencia, MRSA, e.coli - cont vancomycin: keep trough 15-20 cont rifampin - Continue meropenem, gentamicin and micafungin - will need 6 weeks coverage for MRSA graft infection ENDO: Type 2 diabetes Presumed Adrenal insufficiency -Sliding scale insulin -hydrocortisone discontinued 06/03 PROPH: -Bilateral lower extremity SCDs. Sq Heparin. IV Protonix 40 mg every 12 LINES: -Removed OSH left IJ central line and OSH right femoral Vas-Cath on 06/03/2018 -New Vas-Cath placement 06/04/18 prior to dialysis -left radial arterial line 05/27: Overall impression: Continued bacteremia is worrisome. Probably need to consider removal of the graft remnant.
--- NOTE | 2018-06-05 18:18 | P.PNID ---
Subjective Remarks: worse again back on pressors, on Lecvaphed 10 mcgs And blood clx from 06/03 is growing GPC up to 50% FiO2 Antibiotics: vanco meropenem fluconazole rifampin gentamycin Allergies/Adverse Reactions: Allergies No Known Allergies Allergy (Unknown, Uncoded 12/24/17 14:57) Objective Vital Signs 06/04/18 20:00 06/04/18 21:11 06/04/18 21:15 Temperature 98.8 F Pulse Rate 101 H 96 H Respiratory Rate 16 16 16 Blood Pressure 103/52 L Pulse Oximetry 94 L 96 06/05/18 00:00 06/05/18 00:30 06/05/18 03:40 Temperature 99.0 F Pulse Rate 84 Respiratory Rate 16 16 18 Blood Pressure 115/50 L Pulse Oximetry 97 96 95 06/05/18 04:00 06/05/18 07:00 06/05/18 08:33 Temperature 98.4 F 97.3 F L Pulse Rate 102 H 105 H 102 H Respiratory Rate 20 16 17 Blood Pressure 122/53 L 149/61 H Pulse Oximetry 94 L 98 06/05/18 11:00 06/05/18 11:22 06/05/18 14:20 Temperature 98 F Pulse Rate 87 Respiratory Rate 16 18 16 Blood Pressure 102/49 L Pulse Oximetry 98 98 98 06/05/18 15:00 06/05/18 16:35 Temperature 98.7 F Pulse Rate 91 H 80 Respiratory Rate 16 16 Blood Pressure 118/49 L Pulse Oximetry 99 Intake & Output 06/04/18 06/05/18 06/05/18 18:59 06:59 18:59 Intake Total 516 / 516 200 / 200 840 / 840 Output Total 3100 / 3100 Balance 516 / 516 200 / 200 -2260 / -2260 Weight 133.4 kg Intake: IV 516 / 516 200 / 200 840 / 840 Diprivan 1000 mg/100 ml Inj 1, 215 / 215 000 mg In 100 ml @ 5 MCG/KG/MIN 3.87 mls/hr IV.CONT TITRATE PRN Rx#:[id number] Flexbumin 25% Inj 100 ML @ 60 200 / 200 100 / 100 mls/hr IV.SIG Q12H TRACIE Rx#: [id number] Diflucan 200 mg Premix Bag 100 100 / 100 ML @ 100 mls/hr IV.SIG Q24H TRACIE Rx#:[id number] Merrem Inj 1,000 MG In NS Inj 100 / 100 100 / 100 100 ML @ 200 mls/hr IV.SIG Q24H TRACIE Rx#:[id number] Mycamine Inj 150 MG In NS Inj 100 / 100 100 ML @ 100 mls/hr IV.SIG Q24H TRACIE Rx#:[id number] Levophed-Dextrose 4 mg/250 ml 525 / 525 Drip 4 mg In 250 ml @ 2 MCG/MIN 7.5 mls/hr IV.SIG TITRATE PRN Rx#:[id number] NS Inj 100 ML @ As Directed IV. 100 / 100 SIG Q2H TRACIE Rx#:[id number] Oral 0 / 0 Output: Urine 0 / 0 Hemodialysis Amount 3000 / 3000 Gastric Drainage 100 / 100 Right Nare Nasogastric Tube 100 / 100 Other: Date of Last Bowel Movement 06/04/18 06/04/18 06/05/18 # Bowel Movements 1 1 0 06/05/18 16:00 Wound - Incision Gram Stain - Pending 06/05/18 16:00 Wound - Incision Wound Culture - Pending 06/04/18 08:25 Blood - Peripheral Aerobic Blood Culture - Preliminary gram positive cocci 06/04/18 08:25 Blood - Peripheral Anaerobic Blood Culture - Preliminary No growth in 1 day 06/04/18 08:20 Blood - Peripheral Aerobic Blood Culture - Preliminary No growth in 1 day 06/04/18 08:20 Blood - Peripheral Anaerobic Blood Culture - Preliminary No growth in 1 day 06/01/18 14:23 Blood - Peripheral Aerobic Blood Culture - Final S. aureus MRSA 06/01/18 14:23 Blood - Peripheral Anaerobic Blood Culture - Preliminary No growth in 4 days 06/01/18 14:29 Blood - Peripheral Aerobic Blood Culture - Final S. aureus MRSA 06/01/18 14:29 Blood - Peripheral Anaerobic Blood Culture - Preliminary No growth in 4 days 05/28/18 14:40 Wound - Arm Fungal Smear - Final No fungal elements seen 05/28/18 14:40 Wound - Arm Fungal Culture - Preliminary No growth in 1 week 05/28/18 14:40 Wound - Arm Acid Fast Bacilli Smear - Final No acid fast bacilli seen 05/28/18 14:40 Wound - Arm Mycobacterial Culture - Preliminary No growth in 1 week 05/28/18 14:40 Other Fungal Smear - Final No fungal elements seen 05/28/18 14:40 Other Fungal Culture - Preliminary No growth in 1 week 05/28/18 14:40 Other Acid Fast Bacilli Smear - Final No acid fast bacilli seen 05/28/18 14:40 Other Mycobacterial Culture - Preliminary No growth in 1 week 05/30/18 14:45 Blood - Peripheral Aerobic Blood Culture - Final S. aureus MRSA 05/30/18 14:45 Blood - Peripheral Anaerobic Blood Culture - Final No growth in 5 days 05/30/18 14:35 Blood - Peripheral Aerobic Blood Culture - Final S. aureus MRSA 05/30/18 14:35 Blood - Peripheral Anaerobic Blood Culture - Final No growth in 5 days 06/02/18 09:00 Wound - Incision Gram Stain - Final 06/02/18 09:00 Wound - Incision Wound Culture - Final Arlet albicans 06/01/18 17:06 Sputum - Endotracheal Gram Stain - Final 06/01/18 17:06 Sputum - Endotracheal Sputum Culture - Final S. aureus MRSA Lab - Hematology Results 06/04/18 06/05/18 08:20 05:20 WBC 15.8 H 14.5 H RBC 3.30 L 2.94 L Hgb 9.6 L 8.4 L Hct 29.1 L 26.1 L MCV 88.0 88.8 MCH 28.9 28.8 MCHC 32.9 32.4 RDW 18.3 H 18.0 H Plt Count 108 L 213 D MPV 8.3 9.0 Lab - Chemistry Results 06/03/18 06/04/18 06/04/18 20:18 01:25 05:58 Sodium Potassium Chloride Carbon Dioxide Anion Gap BUN Creatinine Estimated GFR POC Glucose 215 H 291 H 207 H Random Glucose Calcium Phosphorus Magnesium Total Bilirubin AST ALT Alkaline Phosphatase Total Protein Albumin 06/04/18 06/04/18 06/04/18 08:20 08:23 11:27 Sodium 143 Potassium 3.5 Chloride 103 Carbon Dioxide 28.7 Anion Gap 11 BUN 49 H Creatinine 5.39 H Estimated GFR 13 L POC Glucose 199 H 143 H Random Glucose 203 H Calcium 9.9 D Phosphorus 5.9 H Magnesium 2.3 Total Bilirubin 0.5 AST 9 L ALT 14 Alkaline Phosphatase 122 H Total Protein 8.3 H D Albumin 3.6 06/04/18 06/04/18 06/04/18 16:12 21:02 23:10 Sodium Potassium Chloride Carbon Dioxide Anion Gap BUN Creatinine Estimated GFR POC Glucose 246 H 220 H 184 H Random Glucose Calcium Phosphorus Magnesium Total Bilirubin AST ALT Alkaline Phosphatase Total Protein Albumin 06/05/18 06/05/18 06/05/18 04:06 05:20 07:44 Sodium 143 Potassium 4.0 Chloride 102 Carbon Dioxide 20.1 L Anion Gap 21 H BUN 67 H Creatinine 6.86 H Estimated GFR 10 L POC Glucose 219 H 247 H Random Glucose 247 H Calcium 9.6 Phosphorus Magnesium 2.4 Total Bilirubin 0.8 AST 6 L ALT 12 Alkaline Phosphatase 69 Total Protein 8.0 Albumin 3.5 06/05/18 06/05/18 11:16 15:41 Sodium Potassium Chloride Carbon Dioxide Anion Gap BUN Creatinine Estimated GFR POC Glucose 118 H 197 H Random Glucose Calcium Phosphorus Magnesium Total Bilirubin AST ALT Alkaline Phosphatase Total Protein Albumin Imaging: ITS Impressions Upper Extremity Ultrasound 05/28/18 00:00 CONCLUSION: 1. Right upper extremity AV (Hero) graft/catheter. 2. Small amount of nonocclusive thrombus in the proximal graft just beyond the radial artery anastomosis to the mid upper extremity level. 3. Complex perigraft fluid most prominently near the shoulder and chest wall measuring up to 3.5 x 1.8 cm. This most likely reflects perigraft hematoma although abscess cannot be excluded in the appropriate clinical setting. Abdomen X-Ray 05/31/18 00:00 CONCLUSION: 1. Suction-type NGT in the stomach. Chest X-Ray 06/04/18 06:00 CONCLUSION: No significant change. Physical Exam: GENERAL: NAD sedated. Just post re-intubaion intubated on vent SKIN: Warm and dry. No rash HEAD: Atraumatic. Normocephalic. EYES: Pupils equal and round. No scleral icterus. No injection or drainage. ENT: No nasal bleeding or discharge. Mucous membranes pink and moist. NECK: Trachea midline. No JVD. CARDIOVASCULAR: Regular rate and rhythm. Chest incision is open and packed, minim,al serosang drainage on the packing RESPIRATORY: No accessory muscle use. Rhonchi to auscultation. Breath sounds equal bilaterally. GASTROINTESTINAL: Abdomen soft, non-tender, nondistended. Hepatic and splenic margins not palpable. MUSCULOSKELETAL: Extremities without clubbing, cyanosis, +edema. RUE soft, swollen , new small opening in distal part of incision with some dark drainage no erythema edema : SP cath removed NEUROLOGICAL: sedated PSYCHIATRIC: unable to assess Assessment and Plan - Plan MRSA sepsis: persistent bacteremia- wilmer 2/2 retained infected graft all cultures remain positive including the one from 06/03 - sustained bacteremia: 2 cultures by 6 days Indwelling prosthetic vascular device (complex AV graft extending to R atrium ) Infected PD vascuklar synthetic graft: abscess vs infected hematoma - sp partial removal Cultures growing C.albicans along with MRSA Sepsis, septic shock; clincially resolving ESRD, on HD Acute VDRF; sp reintubation PNA, GNBs. Both isolates S to CFTX MRSA PNA Persistend hypotensiotn, back on pressors Clearly another septic episode: persistent graft infx vs new infection pt remains critical and unstable cont vancomycin: keep trough 15-20 cont rifampin dc meropenem cont gentamicinn for now cont fluconazol repeat BC fu sputum clx US RUE COnsider removal of the remainder of the graft to controll sepsis and bacteremia anais RN
[2018-06-06] MEDS: Insulin NovoLOG Aspart Correctional Sugar Inj SQ SCH ×6 (01:14→21:17)
[2018-06-06] MEDS: Sodium Chlor 0.9% Inj 100 ML IV.SIG SCH ×9 (01:14→20:47)
[2018-06-06 06:03] LABS: Baso # (Auto) 0.1 th/mm3 (0.0-0.2); Baso % (Auto) 0.9 % (0.0-2.0); Eos # (Auto) 0.2 th/mm3 (0.0-0.4); Eos % (Auto) 1.5 % (0.0-4.0); Hematocrit 23.5 % (39.0-51.0); Hemoglobin 7.8 gm/dL (13.0-17.0); Lymph # (Auto) 1.5 th/mm3 (1.0-4.8); Lymph % (Auto) 12.9 % (9.0-44.0); Mean Corpuscular HGB Conc 33.1 % (32.0-36.0); Mean Corpuscular Hemoglobin 28.9 pg (27.0-34.0); Mean Corpuscular Volume 87.3 fL (80.0-100.0); Mean Platelet Volume 8.4 fL (7.0-11.0); Mono # (Auto) 1.3 th/mm3 (0.0-0.9); Mono % (Auto) 11.3 % (0.0-8.0); Neut # (Auto) 8.4 th/mm3 (1.8-7.7); Neut % (Auto) 73.4 % (16.0-70.0); Platelet Count 274 th/mm3 (150-450); Red Blood Count 2.69 mil/mm3 (4.50-5.90); Red Cell Distribution Width 18.5 % (11.6-17.2); White Blood Count 11.5 th/mm3 (4.0-11.0)
[2018-06-06 06:46] LABS: Albumin 3.7 g/dL (3.4-5.0); Calcium 9.9 mg/dL (8.5-10.1); Carbon Dioxide 23.6 meq/L (21.0-32.0); Phosphorus 6.8 mg/dL (2.5-4.9); Potassium 3.7 meq/L (3.5-5.1)
[2018-06-06] MEDS: Propofol 1000 mg/100 ml Inj 1,000 MG/100 ML BOTTLE IV.CONT PRN ×3 (06:51→23:09)
--- NOTE | 2018-06-06 07:15 | P.PNCC ---
Subjective Subjective Remarks/Hospital Course: Mr. Laguerre is a 73-year-old -[place] male with past medical history significant for end-stage renal disease on hemodialysis, hypertension, complicated vascular access, HeRO graft placement by Dr. Umana on 09/23/2017, revision and PTFE replacement 12/25/17. who presented to the [facility] with probable sepsis and shock. Dr. Umana was contacted and patient was accepted for transfer to CVICU in [facility]. I immediately evaluated the patient on arrival to CVICU. Patient is currently on BiPAP (transported on BiPAP) severely encephalopathic hardly wakes up to sternal rub, with a rapid shallow breathing. BiPAP settings 18/8, 60% FiO2. He is literally unresponsive and not protecting airway. Currently he is on Levophed at 20 mcg/min with a map 65-70. He is also on amiodarone for atrial fibrillation with RVR. Because of lack of airway protection, severe encephalopathy, septic shock and hypoxia I proceeded with endotracheal intubation. His glottic opening was completely occluded with thick secretions, several minutes of suctioning needed to clear the secretions prior to intubation. Postintubation Levophed had to be increased to 30 mcg/min, I also placed an arterial line. All cultures, routine labs and lactic acid pending at this time. I have started him on vancomycin and Zosyn. Discussed case with Dr. Umana extensively Patient was unable to provide any history, according to the RN who got report patient apparently had GI bleed, underwent EGD with cauterization of duodenal ulcer few days ago. Will avoid heparin for DVT prophylaxis. His postintubation ABG showed severe hypoxia with significant AA gradient, metabolic acidosis, and a hemoglobin of 7.6. Currently Levophed is increased to 30 mcg/min, I will transfuse 1 unit PRBC. Chest x-ray shows pulmonary edema will arrange for hemodialysis once his shock is improves. At this time he will not be able to tolerate either hemodialysis or even CVVH 05/28: initially evaluated around 6:30am. patient in refractory septic shock. added epinephrine to levophed and vasopressin. discussed with Dr. Umana. obtained u/s of the right upper extremity which demonstrated fluid collection surrounding the HeRO graft which was heterogenous in nature. added single dose of Amikacin to vanc/zosyn regimen to cover ESBL organisms. patient remains in shock. per verbal report from OSH, blood cultures growing MRSA. taken to OR urgently and large amount of purulent drainage debrided from around catheter. HeRO catheter removed. returns from OR persistently unstable. acidosis worsening. bicarb given. discussed with nephrology and will need CRRT. 05/29: s/p emergent debridement and removal of HeRO graft. today vasopressor doses are somewhat lower, although remains on levo,vaso,epi. lactate cleared. s/ p IHD today with 3L removal. blood growing MRSA. sputum growing e.coli, providencia, MRSA. wbc remains elevated. 05/30: off vasopressors. getting IHD again today. hgb 7 and receiving 1 unit prbc during dialysis. encephalopathy persists, not following commands. 05/31: clinically continues to improve. not following commands, very slow to arouse. bradycardic this AM, but tolerating hemodynamically. HD yesterday with volume removal. 06/01: Clinically improved off all pressors. Sedated with propofol and fentanyl , opens eyes moves extremities not following commands. Plan for hemodialysis today. Initiate CPAP trial after hemodialysis. Persistently bacteremic with MRSA, repeat cultures in 24 hours 06/02: Remains in septic shock, though pressor requirement has improved. Hypotensive bradycardic while getting HD yesterday, started on Dopamine, now at 3 mcg/kg/min. Pus being expressed from upper part of right upper chest [id number] (HeRO AVG removal site). Hypothermic. Some pus around the suprapubic catheter 06/03: Patient had been weaned off all pressors now. Not requiring dopamine for the last 18 hours. However WBC count 13 K today. Persistent bacteremia with MRSA. Source could be right upper extremity graft remnant versus infected invasive catheters. After hemodialysis removal HD catheter, also remove left IJ central line. Repeat blood cultures in 24 hours. Antibiotics broadened by ID yesterday 06/04: Showing some clinical signs of improvement. Not requiring pressors hypothermia has resolved. CBC still pending patient is more awake following commands tolerating CPAP now. Left IJ central line and right femoral Vas-Cath was removed yesterday. Plan for next dialysis is tomorrow will place new Vas- Cath tomorrow a.m. to give 'line holiday'. 06/05: Back on norepinephrine at 10 mics per minute. Blood blood pressure variable, intermittently hypotensive. New Vas-Cath placed in groin functional. Most recent cultures continued to grow gram-positive cocci. Alert when propofol is lightened Subjective: 06/06: Afebrile. Remains on norepinephrine drip at 7 mcg/min. Arousable on the ventilator on sedation vacation. Commands. -3 L with hemodialysis yesterday. Repeat blood cultures done the same. Right upper extremity ultrasound pending.. Objective Vital Signs / I&O: Vital Signs 06/05/18 08:33 06/05/18 11:00 06/05/18 11:22 Temperature 98 F Pulse Rate 102 H 87 Respiratory Rate 17 16 18 Blood Pressure 102/49 L Pulse Oximetry 98 98 98 06/05/18 14:20 06/05/18 15:00 06/05/18 16:10 Temperature 98.7 F Pulse Rate 91 H Respiratory Rate 16 16 16 Blood Pressure 118/49 L Pulse Oximetry 98 99 99 06/05/18 16:35 06/05/18 19:00 06/05/18 21:35 Temperature 99 F Pulse Rate 80 111 H Respiratory Rate 16 16 17 Blood Pressure 133/53 L Pulse Oximetry 98 06/05/18 23:00 06/06/18 00:30 06/06/18 03:00 Temperature 99 F 98.5 F Pulse Rate 108 H 92 H Respiratory Rate 16 20 16 Blood Pressure 144/58 H 135/62 Pulse Oximetry 99 99 98 06/06/18 03:51 Temperature Pulse Rate Respiratory Rate 17 Blood Pressure Pulse Oximetry 99 Intake & Output 06/05/18 06/06/18 06/06/18 18:59 06:59 18:59 Intake Total 940 / 940 391 / 391 Output Total 3100 / 3100 Balance -2160 / -2160 391 / 391 Intake: IV 940 / 940 391 / 391 Diprivan 1000 mg/100 ml Inj 1, 215 / 215 194 / 194 000 mg In 100 ml @ 5 MCG/KG/MIN 3.87 mls/hr IV.CONT TITRATE PRN Rx#:[id number] Flexbumin 25% Inj 100 ML @ 60 100 / 100 mls/hr IV.SIG Q12H [facility] Rx#: [id number] Merrem Inj 1,000 MG In NS Inj 100 / 100 100 ML @ 200 mls/hr IV.SIG Q24H [facility] Rx#:[id number] Levophed-Dextrose 4 mg/250 ml 525 / 525 197 / 197 Drip 4 mg In 250 ml @ 2 MCG/MIN 7.5 mls/hr IV.SIG TITRATE PRN Rx#:[id number] Output: Urine 0 / 0 Hemodialysis Amount 3000 / 3000 Gastric Drainage 100 / 100 Right Nare Nasogastric Tube 100 / 100 Other: Date of Last Bowel Movement 06/05/18 06/05/18 # Bowel Movements 0 Result Diagrams: 06/06/18 05:20 06/06/18 05:20 Other Results: Microbiology 06/04/18 08:25 Blood - Peripheral Aerobic Blood Culture - Preliminary gram positive cocci 06/04/18 08:25 Blood - Peripheral Anaerobic Blood Culture - Preliminary No growth in 1 day 06/04/18 08:20 Blood - Peripheral Aerobic Blood Culture - Preliminary No growth in 1 day 06/04/18 08:20 Blood - Peripheral Anaerobic Blood Culture - Preliminary No growth in 1 day 06/01/18 14:23 Blood - Peripheral Aerobic Blood Culture - Final S. aureus MRSA 06/01/18 14:23 Blood - Peripheral Anaerobic Blood Culture - Preliminary No growth in 4 days 06/01/18 14:29 Blood - Peripheral Aerobic Blood Culture - Final S. aureus MRSA 06/01/18 14:29 Blood - Peripheral Anaerobic Blood Culture - Preliminary No growth in 4 days 05/28/18 14:40 Wound - Arm Fungal Smear - Final No fungal elements seen 05/28/18 14:40 Wound - Arm Fungal Culture - Preliminary No growth in 1 week 05/28/18 14:40 Wound - Arm Acid Fast Bacilli Smear - Final No acid fast bacilli seen 05/28/18 14:40 Wound - Arm Mycobacterial Culture - Preliminary No growth in 1 week 05/28/18 14:40 Other Fungal Smear - Final No fungal elements seen 05/28/18 14:40 Other Fungal Culture - Preliminary No growth in 1 week 05/28/18 14:40 Other Acid Fast Bacilli Smear - Final No acid fast bacilli seen 05/28/18 14:40 Other Mycobacterial Culture - Preliminary No growth in 1 week 05/30/18 14:45 Blood - Peripheral Aerobic Blood Culture - Final S. aureus MRSA 05/30/18 14:45 Blood - Peripheral Anaerobic Blood Culture - Final No growth in 5 days 05/30/18 14:35 Blood - Peripheral Aerobic Blood Culture - Final S. aureus MRSA 05/30/18 14:35 Blood - Peripheral Anaerobic Blood Culture - Final No growth in 5 days 06/02/18 09:00 Wound - Incision Gram Stain - Final 06/02/18 09:00 Wound - Incision Wound Culture - Final Arlet albicans 06/01/18 17:06 Sputum - Endotracheal Gram Stain - Final 06/01/18 17:06 Sputum - Endotracheal Sputum Culture - Final S. aureus MRSA 05/28/18 00:48 Blood - Peripheral Aerobic Blood Culture - Final S. aureus MRSA 05/28/18 00:48 Blood - Peripheral Anaerobic Blood Culture - Final No growth in 5 days 05/27/18 22:40 Blood - Peripheral Aerobic Blood Culture - Final S. aureus MRSA 05/27/18 22:40 Blood - Peripheral Anaerobic Blood Culture - Final No growth in 5 days 05/28/18 14:40 Tissue - Other Gram Stain - Final 05/28/18 14:40 Tissue - Other Wound Culture - Final S. aureus MRSA 05/28/18 14:40 Wound - Arm Gram Stain - Final 05/28/18 14:40 Wound - Arm Wound Culture - Final S. aureus MRSA 05/27/18 21:50 Sputum - Endotracheal Gram Stain - Final 05/27/18 21:50 Sputum - Endotracheal Sputum Culture - Final Escherichia coli Providencia stuartii S. aureus MRSA Imaging: ITS Impressions Upper Extremity Ultrasound 05/28/18 00:00 CONCLUSION: 1. Right upper extremity AV (Hero) graft/catheter. 2. Small amount of nonocclusive thrombus in the proximal graft just beyond the radial artery anastomosis to the mid upper extremity level. 3. Complex perigraft fluid most prominently near the shoulder and chest wall measuring up to 3.5 x 1.8 cm. This most likely reflects perigraft hematoma although abscess cannot be excluded in the appropriate clinical setting. Abdomen X-Ray 05/31/18 00:00 CONCLUSION: 1. Suction-type NGT in the stomach. Chest X-Ray 06/04/18 06:00 CONCLUSION: No significant change. Objective Remarks: GENERAL: 73-year-old -[place] male, lying in bed, intubated, light sedation HEENT: Normocephalic. Atraumatic. Pupils equal, round, reactive. NECK: Trachea is midline. Orotracheal intubation. CHEST: PRVC. equal chest rise. Air entry decreased with few coarse rhonchi bilaterally. Good bilateral air movement. CARDIOVASCULAR: Atrial fibrillation rate controlled. No murmurs. No JVD. ABDOMEN: Soft, nontender, nondistended. No guarding. Supra pubic catheter in place MUSCULOSKELETAL: Right upper extremity s/p debridement upper incision W/D dressing. Right groin catheter site appears CDI, LIJ site clean. Pulses 2+. No peripheral edema. New insertion site dry clean. NEUROLOGICAL: Opens eyes spontaneously off sedation. Follows commands 4 when light. No focal deficits Assessment and Plan - Assessment and Plan Plan: NEURO/PSYCH: Acute metabolic encephalopathy -currently a propofol drip at 15 mg/kg/min for sedation while intubated Goal of RA SS -2 daily sedation vacation Acetaminophen 650 mg by tube every 6 hours as needed fever -Altered mentation secondary to toxic metabolic encephalopathy from sepsis and hypercapnia RESP: Acute hypoxemic and hypercarbic respiratory failure Pulmonary edema HCAP with MRSA- present on admission -PRVC/AC 16/600/10/10/39. Ventilator bundle. DuoNeb every 6 hours scheduled and albuterol aerosols every 2 hours as needed -Continue abx. daily SAT/SBT: -MRSA pneumonia treatment below ABG/chest x-ray in a.m. 06/07 CV: Septic shock- Acute severe anion gap Metabolic acidosis- resolved Pulmonary edema-resolving Atrial fibrillation with RVR-currently normal sinus rhythm - remains on norepinephrine drip at 7 mcg/min to maintain mean arterial pressure greater than equal to 65 - Dcd stress dose steroids 06/03/2018 - HD daily for volume removal and electrolyte/acid-base abnormalities. -3 L - A. fib rate is controlled and currently normal sinus rhythm, cannot anticoagulate due to history of recent GI bleed GI/HEME/FEN: Recent GI bleed Acute anemia requiring transfusion Leukocytosis Hyperphosphatemia - Nepro tube feeds at 45 cc an hour per attrition recommendations with Vickie protein 1 packet 3 times daily - nutrition consult for TF recs - IV pantoprazole 40 mg IV daily Docusate sodium/senna 1 tablet twice daily for bowel regimen Calcium acetate 667 mg 3 times daily for elevated phosphorus. Recheck in a.m. /renal: End-stage renal disease on hemodialysis HeRO graft placed 09/2017, now removed due to graft infection - Nephrology: Dr. Davidson following - continue HD per nephrology, hemodialysis performed on Friday - D/W Dr. davidson, remove suprapubic catheter -New Vas-Cath placed in groin left lower extremity. ID: Septic shock- resolved HeRO graft infection s/p removal HCAP pneumonia- present on admission Persistent MRSA bacteremia -Persistent MRSA bacteremia could be secondary to infected remnant of the AV graft, versus secondary seeding of the catheters -Removed Vas-Cath, and left IJ central line 06/03/18 - ID Dr. Morgan, abx management per ID - Dr. Umana following - 05/27, 05/28, 05/30, 06/01 and 06/04 blood cultures MRSA - 05/27 sputum cultures: providencia, MRSA, e.coli - 06/02 wound with Arlet albicans - cont vancomycin: keep trough 15-20 cont rifampin - Continue fluconazole and gentamicin Discontinue meropenem and micafungin - will need 6 weeks coverage for MRSA graft infection ENDO: Type 2 diabetes Presumed Adrenal insufficiency -Sliding scale insulin with aspart insulin every 4 hours -hydrocortisone discontinued 06/03 PROPH: -Bilateral lower extremity SCDs. Sq Heparin. IV Protonix 40 mg every 12 LINES: -Removed OSH left IJ central line and OSH right femoral Vas-Cath on 06/03/2018 -New left femoral Vas-Cath placement 06/04/18 prior to dialysis -left radial arterial line 05/27: Overall impression: Continued bacteremia is worrisome. Probably need to consider removal of the graft remnant.
[2018-06-06] MEDS: Heparin - SQ 10,000 UNITS/ML Vial SQ SCH ×2 (08:22→21:18)
[2018-06-06] MEDS: Senna/Docusate Sodium 8.6/50 MG Tablet PO SCH ×2 (08:22→21:28)
[2018-06-06] MEDS: Mupirocin 2% Nasal Oint Topical Syringe EACH NARE SCH ×2 (08:22→21:18)
--- NOTE | 2018-06-06 09:53 | P.PNVS ---
Subjective Post Op Day #: 9 Procedure: Excision of arm and neck grafts, grossly infected Subjective/Hospital Course: back on pressors - norepi at 7 failed extubation several days ago, resting on vent off sev L on HD yesterday persistent bacteremia Objective Neuro: arousable and VAN to appropriate commands Pulmonary: ventilated, good sats Cardiac: pressor req stable for intermittent hypotension FEN/GI: TF resumed Laboratory Results - last 24 hr 06/05/18 06/05/18 06/05/18 11:16 15:41 20:00 WBC RBC Hgb Hct MCV MCH MCHC RDW Plt Count MPV Neut % (Auto) Lymph % (Auto) [place] % (Auto) Eos % (Auto) Baso % (Auto) Neut # (Auto) Lymph # (Auto) [place] # (Auto) Eos # (Auto) Baso # (Auto) WBC Differential Differential Comment Sodium Potassium Chloride Carbon Dioxide Anion Gap BUN Creatinine Estimated GFR POC Glucose 118 H 197 H 226 H Random Glucose Calcium Phosphorus Albumin Random Gentamicin 06/06/18 06/06/18 06/06/18 01:06 03:37 05:20 WBC RBC Hgb Hct MCV MCH MCHC RDW Plt Count MPV Neut % (Auto) Lymph % (Auto) [place] % (Auto) Eos % (Auto) Baso % (Auto) Neut # (Auto) Lymph # (Auto) [place] # (Auto) Eos # (Auto) Baso # (Auto) WBC Differential Differential Comment Sodium Potassium Chloride Carbon Dioxide Anion Gap BUN Creatinine Estimated GFR POC Glucose 227 H 173 H Random Glucose Calcium Phosphorus Albumin Random Gentamicin 3.6 06/06/18 06/06/18 06/06/18 05:20 05:20 07:49 WBC 11.5 H RBC 2.69 L Hgb 7.8 L Hct 23.5 L MCV 87.3 MCH 28.9 MCHC 33.1 RDW 18.5 H Plt Count 274 MPV 8.4 Neut % (Auto) 73.4 H Lymph % (Auto) 12.9 [place] % (Auto) 11.3 H Eos % (Auto) 1.5 Baso % (Auto) 0.9 Neut # (Auto) 8.4 H Lymph # (Auto) 1.5 [place] # (Auto) 1.3 H Eos # (Auto) 0.2 Baso # (Auto) 0.1 WBC Differential . Differential Comment Auto diff final Sodium 140 Potassium 3.7 Chloride 100 Carbon Dioxide 23.6 Anion Gap 16 H BUN 55 H Creatinine 6.70 H Estimated GFR 10 L POC Glucose 156 H Random Glucose 155 H Calcium 9.9 Phosphorus 6.8 H Albumin 3.7 Random Gentamicin Microbiology 06/04/18 08:25 Aerobic Blood Culture - Preliminary Blood - Peripheral S. aureus MRSA Anaerobic Blood Culture - Preliminary No growth in 1 day 06/04/18 08:20 Aerobic Blood Culture - Preliminary Blood - Peripheral No growth in 1 day Anaerobic Blood Culture - Preliminary No growth in 1 day 06/05/18 16:00 Gram Stain - Final Wound - Incision 06/01/18 14:23 Aerobic Blood Culture - Final Blood - Peripheral S. aureus MRSA Anaerobic Blood Culture - Preliminary No growth in 4 days 06/01/18 14:29 Aerobic Blood Culture - Final Blood - Peripheral S. aureus MRSA Anaerobic Blood Culture - Preliminary No growth in 4 days Impressions Chest X-Ray 06/04/18 00:00 CONCLUSION: 1. The endotracheal tube appears to be in good position. 2. No evidence of pneumothorax. 3. Stable left-sided pleural effusion with some mild parenchymal changes in the left lung base. Assessment and Plan - Assessment (1) Septic shock Code(s): A41.9 - Sepsis, unspecified organism; R65.21 - Severe sepsis with septic shock Status: Deleted (2) Arteriovenous graft infection Code(s): T82.7XXA - Infection and inflammatory reaction due to other cardiac and vascular devices, implants and grafts, initial encounter Status: Deleted - Plan POD#9 s/p excision of R neck and arm graft on pressors but stable 1. Continue vent wean and work towards extubation again 2. continue to lighten sedation 3. continue TF 4. Wean pressors, would favor gentle HD 5. W to D neck wound 6. ultimately if bacteremia persists, will remove defunctionalized remnant graft from R UE - potentially early next week
[2018-06-06] MEDS: Beneprotein Powder Packet G-TUBE SCH ×3 (10:40→17:35)
[2018-06-06] MEDS: Pantoprazole Inj 40 MG Vial IV.PUSH SCH ×2 (10:54→23:39)
[2018-06-06] MEDS: Albumin Human 25% Inj 100 ML IV.SIG SCH (10:54)
[2018-06-06] MEDS: Calcium Acetate 667 MG Capsule PO SCH ×3 (10:54→17:35)
--- NOTE | 2018-06-06 11:08 | P.PNNP ---
Subjective Interval history: Patient remains intubated, sedated. on pressors. Physical Exam Vital signs: Vital Signs 06/05/18 11:00 06/05/18 11:22 06/05/18 14:20 Temperature 98 F Pulse Rate 87 Respiratory Rate 16 18 16 Blood Pressure 102/49 L Pulse Oximetry 98 98 98 06/05/18 15:00 06/05/18 16:10 06/05/18 16:35 Temperature 98.7 F Pulse Rate 91 H 80 Respiratory Rate 16 16 16 Blood Pressure 118/49 L Pulse Oximetry 99 99 06/05/18 19:00 06/05/18 21:35 06/05/18 23:00 Temperature 99 F 99 F Pulse Rate 111 H 108 H Respiratory Rate 16 17 16 Blood Pressure 133/53 L 144/58 H Pulse Oximetry 98 99 06/06/18 00:30 06/06/18 03:00 06/06/18 03:51 Temperature 98.5 F Pulse Rate 92 H Respiratory Rate 20 16 17 Blood Pressure 135/62 Pulse Oximetry 99 98 99 06/06/18 07:00 06/06/18 09:36 06/06/18 09:38 Temperature 96.9 F L Pulse Rate 90 100 H Respiratory Rate 17 17 17 Blood Pressure 130/53 L Pulse Oximetry 95 95 Intake & Output 06/05/18 06/06/18 06/06/18 18:59 06:59 18:59 Intake Total 940 / 940 391 / 391 613 / 613 Output Total 3100 / 3100 200 / 200 Balance -2160 / -2160 191 / 191 613 / 613 Weight 129.6 kg Intake: IV 940 / 940 391 / 391 613 / 613 Diprivan 1000 mg/100 ml Inj 1, 215 / 215 194 / 194 127 / 127 000 mg In 100 ml @ 5 MCG/KG/MIN 3.87 mls/hr IV.CONT TITRATE PRN Rx#:[id number] Flexbumin 25% Inj 100 ML @ 60 100 / 100 mls/hr IV.SIG Q12H [facility] Rx#: [id number] Merrem Inj 1,000 MG In NS Inj 100 / 100 100 ML @ 200 mls/hr IV.SIG Q24H [facility] Rx#:[id number] Levophed-Dextrose 4 mg/250 ml 525 / 525 197 / 197 486 / 486 Drip 4 mg In 250 ml @ 2 MCG/MIN 7.5 mls/hr IV.SIG TITRATE PRN Rx#:[id number] Output: Urine 0 / 0 0 / 0 Hemodialysis Amount 3000 / 3000 Gastric Drainage 100 / 100 200 / 200 Right Nare Nasogastric Tube 100 / 100 200 / 200 Other: Date of Last Bowel Movement 06/05/18 06/06/18 06/05/18 # Bowel Movements 0 1 - Constitutional no acute distress - Routine HEENT Exam Head: Present: normocephalic ENT: Present: mucous membranes moist - Routine Neck Exam Present: supple - Routine Respiratory Exam Present: patient mechanically ventilated - Routine Cardiovascular Exam Present: RRR - Routine Abdominal Exam Present: soft - Routine Skin Exam Present: intact - Detailed Neurological Exam: Coma Scale Eye Opening: None Verbal Response: None - Urinary Catheter Management Suprapubic Cath placed during this visit: no Assessment and Plan - Assessment (1) End stage renal disease on dialysis Code(s): N18.6 - End stage renal disease; Z99.2 - Dependence on renal dialysis Status: Acute (2) Acute hypoxemic respiratory failure Code(s): J96.01 - Acute respiratory failure with hypoxia Status: Deleted (3) Arteriovenous graft infection Code(s): T82.7XXA - Infection and inflammatory reaction due to other cardiac and vascular devices, implants and grafts, initial encounter Status: Deleted (4) Atrial fibrillation with RVR Code(s): I48.91 - Unspecified atrial fibrillation Status: Deleted (5) Hemodialysis access, AV graft Code(s): Z99.2 - Dependence on renal dialysis Status: Acute - Plan Patient has sepsis and undergoing treatment with IV vancomycin He is scheduled to do dialysis, Friday and Friday HD done Friday, next HD Friday. Now apparent HeRO infection and MRSA: Apparent removal of previous left IJ port, s/p partial removal for right arm graft and HeRO outflow component. Continue antibiotics, follow with vascular. -- Patient well known to in outpatient: Right subclavian occlusion with right brachiobasilic AV fistula - HeRO placed 09/2017 from axillary vein, with outflow via right external jugular vein. Subsequent revision with new graft component 12/2017. Placement of left IJ port 04/2018 HeRO thrombectomy 04/17/2018 with thrombosis attributed to hypotension ( on midodrine outpatient) Normal HeRO Doppler 05/19/2018 with flow volume 1.6L/min. Once all issues are stabilized and infection controlled, may need eventual transition of femoral catheter to left IJ tunneled catheter, and possible left arm venogram and mapping for access as an outpatient. However remains critically ill. Continue with current lines at this time.
[2018-06-06] MEDS: Hypromellose 0.3% Opth Gel 10 GM Bottle EACH EYE SCH ×2 (14:53→21:24)
--- NOTE | 2018-06-06 18:48 | P.PNID ---
Subjective Remarks: T max 99.0 On pressors, Levaphed now up to 13 mcgs Another + blood clx On vent Antibiotics: vanco fluconazole rifampin gentamycin Allergies/Adverse Reactions: Allergies No Known Allergies Allergy (Unknown, Uncoded 12/24/17 14:57) Objective Vital Signs 06/05/18 19:00 06/05/18 21:35 06/05/18 23:00 Temperature 99 F 99 F Pulse Rate 111 H 108 H Respiratory Rate 16 17 16 Blood Pressure 133/53 L 144/58 H Pulse Oximetry 98 99 06/06/18 00:30 06/06/18 03:00 06/06/18 03:51 Temperature 98.5 F Pulse Rate 92 H Respiratory Rate 20 16 17 Blood Pressure 135/62 Pulse Oximetry 99 98 99 06/06/18 07:00 06/06/18 09:36 06/06/18 09:38 Temperature 96.9 F L Pulse Rate 90 100 H Respiratory Rate 17 17 17 Blood Pressure 130/53 L Pulse Oximetry 95 95 06/06/18 11:00 06/06/18 12:54 06/06/18 15:00 Temperature 97 F L 99 F Pulse Rate 106 H 91 H Respiratory Rate 17 20 17 Blood Pressure 132/52 L 81/39 L Pulse Oximetry 95 96 95 06/06/18 15:58 06/06/18 15:59 Temperature Pulse Rate 90 Respiratory Rate 16 16 Blood Pressure Pulse Oximetry 97 Intake & Output 06/05/18 06/06/18 06/06/18 18:59 06:59 18:59 Intake Total 940 / 940 491 / 491 1388 / 1388 Output Total 3100 / 3100 200 / 200 0 / 0 Balance -2160 / -2160 291 / 291 1388 / 1388 Weight 129.6 kg Intake: IV 940 / 940 491 / 491 1004 / 1004 Diprivan 1000 mg/100 ml Inj 1, 215 / 215 194 / 194 184 / 184 000 mg In 100 ml @ 5 MCG/KG/MIN 3.87 mls/hr IV.CONT TITRATE PRN Rx#:[id number] Flexbumin 25% Inj 100 ML @ 60 100 / 100 100 / 100 100 / 100 mls/hr IV.SIG Q12H [facility] Rx#: [id number] Merrem Inj 1,000 MG In NS Inj 100 / 100 100 ML @ 200 mls/hr IV.SIG Q24H [facility] Rx#:[id number] Levophed-Dextrose 4 mg/250 ml 525 / 525 197 / 197 720 / 720 Drip 4 mg In 250 ml @ 2 MCG/MIN 7.5 mls/hr IV.SIG TITRATE PRN Rx#:[id number] Tube Feeding 264 / 264 Tube Irrigant 120 / 120 Output: Urine 0 / 0 0 / 0 0 / 0 Hemodialysis Amount 3000 / 3000 Gastric Drainage 100 / 100 200 / 200 Right Nare Nasogastric Tube 100 / 100 200 / 200 Other: Date of Last Bowel Movement 06/05/18 06/06/18 06/06/18 # Bowel Movements 0 1 1 06/05/18 16:00 Wound - Incision Gram Stain - Final 06/05/18 16:00 Wound - Incision Wound Culture - Preliminary No growth in 24 hours 06/05/18 06:10 Blood - Peripheral Aerobic Blood Culture - Preliminary No growth in 1 day 06/05/18 06:10 Blood - Peripheral Anaerobic Blood Culture - Preliminary No growth in 1 day 06/05/18 06:19 Blood - Peripheral Aerobic Blood Culture - Preliminary No growth in 1 day 06/05/18 06:19 Blood - Peripheral Anaerobic Blood Culture - Preliminary No growth in 1 day 06/04/18 08:25 Blood - Peripheral Aerobic Blood Culture - Preliminary S. aureus MRSA 06/04/18 08:25 Blood - Peripheral Anaerobic Blood Culture - Preliminary No growth in 2 days 06/04/18 08:20 Blood - Peripheral Aerobic Blood Culture - Preliminary No growth in 2 days 06/04/18 08:20 Blood - Peripheral Anaerobic Blood Culture - Preliminary No growth in 2 days 06/01/18 14:23 Blood - Peripheral Aerobic Blood Culture - Final S. aureus MRSA 06/01/18 14:23 Blood - Peripheral Anaerobic Blood Culture - Final No growth in 5 days 06/01/18 14:29 Blood - Peripheral Aerobic Blood Culture - Final S. aureus MRSA 06/01/18 14:29 Blood - Peripheral Anaerobic Blood Culture - Final No growth in 5 days 06/06/18 05:20 Blood - Peripheral Aerobic Blood Culture - Pending 06/06/18 05:20 Blood - Peripheral Anaerobic Blood Culture - Pending 06/06/18 05:40 Blood - Peripheral Aerobic Blood Culture - Pending 06/06/18 05:40 Blood - Peripheral Anaerobic Blood Culture - Pending 05/28/18 14:40 Wound - Arm Fungal Smear - Final No fungal elements seen 05/28/18 14:40 Wound - Arm Fungal Culture - Preliminary No growth in 1 week 05/28/18 14:40 Wound - Arm Acid Fast Bacilli Smear - Final No acid fast bacilli seen 05/28/18 14:40 Wound - Arm Mycobacterial Culture - Preliminary No growth in 1 week 05/28/18 14:40 Other Fungal Smear - Final No fungal elements seen 05/28/18 14:40 Other Fungal Culture - Preliminary No growth in 1 week 05/28/18 14:40 Other Acid Fast Bacilli Smear - Final No acid fast bacilli seen 05/28/18 14:40 Other Mycobacterial Culture - Preliminary No growth in 1 week 05/30/18 14:45 Blood - Peripheral Aerobic Blood Culture - Final S. aureus MRSA 05/30/18 14:45 Blood - Peripheral Anaerobic Blood Culture - Final No growth in 5 days 05/30/18 14:35 Blood - Peripheral Aerobic Blood Culture - Final S. aureus MRSA 05/30/18 14:35 Blood - Peripheral Anaerobic Blood Culture - Final No growth in 5 days 06/02/18 09:00 Wound - Incision Gram Stain - Final 06/02/18 09:00 Wound - Incision Wound Culture - Final Arlet albicans Lab - Hematology Results 06/05/18 06/06/18 05:20 05:20 WBC 14.5 H 11.5 H RBC 2.94 L 2.69 L Hgb 8.4 L 7.8 L Hct 26.1 L 23.5 L MCV 88.8 87.3 MCH 28.8 28.9 MCHC 32.4 33.1 RDW 18.0 H 18.5 H Plt Count 213 D 274 MPV 9.0 8.4 Neut % (Auto) 73.4 H Lymph % (Auto) 12.9 [place] % (Auto) 11.3 H Eos % (Auto) 1.5 Baso % (Auto) 0.9 Neut # (Auto) 8.4 H Lymph # (Auto) 1.5 [place] # (Auto) 1.3 H Eos # (Auto) 0.2 Baso # (Auto) 0.1 WBC Differential . Differential Comment Auto diff final Lab - Chemistry Results 06/04/18 06/04/18 06/05/18 21:02 23:10 04:06 Sodium Potassium Chloride Carbon Dioxide Anion Gap BUN Creatinine Estimated GFR POC Glucose 220 H 184 H 219 H Random Glucose Calcium Phosphorus Magnesium Total Bilirubin AST ALT Alkaline Phosphatase Total Protein Albumin 06/05/18 06/05/18 06/05/18 05:20 07:44 11:16 Sodium 143 Potassium 4.0 Chloride 102 Carbon Dioxide 20.1 L Anion Gap 21 H BUN 67 H Creatinine 6.86 H Estimated GFR 10 L POC Glucose 247 H 118 H Random Glucose 247 H Calcium 9.6 Phosphorus Magnesium 2.4 Total Bilirubin 0.8 AST 6 L ALT 12 Alkaline Phosphatase 69 Total Protein 8.0 Albumin 3.5 06/05/18 06/05/18 06/06/18 15:41 20:00 01:06 Sodium Potassium Chloride Carbon Dioxide Anion Gap BUN Creatinine Estimated GFR POC Glucose 197 H 226 H 227 H Random Glucose Calcium Phosphorus Magnesium Total Bilirubin AST ALT Alkaline Phosphatase Total Protein Albumin 06/06/18 06/06/18 06/06/18 03:37 05:20 07:49 Sodium 140 Potassium 3.7 Chloride 100 Carbon Dioxide 23.6 Anion Gap 16 H BUN 55 H Creatinine 6.70 H Estimated GFR 10 L POC Glucose 173 H 156 H Random Glucose 155 H Calcium 9.9 Phosphorus 6.8 H Magnesium Total Bilirubin AST ALT Alkaline Phosphatase Total Protein Albumin 3.7 06/06/18 06/06/18 11:16 16:03 Sodium Potassium Chloride Carbon Dioxide Anion Gap BUN Creatinine Estimated GFR POC Glucose 236 H 226 H Random Glucose Calcium Phosphorus Magnesium Total Bilirubin AST ALT Alkaline Phosphatase Total Protein Albumin Imaging: ITS Impressions Upper Extremity Ultrasound 05/28/18 00:00 CONCLUSION: 1. Right upper extremity AV (Hero) graft/catheter. 2. Small amount of nonocclusive thrombus in the proximal graft just beyond the radial artery anastomosis to the mid upper extremity level. 3. Complex perigraft fluid most prominently near the shoulder and chest wall measuring up to 3.5 x 1.8 cm. This most likely reflects perigraft hematoma although abscess cannot be excluded in the appropriate clinical setting. Abdomen X-Ray 05/31/18 00:00 CONCLUSION: 1. Suction-type NGT in the stomach. Chest X-Ray 06/04/18 06:00 CONCLUSION: No significant change. Physical Exam: GENERAL: NAD sedated. intubated on vent SKIN: Warm and dry. No rash HEAD: Atraumatic. Normocephalic. EYES: Pupils equal and round. No scleral icterus. No injection or drainage. ENT: No nasal bleeding or discharge. Mucous membranes pink and moist. NECK: Trachea midline. No JVD. CARDIOVASCULAR: Regular rate and rhythm. Chest incision is open and packed, minim,al serosang drainage on the packing RESPIRATORY: No accessory muscle use. Rhonchi to auscultation. Breath sounds equal bilaterally. GASTROINTESTINAL: Abdomen soft, non-tender, nondistended. Hepatic and splenic margins not palpable. MUSCULOSKELETAL: Extremities without clubbing, cyanosis, +edema. RUE soft, swollen , new small opening in distal part of incision with dark drainage + induration ion mid incision no erythema edema : SP cath removed NEUROLOGICAL: sedated PSYCHIATRIC: unable to assess Assessment and Plan - Plan MRSA sepsis: persistent bacteremia- wilmer / retained infected graft all cultures remain positive including the one from 06/03 - sustained bacteremia: 2 cultures by 6 days Indwelling prosthetic vascular device (complex AV graft extending to R atrium ) Infected PD vascuklar synthetic graft: abscess vs infected hematoma - sp partial removal Cultures growing C.albicans along with MRSA Sepsis, septic shock; clincially resolving ESRD, on HD Acute VDRF; sp reintubation PNA, GNBs. Both isolates S to CFTX MRSA PNA Persistend hypotensiotn, back on pressors Clearly another septic episode: persistent graft infx vs new infection pt remains critical and unstable wioth persistent hypotensio requiring pressors, dose increased to 13 mcgs cont vancomycin: keep trough 15-20 chk vanco level mon cont rifampin chk LFTs cont gentamicin for now cont fluconazol repeat BC fu sputum clx US RUE Needs removal of the remainder of the graft to control sepsis and bacteremia
[2018-06-06 19:58] LABS: Albumin 3.9 g/dL (3.4-5.0); Total Protein 8.5 g/dL (6.4-8.2)
--- NOTE | 2018-06-06 20:33 | US ---
EXAM DATE: 06/06/2018 8:29 PM EDT AGE/SEX: 73 years / Male INDICATIONS: Excision of right upper extremity infected graft. Evaluate for fluid collection. CLINICAL DATA: This is the patient's subsequent encounter. Patient reports that signs and symptoms h ave been present for 1 week and indicates a pain score of Nonresponsive. MEDICAL/SURGICAL HISTORY: Sepsis. Hypertension. Diabetes. End stage renal disease on dialysi s. Venous collateral circulation. Obesity. . Multiple AV dialysis graft revisions. COMPARISON: No prior exams available for comparison. FINDINGS: There is a complex fluid collection measures 4.7 x 2.5 x 1.4 cm around the patient's upper extremity graft. CONCLUSION: 1. Nonspecific complex fluid collection could be postprocedural change, however infectious proces s is not excluded. Electronically signed by: Prisca Fofana MD 06/06/2018 8:32 PM EDT
[2018-06-07] MEDS: Albumin Human 25% Inj 100 ML IV.SIG SCH ×2 (01:06→11:27)
[2018-06-07] MEDS: Sodium Chlor 0.9% Inj 100 ML IV.SIG SCH ×13 (01:07→22:25)
[2018-06-07] MEDS: Insulin NovoLOG Aspart Correctional Sugar Inj SQ SCH ×6 (01:54→20:59)
--- NOTE | 2018-06-07 04:16 | XR ---
EXAM DATE: 06/07/2018 4:12 AM EDT AGE/SEX: 73 years / Male INDICATIONS: Shortness of breath, possible pulmonary disease. CLINICAL DATA: This is the patient's subsequent encounter. Patient reports that signs and symptoms h ave been present for 1 week and indicates a pain score of Nonresponsive. MEDICAL/SURGICAL HISTORY: . Sepsis. Hypertension. Diabetes. End stage renal disease . Multipl e AV dialysis graft revisions [place] [facility] [place]. . FINDINGS: A single AP view of the chest demonstrates interval worsening consolidation involving the left lung. There is near complete consolidation of the left lung. A small portion of aerated apex remains. Right lung is clear. Heart is normal in size. Loculated effusion suspected involving the left hemithorax. No effusion on the right. Endotracheal tube tip is 3 cm from the kimberley. Nasogastric tube courses off the inferior margin of the film. A vascular stent overlies the right subclavian region. CONCLUSION: Worsening consolidation involving the left lung with suspected loculated left effusion. Electronically signed by: Clinton Melendez MD 06/07/2018 4:15 AM EDT
[2018-06-07 04:50] LABS: Baso # (Auto) 0.1 th/mm3 (0.0-0.2); Baso % (Auto) 0.7 % (0.0-2.0); Eos # (Auto) 0.2 th/mm3 (0.0-0.4); Eos % (Auto) 1.8 % (0.0-4.0); Hematocrit 21.2 % (39.0-51.0); Hemoglobin 7.1 gm/dL (13.0-17.0); Lymph # (Auto) 1.4 th/mm3 (1.0-4.8); Lymph % (Auto) 14.5 % (9.0-44.0); Mean Corpuscular HGB Conc 33.2 % (32.0-36.0); Mean Corpuscular Hemoglobin 29.2 pg (27.0-34.0); Mean Platelet Volume 8.4 fL (7.0-11.0); Mono % (Auto) 10.1 % (0.0-8.0); Neut % (Auto) 72.9 % (16.0-70.0); Platelet Count 296 th/mm3 (150-450); Red Blood Count 2.41 mil/mm3 (4.50-5.90); Red Cell Distribution Width 18.5 % (11.6-17.2); White Blood Count 9.6 th/mm3 (4.0-11.0)
[2018-06-07 05:12] LABS: Alanine Aminotransferase 11 U/L (12-78); Albumin 3.5 g/dL (3.4-5.0); Alkaline Phosphatase 80 U/L (45-117); Anion Gap 17 meq/L (5-15); Aspartate Aminotransferase 5 U/L (15-37); Blood Urea Nitrogen 69 mg/dL (7-18); Calcium 10.1 mg/dL (8.5-10.1); Chloride 97 meq/L (98-107); Glomerular Filtration Rate 8 mL/min (>89); Glucose,Random 285 mg/dL (74-106); Magnesium 2.4 mg/dL (1.5-2.5); Phosphorus 7.7 mg/dL (2.5-4.9); Potassium 3.6 meq/L (3.5-5.1); Sodium 137 meq/L (136-145); Total Protein 8.4 g/dL (6.4-8.2)
[2018-06-07 05:52] LABS: ABG Base Excess -4.3 mmol/L (-2-2); ABG PCO2 37 mmHg (38-42); ABG PO2 107 mmHG (61-120)
[2018-06-07] MEDS: Propofol 1000 mg/100 ml Inj 1,000 MG/100 ML BOTTLE IV.CONT PRN ×3 (06:42→22:33)
[2018-06-07] MEDS: Hypromellose 0.3% Opth Gel 10 GM Bottle EACH EYE SCH ×2 (08:34→20:58)
[2018-06-07] MEDS: Heparin - SQ 10,000 UNITS/ML Vial SQ SCH ×2 (08:34→20:58)
[2018-06-07] MEDS: Calcium Acetate 667 MG Capsule PO SCH ×3 (08:35→18:55)
[2018-06-07] MEDS: Mupirocin 2% Nasal Oint Topical Syringe EACH NARE SCH ×2 (08:35→20:58)
[2018-06-07] MEDS: Senna/Docusate Sodium 8.6/50 MG Tablet PO SCH ×2 (08:37→21:00)
--- NOTE | 2018-06-07 09:03 | P.PNVS ---
Subjective Post Op Day #: 10 Procedure: Excision of arm and neck grafts, grossly infected Subjective/Hospital Course: back on pressors - norepi at 7 failed extubation several days ago, resting on vent off sev L on HD yesterday persistent bacteremia Objective Neuro: sedated, VAN purposefully off sedation Pulmonary: on vent, failed extubation CXR worse with L LE consolidation 7.36/37/107/20/-4.3 Cardiac: pressors slightly down FEN/GI: narciso TF and intermittent HD ID Antibiotics (date/duration): most recent blood cultures negative - pending Heme: Hct 21 plt 296 Vascular: R neck incision ok Laboratory Results - last 24 hr 06/06/18 06/06/18 06/06/18 05:20 11:16 16:03 WBC RBC Hgb Hct MCV MCH MCHC RDW Plt Count MPV Neut % (Auto) Lymph % (Auto) [place] % (Auto) Eos % (Auto) Baso % (Auto) Neut # (Auto) Lymph # (Auto) [place] # (Auto) Eos # (Auto) Baso # (Auto) WBC Differential Differential Comment Puncture Site Patient Temperature O2 Saturation ABG pH ABG pCO2 ABG pO2 ABG HCO3 ABG O2 Content ABG Base Excess ABG Methemoglobin Hemoglobin Carboxyhemoglobin O2 Delivery Device Vent Setting Inspired O2 Critical Value Sodium Potassium Chloride Carbon Dioxide Anion Gap BUN Creatinine Estimated GFR POC Glucose 236 H 226 H Random Glucose Calcium Phosphorus Magnesium Total Bilirubin 0.9 Direct Bilirubin 0.4 H Indirect Bilirubin 0.5 AST 12 L ALT 10 L Alkaline Phosphatase 63 Total Protein 8.5 H Albumin 3.9 06/06/18 06/07/18 06/07/18 20:38 01:48 04:07 WBC 9.6 RBC 2.41 L Hgb 7.1 L Hct 21.2 L MCV 88.0 MCH 29.2 MCHC 33.2 RDW 18.5 H Plt Count 296 MPV 8.4 Neut % (Auto) 72.9 H Lymph % (Auto) 14.5 [place] % (Auto) 10.1 H Eos % (Auto) 1.8 Baso % (Auto) 0.7 Neut # (Auto) 7.0 Lymph # (Auto) 1.4 [place] # (Auto) 1.0 H Eos # (Auto) 0.2 Baso # (Auto) 0.1 WBC Differential . Differential Comment Auto diff final Puncture Site Patient Temperature O2 Saturation ABG pH ABG pCO2 ABG pO2 ABG HCO3 ABG O2 Content ABG Base Excess ABG Methemoglobin Hemoglobin Carboxyhemoglobin O2 Delivery Device Vent Setting Inspired O2 Critical Value Sodium Potassium Chloride Carbon Dioxide Anion Gap BUN Creatinine Estimated GFR POC Glucose 270 H 346 H Random Glucose Calcium Phosphorus Magnesium Total Bilirubin Direct Bilirubin Indirect Bilirubin AST ALT Alkaline Phosphatase Total Protein Albumin 06/07/18 06/07/18 06/07/18 04:07 04:43 05:37 WBC RBC Hgb Hct MCV MCH MCHC RDW Plt Count MPV Neut % (Auto) Lymph % (Auto) [place] % (Auto) Eos % (Auto) Baso % (Auto) Neut # (Auto) Lymph # (Auto) [place] # (Auto) Eos # (Auto) Baso # (Auto) WBC Differential Differential Comment Puncture Site Art line Patient Temperature 98.6 O2 Saturation 95 ABG pH 7.36 L ABG pCO2 37 L ABG pO2 107 ABG HCO3 20 L ABG O2 Content 8.8 L ABG Base Excess -4.3 L ABG Methemoglobin 1.9 Hemoglobin 6.4 L* Carboxyhemoglobin 1.3 O2 Delivery Device Ventilator Vent Setting Prvc/ac Inspired O2 40 Critical Value Yes Sodium 137 Potassium 3.6 Chloride 97 L Carbon Dioxide 23.0 Anion Gap 17 H BUN 69 H Creatinine 8.19 H Estimated GFR 8 L POC Glucose 332 H Random Glucose 285 H D Calcium 10.1 Phosphorus 7.7 H Magnesium 2.4 Total Bilirubin 0.6 Direct Bilirubin Indirect Bilirubin AST 5 L ALT 11 L Alkaline Phosphatase 80 Total Protein 8.4 H Albumin 3.5 06/07/18 07:46 WBC RBC Hgb Hct MCV MCH MCHC RDW Plt Count MPV Neut % (Auto) Lymph % (Auto) [place] % (Auto) Eos % (Auto) Baso % (Auto) Neut # (Auto) Lymph # (Auto) [place] # (Auto) Eos # (Auto) Baso # (Auto) WBC Differential Differential Comment Puncture Site Patient Temperature O2 Saturation ABG pH ABG pCO2 ABG pO2 ABG HCO3 ABG O2 Content ABG Base Excess ABG Methemoglobin Hemoglobin Carboxyhemoglobin O2 Delivery Device Vent Setting Inspired O2 Critical Value Sodium Potassium Chloride Carbon Dioxide Anion Gap BUN Creatinine Estimated GFR POC Glucose 225 H Random Glucose Calcium Phosphorus Magnesium Total Bilirubin Direct Bilirubin Indirect Bilirubin AST ALT Alkaline Phosphatase Total Protein Albumin Microbiology 06/05/18 16:00 Gram Stain - Final Wound - Incision Wound Culture - Preliminary No growth in 24 hours 06/05/18 06:10 Aerobic Blood Culture - Preliminary Blood - Peripheral No growth in 1 day Anaerobic Blood Culture - Preliminary No growth in 1 day 06/05/18 06:19 Aerobic Blood Culture - Preliminary Blood - Peripheral No growth in 1 day Anaerobic Blood Culture - Preliminary No growth in 1 day 06/04/18 08:25 Aerobic Blood Culture - Preliminary Blood - Peripheral S. aureus MRSA Anaerobic Blood Culture - Preliminary No growth in 2 days 06/04/18 08:20 Aerobic Blood Culture - Preliminary Blood - Peripheral No growth in 2 days Anaerobic Blood Culture - Preliminary No growth in 2 days 06/01/18 14:23 Aerobic Blood Culture - Final Blood - Peripheral S. aureus MRSA Anaerobic Blood Culture - Final No growth in 5 days 06/01/18 14:29 Aerobic Blood Culture - Final Blood - Peripheral S. aureus MRSA Anaerobic Blood Culture - Final No growth in 5 days Impressions Upper Extremity Ultrasound 06/06/18 00:00 CONCLUSION: 1. Nonspecific complex fluid collection could be postprocedural change, however infectious process is not excluded. Chest X-Ray 06/07/18 06:00 CONCLUSION: Worsening consolidation involving the left lung with suspected loculated left effusion. Assessment and Plan - Assessment (1) Septic shock Code(s): A41.9 - Sepsis, unspecified organism; R65.21 - Severe sepsis with septic shock Status: Deleted (2) Arteriovenous graft infection Code(s): T82.7XXA - Infection and inflammatory reaction due to other cardiac and vascular devices, implants and grafts, initial encounter Status: Deleted - Plan POD#10 s/p excision of R neck and arm graft on pressors but stable, worse L lung consolidation 1. Continue vent wean and work towards extubation again 2. continue to lighten sedation 3. continue TF 4. Wean pressors, would favor gentle HD 5. W to D neck wound 6. ultimately if bacteremia persists, will remove defunctionalized remnant graft from R UE - potentially early next week 7. Rec tx PRBC 8. Consider bronchoscopy
[2018-06-07] MEDS: Pantoprazole Inj 40 MG Vial IV.PUSH SCH (11:27)
--- NOTE | 2018-06-07 12:06 | P.PNNP ---
Subjective Interval history: Remains intubated, sedated Physical Exam Vital signs: Vital Signs 06/06/18 12:54 06/06/18 15:00 06/06/18 15:58 Temperature 99 F Pulse Rate 91 H 90 Respiratory Rate 20 17 16 Blood Pressure 81/39 L Pulse Oximetry 96 95 06/06/18 15:59 06/06/18 19:00 06/06/18 20:40 Temperature 97.7 F Pulse Rate 95 H Respiratory Rate 16 17 16 Blood Pressure 141/54 H Pulse Oximetry 97 99 06/06/18 20:47 06/06/18 23:00 06/06/18 23:50 Temperature 99.1 F Pulse Rate 93 H 90 Respiratory Rate 16 16 21 Blood Pressure 140/54 L Pulse Oximetry 99 98 06/07/18 03:00 06/07/18 04:09 06/07/18 04:12 Temperature 98.8 F Pulse Rate 95 H 93 H Respiratory Rate 17 17 20 Blood Pressure 118/53 L Pulse Oximetry 98 100 06/07/18 07:00 06/07/18 10:50 06/07/18 10:51 Temperature 97.3 F L Pulse Rate 86 85 Respiratory Rate 17 17 16 Blood Pressure 128/53 L Pulse Oximetry 99 100 Intake & Output 06/06/18 06/07/18 06/07/18 18:59 06:59 18:59 Intake Total 1388 / 1388 999 / 999 207 / 207 Output Total 0 / 0 Balance 1388 / 1388 999 / 999 207 / 207 Weight 131.4 kg Intake: IV 1004 / 1004 712 / 712 207 / 207 Diprivan 1000 mg/100 ml Inj 1, 184 / 184 143 / 143 000 mg In 100 ml @ 5 MCG/KG/MIN 3.87 mls/hr IV.CONT TITRATE PRN Rx#:[id number] Flexbumin 25% Inj 100 ML @ 60 100 / 100 100 / 100 mls/hr IV.SIG Q12H [facility] Rx#: [id number] Diflucan 200 mg Premix Bag 100 100 / 100 ML @ 100 mls/hr IV.SIG Q24H [facility] Rx#:[id number] Levophed-Dextrose 4 mg/250 ml 720 / 720 369 / 369 207 / 207 Drip 4 mg In 250 ml @ 2 MCG/MIN 7.5 mls/hr IV.SIG TITRATE PRN Rx#:[id number] Tube Feeding 264 / 264 287 / 287 Tube Irrigant 120 / 120 Output: Urine 0 / 0 Other: Date of Last Bowel Movement 06/06/18 06/07/18 06/07/18 # Bowel Movements 1 - Constitutional no acute distress - Routine HEENT Exam Head: Present: normocephalic Eye: Present: EOMI ENT: Present: mucous membranes moist - Routine Neck Exam Present: supple - Routine Respiratory Exam Present: patient mechanically ventilated - Routine Cardiovascular Exam Present: RRR - Routine Abdominal Exam Present: soft - Routine Skin Exam Present: intact - Routine Psychiatric Exam Present: unable to assess - Urinary Catheter Management Suprapubic Cath placed during this visit: no Assessment and Plan - Assessment (1) End stage renal disease on dialysis Code(s): N18.6 - End stage renal disease; Z99.2 - Dependence on renal dialysis Status: Acute (2) Acute hypoxemic respiratory failure Code(s): J96.01 - Acute respiratory failure with hypoxia Status: Deleted (3) Arteriovenous graft infection Code(s): T82.7XXA - Infection and inflammatory reaction due to other cardiac and vascular devices, implants and grafts, initial encounter Status: Deleted (4) Atrial fibrillation with RVR Code(s): I48.91 - Unspecified atrial fibrillation Status: Deleted (5) Hemodialysis access, AV graft Code(s): Z99.2 - Dependence on renal dialysis Status: Acute - Plan Patient has sepsis and undergoing treatment with IV vancomycin He is scheduled to do dialysis, Friday and Friday HD done Friday, next HD Friday. Apparent HeRO infection and MRSA: Removal of previous left IJ port, s/p partial removal for right arm graft and HeRO outflow component. Ongoing hypotension - follow with ID and Vascular Ongoing anemia - transfuse 2u PRBCs with dialysis tomorrow. 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 Subsequent revision with new graft component 12/2017. Placement of left IJ port 04/2018 HeRO thrombectomy 04/17/2018 with thrombosis attributed to hypotension ( on midodrine outpatient) Normal HeRO Doppler 05/19/2018 with flow volume 1.6L/min. Once all issues are stabilized and infection controlled, may need eventual transition of femoral catheter to left IJ tunneled catheter, and possible left arm venogram and mapping for access as an outpatient. However remains critically ill. Continue with current lines at this time.
[2018-06-07] MEDS: Beneprotein Powder Packet G-TUBE SCH ×3 (12:23→17:12)
[2018-06-07] MEDS ORDERED: Sodium Chlor 0.9% Inj 250 ML IV.SIG SCH (13:00)
--- NOTE | 2018-06-07 18:44 | XR ---
EXAM DATE: 06/07/2018 6:40 PM EDT AGE/SEX: 73 years / Male INDICATIONS: Congestion CLINICAL DATA: This is the patient's subsequent encounter. Patient reports that signs and symptoms h ave been present for 1 week and indicates a pain score of Nonresponsive. MEDICAL/SURGICAL HISTORY: . Sepsis. Hypertension. Diabetes. End stage renal disease . . Multi ple AV dialysis graft revisions COMPARISON: [facility], CHEST 1V SINGLE AP, 06/07/2018. . FINDINGS: There is improvement in aeration of the left lung since the prior examination and the [place] chest tube is in place. Small left pleural effusion remains. Mixed interstitial and alveolar proce ss is present in the left lung. The right lung is clear except for mild atelectasis right lung base. ET tube is present with tip overlapping approximately 2 above the kimberley.NG tube is present with t ip in the stomach. Right subclavian stent is again seen. CONCLUSION: Improvement in aeration left lung. Electronically signed by: Prisca Fofana MD 06/07/2018 6:43 PM EDT
--- NOTE | 2018-06-07 19:02 | P.PNCC ---
Subjective Subjective Remarks/Hospital Course: Mr. Laguerre is a 73-year-old -[place] male with past medical history significant for end-stage renal disease on hemodialysis, hypertension, complicated vascular access, HeRO graft placement by Dr. Umana on 09/23/2017, revision and PTFE replacement 12/25/17. who presented to the [facility] with probable sepsis and shock. Dr. Umana was contacted and patient was accepted for transfer to CVICU in [facility]. I immediately evaluated the patient on arrival to CVICU. Patient is currently on BiPAP (transported on BiPAP) severely encephalopathic hardly wakes up to sternal rub, with a rapid shallow breathing. BiPAP settings 18/8, 60% FiO2. He is literally unresponsive and not protecting airway. Currently he is on Levophed at 20 mcg/min with a map 65-70. He is also on amiodarone for atrial fibrillation with RVR. Because of lack of airway protection, severe encephalopathy, septic shock and hypoxia I proceeded with endotracheal intubation. His glottic opening was completely occluded with thick secretions, several minutes of suctioning needed to clear the secretions prior to intubation. Postintubation Levophed had to be increased to 30 mcg/min, I also placed an arterial line. All cultures, routine labs and lactic acid pending at this time. I have started him on vancomycin and Zosyn. Discussed case with Dr. Umana extensively Patient was unable to provide any history, according to the RN who got report patient apparently had GI bleed, underwent EGD with cauterization of duodenal ulcer few days ago. Will avoid heparin for DVT prophylaxis. His postintubation ABG showed severe hypoxia with significant AA gradient, metabolic acidosis, and a hemoglobin of 7.6. Currently Levophed is increased to 30 mcg/min, I will transfuse 1 unit PRBC. Chest x-ray shows pulmonary edema will arrange for hemodialysis once his shock is improves. At this time he will not be able to tolerate either hemodialysis or even CVVH 05/28: initially evaluated around 6:30am. patient in refractory septic shock. added epinephrine to levophed and vasopressin. discussed with Dr. Umana. obtained u/s of the right upper extremity which demonstrated fluid collection surrounding the HeRO graft which was heterogenous in nature. added single dose of Amikacin to vanc/zosyn regimen to cover ESBL organisms. patient remains in shock. per verbal report from OSH, blood cultures growing MRSA. taken to OR urgently and large amount of purulent drainage debrided from around catheter. HeRO catheter removed. returns from OR persistently unstable. acidosis worsening. bicarb given. discussed with nephrology and will need CRRT. 05/29: s/p emergent debridement and removal of HeRO graft. today vasopressor doses are somewhat lower, although remains on levo,vaso,epi. lactate cleared. s/ p IHD today with 3L removal. blood growing MRSA. sputum growing e.coli, providencia, MRSA. wbc remains elevated. 05/30: off vasopressors. getting IHD again today. hgb 7 and receiving 1 unit prbc during dialysis. encephalopathy persists, not following commands. 05/31: clinically continues to improve. not following commands, very slow to arouse. bradycardic this AM, but tolerating hemodynamically. HD yesterday with volume removal. 06/01: Clinically improved off all pressors. Sedated with propofol and fentanyl , opens eyes moves extremities not following commands. Plan for hemodialysis today. Initiate CPAP trial after hemodialysis. Persistently bacteremic with MRSA, repeat cultures in 24 hours 06/02: Remains in septic shock, though pressor requirement has improved. Hypotensive bradycardic while getting HD yesterday, started on Dopamine, now at 3 mcg/kg/min. Pus being expressed from upper part of right upper chest [id number] (HeRO AVG removal site). Hypothermic. Some pus around the suprapubic catheter 06/03: Patient had been weaned off all pressors now. Not requiring dopamine for the last 18 hours. However WBC count 13 K today. Persistent bacteremia with MRSA. Source could be right upper extremity graft remnant versus infected invasive catheters. After hemodialysis removal HD catheter, also remove left IJ central line. Repeat blood cultures in 24 hours. Antibiotics broadened by ID yesterday 06/04: Showing some clinical signs of improvement. Not requiring pressors hypothermia has resolved. CBC still pending patient is more awake following commands tolerating CPAP now. Left IJ central line and right femoral Vas-Cath was removed yesterday. Plan for next dialysis is tomorrow will place new Vas- Cath tomorrow a.m. to give 'line holiday'. 06/05: Back on norepinephrine at 10 mics per minute. Blood blood pressure variable, intermittently hypotensive. New Vas-Cath placed in groin functional. Most recent cultures continued to grow gram-positive cocci. Alert when propofol is lightened Subjective: 06/06: Afebrile. Remains on norepinephrine drip at 7 mcg/min. Arousable on the ventilator on sedation vacation. Commands. -3 L with hemodialysis yesterday. Repeat blood cultures done the same. Right upper extremity ultrasound pending.. 06/07: remains on vasopressors. cxr today with new left pleural effusion which is quite large: confirmed on bedside lung ultrasound. pigtail chest tube placed with > 1L old hemothorax. hgb slightly lower, but hemodynamically stable. discussed with nephrology and vascular surgery and most ideal plan would be to transfuse prbc tomorrow with HD. Objective Vital Signs / I&O: Vital Signs 06/06/18 19:00 06/06/18 20:40 06/06/18 20:47 Temperature 36.5 C Pulse Rate 95 H 93 H Respiratory Rate 17 16 16 Blood Pressure 141/54 H Pulse Oximetry 99 06/06/18 23:00 06/06/18 23:50 06/07/18 03:00 Temperature 37.3 C 37.1 C Pulse Rate 90 95 H Respiratory Rate 16 21 17 Blood Pressure 140/54 L 118/53 L Pulse Oximetry 99 98 98 06/07/18 04:09 06/07/18 04:12 06/07/18 07:00 Temperature 36.3 C L Pulse Rate 93 H 86 Respiratory Rate 17 20 17 Blood Pressure 128/53 L Pulse Oximetry 100 99 06/07/18 10:50 06/07/18 10:51 06/07/18 11:00 Temperature 36.7 C Pulse Rate 85 86 Respiratory Rate 17 16 16 Blood Pressure 134/53 L Pulse Oximetry 100 99 06/07/18 15:00 06/07/18 16:20 06/07/18 16:26 Temperature 36.7 C Pulse Rate 87 91 H Respiratory Rate 16 16 18 Blood Pressure 92/50 L Pulse Oximetry 100 98 Intake & Output 06/06/18 06/07/18 06/07/18 18:59 06:59 18:59 Intake Total 1388 / 1388 999 / 999 1091 / 1091 Output Total 0 / 0 50 / 50 Balance 1388 / 1388 999 / 999 1041 / 1041 Weight 131.4 kg Intake: IV 1004 / 1004 712 / 712 574 / 574 Diprivan 1000 mg/100 ml Inj 1, 184 / 184 143 / 143 117 / 117 000 mg In 100 ml @ 5 MCG/KG/MIN 3.87 mls/hr IV.CONT TITRATE PRN Rx#:[id number] Flexbumin 25% Inj 100 ML @ 60 100 / 100 100 / 100 100 / 100 mls/hr IV.SIG Q12H [facility] Rx#: [id number] Diflucan 200 mg Premix Bag 100 100 / 100 ML @ 100 mls/hr IV.SIG Q24H [facility] Rx#:[id number] Levophed-Dextrose 4 mg/250 ml 720 / 720 369 / 369 357 / 357 Drip 4 mg In 250 ml @ 2 MCG/MIN 7.5 mls/hr IV.SIG TITRATE PRN Rx#:[id number] Tube Feeding 264 / 264 287 / 287 427 / 427 Tube Irrigant 120 / 120 90 / 90 Output: Urine 0 / 0 0 / 0 Stool 50 / 50 Other: Date of Last Bowel Movement 06/06/18 06/07/18 06/07/18 # Bowel Movements 1 Result Diagrams: 06/07/18 04:07 06/07/18 04:07 Objective Remarks: GENERAL: 73-year-old -[place] male, lying in bed, intubated, light sedation HEENT: Normocephalic. Atraumatic. Pupils equal, round, reactive. NECK: Trachea is midline. Orotracheal intubation. CHEST: PRVC. equal chest rise. Air entry decreased with few coarse rhonchi bilaterally. Good bilateral air movement. CARDIOVASCULAR: Atrial fibrillation rate controlled. No murmurs. No JVD. ABDOMEN: Soft, nontender, nondistended. No guarding. Supra pubic catheter in place MUSCULOSKELETAL: Right upper extremity s/p debridement upper incision W/D dressing. Pulses 2+. No peripheral edema. NEUROLOGICAL: Opens eyes spontaneously off sedation. Follows commands 4 when light. No focal deficits Assessment and Plan - Assessment and Plan Plan: NEURO/PSYCH: Acute metabolic encephalopathy -currently a propofol drip for sedation while intubated Goal of RASS -2 daily sedation vacation Acetaminophen 650 mg by tube every 6 hours as needed fever -Altered mentation secondary to toxic metabolic encephalopathy from sepsis and hypercapnia RESP: Acute hypoxemic and hypercarbic respiratory failure Pulmonary edema Left Hemothorax HCAP with MRSA- present on admission Ventilator bundle. DuoNeb every 6 hours scheduled and albuterol aerosols every 2 hours as needed -Continue abx. daily SAT/SBT -MRSA pneumonia treatment below ABG/chest x-ray in a.m. s/p 10 Fr pigtail chest tube, left, with >1L old dark blood. 06/07. currently to suction. CV: Septic shock- Acute severe anion gap Metabolic acidosis- resolved Pulmonary edema-resolving Atrial fibrillation with RVR-currently normal sinus rhythm - remains on norepinephrine drip to maintain mean arterial pressure greater than equal to 65mmHg - Dcd stress dose steroids 06/03/2018 - HD daily for volume removal and electrolyte/acid-base abnormalities. -3 L - A. fib rate is controlled and currently normal sinus rhythm, cannot anticoagulate due to history of recent GI bleed GI/HEME/FEN: Recent GI bleed Acute anemia requiring transfusion Leukocytosis Hyperphosphatemia - Nepro tube feeds at 45 cc an hour per attrition recommendations with Vickie protein 1 packet 3 times daily - nutrition consult for TF recs - IV pantoprazole 40 mg IV daily Docusate sodium/senna 1 tablet twice daily for bowel regimen Calcium acetate 667 mg 3 times daily for elevated phosphorus. Recheck in a.m. /renal: End-stage renal disease on hemodialysis HeRO graft placed 09/2017, now removed due to graft infection - Nephrology: Dr. Davidson following - continue HD per nephrology, hemodialysis performed on Friday, plan for HD tomorrow - D/W Dr. davidson, remove suprapubic catheter -New Vas-Cath placed in groin left lower extremity. ID: Septic shock- resolved HeRO graft infection s/p removal HCAP pneumonia- present on admission Persistent MRSA bacteremia -Persistent MRSA bacteremia could be secondary to infected remnant of the AV graft, versus secondary seeding of the catheters -Removed Vas-Cath, and left IJ central line 06/03/18 - ID Dr. Morgan, abx management per ID - Dr. Umana following - 05/27, 05/28, 05/30, 06/01 and 06/04 blood cultures MRSA - 05/27 sputum cultures: providencia, MRSA, e.coli - 06/02 wound with Arlet albicans - cont vancomycin: keep trough 15-20 cont rifampin - Continue fluconazole and gentamicin Discontinue meropenem and micafungin - will need 6 weeks coverage for MRSA graft infection ENDO: Type 2 diabetes Presumed Adrenal insufficiency -Sliding scale insulin with aspart insulin every 4 hours -hydrocortisone discontinued 06/03 PROPH: -Bilateral lower extremity SCDs. Sq Heparin. IV Protonix 40 mg every 12 LINES: -Removed OSH left IJ central line and OSH right femoral Vas-Cath on 06/03/2018 -New left femoral Vas-Cath placement 06/04/18 prior to dialysis -left radial arterial line 05/27: Overall impression: likely shock may take time to resolve. hemothorax likely old and occult, unlikely to be active bleeding. if cultures persistently remain positive, would need to consider removal of distal remnant of graft, but clinically he is making slow improvements, and unlikely to have active ongoing bacteremic graft infection with continued forward progress.
--- NOTE | 2018-06-07 19:03 | P.PCN ---
Date of procedure: 06/07/18 Procedure: Percutaneous Pigtail Tube Thoracostomy Procedure Note Left 10 Malagasy pigtail chest tube Diagnosis: Pleural effusion Indications: Pleural effusion with persistence of respiratory failure Consent: Obtained Anesthesia: 1% lidocaine locally Description of the Procedure: The patient was placed in the supine position. The arm was abducted above the head and secured. The left lateral chest was prepped and draped sterilely to include the axilla and nipple. 1% Lidocaine was infiltrated subcutaneously and into the tissues down to the periosteum of the rib. The 5th intercostal space was identified. A small incision was made using a #11 blade. At the mid-axillary line, a 10 Fr pigtail catheter with stylet and pencil point trochar introducer were inserted superior to the adjacent rib and the pigtail catheter was advanced over the trochar in a modified Seldinger Technique, easily and without resistance. The catheter was connected to a Pleur-o-vac and connected to [id number] suction. The catheter was sutured to the skin using a 3-0 silk sandal suture and an occlusive dressing was applied. There were no immediate complications noted. There was minimal EBL. The patient tolerated the procedure well. Approximately 1000 mL's of dark blood was removed from the left chest. A Chest x-ray has been ordered. I personally performed the procedure.
[2018-06-08] MEDS: Sodium Chlor 0.9% Inj 100 ML IV.SIG SCH ×10 (00:25→17:21)
[2018-06-08] MEDS: Albumin Human 25% Inj 100 ML IV.SIG SCH ×2 (01:33→11:12)
[2018-06-08] MEDS: Pantoprazole Inj 40 MG Vial IV.PUSH SCH ×2 (01:33→11:12)
[2018-06-08] MEDS: Insulin NovoLOG Aspart Correctional Sugar Inj SQ SCH ×7 (01:58→23:49)
[2018-06-08] MEDS: Propofol 1000 mg/100 ml Inj 1,000 MG/100 ML BOTTLE IV.CONT PRN ×5 (03:36→20:20)
[2018-06-08 05:54] LABS: Hemoglobin 6.9 gm/dL (13.0-17.0); Mean Corpuscular HGB Conc 35.1 % (32.0-36.0); Mean Corpuscular Volume 85.7 fL (80.0-100.0); Mean Platelet Volume 8.2 fL (7.0-11.0); Platelet Count 323 th/mm3 (150-450); Red Blood Count 2.31 mil/mm3 (4.50-5.90); Red Cell Distribution Width 17.7 % (11.6-17.2); White Blood Count 8.1 th/mm3 (4.0-11.0)
[2018-06-08 06:06] LABS: Hematocrit 19.8 % (39.0-51.0)
--- NOTE | 2018-06-08 06:06 | XR ---
EXAM DATE: 06/08/2018 6:00 AM EDT AGE/SEX: 73 years / Male INDICATIONS: Shortness of breath. CLINICAL DATA: This is the patient's subsequent encounter. Patient reports that signs and symptoms h ave been present for 1 week and indicates a pain score of Nonresponsive. MEDICAL/SURGICAL HISTORY: . Sepsis. Hypertension. Diabetes. End stage renal disease . . Multi ple AV dialysis graft revisions. COMPARISON: [facility], CHEST 1V SINGLE AP, 06/07/2018. [facility] [place], CHEST 1V SINGLE AP, 06/07/2018. . FINDINGS: Portable AP view of the chest demonstrates a normal-sized cardiac silhouette. Patient is rotated and underinflated. Multiple EKG lines overlie the patient. ETT and nasogastric tube remain present and le ft small bore chest tube overlies the mid to upper hemithorax. No pneumothorax is identified. There i s subsegmental atelectasis the left lung base. There is left mid to lower lung zone airspace consolid ation with left basilar opacity obscuring the left hemidiaphragm. Vascular stent overlies the upper r ight hemithorax. CONCLUSION: Stable chest x-ray with left mid to lower lung zone airspace consolidation and small left pleural eff usion. Left chest tube remains present and no pneumothorax is visualized. Electronically signed by: Jordan Sahni MD 06/08/2018 6:05 AM EDT
[2018-06-08 06:17] LABS: Calcium 9.9 mg/dL (8.5-10.1); Magnesium 2.5 mg/dL (1.5-2.5); Phosphorus 7.3 mg/dL (2.5-4.9); Potassium 3.8 meq/L (3.5-5.1); Vancomycin,Random 26.6 Comment
[2018-06-08] MEDS: Calcium Acetate 667 MG Capsule PO SCH ×3 (08:50→17:21)
[2018-06-08] MEDS: Heparin - SQ 10,000 UNITS/ML Vial SQ SCH ×2 (08:50→21:45)
[2018-06-08] MEDS: Mupirocin 2% Nasal Oint Topical Syringe EACH NARE SCH ×2 (08:50→21:42)
[2018-06-08] MEDS: Senna/Docusate Sodium 8.6/50 MG Tablet PO SCH (08:50)
[2018-06-08] MEDS: Beneprotein Powder Packet G-TUBE SCH ×3 (08:51→17:21)
[2018-06-08] MEDS: Hypromellose 0.3% Opth Gel 10 GM Bottle EACH EYE SCH ×2 (08:52→21:43)
--- NOTE | 2018-06-08 09:14 | P.PNVS ---
Subjective Post Op Day #: 11 Procedure: Excision of arm and neck grafts, grossly infected Subjective/Hospital Course: still on pressors CXR significantly improved with placement of pigtail catheter for effusion sedated, still on vent Objective Neuro: sedated but VAN when aroused Pulmonary: still on vent CXR much better serous output from L chest pigtail may need trach Cardiac: stable pressor req bp ok FEN/GI: Jj TF due for HD today ID Antibiotics (date/duration): broad antibiotics and antifungals will need x 6 weeks ID Cultures: most recent blood cx NGTD Heme: Hct 20 - getting PRBC with HD today Vascular: R neck incision ok Laboratory Results - last 24 hr 06/07/18 06/07/18 06/07/18 11:52 14:06 15:50 WBC RBC Hgb Hct MCV MCH MCHC RDW Plt Count MPV Sodium Potassium Chloride Carbon Dioxide Anion Gap BUN Creatinine Estimated GFR POC Glucose 182 H 206 H Random Glucose Calcium Phosphorus Magnesium Random Vancomycin Blood Type B Positive Antibody Screen Negative MTS Gel Crossmatch See Detail 06/07/18 06/08/18 06/08/18 20:10 01:53 05:25 WBC RBC Hgb Hct MCV MCH MCHC RDW Plt Count MPV Sodium 135 L Potassium 3.8 Chloride 95 L Carbon Dioxide 23.0 Anion Gap 17 H BUN 84 H Creatinine 8.99 H Estimated GFR 7 L POC Glucose 249 H 304 H Random Glucose 269 H Calcium 9.9 Phosphorus 7.3 H Magnesium 2.5 Random Vancomycin 26.6 Blood Type Antibody Screen MTS Gel Crossmatch 06/08/18 06/08/18 06/08/18 05:25 05:32 08:13 WBC 8.1 RBC 2.31 L Hgb 6.9 L* Hct 19.8 L* MCV 85.7 MCH 30.0 MCHC 35.1 RDW 17.7 H Plt Count 323 MPV 8.2 Sodium Potassium Chloride Carbon Dioxide Anion Gap BUN Creatinine Estimated GFR POC Glucose 290 H 258 H Random Glucose Calcium Phosphorus Magnesium Random Vancomycin Blood Type Antibody Screen MTS Gel Crossmatch Microbiology 06/05/18 16:00 Gram Stain - Final Wound - Incision Wound Culture - Preliminary S. aureus MRSA 06/06/18 05:20 Aerobic Blood Culture - Preliminary Blood - Peripheral No growth in 1 day Anaerobic Blood Culture - Preliminary No growth in 1 day 06/06/18 05:40 Aerobic Blood Culture - Preliminary Blood - Peripheral No growth in 1 day Anaerobic Blood Culture - Preliminary No growth in 1 day 06/05/18 06:10 Aerobic Blood Culture - Preliminary Blood - Peripheral No growth in 2 days Anaerobic Blood Culture - Preliminary No growth in 2 days 06/05/18 06:19 Aerobic Blood Culture - Preliminary Blood - Peripheral No growth in 2 days Anaerobic Blood Culture - Preliminary No growth in 2 days 06/04/18 08:25 Aerobic Blood Culture - Final Blood - Peripheral S. aureus MRSA Anaerobic Blood Culture - Preliminary No growth in 3 days 06/04/18 08:20 Aerobic Blood Culture - Preliminary Blood - Peripheral No growth in 3 days Anaerobic Blood Culture - Preliminary No growth in 3 days Impressions Upper Extremity Ultrasound 06/06/18 00:00 CONCLUSION: 1. Nonspecific complex fluid collection could be postprocedural change, however infectious process is not excluded. Chest X-Ray 06/07/18 00:00 CONCLUSION: Improvement in aeration left lung. Chest X-Ray 06/07/18 06:00 CONCLUSION: Worsening consolidation involving the left lung with suspected loculated left effusion. Chest X-Ray 06/08/18 05:00 CONCLUSION: Stable chest x-ray with left mid to lower lung zone airspace consolidation and small left pleural effusion. Left chest tube remains present and no pneumothorax is visualized. Assessment and Plan - Assessment (1) Septic shock Code(s): A41.9 - Sepsis, unspecified organism; R65.21 - Severe sepsis with septic shock Status: Deleted (2) Arteriovenous graft infection Code(s): T82.7XXA - Infection and inflammatory reaction due to other cardiac and vascular devices, implants and grafts, initial encounter Status: Deleted - Plan POD#11 s/p excision of R neck and arm graft on pressors but stable, still on vent 1. Continue vent wean and work towards extubation again may req trach - discussed with Dr. 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 continue to lighten sedation 3. continue TF 4. Wean pressors, would favor gentle HD 5. W to D neck wound 6. ultimately if bacteremia persists, will remove defunctionalized remnant graft from R UE - potentially early next week 7. Rec tx PRBC with HD today
--- NOTE | 2018-06-08 10:18 | P.PNCC ---
Subjective Subjective Remarks/Hospital Course: Mr. Laguerre is a 73-year-old -[place] male with past medical history significant for end-stage renal disease on hemodialysis, hypertension, complicated vascular access, HeRO graft placement by Dr. Umana on 09/23/2017, revision and PTFE replacement 12/25/17. who presented to the [facility] with probable sepsis and shock. Dr. Umana was contacted and patient was accepted for transfer to CVICU in [facility]. I immediately evaluated the patient on arrival to CVICU. Patient is currently on BiPAP (transported on BiPAP) severely encephalopathic hardly wakes up to sternal rub, with a rapid shallow breathing. BiPAP settings 18/8, 60% FiO2. He is literally unresponsive and not protecting airway. Currently he is on Levophed at 20 mcg/min with a map 65-70. He is also on amiodarone for atrial fibrillation with RVR. Because of lack of airway protection, severe encephalopathy, septic shock and hypoxia I proceeded with endotracheal intubation. His glottic opening was completely occluded with thick secretions, several minutes of suctioning needed to clear the secretions prior to intubation. Postintubation Levophed had to be increased to 30 mcg/min, I also placed an arterial line. All cultures, routine labs and lactic acid pending at this time. I have started him on vancomycin and Zosyn. Discussed case with Dr. Umana extensively Patient was unable to provide any history, according to the RN who got report patient apparently had GI bleed, underwent EGD with cauterization of duodenal ulcer few days ago. Will avoid heparin for DVT prophylaxis. His postintubation ABG showed severe hypoxia with significant AA gradient, metabolic acidosis, and a hemoglobin of 7.6. Currently Levophed is increased to 30 mcg/min, I will transfuse 1 unit PRBC. Chest x-ray shows pulmonary edema will arrange for hemodialysis once his shock is improves. At this time he will not be able to tolerate either hemodialysis or even CVVH 05/28: initially evaluated around 6:30am. patient in refractory septic shock. added epinephrine to levophed and vasopressin. discussed with Dr. Umana. obtained u/s of the right upper extremity which demonstrated fluid collection surrounding the HeRO graft which was heterogenous in nature. added single dose of Amikacin to vanc/zosyn regimen to cover ESBL organisms. patient remains in shock. per verbal report from OSH, blood cultures growing MRSA. taken to OR urgently and large amount of purulent drainage debrided from around catheter. HeRO catheter removed. returns from OR persistently unstable. acidosis worsening. bicarb given. discussed with nephrology and will need CRRT. 05/29: s/p emergent debridement and removal of HeRO graft. today vasopressor doses are somewhat lower, although remains on levo,vaso,epi. lactate cleared. s/ p IHD today with 3L removal. blood growing MRSA. sputum growing e.coli, providencia, MRSA. wbc remains elevated. 05/30: off vasopressors. getting IHD again today. hgb 7 and receiving 1 unit prbc during dialysis. encephalopathy persists, not following commands. 05/31: clinically continues to improve. not following commands, very slow to arouse. bradycardic this AM, but tolerating hemodynamically. HD yesterday with volume removal. 06/01: Clinically improved off all pressors. Sedated with propofol and fentanyl , opens eyes moves extremities not following commands. Plan for hemodialysis today. Initiate CPAP trial after hemodialysis. Persistently bacteremic with MRSA, repeat cultures in 24 hours 06/02: Remains in septic shock, though pressor requirement has improved. Hypotensive bradycardic while getting HD yesterday, started on Dopamine, now at 3 mcg/kg/min. Pus being expressed from upper part of right upper chest [id number] (HeRO AVG removal site). Hypothermic. Some pus around the suprapubic catheter 06/03: Patient had been weaned off all pressors now. Not requiring dopamine for the last 18 hours. However WBC count 13 K today. Persistent bacteremia with MRSA. Source could be right upper extremity graft remnant versus infected invasive catheters. After hemodialysis removal HD catheter, also remove left IJ central line. Repeat blood cultures in 24 hours. Antibiotics broadened by ID yesterday 06/04: Showing some clinical signs of improvement. Not requiring pressors hypothermia has resolved. CBC still pending patient is more awake following commands tolerating CPAP now. Left IJ central line and right femoral Vas-Cath was removed yesterday. Plan for next dialysis is tomorrow will place new Vas- Cath tomorrow a.m. to give 'line holiday'. 06/05: Back on norepinephrine at 10 mics per minute. Blood blood pressure variable, intermittently hypotensive. New Vas-Cath placed in groin functional. Most recent cultures continued to grow gram-positive cocci. Alert when propofol is lightened Subjective: 06/06: Afebrile. Remains on norepinephrine drip at 7 mcg/min. Arousable on the ventilator on sedation vacation. Commands. -3 L with hemodialysis yesterday. Repeat blood cultures done the same. Right upper extremity ultrasound pending.. 06/07: remains on vasopressors. cxr today with new left pleural effusion which is quite large: confirmed on bedside lung ultrasound. pigtail chest tube placed with > 1L old hemothorax. hgb slightly lower, but hemodynamically stable. discussed with nephrology and vascular surgery and most ideal plan would be to transfuse prbc tomorrow with HD. 06/08: Remains intubated sedated with propofol. Currently on 8 mcg/min of Levophed but map is above 75. Getting 2 units of PRBC with dialysis for hemoglobin of 6.9. Left pigtail chest tube drained almost 2 L old blood appearing. I will request fluid studies from any residual drainage. CT of the chest to evaluate for any residual fluid. Objective Vital Signs / I&O: Vital Signs 06/07/18 10:50 06/07/18 10:51 06/07/18 11:00 Temperature 98.1 F Pulse Rate 85 86 Respiratory Rate 17 16 16 Blood Pressure 134/53 L Pulse Oximetry 100 99 06/07/18 15:00 06/07/18 16:20 06/07/18 16:26 Temperature 98.1 F Pulse Rate 87 91 H Respiratory Rate 16 16 18 Blood Pressure 92/50 L Pulse Oximetry 100 98 06/07/18 19:00 06/07/18 21:20 06/07/18 21:23 Temperature 98.2 F Pulse Rate 95 H 96 H Respiratory Rate 20 17 16 Blood Pressure 88/59 L Pulse Oximetry 99 99 06/07/18 23:00 06/08/18 00:42 06/08/18 03:00 Temperature 98.3 F 97.9 F Pulse Rate 102 H 99 H Respiratory Rate 22 18 18 Blood Pressure 114/64 88/53 L Pulse Oximetry 100 100 99 06/08/18 03:26 06/08/18 03:31 06/08/18 07:00 Temperature 97.8 F Pulse Rate 100 H 97 H Respiratory Rate 18 18 16 Blood Pressure 119/52 L Pulse Oximetry 99 97 06/08/18 07:45 06/08/18 09:22 Temperature Pulse Rate 80 Respiratory Rate 17 16 Blood Pressure Pulse Oximetry 97 Intake & Output 06/07/18 06/08/18 06/08/18 18:59 06:59 18:59 Intake Total 1091 / 1091 1123 / 1123 550 / 550 Output Total 1850 / 1850 460 / 460 Balance -759 / -759 663 / 663 550 / 550 Weight 130 kg Intake: IV 574 / 574 533 / 533 550 / 550 Diprivan 1000 mg/100 ml Inj 1, 117 / 117 183 / 183 000 mg In 100 ml @ 5 MCG/KG/MIN 3.87 mls/hr IV.CONT TITRATE PRN Rx#:[id number] Flexbumin 25% Inj 100 ML @ 60 100 / 100 200 / 200 mls/hr IV.SIG WITH DIALYSIS PRN Rx#:[id number] Diflucan 200 mg Premix Bag 100 100 / 100 ML @ 100 mls/hr IV.SIG Q24H [facility] Rx#:[id number] Levophed-Dextrose 4 mg/250 ml 357 / 357 350 / 350 Drip 4 mg In 250 ml @ 2 MCG/MIN 7.5 mls/hr IV.SIG TITRATE PRN Rx#:[id number] Vancomycin Inj 1,000 MG In NS 250 / 250 Inj 250 ML @ 250 mls/hr IV.SIG WITH DIALYSIS [facility] Rx#:[id number] Oral 0 / 0 Tube Feeding 427 / 427 470 / 470 Tube Irrigant 90 / 90 120 / 120 Output: Urine 0 / 0 Stool 50 / 50 300 / 300 Urine Amount (Catheter) 0 / 0 Suprapubic 0 / 0 Chest Tube Drainage 1800 / 1800 160 / 160 #1 Left Lower Mid-Axillary 1800 / 1800 160 / 160 Chest Other: Date of Last Bowel Movement 06/07/18 06/07/18 Result Diagrams: 06/08/18 05:25 06/08/18 05:25 Objective Remarks: GENERAL: 73-year-old -L[place] male, lying in bed, intubated, light sedation HEENT: Normocephalic. Atraumatic. Pupils equal, round, reactive. NECK: Trachea is midline. Orotracheal intubation. CHEST: PRVC. equal chest rise. Air entry decreased with few coarse rhonchi bilaterally. Good bilateral air movement. Left pigtail catheter with 2L drainage CARDIOVASCULAR: Atrial fibrillation rate controlled. No murmurs. No JVD. ABDOMEN: Soft, nontender, nondistended. No guarding. Supra pubic catheter in place MUSCULOSKELETAL: Right upper extremity s/p debridement upper incision W/D dressing. Pulses 2+. No peripheral edema. NEUROLOGICAL: Opens eyes spontaneously off sedation. Follows commands 4 when light. No focal deficits Assessment and Plan - Assessment and Plan Plan: NEURO/PSYCH: Acute metabolic encephalopathy -Currently on a propofol drip for sedation while intubated Goal of RASS -2. daily sedation vacation Acetaminophen 650 mg by tube every 6 hours as needed fever -Altered mentation secondary to toxic metabolic encephalopathy from sepsis and hypercapnia RESP: Acute hypoxemic and hypercarbic respiratory failure Pulmonary edema Left Hemothorax HCAP with MRSA- present on admission Ventilator bundle. DuoNeb every 6 hours scheduled and albuterol aerosols every 2 hours as needed -Continue abx. daily SAT/SBT -MRSA pneumonia treatment below Chest x-ray in a.m. s/p 10 Fr pigtail chest tube, left, with >1L old dark blood. 06/07. currently to suction. Send fluid studies, Ct chest evaluate residual fluid collection CV: Septic shock Acute severe anion gap Metabolic acidosis- resolved Pulmonary edema-resolving Atrial fibrillation with RVR-currently normal sinus rhythm - remains on norepinephrine drip to maintain mean arterial pressure greater than equal to 65mmHg - Dcd stress dose steroids 06/03/2018 - HD daily for volume removal and electrolyte/acid-base abnormalities. -3 L - A. fib rate is controlled and currently normal sinus rhythm, cannot anticoagulate due to history of recent GI bleed GI/HEME/FEN: Recent GI bleed Acute anemia requiring transfusion Leukocytosis Hyperphosphatemia -Transfue 2U PRBC with HD today - Nepro tube feeds at 45 cc an hour per attrition recommendations with [place] protein 1 packet 3 times daily - nutrition consult for TF recs - IV pantoprazole 40 mg IV daily Docusate sodium/senna 1 tablet twice daily for bowel regimen Calcium acetate 667 mg 3 times daily for elevated phosphorus. Recheck in a.m. /renal: End-stage renal disease on hemodialysis HeRO graft placed 09/2017, now removed due to graft infection - Nephrology: Dr. Davidson following - continue HD per nephrology, hemodialysis performed on Friday, plan for HD tomorrow - D/W Dr. davidson, remove suprapubic catheter -New Vas-Cath placed in groin left lower extremity. ID: Septic shock HeRO graft infection s/p removal HCAP pneumonia- present on admission Persistent MRSA bacteremia -Persistent MRSA bacteremia could be secondary to infected remnant of the AV graft, versus secondary seeding of the catheters -Removed Vas-Cath, and left IJ central line 06/03/18 -Last culture from 06/06 negative to date - ID Dr. Morgan, abx management per ID - Dr. Umana following - 05/27, 05/28, 05/30, 06/01 and 06/04 blood cultures MRSA - 05/27 sputum cultures: providencia, MRSA, e.coli - 06/02 wound with Arlet albicans - cont vancomycin: keep trough 15-20 cont rifampin - Continue fluconazole and gentamicin Discontinued meropenem and micafungin - will need 6 weeks coverage for MRSA graft infection ENDO: Type 2 diabetes Presumed Adrenal insufficiency -Sliding scale insulin with aspart insulin every 4 hours -hydrocortisone discontinued 06/03 PROPH: -Bilateral lower extremity SCDs. Sq Heparin. IV Protonix 40 mg every 12 LINES: -Removed OSH left IJ central line and OSH right femoral Vas-Cath on 06/03/2018 -New left femoral Vas-Cath placement 06/04/18 -left radial arterial line 05/27: -Place new central line today due to ongoing pressor requirement Overall impression: likely shock may take time to resolve. hemothorax likely old and occult, unlikely to be active bleeding. if cultures persistently remain positive, would need to consider removal of distal remnant of graft, but clinically he is making slow improvements, and unlikely to have active ongoing bacteremic graft infection with continued forward progress. Code Status: Full
--- NOTE | 2018-06-08 11:40 | P.PCN ---
Date of procedure: 06/08/18 Pre-op diagnosis: Septic shock Post-op diagnosis: same Procedure: US guided LIJ central line Central line checklist completed, timeout completed. I wore a surgical cap, mask with protective eyewear, full gown and sterile gloves throughout the procedure. Left neck region was prepped using chlorhexidine scrub and draped in sterile fashion. The LIJ was identified using the ultrasound. Anesthesia was achieved over the vein using 1% lidocaine. The introducer needle was inserted into the LIJ under direct ultrasound visualization. Venous blood was withdrawn. The syringe was removed and a guidewire was advanced into the introducer needle. A small incision was made at the skin surface with a scalpel and the introducer needle was exchanged for a dilator over the guidewire. After appropriate dilation was obtained, the dilator was exchanged over the wire for a triple lumen, 7F, 20 CM antibiotic coated central venous catheter. The wire was removed and the catheter was sutured in place at 17 cm. A sterile central line dressing was placed over the catheter at the insertion site. The patient tolerated the procedure without any hemodynamic compromise. At time of procedure completion, all ports aspirated and flushed properly. Post-procedure chest x-ray is pending at this time. Surgeon: Corey Ortega Estimated blood loss (mL): 2 Pathology: none sent Condition: critical Disposition: ICU
--- NOTE | 2018-06-08 12:11 | P.PNNP ---
Subjective Interval history: Patient is on the ventilator chest tube on the left side Physical Exam Vital signs: Vital Signs 06/07/18 15:00 06/07/18 16:20 06/07/18 16:26 Temperature 98.1 F Pulse Rate 87 91 H Respiratory Rate 16 16 18 Blood Pressure 92/50 L Pulse Oximetry 100 98 06/07/18 19:00 06/07/18 21:20 06/07/18 21:23 Temperature 98.2 F Pulse Rate 95 H 96 H Respiratory Rate 20 17 16 Blood Pressure 88/59 L Pulse Oximetry 99 99 06/07/18 23:00 06/08/18 00:42 06/08/18 03:00 Temperature 98.3 F 97.9 F Pulse Rate 102 H 99 H Respiratory Rate 22 18 18 Blood Pressure 114/64 88/53 L Pulse Oximetry 100 100 99 06/08/18 03:26 06/08/18 03:31 06/08/18 07:00 Temperature 97.8 F Pulse Rate 100 H 97 H Respiratory Rate 18 18 16 Blood Pressure 119/52 L Pulse Oximetry 99 97 06/08/18 07:45 06/08/18 09:22 Temperature Pulse Rate 80 Respiratory Rate 17 16 Blood Pressure Pulse Oximetry 97 Intake & Output 06/07/18 06/08/18 06/08/18 18:59 06:59 18:59 Intake Total 1091 / 1091 1123 / 1123 650 / 650 Output Total 1850 / 1850 460 / 460 Balance -759 / -759 663 / 663 650 / 650 Weight 130 kg Intake: IV 574 / 574 533 / 533 650 / 650 Diprivan 1000 mg/100 ml Inj 1, 117 / 117 183 / 183 100 / 100 000 mg In 100 ml @ 5 MCG/KG/MIN 3.87 mls/hr IV.CONT TITRATE PRN Rx#:[id number] Flexbumin 25% Inj 100 ML @ 60 100 / 100 200 / 200 mls/hr IV.SIG WITH DIALYSIS PRN Rx#:[id number] Diflucan 200 mg Premix Bag 100 100 / 100 ML @ 100 mls/hr IV.SIG Q24H [facility] Rx#:[id number] Levophed-Dextrose 4 mg/250 ml 357 / 357 350 / 350 Drip 4 mg In 250 ml @ 2 MCG/MIN 7.5 mls/hr IV.SIG TITRATE PRN Rx#:[id number] Vancomycin Inj 1,000 MG In NS 250 / 250 Inj 250 ML @ 250 mls/hr IV.SIG WITH DIALYSIS [facility] Rx#:[id number] Oral 0 / 0 Tube Feeding 427 / 427 470 / 470 Tube Irrigant 90 / 90 120 / 120 Output: Urine 0 / 0 Stool 50 / 50 300 / 300 Urine Amount (Catheter) 0 / 0 Suprapubic 0 / 0 Chest Tube Drainage 1800 / 1800 160 / 160 #1 Left Lower Mid-Axillary 1800 / 1800 160 / 160 Chest Other: Date of Last Bowel Movement 06/07/18 06/07/18 - Constitutional no acute distress - Routine HEENT Exam Head: Present: normocephalic - Routine Respiratory Exam Present: patient mechanically ventilated, wheezes - Routine Cardiovascular Exam Present: RRR - Routine Abdominal Exam Present: soft, normoactive bowel sounds - Routine Extremities Exam Present: edema - Urinary Catheter Management Suprapubic Cath placed during this visit: no Assessment and Plan - Assessment (1) End stage renal disease on dialysis Code(s): N18.6 - End stage renal disease; Z99.2 - Dependence on renal dialysis Status: Acute (2) Acute hypoxemic respiratory failure Code(s): J96.01 - Acute respiratory failure with hypoxia Status: Deleted (3) Arteriovenous graft infection Code(s): T82.7XXA - Infection and inflammatory reaction due to other cardiac and vascular devices, implants and grafts, initial encounter Status: Deleted (4) Atrial fibrillation with RVR Code(s): I48.91 - Unspecified atrial fibrillation Status: Deleted (5) Hemodialysis access, AV graft Code(s): Z99.2 - Dependence on renal dialysis Status: Acute - Plan Patient has sepsis and undergoing treatment with IV vancomycin He is scheduled to do dialysis, Friday and Friday HD done Friday, next HD today Apparent HeRO infection and MRSA: Removal of previous left IJ port, s/p partial removal for right arm graft and HeRO outflow component. Ongoing hypotension - follow with ID and Vascular Ongoing anemia - transfuse 2u PRBCs with dialysis today. -- Right subclavian occlusion with right brachiobasilic AV fistula - HeRO placed 09/2017 from axillary vein, with outflow via right external jugular vein. Subsequent revision with new graft component 12/2017. Placement of left IJ port 04/2018 HeRO thrombectomy 04/17/2018 with thrombosis attributed to hypotension ( on midodrine outpatient) Normal HeRO Doppler 05/19/2018 with flow volume 1.6L/min. Once all issues are stabilized and infection controlled, may need eventual transition of femoral catheter to left IJ tunneled catheter, and possible left arm venogram and mapping for access as an outpatient. However remains critically ill. Continue with current lines at this time.
--- NOTE | 2018-06-08 12:15 | XR ---
EXAM DATE: 06/08/2018 12:08 PM EDT AGE/SEX: 73 years / Male INDICATIONS: Central line placement. CLINICAL DATA: This is the patient's subsequent encounter. Patient reports that signs and symptoms h ave been present for 1 day and indicates a pain score of Nonresponsive. MEDICAL/SURGICAL HISTORY: . Sepsis. Hypertension. Diabetes. End stage renal disease . Multipl e AV dialysis graft revisions. COMPARISON: [facility] [place], CHEST 1V SINGLE AP, 06/08/2018. . FINDINGS: There is increasing consolidation on the left. Patchy right lung airspace disease is also seen. Enter ic tube courses beneath the diaphragm. Left jugular line tip overlies the SVC. Endotracheal tube tip at the level of the clavicles. CONCLUSION: Increasing airspace disease on the left. Central line as above. Electronically signed by: Sid Sandoval MD 06/08/2018 12:14 PM EDT
[2018-06-08] MEDS: Sod Chloride 0.9% Inj 1,000 ML OTHER PRN (13:29)
[2018-06-08] MEDS: Heparin 10,000 UNITS/10 ML Vial (for IV use) OTHER PRN (13:30)
[2018-06-08] MEDS: Vancomycin Inj 1,000 MG in Sodium Chlor 0.9% Inj 250 ML IV.SIG SCH (13:51)
[2018-06-08 17:54] LABS: Total Protein,Pleural Fluid 6.4 gm/dL
[2018-06-08 18:29] LABS: Eosinophils,Pleural Fluid 5 %; Lymphocytes,Pleural Fluid 3 %; Neutrophils,Pleural Fluid 92 %; RBC,Pleural Fluid 139750 /mm3 (0-0)
--- NOTE | 2018-06-08 19:37 | P.PNID ---
Subjective Remarks: afebrile On pressors, Levaphed down to 8 mcgs Last + blood clx from 06/[address] placement On vent Antibiotics: vanco fluconazole rifampin Allergies/Adverse Reactions: Allergies No Known Allergies Allergy (Unknown, Uncoded 12/24/17 14:57) Objective Vital Signs 06/07/18 21:20 06/07/18 21:23 06/07/18 23:00 Temperature 98.3 F Pulse Rate 96 H 102 H Respiratory Rate 17 16 22 Blood Pressure 114/64 Pulse Oximetry 99 100 06/08/18 00:42 06/08/18 03:00 06/08/18 03:26 Temperature 97.9 F Pulse Rate 99 H 100 H Respiratory Rate 18 18 18 Blood Pressure 88/53 L Pulse Oximetry 100 99 06/08/18 03:31 06/08/18 07:00 06/08/18 07:45 Temperature 97.8 F Pulse Rate 97 H Respiratory Rate 18 16 17 Blood Pressure 119/52 L Pulse Oximetry 99 97 97 06/08/18 09:22 06/08/18 11:00 06/08/18 13:10 Temperature 98.0 F Pulse Rate 80 89 Respiratory Rate 16 16 16 Blood Pressure 121/58 L Pulse Oximetry 99 97 06/08/18 13:26 06/08/18 13:52 06/08/18 15:00 Temperature 97.6 F 97.6 F 97.8 F Pulse Rate 73 75 86 Respiratory Rate 16 16 16 Blood Pressure 106/54 L 100/58 L 131/61 Pulse Oximetry 99 06/08/18 16:25 06/08/18 16:45 Temperature Pulse Rate 75 Respiratory Rate 17 17 Blood Pressure Pulse Oximetry 97 Intake & Output 06/08/18 06/08/18 06/09/18 06:59 18:59 06:59 Intake Total 1123 / 1123 2740 / 2740 Output Total 460 / 460 4000 / 4000 Balance 663 / 663 -1260 / -1260 Weight 130 kg Intake: IV 533 / 533 2450 / 2450 Diprivan 1000 mg/100 ml Inj 1, 183 / 183 300 / 300 000 mg In 100 ml @ 5 MCG/KG/MIN 3.87 mls/hr IV.CONT TITRATE PRN Rx#:[id number] Flexbumin 25% Inj 100 ML @ 60 300 / 300 mls/hr IV.SIG Q12H [facility] Rx#: [id number] Diflucan 200 mg Premix Bag 100 100 / 100 ML @ 100 mls/hr IV.SIG Q24H [facility] Rx#:[id number] Levophed-Dextrose 4 mg/250 ml 350 / 350 250 / 250 Drip 4 mg In 250 ml @ 2 MCG/MIN 7.5 mls/hr IV.SIG TITRATE PRN Rx#:[id number] Vancomycin Inj 1,000 MG In NS 500 / 500 Inj 250 ML @ 250 mls/hr IV.SIG WITH DIALYSIS [facility] Rx#:[id number] NS Inj 1,000 ML @ 200 mls/hr 1000 / 1000 OTHER .Q5H PRN Rx#:[id number] Oral 0 / 0 Tube Feeding 470 / 470 230 / 230 Tube Irrigant 120 / 120 60 / 60 Intake (Blood Product) Amt 0 / 0 Rbc As-3 Leukoreduced Unit 0 / 0 [id number] Rbc As-3 Leukoreduced Unit 0 / 0 [id number] Output: Urine 0 / 0 Stool 300 / 300 0 / 0 Hemodialysis Amount 4000 / 4000 Urine Amount (Catheter) 0 / 0 Suprapubic 0 / 0 Chest Tube Drainage 160 / 160 #1 Left Lower Mid-Axillary 160 / 160 Chest Other: Date of Last Bowel Movement 06/07/18 06/06/18 05:20 Blood - Peripheral Aerobic Blood Culture - Preliminary No growth in 2 days 06/06/18 05:20 Blood - Peripheral Anaerobic Blood Culture - Preliminary No growth in 2 days 06/06/18 05:40 Blood - Peripheral Aerobic Blood Culture - Preliminary No growth in 2 days 06/06/18 05:40 Blood - Peripheral Anaerobic Blood Culture - Preliminary No growth in 2 days 06/05/18 06:10 Blood - Peripheral Aerobic Blood Culture - Preliminary No growth in 3 days 06/05/18 06:10 Blood - Peripheral Anaerobic Blood Culture - Preliminary No growth in 3 days 06/05/18 06:19 Blood - Peripheral Aerobic Blood Culture - Preliminary No growth in 3 days 06/05/18 06:19 Blood - Peripheral Anaerobic Blood Culture - Preliminary No growth in 3 days 06/04/18 08:25 Blood - Peripheral Aerobic Blood Culture - Final S. aureus MRSA 06/04/18 08:25 Blood - Peripheral Anaerobic Blood Culture - Preliminary No growth in 4 days 06/04/18 08:20 Blood - Peripheral Aerobic Blood Culture - Preliminary No growth in 4 days 06/04/18 08:20 Blood - Peripheral Anaerobic Blood Culture - Preliminary No growth in 4 days 06/05/18 16:00 Wound - Incision Gram Stain - Final 06/05/18 16:00 Wound - Incision Wound Culture - Final S. aureus MRSA 06/01/18 14:23 Blood - Peripheral Aerobic Blood Culture - Final S. aureus MRSA 06/01/18 14:23 Blood - Peripheral Anaerobic Blood Culture - Final No growth in 5 days 06/01/18 14:29 Blood - Peripheral Aerobic Blood Culture - Final S. aureus MRSA 06/01/18 14:29 Blood - Peripheral Anaerobic Blood Culture - Final No growth in 5 days Lab - Hematology Results 06/07/18 06/08/18 04:07 05:25 WBC 9.6 8.1 RBC 2.41 L 2.31 L Hgb 7.1 L 6.9 L* Hct 21.2 L 19.8 L* MCV 88.0 85.7 MCH 29.2 30.0 MCHC 33.2 35.1 RDW 18.5 H 17.7 H Plt Count 296 323 MPV 8.4 8.2 Neut % (Auto) 72.9 H Lymph % (Auto) 14.5 [place] % (Auto) 10.1 H Eos % (Auto) 1.8 Baso % (Auto) 0.7 Neut # (Auto) 7.0 Lymph # (Auto) 1.4 [place] # (Auto) 1.0 H Eos # (Auto) 0.2 Baso # (Auto) 0.1 WBC Differential . Differential Comment Auto diff final Lab - Chemistry Results 06/06/18 06/06/18 06/07/18 05:20 20:38 01:48 Sodium Potassium Chloride Carbon Dioxide Anion Gap BUN Creatinine Estimated GFR POC Glucose 270 H 346 H Random Glucose Calcium Phosphorus Magnesium Total Bilirubin 0.9 Direct Bilirubin 0.4 H Indirect Bilirubin 0.5 AST 12 L ALT 10 L Alkaline Phosphatase 63 Total Protein 8.5 H Albumin 3.9 06/07/18 06/07/18 06/07/18 04:07 04:43 07:46 Sodium 137 Potassium 3.6 Chloride 97 L Carbon Dioxide 23.0 Anion Gap 17 H BUN 69 H Creatinine 8.19 H Estimated GFR 8 L POC Glucose 332 H 225 H Random Glucose 285 H D Calcium 10.1 Phosphorus 7.7 H Magnesium 2.4 Total Bilirubin 0.6 Direct Bilirubin Indirect Bilirubin AST 5 L ALT 11 L Alkaline Phosphatase 80 Total Protein 8.4 H Albumin 3.5 06/07/18 06/07/18 06/07/18 11:52 15:50 20:10 Sodium Potassium Chloride Carbon Dioxide Anion Gap BUN Creatinine Estimated GFR POC Glucose 182 H 206 H 249 H Random Glucose Calcium Phosphorus Magnesium Total Bilirubin Direct Bilirubin Indirect Bilirubin AST ALT Alkaline Phosphatase Total Protein Albumin 06/08/18 06/08/18 06/08/18 01:53 05:25 05:32 Sodium 135 L Potassium 3.8 Chloride 95 L Carbon Dioxide 23.0 Anion Gap 17 H BUN 84 H Creatinine 8.99 H Estimated GFR 7 L POC Glucose 304 H 290 H Random Glucose 269 H Calcium 9.9 Phosphorus 7.3 H Magnesium 2.5 Total Bilirubin Direct Bilirubin Indirect Bilirubin AST ALT Alkaline Phosphatase Total Protein Albumin 06/08/18 06/08/18 06/08/18 08:13 11:55 17:17 Sodium Potassium Chloride Carbon Dioxide Anion Gap BUN Creatinine Estimated GFR POC Glucose 258 H 201 H 173 H Random Glucose Calcium Phosphorus Magnesium Total Bilirubin Direct Bilirubin Indirect Bilirubin AST ALT Alkaline Phosphatase Total Protein Albumin Imaging: ITS Impressions Abdomen X-Ray 05/31/18 00:00 CONCLUSION: 1. Suction-type NGT in the stomach. Upper Extremity Ultrasound 06/06/18 00:00 CONCLUSION: 1. Nonspecific complex fluid collection could be postprocedural change, however infectious process is not excluded. Chest X-Ray 06/08/18 11:35 CONCLUSION: Increasing airspace disease on the left. Central line as above. Physical Exam: GENERAL: NAD sedated. intubated on vent SKIN: Warm and dry. No rash HEAD: Atraumatic. Normocephalic. EYES: Pupils equal and round. No scleral icterus. No injection or drainage. ENT: No nasal bleeding or discharge. Mucous membranes pink and moist. NECK: Trachea midline. No JVD. CARDIOVASCULAR: Regular rate and rhythm. Chest incision is open and packed, minim,al serosang drainage on the packing RESPIRATORY: No accessory muscle use. Rhonchi to auscultation. Breath sounds equal bilaterally. CT in place in L side witgh serosang d/c GASTROINTESTINAL: Abdomen soft, non-tender, nondistended. Hepatic and splenic margins not palpable. MUSCULOSKELETAL: Extremities without clubbing, cyanosis, +edema. RUE soft, swollen , new small opening in distal part of incision with dark drainage +less prominent induration ion mid incision no erythema edema of RUE increased : SP cath removed NEUROLOGICAL: sedated PSYCHIATRIC: unable to assess Assessment and Plan - Plan MRSA sepsis: persistent bacteremia- wilmer 2/2 retained infected graft all cultures remain positive including the one from 06/03 - sustained bacteremia: 2 cultures by 6 days Indwelling prosthetic vascular device (complex AV graft extending to R atrium ) Infected PD vascuklar synthetic graft: abscess vs infected hematoma - sp partial removal US RUE showed 4.5 fluid collection Cultures growing C.albicans along with MRSA Sepsis, septic shock; clincially resolving ESRD, on HD Acute VDRF; sp reintubation PNA, GNBs. Both isolates S to CFTX MRSA PNA Persistend hypotensiotn, back on pressors Clearly another septic episode: persistent graft infx vs new infection pt remains critical and unstable wioth persistent hypotensio requiring pressors, dose increased to 13 mcgs Pleural effusion cont vancomycin: keep trough 15-20 chk vanco level mon cont rifampin chk LFTs gentamicin was stopped cont fluconazol repeat BC fu pleural effusion studies Needs removal of the remainder of the graft to control sepsis and bacteremia anais Ortega
[2018-06-09] MEDS: Sodium Chlor 0.9% Inj 100 ML IV.SIG SCH ×12 (00:27→21:55)
[2018-06-09] MEDS: Pantoprazole Inj 40 MG Vial IV.PUSH SCH ×2 (00:43→10:22)
[2018-06-09] MEDS: Albumin Human 25% Inj 100 ML IV.SIG SCH ×2 (00:44→10:20)
[2018-06-09] MEDS: Senna/Docusate Sodium 8.6/50 MG Tablet PO SCH ×3 (00:44→21:56)
[2018-06-09] MEDS: Propofol 1000 mg/100 ml Inj 1,000 MG/100 ML BOTTLE IV.CONT PRN ×3 (01:09→10:20)
--- NOTE | 2018-06-09 04:23 | CT ---
EXAM DATE: 06/09/2018 4:09 AM EDT AGE/SEX: 73 years / Male INDICATIONS: Evaluate pleural effusion. CLINICAL DATA: This is the patient's subsequent encounter. Patient reports that signs and symptoms h ave been present for 4 - 6 days and indicates a pain score of Nonresponsive. MEDICAL/SURGICAL HISTORY: Diabetes mellitus type II. Hypertension. Renal disease, end stage. Maryan lysis DVT None. RADIATION DOSE: 19.80 CTDI (mGy) COMPARISON: No prior exams available for comparison. TECHNIQUE: Multiple contiguous axial images were obtained through the chest without contrast. Image s were obtained in suspended respiration using multiple row detector helical technique. Using automa david exposure control and adjustment of the mA and/or kV according to patient size, radiation dose was kept as low as reasonably achievable to obtain optimal diagnostic quality images. DICOM format imag e data is available electronically for review and comparison. FINDINGS: Lungs: There are multiple bilateral pulmonary nodules that are too numerous to count. The nodules in the right number approximately 10 in total and measuring up to 12 mm. A few are identified in the le ft lung. Some of these nodules demonstrate cavitation. There is respiratory motion artifact. Atelecta sis versus consolidation is present in both lower lobes. No pneumothorax is present. Mediastinum: The heart and great vessels demonstrate no acute abnormality. No lymphadenopathy is id entified. There is coronary artery calcification. Left IJ central line distal tip is in the left brac hiocephalic vein. ETT and nasogastric tube are present. Pleurae: There is a small left pleural effusion. Left chest tube is present. Axillae: No lymphadenopathy. Musculoskeletal: The bones and soft tissues demonstrate no acute abnormality. There are degenerativ e changes of the thoracic spine with anterior wedging and fusion of 2 mid thoracic vertebral bodies. Other: The visualized upper abdominal structures demonstrate no acute abnormality. There is severe bilateral gynecomastia. CONCLUSION: 1. Small left pleural effusion. Left chest tube is present and slightly more lateral and anterior to where the pleural fluid is located. 2. Multiple bilateral pulmonary nodules, some of which demonstrate cavitation. Although nonspecific the nodules could represent septic emboli or metastatic disease. 3. There is atelectasis versus airspace consolidation at both lung bases. Electronically signed by: Jordan Sahni MD 06/09/2018 4:22 AM EDT
[2018-06-09] MEDS: Insulin NovoLOG Aspart Correctional Sugar Inj SQ SCH ×5 (05:17→21:54)
[2018-06-09 05:37] LABS: Hematocrit 25.7 % (39.0-51.0); Hemoglobin 8.9 gm/dL (13.0-17.0); Mean Corpuscular HGB Conc 34.7 % (32.0-36.0); Mean Corpuscular Hemoglobin 29.7 pg (27.0-34.0); Mean Corpuscular Volume 85.6 fL (80.0-100.0); Platelet Count 273 th/mm3 (150-450); Red Cell Distribution Width 17.1 % (11.6-17.2); White Blood Count 6.2 th/mm3 (4.0-11.0)
[2018-06-09 06:06] LABS: Calcium 9.7 mg/dL (8.5-10.1); Carbon Dioxide 23.7 meq/L (21.0-32.0); Magnesium 2.2 mg/dL (1.5-2.5); Potassium 3.6 meq/L (3.5-5.1)
--- NOTE | 2018-06-09 09:53 | P.PNVS ---
Subjective Post Op Day #: 12 Procedure: Excision of arm and neck grafts, grossly infected Subjective/Hospital Course: improvement in pressor req narciso HD yesterday Hct responded to PRBC CT of chest shows fluid/consolidation L lung and ? B lung lesions Objective Neuro: sedated, VAN off sedation Pulmonary: vent, stable, likely to need trach Cardiac: lower pressor req FEN/GI: HD yesterday; + TF ID Antibiotics (date/duration): most recent blood cx negative on broad antibiotics Heme: Hct 26 plt 273 Vascular: R neck incision ok, arm incision ok Laboratory Results - last 24 hr 05/30/18 06/07/18 06/08/18 10:40 14:06 11:55 WBC RBC Hgb Hct MCV MCH MCHC RDW Plt Count MPV Sodium Potassium Chloride Carbon Dioxide Anion Gap BUN Creatinine Estimated GFR POC Glucose 201 H Random Glucose Calcium Phosphorus Magnesium Pleural pH Pleural RBC Pleural Nuc Cells Pleural Neutrophils Pleural Lymphocytes Pleural Eosinophils Pleural Total Protein Pleural LDH Pleural Glucose Pleural Amylase Blood Type B Positive Antibody Screen Negative MTS Gel Crossmatch See Detail See Detail 06/08/18 06/08/18 06/08/18 17:00 17:00 17:17 WBC RBC Hgb Hct MCV MCH MCHC RDW Plt Count MPV Sodium Potassium Chloride Carbon Dioxide Anion Gap BUN Creatinine Estimated GFR POC Glucose 173 H Random Glucose Calcium Phosphorus Magnesium Pleural pH 8.5 Pleural RBC 308576 H Pleural Nuc Cells 191 H Pleural Neutrophils 92 Pleural Lymphocytes 3 Pleural Eosinophils 5 Pleural Total Protein 6.4 Pleural LDH 606 Pleural Glucose 221 Pleural Amylase 105 Blood Type Antibody Screen MTS Gel Crossmatch 06/08/18 06/09/18 06/09/18 20:15 00:36 05:05 WBC 6.2 RBC 3.00 L Hgb 8.9 L D Hct 25.7 L MCV 85.6 MCH 29.7 MCHC 34.7 RDW 17.1 Plt Count 273 MPV 8.0 Sodium Potassium Chloride Carbon Dioxide Anion Gap BUN Creatinine Estimated GFR POC Glucose 258 H 301 H Random Glucose Calcium Phosphorus Magnesium Pleural pH Pleural RBC Pleural Nuc Cells Pleural Neutrophils Pleural Lymphocytes Pleural Eosinophils Pleural Total Protein Pleural LDH Pleural Glucose Pleural Amylase Blood Type Antibody Screen MTS Gel Crossmatch 06/09/18 06/09/18 05:05 05:26 WBC RBC Hgb Hct MCV MCH MCHC RDW Plt Count MPV Sodium 134 L Potassium 3.6 Chloride 96 L Carbon Dioxide 23.7 Anion Gap 14 BUN 64 H Creatinine 6.95 H Estimated GFR 10 L POC Glucose 178 H Random Glucose 173 H Calcium 9.7 Phosphorus 6.0 H D Magnesium 2.2 Pleural pH Pleural RBC Pleural Nuc Cells Pleural Neutrophils Pleural Lymphocytes Pleural Eosinophils Pleural Total Protein Pleural LDH Pleural Glucose Pleural Amylase Blood Type Antibody Screen MTS Gel Crossmatch Microbiology 06/06/18 05:20 Aerobic Blood Culture - Preliminary Blood - Peripheral No growth in 2 days Anaerobic Blood Culture - Preliminary No growth in 2 days 06/06/18 05:40 Aerobic Blood Culture - Preliminary Blood - Peripheral No growth in 2 days Anaerobic Blood Culture - Preliminary No growth in 2 days 06/05/18 06:10 Aerobic Blood Culture - Preliminary Blood - Peripheral No growth in 3 days Anaerobic Blood Culture - Preliminary No growth in 3 days 06/05/18 06:19 Aerobic Blood Culture - Preliminary Blood - Peripheral No growth in 3 days Anaerobic Blood Culture - Preliminary No growth in 3 days 06/04/18 08:25 Aerobic Blood Culture - Final Blood - Peripheral S. aureus MRSA Anaerobic Blood Culture - Preliminary No growth in 4 days 06/04/18 08:20 Aerobic Blood Culture - Preliminary Blood - Peripheral No growth in 4 days Anaerobic Blood Culture - Preliminary No growth in 4 days 06/05/18 16:00 Gram Stain - Final Wound - Incision Wound Culture - Final S. aureus MRSA Impressions Chest X-Ray 06/07/18 00:00 CONCLUSION: Improvement in aeration left lung. Chest X-Ray 06/08/18 05:00 CONCLUSION: Stable chest x-ray with left mid to lower lung zone airspace consolidation and small left pleural effusion. Left chest tube remains present and no pneumothorax is visualized. Chest X-Ray 06/08/18 11:35 CONCLUSION: Increasing airspace disease on the left. Central line as above. Chest CT 06/09/18 00:00 CONCLUSION: 1. Small left pleural effusion. Left chest tube is present and slightly more lateral and anterior to where the pleural fluid is located. 2. Multiple bilateral pulmonary nodules, some of which demonstrate cavitation. Although nonspecific the nodules could represent septic emboli or metastatic disease. 3. There is atelectasis versus airspace consolidation at both lung bases. Assessment and Plan - Assessment (1) Septic shock Code(s): A41.9 - Sepsis, unspecified organism; R65.21 - Severe sepsis with septic shock Status: Deleted (2) Arteriovenous graft infection Code(s): T82.7XXA - Infection and inflammatory reaction due to other cardiac and vascular devices, implants and grafts, initial encounter Status: Deleted - Plan POD#12 s/p excision of R neck and arm graft improvement in pressors, still on vent 1. Continue vent wean and work towards extubation again may req trach - defer to ICU team 2. continue to lighten sedation 3. continue TF 4. Wean pressors, would favor gentle HD 5. W to D neck wound 6. ultimately if bacteremia persists, will remove defunctionalized remnant graft from R UE - potentially early next week
[2018-06-09] MEDS: Calcium Acetate 667 MG Capsule PO SCH ×3 (10:21→17:39)
[2018-06-09] MEDS: Heparin - SQ 10,000 UNITS/ML Vial SQ SCH ×2 (10:22→21:54)
[2018-06-09] MEDS: Mupirocin 2% Nasal Oint Topical Syringe EACH NARE SCH ×2 (10:23→21:54)
[2018-06-09] MEDS: Hypromellose 0.3% Opth Gel 10 GM Bottle EACH EYE SCH ×2 (10:24→21:53)
[2018-06-09] MEDS: Beneprotein Powder Packet G-TUBE SCH ×3 (10:24→17:40)
--- NOTE | 2018-06-09 12:01 | P.PNCC ---
Subjective Subjective Remarks/Hospital Course: Mr. Laguerre is a 73-year-old -[place] male with past medical history significant for end-stage renal disease on hemodialysis, hypertension, complicated vascular access, HeRO graft placement by Dr. Umana on 09/23/2017, revision and PTFE replacement 12/25/17. who presented to the [facility] with probable sepsis and shock. Dr. Umana was contacted and patient was accepted for transfer to CVICU in [facility]. I immediately evaluated the patient on arrival to CVICU. Patient is currently on BiPAP (transported on BiPAP) severely encephalopathic hardly wakes up to sternal rub, with a rapid shallow breathing. BiPAP settings 18/8, 60% FiO2. He is literally unresponsive and not protecting airway. Currently he is on Levophed at 20 mcg/min with a map 65-70. He is also on amiodarone for atrial fibrillation with RVR. Because of lack of airway protection, severe encephalopathy, septic shock and hypoxia I proceeded with endotracheal intubation. His glottic opening was completely occluded with thick secretions, several minutes of suctioning needed to clear the secretions prior to intubation. Postintubation Levophed had to be increased to 30 mcg/min, I also placed an arterial line. All cultures, routine labs and lactic acid pending at this time. I have started him on vancomycin and Zosyn. Discussed case with Dr. Umana extensively Patient was unable to provide any history, according to the RN who got report patient apparently had GI bleed, underwent EGD with cauterization of duodenal ulcer few days ago. Will avoid heparin for DVT prophylaxis. His postintubation ABG showed severe hypoxia with significant AA gradient, metabolic acidosis, and a hemoglobin of 7.6. Currently Levophed is increased to 30 mcg/min, I will transfuse 1 unit PRBC. Chest x-ray shows pulmonary edema will arrange for hemodialysis once his shock is improves. At this time he will not be able to tolerate either hemodialysis or even CVVH 05/28: initially evaluated around 6:30am. patient in refractory septic shock. added epinephrine to levophed and vasopressin. discussed with Dr. Umana. obtained u/s of the right upper extremity which demonstrated fluid collection surrounding the HeRO graft which was heterogenous in nature. added single dose of Amikacin to vanc/zosyn regimen to cover ESBL organisms. patient remains in shock. per verbal report from OSH, blood cultures growing MRSA. taken to OR urgently and large amount of purulent drainage debrided from around catheter. HeRO catheter removed. returns from OR persistently unstable. acidosis worsening. bicarb given. discussed with nephrology and will need CRRT. 05/29: s/p emergent debridement and removal of HeRO graft. today vasopressor doses are somewhat lower, although remains on levo,vaso,epi. lactate cleared. s/ p IHD today with 3L removal. blood growing MRSA. sputum growing e.coli, providencia, MRSA. wbc remains elevated. 05/30: off vasopressors. getting IHD again today. hgb 7 and receiving 1 unit prbc during dialysis. encephalopathy persists, not following commands. 05/31: clinically continues to improve. not following commands, very slow to arouse. bradycardic this AM, but tolerating hemodynamically. HD yesterday with volume removal. 06/01: Clinically improved off all pressors. Sedated with propofol and fentanyl , opens eyes moves extremities not following commands. Plan for hemodialysis today. Initiate CPAP trial after hemodialysis. Persistently bacteremic with MRSA, repeat cultures in 24 hours 06/02: Remains in septic shock, though pressor requirement has improved. Hypotensive bradycardic while getting HD yesterday, started on Dopamine, now at 3 mcg/kg/min. Pus being expressed from upper part of right upper chest [id number] (HeRO AVG removal site). Hypothermic. Some pus around the suprapubic catheter 06/03: Patient had been weaned off all pressors now. Not requiring dopamine for the last 18 hours. However WBC count 13 K today. Persistent bacteremia with MRSA. Source could be right upper extremity graft remnant versus infected invasive catheters. After hemodialysis removal HD catheter, also remove left IJ central line. Repeat blood cultures in 24 hours. Antibiotics broadened by ID yesterday 06/04: Showing some clinical signs of improvement. Not requiring pressors hypothermia has resolved. CBC still pending patient is more awake following commands tolerating CPAP now. Left IJ central line and right femoral Vas-Cath was removed yesterday. Plan for next dialysis is tomorrow will place new Vas- Cath tomorrow a.m. to give 'line holiday'. 06/05: Back on norepinephrine at 10 mics per minute. Blood blood pressure variable, intermittently hypotensive. New Vas-Cath placed in groin functional. Most recent cultures continued to grow gram-positive cocci. Alert when propofol is lightened Subjective: 06/06: Afebrile. Remains on norepinephrine drip at 7 mcg/min. Arousable on the ventilator on sedation vacation. Commands. -3 L with hemodialysis yesterday. Repeat blood cultures done the same. Right upper extremity ultrasound pending.. 06/07: remains on vasopressors. cxr today with new left pleural effusion which is quite large: confirmed on bedside lung ultrasound. pigtail chest tube placed with > 1L old hemothorax. hgb slightly lower, but hemodynamically stable. discussed with nephrology and vascular surgery and most ideal plan would be to transfuse prbc tomorrow with HD. 06/08: Remains intubated sedated with propofol. Currently on 8 mcg/min of Levophed but map is above 75. Getting 2 units of PRBC with dialysis for hemoglobin of 6.9. Left pigtail chest tube drained almost 2 L old blood appearing. I will request fluid studies from any residual drainage. CT of the chest to evaluate for any residual fluid. 06/09: Intubated sedated, wakes up and follows commands. On Levophed at 1 mcg/ min. CT of the chest shows small left pleural effusion bibasilar consolidation , multiple bilateral pulmonary nodules some cavitation indicating septic emboli most likely from staff. Blood cultures from 06/05/18 and 06/06/18 negative to date Objective Vital Signs / I&O: Vital Signs 06/08/18 13:10 06/08/18 13:26 06/08/18 13:52 Temperature 97.6 F 97.6 F Pulse Rate 73 75 Respiratory Rate 16 16 16 Blood Pressure 106/54 L 100/58 L Pulse Oximetry 97 06/08/18 15:00 06/08/18 16:25 06/08/18 16:45 Temperature 97.8 F Pulse Rate 86 75 Respiratory Rate 16 17 17 Blood Pressure 131/61 Pulse Oximetry 99 97 06/08/18 19:00 06/08/18 20:50 06/08/18 21:00 Temperature 97.9 F Pulse Rate 89 87 Respiratory Rate 20 16 16 Blood Pressure 111/59 L Pulse Oximetry 96 96 06/08/18 23:00 06/09/18 00:48 06/09/18 03:00 Temperature 98.2 F 98.4 F Pulse Rate 92 H 83 Respiratory Rate 16 17 20 Blood Pressure 103/56 L 137/65 Pulse Oximetry 98 96 98 06/09/18 03:35 06/09/18 07:00 06/09/18 08:46 Temperature 98.3 F Pulse Rate 68 75 76 Respiratory Rate 16 16 17 Blood Pressure 109/62 Pulse Oximetry 97 98 96 06/09/18 10:45 06/09/18 10:46 06/09/18 11:25 Temperature 98.1 F Pulse Rate 85 83 Respiratory Rate 16 16 Blood Pressure 115/64 Pulse Oximetry 98 98 Intake & Output 06/08/18 06/09/18 06/09/18 18:59 06:59 18:59 Intake Total 2740 / 2740 1020 / 1020 100 / 100 Output Total 4000 / 4000 410 / 410 Balance -1260 / -1260 610 / 610 100 / 100 Weight 128.9 kg Intake: IV 2450 / 2450 500 / 500 100 / 100 Diprivan 1000 mg/100 ml Inj 1, 300 / 300 300 / 300 100 / 100 000 mg In 100 ml @ 5 MCG/KG/MIN 3.87 mls/hr IV.CONT TITRATE PRN Rx#:[id number] Flexbumin 25% Inj 100 ML @ 60 300 / 300 100 / 100 mls/hr IV.SIG Q12H TRACIE Rx#: [id number] Diflucan 200 mg Premix Bag 100 100 / 100 ML @ 100 mls/hr IV.SIG Q24H TRACIE Rx#:[id number] Levophed-Dextrose 4 mg/250 ml 250 / 250 100 / 100 Drip 4 mg In 250 ml @ 2 MCG/MIN 7.5 mls/hr IV.SIG TITRATE PRN Rx#:[id number] Vancomycin Inj 1,000 MG In NS 500 / 500 Inj 250 ML @ 250 mls/hr IV.SIG WITH DIALYSIS TRACIE Rx#:[id number] NS Inj 1,000 ML @ 200 mls/hr 1000 / 1000 OTHER .Q5H PRN Rx#:[id number] Oral 0 / 0 Tube Feeding 230 / 230 400 / 400 Tube Irrigant 60 / 60 120 / 120 Intake (Blood Product) Amt 0 / 0 Rbc As-3 Leukoreduced Unit 0 / 0 [id number] Rbc As-3 Leukoreduced Unit 0 / 0 [id number] Output: Urine 0 / 0 0 / 0 Stool 0 / 0 400 / 400 Hemodialysis Amount 4000 / 4000 Urine Amount (Catheter) 0 / 0 Suprapubic 0 / 0 Chest Tube Drainage #1 Left Lower Mid-Axillary Chest Other: Date of Last Bowel Movement 06/09/18 06/08/18 # Incontinent Bowel Movements 1 Result Diagrams: 06/09/18 05:05 06/09/18 05:05 Objective Remarks: GENERAL: 73-year-old -[place] male, lying in bed, intubated, light sedation HEENT: Normocephalic. Atraumatic. Pupils equal, round, reactive. NECK: Trachea is midline. Orotracheally intubated. CHEST: PRVC. equal chest rise. Air entry decreased with few coarse rhonchi bilaterally. Good bilateral air movement. Left pigtail catheter with only 10 ml output in last 24 hours CARDIOVASCULAR: Atrial fibrillation rate controlled. No murmurs. No JVD. ABDOMEN: Soft, nontender, nondistended. No guarding. Supra pubic catheter in place MUSCULOSKELETAL: Right upper extremity s/p debridement upper incision W/D dressing. Pulses 2+. No peripheral edema. NEUROLOGICAL: Opens eyes spontaneously off sedation. Follows commands 4 when light. No focal deficits Assessment and Plan - Assessment and Plan Plan: NEURO/PSYCH: Acute metabolic encephalopathy -Currently on a propofol drip for sedation while intubated -Goal of RASS -1. daily sedation vacation -Acetaminophen 650 mg by tube every 6 hours as needed fever -Altered mentation secondary to toxic metabolic encephalopathy from sepsis and hypercapnia RESP: Acute hypoxemic and hypercarbic respiratory failure Multiple pulmonary nodules/septic emboli Pulmonary edema Left Hemothorax MRSA pneumonia HCAP with MRSA- present on admission -Continue abx. daily SAT/SBT Ventilator bundle. DuoNeb every 6 hours scheduled and albuterol aerosols every 2 hours as needed -MRSA pneumonia treatment below s/p 10 Fr pigtail chest tube, left, with >1L old dark blood. 06/07. currently to suction. Fluid studies consistent with hemothorax CT of the chest shows multiple pulmonary nodules with some cavitation indicating septic emboli CV: Septic shock Acute severe anion gap Metabolic acidosis- resolved Pulmonary edema-resolving Atrial fibrillation with RVR-currently normal sinus rhythm - Remains on norepinephrine drip to maintain mean arterial pressure greater than equal to 65mmHg - Dcd stress dose steroids 06/03/2018 - HD daily for volume removal and electrolyte/acid-base abnormalities. -4 L 06/08 - A. fib rate is controlled and currently normal sinus rhythm, cannot anticoagulate due to history of recent GI bleed GI/HEME/FEN: Recent GI bleed Acute anemia requiring transfusion Leukocytosis Hyperphosphatemia -Transfuse 2U PRBC with HD today -Nepro tube feeds at 45 cc an hour per attrition recommendations with Benaprotein 1 packet 3 times daily -Nutrition consult for TF recs -IV pantoprazole 40 mg IV daily -Docusate sodium/senna 1 tablet twice daily for bowel regimen -Calcium acetate 667 mg 3 times daily for elevated phosphorus. Recheck in a.m. /renal: End-stage renal disease on hemodialysis HeRO graft placed 09/2017, now removed due to graft infection - Nephrology: Dr. Davidson following - continue HD per nephrology, hemodialysis performed on Friday, plan for HD tomorrow - D/W Dr. davidson, remove suprapubic catheter -New Vas-Cath placed in groin left lower extremity. ID: Septic shock HeRO graft infection s/p removal HCAP pneumonia- present on admission MRSA septic emboli to lung Persistent MRSA bacteremia -Persistent MRSA bacteremia could be secondary to infected remnant of the AV graft, versus secondary seeding of the catheters -Removed Vas-Cath, and left IJ central line 06/03/18 -Last culture from 06/05 and 06/06 negative to date - ID Dr. Morgan, abx management per ID - Dr. Umana following - 05/27, 05/28, 05/30, 06/01 and 06/04 blood cultures MRSA - 05/27 sputum cultures: Providencia, MRSA, e.coli - 06/02 wound with Arlet albicans - cont vancomycin: keep trough 15-20 cont rifampin - Continue fluconazole and gentamicin -Discontinued meropenem and micafungin - will need minimum 6 weeks coverage for MRSA graft infection ENDO: Type 2 diabetes Presumed Adrenal insufficiency -Sliding scale insulin with aspart insulin every 4 hours -hydrocortisone discontinued 06/03 PROPH: -Bilateral lower extremity SCDs. Sq Heparin. IV Protonix 40 mg every 12 LINES: -Removed OSH left IJ central line and OSH right femoral Vas-Cath on 06/03/2018 -New left femoral Vas-Cath placement 06/04/18 -left radial arterial line 05/27: -Placed new LIJ central line 06/08/18 due to ongoing pressor requirement Overall impression: likely shock may take time to resolve. hemothorax likely old and occult, unlikely to be active bleeding. if cultures persistently remain positive, would need to consider removal of distal remnant of graft, but clinically he is making slow improvements, and unlikely to have active ongoing bacteremic graft infection with continued forward progress. CCT 32 MIN Code Status: Full
--- NOTE | 2018-06-09 16:26 | P.DIET ---
Nutritional Evaluation Type of nutrition evaluation: follow-up Nutrition consult regarding: Tube Feeding Nutrition screening: [facility] [place] Objective - Diagnosis Sepsis, Graft Infection - Objective [place] body weight: 81 kg Body Weight Used for Calculations: IBW Energy Needs - Lower Range (kCal/kg): 24 Energy Needs - Upper Range (kCal/kg): 28 Lower Limit kCal/kg (kCals): 1,944 Upper Limit kCal/kg (kCals): 2,268 Lower Limit Protein Factor (Grams per Kg): 1.2 Upper Limit Protein Factor (Grams per Kg): 1.5 Lower Protein Needs (Protein): 97 Upper Protein Needs (Protein): 122 Dietitian Reviewed in Medical Record: Curent medications, Intake & Output, Labs , Medical history, Tube feeding Diet Order: TF only Wound Care Note: 06/09: R+L Buttock pressure injury (ongoing) Objective Comments: PMH: ESRD on HD, HTN, DM, DVT, Obesity Assessment Assessment: Pt at nutritional risk r/t need for a TF for nutrition support. Pt intubated and sedated on propofol. Current rate at 15.5ml/hr provides an additional 409 kcals/24 hrs. Pt admitted with sepsis, graft infection, now with MRSA infection status post removal of AV graft. TF Nepro started per . To meet pt's nutritional needs, a goal rate of 45 ml/hr is necessary and Beneprotein 1 pkt TID is needed to meet pt's protein needs. The above will provide 2019kcals, 106gms protein and 785mls free water. Recommendations: TF Nepro with goal rate 45 ml/hr Beneprotein 1 pkt TID Dietitian to Monitor: Lab values, Intake & Output, Tube feeding tolerance, Weight change, Wound/skin status, Medical course
--- NOTE | 2018-06-09 20:37 | P.PNNP ---
Subjective Interval history: On ventilator Physical Exam Vital signs: Vital Signs 06/08/18 20:50 06/08/18 21:00 06/08/18 23:00 Temperature 98.2 F Pulse Rate 87 92 H Respiratory Rate 16 16 16 Blood Pressure 103/56 L Pulse Oximetry 96 98 06/09/18 00:48 06/09/18 03:00 06/09/18 03:35 Temperature 98.4 F Pulse Rate 83 68 Respiratory Rate 17 20 16 Blood Pressure 137/65 Pulse Oximetry 96 98 97 06/09/18 07:00 06/09/18 08:46 06/09/18 10:45 Temperature 98.3 F Pulse Rate 75 76 85 Respiratory Rate 16 17 Blood Pressure 109/62 Pulse Oximetry 98 96 06/09/18 10:46 06/09/18 11:25 06/09/18 13:13 Temperature 98.1 F Pulse Rate 83 Respiratory Rate 16 16 20 Blood Pressure 115/64 Pulse Oximetry 98 98 99 06/09/18 14:31 06/09/18 14:33 06/09/18 14:50 Temperature 98.5 F 98.2 F Pulse Rate 80 85 Respiratory Rate 19 Blood Pressure 113/61 Pulse Oximetry 98 06/09/18 15:50 06/09/18 16:06 Temperature Pulse Rate 81 Respiratory Rate 19 16 Blood Pressure Pulse Oximetry Intake & Output 06/09/18 06/09/18 06/10/18 06:59 18:59 06:59 Intake Total 1020 / 1020 930 / 930 Output Total 410 / 410 210 / 210 Balance 610 / 610 720 / 720 Weight 128.9 kg Intake: IV 500 / 500 300 / 300 Diprivan 1000 mg/100 ml Inj 1, 300 / 300 100 / 100 000 mg In 100 ml @ 5 MCG/KG/MIN 3.87 mls/hr IV.CONT TITRATE PRN Rx#:[id number] Flexbumin 25% Inj 100 ML @ 60 100 / 100 100 / 100 mls/hr IV.SIG Q12H TRACIE Rx#: [id number] Diflucan 200 mg Premix Bag 100 100 / 100 ML @ 100 mls/hr IV.SIG Q24H TRACIE Rx#:[id number] Levophed-Dextrose 4 mg/250 ml 100 / 100 Drip 4 mg In 250 ml @ 2 MCG/MIN 7.5 mls/hr IV.SIG TITRATE PRN Rx#:[id number] Oral 0 / 0 Tube Feeding 400 / 400 480 / 480 Tube Irrigant 120 / 120 150 / 150 Output: Urine 0 / 0 Stool 400 / 400 160 / 160 Urine Amount (Catheter) 0 / 0 Suprapubic 0 / 0 Chest Tube Drainage 50 / 50 #1 Left Lower Mid-Axillary 50 / 50 Chest Other: Date of Last Bowel Movement 06/09/18 06/08/18 # Incontinent Bowel Movements 1 - Constitutional no acute distress - Routine HEENT Exam Eye: Present: EOMI - Routine Respiratory Exam Present: CTA bilaterally - Routine Cardiovascular Exam Present: RRR - Routine Abdominal Exam Present: soft, normoactive bowel sounds - Routine Extremities Exam Present: edema - Urinary Catheter Management Suprapubic Cath placed during this visit: no Assessment and Plan - Assessment (1) End stage renal disease on dialysis Code(s): N18.6 - End stage renal disease; Z99.2 - Dependence on renal dialysis Status: Acute (2) Acute hypoxemic respiratory failure Code(s): J96.01 - Acute respiratory failure with hypoxia Status: Deleted (3) Arteriovenous graft infection Code(s): T82.7XXA - Infection and inflammatory reaction due to other cardiac and vascular devices, implants and grafts, initial encounter Status: Deleted (4) Atrial fibrillation with RVR Code(s): I48.91 - Unspecified atrial fibrillation Status: Deleted (5) Hemodialysis access, AV graft Code(s): Z99.2 - Dependence on renal dialysis Status: Acute - Plan Patient has sepsis and undergoing treatment with IV vancomycin He is scheduled to do dialysis, Friday and Friday HD done Friday, next HD Friday Apparent HeRO infection and MRSA: Removal of previous left IJ port, s/p partial removal for right arm graft and HeRO outflow component. Ongoing hypotension - follow with ID and Vascular Continue on Friday and Friday schedule -- Right subclavian occlusion with right brachiobasilic AV fistula - HeRO placed 09/2017 from axillary vein, with outflow via right external jugular vein. Subsequent revision with new graft component 12/2017. Placement of left IJ port 04/2018 HeRO thrombectomy 04/17/2018 with thrombosis attributed to hypotension ( on midodrine outpatient) Normal HeRO Doppler 05/19/2018 with flow volume 1.6L/min. Once all issues are stabilized and infection controlled, may need eventual transition of femoral catheter to left IJ tunneled catheter, and possible left arm venogram and mapping for access as an outpatient. However remains critically ill. Continue with current lines at this time.
[2018-06-10] MEDS: Albumin Human 25% Inj 100 ML IV.SIG SCH ×3 (00:26→23:16)
[2018-06-10] MEDS: Pantoprazole Inj 40 MG Vial IV.PUSH SCH ×3 (00:27→23:18)
[2018-06-10] MEDS: Sodium Chlor 0.9% Inj 100 ML IV.SIG SCH ×14 (00:28→23:30)
[2018-06-10] MEDS: Insulin NovoLOG Aspart Correctional Sugar Inj SQ SCH ×7 (00:47→23:31)
[2018-06-10] MEDS: Propofol 1000 mg/100 ml Inj 1,000 MG/100 ML BOTTLE IV.CONT PRN ×3 (02:40→22:46)
[2018-06-10 04:59] LABS: Hematocrit 23.7 % (39.0-51.0); Hemoglobin 8.4 gm/dL (13.0-17.0); Mean Corpuscular HGB Conc 35.2 % (32.0-36.0); Mean Corpuscular Hemoglobin 30.1 pg (27.0-34.0); Mean Corpuscular Volume 85.5 fL (80.0-100.0); Mean Platelet Volume 8.4 fL (7.0-11.0); Platelet Count 244 th/mm3 (150-450); Red Blood Count 2.78 mil/mm3 (4.50-5.90); Red Cell Distribution Width 17.1 % (11.6-17.2); White Blood Count 5.5 th/mm3 (4.0-11.0)
[2018-06-10 05:25] LABS: Alanine Aminotransferase 10 U/L (12-78); Anion Gap 16 meq/L (5-15); Aspartate Aminotransferase 12 U/L (15-37); Blood Urea Nitrogen 67 mg/dL (7-18); Calcium 9.5 mg/dL (8.5-10.1); Carbon Dioxide 23.7 meq/L (21.0-32.0); Chloride 94 meq/L (98-107); Glomerular Filtration Rate 8 mL/min (>89); Glucose,Random 251 mg/dL (74-106); Magnesium 2.3 mg/dL (1.5-2.5); Phosphorus 6.4 mg/dL (2.5-4.9); Potassium 3.7 meq/L (3.5-5.1); Sodium 134 meq/L (136-145)
[2018-06-10 05:28] LABS: Alkaline Phosphatase 158 U/L (45-117); Total Protein 8.1 g/dL (6.4-8.2)
--- NOTE | 2018-06-10 05:44 | XR ---
EXAM DATE: 06/10/2018 5:39 AM EDT AGE/SEX: 73 years / Male INDICATIONS: Respiratory status. CLINICAL DATA: This is the patient's subsequent encounter. Patient reports that signs and symptoms h ave been present for 3 days and indicates a pain score of Nonresponsive. MEDICAL/SURGICAL HISTORY: Non-responsive. Non-responsive. COMPARISON: [facility] [place], CHEST 1V SINGLE AP, 06/08/2018. [facility] [place], CHEST 1V SINGLE AP, 06/08/2018. [facility] [place], CT CHES T W/O CONTRAST, 06/09/2018. . FINDINGS: Portable AP view of the chest demonstrates a normal-sized cardiac silhouette. ETT, nasogastric tube, and left IJ line remain present. There is diffuse severe left lung airspace consolidation. Mild atele ctasis is present at the right lung base. No pneumothorax is present. Bones demonstrate no acute find ing. CONCLUSION: Severe diffuse airspace consolidation throughout the left lung without significant change from the mo st recent prior chest x-ray. Electronically signed by: Jordan Sahni MD 06/10/2018 5:43 AM EDT
--- NOTE | 2018-06-10 07:44 | P.PNVS ---
Subjective Post Op Day #: 13 Procedure: Excision of arm and neck grafts, grossly infected Subjective/Hospital Course: still on pressors, stable due for HD today CT of chest shows fluid/consolidation L lung and ? B lung lesions slow vent wean Objective Neuro: sedated, by report, continues to VAN off sedation Pulmonary: vent, good sats failed extubation x 1 d/w Dr. Ortega - will try vent wean again and if fails, then surgical trach Cardiac: low dose pressor req continues FEN/GI: narciso TF alb 3.0 likely due for HD today ID Antibiotics (date/duration): broad antibiotics; 1 of 4 blood cultures + from 06/04 and all prelim NGTD after Heme: Hct stable Drains: chest tube in place, serous Laboratory Results - last 24 hr 06/09/18 06/09/18 06/09/18 10:04 10:53 10:55 WBC RBC Hgb Hct MCV MCH MCHC RDW Plt Count MPV Sodium Potassium Chloride Carbon Dioxide Anion Gap BUN Creatinine Estimated GFR POC Glucose 256 H 326 H 301 H Random Glucose Calcium Phosphorus Magnesium Total Bilirubin AST ALT Alkaline Phosphatase Total Protein Albumin 06/09/18 06/09/18 06/09/18 12:49 15:49 20:05 WBC RBC Hgb Hct MCV MCH MCHC RDW Plt Count MPV Sodium Potassium Chloride Carbon Dioxide Anion Gap BUN Creatinine Estimated GFR POC Glucose 242 H 178 H 129 H Random Glucose Calcium Phosphorus Magnesium Total Bilirubin AST ALT Alkaline Phosphatase Total Protein Albumin 06/10/18 06/10/18 06/10/18 00:26 04:30 04:30 WBC 5.5 RBC 2.78 L Hgb 8.4 L Hct 23.7 L MCV 85.5 MCH 30.1 MCHC 35.2 RDW 17.1 Plt Count 244 MPV 8.4 Sodium 134 L Potassium 3.7 Chloride 94 L Carbon Dioxide 23.7 Anion Gap 16 H BUN 67 H Creatinine 7.71 H Estimated GFR 8 L POC Glucose 273 H Random Glucose 251 H Calcium 9.5 Phosphorus 6.4 H Magnesium 2.3 Total Bilirubin 0.5 AST 12 L ALT 10 L Alkaline Phosphatase 158 H Total Protein 8.1 Albumin 3.0 L 06/10/18 04:32 WBC RBC Hgb Hct MCV MCH MCHC RDW Plt Count MPV Sodium Potassium Chloride Carbon Dioxide Anion Gap BUN Creatinine Estimated GFR POC Glucose 267 H Random Glucose Calcium Phosphorus Magnesium Total Bilirubin AST ALT Alkaline Phosphatase Total Protein Albumin Microbiology 06/06/18 05:20 Aerobic Blood Culture - Preliminary Blood - Peripheral No growth in 3 days Anaerobic Blood Culture - Preliminary No growth in 3 days 06/06/18 05:40 Aerobic Blood Culture - Preliminary Blood - Peripheral No growth in 3 days Anaerobic Blood Culture - Preliminary No growth in 3 days 06/05/18 06:10 Aerobic Blood Culture - Preliminary Blood - Peripheral No growth in 4 days Anaerobic Blood Culture - Preliminary No growth in 4 days 06/05/18 06:19 Aerobic Blood Culture - Preliminary Blood - Peripheral No growth in 4 days Anaerobic Blood Culture - Preliminary No growth in 4 days 06/04/18 08:25 Aerobic Blood Culture - Final Blood - Peripheral S. aureus MRSA Anaerobic Blood Culture - Final No growth in 5 days 06/04/18 08:20 Aerobic Blood Culture - Final Blood - Peripheral No growth in 5 days Anaerobic Blood Culture - Final No growth in 5 days Impressions Chest X-Ray 06/08/18 11:35 CONCLUSION: Increasing airspace disease on the left. Central line as above. Chest CT 06/09/18 00:00 CONCLUSION: 1. Small left pleural effusion. Left chest tube is present and slightly more lateral and anterior to where the pleural fluid is located. 2. Multiple bilateral pulmonary nodules, some of which demonstrate cavitation. Although nonspecific the nodules could represent septic emboli or metastatic disease. 3. There is atelectasis versus airspace consolidation at both lung bases. Chest X-Ray 06/10/18 06:00 CONCLUSION: Severe diffuse airspace consolidation throughout the left lung without significant change from the most recent prior chest x-ray. Assessment and Plan - Assessment (1) Septic shock Code(s): A41.9 - Sepsis, unspecified organism; R65.21 - Severe sepsis with septic shock Status: Deleted (2) Arteriovenous graft infection Code(s): T82.7XXA - Infection and inflammatory reaction due to other cardiac and vascular devices, implants and grafts, initial encounter Status: Deleted - Plan POD#13 s/p excision of R neck and arm graft slow vent wean 1. Continue vent wean and work towards extubation again may req trach - defer to ICU team 2. continue to lighten sedation 3. continue TF 4. Wean pressors, would favor gentle HD 5. W to D neck wound 6. ultimately if bacteremia persists, will remove defunctionalized remnant graft from R UE; so far, recent cx NGTD
[2018-06-10] MEDS: Heparin 10,000 UNITS/10 ML Vial (for IV use) OTHER PRN (08:42)
[2018-06-10] MEDS: Vancomycin Inj 1,000 MG in Sodium Chlor 0.9% Inj 250 ML IV.SIG SCH (08:44)
[2018-06-10] MEDS: Hypromellose 0.3% Opth Gel 10 GM Bottle EACH EYE SCH ×2 (08:47→23:15)
[2018-06-10] MEDS: Senna/Docusate Sodium 8.6/50 MG Tablet PO SCH ×2 (08:50→21:52)
[2018-06-10] MEDS: Mupirocin 2% Nasal Oint Topical Syringe EACH NARE SCH ×2 (08:50→23:15)
[2018-06-10] MEDS: Calcium Acetate 667 MG Capsule PO SCH ×3 (08:50→18:46)
[2018-06-10] MEDS: Heparin - SQ 10,000 UNITS/ML Vial SQ SCH (08:51)
[2018-06-10] MEDS: Beneprotein Powder Packet G-TUBE SCH ×3 (08:52→18:46)
--- NOTE | 2018-06-10 08:58 | P.PNCC ---
Subjective Subjective Remarks/Hospital Course: Mr. Laguerre is a 73-year-old -[place] male with past medical history significant for end-stage renal disease on hemodialysis, hypertension, complicated vascular access, HeRO graft placement by Dr. Umana on 09/23/2017, revision and PTFE replacement 12/25/17. who presented to the [facility] with probable sepsis and shock. Dr. Umana was contacted and patient was accepted for transfer to CVICU in [facility]. I immediately evaluated the patient on arrival to CVICU. Patient is currently on BiPAP (transported on BiPAP) severely encephalopathic hardly wakes up to sternal rub, with a rapid shallow breathing. BiPAP settings 18/8, 60% FiO2. He is literally unresponsive and not protecting airway. Currently he is on Levophed at 20 mcg/min with a map 65-70. He is also on amiodarone for atrial fibrillation with RVR. Because of lack of airway protection, severe encephalopathy, septic shock and hypoxia I proceeded with endotracheal intubation. His glottic opening was completely occluded with thick secretions, several minutes of suctioning needed to clear the secretions prior to intubation. Postintubation Levophed had to be increased to 30 mcg/min, I also placed an arterial line. All cultures, routine labs and lactic acid pending at this time. I have started him on vancomycin and Zosyn. Discussed case with Dr. Umana extensively Patient was unable to provide any history, according to the RN who got report patient apparently had GI bleed, underwent EGD with cauterization of duodenal ulcer few days ago. Will avoid heparin for DVT prophylaxis. His postintubation ABG showed severe hypoxia with significant AA gradient, metabolic acidosis, and a hemoglobin of 7.6. Currently Levophed is increased to 30 mcg/min, I will transfuse 1 unit PRBC. Chest x-ray shows pulmonary edema will arrange for hemodialysis once his shock is improves. At this time he will not be able to tolerate either hemodialysis or even CVVH 05/28: initially evaluated around 6:30am. patient in refractory septic shock. added epinephrine to levophed and vasopressin. discussed with Dr. Umana. obtained u/s of the right upper extremity which demonstrated fluid collection surrounding the HeRO graft which was heterogenous in nature. added single dose of Amikacin to vanc/zosyn regimen to cover ESBL organisms. patient remains in shock. per verbal report from OSH, blood cultures growing MRSA. taken to OR urgently and large amount of purulent drainage debrided from around catheter. HeRO catheter removed. returns from OR persistently unstable. acidosis worsening. bicarb given. discussed with nephrology and will need CRRT. 05/29: s/p emergent debridement and removal of HeRO graft. today vasopressor doses are somewhat lower, although remains on levo,vaso,epi. lactate cleared. s/ p IHD today with 3L removal. blood growing MRSA. sputum growing e.coli, providencia, MRSA. wbc remains elevated. 05/30: off vasopressors. getting IHD again today. hgb 7 and receiving 1 unit prbc during dialysis. encephalopathy persists, not following commands. 05/31: clinically continues to improve. not following commands, very slow to arouse. bradycardic this AM, but tolerating hemodynamically. HD yesterday with volume removal. 06/01: Clinically improved off all pressors. Sedated with propofol and fentanyl , opens eyes moves extremities not following commands. Plan for hemodialysis today. Initiate CPAP trial after hemodialysis. Persistently bacteremic with MRSA, repeat cultures in 24 hours 06/02: Remains in septic shock, though pressor requirement has improved. Hypotensive bradycardic while getting HD yesterday, started on Dopamine, now at 3 mcg/kg/min. Pus being expressed from upper part of right upper chest [id number] (HeRO AVG removal site). Hypothermic. Some pus around the suprapubic catheter 06/03: Patient had been weaned off all pressors now. Not requiring dopamine for the last 18 hours. However WBC count 13 K today. Persistent bacteremia with MRSA. Source could be right upper extremity graft remnant versus infected invasive catheters. After hemodialysis removal HD catheter, also remove left IJ central line. Repeat blood cultures in 24 hours. Antibiotics broadened by ID yesterday 06/04: Showing some clinical signs of improvement. Not requiring pressors hypothermia has resolved. CBC still pending patient is more awake following commands tolerating CPAP now. Left IJ central line and right femoral Vas-Cath was removed yesterday. Plan for next dialysis is tomorrow will place new Vas- Cath tomorrow a.m. to give 'line holiday'. 06/05: Back on norepinephrine at 10 mics per minute. Blood blood pressure variable, intermittently hypotensive. New Vas-Cath placed in groin functional. Most recent cultures continued to grow gram-positive cocci. Alert when propofol is lightened Subjective: 06/06: Afebrile. Remains on norepinephrine drip at 7 mcg/min. Arousable on the ventilator on sedation vacation. Commands. -3 L with hemodialysis yesterday. Repeat blood cultures done the same. Right upper extremity ultrasound pending.. 06/07: remains on vasopressors. cxr today with new left pleural effusion which is quite large: confirmed on bedside lung ultrasound. pigtail chest tube placed with > 1L old hemothorax. hgb slightly lower, but hemodynamically stable. discussed with nephrology and vascular surgery and most ideal plan would be to transfuse prbc tomorrow with HD. 06/08: Remains intubated sedated with propofol. Currently on 8 mcg/min of Levophed but map is above 75. Getting 2 units of PRBC with dialysis for hemoglobin of 6.9. Left pigtail chest tube drained almost 2 L old blood appearing. I will request fluid studies from any residual drainage. CT of the chest to evaluate for any residual fluid. 06/09: Intubated sedated, wakes up and follows commands. On Levophed at 1 mcg/ min. CT of the chest shows small left pleural effusion bibasilar consolidation , multiple bilateral pulmonary nodules some cavitation indicating septic emboli most likely from staff. Blood cultures from 06/05/18 and 06/06/18 negative to date 06/10: Remains intubated slightly sedated follows commands. Levophed requirement has slightly increased overnight currently on 5 mcg/min. We will recheck blood cultures. Getting hemodialysis today. Chest x-ray shows severe left-sided airspace disease. Check ultrasound of the chest post dialysis. Left pigtail chest tube output 60 ml in last 24 hours Objective Vital Signs / I&O: Vital Signs 06/09/18 10:45 06/09/18 10:46 06/09/18 11:25 Temperature 98.1 F Pulse Rate 85 83 Respiratory Rate 16 16 Blood Pressure 115/64 Pulse Oximetry 98 98 06/09/18 13:13 06/09/18 14:31 06/09/18 14:33 Temperature 98.5 F Pulse Rate 80 85 Respiratory Rate 20 19 Blood Pressure 113/61 Pulse Oximetry 99 98 06/09/18 14:50 06/09/18 15:50 06/09/18 16:06 Temperature 98.2 F Pulse Rate 81 Respiratory Rate 19 16 Blood Pressure Pulse Oximetry 06/09/18 19:00 06/09/18 22:00 06/09/18 22:30 Temperature 94 F L Pulse Rate 74 92 H Respiratory Rate 16 16 23 Blood Pressure 99/65 L Pulse Oximetry 98 98 06/09/18 23:00 06/10/18 01:00 06/10/18 03:00 Temperature 94 F L 94 F L Pulse Rate 79 77 Respiratory Rate 18 24 18 Blood Pressure 105/54 L 90/49 L Pulse Oximetry 98 97 98 06/10/18 04:24 06/10/18 07:00 06/10/18 08:14 Temperature 98.1 F Pulse Rate 76 93 H Respiratory Rate 16 16 16 Blood Pressure 73/39 L Pulse Oximetry 97 98 Intake & Output 06/09/18 06/10/18 06/10/18 18:59 06:59 18:59 Intake Total 1030 / 1030 810 / 810 3 / 3 Output Total 210 / 210 320 / 320 Balance 820 / 820 490 / 490 3 / 3 Weight 136 kg Intake: IV 400 / 400 200 / 200 3 / 3 Diprivan 1000 mg/100 ml Inj 1, 200 / 200 000 mg In 100 ml @ 5 MCG/KG/MIN 3.87 mls/hr IV.CONT TITRATE PRN Rx#:[id number] Flexbumin 25% Inj 100 ML @ 60 100 / 100 100 / 100 mls/hr IV.SIG Q12H TRACIE Rx#: [id number] Diflucan 200 mg Premix Bag 100 100 / 100 100 / 100 ML @ 100 mls/hr IV.SIG Q24H TRACIE Rx#:[id number] Levophed-Dextrose 4 mg/250 ml 3 / 3 Drip 4 mg In 250 ml @ 2 MCG/MIN 7.5 mls/hr IV.SIG TITRATE PRN Rx#:[id number] Oral 0 / 0 Tube Feeding 480 / 480 520 / 520 Tube Irrigant 150 / 150 Water Bolus Amount 90 / 90 Output: Urine 0 / 0 Stool 160 / 160 160 / 160 Urine/Stool Mix 150 / 150 Chest Tube Drainage 50 / 50 10 / 10 #1 Left Lower Mid-Axillary 50 / 50 10 / 10 Chest Other: Date of Last Bowel Movement 06/08/18 06/08/18 06/08/18 Result Diagrams: 06/10/18 04:30 06/10/18 04:30 Objective Remarks: GENERAL: 73-year-old -[place] male, lying in bed, intubated, light sedation HEENT: Normocephalic. Atraumatic. Pupils equal, round, reactive. NECK: Trachea is midline. Orotracheally intubated. CHEST: PRVC. equal chest rise. Air entry decreased predominantly in the left lung newman with few coarse rhonchi bilaterally. Good bilateral air movement. Left pigtail catheter with 60 ml output in last 24 hours CARDIOVASCULAR: Atrial fibrillation rate controlled. No murmurs. No JVD. ABDOMEN: Soft, nontender, nondistended. No guarding. Supra pubic catheter in place MUSCULOSKELETAL: Right upper extremity s/p debridement upper incision W/D dressing. Pulses 2+. No peripheral edema. NEUROLOGICAL: Opens eyes spontaneously off sedation. Follows commands 4 when light. No focal deficits Assessment and Plan - Assessment and Plan Plan: NEURO/PSYCH: Acute metabolic encephalopathy -Currently on a propofol drip for sedation while intubated -Goal of RASS -1. daily sedation vacation -Acetaminophen 650 mg by tube every 6 hours as needed fever -Altered mentation secondary to toxic metabolic encephalopathy from sepsis and hypercapnia RESP: Acute hypoxemic and hypercarbic respiratory failure Multiple pulmonary nodules/septic emboli Pulmonary edema Left Hemothorax MRSA pneumonia HCAP with MRSA- present on admission -Continue abx. daily SAT/SBT Ventilator bundle. DuoNeb every 6 hours scheduled and albuterol aerosols every 2 hours as needed -MRSA pneumonia treatment below s/p 10 Fr pigtail chest tube, left, with >1L old dark blood. 06/07. currently to suction. Bedside US to evaluate worsening effusion Fluid studies consistent with hemothorax CT of the chest shows multiple pulmonary nodules with some cavitation indicating septic emboli CV: Septic shock Acute severe anion gap Metabolic acidosis- resolved Pulmonary edema-resolving Atrial fibrillation with RVR-currently normal sinus rhythm - Remains on norepinephrine drip to maintain mean arterial pressure greater than equal to 65mmHg, currently increased to 5 mcg/min - Dcd stress dose steroids 06/03/2018 - HD daily for volume removal and electrolyte/acid-base abnormalities. -4 L 06/08 - A. fib rate is controlled and currently normal sinus rhythm, cannot anticoagulate due to history of recent GI bleed GI/HEME/FEN: Recent GI bleed Acute anemia requiring transfusion Leukocytosis Hyperphosphatemia -Transfuse 2U PRBC with HD today -Nepro tube feeds at 45 cc an hour per attrition recommendations with Benaprotein 1 packet 3 times daily -Nutrition consult for TF recs -IV pantoprazole 40 mg IV daily -Docusate sodium/senna 1 tablet twice daily for bowel regimen -Calcium acetate 667 mg 3 times daily for elevated phosphorus. Recheck in a.m. /renal: End-stage renal disease on hemodialysis HeRO graft placed 09/2017, now removed due to graft infection - Nephrology: Dr. Davidson following - continue HD per nephrology, hemodialysis performed on Friday, plan for HD tomorrow - D/W Dr. davidson, remove suprapubic catheter -New Vas-Cath placed in groin left lower extremity. ID: Septic shock HeRO graft infection s/p removal HCAP pneumonia- present on admission MRSA septic emboli to lung Persistent MRSA bacteremia -Persistent MRSA bacteremia could be secondary to infected remnant of the AV graft, versus secondary seeding of the catheters -Removed Vas-Cath, and left IJ central line 06/03/18 -Last culture from 06/05 and 06/06 negative to date. Repeat blood cultures today - ID Dr. Mogran, abx management per ID - Dr. Umana following - 05/27, 05/28, 05/30, 06/01 and 06/04 blood cultures MRSA - 05/27 sputum cultures: Providencia, MRSA, e.coli - 06/02 wound with Arlet albicans - cont vancomycin: keep trough 15-20 cont rifampin - Continue fluconazole and gentamicin -Discontinued meropenem and micafungin - will need minimum 6 weeks coverage for MRSA graft infection ENDO: Type 2 diabetes Presumed Adrenal insufficiency -Sliding scale insulin with aspart insulin every 4 hours -hydrocortisone discontinued 06/03 PROPH: -Bilateral lower extremity SCDs. Sq Heparin. IV Protonix 40 mg every 12 LINES: -Removed OSH left IJ central line and OSH right femoral Vas-Cath on 06/03/2018 -New left femoral Vas-Cath placement 06/04/18 -left radial arterial line 05/27: -Placed new LIJ central line 06/08/18 due to ongoing pressor requirement Overall impression: likely shock may take time to resolve. hemothorax likely old and occult, unlikely to be active bleeding. if cultures persistently remain positive, would need to consider removal of distal remnant of graft, but clinically he is making slow improvements, and unlikely to have active ongoing bacteremic graft infection with continued forward progress. CCT 35 MIN
--- NOTE | 2018-06-10 12:28 | P.PNNP ---
Subjective Interval history: Patient is on ventilator and seen during hemodialysis Physical Exam Vital signs: Vital Signs 06/09/18 13:13 06/09/18 14:31 06/09/18 14:33 Temperature 98.5 F Pulse Rate 80 85 Respiratory Rate 20 19 Blood Pressure 113/61 Pulse Oximetry 99 98 06/09/18 14:50 06/09/18 15:50 06/09/18 16:06 Temperature 98.2 F Pulse Rate 81 Respiratory Rate 19 16 Blood Pressure Pulse Oximetry 06/09/18 19:00 06/09/18 22:00 06/09/18 22:30 Temperature 94 F L Pulse Rate 74 92 H Respiratory Rate 16 16 23 Blood Pressure 99/65 L Pulse Oximetry 98 98 06/09/18 23:00 06/10/18 01:00 06/10/18 03:00 Temperature 94 F L 94 F L Pulse Rate 79 77 Respiratory Rate 18 24 18 Blood Pressure 105/54 L 90/49 L Pulse Oximetry 98 97 98 06/10/18 04:24 06/10/18 07:00 06/10/18 08:14 Temperature 98.1 F Pulse Rate 76 93 H Respiratory Rate 16 16 16 Blood Pressure 73/39 L Pulse Oximetry 97 98 06/10/18 09:32 06/10/18 11:00 Temperature 98.9 F Pulse Rate 104 H 107 H Respiratory Rate 16 21 Blood Pressure 123/54 L Pulse Oximetry 99 Intake & Output 06/09/18 06/10/18 06/10/18 18:59 06:59 18:59 Intake Total 1030 / 1030 810 / 810 3 / 3 Output Total 210 / 210 320 / 320 3000 / 3000 Balance 820 / 820 490 / 490 -2997 / -2997 Weight 136 kg Intake: IV 400 / 400 200 / 200 3 / 3 Diprivan 1000 mg/100 ml Inj 1, 200 / 200 000 mg In 100 ml @ 5 MCG/KG/MIN 3.87 mls/hr IV.CONT TITRATE PRN Rx#:[id number] Flexbumin 25% Inj 100 ML @ 60 100 / 100 100 / 100 mls/hr IV.SIG Q12H TRACIE Rx#: [id number] Diflucan 200 mg Premix Bag 100 100 / 100 100 / 100 ML @ 100 mls/hr IV.SIG Q24H TRACIE Rx#:[id number] Levophed-Dextrose 4 mg/250 ml 3 / 3 Drip 4 mg In 250 ml @ 2 MCG/MIN 7.5 mls/hr IV.SIG TITRATE PRN Rx#:[id number] Oral 0 / 0 Tube Feeding 480 / 480 520 / 520 Tube Irrigant 150 / 150 Water Bolus Amount 90 / 90 Output: Urine 0 / 0 Stool 160 / 160 160 / 160 Urine/Stool Mix 150 / 150 Hemodialysis Amount 3000 / 3000 Chest Tube Drainage 50 / 50 10 / 10 #1 Left Lower Mid-Axillary 50 / 50 10 / 10 Chest Other: Date of Last Bowel Movement 06/08/18 06/08/18 06/08/18 - Constitutional no acute distress - Routine HEENT Exam Head: Present: normocephalic - Routine Neck Exam Present: supple - Routine Respiratory Exam Present: CTA bilaterally - Routine Cardiovascular Exam Present: irregular rhythm - Routine Abdominal Exam Present: soft, normoactive bowel sounds - Routine Extremities Exam Present: edema - Urinary Catheter Management Suprapubic Cath placed during this visit: no Assessment and Plan - Assessment (1) End stage renal disease on dialysis Code(s): N18.6 - End stage renal disease; Z99.2 - Dependence on renal dialysis Status: Acute (2) Acute hypoxemic respiratory failure Code(s): J96.01 - Acute respiratory failure with hypoxia Status: Deleted (3) Arteriovenous graft infection Code(s): T82.7XXA - Infection and inflammatory reaction due to other cardiac and vascular devices, implants and grafts, initial encounter Status: Deleted (4) Atrial fibrillation with RVR Code(s): I48.91 - Unspecified atrial fibrillation Status: Deleted (5) Hemodialysis access, AV graft Code(s): Z99.2 - Dependence on renal dialysis Status: Acute - Plan Patient has sepsis and undergoing treatment with IV vancomycin He is scheduled to do dialysis, Friday and Friday HD today seen during dialysis UF 3 L as tolerated he did have to restart dialysis for 1-1/2 hours Apparent HeRO infection and MRSA: Removal of previous left IJ port, s/p partial removal for right arm graft and HeRO outflow component. Ongoing hypotension - follow with ID and Vascular Continue on Friday and Friday schedule --
--- NOTE | 2018-06-10 12:47 | CT ---
EXAM DATE: 06/10/2018 12:34 PM EDT AGE/SEX: 73 years / Male INDICATIONS: Increasing effusion versus collapse. CLINICAL DATA: This is the patient's initial encounter. Patient reports that signs and symptoms have been present for 1 day and indicates a pain score of Nonresponsive. MEDICAL/SURGICAL HISTORY: Cardiovascular disease. Hypertension. Renal disease, end stage. None. RADIATION DOSE: 20.10 CTDI (mGy) COMPARISON: [facility] [place], CHEST 1V SINGLE AP, 06/10/2018. [facility] [place], CT CHEST W/O CONTRAST, 06/09/2018. . TECHNIQUE: Multiple contiguous axial images were obtained through the chest without contrast. Image s were obtained in suspended respiration using multiple row detector helical technique. Using automa david exposure control and adjustment of the mA and/or kV according to patient size, radiation dose was kept as low as reasonably achievable to obtain optimal diagnostic quality images. DICOM format imag e data is available electronically for review and comparison. FINDINGS: Endotracheal tube is present. There are diffuse bilateral patchy parenchymal infiltrates identified w ith dense consolidation in the lower lobes left greater than right. The examination demonstrates dorcas ral small cavitary foci including a 6.3 mm right upper lobe cavitary lesion, thick walled cavitary no dule in the right lower lobe measuring 1.5 cm, a noncalcified nodule measuring 8.6 mm in the right mi ddle lobe, right upper lobe 7.7 mm nodule. There is a vascular stent at the level the right subclavia n artery. Degenerative changes of the spine are noted. Enteric tube is noted and the tip terminates i n the distal stomach. Coronary artery calcification is noted. There are moderate bilateral effusions. A left-sided chest tube is present. CONCLUSION: 1. Bilateral parenchymal infiltrates are seen as well as bilateral moderate effusions left greater t perez right. 2. Pulmonary nodules are identified including cavitary lesions. Electronically signed by: Sid Sandoval MD 06/10/2018 12:45 PM EDT
[2018-06-10] MEDS ORDERED: fentaNYL Citrate Inj 100 MCG/2 ML Ampul IV.PUSH ONE (12:58)
[2018-06-10] MEDS ORDERED: fentaNYL Citrate Inj 100 MCG/2 ML Ampul ONE (13:06)
--- NOTE | 2018-06-10 13:49 | P.PCN ---
Date of procedure: 06/10/18 Pre-op diagnosis: Hemothorax, loculated Post-op diagnosis: same Procedure: Left Tube Thoracostomy Procedure Note Left 29 [place] chest tube Consent: Obtained from Anesthesia: 1% lidocaine locally Description of the Procedure: The patient was placed in the supine position. Effusion confirmed on US and CT chest. The arm was abducted above the head and secured. The left lateral chest was prepped and draped sterilely. 1% Lidocaine was infiltrated subcutaneously and into the tissues down to the periosteum of the rib. The 6th intercostal space was identified. A 1 cm incision was made using a #11 blade, and the subcutaneous tissue superficial and superior to the rib was dissected bluntly to the level of the pleura. The pleura was then entered bluntly. Old bloody serosanguineous drainage was noted from the pleural space. The disruption in the parietal pleura was expanded bluntly and a finger was inserted and swept carefully in all directions. A 29 [place] chest tube was then inserted. The chest tube was directed posteroinferiorly. The chest tube was sutured to the skin at the insertion site , and connected securely with tape to a pleurovac. A sterile occlusive dressing was placed over the insertion site. No immediate complications were noted. A post-procedure chest x-ray is pending at the time of this note. Estimated blood loss is 3 ml. Approximately 400 mL's of dark old bloody drainage was removed from the left chest immediately. Anesthesia: local Surgeon: Corey Ortega Estimated blood loss (mL): 3 Pathology: other (fluid studies) Condition: critical Disposition: ICU
--- NOTE | 2018-06-10 14:28 | XR ---
EXAM DATE: 06/10/2018 2:24 PM EDT AGE/SEX: 73 years / Male INDICATIONS: Chest tube placement. CLINICAL DATA: This is the patient's initial encounter. Patient reports that signs and symptoms have been present for 1 day and indicates a pain score of Nonresponsive. MEDICAL/SURGICAL HISTORY: Non-responsive. Non-responsive. [place] [facility] [place] 1[place] SINGLE [place]/10/2018. . FINDINGS: A single AP view of the chest demonstrates interval placement of a left thoracostomy tube which cours es posteriorly and inferiorly within the left hemithorax within the subpulmonic space. Diffuse pulmon nia infiltrates most pronounced on the left are unchanged. No effusions observed. No pneumothorax. A small amount of subcutaneous air overlies the left chest. Tip of the endotracheal tube 3 cm from the kimberley. Left sided central line. Nasogastric tube courses off the inferior margin of the film. Heart is normal in size. CONCLUSION: 1. Interval placement of a subpulmonic left-sided chest tube with small volume subcutaneous air. 2. Unchanged bilateral infiltrates. Electronically signed by: Clinton Melendez MD 06/10/2018 2:27 PM EDT
[2018-06-10 15:52] LABS: Eosinophils,Pleural Fluid 6 %; Lymphocytes,Pleural Fluid 22 %; Mesothelial,Pleural Fluid 2 %; Monocytes,Pleural Fluid 10 %; Neutrophils,Pleural Fluid 57 %
[2018-06-10 15:57] LABS: RBC,Pleural Fluid 469702 /mm3 (0-0)
[2018-06-10 16:56] LABS: Hematocrit 25.1 % (39.0-51.0); Hemoglobin 8.7 gm/dL (13.0-17.0); Mean Corpuscular HGB Conc 34.5 % (32.0-36.0); Mean Corpuscular Hemoglobin 29.9 pg (27.0-34.0); Mean Corpuscular Volume 86.5 fL (80.0-100.0); Mean Platelet Volume 8.1 fL (7.0-11.0); Platelet Count 251 th/mm3 (150-450); Red Blood Count 2.91 mil/mm3 (4.50-5.90); Red Cell Distribution Width 17.1 % (11.6-17.2); White Blood Count 6.2 th/mm3 (4.0-11.0)
[2018-06-10 20:28] LABS: Total Protein,Pleural Fluid 6.7 gm/dL
[2018-06-10] MEDS: fentaNYL 10 mcg/mL Premix Drip 2,500 MCG/250 ML BAG IV.SIG PRN (21:43)
--- NOTE | 2018-06-11 03:34 | XR ---
EXAM DATE: 06/11/2018 3:21 AM EDT AGE/SEX: 73 years / Male INDICATIONS: Shortness of breath, possible pulmonary disease. CLINICAL DATA: This is the patient's subsequent encounter. Patient reports that signs and symptoms h ave been present for 2 weeks and indicates a pain score of Nonresponsive. MEDICAL/SURGICAL HISTORY: Deep venous thrombosis. Diabetes mellitus type II. Hypertension. [place] l disease, end stage None. [place] [facility] [place]10/[place]. . FINDINGS: Portable AP view of the chest demonstrates a normal-sized cardiac silhouette. ETT, nasogastric tube, and left IJ line remain present. Lungs are underinflated with bilateral airspace consolidation, left greater than right. However, there is improved aeration within the left lung. No pneumothorax or defi nite pleural effusion is seen. Tube overlies the left upper quadrant/left lower lung zone. CONCLUSION: Improved left lung airspace consolidation. There is residual bilateral airspace consolidation, left g reater than right. Electronically signed by: Jordan Sahni MD 06/11/2018 3:33 AM EDT
[2018-06-11] MEDS: Sodium Chlor 0.9% Inj 100 ML IV.SIG SCH ×10 (04:37→23:00)
[2018-06-11] MEDS: Insulin NovoLOG Aspart Correctional Sugar Inj SQ SCH ×5 (04:38→21:35)
[2018-06-11 05:35] LABS: Hematocrit 25.3 % (39.0-51.0); Hemoglobin 8.7 gm/dL (13.0-17.0); Mean Corpuscular HGB Conc 34.4 % (32.0-36.0); Mean Corpuscular Hemoglobin 29.7 pg (27.0-34.0); Mean Corpuscular Volume 86.5 fL (80.0-100.0); Mean Platelet Volume 8.3 fL (7.0-11.0); Platelet Count 280 th/mm3 (150-450); Red Blood Count 2.92 mil/mm3 (4.50-5.90); Red Cell Distribution Width 17.2 % (11.6-17.2)
[2018-06-11 06:10] LABS: Alanine Aminotransferase 12 U/L (12-78); Albumin 3.6 g/dL (3.4-5.0); Alkaline Phosphatase 135 U/L (45-117); Anion Gap 14 meq/L (5-15); Aspartate Aminotransferase 17 U/L (15-37); Blood Urea Nitrogen 56 mg/dL (7-18); Calcium 10.5 mg/dL (8.5-10.1); Carbon Dioxide 25.4 meq/L (21.0-32.0); Chloride 96 meq/L (98-107); Glomerular Filtration Rate 10 mL/min (>89); Glucose,Random 173 mg/dL (74-106); Magnesium 2.3 mg/dL (1.5-2.5); Phosphorus 4.8 mg/dL (2.5-4.9); Potassium 3.6 meq/L (3.5-5.1); Sodium 135 meq/L (136-145); Total Protein 8.8 g/dL (6.4-8.2)
[2018-06-11] MEDS: fentaNYL 10 mcg/mL Premix Drip 2,500 MCG/250 ML BAG IV.SIG PRN (08:36)
[2018-06-11] MEDS: Calcium Acetate 667 MG Capsule PO SCH ×3 (08:38→17:26)
[2018-06-11] MEDS: Senna/Docusate Sodium 8.6/50 MG Tablet PO SCH ×2 (08:39→21:39)
[2018-06-11] MEDS: Mupirocin 2% Nasal Oint Topical Syringe EACH NARE SCH ×2 (08:39→21:36)
[2018-06-11] MEDS: Hypromellose 0.3% Opth Gel 10 GM Bottle EACH EYE SCH ×2 (08:39→21:39)
[2018-06-11] MEDS: Beneprotein Powder Packet G-TUBE SCH ×3 (08:39→17:32)
--- NOTE | 2018-06-11 08:57 | P.PNCC ---
Subjective Subjective Remarks/Hospital Course: Mr. Laguerre is a 73-year-old -[place]ub[place] male with past medical history significant for end-stage renal disease on hemodialysis, hypertension, complicated vascular access, HeRO graft placement by Dr. Umana on 09/23/2017, revision and PTFE replacement 12/25/17. who presented to the [facility] with probable sepsis and shock. Dr. Umana was contacted and patient was accepted for transfer to CVICU in [facility]. I immediately evaluated the patient on arrival to CVICU. Patient is currently on BiPAP (transported on BiPAP) severely encephalopathic hardly wakes up to sternal rub, with a rapid shallow breathing. BiPAP settings 18/8, 60% FiO2. He is literally unresponsive and not protecting airway. Currently he is on Levophed at 20 mcg/min with a map 65-70. He is also on amiodarone for atrial fibrillation with RVR. Because of lack of airway protection, severe encephalopathy, septic shock and hypoxia I proceeded with endotracheal intubation. His glottic opening was completely occluded with thick secretions, several minutes of suctioning needed to clear the secretions prior to intubation. Postintubation Levophed had to be increased to 30 mcg/min, I also placed an arterial line. All cultures, routine labs and lactic acid pending at this time. I have started him on vancomycin and Zosyn. Discussed case with Dr. Umana extensively Patient was unable to provide any history, according to the RN who got report patient apparently had GI bleed, underwent EGD with cauterization of duodenal ulcer few days ago. Will avoid heparin for DVT prophylaxis. His postintubation ABG showed severe hypoxia with significant AA gradient, metabolic acidosis, and a hemoglobin of 7.6. Currently Levophed is increased to 30 mcg/min, I will transfuse 1 unit PRBC. Chest x-ray shows pulmonary edema will arrange for hemodialysis once his shock is improves. At this time he will not be able to tolerate either hemodialysis or even CVVH 05/28: initially evaluated around 6:30am. patient in refractory septic shock. added epinephrine to levophed and vasopressin. discussed with Dr. Umana. obtained u/s of the right upper extremity which demonstrated fluid collection surrounding the HeRO graft which was heterogenous in nature. added single dose of Amikacin to vanc/zosyn regimen to cover ESBL organisms. patient remains in shock. per verbal report from OSH, blood cultures growing MRSA. taken to OR urgently and large amount of purulent drainage debrided from around catheter. HeRO catheter removed. returns from OR persistently unstable. acidosis worsening. bicarb given. discussed with nephrology and will need CRRT. 05/29: s/p emergent debridement and removal of HeRO graft. today vasopressor doses are somewhat lower, although remains on levo,vaso,epi. lactate cleared. s/ p IHD today with 3L removal. blood growing MRSA. sputum growing e.coli, providencia, MRSA. wbc remains elevated. 05/30: off vasopressors. getting IHD again today. hgb 7 and receiving 1 unit prbc during dialysis. encephalopathy persists, not following commands. 05/31: clinically continues to improve. not following commands, very slow to arouse. bradycardic this AM, but tolerating hemodynamically. HD yesterday with volume removal. 06/01: Clinically improved off all pressors. Sedated with propofol and fentanyl , opens eyes moves extremities not following commands. Plan for hemodialysis today. Initiate CPAP trial after hemodialysis. Persistently bacteremic with MRSA, repeat cultures in 24 hours 06/02: Remains in septic shock, though pressor requirement has improved. Hypotensive bradycardic while getting HD yesterday, started on Dopamine, now at 3 mcg/kg/min. Pus being expressed from upper part of right upper chest [id number] (HeRO AVG removal site). Hypothermic. Some pus around the suprapubic catheter 06/03: Patient had been weaned off all pressors now. Not requiring dopamine for the last 18 hours. However WBC count 13 K today. Persistent bacteremia with MRSA. Source could be right upper extremity graft remnant versus infected invasive catheters. After hemodialysis removal HD catheter, also remove left IJ central line. Repeat blood cultures in 24 hours. Antibiotics broadened by ID yesterday 06/04: Showing some clinical signs of improvement. Not requiring pressors hypothermia has resolved. CBC still pending patient is more awake following commands tolerating CPAP now. Left IJ central line and right femoral Vas-Cath was removed yesterday. Plan for next dialysis is tomorrow will place new Vas- Cath tomorrow a.m. to give 'line holiday'. 06/05: Back on norepinephrine at 10 mics per minute. Blood blood pressure variable, intermittently hypotensive. New Vas-Cath placed in groin functional. Most recent cultures continued to grow gram-positive cocci. Alert when propofol is lightened Subjective: 06/06: Afebrile. Remains on norepinephrine drip at 7 mcg/min. Arousable on the ventilator on sedation vacation. Commands. -3 L with hemodialysis yesterday. Repeat blood cultures done the same. Right upper extremity ultrasound pending.. 06/07: remains on vasopressors. cxr today with new left pleural effusion which is quite large: confirmed on bedside lung ultrasound. pigtail chest tube placed with > 1L old hemothorax. hgb slightly lower, but hemodynamically stable. discussed with nephrology and vascular surgery and most ideal plan would be to transfuse prbc tomorrow with HD. 06/08: Remains intubated sedated with propofol. Currently on 8 mcg/min of Levophed but map is above 75. Getting 2 units of PRBC with dialysis for hemoglobin of 6.9. Left pigtail chest tube drained almost 2 L old blood appearing. I will request fluid studies from any residual drainage. CT of the chest to evaluate for any residual fluid. 06/09: Intubated sedated, wakes up and follows commands. On Levophed at 1 mcg/ min. CT of the chest shows small left pleural effusion bibasilar consolidation , multiple bilateral pulmonary nodules some cavitation indicating septic emboli most likely from staff. Blood cultures from 06/05/18 and 06/06/18 negative to date 06/10: Remains intubated slightly sedated follows commands. Levophed requirement has slightly increased overnight currently on 5 mcg/min. We will recheck blood cultures. Getting hemodialysis today. Chest x-ray shows severe left-sided airspace disease. Check ultrasound of the chest post dialysis. Left pigtail chest tube output 60 ml in last 24 hours 06/11 Patient is sedated with Diprivan and Fentanyl infusion, on Levophed 11 mics. Afebrile. Left pigtail catheter had 50 ml output and a second large bore CT was placed yesterday had approx 100ml overnight. Objective Vital Signs / I&O: Vital Signs 06/10/18 09:32 06/10/18 11:00 06/10/18 12:43 Temperature 98.9 F Pulse Rate 104 H 107 H 101 H Respiratory Rate 16 21 38 H Blood Pressure 123/54 L Pulse Oximetry 99 06/10/18 12:46 06/10/18 13:00 06/10/18 13:30 Temperature 96.5 F L Pulse Rate 102 H 97 H 90 Respiratory Rate 24 23 26 H Blood Pressure 127/63 132/69 119/59 L Pulse Oximetry 98 100 100 06/10/18 14:00 06/10/18 14:31 06/10/18 15:00 Temperature Pulse Rate 84 90 87 Respiratory Rate 21 17 16 Blood Pressure 114/61 125/57 L 122/58 L Pulse Oximetry 100 98 97 06/10/18 15:30 06/10/18 16:00 06/10/18 16:30 Temperature 98.0 F Pulse Rate 89 95 H 91 H Respiratory Rate 19 19 19 Blood Pressure 121/62 124/57 L 110/69 Pulse Oximetry 99 99 98 06/10/18 17:00 06/10/18 17:30 06/10/18 18:00 Temperature Pulse Rate 96 H 93 H 97 H Respiratory Rate 19 20 18 Blood Pressure 116/58 L 105/53 L 104/53 L Pulse Oximetry 100 100 100 06/10/18 18:30 06/10/18 19:00 06/10/18 19:19 Temperature Pulse Rate 101 H 97 H 93 H Respiratory Rate 19 18 16 Blood Pressure 112/56 L 121/56 L 105/59 L Pulse Oximetry 100 100 100 06/10/18 19:30 06/10/18 20:00 06/10/18 20:30 Temperature 98.7 F Pulse Rate 94 H 94 H 96 H Respiratory Rate 18 17 18 Blood Pressure 107/56 L 114/55 L 108/59 L Pulse Oximetry 100 100 99 06/10/18 20:41 06/10/18 21:00 06/10/18 21:30 Temperature Pulse Rate 93 H 94 H Respiratory Rate 16 19 19 Blood Pressure 123/59 L 126/61 Pulse Oximetry 98 98 100 06/10/18 22:00 06/10/18 22:30 06/10/18 23:00 Temperature Pulse Rate 96 H 92 H 83 Respiratory Rate 27 H 34 H 16 Blood Pressure 134/68 140/65 Pulse Oximetry 100 100 100 06/10/18 23:01 06/10/18 23:21 06/10/18 23:30 Temperature 98.2 F Pulse Rate 85 79 79 Respiratory Rate 21 21 14 Blood Pressure 90/53 L 87/51 L 91/55 L Pulse Oximetry 100 100 100 06/10/18 23:44 06/11/18 00:00 06/11/18 00:30 Temperature Pulse Rate 75 80 75 Respiratory Rate 20 26 H 19 Blood Pressure 102/55 L 107/59 L 111/54 L Pulse Oximetry 100 100 100 06/11/18 00:53 06/11/18 01:00 06/11/18 01:30 Temperature Pulse Rate 77 71 Respiratory Rate 17 20 18 Blood Pressure 98/56 L 98/53 L Pulse Oximetry 100 99 98 06/11/18 02:00 06/11/18 02:30 06/11/18 03:00 Temperature Pulse Rate 70 71 67 Respiratory Rate 17 26 H 17 Blood Pressure 97/51 L 93/51 L 109/56 L Pulse Oximetry 98 99 100 06/11/18 03:30 06/11/18 04:00 06/11/18 04:31 Temperature 97.8 F Pulse Rate 69 67 79 Respiratory Rate 17 17 23 Blood Pressure 111/58 L 107/57 L 115/56 L Pulse Oximetry 100 98 98 06/11/18 05:00 06/11/18 05:30 06/11/18 06:00 Temperature Pulse Rate 74 71 75 Respiratory Rate 19 18 19 Blood Pressure 109/54 L 106/51 L Pulse Oximetry 100 99 99 06/11/18 06:01 06/11/18 07:13 Temperature Pulse Rate 74 Respiratory Rate 18 16 Blood Pressure 96/51 L Pulse Oximetry 100 100 Intake & Output 06/10/18 06/11/18 06/11/18 18:59 06:59 18:59 Intake Total 616 / 616 930 / 930 250 / 250 Output Total 3350 / 3350 250 / 250 Balance -2734 / -2734 680 / 680 250 / 250 Weight 137 kg Intake: IV 203 / 203 447 / 447 250 / 250 Diprivan 1000 mg/100 ml Inj 1, 100 / 100 100 / 100 000 mg In 100 ml @ 5 MCG/KG/MIN 3.87 mls/hr IV.CONT TITRATE PRN Rx#:[id number] Flexbumin 25% Inj 100 ML @ 60 100 / 100 mls/hr IV.SIG Q12H TRACIE Rx#: [id number] Levophed-Dextrose 4 mg/250 ml 3 / 3 347 / 347 Drip 4 mg In 250 ml @ 2 MCG/MIN 7.5 mls/hr IV.SIG TITRATE PRN Rx#:[id number] fentaNYL 10 mcg/mL Premix Drip 250 / 250 2,500 mcg In 250 ml @ 50 MCG/HR 5 mls/hr IV.SIG TITRATE PRN Rx #:[id number] Tube Feeding 413 / 413 383 / 383 Tube Irrigant 100 / 100 Output: Urine 0 / 0 Stool 100 / 100 Hemodialysis Amount 3000 / 3000 Chest Tube Drainage 350 / 350 150 / 150 #1 Left Lower Mid-Axillary 100 / 100 Chest #2 Left Lower Mid-Axillary 350 / 350 50 / 50 Chest Other: Date of Last Bowel Movement 06/08/18 06/11/18 Result Diagrams: 06/11/18 04:15 06/11/18 04:15 Other Results: Laboratory Results - last 12 hr 06/10/18 06/11/18 06/11/18 23:08 04:08 04:15 WBC RBC Hgb Hct MCV MCH MCHC RDW Plt Count MPV Sodium 135 L Potassium 3.6 Chloride 96 L Carbon Dioxide 25.4 Anion Gap 14 BUN 56 H Creatinine 6.77 H Estimated GFR 10 L POC Glucose 244 H 188 H Random Glucose 173 H Calcium 10.5 H D Phosphorus 4.8 D Magnesium 2.3 Total Bilirubin 0.5 AST 17 ALT 12 Alkaline Phosphatase 135 H Total Protein 8.8 H D Albumin 3.6 D 06/11/18 04:15 WBC 7.0 RBC 2.92 L Hgb 8.7 L Hct 25.3 L MCV 86.5 MCH 29.7 MCHC 34.4 RDW 17.2 Plt Count 280 MPV 8.3 Sodium Potassium Chloride Carbon Dioxide Anion Gap BUN Creatinine Estimated GFR POC Glucose Random Glucose Calcium Phosphorus Magnesium Total Bilirubin AST ALT Alkaline Phosphatase Total Protein Albumin Imaging: Abdomen X-Ray 05/31/18 00:00 CONCLUSION: 1. Suction-type NGT in the stomach. Upper Extremity Ultrasound 06/06/18 00:00 CONCLUSION: 1. Nonspecific complex fluid collection could be postprocedural change, however infectious process is not excluded. Chest CT 06/10/18 12:01 CONCLUSION: 1. Bilateral parenchymal infiltrates are seen as well as bilateral moderate effusions left greater than right. 2. Pulmonary nodules are identified including cavitary lesions. Chest X-Ray 06/11/18 06:00 CONCLUSION: Improved left lung airspace consolidation. There is residual bilateral airspace consolidation, left greater than right. Objective Remarks: GENERAL: 73-year-old -[place] male, lying in bed, intubated, light sedation HEENT: Normocephalic. Atraumatic. Pupils equal, round, reactive. NECK: Trachea is midline. Orotracheally intubated. CHEST: PRVC. equal chest rise. Air entry decreased predominantly in the left lung newman with few coarse rhonchi bilaterally. Good bilateral air movement. Left pigtail catheter with 60 ml output in last 24 hours CARDIOVASCULAR: Atrial fibrillation rate controlled. No murmurs. No JVD. ABDOMEN: Soft, nontender, nondistended. No guarding. Supra pubic catheter in place MUSCULOSKELETAL: Right upper extremity s/p debridement upper incision W/D dressing. Pulses 2+. No peripheral edema. NEUROLOGICAL: Opens eyes spontaneously off sedation. Follows commands 4 when light. No focal deficits Assessment and Plan - Assessment and Plan Plan: NEURO/PSYCH: Acute metabolic encephalopathy -Currently on a propofol drip and Fentanyl infusion for sedation -Goal of RASS -1. daily sedation vacation -Acetaminophen 650 mg by tube every 6 hours as needed fever -Altered mentation secondary to toxic metabolic encephalopathy from sepsis and hypercapnia RESP: Acute hypoxemic and hypercarbic respiratory failure Multiple pulmonary nodules/septic emboli Pulmonary edema Left Hemothorax MRSA pneumonia HCAP with MRSA- present on admission Continue with vent support keep sats >92% -Continue abx. daily SAT/SBT Ventilator bundle. DuoNeb every 6 hours scheduled and albuterol aerosols every 2 hours as needed -MRSA pneumonia treatment below s/p 10 Fr pigtail chest tube, left, with >1L old dark blood. 06/07. currently to suction. s/p 28Fr CT placement 06/10 with 400ml removed on insertion and 100ml output overnight. Fluid studies consistent with hemothorax CXR today: Improved left lung airspace consolidation. There is residual bilateral airspace consolidation, left greater than right. CT of the chest shows multiple pulmonary nodules with some cavitation indicating septic emboli CV: Septic shock Acute severe anion gap Metabolic acidosis- resolved Pulmonary edema-resolving Atrial fibrillation with RVR-currently normal sinus rhythm - Wean off Levophed keep MAP>65mmHg - A. fib rate is controlled and currently normal sinus rhythm, cannot anticoagulate due to history of recent GI bleed Check 2D echo GI/HEME/FEN: Recent GI bleed Acute anemia requiring transfusion Leukocytosis Hyperphosphatemia -s/p Transfuse 2U PRBC with HD 06/10 -Nepro tube feeds at 45 cc an hour per nutrition recommendations with Beneprotein 1 packet 3 times daily -IV pantoprazole 40 mg IV daily -Docusate sodium/senna 1 tablet twice daily for bowel regimen -Calcium acetate 667 mg 3 times daily for elevated phosphorus. /renal: End-stage renal disease on hemodialysis HeRO graft placed 09/2017, now removed due to graft infection - Nephrology: Dr. Davidson following - continue HD per nephrology, Monitor renal function, I/O's, avoid nephrotoxins ID: Septic shock HeRO graft infection s/p removal HCAP pneumonia- present on admission MRSA septic emboli to lung Persistent MRSA bacteremia -Persistent MRSA bacteremia could be secondary to infected remnant of the AV graft, versus secondary seeding of the catheters -Removed Vas-Cath, and left IJ central line 06/03/18 - ID Dr. Morgan, abx management per ID - Dr. Umana following - 05/27, 05/28, 05/30, 06/01 and 06/04 blood cultures MRSA - 05/27 sputum cultures: Providencia, MRSA, e.coli - 06/02 wound with Arlet albicans - cont vancomycin: keep trough 15-20 cont rifampin - Continue fluconazole - will need minimum 6 weeks coverage for MRSA graft infection ENDO: Type 2 diabetes Presumed Adrenal insufficiency -Sliding scale insulin with aspart insulin every 4 hours PROPH: -Bilateral lower extremity SCDs. Sq Heparin. IV Protonix 40 mg every 12 LINES: -Removed OSH left IJ central line and OSH right femoral Vas-Cath on 06/03/2018 -New left femoral Vas-Cath placement 06/04/18 -left radial arterial line 05/27: -New LIJ central line 06/08/18 due to ongoing pressor requirement Overall impression: likely shock may take time to resolve. hemothorax likely old and occult, unlikely to be active bleeding. if cultures persistently remain positive, would need to consider removal of distal remnant of graft, but clinically he is making slow improvements, and unlikely to have active ongoing bacteremic graft infection with continued forward progress. CCT 35 MIN
--- NOTE | 2018-06-11 10:33 | P.PNVS ---
Subjective Post Op Day #: 14 Procedure: Excision of arm and neck grafts, grossly infected Subjective/Hospital Course: remains on pressors sedated currently on CPAP Objective Vital Signs / I&O: Vital Signs 06/10/18 11:00 06/10/18 12:43 06/10/18 12:46 Temperature 98.9 F Pulse Rate 107 H 101 H 102 H Respiratory Rate 21 38 H 24 Blood Pressure 123/54 L 127/63 Pulse Oximetry 99 98 06/10/18 13:00 06/10/18 13:30 06/10/18 14:00 Temperature 96.5 F L Pulse Rate 97 H 90 84 Respiratory Rate 23 26 H 21 Blood Pressure 132/69 119/59 L 114/61 Pulse Oximetry 100 100 100 06/10/18 14:31 06/10/18 15:00 06/10/18 15:30 Temperature Pulse Rate 90 87 89 Respiratory Rate 17 16 19 Blood Pressure 125/57 L 122/58 L 121/62 Pulse Oximetry 98 97 99 06/10/18 16:00 06/10/18 16:30 06/10/18 17:00 Temperature 98.0 F Pulse Rate 95 H 91 H 96 H Respiratory Rate 19 19 19 Blood Pressure 124/57 L 110/69 116/58 L Pulse Oximetry 99 98 100 06/10/18 17:30 06/10/18 18:00 06/10/18 18:30 Temperature Pulse Rate 93 H 97 H 101 H Respiratory Rate 20 18 19 Blood Pressure 105/53 L 104/53 L 112/56 L Pulse Oximetry 100 100 100 06/10/18 19:00 06/10/18 19:19 06/10/18 19:30 Temperature Pulse Rate 97 H 93 H 94 H Respiratory Rate 18 16 18 Blood Pressure 121/56 L 105/59 L 107/56 L Pulse Oximetry 100 100 100 06/10/18 20:00 06/10/18 20:30 06/10/18 20:41 Temperature 98.7 F Pulse Rate 94 H 96 H Respiratory Rate 17 18 16 Blood Pressure 114/55 L 108/59 L Pulse Oximetry 100 99 98 06/10/18 21:00 06/10/18 21:30 06/10/18 22:00 Temperature Pulse Rate 93 H 94 H 96 H Respiratory Rate 19 19 27 H Blood Pressure 123/59 L 126/61 134/68 Pulse Oximetry 98 100 100 06/10/18 22:30 06/10/18 23:00 06/10/18 23:01 Temperature 98.2 F Pulse Rate 92 H 83 85 Respiratory Rate 34 H 16 21 Blood Pressure 140/65 90/53 L Pulse Oximetry 100 100 100 06/10/18 23:21 06/10/18 23:30 06/10/18 23:44 Temperature Pulse Rate 79 79 75 Respiratory Rate 21 14 20 Blood Pressure 87/51 L 91/55 L 102/55 L Pulse Oximetry 100 100 100 06/11/18 00:00 06/11/18 00:30 06/11/18 00:53 Temperature Pulse Rate 80 75 Respiratory Rate 26 H 19 17 Blood Pressure 107/59 L 111/54 L Pulse Oximetry 100 100 100 06/11/18 01:00 06/11/18 01:30 06/11/18 02:00 Temperature Pulse Rate 77 71 70 Respiratory Rate 20 18 17 Blood Pressure 98/56 L 98/53 L 97/51 L Pulse Oximetry 99 98 98 06/11/18 02:30 06/11/18 03:00 06/11/18 03:30 Temperature Pulse Rate 71 67 69 Respiratory Rate 26 H 17 17 Blood Pressure 93/51 L 109/56 L 111/58 L Pulse Oximetry 99 100 100 06/11/18 04:00 06/11/18 04:31 06/11/18 05:00 Temperature 97.8 F Pulse Rate 67 79 74 Respiratory Rate 17 23 19 Blood Pressure 107/57 L 115/56 L 109/54 L Pulse Oximetry 98 98 100 06/11/18 05:30 06/11/18 06:00 06/11/18 06:01 Temperature Pulse Rate 71 75 74 Respiratory Rate 18 19 18 Blood Pressure 106/51 L 96/51 L Pulse Oximetry 99 99 100 06/11/18 06:30 06/11/18 07:00 06/11/18 07:13 Temperature Pulse Rate 71 75 Respiratory Rate 17 20 16 Blood Pressure 107/54 L 102/52 L Pulse Oximetry 100 100 100 06/11/18 07:30 06/11/18 08:00 06/11/18 08:01 Temperature 98.1 F Pulse Rate 71 72 73 Respiratory Rate 18 23 19 Blood Pressure 115/56 L 106/53 L Pulse Oximetry 100 100 100 06/11/18 08:31 06/11/18 09:00 Temperature Pulse Rate 73 73 Respiratory Rate 16 19 Blood Pressure 92/55 L 103/53 L Pulse Oximetry 100 100 Intake & Output 06/10/18 06/11/18 06/11/18 18:59 06:59 18:59 Intake Total 616 / 616 930 / 930 250 / 250 Output Total 3350 / 3350 250 / 250 Balance -2734 / -2734 680 / 680 250 / 250 Weight 137 kg Intake: IV 203 / 203 447 / 447 250 / 250 Diprivan 1000 mg/100 ml Inj 1, 100 / 100 100 / 100 000 mg In 100 ml @ 5 MCG/KG/MIN 3.87 mls/hr IV.CONT TITRATE PRN Rx#:[id number] Flexbumin 25% Inj 100 ML @ 60 100 / 100 mls/hr IV.SIG Q12H TRACIE Rx#: [id number] Levophed-Dextrose 4 mg/250 ml 3 / 3 347 / 347 Drip 4 mg In 250 ml @ 2 MCG/MIN 7.5 mls/hr IV.SIG TITRATE PRN Rx#:[id number] fentaNYL 10 mcg/mL Premix Drip 250 / 250 2,500 mcg In 250 ml @ 50 MCG/HR 5 mls/hr IV.SIG TITRATE PRN Rx #:[id number] Tube Feeding 413 / 413 383 / 383 Tube Irrigant 100 / 100 Output: Urine 0 / 0 Stool 100 / 100 Hemodialysis Amount 3000 / 3000 Chest Tube Drainage 350 / 350 150 / 150 #1 Left Lower Mid-Axillary 100 / 100 Chest #2 Left Lower Mid-Axillary 350 / 350 50 / 50 Chest Other: Date of Last Bowel Movement 06/08/18 06/11/18 06/11/18 Exam: sedated, on CPAP [address] Laboratory Results - last 24 hr 06/10/18 06/10/18 06/10/18 11:03 13:50 13:50 WBC RBC Hgb Hct MCV MCH MCHC RDW Plt Count MPV Sodium Potassium Chloride Carbon Dioxide Anion Gap BUN Creatinine Estimated GFR POC Glucose 193 H Random Glucose Calcium Phosphorus Magnesium Total Bilirubin AST ALT Alkaline Phosphatase Total Protein Albumin Pleural pH 8.5 Pleural RBC [id number] H Pleural Nuc Cells 1859 H Pleural Neutrophils 57 Pleural Lymphocytes 22 Pleural Monocytes 10 Pleural Eosinophils 6 Pleural Histocytes 3 Pleural Mesothelial 2 Pleural Total Protein 6.7 Pleural LDH 680 Pleural Glucose 191 Pleural Amylase 91 06/10/18 06/10/18 06/10/18 16:32 16:43 20:33 WBC 6.2 RBC 2.91 L Hgb 8.7 L Hct 25.1 L MCV 86.5 MCH 29.9 MCHC 34.5 RDW 17.1 Plt Count 251 MPV 8.1 Sodium Potassium Chloride Carbon Dioxide Anion Gap BUN Creatinine Estimated GFR POC Glucose 261 H 247 H Random Glucose Calcium Phosphorus Magnesium Total Bilirubin AST ALT Alkaline Phosphatase Total Protein Albumin Pleural pH Pleural RBC Pleural Nuc Cells Pleural Neutrophils Pleural Lymphocytes Pleural Monocytes Pleural Eosinophils Pleural Histocytes Pleural Mesothelial Pleural Total Protein Pleural LDH Pleural Glucose Pleural Amylase 06/10/18 06/11/18 06/11/18 23:08 04:08 04:15 WBC RBC Hgb Hct MCV MCH MCHC RDW Plt Count MPV Sodium 135 L Potassium 3.6 Chloride 96 L Carbon Dioxide 25.4 Anion Gap 14 BUN 56 H Creatinine 6.77 H Estimated GFR 10 L POC Glucose 244 H 188 H Random Glucose 173 H Calcium 10.5 H D Phosphorus 4.8 D Magnesium 2.3 Total Bilirubin 0.5 AST 17 ALT 12 Alkaline Phosphatase 135 H Total Protein 8.8 H D Albumin 3.6 D Pleural pH Pleural RBC Pleural Nuc Cells Pleural Neutrophils Pleural Lymphocytes Pleural Monocytes Pleural Eosinophils Pleural Histocytes Pleural Mesothelial Pleural Total Protein Pleural LDH Pleural Glucose Pleural Amylase 06/11/18 06/11/18 04:15 08:38 WBC 7.0 RBC 2.92 L Hgb 8.7 L Hct 25.3 L MCV 86.5 MCH 29.7 MCHC 34.4 RDW 17.2 Plt Count 280 MPV 8.3 Sodium Potassium Chloride Carbon Dioxide Anion Gap BUN Creatinine Estimated GFR POC Glucose 284 H Random Glucose Calcium Phosphorus Magnesium Total Bilirubin AST ALT Alkaline Phosphatase Total Protein Albumin Pleural pH Pleural RBC Pleural Nuc Cells Pleural Neutrophils Pleural Lymphocytes Pleural Monocytes Pleural Eosinophils Pleural Histocytes Pleural Mesothelial Pleural Total Protein Pleural LDH Pleural Glucose Pleural Amylase Microbiology 06/10/18 20:45 Gram Stain - Final Sputum - Endotracheal 06/10/18 13:50 Gram Stain - Final Fluid - Pleural fluid 06/06/18 05:20 Aerobic Blood Culture - Preliminary Blood - Peripheral No growth in 4 days Anaerobic Blood Culture - Preliminary No growth in 4 days 06/06/18 05:40 Aerobic Blood Culture - Preliminary Blood - Peripheral No growth in 4 days Anaerobic Blood Culture - Preliminary No growth in 4 days 06/05/18 06:10 Aerobic Blood Culture - Final Blood - Peripheral No growth in 5 days Anaerobic Blood Culture - Final No growth in 5 days 06/05/18 06:19 Aerobic Blood Culture - Final Blood - Peripheral No growth in 5 days Anaerobic Blood Culture - Final No growth in 5 days Assessment and Plan - Assessment (1) Septic shock Code(s): A41.9 - Sepsis, unspecified organism; R65.21 - Severe sepsis with septic shock Status: Deleted (2) Arteriovenous graft infection Code(s): T82.7XXA - Infection and inflammatory reaction due to other cardiac and vascular devices, implants and grafts, initial encounter Status: Deleted - Plan POD#14 s/p excision of R neck and arm graft slow vent wean, on CPAP now 1. Continue vent wean and work towards extubation again may req trach - defer to ICU team 2. continue TF 3. Wean pressors, would favor gentle HD 4. W to D neck wound 5. Continue antibiotics
[2018-06-11] MEDS: Pantoprazole Inj 40 MG Vial IV.PUSH SCH ×2 (11:37→23:10)
[2018-06-11] MEDS: Albumin Human 25% Inj 100 ML IV.SIG SCH ×2 (11:38→23:10)
--- NOTE | 2018-06-11 15:11 | P.PNNP ---
Subjective Interval history: patient is on vent Physical Exam Vital signs: Vital Signs 06/10/18 15:30 06/10/18 16:00 06/10/18 16:30 Temperature 98.0 F Pulse Rate 89 95 H 91 H Respiratory Rate 19 19 19 Blood Pressure 121/62 124/57 L 110/69 Pulse Oximetry 99 99 98 06/10/18 17:00 06/10/18 17:30 06/10/18 18:00 Temperature Pulse Rate 96 H 93 H 97 H Respiratory Rate 19 20 18 Blood Pressure 116/58 L 105/53 L 104/53 L Pulse Oximetry 100 100 100 06/10/18 18:30 06/10/18 19:00 06/10/18 19:19 Temperature Pulse Rate 101 H 97 H 93 H Respiratory Rate 19 18 16 Blood Pressure 112/56 L 121/56 L 105/59 L Pulse Oximetry 100 100 100 06/10/18 19:30 06/10/18 20:00 06/10/18 20:30 Temperature 98.7 F Pulse Rate 94 H 94 H 96 H Respiratory Rate 18 17 18 Blood Pressure 107/56 L 114/55 L 108/59 L Pulse Oximetry 100 100 99 06/10/18 20:41 06/10/18 21:00 06/10/18 21:30 Temperature Pulse Rate 93 H 94 H Respiratory Rate 16 19 19 Blood Pressure 123/59 L 126/61 Pulse Oximetry 98 98 100 06/10/18 22:00 06/10/18 22:30 06/10/18 23:00 Temperature Pulse Rate 96 H 92 H 83 Respiratory Rate 27 H 34 H 16 Blood Pressure 134/68 140/65 Pulse Oximetry 100 100 100 06/10/18 23:01 06/10/18 23:21 06/10/18 23:30 Temperature 98.2 F Pulse Rate 85 79 79 Respiratory Rate 21 21 14 Blood Pressure 90/53 L 87/51 L 91/55 L Pulse Oximetry 100 100 100 06/10/18 23:44 06/11/18 00:00 06/11/18 00:30 Temperature Pulse Rate 75 80 75 Respiratory Rate 20 26 H 19 Blood Pressure 102/55 L 107/59 L 111/54 L Pulse Oximetry 100 100 100 06/11/18 00:53 06/11/18 01:00 06/11/18 01:30 Temperature Pulse Rate 77 71 Respiratory Rate 17 20 18 Blood Pressure 98/56 L 98/53 L Pulse Oximetry 100 99 98 06/11/18 02:00 06/11/18 02:30 06/11/18 03:00 Temperature Pulse Rate 70 71 67 Respiratory Rate 17 26 H 17 Blood Pressure 97/51 L 93/51 L 109/56 L Pulse Oximetry 98 99 100 06/11/18 03:30 06/11/18 04:00 06/11/18 04:31 Temperature 97.8 F Pulse Rate 69 67 79 Respiratory Rate 17 17 23 Blood Pressure 111/58 L 107/57 L 115/56 L Pulse Oximetry 100 98 98 06/11/18 05:00 06/11/18 05:30 06/11/18 06:00 Temperature Pulse Rate 74 71 75 Respiratory Rate 19 18 19 Blood Pressure 109/54 L 106/51 L Pulse Oximetry 100 99 99 06/11/18 06:01 06/11/18 06:30 06/11/18 07:00 Temperature Pulse Rate 74 71 75 Respiratory Rate 18 17 20 Blood Pressure 96/51 L 107/54 L 102/52 L Pulse Oximetry 100 100 100 06/11/18 07:13 06/11/18 07:30 06/11/18 08:00 Temperature 98.1 F Pulse Rate 71 72 Respiratory Rate 16 18 23 Blood Pressure 115/56 L Pulse Oximetry 100 100 100 06/11/18 08:01 06/11/18 08:31 06/11/18 09:00 Temperature Pulse Rate 73 73 73 Respiratory Rate 19 16 19 Blood Pressure 106/53 L 92/55 L 103/53 L Pulse Oximetry 100 100 100 06/11/18 09:30 06/11/18 10:00 06/11/18 10:30 Temperature Pulse Rate 74 76 102 H Respiratory Rate 19 22 30 H Blood Pressure 106/52 L 99/54 L 121/62 Pulse Oximetry 100 100 94 L 06/11/18 11:00 06/11/18 11:12 06/11/18 11:30 Temperature Pulse Rate 81 82 Respiratory Rate 18 20 15 Blood Pressure 130/60 111/57 L Pulse Oximetry 100 100 100 06/11/18 12:00 06/11/18 12:30 06/11/18 13:00 Temperature 98.9 F Pulse Rate 83 82 114 H Respiratory Rate 29 H 15 29 H Blood Pressure 125/60 112/57 L 104/76 Pulse Oximetry 97 96 88 L 06/11/18 13:31 06/11/18 14:00 Temperature Pulse Rate 95 H 102 H Respiratory Rate 20 35 H Blood Pressure 128/59 L 151/74 H Pulse Oximetry 97 96 Intake & Output 06/10/18 06/11/18 06/11/18 18:59 06:59 18:59 Intake Total 616 / 616 930 / 930 450 / 450 Output Total 3350 / 3350 250 / 250 Balance -2734 / -2734 680 / 680 450 / 450 Weight 137 kg Intake: IV 203 / 203 447 / 447 450 / 450 Diprivan 1000 mg/100 ml Inj 1, 100 / 100 100 / 100 000 mg In 100 ml @ 5 MCG/KG/MIN 3.87 mls/hr IV.CONT TITRATE PRN Rx#:[id number] Flexbumin 25% Inj 100 ML @ 60 100 / 100 200 / 200 mls/hr IV.SIG Q12H TRACIE Rx#: [id number] Levophed-Dextrose 4 mg/250 ml 3 / 3 347 / 347 Drip 4 mg In 250 ml @ 2 MCG/MIN 7.5 mls/hr IV.SIG TITRATE PRN Rx#:[id number] fentaNYL 10 mcg/mL Premix Drip 250 / 250 2,500 mcg In 250 ml @ 50 MCG/HR 5 mls/hr IV.SIG TITRATE PRN Rx #:[id number] Tube Feeding 413 / 413 383 / 383 Tube Irrigant 100 / 100 Output: Urine 0 / 0 Stool 100 / 100 Hemodialysis Amount 3000 / 3000 Chest Tube Drainage 350 / 350 150 / 150 #1 Left Lower Mid-Axillary 100 / 100 Chest #2 Left Lower Mid-Axillary 350 / 350 50 / 50 Chest Other: Date of Last Bowel Movement 06/08/18 06/11/18 06/11/18 - Constitutional no acute distress - Routine HEENT Exam Eye: Present: EOMI - Routine Neck Exam Present: supple - Routine Respiratory Exam Present: CTA bilaterally - Routine Cardiovascular Exam Present: RRR - Routine Abdominal Exam Present: soft - Routine Extremities Exam Present: edema - Urinary Catheter Management Suprapubic Cath placed during this visit: no Assessment and Plan - Assessment (1) End stage renal disease on dialysis Code(s): N18.6 - End stage renal disease; Z99.2 - Dependence on renal dialysis Status: Acute (2) Acute hypoxemic respiratory failure Code(s): J96.01 - Acute respiratory failure with hypoxia Status: Deleted (3) Arteriovenous graft infection Code(s): T82.7XXA - Infection and inflammatory reaction due to other cardiac and vascular devices, implants and grafts, initial encounter Status: Deleted (4) Atrial fibrillation with RVR Code(s): I48.91 - Unspecified atrial fibrillation Status: Deleted (5) Hemodialysis access, AV graft Code(s): Z99.2 - Dependence on renal dialysis Status: Acute - Plan Patient has sepsis and undergoing treatment with IV vancomycin He is scheduled to do dialysis, Friday and Friday HD MWF Apparent HeRO infection and MRSA: Removal of previous left IJ port, s/p partial removal for right arm graft and HeRO outflow component. Ongoing hypotension - follow with ID and Vascular Continue on Friday and Friday schedule --
[2018-06-11] MEDS ORDERED: Sodium Chlor 0.9% Inj 250 ML IV.SIG ONE (17:00)
[2018-06-11] MEDS ORDERED: Sodium Chlor 0.9% Inj 250 ML IV.SIG SCH (17:00)
[2018-06-11] MEDS: Vasopressin Inj 40 UNIT in Dextrose 5% in Water Inj 98 ML IV.CONT PRN ×2 (17:24)
[2018-06-11] MEDS ORDERED: Sodium Chlor 0.9% Inj 500 ML IV.SIG SCH (18:00)
--- NOTE | 2018-06-11 20:11 | P.PNID ---
Subjective Remarks: afebrile On pressors, Levaphed up to 20 mcgs vasopressin added Last + blood clx from 06/04 Upper Extremity Ultrasound 06/06/18 00:00 showed Nonspecific complex fluid collection could be postprocedural change, however infectious process is not excluded. Culture from it + for MRSA Chest CT 06/10/18 12:01 showed Bilateral parenchymal infiltrates are seen as well as bilateral moderate effusions left greater than right and Pulmonary nodules are identified including cavitary lesions. Antibiotics: vanco fluconazole rifampin Allergies/Adverse Reactions: Allergies No Known Allergies Allergy (Unknown, Uncoded 12/24/17 14:57) Objective Vital Signs 06/10/18 20:30 06/10/18 20:41 06/10/18 21:00 Temperature Pulse Rate 96 H 93 H Respiratory Rate 18 16 19 Blood Pressure 108/59 L 123/59 L Pulse Oximetry 99 98 98 06/10/18 21:30 06/10/18 22:00 06/10/18 22:30 Temperature Pulse Rate 94 H 96 H 92 H Respiratory Rate 19 27 H 34 H Blood Pressure 126/61 134/68 140/65 Pulse Oximetry 100 100 100 06/10/18 23:00 06/10/18 23:01 06/10/18 23:21 Temperature 98.2 F Pulse Rate 83 85 79 Respiratory Rate 16 21 21 Blood Pressure 90/53 L 87/51 L Pulse Oximetry 100 100 100 06/10/18 23:30 06/10/18 23:44 06/11/18 00:00 Temperature Pulse Rate 79 75 80 Respiratory Rate 14 20 26 H Blood Pressure 91/55 L 102/55 L 107/59 L Pulse Oximetry 100 100 100 06/11/18 00:30 06/11/18 00:53 06/11/18 01:00 Temperature Pulse Rate 75 77 Respiratory Rate 19 17 20 Blood Pressure 111/54 L 98/56 L Pulse Oximetry 100 100 99 06/11/18 01:30 06/11/18 02:00 06/11/18 02:30 Temperature Pulse Rate 71 70 71 Respiratory Rate 18 17 26 H Blood Pressure 98/53 L 97/51 L 93/51 L Pulse Oximetry 98 98 99 06/11/18 03:00 06/11/18 03:30 06/11/18 04:00 Temperature 97.8 F Pulse Rate 67 69 67 Respiratory Rate 17 17 17 Blood Pressure 109/56 L 111/58 L 107/57 L Pulse Oximetry 100 100 98 06/11/18 04:31 06/11/18 05:00 06/11/18 05:30 Temperature Pulse Rate 79 74 71 Respiratory Rate 23 19 18 Blood Pressure 115/56 L 109/54 L 106/51 L Pulse Oximetry 98 100 99 06/11/18 06:00 06/11/18 06:01 06/11/18 06:30 Temperature Pulse Rate 75 74 71 Respiratory Rate 19 18 17 Blood Pressure 96/51 L 107/54 L Pulse Oximetry 99 100 100 06/11/18 07:00 06/11/18 07:13 06/11/18 07:30 Temperature Pulse Rate 75 71 Respiratory Rate 20 16 18 Blood Pressure 102/52 L 115/56 L Pulse Oximetry 100 100 100 06/11/18 08:00 06/11/18 08:01 06/11/18 08:31 Temperature 98.1 F Pulse Rate 72 73 73 Respiratory Rate 23 19 16 Blood Pressure 106/53 L 92/55 L Pulse Oximetry 100 100 100 06/11/18 09:00 06/11/18 09:30 06/11/18 10:00 Temperature Pulse Rate 73 74 76 Respiratory Rate 19 19 22 Blood Pressure 103/53 L 106/52 L 99/54 L Pulse Oximetry 100 100 100 06/11/18 10:30 06/11/18 11:00 06/11/18 11:12 Temperature Pulse Rate 102 H 81 Respiratory Rate 30 H 18 20 Blood Pressure 121/62 130/60 Pulse Oximetry 94 L 100 100 06/11/18 11:30 06/11/18 12:00 06/11/18 12:30 Temperature 98.9 F Pulse Rate 82 83 82 Respiratory Rate 15 29 H 15 Blood Pressure 111/57 L 125/60 112/57 L Pulse Oximetry 100 97 96 06/11/18 13:00 06/11/18 13:31 06/11/18 14:00 Temperature Pulse Rate 114 H 95 H 102 H Respiratory Rate 29 H 20 35 H Blood Pressure 104/76 128/59 L 151/74 H Pulse Oximetry 88 L 97 96 06/11/18 14:31 06/11/18 14:41 06/11/18 15:00 Temperature Pulse Rate 102 H 96 H 104 H Respiratory Rate 32 H 22 25 H Blood Pressure 148/65 H 102/55 L Pulse Oximetry 91 L 88 L 92 L 06/11/18 15:01 06/11/18 15:30 06/11/18 15:45 Temperature Pulse Rate 105 H 118 H Respiratory Rate 22 29 H 18 Blood Pressure 140/68 160/85 H Pulse Oximetry 93 L 86 L 100 06/11/18 15:54 06/11/18 16:00 06/11/18 16:30 Temperature Pulse Rate 97 H 92 H 91 H Respiratory Rate 30 H 31 H 29 H Blood Pressure 122/62 108/59 L 125/63 Pulse Oximetry 100 100 100 06/11/18 17:00 06/11/18 17:30 06/11/18 18:00 Temperature 99.4 F Pulse Rate 97 H 89 114 H Respiratory Rate 20 16 21 Blood Pressure 138/63 143/63 H Pulse Oximetry 100 100 100 06/11/18 18:01 Temperature Pulse Rate 116 H Respiratory Rate 20 Blood Pressure 165/76 H Pulse Oximetry 100 Intake & Output 06/11/18 06/11/18 06/12/18 06:59 18:59 06:59 Intake Total 930 / 930 1430 / 1430 750 / 750 Output Total 250 / 250 210 / 210 Balance 680 / 680 1220 / 1220 750 / 750 Weight 137 kg Intake: IV 447 / 447 700 / 700 750 / 750 Diprivan 1000 mg/100 ml Inj 1, 100 / 100 0 / 0 000 mg In 100 ml @ 5 MCG/KG/MIN 3.87 mls/hr IV.CONT TITRATE PRN Rx#:[id number] Flexbumin 25% Inj 100 ML @ 60 200 / 200 mls/hr IV.SIG Q12H TRACIE Rx#: [id number] Levophed-Dextrose 4 mg/250 ml 347 / 347 Drip 4 mg In 250 ml @ 2 MCG/MIN 7.5 mls/hr IV.SIG TITRATE PRN Rx#:[id number] NS Inj 250 ML @ As Directed IV. 250 / 250 SIG BOLUS ONE Rx#:[id number] NS Inj 500 ML @ Wide Open IV. 500 / 500 SIG BOLUS TRACIE Rx#:[id number] Vancomycin Inj 1,000 MG In NS 250 / 250 Inj 250 ML @ 250 mls/hr IV.SIG WITH DIALYSIS TRACIE Rx#:[id number] fentaNYL 10 mcg/mL Premix Drip 250 / 250 2,500 mcg In 250 ml @ 50 MCG/HR 5 mls/hr IV.SIG TITRATE PRN Rx #:[id number] Tube Feeding 383 / 383 490 / 490 Tube Irrigant 100 / 100 240 / 240 Output: Urine 0 / 0 0 / 0 Stool 100 / 100 40 / 40 Chest Tube Drainage 150 / 150 170 / 170 #1 Left Lower Mid-Axillary 100 / 100 Chest #2 Left Lower Mid-Axillary 50 / 50 170 / 170 Chest Other: Date of Last Bowel Movement 06/11/18 06/11/18 06/10/18 20:45 Sputum - Endotracheal Gram Stain - Final 06/10/18 20:45 Sputum - Endotracheal Sputum Culture - Preliminary No growth in 24 hours 05/28/18 14:40 Wound - Arm Fungal Smear - Final No fungal elements seen 05/28/18 14:40 Wound - Arm Fungal Culture - Preliminary No growth in 2 weeks 05/28/18 14:40 Wound - Arm Acid Fast Bacilli Smear - Final No acid fast bacilli seen 05/28/18 14:40 Wound - Arm Mycobacterial Culture - Preliminary No growth in 2 weeks 05/28/18 14:40 Other Fungal Smear - Final No fungal elements seen 05/28/18 14:40 Other Fungal Culture - Preliminary No growth in 2 weeks 05/28/18 14:40 Other Acid Fast Bacilli Smear - Final No acid fast bacilli seen 05/28/18 14:40 Other Mycobacterial Culture - Preliminary No growth in 2 weeks 06/10/18 13:50 Fluid - Pleural fluid Gram Stain - Final 06/10/18 13:50 Fluid - Pleural fluid Body Fluid Culture - Preliminary No growth in 24 hours 06/10/18 16:27 Blood - Peripheral Aerobic Blood Culture - Preliminary No growth in 1 day 06/10/18 16:27 Blood - Peripheral Anaerobic Blood Culture - Preliminary No growth in 1 day 06/10/18 16:32 Blood - Peripheral Aerobic Blood Culture - Preliminary No growth in 1 day 06/10/18 16:32 Blood - Peripheral Anaerobic Blood Culture - Preliminary No growth in 1 day 06/06/18 05:20 Blood - Peripheral Aerobic Blood Culture - Final No growth in 5 days 06/06/18 05:20 Blood - Peripheral Anaerobic Blood Culture - Final No growth in 5 days 06/06/18 05:40 Blood - Peripheral Aerobic Blood Culture - Final No growth in 5 days 06/06/18 05:40 Blood - Peripheral Anaerobic Blood Culture - Final No growth in 5 days 06/05/18 06:10 Blood - Peripheral Aerobic Blood Culture - Final No growth in 5 days 06/05/18 06:10 Blood - Peripheral Anaerobic Blood Culture - Final No growth in 5 days 06/05/18 06:19 Blood - Peripheral Aerobic Blood Culture - Final No growth in 5 days 06/05/18 06:19 Blood - Peripheral Anaerobic Blood Culture - Final No growth in 5 days 06/04/18 08:25 Blood - Peripheral Aerobic Blood Culture - Final S. aureus MRSA 06/04/18 08:25 Blood - Peripheral Anaerobic Blood Culture - Final No growth in 5 days 06/04/18 08:20 Blood - Peripheral Aerobic Blood Culture - Final No growth in 5 days 06/04/18 08:20 Blood - Peripheral Anaerobic Blood Culture - Final No growth in 5 days Lab - Hematology Results 06/10/18 06/10/18 06/11/18 04:30 16:32 04:15 WBC 5.5 6.2 7.0 RBC 2.78 L 2.91 L 2.92 L Hgb 8.4 L 8.7 L 8.7 L Hct 23.7 L 25.1 L 25.3 L MCV 85.5 86.5 86.5 MCH 30.1 29.9 29.7 MCHC 35.2 34.5 34.4 RDW 17.1 17.1 17.2 Plt Count 244 251 280 MPV 8.4 8.1 8.3 Lab - Chemistry Results 06/09/18 06/10/18 06/10/18 20:05 00:26 04:30 Sodium 134 L Potassium 3.7 Chloride 94 L Carbon Dioxide 23.7 Anion Gap 16 H BUN 67 H Creatinine 7.71 H Estimated GFR 8 L POC Glucose 129 H 273 H Random Glucose 251 H Calcium 9.5 Phosphorus 6.4 H Magnesium 2.3 Total Bilirubin 0.5 AST 12 L ALT 10 L Alkaline Phosphatase 158 H Total Protein 8.1 Albumin 3.0 L 06/10/18 06/10/18 06/10/18 04:32 07:56 11:03 Sodium Potassium Chloride Carbon Dioxide Anion Gap BUN Creatinine Estimated GFR POC Glucose 267 H 259 H 193 H Random Glucose Calcium Phosphorus Magnesium Total Bilirubin AST ALT Alkaline Phosphatase Total Protein Albumin 06/10/18 06/10/18 06/10/18 16:43 20:33 23:08 Sodium Potassium Chloride Carbon Dioxide Anion Gap BUN Creatinine Estimated GFR POC Glucose 261 H 247 H 244 H Random Glucose Calcium Phosphorus Magnesium Total Bilirubin AST ALT Alkaline Phosphatase Total Protein Albumin 06/11/18 06/11/18 06/11/18 04:08 04:15 08:38 Sodium 135 L Potassium 3.6 Chloride 96 L Carbon Dioxide 25.4 Anion Gap 14 BUN 56 H Creatinine 6.77 H Estimated GFR 10 L POC Glucose 188 H 284 H Random Glucose 173 H Calcium 10.5 H D Phosphorus 4.8 D Magnesium 2.3 Total Bilirubin 0.5 AST 17 ALT 12 Alkaline Phosphatase 135 H Total Protein 8.8 H D Albumin 3.6 D 06/11/18 06/11/18 11:36 17:21 Sodium Potassium Chloride Carbon Dioxide Anion Gap BUN Creatinine Estimated GFR POC Glucose 272 H 264 H Random Glucose Calcium Phosphorus Magnesium Total Bilirubin AST ALT Alkaline Phosphatase Total Protein Albumin Imaging: ITS Impressions Abdomen X-Ray 05/31/18 00:00 CONCLUSION: 1. Suction-type NGT in the stomach. Upper Extremity Ultrasound 06/06/18 00:00 CONCLUSION: 1. Nonspecific complex fluid collection could be postprocedural change, however infectious process is not excluded. Chest CT 06/10/18 12:01 CONCLUSION: 1. Bilateral parenchymal infiltrates are seen as well as bilateral moderate effusions left greater than right. 2. Pulmonary nodules are identified including cavitary lesions. Chest X-Ray 06/11/18 06:00 CONCLUSION: Improved left lung airspace consolidation. There is residual bilateral airspace consolidation, left greater than right. Physical Exam: GENERAL: NAD sedated. intubated on vent SKIN: Warm and dry. No rash HEAD: Atraumatic. Normocephalic. EYES: Pupils equal and round. No scleral icterus. No injection or drainage. ENT: No nasal bleeding or discharge. Mucous membranes pink and moist. NECK: Trachea midline. No JVD. CARDIOVASCULAR: Regular rate and rhythm. Chest incision is open and packed, minim,al serosang drainage on the packing RESPIRATORY: No accessory muscle use. Rhonchi to auscultation. Breath sounds equal bilaterally. CT in place in L side witgh serosang d/c GASTROINTESTINAL: Abdomen soft, non-tender, nondistended. Hepatic and splenic margins not palpable. MUSCULOSKELETAL: Extremities without clubbing, cyanosis, +edema. 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 Both isolates S to CFTX MRSA PNA Persistend hypotensiotn, back on pressors Clearly another septic episode: persistent graft infx vs new infection pt remains critical and unstable wioth persistent hypotensio requiring pressors, dose increased to 13 mcgs Pleural effusion cont vancomycin: keep trough 15-20 cont rifampin cont fluconazol x 2 weeks total 2 D echo. Needs removal of the remainder of the graft to control sepsis dw Dr Umana
[2018-06-11] MEDS ORDERED: HYDROmorphone PF Inj 0.5 MG/0.5 ML Syringe IV.PUSH PRN (21:53)
[2018-06-11] MEDS: HYDROmorphone PF Inj 2 MG/ML Vial IV.PUSH PRN (22:22)
[2018-06-12] MEDS: Sodium Chlor 0.9% Inj 100 ML IV.SIG SCH ×6 (01:22→22:40)
[2018-06-12] MEDS: Insulin NovoLOG Aspart Correctional Sugar Inj SQ SCH ×7 (01:22→23:31)
[2018-06-12] MEDS: HYDROmorphone PF Inj 2 MG/ML Vial IV.PUSH PRN ×6 (01:40→15:46)
[2018-06-12 05:04] LABS: Hematocrit 22.6 % (39.0-51.0); Hemoglobin 7.9 gm/dL (13.0-17.0); Mean Corpuscular HGB Conc 34.7 % (32.0-36.0); Mean Corpuscular Hemoglobin 29.8 pg (27.0-34.0); Mean Platelet Volume 7.8 fL (7.0-11.0); Platelet Count 264 th/mm3 (150-450); Red Blood Count 2.63 mil/mm3 (4.50-5.90); Red Cell Distribution Width 16.7 % (11.6-17.2); White Blood Count 7.4 th/mm3 (4.0-11.0)
[2018-06-12 05:31] LABS: Calcium 10.4 mg/dL (8.5-10.1); Carbon Dioxide 26.3 meq/L (21.0-32.0); Magnesium 2.2 mg/dL (1.5-2.5); Phosphorus 4.9 mg/dL (2.5-4.9); Potassium 3.5 meq/L (3.5-5.1)
[2018-06-12] MEDS: Vasopressin Inj 40 UNIT in Dextrose 5% in Water Inj 98 ML IV.CONT PRN ×4 (06:34→22:55)
--- NOTE | 2018-06-12 07:19 | P.PNCC ---
Subjective Subjective Remarks/Hospital Course: Mr. Laguerre is a 73-year-old -[place] male with past medical history significant for end-stage renal disease on hemodialysis, hypertension, complicated vascular access, HeRO graft placement by Dr. Umana on 09/23/2017, revision and PTFE replacement 12/25/17. who presented to the [facility] with probable sepsis and shock. Dr. Umana was contacted and patient was accepted for transfer to CVICU in [facility]. I immediately evaluated the patient on arrival to CVICU. Patient is currently on BiPAP (transported on BiPAP) severely encephalopathic hardly wakes up to sternal rub, with a rapid shallow breathing. BiPAP settings 18/8, 60% FiO2. He is literally unresponsive and not protecting airway. Currently he is on Levophed at 20 mcg/min with a map 65-70. He is also on amiodarone for atrial fibrillation with RVR. Because of lack of airway protection, severe encephalopathy, septic shock and hypoxia I proceeded with endotracheal intubation. His glottic opening was completely occluded with thick secretions, several minutes of suctioning needed to clear the secretions prior to intubation. Postintubation Levophed had to be increased to 30 mcg/min, I also placed an arterial line. All cultures, routine labs and lactic acid pending at this time. I have started him on vancomycin and Zosyn. Discussed case with Dr. Umana extensively Patient was unable to provide any history, according to the RN who got report patient apparently had GI bleed, underwent EGD with cauterization of duodenal ulcer few days ago. Will avoid heparin for DVT prophylaxis. His postintubation ABG showed severe hypoxia with significant AA gradient, metabolic acidosis, and a hemoglobin of 7.6. Currently Levophed is increased to 30 mcg/min, I will transfuse 1 unit PRBC. Chest x-ray shows pulmonary edema will arrange for hemodialysis once his shock is improves. At this time he will not be able to tolerate either hemodialysis or even CVVH 05/28: initially evaluated around 6:30am. patient in refractory septic shock. added epinephrine to levophed and vasopressin. discussed with Dr. Umana. obtained u/s of the right upper extremity which demonstrated fluid collection surrounding the HeRO graft which was heterogenous in nature. added single dose of Amikacin to vanc/zosyn regimen to cover ESBL organisms. patient remains in shock. per verbal report from OSH, blood cultures growing MRSA. taken to OR urgently and large amount of purulent drainage debrided from around catheter. HeRO catheter removed. returns from OR persistently unstable. acidosis worsening. bicarb given. discussed with nephrology and will need CRRT. 05/29: s/p emergent debridement and removal of HeRO graft. today vasopressor doses are somewhat lower, although remains on levo,vaso,epi. lactate cleared. s/ p IHD today with 3L removal. blood growing MRSA. sputum growing e.coli, providencia, MRSA. wbc remains elevated. 05/30: off vasopressors. getting IHD again today. hgb 7 and receiving 1 unit prbc during dialysis. encephalopathy persists, not following commands. 05/31: clinically continues to improve. not following commands, very slow to arouse. bradycardic this AM, but tolerating hemodynamically. HD yesterday with volume removal. 06/01: Clinically improved off all pressors. Sedated with propofol and fentanyl , opens eyes moves extremities not following commands. Plan for hemodialysis today. Initiate CPAP trial after hemodialysis. Persistently bacteremic with MRSA, repeat cultures in 24 hours 06/02: Remains in septic shock, though pressor requirement has improved. Hypotensive bradycardic while getting HD yesterday, started on Dopamine, now at 3 mcg/kg/min. Pus being expressed from upper part of right upper chest [id number] (HeRO AVG removal site). Hypothermic. Some pus around the suprapubic catheter 06/03: Patient had been weaned off all pressors now. Not requiring dopamine for the last 18 hours. However WBC count 13 K today. Persistent bacteremia with MRSA. Source could be right upper extremity graft remnant versus infected invasive catheters. After hemodialysis removal HD catheter, also remove left IJ central line. Repeat blood cultures in 24 hours. Antibiotics broadened by ID yesterday 06/04: Showing some clinical signs of improvement. Not requiring pressors hypothermia has resolved. CBC still pending patient is more awake following commands tolerating CPAP now. Left IJ central line and right femoral Vas-Cath was removed yesterday. Plan for next dialysis is tomorrow will place new Vas- Cath tomorrow a.m. to give 'line holiday'. 06/05: Back on norepinephrine at 10 mics per minute. Blood blood pressure variable, intermittently hypotensive. New Vas-Cath placed in groin functional. Most recent cultures continued to grow gram-positive cocci. Alert when propofol is lightened Subjective: 06/06: Afebrile. Remains on norepinephrine drip at 7 mcg/min. Arousable on the ventilator on sedation vacation. Commands. -3 L with hemodialysis yesterday. Repeat blood cultures done the same. Right upper extremity ultrasound pending.. 06/07: remains on vasopressors. cxr today with new left pleural effusion which is quite large: confirmed on bedside lung ultrasound. pigtail chest tube placed with > 1L old hemothorax. hgb slightly lower, but hemodynamically stable. discussed with nephrology and vascular surgery and most ideal plan would be to transfuse prbc tomorrow with HD. 06/08: Remains intubated sedated with propofol. Currently on 8 mcg/min of Levophed but map is above 75. Getting 2 units of PRBC with dialysis for hemoglobin of 6.9. Left pigtail chest tube drained almost 2 L old blood appearing. I will request fluid studies from any residual drainage. CT of the chest to evaluate for any residual fluid. 06/09: Intubated sedated, wakes up and follows commands. On Levophed at 1 mcg/ min. CT of the chest shows small left pleural effusion bibasilar consolidation , multiple bilateral pulmonary nodules some cavitation indicating septic emboli most likely from staff. Blood cultures from 06/05/18 and 06/06/18 negative to date 06/10: Remains intubated slightly sedated follows commands. Levophed requirement has slightly increased overnight currently on 5 mcg/min. We will recheck blood cultures. Getting hemodialysis today. Chest x-ray shows severe left-sided airspace disease. Check ultrasound of the chest post dialysis. Left pigtail chest tube output 60 ml in last 24 hours 06/11 Patient is sedated with Diprivan and Fentanyl infusion, on Levophed 11 mics. Afebrile. Left pigtail catheter had 50 ml output and a second large bore CT was placed yesterday had approx 100ml overnight. 06/12 Patient remains intubated tolerated CPAP for several hrs yesterday remains on Levophed 10 mics and Vasopressin 0.04. Afebrile. Left pigtail catheter was dislodged yesterday, 28Fr CT had 50ml output overnight. Tolerating tube feeds. Objective Vital Signs / I&O: Vital Signs 06/11/18 07:30 06/11/18 08:00 06/11/18 08:01 Temperature 98.1 F Pulse Rate 71 72 73 Respiratory Rate 18 23 19 Blood Pressure 115/56 L 106/53 L Pulse Oximetry 100 100 100 06/11/18 08:31 06/11/18 09:00 06/11/18 09:30 Temperature Pulse Rate 73 73 74 Respiratory Rate 16 19 19 Blood Pressure 92/55 L 103/53 L 106/52 L Pulse Oximetry 100 100 100 06/11/18 10:00 06/11/18 10:30 06/11/18 11:00 Temperature Pulse Rate 76 102 H 81 Respiratory Rate 22 30 H 18 Blood Pressure 99/54 L 121/62 130/60 Pulse Oximetry 100 94 L 100 06/11/18 11:12 06/11/18 11:30 06/11/18 12:00 Temperature 98.9 F Pulse Rate 82 83 Respiratory Rate 20 15 29 H Blood Pressure 111/57 L 125/60 Pulse Oximetry 100 100 97 06/11/18 12:30 06/11/18 13:00 06/11/18 13:31 Temperature Pulse Rate 82 114 H 95 H Respiratory Rate 15 29 H 20 Blood Pressure 112/57 L 104/76 128/59 L Pulse Oximetry 96 88 L 97 06/11/18 14:00 06/11/18 14:31 06/11/18 14:41 Temperature Pulse Rate 102 H 102 H 96 H Respiratory Rate 35 H 32 H 22 Blood Pressure 151/74 H 148/65 H 102/55 L Pulse Oximetry 96 91 L 88 L 06/11/18 15:00 06/11/18 15:01 06/11/18 15:30 Temperature Pulse Rate 104 H 105 H 118 H Respiratory Rate 25 H 22 29 H Blood Pressure 140/68 160/85 H Pulse Oximetry 92 L 93 L 86 L 06/11/18 15:45 06/11/18 15:54 06/11/18 16:00 Temperature Pulse Rate 97 H 92 H Respiratory Rate 18 30 H 31 H Blood Pressure 122/62 108/59 L Pulse Oximetry 100 100 100 06/11/18 16:30 06/11/18 17:00 06/11/18 17:30 Temperature 99.4 F Pulse Rate 91 H 97 H 89 Respiratory Rate 29 H 20 16 Blood Pressure 125/63 138/63 143/63 H Pulse Oximetry 100 100 100 06/11/18 18:00 06/11/18 18:01 06/11/18 19:41 Temperature Pulse Rate 114 H 116 H 97 H Respiratory Rate 21 20 20 Blood Pressure 165/76 H Pulse Oximetry 100 100 100 06/11/18 20:00 06/11/18 22:00 06/11/18 22:59 Temperature Pulse Rate 102 H 108 H Respiratory Rate 16 30 H 19 Blood Pressure 116/61 141/83 H Pulse Oximetry 100 94 L 06/12/18 00:00 06/12/18 00:20 06/12/18 02:00 Temperature Pulse Rate 74 81 Respiratory Rate 11 L 18 17 Blood Pressure 125/58 L 124/63 Pulse Oximetry 96 94 L 97 06/12/18 02:10 06/12/18 04:00 06/12/18 05:47 Temperature 98.8 F Pulse Rate 81 Respiratory Rate 17 21 17 Blood Pressure 136/66 Pulse Oximetry 97 06/12/18 06:00 Temperature Pulse Rate 74 Respiratory Rate 21 Blood Pressure 94/65 L Pulse Oximetry 97 Intake & Output 06/11/18 06/12/18 06/12/18 18:59 06:59 18:59 Intake Total 1430 / 1430 2130 / 2130 Output Total 210 / 210 110 / 110 Balance 1220 / 1220 2019 Weight 140 kg Intake: IV 700 / 700 1400 / 1400 Diprivan 1000 mg/100 ml Inj 1, 0 / 0 000 mg In 100 ml @ 5 MCG/KG/MIN 3.87 mls/hr IV.CONT TITRATE PRN Rx#:[id number] Pitressin Inj 40 UNIT In D5W 100 / 100 Inj 98 ML @ 0.01 UNITS/MIN 1.5 mls/hr IV.CONT TITRATE PRN Rx#: [id number] Flexbumin 25% Inj 100 ML @ 60 200 / 200 100 / 100 mls/hr IV.SIG Q12H [facility] Rx#: [id number] Diflucan 200 mg Premix Bag 100 200 / 200 ML @ 100 mls/hr IV.SIG Q24H [facility] Rx#:[id number] Levophed-Dextrose 4 mg/250 ml 250 / 250 Drip 4 mg In 250 ml @ 2 MCG/MIN 7.5 mls/hr IV.SIG TITRATE PRN Rx#:[id number] NS Inj 250 ML @ As Directed IV. 250 / 250 SIG BOLUS ONE Rx#:[id number] NS Inj 500 ML @ Wide Open IV. 500 / 500 SIG BOLUS [facility] Rx#:[id number] Vancomycin Inj 1,000 MG In NS 250 / 250 Inj 250 ML @ 250 mls/hr IV.SIG WITH DIALYSIS [facility] Rx#:[id number] fentaNYL 10 mcg/mL Premix Drip 250 / 250 2,500 mcg In 250 ml @ 50 MCG/HR 5 mls/hr IV.SIG TITRATE PRN Rx #:[id number] Tube Feeding 490 / 490 490 / 490 Tube Irrigant 240 / 240 240 / 240 Output: Urine 0 / 0 0 / 0 Stool 40 / 40 60 / 60 Chest Tube Drainage 170 / 170 50 / 50 #2 Left Lower Mid-Axillary 170 / 170 50 / 50 Chest Other: Date of Last Bowel Movement 06/11/18 06/12/18 Result Diagrams: 06/12/18 04:00 06/12/18 04:00 Other Results: Laboratory Results - last 12 hr 06/11/18 06/11/18 06/12/18 17:00 20:17 00:59 WBC RBC Hgb Hct MCV MCH MCHC RDW Plt Count MPV Sodium Potassium Chloride Carbon Dioxide Anion Gap BUN Creatinine Estimated GFR POC Glucose 292 H 233 H Random Glucose Calcium Phosphorus Magnesium St C. diff Tox Epid 027 Negative C. difficile Tox (PCR) Negative 06/12/18 06/12/18 04:00 04:00 WBC 7.4 RBC 2.63 L Hgb 7.9 L Hct 22.6 L MCV 86.0 MCH 29.8 MCHC 34.7 RDW 16.7 Plt Count 264 MPV 7.8 Sodium 134 L Potassium 3.5 Chloride 94 L Carbon Dioxide 26.3 Anion Gap 14 BUN 63 H Creatinine 7.75 H Estimated GFR 8 L POC Glucose Random Glucose 138 H Calcium 10.4 H Phosphorus 4.[address] C. diff Tox Epid 027 C. difficile Tox (PCR) Imaging: Abdomen X-Ray 05/31/18 00:00 CONCLUSION: 1. Suction-type NGT in the stomach. Upper Extremity Ultrasound 06/06/18 00:00 CONCLUSION: 1. Nonspecific complex fluid collection could be postprocedural change, however infectious process is not excluded. Chest CT 06/10/18 12:01 CONCLUSION: 1. Bilateral parenchymal infiltrates are seen as well as bilateral moderate effusions left greater than right. 2. Pulmonary nodules are identified including cavitary lesions. Chest X-Ray 06/11/18 06:00 CONCLUSION: Improved left lung airspace consolidation. There is residual bilateral airspace consolidation, left greater than right. Objective Remarks: GENERAL: 73-year-old -[place] male, lying in bed, intubated, light sedation HEENT: Normocephalic. Atraumatic. Pupils equal, round, reactive. NECK: Trachea is midline. Orotracheally intubated. CHEST: PRVC. equal chest rise. Air entry decreased predominantly in the left lung newman with few coarse rhonchi bilaterally. Good bilateral air movement. Left pigtail catheter with 60 ml output in last 24 hours CARDIOVASCULAR: Atrial fibrillation rate controlled. No murmurs. No JVD. ABDOMEN: Soft, nontender, nondistended. No guarding. Supra pubic catheter in place MUSCULOSKELETAL: Right upper extremity s/p debridement upper incision W/D dressing. Pulses 2+. No peripheral edema. NEUROLOGICAL: Opens eyes spontaneously off sedation. Follows commands 4 when light. No focal deficits Assessment and Plan - Assessment and Plan Plan: NEURO/PSYCH: Acute metabolic encephalopathy -Off sedation. Monitor neuro status -Acetaminophen 650 mg by tube every 6 hours as needed fever -Altered mentation secondary to toxic metabolic encephalopathy from sepsis and hypercapnia RESP: Acute hypoxemic and hypercarbic respiratory failure Multiple pulmonary nodules/septic emboli Pulmonary edema Left Hemothorax MRSA pneumonia HCAP with MRSA- present on admission Continue with vent support keep sats >92% -Continue abx. daily /SBT as narciso Ventilator bundle. DuoNeb every 6 hours scheduled and albuterol aerosols every 2 hours as needed -MRSA pneumonia treatment below s/p 10 Fr pigtail chest tube, left, with >1L old dark blood. 06/07. Dislodged 06/11 s/p 28Fr CT placement 06/10 with 400ml removed on insertion, had 50ml output overnight. Fluid studies consistent with hemothorax CXR yesterday : Improved left lung airspace consolidation. There is residual bilateral airspace consolidation, left greater than right. CT of the chest shows multiple pulmonary nodules with some cavitation indicating septic emboli CV: Septic shock Acute severe anion gap Metabolic acidosis- resolved Pulmonary edema-resolving Atrial fibrillation with RVR-currently normal sinus rhythm -On Levophed and vasopressin 0.04 keep MAP>65mmHg - A. fib rate is controlled and currently normal sinus rhythm, cannot anticoagulate due to history of recent GI bleed For 2D echo today GI/HEME/FEN: Recent GI bleed Acute anemia requiring transfusion Leukocytosis Hyperphosphatemia -s/p Transfuse 2U PRBC with HD 06/10 -Nepro tube feeds at 45 cc an hour per nutrition recommendations with Beneprotein 1 packet 3 times daily -IV pantoprazole 40 mg IV daily -Docusate sodium/senna 1 tablet twice daily for bowel regimen -Calcium acetate 667 mg 3 times daily for elevated phosphorus. /renal: End-stage renal disease on hemodialysis HeRO graft placed 09/2017, now removed due to graft infection - Nephrology: Dr. Davidson following - continue HD per nephrology, Monitor renal function, I/O's, avoid nephrotoxins ID: Septic shock HeRO graft infection s/p removal HCAP pneumonia- present on admission MRSA septic emboli to lung Persistent MRSA bacteremia -Persistent MRSA bacteremia could be secondary to infected remnant of the AV graft, versus secondary seeding of the catheters -Removed Vas-Cath, and left IJ central line 06/03/18 - ID Dr. Morgan, abx management per ID - Dr. Umana following - 05/27, 05/28, 05/30, 06/01 and 06/04 blood cultures MRSA - 05/27 sputum cultures: Providencia, MRSA, e.coli - 06/02 wound with Arlet albicans - cont vancomycin: keep trough 15-20 cont rifampin - Continue fluconazole - will need minimum 6 weeks coverage for MRSA graft infection ENDO: Type 2 diabetes Presumed Adrenal insufficiency -Sliding scale insulin with aspart insulin every 4 hours PROPH: -Bilateral lower extremity SCDs. Sq Heparin. IV Protonix 40 mg every 12 LINES: -Removed OSH left IJ central line and OSH right femoral Vas-Cath on 06/03/2018 -New left femoral Vas-Cath placement 06/04/18 -left radial arterial line 05/27: -New LIJ central line 06/08/18 due to ongoing pressor requirement Overall impression: likely shock may take time to resolve. hemothorax likely old and occult, unlikely to be active bleeding. if cultures persistently remain positive, would need to consider removal of distal remnant of graft, but clinically he is making slow improvements, and unlikely to have active ongoing bacteremic graft infection with continued forward progress. CCT 35 MIN
[2018-06-12] MEDS: Senna/Docusate Sodium 8.6/50 MG Tablet PO SCH ×2 (08:33→22:52)
[2018-06-12] MEDS: Calcium Acetate 667 MG Capsule PO SCH ×3 (08:33→17:48)
[2018-06-12] MEDS: Mupirocin 2% Nasal Oint Topical Syringe EACH NARE SCH ×2 (08:33→22:52)
[2018-06-12] MEDS: Hypromellose 0.3% Opth Gel 10 GM Bottle EACH EYE SCH ×2 (08:35→22:54)
[2018-06-12] MEDS: Beneprotein Powder Packet G-TUBE SCH ×3 (08:35→17:49)
[2018-06-12] MEDS: Vancomycin Inj 1,000 MG in Sodium Chlor 0.9% Inj 250 ML IV.SIG SCH (10:30)
[2018-06-12] MEDS: Pantoprazole Inj 40 MG Vial IV.PUSH SCH ×2 (10:49→22:54)
--- NOTE | 2018-06-12 10:49 | P.PNVS ---
Subjective Procedure: Excision of arm and neck grafts, grossly infected Subjective/Hospital Course: 73 sedated male on pressors Pt currently on CPAP Pt receiving HD at the Objective Vital Signs / I&O: Vital Signs 06/11/18 11:00 06/11/18 11:12 06/11/18 11:30 Temperature Pulse Rate 81 82 Respiratory Rate 18 20 15 Blood Pressure 130/60 111/57 L Pulse Oximetry 100 100 100 06/11/18 12:00 06/11/18 12:30 06/11/18 13:00 Temperature 98.9 F Pulse Rate 83 82 114 H Respiratory Rate 29 H 15 29 H Blood Pressure 125/60 112/57 L 104/76 Pulse Oximetry 97 96 88 L 06/11/18 13:31 06/11/18 14:00 06/11/18 14:31 Temperature Pulse Rate 95 H 102 H 102 H Respiratory Rate 20 35 H 32 H Blood Pressure 128/59 L 151/74 H 148/65 H Pulse Oximetry 97 96 91 L 06/11/18 14:41 06/11/18 15:00 06/11/18 15:01 Temperature Pulse Rate 96 H 104 H 105 H Respiratory Rate 22 25 H 22 Blood Pressure 102/55 L 140/68 Pulse Oximetry 88 L 92 L 93 L 06/11/18 15:30 06/11/18 15:45 06/11/18 15:54 Temperature Pulse Rate 118 H 97 H Respiratory Rate 29 H 18 30 H Blood Pressure 160/85 H 122/62 Pulse Oximetry 86 L 100 100 06/11/18 16:00 06/11/18 16:30 06/11/18 17:00 Temperature 99.4 F Pulse Rate 92 H 91 H 97 H Respiratory Rate 31 H 29 H 20 Blood Pressure 108/59 L 125/63 138/63 Pulse Oximetry 100 100 100 06/11/18 17:30 06/11/18 18:00 06/11/18 18:01 Temperature Pulse Rate 89 114 H 116 H Respiratory Rate 16 21 20 Blood Pressure 143/63 H 165/76 H Pulse Oximetry 100 100 100 06/11/18 19:41 06/11/18 20:00 06/11/18 22:00 Temperature Pulse Rate 97 H 102 H 108 H Respiratory Rate 20 16 30 H Blood Pressure 116/61 141/83 H Pulse Oximetry 100 100 94 L 06/11/18 22:59 06/12/18 00:00 06/12/18 00:20 Temperature Pulse Rate 74 Respiratory Rate 19 11 L 18 Blood Pressure 125/58 L Pulse Oximetry 96 94 L 06/12/18 02:00 06/12/18 02:10 06/12/18 04:00 Temperature 98.8 F Pulse Rate 81 81 Respiratory Rate 17 17 21 Blood Pressure 124/63 136/66 Pulse Oximetry 97 97 06/12/18 05:47 06/12/18 06:00 06/12/18 07:50 Temperature Pulse Rate 74 Respiratory Rate 17 21 23 Blood Pressure 94/65 L Pulse Oximetry 97 94 L Intake & Output 06/11/18 06/12/18 06/12/18 18:59 06:59 18:59 Intake Total 1430 / 1430 2130 / 2130 Output Total 210 / 210 110 / 110 Balance 1220 / 1220 2019 Weight 140 kg Intake: IV 700 / 700 1400 / 1400 Diprivan 1000 mg/100 ml Inj 1, 0 / 0 000 mg In 100 ml @ 5 MCG/KG/MIN 3.87 mls/hr IV.CONT TITRATE PRN Rx#:[id number] Pitressin Inj 40 UNIT In D5W 100 / 100 Inj 98 ML @ 0.01 UNITS/MIN 1.5 mls/hr IV.CONT TITRATE PRN Rx#: [id number] Flexbumin 25% Inj 100 ML @ 60 200 / 200 100 / 100 mls/hr IV.SIG Q12H [facility] Rx#: [id number] Diflucan 200 mg Premix Bag 100 200 / 200 ML @ 100 mls/hr IV.SIG Q24H [facility] Rx#:[id number] Levophed-Dextrose 4 mg/250 ml 250 / 250 Drip 4 mg In 250 ml @ 2 MCG/MIN 7.5 mls/hr IV.SIG TITRATE PRN Rx#:[id number] NS Inj 250 ML @ As Directed IV. 250 / 250 SIG BOLUS ONE Rx#:[id number] NS Inj 500 ML @ Wide Open IV. 500 / 500 SIG BOLUS [facility] Rx#:[id number] Vancomycin Inj 1,000 MG In NS 250 / 250 Inj 250 ML @ 250 mls/hr IV.SIG WITH DIALYSIS [facility] Rx#:[id number] fentaNYL 10 mcg/mL Premix Drip 250 / 250 2,500 mcg In 250 ml @ 50 MCG/HR 5 mls/hr IV.SIG TITRATE PRN Rx #:[id number] Tube Feeding 490 / 490 490 / 490 Tube Irrigant 240 / 240 240 / 240 Output: Urine 0 / 0 0 / 0 Stool 40 / 40 60 / 60 Chest Tube Drainage 170 / 170 50 / 50 #2 Left Lower Mid-Axillary 170 / 170 50 / 50 Chest Other: Date of Last Bowel Movement 06/11/18 06/12/18 Exam: Pt sedated on CPAP Chest tubes intact Incision to R chest/arm without swelling/drainage/erythema Proximal region of incision line opened/packed/+ granulation tissue present + R/L Radial pulses 2+ Laboratory Results - last 24 hr 06/11/18 06/11/18 06/11/18 11:36 17:00 17:21 WBC RBC Hgb Hct MCV MCH MCHC RDW Plt Count MPV Sodium Potassium Chloride Carbon Dioxide Anion Gap BUN Creatinine Estimated GFR POC Glucose 272 H 264 H Random Glucose Calcium Phosphorus Magnesium St C. diff Tox Epid 027 Negative C. difficile Tox (PCR) Negative 06/11/18 06/12/18 06/12/18 20:17 00:59 04:00 WBC 7.4 RBC 2.63 L Hgb 7.9 L Hct 22.6 L MCV 86.0 MCH 29.8 MCHC 34.7 RDW 16.7 Plt Count 264 MPV 7.8 Sodium Potassium Chloride Carbon Dioxide Anion Gap BUN Creatinine Estimated GFR POC Glucose 292 H 233 H Random Glucose Calcium Phosphorus Magnesium St C. diff Tox Epid 027 C. difficile Tox (PCR) 06/12/18 04:00 WBC RBC Hgb Hct MCV MCH MCHC RDW Plt Count MPV Sodium 134 L Potassium 3.5 Chloride 94 L Carbon Dioxide 26.3 Anion Gap 14 BUN 63 H Creatinine 7.75 H Estimated GFR 8 L POC Glucose Random Glucose 138 H Calcium 10.4 H Phosphorus 4.[address] C[address] diff Tox Epid 027 C. difficile Tox (PCR) Microbiology 06/10/18 13:50 Gram Stain - Final Fluid - Pleural fluid Body Fluid Culture - Preliminary No growth in 48 hours 06/10/18 20:45 Gram Stain - Final Sputum - Endotracheal Sputum Culture - Preliminary No growth in 24 hours 05/28/18 14:40 Fungal Smear - Final Wound - Arm No fungal elements seen Fungal Culture - Preliminary No growth in 2 weeks 05/28/18 14:40 Acid Fast Bacilli Smear - Final Wound - Arm No acid fast bacilli seen Mycobacterial Culture - Preliminary No growth in 2 weeks 05/28/18 14:40 Fungal Smear - Final Other No fungal elements seen Fungal Culture - Preliminary No growth in 2 weeks 05/28/18 14:40 Acid Fast Bacilli Smear - Final Other No acid fast bacilli seen Mycobacterial Culture - Preliminary No growth in 2 weeks 06/10/18 16:27 Aerobic Blood Culture - Preliminary Blood - Peripheral No growth in 1 day Anaerobic Blood Culture - Preliminary No growth in 1 day 06/10/18 16:32 Aerobic Blood Culture - Preliminary Blood - Peripheral No growth in 1 day Anaerobic Blood Culture - Preliminary No growth in 1 day 06/06/18 05:20 Aerobic Blood Culture - Final Blood - Peripheral No growth in 5 days Anaerobic Blood Culture - Final No growth in 5 days 06/06/18 05:40 Aerobic Blood Culture - Final Blood - Peripheral No growth in 5 days Anaerobic Blood Culture - Final No growth in 5 days Assessment and Plan - Assessment (1) Septic shock Code(s): A41.9 - Sepsis, unspecified organism; R65.21 - Severe sepsis with septic shock Status: Deleted (2) Arteriovenous graft infection Code(s): T82.7XXA - Infection and inflammatory reaction due to other cardiac and vascular devices, implants and grafts, initial encounter Status: Deleted - Plan POD#15 Pt s/p excision of R neck and arm graft Pt continues to slowly wean off the ventilator, on CPAP currently HD at the BS Plan Continue vent wean and work towards extubation again Continue daily w/d dressing- R neck Continue antibiotics Eliane Rucker NP [facility] [phone] - Attending Attestation I saw Mr. Laguerre today and discussed his condition with his . I am not as convinced that he has a clinical picture driven by the remnant of defunctionalized graft. Blood cultures 06/04: 1 of 4 positive. Blood cultures 06/05: 0 of 4 positive Blood cultures 06/06: 0 of 4 positive. I agree with Dr. Morgan's suspicion for endocarditis and recommend RAN (not TTE). Will continue to follow. As I discussed with Ms. Laguerre, will return to OR if clinical indicated. Arm looks great and ultrasound shows appropraite post- operative fluid but it not pathogmnemoic for infection.
[2018-06-12] MEDS: Albumin Human 25% Inj 100 ML IV.SIG SCH ×2 (10:50→22:52)
--- NOTE | 2018-06-12 15:54 | P.PNNP ---
Subjective Interval history: Patient remains on ventilator Physical Exam Vital signs: Vital Signs 06/11/18 15:54 06/11/18 16:00 06/11/18 16:30 Temperature Pulse Rate 97 H 92 H 91 H Respiratory Rate 30 H 31 H 29 H Blood Pressure 122/62 108/59 L 125/63 Pulse Oximetry 100 100 100 06/11/18 17:00 06/11/18 17:30 06/11/18 18:00 Temperature 99.4 F Pulse Rate 97 H 89 114 H Respiratory Rate 20 16 21 Blood Pressure 138/63 143/63 H Pulse Oximetry 100 100 100 06/11/18 18:01 06/11/18 19:41 06/11/18 20:00 Temperature Pulse Rate 116 H 97 H 102 H Respiratory Rate 20 20 16 Blood Pressure 165/76 H 116/61 Pulse Oximetry 100 100 100 06/11/18 22:00 06/11/18 22:59 06/12/18 00:00 Temperature Pulse Rate 108 H 74 Respiratory Rate 30 H 19 11 L Blood Pressure 141/83 H 125/58 L Pulse Oximetry 94 L 96 06/12/18 00:20 06/12/18 02:00 06/12/18 02:10 Temperature Pulse Rate 81 Respiratory Rate 18 17 17 Blood Pressure 124/63 Pulse Oximetry 94 L 97 06/12/18 04:00 06/12/18 05:47 06/12/18 06:00 Temperature 98.8 F Pulse Rate 81 74 Respiratory Rate 21 17 21 Blood Pressure 136/66 94/65 L Pulse Oximetry 97 97 06/12/18 07:50 06/12/18 14:16 06/12/18 15:34 Temperature Pulse Rate Respiratory Rate 23 18 16 Blood Pressure Pulse Oximetry 94 L 98 96 Intake & Output 06/11/18 06/12/18 06/12/18 18:59 06:59 18:59 Intake Total 1430 / 1430 2130 / 2130 250 / 250 Output Total 210 / 210 110 / 110 3500 / 3500 Balance 1220 / 1220 2020 / 2020 -3250 / -3250 Weight 140 kg Intake: IV 700 / 700 1400 / 1400 250 / 250 Diprivan 1000 mg/100 ml Inj 1, 0 / 0 000 mg In 100 ml @ 5 MCG/KG/MIN 3.87 mls/hr IV.CONT TITRATE PRN Rx#:[id number] Pitressin Inj 40 UNIT In D5W 100 / 100 Inj 98 ML @ 0.01 UNITS/MIN 1.5 mls/hr IV.CONT TITRATE PRN Rx#: [id number] Flexbumin 25% Inj 100 ML @ 60 200 / 200 100 / 100 mls/hr IV.SIG Q12H [facility] Rx#: [id number] Diflucan 200 mg Premix Bag 100 200 / 200 ML @ 100 mls/hr IV.SIG Q24H [facility] Rx#:[id number] Levophed-Dextrose 4 mg/250 ml 250 / 250 Drip 4 mg In 250 ml @ 2 MCG/MIN 7.5 mls/hr IV.SIG TITRATE PRN Rx#:[id number] NS Inj 250 ML @ As Directed IV. 250 / 250 SIG BOLUS ONE Rx#:[id number] NS Inj 500 ML @ Wide Open IV. 500 / 500 SIG BOLUS [facility] Rx#:[id number] Vancomycin Inj 1,000 MG In NS 250 / 250 250 / 250 Inj 250 ML @ 250 mls/hr IV.SIG WITH DIALYSIS [facility] Rx#:[id number] fentaNYL 10 mcg/mL Premix Drip 250 / 250 2,500 mcg In 250 ml @ 50 MCG/HR 5 mls/hr IV.SIG TITRATE PRN Rx #:[id number] Tube Feeding 490 / 490 490 / 490 Tube Irrigant 240 / 240 240 / 240 Output: Urine 0 / 0 0 / 0 Stool 40 / 40 60 / 60 Hemodialysis Amount 3500 / 3500 Chest Tube Drainage 170 / 170 50 / 50 #2 Left Lower Mid-Axillary 170 / 170 50 / 50 Chest Other: Date of Last Bowel Movement 06/11/18 06/12/18 06/12/18 - Constitutional no acute distress - Routine HEENT Exam Head: Present: normocephalic - Routine Respiratory Exam Present: CTA bilaterally - Routine Cardiovascular Exam Present: S1, S2, irregular rhythm - Routine Abdominal Exam Present: soft, normoactive bowel sounds - Routine Extremities Exam Present: edema - Urinary Catheter Management Suprapubic Cath placed during this visit: no Assessment and Plan - Assessment (1) End stage renal disease on dialysis Code(s): N18.6 - End stage renal disease; Z99.2 - Dependence on renal dialysis Status: Acute (2) Acute hypoxemic respiratory failure Code(s): J96.01 - Acute respiratory failure with hypoxia Status: Deleted (3) Arteriovenous graft infection Code(s): T82.7XXA - Infection and inflammatory reaction due to other cardiac and vascular devices, implants and grafts, initial encounter Status: Deleted (4) Atrial fibrillation with RVR Code(s): I48.91 - Unspecified atrial fibrillation Status: Deleted (5) Hemodialysis access, AV graft Code(s): Z99.2 - Dependence on renal dialysis Status: Acute - Plan Patient has sepsis and undergoing treatment with IV vancomycin He is scheduled to do dialysis, Friday and Friday done today 3.5 L of ultrafiltration HD MWF Apparent HeRO infection and MRSA: Removal of previous left IJ port, s/p partial removal for right arm graft and HeRO outflow component. Ongoing hypotension - follow with ID and Vascular Continue on Friday and Friday schedule --
--- NOTE | 2018-06-12 17:04 | ECHRPT ---
Indication: Sepsis and Possible Endocarditis CONCLUSIONS Normal left ventricular size. Mild concentric left ventricular hypertrophy. The left ventricular systolic function is normal with an estimated ejection fraction in the range of 55-60%. There is trace tricuspid valve regurgitation. There is a small pericardial effusion present. BP: / HR: Rhythm: MEASUREMENTS (Male / Female) Normal Values Technical Quality:Technically difficult study 2D ECHO LV Diastolic Diameter PLAX 4.3 cm 4.2 - 5.9 / 3.9 - 5.3 cm LV Systolic Diameter PLAX 3.1 cm IVS Diastolic Thickness 1.2 cm 0.6 - 1.0 / 0.6 - 0.9 cm LVPW Diastolic Thickness 1.2 cm 0.6 - 1.0 / 0.6 - 0.9 cm LV Relative Wall Thickness 0.6 LA Systolic Diameter LX 3.0 cm 3.0 - 4.0 / 2.7 - 3.8 cm DOPPLER TR Peak Velocity 289.0 cm/s TR Peak Gradient 33.4 mmHg Right Atrial Pressure 10.0 mmHg Pulmonary Artery Systolic Pressu 43.4 mmHg Right Ventricular Systolic Press 43.4 mmHg PV Peak Velocity 125.0 cm/s PV Peak Gradient 6.3 mmHg FINDINGS LEFT VENTRICLE Normal left ventricular size. Mild concentric left ventricular hypertrophy. The left ventricular systolic function is normal with an estimated ejection fraction in the range of 55-60%. No regional wall motion abnormalities are present. RIGHT VENTRICLE Normal right ventricular size and systolic function. LEFT ATRIUM The left atrial size is normal. RIGHT ATRIUM The right atrial size is normal. ATRIAL SEPTUM Normal atrial septal thickness without atrial level shunting by limited color doppler interrogation. AORTA The aortic root and proximal ascending aorta are normal in size on limited imaging. MITRAL VALVE Structurally normal mitral valve. No mitral valve stenosis or regurgitation. AORTIC VALVE Aortic valve sclerosis is present. TRICUSPID VALVE There is trace tricuspid valve regurgitation. PULMONARY VALVE No pulmonary valve regurgitation or stenosis. VESSELS The inferior vena cava is normal in size. PERICARDIUM There is a small pericardial effusion present. Rylan Damian MD, FACC (Electronically Signed) Final Date:12 June 2018 17:03
[2018-06-12] MEDS: fentaNYL 10 mcg/mL Premix Drip 2,500 MCG/250 ML BAG IV.SIG PRN (17:48)
--- NOTE | 2018-06-12 19:31 | P.PNID ---
Subjective Remarks: afebrile On pressors, Levaphed down to 8 mcgs Last + blood clx from 06/04 Upper Extremity Ultrasound 06/06/18 00:00 showed Nonspecific complex fluid collection could be postprocedural change, however infectious process is not excluded. Culture from it + for MRSA Chest CT 06/10/18 12:01 showed Bilateral parenchymal infiltrates are seen as well as bilateral moderate effusions left greater than right and Pulmonary nodules are identified including cavitary lesions. Antibiotics: vanco fluconazole rifampin Allergies/Adverse Reactions: Allergies No Known Allergies Allergy (Unknown, Uncoded 12/24/17 14:57) Objective Vital Signs 06/11/18 19:41 06/11/18 20:00 06/11/18 22:00 Temperature Pulse Rate 97 H 102 H 108 H Respiratory Rate 20 16 30 H Blood Pressure 116/61 141/83 H Pulse Oximetry 100 100 94 L 06/11/18 22:59 06/12/18 00:00 06/12/18 00:20 Temperature Pulse Rate 74 Respiratory Rate 19 11 L 18 Blood Pressure 125/58 L Pulse Oximetry 96 94 L 06/12/18 02:00 06/12/18 02:10 06/12/18 04:00 Temperature 98.8 F Pulse Rate 81 81 Respiratory Rate 17 17 21 Blood Pressure 124/63 136/66 Pulse Oximetry 97 97 06/12/18 05:47 06/12/18 06:00 06/12/18 07:00 Temperature Pulse Rate 74 Respiratory Rate 17 21 Blood Pressure 94/65 L 139/61 Pulse Oximetry 97 06/12/18 07:31 06/12/18 07:50 06/12/18 08:00 Temperature Pulse Rate 86 80 Respiratory Rate 17 23 11 L Blood Pressure 150/72 H 144/65 H Pulse Oximetry 98 94 L 94 L 06/12/18 08:30 06/12/18 09:00 06/12/18 09:30 Temperature Pulse Rate 91 H 81 84 Respiratory Rate 10 L 12 18 Blood Pressure 129/59 L 114/59 L 118/59 L Pulse Oximetry 96 97 97 06/12/18 10:00 06/12/18 10:30 06/12/18 11:00 Temperature Pulse Rate 83 81 77 Respiratory Rate 12 9 L 11 L Blood Pressure 118/57 L 102/53 L 105/55 L Pulse Oximetry 99 97 97 06/12/18 11:30 06/12/18 12:00 06/12/18 12:30 Temperature Pulse Rate 76 81 85 Respiratory Rate 11 L 14 20 Blood Pressure 108/62 126/60 142/65 H Pulse Oximetry 98 99 99 06/12/18 13:00 06/12/18 13:01 06/12/18 13:30 Temperature Pulse Rate 85 102 H 84 Respiratory Rate 35 H 26 H 14 Blood Pressure 134/101 H 117/58 L Pulse Oximetry 94 L 96 98 06/12/18 14:00 06/12/18 14:16 06/12/18 14:30 Temperature Pulse Rate 86 84 Respiratory Rate 15 18 19 Blood Pressure 130/59 L 115/58 L Pulse Oximetry 98 98 97 06/12/18 15:00 06/12/18 15:30 06/12/18 15:34 Temperature Pulse Rate 85 83 Respiratory Rate 19 10 L 16 Blood Pressure 134/63 117/59 L Pulse Oximetry 95 93 L 96 06/12/18 16:00 06/12/18 16:30 06/12/18 16:44 Temperature Pulse Rate 77 77 Respiratory Rate 10 L 13 21 Blood Pressure 121/58 L 125/63 Pulse Oximetry 91 L 94 L 98 06/12/18 17:00 06/12/18 17:30 06/12/18 18:00 Temperature Pulse Rate 84 80 80 Respiratory Rate 9 L 15 12 Blood Pressure 123/65 100/59 L 105/62 Pulse Oximetry 92 L 94 L 95 06/12/18 18:30 06/12/18 19:00 Temperature Pulse Rate 82 81 Respiratory Rate 9 L 12 Blood Pressure 109/62 112/62 Pulse Oximetry 96 95 Intake & Output 06/12/18 06/12/18 06/13/18 06:59 18:59 06:59 Intake Total 2130 / 2130 906 / 906 Output Total 110 / 110 3500 / 3500 Balance 2019 / 2019 -2594 / -2594 Weight 140 kg Intake: IV 1400 / 1400 600 / 600 Pitressin Inj 40 UNIT In D5W 100 / 100 Inj 98 ML @ 0.01 UNITS/MIN 1.5 mls/hr IV.CONT TITRATE PRN Rx#: [id number] Flexbumin 25% Inj 100 ML @ 60 100 / 100 100 / 100 mls/hr IV.SIG Q12H [facility] Rx#: [id number] Diflucan 200 mg Premix Bag 100 200 / 200 ML @ 100 mls/hr IV.SIG Q24H [facility] Rx#:[id number] Levophed-Dextrose 4 mg/250 ml 250 / 250 250 / 250 Drip 4 mg In 250 ml @ 2 MCG/MIN 7.5 mls/hr IV.SIG TITRATE PRN Rx#:[id number] NS Inj 500 ML @ Wide Open IV. 500 / 500 SIG BOLUS [facility] Rx#:[id number] Vancomycin Inj 1,000 MG In NS 250 / 250 250 / 250 Inj 250 ML @ 250 mls/hr IV.SIG WITH DIALYSIS [facility] Rx#:[id number] Tube Feeding 490 / 490 126 / 126 Tube Irrigant 240 / 240 Water Bolus Amount 180 / 180 Output: Urine 0 / 0 Stool 60 / 60 Hemodialysis Amount 3500 / 3500 Chest Tube Drainage 50 / 50 #2 Left Lower Mid-Axillary 50 / 50 Chest Other: Date of Last Bowel Movement 06/12/18 06/12/18 06/10/18 20:45 Sputum - Endotracheal Gram Stain - Final 06/10/18 20:45 Sputum - Endotracheal Sputum Culture - Final Rare growth normal respiratory bertin 06/10/18 16:27 Blood - Peripheral Aerobic Blood Culture - Preliminary No growth in 2 days 06/10/18 16:27 Blood - Peripheral Anaerobic Blood Culture - Preliminary No growth in 2 days 06/10/18 16:32 Blood - Peripheral Aerobic Blood Culture - Preliminary No growth in 2 days 06/10/18 16:32 Blood - Peripheral Anaerobic Blood Culture - Preliminary No growth in 2 days 06/10/18 13:50 Fluid - Pleural fluid Gram Stain - Final 06/10/18 13:50 Fluid - Pleural fluid Body Fluid Culture - Preliminary No growth in 48 hours 05/28/18 14:40 Wound - Arm Fungal Smear - Final No fungal elements seen 05/28/18 14:40 Wound - Arm Fungal Culture - Preliminary No growth in 2 weeks 05/28/18 14:40 Wound - Arm Acid Fast Bacilli Smear - Final No acid fast bacilli seen 05/28/18 14:40 Wound - Arm Mycobacterial Culture - Preliminary No growth in 2 weeks 05/28/18 14:40 Other Fungal Smear - Final No fungal elements seen 05/28/18 14:40 Other Fungal Culture - Preliminary No growth in 2 weeks 05/28/18 14:40 Other Acid Fast Bacilli Smear - Final No acid fast bacilli seen 05/28/18 14:40 Other Mycobacterial Culture - Preliminary No growth in 2 weeks 06/06/18 05:20 Blood - Peripheral Aerobic Blood Culture - Final No growth in 5 days 06/06/18 05:20 Blood - Peripheral Anaerobic Blood Culture - Final No growth in 5 days 06/06/18 05:40 Blood - Peripheral Aerobic Blood Culture - Final No growth in 5 days 06/06/18 05:40 Blood - Peripheral Anaerobic Blood Culture - Final No growth in 5 days 06/05/18 06:10 Blood - Peripheral Aerobic Blood Culture - Final No growth in 5 days 06/05/18 06:10 Blood - Peripheral Anaerobic Blood Culture - Final No growth in 5 days 06/05/18 06:19 Blood - Peripheral Aerobic Blood Culture - Final No growth in 5 days 06/05/18 06:19 Blood - Peripheral Anaerobic Blood Culture - Final No growth in 5 days Lab - Hematology Results 06/11/18 06/12/18 04:15 04:00 WBC 7.0 7.4 RBC 2.92 L 2.63 L Hgb 8.7 L 7.9 L Hct 25.3 L 22.6 L MCV 86.5 86.0 MCH 29.7 29.8 MCHC 34.4 34.7 RDW 17.2 16.7 Plt Count 280 264 MPV 8.3 7.8 Lab - Chemistry Results 06/10/18 06/10/18 06/11/18 20:33 23:08 04:08 Sodium Potassium Chloride Carbon Dioxide Anion Gap BUN Creatinine Estimated GFR POC Glucose 247 H 244 H 188 H Random Glucose Calcium Phosphorus Magnesium Total Bilirubin AST ALT Alkaline Phosphatase Total Protein Albumin 06/11/18 06/11/18 06/11/18 04:15 08:38 11:36 Sodium 135 L Potassium 3.6 Chloride 96 L Carbon Dioxide 25.4 Anion Gap 14 BUN 56 H Creatinine 6.77 H Estimated GFR 10 L POC Glucose 284 H 272 H Random Glucose 173 H Calcium 10.5 H D Phosphorus 4.8 D Magnesium 2.3 Total Bilirubin 0.5 AST 17 ALT 12 Alkaline Phosphatase 135 H Total Protein 8.8 H D Albumin 3.6 D 06/11/18 06/11/18 06/12/18 17:21 20:17 00:59 Sodium Potassium Chloride Carbon Dioxide Anion Gap BUN Creatinine Estimated GFR POC Glucose 264 H 292 H 233 H Random Glucose Calcium Phosphorus Magnesium Total Bilirubin AST ALT Alkaline Phosphatase Total Protein Albumin 06/12/18 06/12/18 06/12/18 04:00 13:08 15:50 Sodium 134 L Potassium 3.5 Chloride 94 L Carbon Dioxide 26.3 Anion Gap 14 BUN 63 H Creatinine 7.75 H Estimated GFR 8 L POC Glucose 267 H 235 H Random Glucose 138 H Calcium 10.4 H Phosphorus 4.9 Magnesium 2.2 Total Bilirubin AST ALT Alkaline Phosphatase Total Protein Albumin Imaging: ITS Impressions Abdomen X-Ray 05/31/18 00:00 CONCLUSION: 1. Suction-type NGT in the stomach. Upper Extremity Ultrasound 06/06/18 00:00 CONCLUSION: 1. Nonspecific complex fluid collection could be postprocedural change, however infectious process is not excluded. Chest CT 06/10/18 12:01 CONCLUSION: 1. Bilateral parenchymal infiltrates are seen as well as bilateral moderate effusions left greater than right. 2. Pulmonary nodules are identified including cavitary lesions. Chest X-Ray 06/11/18 06:00 CONCLUSION: Improved left lung airspace consolidation. There is residual bilateral airspace consolidation, left greater than right. Physical Exam: GENERAL: NAD sedated. intubated on vent SKIN: Warm and dry. No rash HEAD: Atraumatic. Normocephalic. EYES: Pupils equal and round. No scleral icterus. No injection or drainage. ENT: No nasal bleeding or discharge. Mucous membranes pink and moist. NECK: Trachea midline. No JVD. CARDIOVASCULAR: Regular rate and rhythm. Chest incision is open and packed, minim,al serosang drainage on the packing RESPIRATORY: No accessory muscle use. Rhonchi to auscultation. Breath sounds equal bilaterally. CT in place in [facility] very cloudy sedrosangious d/c GASTROINTESTINAL: Abdomen soft, non-tender, nondistended. Hepatic and splenic margins not palpable. MUSCULOSKELETAL: Extremities without clubbing, cyanosis, +edema. 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 Both isolates S to CFTX MRSA PNA Persistend hypotensiotn, back on pressors Clearly another septic episode: persistent graft infx vs new infection pt remains critical and unstable wi th persistent hypotensio requiring pressors, dose increased to 13 mcgs Pleural effusion cont vancomycin: keep trough 15-20 cont rifampin cont fluconazol x 2 weeks total Needs removal of the remainder of the graft to control sepsis consider RAN repeat CXR
[2018-06-12] MEDS: Propofol 1000 mg/100 ml Inj 1,000 MG/100 ML BOTTLE IV.CONT PRN (23:44)
--- NOTE | 2018-06-13 04:11 | XR ---
EXAM DATE: 06/13/2018 4:05 AM EDT AGE/SEX: 73 years / Male INDICATIONS: Shortness of breath, possible pulmonary disease. CLINICAL DATA: This is the patient's subsequent encounter. Patient reports that signs and symptoms h ave been present for 3 weeks and indicates a pain score of Nonresponsive. MEDICAL/SURGICAL HISTORY: Deep venous thrombosis. Diabetes mellitus type II. Hypertension. R enal disease. None. COMPARISON: C, CHEST 1V SINGLE AP, 06/11/2018. . FINDINGS: ET tube tip is above the level of the clavicles. Gastric tube traverses the [id number]. Left inter nal jugular catheter tip projects in the midline in the innominate vein. There is persisting consolid ation in the left lower lung with loss of delineation of the medial one third of the left hemidiaphra gm. Patchy infiltrates in the left suprahilar region are similar to prior. There is mild elevation of the right hemidiaphragm similar to prior with some basilar infiltrates or atelectasis. Right subclav jerman stent in place. CONCLUSION: 1. Persistent left lower lung consolidation and patchy infiltrates in the left upper lung. 2. ET tube tip is above the level of the clavicles. Electronically signed by: Clinton Gamble MD 06/13/2018 4:09 AM EDT
[2018-06-13] MEDS: fentaNYL 10 mcg/mL Premix Drip 2,500 MCG/250 ML BAG IV.SIG PRN ×2 (04:25→17:05)
[2018-06-13] MEDS: Sodium Chlor 0.9% Inj 100 ML IV.SIG SCH ×10 (04:27→23:39)
[2018-06-13] MEDS: Insulin NovoLOG Aspart Correctional Sugar Inj SQ SCH ×5 (04:30→21:12)
[2018-06-13] MEDS: Propofol 1000 mg/100 ml Inj 1,000 MG/100 ML BOTTLE IV.CONT PRN ×4 (04:57→23:40)
[2018-06-13 05:51] LABS: Mean Corpuscular Hemoglobin 29.9 pg (27.0-34.0); Mean Corpuscular Volume 87.8 fL (80.0-100.0); Mean Platelet Volume 7.3 fL (7.0-11.0); Platelet Count 219 th/mm3 (150-450); Red Blood Count 2.24 mil/mm3 (4.50-5.90); Red Cell Distribution Width 16.4 % (11.6-17.2); White Blood Count 5.7 th/mm3 (4.0-11.0)
[2018-06-13 06:02] LABS: Calcium 10.4 mg/dL (8.5-10.1); Carbon Dioxide 23.2 meq/L (21.0-32.0); Potassium 3.9 meq/L (3.5-5.1)
[2018-06-13 06:06] LABS: Hematocrit 19.7 % (39.0-51.0); Hemoglobin 6.7 gm/dL (13.0-17.0)
[2018-06-13 06:16] LABS: Phosphorus 6.1 mg/dL (2.5-4.9)
--- NOTE | 2018-06-13 07:31 | P.PNCC ---
Subjective Subjective Remarks/Hospital Course: Mr. Laguerre is a 73-year-old -Turk[place] male with past medical history significant for end-stage renal disease on hemodialysis, hypertension, complicated vascular access, HeRO graft placement by Dr. Umana on 09/23/2017, revision and PTFE replacement 12/25/17. who presented to the [facility] with probable sepsis and shock. Dr. Umana was contacted and patient was accepted for transfer to CVICU in [facility]. I immediately evaluated the patient on arrival to CVICU. Patient is currently on BiPAP (transported on BiPAP) severely encephalopathic hardly wakes up to sternal rub, with a rapid shallow breathing. BiPAP settings 18/8, 60% FiO2. He is literally unresponsive and not protecting airway. Currently he is on Levophed at 20 mcg/min with a map 65-70. He is also on amiodarone for atrial fibrillation with RVR. Because of lack of airway protection, severe encephalopathy, septic shock and hypoxia I proceeded with endotracheal intubation. His glottic opening was completely occluded with thick secretions, several minutes of suctioning needed to clear the secretions prior to intubation. Postintubation Levophed had to be increased to 30 mcg/min, I also placed an arterial line. All cultures, routine labs and lactic acid pending at this time. I have started him on vancomycin and Zosyn. Discussed case with Dr. Umana extensively Patient was unable to provide any history, according to the RN who got report patient apparently had GI bleed, underwent EGD with cauterization of duodenal ulcer few days ago. Will avoid heparin for DVT prophylaxis. His postintubation ABG showed severe hypoxia with significant AA gradient, metabolic acidosis, and a hemoglobin of 7.6. Currently Levophed is increased to 30 mcg/min, I will transfuse 1 unit PRBC. Chest x-ray shows pulmonary edema will arrange for hemodialysis once his shock is improves. At this time he will not be able to tolerate either hemodialysis or even CVVH 05/28: initially evaluated around 6:30am. patient in refractory septic shock. added epinephrine to levophed and vasopressin. discussed with Dr. Umana. obtained u/s of the right upper extremity which demonstrated fluid collection surrounding the HeRO graft which was heterogenous in nature. added single dose of Amikacin to vanc/zosyn regimen to cover ESBL organisms. patient remains in shock. per verbal report from OSH, blood cultures growing MRSA. taken to OR urgently and large amount of purulent drainage debrided from around catheter. HeRO catheter removed. returns from OR persistently unstable. acidosis worsening. bicarb given. discussed with nephrology and will need CRRT. 05/29: s/p emergent debridement and removal of HeRO graft. today vasopressor doses are somewhat lower, although remains on levo,vaso,epi. lactate cleared. s/ p IHD today with 3L removal. blood growing MRSA. sputum growing e.coli, providencia, MRSA. wbc remains elevated. 05/30: off vasopressors. getting IHD again today. hgb 7 and receiving 1 unit prbc during dialysis. encephalopathy persists, not following commands. 05/31: clinically continues to improve. not following commands, very slow to arouse. bradycardic this AM, but tolerating hemodynamically. HD yesterday with volume removal. 06/01: Clinically improved off all pressors. Sedated with propofol and fentanyl , opens eyes moves extremities not following commands. Plan for hemodialysis today. Initiate CPAP trial after hemodialysis. Persistently bacteremic with MRSA, repeat cultures in 24 hours 06/02: Remains in septic shock, though pressor requirement has improved. Hypotensive bradycardic while getting HD yesterday, started on Dopamine, now at 3 mcg/kg/min. Pus being expressed from upper part of right upper chest [id number] (HeRO AVG removal site). Hypothermic. Some pus around the suprapubic catheter 06/03: Patient had been weaned off all pressors now. Not requiring dopamine for the last 18 hours. However WBC count 13 K today. Persistent bacteremia with MRSA. Source could be right upper extremity graft remnant versus infected invasive catheters. After hemodialysis removal HD catheter, also remove left IJ central line. Repeat blood cultures in 24 hours. Antibiotics broadened by ID yesterday 06/04: Showing some clinical signs of improvement. Not requiring pressors hypothermia has resolved. CBC still pending patient is more awake following commands tolerating CPAP now. Left IJ central line and right femoral Vas-Cath was removed yesterday. Plan for next dialysis is tomorrow will place new Vas- Cath tomorrow a.m. to give 'line holiday'. 06/05: Back on norepinephrine at 10 mics per minute. Blood blood pressure variable, intermittently hypotensive. New Vas-Cath placed in groin functional. Most recent cultures continued to grow gram-positive cocci. Alert when propofol is lightened Subjective: 06/06: Afebrile. Remains on norepinephrine drip at 7 mcg/min. Arousable on the ventilator on sedation vacation. Commands. -3 L with hemodialysis yesterday. Repeat blood cultures done the same. Right upper extremity ultrasound pending.. 06/07: remains on vasopressors. cxr today with new left pleural effusion which is quite large: confirmed on bedside lung ultrasound. pigtail chest tube placed with > 1L old hemothorax. hgb slightly lower, but hemodynamically stable. discussed with nephrology and vascular surgery and most ideal plan would be to transfuse prbc tomorrow with HD. 06/08: Remains intubated sedated with propofol. Currently on 8 mcg/min of Levophed but map is above 75. Getting 2 units of PRBC with dialysis for hemoglobin of 6.9. Left pigtail chest tube drained almost 2 L old blood appearing. I will request fluid studies from any residual drainage. CT of the chest to evaluate for any residual fluid. 06/09: Intubated sedated, wakes up and follows commands. On Levophed at 1 mcg/ min. CT of the chest shows small left pleural effusion bibasilar consolidation , multiple bilateral pulmonary nodules some cavitation indicating septic emboli most likely from staff. Blood cultures from 06/05/18 and 06/06/18 negative to date 06/10: Remains intubated slightly sedated follows commands. Levophed requirement has slightly increased overnight currently on 5 mcg/min. We will recheck blood cultures. Getting hemodialysis today. Chest x-ray shows severe left-sided airspace disease. Check ultrasound of the chest post dialysis. Left pigtail chest tube output 60 ml in last 24 hours 06/11 Patient is sedated with Diprivan and Fentanyl infusion, on Levophed 11 mics. Afebrile. Left pigtail catheter had 50 ml output and a second large bore CT was placed yesterday had approx 100ml overnight. 06/12 Patient remains intubated tolerated CPAP for several hrs yesterday remains on Levophed 10 mics and Vasopressin 0.04. Afebrile. Left pigtail catheter was dislodged yesterday, 28Fr CT had 50ml output overnight. Tolerating tube feeds. 06/13: Remains critical Levophed requirement has decreased to 5 mcg/min same dose of vasopressin 0.04. However hemoglobin has dropped to 6.7, 2 units of PRBC ordered stat. Chest tube output approximately 200 mL serosanguineous. I do not believe this is the source of his anemia. Previous history of GI bleed will consult GI. Remains encephalopathic and lethargic I do not think he can be successfully be weaned off the ventilator without a tracheostomy. General surgery consulted per Dr. Umana's request for OR tracheostomy Objective Vital Signs / I&O: Vital Signs 06/12/18 07:31 06/12/18 07:50 06/12/18 08:00 Temperature Pulse Rate 86 80 Respiratory Rate 17 23 11 L Blood Pressure 150/72 H 144/65 H Pulse Oximetry 98 94 L 94 L 06/12/18 08:30 06/12/18 09:00 06/12/18 09:30 Temperature Pulse Rate 91 H 81 84 Respiratory Rate 10 L 12 18 Blood Pressure 129/59 L 114/59 L 118/59 L Pulse Oximetry 96 97 97 06/12/18 10:00 06/12/18 10:30 06/12/18 11:00 Temperature Pulse Rate 83 81 77 Respiratory Rate 12 9 L 11 L Blood Pressure 118/57 L 102/53 L 105/55 L Pulse Oximetry 99 97 97 06/12/18 11:30 06/12/18 12:00 06/12/18 12:30 Temperature Pulse Rate 76 81 85 Respiratory Rate 11 L 14 20 Blood Pressure 108/62 126/60 142/65 H Pulse Oximetry 98 99 99 06/12/18 13:00 06/12/18 13:01 06/12/18 13:30 Temperature Pulse Rate 85 102 H 84 Respiratory Rate 35 H 26 H 14 Blood Pressure 134/101 H 117/58 L Pulse Oximetry 94 L 96 98 06/12/18 14:00 06/12/18 14:16 06/12/18 14:30 Temperature Pulse Rate 86 84 Respiratory Rate 15 18 19 Blood Pressure 130/59 L 115/58 L Pulse Oximetry 98 98 97 06/12/18 15:00 06/12/18 15:30 06/12/18 15:34 Temperature Pulse Rate 85 83 Respiratory Rate 19 10 L 16 Blood Pressure 134/63 117/59 L Pulse Oximetry 95 93 L 96 06/12/18 16:00 06/12/18 16:30 06/12/18 16:44 Temperature Pulse Rate 77 77 Respiratory Rate 10 L 13 21 Blood Pressure 121/58 L 125/63 Pulse Oximetry 91 L 94 L 98 06/12/18 17:00 06/12/18 17:30 06/12/18 18:00 Temperature Pulse Rate 84 80 80 Respiratory Rate 9 L 15 12 Blood Pressure 123/65 100/59 L 105/62 Pulse Oximetry 92 L 94 L 95 06/12/18 18:30 06/12/18 19:00 06/12/18 19:30 Temperature Pulse Rate 82 81 78 Respiratory Rate 9 L 12 10 L Blood Pressure 109/62 112/62 117/59 L Pulse Oximetry 96 95 96 06/12/18 19:54 06/12/18 20:00 06/12/18 20:30 Temperature 98.8 F Pulse Rate 76 72 Respiratory Rate 22 16 22 Blood Pressure 106/59 L 113/56 L Pulse Oximetry 95 97 97 06/12/18 21:00 06/12/18 21:30 06/12/18 22:00 Temperature Pulse Rate 72 73 75 Respiratory Rate 17 16 21 Blood Pressure 114/65 112/56 L 118/58 L Pulse Oximetry 95 95 93 L 06/12/18 22:30 06/12/18 23:00 06/12/18 23:30 Temperature Pulse Rate 72 75 79 Respiratory Rate 16 18 20 Blood Pressure 116/57 L 120/74 145/64 H Pulse Oximetry 96 96 95 06/13/18 00:00 06/13/18 00:01 06/13/18 00:07 Temperature 98.6 F Pulse Rate 71 73 Respiratory Rate 19 19 18 Blood Pressure 132/61 132/61 Pulse Oximetry 98 97 97 06/13/18 00:30 06/13/18 01:00 06/13/18 01:30 Temperature Pulse Rate 75 72 69 Respiratory Rate 20 21 17 Blood Pressure 113/54 L 108/56 L 124/61 Pulse Oximetry 93 L 97 96 06/13/18 02:00 06/13/18 02:30 06/13/18 03:00 Temperature Pulse Rate 68 64 67 Respiratory Rate 16 16 17 Blood Pressure 112/59 L 107/58 L 139/56 L Pulse Oximetry 96 97 96 06/13/18 03:30 06/13/18 04:00 06/13/18 04:01 Temperature 97.6 F Pulse Rate 61 59 L 59 L Respiratory Rate 16 16 16 Blood Pressure 129/61 128/62 128/62 Pulse Oximetry 98 99 99 06/13/18 04:31 06/13/18 04:54 06/13/18 05:00 Temperature Pulse Rate 70 61 Respiratory Rate 30 H 19 16 Blood Pressure 125/84 122/60 Pulse Oximetry 87 L 97 97 06/13/18 05:30 Temperature Pulse Rate 60 Respiratory Rate 16 Blood Pressure 124/60 Pulse Oximetry 98 Intake & Output 06/12/18 06/13/18 06/13/18 18:59 06:59 18:59 Intake Total 906 / 906 700 / 700 Output Total 3500 / 3500 Balance -2594 / -2594 700 / 700 Intake: IV 600 / 600 700 / 700 Diprivan 1000 mg/100 ml Inj 1, 100 / 100 000 mg In 100 ml @ 5 MCG/KG/MIN 3.87 mls/hr IV.CONT TITRATE PRN Rx#:[id number] Pitressin Inj 40 UNIT In D5W 100 / 100 Inj 98 ML @ 0.01 UNITS/MIN 1.5 mls/hr IV.CONT TITRATE PRN Rx#: [id number] Flexbumin 25% Inj 100 ML @ 60 100 / 100 mls/hr IV.SIG Q12H [facility] Rx#: [id number] Levophed-Dextrose 4 mg/250 ml 250 / 250 250 / 250 Drip 4 mg In 250 ml @ 2 MCG/MIN 7.5 mls/hr IV.SIG TITRATE PRN Rx#:[id number] Vancomycin Inj 1,000 MG In NS 250 / 250 Inj 250 ML @ 250 mls/hr IV.SIG WITH DIALYSIS [facility] Rx#:[id number] fentaNYL 10 mcg/mL Premix Drip 250 / 250 2,500 mcg In 250 ml @ 50 MCG/HR 5 mls/hr IV.SIG TITRATE PRN Rx #:[id number] Tube Feeding 126 / 126 Water Bolus Amount 180 / 180 Output: Hemodialysis Amount 3500 / 3500 Other: Date of Last Bowel Movement 06/12/18 06/12/18 Result Diagrams: 06/13/18 05:03 09/08/18 05:03 Objective Remarks: GENERAL: 73-year-old -Turkmen male, lying in bed, intubated, on sedation HEENT: Normocephalic. Atraumatic. Pupils equal, round, reactive. Mild oozing of blood from corner of the mouth NECK: Trachea is midline. Orotracheally intubated. CHEST: PRVC. equal chest rise. Air entry decreased predominantly in the left lung newman with few coarse rhonchi bilaterally. Good bilateral air movement. Left chest tube with 200 mL serosanguineous output in last 24 hours CARDIOVASCULAR: Atrial fibrillation rate controlled. No murmurs. No JVD. On Levophed and vasopressin ABDOMEN: Soft, nontender, nondistended. No guarding. MUSCULOSKELETAL: Right upper extremity s/p debridement upper incision W/D dressing. Pulses 2+. No peripheral edema. NEUROLOGICAL: Opens eyes spontaneously off sedation. Do not follow commands but moves extremities spontaneously. No focal deficits Assessment and Plan - Assessment and Plan Plan: NEURO/PSYCH: Toxic metabolic encephalopathy -Restarted on propofol and fentanyl due to patient biting on the tube, asynchronous with the vent -Acetaminophen 650 mg by tube every 6 hours as needed fever -Altered mentation secondary to toxic metabolic encephalopathy from sepsis and hypercapnia RESP: Acute hypoxemic and hypercarbic respiratory failure Multiple pulmonary nodules/septic emboli Pulmonary edema Left Hemothorax MRSA pneumonia HCAP with MRSA- present on admission General surgery consulted for tracheostomy-Dr. Umana requests OR trach -Continue abx. daily /SBT as narciso Ventilator bundle. DuoNeb every 6 hours scheduled and albuterol aerosols every 2 hours as needed -MRSA pneumonia treatment below s/p 10 Fr pigtail chest tube, left, with >1L old dark blood. 06/07. Dislodged 06/11 s/p 28Fr CT placement 06/10 with 400ml removed on insertion, had 200ml output last 24 hours. Fluid studies consistent with hemothorax CXR : Improved left lung airspace consolidation. There is residual bilateral airspace consolidation, left greater than right. CT of the chest shows multiple pulmonary nodules with some cavitation indicating septic emboli CV: Septic shock Acute severe anion gap Metabolic acidosis- resolved Pulmonary edema-resolving Atrial fibrillation with RVR-currently rate controlled -On Levophed and vasopressin 0.04 keep MAP>65mmHg - A. fib rate is controlled and currently normal sinus rhythm, cannot anticoagulate due to history of recent GI bleed -Echo 06/12/2018 shows GI/HEME/FEN: Recent GI bleed Acute anemia requiring transfusion Leukocytosis Hyperphosphatemia -s/p Transfuse 2U PRBC with HD 06/10, additional 2 units today 06/13/18 -Consult to Gi placed -Nepro tube feeds at 45 cc an hour per nutrition recommendations with Beneprotein 1 packet 3 times daily-keep NPO until GI consultt -IV pantoprazole 40 mg IV q12 -Docusate sodium/senna 1 tablet twice daily for bowel regimen -Calcium acetate 667 mg 3 times daily for elevated phosphorus. /renal: End-stage renal disease on hemodialysis HeRO graft placed 09/2017, now removed due to graft infection - Nephrology: Dr. Davidson following - continue HD per nephrology, Monitor renal function, I/O's, avoid nephrotoxins ID: Septic shock HeRO graft infection s/p removal HCAP pneumonia- present on admission MRSA septic emboli to lung Persistent MRSA bacteremia -Persistent MRSA bacteremia could be secondary to infected remnant of the AV graft, versus secondary seeding of the catheters -Removed Vas-Cath, and left IJ central line 06/03/18 - 05/27, 05/28, 05/30, 06/01 and 06/04 blood cultures MRSA - 05/27 sputum cultures: Providencia, MRSA, e.coli - 06/02 wound with Arlet albicans - ID Dr. Morgan, abx management per ID - cont vancomycin: keep trough 15-20 cont rifampin - Continue fluconazole - will need minimum 6 weeks coverage for MRSA graft infection - Dr. Umana following ENDO: Type 2 diabetes Presumed Adrenal insufficiency -Sliding scale insulin with aspart insulin every 4 hours -Status post stress steroids PROPH: -Bilateral lower extremity SCDs. IV Protonix 40 mg every 12. Chemical prophylaxis contraindicated due to anemia requiring transfusion LINES: -Removed OSH left IJ central line and OSH right femoral Vas-Cath on 06/03/2018 -New left femoral Vas-Cath placement 06/04/18 -left radial arterial line 05/27-DC today -New LIJ central line 06/08/18 due to ongoing pressor requirement Overall impression: likely shock may take time to resolve. hemothorax likely old and occult, unlikely to be active bleeding. if cultures persistently remain positive, would need to consider removal of distal remnant of graft CCT 35 MIN Code Status: Full
[2018-06-13] MEDS: Hypromellose 0.3% Opth Gel 10 GM Bottle EACH EYE SCH ×2 (09:16→21:12)
[2018-06-13] MEDS: Beneprotein Powder Packet G-TUBE SCH ×3 (09:16→17:06)
[2018-06-13] MEDS: Calcium Acetate 667 MG Capsule PO SCH ×3 (09:17→17:02)
[2018-06-13] MEDS: Senna/Docusate Sodium 8.6/50 MG Tablet PO SCH ×2 (09:17→21:13)
[2018-06-13] MEDS: Mupirocin 2% Nasal Oint Topical Syringe EACH NARE SCH ×2 (09:17→22:45)
[2018-06-13] MEDS: Pantoprazole Inj 40 MG Vial IV.PUSH SCH ×2 (11:31→23:39)
--- NOTE | 2018-06-13 11:56 | MB ---
cc: Justin Meier MD DATE: 06/13/2018 REASON FOR CONSULTATION: Anemia. HISTORY OF PRESENT ILLNESS: This is a 71-year-old male patient with a significant history for a recent duodenal ulcer, status post endoscopic therapy to control the bleeding and history of end-stage renal disease on hemodialysis, hypertension, peripheral vascular disease, respiratory failure requiring placement on ventilation with BiPAP setting, who is currently septic and on multiple antibiotics for that including aggressive of hydration, Levophed and critical care support. Gastrointestinal consulted because of a drop in his hemoglobin from his baseline with a drop in hemoglobin to 6.7. The patient is at the critical care unit now, difficult to obtain any history from him. Case discussed with the nursing staff. The NG tube is showing clear serosanguineous fluid that is yellowish in color. No blood or coffee-ground material. His rectal examination did not show any melena or dark stool. No evidence of active bleeding. The patient is receiving 2 units of blood at the current time with serial hemoglobins. REVIEW OF SYSTEMS: Unobtainable at the current time since the patient is on ventilator. PAST MEDICAL HISTORY: Includes diabetes, end-stage renal disease, DVT, hypertension, obesity. PAST SURGICAL HISTORY: Unobtainable. PSYCHOSOCIAL HISTORY: It is difficult to obtain at this time. MEDICATIONS: At the current time, include: 1. Prevacid 2. Acetaminophen. 3. Dulcolax. 4. Calcium. 5. Clonidine. 6. Dextrose. 7. Diphenhydramine. 8. Fentanyl. 9. Gentamicin. 10. Glucagon. 11. Insulin coverage. 12. Lactulose. 13. Mannitol 14. Nitroglycerin. 15. Norepinephrine. 16. Pantoprazole. 17. Propofol. 18. Rifampin. 19. Vancomycin. 20. Vasopressin. 21. Albumin infusion. ALLERGIES: NO KNOWN DRUG ALLERGIES. PHYSICAL EXAMINATION: GENERAL: The patient is ventilated. Difficult to assess his mental status. HEAD AND NECK: Atraumatic. Pupils equal, round, reactive to light. NECK: Supple. CHEST: Clear to auscultation bilaterally. NG tube revealing clear secretion, no blood. HEART: Regular rate and rhythm. ABDOMEN: Soft, nontender. No hepatosplenomegaly. No palpable masses. EXTREMITIES: Normal pulses. No edema. NEUROLOGIC: Difficult to assess with heavy sedation. LABORATORY DATA: Hemoglobin is 6.7, hematocrit 19.7. ASSESSMENT AND PLAN: This is a 73-year-old male patient with multiple comorbid conditions, currently on ventilator with septic shock, who was found to have a drop in his hemoglobin. The patient is known to have peptic ulcer disease in the recent past requiring endoscopic therapy. At the current time, patient is not exhibiting any signs of bleeding from the GI tract as NG tube is clear, rectal unremarkable for blood. We will continue GI protection with proton pump inhibitor. Avoid heparin and anticoagulants for the time being. We will need some kind of imaging including CT scan to look for subcutaneous bleeding or retroperitoneal if the patient drops further. Otherwise, I agree with all management and plan at the current time including aggressive hydration, management of sepsis, IV antibiotics, ventilator setting and frequent H and H blood transfusion as needed. We will follow up with you. Thank you for the consult. MD JIMI Mendoza/rony , 11:25 AM , 11:36 AM
--- NOTE | 2018-06-13 11:57 | P.PNVS ---
Subjective Subjective/Hospital Course: 73 sedated male on pressors Pt currently on CPAP Pt receiving HD at the 06/13/2018 Patient post AV graft removal of the right arm. There is no hematoma or infected tissue remaining in the area and unquestionably the sepsis is not from this site. 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 with possible additional sites Nothing to add to care at this time Patient quite anemic and probably should be transfused but I will leave it up to the checkman Objective Vital Signs / I&O: Vital Signs 06/12/18 12:00 06/12/18 12:30 06/12/18 13:00 Temperature Pulse Rate 81 85 85 Respiratory Rate 14 20 35 H Blood Pressure 126/60 142/65 H Pulse Oximetry 99 99 94 L 06/12/18 13:01 06/12/18 13:30 06/12/18 14:00 Temperature Pulse Rate 102 H 84 86 Respiratory Rate 26 H 14 15 Blood Pressure 134/101 H 117/58 L 130/59 L Pulse Oximetry 96 98 98 06/12/18 14:16 06/12/18 14:30 06/12/18 15:00 Temperature Pulse Rate 84 85 Respiratory Rate 18 19 19 Blood Pressure 115/58 L 134/63 Pulse Oximetry 98 97 95 06/12/18 15:30 06/12/18 15:34 06/12/18 16:00 Temperature Pulse Rate 83 77 Respiratory Rate 10 L 16 10 L Blood Pressure 117/59 L 121/58 L Pulse Oximetry 93 L 96 91 L 06/12/18 16:30 06/12/18 16:44 06/12/18 17:00 Temperature Pulse Rate 77 84 Respiratory Rate 13 21 9 L Blood Pressure 125/63 123/65 Pulse Oximetry 94 L 98 92 L 06/12/18 17:30 06/12/18 18:00 06/12/18 18:30 Temperature Pulse Rate 80 80 82 Respiratory Rate 15 12 9 L Blood Pressure 100/59 L 105/62 109/62 Pulse Oximetry 94 L 95 96 06/12/18 19:00 06/12/18 19:30 06/12/18 19:54 Temperature Pulse Rate 81 78 Respiratory Rate 12 10 L 22 Blood Pressure 112/62 117/59 L Pulse Oximetry 95 96 95 06/12/18 20:00 06/12/18 20:30 06/12/18 21:00 Temperature 98.8 F Pulse Rate 76 72 72 Respiratory Rate 16 22 17 Blood Pressure 106/59 L 113/56 L 114/65 Pulse Oximetry 97 97 95 06/12/18 21:30 06/12/18 22:00 06/12/18 22:30 Temperature Pulse Rate 73 75 72 Respiratory Rate 16 21 16 Blood Pressure 112/56 L 118/58 L 116/57 L Pulse Oximetry 95 93 L 96 06/12/18 23:00 06/12/18 23:30 06/13/18 00:00 Temperature 98.6 F Pulse Rate 75 79 71 Respiratory Rate 18 20 19 Blood Pressure 120/74 145/64 H 132/61 Pulse Oximetry 96 95 98 06/13/18 00:01 06/13/18 00:07 06/13/18 00:30 Temperature Pulse Rate 73 75 Respiratory Rate 19 18 20 Blood Pressure 132/61 113/54 L Pulse Oximetry 97 97 93 L 06/13/18 01:00 06/13/18 01:30 06/13/18 02:00 Temperature Pulse Rate 72 69 68 Respiratory Rate 21 17 16 Blood Pressure 108/56 L 124/61 112/59 L Pulse Oximetry 97 96 96 06/13/18 02:30 06/13/18 03:00 06/13/18 03:30 Temperature Pulse Rate 64 67 61 Respiratory Rate 16 17 16 Blood Pressure 107/58 L 139/56 L 129/61 Pulse Oximetry 97 96 98 06/13/18 04:00 06/13/18 04:01 06/13/18 04:31 Temperature 97.6 F Pulse Rate 59 L 59 L 70 Respiratory Rate 16 16 30 H Blood Pressure 128/62 128/62 125/84 Pulse Oximetry 99 99 87 L 06/13/18 04:54 06/13/18 05:00 06/13/18 05:30 Temperature Pulse Rate 61 60 Respiratory Rate 19 16 16 Blood Pressure 122/60 124/60 Pulse Oximetry 97 97 98 06/13/18 06:00 06/13/18 06:31 06/13/18 07:00 Temperature Pulse Rate 65 60 61 Respiratory Rate 16 14 20 Blood Pressure 128/64 110/56 L 109/59 L Pulse Oximetry 98 98 94 L 06/13/18 07:30 06/13/18 07:53 06/13/18 08:00 Temperature Pulse Rate 62 58 L Respiratory Rate 16 16 16 Blood Pressure 106/58 L 120/60 Pulse Oximetry 95 93 L 100 06/13/18 09:06 06/13/18 09:24 06/13/18 11:31 Temperature 96.9 F L 97.5 F L Pulse Rate 59 L 61 Respiratory Rate 16 16 20 Blood Pressure 111/52 L 118/57 L Pulse Oximetry 97 94 L 95 Intake & Output 06/12/18 06/13/18 06/13/18 18:59 06:59 18:59 Intake Total 906 / 906 1470 / 1470 100 / 100 Output Total 3500 / 3500 220 / 220 Balance -2594 / -2594 1250 / 1250 100 / 100 Weight 136.5 kg Intake: IV 600 / 600 900 / 900 100 / 100 Diprivan 1000 mg/100 ml Inj 1, 100 / 100 100 / 100 000 mg In 100 ml @ 5 MCG/KG/MIN 3.87 mls/hr IV.CONT TITRATE PRN Rx#:[id number] Pitressin Inj 40 UNIT In D5W 100 / 100 Inj 98 ML @ 0.01 UNITS/MIN 1.5 mls/hr IV.CONT TITRATE PRN Rx#: [id number] Flexbumin 25% Inj 100 ML @ 60 100 / 100 100 / 100 mls/hr IV.SIG Q12H [facility] Rx#: [id number] Diflucan 200 mg Premix Bag 100 100 / 100 0 / 0 ML @ 100 mls/hr IV.SIG Q24H [facility] Rx#:[id number] Levophed-Dextrose 4 mg/250 ml 250 / 250 250 / 250 Drip 4 mg In 250 ml @ 2 MCG/MIN 7.5 mls/hr IV.SIG TITRATE PRN Rx#:[id number] Vancomycin Inj 1,000 MG In NS 250 / 250 Inj 250 ML @ 250 mls/hr IV.SIG WITH DIALYSIS [facility] Rx#:[id number] fentaNYL 10 mcg/mL Premix Drip 250 / 250 2,500 mcg In 250 ml @ 50 MCG/HR 5 mls/hr IV.SIG TITRATE PRN Rx #:[id number] Tube Feeding 126 / 126 430 / 430 Water Bolus Amount 180 / 180 140 / 140 Intake (Blood Product) Amt 0 / 0 Rbc As-3 Leukoreduced Unit 0 / 0 [id number] Output: Stool 180 / 180 Hemodialysis Amount 3500 / 3500 Chest Tube Drainage 40 / 40 #2 Left Lower Mid-Axillary 40 / 40 Chest Other: Date of Last Bowel Movement 06/12/18 06/13/18 Laboratory Results - last 24 hr 06/07/18 06/12/18 06/12/18 14:06 13:08 15:50 WBC RBC Hgb Hct MCV MCH MCHC RDW Plt Count MPV Sodium Potassium Chloride Carbon Dioxide Anion Gap BUN Creatinine Estimated GFR POC Glucose 267 H 235 H Random Glucose Calcium Phosphorus Magnesium Blood Type Antibody Screen MTS Gel Crossmatch See Detail 06/12/18 06/12/18 06/13/18 22:43 23:20 04:23 WBC RBC Hgb Hct MCV MCH MCHC RDW Plt Count MPV Sodium Potassium Chloride Carbon Dioxide Anion Gap BUN Creatinine Estimated GFR POC Glucose 202 H 209 H 188 H Random Glucose Calcium Phosphorus Magnesium Blood Type Antibody Screen MTS Gel Crossmatch 06/13/18 06/13/18 06/13/18 05:03 05:03 06:25 WBC 5.7 RBC 2.24 L Hgb 6.7 L* Hct 19.7 L* MCV 87.8 MCH 29.9 MCHC 34.0 RDW 16.4 Plt Count 219 MPV 7.3 Sodium 130 L Potassium 3.9 Chloride 92 L Carbon Dioxide 23.2 Anion Gap 15 BUN 57 H Creatinine 7.30 H Estimated GFR 9 L POC Glucose Random Glucose 197 H Calcium 10.4 H Phosphorus 6.1 H D Magnesium 2.0 Blood Type B Positive Antibody Screen Negative MTS Gel Crossmatch See Detail 06/13/18 08:49 WBC RBC Hgb Hct MCV MCH MCHC RDW Plt Count MPV Sodium Potassium Chloride Carbon Dioxide Anion Gap BUN Creatinine Estimated GFR POC Glucose 195 H Random Glucose Calcium Phosphorus Magnesium Blood Type Antibody Screen MTS Gel Crossmatch Microbiology 06/10/18 16:27 Aerobic Blood Culture - Preliminary Blood - Peripheral No growth in 3 days Anaerobic Blood Culture - Preliminary No growth in 3 days 06/10/18 16:32 Aerobic Blood Culture - Preliminary Blood - Peripheral No growth in 3 days Anaerobic Blood Culture - Preliminary No growth in 3 days 06/10/18 13:50 Gram Stain - Final Fluid - Pleural fluid Body Fluid Culture - Final No growth in 72 hours (aerobically and anaerobically) 06/10/18 20:45 Gram Stain - Final Sputum - Endotracheal Sputum Culture - Final Rare growth normal respiratory bertin Impressions Chest X-Ray 06/13/18 00:00 CONCLUSION: 1. Persistent left lower lung consolidation and patchy infiltrates in the left upper lung. 2. ET tube tip is above the level of the clavicles. Assessment and Plan - Plan POD#15 Pt s/p excision of R neck and arm graft Pt continues to slowly wean off the ventilator, on CPAP currently HD at the Plan Continue vent wean and work towards extubation again Continue daily w/d dressing- R neck Continue antibiotics Eliane Rucker NP [facility]/Marya [phone]
--- NOTE | 2018-06-13 12:25 | P.PNNP ---
Subjective Interval history: Patient getting packed red blood cells on ventilator Physical Exam Vital signs: Vital Signs 06/12/18 12:30 06/12/18 13:00 06/12/18 13:01 Temperature Pulse Rate 85 85 102 H Respiratory Rate 20 35 H 26 H Blood Pressure 142/65 H 134/101 H Pulse Oximetry 99 94 L 96 06/12/18 13:30 06/12/18 14:00 06/12/18 14:16 Temperature Pulse Rate 84 86 Respiratory Rate 14 15 18 Blood Pressure 117/58 L 130/59 L Pulse Oximetry 98 98 98 06/12/18 14:30 06/12/18 15:00 06/12/18 15:30 Temperature Pulse Rate 84 85 83 Respiratory Rate 19 19 10 L Blood Pressure 115/58 L 134/63 117/59 L Pulse Oximetry 97 95 93 L 06/12/18 15:34 06/12/18 16:00 06/12/18 16:30 Temperature Pulse Rate 77 77 Respiratory Rate 16 10 L 13 Blood Pressure 121/58 L 125/63 Pulse Oximetry 96 91 L 94 L 06/12/18 16:44 06/12/18 17:00 06/12/18 17:30 Temperature Pulse Rate 84 80 Respiratory Rate 21 9 L 15 Blood Pressure 123/65 100/59 L Pulse Oximetry 98 92 L 94 L 06/12/18 18:00 06/12/18 18:30 06/12/18 19:00 Temperature Pulse Rate 80 82 81 Respiratory Rate 12 9 L 12 Blood Pressure 105/62 109/62 112/62 Pulse Oximetry 95 96 95 06/12/18 19:30 06/12/18 19:54 06/12/18 20:00 Temperature 98.8 F Pulse Rate 78 76 Respiratory Rate 10 L 22 16 Blood Pressure 117/59 L 106/59 L Pulse Oximetry 96 95 97 06/12/18 20:30 06/12/18 21:00 06/12/18 21:30 Temperature Pulse Rate 72 72 73 Respiratory Rate 22 17 16 Blood Pressure 113/56 L 114/65 112/56 L Pulse Oximetry 97 95 95 06/12/18 22:00 06/12/18 22:30 06/12/18 23:00 Temperature Pulse Rate 75 72 75 Respiratory Rate 21 16 18 Blood Pressure 118/58 L 116/57 L 120/74 Pulse Oximetry 93 L 96 96 06/12/18 23:30 06/13/18 00:00 06/13/18 00:01 Temperature 98.6 F Pulse Rate 79 71 73 Respiratory Rate 20 19 19 Blood Pressure 145/64 H 132/61 132/61 Pulse Oximetry 95 98 97 06/13/18 00:07 06/13/18 00:30 06/13/18 01:00 Temperature Pulse Rate 75 72 Respiratory Rate 18 20 21 Blood Pressure 113/54 L 108/56 L Pulse Oximetry 97 93 L 97 06/13/18 01:30 06/13/18 02:00 06/13/18 02:30 Temperature Pulse Rate 69 68 64 Respiratory Rate 17 16 16 Blood Pressure 124/61 112/59 L 107/58 L Pulse Oximetry 96 96 97 06/13/18 03:00 06/13/18 03:30 06/13/18 04:00 Temperature 97.6 F Pulse Rate 67 61 59 L Respiratory Rate 17 16 16 Blood Pressure 139/56 L 129/61 128/62 Pulse Oximetry 96 98 99 06/13/18 04:01 06/13/18 04:31 06/13/18 04:54 Temperature Pulse Rate 59 L 70 Respiratory Rate 16 30 H 19 Blood Pressure 128/62 125/84 Pulse Oximetry 99 87 L 97 06/13/18 05:00 06/13/18 05:30 06/13/18 06:00 Temperature Pulse Rate 61 60 65 Respiratory Rate 16 16 16 Blood Pressure 122/60 124/60 128/64 Pulse Oximetry 97 98 98 06/13/18 06:31 06/13/18 07:00 06/13/18 07:30 Temperature Pulse Rate 60 61 62 Respiratory Rate 14 20 16 Blood Pressure 110/56 L 109/59 L 106/58 L Pulse Oximetry 98 94 L 95 06/13/18 07:53 06/13/18 08:00 06/13/18 09:06 Temperature 96.9 F L Pulse Rate 58 L 59 L Respiratory Rate 16 16 16 Blood Pressure 120/60 111/52 L Pulse Oximetry 93 L 100 97 06/13/18 09:24 06/13/18 11:31 Temperature 97.5 F L Pulse Rate 61 Respiratory Rate 16 20 Blood Pressure 118/57 L Pulse Oximetry 94 L 95 Intake & Output 06/12/18 06/13/18 06/13/18 18:59 06:59 18:59 Intake Total 906 / 906 1470 / 1470 100 / 100 Output Total 3500 / 3500 220 / 220 Balance -2594 / -2594 1250 / 1250 100 / 100 Weight 136.5 kg Intake: IV 600 / 600 900 / 900 100 / 100 Diprivan 1000 mg/100 ml Inj 1, 100 / 100 100 / 100 000 mg In 100 ml @ 5 MCG/KG/MIN 3.87 mls/hr IV.CONT TITRATE PRN Rx#:[id number] Pitressin Inj 40 UNIT In D5W 100 / 100 Inj 98 ML @ 0.01 UNITS/MIN 1.5 mls/hr IV.CONT TITRATE PRN Rx#: [id number] Flexbumin 25% Inj 100 ML @ 60 100 / 100 100 / 100 mls/hr IV.SIG Q12H [facility] Rx#: [id number] Diflucan 200 mg Premix Bag 100 100 / 100 0 / 0 ML @ 100 mls/hr IV.SIG Q24H [facility] Rx#:[id number] Levophed-Dextrose 4 mg/250 ml 250 / 250 250 / 250 Drip 4 mg In 250 ml @ 2 MCG/MIN 7.5 mls/hr IV.SIG TITRATE PRN Rx#:[id number] Vancomycin Inj 1,000 MG In NS 250 / 250 Inj 250 ML @ 250 mls/hr IV.SIG WITH DIALYSIS [facility] Rx#:[id number] fentaNYL 10 mcg/mL Premix Drip 250 / 250 2,500 mcg In 250 ml @ 50 MCG/HR 5 mls/hr IV.SIG TITRATE PRN Rx #:[id number] Tube Feeding 126 / 126 430 / 430 Water Bolus Amount 180 / 180 140 / 140 Intake (Blood Product) Amt 0 / 0 Rbc As-3 Leukoreduced Unit 0 / 0 [id number] Output: Stool 180 / 180 Hemodialysis Amount 3500 / 3500 Chest Tube Drainage 40 / 40 #2 Left Lower Mid-Axillary 40 / 40 Chest Other: Date of Last Bowel Movement 06/12/18 06/13/18 - Constitutional no acute distress - Routine HEENT Exam Head: Present: normocephalic - Routine Neck Exam Present: supple - Routine Respiratory Exam Present: patient mechanically ventilated - Routine Cardiovascular Exam Present: S1, S2, irregular rhythm - Routine Abdominal Exam Present: soft, normoactive bowel sounds, distended - Routine Extremities Exam Present: edema - Urinary Catheter Management Suprapubic Cath placed during this visit: no Assessment and Plan - Assessment (1) End stage renal disease on dialysis Code(s): N18.6 - End stage renal disease; Z99.2 - Dependence on renal dialysis Status: Acute (2) Acute hypoxemic respiratory failure Code(s): J96.01 - Acute respiratory failure with hypoxia Status: Deleted (3) Arteriovenous graft infection Code(s): T82.7XXA - Infection and inflammatory reaction due to other cardiac and vascular devices, implants and grafts, initial encounter Status: Deleted (4) Atrial fibrillation with RVR Code(s): I48.91 - Unspecified atrial fibrillation Status: Deleted (5) Hemodialysis access, AV graft Code(s): Z99.2 - Dependence on renal dialysis Status: Acute - Plan Patient has sepsis and undergoing treatment with IV vancomycin He is scheduled to do dialysis, Friday and Friday done yesterday 3.5 L of ultrafiltration Getting packed red blood cells for low hemoglobin remains critically HD MWF Apparent HeRO infection and MRSA: Removal of previous left IJ port, s/p partial removal for right arm graft and HeRO outflow component. Ongoing hypotension - follow with ID and Vascular Continue on Friday and Friday schedule --
[2018-06-13] MEDS: Vasopressin Inj 40 UNIT in Dextrose 5% in Water Inj 98 ML IV.CONT PRN ×2 (17:02)
--- NOTE | 2018-06-13 21:45 | MB ---
cc: Josafat Acosta MD DATE: 06/13/2018 REASON FOR CONSULTATION: Tracheostomy placement. REQUESTING PHYSICIAN: Corey Ortega MD CONSULTING PHYSICIAN: Josafat Acosta MD HISTORY OF PRESENT ILLNESS: The patient is a 73-year-old male who was admitted on 05/27/2018 with septic shock, requiring removal of previously placed right lower extremity and neck graft. These were removed and the patient has had dressing changes to clean wounds. Cultures have grown methicillin-resistant Staph and he remains on antibiotics. He has required transfusions, but has been able to be weaned off of most pressor agents at this time. I have spoken with Dr. Umana regarding the feasibility of performing a bedside tracheostomy and as the patient has central venous occlusion, he would likely have significant venous hypertension in the neck and the precervical veins and other veins. PAST MEDICAL HISTORY: Significant for diabetes mellitus, end-stage renal disease on dialysis, history of deep venous thrombosis, hypertension and obesity. MEDICATIONS: Currently include, 1. Dulcolax. 2. Calcium acetate PhosLo. 3. Clonidine HCL. 4. Benadryl p.r.n. 5. Epogen injection. 6. Fentanyl drip. 7. Diflucan daily. 8. Gentamicin with dialysis. 9. Heparin with dialysis as needed. 10. Sliding scale insulin. 11. Levophed drip at 2 mcg per minute currently. 12. Propofol drip. 13. Rifampin. 14. Senokot. The patient currently has a dressing on the right shoulder region. He has a central line in the left internal jugular vein. PHYSICAL EXAMINATION: GENERAL: Reveals an obese -[place] male who is sedated. NECK: As indicated above. He has a very short neck, but I can palpate the trachea. LUNGS: Clear to auscultation bilaterally. CARDIAC: Reveals tachycardia without murmurs. ABDOMEN: Soft and quiet. LABORATORY VALUES: Demonstrate a hemoglobin of 8.9 at 17:47 hours. White count was 5.7 and platelet count 219,000. Hemoglobin was 6.7 at 05:00 hours this morning and he received 2 units packed red cells. Latest chemistries today demonstrate sodium 130, potassium 3.9, BUN 57, creatinine 7.3, glucose is 200. ASSESSMENT AND PLAN: Recent admission for sepsis with graft infection status post removal of the graft. The patient remained sedated and on the vent. He would benefit from tracheostomy placement. The patient would best be served by a tracheostomy placed in the operating room due to central venous occlusion and the likelihood of venous hypertension. Control of bleeding vessels would be easier in the operative setting rather than at the bedside if the patient developed any bleeding issues. Dr. Umana is in complete agreement with this and Dr. Ortega has been made aware of this as well. We will plan on surgical procedure, most likely on Friday morning in between dialysis days of Friday, Friday, Friday. Thank you Dr. Ortega for asking me to see this individual. I will speak with the patient's prior to surgery to plan for elective procedure on 06/16/2018. Josafat Acosta MD MAF/sv , 08:25 PM , 08:35 PM
[2018-06-14] MEDS: Insulin NovoLOG Aspart Correctional Sugar Inj SQ SCH ×6 (00:18→21:04)
--- NOTE | 2018-06-14 03:47 | XR ---
EXAM DATE: 06/14/2018 3:35 AM EDT AGE/SEX: 73 years / Male INDICATIONS: Shortness of breath, possible pulmonary disease. CLINICAL DATA: This is the patient's subsequent encounter. Patient reports that signs and symptoms h ave been present for 3 weeks and indicates a pain score of Nonresponsive. MEDICAL/SURGICAL HISTORY: . Deep venous thrombosis. Diabetes mellitus type II. Hypertension. R enal disease. None. COMPARISON: [facility] [place], CHEST 1V SINGLE AP, 06/13/2018. . FINDINGS: ET tube tip 3 cm above the k[place]. Internal jugular catheter tip remains projected over the innominat e vein. Gastric tube in the stomach. Persisting consolidation in the left lower lung and left suprahi lar region with loss of delineation of the medial left hemidiaphragm and persistent patchy infiltrate s in the right lung base. CONCLUSION: 1. ET tube in good position. 2. Persistent and stable infiltrates, left greater than right. Electronically signed by: Clinton Gamble MD 06/14/2018 3:46 AM EDT
[2018-06-14] MEDS: Sodium Chlor 0.9% Inj 100 ML IV.SIG SCH ×7 (05:48→22:29)
[2018-06-14] MEDS: fentaNYL 10 mcg/mL Premix Drip 2,500 MCG/250 ML BAG IV.SIG PRN ×2 (05:49→20:56)
[2018-06-14] MEDS: Propofol 1000 mg/100 ml Inj 1,000 MG/100 ML BOTTLE IV.CONT PRN ×3 (05:51→22:34)
[2018-06-14 06:03] LABS: Hematocrit 24.9 % (39.0-51.0); Hemoglobin 8.6 gm/dL (13.0-17.0); Mean Corpuscular HGB Conc 34.5 % (32.0-36.0); Mean Corpuscular Hemoglobin 30.3 pg (27.0-34.0); Mean Corpuscular Volume 87.9 fL (80.0-100.0); Mean Platelet Volume 7.6 fL (7.0-11.0); Platelet Count 195 th/mm3 (150-450); Red Blood Count 2.83 mil/mm3 (4.50-5.90); Red Cell Distribution Width 15.8 % (11.6-17.2); White Blood Count 5.3 th/mm3 (4.0-11.0)
[2018-06-14 06:30] LABS: Albumin 3.1 g/dL (3.4-5.0); Anion Gap 18 meq/L (5-15); Aspartate Aminotransferase 20 U/L (15-37); Blood Urea Nitrogen 64 mg/dL (7-18); Carbon Dioxide 21.1 meq/L (21.0-32.0); Chloride 90 meq/L (98-107); Glomerular Filtration Rate 8 mL/min (>89); Glucose,Random 176 mg/dL (74-106); Magnesium 2.2 mg/dL (1.5-2.5); Potassium 4.5 meq/L (3.5-5.1); Sodium 129 meq/L (136-145)
[2018-06-14 06:33] LABS: Alanine Aminotransferase 14 U/L (12-78); Alkaline Phosphatase 91 U/L (45-117); Total Protein 8.9 g/dL (6.4-8.2)
[2018-06-14] MEDS: Vasopressin Inj 40 UNIT in Dextrose 5% in Water Inj 98 ML IV.CONT PRN ×2 (08:18)
[2018-06-14] MEDS: Hypromellose 0.3% Opth Gel 10 GM Bottle EACH EYE SCH ×2 (08:21→20:58)
[2018-06-14] MEDS: Senna/Docusate Sodium 8.6/50 MG Tablet PO SCH ×2 (09:08→21:04)
[2018-06-14] MEDS: Mupirocin 2% Nasal Oint Topical Syringe EACH NARE SCH ×2 (09:08→20:56)
[2018-06-14] MEDS: Calcium Acetate 667 MG Capsule PO SCH ×3 (09:08→17:11)
[2018-06-14] MEDS: Beneprotein Powder Packet G-TUBE SCH ×3 (09:16→17:11)
[2018-06-14] MEDS: Pantoprazole Inj 40 MG Vial IV.PUSH SCH ×2 (10:46→22:34)
--- NOTE | 2018-06-14 12:36 | P.PNNP ---
Subjective Interval history: On ventilator Physical Exam Vital signs: Vital Signs 06/13/18 13:00 06/13/18 13:01 06/13/18 13:07 Temperature 97.2 F L Pulse Rate 65 65 63 Respiratory Rate 11 L 14 9 L Blood Pressure 110/60 102/56 L Pulse Oximetry 91 L 91 L 93 L 06/13/18 13:30 06/13/18 14:00 06/13/18 14:30 Temperature 97.5 F L Pulse Rate 63 66 63 Respiratory Rate 9 L 17 9 L Blood Pressure 122/62 126/71 114/66 Pulse Oximetry 93 L 91 L 94 L 06/13/18 15:00 06/13/18 15:22 06/13/18 15:30 Temperature Pulse Rate 65 65 Respiratory Rate 9 L 9 L 10 L Blood Pressure 116/65 115/69 Pulse Oximetry 95 95 94 L 06/13/18 16:00 06/13/18 16:30 06/13/18 17:00 Temperature 97 F L Pulse Rate 70 67 70 Respiratory Rate 15 14 16 Blood Pressure 121/69 113/63 114/60 Pulse Oximetry 94 L 96 95 06/13/18 17:31 06/13/18 18:00 06/13/18 18:09 Temperature Pulse Rate 74 67 74 Respiratory Rate 17 16 17 Blood Pressure 127/68 113/59 L 118/58 L Pulse Oximetry 91 L 96 06/13/18 18:15 06/13/18 18:30 06/13/18 18:45 Temperature Pulse Rate 71 63 65 Respiratory Rate 13 16 17 Blood Pressure 105/61 85/50 L 85/55 L Pulse Oximetry 06/13/18 19:00 06/13/18 19:15 06/13/18 19:18 Temperature Pulse Rate 63 63 62 Respiratory Rate 16 16 16 Blood Pressure 84/52 L 86/51 L 79/47 L Pulse Oximetry 92 L 100 06/13/18 19:30 06/13/18 19:45 06/13/18 20:00 Temperature 97.2 F L Pulse Rate 60 60 60 Respiratory Rate 16 14 16 Blood Pressure 89/54 L 92/59 L 92/54 L Pulse Oximetry 96 88 L 95 06/13/18 20:16 06/13/18 20:30 06/13/18 20:45 Temperature Pulse Rate 61 61 61 Respiratory Rate 16 16 16 Blood Pressure 98/54 L 102/59 L 92/57 L Pulse Oximetry 92 L 91 L 90 L 06/13/18 21:00 06/13/18 21:16 06/13/18 21:30 Temperature Pulse Rate 62 61 61 Respiratory Rate 16 16 16 Blood Pressure 93/67 L 91/53 L 102/56 L Pulse Oximetry 94 L 98 97 06/13/18 21:45 06/13/18 22:00 06/13/18 22:15 Temperature Pulse Rate 61 61 61 Respiratory Rate 16 15 13 Blood Pressure 99/57 L 94/53 L 86/55 L Pulse Oximetry 98 98 94 L 06/13/18 22:30 06/13/18 22:45 06/13/18 23:00 Temperature Pulse Rate 62 62 63 Respiratory Rate 13 16 17 Blood Pressure 88/53 L 92/53 L Pulse Oximetry 94 L 93 L 93 L 06/13/18 23:01 06/13/18 23:16 06/13/18 23:31 Temperature Pulse Rate 65 63 62 Respiratory Rate 15 15 16 Blood Pressure 111/64 115/99 H 103/59 L Pulse Oximetry 92 L 94 L 94 L 06/13/18 23:45 06/13/18 23:58 06/14/18 00:00 Temperature 97.9 F Pulse Rate 63 62 Respiratory Rate 17 17 16 Blood Pressure 95/68 L 93/52 L Pulse Oximetry 95 95 95 06/14/18 00:03 06/14/18 00:16 06/14/18 00:30 Temperature Pulse Rate 62 63 73 Respiratory Rate 16 16 16 Blood Pressure 93/52 L 102/56 L 90/55 L Pulse Oximetry 95 94 L 95 06/14/18 00:45 06/14/18 01:00 06/14/18 01:01 Temperature Pulse Rate 67 63 64 Respiratory Rate 16 16 16 Blood Pressure 82/48 L 102/59 L Pulse Oximetry 96 94 L 94 L 06/14/18 01:15 06/14/18 01:30 06/14/18 01:46 Temperature Pulse Rate 63 63 70 Respiratory Rate 24 16 23 Blood Pressure 103/57 L 106/58 L 101/63 Pulse Oximetry 94 L 94 L 94 L 06/14/18 02:00 06/14/18 02:15 06/14/18 02:30 Temperature Pulse Rate 71 65 66 Respiratory Rate 17 18 16 Blood Pressure 103/59 L 100/57 L 95/54 L Pulse Oximetry 95 95 96 06/14/18 02:45 06/14/18 03:00 06/14/18 03:15 Temperature Pulse Rate 66 67 66 Respiratory Rate 16 16 16 Blood Pressure 97/55 L 100/56 L 96/53 L Pulse Oximetry 96 94 L 95 06/14/18 03:30 06/14/18 03:45 06/14/18 04:00 Temperature 97.8 F Pulse Rate 66 66 64 Respiratory Rate 17 16 16 Blood Pressure 93/55 L 93/54 L 93/54 L Pulse Oximetry 100 100 100 06/14/18 04:15 06/14/18 04:18 06/14/18 04:30 Temperature Pulse Rate 65 65 Respiratory Rate 16 17 16 Blood Pressure 91/50 L 96/54 L Pulse Oximetry 100 100 100 06/14/18 04:46 06/14/18 05:00 06/14/18 05:01 Temperature Pulse Rate 74 77 80 Respiratory Rate 13 17 15 Blood Pressure 100/51 L 120/59 L Pulse Oximetry 98 97 97 06/14/18 05:15 06/14/18 05:30 06/14/18 05:46 Temperature Pulse Rate 67 69 72 Respiratory Rate 17 16 16 Blood Pressure 103/58 L 95/50 L 139/61 Pulse Oximetry 98 96 98 06/14/18 06:00 06/14/18 06:01 06/14/18 06:16 Temperature Pulse Rate 66 68 70 Respiratory Rate 15 9 L 12 Blood Pressure 98/54 L 100/56 L Pulse Oximetry 98 97 96 06/14/18 06:31 06/14/18 06:45 06/14/18 07:01 Temperature Pulse Rate 74 69 75 Respiratory Rate 18 11 L 13 Blood Pressure 101/59 L 84/51 L 106/57 L Pulse Oximetry 96 96 96 06/14/18 07:16 06/14/18 07:30 06/14/18 07:46 Temperature Pulse Rate 72 68 68 Respiratory Rate 18 14 15 Blood Pressure 117/59 L 101/57 L 103/54 L Pulse Oximetry 96 96 96 06/14/18 08:00 06/14/18 08:01 06/14/18 08:15 Temperature Pulse Rate 87 78 70 Respiratory Rate 20 20 16 Blood Pressure 110/66 110/66 118/57 L Pulse Oximetry 95 92 L 97 06/14/18 08:31 06/14/18 08:39 06/14/18 08:46 Temperature Pulse Rate 73 88 Respiratory Rate 16 24 22 Blood Pressure 108/67 146/67 H Pulse Oximetry 96 92 L 94 L 06/14/18 09:00 06/14/18 09:16 06/14/18 09:31 Temperature Pulse Rate 78 96 H 94 H Respiratory Rate 13 34 H 29 H Blood Pressure 114/57 L 138/66 157/64 H Pulse Oximetry 84 L 06/14/18 09:45 06/14/18 10:00 06/14/18 10:16 Temperature Pulse Rate 88 91 H 94 H Respiratory Rate 22 25 H 33 H Blood Pressure 131/64 140/67 139/65 Pulse Oximetry 06/14/18 10:31 06/14/18 11:01 06/14/18 12:00 Temperature Pulse Rate 97 H 84 Respiratory Rate 21 14 25 H Blood Pressure 143/68 H 104/55 L Pulse Oximetry 92 L Intake & Output 06/13/18 06/14/18 06/14/18 18:59 06:59 18:59 Intake Total 810 / 810 759 / 759 100 / 100 Output Total 210 / 210 270 / 270 Balance 600 / 600 489 / 489 100 / 100 Weight 142.9 kg Intake: IV 800 / 800 550 / 550 100 / 100 Diprivan 1000 mg/100 ml Inj 1, 200 / 200 200 / 200 000 mg In 100 ml @ 5 MCG/KG/MIN 3.87 mls/hr IV.CONT TITRATE PRN Rx#:[id number] Pitressin Inj 40 UNIT In D5W 100 / 100 100 / 100 Inj 98 ML @ 0.01 UNITS/MIN 1.5 mls/hr IV.CONT TITRATE PRN Rx#: [id number] Diflucan 200 mg Premix Bag 100 0 / 0 100 / 100 ML @ 100 mls/hr IV.SIG Q24H TRACIE Rx#:[id number] Levophed-Dextrose 4 mg/250 ml 250 / 250 Drip 4 mg In 250 ml @ 2 MCG/MIN 7.5 mls/hr IV.SIG TITRATE PRN Rx#:[id number] fentaNYL 10 mcg/mL Premix Drip 250 / 250 250 / 250 2,500 mcg In 250 ml @ 50 MCG/HR 5 mls/hr IV.SIG TITRATE PRN Rx #:[id number] Tube Feeding 69 / 69 Tube Irrigant 140 / 140 Other Rbc As-3 Leukoreduced Unit [id number] Intake (Blood Product) Amt 0 Rbc As-3 Leukoreduced Unit 0 / 0 [id number] Rbc As-3 Leukoreduced Unit 0 / 0 [id number] Output: Stool 200 / 200 240 / 240 Chest Tube Drainage #2 Left Lower Mid-Axillary Chest Other: Date of Last Bowel Movement 06/13/18 06/14/18 06/14/18 - Constitutional no acute distress - Routine Neck Exam Present: supple - Routine Respiratory Exam Present: decreased breath sounds - Routine Cardiovascular Exam Present: S1, S2 - Routine Abdominal Exam Present: soft, normoactive bowel sounds - Routine Extremities Exam Present: edema - Urinary Catheter Management Suprapubic Cath placed during this visit: no Assessment and Plan - Assessment (1) End stage renal disease on dialysis Code(s): N18.6 - End stage renal disease; Z99.2 - Dependence on renal dialysis Status: Acute (2) Acute hypoxemic respiratory failure Code(s): J96.01 - Acute respiratory failure with hypoxia Status: Deleted (3) Arteriovenous graft infection Code(s): T82.7XXA - Infection and inflammatory reaction due to other cardiac and vascular devices, implants and grafts, initial encounter Status: Deleted (4) Atrial fibrillation with RVR Code(s): I48.91 - Unspecified atrial fibrillation Status: Deleted (5) Hemodialysis access, AV graft Code(s): Z99.2 - Dependence on renal dialysis Status: Acute - Plan Patient has sepsis and undergoing treatment with IV vancomycin He is scheduled to do dialysis, Friday and Friday done Friday 3.5 L of ultrafiltration Getting packed red blood cells for low hemoglobin remains critically HD MWF Apparent HeRO infection and MRSA: Removal of previous left IJ port, s/p partial removal for right arm graft and HeRO outflow component. Ongoing hypotension - follow with ID and Vascular Continue on Friday and Friday schedule --
--- NOTE | 2018-06-14 13:04 | P.PNCC ---
Subjective Subjective Remarks/Hospital Course: Mr. Laguerre is a 73-year-old -[place] male with past medical history significant for end-stage renal disease on hemodialysis, hypertension, complicated vascular access, HeRO graft placement by Dr. Umana on 09/23/2017, revision and PTFE replacement 12/25/17. who presented to the [facility] with probable sepsis and shock. Dr. Umana was contacted and patient was accepted for transfer to CVICU in [facility]. I immediately evaluated the patient on arrival to CVICU. Patient is currently on BiPAP (transported on BiPAP) severely encephalopathic hardly wakes up to sternal rub, with a rapid shallow breathing. BiPAP settings 18/8, 60% FiO2. He is literally unresponsive and not protecting airway. Currently he is on Levophed at 20 mcg/min with a map 65-70. He is also on amiodarone for atrial fibrillation with RVR. Because of lack of airway protection, severe encephalopathy, septic shock and hypoxia I proceeded with endotracheal intubation. His glottic opening was completely occluded with thick secretions, several minutes of suctioning needed to clear the secretions prior to intubation. Postintubation Levophed had to be increased to 30 mcg/min, I also placed an arterial line. All cultures, routine labs and lactic acid pending at this time. I have started him on vancomycin and Zosyn. Discussed case with Dr. Umana extensively Patient was unable to provide any history, according to the RN who got report patient apparently had GI bleed, underwent EGD with cauterization of duodenal ulcer few days ago. Will avoid heparin for DVT prophylaxis. His postintubation ABG showed severe hypoxia with significant AA gradient, metabolic acidosis, and a hemoglobin of 7.6. Currently Levophed is increased to 30 mcg/min, I will transfuse 1 unit PRBC. Chest x-ray shows pulmonary edema will arrange for hemodialysis once his shock is improves. At this time he will not be able to tolerate either hemodialysis or even CVVH 05/28: initially evaluated around 6:30am. patient in refractory septic shock. added epinephrine to levophed and vasopressin. discussed with Dr. Umana. obtained u/s of the right upper extremity which demonstrated fluid collection surrounding the HeRO graft which was heterogenous in nature. added single dose of Amikacin to vanc/zosyn regimen to cover ESBL organisms. patient remains in shock. per verbal report from OSH, blood cultures growing MRSA. taken to OR urgently and large amount of purulent drainage debrided from around catheter. HeRO catheter removed. returns from OR persistently unstable. acidosis worsening. bicarb given. discussed with nephrology and will need CRRT. 05/29: s/p emergent debridement and removal of HeRO graft. today vasopressor doses are somewhat lower, although remains on levo,vaso,epi. lactate cleared. s/ p IHD today with 3L removal. blood growing MRSA. sputum growing e.coli, providencia, MRSA. wbc remains elevated. 05/30: off vasopressors. getting IHD again today. hgb 7 and receiving 1 unit prbc during dialysis. encephalopathy persists, not following commands. 05/31: clinically continues to improve. not following commands, very slow to arouse. bradycardic this AM, but tolerating hemodynamically. HD yesterday with volume removal. 06/01: Clinically improved off all pressors. Sedated with propofol and fentanyl , opens eyes moves extremities not following commands. Plan for hemodialysis today. Initiate CPAP trial after hemodialysis. Persistently bacteremic with MRSA, repeat cultures in 24 hours 06/02: Remains in septic shock, though pressor requirement has improved. Hypotensive bradycardic while getting HD yesterday, started on Dopamine, now at 3 mcg/kg/min. Pus being expressed from upper part of right upper chest [id number] (HeRO AVG removal site). Hypothermic. Some pus around the suprapubic catheter 06/03: Patient had been weaned off all pressors now. Not requiring dopamine for the last 18 hours. However WBC count 13 K today. Persistent bacteremia with MRSA. Source could be right upper extremity graft remnant versus infected invasive catheters. After hemodialysis removal HD catheter, also remove left IJ central line. Repeat blood cultures in 24 hours. Antibiotics broadened by ID yesterday 06/04: Showing some clinical signs of improvement. Not requiring pressors hypothermia has resolved. CBC still pending patient is more awake following commands tolerating CPAP now. Left IJ central line and right femoral Vas-Cath was removed yesterday. Plan for next dialysis is tomorrow will place new Vas- Cath tomorrow a.m. to give 'line holiday'. 06/05: Back on norepinephrine at 10 mics per minute. Blood blood pressure variable, intermittently hypotensive. New Vas-Cath placed in groin functional. Most recent cultures continued to grow gram-positive cocci. Alert when propofol is lightened 06/06: Afebrile. Remains on norepinephrine drip at 7 mcg/min. Arousable on the ventilator on sedation vacation. Commands. -3 L with hemodialysis yesterday. Repeat blood cultures done the same. Right upper extremity ultrasound pending.. 06/07: remains on vasopressors. cxr today with new left pleural effusion which is quite large: confirmed on bedside lung ultrasound. pigtail chest tube placed with > 1L old hemothorax. hgb slightly lower, but hemodynamically stable. discussed with nephrology and vascular surgery and most ideal plan would be to transfuse prbc tomorrow with HD. 06/08: Remains intubated sedated with propofol. Currently on 8 mcg/min of Levophed but map is above 75. Getting 2 units of PRBC with dialysis for hemoglobin of 6.9. Left pigtail chest tube drained almost 2 L old blood appearing. I will request fluid studies from any residual drainage. CT of the chest to evaluate for any residual fluid. 06/09: Intubated sedated, wakes up and follows commands. On Levophed at 1 mcg/ min. CT of the chest shows small left pleural effusion bibasilar consolidation , multiple bilateral pulmonary nodules some cavitation indicating septic emboli most likely from staff. Blood cultures from 06/05/18 and 06/06/18 negative to date 06/10: Remains intubated slightly sedated follows commands. Levophed requirement has slightly increased overnight currently on 5 mcg/min. We will recheck blood cultures. Getting hemodialysis today. Chest x-ray shows severe left-sided airspace disease. Check ultrasound of the chest post dialysis. Left pigtail chest tube output 60 ml in last 24 hours 06/11 Patient is sedated with Diprivan and Fentanyl infusion, on Levophed 11 mics. Afebrile. Left pigtail catheter had 50 ml output and a second large bore CT was placed yesterday had approx 100ml overnight. 06/12 Patient remains intubated tolerated CPAP for several hrs yesterday remains on Levophed 10 mics and Vasopressin 0.04. Afebrile. Left pigtail catheter was dislodged yesterday, 28Fr CT had 50ml output overnight. Tolerating tube feeds. 06/13: Remains critical Levophed requirement has decreased to 5 mcg/min same dose of vasopressin 0.04. However hemoglobin has dropped to 6.7, 2 units of PRBC ordered stat. Chest tube output approximately 200 mL serosanguineous. I do not believe this is the source of his anemia. Previous history of GI bleed will consult GI. Remains encephalopathic and lethargic I do not think he can be successfully be weaned off the ventilator without a tracheostomy. General surgery consulted per Dr. Umana's request for OR tracheostomy Subjective 06/14: Remains on ventilator no acute distress. Currently on vasopressin 0.04. Norepinephrine has been held. Remains hyponatremic and hyperphosphatemia. Objective Vital Signs / I&O: Vital Signs 06/13/18 13:07 06/13/18 13:30 06/13/18 14:00 Temperature 97.2 F L 97.5 F L Pulse Rate 63 63 66 Respiratory Rate 9 L 9 L 17 Blood Pressure 102/56 L 122/62 126/71 Pulse Oximetry 93 L 93 L 91 L 06/13/18 14:30 06/13/18 15:00 06/13/18 15:22 Temperature Pulse Rate 63 65 Respiratory Rate 9 L 9 L 9 L Blood Pressure 114/66 116/65 Pulse Oximetry 94 L 95 95 06/13/18 15:30 06/13/18 16:00 06/13/18 16:30 Temperature 97 F L Pulse Rate 65 70 67 Respiratory Rate 10 L 15 14 Blood Pressure 115/69 121/69 113/63 Pulse Oximetry 94 L 94 L 96 06/13/18 17:00 06/13/18 17:31 06/13/18 18:00 Temperature Pulse Rate 70 74 67 Respiratory Rate 16 17 16 Blood Pressure 114/60 127/68 113/59 L Pulse Oximetry 95 91 L 96 06/13/18 18:09 06/13/18 18:15 06/13/18 18:30 Temperature Pulse Rate 74 71 63 Respiratory Rate 17 13 16 Blood Pressure 118/58 L 105/61 85/50 L Pulse Oximetry 06/13/18 18:45 06/13/18 19:00 06/13/18 19:15 Temperature Pulse Rate 65 63 63 Respiratory Rate 17 16 16 Blood Pressure 85/55 L 84/52 L 86/51 L Pulse Oximetry 92 L 06/13/18 19:18 06/13/18 19:30 06/13/18 19:45 Temperature Pulse Rate 62 60 60 Respiratory Rate 16 16 14 Blood Pressure 79/47 L 89/54 L 92/59 L Pulse Oximetry 100 96 88 L 06/13/18 20:00 06/13/18 20:16 06/13/18 20:30 Temperature 97.2 F L Pulse Rate 60 61 61 Respiratory Rate 16 16 16 Blood Pressure 92/54 L 98/54 L 102/59 L Pulse Oximetry 95 92 L 91 L 06/13/18 20:45 06/13/18 21:00 06/13/18 21:16 Temperature Pulse Rate 61 62 61 Respiratory Rate 16 16 16 Blood Pressure 92/57 L 93/67 L 91/53 L Pulse Oximetry 90 L 94 L 98 06/13/18 21:30 06/13/18 21:45 06/13/18 22:00 Temperature Pulse Rate 61 61 61 Respiratory Rate 16 16 15 Blood Pressure 102/56 L 99/57 L 94/53 L Pulse Oximetry 97 98 98 06/13/18 22:15 06/13/18 22:30 06/13/18 22:45 Temperature Pulse Rate 61 62 62 Respiratory Rate 13 13 16 Blood Pressure 86/55 L 88/53 L 92/53 L Pulse Oximetry 94 L 94 L 93 L 06/13/18 23:00 06/13/18 23:01 06/13/18 23:16 Temperature Pulse Rate 63 65 63 Respiratory Rate 17 15 15 Blood Pressure 111/64 115/99 H Pulse Oximetry 93 L 92 L 94 L 06/13/18 23:31 06/13/18 23:45 06/13/18 23:58 Temperature Pulse Rate 62 63 Respiratory Rate 16 17 17 Blood Pressure 103/59 L 95/68 L Pulse Oximetry 94 L 95 95 06/14/18 00:00 06/14/18 00:03 06/14/18 00:16 Temperature 97.9 F Pulse Rate 62 62 63 Respiratory Rate 16 16 16 Blood Pressure 93/52 L 93/52 L 102/56 L Pulse Oximetry 95 95 94 L 06/14/18 00:30 06/14/18 00:45 06/14/18 01:00 Temperature Pulse Rate 73 67 63 Respiratory Rate 16 16 16 Blood Pressure 90/55 L 82/48 L Pulse Oximetry 95 96 94 L 06/14/18 01:01 06/14/18 01:15 06/14/18 01:30 Temperature Pulse Rate 64 63 63 Respiratory Rate 16 24 16 Blood Pressure 102/59 L 103/57 L 106/58 L Pulse Oximetry 94 L 94 L 94 L 06/14/18 01:46 06/14/18 02:00 06/14/18 02:15 Temperature Pulse Rate 70 71 65 Respiratory Rate 23 17 18 Blood Pressure 101/63 103/59 L 100/57 L Pulse Oximetry 94 L 95 95 06/14/18 02:30 06/14/18 02:45 06/14/18 03:00 Temperature Pulse Rate 66 66 67 Respiratory Rate 16 16 16 Blood Pressure 95/54 L 97/55 L 100/56 L Pulse Oximetry 96 96 94 L 06/14/18 03:15 06/14/18 03:30 06/14/18 03:45 Temperature Pulse Rate 66 66 66 Respiratory Rate 16 17 16 Blood Pressure 96/53 L 93/55 L 93/54 L Pulse Oximetry 95 100 100 06/14/18 04:00 06/14/18 04:15 06/14/18 04:18 Temperature 97.8 F Pulse Rate 64 65 Respiratory Rate 16 16 17 Blood Pressure 93/54 L 91/50 L Pulse Oximetry 100 100 100 06/14/18 04:30 06/14/18 04:46 06/14/18 05:00 Temperature Pulse Rate 65 74 77 Respiratory Rate 16 13 17 Blood Pressure 96/54 L 100/51 L Pulse Oximetry 100 98 97 06/14/18 05:01 06/14/18 05:15 06/14/18 05:30 Temperature Pulse Rate 80 67 69 Respiratory Rate 15 17 16 Blood Pressure 120/59 L 103/58 L 95/50 L Pulse Oximetry 97 98 96 06/14/18 05:46 06/14/18 06:00 06/14/18 06:01 Temperature Pulse Rate 72 66 68 Respiratory Rate 16 15 9 L Blood Pressure 139/61 98/54 L Pulse Oximetry 98 98 97 06/14/18 06:16 06/14/18 06:31 06/14/18 06:45 Temperature Pulse Rate 70 74 69 Respiratory Rate 12 18 11 L Blood Pressure 100/56 L 101/59 L 84/51 L Pulse Oximetry 96 96 96 06/14/18 07:01 06/14/18 07:16 06/14/18 07:30 Temperature Pulse Rate 75 72 68 Respiratory Rate 13 18 14 Blood Pressure 106/57 L 117/59 L 101/57 L Pulse Oximetry 96 96 96 06/14/18 07:46 06/14/18 08:00 06/14/18 08:01 Temperature Pulse Rate 68 87 78 Respiratory Rate 15 20 20 Blood Pressure 103/54 L 110/66 110/66 Pulse Oximetry 96 95 92 L 06/14/18 08:15 06/14/18 08:31 06/14/18 08:39 Temperature Pulse Rate 70 73 Respiratory Rate 16 16 24 Blood Pressure 118/57 L 108/67 Pulse Oximetry 97 96 92 L 06/14/18 08:46 06/14/18 09:00 06/14/18 09:16 Temperature Pulse Rate 88 78 96 H Respiratory Rate 22 13 34 H Blood Pressure 146/67 H 114/57 L 138/66 Pulse Oximetry 94 L 84 L 06/14/18 09:31 06/14/18 09:45 06/14/18 10:00 Temperature Pulse Rate 94 H 88 91 H Respiratory Rate 29 H 22 25 H Blood Pressure 157/64 H 131/64 140/67 Pulse Oximetry 06/14/18 10:16 06/14/18 10:31 06/14/18 11:01 Temperature Pulse Rate 94 H 97 H Respiratory Rate 33 H 21 14 Blood Pressure 139/65 143/68 H Pulse Oximetry 92 L 06/14/18 12:00 Temperature Pulse Rate 84 Respiratory Rate 25 H Blood Pressure 104/55 L Pulse Oximetry Intake & Output 06/13/18 06/14/18 06/14/18 18:59 06:59 18:59 Intake Total 810 / 810 759 / 759 100 / 100 Output Total 210 / 210 270 / 270 Balance 600 / 600 489 / 489 100 / 100 Weight 142.9 kg Intake: IV 800 / 800 550 / 550 100 / 100 Diprivan 1000 mg/100 ml Inj 1, 200 / 200 200 / 200 000 mg In 100 ml @ 5 MCG/KG/MIN 3.87 mls/hr IV.CONT TITRATE PRN Rx#:[id number] Pitressin Inj 40 UNIT In D5W 100 / 100 100 / 100 Inj 98 ML @ 0.01 UNITS/MIN 1.5 mls/hr IV.CONT TITRATE PRN Rx#: [id number] Diflucan 200 mg Premix Bag 100 0 / 0 100 / 100 ML @ 100 mls/hr IV.SIG Q24H TRACIE Rx#:[id number] Levophed-Dextrose 4 mg/250 ml 250 / 250 Drip 4 mg In 250 ml @ 2 MCG/MIN 7.5 mls/hr IV.SIG TITRATE PRN Rx#:[id number] fentaNYL 10 mcg/mL Premix Drip 250 / 250 250 / 250 2,500 mcg In 250 ml @ 50 MCG/HR 5 mls/hr IV.SIG TITRATE PRN Rx #:[id number] Tube Feeding / Tube Irrigant 140 / 140 Other Rbc As-3 Leukoreduced Unit [id number] Intake (Blood Product) Amt 0 / 0 Rbc As-3 Leukoreduced Unit 0 / 0 [id number] Rbc As-3 Leukoreduced Unit 0 / 0 [id number] Output: Stool 200 / 200 240 / 240 Chest Tube Drainage #2 Left Lower Mid-Axillary Chest Other: Date of Last Bowel Movement 06/13/18 06/14/18 06/14/18 Result Diagrams: 06/14/18 05:00 06/14/18 05:00 Other Results: Microbiology 06/10/18 16:27 Blood - Peripheral Aerobic Blood Culture - Preliminary No growth in 4 days 06/10/18 16:27 Blood - Peripheral Anaerobic Blood Culture - Preliminary No growth in 4 days 06/10/18 16:32 Blood - Peripheral Aerobic Blood Culture - Preliminary No growth in 4 days 06/10/18 16:32 Blood - Peripheral Anaerobic Blood Culture - Preliminary No growth in 4 days 06/10/18 13:50 Fluid - Pleural fluid Gram Stain - Final 06/10/18 13:50 Fluid - Pleural fluid Body Fluid Culture - Final No growth in 72 hours (aerobically and anaerobically ) 06/10/18 20:45 Sputum - Endotracheal Gram Stain - Final 06/10/18 20:45 Sputum - Endotracheal Sputum Culture - Final Rare growth normal respiratory bertin 05/28/18 14:40 Wound - Arm Fungal Smear - Final No fungal elements seen 05/28/18 14:40 Wound - Arm Fungal Culture - Preliminary No growth in 2 weeks 05/28/18 14:40 Wound - Arm Acid Fast Bacilli Smear - Final No acid fast bacilli seen 05/28/18 14:40 Wound - Arm Mycobacterial Culture - Preliminary No growth in 2 weeks 05/28/18 14:40 Other Fungal Smear - Final No fungal elements seen 05/28/18 14:40 Other Fungal Culture - Preliminary No growth in 2 weeks 05/28/18 14:40 Other Acid Fast Bacilli Smear - Final No acid fast bacilli seen 05/28/18 14:40 Other Mycobacterial Culture - Preliminary No growth in 2 weeks 06/06/18 05:20 Blood - Peripheral Aerobic Blood Culture - Final No growth in 5 days 06/06/18 05:20 Blood - Peripheral Anaerobic Blood Culture - Final No growth in 5 days 06/06/18 05:40 Blood - Peripheral Aerobic Blood Culture - Final No growth in 5 days 06/06/18 05:40 Blood - Peripheral Anaerobic Blood Culture - Final No growth in 5 days 06/05/18 06:10 Blood - Peripheral Aerobic Blood Culture - Final No growth in 5 days 06/05/18 06:10 Blood - Peripheral Anaerobic Blood Culture - Final No growth in 5 days 06/05/18 06:19 Blood - Peripheral Aerobic Blood Culture - Final No growth in 5 days 06/05/18 06:19 Blood - Peripheral Anaerobic Blood Culture - Final No growth in 5 days 06/04/18 08:25 Blood - Peripheral Aerobic Blood Culture - Final S. aureus MRSA 06/04/18 08:25 Blood - Peripheral Anaerobic Blood Culture - Final No growth in 5 days 06/04/18 08:20 Blood - Peripheral Aerobic Blood Culture - Final No growth in 5 days 06/04/18 08:20 Blood - Peripheral Anaerobic Blood Culture - Final No growth in 5 days 06/05/18 16:00 Wound - Incision Gram Stain - Final 06/05/18 16:00 Wound - Incision Wound Culture - Final S. aureus MRSA 06/01/18 14:23 Blood - Peripheral Aerobic Blood Culture - Final S. aureus MRSA 06/01/18 14:23 Blood - Peripheral Anaerobic Blood Culture - Final No growth in 5 days 06/01/18 14:29 Blood - Peripheral Aerobic Blood Culture - Final S. aureus MRSA 06/01/18 14:29 Blood - Peripheral Anaerobic Blood Culture - Final No growth in 5 days 05/30/18 14:45 Blood - Peripheral Aerobic Blood Culture - Final S. aureus MRSA 05/30/18 14:45 Blood - Peripheral Anaerobic Blood Culture - Final No growth in 5 days 05/30/18 14:35 Blood - Peripheral Aerobic Blood Culture - Final S. aureus MRSA 05/30/18 14:35 Blood - Peripheral Anaerobic Blood Culture - Final No growth in 5 days 06/02/18 09:00 Wound - Incision Gram Stain - Final 06/02/18 09:00 Wound - Incision Wound Culture - Final Arlet albicans 06/01/18 17:06 Sputum - Endotracheal Gram Stain - Final 06/01/18 17:06 Sputum - Endotracheal Sputum Culture - Final S. aureus MRSA 05/28/18 00:48 Blood - Peripheral Aerobic Blood Culture - Final S. aureus MRSA 05/28/18 00:48 Blood - Peripheral Anaerobic Blood Culture - Final No growth in 5 days 05/27/18 22:40 Blood - Peripheral Aerobic Blood Culture - Final S. aureus MRSA 05/27/18 22:40 Blood - Peripheral Anaerobic Blood Culture - Final No growth in 5 days 05/28/18 14:40 Tissue - Other Gram Stain - Final 05/28/18 14:40 Tissue - Other Wound Culture - Final S. aureus MRSA 05/28/18 14:40 Wound - Arm Gram Stain - Final 05/28/18 14:40 Wound - Arm Wound Culture - Final S. aureus MRSA 05/27/18 21:50 Sputum - Endotracheal Gram Stain - Final 05/27/18 21:50 Sputum - Endotracheal Sputum Culture - Final Escherichia coli Providencia stuartii S. aureus MRSA Imaging: Chest X-Ray 05/27/18 20:57 CONCLUSION: Intubation of the right main bronchus with ET tube tip extending into centimeters beyond the kimberley. Upper Extremity Ultrasound 05/28/18 00:00 CONCLUSION: 1. Right upper extremity AV (Hero) graft/catheter. 2. Small amount of nonocclusive thrombus in the proximal graft just beyond the radial artery anastomosis to the mid upper extremity level. 3. Complex perigraft fluid most prominently near the shoulder and chest wall measuring up to 3.5 x 1.8 cm. This most likely reflects perigraft hematoma although abscess cannot be excluded in the appropriate clinical setting. Chest X-Ray 05/28/18 05:00 CONCLUSION: Unchanged consolidation scattered throughout the left lung. Abdomen X-Ray 05/31/18 00:00 CONCLUSION: 1. Suction-type NGT in the stomach. Chest X-Ray 06/01/18 14:00 CONCLUSION: Bilateral pulmonary infiltrates which are worse on the right and stable on the left. Chest X-Ray 06/03/18 00:00 CONCLUSION: Improved aeration of both lungs with persistent consolidation and probable effusion on the left. Chest X-Ray 06/04/18 00:00 CONCLUSION: 1. The endotracheal tube appears to be in good position. 2. No evidence of pneumothorax. 3. Stable left-sided pleural effusion with some mild parenchymal changes in the left lung base. Chest X-Ray 06/04/18 06:00 CONCLUSION: No significant change. Upper Extremity Ultrasound 06/06/18 00:00 CONCLUSION: 1. Nonspecific complex fluid collection could be postprocedural change, however infectious process is not excluded. Chest X-Ray 06/07/18 00:00 CONCLUSION: Improvement in aeration left lung. Chest X-Ray 06/07/18 06:00 CONCLUSION: Worsening consolidation involving the left lung with suspected loculated left effusion. Chest X-Ray 06/08/18 05:00 CONCLUSION: Stable chest x-ray with left mid to lower lung zone airspace consolidation and small left pleural effusion. Left chest tube remains present and no pneumothorax is visualized. Chest X-Ray 06/08/18 11:35 CONCLUSION: Increasing airspace disease on the left. Central line as above. Chest CT 06/09/18 00:00 CONCLUSION: 1. Small left pleural effusion. Left chest tube is present and slightly more lateral and anterior to where the pleural fluid is located. 2. Multiple bilateral pulmonary nodules, some of which demonstrate cavitation. Although nonspecific the nodules could represent septic emboli or metastatic disease. 3. There is atelectasis versus airspace consolidation at both lung bases. Chest X-Ray 06/10/18 06:00 CONCLUSION: Severe diffuse airspace consolidation throughout the left lung without significant change from the most recent prior chest x-ray. Chest CT 06/10/18 12:01 CONCLUSION: 1. Bilateral parenchymal infiltrates are seen as well as bilateral moderate effusions left greater than right. 2. Pulmonary nodules are identified including cavitary lesions. Chest X-Ray 06/10/18 13:35 CONCLUSION: 1. Interval placement of a subpulmonic left-sided chest tube with small volume subcutaneous air. 2. Unchanged bilateral infiltrates. Chest X-Ray 06/11/18 06:00 CONCLUSION: Improved left lung airspace consolidation. There is residual bilateral airspace consolidation, left greater than right. Chest X-Ray 06/13/18 00:00 CONCLUSION: 1. Persistent left lower lung consolidation and patchy infiltrates in the left upper lung. 2. ET tube tip is above the level of the clavicles. Chest X-Ray 06/14/18 06:00 CONCLUSION: 1. ET tube in good position. 2. Persistent and stable infiltrates, left greater than right. Objective Remarks: GENERAL: 73-year-old -[place] male, lying in bed, intubated, on sedation with propofol and fentanyl HEENT: Normocephalic. Atraumatic. Pupils equal, round, reactive. Mild oozing of blood from corner of the mouth NECK: Trachea is midline. Orotracheally intubated. Left IJ CVL is clean dry and intact. Left CHEST: PRVC. equal chest rise. Air entry decreased predominantly in the left lung newman with few coarse rhonchi bilaterally. Good bilateral air movement CARDIOVASCULAR: Atrial fibrillation rate controlled. No murmurs. No JVD. Vasopressin ABDOMEN: Soft, nontender, nondistended. No guarding. Left femoral dialysis catheter is clean dry and intact MUSCULOSKELETAL: Right upper extremity s/p debridement upper incision W/D dressing. Pulses 2+. No peripheral edema. NEUROLOGICAL: Opens eyes spontaneously off sedation. Do not follow commands but moves extremities spontaneously. No focal deficits Assessment and Plan - Assessment and Plan Plan: NEURO/PSYCH: Toxic metabolic encephalopathy -Restarted on propofol currently at 15 mcg/kg/min and fentanyl drip at 150 mcg an hour due to patient biting on the tube, asynchronous with the vent -As needed hydromorphone 0.5 mg IV every 2 hours as needed added 06/11 -Acetaminophen 650 mg by tube every 6 hours as needed fever -Altered mentation secondary to toxic metabolic encephalopathy from sepsis and hypercapnia RESP: Acute hypoxemic and hypercarbic respiratory failure Multiple pulmonary nodules/septic emboli Pulmonary edema Left Hemothorax MRSA pneumonia HCAP with MRSA- present on admission General surgery consulted for tracheostomy-Dr. Umana requests OR trach -Continue abx. daily /SBT as narciso Ventilator bundle. Albuterol/ipratropium aerosols every 6 hours scheduled and albuterol aerosols every 2 hours as needed -MRSA pneumonia treatment below s/p 10 Fr pigtail chest tube, left, with >1L old dark blood. 06/07. Dislodged 06/11 s/p 28Fr CT placement 06/10 with 400ml removed on insertion, had 40ml output last 24 hours. Fluid studies consistent with hemothorax CXR : Improved left lung airspace consolidation. There is residual bilateral airspace consolidation, left greater than right. CT of the chest shows multiple pulmonary nodules with some cavitation indicating septic emboli CV: Septic shock Acute severe anion gap Metabolic acidosis- resolved Pulmonary edema-resolving Atrial fibrillation with RVR-currently rate controlled -On vasopressin 0.04 units/min keep MAP>65mmHg - A. fib rate is controlled and currently normal sinus rhythm, cannot anticoagulate due to history of recent GI bleed -Echo 06/12/2018 shows mild concentric left ventricular hypertrophy. The left ventricular systolic function is normal with an estimated ejection fraction in the range of 55-60%. There is trace tricuspid valve regurgitation. There is a small pericardial effusion present. GI/HEME/FEN: Recent GI bleed Acute normocytic anemia requiring transfusion Hyperphosphatemia Hyponatremia hypoalbuminemia -s/p Transfuse 2U PRBC with HD 06/10, additional 2 units today 06/13/18 -Consult to Gi placed -Nepro tube feeds at 45 cc an hour per nutrition recommendations with Beneprotein 1 packet 3 times daily -IV pantoprazole 40 mg IV q12 -Docusate sodium/senna 1 tablet twice daily for bowel regimen -Calcium acetate 667 mg 3 times daily for elevated phosphorus. /renal: End-stage renal disease on hemodialysis HeRO graft placed 09/2017, now removed due to graft infection - Nephrology: Dr. Davidson following - continue HD per nephrology, Monitor renal function, I/O's, avoid nephrotoxins ID: Septic shock HeRO graft infection s/p removal HCAP pneumonia- present on admission MRSA septic emboli to lung Persistent MRSA bacteremia -Persistent MRSA bacteremia could be secondary to infected remnant of the AV graft, versus secondary seeding of the catheters -Removed Vas-Cath, and left IJ central line 06/03/18 - 05/27, 05/28, 05/30, 06/01 and 06/04 blood cultures MRSA - 05/27 sputum cultures: Providencia, MRSA, e.coli - 06/02 wound with Arlet albicans - ID Dr. Morgan, abx management per ID - cont vancomycin: keep trough 15-20 cont rifampin - Continue fluconazole - will need minimum 6 weeks coverage for MRSA graft infection - Dr. Umana following ENDO: Type 2 diabetes Presumed Adrenal insufficiency -Sliding scale insulin with aspart insulin every 4 hours -Status post stress steroids PROPH: -Bilateral lower extremity SCDs. IV Protonix 40 mg every 12. Chemical prophylaxis contraindicated due to anemia requiring transfusion LINES: -Removed OSH left IJ central line and OSH right femoral Vas-Cath on 06/03/2018 -New left femoral Vas-Cath placement 06/04/18 -left radial arterial line 05/27-DC today -New LIJ central line 06/08/18 due to ongoing pressor requirement Level 2 follow-up
--- NOTE | 2018-06-14 13:56 | P.DIET ---
Nutritional Evaluation Type of nutrition evaluation: follow-up Nutrition consult regarding: Tube Feeding Nutrition [place] [facility] [place] - Diagnosis Sepsis, Graft Infection - Objective [place] body weight: 81 kg Body Weight Used for Calculations: IBW Energy Needs - Lower Range (kCal/kg): 24 Energy Needs - Upper Range (kCal/kg): 28 Lower Limit kCal/kg (kCals): 1,944 Upper Limit kCal/kg (kCals): 2,268 Lower Limit Protein Factor (Grams per Kg): 1.2 Upper Limit Protein Factor (Grams per Kg): 1.5 Lower Protein Needs (Protein): 97 Upper Protein Needs (Protein): 122 Dietitian Reviewed in Medical Record: Curent medications, Intake & Output, Labs , Medical history, Tube feeding Diet Order: TF only Wound Care Note: 06/14: R+L Buttock pressure injury (ongoing) Objective Comments: PMH: ESRD on HD, HTN, DM, DVT, Obesity Assessment Assessment: Pt at nutritional risk r/t need for a TF for nutrition support. Pt remains intubated and sedated on propofol and fentanyl. Noted MD assesses pt will probably need a tracheostomy to wean off vent. TF Nepro currently running at 10 ml/hr, noted nursing notes regarding residuals. To meet pt's nutritional needs, a goal rate of 45 ml/hr is necessary and Beneprotein 1 pkt TID is needed to meet pt's protein needs. The above will provide 2019kcals, 106gms protein and 785mls free water. Will continue to monitor TF, clinical course. Recommendations: TF Nepro with goal rate 45 ml/hr Beneprotein 1 pkt TID Dietitian to Monitor: Lab values, Intake & Output, Tube feeding tolerance, Weight change, Wound/skin status, Medical course
--- NOTE | 2018-06-14 14:43 | P.PNID ---
Subjective Remarks: afebrile On pressors, vasopressin On CpAP + diarrhea, c.diff neg 2/2 Last + blood clx from 06/04 Upper Extremity Ultrasound 06/06/18 00:00 showed Nonspecific complex fluid collection could be postprocedural change, however infectious process is not excluded. Culture from it + for MRSA Chest CT 06/10/18 12:01 showed Bilateral parenchymal infiltrates are seen as well as bilateral moderate effusions left greater than right and Pulmonary nodules are identified including cavitary lesions. Antibiotics: vanco fluconazole rifampin Allergies/Adverse Reactions: Allergies No Known Allergies Allergy (Unknown, Uncoded 12/24/17 14:57) Objective Vital Signs 06/13/18 15:00 06/13/18 15:22 06/13/18 15:30 Temperature Pulse Rate 65 65 Respiratory Rate 9 L 9 L 10 L Blood Pressure 116/65 115/69 Pulse Oximetry 95 95 94 L 06/13/18 16:00 06/13/18 16:30 06/13/18 17:00 Temperature 97 F L Pulse Rate 70 67 70 Respiratory Rate 15 14 16 Blood Pressure 121/69 113/63 114/60 Pulse Oximetry 94 L 96 95 06/13/18 17:31 06/13/18 18:00 06/13/18 18:09 Temperature Pulse Rate 74 67 74 Respiratory Rate 17 16 17 Blood Pressure 127/68 113/59 L 118/58 L Pulse Oximetry 91 L 96 06/13/18 18:15 06/13/18 18:30 06/13/18 18:45 Temperature Pulse Rate 71 63 65 Respiratory Rate 13 16 17 Blood Pressure 105/61 85/50 L 85/55 L Pulse Oximetry 06/13/18 19:00 06/13/18 19:15 06/13/18 19:18 Temperature Pulse Rate 63 63 62 Respiratory Rate 16 16 16 Blood Pressure 84/52 L 86/51 L 79/47 L Pulse Oximetry 92 L 100 06/13/18 19:30 06/13/18 19:45 06/13/18 20:00 Temperature 97.2 F L Pulse Rate 60 60 60 Respiratory Rate 16 14 16 Blood Pressure 89/54 L 92/59 L 92/54 L Pulse Oximetry 96 88 L 95 06/13/18 20:16 06/13/18 20:30 06/13/18 20:45 Temperature Pulse Rate 61 61 61 Respiratory Rate 16 16 16 Blood Pressure 98/54 L 102/59 L 92/57 L Pulse Oximetry 92 L 91 L 90 L 06/13/18 21:00 06/13/18 21:16 06/13/18 21:30 Temperature Pulse Rate 62 61 61 Respiratory Rate 16 16 16 Blood Pressure 93/67 L 91/53 L 102/56 L Pulse Oximetry 94 L 98 97 06/13/18 21:45 06/13/18 22:00 06/13/18 22:15 Temperature Pulse Rate 61 61 61 Respiratory Rate 16 15 13 Blood Pressure 99/57 L 94/53 L 86/55 L Pulse Oximetry 98 98 94 L 06/13/18 22:30 06/13/18 22:45 06/13/18 23:00 Temperature Pulse Rate 62 62 63 Respiratory Rate 13 16 17 Blood Pressure 88/53 L 92/53 L Pulse Oximetry 94 L 93 L 93 L 06/13/18 23:01 06/13/18 23:16 06/13/18 23:31 Temperature Pulse Rate 65 63 62 Respiratory Rate 15 15 16 Blood Pressure 111/64 115/99 H 103/59 L Pulse Oximetry 92 L 94 L 94 L 06/13/18 23:45 06/13/18 23:58 06/14/18 00:00 Temperature 97.9 F Pulse Rate 63 62 Respiratory Rate 17 17 16 Blood Pressure 95/68 L 93/52 L Pulse Oximetry 95 95 95 06/14/18 00:03 06/14/18 00:16 06/14/18 00:30 Temperature Pulse Rate 62 63 73 Respiratory Rate 16 16 16 Blood Pressure 93/52 L 102/56 L 90/55 L Pulse Oximetry 95 94 L 95 06/14/18 00:45 06/14/18 01:00 06/14/18 01:01 Temperature Pulse Rate 67 63 64 Respiratory Rate 16 16 16 Blood Pressure 82/48 L 102/59 L Pulse Oximetry 96 94 L 94 L 06/14/18 01:15 06/14/18 01:30 06/14/18 01:46 Temperature Pulse Rate 63 63 70 Respiratory Rate 24 16 23 Blood Pressure 103/57 L 106/58 L 101/63 Pulse Oximetry 94 L 94 L 94 L 06/14/18 02:00 06/14/18 02:15 06/14/18 02:30 Temperature Pulse Rate 71 65 66 Respiratory Rate 17 18 16 Blood Pressure 103/59 L 100/57 L 95/54 L Pulse Oximetry 95 95 96 06/14/18 02:45 06/14/18 03:00 06/14/18 03:15 Temperature Pulse Rate 66 67 66 Respiratory Rate 16 16 16 Blood Pressure 97/55 L 100/56 L 96/53 L Pulse Oximetry 96 94 L 95 06/14/18 03:30 06/14/18 03:45 06/14/18 04:00 Temperature 97.8 F Pulse Rate 66 66 64 Respiratory Rate 17 16 16 Blood Pressure 93/55 L 93/54 L 93/54 L Pulse Oximetry 100 100 100 06/14/18 04:15 06/14/18 04:18 06/14/18 04:30 Temperature Pulse Rate 65 65 Respiratory Rate 16 17 16 Blood Pressure 91/50 L 96/54 L Pulse Oximetry 100 100 100 06/14/18 04:46 06/14/18 05:00 06/14/18 05:01 Temperature Pulse Rate 74 77 80 Respiratory Rate 13 17 15 Blood Pressure 100/51 L 120/59 L Pulse Oximetry 98 97 97 06/14/18 05:15 06/14/18 05:30 06/14/18 05:46 Temperature Pulse Rate 67 69 72 Respiratory Rate 17 16 16 Blood Pressure 103/58 L 95/50 L 139/61 Pulse Oximetry 98 96 98 06/14/18 06:00 06/14/18 06:01 06/14/18 06:16 Temperature Pulse Rate 66 68 70 Respiratory Rate 15 9 L 12 Blood Pressure 98/54 L 100/56 L Pulse Oximetry 98 97 96 06/14/18 06:31 06/14/18 06:45 06/14/18 07:01 Temperature Pulse Rate 74 69 75 Respiratory Rate 18 11 L 13 Blood Pressure 101/59 L 84/51 L 106/57 L Pulse Oximetry 96 96 96 06/14/18 07:16 06/14/18 07:30 06/14/18 07:46 Temperature Pulse Rate 72 68 68 Respiratory Rate 18 14 15 Blood Pressure 117/59 L 101/57 L 103/54 L Pulse Oximetry 96 96 96 06/14/18 08:00 06/14/18 08:01 06/14/18 08:15 Temperature Pulse Rate 87 78 70 Respiratory Rate 20 20 16 Blood Pressure 110/66 110/66 118/57 L Pulse Oximetry 95 92 L 97 06/14/18 08:31 06/14/18 08:39 06/14/18 08:46 Temperature Pulse Rate 73 88 Respiratory Rate 16 24 22 Blood Pressure 108/67 146/67 H Pulse Oximetry 96 92 L 94 L 06/14/18 09:00 06/14/18 09:16 06/14/18 09:31 Temperature Pulse Rate 78 96 H 94 H Respiratory Rate 13 34 H 29 H Blood Pressure 114/57 L 138/66 157/64 H Pulse Oximetry 84 L 06/14/18 09:45 06/14/18 10:00 06/14/18 10:16 Temperature Pulse Rate 88 91 H 94 H Respiratory Rate 22 25 H 33 H Blood Pressure 131/64 140/67 139/65 Pulse Oximetry 06/14/18 10:31 06/14/18 10:45 06/14/18 11:00 Temperature Pulse Rate 97 H 86 104 H Respiratory Rate 21 28 H 25 H Blood Pressure 143/68 H 115/56 L 148/102 H Pulse Oximetry 92 L 86 L 06/14/18 11:01 06/14/18 11:16 06/14/18 11:30 Temperature Pulse Rate 95 H 86 Respiratory Rate 14 18 12 Blood Pressure 136/68 109/55 L Pulse Oximetry 92 L 92 L 96 06/14/18 11:45 06/14/18 12:00 06/14/18 12:15 Temperature Pulse Rate 85 84 83 Respiratory Rate 13 10 L 11 L Blood Pressure 104/55 L 110/56 L 105/57 L Pulse Oximetry 97 96 96 06/14/18 12:30 06/14/18 12:45 06/14/18 13:00 Temperature Pulse Rate 83 80 81 Respiratory Rate 11 L 11 L 12 Blood Pressure 102/68 108/59 L 109/72 Pulse Oximetry 97 98 97 06/14/18 13:16 06/14/18 13:30 06/14/18 13:46 Temperature Pulse Rate 82 84 91 H Respiratory Rate 12 15 13 Blood Pressure 120/57 L 126/66 133/69 Pulse Oximetry 92 L 94 L 89 L 06/14/18 14:00 06/14/18 14:15 06/14/18 14:31 Temperature Pulse Rate 90 91 H 86 Respiratory Rate 17 19 16 Blood Pressure 136/66 140/71 129/72 Pulse Oximetry 89 L 90 L 93 L Intake & Output 06/13/18 06/14/18 06/14/18 18:59 06:59 18:59 Intake Total 810 / 810 759 / 759 100 / 100 Output Total 210 / 210 270 / 270 Balance 600 / 600 489 / 489 100 / 100 Weight 142.9 kg Intake: IV 800 / 800 550 / 550 100 / 100 Diprivan 1000 mg/100 ml Inj 1, 200 / 200 200 / 200 000 mg In 100 ml @ 5 MCG/KG/MIN 3.87 mls/hr IV.CONT TITRATE PRN Rx#:[id number] Pitressin Inj 40 UNIT In D5W 100 / 100 100 / 100 Inj 98 ML @ 0.01 UNITS/MIN 1.5 mls/hr IV.CONT TITRATE PRN Rx#: [id number] Diflucan 200 mg Premix Bag 100 0 / 0 100 / 100 ML @ 100 mls/hr IV.SIG Q24H TRACIE Rx#:[id number] Levophed-Dextrose 4 mg/250 ml 250 / 250 Drip 4 mg In 250 ml @ 2 MCG/MIN 7.5 mls/hr IV.SIG TITRATE PRN Rx#:[id number] fentaNYL 10 mcg/mL Premix Drip 250 / 250 250 / 250 2,500 mcg In 250 ml @ 50 MCG/HR 5 mls/hr IV.SIG TITRATE PRN Rx #:[id number] Tube Feeding / Tube Irrigant 140 / 140 Other Rbc As-3 Leukoreduced Unit [id number] Intake (Blood Product) Amt 0 / 0 Rbc As-3 Leukoreduced Unit 0 / 0 [id number] Rbc As-3 Leukoreduced Unit 0 / 0 [id number] Output: Stool 200 / 200 240 / 240 Chest Tube Drainage 30 #2 Left Lower Mid-Axillary Chest Other: Date of Last Bowel Movement 06/13/18 06/14/18 06/14/18 06/10/18 16:27 Blood - Peripheral Aerobic Blood Culture - Preliminary No growth in 4 days 06/10/18 16:27 Blood - Peripheral Anaerobic Blood Culture - Preliminary No growth in 4 days 06/10/18 16:32 Blood - Peripheral Aerobic Blood Culture - Preliminary No growth in 4 days 06/10/18 16:32 Blood - Peripheral Anaerobic Blood Culture - Preliminary No growth in 4 days 06/10/18 13:50 Fluid - Pleural fluid Gram Stain - Final 06/10/18 13:50 Fluid - Pleural fluid Body Fluid Culture - Final No growth in 72 hours (aerobically and anaerobically ) 06/10/18 20:45 Sputum - Endotracheal Gram Stain - Final 06/10/18 20:45 Sputum - Endotracheal Sputum Culture - Final Rare growth normal respiratory bertin 05/28/18 14:40 Wound - Arm Fungal Smear - Final No fungal elements seen 05/28/18 14:40 Wound - Arm Fungal Culture - Preliminary No growth in 2 weeks 05/28/18 14:40 Wound - Arm Acid Fast Bacilli Smear - Final No acid fast bacilli seen 05/28/18 14:40 Wound - Arm Mycobacterial Culture - Preliminary No growth in 2 weeks 05/28/18 14:40 Other Fungal Smear - Final No fungal elements seen 05/28/18 14:40 Other Fungal Culture - Preliminary No growth in 2 weeks 05/28/18 14:40 Other Acid Fast Bacilli Smear - Final No acid fast bacilli seen 05/28/18 14:40 Other Mycobacterial Culture - Preliminary No growth in 2 weeks 06/06/18 05:20 Blood - Peripheral Aerobic Blood Culture - Final No growth in 5 days 06/06/18 05:20 Blood - Peripheral Anaerobic Blood Culture - Final No growth in 5 days 06/06/18 05:40 Blood - Peripheral Aerobic Blood Culture - Final No growth in 5 days 06/06/18 05:40 Blood - Peripheral Anaerobic Blood Culture - Final No growth in 5 days Lab - Hematology Results 06/13/18 06/13/18 06/14/18 05:03 17:47 05:00 WBC 5.7 5.3 RBC 2.24 L 2.83 L Hgb 6.7 L* 8.9 L D 8.6 L Hct 19.7 L* 24.9 L MCV 87.8 87.9 MCH 29.9 30.3 MCHC 34.0 34.5 RDW 16.4 15.8 Plt Count 219 195 MPV 7.3 7.6 Lab - Chemistry Results 06/12/18 06/12/18 06/12/18 15:50 22:43 23:20 Sodium Potassium Chloride Carbon Dioxide Anion Gap BUN Creatinine Estimated GFR POC Glucose 235 H 202 H 209 H Random Glucose Calcium Phosphorus Magnesium Total Bilirubin AST ALT Alkaline Phosphatase Total Protein Albumin 06/13/18 06/13/18 06/13/18 04:23 05:03 08:49 Sodium 130 L Potassium 3.9 Chloride 92 L Carbon Dioxide 23.2 Anion Gap 15 BUN 57 H Creatinine 7.30 H Estimated GFR 9 L POC Glucose 188 H 195 H Random Glucose 197 H Calcium 10.4 H Phosphorus 6.1 H D Magnesium 2.0 Total Bilirubin AST ALT Alkaline Phosphatase Total Protein Albumin 06/13/18 06/13/18 06/13/18 13:04 17:07 21:03 Sodium Potassium Chloride Carbon Dioxide Anion Gap BUN Creatinine Estimated GFR POC Glucose 228 H 200 H 81 Random Glucose Calcium Phosphorus Magnesium Total Bilirubin AST ALT Alkaline Phosphatase Total Protein Albumin 06/14/18 06/14/18 06/14/18 00:13 05:00 05:41 Sodium 129 L Potassium 4.5 Chloride 90 L Carbon Dioxide 21.1 Anion Gap 18 H BUN 64 H Creatinine 7.72 H Estimated GFR 8 L POC Glucose 110 195 H Random Glucose 176 H Calcium 10.0 Phosphorus 7.0 H Magnesium 2.2 Total Bilirubin 0.6 AST 20 ALT 14 Alkaline Phosphatase 91 Total Protein 8.9 H Albumin 3.1 L 06/14/18 06/14/18 09:07 12:02 Sodium Potassium Chloride Carbon Dioxide Anion Gap BUN Creatinine Estimated GFR POC Glucose 202 H 149 H Random Glucose Calcium Phosphorus Magnesium Total Bilirubin AST ALT Alkaline Phosphatase Total Protein Albumin Imaging: ITS Impressions Abdomen X-Ray 05/31/18 00:00 CONCLUSION: 1. Suction-type NGT in the stomach. Upper Extremity Ultrasound 06/06/18 00:00 CONCLUSION: 1. Nonspecific complex fluid collection could be postprocedural change, however infectious process is not excluded. Chest CT 06/10/18 12:01 CONCLUSION: 1. Bilateral parenchymal infiltrates are seen as well as bilateral moderate effusions left greater than right. 2. Pulmonary nodules are identified including cavitary lesions. Chest X-Ray 06/14/18 06:00 CONCLUSION: 1. ET tube in good position. 2. Persistent and stable infiltrates, left greater than right. Physical Exam: GENERAL: NAD sedated. intubated on vent SKIN: Warm and dry. No rash HEAD: Atraumatic. Normocephalic. EYES: Pupils equal and round. No scleral icterus. No injection or drainage. ENT: No nasal bleeding or discharge. Mucous membranes pink and moist. NECK: Trachea midline. No JVD. CARDIOVASCULAR: Regular rate and rhythm. Chest incision is open and packed, minim,al serosang drainage on the packing RESPIRATORY: No accessory muscle use. Crackes to auscultation. Breath sounds equal bilaterally. CT in place in [facility] very cloudy sedrosangious d/c GASTROINTESTINAL: Abdomen soft, non-tender, nondistended. Hepatic and splenic margins not palpable. MUSCULOSKELETAL: Extremities without clubbing, cyanosis, +edema. 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 Both isolates S to CFTX MRSA PNA Persistend hypotensiotn, back on pressors Clearly another septic episode: persistent graft infx vs new infection pt remains critical and unstable wi th persistent hypotensio requiring pressors, dose increased to 13 mcgs Pleural effusion cont vancomycin: keep trough 15-20 cont rifampin cont fluconazol x 2 weeks total (stop on 06/16) repeat RUE US to evauate swelling Needs removal of the remainder of the graft to control sepsis consider RAN repeat CXR
--- NOTE | 2018-06-14 17:07 | US ---
EXAM DATE: 06/14/2018 5:04 PM EDT AGE/SEX: 73 years / Male INDICATIONS: Swelling with previously seen fluid collection surrounding graft. Clinically worse. CLINICAL DATA: This is the patient's subsequent encounter. Patient reports that signs and symptoms h ave been present for 1 month and indicates a pain score of Nonresponsive. MEDICAL/SURGICAL HISTORY: Diabetes. Renal disease, end stage. Hypertension. Arteriovenous fi stula. Deep vein thrombosis. Obesity. Venous collateral circulation. None. COMPARISON: [facility] [place], US ARM SOFT TISSUE RIGHT, 06/06/2018. . FINDINGS: There is very impressive edema in the arm. I do not see a drainable fluid collection or well-defined abscess CONCLUSION: 1. Very impressive subcutaneous edema. No drainable fluid collection or abscess Electronically signed by: Rylan Rod MD 06/14/2018 5:05 PM EDT
[2018-06-14] MEDS: FLUCONAZOLE IV.SIG SCH (20:56)
[2018-06-15] MEDS: Vasopressin Inj 40 UNIT in Dextrose 5% in Water Inj 98 ML IV.CONT PRN ×4 (00:51→23:34)
[2018-06-15] MEDS: Sodium Chlor 0.9% Inj 100 ML IV.SIG SCH ×6 (00:52→23:04)
[2018-06-15] MEDS: Insulin NovoLOG Aspart Correctional Sugar Inj SQ SCH ×7 (00:52→23:35)
[2018-06-15] MEDS: Propofol 1000 mg/100 ml Inj 1,000 MG/100 ML BOTTLE IV.CONT PRN ×2 (05:16→16:30)
[2018-06-15 06:28] LABS: Baso # (Auto) 0.1 th/mm3 (0.0-0.2); Baso % (Auto) 1.1 % (0.0-2.0); Eos # (Auto) 0.5 th/mm3 (0.0-0.4); Eos % (Auto) 9.8 % (0.0-4.0); Hematocrit 30.6 % (39.0-51.0); Hemoglobin 10.5 gm/dL (13.0-17.0); Lymph % (Auto) 20.7 % (9.0-44.0); Mean Corpuscular HGB Conc 34.3 % (32.0-36.0); Mean Corpuscular Hemoglobin 30.3 pg (27.0-34.0); Mean Corpuscular Volume 88.4 fL (80.0-100.0); Mean Platelet Volume 7.8 fL (7.0-11.0); Mono # (Auto) 0.5 th/mm3 (0.0-0.9); Mono % (Auto) 11.2 % (0.0-8.0); Neut # (Auto) 2.8 th/mm3 (1.8-7.7); Neut % (Auto) 57.2 % (16.0-70.0); Platelet Count 184 th/mm3 (150-450); Red Blood Count 3.46 mil/mm3 (4.50-5.90); Red Cell Distribution Width 16.1 % (11.6-17.2); White Blood Count 4.9 th/mm3 (4.0-11.0)
[2018-06-15 06:35] LABS: Alanine Aminotransferase 12 U/L (12-78); Albumin 2.9 g/dL (3.4-5.0); Anion Gap 16 meq/L (5-15); Aspartate Aminotransferase 17 U/L (15-37); Blood Urea Nitrogen 71 mg/dL (7-18); Calcium 9.9 mg/dL (8.5-10.1); Carbon Dioxide 20.7 meq/L (21.0-32.0); Chloride 89 meq/L (98-107); Glomerular Filtration Rate 7 mL/min (>89); Glucose,Random 163 mg/dL (74-106); Phosphorus 7.7 mg/dL (2.5-4.9); Potassium 4.5 meq/L (3.5-5.1); Sodium 126 meq/L (136-145)
[2018-06-15 06:38] LABS: Alkaline Phosphatase 117 U/L (45-117); Total Protein 8.9 g/dL (6.4-8.2)
[2018-06-15 07:08] LABS: Activated Partial Thrombo Time 28.2 sec (24.3-30.1); Prothrombin Time 10.5 sec (9.8-11.6)
[2018-06-15 08:07] LABS: Platelet Estimate Normal (Normal)
--- NOTE | 2018-06-15 08:11 | P.PNCC ---
Subjective Subjective Remarks/Hospital Course: Mr. Laguerre is a 73-year-old -[place] male with past medical history significant for end-stage renal disease on hemodialysis, hypertension, complicated vascular access, HeRO graft placement by Dr. Umana on 09/23/2017, revision and PTFE replacement 12/25/17. who presented to the [facility] with probable sepsis and shock. Dr. Umana was contacted and patient was accepted for transfer to CVICU in [facility]. I immediately evaluated the patient on arrival to CVICU. Patient is currently on BiPAP (transported on BiPAP) severely encephalopathic hardly wakes up to sternal rub, with a rapid shallow breathing. BiPAP settings 18/8, 60% FiO2. He is literally unresponsive and not protecting airway. Currently he is on Levophed at 20 mcg/min with a map 65-70. He is also on amiodarone for atrial fibrillation with RVR. Because of lack of airway protection, severe encephalopathy, septic shock and hypoxia I proceeded with endotracheal intubation. His glottic opening was completely occluded with thick secretions, several minutes of suctioning needed to clear the secretions prior to intubation. Postintubation Levophed had to be increased to 30 mcg/min, I also placed an arterial line. All cultures, routine labs and lactic acid pending at this time. I have started him on vancomycin and Zosyn. Discussed case with Dr. Umana extensively Patient was unable to provide any history, according to the RN who got report patient apparently had GI bleed, underwent EGD with cauterization of duodenal ulcer few days ago. Will avoid heparin for DVT prophylaxis. His postintubation ABG showed severe hypoxia with significant AA gradient, metabolic acidosis, and a hemoglobin of 7.6. Currently Levophed is increased to 30 mcg/min, I will transfuse 1 unit PRBC. Chest x-ray shows pulmonary edema will arrange for hemodialysis once his shock is improves. At this time he will not be able to tolerate either hemodialysis or even CVVH 05/28: initially evaluated around 6:30am. patient in refractory septic shock. added epinephrine to levophed and vasopressin. discussed with Dr. Umana. obtained u/s of the right upper extremity which demonstrated fluid collection surrounding the HeRO graft which was heterogenous in nature. added single dose of Amikacin to vanc/zosyn regimen to cover ESBL organisms. patient remains in shock. per verbal report from OSH, blood cultures growing MRSA. taken to OR urgently and large amount of purulent drainage debrided from around catheter. HeRO catheter removed. returns from OR persistently unstable. acidosis worsening. bicarb given. discussed with nephrology and will need CRRT. 05/29: s/p emergent debridement and removal of HeRO graft. today vasopressor doses are somewhat lower, although remains on levo,vaso,epi. lactate cleared. s/ p IHD today with 3L removal. blood growing MRSA. sputum growing e.coli, providencia, MRSA. wbc remains elevated. 05/30: off vasopressors. getting IHD again today. hgb 7 and receiving 1 unit prbc during dialysis. encephalopathy persists, not following commands. 05/31: clinically continues to improve. not following commands, very slow to arouse. bradycardic this AM, but tolerating hemodynamically. HD yesterday with volume removal. 06/01: Clinically improved off all pressors. Sedated with propofol and fentanyl , opens eyes moves extremities not following commands. Plan for hemodialysis today. Initiate CPAP trial after hemodialysis. Persistently bacteremic with MRSA, repeat cultures in 24 hours 06/02: Remains in septic shock, though pressor requirement has improved. Hypotensive bradycardic while getting HD yesterday, started on Dopamine, now at 3 mcg/kg/min. Pus being expressed from upper part of right upper chest [id number] (HeRO AVG removal site). Hypothermic. Some pus around the suprapubic catheter 06/03: Patient had been weaned off all pressors now. Not requiring dopamine for the last 18 hours. However WBC count 13 K today. Persistent bacteremia with MRSA. Source could be right upper extremity graft remnant versus infected invasive catheters. After hemodialysis removal HD catheter, also remove left IJ central line. Repeat blood cultures in 24 hours. Antibiotics broadened by ID yesterday 06/04: Showing some clinical signs of improvement. Not requiring pressors hypothermia has resolved. CBC still pending patient is more awake following commands tolerating CPAP now. Left IJ central line and right femoral Vas-Cath was removed yesterday. Plan for next dialysis is tomorrow will place new Vas- Cath tomorrow a.m. to give 'line holiday'. 06/05: Back on norepinephrine at 10 mics per minute. Blood blood pressure variable, intermittently hypotensive. New Vas-Cath placed in groin functional. Most recent cultures continued to grow gram-positive cocci. Alert when propofol is lightened 06/06: Afebrile. Remains on norepinephrine drip at 7 mcg/min. Arousable on the ventilator on sedation vacation. Commands. -3 L with hemodialysis yesterday. Repeat blood cultures done the same. Right upper extremity ultrasound pending.. 06/07: remains on vasopressors. cxr today with new left pleural effusion which is quite large: confirmed on bedside lung ultrasound. pigtail chest tube placed with > 1L old hemothorax. hgb slightly lower, but hemodynamically stable. discussed with nephrology and vascular surgery and most ideal plan would be to transfuse prbc tomorrow with HD. 06/08: Remains intubated sedated with propofol. Currently on 8 mcg/min of Levophed but map is above 75. Getting 2 units of PRBC with dialysis for hemoglobin of 6.9. Left pigtail chest tube drained almost 2 L old blood appearing. I will request fluid studies from any residual drainage. CT of the chest to evaluate for any residual fluid. 06/09: Intubated sedated, wakes up and follows commands. On Levophed at 1 mcg/ min. CT of the chest shows small left pleural effusion bibasilar consolidation , multiple bilateral pulmonary nodules some cavitation indicating septic emboli most likely from staff. Blood cultures from 06/05/18 and 06/06/18 negative to date 06/10: Remains intubated slightly sedated follows commands. Levophed requirement has slightly increased overnight currently on 5 mcg/min. We will recheck blood cultures. Getting hemodialysis today. Chest x-ray shows severe left-sided airspace disease. Check ultrasound of the chest post dialysis. Left pigtail chest tube output 60 ml in last 24 hours 06/11 Patient is sedated with Diprivan and Fentanyl infusion, on Levophed 11 mics. Afebrile. Left pigtail catheter had 50 ml output and a second large bore CT was placed yesterday had approx 100ml overnight. 06/12 Patient remains intubated tolerated CPAP for several hrs yesterday remains on Levophed 10 mics and Vasopressin 0.04. Afebrile. Left pigtail catheter was dislodged yesterday, 28Fr CT had 50ml output overnight. Tolerating tube feeds. 06/13: Remains critical Levophed requirement has decreased to 5 mcg/min same dose of vasopressin 0.04. However hemoglobin has dropped to 6.7, 2 units of PRBC ordered stat. Chest tube output approximately 200 mL serosanguineous. I do not believe this is the source of his anemia. Previous history of GI bleed will consult GI. Remains encephalopathic and lethargic I do not think he can be successfully be weaned off the ventilator without a tracheostomy. General surgery consulted per Dr. Umana's request for OR tracheostomy Subjective 06/14: Remains on ventilator no acute distress. Currently on vasopressin 0.04. Norepinephrine has been held. Remains hyponatremic and hyperphosphatemia. 06/15: Remains intubated sedated remains on vasopressin. Hyponatremia worsening most likely volume related. Discussed with nephrology plan for HD with fluid removal today. Check TSH, monitor CMP Objective Vital Signs / I&O: Vital Signs 06/14/18 08:00 06/14/18 08:01 06/14/18 08:15 Temperature Pulse Rate 87 78 70 Respiratory Rate 20 20 16 Blood Pressure 110/66 110/66 118/57 L Pulse Oximetry 95 92 L 97 06/14/18 08:31 06/14/18 08:39 06/14/18 08:46 Temperature Pulse Rate 73 88 Respiratory Rate 16 24 22 Blood Pressure 108/67 146/67 H Pulse Oximetry 96 92 L 94 L 06/14/18 09:00 06/14/18 09:16 06/14/18 09:31 Temperature Pulse Rate 78 96 H 94 H Respiratory Rate 13 34 H 29 H Blood Pressure 114/57 L 138/66 157/64 H Pulse Oximetry 84 L 06/14/18 09:45 06/14/18 10:00 06/14/18 10:16 Temperature Pulse Rate 88 91 H 94 H Respiratory Rate 22 25 H 33 H Blood Pressure 131/64 140/67 139/65 Pulse Oximetry 06/14/18 10:31 06/14/18 10:45 06/14/18 11:00 Temperature Pulse Rate 97 H 86 104 H Respiratory Rate 21 28 H 25 H Blood Pressure 143/68 H 115/56 L 148/102 H Pulse Oximetry 92 L 86 L 06/14/18 11:01 06/14/18 11:16 06/14/18 11:30 Temperature Pulse Rate 95 H 86 Respiratory Rate 14 18 12 Blood Pressure 136/68 109/55 L Pulse Oximetry 92 L 92 L 96 06/14/18 11:45 06/14/18 12:00 06/14/18 12:15 Temperature Pulse Rate 85 84 83 Respiratory Rate 13 10 L 11 L Blood Pressure 104/55 L 110/56 L 105/57 L Pulse Oximetry 97 96 96 06/14/18 12:30 06/14/18 12:45 06/14/18 13:00 Temperature Pulse Rate 83 80 81 Respiratory Rate 11 L 11 L 12 Blood Pressure 102/68 108/59 L 109/72 Pulse Oximetry 97 98 97 06/14/18 13:16 06/14/18 13:30 06/14/18 13:46 Temperature Pulse Rate 82 84 91 H Respiratory Rate 12 15 13 Blood Pressure 120/57 L 126/66 133/69 Pulse Oximetry 92 L 94 L 89 L 06/14/18 14:00 06/14/18 14:15 06/14/18 14:31 Temperature Pulse Rate 90 91 H 86 Respiratory Rate 17 19 16 Blood Pressure 136/66 140/71 129/72 Pulse Oximetry 89 L 90 L 93 L 06/14/18 15:36 06/14/18 16:00 06/14/18 16:04 Temperature Pulse Rate 84 76 74 Respiratory Rate 18 16 10 L Blood Pressure 77/46 L 84/49 L Pulse Oximetry 93 L 94 L 95 06/14/18 16:15 06/14/18 16:31 06/14/18 16:45 Temperature Pulse Rate 73 75 71 Respiratory Rate 13 13 19 Blood Pressure 80/48 L 117/64 102/63 Pulse Oximetry 96 96 97 06/14/18 17:00 06/14/18 17:15 06/14/18 17:30 Temperature Pulse Rate 70 71 70 Respiratory Rate 17 15 22 Blood Pressure 106/54 L 109/59 L 104/72 Pulse Oximetry 90 L 91 L 99 06/14/18 17:46 06/14/18 18:00 06/14/18 18:16 Temperature Pulse Rate 74 71 74 Respiratory Rate 12 17 11 L Blood Pressure 100/66 101/55 L 102/67 Pulse Oximetry 98 98 97 06/14/18 18:30 06/14/18 18:45 06/14/18 19:00 Temperature Pulse Rate 74 73 74 Respiratory Rate 12 19 10 L Blood Pressure 102/54 L 101/57 L 97/53 L Pulse Oximetry 97 99 99 06/14/18 19:15 06/14/18 19:30 06/14/18 19:45 Temperature Pulse Rate 73 72 70 Respiratory Rate 8 L 16 15 Blood Pressure 104/56 L 92/50 L 103/59 L Pulse Oximetry 99 99 98 06/14/18 20:00 06/14/18 20:16 06/14/18 20:21 Temperature 98.3 F Pulse Rate 69 71 71 Respiratory Rate 16 16 16 Blood Pressure 98/55 L 100/66 Pulse Oximetry 99 100 98 06/14/18 20:30 06/14/18 20:45 06/14/18 21:00 Temperature Pulse Rate 71 70 71 Respiratory Rate 17 17 16 Blood Pressure 105/56 L 107/58 L 103/56 L Pulse Oximetry 96 96 97 06/14/18 21:16 06/14/18 21:31 06/14/18 21:46 Temperature Pulse Rate 72 72 76 Respiratory Rate 12 23 18 Blood Pressure 115/57 L 133/60 104/56 L Pulse Oximetry 96 95 97 06/14/18 22:00 06/14/18 22:15 06/14/18 22:30 Temperature Pulse Rate 76 77 78 Respiratory Rate 16 16 16 Blood Pressure 88/53 L 86/51 L 82/47 L Pulse Oximetry 98 98 98 06/14/18 22:45 06/14/18 23:00 06/14/18 23:15 Temperature Pulse Rate 76 73 75 Respiratory Rate 16 16 13 Blood Pressure 89/52 L 89/50 L 94/53 L Pulse Oximetry 97 97 97 06/14/18 23:30 06/14/18 23:45 06/15/18 00:00 Temperature 98.2 F Pulse Rate 74 73 72 Respiratory Rate 16 16 16 Blood Pressure 81/48 L 82/49 L 85/52 L Pulse Oximetry 97 97 97 06/15/18 00:16 06/15/18 00:30 06/15/18 00:40 Temperature Pulse Rate 68 70 Respiratory Rate 16 16 16 Blood Pressure 112/53 L 90/54 L Pulse Oximetry 96 96 96 06/15/18 00:46 06/15/18 01:00 06/15/18 01:15 Temperature Pulse Rate 66 67 67 Respiratory Rate 16 16 16 Blood Pressure 105/54 L 91/52 L 84/52 L Pulse Oximetry 96 96 95 06/15/18 01:30 06/15/18 01:45 06/15/18 02:00 Temperature Pulse Rate 67 67 66 Respiratory Rate 16 16 16 Blood Pressure 85/52 L 86/53 L 87/54 L Pulse Oximetry 95 95 95 06/15/18 02:15 06/15/18 02:30 06/15/18 02:45 Temperature Pulse Rate 66 67 66 Respiratory Rate 17 17 19 Blood Pressure 95/54 L 93/55 L 93/51 L Pulse Oximetry 95 95 95 06/15/18 03:00 06/15/18 03:15 06/15/18 03:30 Temperature Pulse Rate 65 68 70 Respiratory Rate 17 12 29 H Blood Pressure 93/55 L 104/56 L 117/65 Pulse Oximetry 95 94 L 06/15/18 03:45 06/15/18 04:00 06/15/18 04:16 Temperature 98.6 F Pulse Rate 64 62 82 Respiratory Rate 18 16 17 Blood Pressure 110/57 L 100/56 L 133/82 Pulse Oximetry 99 06/15/18 04:22 06/15/18 04:31 06/15/18 04:45 Temperature Pulse Rate 79 69 66 Respiratory Rate 16 17 15 Blood Pressure 105/53 L 101/54 L Pulse Oximetry 99 100 100 06/15/18 05:00 06/15/18 05:15 06/15/18 05:32 Temperature Pulse Rate 66 66 84 Respiratory Rate 13 16 11 L Blood Pressure 102/57 L 104/57 L 122/57 L Pulse Oximetry 100 100 100 06/15/18 05:45 06/15/18 06:00 06/15/18 06:01 Temperature Pulse Rate 73 73 72 Respiratory Rate 19 12 13 Blood Pressure 113/58 L 121/58 L Pulse Oximetry 100 100 100 Intake & Output 06/14/18 06/15/18 06/15/18 18:59 06:59 18:59 Intake Total 416 / 416 950 / 950 Output Total 60 / 60 320 / 320 Balance 356 / 356 630 / 630 Weight 144.6 kg Intake: IV 200 / 200 650 / 650 Diprivan 1000 mg/100 ml Inj 1, 100 / 100 200 / 200 000 mg In 100 ml @ 5 MCG/KG/MIN 3.87 mls/hr IV.CONT TITRATE PRN Rx#:[id number] Pitressin Inj 40 UNIT In D5W 100 / 100 100 / 100 Inj 98 ML @ 0.01 UNITS/MIN 1.5 mls/hr IV.CONT TITRATE PRN Rx#: [id number] Diflucan 200 mg Premix Bag 200 100 / 100 MG In Bag/Syringe 1 EACH @ 100 mls/hr IV.SIG Q24H TRACIE Rx#: [id number] fentaNYL 10 mcg/mL Premix Drip 250 / 250 2,500 mcg In 250 ml @ 50 MCG/HR 5 mls/hr IV.SIG TITRATE PRN Rx #:[id number] Tube Feeding 106 / 106 180 / 180 Tube Irrigant 120 / 120 Water Bolus Amount 110 / 110 Output: Stool 50 / 50 300 / 300 Chest Tube Drainage #2 Left Lower Mid-Axillary Chest Other: Date of Last Bowel Movement 06/14/18 06/15/18 Result Diagrams: 06/15/18 05:20 06/15/18 05:20 Objective Remarks: GENERAL: 73-year-old -[place] male, lying in bed, intubated, on sedation with propofol and fentanyl HEENT: Normocephalic. Atraumatic. Pupils equal, round, reactive. NECK: Trachea is midline. Orotracheally intubated. Left IJ CVL is clean dry and intact. Left CHEST: PRVC. equal chest rise. Air entry decreased predominantly in the left lung newman with few coarse rhonchi bilaterally. Left chest tube with old appearing blood 30 mL in 24 hours CARDIOVASCULAR: Atrial fibrillation rate controlled. No murmurs. No JVD. Vasopressin ABDOMEN: Soft, nontender, nondistended. No guarding. Left femoral dialysis catheter site clean dry and intact MUSCULOSKELETAL: Right upper extremity s/p debridement upper incision W/D dressing. Pulses 2+. No peripheral edema. NEUROLOGICAL: Intubated sedated. Do not follow commands but moves extremities spontaneously. No focal deficits Assessment and Plan - Assessment and Plan Plan: NEURO/PSYCH: Toxic metabolic encephalopathy -Continue on propofol and fentanyl drip due to patient biting on the tube, asynchronous with the vent -As needed hydromorphone 0.5 mg IV every 2 hours as needed added 06/11 -Acetaminophen 650 mg by tube every 6 hours as needed fever -Altered mentation secondary to toxic metabolic encephalopathy from sepsis and hypercapnia -Daily sedation location RESP: Acute hypoxemic and hypercarbic respiratory failure Multiple pulmonary nodules/septic emboli Pulmonary edema Left Hemothorax MRSA pneumonia HCAP with MRSA- present on admission General surgery consulted for tracheostomy-Dr. Umana requests OR trach, plan for 06/16/[address] Acosta -Continue abx. daily /SBT as narciso. Ventilator bundle. Albuterol/ipratropium aerosols every 6 hours scheduled and albuterol aerosols every 2 hours as needed -MRSA pneumonia treatment below s/p 10 Fr pigtail chest tube, left, with >1L old dark blood. 06/07. Dislodged 06/11 s/p 28Fr CT placement 06/10 with 400ml removed on insertion, had 30ml output last 24 hours. Remove chest tube after OR trach Fluid studies consistent with hemothorax CXR : Improved left lung airspace consolidation. There is residual bilateral airspace consolidation, left greater than right. CT of the chest shows multiple pulmonary nodules with some cavitation indicating septic emboli CV: Septic shock Pulmonary edema-resolving Atrial fibrillation with RVR-currently rate controlled Acute severe anion gap Metabolic acidosis- resolved On vasopressin 0.04 units/min keep MAP>65mmHg A. fib rate is controlled and currently normal sinus rhythm, cannot anticoagulate due to history of recent GI bleed, and blood loss anemia Echo 06/12/2018 shows mild concentric left ventricular hypertrophy. The left ventricular systolic function is normal with an estimated ejection fraction in the range of 55-60%. There is trace tricuspid valve regurgitation. There is a small pericardial effusion present. GI/HEME/FEN: Recent GI bleed Acute normocytic anemia requiring transfusion Hyperphosphatemia Hyponatremia hypoalbuminemia -s/p Transfuse 2U PRBC with HD 06/10, additional 2 units 06/13/18 -GI consulted 06/13, however I do not see an official consult -will place a reconsult, will likely need PEG tube also -Nepro tube feeds at 45 cc an hour per nutrition recommendations with Beneprotein 1 packet 3 times daily -IV pantoprazole 40 mg IV q12 -Docusate sodium/senna 1 tablet twice daily for bowel regimen -Calcium acetate 667 mg 3 times daily for elevated phosphorus. /renal: End-stage renal disease on hemodialysis HeRO graft placed 09/2017, now removed due to graft infection - Nephrology: Dr. Davidson following - continue HD per nephrology, Monitor renal function, I/O's, avoid nephrotoxins ID: Septic shock HeRO graft infection s/p removal HCAP pneumonia- present on admission MRSA septic emboli to lung Persistent MRSA bacteremia -Persistent MRSA bacteremia could be secondary to infected remnant of the AV graft, versus secondary seeding of the catheters Recent blood cultures since 06/05/2018 had been negative -Removed Vas-Cath, and left IJ central line 06/03/18 - 05/27, 05/28, 05/30, 06/01 and 06/04 blood cultures MRSA - 05/27 sputum cultures: Providencia, MRSA, e.coli - 06/02 wound with Arlet albicans - ID Dr. Morgan, abx management per ID - cont vancomycin: keep trough 15-20 cont rifampin - Continue fluconazole - will need minimum 6 weeks coverage for MRSA graft infection - Dr. Umana following ENDO: Type 2 diabetes Presumed Adrenal insufficiency -Sliding scale insulin with aspart insulin every 4 hours -Status post stress steroids PROPH: -Bilateral lower extremity SCDs. IV Protonix 40 mg every 12. Chemical prophylaxis contraindicated due to anemia requiring transfusion LINES: -Removed OSH left IJ central line and OSH right femoral Vas-Cath on 06/03/2018 -New left femoral Vas-Cath placement 06/04/18 -left radial arterial line 05/27-06/13/18 -New LIJ central line 06/08/18 due to ongoing pressor requirement Level 3 follow-up Patient still remains critically ill but stable but requiring vasopressin to keep map above 65. Encephalopathy persist continues to fail CPAP trial. Tracheostomy planned for tomorrow GI consulted for anemia and GI bleed and also need for PEG tube placement
[2018-06-15] MEDS: Mupirocin 2% Nasal Oint Topical Syringe EACH NARE SCH ×2 (08:21→21:03)
[2018-06-15] MEDS: Hypromellose 0.3% Opth Gel 10 GM Bottle EACH EYE SCH ×2 (08:21→21:04)
[2018-06-15] MEDS: Senna/Docusate Sodium 8.6/50 MG Tablet PO SCH ×2 (08:21→21:04)
[2018-06-15] MEDS: Beneprotein Powder Packet G-TUBE SCH ×3 (08:21→17:42)
[2018-06-15] MEDS: Calcium Acetate 667 MG Capsule PO SCH ×3 (08:22→17:42)
[2018-06-15] MEDS: Albumin Human 25% Inj 100 ML IV.SIG PRN ×2 (09:13→09:15)
[2018-06-15] MEDS: Sod Chloride 0.9% Inj 1,000 ML OTHER PRN (09:15)
[2018-06-15] MEDS: Vancomycin Inj 1,000 MG in Sodium Chlor 0.9% Inj 250 ML IV.SIG SCH (09:16)
--- NOTE | 2018-06-15 09:18 | P.PNVS ---
Subjective Subjective/Hospital Course: 73 s/p R UE AV graft removal Pt remains intubated/sedated and on pressors Pt receiving HD at the [facility] R chest to arm incision intact w/o erythema/drainage Objective Vital Signs / I&O: Vital Signs 06/14/18 09:00 18 09:16 06/14/18 09:31 Temperature Pulse Rate 78 96 H 94 H Respiratory Rate 13 34 H 29 H Blood Pressure 114/57 L 138/66 157/64 H Pulse Oximetry 84 L 06/14/18 09:45 06/14/18 10:00 06/14/18 10:16 Temperature Pulse Rate 88 91 H 94 H Respiratory Rate 22 25 H 33 H Blood Pressure 131/64 140/67 139/65 Pulse Oximetry 06/14/18 10:31 06/14/18 10:45 06/14/18 11:00 Temperature Pulse Rate 97 H 86 104 H Respiratory Rate 21 28 H 25 H Blood Pressure 143/68 H 115/56 L 148/102 H Pulse Oximetry 92 L 86 L 06/14/18 11:01 06/14/18 11:16 06/14/18 11:30 Temperature Pulse Rate 95 H 86 Respiratory Rate 14 18 12 Blood Pressure 136/68 109/55 L Pulse Oximetry 92 L 92 L 96 06/14/18 11:45 06/14/18 12:00 06/14/18 12:15 Temperature Pulse Rate 85 84 83 Respiratory Rate 13 10 L 11 L Blood Pressure 104/55 L 110/56 L 105/57 L Pulse Oximetry 97 96 96 06/14/18 12:30 06/14/18 12:45 06/14/18 13:00 Temperature Pulse Rate 83 80 81 Respiratory Rate 11 L 11 L 12 Blood Pressure 102/68 108/59 L 109/72 Pulse Oximetry 97 98 97 06/14/18 13:16 06/14/18 13:30 06/14/18 13:46 Temperature Pulse Rate 82 84 91 H Respiratory Rate 12 15 13 Blood Pressure 120/57 L 126/66 133/69 Pulse Oximetry 92 L 94 L 89 L 06/14/18 14:00 06/14/18 14:15 06/14/18 14:31 Temperature Pulse Rate 90 91 H 86 Respiratory Rate 17 19 16 Blood Pressure 136/66 140/71 129/72 Pulse Oximetry 89 L 90 L 93 L 06/14/18 15:36 06/14/18 16:00 06/14/18 16:04 Temperature Pulse Rate 84 76 74 Respiratory Rate 18 16 10 L Blood Pressure 77/46 L 84/49 L Pulse Oximetry 93 L 94 L 95 06/14/18 16:15 06/14/18 16:31 06/14/18 16:45 Temperature Pulse Rate 73 75 71 Respiratory Rate 13 13 19 Blood Pressure 80/48 L 117/64 102/63 Pulse Oximetry 96 96 97 06/14/18 17:00 06/14/18 17:15 06/14/18 17:30 Temperature Pulse Rate 70 71 70 Respiratory Rate 17 15 22 Blood Pressure 106/54 L 109/59 L 104/72 Pulse Oximetry 90 L 91 L 99 06/14/18 17:46 06/14/18 18:00 06/14/18 18:16 Temperature Pulse Rate 74 71 74 Respiratory Rate 12 17 11 L Blood Pressure 100/66 101/55 L 102/67 Pulse Oximetry 98 98 97 06/14/18 18:30 06/14/18 18:45 06/14/18 19:00 Temperature Pulse Rate 74 73 74 Respiratory Rate 12 19 10 L Blood Pressure 102/54 L 101/57 L 97/53 L Pulse Oximetry 97 99 99 06/14/18 19:15 06/14/18 19:30 06/14/18 19:45 Temperature Pulse Rate 73 72 70 Respiratory Rate 8 L 16 15 Blood Pressure 104/56 L 92/50 L 103/59 L Pulse Oximetry 99 99 98 06/14/18 20:00 06/14/18 20:16 06/14/18 20:21 Temperature 98.3 F Pulse Rate 69 71 71 Respiratory Rate 16 16 16 Blood Pressure 98/55 L 100/66 Pulse Oximetry 99 100 98 06/14/18 20:30 06/14/18 20:45 06/14/18 21:00 Temperature Pulse Rate 71 70 71 Respiratory Rate 17 17 16 Blood Pressure 105/56 L 107/58 L 103/56 L Pulse Oximetry 96 96 97 06/14/18 21:16 06/14/18 21:31 06/14/18 21:46 Temperature Pulse Rate 72 72 76 Respiratory Rate 12 23 18 Blood Pressure 115/57 L 133/60 104/56 L Pulse Oximetry 96 95 97 06/14/18 22:00 06/14/18 22:15 06/14/18 22:30 Temperature Pulse Rate 76 77 78 Respiratory Rate 16 16 16 Blood Pressure 88/53 L 86/51 L 82/47 L Pulse Oximetry 98 98 98 06/14/18 22:45 06/14/18 23:00 06/14/18 23:15 Temperature Pulse Rate 76 73 75 Respiratory Rate 16 16 13 Blood Pressure 89/52 L 89/50 L 94/53 L Pulse Oximetry 97 97 97 06/14/18 23:30 06/14/18 23:45 06/15/18 00:00 Temperature 98.2 F Pulse Rate 74 73 72 Respiratory Rate 16 16 16 Blood Pressure 81/48 L 82/49 L 85/52 L Pulse Oximetry 97 97 97 06/15/18 00:16 06/15/18 00:30 06/15/18 00:40 Temperature Pulse Rate 68 70 Respiratory Rate 16 16 16 Blood Pressure 112/53 L 90/54 L Pulse Oximetry 96 96 96 06/15/18 00:46 06/15/18 01:00 06/15/18 01:15 Temperature Pulse Rate 66 67 67 Respiratory Rate 16 16 16 Blood Pressure 105/54 L 91/52 L 84/52 L Pulse Oximetry 96 96 95 06/15/18 01:30 06/15/18 01:45 06/15/18 02:00 Temperature Pulse Rate 67 67 66 Respiratory Rate 16 16 16 Blood Pressure 85/52 L 86/53 L 87/54 L Pulse Oximetry 95 95 95 06/15/18 02:15 06/15/18 02:30 06/15/18 02:45 Temperature Pulse Rate 66 67 66 Respiratory Rate 17 17 19 Blood Pressure 95/54 L 93/55 L 93/51 L Pulse Oximetry 95 95 95 06/15/18 03:00 06/15/18 03:15 06/15/18 03:30 Temperature Pulse Rate 65 68 70 Respiratory Rate 17 12 29 H Blood Pressure 93/55 L 104/56 L 117/65 Pulse Oximetry 95 94 L 06/15/18 03:45 06/15/18 04:00 06/15/18 04:16 Temperature 98.6 F Pulse Rate 64 62 82 Respiratory Rate 18 16 17 Blood Pressure 110/57 L 100/56 L 133/82 Pulse Oximetry 99 06/15/18 04:22 06/15/18 04:31 06/15/18 04:45 Temperature Pulse Rate 79 69 66 Respiratory Rate 16 17 15 Blood Pressure 105/53 L 101/54 L Pulse Oximetry 99 100 100 06/15/18 05:00 06/15/18 05:15 06/15/18 05:32 Temperature Pulse Rate 66 66 84 Respiratory Rate 13 16 11 L Blood Pressure 102/57 L 104/57 L 122/57 L Pulse Oximetry 100 100 100 06/15/18 05:45 06/15/18 06:00 06/15/18 06:01 Temperature Pulse Rate 73 73 72 Respiratory Rate 19 12 13 Blood Pressure 113/58 L 121/58 L Pulse Oximetry 100 100 100 06/15/18 08:01 Temperature Pulse Rate Respiratory Rate 18 Blood Pressure Pulse Oximetry 100 Intake & Output 06/14/18 06/15/18 06/15/18 18:59 06:59 18:59 Intake Total 416 / 416 950 / 950 Output Total 60 / 60 320 / 320 Balance 356 / 356 630 / 630 Weight 144.6 kg Intake: IV 200 / 200 650 / 650 Diprivan 1000 mg/100 ml Inj 1, 100 / 100 200 / 200 000 mg In 100 ml @ 5 MCG/KG/MIN 3.87 mls/hr IV.CONT TITRATE PRN Rx#:[id number] Pitressin Inj 40 UNIT In D5W 100 / 100 100 / 100 Inj 98 ML @ 0.01 UNITS/MIN 1.5 mls/hr IV.CONT TITRATE PRN Rx#: [id number] Diflucan 200 mg Premix Bag 200 100 / 100 MG In Bag/Syringe 1 EACH @ 100 mls/hr IV.SIG Q24H TRACIE Rx#: [id number] fentaNYL 10 mcg/mL Premix Drip 250 / 250 2,500 mcg In 250 ml @ 50 MCG/HR 5 mls/hr IV.SIG TITRATE PRN Rx #:[id number] Tube Feeding 106 / 106 180 / 180 Tube Irrigant 120 / 120 Water Bolus Amount 110 / 110 Output: Stool 50 / 50 300 / 300 Chest Tube Drainage 20 / 20 #2 Left Lower Mid-Axillary 20 Chest Other: Date of Last Bowel Movement 06/14/18 06/15/18 Physical Exam: 73/M sedated on a vent Resp even and clear Irregular HR Incision R chest to arm intact w/o R/D R arm swelling noted Palpable R/L Radial pulse (2+) Laboratory Results - last 24 hr 06/14/18 06/14/18 06/14/18 09:07 12:02 16:35 WBC RBC Hgb Hct MCV MCH MCHC RDW Plt Count MPV Prelim Diff (Auto) Neut % (Auto) Lymph % (Auto) Stokes % (Auto) Eos % (Auto) Baso % (Auto) Neut # (Auto) Lymph # (Auto) Stokes # (Auto) Eos # (Auto) Baso # (Auto) WBC Differential Diff Scan Differential Comment Platelet Estimate Platelet Morphology PT INR APTT Sodium Potassium Chloride Carbon Dioxide Anion Gap BUN Creatinine Estimated GFR POC Glucose 202 H 149 H 188 H Random Glucose Calcium Phosphorus Magnesium Total Bilirubin AST ALT Alkaline Phosphatase Total Protein Albumin [facility] 06/14/18 06/15/18 06/15/18 20:54 00:42 05:15 WBC RBC Hgb Hct MCV MCH MCHC RDW Plt Count MPV Prelim Diff (Auto) Neut % (Auto) Lymph % (Auto) Stokes % (Auto) Eos % (Auto) Baso % (Auto) Neut # (Auto) Lymph # (Auto) Stokes # (Auto) Eos # (Auto) Baso # (Auto) WBC Differential Diff Scan Differential Comment Platelet Estimate Platelet Morphology PT INR APTT Sodium Potassium Chloride Carbon Dioxide Anion Gap BUN Creatinine Estimated GFR POC Glucose 260 H 140 H 170 H Random Glucose Calcium Phosphorus Magnesium Total Bilirubin AST ALT Alkaline Phosphatase Total Protein Albumin [facility] 06/15/18 06/15/18 06/15/18 05:20 05:20 05:20 WBC 4.9 RBC 3.46 L Hgb 10.5 L Hct 30.6 L MCV 88.4 MCH 30.3 MCHC 34.3 RDW 16.1 Plt Count 184 MPV 7.8 Prelim Diff (Auto) Slide review pending Neut % (Auto) 57.2 Lymph % (Auto) 20.7 Stokes % (Auto) 11.2 H Eos % (Auto) 9.8 H Baso % (Auto) 1.1 Neut # (Auto) 2.8 Lymph # (Auto) 1.0 Stokes # (Auto) 0.5 Eos # (Auto) 0.5 H Baso # (Auto) 0.1 WBC Differential . Diff Scan Auto diff confirmed Differential Comment . Platelet Estimate Normal Platelet Morphology Enlarged H PT 10.5 INR 1.0 APTT 28.2 Sodium 126 L Potassium 4.5 Chloride 89 L Carbon Dioxide 20.7 L Anion Gap 16 H BUN 71 H Creatinine 8.66 H Estimated GFR 7 L POC Glucose Random Glucose 163 H Calcium 9.9 Phosphorus 7.7 H Magnesium 2.0 Total Bilirubin 0.6 AST 17 ALT 12 Alkaline Phosphatase 117 Total Protein 8.9 H Albumin 2.9 L TSH 06/15/18 06/15/18 05:20 07:53 WBC RBC Hgb Hct MCV MCH MCHC RDW Plt Count MPV Prelim Diff (Auto) Neut % (Auto) Lymph % (Auto) Stokes % (Auto) Eos % (Auto) Baso % (Auto) Neut # (Auto) Lymph # (Auto) Stokes # (Auto) Eos # (Auto) Baso # (Auto) WBC Differential Diff Scan Differential Comment Platelet Estimate Platelet Morphology PT INR APTT Sodium Potassium Chloride Carbon Dioxide Anion Gap BUN Creatinine Estimated GFR POC Glucose 207 H Random Glucose Calcium Phosphorus Magnesium Total Bilirubin AST ALT Alkaline Phosphatase Total Protein Albumin TSH 8.780 H Microbiology 06/10/18 16:27 Aerobic Blood Culture - Preliminary Blood - Peripheral No growth in 4 days Anaerobic Blood Culture - Preliminary No growth in 4 days 06/10/18 16:32 Aerobic Blood Culture - Preliminary Blood - Peripheral No growth in 4 days Anaerobic Blood Culture - Preliminary No growth in 4 days Impressions Upper Extremity Ultrasound 06/14/18 00:00 CONCLUSION: 1. Very impressive subcutaneous edema. No drainable fluid collection or abscess Chest X-Ray 06/14/18 06:00 CONCLUSION: 1. ET tube in good position. 2. Persistent and stable infiltrates, left greater than right. Assessment and Plan - Assessment (1) Septic shock Code(s): A41.9 - Sepsis, unspecified organism; R65.21 - Severe sepsis with septic shock Status: Deleted (2) Arteriovenous graft infection Code(s): T82.7XXA - Infection and inflammatory reaction due to other cardiac and vascular devices, implants and grafts, initial encounter Status: Deleted - Plan Pt s/p excision of R neck and arm graft Pt continues to slowly wean off the ventilator HD at the R chest/arm incision healing w/o infectious appearance Plan Continue daily w/d dressing- R neck Continue antibiotics Eliane Rucker NP [facility] [phone]
--- NOTE | 2018-06-15 11:14 | P.PNNP ---
Subjective Interval history: On ventilator, vasopressors, on dialysis Physical Exam Vital signs: Vital Signs 06/14/18 11:16 06/14/18 11:30 06/14/18 11:45 Temperature Pulse Rate 95 H 86 85 Respiratory Rate 18 12 13 Blood Pressure 136/68 109/55 L 104/55 L Pulse Oximetry 92 L 96 97 06/14/18 12:00 06/14/18 12:15 06/14/18 12:30 Temperature Pulse Rate 84 83 83 Respiratory Rate 10 L 11 L 11 L Blood Pressure 110/56 L 105/57 L 102/68 Pulse Oximetry 96 96 97 06/14/18 12:45 06/14/18 13:00 06/14/18 13:16 Temperature Pulse Rate 80 81 82 Respiratory Rate 11 L 12 12 Blood Pressure 108/59 L 109/72 120/57 L Pulse Oximetry 98 97 92 L 06/14/18 13:30 06/14/18 13:46 06/14/18 14:00 Temperature Pulse Rate 84 91 H 90 Respiratory Rate 15 13 17 Blood Pressure 126/66 133/69 136/66 Pulse Oximetry 94 L 89 L 89 L 06/14/18 14:15 06/14/18 14:31 06/14/18 15:36 Temperature Pulse Rate 91 H 86 84 Respiratory Rate 19 16 18 Blood Pressure 140/71 129/72 Pulse Oximetry 90 L 93 L 93 L 06/14/18 16:00 06/14/18 16:04 06/14/18 16:15 Temperature Pulse Rate 76 74 73 Respiratory Rate 16 10 L 13 Blood Pressure 77/46 L 84/49 L 80/48 L Pulse Oximetry 94 L 95 96 06/14/18 16:31 06/14/18 16:45 06/14/18 17:00 Temperature Pulse Rate 75 71 70 Respiratory Rate 13 19 17 Blood Pressure 117/64 102/63 106/54 L Pulse Oximetry 96 97 90 L 06/14/18 17:15 06/14/18 17:30 06/14/18 17:46 Temperature Pulse Rate 71 70 74 Respiratory Rate 15 22 12 Blood Pressure 109/59 L 104/72 100/66 Pulse Oximetry 91 L 99 98 06/14/18 18:00 06/14/18 18:16 06/14/18 18:30 Temperature Pulse Rate 71 74 74 Respiratory Rate 17 11 L 12 Blood Pressure 101/55 L 102/67 102/54 L Pulse Oximetry 98 97 97 06/14/18 18:45 06/14/18 19:00 06/14/18 19:15 Temperature Pulse Rate 73 74 73 Respiratory Rate 19 10 L 8 L Blood Pressure 101/57 L 97/53 L 104/56 L Pulse Oximetry 99 99 99 06/14/18 19:30 06/14/18 19:45 06/14/18 20:00 Temperature 98.3 F Pulse Rate 72 70 69 Respiratory Rate 16 15 16 Blood Pressure 92/50 L 103/59 L 98/55 L Pulse Oximetry 99 98 99 06/14/18 20:16 06/14/18 20:21 06/14/18 20:30 Temperature Pulse Rate 71 71 71 Respiratory Rate 16 16 17 Blood Pressure 100/66 105/56 L Pulse Oximetry 100 98 96 06/14/18 20:45 06/14/18 21:00 06/14/18 21:16 Temperature Pulse Rate 70 71 72 Respiratory Rate 17 16 12 Blood Pressure 107/58 L 103/56 L 115/57 L Pulse Oximetry 96 97 96 06/14/18 21:31 06/14/18 21:46 06/14/18 22:00 Temperature Pulse Rate 72 76 76 Respiratory Rate 23 18 16 Blood Pressure 133/60 104/56 L 88/53 L Pulse Oximetry 95 97 98 06/14/18 22:15 06/14/18 22:30 06/14/18 22:45 Temperature Pulse Rate 77 78 76 Respiratory Rate 16 16 16 Blood Pressure 86/51 L 82/47 L 89/52 L Pulse Oximetry 98 98 97 06/14/18 23:00 06/14/18 23:15 06/14/18 23:30 Temperature Pulse Rate 73 75 74 Respiratory Rate 16 13 16 Blood Pressure 89/50 L 94/53 L 81/48 L Pulse Oximetry 97 97 97 06/14/18 23:45 06/15/18 00:00 06/15/18 00:16 Temperature 98.2 F Pulse Rate 73 72 68 Respiratory Rate 16 16 16 Blood Pressure 82/49 L 85/52 L 112/53 L Pulse Oximetry 97 97 96 06/15/18 00:30 06/15/18 00:40 06/15/18 00:46 Temperature Pulse Rate 70 66 Respiratory Rate 16 16 16 Blood Pressure 90/54 L 105/54 L Pulse Oximetry 96 96 96 06/15/18 01:00 06/15/18 01:15 06/15/18 01:30 Temperature Pulse Rate 67 67 67 Respiratory Rate 16 16 16 Blood Pressure 91/52 L 84/52 L 85/52 L Pulse Oximetry 96 95 95 06/15/18 01:45 06/15/18 02:00 06/15/18 02:15 Temperature Pulse Rate 67 66 66 Respiratory Rate 16 16 17 Blood Pressure 86/53 L 87/54 L 95/54 L Pulse Oximetry 95 95 95 06/15/18 02:30 06/15/18 02:45 06/15/18 03:00 Temperature Pulse Rate 67 66 65 Respiratory Rate 17 19 17 Blood Pressure 93/55 L 93/51 L 93/55 L Pulse Oximetry 95 95 95 06/15/18 03:15 06/15/18 03:30 06/15/18 03:45 Temperature Pulse Rate 68 70 64 Respiratory Rate 12 29 H 18 Blood Pressure 104/56 L 117/65 110/57 L Pulse Oximetry 94 L 06/15/18 04:00 06/15/18 04:16 06/15/18 04:22 Temperature 98.6 F Pulse Rate 62 82 79 Respiratory Rate 16 17 16 Blood Pressure 100/56 L 133/82 Pulse Oximetry 99 99 06/15/18 04:31 06/15/18 04:45 06/15/18 05:00 Temperature Pulse Rate 69 66 66 Respiratory Rate 17 15 13 Blood Pressure 105/53 L 101/54 L 102/57 L Pulse Oximetry 100 100 100 06/15/18 05:15 06/15/18 05:32 06/15/18 05:45 Temperature Pulse Rate 66 84 73 Respiratory Rate 16 11 L 19 Blood Pressure 104/57 L 122/57 L 113/58 L Pulse Oximetry 100 100 100 06/15/18 06:00 06/15/18 06:01 06/15/18 06:15 Temperature Pulse Rate 73 72 75 Respiratory Rate 12 13 10 L Blood Pressure 121/58 L 109/56 L Pulse Oximetry 100 100 100 06/15/18 06:31 06/15/18 06:45 06/15/18 07:00 Temperature Pulse Rate 74 72 72 Respiratory Rate 11 L 17 14 Blood Pressure 119/58 L 110/58 L 107/56 L Pulse Oximetry 100 100 100 06/15/18 07:15 06/15/18 07:30 06/15/18 07:45 Temperature Pulse Rate 73 72 74 Respiratory Rate 14 16 14 Blood Pressure 110/56 L 104/55 L 104/59 L Pulse Oximetry 100 100 100 06/15/18 08:00 06/15/18 08:01 06/15/18 08:16 Temperature 98.2 F Pulse Rate 72 73 Respiratory Rate 10 L 18 11 L Blood Pressure 101/53 L 114/56 L Pulse Oximetry 100 100 100 06/15/18 08:30 06/15/18 08:45 06/15/18 08:58 Temperature Pulse Rate 76 71 75 Respiratory Rate 18 17 16 Blood Pressure 131/60 96/54 L Pulse Oximetry 99 100 06/15/18 09:00 06/15/18 09:01 06/15/18 09:16 Temperature Pulse Rate 74 75 84 Respiratory Rate 18 17 22 Blood Pressure 102/58 L 102/58 L 113/60 Pulse Oximetry 100 100 100 06/15/18 09:31 06/15/18 09:46 06/15/18 10:00 Temperature Pulse Rate 75 84 84 Respiratory Rate 16 18 16 Blood Pressure 90/55 L 111/56 L Pulse Oximetry 100 100 100 06/15/18 10:01 Temperature Pulse Rate 83 Respiratory Rate 14 Blood Pressure 100/54 L Pulse Oximetry 100 Intake & Output 06/14/18 06/15/18 06/15/18 18:59 06:59 18:59 Intake Total 416 / 416 950 / 950 100 / 100 Output Total 60 / 60 320 / 320 Balance 356 / 356 630 / 630 100 / 100 Weight 144.6 kg Intake: IV 200 / 200 650 / 650 100 / 100 Diprivan 1000 mg/100 ml Inj 1, 100 / 100 200 / 200 000 mg In 100 ml @ 5 MCG/KG/MIN 3.87 mls/hr IV.CONT TITRATE PRN Rx#:[id number] Pitressin Inj 40 UNIT In D5W 100 / 100 100 / 100 Inj 98 ML @ 0.01 UNITS/MIN 1.5 mls/hr IV.CONT TITRATE PRN Rx#: [id number] Flexbumin 25% Inj 100 ML @ 60 100 / 100 mls/hr IV.SIG WITH DIALYSIS PRN Rx#:[id number] Diflucan 200 mg Premix Bag 200 100 / 100 MG In Bag/Syringe 1 EACH @ 100 mls/hr IV.SIG Q24H TRACIE Rx#: [id number] fentaNYL 10 mcg/mL Premix Drip 250 / 250 2,500 mcg In 250 ml @ 50 MCG/HR 5 mls/hr IV.SIG TITRATE PRN Rx #:[id number] Tube Feeding 106 / 106 180 / 180 Tube Irrigant 120 / 120 Water Bolus Amount 110 / 110 Output: Stool 50 / 50 300 / 300 Chest Tube Drainage #2 Left Lower Mid-Axillary Chest Other: Date of Last Bowel Movement 06/14/18 06/15/18 06/15/18 - Constitutional no acute distress - Routine HEENT Exam Eye: Present: EOMI - Routine Neck Exam Present: supple - Routine Respiratory Exam Present: patient mechanically ventilated - Routine Cardiovascular Exam Present: S1, S2, irregular rhythm - Routine Abdominal Exam Present: distended - Routine Extremities Exam Present: edema - Urinary Catheter Management Suprapubic Cath placed during this visit: no Assessment and Plan - Assessment (1) End stage renal disease on dialysis Code(s): N18.6 - End stage renal disease; Z99.2 - Dependence on renal dialysis Status: Acute (2) Hemodialysis access, AV graft Code(s): Z99.2 - Dependence on renal dialysis Status: Acute - Plan Patient has sepsis and undergoing treatment with IV vancomycin Patient is seen during dialysis today and ultrafiltration 3.5-4 L is attempted low blood pressure on vasopressors He is scheduled to do dialysis tomorrow then, Friday and Friday Discussed with that his prognosis is guarded and he will need long-term care facility and tracheostomy he may still be on ventilator attempting to wean him off She asked me what will happen if they stop ventilator or dialysis, I told her that he is dependent on these machine and they are keeping him alive, he will not survive for too long without the support of the ventilator or dialysis Apparent HeRO infection and MRSA: Removal of previous left IJ port, s/p partial removal for right arm graft and HeRO outflow component. Ongoing hypotension - follow with ID and Vascular Continue on extra treatment on Friday then he will be back on Friday and Friday schedule --
[2018-06-15] MEDS: Pantoprazole Inj 40 MG Vial IV.PUSH SCH ×2 (11:41→23:15)
--- NOTE | 2018-06-15 12:34 | P.PNGI ---
Subjective Interval history: Currently on ventilator support in the room Randomly opens eyes but very weak and lethargic current hemoglobin 10.5 previous hemoglobin 6.7098 2018 NG tube with feedings trickle attempting to increase Physical Exam Vital signs: Vital Signs 06/14/18 12:00 06/14/18 12:15 06/14/18 12:30 Temperature Pulse Rate 84 83 83 Respiratory Rate 10 L 11 L 11 L Blood Pressure 110/56 L 105/57 L 102/68 Pulse Oximetry 96 96 97 06/14/18 12:45 06/14/18 13:00 06/14/18 13:16 Temperature Pulse Rate 80 81 82 Respiratory Rate 11 L 12 12 Blood Pressure 108/59 L 109/72 120/57 L Pulse Oximetry 98 97 92 L 06/14/18 13:30 06/14/18 13:46 06/14/18 14:00 Temperature Pulse Rate 84 91 H 90 Respiratory Rate 15 13 17 Blood Pressure 126/66 133/69 136/66 Pulse Oximetry 94 L 89 L 89 L 06/14/18 14:15 06/14/18 14:31 06/14/18 15:36 Temperature Pulse Rate 91 H 86 84 Respiratory Rate 19 16 18 Blood Pressure 140/71 129/72 Pulse Oximetry 90 L 93 L 93 L 06/14/18 16:00 06/14/18 16:04 06/14/18 16:15 Temperature Pulse Rate 76 74 73 Respiratory Rate 16 10 L 13 Blood Pressure 77/46 L 84/49 L 80/48 L Pulse Oximetry 94 L 95 96 06/14/18 16:31 06/14/18 16:45 06/14/18 17:00 Temperature Pulse Rate 75 71 70 Respiratory Rate 13 19 17 Blood Pressure 117/64 102/63 106/54 L Pulse Oximetry 96 97 90 L 06/14/18 17:15 06/14/18 17:30 06/14/18 17:46 Temperature Pulse Rate 71 70 74 Respiratory Rate 15 22 12 Blood Pressure 109/59 L 104/72 100/66 Pulse Oximetry 91 L 99 98 06/14/18 18:00 06/14/18 18:16 06/14/18 18:30 Temperature Pulse Rate 71 74 74 Respiratory Rate 17 11 L 12 Blood Pressure 101/55 L 102/67 102/54 L Pulse Oximetry 98 97 97 06/14/18 18:45 06/14/18 19:00 06/14/18 19:15 Temperature Pulse Rate 73 74 73 Respiratory Rate 19 10 L 8 L Blood Pressure 101/57 L 97/53 L 104/56 L Pulse Oximetry 99 99 99 06/14/18 19:30 06/14/18 19:45 06/14/18 20:00 Temperature 98.3 F Pulse Rate 72 70 69 Respiratory Rate 16 15 16 Blood Pressure 92/50 L 103/59 L 98/55 L Pulse Oximetry 99 98 99 06/14/18 20:16 06/14/18 20:21 06/14/18 20:30 Temperature Pulse Rate 71 71 71 Respiratory Rate 16 16 17 Blood Pressure 100/66 105/56 L Pulse Oximetry 100 98 96 06/14/18 20:45 06/14/18 21:00 06/14/18 21:16 Temperature Pulse Rate 70 71 72 Respiratory Rate 17 16 12 Blood Pressure 107/58 L 103/56 L 115/57 L Pulse Oximetry 96 97 96 06/14/18 21:31 06/14/18 21:46 06/14/18 22:00 Temperature Pulse Rate 72 76 76 Respiratory Rate 23 18 16 Blood Pressure 133/60 104/56 L 88/53 L Pulse Oximetry 95 97 98 06/14/18 22:15 06/14/18 22:30 06/14/18 22:45 Temperature Pulse Rate 77 78 76 Respiratory Rate 16 16 16 Blood Pressure 86/51 L 82/47 L 89/52 L Pulse Oximetry 98 98 97 06/14/18 23:00 06/14/18 23:15 06/14/18 23:30 Temperature Pulse Rate 73 75 74 Respiratory Rate 16 13 16 Blood Pressure 89/50 L 94/53 L 81/48 L Pulse Oximetry 97 97 97 06/14/18 23:45 06/15/18 00:00 06/15/18 00:16 Temperature 98.2 F Pulse Rate 73 72 68 Respiratory Rate 16 16 16 Blood Pressure 82/49 L 85/52 L 112/53 L Pulse Oximetry 97 97 96 06/15/18 00:30 06/15/18 00:40 06/15/18 00:46 Temperature Pulse Rate 70 66 Respiratory Rate 16 16 16 Blood Pressure 90/54 L 105/54 L Pulse Oximetry 96 96 96 06/15/18 01:00 06/15/18 01:15 06/15/18 01:30 Temperature Pulse Rate 67 67 67 Respiratory Rate 16 16 16 Blood Pressure 91/52 L 84/52 L 85/52 L Pulse Oximetry 96 95 95 06/15/18 01:45 06/15/18 02:00 06/15/18 02:15 Temperature Pulse Rate 67 66 66 Respiratory Rate 16 16 17 Blood Pressure 86/53 L 87/54 L 95/54 L Pulse Oximetry 95 95 95 06/15/18 02:30 06/15/18 02:45 06/15/18 03:00 Temperature Pulse Rate 67 66 65 Respiratory Rate 17 19 17 Blood Pressure 93/55 L 93/51 L 93/55 L Pulse Oximetry 95 95 95 06/15/18 03:15 06/15/18 03:30 06/15/18 03:45 Temperature Pulse Rate 68 70 64 Respiratory Rate 12 29 H 18 Blood Pressure 104/56 L 117/65 110/57 L Pulse Oximetry 94 L 06/15/18 04:00 06/15/18 04:16 06/15/18 04:22 Temperature 98.6 F Pulse Rate 62 82 79 Respiratory Rate 16 17 16 Blood Pressure 100/56 L 133/82 Pulse Oximetry 99 99 06/15/18 04:31 06/15/18 04:45 06/15/18 05:00 Temperature Pulse Rate 69 66 66 Respiratory Rate 17 15 13 Blood Pressure 105/53 L 101/54 L 102/57 L Pulse Oximetry 100 100 100 06/15/18 05:15 06/15/18 05:32 06/15/18 05:45 Temperature Pulse Rate 66 84 73 Respiratory Rate 16 11 L 19 Blood Pressure 104/57 L 122/57 L 113/58 L Pulse Oximetry 100 100 100 06/15/18 06:00 06/15/18 06:01 06/15/18 06:15 Temperature Pulse Rate 73 72 75 Respiratory Rate 12 13 10 L Blood Pressure 121/58 L 109/56 L Pulse Oximetry 100 100 100 06/15/18 06:31 06/15/18 06:45 06/15/18 07:00 Temperature Pulse Rate 74 72 72 Respiratory Rate 11 L 17 14 Blood Pressure 119/58 L 110/58 L 107/56 L Pulse Oximetry 100 100 100 06/15/18 07:15 06/15/18 07:30 06/15/18 07:45 Temperature Pulse Rate 73 72 74 Respiratory Rate 14 16 14 Blood Pressure 110/56 L 104/55 L 104/59 L Pulse Oximetry 100 100 100 06/15/18 08:00 06/15/18 08:01 06/15/18 08:16 Temperature 98.2 F Pulse Rate 72 73 Respiratory Rate 10 L 18 11 L Blood Pressure 101/53 L 114/56 L Pulse Oximetry 100 100 100 06/15/18 08:30 06/15/18 08:45 06/15/18 08:58 Temperature Pulse Rate 76 71 75 Respiratory Rate 18 17 16 Blood Pressure 131/60 96/54 L Pulse Oximetry 99 100 06/15/18 09:00 06/15/18 09:01 06/15/18 09:16 Temperature Pulse Rate 74 75 84 Respiratory Rate 18 17 22 Blood Pressure 102/58 L 102/58 L 113/60 Pulse Oximetry 100 100 100 06/15/18 09:31 06/15/18 09:46 06/15/18 10:00 Temperature Pulse Rate 75 84 84 Respiratory Rate 16 18 16 Blood Pressure 90/55 L 111/56 L Pulse Oximetry 100 100 100 06/15/18 10:01 06/15/18 11:36 Temperature Pulse Rate 83 Respiratory Rate 14 17 Blood Pressure 100/54 L Pulse Oximetry 100 100 Intake & Output 06/14/18 06/15/18 06/15/18 18:59 06:59 18:59 Intake Total 416 / 416 950 / 950 100 / 100 Output Total 60 / 60 320 / 320 4000 / 4000 Balance 356 / 356 630 / 630 -3900 / -3900 Weight 144.6 kg Intake: IV 200 / 200 650 / 650 100 / 100 Diprivan 1000 mg/100 ml Inj 1, 100 / 100 200 / 200 000 mg In 100 ml @ 5 MCG/KG/MIN 3.87 mls/hr IV.CONT TITRATE PRN Rx#:[id number] Pitressin Inj 40 UNIT In D5W 100 / 100 100 / 100 Inj 98 ML @ 0.01 UNITS/MIN 1.5 mls/hr IV.CONT TITRATE PRN Rx#: [id number] Flexbumin 25% Inj 100 ML @ 60 100 / 100 mls/hr IV.SIG WITH DIALYSIS PRN Rx#:[id number] Diflucan 200 mg Premix Bag 200 100 / 100 MG In Bag/Syringe 1 EACH @ 100 mls/hr IV.SIG Q24H [facility] Rx#: [id number] fentaNYL 10 mcg/mL Premix Drip 250 / 250 2,500 mcg In 250 ml @ 50 MCG/HR 5 mls/hr IV.SIG TITRATE PRN Rx #:[id number] Tube Feeding 106 / 106 180 / 180 Tube Irrigant 120 / 120 Water Bolus Amount 110 / 110 Output: Stool 50 / 50 300 / 300 Hemodialysis Amount 4000 / 4000 Chest Tube Drainage #2 Left Lower Mid-Axillary Chest Other: Date of Last Bowel Movement 06/14/18 06/15/18 06/15/18 - Constitutional moderate distress, morbidly obese, disheveled (Ventilator support currently in the intensive care setting) - Routine HEENT Exam ENT: Present: mucous membranes moist - Routine Neck Exam Present: supple (Short obese) - Routine Respiratory Exam Present: patient mechanically ventilated, decreased breath sounds, rhonchi - Routine Cardiovascular Exam Present: S1, S2 (Distant) - Routine Abdominal Exam Present: soft (Round, taut, hypoactive bowel sounds, Nepro NG feedings trickle feed attempting to increase, hemodialysis current) - Routine Neurological Exam Present: altered mental status (Lethargic) - Urinary Catheter Management Suprapubic Cath placed during this visit: no Results - Labs CBC & Chem 7: 06/15/18 05:20 06/15/18 05:20 Laboratory Results - last 24 hr 06/14/18 06/14/18 06/14/18 12:02 16:35 20:54 WBC RBC Hgb Hct MCV MCH MCHC RDW Plt Count MPV Prelim Diff (Auto) Neut % (Auto) Lymph % (Auto) [place] % (Auto) Eos % (Auto) Baso % (Auto) Neut # (Auto) Lymph # (Auto) [place] # (Auto) Eos # (Auto) Baso # (Auto) WBC Differential Diff Scan Differential Comment Platelet Estimate Platelet Morphology PT INR APTT Sodium Potassium Chloride Carbon Dioxide Anion Gap BUN Creatinine Estimated GFR POC Glucose 149 H 188 H 260 H Random Glucose Calcium Phosphorus Magnesium Total Bilirubin AST ALT Alkaline Phosphatase Total Protein Albumin TSH 06/15/18 06/15/18 06/15/18 00:42 05:15 05:20 WBC 4.9 RBC 3.46 L Hgb 10.5 L Hct 30.6 L MCV 88.4 MCH 30.3 MCHC 34.3 RDW 16.1 Plt Count 184 MPV 7.8 Prelim Diff (Auto) Slide review pending Neut % (Auto) 57.2 Lymph % (Auto) 20.7 [place] % (Auto) 11.2 H Eos % (Auto) 9.8 H Baso % (Auto) 1.1 Neut # (Auto) 2.8 Lymph # (Auto) 1.0 [place] # (Auto) 0.5 Eos # (Auto) 0.5 H Baso # (Auto) 0.1 WBC Differential . Diff Scan Auto diff confirmed Differential Comment . Platelet Estimate Normal Platelet Morphology Enlarged H PT INR APTT Sodium Potassium Chloride Carbon Dioxide Anion Gap BUN Creatinine Estimated GFR POC Glucose 140 H 170 H Random Glucose Calcium Phosphorus Magnesium Total Bilirubin AST ALT Alkaline Phosphatase Total Protein Albumin TSH 06/15/18 06/15/18 06/15/18 05:20 05:20 05:20 WBC RBC Hgb Hct MCV MCH MCHC RDW Plt Count MPV Prelim Diff (Auto) Neut % (Auto) Lymph % (Auto) [place] % (Auto) Eos % (Auto) Baso % (Auto) Neut # (Auto) Lymph # (Auto) [place] # (Auto) Eos # (Auto) Baso # (Auto) WBC Differential Diff Scan Differential Comment Platelet Estimate Platelet Morphology PT 10.5 INR 1.0 APTT 28.2 Sodium 126 L Potassium 4.5 Chloride 89 L Carbon Dioxide 20.7 L Anion Gap 16 H BUN 71 H Creatinine 8.66 H Estimated GFR 7 L POC Glucose Random Glucose 163 H Calcium 9.9 Phosphorus 7.7 H Magnesium 2.0 Total Bilirubin 0.6 AST 17 ALT 12 Alkaline Phosphatase 117 Total Protein 8.9 H Albumin 2.9 L TSH 8.780 H 06/15/18 06/15/18 07:53 11:37 WBC RBC Hgb Hct MCV MCH MCHC RDW Plt Count MPV Prelim Diff (Auto) Neut % (Auto) Lymph % (Auto) [place] % (Auto) Eos % (Auto) Baso % (Auto) Neut # (Auto) Lymph # (Auto) [place] # (Auto) Eos # (Auto) Baso # (Auto) WBC Differential Diff Scan Differential Comment Platelet Estimate Platelet Morphology PT INR APTT Sodium Potassium Chloride Carbon Dioxide Anion Gap BUN Creatinine Estimated GFR POC Glucose 207 H 126 H Random Glucose Calcium Phosphorus Magnesium Total Bilirubin AST ALT Alkaline Phosphatase Total Protein Albumin TSH Microbiology 09/05/18 16:27 Blood - Peripheral Aerobic Blood Culture - Final No growth in 5 days 06/10/18 16:27 Blood - Peripheral Anaerobic Blood Culture - Final No growth in 5 days 06/10/18 16:32 Blood - Peripheral Aerobic Blood Culture - Final No growth in 5 days 06/10/18 16:32 Blood - Peripheral Anaerobic Blood Culture - Final No growth in 5 days - Imaging Impressions Upper Extremity Ultrasound 06/14/18 00:00 CONCLUSION: 1. Very impressive subcutaneous edema. No drainable fluid collection or abscess
--- NOTE | 2018-06-15 13:12 | P.CONGI ---
History of Present Illness Consult date: 06/15/18 Consult reason: PEG tube placement, history of GI bleed Chief complaint: Sepsis, Graft Infection History of Present Illness: This is a unfortunate 73-year-old morbid obese black male who was admitted to the hospital on 05/07/2018. Initially according to the record patient had end- stage renal disease currently receiving hemodialysis and a complicated vascular access with graft replacement, revision. Patient initially was in the intensive care setting for sepsis and shock. Currently patient is still ventilator dependent and according to the record plan is for tracheostomy in the morning. On 06 13 hemoglobin was 6.7 and now is 10.5 and appears stable NG tube now shows Nepro with trickle feeds, attempt being made to go back up to his goal rate. Gastroenterology has been consulted to assist with PEG tube placement. Is also noted in the record patient has history of GI bleed. <Karen Lee - Last Filed: 06/15/18 16:57> Review of Systems All other systems reviewed negative except as stated in HPI <Karen Lee - Last Filed: 06/15/18 16:57> PMF - Medical History Medical History: Medical History (Last Reviewed 06/12/18 @ 09:07 by Irish Benitez) Hemodialysis access, AV graft (Acute) AVF (arteriovenous fistula) DM (diabetes mellitus) ESRD (end stage renal disease) on dialysis History of DVT (deep vein thrombosis) Hypertension Obesity Venous collateral circulation - Tobacco History Smoking Status: Unknown if ever smoked - Alcohol History How Often Do You Have a Drink Containing Alcohol: Unable to Obtain - Substance Use History Substance History: Unable to Obtain <Karen Lee - Last Filed: 06/15/18 16:57> - Medical History Medical History: Medical History (Last Reviewed 06/12/18 @ 09:07 by Irish Benitez) Hemodialysis access, AV graft (Acute) AVF (arteriovenous fistula) DM (diabetes mellitus) ESRD (end stage renal disease) on dialysis History of DVT (deep vein thrombosis) Hypertension Obesity Venous collateral circulation <Jelena Mcduffie - Last Filed: 06/15/18 18:12> Medications and Allergies Active Medications: Active Medications Acetaminophen (Tylenol) 650 mg PO Q6H PRN PRN Reason: PAIN 1-10 AND/OR FEVER >101F Last Admin: 06/06/18 17:36 Dose: 650 mg Acetaminophen (Tylenol) 650 mg PO UNSCH PRN PRN Reason: SEE LABEL COMMENTS Al Hydroxide/Mg Hydroxide (Milk Of [place] Liq) 30 ml PO Q12H PRN PRN Reason: Mild Constipation Albuterol (Albuterol Neb (Prn)) 2.5 mg NEB Q2HR NEB PRN PRN Reason: SHORTNESS OF BREATH/WHEEZING Last Admin: 06/11/18 19:41 Dose: 2.5 mg Albuterol (Duoneb Neb (Fabiola)) 1 ampul NEB Q6HR NEB [facility] Last Admin: 06/15/18 09:00 Dose: 1 ampul Artificial Tears (Genteal Severe Dry Eye Relief 0.3% Opth Gel) 1 drops EACH EYE BID [facility] Last Admin: 06/15/18 08:21 Dose: 1 drops Bisacodyl (Dulcolax Supp) 10 mg RECTAL DAILY PRN PRN Reason: SEVERE CONSITIPATION Calcium Acetate (Phoslo) 667 mg PO TID [facility] Last Admin: 06/15/18 08:22 Dose: 667 mg Clonidine HCl (Catapres) 0.1 mg PO UNSCH PRN PRN Reason: SEE LABEL COMMENTS Dextrose (D50w Vial) 50 ml IV.PUSH UNSCH PRN PRN Reason: PER HYPOGLYCEMIA PROTOCOL Diphenhydramine HCl (Benadryl) 25 mg PO UNSCH PRN PRN Reason: SEE LABEL COMMENTS Epoetin Gregory (Epogen Inj) 10,000 unit IV.PUSH UNSCH PRN PRN Reason: SEE LABEL COMMENTS Last Admin: 06/15/18 09:14 Dose: 10,000 unit Gelatin (Gelfoam 12 Mm/7 Mm Topical) 1 foam TOPICAL PRN PRN PRN Reason: help stop bleeding from site Gentamicin Sulfate (Gentamicin Inj) 20 mg OTHER WITH DIALYSIS PRN PRN Reason: Dwell Gentamycin Lock Last Admin: 06/15/18 09:14 Dose: 20 mg Glucagon (Glucagon Inj) 1 mg OTHER PRN PRN PRN Reason: for Hypoglycemia Protocol Glucagon (Glucagon Inj) 1 mg OTHER PRN PRN PRN Reason: for Hypoglycemia Protocol Heparin Sodium (Porcine) (Heparin Inj) 8,000 units OTHER WITH DIALYSIS PRN PRN Reason: for machine prime Last Admin: 06/05/18 09:39 Dose: 8,000 units Heparin Sodium (Porcine) (Heparin Inj) 1,000 units OTHER WITH DIALYSIS PRN PRN Reason: Dwell Heparin to Fill Catheter Last Admin: 06/10/18 08:42 Dose: 1,000 units Heparin Sodium (Porcine) (Heparin Inj) 0 units IV.FLUSH WITH DIALYSIS PRN PRN Reason: Flush each lumen Hydromorphone HCl (Dilaudid Pf Inj) 0.5 mg IV.PUSH Q1H PRN PRN Reason: pain 8-10 or not taking po Last Admin: 06/12/18 15:46 Dose: 0.5 mg Sodium Chloride (Ns Inj) 100 mls @ 0 mls/hr IV.SIG Q2H [facility] Last Admin: 06/15/18 05:15 Dose: Not Given Albumin Human (Flexbumin 25% Inj) 100 mls @ 60 mls/hr IV.SIG WITH DIALYSIS PRN PRN Reason: hypotension / volume replace Last Admin: 06/15/18 09:15 Dose: 100 mls/hr Sodium Chloride (Ns Inj) 1,000 mls @ 200 mls/hr OTHER .Q5H PRN PRN Reason: for dialyzer flush PRN Last Admin: 06/15/18 09:15 Dose: 200 mls/hr Sodium Chloride (Ns Inj) 1,000 mls @ 0 mls/hr IV.CONT .Q0M PRN PRN Reason: hypotension / volume replace Sodium Chloride (Ns Inj) 1,000 mls @ 0 mls/hr OTHER .Q0M PRN PRN Reason: for prime and rinse back Vancomycin HCl 1,000 mg/ (Sodium Chloride) 250 mls @ 250 mls/hr IV.SIG WITH DIALYSIS [facility] Last Admin: 06/15/18 09:16 Dose: 100 mls/hr Propofol (Diprivan 1000 Mg/100 Ml Inj) 1,000 mg in 100 mls @ 3.87 mls/hr IV.CONT TITRATE PRN; Protocol PRN Reason: Per Protocol Last Titration: 06/15/18 06:00 Dose: 10 mcg/kg/min, 7.74 mls/hr Norepinephrine Bitartrate (Levophed-Dextrose 4 Mg/250 Ml Drip) 4 mg in 250 mls @ 7.5 mls/hr IV.SIG TITRATE PRN; Protocol PRN Reason: Per Protocol Last Titration: 06/15/18 05:45 Dose: 0 mcg/min, 0 mls/hr Fentanyl (Fentanyl 10 Mcg/Ml Premix Drip) 2,500 mcg in 250 mls @ 5 mls/hr IV.SIG TITRATE PRN; Protocol PRN Reason: Per Protocol Last Titration: 06/15/18 06:00 Dose: 150 mcg/hr, 15 mls/hr Vasopressin 40 unit/ Dextrose 100 mls @ 1.5 mls/hr IV.CONT TITRATE PRN; Protocol PRN Reason: Per Protocol Last Titration: 06/15/18 06:00 Dose: 0.04 units/min, 6 mls/hr Sodium Chloride (Ns Inj) 250 mls @ 0 mls/hr IV.SIG BOLUS FABIOLA Sodium Chloride (Ns Inj) 500 mls @ 0 mls/hr IV.SIG BOLUS FABIOLA Last Infusion: 06/11/18 20:03 Dose: Infused Fluconazole 200 mg/ Syringe/ (Bag) 100 mls @ 100 mls/hr IV.SIG Q24H [facility] Last Infusion: 06/14/18 21:56 Dose: Infused Insulin Aspart (Novolog Insulin Correctional Sugar Inj) 0 unit SQ Q4H [facility]; Protocol Last Admin: 06/15/18 08:20 Dose: 10 unit Lactulose (Lactulose Liq) 30 ml PO DAILY PRN PRN Reason: SEVERE CONSITIPATION Mannitol (Mannitol Inj) 12.5 gm IV.PUSH UNSCH PRN PRN Reason: hypotension / volume replace Last Admin: 06/02/18 09:40 Dose: 12.5 gm Miscellaneous Information ([facility] [place] [facility]) 0 each OTHER PRN PRN PRN Reason: SEE LABEL COMMENTS Mupirocin (Bactroban 2% Nasal Oint) 1 applicatio EACH NARE BID [facility] Last Admin: 06/15/18 08:21 Dose: 1 applicatio Nitroglycerin (Nitrostat Sl) 0.4 mg SL Q5M PRN PRN Reason: CHEST PAIN Ondansetron HCl (Zofran Inj) 4 mg IV.PUSH UNSCH PRN PRN Reason: NAUSEA OR VOMITING Pantoprazole Sodium (Protonix Inj) 40 mg IV.PUSH Q12H [facility] Last Admin: 06/15/18 11:41 Dose: 40 mg Rifampin (Rifampin) 300 mg PO Q12HR [facility] Last Admin: 06/15/18 08:22 Dose: 300 mg Senna/Docusate Sodium (Jaida-Colace) 1 tab PO BID [facility] Last Admin: 06/15/18 08:21 Dose: 1 tab Sennosides (Senokot) 17.2 mg PO Q12H PRN PRN Reason: Moderate Constipation Sodium Chloride (Ns Flush) 2 ml IV.FLUSH BID [facility] Last Admin: 06/15/18 08:21 Dose: 2 ml Sodium Chloride (Ns Flush) 2 ml IV.FLUSH PRN PRN PRN Reason: FLUSH AFTER USING IV ACCESS Last Admin: 06/15/18 08:21 Dose: 2 ml Sodium Chloride (Ns Flush) 5 ml IV.FLUSH PRN PRN PRN Reason: flush each lumen during HD Terbutaline Sulfate (Brethine Inj) 1 mg SQ UNSCH PRN PRN Reason: For Extravasation Whey (Beneprotein Powder) 1 packet G-TUBE TID [facility] Last Admin: 06/15/18 08:21 Dose: 1 packet <Karen Lee M - Last Filed: 06/15/18 16:57> Active Medications: Active Medications Acetaminophen (Tylenol) 650 mg PO Q6H PRN PRN Reason: PAIN 1-10 AND/OR FEVER >101F Last Admin: 06/06/18 17:36 Dose: 650 mg Acetaminophen (Tylenol) 650 mg PO UNSCH PRN PRN Reason: SEE LABEL COMMENTS Al Hydroxide/Mg Hydroxide (Milk Of [place] Miranda) 30 ml PO Q12H PRN PRN Reason: Mild Constipation Albuterol (Albuterol Neb (Prn)) 2.5 mg NEB Q2HR NEB PRN PRN Reason: SHORTNESS OF BREATH/WHEEZING Last Admin: 06/11/18 19:41 Dose: 2.5 mg Albuterol (Duoneb Neb (Fabiola)) 1 ampul NEB Q6HR NEB [facility] Last Admin: 06/15/18 14:46 Dose: 1 ampul Artificial Tears (Genteal Severe Dry Eye Relief 0.3% Opth Gel) 1 drops EACH EYE BID [facility] Last Admin: 06/15/18 08:21 Dose: 1 drops Bisacodyl (Dulcolax Supp) 10 mg RECTAL DAILY PRN PRN Reason: SEVERE CONSITIPATION Calcium Acetate (Phoslo) 667 mg PO TID [facility] Last Admin: 06/15/18 17:42 Dose: 667 mg Clonidine HCl (Catapres) 0.1 mg PO UNSCH PRN PRN Reason: SEE LABEL COMMENTS Dextrose (D50w Vial) 50 ml IV.PUSH UNSCH PRN PRN Reason: PER HYPOGLYCEMIA PROTOCOL Diphenhydramine HCl (Benadryl) 25 mg PO UNSCH PRN PRN Reason: SEE LABEL COMMENTS Epoetin Gregory (Epogen Inj) 10,000 unit IV.PUSH UNSCH PRN PRN Reason: SEE LABEL COMMENTS Last Admin: 06/15/18 09:14 Dose: 10,000 unit Gelatin (Gelfoam 12 Mm/7 Mm Topical) 1 foam TOPICAL PRN PRN PRN Reason: help stop bleeding from site Gentamicin Sulfate (Gentamicin Inj) 20 mg OTHER WITH DIALYSIS PRN PRN Reason: Dwell Gentamycin Lock Last Admin: 06/15/18 09:14 Dose: 20 mg Glucagon (Glucagon Inj) 1 mg OTHER PRN PRN PRN Reason: for Hypoglycemia Protocol Glucagon (Glucagon Inj) 1 mg OTHER PRN PRN PRN Reason: for Hypoglycemia Protocol Heparin Sodium (Porcine) (Heparin Inj) 8,000 units OTHER WITH DIALYSIS PRN PRN Reason: for machine prime Last Admin: 06/05/18 09:39 Dose: 8,000 units Heparin Sodium (Porcine) (Heparin Inj) 1,000 units OTHER WITH DIALYSIS PRN PRN Reason: Dwell Heparin to Fill Catheter Last Admin: 06/10/18 08:42 Dose: 1,000 units Heparin Sodium (Porcine) (Heparin Inj) 0 units IV.FLUSH WITH DIALYSIS PRN PRN Reason: Flush each lumen Hydromorphone HCl (Dilaudid Pf Inj) 0.5 mg IV.PUSH Q1H PRN PRN Reason: pain 8-10 or not taking po Last Admin: 06/12/18 15:46 Dose: 0.5 mg Sodium Chloride (Ns Inj) 100 mls @ 0 mls/hr IV.SIG Q2H [facility] Last Admin: 06/15/18 05:15 Dose: Not Given Albumin Human (Flexbumin 25% Inj) 100 mls @ 60 mls/hr IV.SIG WITH DIALYSIS PRN PRN Reason: hypotension / volume replace Last Admin: 06/15/18 09:15 Dose: 100 mls/hr Sodium Chloride (Ns Inj) 1,000 mls @ 200 mls/hr OTHER .Q5H PRN PRN Reason: for dialyzer flush PRN Last Admin: 06/15/18 09:15 Dose: 200 mls/hr Sodium Chloride (Ns Inj) 1,000 mls @ 0 mls/hr IV.CONT .Q0M PRN PRN Reason: hypotension / volume replace Sodium Chloride (Ns Inj) 1,000 mls @ 0 mls/hr OTHER .Q0M PRN PRN Reason: for prime and rinse back Vancomycin HCl 1,000 mg/ (Sodium Chloride) 250 mls @ 250 mls/hr IV.SIG WITH DIALYSIS [facility] Last Admin: 06/15/18 09:16 Dose: 100 mls/hr Propofol (Diprivan 1000 Mg/100 Ml Inj) 1,000 mg in 100 mls @ 3.87 mls/hr IV.CONT TITRATE PRN; Protocol PRN Reason: Per Protocol Last Admin: 06/15/18 16:30 Dose: 10 mcg/kg/min, 7.74 mls/hr Norepinephrine Bitartrate (Levophed-Dextrose 4 Mg/250 Ml Drip) 4 mg in 250 mls @ 7.5 mls/hr IV.SIG TITRATE PRN; Protocol PRN Reason: Per Protocol Last Titration: 06/15/18 05:45 Dose: 0 mcg/min, 0 mls/hr Fentanyl (Fentanyl 10 Mcg/Ml Premix Drip) 2,500 mcg in 250 mls @ 5 mls/hr IV.SIG TITRATE PRN; Protocol PRN Reason: Per Protocol Last Admin: 06/15/18 15:07 Dose: 150 mcg/hr, 15 mls/hr Vasopressin 40 unit/ Dextrose 100 mls @ 1.5 mls/hr IV.CONT TITRATE PRN; Protocol PRN Reason: Per Protocol Last Titration: 06/15/18 06:00 Dose: 0.04 units/min, 6 mls/hr Sodium Chloride (Ns Inj) 250 mls @ 0 mls/hr IV.SIG BOLUS F[facility]IOL[facility] Sodium Chloride (Ns Inj) 500 mls @ 0 mls/hr IV.SIG BOLUS [facility]OL[facility] Last Infusion: 06/11/18 20:03 Dose: Infused Fluconazole 200 mg/ Syringe/ (Bag) 100 mls @ 100 mls/hr IV.SIG Q24H [facility] Last Infusion: 06/14/18 21:56 Dose: Infused Insulin Aspart (Novolog Insulin Correctional Sugar Inj) 0 unit SQ Q4H [facility]; Protocol Last Admin: 06/15/18 16:00 Dose: 5 unit Lactulose (Lactulose Liq) 30 ml PO DAILY PRN PRN Reason: SEVERE CONSITIPATION Mannitol (Mannitol Inj) 12.5 gm IV.PUSH UNSCH PRN PRN Reason: hypotension / volume replace Last Admin: 06/02/18 09:40 Dose: 12.5 gm Miscellaneous Information ([facility]) 0 each OTHER PRN PRN PRN Reason: SEE LABEL COMMENTS Mupirocin (Bactroban 2% Nasal Oint) 1 applicatio EACH NARE BID [facility] Last Admin: 06/15/18 08:21 Dose: 1 applicatio Nitroglycerin (Nitrostat Sl) 0.4 mg SL Q5M PRN PRN Reason: CHEST PAIN Ondansetron HCl (Zofran Inj) 4 mg IV.PUSH UNSCH PRN PRN Reason: NAUSEA OR VOMITING Pantoprazole Sodium (Protonix Inj) 40 mg IV.PUSH Q12H [facility] Last Admin: 06/15/18 11:41 Dose: 40 mg Rifampin (Rifampin) 300 mg PO Q12HR [facility] Last Admin: 06/15/18 08:22 Dose: 300 mg Senna/Docusate Sodium (Jaida-Colace) 1 tab PO BID [facility] Last Admin: 06/15/18 08:21 Dose: 1 tab Sennosides (Senokot) 17.2 mg PO Q12H PRN PRN Reason: Moderate Constipation Sodium Chloride (Ns Flush) 2 ml IV.FLUSH BID [facility] Last Admin: 06/15/18 08:21 Dose: 2 ml Sodium Chloride (Ns Flush) 2 ml IV.FLUSH PRN PRN PRN Reason: FLUSH AFTER USING IV ACCESS Last Admin: 06/15/18 08:21 Dose: 2 ml Sodium Chloride (Ns Flush) 5 ml IV.FLUSH PRN PRN PRN Reason: flush each lumen during HD Terbutaline Sulfate (Brethine Inj) 1 mg SQ UNSCH PRN PRN Reason: For Extravasation Whey (Beneprotein Powder) 1 packet G-TUBE TID [facility] Last Admin: 06/15/18 17:42 Dose: 1 packet <Hemaidan,Ammar - Last Filed: 06/15/18 18:12> Allergies Allergy/AdvReac Type Severity Reaction Status Date / Time No Known Allergies Allergy Unknown Uncoded 12/24/17 14:57 Exam Vital signs: Vital Signs 06/14/18 13:16 06/14/18 13:30 06/14/18 13:46 Temperature Pulse Rate 82 84 91 H Respiratory Rate 12 15 13 Blood Pressure 120/57 L 126/66 133/69 Pulse Oximetry 92 L 94 L 89 L 06/14/18 14:00 06/14/18 14:15 06/14/18 14:31 Temperature Pulse Rate 90 91 H 86 Respiratory Rate 17 19 16 Blood Pressure 136/66 140/71 129/72 Pulse Oximetry 89 L 90 L 93 L 06/14/18 15:36 06/14/18 16:00 06/14/18 16:04 Temperature Pulse Rate 84 76 74 Respiratory Rate 18 16 10 L Blood Pressure 77/46 L 84/49 L Pulse Oximetry 93 L 94 L 95 06/14/18 16:15 06/14/18 16:31 06/14/18 16:45 Temperature Pulse Rate 73 75 71 Respiratory Rate 13 13 19 Blood Pressure 80/48 L 117/64 102/63 Pulse Oximetry 96 96 97 06/14/18 17:00 06/14/18 17:15 06/14/18 17:30 Temperature Pulse Rate 70 71 70 Respiratory Rate 17 15 22 Blood Pressure 106/54 L 109/59 L 104/72 Pulse Oximetry 90 L 91 L 99 06/14/18 17:46 06/14/18 18:00 06/14/18 18:16 Temperature Pulse Rate 74 71 74 Respiratory Rate 12 17 11 L Blood Pressure 100/66 101/55 L 102/67 Pulse Oximetry 98 98 97 06/14/18 18:30 06/14/18 18:45 06/14/18 19:00 Temperature Pulse Rate 74 73 74 Respiratory Rate 12 19 10 L Blood Pressure 102/54 L 101/57 L 97/53 L Pulse Oximetry 97 99 99 06/14/18 19:15 06/14/18 19:30 06/14/18 19:45 Temperature Pulse Rate 73 72 70 Respiratory Rate 8 L 16 15 Blood Pressure 104/56 L 92/50 L 103/59 L Pulse Oximetry 99 99 98 06/14/18 20:00 06/14/18 20:16 06/14/18 20:21 Temperature 98.3 F Pulse Rate 69 71 71 Respiratory Rate 16 16 16 Blood Pressure 98/55 L 100/66 Pulse Oximetry 99 100 98 06/14/18 20:30 06/14/18 20:45 06/14/18 21:00 Temperature Pulse Rate 71 70 71 Respiratory Rate 17 17 16 Blood Pressure 105/56 L 107/58 L 103/56 L Pulse Oximetry 96 96 97 06/14/18 21:16 06/14/18 21:31 06/14/18 21:46 Temperature Pulse Rate 72 72 76 Respiratory Rate 12 23 18 Blood Pressure 115/57 L 133/60 104/56 L Pulse Oximetry 96 95 97 06/14/18 22:00 06/14/18 22:15 06/14/18 22:30 Temperature Pulse Rate 76 77 78 Respiratory Rate 16 16 16 Blood Pressure 88/53 L 86/51 L 82/47 L Pulse Oximetry 98 98 98 06/14/18 22:45 06/14/18 23:00 06/14/18 23:15 Temperature Pulse Rate 76 73 75 Respiratory Rate 16 16 13 Blood Pressure 89/52 L 89/50 L 94/53 L Pulse Oximetry 97 97 97 06/14/18 23:30 06/14/18 23:45 06/15/18 00:00 Temperature 98.2 F Pulse Rate 74 73 72 Respiratory Rate 16 16 16 Blood Pressure 81/48 L 82/49 L 85/52 L Pulse Oximetry 97 97 97 06/15/18 00:16 06/15/18 00:30 06/15/18 00:40 Temperature Pulse Rate 68 70 Respiratory Rate 16 16 16 Blood Pressure 112/53 L 90/54 L Pulse Oximetry 96 96 96 06/15/18 00:46 06/15/18 01:00 06/15/18 01:15 Temperature Pulse Rate 66 67 67 Respiratory Rate 16 16 16 Blood Pressure 105/54 L 91/52 L 84/52 L Pulse Oximetry 96 96 95 06/15/18 01:30 06/15/18 01:45 06/15/18 02:00 Temperature Pulse Rate 67 67 66 Respiratory Rate 16 16 16 Blood Pressure 85/52 L 86/53 L 87/54 L Pulse Oximetry 95 95 95 06/15/18 02:15 06/15/18 02:30 06/15/18 02:45 Temperature Pulse Rate 66 67 66 Respiratory Rate 17 17 19 Blood Pressure 95/54 L 93/55 L 93/51 L Pulse Oximetry 95 95 95 06/15/18 03:00 06/15/18 03:15 06/15/18 03:30 Temperature Pulse Rate 65 68 70 Respiratory Rate 17 12 29 H Blood Pressure 93/55 L 104/56 L 117/65 Pulse Oximetry 95 94 L 06/15/18 03:45 06/15/18 04:00 06/15/18 04:16 Temperature 98.6 F Pulse Rate 64 62 82 Respiratory Rate 18 16 17 Blood Pressure 110/57 L 100/56 L 133/82 Pulse Oximetry 99 06/15/18 04:22 06/15/18 04:31 06/15/18 04:45 Temperature Pulse Rate 79 69 66 Respiratory Rate 16 17 15 Blood Pressure 105/53 L 101/54 L Pulse Oximetry 99 100 100 06/15/18 05:00 06/15/18 05:15 06/15/18 05:32 Temperature Pulse Rate 66 66 84 Respiratory Rate 13 16 11 L Blood Pressure 102/57 L 104/57 L 122/57 L Pulse Oximetry 100 100 100 06/15/18 05:45 06/15/18 06:00 06/15/18 06:01 Temperature Pulse Rate 73 73 72 Respiratory Rate 19 12 13 Blood Pressure 113/58 L 121/58 L Pulse Oximetry 100 100 100 06/15/18 06:15 06/15/18 06:31 06/15/18 06:45 Temperature Pulse Rate 75 74 72 Respiratory Rate 10 L 11 L 17 Blood Pressure 109/56 L 119/58 L 110/58 L Pulse Oximetry 100 100 100 06/15/18 07:00 06/15/18 07:15 06/15/18 07:30 Temperature Pulse Rate 72 73 72 Respiratory Rate 14 14 16 Blood Pressure 107/56 L 110/56 L 104/55 L Pulse Oximetry 100 100 100 06/15/18 07:45 06/15/18 08:00 06/15/18 08:01 Temperature 98.2 F Pulse Rate 74 72 Respiratory Rate 14 10 L 18 Blood Pressure 104/59 L 101/53 L Pulse Oximetry 100 100 100 06/15/18 08:16 06/15/18 08:30 06/15/18 08:45 Temperature Pulse Rate 73 76 71 Respiratory Rate 11 L 18 17 Blood Pressure 114/56 L 131/60 96/54 L Pulse Oximetry 100 99 100 06/15/18 08:58 06/15/18 09:00 06/15/18 09:01 Temperature Pulse Rate 75 74 75 Respiratory Rate 16 18 17 Blood Pressure 102/58 L 102/58 L Pulse Oximetry 100 100 06/15/18 09:16 06/15/18 09:31 06/15/18 09:46 Temperature Pulse Rate 84 75 84 Respiratory Rate 22 16 18 Blood Pressure 113/60 90/55 L 111/56 L Pulse Oximetry 100 100 100 06/15/18 10:00 06/15/18 10:01 06/15/18 10:16 Temperature Pulse Rate 84 83 79 Respiratory Rate 16 14 16 Blood Pressure 100/54 L 101/54 L Pulse Oximetry 100 100 100 06/15/18 10:30 06/15/18 10:46 06/15/18 11:00 Temperature Pulse Rate 77 72 72 Respiratory Rate 17 16 16 Blood Pressure 84/49 L 100/57 L 90/57 L Pulse Oximetry 100 100 100 06/15/18 11:15 06/15/18 11:30 06/15/18 11:36 Temperature Pulse Rate 71 69 Respiratory Rate 16 15 17 Blood Pressure 91/52 L 100/57 L Pulse Oximetry 100 100 100 06/15/18 11:45 06/15/18 12:00 06/15/18 12:14 Temperature 98.4 F Pulse Rate 71 71 68 Respiratory Rate 16 16 16 Blood Pressure 93/52 L 93/51 L Pulse Oximetry 100 100 100 06/15/18 12:15 Temperature Pulse Rate Respiratory Rate Blood Pressure 91/50 L Pulse Oximetry Intake & Output 06/14/18 06/15/18 06/15/18 18:59 06:59 18:59 Intake Total 416 / 416 950 / 950 100 / 100 Output Total 60 / 60 320 / 320 4000 / 4000 Balance 356 / 356 630 / 630 -3900 / -3900 Weight 144.6 kg Intake: IV 200 / 200 650 / 650 100 / 100 Diprivan 1000 mg/100 ml Inj 1, 100 / 100 200 / 200 000 mg In 100 ml @ 5 MCG/KG/MIN 3.87 mls/hr IV.CONT TITRATE PRN Rx#:[id number] Pitressin Inj 40 UNIT In D5W 100 / 100 100 / 100 Inj 98 ML @ 0.01 UNITS/MIN 1.5 mls/hr IV.CONT TITRATE PRN Rx#: [id number] Flexbumin 25% Inj 100 ML @ 60 100 / 100 mls/hr IV.SIG WITH DIALYSIS PRN Rx#:[id number] Diflucan 200 mg Premix Bag 200 100 / 100 MG In Bag/Syringe 1 EACH @ 100 mls/hr IV.SIG Q24H [facility] Rx#: [id number] fentaNYL 10 mcg/mL Premix Drip 250 / 250 2,500 mcg In 250 ml @ 50 MCG/HR 5 mls/hr IV.SIG TITRATE PRN Rx #:[id number] Tube Feeding 106 / 106 180 / 180 Tube Irrigant 120 / 120 Water Bolus Amount 110 / 110 Output: Stool 50 / 50 300 / 300 Hemodialysis Amount 4000 / 4000 Chest Tube Drainage #2 Left Lower Mid-Axillary Chest Other: Date of Last Bowel Movement 06/14/18 06/15/18 06/15/18 - Constitutional mild distress, morbidly obese (Intensive care setting ventilator support) - Routine HEENT Exam ENT: Present: mucous membranes moist - Routine Neck Exam Present: supple (Obese) - Routine Respiratory Exam Present: patient mechanically ventilated, decreased breath sounds - Routine Cardiovascular Exam Present: S1, S2 (Currently receiving dialysis this a.m.) - Routine Abdominal Exam Present: soft (Large, taut, hypoactive bowel sounds, no obvious grimace to abdominal palpation) - Routine Skin Exam Present: pallor (Mucous membranes pale) <Karen Lee - Last Filed: 06/15/18 16:57> Vital signs: Vital Signs 06/14/18 18:16 06/14/18 18:30 06/14/18 18:45 Temperature Pulse Rate 74 74 73 Respiratory Rate 11 L 12 19 Blood Pressure 102/67 102/54 L 101/57 L Pulse Oximetry 97 97 99 06/14/18 19:00 06/14/18 19:15 06/14/18 19:30 Temperature Pulse Rate 74 73 72 Respiratory Rate 10 L 8 L 16 Blood Pressure 97/53 L 104/56 L 92/50 L Pulse Oximetry 99 99 99 06/14/18 19:45 06/14/18 20:00 06/14/18 20:16 Temperature 98.3 F Pulse Rate 70 69 71 Respiratory Rate 15 16 16 Blood Pressure 103/59 L 98/55 L 100/66 Pulse Oximetry 98 99 100 06/14/18 20:21 06/14/18 20:30 06/14/18 20:45 Temperature Pulse Rate 71 71 70 Respiratory Rate 16 17 17 Blood Pressure 105/56 L 107/58 L Pulse Oximetry 98 96 96 06/14/18 21:00 06/14/18 21:16 06/14/18 21:31 Temperature Pulse Rate 71 72 72 Respiratory Rate 16 12 23 Blood Pressure 103/56 L 115/57 L 133/60 Pulse Oximetry 97 96 95 06/14/18 21:46 06/14/18 22:00 06/14/18 22:15 Temperature Pulse Rate 76 76 77 Respiratory Rate 18 16 16 Blood Pressure 104/56 L 88/53 L 86/51 L Pulse Oximetry 97 98 98 06/14/18 22:30 06/14/18 22:45 06/14/18 23:00 Temperature Pulse Rate 78 76 73 Respiratory Rate 16 16 16 Blood Pressure 82/47 L 89/52 L 89/50 L Pulse Oximetry 98 97 97 06/14/18 23:15 06/14/18 23:30 06/14/18 23:45 Temperature Pulse Rate 75 74 73 Respiratory Rate 13 16 16 Blood Pressure 94/53 L 81/48 L 82/49 L Pulse Oximetry 97 97 97 06/15/18 00:00 06/15/18 00:16 06/15/18 00:30 Temperature 98.2 F Pulse Rate 72 68 70 Respiratory Rate 16 16 16 Blood Pressure 85/52 L 112/53 L 90/54 L Pulse Oximetry 97 96 96 06/15/18 00:40 06/15/18 00:46 06/15/18 01:00 Temperature Pulse Rate 66 67 Respiratory Rate 16 16 16 Blood Pressure 105/54 L 91/52 L Pulse Oximetry 96 96 96 06/15/18 01:15 06/15/18 01:30 06/15/18 01:45 Temperature Pulse Rate 67 67 67 Respiratory Rate 16 16 16 Blood Pressure 84/52 L 85/52 L 86/53 L Pulse Oximetry 95 95 95 06/15/18 02:00 06/15/18 02:15 06/15/18 02:30 Temperature Pulse Rate 66 66 67 Respiratory Rate 16 17 17 Blood Pressure 87/54 L 95/54 L 93/55 L Pulse Oximetry 95 95 95 06/15/18 02:45 06/15/18 03:00 06/15/18 03:15 Temperature Pulse Rate 66 65 68 Respiratory Rate 19 17 12 Blood Pressure 93/51 L 93/55 L 104/56 L Pulse Oximetry 95 95 94 L 06/15/18 03:30 06/15/18 03:45 06/15/18 04:00 Temperature 98.6 F Pulse Rate 70 64 62 Respiratory Rate 29 H 18 16 Blood Pressure 117/65 110/57 L 100/56 L Pulse Oximetry 99 06/15/18 04:16 06/15/18 04:22 06/15/18 04:31 Temperature Pulse Rate 82 79 69 Respiratory Rate 17 16 17 Blood Pressure 133/82 105/53 L Pulse Oximetry 99 100 06/15/18 04:45 06/15/18 05:00 06/15/18 05:15 Temperature Pulse Rate 66 66 66 Respiratory Rate 15 13 16 Blood Pressure 101/54 L 102/57 L 104/57 L Pulse Oximetry 100 100 100 06/15/18 05:32 06/15/18 05:45 06/15/18 06:00 Temperature Pulse Rate 84 73 73 Respiratory Rate 11 L 19 12 Blood Pressure 122/57 L 113/58 L Pulse Oximetry 100 100 100 06/15/18 06:01 06/15/18 06:15 06/15/18 06:31 Temperature Pulse Rate 72 75 74 Respiratory Rate 13 10 L 11 L Blood Pressure 121/58 L 109/56 L 119/58 L Pulse Oximetry 100 100 100 06/15/18 06:45 06/15/18 07:00 06/15/18 07:15 Temperature Pulse Rate 72 72 73 Respiratory Rate 17 14 14 Blood Pressure 110/58 L 107/56 L 110/56 L Pulse Oximetry 100 100 100 06/15/18 07:30 06/15/18 07:45 06/15/18 08:00 Temperature 98.2 F Pulse Rate 72 74 72 Respiratory Rate 16 14 10 L Blood Pressure 104/55 L 104/59 L 101/53 L Pulse Oximetry 100 100 100 06/15/18 08:01 06/15/18 08:16 06/15/18 08:30 Temperature Pulse Rate 73 76 Respiratory Rate 18 11 L 18 Blood Pressure 114/56 L 131/60 Pulse Oximetry 100 100 99 06/15/18 08:45 06/15/18 08:58 06/15/18 09:00 Temperature Pulse Rate 71 75 74 Respiratory Rate 17 16 18 Blood Pressure 96/54 L 102/58 L Pulse Oximetry 100 100 06/15/18 09:01 06/15/18 09:16 06/15/18 09:31 Temperature Pulse Rate 75 84 75 Respiratory Rate 17 22 16 Blood Pressure 102/58 L 113/60 90/55 L Pulse Oximetry 100 100 100 06/15/18 09:46 06/15/18 10:00 06/15/18 10:01 Temperature Pulse Rate 84 84 83 Respiratory Rate 18 16 14 Blood Pressure 111/56 L 100/54 L Pulse Oximetry 100 100 100 06/15/18 10:16 06/15/18 10:30 06/15/18 10:46 Temperature Pulse Rate 79 77 72 Respiratory Rate 16 17 16 Blood Pressure 101/54 L 84/49 L 100/57 L Pulse Oximetry 100 100 100 06/15/18 11:00 06/15/18 11:15 06/15/18 11:30 Temperature Pulse Rate 72 71 69 Respiratory Rate 16 16 15 Blood Pressure 90/57 L 91/52 L 100/57 L Pulse Oximetry 100 100 100 06/15/18 11:36 06/15/18 11:45 06/15/18 12:00 Temperature 98.4 F Pulse Rate 71 71 Respiratory Rate 17 16 16 Blood Pressure 93/52 L 93/51 L Pulse Oximetry 100 100 100 06/15/18 12:14 06/15/18 12:15 06/15/18 12:30 Temperature Pulse Rate 68 68 68 Respiratory Rate 16 16 16 Blood Pressure 91/50 L 87/50 L Pulse Oximetry 100 100 100 06/15/18 12:45 06/15/18 13:00 06/15/18 13:16 Temperature Pulse Rate 68 66 67 Respiratory Rate 17 16 17 Blood Pressure 99/58 L 105/56 L 112/55 L Pulse Oximetry 100 100 100 06/15/18 13:30 06/15/18 13:46 06/15/18 14:00 Temperature Pulse Rate 82 85 84 Respiratory Rate 18 17 14 Blood Pressure 105/59 L 106/59 L Pulse Oximetry 100 100 100 06/15/18 14:01 06/15/18 14:15 06/15/18 14:31 Temperature Pulse Rate 83 85 84 Respiratory Rate 16 16 16 Blood Pressure 104/57 L 103/60 110/59 L Pulse Oximetry 100 100 100 06/15/18 14:45 06/15/18 14:46 06/15/18 15:00 Temperature Pulse Rate 82 80 81 Respiratory Rate 17 17 18 Blood Pressure 101/54 L 95/50 L Pulse Oximetry 100 100 06/15/18 15:16 06/15/18 15:31 06/15/18 15:46 Temperature Pulse Rate 89 87 90 Respiratory Rate 16 17 17 Blood Pressure 123/69 107/53 L 110/58 L Pulse Oximetry 100 100 100 06/15/18 16:00 06/15/18 16:01 06/15/18 16:15 Temperature 98.6 F Pulse Rate 91 H 92 H 85 Respiratory Rate 20 27 H 17 Blood Pressure 113/63 111/58 L Pulse Oximetry 100 100 100 06/15/18 16:25 06/15/18 16:30 06/15/18 16:45 Temperature Pulse Rate 85 84 Respiratory Rate 18 11 L 11 L Blood Pressure 110/53 L 103/54 L Pulse Oximetry 100 100 100 06/15/18 17:00 06/15/18 17:16 06/15/18 17:31 Temperature Pulse Rate 88 85 81 Respiratory Rate 12 17 11 L Blood Pressure 105/57 L 96/53 L 100/53 L Pulse Oximetry 100 100 06/15/18 17:45 06/15/18 18:00 Temperature Pulse Rate 80 81 Respiratory Rate 17 15 Blood Pressure 96/55 L 93/52 L Pulse Oximetry 99 99 Intake & Output 06/14/18 06/15/18 06/15/18 18:59 06:59 18:59 Intake Total 416 / 416 950 / 950 1158 / 1158 Output Total 60 / 60 320 / 320 4110 / 4110 Balance 356 / 356 630 / 630 -2952 / -2952 Weight 144.6 kg Intake: IV 200 / 200 650 / 650 450 / 450 Diprivan 1000 mg/100 ml Inj 1, 100 / 100 200 / 200 100 / 100 000 mg In 100 ml @ 5 MCG/KG/MIN 3.87 mls/hr IV.CONT TITRATE PRN Rx#:[id number] Pitressin Inj 40 UNIT In D5W 100 / 100 100 / 100 Inj 98 ML @ 0.01 UNITS/MIN 1.5 mls/hr IV.CONT TITRATE PRN Rx#: [id number] Flexbumin 25% Inj 100 ML @ 60 100 / 100 mls/hr IV.SIG WITH DIALYSIS PRN Rx#:[id number] Diflucan 200 mg Premix Bag 200 100 / 100 MG In Bag/Syringe 1 EACH @ 100 mls/hr IV.SIG Q24H [facility] Rx#: [id number] fentaNYL 10 mcg/mL Premix Drip 250 / 250 250 / 250 2,500 mcg In 250 ml @ 50 MCG/HR 5 mls/hr IV.SIG TITRATE PRN Rx #:[id number] Tube Feeding 106 / 106 180 / 180 448 / 448 Tube Irrigant 120 / 120 Water Bolus Amount 110 / 110 260 / 260 Output: Stool 50 / 50 300 / 300 100 / 100 Hemodialysis Amount 4000 / 4000 Chest Tube Drainage #2 Left Lower Mid-Axillary Chest Other: Date of Last Bowel Movement 06/14/18 06/15/18 06/15/18 <Jelena Mcduffie - Last Filed: 06/15/18 18:12> Results - Labs CBC & Chem 7: 06/15/18 05:20 06/15/18 05:20 Labs: Laboratory Results - last 24 hr 06/14/18 06/14/18 06/15/18 16:35 20:54 00:42 WBC RBC Hgb Hct MCV MCH MCHC RDW Plt Count MPV Prelim Diff (Auto) Neut % (Auto) Lymph % (Auto) [place] % (Auto) Eos % (Auto) Baso % (Auto) Neut # (Auto) Lymph # (Auto) [place] # (Auto) Eos # (Auto) Baso # (Auto) WBC Differential Diff Scan Differential Comment Platelet Estimate Platelet Morphology PT INR APTT Sodium Potassium Chloride Carbon Dioxide Anion Gap BUN Creatinine Estimated GFR POC Glucose 188 H 260 H 140 H Random Glucose Calcium Phosphorus Magnesium Total Bilirubin AST ALT Alkaline Phosphatase Total Protein Albumin TSH 06/15/18 06/15/18 06/15/18 05:15 05:20 05:20 WBC 4.9 RBC 3.46 L Hgb 10.5 L Hct 30.6 L MCV 88.4 MCH 30.3 MCHC 34.3 RDW 16.1 Plt Count 184 MPV 7.8 Prelim Diff (Auto) Slide review pending Neut % (Auto) 57.2 Lymph % (Auto) 20.7 [place] % (Auto) 11.2 H Eos % (Auto) 9.8 H Baso % (Auto) 1.1 Neut # (Auto) 2.8 Lymph # (Auto) 1.0 [place] # (Auto) 0.5 Eos # (Auto) 0.5 H Baso # (Auto) 0.1 WBC Differential . Diff Scan Auto diff confirmed Differential Comment . Platelet Estimate Normal Platelet Morphology Enlarged H PT 10.5 INR 1.0 APTT 28.2 Sodium Potassium Chloride Carbon Dioxide Anion Gap BUN Creatinine Estimated GFR POC Glucose 170 H Random Glucose Calcium Phosphorus Magnesium Total Bilirubin AST ALT Alkaline Phosphatase Total Protein Albumin TSH 06/15/18 06/15/18 06/15/18 05:20 05:20 07:53 WBC RBC Hgb Hct MCV MCH MCHC RDW Plt Count MPV Prelim Diff (Auto) Neut % (Auto) Lymph % (Auto) [place] % (Auto) Eos % (Auto) Baso % (Auto) Neut # (Auto) Lymph # (Auto) [place] # (Auto) Eos # (Auto) Baso # (Auto) WBC Differential Diff Scan Differential Comment Platelet Estimate Platelet Morphology PT INR APTT Sodium 126 L Potassium 4.5 Chloride 89 L Carbon Dioxide 20.7 L Anion Gap 16 H BUN 71 H Creatinine 8.66 H Estimated GFR 7 L POC Glucose 207 H Random Glucose 163 H Calcium 9.9 Phosphorus 7.7 H Magnesium 2.0 Total Bilirubin 0.6 AST 17 ALT 12 Alkaline Phosphatase 117 Total Protein 8.9 H Albumin 2.9 L TSH 8.780 H 06/15/18 11:37 WBC RBC Hgb Hct MCV MCH MCHC RDW Plt Count MPV Prelim Diff (Auto) Neut % (Auto) Lymph % (Auto) [place] % (Auto) Eos % (Auto) Baso % (Auto) Neut # (Auto) Lymph # (Auto) [place] # (Auto) Eos # (Auto) Baso # (Auto) WBC Differential Diff Scan Differential Comment Platelet Estimate Platelet Morphology PT INR APTT Sodium Potassium Chloride Carbon Dioxide Anion Gap BUN Creatinine Estimated GFR POC Glucose 126 H Random Glucose Calcium Phosphorus Magnesium Total Bilirubin AST ALT Alkaline Phosphatase Total Protein Albumin TSH - Imaging Impressions Upper Extremity Ultrasound 06/14/18 00:00 CONCLUSION: 1. Very impressive subcutaneous edema. No drainable fluid collection or abscess <RosaKaren Radha - Last Filed: 06/15/18 16:57> - Labs CBC & Chem 7: 06/15/18 05:20 06/15/18 05:20 Labs: Laboratory Results - last 24 hr 06/14/18 06/15/18 06/15/18 20:54 00:42 05:15 WBC RBC Hgb Hct MCV MCH MCHC RDW Plt Count MPV Prelim Diff (Auto) Neut % (Auto) Lymph % (Auto) [place] % (Auto) Eos % (Auto) Baso % (Auto) Neut # (Auto) Lymph # (Auto) [place] # (Auto) Eos # (Auto) Baso # (Auto) WBC Differential Diff Scan Differential Comment Platelet Estimate Platelet Morphology PT INR APTT Sodium Potassium Chloride Carbon Dioxide Anion Gap BUN Creatinine Estimated GFR POC Glucose 260 H 140 H 170 H Random Glucose Calcium Phosphorus Magnesium Total Bilirubin AST ALT Alkaline Phosphatase Total Protein Albumin TSH 06/15/18 06/15/18 06/15/18 05:20 05:20 05:20 WBC 4.9 RBC 3.46 L Hgb 10.5 L Hct 30.6 L MCV 88.4 MCH 30.3 MCHC 34.3 RDW 16.1 Plt Count 184 MPV 7.8 Prelim Diff (Auto) Slide review pending Neut % (Auto) 57.2 Lymph % (Auto) 20.7 [place] % (Auto) 11.2 H Eos % (Auto) 9.8 H Baso % (Auto) 1.1 Neut # (Auto) 2.8 Lymph # (Auto) 1.0 [place] # (Auto) 0.5 Eos # (Auto) 0.5 H Baso # (Auto) 0.1 WBC Differential . Diff Scan Auto diff confirmed Differential Comment . Platelet Estimate Normal Platelet Morphology Enlarged H PT 10.5 INR 1.0 APTT 28.2 Sodium 126 L Potassium 4.5 Chloride 89 L Carbon Dioxide 20.7 L Anion Gap 16 H BUN 71 H Creatinine 8.66 H Estimated GFR 7 L POC Glucose Random Glucose 163 H Calcium 9.9 Phosphorus 7.7 H Magnesium 2.0 Total Bilirubin 0.6 AST 17 ALT 12 Alkaline Phosphatase 117 Total Protein 8.9 H Albumin 2.9 L TSH 06/15/18 06/15/18 06/15/18 05:20 07:53 11:37 WBC RBC Hgb Hct MCV MCH MCHC RDW Plt Count MPV Prelim Diff (Auto) Neut % (Auto) Lymph % (Auto) [place] % (Auto) Eos % (Auto) Baso % (Auto) Neut # (Auto) Lymph # (Auto) [place] # (Auto) Eos # (Auto) Baso # (Auto) WBC Differential Diff Scan Differential Comment Platelet Estimate Platelet Morphology PT INR APTT Sodium Potassium Chloride Carbon Dioxide Anion Gap BUN Creatinine Estimated GFR POC Glucose 207 H 126 H Random Glucose Calcium Phosphorus Magnesium Total Bilirubin AST ALT Alkaline Phosphatase Total Protein Albumin TSH 8.780 H 06/15/18 15:16 WBC RBC Hgb Hct MCV MCH MCHC RDW Plt Count MPV Prelim Diff (Auto) Neut % (Auto) Lymph % (Auto) [place] % (Auto) Eos % (Auto) Baso % (Auto) Neut # (Auto) Lymph # (Auto) [place] # (Auto) Eos # (Auto) Baso # (Auto) WBC Differential Diff Scan Differential Comment Platelet Estimate Platelet Morphology PT INR APTT Sodium Potassium Chloride Carbon Dioxide Anion Gap BUN Creatinine Estimated GFR POC Glucose 191 H Random Glucose Calcium Phosphorus Magnesium Total Bilirubin AST ALT Alkaline Phosphatase Total Protein Albumin TSH <Jelena Mcduffie - Last Filed: 06/15/18 18:12> Assessment and Plan (1) Nutritional anemia Status: Acute Code(s): D53.9 - Nutritional anemia, unspecified - Plan 73-year-old morbid obese male admitted to the hospital with sepsis and graft infection on 05/27/2018 Still remains on ventilator support and plan for tracheostomy in a.m. Off pressors now Anemia symptomatic could be related to bleed versus his end-stage renal disease. Initially 6.7 now post transfusion 10.5 History of GI bleed per the record, no obvious bleeding NG tube with Nepro trickle feeds, team team to increase volumes today Gastroenterology consult for PEG tube placement Plan Diet, Nepro feedings but n.p.o. at midnight, Consent for PEG tube placement, preferably after tracheostomy, timing TBA Antibiotics per attending, gentamicin Monitor labs Monitor for any obvious bleeding and transfuse as needed PPI, Zofran Supportive care to patient and his family Further recommendations to follow Patient was seen per myself and Dr. Mcduffie, note was written on his behalf <Karen Lee - Last Filed: 06/15/18 16:57> (1) Nutritional anemia Status: Acute Code(s): D53.9 - Nutritional anemia, unspecified - Plan Patient was seen and examined, agree with above note, patient will need PEG tube placement, this will be planned for tomorrow <Jelena Mcduffie - Last Filed: 06/15/18 18:12>
[2018-06-15] MEDS: fentaNYL 10 mcg/mL Premix Drip 2,500 MCG/250 ML BAG IV.SIG PRN (15:07)
--- NOTE | 2018-06-15 17:02 | P.PNGS ---
Subjective Interval history: Intubated/Sedated Physical Exam Vital signs: Vital Signs 06/14/18 17:00 06/14/18 17:15 06/14/18 17:30 Temperature Pulse Rate 70 71 70 Respiratory Rate 17 15 22 Blood Pressure 106/54 L 109/59 L 104/72 Pulse Oximetry 90 L 91 L 99 06/14/18 17:46 06/14/18 18:00 06/14/18 18:16 Temperature Pulse Rate 74 71 74 Respiratory Rate 12 17 11 L Blood Pressure 100/66 101/55 L 102/67 Pulse Oximetry 98 98 97 06/14/18 18:30 06/14/18 18:45 06/14/18 19:00 Temperature Pulse Rate 74 73 74 Respiratory Rate 12 19 10 L Blood Pressure 102/54 L 101/57 L 97/53 L Pulse Oximetry 97 99 99 06/14/18 19:15 06/14/18 19:30 06/14/18 19:45 Temperature Pulse Rate 73 72 70 Respiratory Rate 8 L 16 15 Blood Pressure 104/56 L 92/50 L 103/59 L Pulse Oximetry 99 99 98 06/14/18 20:00 06/14/18 20:16 06/14/18 20:21 Temperature 98.3 F Pulse Rate 69 71 71 Respiratory Rate 16 16 16 Blood Pressure 98/55 L 100/66 Pulse Oximetry 99 100 98 06/14/18 20:30 06/14/18 20:45 06/14/18 21:00 Temperature Pulse Rate 71 70 71 Respiratory Rate 17 17 16 Blood Pressure 105/56 L 107/58 L 103/56 L Pulse Oximetry 96 96 97 06/14/18 21:16 06/14/18 21:31 06/14/18 21:46 Temperature Pulse Rate 72 72 76 Respiratory Rate 12 23 18 Blood Pressure 115/57 L 133/60 104/56 L Pulse Oximetry 96 95 97 06/14/18 22:00 06/14/18 22:15 06/14/18 22:30 Temperature Pulse Rate 76 77 78 Respiratory Rate 16 16 16 Blood Pressure 88/53 L 86/51 L 82/47 L Pulse Oximetry 98 98 98 06/14/18 22:45 06/14/18 23:00 06/14/18 23:15 Temperature Pulse Rate 76 73 75 Respiratory Rate 16 16 13 Blood Pressure 89/52 L 89/50 L 94/53 L Pulse Oximetry 97 97 97 06/14/18 23:30 06/14/18 23:45 06/15/18 00:00 Temperature 98.2 F Pulse Rate 74 73 72 Respiratory Rate 16 16 16 Blood Pressure 81/48 L 82/49 L 85/52 L Pulse Oximetry 97 97 97 06/15/18 00:16 06/15/18 00:30 06/15/18 00:40 Temperature Pulse Rate 68 70 Respiratory Rate 16 16 16 Blood Pressure 112/53 L 90/54 L Pulse Oximetry 96 96 96 06/15/18 00:46 06/15/18 01:00 06/15/18 01:15 Temperature Pulse Rate 66 67 67 Respiratory Rate 16 16 16 Blood Pressure 105/54 L 91/52 L 84/52 L Pulse Oximetry 96 96 95 06/15/18 01:30 06/15/18 01:45 06/15/18 02:00 Temperature Pulse Rate 67 67 66 Respiratory Rate 16 16 16 Blood Pressure 85/52 L 86/53 L 87/54 L Pulse Oximetry 95 95 95 06/15/18 02:15 06/15/18 02:30 06/15/18 02:45 Temperature Pulse Rate 66 67 66 Respiratory Rate 17 17 19 Blood Pressure 95/54 L 93/55 L 93/51 L Pulse Oximetry 95 95 95 06/15/18 03:00 06/15/18 03:15 06/15/18 03:30 Temperature Pulse Rate 65 68 70 Respiratory Rate 17 12 29 H Blood Pressure 93/55 L 104/56 L 117/65 Pulse Oximetry 95 94 L 06/15/18 03:45 06/15/18 04:00 06/15/18 04:16 Temperature 98.6 F Pulse Rate 64 62 82 Respiratory Rate 18 16 17 Blood Pressure 110/57 L 100/56 L 133/82 Pulse Oximetry 99 06/15/18 04:22 06/15/18 04:31 06/15/18 04:45 Temperature Pulse Rate 79 69 66 Respiratory Rate 16 17 15 Blood Pressure 105/53 L 101/54 L Pulse Oximetry 99 100 100 06/15/18 05:00 06/15/18 05:15 06/15/18 05:32 Temperature Pulse Rate 66 66 84 Respiratory Rate 13 16 11 L Blood Pressure 102/57 L 104/57 L 122/57 L Pulse Oximetry 100 100 100 06/15/18 05:45 06/15/18 06:00 06/15/18 06:01 Temperature Pulse Rate 73 73 72 Respiratory Rate 19 12 13 Blood Pressure 113/58 L 121/58 L Pulse Oximetry 100 100 100 06/15/18 06:15 06/15/18 06:31 06/15/18 06:45 Temperature Pulse Rate 75 74 72 Respiratory Rate 10 L 11 L 17 Blood Pressure 109/56 L 119/58 L 110/58 L Pulse Oximetry 100 100 100 06/15/18 07:00 06/15/18 07:15 06/15/18 07:30 Temperature Pulse Rate 72 73 72 Respiratory Rate 14 14 16 Blood Pressure 107/56 L 110/56 L 104/55 L Pulse Oximetry 100 100 100 06/15/18 07:45 06/15/18 08:00 06/15/18 08:01 Temperature 98.2 F Pulse Rate 74 72 Respiratory Rate 14 10 L 18 Blood Pressure 104/59 L 101/53 L Pulse Oximetry 100 100 100 06/15/18 08:16 06/15/18 08:30 06/15/18 08:45 Temperature Pulse Rate 73 76 71 Respiratory Rate 11 L 18 17 Blood Pressure 114/56 L 131/60 96/54 L Pulse Oximetry 100 99 100 06/15/18 08:58 06/15/18 09:00 06/15/18 09:01 Temperature Pulse Rate 75 74 75 Respiratory Rate 16 18 17 Blood Pressure 102/58 L 102/58 L Pulse Oximetry 100 100 06/15/18 09:16 06/15/18 09:31 06/15/18 09:46 Temperature Pulse Rate 84 75 84 Respiratory Rate 22 16 18 Blood Pressure 113/60 90/55 L 111/56 L Pulse Oximetry 100 100 100 06/15/18 10:00 06/15/18 10:01 06/15/18 10:16 Temperature Pulse Rate 84 83 79 Respiratory Rate 16 14 16 Blood Pressure 100/54 L 101/54 L Pulse Oximetry 100 100 100 06/15/18 10:30 06/15/18 10:46 06/15/18 11:00 Temperature Pulse Rate 77 72 72 Respiratory Rate 17 16 16 Blood Pressure 84/49 L 100/57 L 90/57 L Pulse Oximetry 100 100 100 06/15/18 11:15 06/15/18 11:30 06/15/18 11:36 Temperature Pulse Rate 71 69 Respiratory Rate 16 15 17 Blood Pressure 91/52 L 100/57 L Pulse Oximetry 100 100 100 06/15/18 11:45 06/15/18 12:00 06/15/18 12:14 Temperature 98.4 F Pulse Rate 71 71 68 Respiratory Rate 16 16 16 Blood Pressure 93/52 L 93/51 L Pulse Oximetry 100 100 100 06/15/18 12:15 06/15/18 12:30 06/15/18 12:45 Temperature Pulse Rate 68 68 68 Respiratory Rate 16 16 17 Blood Pressure 91/50 L 87/50 L 99/58 L Pulse Oximetry 100 100 100 06/15/18 13:00 06/15/18 13:16 06/15/18 13:30 Temperature Pulse Rate 66 67 82 Respiratory Rate 16 17 18 Blood Pressure 105/56 L 112/55 L 105/59 L Pulse Oximetry 100 100 100 06/15/18 13:46 06/15/18 14:00 06/15/18 14:01 Temperature Pulse Rate 85 84 83 Respiratory Rate 17 14 16 Blood Pressure 106/59 L 104/57 L Pulse Oximetry 100 100 100 06/15/18 14:15 06/15/18 14:31 06/15/18 14:45 Temperature Pulse Rate 85 84 82 Respiratory Rate 16 16 17 Blood Pressure 103/60 110/59 L 101/54 L Pulse Oximetry 100 100 100 06/15/18 14:46 06/15/18 15:00 06/15/18 15:16 Temperature Pulse Rate 80 81 89 Respiratory Rate 17 18 16 Blood Pressure 95/50 L 123/69 Pulse Oximetry 100 100 06/15/18 15:31 06/15/18 15:46 06/15/18 16:00 Temperature Pulse Rate 87 90 91 H Respiratory Rate 17 17 20 Blood Pressure 107/53 L 110/58 L Pulse Oximetry 100 100 100 06/15/18 16:01 06/15/18 16:25 Temperature 98.6 F Pulse Rate 92 H Respiratory Rate 27 H 18 Blood Pressure 113/63 Pulse Oximetry 100 100 Intake & Output 06/14/18 06/15/18 06/15/18 18:59 06:59 18:59 Intake Total 416 / 416 950 / 950 450 / 450 Output Total 60 / 60 320 / 320 4000 / 4000 Balance 356 / 356 630 / 630 -3550 / -3550 Weight 144.6 kg Intake: IV 200 / 200 650 / 650 450 / 450 Diprivan 1000 mg/100 ml Inj 1, 100 / 100 200 / 200 100 / 100 000 mg In 100 ml @ 5 MCG/KG/MIN 3.87 mls/hr IV.CONT TITRATE PRN Rx#:[id number] Pitressin Inj 40 UNIT In D5W 100 / 100 100 / 100 Inj 98 ML @ 0.01 UNITS/MIN 1.5 mls/hr IV.CONT TITRATE PRN Rx#: [id number] Flexbumin 25% Inj 100 ML @ 60 100 / 100 mls/hr IV.SIG WITH DIALYSIS PRN Rx#:[id number] Diflucan 200 mg Premix Bag 200 100 / 100 MG In Bag/Syringe 1 EACH @ 100 mls/hr IV.SIG Q24H [place] Rx#: [id number] fentaNYL 10 mcg/mL Premix Drip 250 / 250 250 / 250 2,500 mcg In 250 ml @ 50 MCG/HR 5 mls/hr IV.SIG TITRATE PRN Rx #:[id number] Tube Feeding 106 / 106 180 / 180 Tube Irrigant 120 / 120 Water Bolus Amount 110 / 110 Output: Stool 50 / 50 300 / 300 Hemodialysis Amount 4000 / 4000 Chest Tube Drainage #2 Left Lower Mid-Axillary Chest Other: Date of Last Bowel Movement 06/14/18 06/15/18 06/15/18 Narrative: Intubated/Sedated Cardio: RRR Resp: symmetric with vent Generalized edema - Urinary Catheter Management Suprapubic Cath placed during this visit: no Assessment and Plan - Assessment (1) Ventilator dependence Code(s): Z99.11 - Dependence on respirator [ventilator] status Status: Acute Plan: 73 year old male with sepsis from infected graft; VDRF in need of trach -Currently on 40%; 5 PEEP -Plan for OR trach tomorrow morning -TF on hold after MN -Obtain consents Discussed with ; she is wondering whether this will help him Will hold off on tracheostomy for now; will be available to perform tracheostomy if she decides to proceed. The exam, history, and the medical decision-making described in the above note were completed with the assistance of the mid-level provider. I reviewed and agree with the findings presented. I attest that I had a [id number] encounter with the patient on the same day, and personally performed and documented my assessment and findings in the medical record.
--- NOTE | 2018-06-15 17:41 | P.PNID ---
Subjective Remarks: afebrile On pressors, vasopressin On CPAP + diarrhea, c.diff neg 2/2 Last + blood clx from 06/04 cont to have diarrhea Antibiotics: vanco rifampin Allergies/Adverse Reactions: Allergies No Known Allergies Allergy (Unknown, Uncoded 12/24/17 14:57) Objective Vital Signs 06/14/18 17:46 06/14/18 18:00 06/14/18 18:16 Temperature Pulse Rate 74 71 74 Respiratory Rate 12 17 11 L Blood Pressure 100/66 101/55 L 102/67 Pulse Oximetry 98 98 97 06/14/18 18:30 06/14/18 18:45 06/14/18 19:00 Temperature Pulse Rate 74 73 74 Respiratory Rate 12 19 10 L Blood Pressure 102/54 L 101/57 L 97/53 L Pulse Oximetry 97 99 99 06/14/18 19:15 06/14/18 19:30 06/14/18 19:45 Temperature Pulse Rate 73 72 70 Respiratory Rate 8 L 16 15 Blood Pressure 104/56 L 92/50 L 103/59 L Pulse Oximetry 99 99 98 06/14/18 20:00 06/14/18 20:16 06/14/18 20:21 Temperature 98.3 F Pulse Rate 69 71 71 Respiratory Rate 16 16 16 Blood Pressure 98/55 L 100/66 Pulse Oximetry 99 100 98 06/14/18 20:30 06/14/18 20:45 06/14/18 21:00 Temperature Pulse Rate 71 70 71 Respiratory Rate 17 17 16 Blood Pressure 105/56 L 107/58 L 103/56 L Pulse Oximetry 96 96 97 06/14/18 21:16 06/14/18 21:31 06/14/18 21:46 Temperature Pulse Rate 72 72 76 Respiratory Rate 12 23 18 Blood Pressure 115/57 L 133/60 104/56 L Pulse Oximetry 96 95 97 06/14/18 22:00 06/14/18 22:15 06/14/18 22:30 Temperature Pulse Rate 76 77 78 Respiratory Rate 16 16 16 Blood Pressure 88/53 L 86/51 L 82/47 L Pulse Oximetry 98 98 98 06/14/18 22:45 06/14/18 23:00 06/14/18 23:15 Temperature Pulse Rate 76 73 75 Respiratory Rate 16 16 13 Blood Pressure 89/52 L 89/50 L 94/53 L Pulse Oximetry 97 97 97 06/14/18 23:30 06/14/18 23:45 06/15/18 00:00 Temperature 98.2 F Pulse Rate 74 73 72 Respiratory Rate 16 16 16 Blood Pressure 81/48 L 82/49 L 85/52 L Pulse Oximetry 97 97 97 06/15/18 00:16 06/15/18 00:30 06/15/18 00:40 Temperature Pulse Rate 68 70 Respiratory Rate 16 16 16 Blood Pressure 112/53 L 90/54 L Pulse Oximetry 96 96 96 06/15/18 00:46 06/15/18 01:00 06/15/18 01:15 Temperature Pulse Rate 66 67 67 Respiratory Rate 16 16 16 Blood Pressure 105/54 L 91/52 L 84/52 L Pulse Oximetry 96 96 95 06/15/18 01:30 06/15/18 01:45 06/15/18 02:00 Temperature Pulse Rate 67 67 66 Respiratory Rate 16 16 16 Blood Pressure 85/52 L 86/53 L 87/54 L Pulse Oximetry 95 95 95 06/15/18 02:15 06/15/18 02:30 06/15/18 02:45 Temperature Pulse Rate 66 67 66 Respiratory Rate 17 17 19 Blood Pressure 95/54 L 93/55 L 93/51 L Pulse Oximetry 95 95 95 06/15/18 03:00 06/15/18 03:15 06/15/18 03:30 Temperature Pulse Rate 65 68 70 Respiratory Rate 17 12 29 H Blood Pressure 93/55 L 104/56 L 117/65 Pulse Oximetry 95 94 L 06/15/18 03:45 06/15/18 04:00 06/15/18 04:16 Temperature 98.6 F Pulse Rate 64 62 82 Respiratory Rate 18 16 17 Blood Pressure 110/57 L 100/56 L 133/82 Pulse Oximetry 99 06/15/18 04:22 06/15/18 04:31 06/15/18 04:45 Temperature Pulse Rate 79 69 66 Respiratory Rate 16 17 15 Blood Pressure 105/53 L 101/54 L Pulse Oximetry 99 100 100 06/15/18 05:00 06/15/18 05:15 06/15/18 05:32 Temperature Pulse Rate 66 66 84 Respiratory Rate 13 16 11 L Blood Pressure 102/57 L 104/57 L 122/57 L Pulse Oximetry 100 100 100 06/15/18 05:45 06/15/18 06:00 06/15/18 06:01 Temperature Pulse Rate 73 73 72 Respiratory Rate 19 12 13 Blood Pressure 113/58 L 121/58 L Pulse Oximetry 100 100 100 06/15/18 06:15 06/15/18 06:31 06/15/18 06:45 Temperature Pulse Rate 75 74 72 Respiratory Rate 10 L 11 L 17 Blood Pressure 109/56 L 119/58 L 110/58 L Pulse Oximetry 100 100 100 06/15/18 07:00 06/15/18 07:15 06/15/18 07:30 Temperature Pulse Rate 72 73 72 Respiratory Rate 14 14 16 Blood Pressure 107/56 L 110/56 L 104/55 L Pulse Oximetry 100 100 100 06/15/18 07:45 06/15/18 08:00 06/15/18 08:01 Temperature 98.2 F Pulse Rate 74 72 Respiratory Rate 14 10 L 18 Blood Pressure 104/59 L 101/53 L Pulse Oximetry 100 100 100 06/15/18 08:16 06/15/18 08:30 06/15/18 08:45 Temperature Pulse Rate 73 76 71 Respiratory Rate 11 L 18 17 Blood Pressure 114/56 L 131/60 96/54 L Pulse Oximetry 100 99 100 06/15/18 08:58 06/15/18 09:00 06/15/18 09:01 Temperature Pulse Rate 75 74 75 Respiratory Rate 16 18 17 Blood Pressure 102/58 L 102/58 L Pulse Oximetry 100 100 06/15/18 09:16 06/15/18 09:31 06/15/18 09:46 Temperature Pulse Rate 84 75 84 Respiratory Rate 22 16 18 Blood Pressure 113/60 90/55 L 111/56 L Pulse Oximetry 100 100 100 06/15/18 10:00 06/15/18 10:01 06/15/18 10:16 Temperature Pulse Rate 84 83 79 Respiratory Rate 16 14 16 Blood Pressure 100/54 L 101/54 L Pulse Oximetry 100 100 100 06/15/18 10:30 06/15/18 10:46 06/15/18 11:00 Temperature Pulse Rate 77 72 72 Respiratory Rate 17 16 16 Blood Pressure 84/49 L 100/57 L 90/57 L Pulse Oximetry 100 100 100 06/15/18 11:15 06/15/18 11:30 06/15/18 11:36 Temperature Pulse Rate 71 69 Respiratory Rate 16 15 17 Blood Pressure 91/52 L 100/57 L Pulse Oximetry 100 100 100 06/15/18 11:45 06/15/18 12:00 06/15/18 12:14 Temperature 98.4 F Pulse Rate 71 71 68 Respiratory Rate 16 16 16 Blood Pressure 93/52 L 93/51 L Pulse Oximetry 100 100 100 06/15/18 12:15 06/15/18 12:30 06/15/18 12:45 Temperature Pulse Rate 68 68 68 Respiratory Rate 16 16 17 Blood Pressure 91/50 L 87/50 L 99/58 L Pulse Oximetry 100 100 100 06/15/18 13:00 06/15/18 13:16 06/15/18 13:30 Temperature Pulse Rate 66 67 82 Respiratory Rate 16 17 18 Blood Pressure 105/56 L 112/55 L 105/59 L Pulse Oximetry 100 100 100 06/15/18 13:46 06/15/18 14:00 06/15/18 14:01 Temperature Pulse Rate 85 84 83 Respiratory Rate 17 14 16 Blood Pressure 106/59 L 104/57 L Pulse Oximetry 100 100 100 06/15/18 14:15 06/15/18 14:31 06/15/18 14:45 Temperature Pulse Rate 85 84 82 Respiratory Rate 16 16 17 Blood Pressure 103/60 110/59 L 101/54 L Pulse Oximetry 100 100 100 06/15/18 14:46 06/15/18 15:00 06/15/18 15:16 Temperature Pulse Rate 80 81 89 Respiratory Rate 17 18 16 Blood Pressure 95/50 L 123/69 Pulse Oximetry 100 100 06/15/18 15:31 06/15/18 15:46 06/15/18 16:00 Temperature Pulse Rate 87 90 91 H Respiratory Rate 17 17 20 Blood Pressure 107/53 L 110/58 L Pulse Oximetry 100 100 100 06/15/18 16:01 06/15/18 16:25 Temperature 98.6 F Pulse Rate 92 H Respiratory Rate 27 H 18 Blood Pressure 113/63 Pulse Oximetry 100 100 Intake & Output 06/14/18 06/15/18 06/15/18 18:59 06:59 18:59 Intake Total 416 / 416 950 / 950 450 / 450 Output Total 60 / 60 320 / 320 4000 / 4000 Balance 356 / 356 630 / 630 -3550 / -3550 Weight 144.6 kg Intake: IV 200 / 200 650 / 650 450 / 450 Diprivan 1000 mg/100 ml Inj 1, 100 / 100 200 / 200 100 / 100 000 mg In 100 ml @ 5 MCG/KG/MIN 3.87 mls/hr IV.CONT TITRATE PRN Rx#:[id number] Pitressin Inj 40 UNIT In D5W 100 / 100 100 / 100 Inj 98 ML @ 0.01 UNITS/MIN 1.5 mls/hr IV.CONT TITRATE PRN Rx#: [id number] Flexbumin 25% Inj 100 ML @ 60 100 / 100 mls/hr IV.SIG WITH DIALYSIS PRN Rx#:[id number] Diflucan 200 mg Premix Bag 200 100 / 100 MG In Bag/Syringe 1 EACH @ 100 mls/hr IV.SIG Q24H TRACIE Rx#: [id number] fentaNYL 10 mcg/mL Premix Drip 250 / 250 250 / 250 2,500 mcg In 250 ml @ 50 MCG/HR 5 mls/hr IV.SIG TITRATE PRN Rx #:[id number] Tube Feeding 106 / 106 180 / 180 Tube Irrigant 120 / 120 Water Bolus Amount 110 / 110 Output: Stool 50 / 50 300 / 300 Hemodialysis Amount 4000 / 4000 Chest Tube Drainage #2 Left Lower Mid-Axillary Chest Other: Date of Last Bowel Movement 06/14/18 06/15/18 06/15/18 06/10/18 16:27 Blood - Peripheral Aerobic Blood Culture - Final No growth in 5 days 06/10/18 16:27 Blood - Peripheral Anaerobic Blood Culture - Final No growth in 5 days 06/10/18 16:32 Blood - Peripheral Aerobic Blood Culture - Final No growth in 5 days 06/10/18 16:32 Blood - Peripheral Anaerobic Blood Culture - Final No growth in 5 days 06/10/18 13:50 Fluid - Pleural fluid Gram Stain - Final 06/10/18 13:50 Fluid - Pleural fluid Body Fluid Culture - Final No growth in 72 hours (aerobically and anaerobically ) Lab - Hematology Results 06/13/18 06/14/18 06/15/18 17:47 05:00 05:20 WBC 5.3 4.9 RBC 2.83 L 3.46 L Hgb 8.9 L D 8.6 L 10.5 L Hct 24.9 L 30.6 L MCV 87.9 88.4 MCH 30.3 30.3 MCHC 34.5 34.3 RDW 15.8 16.1 Plt Count 195 184 MPV 7.6 7.8 Prelim Diff (Auto) Slide review pending Neut % (Auto) 57.2 Lymph % (Auto) 20.7 [place] % (Auto) 11.2 H Eos % (Auto) 9.8 H Baso % (Auto) 1.1 Neut # (Auto) 2.8 Lymph # (Auto) 1.0 [place] # (Auto) 0.5 Eos # (Auto) 0.5 H Baso # (Auto) 0.1 WBC Differential . Diff Scan Auto diff confirmed Differential Comment . Platelet Estimate Normal Platelet Morphology Enlarged H Lab - Chemistry Results 06/13/18 06/14/18 06/14/18 21:03 00:13 05:00 Sodium 129 L Potassium 4.5 Chloride 90 L Carbon Dioxide 21.1 Anion Gap 18 H BUN 64 H Creatinine 7.72 H Estimated GFR 8 L POC Glucose 81 110 Random Glucose 176 H Calcium 10.0 Phosphorus 7.0 H Magnesium 2.2 Total Bilirubin 0.6 AST 20 ALT 14 Alkaline Phosphatase 91 Total Protein 8.9 H Albumin 3.1 L [facility] 06/14/18 06/14/18 06/14/18 05:41 09:07 12:02 Sodium Potassium Chloride Carbon Dioxide Anion Gap BUN Creatinine Estimated GFR POC Glucose 195 H 202 H 149 H Random Glucose Calcium Phosphorus Magnesium Total Bilirubin AST ALT Alkaline Phosphatase Total Protein Albumin [facility] 06/14/18 06/14/18 06/15/18 16:35 20:54 00:42 Sodium Potassium Chloride Carbon Dioxide Anion Gap BUN Creatinine Estimated GFR POC Glucose 188 H 260 H 140 H Random Glucose Calcium Phosphorus Magnesium Total Bilirubin AST ALT Alkaline Phosphatase Total Protein Albumin [facility] 06/15/18 06/15/18 06/15/18 05:15 05:20 05:20 Sodium 126 L Potassium 4.5 Chloride 89 L Carbon Dioxide 20.7 L Anion Gap 16 H BUN 71 H Creatinine 8.66 H Estimated GFR 7 L POC Glucose 170 H Random Glucose 163 H Calcium 9.9 Phosphorus 7.7 H Magnesium 2.0 Total Bilirubin 0.6 AST 17 ALT 12 Alkaline Phosphatase 117 Total Protein 8.9 H Albumin 2.9 L TSH 8.780 H 06/15/18 06/15/18 06/15/18 07:53 11:37 15:16 Sodium Potassium Chloride Carbon Dioxide Anion Gap BUN Creatinine Estimated GFR POC Glucose 207 H 126 H 191 H Random Glucose Calcium Phosphorus Magnesium Total Bilirubin AST ALT Alkaline Phosphatase Total Protein Albumin TSH Imaging: ITS Impressions Abdomen X-Ray 05/31/18 00:00 CONCLUSION: 1. Suction-type NGT in the stomach. Chest CT 06/10/18 12:01 CONCLUSION: 1. Bilateral parenchymal infiltrates are seen as well as bilateral moderate effusions left greater than right. 2. Pulmonary nodules are identified including cavitary lesions. Upper Extremity Ultrasound 06/14/18 00:00 CONCLUSION: 1. Very impressive subcutaneous edema. No drainable fluid collection or abscess Chest X-Ray 06/14/18 06:00 CONCLUSION: 1. ET tube in good position. 2. Persistent and stable infiltrates, left greater than right. Physical Exam: GENERAL: NAD sedated. intubated on vent SKIN: Warm and dry. No rash HEAD: Atraumatic. Normocephalic. EYES: Pupils equal and round. No scleral icterus. No injection or drainage. ENT: No nasal bleeding or discharge. Mucous membranes pink and moist. NECK: Trachea midline. No JVD. CARDIOVASCULAR: Regular rate and rhythm. Chest incision is open and packed, minim,al serosang drainage on the packing RESPIRATORY: No accessory muscle use. Crackes to auscultation. Breath sounds equal bilaterally. CT in place in L side [facility] very cloudy sedrosangious d/c GASTROINTESTINAL: Abdomen soft, non-tender, nondistended. Hepatic and splenic margins not palpable. MUSCULOSKELETAL: Extremities without clubbing, cyanosis, +edema. 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 and MRSA bacteremia MRSA sepsis: persistent bacteremia- wilmer 2/2 retained infected graft all cultures remain positive including the one from 06/03 - sustained bacteremia: 2 cultures by 6 days Indwelling prosthetic vascular device (complex AV graft extending to R atrium ) Infected PD vascu lar synthetic graft: abscess vs infected hematoma - sp partial removal US RUE showed 4.5 fluid collection repeat RUE US showed no drainable collection just soft tissue edema Cultures growing C.albicans along with MRSA Sepsis, septic shock; clincially resolving ESRD, on HD Acute VDRF; sp reintubation PNA, GNBs. Both isolates S to CFTX MRSA PNA Persistend hypotensiotn, back on pressors Clearly another septic episode: persistent graft infx vs new infection pt remains critical and unstable wi th persistent hypotensio requiring pressors, dose increased to 13 mcgs Pleural effusion cont vancomycin: keep trough 15-20 cont rifampin Needs removal of the remainder of the graft to control sepsis consider RAN repeat CXR ? CT RUE (? US exam was limited 2/2 swelling)
[2018-06-15] MEDS: FLUCONAZOLE IV.SIG SCH (21:04)
[2018-06-16] MEDS: Propofol 1000 mg/100 ml Inj 1,000 MG/100 ML BOTTLE IV.CONT PRN ×3 (02:05→21:05)
[2018-06-16 04:39] LABS: Hematocrit 25.2 % (39.0-51.0); Hemoglobin 8.6 gm/dL (13.0-17.0); Mean Corpuscular HGB Conc 34.2 % (32.0-36.0); Mean Corpuscular Hemoglobin 30.2 pg (27.0-34.0); Mean Corpuscular Volume 88.4 fL (80.0-100.0); Mean Platelet Volume 7.5 fL (7.0-11.0); Platelet Count 195 th/mm3 (150-450); Red Blood Count 2.85 mil/mm3 (4.50-5.90); Red Cell Distribution Width 15.8 % (11.6-17.2); White Blood Count 6.1 th/mm3 (4.0-11.0)
[2018-06-16] MEDS: Sodium Chlor 0.9% Inj 100 ML IV.SIG SCH ×3 (04:39→19:08)
[2018-06-16] MEDS: fentaNYL 10 mcg/mL Premix Drip 2,500 MCG/250 ML BAG IV.SIG PRN (04:39)
[2018-06-16 04:50] LABS: INR 1.1 Ratio; Prothrombin Time 10.7 sec (9.8-11.6)
[2018-06-16 05:23] LABS: Alanine Aminotransferase 12 U/L (12-78); Albumin 3.2 g/dL (3.4-5.0); Alkaline Phosphatase 134 U/L (45-117); Anion Gap 14 meq/L (5-15); Aspartate Aminotransferase 19 U/L (15-37); Blood Urea Nitrogen 59 mg/dL (7-18); Calcium 9.8 mg/dL (8.5-10.1); Carbon Dioxide 23.3 meq/L (21.0-32.0); Chloride 92 meq/L (98-107); Glomerular Filtration Rate 9 mL/min (>89); Glucose,Random 198 mg/dL (74-106); Potassium 4.4 meq/L (3.5-5.1); Sodium 129 meq/L (136-145); Total Protein 9.6 g/dL (6.4-8.2)
[2018-06-16] MEDS: Insulin NovoLOG Aspart Correctional Sugar Inj SQ SCH ×5 (05:51→20:16)
[2018-06-16] MEDS: Hypromellose 0.3% Opth Gel 10 GM Bottle EACH EYE SCH ×2 (08:08→20:17)
[2018-06-16] MEDS: Beneprotein Powder Packet G-TUBE SCH ×3 (08:08→17:40)
[2018-06-16] MEDS: Mupirocin 2% Nasal Oint Topical Syringe EACH NARE SCH ×2 (08:08→20:17)
[2018-06-16] MEDS: Calcium Acetate 667 MG Capsule PO SCH ×3 (08:09→17:40)
[2018-06-16] MEDS: Senna/Docusate Sodium 8.6/50 MG Tablet PO SCH ×2 (08:09→20:18)
[2018-06-16] MEDS: Pantoprazole Inj 40 MG Vial IV.PUSH SCH (10:53)
--- NOTE | 2018-06-16 10:57 | P.PNVS ---
Subjective Subjective/Hospital Course: 73 s/p R UE AV graft removal Pt remains intubated/sedated and on pressors R chest to arm incision intact w/o erythema/drainage Objective Vital Signs / I&O: Vital Signs 06/15/18 11:00 06/15/18 11:15 06/15/18 11:30 Temperature Pulse Rate 72 71 69 Respiratory Rate 16 16 15 Blood Pressure 90/57 L 91/52 L 100/57 L Pulse Oximetry 100 100 100 06/15/18 11:36 06/15/18 11:45 06/15/18 12:00 Temperature 98.4 F Pulse Rate 71 71 Respiratory Rate 17 16 16 Blood Pressure 93/52 L 93/51 L Pulse Oximetry 100 100 100 06/15/18 12:14 06/15/18 12:15 06/15/18 12:30 Temperature Pulse Rate 68 68 68 Respiratory Rate 16 16 16 Blood Pressure 91/50 L 87/50 L Pulse Oximetry 100 100 100 06/15/18 12:45 06/15/18 13:00 06/15/18 13:16 Temperature Pulse Rate 68 66 67 Respiratory Rate 17 16 17 Blood Pressure 99/58 L 105/56 L 112/55 L Pulse Oximetry 100 100 100 06/15/18 13:30 06/15/18 13:46 06/15/18 14:00 Temperature Pulse Rate 82 85 84 Respiratory Rate 18 17 14 Blood Pressure 105/59 L 106/59 L Pulse Oximetry 100 100 100 06/15/18 14:01 06/15/18 14:15 06/15/18 14:31 Temperature Pulse Rate 83 85 84 Respiratory Rate 16 16 16 Blood Pressure 104/57 L 103/60 110/59 L Pulse Oximetry 100 100 100 06/15/18 14:45 06/15/18 14:46 06/15/18 15:00 Temperature Pulse Rate 82 80 81 Respiratory Rate 17 17 18 Blood Pressure 101/54 L 95/50 L Pulse Oximetry 100 100 06/15/18 15:16 06/15/18 15:31 06/15/18 15:46 Temperature Pulse Rate 89 87 90 Respiratory Rate 16 17 17 Blood Pressure 123/69 107/53 L 110/58 L Pulse Oximetry 100 100 100 06/15/18 16:00 06/15/18 16:01 06/15/18 16:15 Temperature 98.6 F Pulse Rate 91 H 92 H 85 Respiratory Rate 20 27 H 17 Blood Pressure 113/63 111/58 L Pulse Oximetry 100 100 100 06/15/18 16:25 06/15/18 16:30 06/15/18 16:45 Temperature Pulse Rate 85 84 Respiratory Rate 18 11 L 11 L Blood Pressure 110/53 L 103/54 L Pulse Oximetry 100 100 100 06/15/18 17:00 06/15/18 17:16 06/15/18 17:31 Temperature Pulse Rate 88 85 81 Respiratory Rate 12 17 11 L Blood Pressure 105/57 L 96/53 L 100/53 L Pulse Oximetry 100 100 06/15/18 17:45 06/15/18 18:00 06/15/18 19:42 Temperature Pulse Rate 80 81 Respiratory Rate 17 15 16 Blood Pressure 96/55 L 93/52 L Pulse Oximetry 99 99 100 06/15/18 20:00 06/15/18 21:45 06/15/18 22:00 Temperature 98.4 F Pulse Rate 80 79 78 Respiratory Rate 11 L 16 11 L Blood Pressure 105/56 L 89/53 L Pulse Oximetry 100 100 06/15/18 22:25 06/16/18 00:00 06/16/18 01:25 Temperature Pulse Rate 59 L Respiratory Rate 16 16 16 Blood Pressure 89/55 L Pulse Oximetry 100 100 100 06/16/18 02:00 06/16/18 03:01 06/16/18 03:15 Temperature Pulse Rate 66 66 Respiratory Rate 14 16 Blood Pressure 113/76 112/58 L 104/57 L Pulse Oximetry 97 99 06/16/18 03:31 06/16/18 03:42 06/16/18 03:45 Temperature Pulse Rate 88 106 H 94 H Respiratory Rate 10 L 22 18 Blood Pressure 130/72 145/70 H Pulse Oximetry 72 L 95 06/16/18 04:00 06/16/18 04:15 06/16/18 04:30 Temperature 98.6 F Pulse Rate 97 H 85 77 Respiratory Rate 21 10 L 14 Blood Pressure 111/58 L 83/50 L 80/47 L Pulse Oximetry 85 L 95 97 06/16/18 04:36 06/16/18 04:45 06/16/18 05:00 Temperature Pulse Rate 72 67 Respiratory Rate 18 12 10 L Blood Pressure 113/59 L 133/62 Pulse Oximetry 95 90 L 89 L 09/11/18 05:10 06/16/18 05:15 06/16/18 05:31 Temperature Pulse Rate 73 86 Respiratory Rate 13 13 22 Blood Pressure 96/55 L 131/75 Pulse Oximetry 99 06/16/18 05:45 06/16/18 06:00 06/16/18 06:15 Temperature Pulse Rate 81 76 76 Respiratory Rate 19 16 16 Blood Pressure 126/64 118/87 127/59 L Pulse Oximetry 98 97 93 L 06/16/18 06:30 06/16/18 06:45 06/16/18 07:00 Temperature Pulse Rate 73 72 74 Respiratory Rate 15 16 11 L Blood Pressure 122/64 120/67 Pulse Oximetry 93 L 97 88 L 06/16/18 07:01 06/16/18 07:15 06/16/18 07:31 Temperature Pulse Rate 72 79 78 Respiratory Rate 15 13 16 Blood Pressure 105/53 L 133/61 133/63 Pulse Oximetry 89 L 96 98 06/16/18 07:45 06/16/18 08:00 06/16/18 08:15 Temperature 97.9 F Pulse Rate 82 82 79 Respiratory Rate 17 29 H 20 Blood Pressure 141/67 H 145/66 H 141/75 H Pulse Oximetry 96 94 L 94 L 06/16/18 08:30 06/16/18 08:45 06/16/18 09:00 Temperature Pulse Rate 80 101 H 84 Respiratory Rate 24 25 H 24 Blood Pressure 146/77 H 135/66 147/77 H Pulse Oximetry 94 L 93 L 95 06/16/18 09:16 06/16/18 09:30 06/16/18 09:46 Temperature Pulse Rate 92 H 85 103 H Respiratory Rate 28 H 29 H 36 H Blood Pressure 147/70 H 137/73 157/98 H Pulse Oximetry 96 93 L 100 06/16/18 09:48 06/16/18 10:00 06/16/18 10:01 Temperature Pulse Rate 98 H 91 H 89 Respiratory Rate 32 H 25 H 23 Blood Pressure 137/70 Pulse Oximetry 97 97 97 Intake & Output 06/15/18 06/16/18 06/16/18 18:59 06:59 18:59 Intake Total 1158 / 1158 2410 / 2410 Output Total 4110 / 4110 225 / 225 Balance -2952 / -2952 2185 / 2185 Weight 139.4 kg Intake: IV 450 / 450 1900 / 1900 Diprivan 1000 mg/100 ml Inj 1, 100 / 100 100 / 100 000 mg In 100 ml @ 5 MCG/KG/MIN 3.87 mls/hr IV.CONT TITRATE PRN Rx#:[id number] Pitressin Inj 40 UNIT In D5W 100 / 100 Inj 98 ML @ 0.01 UNITS/MIN 1.5 mls/hr IV.CONT TITRATE PRN Rx#: [id number] Flexbumin 25% Inj 100 ML @ 60 100 / 100 100 / 100 mls/hr IV.SIG WITH DIALYSIS PRN Rx#:[id number] Diflucan 200 mg Premix Bag 200 100 / 100 MG In Bag/Syringe 1 EACH @ 100 mls/hr IV.SIG Q24H TRACIE Rx#: [id number] Vancomycin Inj 1,000 MG In NS 250 / 250 Inj 250 ML @ 250 mls/hr IV.SIG WITH DIALYSIS TRACIE Rx#:[id number] fentaNYL 10 mcg/mL Premix Drip 250 / 250 250 / 250 2,500 mcg In 250 ml @ 50 MCG/HR 5 mls/hr IV.SIG TITRATE PRN Rx #:[id number] NS Inj 1,000 ML @ 200 mls/hr 1000 / 1000 OTHER .Q5H PRN Rx#:[id number] Tube Feeding 448 / 448 270 / 270 Tube Irrigant 0 / 0 Water Bolus Amount 260 / 260 240 / 240 Output: Stool 100 / 100 225 / 225 Hemodialysis Amount 4000 / 4000 Chest Tube Drainage 10 / 10 0 / 0 #2 Left Lower Mid-Axillary 10 / 10 0 / 0 Chest Other: Date of Last Bowel Movement 06/15/18 06/16/18 06/16/18 Physical Exam: 73/M sedated on a vent Resp even and clear Irregular HR Incision R chest to arm intact w/o R/D R arm swelling noted Palpable R/L Radial pulse (2+) Laboratory Results - last 24 hr 06/15/18 06/15/18 06/15/18 11:37 15:16 20:46 WBC RBC Hgb Hct MCV MCH MCHC RDW Plt Count MPV PT INR APTT Sodium Potassium Chloride Carbon Dioxide Anion Gap BUN Creatinine Estimated GFR POC Glucose 126 H 191 H 247 H Random Glucose Calcium Total Bilirubin AST ALT Alkaline Phosphatase Total Protein Albumin 0906/16/18 06/16/18 23:09 04:00 04:00 WBC 6.1 RBC 2.85 L Hgb 8.6 L Hct 25.2 L MCV 88.4 MCH 30.2 MCHC 34.2 RDW 15.8 Plt Count 195 MPV 7.5 PT 10.7 INR 1.1 APTT 30.0 Sodium Potassium Chloride Carbon Dioxide Anion Gap BUN Creatinine Estimated GFR POC Glucose 208 H Random Glucose Calcium Total Bilirubin AST ALT Alkaline Phosphatase Total Protein Albumin 06/16/18 06/16/18 04:00 07:25 WBC RBC Hgb Hct MCV MCH MCHC RDW Plt Count MPV PT INR APTT Sodium 129 L Potassium 4.4 Chloride 92 L Carbon Dioxide 23.3 Anion Gap 14 BUN 59 H Creatinine 7.58 H Estimated GFR 9 L POC Glucose 234 H Random Glucose 198 H Calcium 9.8 Total Bilirubin 0.5 AST 19 ALT 12 Alkaline Phosphatase 134 H Total Protein 9.6 H D Albumin 3.2 L Microbiology 06/10/18 16:27 Aerobic Blood Culture - Final Blood - Peripheral No growth in 5 days Anaerobic Blood Culture - Final No growth in 5 days 06/10/18 16:32 Aerobic Blood Culture - Final Blood - Peripheral No growth in 5 days Anaerobic Blood Culture - Final No growth in 5 days Impressions Upper Extremity Ultrasound 06/14/18 00:00 CONCLUSION: 1. Very impressive subcutaneous edema. No drainable fluid collection or abscess Assessment and Plan - Assessment (1) Septic shock Code(s): A41.9 - Sepsis, unspecified organism; R65.21 - Severe sepsis with septic shock Status: Deleted (2) Arteriovenous graft infection Code(s): T82.7XXA - Infection and inflammatory reaction due to other cardiac and vascular devices, implants and grafts, initial encounter Status: Deleted - Plan Pt s/p excision of R neck and arm graft Pt continues to attempt slowly weaning off the ventilator R chest/arm incision healing w/o infectious appearance Plan Continue daily w/d dressing- R neck Continue antibiotics Discussed Trach placement w/ Questions answered and Pt's would like to move forward w/ placement Will continue to follow Eliane Rucker NP [facility] [phone]
--- NOTE | 2018-06-16 12:10 | P.PNGI ---
Subjective Interval history: Patient remains in the intensive care intubated. Appears very weak and randomly opens eyes and does attempt to get up Family present current hemoglobin 8.6, PT/INR 1.1 <Karen Lee M - Last Filed: 06/16/18 12:16> Physical Exam Vital signs: Vital Signs 06/15/18 12:14 06/15/18 12:15 06/15/18 12:30 Temperature Pulse Rate 68 68 68 Respiratory Rate 16 16 16 Blood Pressure 91/50 L 87/50 L Pulse Oximetry 100 100 100 06/15/18 12:45 06/15/18 13:00 06/15/18 13:16 Temperature Pulse Rate 68 66 67 Respiratory Rate 17 16 17 Blood Pressure 99/58 L 105/56 L 112/55 L Pulse Oximetry 100 100 100 06/15/18 13:30 06/15/18 13:46 06/15/18 14:00 Temperature Pulse Rate 82 85 84 Respiratory Rate 18 17 14 Blood Pressure 105/59 L 106/59 L Pulse Oximetry 100 100 100 06/15/18 14:01 06/15/18 14:15 06/15/18 14:31 Temperature Pulse Rate 83 85 84 Respiratory Rate 16 16 16 Blood Pressure 104/57 L 103/60 110/59 L Pulse Oximetry 100 100 100 06/15/18 14:45 06/15/18 14:46 06/15/18 15:00 Temperature Pulse Rate 82 80 81 Respiratory Rate 17 17 18 Blood Pressure 101/54 L 95/50 L Pulse Oximetry 100 100 06/15/18 15:16 06/15/18 15:31 06/15/18 15:46 Temperature Pulse Rate 89 87 90 Respiratory Rate 16 17 17 Blood Pressure 123/69 107/53 L 110/58 L Pulse Oximetry 100 100 100 06/15/18 16:00 06/15/18 16:01 06/15/18 16:15 Temperature 98.6 F Pulse Rate 91 H 92 H 85 Respiratory Rate 20 27 H 17 Blood Pressure 113/63 111/58 L Pulse Oximetry 100 100 100 06/15/18 16:25 06/15/18 16:30 06/15/18 16:45 Temperature Pulse Rate 85 84 Respiratory Rate 18 11 L 11 L Blood Pressure 110/53 L 103/54 L Pulse Oximetry 100 100 100 06/15/18 17:00 06/15/18 17:16 06/15/18 17:31 Temperature Pulse Rate 88 85 81 Respiratory Rate 12 17 11 L Blood Pressure 105/57 L 96/53 L 100/53 L Pulse Oximetry 100 100 06/15/18 17:45 06/15/18 18:00 06/15/18 19:42 Temperature Pulse Rate 80 81 Respiratory Rate 17 15 16 Blood Pressure 96/55 L 93/52 L Pulse Oximetry 99 99 100 06/15/18 20:00 06/15/18 21:45 06/15/18 22:00 Temperature 98.4 F Pulse Rate 80 79 78 Respiratory Rate 11 L 16 11 L Blood Pressure 105/56 L 89/53 L Pulse Oximetry 100 100 06/15/18 22:25 06/16/18 00:00 06/16/18 01:25 Temperature Pulse Rate 59 L Respiratory Rate 16 16 16 Blood Pressure 89/55 L Pulse Oximetry 100 100 100 06/16/18 02:00 06/16/18 03:01 06/16/18 03:15 Temperature Pulse Rate 66 66 Respiratory Rate 14 16 Blood Pressure 113/76 112/58 L 104/57 L Pulse Oximetry 97 99 06/16/18 03:31 06/16/18 03:42 06/16/18 03:45 Temperature Pulse Rate 88 106 H 94 H Respiratory Rate 10 L 22 18 Blood Pressure 130/72 145/70 H Pulse Oximetry 72 L 95 06/16/18 04:00 06/16/18 04:15 06/16/18 04:30 Temperature 98.6 F Pulse Rate 97 H 85 77 Respiratory Rate 21 10 L 14 Blood Pressure 111/58 L 83/50 L 80/47 L Pulse Oximetry 85 L 95 97 06/16/18 04:36 06/16/18 04:45 06/16/18 05:00 Temperature Pulse Rate 72 67 Respiratory Rate 18 12 10 L Blood Pressure 113/59 L 133/62 Pulse Oximetry 95 90 L 89 L 06/16/18 05:10 06/16/18 05:15 06/16/18 05:31 Temperature Pulse Rate 73 86 Respiratory Rate 13 13 22 Blood Pressure 96/55 L 131/75 Pulse Oximetry 99 06/16/18 05:45 06/16/18 06:00 06/16/18 06:15 Temperature Pulse Rate 81 76 76 Respiratory Rate 19 16 16 Blood Pressure 126/64 118/87 127/59 L Pulse Oximetry 98 97 93 L 06/16/18 06:30 06/16/18 06:45 06/16/18 07:00 Temperature Pulse Rate 73 72 74 Respiratory Rate 15 16 11 L Blood Pressure 122/64 120/67 Pulse Oximetry 93 L 97 88 L 06/16/18 07:01 06/16/18 07:15 06/16/18 07:31 Temperature Pulse Rate 72 79 78 Respiratory Rate 15 13 16 Blood Pressure 105/53 L 133/61 133/63 Pulse Oximetry 89 L 96 98 06/16/18 07:45 06/16/18 08:00 06/16/18 08:15 Temperature 97.9 F Pulse Rate 82 82 79 Respiratory Rate 17 29 H 20 Blood Pressure 141/67 H 145/66 H 141/75 H Pulse Oximetry 96 94 L 94 L 06/16/18 08:30 06/16/18 08:45 06/16/18 09:00 Temperature Pulse Rate 80 101 H 84 Respiratory Rate 24 25 H 24 Blood Pressure 146/77 H 135/66 147/77 H Pulse Oximetry 94 L 93 L 95 06/16/18 09:16 06/16/18 09:30 06/16/18 09:46 Temperature Pulse Rate 92 H 85 103 H Respiratory Rate 28 H 29 H 36 H Blood Pressure 147/70 H 137/73 157/98 H Pulse Oximetry 96 93 L 100 06/16/18 09:48 06/16/18 10:00 06/16/18 10:01 Temperature Pulse Rate 98 H 91 H 89 Respiratory Rate 32 H 25 H 23 Blood Pressure 137/70 Pulse Oximetry 97 97 97 06/16/18 12:06 Temperature Pulse Rate Respiratory Rate 18 Blood Pressure Pulse Oximetry 97 Intake & Output 06/15/18 06/16/18 06/16/18 18:59 06:59 18:59 Intake Total 1158 / 1158 2410 / 2410 100 / 100 Output Total 4110 / 4110 225 / 225 Balance -2952 / -2952 2185 / 2185 100 / 100 Weight 139.4 kg Intake: IV 450 / 450 1900 / 1900 100 / 100 Diprivan 1000 mg/100 ml Inj 1, 100 / 100 100 / 100 100 / 100 000 mg In 100 ml @ 5 MCG/KG/MIN 3.87 mls/hr IV.CONT TITRATE PRN Rx#:[id number] Pitressin Inj 40 UNIT In D5W 100 / 100 Inj 98 ML @ 0.01 UNITS/MIN 1.5 mls/hr IV.CONT TITRATE PRN Rx#: [id number] Flexbumin 25% Inj 100 ML @ 60 100 / 100 100 / 100 mls/hr IV.SIG WITH DIALYSIS PRN Rx#:[id number] Diflucan 200 mg Premix Bag 200 100 / 100 MG In Bag/Syringe 1 EACH @ 100 mls/hr IV.SIG Q24H TRACIE Rx#: [id number] Vancomycin Inj 1,000 MG In NS 250 / 250 Inj 250 ML @ 250 mls/hr IV.SIG WITH DIALYSIS TRACIE Rx#:[id number] fentaNYL 10 mcg/mL Premix Drip 250 / 250 250 / 250 2,500 mcg In 250 ml @ 50 MCG/HR 5 mls/hr IV.SIG TITRATE PRN Rx #:[id number] NS Inj 1,000 ML @ 200 mls/hr 1000 / 1000 OTHER .Q5H PRN Rx#:[id number] Tube Feeding 448 / 448 270 / 270 Tube Irrigant 0 / 0 Water Bolus Amount 260 / 260 240 / 240 Output: Stool 100 / 100 225 / 225 Hemodialysis Amount 4000 / 4000 Chest Tube Drainage 0 / 0 #2 Left Lower Mid-Axillary 0 / 0 Chest Other: Date of Last Bowel Movement 06/15/18 06/16/18 06/16/18 - Constitutional mild distress, morbidly obese, disheveled - Routine HEENT Exam ENT: Present: mucous membranes moist - Routine Respiratory Exam Present: patient mechanically ventilated, decreased breath sounds - Routine Cardiovascular Exam Present: S1, S2 - Routine Abdominal Exam Present: soft (Round, obese, mild distention. Current tube feeds have been on 45 cc an hour but are turned off for now due to weaning trials) - Routine Skin Exam Present: pallor - Urinary Catheter Management Suprapubic Cath placed during this visit: no <Karen Lee - Last Filed: 06/16/18 12:16> Vital signs: Vital Signs 06/15/18 16:25 06/15/18 16:30 06/15/18 16:45 Temperature Pulse Rate 85 84 Respiratory Rate 18 11 L 11 L Blood Pressure 110/53 L 103/54 L Pulse Oximetry 100 100 100 06/15/18 17:00 06/15/18 17:16 06/15/18 17:31 Temperature Pulse Rate 88 85 81 Respiratory Rate 12 17 11 L Blood Pressure 105/57 L 96/53 L 100/53 L Pulse Oximetry 100 100 06/15/18 17:45 06/15/18 18:00 06/15/18 19:42 Temperature Pulse Rate 80 81 Respiratory Rate 17 15 16 Blood Pressure 96/55 L 93/52 L Pulse Oximetry 99 99 100 06/15/18 20:00 06/15/18 21:45 06/15/18 22:00 Temperature 98.4 F Pulse Rate 80 79 78 Respiratory Rate 11 L 16 11 L Blood Pressure 105/56 L 89/53 L Pulse Oximetry 100 100 06/15/18 22:25 06/16/18 00:00 06/16/18 01:25 Temperature Pulse Rate 59 L Respiratory Rate 16 16 16 Blood Pressure 89/55 L Pulse Oximetry 100 100 100 06/16/18 02:00 06/16/18 03:01 06/16/18 03:15 Temperature Pulse Rate 66 66 Respiratory Rate 14 16 Blood Pressure 113/76 112/58 L 104/57 L Pulse Oximetry 97 99 06/16/18 03:31 06/16/18 03:42 06/16/18 03:45 Temperature Pulse Rate 88 106 H 94 H Respiratory Rate 10 L 22 18 Blood Pressure 130/72 145/70 H Pulse Oximetry 72 L 95 06/16/18 04:00 06/16/18 04:15 06/16/18 04:30 Temperature 98.6 F Pulse Rate 97 H 85 77 Respiratory Rate 21 10 L 14 Blood Pressure 111/58 L 83/50 L 80/47 L Pulse Oximetry 85 L 95 97 06/16/18 04:36 06/16/18 04:45 06/16/18 05:00 Temperature Pulse Rate 72 67 Respiratory Rate 18 12 10 L Blood Pressure 113/59 L 133/62 Pulse Oximetry 95 90 L 89 L 06/16/18 05:10 06/16/18 05:15 06/16/18 05:31 Temperature Pulse Rate 73 86 Respiratory Rate 13 13 22 Blood Pressure 96/55 L 131/75 Pulse Oximetry 99 06/16/18 05:45 06/16/18 06:00 06/16/18 06:15 Temperature Pulse Rate 81 76 76 Respiratory Rate 19 16 16 Blood Pressure 126/64 118/87 127/59 L Pulse Oximetry 98 97 93 L 06/16/18 06:30 06/16/18 06:45 06/16/18 07:00 Temperature Pulse Rate 73 72 74 Respiratory Rate 15 16 11 L Blood Pressure 122/64 120/67 Pulse Oximetry 93 L 97 88 L 06/16/18 07:01 06/16/18 07:15 06/16/18 07:31 Temperature Pulse Rate 72 79 78 Respiratory Rate 15 13 16 Blood Pressure 105/53 L 133/61 133/63 Pulse Oximetry 89 L 96 98 06/16/18 07:45 06/16/18 08:00 06/16/18 08:15 Temperature 97.9 F Pulse Rate 82 82 79 Respiratory Rate 17 29 H 20 Blood Pressure 141/67 H 145/66 H 141/75 H Pulse Oximetry 96 94 L 94 L 06/16/18 08:30 06/16/18 08:45 06/16/18 09:00 Temperature Pulse Rate 80 101 H 84 Respiratory Rate 24 25 H 24 Blood Pressure 146/77 H 135/66 147/77 H Pulse Oximetry 94 L 93 L 95 06/16/18 09:16 06/16/18 09:30 06/16/18 09:46 Temperature Pulse Rate 92 H 85 103 H Respiratory Rate 28 H 29 H 36 H Blood Pressure 147/70 H 137/73 157/98 H Pulse Oximetry 96 93 L 100 06/16/18 09:48 06/16/18 10:00 06/16/18 10:01 Temperature Pulse Rate 98 H 91 H 89 Respiratory Rate 32 H 25 H 23 Blood Pressure 137/70 Pulse Oximetry 97 97 97 06/16/18 10:15 06/16/18 10:30 06/16/18 10:46 Temperature Pulse Rate 89 88 85 Respiratory Rate 25 H 19 27 H Blood Pressure 133/63 128/62 113/71 Pulse Oximetry 94 L 95 97 06/16/18 11:00 06/16/18 11:15 06/16/18 11:30 Temperature Pulse Rate 81 84 83 Respiratory Rate 11 L 14 12 Blood Pressure 105/60 113/59 L 118/59 L Pulse Oximetry 96 95 97 06/16/18 11:45 06/16/18 12:00 06/16/18 12:06 Temperature 98.1 F Pulse Rate 81 78 Respiratory Rate 11 L 18 18 Blood Pressure 120/58 L 117/61 Pulse Oximetry 95 97 97 06/16/18 12:15 06/16/18 12:30 06/16/18 12:45 Temperature Pulse Rate 78 73 77 Respiratory Rate 20 18 21 Blood Pressure 119/61 110/59 L 119/63 Pulse Oximetry 97 97 98 06/16/18 13:00 06/16/18 13:16 06/16/18 13:31 Temperature Pulse Rate 76 70 70 Respiratory Rate 19 15 20 Blood Pressure 116/59 L 155/65 H 113/65 Pulse Oximetry 97 99 99 06/16/18 13:45 06/16/18 14:00 06/16/18 14:15 Temperature Pulse Rate 73 68 68 Respiratory Rate 18 29 H 14 Blood Pressure 124/64 91/51 L 101/56 L Pulse Oximetry 99 100 99 06/16/18 14:30 06/16/18 14:42 06/16/18 14:45 Temperature Pulse Rate 71 70 72 Respiratory Rate 18 21 19 Blood Pressure 107/63 95/56 L 114/58 L Pulse Oximetry 99 100 100 06/16/18 15:00 06/16/18 15:15 06/16/18 15:28 Temperature Pulse Rate 72 77 73 Respiratory Rate 15 17 19 Blood Pressure 113/55 L 100/56 L 111/55 L Pulse Oximetry 100 99 100 06/16/18 15:30 06/16/18 15:36 06/16/18 15:45 Temperature Pulse Rate 73 71 72 Respiratory Rate 17 19 17 Blood Pressure 107/59 L 105/59 L 87/53 L Pulse Oximetry 100 100 100 06/16/18 16:00 06/16/18 16:01 06/16/18 16:11 Temperature 97.8 F Pulse Rate 83 83 78 Respiratory Rate 20 18 20 Blood Pressure 103/56 L Pulse Oximetry 100 98 100 Intake & Output 06/15/18 06/16/18 06/16/18 18:59 06:59 18:59 Intake Total 1158 / 1158 2410 / 2410 400 / 400 Output Total 4110 / 4110 225 / 225 5000 / 5000 Balance -2952 / -2952 2185 / 2185 -4600 / -4600 Weight 139.4 kg Intake: IV 450 / 450 1900 / 1900 400 / 400 Diprivan 1000 mg/100 ml Inj 1, 100 / 100 100 / 100 100 / 100 000 mg In 100 ml @ 5 MCG/KG/MIN 3.87 mls/hr IV.CONT TITRATE PRN Rx#:[id number] Pitressin Inj 40 UNIT In D5W 100 / 100 100 / 100 Inj 98 ML @ 0.01 UNITS/MIN 1.5 mls/hr IV.CONT TITRATE PRN Rx#: [id number] Flexbumin 25% Inj 100 ML @ 60 100 / 100 100 / 100 200 / 200 mls/hr IV.SIG WITH DIALYSIS PRN Rx#:[id number] Diflucan 200 mg Premix Bag 200 100 / 100 MG In Bag/Syringe 1 EACH @ 100 mls/hr IV.SIG Q24H [facility]ACIE Rx#: [id number] Vancomycin Inj 1,000 MG In NS 250 / 250 Inj 250 ML @ 250 mls/hr IV.SIG WITH DIALYSIS TRACIE Rx#:[id number] fentaNYL 10 mcg/mL Premix Drip 250 / 250 250 / 250 2,500 mcg In 250 ml @ 50 MCG/HR 5 mls/hr IV.SIG TITRATE PRN Rx #:[id number] NS Inj 1,000 ML @ 200 mls/hr 1000 / 1000 OTHER .Q5H PRN Rx#:[id number] Tube Feeding 448 / 448 270 / 270 Tube Irrigant 0 / 0 Water Bolus Amount 260 / 260 240 / 240 Output: Stool 100 / 100 225 / 225 Hemodialysis Amount 4000 / 4000 5000 / 5000 Chest Tube Drainage 10 / 10 0 / 0 #2 Left Lower Mid-Axillary 10 / 10 0 / 0 Chest Other: Date of Last Bowel Movement 06/15/18 06/16/18 06/16/18 - Urinary Catheter Management Suprapubic Cath placed during this visit: no <Justin Meier - Last Filed: 06/16/18 16:21> Results - Labs CBC & Chem 7: 06/16/18 04:00 06/16/18 04:00 Laboratory Results - last 24 hr 06/15/18 06/15/18 06/15/18 15:16 20:46 23:09 WBC RBC Hgb Hct MCV MCH MCHC RDW Plt Count MPV PT INR APTT Sodium Potassium Chloride Carbon Dioxide Anion Gap BUN Creatinine Estimated GFR POC Glucose 191 H 247 H 208 H Random Glucose Calcium Total Bilirubin AST ALT Alkaline Phosphatase Total Protein Albumin 06/16/18 06/16/18 06/16/18 04:00 04:00 04:00 WBC 6.1 RBC 2.85 L Hgb 8.6 L Hct 25.2 L MCV 88.4 MCH 30.2 MCHC 34.2 RDW 15.8 Plt Count 195 MPV 7.5 PT 10.7 INR 1.1 APTT 30.0 Sodium 129 L Potassium 4.4 Chloride 92 L Carbon Dioxide 23.3 Anion Gap 14 BUN 59 H Creatinine 7.58 H Estimated GFR 9 L POC Glucose Random Glucose 198 H Calcium 9.8 Total Bilirubin 0.5 AST 19 ALT 12 Alkaline Phosphatase 134 H Total Protein 9.6 H D Albumin 3.2 L 06/16/18 06/16/18 07:25 11:27 WBC RBC Hgb Hct MCV MCH MCHC RDW Plt Count MPV PT INR APTT Sodium Potassium Chloride Carbon Dioxide Anion Gap BUN Creatinine Estimated GFR POC Glucose 234 H 162 H Random Glucose Calcium Total Bilirubin AST ALT Alkaline Phosphatase Total Protein Albumin Microbiology 06/10/18 16:27 Blood - Peripheral Aerobic Blood Culture - Final No growth in 5 days 06/10/18 16:27 Blood - Peripheral Anaerobic Blood Culture - Final No growth in 5 days 06/10/18 16:32 Blood - Peripheral Aerobic Blood Culture - Final No growth in 5 days 06/10/18 16:32 Blood - Peripheral Anaerobic Blood Culture - Final No growth in 5 days <Karen Lee - Last Filed: 06/16/18 12:16> - Labs CBC & Chem 7: 06/16/18 04:00 06/16/18 04:00 Laboratory Results - last 24 hr 06/15/18 06/15/18 06/16/18 20:46 23:09 04:00 WBC RBC Hgb Hct MCV MCH MCHC RDW Plt Count MPV PT 10.7 INR 1.1 APTT 30.0 Sodium Potassium Chloride Carbon Dioxide Anion Gap BUN Creatinine Estimated GFR POC Glucose 247 H 208 H Random Glucose Calcium Total Bilirubin AST ALT Alkaline Phosphatase Total Protein Albumin 06/16/18 06/16/18 06/16/18 04:00 04:00 07:25 WBC 6.1 RBC 2.85 L Hgb 8.6 L Hct 25.2 L MCV 88.4 MCH 30.2 MCHC 34.2 RDW 15.8 Plt Count 195 MPV 7.5 PT INR APTT Sodium 129 L Potassium 4.4 Chloride 92 L Carbon Dioxide 23.3 Anion Gap 14 BUN 59 H Creatinine 7.58 H Estimated GFR 9 L POC Glucose 234 H Random Glucose 198 H Calcium 9.8 Total Bilirubin 0.5 AST 19 ALT 12 Alkaline Phosphatase 134 H Total Protein 9.6 H D Albumin 3.2 L 06/16/18 06/16/18 11:27 15:58 WBC RBC Hgb Hct MCV MCH MCHC RDW Plt Count MPV PT INR APTT Sodium Potassium Chloride Carbon Dioxide Anion Gap BUN Creatinine Estimated GFR POC Glucose 162 H 162 H Random Glucose Calcium Total Bilirubin AST ALT Alkaline Phosphatase Total Protein Albumin <Justin Meier - Last Filed: 06/16/18 16:21> Assessment and Plan (1) Nutritional anemia Status: Acute Code(s): D53.9 - Nutritional anemia, unspecified - Plan 73-year-old morbid obese male admitted to the hospital with sepsis and graft infection on 05/27/2018 Still remains on ventilator support and plan for tracheostomy in a.m. Off pressors now Anemia symptomatic could be related to bleed versus his end-stage renal disease. Initially 6.7 now post transfusion 10.5 History of GI bleed per the record, no obvious bleeding NG tube with Nepro trickle feeds, team team to increase volumes today Gastroenterology consult for PEG tube placement 06/16/2018, initially planning for PEG tube placement but on hold for now. Trach also on hold but tentatively looking at if wants to proceed. Currently patient is on weaning trials this a.m.. Feedings have been managed at 45 cc an hour, plan to restart after weaning trials today. Patient is moving around but still appears to be very weak and and with altered mental status. No obvious changes in any GI symptoms, further recommendations to follow for possible PEG placement after family discussion with senior software architect. Patient will receive dialysis tomorrow. Plan Diet, n.p.o. during weaning trials PEG tube placement, pending, on hold for now revisiting possible thirsty Antibiotics per attending, gentamicin Monitor labs, transfuse if needed and notify GI for any obvious active bleeding PPI Anti-medics Supportive care Patient was seen per myself and Dr. Meier, note was written on his behalf <Karen Lee - Last Filed: 06/16/18 12:16> (1) Nutritional anemia Status: Acute Code(s): D53.9 - Nutritional anemia, unspecified - Attending Attestation Consent obtained for , will arrange EGD/PEG if continued stable during this time. <Justin Meier - Last Filed: 06/16/18 16:21>
[2018-06-16] MEDS: Vasopressin Inj 40 UNIT in Dextrose 5% in Water Inj 98 ML IV.CONT PRN ×2 (12:33)
--- NOTE | 2018-06-16 12:55 | P.PNNP ---
Subjective Interval history: Patient is on ventilator Physical Exam Vital signs: Vital Signs 06/15/18 13:00 06/15/18 13:16 06/15/18 13:30 Temperature Pulse Rate 66 67 82 Respiratory Rate 16 17 18 Blood Pressure 105/56 L 112/55 L 105/59 L Pulse Oximetry 100 100 100 06/15/18 13:46 06/15/18 14:00 06/15/18 14:01 Temperature Pulse Rate 85 84 83 Respiratory Rate 17 14 16 Blood Pressure 106/59 L 104/57 L Pulse Oximetry 100 100 100 06/15/18 14:15 06/15/18 14:31 06/15/18 14:45 Temperature Pulse Rate 85 84 82 Respiratory Rate 16 16 17 Blood Pressure 103/60 110/59 L 101/54 L Pulse Oximetry 100 100 100 06/15/18 14:46 06/15/18 15:00 06/15/18 15:16 Temperature Pulse Rate 80 81 89 Respiratory Rate 17 18 16 Blood Pressure 95/50 L 123/69 Pulse Oximetry 100 100 06/15/18 15:31 06/15/18 15:46 06/15/18 16:00 Temperature Pulse Rate 87 90 91 H Respiratory Rate 17 17 20 Blood Pressure 107/53 L 110/58 L Pulse Oximetry 100 100 100 06/15/18 16:01 06/15/18 16:15 06/15/18 16:25 Temperature 98.6 F Pulse Rate 92 H 85 Respiratory Rate 27 H 17 18 Blood Pressure 113/63 111/58 L Pulse Oximetry 100 100 100 06/15/18 16:30 06/15/18 16:45 06/15/18 17:00 Temperature Pulse Rate 85 84 88 Respiratory Rate 11 L 11 L 12 Blood Pressure 110/53 L 103/54 L 105/57 L Pulse Oximetry 100 100 100 06/15/18 17:16 06/15/18 17:31 06/15/18 17:45 Temperature Pulse Rate 85 81 80 Respiratory Rate 17 11 L 17 Blood Pressure 96/53 L 100/53 L 96/55 L Pulse Oximetry 100 99 06/15/18 18:00 06/15/18 19:42 06/15/18 20:00 Temperature 98.4 F Pulse Rate 81 80 Respiratory Rate 15 16 11 L Blood Pressure 93/52 L 105/56 L Pulse Oximetry 99 100 100 06/15/18 21:45 06/15/18 22:00 06/15/18 22:25 Temperature Pulse Rate 79 78 Respiratory Rate 16 11 L 16 Blood Pressure 89/53 L Pulse Oximetry 100 100 06/16/18 00:00 06/16/18 01:25 06/16/18 02:00 Temperature Pulse Rate 59 L 66 Respiratory Rate 16 16 14 Blood Pressure 89/55 L 113/76 Pulse Oximetry 100 100 97 06/16/18 03:01 06/16/18 03:15 06/16/18 03:31 Temperature Pulse Rate 66 88 Respiratory Rate 16 10 L Blood Pressure 112/58 L 104/57 L 130/72 Pulse Oximetry 99 72 L 06/16/18 03:42 06/16/18 03:45 06/16/18 04:00 Temperature 98.6 F Pulse Rate 106 H 94 H 97 H Respiratory Rate 22 18 21 Blood Pressure 145/70 H 111/58 L Pulse Oximetry 95 85 L 06/16/18 04:15 06/16/18 04:30 06/16/18 04:36 Temperature Pulse Rate 85 77 Respiratory Rate 10 L 14 18 Blood Pressure 83/50 L 80/47 L Pulse Oximetry 95 97 95 06/16/18 04:45 06/16/18 05:00 06/16/18 05:10 Temperature Pulse Rate 72 67 Respiratory Rate 12 10 L 13 Blood Pressure 113/59 L 133/62 Pulse Oximetry 90 L 89 L 06/16/18 05:15 06/16/18 05:31 06/16/18 05:45 Temperature Pulse Rate 73 86 81 Respiratory Rate 13 22 19 Blood Pressure 96/55 L 131/75 126/64 Pulse Oximetry 99 98 06/16/18 06:00 06/16/18 06:15 06/16/18 06:30 Temperature Pulse Rate 76 76 73 Respiratory Rate 16 16 15 Blood Pressure 118/87 127/59 L 122/64 Pulse Oximetry 97 93 L 93 L 06/16/18 06:45 06/16/18 07:00 06/16/18 07:01 Temperature Pulse Rate 72 74 72 Respiratory Rate 16 11 L 15 Blood Pressure 120/67 105/53 L Pulse Oximetry 97 88 L 89 L 06/16/18 07:15 06/16/18 07:31 06/16/18 07:45 Temperature Pulse Rate 79 78 82 Respiratory Rate 13 16 17 Blood Pressure 133/61 133/63 141/67 H Pulse Oximetry 96 98 96 06/16/18 08:00 06/16/18 08:15 06/16/18 08:30 Temperature 97.9 F Pulse Rate 82 79 80 Respiratory Rate 29 H 20 24 Blood Pressure 145/66 H 141/75 H 146/77 H Pulse Oximetry 94 L 94 L 94 L 06/16/18 08:45 06/16/18 09:00 06/16/18 09:16 Temperature Pulse Rate 101 H 84 92 H Respiratory Rate 25 H 24 28 H Blood Pressure 135/66 147/77 H 147/70 H Pulse Oximetry 93 L 95 96 06/16/18 09:30 06/16/18 09:46 06/16/18 09:48 Temperature Pulse Rate 85 103 H 98 H Respiratory Rate 29 H 36 H 32 H Blood Pressure 137/73 157/98 H Pulse Oximetry 93 L 100 97 06/16/18 10:00 06/16/18 10:01 06/16/18 10:15 Temperature Pulse Rate 91 H 89 89 Respiratory Rate 25 H 23 25 H Blood Pressure 137/70 133/63 Pulse Oximetry 97 97 94 L 06/16/18 10:30 06/16/18 10:46 06/16/18 11:00 Temperature Pulse Rate 88 85 81 Respiratory Rate 19 27 H 11 L Blood Pressure 128/62 113/71 105/60 Pulse Oximetry 95 97 96 06/16/18 11:15 06/16/18 11:30 06/16/18 11:45 Temperature Pulse Rate 84 83 81 Respiratory Rate 14 12 11 L Blood Pressure 113/59 L 118/59 L 120/58 L Pulse Oximetry 95 97 95 06/16/18 12:00 06/16/18 12:06 06/16/18 12:15 Temperature 98.1 F Pulse Rate 78 78 Respiratory Rate 18 18 20 Blood Pressure 117/61 119/61 Pulse Oximetry 97 97 97 Intake & Output 06/15/18 06/16/18 06/16/18 18:59 06:59 18:59 Intake Total 1158 / 1158 2410 / 2410 200 / 200 Output Total 4110 / 4110 225 / 225 Balance -2952 / -2952 2185 / 2185 200 / 200 Weight 139.4 kg Intake: IV 450 / 450 1900 / 1900 200 / 200 Diprivan 1000 mg/100 ml Inj 1, 100 / 100 100 / 100 100 / 100 000 mg In 100 ml @ 5 MCG/KG/MIN 3.87 mls/hr IV.CONT TITRATE PRN Rx#:[id number] Pitressin Inj 40 UNIT In D5W 100 / 100 100 / 100 Inj 98 ML @ 0.01 UNITS/MIN 1.5 mls/hr IV.CONT TITRATE PRN Rx#: [id number] Flexbumin 25% Inj 100 ML @ 60 100 / 100 100 / 100 mls/hr IV.SIG WITH DIALYSIS PRN Rx#:[id number] Diflucan 200 mg Premix Bag 200 100 / 100 MG In Bag/Syringe 1 EACH @ 100 mls/hr IV.SIG Q24H TRACIE Rx#: [id number] Vancomycin Inj 1,000 MG In NS 250 / 250 Inj 250 ML @ 250 mls/hr IV.SIG WITH DIALYSIS TRACIE Rx#:[id number] fentaNYL 10 mcg/mL Premix Drip 250 / 250 250 / 250 2,500 mcg In 250 ml @ 50 MCG/HR 5 mls/hr IV.SIG TITRATE PRN Rx #:[id number] NS Inj 1,000 ML @ 200 mls/hr 1000 / 1000 OTHER .Q5H PRN Rx#:[id number] Tube Feeding 448 / 448 270 / 270 Tube Irrigant 0 / 0 Water Bolus Amount 260 / 260 240 / 240 Output: Stool 100 / 100 225 / 225 Hemodialysis Amount 4000 / 4000 Chest Tube Drainage 0 / 0 #2 Left Lower Mid-Axillary 10 10 0 / 0 Chest Other: Date of Last Bowel Movement 06/15/18 06/16/18 06/16/18 - Constitutional no acute distress - Routine HEENT Exam Head: Present: normocephalic Eye: Present: EOMI - Routine Respiratory Exam Present: patient mechanically ventilated, decreased breath sounds - Routine Abdominal Exam Present: soft, normoactive bowel sounds - Routine Extremities Exam Present: edema - Urinary Catheter Management Suprapubic Cath placed during this visit: no Assessment and Plan - Assessment (1) End stage renal disease on dialysis Code(s): N18.6 - End stage renal disease; Z99.2 - Dependence on renal dialysis Status: Acute (2) Hemodialysis access, AV graft Code(s): Z99.2 - Dependence on renal dialysis Status: Acute - Plan Patient has sepsis and undergoing treatment with IV vancomycin Patient low blood pressure on vasopressors Patient had dialysis 4 L was removed he is scheduled to undergo another treatment he may have tracheostomy and PEG tube placement Apparent HeRO infection and MRSA: Removal of previous left IJ port, s/p partial removal for right arm graft and HeRO outflow component. Ongoing hypotension - follow with ID and Vascular Continue on extra treatment on Friday then he will be back on Friday and Friday schedule --
[2018-06-16] MEDS: Albumin Human 25% Inj 100 ML IV.SIG PRN ×2 (13:23→13:34)
--- NOTE | 2018-06-16 13:32 | P.PNGS ---
Subjective Interval history: Tracheostomy tube placement put on hold until family decision made--- now would like to proceed. Physical Exam Vital signs: Vital Signs 06/15/18 13:46 06/15/18 14:00 06/15/18 14:01 Temperature Pulse Rate 85 84 83 Respiratory Rate 17 14 16 Blood Pressure 106/59 L 104/57 L Pulse Oximetry 100 100 100 06/15/18 14:15 06/15/18 14:31 06/15/18 14:45 Temperature Pulse Rate 85 84 82 Respiratory Rate 16 16 17 Blood Pressure 103/60 110/59 L 101/54 L Pulse Oximetry 100 100 100 06/15/18 14:46 06/15/18 15:00 06/15/18 15:16 Temperature Pulse Rate 80 81 89 Respiratory Rate 17 18 16 Blood Pressure 95/50 L 123/69 Pulse Oximetry 100 100 06/15/18 15:31 06/15/18 15:46 06/15/18 16:00 Temperature Pulse Rate 87 90 91 H Respiratory Rate 17 17 20 Blood Pressure 107/53 L 110/58 L Pulse Oximetry 100 100 100 06/15/18 16:01 06/15/18 16:15 06/15/18 16:25 Temperature 98.6 F Pulse Rate 92 H 85 Respiratory Rate 27 H 17 18 Blood Pressure 113/63 111/58 L Pulse Oximetry 100 100 100 06/15/18 16:30 06/15/18 16:45 06/15/18 17:00 Temperature Pulse Rate 85 84 88 Respiratory Rate 11 L 11 L 12 Blood Pressure 110/53 L 103/54 L 105/57 L Pulse Oximetry 100 100 100 06/15/18 17:16 06/15/18 17:31 06/15/18 17:45 Temperature Pulse Rate 85 81 80 Respiratory Rate 17 11 L 17 Blood Pressure 96/53 L 100/53 L 96/55 L Pulse Oximetry 100 99 06/15/18 18:00 06/15/18 19:42 06/15/18 20:00 Temperature 98.4 F Pulse Rate 81 80 Respiratory Rate 15 16 11 L Blood Pressure 93/52 L 105/56 L Pulse Oximetry 99 100 100 06/15/18 21:45 06/15/18 22:00 06/15/18 22:25 Temperature Pulse Rate 79 78 Respiratory Rate 16 11 L 16 Blood Pressure 89/53 L Pulse Oximetry 100 100 06/16/18 00:00 06/16/18 01:25 06/16/18 02:00 Temperature Pulse Rate 59 L 66 Respiratory Rate 16 16 14 Blood Pressure 89/55 L 113/76 Pulse Oximetry 100 100 97 06/16/18 03:01 06/16/18 03:15 06/16/18 03:31 Temperature Pulse Rate 66 88 Respiratory Rate 16 10 L Blood Pressure 112/58 L 104/57 L 130/72 Pulse Oximetry 99 72 L 06/16/18 03:42 06/16/18 03:45 06/16/18 04:00 Temperature 98.6 F Pulse Rate 106 H 94 H 97 H Respiratory Rate 22 18 21 Blood Pressure 145/70 H 111/58 L Pulse Oximetry 95 85 L 06/16/18 04:15 06/16/18 04:30 06/16/18 04:36 Temperature Pulse Rate 85 77 Respiratory Rate 10 L 14 18 Blood Pressure 83/50 L 80/47 L Pulse Oximetry 95 97 95 06/16/18 04:45 06/16/18 05:00 06/16/18 05:10 Temperature Pulse Rate 72 67 Respiratory Rate 12 10 L 13 Blood Pressure 113/59 L 133/62 Pulse Oximetry 90 L 89 L 06/16/18 05:15 06/16/18 05:31 06/16/18 05:45 Temperature Pulse Rate 73 86 81 Respiratory Rate 13 22 19 Blood Pressure 96/55 L 131/75 126/64 Pulse Oximetry 99 98 06/16/18 06:00 06/16/18 06:15 06/16/18 06:30 Temperature Pulse Rate 76 76 73 Respiratory Rate 16 16 15 Blood Pressure 118/87 127/59 L 122/64 Pulse Oximetry 97 93 L 93 L 06/16/18 06:45 06/16/18 07:00 06/16/18 07:01 Temperature Pulse Rate 72 74 72 Respiratory Rate 16 11 L 15 Blood Pressure 120/67 105/53 L Pulse Oximetry 97 88 L 89 L 06/16/18 07:15 06/16/18 07:31 06/16/18 07:45 Temperature Pulse Rate 79 78 82 Respiratory Rate 13 16 17 Blood Pressure 133/61 133/63 141/67 H Pulse Oximetry 96 98 96 06/16/18 08:00 06/16/18 08:15 06/16/18 08:30 Temperature 97.9 F Pulse Rate 82 79 80 Respiratory Rate 29 H 20 24 Blood Pressure 145/66 H 141/75 H 146/77 H Pulse Oximetry 94 L 94 L 94 L 06/16/18 08:45 06/16/18 09:00 06/16/18 09:16 Temperature Pulse Rate 101 H 84 92 H Respiratory Rate 25 H 24 28 H Blood Pressure 135/66 147/77 H 147/70 H Pulse Oximetry 93 L 95 96 06/16/18 09:30 06/16/18 09:46 06/16/18 09:48 Temperature Pulse Rate 85 103 H 98 H Respiratory Rate 29 H 36 H 32 H Blood Pressure 137/73 157/98 H Pulse Oximetry 93 L 100 97 06/16/18 10:00 06/16/18 10:01 06/16/18 10:15 Temperature Pulse Rate 91 H 89 89 Respiratory Rate 25 H 23 25 H Blood Pressure 137/70 133/63 Pulse Oximetry 97 97 94 L 06/16/18 10:30 06/16/18 10:46 06/16/18 11:00 Temperature Pulse Rate 88 85 81 Respiratory Rate 19 27 H 11 L Blood Pressure 128/62 113/71 105/60 Pulse Oximetry 95 97 96 06/16/18 11:15 06/16/18 11:30 06/16/18 11:45 Temperature Pulse Rate 84 83 81 Respiratory Rate 14 12 11 L Blood Pressure 113/59 L 118/59 L 120/58 L Pulse Oximetry 95 97 95 06/16/18 12:00 06/16/18 12:06 06/16/18 12:15 Temperature 98.1 F Pulse Rate 78 78 Respiratory Rate 18 18 20 Blood Pressure 117/61 119/61 Pulse Oximetry 97 97 97 Intake & Output 06/15/18 06/16/18 06/16/18 18:59 06:59 18:59 Intake Total 1158 / 1158 2410 / 2410 200 / 200 Output Total 4110 / 4110 225 / 225 Balance -2952 / -2952 2185 / 2185 200 / 200 Weight 139.4 kg Intake: IV 450 / 450 1900 / 1900 200 / 200 Diprivan 1000 mg/100 ml Inj 1, 100 / 100 100 / 100 100 / 100 000 mg In 100 ml @ 5 MCG/KG/MIN 3.87 mls/hr IV.CONT TITRATE PRN Rx#:[id number] Pitressin Inj 40 UNIT In D5W 100 / 100 100 / 100 Inj 98 ML @ 0.01 UNITS/MIN 1.5 mls/hr IV.CONT TITRATE PRN Rx#: [id number] Flexbumin 25% Inj 100 ML @ 60 100 / 100 100 / 100 mls/hr IV.SIG WITH DIALYSIS PRN Rx#:[id number] Diflucan 200 mg Premix Bag 200 100 / 100 MG In Bag/Syringe 1 EACH @ 100 mls/hr IV.SIG Q24H TRACIE Rx#: [id number] Vancomycin Inj 1,000 MG In NS 250 / 250 Inj 250 ML @ 250 mls/hr IV.SIG WITH DIALYSIS TRACIE Rx#:[id number] fentaNYL 10 mcg/mL Premix Drip 250 / 250 250 / 250 2,500 mcg In 250 ml @ 50 MCG/HR 5 mls/hr IV.SIG TITRATE PRN Rx #:[id number] NS Inj 1,000 ML @ 200 mls/hr 1000 / 1000 OTHER .Q5H PRN Rx#:[id number] Tube Feeding 448 / 448 270 / 270 Tube Irrigant 0 / 0 Water Bolus Amount 260 / 260 240 / 240 Output: Stool 100 / 100 225 / 225 Hemodialysis Amount 4000 / 4000 Chest Tube Drainage 10 10 0 / 0 #2 Left Lower Mid-Axillary 10 10 0 / 0 Chest Other: Date of Last Bowel Movement 06/15/18 06/16/18 06/16/18 Narrative: Intubated/Sedated Resp: CTAB on minimal vent settings Cardio: RRR Abd: soft non tender Large dressing on RIGHT side of neck LEFT sided chest tube in place - Urinary Catheter Management Suprapubic Cath placed during this visit: no Assessment and Plan - Assessment (1) Ventilator dependence Code(s): Z99.11 - Dependence on respirator [ventilator] status Status: Acute Plan: 73 year old male with 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 Ortega and VIANEY Dawson wounds are clean and dry; right shoulder wound with wet to dry dressing The exam, history, and the medical decision-making described in the above note were completed with the assistance of the mid-level provider. I reviewed and agree with the findings presented. I attest that I had a [id number] encounter with the patient on the same day, and personally performed and documented my assessment and findings in the medical record.
--- NOTE | 2018-06-16 14:02 | ECG ---
Date Performed: 06/15/2018 Time Performed: 17:31:03 PTAGE: 73 years EKG: Sinus rhythm WITH FIRST DEGREE AV BLOCK WITH FREQUENT SUPRAVENTRICULAR PREMATURE COMPLEXES ABNORMAL ECG Since the PREVIOUS TRACING , no significant change noted PREVIOUS TRACIN12/25/2017 08.23 DOCTOR: Miguelito Coe Interpretating Date/Time 06/16/2018 14:01:18
--- NOTE | 2018-06-16 14:37 | P.PNCC ---
Subjective Subjective Remarks/Hospital Course: Mr. Laguerre is a 73-year-old -[place] male with past medical history significant for end-stage renal disease on hemodialysis, hypertension, complicated vascular access, HeRO graft placement by Dr. Umana on 09/23/2017, revision and PTFE replacement 12/25/17. who presented to the [facility] with probable sepsis and shock. Dr. Umana was contacted and patient was accepted for transfer to CVICU in [facility]. I immediately evaluated the patient on arrival to CVICU. Patient is currently on BiPAP (transported on BiPAP) severely encephalopathic hardly wakes up to sternal rub, with a rapid shallow breathing. BiPAP settings 18/8, 60% FiO2. He is literally unresponsive and not protecting airway. Currently he is on Levophed at 20 mcg/min with a map 65-70. He is also on amiodarone for atrial fibrillation with RVR. Because of lack of airway protection, severe encephalopathy, septic shock and hypoxia I proceeded with endotracheal intubation. His glottic opening was completely occluded with thick secretions, several minutes of suctioning needed to clear the secretions prior to intubation. Postintubation Levophed had to be increased to 30 mcg/min, I also placed an arterial line. All cultures, routine labs and lactic acid pending at this time. I have started him on vancomycin and Zosyn. Discussed case with Dr. Umana extensively Patient was unable to provide any history, according to the RN who got report patient apparently had GI bleed, underwent EGD with cauterization of duodenal ulcer few days ago. Will avoid heparin for DVT prophylaxis. His postintubation ABG showed severe hypoxia with significant AA gradient, metabolic acidosis, and a hemoglobin of 7.6. Currently Levophed is increased to 30 mcg/min, I will transfuse 1 unit PRBC. Chest x-ray shows pulmonary edema will arrange for hemodialysis once his shock is improves. At this time he will not be able to tolerate either hemodialysis or even CVVH 05/28: initially evaluated around 6:30am. patient in refractory septic shock. added epinephrine to levophed and vasopressin. discussed with Dr. Umana. obtained u/s of the right upper extremity which demonstrated fluid collection surrounding the HeRO graft which was heterogenous in nature. added single dose of Amikacin to vanc/zosyn regimen to cover ESBL organisms. patient remains in shock. per verbal report from OSH, blood cultures growing MRSA. taken to OR urgently and large amount of purulent drainage debrided from around catheter. HeRO catheter removed. returns from OR persistently unstable. acidosis worsening. bicarb given. discussed with nephrology and will need CRRT. 05/29: s/p emergent debridement and removal of HeRO graft. today vasopressor doses are somewhat lower, although remains on levo,vaso,epi. lactate cleared. s/ p IHD today with 3L removal. blood growing MRSA. sputum growing e.coli, providencia, MRSA. wbc remains elevated. 05/30: off vasopressors. getting IHD again today. hgb 7 and receiving 1 unit prbc during dialysis. encephalopathy persists, not following commands. 05/31: clinically continues to improve. not following commands, very slow to arouse. bradycardic this AM, but tolerating hemodynamically. HD yesterday with volume removal. 06/01: Clinically improved off all pressors. Sedated with propofol and fentanyl , opens eyes moves extremities not following commands. Plan for hemodialysis today. Initiate CPAP trial after hemodialysis. Persistently bacteremic with MRSA, repeat cultures in 24 hours 06/02: Remains in septic shock, though pressor requirement has improved. Hypotensive bradycardic while getting HD yesterday, started on Dopamine, now at 3 mcg/kg/min. Pus being expressed from upper part of right upper chest [id number] (HeRO AVG removal site). Hypothermic. Some pus around the suprapubic catheter 06/03: Patient had been weaned off all pressors now. Not requiring dopamine for the last 18 hours. However WBC count 13 K today. Persistent bacteremia with MRSA. Source could be right upper extremity graft remnant versus infected invasive catheters. After hemodialysis removal HD catheter, also remove left IJ central line. Repeat blood cultures in 24 hours. Antibiotics broadened by ID yesterday 06/04: Showing some clinical signs of improvement. Not requiring pressors hypothermia has resolved. CBC still pending patient is more awake following commands tolerating CPAP now. Left IJ central line and right femoral Vas-Cath was removed yesterday. Plan for next dialysis is tomorrow will place new Vas- Cath tomorrow a.m. to give 'line holiday'. 06/05: Back on norepinephrine at 10 mics per minute. Blood blood pressure variable, intermittently hypotensive. New Vas-Cath placed in groin functional. Most recent cultures continued to grow gram-positive cocci. Alert when propofol is lightened 06/06: Afebrile. Remains on norepinephrine drip at 7 mcg/min. Arousable on the ventilator on sedation vacation. Commands. -3 L with hemodialysis yesterday. Repeat blood cultures done the same. Right upper extremity ultrasound pending.. 06/07: remains on vasopressors. cxr today with new left pleural effusion which is quite large: confirmed on bedside lung ultrasound. pigtail chest tube placed with > 1L old hemothorax. hgb slightly lower, but hemodynamically stable. discussed with nephrology and vascular surgery and most ideal plan would be to transfuse prbc tomorrow with HD. 06/08: Remains intubated sedated with propofol. Currently on 8 mcg/min of Levophed but map is above 75. Getting 2 units of PRBC with dialysis for hemoglobin of 6.9. Left pigtail chest tube drained almost 2 L old blood appearing. I will request fluid studies from any residual drainage. CT of the chest to evaluate for any residual fluid. 06/09: Intubated sedated, wakes up and follows commands. On Levophed at 1 mcg/ min. CT of the chest shows small left pleural effusion bibasilar consolidation , multiple bilateral pulmonary nodules some cavitation indicating septic emboli most likely from staff. Blood cultures from 06/05/18 and 06/06/18 negative to date 06/10: Remains intubated slightly sedated follows commands. Levophed requirement has slightly increased overnight currently on 5 mcg/min. We will recheck blood cultures. Getting hemodialysis today. Chest x-ray shows severe left-sided airspace disease. Check ultrasound of the chest post dialysis. Left pigtail chest tube output 60 ml in last 24 hours 06/11 Patient is sedated with Diprivan and Fentanyl infusion, on Levophed 11 mics. Afebrile. Left pigtail catheter had 50 ml output and a second large bore CT was placed yesterday had approx 100ml overnight. 06/12 Patient remains intubated tolerated CPAP for several hrs yesterday remains on Levophed 10 mics and Vasopressin 0.04. Afebrile. Left pigtail catheter was dislodged yesterday, 28Fr CT had 50ml output overnight. Tolerating tube feeds. 06/13: Remains critical Levophed requirement has decreased to 5 mcg/min same dose of vasopressin 0.04. However hemoglobin has dropped to 6.7, 2 units of PRBC ordered stat. Chest tube output approximately 200 mL serosanguineous. I do not believe this is the source of his anemia. Previous history of GI bleed will consult GI. Remains encephalopathic and lethargic I do not think he can be successfully be weaned off the ventilator without a tracheostomy. General surgery consulted per Dr. Umana's request for OR tracheostomy Subjective 06/14: Remains on ventilator no acute distress. Currently on vasopressin 0.04. Norepinephrine has been held. Remains hyponatremic and hyperphosphatemia. 06/15: Remains intubated sedated remains on vasopressin. Hyponatremia worsening most likely volume related. Discussed with nephrology plan for HD with fluid removal today. Check TSH, monitor CMP 06/16: Intubated off sedation weakly follows some commands. Chest tube output has significantly diminished. After discussion with Dr. Umana has agreed on tracheostomy, planned for . Remains on Vasopressin Objective Vital Signs / I&O: Vital Signs 06/15/18 14:31 06/15/18 14:45 06/15/18 14:46 Temperature Pulse Rate 84 82 80 Respiratory Rate 16 17 17 Blood Pressure 110/59 L 101/54 L Pulse Oximetry 100 100 06/15/18 15:00 06/15/18 15:16 06/15/18 15:31 Temperature Pulse Rate 81 89 87 Respiratory Rate 18 16 17 Blood Pressure 95/50 L 123/69 107/53 L Pulse Oximetry 100 100 100 06/15/18 15:46 06/15/18 16:00 06/15/18 16:01 Temperature 98.6 F Pulse Rate 90 91 H 92 H Respiratory Rate 17 20 27 H Blood Pressure 110/58 L 113/63 Pulse Oximetry 100 100 100 06/15/18 16:15 06/15/18 16:25 06/15/18 16:30 Temperature Pulse Rate 85 85 Respiratory Rate 17 18 11 L Blood Pressure 111/58 L 110/53 L Pulse Oximetry 100 100 100 06/15/18 16:45 06/15/18 17:00 06/15/18 17:16 Temperature Pulse Rate 84 88 85 Respiratory Rate 11 L 12 17 Blood Pressure 103/54 L 105/57 L 96/53 L Pulse Oximetry 100 100 100 06/15/18 17:31 06/15/18 17:45 06/15/18 18:00 Temperature Pulse Rate 81 80 81 Respiratory Rate 11 L 17 15 Blood Pressure 100/53 L 96/55 L 93/52 L Pulse Oximetry 99 99 06/15/18 19:42 06/15/18 20:00 06/15/18 21:45 Temperature 98.4 F Pulse Rate 80 79 Respiratory Rate 16 11 L 16 Blood Pressure 105/56 L Pulse Oximetry 100 100 06/15/18 22:00 06/15/18 22:25 06/16/18 00:00 Temperature Pulse Rate 78 59 L Respiratory Rate 11 L 16 16 Blood Pressure 89/53 L 89/55 L Pulse Oximetry 100 100 100 06/16/18 01:25 06/16/18 02:00 06/16/18 03:01 Temperature Pulse Rate 66 Respiratory Rate 16 14 Blood Pressure 113/76 112/58 L Pulse Oximetry 100 97 06/16/18 03:15 06/16/18 03:31 06/16/18 03:42 Temperature Pulse Rate 66 88 106 H Respiratory Rate 16 10 L 22 Blood Pressure 104/57 L 130/72 Pulse Oximetry 99 72 L 06/16/18 03:45 06/16/18 04:00 06/16/18 04:15 Temperature 98.6 F Pulse Rate 94 H 97 H 85 Respiratory Rate 18 21 10 L Blood Pressure 145/70 H 111/58 L 83/50 L Pulse Oximetry 95 85 L 95 06/16/18 04:30 06/16/18 04:36 06/16/18 04:45 Temperature Pulse Rate 77 72 Respiratory Rate 14 18 12 Blood Pressure 80/47 L 113/59 L Pulse Oximetry 97 95 90 L 06/16/18 05:00 06/16/18 05:10 06/16/18 05:15 Temperature Pulse Rate 67 73 Respiratory Rate 10 L 13 13 Blood Pressure 133/62 96/55 L Pulse Oximetry 89 L 06/16/18 05:31 06/16/18 05:45 06/16/18 06:00 Temperature Pulse Rate 86 81 76 Respiratory Rate 22 19 16 Blood Pressure 131/75 126/64 118/87 Pulse Oximetry 99 98 97 06/16/18 06:15 06/16/18 06:30 06/16/18 06:45 Temperature Pulse Rate 76 73 72 Respiratory Rate 16 15 16 Blood Pressure 127/59 L 122/64 120/67 Pulse Oximetry 93 L 93 L 97 06/16/18 07:00 06/16/18 07:01 06/16/18 07:15 Temperature Pulse Rate 74 72 79 Respiratory Rate 11 L 15 13 Blood Pressure 105/53 L 133/61 Pulse Oximetry 88 L 89 L 96 06/16/18 07:31 06/16/18 07:45 06/16/18 08:00 Temperature 97.9 F Pulse Rate 78 82 82 Respiratory Rate 16 17 29 H Blood Pressure 133/63 141/67 H 145/66 H Pulse Oximetry 98 96 94 L 06/16/18 08:15 06/16/18 08:30 06/16/18 08:45 Temperature Pulse Rate 79 80 101 H Respiratory Rate 20 24 25 H Blood Pressure 141/75 H 146/77 H 135/66 Pulse Oximetry 94 L 94 L 93 L 06/16/18 09:00 06/16/18 09:16 06/16/18 09:30 Temperature Pulse Rate 84 92 H 85 Respiratory Rate 24 28 H 29 H Blood Pressure 147/77 H 147/70 H 137/73 Pulse Oximetry 95 96 93 L 06/16/18 09:46 06/16/18 09:48 06/16/18 10:00 Temperature Pulse Rate 103 H 98 H 91 H Respiratory Rate 36 H 32 H 25 H Blood Pressure 157/98 H Pulse Oximetry 100 97 97 06/16/18 10:01 06/16/18 10:15 06/16/18 10:30 Temperature Pulse Rate 89 89 88 Respiratory Rate 23 25 H 19 Blood Pressure 137/70 133/63 128/62 Pulse Oximetry 97 94 L 95 06/16/18 10:46 06/16/18 11:00 06/16/18 11:15 Temperature Pulse Rate 85 81 84 Respiratory Rate 27 H 11 L 14 Blood Pressure 113/71 105/60 113/59 L Pulse Oximetry 97 96 95 06/16/18 11:30 06/16/18 11:45 06/16/18 12:00 Temperature 98.1 F Pulse Rate 83 81 78 Respiratory Rate 12 11 L 18 Blood Pressure 118/59 L 120/58 L 117/61 Pulse Oximetry 97 95 97 06/16/18 12:06 06/16/18 12:15 Temperature Pulse Rate 78 Respiratory Rate 18 20 Blood Pressure 119/61 Pulse Oximetry 97 97 Intake & Output 06/15/18 06/16/18 06/16/18 18:59 06:59 18:59 Intake Total 1158 / 1158 2410 / 2410 400 / 400 Output Total 4110 / 4110 225 / 225 Balance -2952 / -2952 2185 / 2185 400 / 400 Weight 139.4 kg Intake: IV 450 / 450 1900 / 1900 400 / 400 Diprivan 1000 mg/100 ml Inj 1, 100 / 100 100 / 100 100 / 100 000 mg In 100 ml @ 5 MCG/KG/MIN 3.87 mls/hr IV.CONT TITRATE PRN Rx#:[id number] Pitressin Inj 40 UNIT In D5W 100 / 100 100 / 100 Inj 98 ML @ 0.01 UNITS/MIN 1.5 mls/hr IV.CONT TITRATE PRN Rx#: [id number] Flexbumin 25% Inj 100 ML @ 60 100 / 100 100 / 100 200 / 200 mls/hr IV.SIG WITH DIALYSIS PRN Rx#:[id number] Diflucan 200 mg Premix Bag 200 100 / 100 MG In Bag/Syringe 1 EACH @ 100 mls/hr IV.SIG Q24H [facility] Rx#: [id number] Vancomycin Inj 1,000 MG In NS 250 / 250 Inj 250 ML @ 250 mls/hr IV.SIG WITH DIALYSIS [facility] Rx#:[id number] fentaNYL 10 mcg/mL Premix Drip 250 / 250 250 / 250 2,500 mcg In 250 ml @ 50 MCG/HR 5 mls/hr IV.SIG TITRATE PRN Rx #:[id number] NS Inj 1,000 ML @ 200 mls/hr 1000 / 1000 OTHER .Q5H PRN Rx#:[id number] Tube Feeding 448 / 448 270 / 270 Tube Irrigant 0 / 0 Water Bolus Amount 260 / 260 240 / 240 Output: Stool 100 / 100 225 / 225 Hemodialysis Amount 4000 / 4000 Chest Tube Drainage 10 / 10 0 / 0 #2 Left Lower Mid-Axillary 10 / 10 0 / 0 Chest Other: Date of Last Bowel Movement 06/15/18 06/16/18 06/16/18 Result Diagrams: 06/16/18 04:00 06/16/18 04:00 Objective Remarks: GENERAL: 73-year-old -[place] male, lying in bed, intubated, on sedation with propofol and fentanyl HEENT: Normocephalic. Atraumatic. Pupils equal, round, reactive. NECK: Trachea is midline. Orotracheally intubated. Left IJ CVL is clean dry and intact. CHEST: PRVC. equal chest rise. Air entry decreased predominantly in the left lung newman with few coarse rhonchi bilaterally. Left chest tube with old appearing blood 10 mL in 24 hours CARDIOVASCULAR: Atrial fibrillation rate controlled. No murmurs. No JVD. Vasopressin ABDOMEN: Soft, nontender, nondistended. No guarding. Left femoral dialysis catheter site clean dry and intact MUSCULOSKELETAL: Right upper extremity s/p debridement upper incision W/D dressing. Pulses 2+. No peripheral edema. NEUROLOGICAL: Intubated sedated. Follows commands weekly on upper extremities. No focal deficits Assessment and Plan - Assessment and Plan Plan: NEURO/PSYCH: Toxic metabolic encephalopathy -Continue on propofol and fentanyl drip due to patient biting on the tube, asynchronous with the vent -As needed hydromorphone 0.5 mg IV every 2 hours as needed added 06/11 -Acetaminophen 650 mg by tube every 6 hours as needed fever -Altered mentation secondary to toxic metabolic encephalopathy from sepsis and hypercapnia -Daily sedation location RESP: Acute hypoxemic and hypercarbic respiratory failure Multiple pulmonary nodules/septic emboli Pulmonary edema Left Hemothorax MRSA pneumonia HCAP with MRSA- present on admission General surgery consulted for tracheostomy-Dr. Umana requests OR trach, plan for 06/18/[address] Acosta -Continue abx. daily /SBT as narciso. Ventilator bundle. Albuterol/ipratropium aerosols every 6 hours scheduled and albuterol aerosols every 2 hours as needed -MRSA pneumonia treatment below s/p 10 Fr pigtail chest tube, left, with >1L old dark blood. 06/07. Dislodged 06/11 s/p 28Fr CT placement 06/10 with 400ml removed on insertion, had 30ml output last 24 hours. Remove chest tube after OR trach Fluid studies consistent with hemothorax CXR : Improved left lung airspace consolidation. There is residual bilateral airspace consolidation, left greater than right. CT of the chest shows multiple pulmonary nodules with some cavitation indicating septic emboli CV: Septic shock Pulmonary edema-resolving Atrial fibrillation with RVR-currently rate controlled Acute severe anion gap Metabolic acidosis- resolved On vasopressin 0.04 units/min keep MAP>65mmHg A. fib rate is controlled and currently normal sinus rhythm, cannot anticoagulate due to history of recent GI bleed, and blood loss anemia Echo 06/12/2018 shows mild concentric left ventricular hypertrophy. The left ventricular systolic function is normal with an estimated ejection fraction in the range of 55-60%. There is trace tricuspid valve regurgitation. There is a small pericardial effusion present. GI/HEME/FEN: Recent GI bleed Acute normocytic anemia requiring transfusion Hyperphosphatemia Hyponatremia hypoalbuminemia -s/p Transfusion of 2U PRBC with HD 06/10, additional 2 units 06/13/18 -GI consulted -Nepro tube feeds at 45 cc an hour per nutrition recommendations with Beneprotein 1 packet 3 times daily -IV pantoprazole 40 mg IV q12 -Docusate sodium/senna 1 tablet twice daily for bowel regimen -Calcium acetate 667 mg 3 times daily for elevated phosphorus. /renal: End-stage renal disease on hemodialysis HeRO graft placed 09/2017, now removed due to graft infection - Nephrology: Dr. Davidson following - continue HD per nephrology, Monitor renal function, I/O's, avoid nephrotoxins ID: Septic shock HeRO graft infection s/p removal HCAP pneumonia- present on admission MRSA septic emboli to lung Persistent MRSA bacteremia -Persistent MRSA bacteremia could be secondary to infected remnant of the AV graft, versus secondary seeding of the catheters Recent blood cultures since 06/05/2018 had been negative -Removed Vas-Cath, and left IJ central line 06/03/18 - 05/27, 05/28, 05/30, 06/01 and 06/04 blood cultures MRSA - 05/27 sputum cultures: Providencia, MRSA, e.coli - 06/02 wound with Arlet albicans - ID Dr. Morgan, abx management per ID - cont vancomycin: keep trough 15-20 cont rifampin - Continue fluconazole - will need minimum 6 weeks coverage for MRSA graft infection - Dr. Umana following ENDO: Type 2 diabetes Presumed Adrenal insufficiency -Sliding scale insulin with aspart insulin every 4 hours -Status post stress steroids PROPH: -Bilateral lower extremity SCDs. IV Protonix 40 mg every 12. Chemical prophylaxis contraindicated due to anemia requiring transfusion LINES: -Removed OSH left IJ central line and OSH right femoral Vas-Cath on 06/03/2018 -New left femoral Vas-Cath placement 06/04/18 -left radial arterial line 05/27-06/13/18 -New LIJ central line 06/08/18 due to ongoing pressor requirement Level 3 follow-up Patient still remains critically ill requiring vasopressin to keep map above 65. Encephalopathy persist continues to fail CPAP trial. Tracheostomy planned for 06/18/2018
[2018-06-16] MEDS: Heparin 10,000 UNITS/10 ML Vial (for IV use) OTHER PRN (15:16)
[2018-06-16] MEDS: FLUCONAZOLE IV.SIG SCH (20:17)
[2018-06-17] MEDS: Sodium Chlor 0.9% Inj 100 ML IV.SIG SCH ×11 (00:17→22:34)
[2018-06-17] MEDS: Pantoprazole Inj 40 MG Vial IV.PUSH SCH ×3 (00:17→23:32)
[2018-06-17] MEDS: fentaNYL 10 mcg/mL Premix Drip 2,500 MCG/250 ML BAG IV.SIG PRN (00:17)
[2018-06-17] MEDS: Insulin NovoLOG Aspart Correctional Sugar Inj SQ SCH ×6 (00:19→21:04)
[2018-06-17] MEDS: Vasopressin Inj 40 UNIT in Dextrose 5% in Water Inj 98 ML IV.CONT PRN ×2 (03:04)
[2018-06-17] MEDS: Propofol 1000 mg/100 ml Inj 1,000 MG/100 ML BOTTLE IV.CONT PRN (05:51)
[2018-06-17] MEDS: Mupirocin 2% Nasal Oint Topical Syringe EACH NARE SCH ×2 (08:00→21:22)
[2018-06-17] MEDS: Calcium Acetate 667 MG Capsule PO SCH ×3 (08:01→18:01)
[2018-06-17] MEDS: Hypromellose 0.3% Opth Gel 10 GM Bottle EACH EYE SCH ×2 (08:02→21:05)
[2018-06-17] MEDS: Senna/Docusate Sodium 8.6/50 MG Tablet PO SCH ×2 (08:03→21:05)
[2018-06-17] MEDS: Beneprotein Powder Packet G-TUBE SCH ×3 (08:36→18:01)
--- NOTE | 2018-06-17 09:08 | XR ---
EXAM DATE: 06/17/2018 8:50 AM EDT AGE/SEX: 73 years / Male INDICATIONS: NG tube placement. CLINICAL DATA: This is the patient's subsequent encounter. Patient reports that signs and symptoms h ave been present for 1 week and indicates a pain score of Nonresponsive. MEDICAL/SURGICAL HISTORY: . Cardiovascular disease. Hypertension. Renal disease, end stage Non e. COMPARISON: [facility], ABDOMEN 1V KUB, 05/31/2018. . FINDINGS: NG tube is identified in the distal tip overlies the expected location of the gastric body. In additi on there is additional tubing overlying the left upper quadrant with a distal side port. This is inco mpletely imaged on this study. CONCLUSION: NG tube as above. Electronically signed by: Sid Sandoval MD 06/17/2018 9:07 AM EDT
--- NOTE | 2018-06-17 11:12 | P.PNCC ---
Subjective Subjective Remarks/Hospital Course: Mr. Laguerre is a 73-year-old -[place] male with past medical history significant for end-stage renal disease on hemodialysis, hypertension, complicated vascular access, HeRO graft placement by Dr. Umana on 09/23/2017, revision and PTFE replacement 12/25/17. who presented to the [facility] with probable sepsis and shock. Dr. Umana was contacted and patient was accepted for transfer to CVICU in [facility]. I immediately evaluated the patient on arrival to CVICU. Patient is currently on BiPAP (transported on BiPAP) severely encephalopathic hardly wakes up to sternal rub, with a rapid shallow breathing. BiPAP settings 18/8, 60% FiO2. He is literally unresponsive and not protecting airway. Currently he is on Levophed at 20 mcg/min with a map 65-70. He is also on amiodarone for atrial fibrillation with RVR. Because of lack of airway protection, severe encephalopathy, septic shock and hypoxia I proceeded with endotracheal intubation. His glottic opening was completely occluded with thick secretions, several minutes of suctioning needed to clear the secretions prior to intubation. Postintubation Levophed had to be increased to 30 mcg/min, I also placed an arterial line. All cultures, routine labs and lactic acid pending at this time. I have started him on vancomycin and Zosyn. Discussed case with Dr. Umana extensively Patient was unable to provide any history, according to the RN who got report patient apparently had GI bleed, underwent EGD with cauterization of duodenal ulcer few days ago. Will avoid heparin for DVT prophylaxis. His postintubation ABG showed severe hypoxia with significant AA gradient, metabolic acidosis, and a hemoglobin of 7.6. Currently Levophed is increased to 30 mcg/min, I will transfuse 1 unit PRBC. Chest x-ray shows pulmonary edema will arrange for hemodialysis once his shock is improves. At this time he will not be able to tolerate either hemodialysis or even CVVH 05/28: initially evaluated around 6:30am. patient in refractory septic shock. added epinephrine to levophed and vasopressin. discussed with Dr. Umana. obtained u/s of the right upper extremity which demonstrated fluid collection surrounding the HeRO graft which was heterogenous in nature. added single dose of Amikacin to vanc/zosyn regimen to cover ESBL organisms. patient remains in shock. per verbal report from OSH, blood cultures growing MRSA. taken to OR urgently and large amount of purulent drainage debrided from around catheter. HeRO catheter removed. returns from OR persistently unstable. acidosis worsening. bicarb given. discussed with nephrology and will need CRRT. 05/29: s/p emergent debridement and removal of HeRO graft. today vasopressor doses are somewhat lower, although remains on levo,vaso,epi. lactate cleared. s/ p IHD today with 3L removal. blood growing MRSA. sputum growing e.coli, providencia, MRSA. wbc remains elevated. 05/30: off vasopressors. getting IHD again today. hgb 7 and receiving 1 unit prbc during dialysis. encephalopathy persists, not following commands. 05/31: clinically continues to improve. not following commands, very slow to arouse. bradycardic this AM, but tolerating hemodynamically. HD yesterday with volume removal. 06/01: Clinically improved off all pressors. Sedated with propofol and fentanyl , opens eyes moves extremities not following commands. Plan for hemodialysis today. Initiate CPAP trial after hemodialysis. Persistently bacteremic with MRSA, repeat cultures in 24 hours 06/02: Remains in septic shock, though pressor requirement has improved. Hypotensive bradycardic while getting HD yesterday, started on Dopamine, now at 3 mcg/kg/min. Pus being expressed from upper part of right upper chest [id number] (HeRO AVG removal site). Hypothermic. Some pus around the suprapubic catheter 06/03: Patient had been weaned off all pressors now. Not requiring dopamine for the last 18 hours. However WBC count 13 K today. Persistent bacteremia with MRSA. Source could be right upper extremity graft remnant versus infected invasive catheters. After hemodialysis removal HD catheter, also remove left IJ central line. Repeat blood cultures in 24 hours. Antibiotics broadened by ID yesterday 06/04: Showing some clinical signs of improvement. Not requiring pressors hypothermia has resolved. CBC still pending patient is more awake following commands tolerating CPAP now. Left IJ central line and right femoral Vas-Cath was removed yesterday. Plan for next dialysis is tomorrow will place new Vas- Cath tomorrow a.m. to give 'line holiday'. 06/05: Back on norepinephrine at 10 mics per minute. Blood blood pressure variable, intermittently hypotensive. New Vas-Cath placed in groin functional. Most recent cultures continued to grow gram-positive cocci. Alert when propofol is lightened 06/06: Afebrile. Remains on norepinephrine drip at 7 mcg/min. Arousable on the ventilator on sedation vacation. Commands. -3 L with hemodialysis yesterday. Repeat blood cultures done the same. Right upper extremity ultrasound pending.. 06/07: remains on vasopressors. cxr today with new left pleural effusion which is quite large: confirmed on bedside lung ultrasound. pigtail chest tube placed with > 1L old hemothorax. hgb slightly lower, but hemodynamically stable. discussed with nephrology and vascular surgery and most ideal plan would be to transfuse prbc tomorrow with HD. 06/08: Remains intubated sedated with propofol. Currently on 8 mcg/min of Levophed but map is above 75. Getting 2 units of PRBC with dialysis for hemoglobin of 6.9. Left pigtail chest tube drained almost 2 L old blood appearing. I will request fluid studies from any residual drainage. CT of the chest to evaluate for any residual fluid. 06/09: Intubated sedated, wakes up and follows commands. On Levophed at 1 mcg/ min. CT of the chest shows small left pleural effusion bibasilar consolidation , multiple bilateral pulmonary nodules some cavitation indicating septic emboli most likely from staff. Blood cultures from 06/05/18 and 06/06/18 negative to date 06/10: Remains intubated slightly sedated follows commands. Levophed requirement has slightly increased overnight currently on 5 mcg/min. We will recheck blood cultures. Getting hemodialysis today. Chest x-ray shows severe left-sided airspace disease. Check ultrasound of the chest post dialysis. Left pigtail chest tube output 60 ml in last 24 hours 06/11 Patient is sedated with Diprivan and Fentanyl infusion, on Levophed 11 mics. Afebrile. Left pigtail catheter had 50 ml output and a second large bore CT was placed yesterday had approx 100ml overnight. 06/12 Patient remains intubated tolerated CPAP for several hrs yesterday remains on Levophed 10 mics and Vasopressin 0.04. Afebrile. Left pigtail catheter was dislodged yesterday, 28Fr CT had 50ml output overnight. Tolerating tube feeds. 06/13: Remains critical Levophed requirement has decreased to 5 mcg/min same dose of vasopressin 0.04. However hemoglobin has dropped to 6.7, 2 units of PRBC ordered stat. Chest tube output approximately 200 mL serosanguineous. I do not believe this is the source of his anemia. Previous history of GI bleed will consult GI. Remains encephalopathic and lethargic I do not think he can be successfully be weaned off the ventilator without a tracheostomy. General surgery consulted per Dr. Umana's request for OR tracheostomy Subjective 06/14: Remains on ventilator no acute distress. Currently on vasopressin 0.04. Norepinephrine has been held. Remains hyponatremic and hyperphosphatemia. 06/15: Remains intubated sedated remains on vasopressin. Hyponatremia worsening most likely volume related. Discussed with nephrology plan for HD with fluid removal today. Check TSH, monitor CMP 06/16: Intubated off sedation weakly follows some commands. Chest tube output has significantly diminished. After discussion with Dr. Umana has agreed on tracheostomy, planned for . Remains on Vasopressin 06/17: Remains off sedation now following commands intermittently on upper extremities. Tolerating CPAP with high pressure support. Remains on vasopressin and now on Levophed at 2 mcg/min but systolic blood pressure above 160, I have instructed RN to wean Levophed Objective Vital Signs / I&O: Vital Signs 06/16/18 10:46 06/16/18 11:00 06/16/18 11:15 Temperature Pulse Rate 85 81 84 Respiratory Rate 27 H 11 L 14 Blood Pressure 113/71 105/60 113/59 L Pulse Oximetry 97 96 95 06/16/18 11:30 06/16/18 11:45 06/16/18 12:00 Temperature 98.1 F Pulse Rate 83 81 78 Respiratory Rate 12 11 L 18 Blood Pressure 118/59 L 120/58 L 117/61 Pulse Oximetry 97 95 97 06/16/18 12:06 06/16/18 12:15 06/16/18 12:30 Temperature Pulse Rate 78 73 Respiratory Rate 18 20 18 Blood Pressure 119/61 110/59 L Pulse Oximetry 97 97 97 06/16/18 12:45 06/16/18 13:00 06/16/18 13:16 Temperature Pulse Rate 77 76 70 Respiratory Rate 21 19 15 Blood Pressure 119/63 116/59 L 155/65 H Pulse Oximetry 98 97 99 06/16/18 13:31 06/16/18 13:45 06/16/18 14:00 Temperature Pulse Rate 70 73 68 Respiratory Rate 20 18 29 H Blood Pressure 113/65 124/64 91/51 L Pulse Oximetry 99 99 100 06/16/18 14:15 06/16/18 14:30 06/16/18 14:42 Temperature Pulse Rate 68 71 70 Respiratory Rate 14 18 21 Blood Pressure 101/56 L 107/63 95/56 L Pulse Oximetry 99 99 100 06/16/18 14:45 06/16/18 15:00 06/16/18 15:15 Temperature Pulse Rate 72 72 77 Respiratory Rate 19 15 17 Blood Pressure 114/58 L 113/55 L 100/56 L Pulse Oximetry 100 100 99 06/16/18 15:28 06/16/18 15:30 06/16/18 15:36 Temperature Pulse Rate 73 73 71 Respiratory Rate 19 17 19 Blood Pressure 111/55 L 107/59 L 105/59 L Pulse Oximetry 100 100 100 06/16/18 15:45 06/16/18 16:00 06/16/18 16:01 Temperature 97.8 F Pulse Rate 72 83 83 Respiratory Rate 17 20 18 Blood Pressure 87/53 L 103/56 L Pulse Oximetry 100 100 98 06/16/18 16:11 06/16/18 16:15 06/16/18 16:30 Temperature Pulse Rate 78 73 73 Respiratory Rate 20 20 16 Blood Pressure 90/52 L 76/47 L Pulse Oximetry 100 100 99 06/16/18 16:46 06/16/18 17:00 06/16/18 17:01 Temperature Pulse Rate 69 67 67 Respiratory Rate 22 21 19 Blood Pressure 96/53 L 120/60 Pulse Oximetry 99 100 100 06/16/18 17:15 06/16/18 17:30 06/16/18 17:45 Temperature Pulse Rate 67 71 81 Respiratory Rate 17 18 19 Blood Pressure 96/53 L 84/52 L 83/61 L Pulse Oximetry 100 99 98 06/16/18 18:00 06/16/18 18:16 06/16/18 20:00 Temperature 99.0 F Pulse Rate 83 75 66 Respiratory Rate 24 19 20 Blood Pressure 78/51 L 112/65 116/58 L Pulse Oximetry 96 99 96 06/16/18 20:27 06/16/18 20:28 06/16/18 22:00 Temperature Pulse Rate 67 71 80 Respiratory Rate 16 16 12 Blood Pressure 104/55 L Pulse Oximetry 100 97 06/16/18 23:20 06/17/18 00:00 06/17/18 02:00 Temperature Pulse Rate 69 69 Respiratory Rate 16 13 17 Blood Pressure 100/56 L 95/53 L Pulse Oximetry 99 97 96 06/17/18 02:08 06/17/18 03:34 06/17/18 03:35 Temperature Pulse Rate 71 Respiratory Rate 17 16 16 Blood Pressure Pulse Oximetry 97 06/17/18 04:00 06/17/18 06:00 06/17/18 08:26 Temperature Pulse Rate 81 74 75 Respiratory Rate 23 23 18 Blood Pressure 144/73 H 124/80 Pulse Oximetry 98 98 98 Intake & Output 06/16/18 06/17/18 06/17/18 18:59 06:59 18:59 Intake Total 822 / 822 1154 / 1154 Output Total 5000 / 5000 200 / 200 Balance -4178 / -4178 954 / 954 Weight 138.9 kg Intake: IV 500 / 500 550 / 550 Diprivan 1000 mg/100 ml Inj 1, 200 / 200 100 / 100 000 mg In 100 ml @ 5 MCG/KG/MIN 3.87 mls/hr IV.CONT TITRATE PRN Rx#:[id number] Pitressin Inj 40 UNIT In D5W 100 / 100 100 / 100 Inj 98 ML @ 0.01 UNITS/MIN 1.5 mls/hr IV.CONT TITRATE PRN Rx#: [id number] Flexbumin 25% Inj 100 ML @ 60 200 / 200 mls/hr IV.SIG WITH DIALYSIS PRN Rx#:[id number] Diflucan 200 mg Premix Bag 200 100 / 100 MG In Bag/Syringe 1 EACH @ 100 mls/hr IV.SIG Q24H TRACIE Rx#: [id number] fentaNYL 10 mcg/mL Premix Drip 250 / 250 2,500 mcg In 250 ml @ 50 MCG/HR 5 mls/hr IV.SIG TITRATE PRN Rx #:[id number] Tube Feeding 202 / 202 364 / 364 Water Bolus Amount 120 / 120 240 / 240 Output: Stool 200 / 200 Hemodialysis Amount 5000 / 5000 Chest Tube Drainage 0 / 0 #2 Left Lower Mid-Axillary 0 / 0 Chest Other: Date of Last Bowel Movement 06/16/18 06/17/18 Result Diagrams: 06/16/18 04:00 06/16/18 04:00 Objective Remarks: GENERAL: 73-year-old -[place] male, lying in bed, intubated, off sedation HEENT: Normocephalic. Atraumatic. Pupils equal, round, reactive. NECK: Trachea is midline. Orotracheally intubated. Left IJ CVL is clean dry and intact. CHEST: PRVC, now on CPAP. equal chest rise. Air entry decreased predominantly in the left lung newman with few coarse rhonchi bilaterally. Left chest tube with old appearing blood 10 mL in 24 hours CARDIOVASCULAR: Atrial fibrillation rate controlled. No murmurs. No JVD. Vasopressin 0.04, Levophed 2 ABDOMEN: Soft, nontender, nondistended. No guarding. Left femoral dialysis catheter site clean dry and intact MUSCULOSKELETAL: Right upper extremity s/p debridement upper incision W/D dressing. Pulses 2+. No peripheral edema. NEUROLOGICAL: Intubated sedated. Follows commands weakly on upper extremities. No focal deficits Assessment and Plan - Assessment and Plan Plan: NEURO/PSYCH: Toxic metabolic encephalopathy -Continue on propofol and fentanyl drip due to patient biting on the tube, asynchronous with the vent -Currently off sedation following some commands -As needed hydromorphone 0.5 mg IV every 2 hours as needed added 06/11 -Acetaminophen 650 mg by tube every 6 hours as needed fever -Altered mentation secondary to toxic metabolic encephalopathy from sepsis and hypercapnia -PT/OT for passive range of motion RESP: Acute hypoxemic and hypercarbic respiratory failure Multiple pulmonary nodules/septic emboli Pulmonary edema Left Hemothorax MRSA pneumonia HCAP with MRSA- present on admission General surgery consulted for tracheostomy-Dr. Umana requests OR trach, plan for 06/18/[address] Acosta -Continue abx. daily /SBT as narciso. Ventilator bundle. Albuterol/ipratropium aerosols every 6 hours scheduled and albuterol aerosols every 2 hours as needed -MRSA pneumonia treatment below s/p 10 Fr pigtail chest tube, left, with >1L old dark blood. 06/07. Dislodged 9/6 s/p 28Fr CT placement 06/10 with 400ml removed on insertion, had minimal output last 24 hours. Remove chest tube after OR trach Fluid studies consistent with hemothorax CXR : Improved left lung airspace consolidation. There is residual bilateral airspace consolidation, left greater than right. CT of the chest shows multiple pulmonary nodules with some cavitation indicating septic emboli Trach planned for 06/18/18 CV: Septic shock Pulmonary edema-resolving Atrial fibrillation with RVR-currently rate controlled Acute severe anion gap Metabolic acidosis- resolved On vasopressin 0.04 units/min keep MAP>65mmHg. Levophed restarted now at 2 mcg /min, will wean off as tolerated A. fib rate is controlled and currently normal sinus rhythm, cannot anticoagulate due to history of recent GI bleed, and blood loss anemia Echo 06/12/2018 shows mild concentric left ventricular hypertrophy. The left ventricular systolic function is normal with an estimated ejection fraction in the range of 55-60%. There is trace tricuspid valve regurgitation. There is a small pericardial effusion present. GI/HEME/FEN: Recent GI bleed Acute normocytic anemia requiring transfusion Hyperphosphatemia Hyponatremia hypoalbuminemia -s/p Transfusion of 2U PRBC with HD 06/10, additional 2 units given 06/13/18 -GI consulted. Nepro tube feeds at 45 cc an hour per nutrition recommendations with Beneprotein 1 packet 3 times daily -IV pantoprazole 40 mg IV q12 -Docusate sodium/senna 1 tablet twice daily for bowel regimen -Calcium acetate 667 mg 3 times daily for elevated phosphorus. /renal: End-stage renal disease on hemodialysis HeRO graft placed 09/2017, now removed due to graft infection -Nephrology: Dr. Davidson following -Continue HD per nephrology, Getting HD today -Monitor renal function, I/O's, avoid nephrotoxins ID: Septic shock HeRO graft infection s/p removal HCAP pneumonia- present on admission MRSA septic emboli to lung Persistent MRSA bacteremia -MRSA bacteremia could be secondary to infected remnant of the AV graft, versus secondary seeding of the catheters Recent blood cultures since 06/05/2018 had been negative -Removed Vas-Cath, and left IJ central line 06/03/18 - 05/27, 05/28, 05/30, 06/01 and 06/04 blood cultures MRSA - 05/27 sputum cultures: Providencia, MRSA, e.coli - 06/02 wound with Arlet albicans - ID Dr. Morgan, abx management per ID - cont vancomycin: keep trough 15-20 cont rifampin - Continue fluconazole - Will need minimum 6 weeks coverage for MRSA graft infection - Dr. Umana following ENDO: Type 2 diabetes Presumed Adrenal insufficiency -Sliding scale insulin with aspart insulin every 4 hours -Status post stress steroids PROPH: -Bilateral lower extremity SCDs. IV Protonix 40 mg every 12. Chemical prophylaxis contraindicated due to anemia requiring transfusion LINES: -Removed OSH left IJ central line and OSH right femoral Vas-Cath on 06/03/2018 -New left femoral Vas-Cath placement 06/04/18 -left radial arterial line 05/27-removed 06/13/18 -New LIJ central line 06/08/18 due to ongoing pressor requirement Level 3 follow-up Patient still remains critically ill requiring vasopressin. levophed to keep map above 65. Encephalopathy persist continues to fail CPAP trial. Tracheostomy planned for 06/18/2018 as well as PEG tube
[2018-06-17] MEDS: Heparin 10,000 UNITS/10 ML Vial (for IV use) OTHER PRN ×2 (11:25→11:26)
[2018-06-17] MEDS: Vancomycin Inj 1,000 MG in Sodium Chlor 0.9% Inj 250 ML IV.SIG SCH (11:26)
--- NOTE | 2018-06-17 13:51 | P.PNGI ---
Subjective Interval history: Sedated and orally intubated. Rectal bag with liquid brown stool. TF through [email or web address] - [facility] [facility] currently running at 45 mL/hr. Pt currently receiving hemodialysis. Chest tube noted. <Riana Belcher - Last Filed: 06/17/18 13:39> Physical Exam Vital signs: Vital Signs 06/16/18 13:45 06/16/18 14:00 06/16/18 14:15 Temperature Pulse Rate 73 68 68 Respiratory Rate 18 29 H 14 Blood Pressure 124/64 91/51 L 101/56 L Pulse Oximetry 99 100 99 06/16/18 14:30 06/16/18 14:42 06/16/18 14:45 Temperature Pulse Rate 71 70 72 Respiratory Rate 18 21 19 Blood Pressure 107/63 95/56 L 114/58 L Pulse Oximetry 99 100 100 06/16/18 15:00 06/16/18 15:15 06/16/18 15:28 Temperature Pulse Rate 72 77 73 Respiratory Rate 15 17 19 Blood Pressure 113/55 L 100/56 L 111/55 L Pulse Oximetry 100 99 100 06/16/18 15:30 06/16/18 15:36 06/16/18 15:45 Temperature Pulse Rate 73 71 72 Respiratory Rate 17 19 17 Blood Pressure 107/59 L 105/59 L 87/53 L Pulse Oximetry 100 100 100 06/16/18 16:00 06/16/18 16:01 06/16/18 16:11 Temperature 97.8 F Pulse Rate 83 83 78 Respiratory Rate 20 18 20 Blood Pressure 103/56 L Pulse Oximetry 100 98 100 06/16/18 16:15 06/16/18 16:30 06/16/18 16:46 Temperature Pulse Rate 73 73 69 Respiratory Rate 20 16 22 Blood Pressure 90/52 L 76/47 L 96/53 L Pulse Oximetry 100 99 99 06/16/18 17:00 06/16/18 17:01 06/16/18 17:15 Temperature Pulse Rate 67 67 67 Respiratory Rate 21 19 17 Blood Pressure 120/60 96/53 L Pulse Oximetry 100 100 100 06/16/18 17:30 06/16/18 17:45 06/16/18 18:00 Temperature Pulse Rate 71 81 83 Respiratory Rate 18 19 24 Blood Pressure 84/52 L 83/61 L 78/51 L Pulse Oximetry 99 98 96 06/16/18 18:16 06/16/18 20:00 06/16/18 20:27 Temperature 99.0 F Pulse Rate 75 66 67 Respiratory Rate 19 20 16 Blood Pressure 112/65 116/58 L Pulse Oximetry 99 96 100 06/16/18 20:28 06/16/18 22:00 06/16/18 23:20 Temperature Pulse Rate 71 80 Respiratory Rate 16 12 16 Blood Pressure 104/55 L Pulse Oximetry 97 99 06/17/18 00:00 06/17/18 02:00 06/17/18 02:08 Temperature Pulse Rate 69 69 Respiratory Rate 13 17 17 Blood Pressure 100/56 L 95/53 L Pulse Oximetry 97 96 06/17/18 03:34 06/17/18 03:35 06/17/18 04:00 Temperature Pulse Rate 71 81 Respiratory Rate 16 16 23 Blood Pressure 144/73 H Pulse Oximetry 97 98 06/17/18 06:00 06/17/18 06:31 06/17/18 06:45 Temperature Pulse Rate 74 80 73 Respiratory Rate 32 H 18 29 H Blood Pressure 124/80 142/69 H Pulse Oximetry 96 93 L 98 06/17/18 07:00 06/17/18 07:15 06/17/18 07:30 Temperature 98.8 F Pulse Rate 70 70 70 Respiratory Rate 23 25 H 27 H Blood Pressure 130/63 122/65 126/66 Pulse Oximetry 97 98 97 06/17/18 07:45 06/17/18 08:00 06/17/18 08:15 Temperature Pulse Rate 75 74 72 Respiratory Rate 31 H 37 H 19 Blood Pressure 153/70 H 141/74 H 133/65 Pulse Oximetry 97 97 97 06/17/18 08:26 06/17/18 08:30 06/17/18 08:45 Temperature Pulse Rate 75 84 80 Respiratory Rate 18 23 19 Blood Pressure 145/66 H 139/63 Pulse Oximetry 98 97 96 06/17/18 09:01 06/17/18 09:16 06/17/18 09:30 Temperature Pulse Rate 78 74 76 Respiratory Rate 23 26 H 24 Blood Pressure 149/95 H 116/60 120/60 Pulse Oximetry 93 L 97 96 06/17/18 09:45 06/17/18 10:00 06/17/18 10:01 Temperature Pulse Rate 80 106 H 91 H Respiratory Rate 26 H 21 Blood Pressure 127/60 147/67 H Pulse Oximetry 95 95 06/17/18 10:15 06/17/18 10:30 06/17/18 10:46 Temperature Pulse Rate 90 90 103 H Respiratory Rate 22 19 21 Blood Pressure 160/70 H 141/70 H 159/85 H Pulse Oximetry 95 94 L 96 06/17/18 10:48 06/17/18 10:57 06/17/18 11:00 Temperature Pulse Rate 97 H 98 H Respiratory Rate 24 23 18 Blood Pressure 136/65 147/65 H Pulse Oximetry 97 96 94 L 06/17/18 11:15 06/17/18 11:30 06/17/18 11:45 Temperature Pulse Rate 97 H 106 H 106 H Respiratory Rate 23 22 30 H Blood Pressure 139/77 137/72 144/74 H Pulse Oximetry 95 93 L 94 L 06/17/18 12:00 06/17/18 12:15 06/17/18 12:45 Temperature 99.9 F H Pulse Rate 108 H 110 H 109 H Respiratory Rate 21 24 24 Blood Pressure 136/62 106/56 L Pulse Oximetry 96 96 96 06/17/18 13:00 06/17/18 13:08 06/17/18 13:29 Temperature Pulse Rate 109 H 111 H Respiratory Rate 20 29 H 17 Blood Pressure 87/50 L 138/61 Pulse Oximetry 96 95 97 06/17/18 13:38 Temperature Pulse Rate 107 H Respiratory Rate 17 Blood Pressure Pulse Oximetry Intake & Output 06/16/18 06/17/18 06/17/18 18:59 06:59 18:59 Intake Total 822 / 822 1154 / 1154 Output Total 5000 / 5000 200 / 200 Balance -4178 / -4178 954 / 954 Weight 138.9 kg Intake: IV 500 / 500 550 / 550 Diprivan 1000 mg/100 ml Inj 1, 200 / 200 100 / 100 000 mg In 100 ml @ 5 MCG/KG/MIN 3.87 mls/hr IV.CONT TITRATE PRN Rx#:[id number] Pitressin Inj 40 UNIT In D5W 100 / 100 100 / 100 Inj 98 ML @ 0.01 UNITS/MIN 1.5 mls/hr IV.CONT TITRATE PRN Rx#: [id number] Flexbumin 25% Inj 100 ML @ 60 200 / 200 mls/hr IV.SIG WITH DIALYSIS PRN Rx#:[id number] Diflucan 200 mg Premix Bag 200 100 / 100 MG In Bag/Syringe 1 EACH @ 100 mls/hr IV.SIG Q24H [facility] Rx#: [id number] fentaNYL 10 mcg/mL Premix Drip 250 / 250 2,500 mcg In 250 ml @ 50 MCG/HR 5 mls/hr IV.SIG TITRATE PRN Rx #:[id number] Tube Feeding 202 / 202 364 / 364 Water Bolus Amount 120 / 120 240 / 240 Output: Stool 200 / 200 Hemodialysis Amount 5000 / 5000 Chest Tube Drainage 0 / 0 #2 Left Lower Mid-Axillary 0 / 0 Chest Other: Date of Last Bowel Movement 06/16/18 06/17/18 06/17/18 - Constitutional no acute distress - Routine HEENT Exam Head: Present: normocephalic, atraumatic - Routine Respiratory Exam Present: patient mechanically ventilated - Routine Cardiovascular Exam Present: irregularly irregular - Routine Abdominal Exam Present: soft, normoactive bowel sounds. Absent: distended - Urinary Catheter Management Suprapubic Cath placed during this visit: no <Riana Belcher - Last Filed: 06/17/18 13:39> Vital signs: Vital Signs 06/16/18 14:42 06/16/18 14:45 06/16/18 15:00 Temperature Pulse Rate 70 72 72 Respiratory Rate 21 19 15 Blood Pressure 95/56 L 114/58 L 113/55 L Pulse Oximetry 100 100 100 06/16/18 15:15 06/16/18 15:28 06/16/18 15:30 Temperature Pulse Rate 77 73 73 Respiratory Rate 17 19 17 Blood Pressure 100/56 L 111/55 L 107/59 L Pulse Oximetry 99 100 100 06/16/18 15:36 06/16/18 15:45 06/16/18 16:00 Temperature 97.8 F Pulse Rate 71 72 83 Respiratory Rate 19 17 20 Blood Pressure 105/59 L 87/53 L Pulse Oximetry 100 100 100 06/16/18 16:01 06/16/18 16:11 06/16/18 16:15 Temperature Pulse Rate 83 78 73 Respiratory Rate 18 20 20 Blood Pressure 103/56 L 90/52 L Pulse Oximetry 98 100 100 06/16/18 16:30 06/16/18 16:46 06/16/18 17:00 Temperature Pulse Rate 73 69 67 Respiratory Rate 16 22 21 Blood Pressure 76/47 L 96/53 L Pulse Oximetry 99 99 100 06/16/18 17:01 06/16/18 17:15 06/16/18 17:30 Temperature Pulse Rate 67 67 71 Respiratory Rate 19 17 18 Blood Pressure 120/60 96/53 L 84/52 L Pulse Oximetry 100 100 99 06/16/18 17:45 06/16/18 18:00 06/16/18 18:16 Temperature Pulse Rate 81 83 75 Respiratory Rate 19 24 19 Blood Pressure 83/61 L 78/51 L 112/65 Pulse Oximetry 98 96 99 06/16/18 20:00 06/16/18 20:27 06/16/18 20:28 Temperature 99.0 F Pulse Rate 66 67 71 Respiratory Rate 20 16 16 Blood Pressure 116/58 L Pulse Oximetry 96 100 06/16/18 22:00 06/16/18 23:20 06/17/18 00:00 Temperature Pulse Rate 80 69 Respiratory Rate 12 16 13 Blood Pressure 104/55 L 100/56 L Pulse Oximetry 97 99 97 06/17/18 02:00 06/17/18 02:08 06/17/18 03:34 Temperature Pulse Rate 69 71 Respiratory Rate 17 17 16 Blood Pressure 95/53 L Pulse Oximetry 96 06/17/18 03:35 06/17/18 04:00 06/17/18 06:00 Temperature Pulse Rate 81 74 Respiratory Rate 16 23 32 H Blood Pressure 144/73 H 124/80 Pulse Oximetry 97 98 96 06/17/18 06:31 06/17/18 06:45 06/17/18 07:00 Temperature 98.8 F Pulse Rate 80 73 70 Respiratory Rate 18 29 H 23 Blood Pressure 142/69 H 130/63 Pulse Oximetry 93 L 98 97 06/17/18 07:15 06/17/18 07:30 06/17/18 07:45 Temperature Pulse Rate 70 70 75 Respiratory Rate 25 H 27 H 31 H Blood Pressure 122/65 126/66 153/70 H Pulse Oximetry 98 97 97 06/17/18 08:00 06/17/18 08:15 06/17/18 08:26 Temperature Pulse Rate 74 72 75 Respiratory Rate 37 H 19 18 Blood Pressure 141/74 H 133/65 Pulse Oximetry 97 97 98 06/17/18 08:30 06/17/18 08:45 06/17/18 09:01 Temperature Pulse Rate 84 80 78 Respiratory Rate 23 19 23 Blood Pressure 145/66 H 139/63 149/95 H Pulse Oximetry 97 96 93 L 06/17/18 09:16 06/17/18 09:30 06/17/18 09:45 Temperature Pulse Rate 74 76 80 Respiratory Rate 26 H 24 26 H Blood Pressure 116/60 120/60 127/60 Pulse Oximetry 97 96 95 06/17/18 10:00 06/17/18 10:01 06/17/18 10:15 Temperature Pulse Rate 106 H 91 H 90 Respiratory Rate 21 22 Blood Pressure 147/67 H 160/70 H Pulse Oximetry 95 95 06/17/18 10:30 06/17/18 10:46 06/17/18 10:48 Temperature Pulse Rate 90 103 H Respiratory Rate 19 21 24 Blood Pressure 141/70 H 159/85 H Pulse Oximetry 94 L 96 97 06/17/18 10:57 06/17/18 11:00 06/17/18 11:15 Temperature Pulse Rate 97 H 98 H 97 H Respiratory Rate 23 18 23 Blood Pressure 136/65 147/65 H 139/77 Pulse Oximetry 96 94 L 95 06/17/18 11:30 06/17/18 11:45 06/17/18 12:00 Temperature 99.9 F H Pulse Rate 106 H 106 H 108 H Respiratory Rate 22 30 H 21 Blood Pressure 137/72 144/74 H Pulse Oximetry 93 L 94 L 96 06/17/18 12:15 06/17/18 12:45 06/17/18 13:00 Temperature Pulse Rate 110 H 109 H 109 H Respiratory Rate 24 24 20 Blood Pressure 136/62 106/56 L 87/50 L Pulse Oximetry 96 96 96 06/17/18 13:08 06/17/18 13:29 06/17/18 13:38 Temperature Pulse Rate 111 H 107 H Respiratory Rate 29 H 17 17 Blood Pressure 138/61 Pulse Oximetry 95 97 Intake & Output 06/16/18 06/17/18 06/17/18 18:59 06:59 18:59 Intake Total 822 / 822 1154 / 1154 Output Total 5000 / 5000 200 / 200 Balance -4178 / -4178 954 / 954 Weight 138.9 kg Intake: IV 500 / 500 550 / 550 Diprivan 1000 mg/100 ml Inj 1, 200 / 200 100 / 100 000 mg In 100 ml @ 5 MCG/KG/MIN 3.87 mls/hr IV.CONT TITRATE PRN Rx#:[id number] Pitressin Inj 40 UNIT In D5W 100 / 100 100 / 100 Inj 98 ML @ 0.01 UNITS/MIN 1.5 mls/hr IV.CONT TITRATE PRN Rx#: [id number] Flexbumin 25% Inj 100 ML @ 60 200 / 200 mls/hr IV.SIG WITH DIALYSIS PRN Rx#:[id number] Diflucan 200 mg Premix Bag 200 100 / 100 MG In Bag/Syringe 1 EACH @ 100 mls/hr IV.SIG Q24H [facility] Rx#: [id number] fentaNYL 10 mcg/mL Premix Drip 250 / 250 2,500 mcg In 250 ml @ 50 MCG/HR 5 mls/hr IV.SIG TITRATE PRN Rx #:[id number] Tube Feeding 202 / 202 364 / 364 Water Bolus Amount 120 / 120 240 / 240 Output: Stool 200 / 200 Hemodialysis Amount 5000 / 5000 Chest Tube Drainage 0 / 0 #2 Left Lower Mid-Axillary 0 / 0 Chest Other: Date of Last Bowel Movement 06/16/18 06/17/18 06/17/18 - Urinary Catheter Management Suprapubic Cath placed during this visit: no <Justin Meier - Last Filed: 06/17/18 14:35> Results - Labs CBC & Chem 7: 06/16/18 04:00 06/16/18 04:00 Laboratory Results - last 24 hr 06/16/18 06/16/18 06/16/18 15:58 20:01 23:54 POC Glucose 162 H 171 H 188 H 06/17/18 06/17/18 06/17/18 05:00 07:46 12:12 POC Glucose 110 174 H 192 H - Imaging Impressions Abdomen X-Ray 06/17/18 00:00 CONCLUSION: NG tube as above. <Riana Belcher - Last Filed: 06/17/18 13:39> - Labs CBC & Chem 7: 06/16/18 04:00 06/16/18 04:00 Laboratory Results - last 24 hr 06/16/18 06/16/18 06/16/18 15:58 20:01 23:54 POC Glucose 162 H 171 H 188 H 06/17/18 06/17/18 06/17/18 05:00 07:46 12:12 POC Glucose 110 174 H 192 H - Imaging Impressions Abdomen X-Ray 06/17/18 00:00 CONCLUSION: NG tube as above. <Justin Meier - Last Filed: 06/17/18 14:35> Assessment and Plan (1) Nutritional anemia Status: Acute Code(s): D53.9 - Nutritional anemia, unspecified - Plan Assessment: - Anemia with recent GIB EGD (05/25) --> Normal esophagus. Entire examined stomach was normal. One non- obstructing cratered duodenal ulcer with spurting hemorrhage was found in the duodenal bulb. Lesion was 10 mm in largest dimension. No evidence of perforation. Hemostatic clips and epi applied with successful hemostasis. H/H was 7.0/19.3 on day of discharge (05/27) Pt with no obvious GIB at this time. Likely anemia is multifactorial given ESRD on HD, receives Epogen. Has received 8 U PRBCs since admission - PEG tube consult- Pt encephalopathic and has repeatedly failed CPAP trial- plan for tracheostomy and PEG tomorrow. currently receiving Nepro at 45 mL/hr through NG Plan EGD with PEG tomorrow Obtain consent Hold TF after MN Protonix BID Further recommendations to follow Patient has been seen and examined by myself and Dr. Meier and this note is written on his behalf <Riana Belcher - Last Filed: 06/17/18 13:39> (1) Nutritional anemia Status: Acute Code(s): D53.9 - Nutritional anemia, unspecified - Attending Attestation Seen and examined, plan as above. Will schedule EGD/PEG in AM. <Justin Meier - Last Filed: 06/17/18 14:35>
--- NOTE | 2018-06-17 14:52 | P.PNNP ---
Subjective Interval history: Patient is on hemodialysis done earlier on CPAP trial Physical Exam Vital signs: Vital Signs 06/16/18 15:00 06/16/18 15:15 06/16/18 15:28 Temperature Pulse Rate 72 77 73 Respiratory Rate 15 17 19 Blood Pressure 113/55 L 100/56 L 111/55 L Pulse Oximetry 100 99 100 06/16/18 15:30 06/16/18 15:36 06/16/18 15:45 Temperature Pulse Rate 73 71 72 Respiratory Rate 17 19 17 Blood Pressure 107/59 L 105/59 L 87/53 L Pulse Oximetry 100 100 100 06/16/18 16:00 06/16/18 16:01 06/16/18 16:11 Temperature 97.8 F Pulse Rate 83 83 78 Respiratory Rate 20 18 20 Blood Pressure 103/56 L Pulse Oximetry 100 98 100 06/16/18 16:15 06/16/18 16:30 06/16/18 16:46 Temperature Pulse Rate 73 73 69 Respiratory Rate 20 16 22 Blood Pressure 90/52 L 76/47 L 96/53 L Pulse Oximetry 100 99 99 06/16/18 17:00 06/16/18 17:01 06/16/18 17:15 Temperature Pulse Rate 67 67 67 Respiratory Rate 21 19 17 Blood Pressure 120/60 96/53 L Pulse Oximetry 100 100 100 06/16/18 17:30 06/16/18 17:45 06/16/18 18:00 Temperature Pulse Rate 71 81 83 Respiratory Rate 18 19 24 Blood Pressure 84/52 L 83/61 L 78/51 L Pulse Oximetry 99 98 96 06/16/18 18:16 06/16/18 20:00 06/16/18 20:27 Temperature 99.0 F Pulse Rate 75 66 67 Respiratory Rate 19 20 16 Blood Pressure 112/65 116/58 L Pulse Oximetry 99 96 100 06/16/18 20:28 06/16/18 22:00 06/16/18 23:20 Temperature Pulse Rate 71 80 Respiratory Rate 16 12 16 Blood Pressure 104/55 L Pulse Oximetry 97 99 06/17/18 00:00 06/17/18 02:00 06/17/18 02:08 Temperature Pulse Rate 69 69 Respiratory Rate 13 17 17 Blood Pressure 100/56 L 95/53 L Pulse Oximetry 97 96 06/17/18 03:34 06/17/18 03:35 06/17/18 04:00 Temperature Pulse Rate 71 81 Respiratory Rate 16 16 23 Blood Pressure 144/73 H Pulse Oximetry 97 98 06/17/18 06:00 06/17/18 06:31 06/17/18 06:45 Temperature Pulse Rate 74 80 73 Respiratory Rate 32 H 18 29 H Blood Pressure 124/80 142/69 H Pulse Oximetry 96 93 L 98 06/17/18 07:00 06/17/18 07:15 06/17/18 07:30 Temperature 98.8 F Pulse Rate 70 70 70 Respiratory Rate 23 25 H 27 H Blood Pressure 130/63 122/65 126/66 Pulse Oximetry 97 98 97 06/17/18 07:45 06/17/18 08:00 06/17/18 08:15 Temperature Pulse Rate 75 74 72 Respiratory Rate 31 H 37 H 19 Blood Pressure 153/70 H 141/74 H 133/65 Pulse Oximetry 97 97 97 06/17/18 08:26 06/17/18 08:30 06/17/18 08:45 Temperature Pulse Rate 75 84 80 Respiratory Rate 18 23 19 Blood Pressure 145/66 H 139/63 Pulse Oximetry 98 97 96 06/17/18 09:01 06/17/18 09:16 06/17/18 09:30 Temperature Pulse Rate 78 74 76 Respiratory Rate 23 26 H 24 Blood Pressure 149/95 H 116/60 120/60 Pulse Oximetry 93 L 97 96 06/17/18 09:45 06/17/18 10:00 06/17/18 10:01 Temperature Pulse Rate 80 106 H 91 H Respiratory Rate 26 H 21 Blood Pressure 127/60 147/67 H Pulse Oximetry 95 95 06/17/18 10:15 06/17/18 10:30 06/17/18 10:46 Temperature Pulse Rate 90 90 103 H Respiratory Rate 22 19 21 Blood Pressure 160/70 H 141/70 H 159/85 H Pulse Oximetry 95 94 L 96 06/17/18 10:48 06/17/18 10:57 06/17/18 11:00 Temperature Pulse Rate 97 H 98 H Respiratory Rate 24 23 18 Blood Pressure 136/65 147/65 H Pulse Oximetry 97 96 94 L 06/17/18 11:15 06/17/18 11:30 06/17/18 11:45 Temperature Pulse Rate 97 H 106 H 106 H Respiratory Rate 23 22 30 H Blood Pressure 139/77 137/72 144/74 H Pulse Oximetry 95 93 L 94 L 06/17/18 12:00 06/17/18 12:15 06/17/18 12:45 Temperature 99.9 F H Pulse Rate 108 H 110 H 109 H Respiratory Rate 21 24 24 Blood Pressure 136/62 106/56 L Pulse Oximetry 96 96 96 06/17/18 13:00 06/17/18 13:08 06/17/18 13:29 Temperature Pulse Rate 109 H 111 H Respiratory Rate 20 29 H 17 Blood Pressure 87/50 L 138/61 Pulse Oximetry 96 95 97 06/17/18 13:38 Temperature Pulse Rate 107 H Respiratory Rate 17 Blood Pressure Pulse Oximetry Intake & Output 06/16/18 06/17/18 06/17/18 18:59 06:59 18:59 Intake Total 822 / 822 1154 / 1154 Output Total 5000 / 5000 200 / 200 3500 / 3500 Balance -4178 / -4178 954 / 954 -3500 / -3500 Weight 138.9 kg Intake: IV 500 / 500 550 / 550 Diprivan 1000 mg/100 ml Inj 1, 200 / 200 100 / 100 000 mg In 100 ml @ 5 MCG/KG/MIN 3.87 mls/hr IV.CONT TITRATE PRN Rx#:[id number] Pitressin Inj 40 UNIT In D5W 100 / 100 100 / 100 Inj 98 ML @ 0.01 UNITS/MIN 1.5 mls/hr IV.CONT TITRATE PRN Rx#: [id number] Flexbumin 25% Inj 100 ML @ 60 200 / 200 mls/hr IV.SIG WITH DIALYSIS PRN Rx#:[id number] Diflucan 200 mg Premix Bag 200 100 / 100 MG In Bag/Syringe 1 EACH @ 100 mls/hr IV.SIG Q24H [facility] Rx#: [id number] fentaNYL 10 mcg/mL Premix Drip 250 / 250 2,500 mcg In 250 ml @ 50 MCG/HR 5 mls/hr IV.SIG TITRATE PRN Rx #:[id number] Tube Feeding 202 / 202 364 / 364 Water Bolus Amount 120 / 120 240 / 240 Output: Stool 200 / 200 Hemodialysis Amount 5000 / 5000 3500 / 3500 Chest Tube Drainage 0 / 0 #2 Left Lower Mid-Axillary 0 / 0 Chest Other: Date of Last Bowel Movement 06/16/18 06/17/18 06/17/18 Narrative: Intubated/Sedated Resp: CTAB on minimal vent settings Cardio: RRR Abd: soft non tender Large dressing on RIGHT side of neck LEFT sided chest tube in place - Urinary Catheter Management Suprapubic Cath placed during this visit: no Assessment and Plan - Assessment (1) End stage renal disease on dialysis Code(s): N18.6 - End stage renal disease; Z99.2 - Dependence on renal dialysis Status: Acute (2) Hemodialysis access, AV graft Code(s): Z99.2 - Dependence on renal dialysis Status: Acute - Plan Patient has sepsis and undergoing treatment with IV vancomycin Patient low blood pressure on vasopressors Patient had dialysis 3.5 L was removed he is scheduled to undergo another treatment he may have tracheostomy and PEG tube placement Apparent HeRO infection and MRSA: Removal of previous left IJ port, s/p partial removal for right arm graft and HeRO outflow component. Ongoing hypotension - follow with ID and Vascular --
[2018-06-17] MEDS: HYDROmorphone PF Inj 2 MG/ML Vial IV.PUSH PRN (17:30)
--- NOTE | 2018-06-17 19:17 | P.PN ---
Subjective Interval history: Underwent dialysis today. No changes. Physical Exam Vital signs: Vital Signs 06/16/18 20:00 06/16/18 20:27 06/16/18 20:28 Temperature 99.0 F Pulse Rate 66 67 71 Respiratory Rate 20 16 16 Blood Pressure 116/58 L Pulse Oximetry 96 100 06/16/18 22:00 06/16/18 23:20 06/17/18 00:00 Temperature Pulse Rate 80 69 Respiratory Rate 12 16 13 Blood Pressure 104/55 L 100/56 L Pulse Oximetry 97 99 97 06/17/18 02:00 06/17/18 02:08 06/17/18 03:34 Temperature Pulse Rate 69 71 Respiratory Rate 17 17 16 Blood Pressure 95/53 L Pulse Oximetry 96 06/17/18 03:35 06/17/18 04:00 06/17/18 06:00 Temperature Pulse Rate 81 74 Respiratory Rate 16 23 32 H Blood Pressure 144/73 H 124/80 Pulse Oximetry 97 98 96 06/17/18 06:31 06/17/18 06:45 06/17/18 07:00 Temperature 98.8 F Pulse Rate 80 73 70 Respiratory Rate 18 29 H 23 Blood Pressure 142/69 H 130/63 Pulse Oximetry 93 L 98 97 06/17/18 07:15 06/17/18 07:30 06/17/18 07:45 Temperature Pulse Rate 70 70 75 Respiratory Rate 25 H 27 H 31 H Blood Pressure 122/65 126/66 153/70 H Pulse Oximetry 98 97 97 06/17/18 08:00 06/17/18 08:15 06/17/18 08:26 Temperature Pulse Rate 74 72 75 Respiratory Rate 37 H 19 18 Blood Pressure 141/74 H 133/65 Pulse Oximetry 97 97 98 06/17/18 08:30 06/17/18 08:45 06/17/18 09:01 Temperature Pulse Rate 84 80 78 Respiratory Rate 23 19 23 Blood Pressure 145/66 H 139/63 149/95 H Pulse Oximetry 97 96 93 L 06/17/18 09:16 06/17/18 09:30 06/17/18 09:45 Temperature Pulse Rate 74 76 80 Respiratory Rate 26 H 24 26 H Blood Pressure 116/60 120/60 127/60 Pulse Oximetry 97 96 95 06/17/18 10:00 06/17/18 10:01 06/17/18 10:15 Temperature Pulse Rate 106 H 91 H 90 Respiratory Rate 21 22 Blood Pressure 147/67 H 160/70 H Pulse Oximetry 95 95 06/17/18 10:30 06/17/18 10:46 06/17/18 10:48 Temperature Pulse Rate 90 103 H Respiratory Rate 19 21 24 Blood Pressure 141/70 H 159/85 H Pulse Oximetry 94 L 96 97 06/17/18 10:57 06/17/18 11:00 06/17/18 11:15 Temperature Pulse Rate 97 H 98 H 97 H Respiratory Rate 23 18 23 Blood Pressure 136/65 147/65 H 139/77 Pulse Oximetry 96 94 L 95 06/17/18 11:30 06/17/18 11:45 06/17/18 12:00 Temperature 99.9 F H Pulse Rate 106 H 106 H 108 H Respiratory Rate 22 30 H 21 Blood Pressure 137/72 144/74 H Pulse Oximetry 93 L 94 L 96 06/17/18 12:15 06/17/18 12:45 06/17/18 13:00 Temperature Pulse Rate 110 H 109 H 109 H Respiratory Rate 24 24 20 Blood Pressure 136/62 106/56 L 87/50 L Pulse Oximetry 96 96 96 06/17/18 13:08 06/17/18 13:15 06/17/18 13:29 Temperature 98.3 F Pulse Rate 111 H 112 H Respiratory Rate 29 H 22 17 Blood Pressure 138/61 116/58 L Pulse Oximetry 95 96 97 06/17/18 13:30 06/17/18 13:38 06/17/18 13:45 Temperature Pulse Rate 111 H 107 H 111 H Respiratory Rate 22 17 24 Blood Pressure 97/56 L 95/59 L Pulse Oximetry 97 96 06/17/18 14:00 06/17/18 14:01 06/17/18 14:02 Temperature Pulse Rate 111 H 110 H 111 H Respiratory Rate 21 22 20 Blood Pressure 90/52 L 90/53 L 80/49 L Pulse Oximetry 94 L 95 95 06/17/18 14:04 06/17/18 14:05 06/17/18 14:06 Temperature Pulse Rate 110 H 108 H 110 H Respiratory Rate 15 15 18 Blood Pressure 78/57 L 79/53 L 93/53 L Pulse Oximetry 95 95 96 06/17/18 14:15 09/12/18 14:30 06/17/18 14:42 Temperature Pulse Rate 109 H 106 H 101 H Respiratory Rate 16 33 H 17 Blood Pressure 92/55 L 94/51 L 98/55 L Pulse Oximetry 95 95 97 06/17/18 14:45 06/17/18 15:01 Temperature Pulse Rate 104 H 107 H Respiratory Rate 17 31 H Blood Pressure 87/56 L 109/65 Pulse Oximetry 97 97 Intake & Output 06/17/18 06/17/18 06/18/18 06:59 18:59 06:59 Intake Total 1154 / 1154 Output Total 200 / 200 3500 / 3500 Balance 954 / 954 -3500 / -3500 Weight 138.9 kg Intake: IV 550 / 550 Diprivan 1000 mg/100 ml Inj 1, 100 / 100 000 mg In 100 ml @ 5 MCG/KG/MIN 3.87 mls/hr IV.CONT TITRATE PRN Rx#:[id number] Pitressin Inj 40 UNIT In D5W 100 / 100 Inj 98 ML @ 0.01 UNITS/MIN 1.5 mls/hr IV.CONT TITRATE PRN Rx#: [id number] Diflucan 200 mg Premix Bag 200 100 / 100 MG In Bag/Syringe 1 EACH @ 100 mls/hr IV.SIG Q24H [facility] Rx#: [id number] fentaNYL 10 mcg/mL Premix Drip 250 / 250 2,500 mcg In 250 ml @ 50 MCG/HR 5 mls/hr IV.SIG TITRATE PRN Rx #:[id number] Tube Feeding 364 / 364 Water Bolus Amount 240 / 240 Output: Stool 200 / 200 Hemodialysis Amount 3500 / 3500 Chest Tube Drainage 0 / 0 #2 Left Lower Mid-Axillary 0 / 0 Chest Other: Date of Last Bowel Movement 06/17/18 06/17/18 - Constitutional no acute distress - Urinary Catheter Management Suprapubic Cath placed during this visit: no Results - Labs CBC & Chem 7: 06/16/18 04:00 06/16/18 04:00 Laboratory Results - last 24 hr 06/16/18 06/16/18 06/17/18 20:01 23:54 05:00 POC Glucose 171 H 188 H 110 06/17/18 06/17/18 06/17/18 07:46 12:12 17:33 POC Glucose 174 H 192 H 169 H - Imaging Impressions Abdomen X-Ray 06/17/18 00:00 CONCLUSION: NG tube as above. Assessment and Plan - Assessment (1) Ventilator dependence Code(s): Z99.11 - Dependence on respirator [ventilator] status Status: Acute Plan: Open tracheostomy tomorrow at noon. - Attending Attestation I attest that I had a [id number] encounter with the patient on the same day, and personally performed and documented my assessment and findings in the medical record. The following services were provided during this hospital visit: Chart data review, vital sign assessments/reviewing monitor data Review of consultation notes if present Medication orders/review and/or management Ordering and/or reviewing lab tests Ordering and/or interpreting/reviewing x-rays and/or diagnostic studies Care of the patient and discussion of the patient with the care team Documentation time To help prompt me to consider important information that might be impacting today's encounter and assessment, Information from prior notes written by myself or my colleagues may have been "brought forward/copy and pasted" into today's note.
[2018-06-17] MEDS: FLUCONAZOLE IV.SIG SCH (21:04)
[2018-06-18] MEDS: Sodium Chlor 0.9% Inj 100 ML IV.SIG SCH ×4 (00:28→06:45)
[2018-06-18] MEDS: Insulin NovoLOG Aspart Correctional Sugar Inj SQ SCH ×6 (00:33→21:33)
[2018-06-18 04:45] LABS: Hematocrit 27.1 % (39.0-51.0); Hemoglobin 9.2 gm/dL (13.0-17.0); Mean Corpuscular HGB Conc 34.1 % (32.0-36.0); Mean Corpuscular Hemoglobin 30.1 pg (27.0-34.0); Mean Corpuscular Volume 88.4 fL (80.0-100.0); Mean Platelet Volume 7.6 fL (7.0-11.0); Platelet Count 288 th/mm3 (150-450); Red Blood Count 3.06 mil/mm3 (4.50-5.90); Red Cell Distribution Width 15.5 % (11.6-17.2); White Blood Count 5.6 th/mm3 (4.0-11.0)
[2018-06-18 05:08] LABS: Alanine Aminotransferase 12 U/L (12-78); Albumin 3.4 g/dL (3.4-5.0); Anion Gap 12 meq/L (5-15); Aspartate Aminotransferase 16 U/L (15-37); Blood Urea Nitrogen 44 mg/dL (7-18); Calcium 10.3 mg/dL (8.5-10.1); Carbon Dioxide 25.9 meq/L (21.0-32.0); Chloride 95 meq/L (98-107); Glomerular Filtration Rate 11 mL/min (>89); Glucose,Random 174 mg/dL (74-106); Potassium 3.6 meq/L (3.5-5.1); Sodium 133 meq/L (136-145)
[2018-06-18 05:11] LABS: Alkaline Phosphatase 130 U/L (45-117); Total Protein 9.8 g/dL (6.4-8.2)
--- NOTE | 2018-06-18 05:37 | XR ---
EXAM DATE: 06/18/2018 4:57 AM EDT AGE/SEX: 73 years / Male INDICATIONS: Shortness of breath, possible pulmonary disease. CLINICAL DATA: This is the patient's subsequent encounter. Patient reports that signs and symptoms h ave been present for 1 month and indicates a pain score of Nonresponsive. MEDICAL/SURGICAL HISTORY: Cardiovascular disease. Hypertension. Renal disease, end stage. Non e. COMPARISON: [facility] [place]/O [place], 06/10/2018. . FINDINGS: Endotracheal tube in good position. NG enters stomach. Left central line in left brachiocephalic vein . Bilateral mostly basilar and perihilar airspace disease with small left effusion. CONCLUSION: Stable bilateral mostly basilar airspace disease. Stable support apparatus. Presumed chest tube overl ies lower left chest. Electronically signed by: Alexander Dale MD 06/18/2018 5:35 AM EDT
[2018-06-18] MEDS: fentaNYL 10 mcg/mL Premix Drip 2,500 MCG/250 ML BAG IV.SIG PRN (05:38)
[2018-06-18] MEDS: Pantoprazole Inj 40 MG Vial IV.PUSH SCH ×2 (10:24→22:07)
[2018-06-18] MEDS: Mupirocin 2% Nasal Oint Topical Syringe EACH NARE SCH ×2 (10:24→21:33)
[2018-06-18] MEDS: Calcium Acetate 667 MG Capsule PO SCH ×3 (10:25→17:21)
[2018-06-18] MEDS: Beneprotein Powder Packet G-TUBE SCH ×3 (10:25→17:21)
[2018-06-18] MEDS: Hypromellose 0.3% Opth Gel 10 GM Bottle EACH EYE SCH ×2 (10:25→21:33)
--- NOTE | 2018-06-18 10:43 | P.PNCC ---
Subjective Subjective Remarks/Hospital Course: Mr. Laguerre is a 73-year-old -Vincent[place] male with past medical history significant for end-stage renal disease on hemodialysis, hypertension, complicated vascular access, HeRO graft placement by Dr. Umana on 09/23/2017, revision and PTFE replacement 12/25/17. who presented to the [facility] with probable sepsis and shock. Dr. Umana was contacted and patient was accepted for transfer to CVICU in [facility]. I immediately evaluated the patient on arrival to CVICU. Patient is currently on BiPAP (transported on BiPAP) severely encephalopathic hardly wakes up to sternal rub, with a rapid shallow breathing. BiPAP settings 18/8, 60% FiO2. He is literally unresponsive and not protecting airway. Currently he is on Levophed at 20 mcg/min with a map 65-70. He is also on amiodarone for atrial fibrillation with RVR. Because of lack of airway protection, severe encephalopathy, septic shock and hypoxia I proceeded with endotracheal intubation. His glottic opening was completely occluded with thick secretions, several minutes of suctioning needed to clear the secretions prior to intubation. Postintubation Levophed had to be increased to 30 mcg/min, I also placed an arterial line. All cultures, routine labs and lactic acid pending at this time. I have started him on vancomycin and Zosyn. Discussed case with Dr. Umana extensively Patient was unable to provide any history, according to the RN who got report patient apparently had GI bleed, underwent EGD with cauterization of duodenal ulcer few days ago. Will avoid heparin for DVT prophylaxis. His postintubation ABG showed severe hypoxia with significant AA gradient, metabolic acidosis, and a hemoglobin of 7.6. Currently Levophed is increased to 30 mcg/min, I will transfuse 1 unit PRBC. Chest x-ray shows pulmonary edema will arrange for hemodialysis once his shock is improves. At this time he will not be able to tolerate either hemodialysis or even CVVH 05/28: initially evaluated around 6:30am. patient in refractory septic shock. added epinephrine to levophed and vasopressin. discussed with Dr. Umana. obtained u/s of the right upper extremity which demonstrated fluid collection surrounding the HeRO graft which was heterogenous in nature. added single dose of Amikacin to vanc/zosyn regimen to cover ESBL organisms. patient remains in shock. per verbal report from OSH, blood cultures growing MRSA. taken to OR urgently and large amount of purulent drainage debrided from around catheter. HeRO catheter removed. returns from OR persistently unstable. acidosis worsening. bicarb given. discussed with nephrology and will need CRRT. 05/29: s/p emergent debridement and removal of HeRO graft. today vasopressor doses are somewhat lower, although remains on levo,vaso,epi. lactate cleared. s/ p IHD today with 3L removal. blood growing MRSA. sputum growing e.coli, providencia, MRSA. wbc remains elevated. 05/30: off vasopressors. getting IHD again today. hgb 7 and receiving 1 unit prbc during dialysis. encephalopathy persists, not following commands. 05/31: clinically continues to improve. not following commands, very slow to arouse. bradycardic this AM, but tolerating hemodynamically. HD yesterday with volume removal. 06/01: Clinically improved off all pressors. Sedated with propofol and fentanyl , opens eyes moves extremities not following commands. Plan for hemodialysis today. Initiate CPAP trial after hemodialysis. Persistently bacteremic with MRSA, repeat cultures in 24 hours 06/02: Remains in septic shock, though pressor requirement has improved. Hypotensive bradycardic while getting HD yesterday, started on Dopamine, now at 3 mcg/kg/min. Pus being expressed from upper part of right upper chest [id number] (HeRO AVG removal site). Hypothermic. Some pus around the suprapubic catheter 06/03: Patient had been weaned off all pressors now. Not requiring dopamine for the last 18 hours. However WBC count 13 K today. Persistent bacteremia with MRSA. Source could be right upper extremity graft remnant versus infected invasive catheters. After hemodialysis removal HD catheter, also remove left IJ central line. Repeat blood cultures in 24 hours. Antibiotics broadened by ID yesterday 06/04: Showing some clinical signs of improvement. Not requiring pressors hypothermia has resolved. CBC still pending patient is more awake following commands tolerating CPAP now. Left IJ central line and right femoral Vas-Cath was removed yesterday. Plan for next dialysis is tomorrow will place new Vas- Cath tomorrow a.m. to give 'line holiday'. 06/05: Back on norepinephrine at 10 mics per minute. Blood blood pressure variable, intermittently hypotensive. New Vas-Cath placed in groin functional. Most recent cultures continued to grow gram-positive cocci. Alert when propofol is lightened 06/06: Afebrile. Remains on norepinephrine drip at 7 mcg/min. Arousable on the ventilator on sedation vacation. Commands. -3 L with hemodialysis yesterday. Repeat blood cultures done the same. Right upper extremity ultrasound pending.. 06/07: remains on vasopressors. cxr today with new left pleural effusion which is quite large: confirmed on bedside lung ultrasound. pigtail chest tube placed with > 1L old hemothorax. hgb slightly lower, but hemodynamically stable. discussed with nephrology and vascular surgery and most ideal plan would be to transfuse prbc tomorrow with HD. 06/08: Remains intubated sedated with propofol. Currently on 8 mcg/min of Levophed but map is above 75. Getting 2 units of PRBC with dialysis for hemoglobin of 6.9. Left pigtail chest tube drained almost 2 L old blood appearing. I will request fluid studies from any residual drainage. CT of the chest to evaluate for any residual fluid. 06/09: Intubated sedated, wakes up and follows commands. On Levophed at 1 mcg/ min. CT of the chest shows small left pleural effusion bibasilar consolidation , multiple bilateral pulmonary nodules some cavitation indicating septic emboli most likely from staff. Blood cultures from 06/05/18 and 06/06/18 negative to date 06/10: Remains intubated slightly sedated follows commands. Levophed requirement has slightly increased overnight currently on 5 mcg/min. We will recheck blood cultures. Getting hemodialysis today. Chest x-ray shows severe left-sided airspace disease. Check ultrasound of the chest post dialysis. Left pigtail chest tube output 60 ml in last 24 hours 06/11 Patient is sedated with Diprivan and Fentanyl infusion, on Levophed 11 mics. Afebrile. Left pigtail catheter had 50 ml output and a second large bore CT was placed yesterday had approx 100ml overnight. 06/12 Patient remains intubated tolerated CPAP for several hrs yesterday remains on Levophed 10 mics and Vasopressin 0.04. Afebrile. Left pigtail catheter was dislodged yesterday, 28Fr CT had 50ml output overnight. Tolerating tube feeds. 06/13: Remains critical Levophed requirement has decreased to 5 mcg/min same dose of vasopressin 0.04. However hemoglobin has dropped to 6.7, 2 units of PRBC ordered stat. Chest tube output approximately 200 mL serosanguineous. I do not believe this is the source of his anemia. Previous history of GI bleed will consult GI. Remains encephalopathic and lethargic I do not think he can be successfully be weaned off the ventilator without a tracheostomy. General surgery consulted per Dr. Umana's request for OR tracheostomy Subjective 06/14: Remains on ventilator no acute distress. Currently on vasopressin 0.04. Norepinephrine has been held. Remains hyponatremic and hyperphosphatemia. 06/15: Remains intubated sedated remains on vasopressin. Hyponatremia worsening most likely volume related. Discussed with nephrology plan for HD with fluid removal today. Check TSH, monitor CMP 06/16: Intubated off sedation weakly follows some commands. Chest tube output has significantly diminished. After discussion with Dr. Umana has agreed on tracheostomy, planned for . Remains on Vasopressin 06/17: Remains off sedation now following commands intermittently on upper extremities. Tolerating CPAP with high pressure support. Remains on vasopressin and now on Levophed at 2 mcg/min but systolic blood pressure above 160, I have instructed RN to wean Levophed 06/18: Remains intubated and lightly sedated with low-dose propofol and fentanyl. Tolerate CPAP at high settings unable to reduce pressure support. Will proceed with tracheostomy today with Dr. Acosta. PEG tube per GI. Objective Vital Signs / I&O: Vital Signs 06/17/18 10:30 06/17/18 10:46 06/17/18 10:48 Temperature Pulse Rate 90 103 H Respiratory Rate 19 21 24 Blood Pressure 141/70 H 159/85 H Pulse Oximetry 94 L 96 97 06/17/18 10:57 06/17/18 11:00 06/17/18 11:15 Temperature Pulse Rate 97 H 98 H 97 H Respiratory Rate 23 18 23 Blood Pressure 136/65 147/65 H 139/77 Pulse Oximetry 96 94 L 95 06/17/18 11:30 06/17/18 11:45 06/17/18 12:00 Temperature 99.9 F H Pulse Rate 106 H 106 H 108 H Respiratory Rate 22 30 H 21 Blood Pressure 137/72 144/74 H Pulse Oximetry 93 L 94 L 96 06/17/18 12:15 06/17/18 12:45 06/17/18 13:00 Temperature Pulse Rate 110 H 109 H 109 H Respiratory Rate 24 24 20 Blood Pressure 136/62 106/56 L 87/50 L Pulse Oximetry 96 96 96 06/17/18 13:08 06/17/18 13:15 06/17/18 13:29 Temperature 98.3 F Pulse Rate 111 H 112 H Respiratory Rate 29 H 22 17 Blood Pressure 138/61 116/58 L Pulse Oximetry 95 96 97 06/17/18 13:30 06/17/18 13:38 06/17/18 13:45 Temperature Pulse Rate 111 H 107 H 111 H Respiratory Rate 22 17 24 Blood Pressure 97/56 L 95/59 L Pulse Oximetry 97 96 06/17/18 14:00 06/17/18 14:01 06/17/18 14:02 Temperature Pulse Rate 111 H 110 H 111 H Respiratory Rate 21 22 20 Blood Pressure 90/52 L 90/53 L 80/49 L Pulse Oximetry 94 L 95 95 06/17/18 14:04 06/17/18 14:05 06/17/18 14:06 Temperature Pulse Rate 110 H 108 H 110 H Respiratory Rate 15 15 18 Blood Pressure 78/57 L 79/53 L 93/53 L Pulse Oximetry 95 95 96 06/17/18 14:15 06/17/18 14:30 06/17/18 14:42 Temperature Pulse Rate 109 H 106 H 101 H Respiratory Rate 16 33 H 17 Blood Pressure 92/55 L 94/51 L 98/55 L Pulse Oximetry 95 95 97 06/17/18 14:45 06/17/18 15:01 06/17/18 15:15 Temperature Pulse Rate 104 H 107 H 105 H Respiratory Rate 17 31 H 28 H Blood Pressure 87/56 L 109/65 111/64 Pulse Oximetry 97 97 95 06/17/18 15:30 06/17/18 15:45 06/17/18 16:00 Temperature 98.7 F Pulse Rate 105 H 109 H 107 H Respiratory Rate 32 H 32 H 29 H Blood Pressure 119/60 112/60 128/69 Pulse Oximetry 97 98 97 06/17/18 16:15 06/17/18 16:30 06/17/18 16:45 Temperature Pulse Rate 109 H 107 H 97 H Respiratory Rate 26 H 32 H 22 Blood Pressure 128/63 116/59 L 106/59 L Pulse Oximetry 99 98 92 L 06/17/18 17:00 06/17/18 17:01 06/17/18 17:16 Temperature Pulse Rate 107 H 108 H 107 H Respiratory Rate 25 H 24 25 H Blood Pressure 134/74 141/78 H 107/60 Pulse Oximetry 95 99 98 06/17/18 17:46 06/17/18 18:00 06/17/18 18:16 Temperature Pulse Rate 110 H 103 H 108 H Respiratory Rate 36 H 24 21 Blood Pressure 154/76 H 125/61 113/57 L Pulse Oximetry 95 96 99 06/17/18 18:30 06/17/18 18:46 06/17/18 19:00 Temperature Pulse Rate 110 H 106 H 109 H Respiratory Rate 23 20 20 Blood Pressure 126/71 114/58 L 108/54 L Pulse Oximetry 97 98 98 06/17/18 19:15 06/17/18 19:30 06/17/18 19:45 Temperature Pulse Rate 107 H 107 H 109 H Respiratory Rate 20 19 19 Blood Pressure 97/54 L 91/54 L 104/57 L Pulse Oximetry 100 99 99 06/17/18 20:00 06/17/18 20:13 06/17/18 20:14 Temperature 99.6 F Pulse Rate 106 H 105 H Respiratory Rate 18 20 20 Blood Pressure 111/52 L Pulse Oximetry 100 100 06/17/18 20:16 06/17/18 20:30 06/17/18 20:45 Temperature Pulse Rate 108 H 107 H 107 H Respiratory Rate 17 20 13 Blood Pressure 118/53 L 104/54 L 99/58 L Pulse Oximetry 99 99 99 06/17/18 21:00 06/17/18 21:01 06/17/18 21:16 Temperature Pulse Rate 107 H 108 H 102 H Respiratory Rate 25 H 19 21 Blood Pressure 132/57 L 114/57 L Pulse Oximetry 98 99 98 06/17/18 21:30 06/17/18 21:45 06/17/18 22:00 Temperature Pulse Rate 109 H 101 H 107 H Respiratory Rate 22 19 23 Blood Pressure 108/58 L 118/71 Pulse Oximetry 97 98 99 06/17/18 22:01 06/17/18 22:16 06/17/18 22:31 Temperature Pulse Rate 107 H 103 H 106 H Respiratory Rate 24 22 31 H Blood Pressure 120/71 121/90 115/57 L Pulse Oximetry 100 96 98 06/17/18 22:45 06/17/18 23:00 06/17/18 23:15 Temperature Pulse Rate 106 H 106 H 103 H Respiratory Rate 26 H 26 H 30 H Blood Pressure 115/63 110/56 L 116/55 L Pulse Oximetry 97 97 97 06/17/18 23:30 06/17/18 23:45 06/18/18 00:00 Temperature Pulse Rate 107 H 106 H 106 H Respiratory Rate 32 H 29 H 25 H Blood Pressure 112/55 L 108/61 83/52 L Pulse Oximetry 97 95 94 L 06/18/18 00:01 06/18/18 00:02 06/18/18 00:16 Temperature Pulse Rate 105 H 106 H Respiratory Rate 25 H 17 23 Blood Pressure 83/52 L 115/65 Pulse Oximetry 94 L 96 99 06/18/18 00:31 06/18/18 00:46 06/18/18 01:00 Temperature Pulse Rate 104 H 108 H 109 H Respiratory Rate 26 H 22 29 H Blood Pressure 145/74 H 98/54 L 113/57 L Pulse Oximetry 97 99 98 06/18/18 01:16 06/18/18 01:31 06/18/18 01:46 Temperature Pulse Rate 108 H 106 H 106 H Respiratory Rate 17 33 H 22 Blood Pressure 104/53 L 133/62 126/53 L Pulse Oximetry 98 97 99 06/18/18 02:00 06/18/18 02:01 06/18/18 02:15 Temperature Pulse Rate 106 H 106 H 104 H Respiratory Rate 24 29 H 22 Blood Pressure 106/55 L 97/53 L Pulse Oximetry 97 98 98 06/18/18 02:30 06/18/18 02:46 06/18/18 03:00 Temperature Pulse Rate 104 H 105 H 103 H Respiratory Rate 25 H 28 H 27 H Blood Pressure 107/58 L 125/83 Pulse Oximetry 98 95 97 06/18/18 03:01 06/18/18 03:16 06/18/18 03:31 Temperature Pulse Rate 105 H 104 H 104 H Respiratory Rate 21 25 H 26 H Blood Pressure 123/57 L 115/59 L 101/60 Pulse Oximetry 99 99 100 06/18/18 03:45 06/18/18 04:00 06/18/18 04:01 Temperature Pulse Rate 102 H 104 H 102 H Respiratory Rate 25 H 24 33 H Blood Pressure 133/59 L 111/74 Pulse Oximetry 100 99 93 L 06/18/18 04:03 06/18/18 04:04 06/18/18 04:16 Temperature Pulse Rate 102 H 102 H Respiratory Rate 18 18 31 H Blood Pressure 134/62 Pulse Oximetry 98 95 06/18/18 04:31 06/18/18 04:45 06/18/18 05:00 Temperature Pulse Rate 101 H 104 H 107 H Respiratory Rate 25 H 23 23 Blood Pressure 130/64 101/57 L Pulse Oximetry 98 93 L 97 06/18/18 05:01 06/18/18 05:15 06/18/18 05:30 Temperature Pulse Rate 106 H 107 H 107 H Respiratory Rate 22 18 19 Blood Pressure 88/61 L 87/53 L 92/59 L Pulse Oximetry 98 97 98 06/18/18 05:45 06/18/18 06:00 06/18/18 06:15 Temperature Pulse Rate 108 H 109 H 108 H Respiratory Rate 16 16 18 Blood Pressure 91/57 L 89/54 L 88/54 L Pulse Oximetry 99 99 99 06/18/18 08:30 06/18/18 08:54 Temperature Pulse Rate 105 H Respiratory Rate 15 15 Blood Pressure Pulse Oximetry 100 Intake & Output 06/17/18 06/18/18 06/18/18 18:59 06:59 18:59 Intake Total 842 / 842 Output Total 3650 / 3650 Balance -3650 / -3650 842 / 842 Weight 134.6 kg Intake: IV 350 / 350 Diflucan 200 mg Premix Bag 200 100 / 100 MG In Bag/Syringe 1 EACH @ 100 mls/hr IV.SIG Q24H TRACIE Rx#: [id number] Vancomycin Inj 1,000 MG In NS 250 / 250 Inj 250 ML @ 250 mls/hr IV.SIG WITH DIALYSIS TRACIE Rx#:[id number] Tube Feeding 292 / 292 Water Bolus Amount 200 / 200 Output: Stool 150 / 150 Hemodialysis Amount 3500 / 3500 Other: Date of Last Bowel Movement 06/17/18 06/18/18 # Incontinent Bowel Movements 1 Result Diagrams: 06/18/18 04:05 06/18/18 04:05 Objective Remarks: GENERAL: 73-year-old -Vincentian male, lying in bed, intubated, off sedation HEENT: Normocephalic. Atraumatic. Pupils equal, round, reactive. NECK: Trachea is midline. Orotracheally intubated. Left IJ CVL is clean dry and intact. CHEST: PRVC, now on CPAP. equal chest rise. Air entry decreased predominantly in the left lung newman with few coarse rhonchi bilaterally. Left chest tube with no significant output (Remove after OR trach) CARDIOVASCULAR: Atrial fibrillation rate controlled. No murmurs. No JVD. Off pressors ABDOMEN: Soft, nontender, nondistended. No guarding. Left femoral dialysis catheter site clean dry and intact MUSCULOSKELETAL: Right upper extremity s/p debridement upper incision W/D dressing. Pulses 2+. No peripheral edema. NEUROLOGICAL: Intubated sedated. Follows commands weakly on upper extremities. No focal deficits Assessment and Plan - Assessment and Plan Plan: NEURO/PSYCH: Toxic metabolic encephalopathy -Continue on propofol and fentanyl drip due to patient biting on the tube, asynchronous with the vent -Daily sedation medication -As needed hydromorphone 0.5 mg IV every 2 hours as needed added 06/11 -Acetaminophen 650 mg by tube every 6 hours as needed fever -Altered mentation secondary to toxic metabolic encephalopathy from sepsis and hypercapnia -PT/OT for passive range of motion RESP: Acute hypoxemic and hypercarbic respiratory failure Multiple pulmonary nodules/septic emboli Pulmonary edema Left Hemothorax MRSA pneumonia -General surgery consulted for tracheostomy-Dr. Umana requests OR trach, plan for today 06/18[facility] [facility]- present on [facility] -Continue abx. daily SBT as narciso. Ventilator bundle. Albuterol/ipratropium aerosols every 6 hours scheduled and albuterol aerosols every 2 hours as needed s/p 10 Fr pigtail chest tube, left, with >1L old dark blood. 06/07. Dislodged 06/11. Fluid studies consistent with hemothorax s/p 28Fr CT placement 06/10 with 400ml removed on insertion, had minimal output last 24 hours. Remove chest tube after OR trach CXR : Improved left lung airspace consolidation. There is residual bilateral airspace consolidation, left greater than right. CT of the chest shows multiple pulmonary nodules with some cavitation indicating septic emboli CV: Septic shock-resolving Pulmonary edema-resolving Atrial fibrillation with RVR-currently rate controlled Acute severe anion gap Metabolic acidosis- resolved Off vasopressin for 24 hours A. fib rate is controlled and currently normal sinus rhythm, cannot anticoagulate due to history of recent GI bleed, and blood loss anemia Echo 06/12/2018 shows mild concentric left ventricular hypertrophy. The left ventricular systolic function is normal with an estimated ejection fraction in the range of 55-60%. There is trace tricuspid valve regurgitation. There is a small pericardial effusion present. GI/HEME/FEN: Recent GI bleed Acute normocytic anemia requiring transfusion Hyperphosphatemia Hyponatremia hypoalbuminemia -s/p Transfusion of 2U PRBC with HD 06/10, additional 2 units given 06/13/18 -GI consulted. Nepro tube feeds at 45 cc an hour per nutrition recommendations with Beneprotein 1 packet 3 times daily-Hold for trach and PEG -IV pantoprazole 40 mg IV q12 -Docusate sodium/senna 1 tablet twice daily for bowel regimen -Calcium acetate 667 mg 3 times daily for elevated phosphorus. /renal: End-stage renal disease on hemodialysis HeRO graft placed 09/2017, now removed due to graft infection -Nephrology: Dr. Davidson following -Continue HD per nephrology, Getting HD today -Monitor renal function, I/O's, avoid nephrotoxins ID: Septic shock HeRO graft infection s/p removal HCAP pneumonia- present on admission MRSA septic emboli to lung Persistent MRSA bacteremia -MRSA bacteremia could be secondary to infected remnant of the AV graft, versus secondary seeding of the catheters Recent blood cultures since 06/05/2018 had been negative -Removed Vas-Cath, and left IJ central line 06/03/18 - 05/27, 05/28, 05/30, 06/01 and 06/04 blood cultures MRSA - 05/27 sputum cultures: Providencia, MRSA, e.coli - 06/02 wound with Arlet albicans - ID Dr. Morgan, abx management per ID - cont vancomycin: keep trough 15-20 cont rifampin - Continue fluconazole - Will need minimum 6 weeks coverage for MRSA graft infection - Dr. Umana following ENDO: Type 2 diabetes Presumed Adrenal insufficiency -Sliding scale insulin with aspart insulin every 4 hours -Status post stress steroids PROPH: -Bilateral lower extremity SCDs. IV Protonix 40 mg every 12. Chemical prophylaxis contraindicated due to anemia requiring transfusion LINES: -Removed OSH left IJ central line and OSH right femoral Vas-Cath on 06/03/2018 -New left femoral Vas-Cath placement 06/04/18 -left radial arterial line 05/27-removed 06/13/18 -New LIJ central line 06/08/18 due to ongoing pressor requirement Level 2 follow-up Encephalopathy persist continues to fail CPAP trial. Tracheostomy planned for as well as PEG tube
[2018-06-18] MEDS ORDERED: Phenylephrine/NS 1000 MCG/10ML Syringe IV.PUSH ONE (11:00)
--- NOTE | 2018-06-18 11:17 | P.PNNP ---
Subjective Interval history: Patient to have tracheostomy and PEG tube placement Physical Exam Vital signs: Vital Signs 06/17/18 11:30 06/17/18 11:45 06/17/18 12:00 Temperature 99.9 F H Pulse Rate 106 H 106 H 108 H Respiratory Rate 22 30 H 21 Blood Pressure 137/72 144/74 H Pulse Oximetry 93 L 94 L 96 06/17/18 12:15 06/17/18 12:45 06/17/18 13:00 Temperature Pulse Rate 110 H 109 H 109 H Respiratory Rate 24 24 20 Blood Pressure 136/62 106/56 L 87/50 L Pulse Oximetry 96 96 96 06/17/18 13:08 06/17/18 13:15 06/17/18 13:29 Temperature 98.3 F Pulse Rate 111 H 112 H Respiratory Rate 29 H 22 17 Blood Pressure 138/61 116/58 L Pulse Oximetry 95 96 97 06/17/18 13:30 06/17/18 13:38 06/17/18 13:45 Temperature Pulse Rate 111 H 107 H 111 H Respiratory Rate 22 17 24 Blood Pressure 97/56 L 95/59 L Pulse Oximetry 97 96 06/17/18 14:00 06/17/18 14:01 06/17/18 14:02 Temperature Pulse Rate 111 H 110 H 111 H Respiratory Rate 21 22 20 Blood Pressure 90/52 L 90/53 L 80/49 L Pulse Oximetry 94 L 95 95 06/17/18 14:04 06/17/18 14:05 06/17/18 14:06 Temperature Pulse Rate 110 H 108 H 110 H Respiratory Rate 15 15 18 Blood Pressure 78/57 L 79/53 L 93/53 L Pulse Oximetry 95 95 96 06/17/18 14:15 06/17/18 14:30 06/17/18 14:42 Temperature Pulse Rate 109 H 106 H 101 H Respiratory Rate 16 33 H 17 Blood Pressure 92/55 L 94/51 L 98/55 L Pulse Oximetry 95 95 97 06/17/18 14:45 06/17/18 15:01 06/17/18 15:15 Temperature Pulse Rate 104 H 107 H 105 H Respiratory Rate 17 31 H 28 H Blood Pressure 87/56 L 109/65 111/64 Pulse Oximetry 97 97 95 06/17/18 15:30 06/17/18 15:45 06/17/18 16:00 Temperature 98.7 F Pulse Rate 105 H 109 H 107 H Respiratory Rate 32 H 32 H 29 H Blood Pressure 119/60 112/60 128/69 Pulse Oximetry 97 98 97 06/17/18 16:15 06/17/18 16:30 06/17/18 16:45 Temperature Pulse Rate 109 H 107 H 97 H Respiratory Rate 26 H 32 H 22 Blood Pressure 128/63 116/59 L 106/59 L Pulse Oximetry 99 98 92 L 06/17/18 17:00 06/17/18 17:01 06/17/18 17:16 Temperature Pulse Rate 107 H 108 H 107 H Respiratory Rate 25 H 24 25 H Blood Pressure 134/74 141/78 H 107/60 Pulse Oximetry 95 99 98 06/17/18 17:46 06/17/18 18:00 06/17/18 18:16 Temperature Pulse Rate 110 H 103 H 108 H Respiratory Rate 36 H 24 21 Blood Pressure 154/76 H 125/61 113/57 L Pulse Oximetry 95 96 99 06/17/18 18:30 06/17/18 18:46 06/17/18 19:00 Temperature Pulse Rate 110 H 106 H 109 H Respiratory Rate 23 20 20 Blood Pressure 126/71 114/58 L 108/54 L Pulse Oximetry 97 98 98 06/17/18 19:15 06/17/18 19:30 06/17/18 19:45 Temperature Pulse Rate 107 H 107 H 109 H Respiratory Rate 20 19 19 Blood Pressure 97/54 L 91/54 L 104/57 L Pulse Oximetry 100 99 99 06/17/18 20:00 06/17/18 20:13 06/17/18 20:14 Temperature 99.6 F Pulse Rate 106 H 105 H Respiratory Rate 18 20 20 Blood Pressure 111/52 L Pulse Oximetry 100 100 06/17/18 20:16 06/17/18 20:30 06/17/18 20:45 Temperature Pulse Rate 108 H 107 H 107 H Respiratory Rate 17 20 13 Blood Pressure 118/53 L 104/54 L 99/58 L Pulse Oximetry 99 99 99 06/17/18 21:00 06/17/18 21:01 06/17/18 21:16 Temperature Pulse Rate 107 H 108 H 102 H Respiratory Rate 25 H 19 21 Blood Pressure 132/57 L 114/57 L Pulse Oximetry 98 99 98 06/17/18 21:30 06/17/18 21:45 06/17/18 22:00 Temperature Pulse Rate 109 H 101 H 107 H Respiratory Rate 22 19 23 Blood Pressure 108/58 L 118/71 Pulse Oximetry 97 98 99 06/17/18 22:01 06/17/18 22:16 06/17/18 22:31 Temperature Pulse Rate 107 H 103 H 106 H Respiratory Rate 24 22 31 H Blood Pressure 120/71 121/90 115/57 L Pulse Oximetry 100 96 98 06/17/18 22:45 06/17/18 23:00 06/17/18 23:15 Temperature Pulse Rate 106 H 106 H 103 H Respiratory Rate 26 H 26 H 30 H Blood Pressure 115/63 110/56 L 116/55 L Pulse Oximetry 97 97 97 06/17/18 23:30 06/17/18 23:45 06/18/18 00:00 Temperature Pulse Rate 107 H 106 H 106 H Respiratory Rate 32 H 29 H 25 H Blood Pressure 112/55 L 108/61 83/52 L Pulse Oximetry 97 95 94 L 06/18/18 00:01 06/18/18 00:02 06/18/18 00:16 Temperature Pulse Rate 105 H 106 H Respiratory Rate 25 H 17 23 Blood Pressure 83/52 L 115/65 Pulse Oximetry 94 L 96 99 06/18/18 00:31 06/18/18 00:46 06/18/18 01:00 Temperature Pulse Rate 104 H 108 H 109 H Respiratory Rate 26 H 22 29 H Blood Pressure 145/74 H 98/54 L 113/57 L Pulse Oximetry 97 99 98 06/18/18 01:16 06/18/18 01:31 06/18/18 01:46 Temperature Pulse Rate 108 H 106 H 106 H Respiratory Rate 17 33 H 22 Blood Pressure 104/53 L 133/62 126/53 L Pulse Oximetry 98 97 99 06/18/18 02:00 06/18/18 02:01 06/18/18 02:15 Temperature Pulse Rate 106 H 106 H 104 H Respiratory Rate 24 29 H 22 Blood Pressure 106/55 L 97/53 L Pulse Oximetry 97 98 98 06/18/18 02:30 06/18/18 02:46 06/18/18 03:00 Temperature Pulse Rate 104 H 105 H 103 H Respiratory Rate 25 H 28 H 27 H Blood Pressure 107/58 L 125/83 Pulse Oximetry 98 95 97 06/18/18 03:01 06/18/18 03:16 06/18/18 03:31 Temperature Pulse Rate 105 H 104 H 104 H Respiratory Rate 21 25 H 26 H Blood Pressure 123/57 L 115/59 L 101/60 Pulse Oximetry 99 99 100 06/18/18 03:45 06/18/18 04:00 06/18/18 04:01 Temperature Pulse Rate 102 H 104 H 102 H Respiratory Rate 25 H 24 33 H Blood Pressure 133/59 L 111/74 Pulse Oximetry 100 99 93 L 06/18/18 04:03 06/18/18 04:04 06/18/18 04:16 Temperature Pulse Rate 102 H 102 H Respiratory Rate 18 18 31 H Blood Pressure 134/62 Pulse Oximetry 98 95 06/18/18 04:31 06/18/18 04:45 06/18/18 05:00 Temperature Pulse Rate 101 H 104 H 107 H Respiratory Rate 25 H 23 23 Blood Pressure 130/64 101/57 L Pulse Oximetry 98 93 L 97 06/18/18 05:01 06/18/18 05:15 06/18/18 05:30 Temperature Pulse Rate 106 H 107 H 107 H Respiratory Rate 22 18 19 Blood Pressure 88/61 L 87/53 L 92/59 L Pulse Oximetry 98 97 98 06/18/18 05:45 06/18/18 06:00 06/18/18 06:15 Temperature Pulse Rate 108 H 109 H 108 H Respiratory Rate 16 16 18 Blood Pressure 91/57 L 89/54 L 88/54 L Pulse Oximetry 99 99 99 06/18/18 08:30 06/18/18 08:54 Temperature Pulse Rate 105 H Respiratory Rate 15 15 Blood Pressure Pulse Oximetry 100 Intake & Output 06/17/18 06/18/18 06/18/18 18:59 06:59 18:59 Intake Total 842 / 842 Output Total 3650 / 3650 Balance -3650 / -3650 842 / 842 Weight 134.6 kg Intake: IV 350 / 350 Diflucan 200 mg Premix Bag 200 100 / 100 MG In Bag/Syringe 1 EACH @ 100 mls/hr IV.SIG Q24H TRACIE Rx#: [id number] Vancomycin Inj 1,000 MG In NS 250 / 250 Inj 250 ML @ 250 mls/hr IV.SIG WITH DIALYSIS TRACIE Rx#:[id number] Tube Feeding 292 / 292 Water Bolus Amount 200 / 200 Output: Stool 150 / 150 Hemodialysis Amount 3500 / 3500 Other: Date of Last Bowel Movement 06/17/18 06/18/18 # Incontinent Bowel Movements 1 Narrative: Intubated/Sedated Resp: CTAB on minimal vent settings Cardio: RRR Abd: soft non tender Large dressing on RIGHT side of neck LEFT sided chest tube in place - Urinary Catheter Management Suprapubic Cath placed during this visit: no Assessment and Plan - Assessment (1) End stage renal disease on dialysis Code(s): N18.6 - End stage renal disease; Z99.2 - Dependence on renal dialysis Status: Acute (2) Hemodialysis access, AV graft Code(s): Z99.2 - Dependence on renal dialysis Status: Acute - Plan Patient has sepsis and undergoing treatment with IV vancomycin Patient low blood pressure on vasopressors Patient last ultrafiltration 3.5 L was removed he is scheduled for tracheostomy and PEG tube placement Apparent HeRO infection and MRSA: Removal of previous left IJ port, s/p partial removal for right arm graft and HeRO outflow component. Ongoing hypotension - follow with ID and Vascular --
[2018-06-18] MEDS ORDERED: Lidocaine 1%/Epinephrine 1:100,000 Inj 50 ML Vial ONE (11:19)
[2018-06-18] MEDS ORDERED: ceFAZolin 2 GM Premix Inj 2 GM/50 ML PIGGYBACK IV.SIG SCH (11:31)
[2018-06-18] MEDS: Propofol 1000 mg/100 ml Inj 1,000 MG/100 ML BOTTLE IV.CONT PRN (11:36)
--- NOTE | 2018-06-18 13:48 | GIPROC ---
[facility] [address] [facility] [address]. [facility], [id number] EGD with PEG Tube Insertion. PROCEDURE REPORT EXAM DATE: 06/18/2018 PATIENT NAME: Bonifacio Laguerre MR #: [id number] BIRTHDATE: 1945 ATTENDING: Justin Meier MD ORDER #: [id number] [employer]: Kyra Ya STATUS: inpatient INDICATIONS: The patient is a 73 yr old male here for an EGD due to PEG Replacement PROCEDURE PERFORMED: EGD w/ percutaneous gastrostomy tube placement MEDICATIONS: None and Per Anesthesia. TOPICAL ANESTHETIC: none CONSENT: The patient understands the risks and benefits of the procedure and understands that these risks include, but are not limited to: sedation, allergic reaction, infection, perforation and/or bleeding. Alternative means of evaluation and treatment include, among others: physical exam, x-rays, and/or surgical intervention. The patient elects to proceed with this endoscopic procedure. medical equipment was checked for proper function. Hand hygiene and appropriate measures for infection prevention was taken. After the risks, benefits and alternatives of the procedure were thoroughly explained, Informed consent was verified, confirmed and timeout was successfully executed by the treatment team. The patient was anesthetized with topical anesthesia and the Pentax EG-[id number] endoscope was introduced through the mouth and advanced to the second portion of the duodenum. Retroflexion was performed and was normal The gastroscope was then slowly withdrawn and removed. The endoscopy was otherwise normal. ADVERSE EVENTS: There were no complications. IMPRESSIONS: 1. Normal endoscopy otherwise 2. 22 F PEG tube placed successfully RECOMMENDATIONS: PEG recomendations: 1- NPO for 6 hours except for meds 2- Flush PEG tube every 6 hours with water and after each PEG feeding 3- May resume regular diet in the morning 4- May use Ensure or Boost etc. for PEG tube feeding PATIENT CONDITION: stable DISPOSITION: Observation REPEAT EXAM: NONE Justin Meier MD eSigned: Justin Meier MD 06/18/2018 1:48 PM cc:
--- NOTE | 2018-06-18 14:51 | XR ---
EXAM DATE: 06/18/2018 2:45 PM EDT AGE/SEX: 73 years / Male INDICATIONS: Tracheostomy placement. CLINICAL DATA: This is the patient's subsequent encounter. Patient reports that signs and symptoms h ave been present for 1 month and indicates a pain score of Nonresponsive. MEDICAL/SURGICAL HISTORY: . Cardiovascular disease. Hypertension. Renal disease, end stage. N one. COMPARISON: [facility] [place], CHEST 1V SINGLE AP, 06/18/2018. . FINDINGS: Tracheostomy is present in good position. Left neck central line is stable. There has been removal of a nasogastric tube. Patchy bilateral infiltrates persist unchanged. Cardiac contours are grossly unc hanged. Right subclavian stent is again noted. CONCLUSION: Satisfactory tracheostomy. No complication Electronically signed by: Jordan Fernandez MD 06/18/2018 2:50 PM EDT
[2018-06-18] MEDS: Senna/Docusate Sodium 8.6/50 MG Tablet PO SCH ×2 (16:26→21:31)
--- NOTE | 2018-06-18 20:23 | P.PNID ---
Subjective Remarks: low grade fever Off pressors sp trach today + diarrhea, c.diff neg 2/2 cont to have diarrhea Antibiotics: vanco rifampin Allergies/Adverse Reactions: Allergies No Known Allergies Allergy (Unknown, Uncoded 12/24/17 14:57) Objective Vital Signs 06/17/18 20:30 06/17/18 20:45 06/17/18 21:00 Temperature Pulse Rate 107 H 107 H 107 H Respiratory Rate 20 13 25 H Blood Pressure 104/54 L 99/58 L Pulse Oximetry 99 99 98 06/17/18 21:01 06/17/18 21:16 06/17/18 21:30 Temperature Pulse Rate 108 H 102 H 109 H Respiratory Rate 19 21 22 Blood Pressure 132/57 L 114/57 L 108/58 L Pulse Oximetry 99 98 97 06/17/18 21:45 06/17/18 22:00 06/17/18 22:01 Temperature Pulse Rate 101 H 107 H 107 H Respiratory Rate 19 23 24 Blood Pressure 118/71 120/71 Pulse Oximetry 98 99 100 06/17/18 22:16 06/17/18 22:31 06/17/18 22:45 Temperature Pulse Rate 103 H 106 H 106 H Respiratory Rate 22 31 H 26 H Blood Pressure 121/90 115/57 L 115/63 Pulse Oximetry 96 98 97 06/17/18 23:00 06/17/18 23:15 06/17/18 23:30 Temperature Pulse Rate 106 H 103 H 107 H Respiratory Rate 26 H 30 H 32 H Blood Pressure 110/56 L 116/55 L 112/55 L Pulse Oximetry 97 97 97 06/17/18 23:45 06/18/18 00:00 06/18/18 00:01 Temperature Pulse Rate 106 H 106 H 105 H Respiratory Rate 29 H 25 H 25 H Blood Pressure 108/61 83/52 L 83/52 L Pulse Oximetry 95 94 L 94 L 06/18/18 00:02 06/18/18 00:16 06/18/18 00:31 Temperature Pulse Rate 106 H 104 H Respiratory Rate 17 23 26 H Blood Pressure 115/65 145/74 H Pulse Oximetry 96 99 97 06/18/18 00:46 06/18/18 01:00 06/18/18 01:16 Temperature Pulse Rate 108 H 109 H 108 H Respiratory Rate 22 29 H 17 Blood Pressure 98/54 L 113/57 L 104/53 L Pulse Oximetry 99 98 98 06/18/18 01:31 06/18/18 01:46 06/18/18 02:00 Temperature Pulse Rate 106 H 106 H 106 H Respiratory Rate 33 H 22 24 Blood Pressure 133/62 126/53 L Pulse Oximetry 97 99 97 06/18/18 02:01 06/18/18 02:15 06/18/18 02:30 Temperature Pulse Rate 106 H 104 H 104 H Respiratory Rate 29 H 22 25 H Blood Pressure 106/55 L 97/53 L 107/58 L Pulse Oximetry 98 98 98 06/18/18 02:46 06/18/18 03:00 06/18/18 03:01 Temperature Pulse Rate 105 H 103 H 105 H Respiratory Rate 28 H 27 H 21 Blood Pressure 125/83 123/57 L Pulse Oximetry 95 97 99 06/18/18 03:16 06/18/18 03:31 06/18/18 03:45 Temperature Pulse Rate 104 H 104 H 102 H Respiratory Rate 25 H 26 H 25 H Blood Pressure 115/59 L 101/60 133/59 L Pulse Oximetry 99 100 100 06/18/18 04:00 06/18/18 04:01 06/18/18 04:03 Temperature Pulse Rate 104 H 102 H Respiratory Rate 24 33 H 18 Blood Pressure 111/74 Pulse Oximetry 99 93 L 98 06/18/18 04:04 06/18/18 04:16 06/18/18 04:31 Temperature Pulse Rate 102 H 102 H 101 H Respiratory Rate 18 31 H 25 H Blood Pressure 134/62 130/64 Pulse Oximetry 95 98 06/18/18 04:45 06/18/18 05:00 06/18/18 05:01 Temperature Pulse Rate 104 H 107 H 106 H Respiratory Rate 23 23 22 Blood Pressure 101/57 L 88/61 L Pulse Oximetry 93 L 97 98 06/18/18 05:15 06/18/18 05:30 06/18/18 05:45 Temperature Pulse Rate 107 H 107 H 108 H Respiratory Rate 18 19 16 Blood Pressure 87/53 L 92/59 L 91/57 L Pulse Oximetry 97 98 99 06/18/18 06:00 06/18/18 06:15 06/18/18 08:00 Temperature 99.2 F Pulse Rate 109 H 108 H 105 H Respiratory Rate 16 18 18 Blood Pressure 89/54 L 88/54 L 108/66 Pulse Oximetry 99 99 93 L 06/18/18 08:30 06/18/18 08:54 06/18/18 10:00 Temperature 98.9 F Pulse Rate 105 H 95 H Respiratory Rate 15 15 19 Blood Pressure 113/57 L Pulse Oximetry 100 98 06/18/18 12:00 06/18/18 12:13 06/18/18 14:00 Temperature 98.8 F Pulse Rate 92 H 109 H Respiratory Rate 11 L Blood Pressure 149/96 H Pulse Oximetry 100 100 06/18/18 14:15 06/18/18 14:23 06/18/18 14:30 Temperature Pulse Rate 110 H 100 H Respiratory Rate 14 23 25 H Blood Pressure 113/68 107/60 Pulse Oximetry 100 94 L 96 06/18/18 14:45 06/18/18 16:00 06/18/18 17:30 Temperature 98.9 F Pulse Rate 114 H 111 H Respiratory Rate 25 H 18 20 Blood Pressure 104/62 96/67 L Pulse Oximetry 96 99 100 06/18/18 18:00 Temperature Pulse Rate 114 H Respiratory Rate 21 Blood Pressure 116/65 Pulse Oximetry Intake & Output 06/18/18 06/18/18 06/19/18 06:59 18:59 06:59 Intake Total 842 / 842 300 / 300 Output Total 80 / 80 Balance 842 / 842 220 / 220 Weight 134.6 kg Intake: IV 350 / 350 Diflucan 200 mg Premix Bag 200 100 / 100 MG In Bag/Syringe 1 EACH @ 100 mls/hr IV.SIG Q24H TRACIE Rx#: [id number] Vancomycin Inj 1,000 MG In NS 250 / 250 Inj 250 ML @ 250 mls/hr IV.SIG WITH DIALYSIS TRACIE Rx#:[id number] Tube Feeding 292 / 292 0 / 0 Water Bolus Amount 200 / 200 Anesthesia Amount 300 / 300 Output: Urine 0 / 0 Stool 50 / 50 Estimated Blood Loss 30 / 30 Other: Date of Last Bowel Movement 06/18/18 06/18/18 # Incontinent Bowel Movements 1 05/28/18 14:40 Wound - Arm Fungal Smear - Final No fungal elements seen 05/28/18 14:40 Wound - Arm Fungal Culture - Preliminary No growth in 3 weeks 05/28/18 14:40 Wound - Arm Acid Fast Bacilli Smear - Final No acid fast bacilli seen 05/28/18 14:40 Wound - Arm Mycobacterial Culture - Preliminary No growth in 3 weeks 05/28/18 14:40 Other Fungal Smear - Final No fungal elements seen 05/28/18 14:40 Other Fungal Culture - Preliminary No growth in 3 weeks 05/28/18 14:40 Other Acid Fast Bacilli Smear - Final No acid fast bacilli seen 05/28/18 14:40 Other Mycobacterial Culture - Preliminary No growth in 3 weeks Lab - Hematology Results 06/18/18 04:05 WBC 5.6 RBC 3.06 L Hgb 9.2 L Hct 27.1 L MCV 88.4 MCH 30.1 MCHC 34.1 RDW 15.5 Plt Count 288 D MPV 7.6 Lab - Chemistry Results 06/16/18 06/17/18 06/17/18 23:54 05:00 07:46 Sodium Potassium Chloride Carbon Dioxide Anion Gap BUN Creatinine Estimated GFR POC Glucose 188 H 110 174 H Random Glucose Calcium Total Bilirubin AST ALT Alkaline Phosphatase Total Protein Albumin 06/17/18 06/17/18 06/17/18 12:12 17:33 20:27 Sodium Potassium Chloride Carbon Dioxide Anion Gap BUN Creatinine Estimated GFR POC Glucose 192 H 169 H 170 H Random Glucose Calcium Total Bilirubin AST ALT Alkaline Phosphatase Total Protein Albumin 06/18/18 06/18/18 06/18/18 00:28 04:02 04:05 Sodium 133 L Potassium 3.6 Chloride 95 L Carbon Dioxide 25.9 Anion Gap 12 BUN 44 H Creatinine 6.23 H Estimated GFR 11 L POC Glucose 218 H 180 H Random Glucose 174 H Calcium 10.3 H Total Bilirubin 0.4 AST 16 ALT 12 Alkaline Phosphatase 130 H Total Protein 9.8 H Albumin 3.4 06/18/18 06/18/18 06/18/18 09:01 11:25 17:50 Sodium Potassium Chloride Carbon Dioxide Anion Gap BUN Creatinine Estimated GFR POC Glucose 189 H 194 H 227 H Random Glucose Calcium Total Bilirubin AST ALT Alkaline Phosphatase Total Protein Albumin 06/18/18 19:49 Sodium Potassium Chloride Carbon Dioxide Anion Gap BUN Creatinine Estimated GFR POC Glucose 211 H Random Glucose Calcium Total Bilirubin AST ALT Alkaline Phosphatase Total Protein Albumin Imaging: ITS Impressions Chest CT 06/10/18 12:01 CONCLUSION: 1. Bilateral parenchymal infiltrates are seen as well as bilateral moderate effusions left greater than right. 2. Pulmonary nodules are identified including cavitary lesions. Upper Extremity Ultrasound 06/14/18 00:00 CONCLUSION: 1. Very impressive subcutaneous edema. No drainable fluid collection or abscess Abdomen X-Ray 06/17/18 00:00 CONCLUSION: NG tube as above. Chest X-Ray 06/18/18 14:07 CONCLUSION: Satisfactory tracheostomy. No complication Physical Exam: GENERAL: NAD sedated. intubated on vent SKIN: Warm and dry. No rash HEAD: Atraumatic. Normocephalic. EYES: Pupils equal and round. No scleral icterus. No injection or drainage. ENT: No nasal bleeding or discharge. Mucous membranes pink and moist. NECK: trach in place CARDIOVASCULAR: Regular rate and rhythm. Chest incision is open and packed, minim,al serosang drainage on the packing RESPIRATORY: No accessory muscle use. Crackes to auscultation. Breath sounds equal bilaterally. CT [facility] very cloudy sedrosangious d/c GASTROINTESTINAL: Abdomen soft, non-tender, nondistended. Hepatic and splenic margins not palpable. MUSCULOSKELETAL: Extremities without clubbing, cyanosis, +edema. RUE edema improved, fine wrinkling in noted no erythema NEUROLOGICAL: somnolent PSYCHIATRIC: unable to assess Assessment and Plan - Plan MRSA sepsis - sustained bacteremia: 2 cultures by 6 days Indwelling prosthetic vascular device (complex AV graft extending to R atrium ) Liekly infected HD vascular synthetic graft: abscess vs infected hematome Sepsis, septic shock ESRD, on HD Acute VDRF Hypotension, requiring pressors: resolved cont vancomycin: keep trough 15-20 cont rifampin consider removal of remanning part of the graft anais WINTERS
--- NOTE | 2018-06-18 20:30 | MP ---
cc: Josafat Acosta MD DATE OF OPERATION: 06/18/2018 PROCEDURE: Tracheostomy. PREOPERATIVE DIAGNOSIS: Ventilator dependence secondary to respiratory failure. POSTOPERATIVE DIAGNOSIS: Ventilator dependence secondary to respiratory failure. ANESTHESIA: General endotracheal SURGEON: Josafat Acosta MD ESTIMATED BLOOD LOSS: 20 mL. FLUIDS: 50 mL crystalloid. COMPLICATIONS: None. DRAINS: None. SPECIMENS: None. PROCEDURE IN DETAIL: The patient was taken to the operating room directly from intensive medical care and placed on the operating table in the supine position with the neck in a slightly extended position. The neck was shaved, prepped and draped. Timeout was taken, confirming the correct patient, site, and procedure to be performed. Skin and subcutaneous tissue was infiltrated with local anesthetic and an incision made in the neck 2 fingerbreadths above the sternal notch. Dissection was carried down through the subcutaneous tissues and precervical veins were identified, dissected free with a small right angle, and ligated with silk suture. The veins were doubly ligated distally and singly ligated proximally to minimize the risk of postoperative bleeding. When this was accomplished, the strap muscles were easily in the midline. The thyroid was then divided along the isthmus with the electrocautery. The thyroid gland was then retracted laterally on both sides. Two 2-0 Prolene sutures were placed through the second tracheal ring to provide countertraction. These were used to elevate the trachea upwards. A right angle hook was then used to retract the trachea up further. An inverted trap door incision was made between the second and third tracheal rings. The endotracheal tube was withdrawn to a level above the tracheotomy site and an XLT tracheostomy tube with an extended depth was inserted into the trachea. The balloon was inflated, the obturator was placed and the circuit switched over. Good end tidal CO2 was noted and good end tidal volumes were delivered. Good saturations were maintained throughout. The tracheostomy tube was secured with 4-0 silk sutures. The 2-0 Prolene sutures were taped to the anterior chest wall. A trach dressing was placed under the tracheostomy tube. The undersigned then scrubbed out. The patient had a PEG tube placed in the operating room simultaneously. Stat chest x-ray was obtained, which demonstrated no evidence of pneumothorax. The patient tolerated the procedure well. MD Gregory Marin , 07:28 PM , 07:36 PM
[2018-06-18] MEDS: FLUCONAZOLE IV.SIG SCH (21:31)
[2018-06-19] MEDS: Insulin NovoLOG Aspart Correctional Sugar Inj SQ SCH ×6 (00:34→21:13)
[2018-06-19] MEDS: Senna/Docusate Sodium 8.6/50 MG Tablet PO SCH ×2 (08:15→21:14)
[2018-06-19] MEDS: Albumin Human 25% Inj 100 ML IV.SIG PRN ×2 (08:24→09:05)
[2018-06-19] MEDS: Heparin 10,000 UNITS/10 ML Vial (for IV use) OTHER PRN (08:25)
[2018-06-19] MEDS: Vancomycin Inj 1,000 MG in Sodium Chlor 0.9% Inj 250 ML IV.SIG SCH (08:26)
--- NOTE | 2018-06-19 09:28 | P.PNGS ---
Subjective Interval history: Eyes open; responsive On CPAP trial RT at bedside--- no issues overnight Patient going to have HD today Physical Exam Vital signs: Vital Signs 06/18/18 10:00 06/18/18 12:00 06/18/18 12:13 Temperature 98.9 F Pulse Rate 95 H 92 H Respiratory Rate 19 Blood Pressure 113/57 L Pulse Oximetry 98 100 06/18/18 14:00 06/18/18 14:15 06/18/18 14:23 Temperature 98.8 F Pulse Rate 109 H 110 H Respiratory Rate 11 L 14 23 Blood Pressure 149/96 H 113/68 Pulse Oximetry 100 100 94 L 06/18/18 14:30 06/18/18 14:45 06/18/18 16:00 Temperature 98.9 F Pulse Rate 100 H 114 H 111 H Respiratory Rate 25 H 25 H 18 Blood Pressure 107/60 104/62 96/67 L Pulse Oximetry 96 96 99 06/18/18 17:30 06/18/18 18:00 06/18/18 19:45 Temperature Pulse Rate 114 H Respiratory Rate 20 21 18 Blood Pressure 116/65 Pulse Oximetry 100 100 06/18/18 20:00 06/18/18 22:00 06/18/18 22:20 Temperature 98.5 F Pulse Rate 113 H 100 H Respiratory Rate 18 24 18 Blood Pressure 107/64 111/58 L Pulse Oximetry 100 99 100 06/19/18 00:00 06/19/18 01:26 06/19/18 02:00 Temperature 98.9 F Pulse Rate 96 H 109 H Respiratory Rate 22 18 20 Blood Pressure 117/68 119/74 Pulse Oximetry 100 100 99 06/19/18 04:00 06/19/18 04:02 06/19/18 06:00 Temperature 99.2 F Pulse Rate 99 H 108 H Respiratory Rate 17 17 25 H Blood Pressure 130/60 117/58 L Pulse Oximetry 100 100 96 06/19/18 07:32 06/19/18 08:00 Temperature 99.1 F Pulse Rate 111 H 101 H Respiratory Rate 21 14 Blood Pressure 112/58 L Pulse Oximetry 100 95 Intake & Output 06/18/18 06/19/18 06/19/18 18:59 06:59 18:59 Intake Total 300 / 300 532 / 532 200 / 200 Output Total 80 / 80 475 / 475 Balance 220 / 220 57 / 57 200 / 200 Weight 126.4 kg Intake: IV 350 / 350 200 / 200 Flexbumin 25% Inj 100 ML @ 60 200 / 200 mls/hr IV.SIG WITH DIALYSIS PRN Rx#:[id number] Diflucan 200 mg Premix Bag 200 100 / 100 MG In Bag/Syringe 1 EACH @ 100 mls/hr IV.SIG Q24H TRACIE Rx#: [id number] Levophed-Dextrose 4 mg/250 ml 250 / 250 Drip 4 mg In 250 ml @ 2 MCG/MIN 7.5 mls/hr IV.SIG TITRATE PRN Rx#:[id number] Tube Feeding 0 / 0 82 / 82 Water Bolus Amount 100 / 100 Anesthesia Amount 300 / 300 Output: Urine 0 / 0 0 / 0 Stool 50 / 50 400 / 400 Estimated Blood Loss 30 / 30 Chest Tube Drainage 75 / 75 #2 Left Lower Mid-Axillary 75 / 75 Chest Other: Date of Last Bowel Movement 06/18/18 06/19/18 06/19/18 Narrative: Eyes open; non verbal Trach in place without any complications - Urinary Catheter Management Suprapubic Cath placed during this visit: no Results - Labs 06/23/18 05:44 06/23/18 05:44 Assessment and Plan - Assessment (1) Ventilator dependence Code(s): Z99.11 - Dependence on respirator [ventilator] status Status: Acute Plan: 73 year old male with sepsis from infected graft; VDRF in need of tracheostomy -POD1 trach -Continue routine trach care -Currently on CPAP trial -GS will sign off; Please call with any questions No new drainage on dressing; discussed with patient's at bedside. Will see as needed. The exam, history, and the medical decision-making described in the above note were completed with the assistance of the mid-level provider. I reviewed and agree with the findings presented. I attest that I had a [id number] encounter with the patient on the same day, and personally performed and documented my assessment and findings in the medical record.
[2018-06-19] MEDS: Mupirocin 2% Nasal Oint Topical Syringe EACH NARE SCH ×2 (09:33→21:14)
[2018-06-19] MEDS: Calcium Acetate 667 MG Capsule PO SCH ×3 (09:34→17:54)
[2018-06-19] MEDS: Hypromellose 0.3% Opth Gel 10 GM Bottle EACH EYE SCH ×2 (09:34→21:14)
[2018-06-19] MEDS: Beneprotein Powder Packet G-TUBE SCH ×3 (09:34→17:55)
[2018-06-19] MEDS: Pantoprazole Inj 40 MG Vial IV.PUSH SCH ×2 (10:04→22:16)
--- NOTE | 2018-06-19 12:15 | P.PNGI ---
Subjective Interval history: Patient is status post PEG tube placement on 06/18/2018 Jevity at 10 cc an hour. Currently receiving CPAP trials and recent trach performed No obvious nausea or vomiting. Will need nutritional consult for goal rate. <Karen Lee - Last Filed: 06/19/18 12:20> Physical Exam Vital signs: Vital Signs 06/18/18 12:13 06/18/18 14:00 06/18/18 14:15 Temperature 98.8 F Pulse Rate 109 H 110 H Respiratory Rate 11 L 14 Blood Pressure 149/96 H 113/68 Pulse Oximetry 100 100 100 06/18/18 14:23 06/18/18 14:30 06/18/18 14:45 Temperature Pulse Rate 100 H 114 H Respiratory Rate 23 25 H 25 H Blood Pressure 107/60 104/62 Pulse Oximetry 94 L 96 96 06/18/18 16:00 06/18/18 17:30 06/18/18 18:00 Temperature 98.9 F Pulse Rate 111 H 114 H Respiratory Rate 18 20 21 Blood Pressure 96/67 L 116/65 Pulse Oximetry 99 100 06/18/18 19:45 06/18/18 20:00 06/18/18 22:00 Temperature 98.5 F Pulse Rate 113 H 100 H Respiratory Rate 18 18 24 Blood Pressure 107/64 111/58 L Pulse Oximetry 100 100 99 06/18/18 22:20 06/19/18 00:00 06/19/18 01:26 Temperature 98.9 F Pulse Rate 96 H Respiratory Rate 18 22 18 Blood Pressure 117/68 Pulse Oximetry 100 100 100 06/19/18 02:00 06/19/18 04:00 06/19/18 04:02 Temperature 99.2 F Pulse Rate 109 H 99 H Respiratory Rate 20 17 17 Blood Pressure 119/74 130/60 Pulse Oximetry 99 100 100 06/19/18 06:00 06/19/18 07:32 06/19/18 08:00 Temperature 99.1 F Pulse Rate 108 H 111 H 101 H Respiratory Rate 25 H 21 14 Blood Pressure 117/58 L 112/58 L Pulse Oximetry 96 100 95 06/19/18 10:00 06/19/18 11:14 Temperature Pulse Rate 115 H Respiratory Rate 20 Blood Pressure Pulse Oximetry 100 Intake & Output 06/18/18 06/19/18 06/19/18 18:59 06:59 18:59 Intake Total 300 / 300 532 / 532 200 / 200 Output Total 80 / 80 475 / 475 3000 / 3000 Balance 220 / 220 57 / 57 -2800 / -2800 Weight 126.4 kg Intake: IV 350 / 350 200 / 200 Flexbumin 25% Inj 100 ML @ 60 200 / 200 mls/hr IV.SIG WITH DIALYSIS PRN Rx#:[id number] Diflucan 200 mg Premix Bag 200 100 / 100 MG In Bag/Syringe 1 EACH @ 100 mls/hr IV.SIG Q24H TRACIE Rx#: [id number] Levophed-Dextrose 4 mg/250 ml 250 / 250 Drip 4 mg In 250 ml @ 2 MCG/MIN 7.5 mls/hr IV.SIG TITRATE PRN Rx#:[id number] Tube Feeding 0 / 0 82 / 82 Water Bolus Amount 100 / 100 Anesthesia Amount 300 / 300 Output: Urine 0 / 0 0 / 0 Stool 50 / 50 400 / 400 Hemodialysis Amount 3000 / 3000 Estimated Blood Loss 30 / 30 Chest Tube Drainage 75 / 75 #2 Left Lower Mid-Axillary 75 / 75 Chest Other: Date of Last Bowel Movement 06/18/18 06/19/18 06/19/18 - Constitutional no acute distress - Urinary Catheter Management Suprapubic Cath placed during this visit: no <Karen Lee - Last Filed: 06/19/18 12:20> Vital signs: Vital Signs 06/18/18 14:00 06/18/18 14:15 06/18/18 14:23 Temperature 98.8 F Pulse Rate 109 H 110 H Respiratory Rate 11 L 14 23 Blood Pressure 149/96 H 113/68 Pulse Oximetry 100 100 94 L 06/18/18 14:30 06/18/18 14:45 06/18/18 16:00 Temperature 98.9 F Pulse Rate 100 H 114 H 111 H Respiratory Rate 25 H 25 H 18 Blood Pressure 107/60 104/62 96/67 L Pulse Oximetry 96 96 99 06/18/18 17:30 06/18/18 18:00 06/18/18 19:45 Temperature Pulse Rate 114 H Respiratory Rate 20 21 18 Blood Pressure 116/65 Pulse Oximetry 100 100 06/18/18 20:00 06/18/18 22:00 06/18/18 22:20 Temperature 98.5 F Pulse Rate 113 H 100 H Respiratory Rate 18 24 18 Blood Pressure 107/64 111/58 L Pulse Oximetry 100 99 100 06/19/18 00:00 06/19/18 01:26 06/19/18 02:00 Temperature 98.9 F Pulse Rate 96 H 109 H Respiratory Rate 22 18 20 Blood Pressure 117/68 119/74 Pulse Oximetry 100 100 99 06/19/18 04:00 06/19/18 04:02 06/19/18 06:00 Temperature 99.2 F Pulse Rate 99 H 108 H Respiratory Rate 17 17 25 H Blood Pressure 130/60 117/58 L Pulse Oximetry 100 100 96 06/19/18 07:32 06/19/18 08:00 06/19/18 10:00 Temperature 99.1 F Pulse Rate 111 H 101 H 115 H Respiratory Rate 21 14 Blood Pressure 112/58 L Pulse Oximetry 100 95 06/19/18 11:14 06/19/18 12:00 Temperature 99.9 F H Pulse Rate 113 H Respiratory Rate 20 19 Blood Pressure 91/68 L Pulse Oximetry 100 100 Intake & Output 06/18/18 06/19/18 06/19/18 18:59 06:59 18:59 Intake Total 300 / 300 532 / 532 200 / 200 Output Total 80 / 80 475 / 475 3000 / 3000 Balance 220 / 220 57 / 57 -2800 / -2800 Weight 126.4 kg Intake: IV 350 / 350 200 / 200 Flexbumin 25% Inj 100 ML @ 60 200 / 200 mls/hr IV.SIG WITH DIALYSIS PRN Rx#:[id number] Diflucan 200 mg Premix Bag 200 100 / 100 MG In Bag/Syringe 1 EACH @ 100 mls/hr IV.SIG Q24H TRACIE Rx#: [id number] Levophed-Dextrose 4 mg/250 ml 250 / 250 Drip 4 mg In 250 ml @ 2 MCG/MIN 7.5 mls/hr IV.SIG TITRATE PRN Rx#:[id number] Tube Feeding 0 / 0 82 / 82 Water Bolus Amount 100 / 100 Anesthesia Amount 300 / 300 Output: Urine 0 / 0 0 / 0 Stool 50 / 50 400 / 400 Hemodialysis Amount 3000 / 3000 Estimated Blood Loss 30 / 30 Chest Tube Drainage 75 / 75 #2 Left Lower Mid-Axillary 75 / 75 Chest Other: Date of Last Bowel Movement 06/18/18 06/19/18 06/19/18 - Urinary Catheter Management Suprapubic Cath placed during this visit: no <Justin Meier - Last Filed: 06/19/18 13:40> Results - Labs CBC & Chem 7: 06/18/18 04:05 06/18/18 04:05 Laboratory Results - last 24 hr 06/18/18 06/18/18 06/18/18 17:50 19:49 23:58 POC Glucose 227 H 211 H 175 H 06/19/18 06/19/18 06/19/18 03:44 07:55 11:52 POC Glucose 113 H 194 H 144 H Microbiology 05/28/18 14:40 Wound - Arm Fungal Smear - Final No fungal elements seen 05/28/18 14:40 Wound - Arm Fungal Culture - Preliminary No growth in 3 weeks 05/28/18 14:40 Wound - Arm Acid Fast Bacilli Smear - Final No acid fast bacilli seen 05/28/18 14:40 Wound - Arm Mycobacterial Culture - Preliminary No growth in 3 weeks 05/28/18 14:40 Other Fungal Smear - Final No fungal elements seen 05/28/18 14:40 Other Fungal Culture - Preliminary No growth in 3 weeks 05/28/18 14:40 Other Acid Fast Bacilli Smear - Final No acid fast bacilli seen 05/28/18 14:40 Other Mycobacterial Culture - Preliminary No growth in 3 weeks - Imaging Impressions Chest X-Ray 06/18/18 14:07 CONCLUSION: Satisfactory tracheostomy. No complication <Karen Lee - Last Filed: 06/19/18 12:20> - Labs CBC & Chem 7: 06/18/18 04:05 06/18/18 04:05 Laboratory Results - last 24 hr 06/18/18 06/18/18 06/18/18 17:50 19:49 23:58 POC Glucose 227 H 211 H 175 H 06/19/18 06/19/18 06/19/18 03:44 07:55 11:52 POC Glucose 113 H 194 H 144 H Microbiology 05/28/18 14:40 Wound - Arm Fungal Smear - Final No fungal elements seen 05/28/18 14:40 Wound - Arm Fungal Culture - Preliminary No growth in 3 weeks 05/28/18 14:40 Wound - Arm Acid Fast Bacilli Smear - Final No acid fast bacilli seen 05/28/18 14:40 Wound - Arm Mycobacterial Culture - Preliminary No growth in 3 weeks 05/28/18 14:40 Other Fungal Smear - Final No fungal elements seen 05/28/18 14:40 Other Fungal Culture - Preliminary No growth in 3 weeks 05/28/18 14:40 Other Acid Fast Bacilli Smear - Final No acid fast bacilli seen 05/28/18 14:40 Other Mycobacterial Culture - Preliminary No growth in 3 weeks - Imaging Impressions Chest X-Ray 06/18/18 14:07 CONCLUSION: Satisfactory tracheostomy. No complication <Justin Meier - Last Filed: 06/19/18 13:40> Assessment and Plan (1) Nutritional anemia Status: Acute Code(s): D53.9 - Nutritional anemia, unspecified - Plan Assessment: - Anemia with recent GIB EGD (05/25) --> Normal esophagus. Entire examined stomach was normal. One non- obstructing cratered duodenal ulcer with spurting hemorrhage was found in the duodenal bulb. Lesion was 10 mm in largest dimension. No evidence of perforation. Hemostatic clips and epi applied with successful hemostasis. H/H was 7.0/19.3 on day of discharge (05/27) Pt with no obvious GIB at this time. Likely anemia is multifactorial given ESRD on HD, receives Epogen. Has received 8 U PRBCs since admission - PEG tube consult- Pt encephalopathic and has repeatedly failed CPAP trial- plan for tracheostomy and PEG tomorrow. currently receiving Nepro at 45 mL/hr through NG 06/19/2018 patient is status post PEG tube placement without any complications on 06/18/2014 currently has Jevity at trickle feeds 10 cc an hour. Will have nutritional consult to assist with goal rate and long-term needs patient is status post tracheostomy and currently on CPAP trials. Patient appears to be stable from a GI perspective and will just need long-term goals for his tube feeds. GI will sign off please call if anything is needed. Continue PPI, monitor bowel regimen, flush PEG tube and monitor high residuals, monitor labs with special attention to hemoglobin which is 9.2 and stable. Patient was seen per myself and Dr. Meier, note was written on his behalf <Karen Lee - Last Filed: 06/19/18 12:20> (1) Nutritional anemia Status: Acute Code(s): D53.9 - Nutritional anemia, unspecified - Attending Attestation Plan as above. Please notify us if needed again. <Justin Meier - Last Filed: 06/19/18 13:40>
--- NOTE | 2018-06-19 13:17 | P.DIET ---
Nutritional Evaluation Type of nutrition evaluation: follow-up Nutrition consult regarding: Tube Feeding [place] [facility] [place] Objective - Diagnosis Sepsis, Graft Infection - Objective % IBW: 156 (IBW = 178#) Body Weight Used for Calculations: IBW (80.9 kg) Energy Needs - Lower Range (kCal/kg): 24 Energy Needs - Upper Range (kCal/kg): 28 Lower Limit kCal/kg (kCals): 1,944 Upper Limit kCal/kg (kCals): 2,268 Lower Limit Protein Factor (Grams per Kg): 1.2 Upper Limit Protein Factor (Grams per Kg): 1.5 Lower Protein Needs (Protein): 97 Upper Protein Needs (Protein): 122 Dietitian Reviewed in Medical Record: Curent medications, Intake & Output, Labs , Medical history, Tube feeding Diet Order: TF only Wound Care Note: 06/14: R+L Buttock pressure injury (ongoing) Objective Comments: PMH: ESRD on HD, HTN, DM, DVT, Obesity Assessment Assessment: Pt at nutritional risk r/t need for a TF for nutrition support. PEG plcaed yesterday (06/18) TF Jevity 1.5 currently running at 10 ml/hr. To meet pt's nutritional needs, reocmmend Nepro goal rate of 45 ml/hr is necessary and Beneprotein 1 pkt TID is needed to meet pt's protein needs. The above will provide 2019kcals, 106gms protein and 785mls free water. Recommendations: TF Nepro with goal rate 45 ml/hr Beneprotein 1 pkt TID Dietitian to Monitor: Lab values, Intake & Output, Tube feeding tolerance, Weight change, Wound/skin status, Medical course
--- NOTE | 2018-06-19 15:37 | P.PNNP ---
Subjective Interval history: Patient has tracheostomy FiO2 35% Physical Exam Vital signs: Vital Signs 06/18/18 16:00 06/18/18 17:30 06/18/18 18:00 Temperature 98.9 F Pulse Rate 111 H 114 H Respiratory Rate 18 20 21 Blood Pressure 96/67 L 116/65 Pulse Oximetry 99 100 06/18/18 19:45 06/18/18 20:00 06/18/18 22:00 Temperature 98.5 F Pulse Rate 113 H 100 H Respiratory Rate 18 18 24 Blood Pressure 107/64 111/58 L Pulse Oximetry 100 100 99 06/18/18 22:20 06/19/18 00:00 06/19/18 01:26 Temperature 98.9 F Pulse Rate 96 H Respiratory Rate 18 22 18 Blood Pressure 117/68 Pulse Oximetry 100 100 100 06/19/18 02:00 06/19/18 04:00 06/19/18 04:02 Temperature 99.2 F Pulse Rate 109 H 99 H Respiratory Rate 20 17 17 Blood Pressure 119/74 130/60 Pulse Oximetry 99 100 100 06/19/18 06:00 06/19/18 07:32 06/19/18 08:00 Temperature 99.1 F Pulse Rate 108 H 111 H 101 H Respiratory Rate 25 H 21 14 Blood Pressure 117/58 L 112/58 L Pulse Oximetry 96 100 95 06/19/18 10:00 06/19/18 11:14 06/19/18 12:00 Temperature 99.9 F H Pulse Rate 115 H 113 H Respiratory Rate 20 19 Blood Pressure 91/68 L Pulse Oximetry 100 100 06/19/18 14:00 Temperature Pulse Rate 106 H Respiratory Rate Blood Pressure Pulse Oximetry Intake & Output 06/18/18 06/19/18 06/19/18 18:59 06:59 18:59 Intake Total 300 / 300 532 / 532 200 / 200 Output Total 80 / 80 475 / 475 3000 / 3000 Balance 220 / 220 57 / 57 -2800 / -2800 Weight 126.4 kg Intake: IV 350 / 350 200 / 200 Flexbumin 25% Inj 100 ML @ 60 200 / 200 mls/hr IV.SIG WITH DIALYSIS PRN Rx#:[id number] Diflucan 200 mg Premix Bag 200 100 / 100 MG In Bag/Syringe 1 EACH @ 100 mls/hr IV.SIG Q24H TRACIE Rx#: [id number] Levophed-Dextrose 4 mg/250 ml 250 / 250 Drip 4 mg In 250 ml @ 2 MCG/MIN 7.5 mls/hr IV.SIG TITRATE PRN Rx#:[id number] Tube Feeding 0 / 0 82 / 82 Water Bolus Amount 100 / 100 Anesthesia Amount 300 / 300 Output: Urine 0 / 0 0 / 0 Stool 50 / 50 400 / 400 Hemodialysis Amount 3000 / 3000 Estimated Blood Loss 30 / 30 Chest Tube Drainage 75 / 75 #2 Left Lower Mid-Axillary 75 / 75 Chest Other: Date of Last Bowel Movement 06/18/18 06/19/18 06/19/18 - Constitutional no acute distress - Routine HEENT Exam Head: Present: normocephalic - Routine Neck Exam Present: supple - Routine Respiratory Exam Present: patient mechanically ventilated - Routine Cardiovascular Exam Present: irregular rhythm - Routine Abdominal Exam Present: soft, normoactive bowel sounds - Routine Extremities Exam Present: edema - Urinary Catheter Management Suprapubic Cath placed during this visit: no Assessment and Plan - Assessment (1) End stage renal disease on dialysis Code(s): N18.6 - End stage renal disease; Z99.2 - Dependence on renal dialysis Status: Acute (2) Hemodialysis access, AV graft Code(s): Z99.2 - Dependence on renal dialysis Status: Acute - Plan Patient has sepsis and undergoing treatment with IV vancomycin Patient low blood pressure on vasopressors Patient last ultrafiltration 3 L was removed he is scheduled Status post tracheostomy going to have permacath Need long-term placement Apparent HeRO infection and MRSA: Removal of previous left IJ port, s/p partial removal for right arm graft and HeRO outflow component. Ongoing hypotension - follow with ID and Vascular --
[2018-06-19 15:56] LABS: Baso # (Auto) 0.1 th/mm3 (0.0-0.2); Baso % (Auto) 1.3 % (0.0-2.0); Eos # (Auto) 0.3 th/mm3 (0.0-0.4); Eos % (Auto) 5.2 % (0.0-4.0); Hematocrit 25.7 % (39.0-51.0); Hemoglobin 8.6 gm/dL (13.0-17.0); Lymph # (Auto) 1.1 th/mm3 (1.0-4.8); Lymph % (Auto) 18.9 % (9.0-44.0); Mean Corpuscular HGB Conc 33.3 % (32.0-36.0); Mean Corpuscular Hemoglobin 29.6 pg (27.0-34.0); Mean Corpuscular Volume 88.9 fL (80.0-100.0); Mean Platelet Volume 7.1 fL (7.0-11.0); Mono # (Auto) 0.8 th/mm3 (0.0-0.9); Mono % (Auto) 12.9 % (0.0-8.0); Neut # (Auto) 3.7 th/mm3 (1.8-7.7); Neut % (Auto) 61.7 % (16.0-70.0); Platelet Count 322 th/mm3 (150-450); Red Blood Count 2.89 mil/mm3 (4.50-5.90); Red Cell Distribution Width 15.6 % (11.6-17.2)
[2018-06-19 16:21] LABS: Calcium 9.9 mg/dL (8.5-10.1); Carbon Dioxide 27.5 meq/L (21.0-32.0); Magnesium 2.2 mg/dL (1.5-2.5); Potassium 3.8 meq/L (3.5-5.1)
[2018-06-19] MEDS ORDERED: Lidocaine 1%/Epinephrine 1:100,000 Inj 20 ML Vial ONE (16:39)
[2018-06-19] MEDS ORDERED: *Heparin 10,000 UNITS/10 ML Vial Periprocedural ONLY ONE (16:39)
[2018-06-19] MEDS ORDERED: Heparin Central Flush 100 UNIT/ML 5 ML Vial IV.FLUSH PRN (17:16)
--- NOTE | 2018-06-19 17:29 | P.PNCC ---
Subjective Subjective Remarks/Hospital Course: Mr. Laguerre is a 73-year-old -[place] male with past medical history significant for end-stage renal disease on hemodialysis, hypertension, complicated vascular access, HeRO graft placement by Dr. Umana on 09/23/2017, revision and PTFE replacement 12/25/17. who presented to the [facility] with probable sepsis and shock. Dr. Umana was contacted and patient was accepted for transfer to CVICU in [facility]. I immediately evaluated the patient on arrival to CVICU. Patient is currently on BiPAP (transported on BiPAP) severely encephalopathic hardly wakes up to sternal rub, with a rapid shallow breathing. BiPAP settings 18/8, 60% FiO2. He is literally unresponsive and not protecting airway. Currently he is on Levophed at 20 mcg/min with a map 65-70. He is also on amiodarone for atrial fibrillation with RVR. Because of lack of airway protection, severe encephalopathy, septic shock and hypoxia I proceeded with endotracheal intubation. His glottic opening was completely occluded with thick secretions, several minutes of suctioning needed to clear the secretions prior to intubation. Postintubation Levophed had to be increased to 30 mcg/min, I also placed an arterial line. All cultures, routine labs and lactic acid pending at this time. I have started him on vancomycin and Zosyn. Discussed case with Dr. Umana extensively Patient was unable to provide any history, according to the RN who got report patient apparently had GI bleed, underwent EGD with cauterization of duodenal ulcer few days ago. Will avoid heparin for DVT prophylaxis. His postintubation ABG showed severe hypoxia with significant AA gradient, metabolic acidosis, and a hemoglobin of 7.6. Currently Levophed is increased to 30 mcg/min, I will transfuse 1 unit PRBC. Chest x-ray shows pulmonary edema will arrange for hemodialysis once his shock is improves. At this time he will not be able to tolerate either hemodialysis or even CVVH 05/28: initially evaluated around 6:30am. patient in refractory septic shock. added epinephrine to levophed and vasopressin. discussed with Dr. Umana. obtained u/s of the right upper extremity which demonstrated fluid collection surrounding the HeRO graft which was heterogenous in nature. added single dose of Amikacin to vanc/zosyn regimen to cover ESBL organisms. patient remains in shock. per verbal report from OSH, blood cultures growing MRSA. taken to OR urgently and large amount of purulent drainage debrided from around catheter. HeRO catheter removed. returns from OR persistently unstable. acidosis worsening. bicarb given. discussed with nephrology and will need CRRT. 05/29: s/p emergent debridement and removal of HeRO graft. today vasopressor doses are somewhat lower, although remains on levo,vaso,epi. lactate cleared. s/ p IHD today with 3L removal. blood growing MRSA. sputum growing e.coli, providencia, MRSA. wbc remains elevated. 05/30: off vasopressors. getting IHD again today. hgb 7 and receiving 1 unit prbc during dialysis. encephalopathy persists, not following commands. 05/31: clinically continues to improve. not following commands, very slow to arouse. bradycardic this AM, but tolerating hemodynamically. HD yesterday with volume removal. 06/01: Clinically improved off all pressors. Sedated with propofol and fentanyl , opens eyes moves extremities not following commands. Plan for hemodialysis today. Initiate CPAP trial after hemodialysis. Persistently bacteremic with MRSA, repeat cultures in 24 hours 06/02: Remains in septic shock, though pressor requirement has improved. Hypotensive bradycardic while getting HD yesterday, started on Dopamine, now at 3 mcg/kg/min. Pus being expressed from upper part of right upper chest [id number] (HeRO AVG removal site). Hypothermic. Some pus around the suprapubic catheter 06/03: Patient had been weaned off all pressors now. Not requiring dopamine for the last 18 hours. However WBC count 13 K today. Persistent bacteremia with MRSA. Source could be right upper extremity graft remnant versus infected invasive catheters. After hemodialysis removal HD catheter, also remove left IJ central line. Repeat blood cultures in 24 hours. Antibiotics broadened by ID yesterday 06/04: Showing some clinical signs of improvement. Not requiring pressors hypothermia has resolved. CBC still pending patient is more awake following commands tolerating CPAP now. Left IJ central line and right femoral Vas-Cath was removed yesterday. Plan for next dialysis is tomorrow will place new Vas- Cath tomorrow a.m. to give 'line holiday'. 06/05: Back on norepinephrine at 10 mics per minute. Blood blood pressure variable, intermittently hypotensive. New Vas-Cath placed in groin functional. Most recent cultures continued to grow gram-positive cocci. Alert when propofol is lightened 06/06: Afebrile. Remains on norepinephrine drip at 7 mcg/min. Arousable on the ventilator on sedation vacation. Commands. -3 L with hemodialysis yesterday. Repeat blood cultures done the same. Right upper extremity ultrasound pending.. 06/07: remains on vasopressors. cxr today with new left pleural effusion which is quite large: confirmed on bedside lung ultrasound. pigtail chest tube placed with > 1L old hemothorax. hgb slightly lower, but hemodynamically stable. discussed with nephrology and vascular surgery and most ideal plan would be to transfuse prbc tomorrow with HD. 06/08: Remains intubated sedated with propofol. Currently on 8 mcg/min of Levophed but map is above 75. Getting 2 units of PRBC with dialysis for hemoglobin of 6.9. Left pigtail chest tube drained almost 2 L old blood appearing. I will request fluid studies from any residual drainage. CT of the chest to evaluate for any residual fluid. 06/09: Intubated sedated, wakes up and follows commands. On Levophed at 1 mcg/ min. CT of the chest shows small left pleural effusion bibasilar consolidation , multiple bilateral pulmonary nodules some cavitation indicating septic emboli most likely from staff. Blood cultures from 06/05/18 and 06/06/18 negative to date 06/10: Remains intubated slightly sedated follows commands. Levophed requirement has slightly increased overnight currently on 5 mcg/min. We will recheck blood cultures. Getting hemodialysis today. Chest x-ray shows severe left-sided airspace disease. Check ultrasound of the chest post dialysis. Left pigtail chest tube output 60 ml in last 24 hours 06/11 Patient is sedated with Diprivan and Fentanyl infusion, on Levophed 11 mics. Afebrile. Left pigtail catheter had 50 ml output and a second large bore CT was placed yesterday had approx 100ml overnight. 06/12 Patient remains intubated tolerated CPAP for several hrs yesterday remains on Levophed 10 mics and Vasopressin 0.04. Afebrile. Left pigtail catheter was dislodged yesterday, 28Fr CT had 50ml output overnight. Tolerating tube feeds. 06/13: Remains critical Levophed requirement has decreased to 5 mcg/min same dose of vasopressin 0.04. However hemoglobin has dropped to 6.7, 2 units of PRBC ordered stat. Chest tube output approximately 200 mL serosanguineous. I do not believe this is the source of his anemia. Previous history of GI bleed will consult GI. Remains encephalopathic and lethargic I do not think he can be successfully be weaned off the ventilator without a tracheostomy. General surgery consulted per Dr. Umana's request for OR tracheostomy Subjective 06/14: Remains on ventilator no acute distress. Currently on vasopressin 0.04. Norepinephrine has been held. Remains hyponatremic and hyperphosphatemia. 06/15: Remains intubated sedated remains on vasopressin. Hyponatremia worsening most likely volume related. Discussed with nephrology plan for HD with fluid removal today. Check TSH, monitor CMP 06/16: Intubated off sedation weakly follows some commands. Chest tube output has significantly diminished. After discussion with Dr. Umana has agreed on tracheostomy, planned for . Remains on Vasopressin 06/17: Remains off sedation now following commands intermittently on upper extremities. Tolerating CPAP with high pressure support. Remains on vasopressin and now on Levophed at 2 mcg/min but systolic blood pressure above 160, I have instructed RN to wean Levophed 06/18: Remains intubated and lightly sedated with low-dose propofol and fentanyl. Tolerate CPAP at high settings unable to reduce pressure support. Will proceed with tracheostomy today with Dr. Acosta. PEG tube per GI. 06/19: off vasopressors. PEG placement. remains trached. will need long-term weaning and rehab. LTAC appropriate. Objective Vital Signs / I&O: Vital Signs 06/18/18 17:30 06/18/18 18:00 06/18/18 19:45 Temperature Pulse Rate 114 H Respiratory Rate 20 21 18 Blood Pressure 116/65 Pulse Oximetry 100 100 06/18/18 20:00 06/18/18 22:00 06/18/18 22:20 Temperature 36.9 C Pulse Rate 113 H 100 H Respiratory Rate 18 24 18 Blood Pressure 107/64 111/58 L Pulse Oximetry 100 99 100 06/19/18 00:00 06/19/18 01:26 06/19/18 02:00 Temperature 37.2 C Pulse Rate 96 H 109 H Respiratory Rate 22 18 20 Blood Pressure 117/68 119/74 Pulse Oximetry 100 100 99 06/19/18 04:00 06/19/18 04:02 06/19/18 06:00 Temperature 37.3 C Pulse Rate 99 H 108 H Respiratory Rate 17 17 25 H Blood Pressure 130/60 117/58 L Pulse Oximetry 100 100 96 06/19/18 07:32 06/19/18 08:00 06/19/18 10:00 Temperature 37.3 C Pulse Rate 111 H 101 H 115 H Respiratory Rate 21 14 Blood Pressure 112/58 L Pulse Oximetry 100 95 06/19/18 11:14 06/19/18 12:00 06/19/18 14:00 Temperature 37.7 C H Pulse Rate 113 H 106 H Respiratory Rate 20 19 Blood Pressure 91/68 L Pulse Oximetry 100 100 Intake & Output 06/18/18 06/19/18 06/19/18 18:59 06:59 18:59 Intake Total 300 / 300 532 / 532 200 / 200 Output Total 80 / 80 475 / 475 3000 / 3000 Balance 220 / 220 57 / 57 -2800 / -2800 Weight 126.4 kg Intake: IV 350 / 350 200 / 200 Flexbumin 25% Inj 100 ML @ 60 200 / 200 mls/hr IV.SIG WITH DIALYSIS PRN Rx#:[id number] Diflucan 200 mg Premix Bag 200 100 / 100 MG In Bag/Syringe 1 EACH @ 100 mls/hr IV.SIG Q24H TRACIE Rx#: [id number] Levophed-Dextrose 4 mg/250 ml 250 / 250 Drip 4 mg In 250 ml @ 2 MCG/MIN 7.5 mls/hr IV.SIG TITRATE PRN Rx#:[id number] Tube Feeding 0 / 0 82 / 82 Water Bolus Amount 100 / 100 Anesthesia Amount 300 / 300 Output: Urine 0 / 0 0 / 0 Stool 50 / 50 400 / 400 Hemodialysis Amount 3000 / 3000 Estimated Blood Loss 30 / 30 Chest Tube Drainage 75 / 75 #2 Left Lower Mid-Axillary 75 / 75 Chest Other: Date of Last Bowel Movement 06/18/18 06/19/18 06/19/18 Result Diagrams: 06/19/18 15:20 06/19/18 15:20 Objective Remarks: GENERAL: 73-year-old -[place] male, lying in bed, trached, off sedation HEENT: Normocephalic. Atraumatic. Pupils equal, round, reactive. NECK: Trachea is midline. s/p trach. Left IJ CVL is clean dry and intact. CHEST: PRVC, now on CPAP. equal chest rise. Left chest tube with no significant output CARDIOVASCULAR: Atrial fibrillation rate controlled. No murmurs. No JVD. Off pressors ABDOMEN: Soft, nontender, nondistended. No guarding. Left femoral dialysis catheter site clean dry and intact MUSCULOSKELETAL: Right upper extremity s/p debridement upper incision W/D dressing. Pulses 2+. No peripheral edema. NEUROLOGICAL: Intubated sedated. Follows commands weakly on upper extremities. No focal deficits Assessment and Plan - Assessment and Plan Plan: NEURO/PSYCH: Toxic metabolic encephalopathy -Daily sedation medication -As needed hydromorphone 0.5 mg IV every 2 hours as needed added 06/11 -Acetaminophen 650 mg by tube every 6 hours as needed fever -Altered mentation secondary to toxic metabolic encephalopathy from sepsis and hypercapnia -PT/OT for passive range of motion RESP: Acute hypoxemic and hypercarbic respiratory failure Multiple pulmonary nodules/septic emboli Pulmonary edema Left Hemothorax MRSA pneumonia -trach 06/18/[address] Acosta -HCAP with MRSA- present on admission -Continue abx. daily SBT as narciso. Ventilator bundle. Albuterol/ipratropium aerosols every 6 hours scheduled and albuterol aerosols every 2 hours as needed s/p 10 Fr pigtail chest tube, left, with >1L old dark blood. 06/07. Dislodged 06/11. Fluid studies consistent with hemothorax s/p 28Fr CT placement 06/10 with 400ml removed on insertion, had minimal output last 24 hours. Remove chest tube tomorrow. CXR : Improved left lung airspace consolidation. There is residual bilateral airspace consolidation, left greater than right. CT of the chest shows multiple pulmonary nodules with some cavitation indicating septic emboli CV: Septic shock-resolved Pulmonary edema-resolving Atrial fibrillation with RVR-currently rate controlled Acute severe anion gap Metabolic acidosis- resolved Off pressors A. fib rate is controlled and currently normal sinus rhythm, cannot anticoagulate due to history of recent GI bleed, and blood loss anemia Echo 06/12/2018 shows mild concentric left ventricular hypertrophy. The left ventricular systolic function is normal with an estimated ejection fraction in the range of 55-60%. There is trace tricuspid valve regurgitation. There is a small pericardial effusion present. GI/HEME/FEN: Recent GI bleed Acute normocytic anemia requiring transfusion Hyperphosphatemia Hyponatremia hypoalbuminemia -s/p Transfusion of 2U PRBC with HD 06/10, additional 2 units given 06/13/18 -GI consulted. Nepro tube feeds at 45 cc an hour per nutrition recommendations with Beneprotein 1 packet 3 times daily-Hold for trach and PEG -IV pantoprazole 40 mg IV q12 -Docusate sodium/senna 1 tablet twice daily for bowel regimen -Calcium acetate 667 mg 3 times daily for elevated phosphorus. /renal: End-stage renal disease on hemodialysis HeRO graft placed 09/2017, now removed due to graft infection -Nephrology: Dr. Davidson following -Continue HD per nephrology, Getting HD today -Monitor renal function, I/O's, avoid nephrotoxins ID: Septic shock- resolved HeRO graft infection s/p removal HCAP pneumonia- present on admission MRSA septic emboli to lung Persistent MRSA bacteremia -MRSA bacteremia could be secondary to infected remnant of the AV graft, versus secondary seeding of the catheters Recent blood cultures since 06/05/2018 had been negative -Removed Vas-Cath, and left IJ central line 06/03/18 - 05/27, 05/28, 05/30, 06/01 and 06/04 blood cultures MRSA - 05/27 sputum cultures: Providencia, MRSA, e.coli - 06/02 wound with Arlet albicans - ID Dr. Morgan, abx management per ID - cont vancomycin: keep trough 15-20 cont rifampin - Continue fluconazole - Will need minimum 6 weeks coverage for MRSA graft infection - Dr. Umana following ENDO: Type 2 diabetes Presumed Adrenal insufficiency- resolved -Sliding scale insulin with aspart insulin every 4 hours -Status post stress steroids PROPH: -Bilateral lower extremity SCDs. IV Protonix 40 mg every 12. Chemical prophylaxis contraindicated due to anemia requiring transfusion LINES: -Removed OSH left IJ central line and OSH right femoral Vas-Cath on 06/03/2018 -New left femoral Vas-Cath placement 06/04/18 -left radial arterial line 05/27-removed 06/13/18 -New LIJ central line 06/08/18 due to ongoing pressor requirement OVERALL IMPRESSION: very slow improvements. needs long-term abx and will need weaning. good LTAC candidate.
--- NOTE | 2018-06-19 17:29 | P.RAD ---
Post Procedure Progress Note - Pre Procedure Diagnosis (1) End stage renal disease on dialysis - Post Procedure Diagnosis (1) End stage renal disease on dialysis - Procedure Information Procedure Date: 06/19/18 Supervising Radiologist: Clinton Melendez Jr, MD Anesthesia: Other - Plan of Activity Patient to Unit: Critical Care Patient Condition: Fair See PACS Report for procedural detail/treatment. CVAD Radiology Procedures left Internal Jugular Hemodialysis Catheter Tunneled Placement Device: dual lumen Azeri: 15 - Additional Detail Findings: Placed LIJ Permcath. Works well. OK to use. Plan: Routine dialysis care.
[2018-06-19] MEDS: FLUCONAZOLE IV.SIG SCH (22:13)
[2018-06-19] MEDS: fentaNYL 10 mcg/mL Premix Drip 2,500 MCG/250 ML BAG IV.SIG PRN (23:36)
[2018-06-20] MEDS: Insulin NovoLOG Aspart Correctional Sugar Inj SQ SCH ×6 (00:21→20:16)
[2018-06-20 05:31] LABS: Calcium 10.6 mg/dL (8.5-10.1); Carbon Dioxide 27.2 meq/L (21.0-32.0); Magnesium 2.4 mg/dL (1.5-2.5); Phosphorus 4.1 mg/dL (2.5-4.9); Potassium 3.5 meq/L (3.5-5.1)
[2018-06-20] MEDS: Mupirocin 2% Nasal Oint Topical Syringe EACH NARE SCH ×2 (08:46→20:00)
[2018-06-20] MEDS: Hypromellose 0.3% Opth Gel 10 GM Bottle EACH EYE SCH ×2 (08:46→20:00)
[2018-06-20] MEDS: Beneprotein Powder Packet G-TUBE SCH ×3 (08:46→19:58)
[2018-06-20] MEDS: Calcium Acetate 667 MG Capsule PO SCH ×3 (08:47→19:58)
[2018-06-20] MEDS: Senna/Docusate Sodium 8.6/50 MG Tablet PO SCH ×2 (08:47→20:01)
--- NOTE | 2018-06-20 10:53 | P.PNNP ---
Subjective Interval history: Patient is awake, on the vent, with Tracheostomy. Physical Exam Vital signs: Vital Signs 06/19/18 11:14 06/19/18 12:00 06/19/18 14:00 Temperature 99.9 F H Pulse Rate 113 H 106 H Respiratory Rate 20 19 Blood Pressure 91/68 L Pulse Oximetry 100 100 06/19/18 16:00 06/19/18 17:36 06/19/18 18:00 Temperature 99.4 F Pulse Rate 111 H 113 H Respiratory Rate 22 Blood Pressure 113/58 L Pulse Oximetry 96 100 06/19/18 19:01 06/19/18 19:18 06/19/18 19:31 Temperature Pulse Rate 102 H 102 H Respiratory Rate 14 26 H 18 Blood Pressure 67/46 L 76/51 L Pulse Oximetry 96 97 97 06/19/18 20:00 06/19/18 22:00 06/19/18 22:01 Temperature 99.1 F Pulse Rate 111 H 116 H Respiratory Rate 20 Blood Pressure 172/64 H 117/62 Pulse Oximetry 93 L 06/19/18 22:31 06/19/18 23:00 06/19/18 23:23 Temperature Pulse Rate 114 H 113 H Respiratory Rate 21 34 H 26 H Blood Pressure 101/59 L 98/69 L Pulse Oximetry 97 94 L 97 06/19/18 23:31 06/19/18 23:33 06/20/18 00:00 Temperature 99.2 F Pulse Rate 115 H 114 H 106 H Respiratory Rate 29 H 22 8 L Blood Pressure 155/117 H 125/59 L 88/51 L Pulse Oximetry 100 93 L 96 06/20/18 00:01 06/20/18 00:17 06/20/18 00:30 Temperature Pulse Rate 104 H 105 H Respiratory Rate 6 L 16 14 Blood Pressure 88/51 L 91/56 L Pulse Oximetry 97 98 06/20/18 01:00 06/20/18 01:01 06/20/18 01:30 Temperature Pulse Rate 108 H 109 H 105 H Respiratory Rate 16 17 21 Blood Pressure 134/62 133/62 Pulse Oximetry 93 L 98 96 06/20/18 02:00 06/20/18 02:30 06/20/18 03:00 Temperature Pulse Rate 109 H 109 H 105 H Respiratory Rate 16 14 11 L Blood Pressure 137/78 134/74 Pulse Oximetry 95 94 L 97 06/20/18 03:01 06/20/18 03:30 06/20/18 04:00 Temperature 99.1 F Pulse Rate 107 H 105 H 106 H Respiratory Rate 15 17 15 Blood Pressure 109/57 L 121/63 125/75 Pulse Oximetry 98 97 97 06/20/18 04:30 06/20/18 04:51 06/20/18 05:00 Temperature Pulse Rate 105 H 106 H Respiratory Rate 15 19 Blood Pressure 144/84 H 129/64 Pulse Oximetry 98 98 96 06/20/18 05:30 06/20/18 06:00 06/20/18 06:30 Temperature Pulse Rate 108 H 107 H 109 H Respiratory Rate 19 19 23 Blood Pressure 142/77 H 135/73 137/85 Pulse Oximetry 97 97 99 06/20/18 07:00 06/20/18 07:31 06/20/18 08:00 Temperature 99.4 F Pulse Rate 108 H 106 H 104 H Respiratory Rate 21 21 14 Blood Pressure 141/63 H 124/56 L 118/56 L Pulse Oximetry 96 97 97 06/20/18 08:07 06/20/18 08:30 06/20/18 09:00 Temperature Pulse Rate 103 H 99 H Respiratory Rate 28 H 24 20 Blood Pressure 131/62 116/58 L Pulse Oximetry 99 94 L 95 Intake & Output 06/19/18 06/20/18 06/20/18 18:59 06:59 18:59 Intake Total 1086 / 1086 340 / 340 Output Total 3060 / 3060 220 / 220 Balance -1973 / 120 / 120 Weight 134.4 kg Intake: IV 700 / 700 100 / 100 Flexbumin 25% Inj 100 ML @ 60 200 / 200 mls/hr IV.SIG WITH DIALYSIS PRN Rx#:[id number] Diflucan 200 mg Premix Bag 200 100 / 100 MG In Bag/Syringe 1 EACH @ 100 mls/hr IV.SIG Q24H TRACIE Rx#: [id number] Vancomycin Inj 1,000 MG In NS 250 / 250 Inj 250 ML @ 250 mls/hr IV.SIG WITH DIALYSIS TRACIE Rx#:[id number] fentaNYL 10 mcg/mL Premix Drip 250 / 250 2,500 mcg In 250 ml @ 50 MCG/HR 5 mls/hr IV.SIG TITRATE PRN Rx #:[id number] Tube Feeding 86 / 86 120 / 120 Water Bolus Amount 300 / 300 120 / 120 Output: Urine 0 / 0 Stool 50 / 50 200 / 200 Hemodialysis Amount 3000 / 3000 Chest Tube Drainage #2 Left Lower Mid-Axillary Chest Other: Date of Last Bowel Movement 06/19/18 06/20/18 06/20/18 Narrative: Eyes open; non verbal Trach in place without any complications - Urinary Catheter Management Suprapubic Cath placed during this visit: no Assessment and Plan - Assessment (1) End stage renal disease on dialysis Code(s): N18.6 - End stage renal disease; Z99.2 - Dependence on renal dialysis Status: Acute (2) Hemodialysis access, AV graft Code(s): Z99.2 - Dependence on renal dialysis Status: Acute - Plan Patient has sepsis and undergoing treatment with IV vancomycin Patient low blood pressure on vasopressors Patient last ultrafiltration 3 L was removed. Status post tracheostomy going to have permacath Need long-term placement Apparent HeRO infection and MRSA: Removal of previous left IJ port, s/p partial removal for right arm graft and HeRO outflow component. Ongoing hypotension - follow with ID and Vascular. HD was done yesterday. D/W the , continue HD 3 times a week and as needed. --
[2018-06-20] MEDS: Pantoprazole Inj 40 MG Vial IV.PUSH SCH ×2 (12:29→22:43)
--- NOTE | 2018-06-20 12:40 | IR ---
EXAM DATE: 06/19/2018 7:50 PM EDT AGE/SEX: 73 years / Male INDICATIONS: Patient with a history of renal disease, needs dialysis. Has a yet to mature fistula w ithin the right arm. CLINICAL DATA: This is the patient's initial encounter. Patient reports that signs and symptoms have been present for 1 day and indicates a pain score of Nonresponsive. MEDICAL/SURGICAL HISTORY: . Diabetes ESRD DVT HTN Obesity . Unable to obtain COMPARISON: No prior exams available for comparison. FLUORO TIME (min): 1.6 IMAGE SERIES: 1 ACCESS SITE: SEDATION TIME (min): 0 CONTRAST (cc): 0 DEVICE(S): 31CM AVENDAÑO . . PROCEDURE: 1. Ultrasound-guided venipuncture. 2. PermaCath placement. 3. Conscious sedation with continuous EKG and oximetry monitoring. The risks, benefits and alternatives to the procedure were explained and verbal and written consent w as obtained. The site was prepped in sterile fashion. Full sterile technique was used, including ca p, mask, sterile gloves and gown and a large sterile sheet. Hand hygiene and 2% chlorhexidine and/or betadine/alcohol prep was utilized per protocol for cutaneous antisepsis. Sterile gel and sterile p robe cover were utilized for ultrasound guidance. The skin and subcutaneous tissues were infiltrated with local anesthetic solution. With ultrasound and fluoroscopic guidance a dermatotomy was created over the prescribed vein. A micr opuncture set was used to access the targeted vein and serial dilatation was performed to accept the prescribed length catheter. A subcutaneous tunnel was created in a retrograde fashion the catheter w as pulled through the tunnel. The catheter was flushed and assembled and locked with heparin. The c atheter was sutured in place. Conscious sedation was performed with the prescribed dosages and duration as above in the presence of an independent trained radiology nurse to assist in the monitoring of the patient. EKG and oximetry remained stable throughout the procedure. The patient tolerated the procedure well and there were n o complications. The patient was sent to post anesthesia recovery in stable condition. CONCLUSION: 1. Uncomplicated PermaCath placement as above. Electronically signed by: Clinton Melendez MD 06/20/2018 12:38 PM EDT
--- NOTE | 2018-06-20 13:08 | P.PNID ---
Subjective Remarks: no fever Off pressors, but BP trends to be low sp trach tolerates CPAP all night and today cont to have diarrhea Antibiotics: vanco fluconzole rifampin Allergies/Adverse Reactions: Allergies No Known Allergies Allergy (Unknown, Uncoded 12/24/17 14:57) Objective Vital Signs 06/19/18 14:00 06/19/18 16:00 06/19/18 17:36 Temperature 99.4 F Pulse Rate 106 H 111 H Respiratory Rate 22 Blood Pressure 113/58 L Pulse Oximetry 96 100 06/19/18 18:00 06/19/18 19:01 06/19/18 19:18 Temperature Pulse Rate 113 H 102 H Respiratory Rate 14 26 H Blood Pressure 67/46 L Pulse Oximetry 96 97 06/19/18 19:31 06/19/18 20:00 06/19/18 22:00 Temperature 99.1 F Pulse Rate 102 H 111 H 116 H Respiratory Rate 18 20 Blood Pressure 76/51 L 172/64 H Pulse Oximetry 97 93 L 06/19/18 22:01 06/19/18 22:31 06/19/18 23:00 Temperature Pulse Rate 114 H 113 H Respiratory Rate 21 34 H Blood Pressure 117/62 101/59 L 98/69 L Pulse Oximetry 97 94 L 06/19/18 23:23 06/19/18 23:31 06/19/18 23:33 Temperature Pulse Rate 115 H 114 H Respiratory Rate 26 H 29 H 22 Blood Pressure 155/117 H 125/59 L Pulse Oximetry 97 100 93 L 06/20/18 00:00 06/20/18 00:01 06/20/18 00:17 Temperature 99.2 F Pulse Rate 106 H 104 H Respiratory Rate 8 L 6 L 16 Blood Pressure 88/51 L 88/51 L Pulse Oximetry 96 97 06/20/18 00:30 06/20/18 01:00 06/20/18 01:01 Temperature Pulse Rate 105 H 108 H 109 H Respiratory Rate 14 16 17 Blood Pressure 91/56 L 134/62 Pulse Oximetry 98 93 L 98 06/20/18 01:30 06/20/18 02:00 06/20/18 02:30 Temperature Pulse Rate 105 H 109 H 109 H Respiratory Rate 21 16 14 Blood Pressure 133/62 137/78 134/74 Pulse Oximetry 96 95 94 L 06/20/18 03:00 06/20/18 03:01 06/20/18 03:30 Temperature Pulse Rate 105 H 107 H 105 H Respiratory Rate 11 L 15 17 Blood Pressure 109/57 L 121/63 Pulse Oximetry 97 98 97 06/20/18 04:00 06/20/18 04:30 06/20/18 04:51 Temperature 99.1 F Pulse Rate 106 H 105 H Respiratory Rate 15 15 Blood Pressure 125/75 144/84 H Pulse Oximetry 97 98 98 06/20/18 05:00 06/20/18 05:30 06/20/18 06:00 Temperature Pulse Rate 106 H 108 H 107 H Respiratory Rate 19 19 19 Blood Pressure 129/64 142/77 H 135/73 Pulse Oximetry 96 97 97 06/20/18 06:30 06/20/18 07:00 06/20/18 07:31 Temperature Pulse Rate 109 H 108 H 106 H Respiratory Rate 23 21 21 Blood Pressure 137/85 141/63 H 124/56 L Pulse Oximetry 99 96 97 06/20/18 08:00 06/20/18 08:07 06/20/18 08:30 Temperature 99.4 F Pulse Rate 104 H 103 H Respiratory Rate 14 28 H 24 Blood Pressure 118/56 L 131/62 Pulse Oximetry 97 99 94 L 06/20/18 09:00 06/20/18 09:30 06/20/18 10:00 Temperature Pulse Rate 99 H 103 H 104 H Respiratory Rate 20 21 27 H Blood Pressure 116/58 L 131/61 133/63 Pulse Oximetry 95 93 L 95 06/20/18 10:30 06/20/18 11:00 06/20/18 11:01 Temperature Pulse Rate 109 H 100 H 100 H Respiratory Rate 28 H 18 20 Blood Pressure 142/69 H 88/53 L Pulse Oximetry 94 L 97 97 06/20/18 11:31 06/20/18 12:00 06/20/18 12:01 Temperature 98.6 F Pulse Rate 96 H 109 H Respiratory Rate 19 26 H 25 H Blood Pressure 103/54 L 114/60 Pulse Oximetry 97 92 L 99 06/20/18 12:31 Temperature Pulse Rate 99 H Respiratory Rate 22 Blood Pressure 89/51 L Pulse Oximetry 97 Intake & Output 06/19/18 06/20/18 06/20/18 18:59 06:59 18:59 Intake Total 1086 / 1086 340 / 340 Output Total 3060 / 3060 220 / 220 Balance -1973 / -1973 120 / 120 Weight 134.4 kg Intake: IV 700 / 700 100 / 100 Flexbumin 25% Inj 100 ML @ 60 200 / 200 mls/hr IV.SIG WITH DIALYSIS PRN Rx#:[id number] Diflucan 200 mg Premix Bag 200 100 / 100 MG In Bag/Syringe 1 EACH @ 100 mls/hr IV.SIG Q24H [facility] Rx#: [id number] Vancomycin Inj 1,000 MG In NS 250 / 250 Inj 250 ML @ 250 mls/hr IV.SIG WITH DIALYSIS [facility] Rx#:[id number] fentaNYL 10 mcg/mL Premix Drip 250 / 250 2,500 mcg In 250 ml @ 50 MCG/HR 5 mls/hr IV.SIG TITRATE PRN Rx #:[id number] Tube Feeding 86 / 86 120 / 120 Water Bolus Amount 300 / 300 120 / 120 Output: Urine 0 / 0 Stool 50 / 50 200 / 200 Hemodialysis Amount 3000 / 3000 Chest Tube Drainage / 20 #2 Left Lower Mid-Axillary 20 Chest Other: Date of Last Bowel Movement 06/19/18 06/20/18 06/20/18 05/28/18 14:40 Wound - Arm Fungal Smear - Final No fungal elements seen 05/28/18 14:40 Wound - Arm Fungal Culture - Preliminary No growth in 3 weeks 05/28/18 14:40 Wound - Arm Acid Fast Bacilli Smear - Final No acid fast bacilli seen 05/28/18 14:40 Wound - Arm Mycobacterial Culture - Preliminary No growth in 3 weeks 05/28/18 14:40 Other Fungal Smear - Final No fungal elements seen 05/28/18 14:40 Other Fungal Culture - Preliminary No growth in 3 weeks 05/28/18 14:40 Other Acid Fast Bacilli Smear - Final No acid fast bacilli seen 05/28/18 14:40 Other Mycobacterial Culture - Preliminary No growth in 3 weeks Lab - Hematology Results 06/19/18 15:20 WBC 6.0 RBC 2.89 L Hgb 8.6 L Hct 25.7 L MCV 88.9 MCH 29.6 MCHC 33.3 RDW 15.6 Plt Count 322 MPV 7.1 Neut % (Auto) 61.7 Lymph % (Auto) 18.9 Quay % (Auto) 12.9 H Eos % (Auto) 5.2 H Baso % (Auto) 1.3 Neut # (Auto) 3.7 Lymph # (Auto) 1.1 Quay # (Auto) 0.8 Eos # (Auto) 0.3 Baso # (Auto) 0.1 WBC Differential . Differential Comment Auto diff final Lab - Chemistry Results 06/18/18 06/18/18 06/18/18 17:50 19:49 23:58 Sodium Potassium Chloride Carbon Dioxide Anion Gap BUN Creatinine Estimated GFR POC Glucose 227 H 211 H 175 H Random Glucose Calcium Phosphorus Magnesium Prealbumin 06/19/18 06/19/18 06/19/18 03:44 07:55 11:52 Sodium Potassium Chloride Carbon Dioxide Anion Gap BUN Creatinine Estimated GFR POC Glucose 113 H 194 H 144 H Random Glucose Calcium Phosphorus Magnesium Prealbumin 06/19/18 06/19/18 06/19/18 15:20 15:41 20:14 Sodium 139 Potassium 3.8 Chloride 98 Carbon Dioxide 27.5 Anion Gap 14 BUN 38 H Creatinine 5.65 H Estimated GFR 12 L POC Glucose 167 H 184 H Random Glucose 140 H Calcium 9.9 Phosphorus 4.0 Magnesium 2.2 Prealbumin 11 L 06/20/18 06/20/18 06/20/18 00:14 03:30 07:31 Sodium 136 Potassium 3.5 Chloride 97 L Carbon Dioxide 27.2 Anion Gap 12 BUN 46 H Creatinine 6.55 H Estimated GFR 10 L POC Glucose 159 H 140 H Random Glucose 88 Calcium 10.6 H Phosphorus 4.1 Magnesium 2.4 Prealbumin 06/20/18 12:30 Sodium Potassium Chloride Carbon Dioxide Anion Gap BUN Creatinine Estimated GFR POC Glucose 189 H Random Glucose Calcium Phosphorus Magnesium Prealbumin Imaging: ITS Impressions Chest CT 06/10/18 12:01 CONCLUSION: 1. Bilateral parenchymal infiltrates are seen as well as bilateral moderate effusions left greater than right. 2. Pulmonary nodules are identified including cavitary lesions. Upper Extremity Ultrasound 06/14/18 00:00 CONCLUSION: 1. Very impressive subcutaneous edema. No drainable fluid collection or abscess Abdomen X-Ray 06/17/18 00:00 CONCLUSION: NG tube as above. Chest X-Ray 06/18/18 14:07 CONCLUSION: Satisfactory tracheostomy. No complication Central Venous Line 06/19/18 00:00 CONCLUSION: 1. Uncomplicated PermaCath placement as above. Physical Exam: GENERAL: NAD somnolent SKIN: Warm and dry. No rash HEAD: Atraumatic. Normocephalic. EYES: Pupils equal and round. No scleral icterus. No injection or drainage. ENT: No nasal bleeding or discharge. Mucous membranes pink and moist. NECK: trach in place CARDIOVASCULAR: Regular rate and rhythm. Chest incision is open and packed, minim,al serosang drainage on the packing RESPIRATORY: No accessory muscle use. Crackes to auscultation. Breath sounds equal bilaterally. CT in place in [facility] very [place] d/c GASTROINTESTINAL: Abdomen soft, non-tender, nondistended. Hepatic and splenic margins not palpable. MUSCULOSKELETAL: Extremities without clubbing, cyanosis, +mild edema. 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
[2018-06-20] MEDS ORDERED: Haloperidol Inj 5 MG/ML Ampul IV.PUSH PRN (13:47)
--- NOTE | 2018-06-20 13:53 | P.PNCC ---
Subjective Subjective Remarks/Hospital Course: Mr. Laguerre is a 73-year-old -[place] male with past medical history significant for end-stage renal disease on hemodialysis, hypertension, complicated vascular access, HeRO graft placement by Dr. Umana on 09/23/2017, revision and PTFE replacement 12/25/17. who presented to the [facility] with probable sepsis and shock. Dr. Umana was contacted and patient was accepted for transfer to CVICU in [facility]. I immediately evaluated the patient on arrival to CVICU. Patient is currently on BiPAP (transported on BiPAP) severely encephalopathic hardly wakes up to sternal rub, with a rapid shallow breathing. BiPAP settings 18/8, 60% FiO2. He is literally unresponsive and not protecting airway. Currently he is on Levophed at 20 mcg/min with a map 65-70. He is also on amiodarone for atrial fibrillation with RVR. Because of lack of airway protection, severe encephalopathy, septic shock and hypoxia I proceeded with endotracheal intubation. His glottic opening was completely occluded with thick secretions, several minutes of suctioning needed to clear the secretions prior to intubation. Postintubation Levophed had to be increased to 30 mcg/min, I also placed an arterial line. All cultures, routine labs and lactic acid pending at this time. I have started him on vancomycin and Zosyn. Discussed case with Dr. Umana extensively Patient was unable to provide any history, according to the RN who got report patient apparently had GI bleed, underwent EGD with cauterization of duodenal ulcer few days ago. Will avoid heparin for DVT prophylaxis. His postintubation ABG showed severe hypoxia with significant AA gradient, metabolic acidosis, and a hemoglobin of 7.6. Currently Levophed is increased to 30 mcg/min, I will transfuse 1 unit PRBC. Chest x-ray shows pulmonary edema will arrange for hemodialysis once his shock is improves. At this time he will not be able to tolerate either hemodialysis or even CVVH 05/28: initially evaluated around 6:30am. patient in refractory septic shock. added epinephrine to levophed and vasopressin. discussed with Dr. Umana. obtained u/s of the right upper extremity which demonstrated fluid collection surrounding the HeRO graft which was heterogenous in nature. added single dose of Amikacin to vanc/zosyn regimen to cover ESBL organisms. patient remains in shock. per verbal report from OSH, blood cultures growing MRSA. taken to OR urgently and large amount of purulent drainage debrided from around catheter. HeRO catheter removed. returns from OR persistently unstable. acidosis worsening. bicarb given. discussed with nephrology and will need CRRT. 05/29: s/p emergent debridement and removal of HeRO graft. today vasopressor doses are somewhat lower, although remains on levo,vaso,epi. lactate cleared. s/ p IHD today with 3L removal. blood growing MRSA. sputum growing e.coli, providencia, MRSA. wbc remains elevated. 05/30: off vasopressors. getting IHD again today. hgb 7 and receiving 1 unit prbc during dialysis. encephalopathy persists, not following commands. 05/31: clinically continues to improve. not following commands, very slow to arouse. bradycardic this AM, but tolerating hemodynamically. HD yesterday with volume removal. 06/01: Clinically improved off all pressors. Sedated with propofol and fentanyl , opens eyes moves extremities not following commands. Plan for hemodialysis today. Initiate CPAP trial after hemodialysis. Persistently bacteremic with MRSA, repeat cultures in 24 hours 06/02: Remains in septic shock, though pressor requirement has improved. Hypotensive bradycardic while getting HD yesterday, started on Dopamine, now at 3 mcg/kg/min. Pus being expressed from upper part of right upper chest [id number] (HeRO AVG removal site). Hypothermic. Some pus around the suprapubic catheter 06/03: Patient had been weaned off all pressors now. Not requiring dopamine for the last 18 hours. However WBC count 13 K today. Persistent bacteremia with MRSA. Source could be right upper extremity graft remnant versus infected invasive catheters. After hemodialysis removal HD catheter, also remove left IJ central line. Repeat blood cultures in 24 hours. Antibiotics broadened by ID yesterday 06/04: Showing some clinical signs of improvement. Not requiring pressors hypothermia has resolved. CBC still pending patient is more awake following commands tolerating CPAP now. Left IJ central line and right femoral Vas-Cath was removed yesterday. Plan for next dialysis is tomorrow will place new Vas- Cath tomorrow a.m. to give 'line holiday'. 06/05: Back on norepinephrine at 10 mics per minute. Blood blood pressure variable, intermittently hypotensive. New Vas-Cath placed in groin functional. Most recent cultures continued to grow gram-positive cocci. Alert when propofol is lightened 06/06: Afebrile. Remains on norepinephrine drip at 7 mcg/min. Arousable on the ventilator on sedation vacation. Commands. -3 L with hemodialysis yesterday. Repeat blood cultures done the same. Right upper extremity ultrasound pending.. 06/07: remains on vasopressors. cxr today with new left pleural effusion which is quite large: confirmed on bedside lung ultrasound. pigtail chest tube placed with > 1L old hemothorax. hgb slightly lower, but hemodynamically stable. discussed with nephrology and vascular surgery and most ideal plan would be to transfuse prbc tomorrow with HD. 06/08: Remains intubated sedated with propofol. Currently on 8 mcg/min of Levophed but map is above 75. Getting 2 units of PRBC with dialysis for hemoglobin of 6.9. Left pigtail chest tube drained almost 2 L old blood appearing. I will request fluid studies from any residual drainage. CT of the chest to evaluate for any residual fluid. 06/09: Intubated sedated, wakes up and follows commands. On Levophed at 1 mcg/ min. CT of the chest shows small left pleural effusion bibasilar consolidation , multiple bilateral pulmonary nodules some cavitation indicating septic emboli most likely from staff. Blood cultures from 06/05/18 and 06/06/18 negative to date 06/10: Remains intubated slightly sedated follows commands. Levophed requirement has slightly increased overnight currently on 5 mcg/min. We will recheck blood cultures. Getting hemodialysis today. Chest x-ray shows severe left-sided airspace disease. Check ultrasound of the chest post dialysis. Left pigtail chest tube output 60 ml in last 24 hours 06/11 Patient is sedated with Diprivan and Fentanyl infusion, on Levophed 11 mics. Afebrile. Left pigtail catheter had 50 ml output and a second large bore CT was placed yesterday had approx 100ml overnight. 06/12 Patient remains intubated tolerated CPAP for several hrs yesterday remains on Levophed 10 mics and Vasopressin 0.04. Afebrile. Left pigtail catheter was dislodged yesterday, 28Fr CT had 50ml output overnight. Tolerating tube feeds. 06/13: Remains critical Levophed requirement has decreased to 5 mcg/min same dose of vasopressin 0.04. However hemoglobin has dropped to 6.7, 2 units of PRBC ordered stat. Chest tube output approximately 200 mL serosanguineous. I do not believe this is the source of his anemia. Previous history of GI bleed will consult GI. Remains encephalopathic and lethargic I do not think he can be successfully be weaned off the ventilator without a tracheostomy. General surgery consulted per Dr. Umana's request for OR tracheostomy Subjective 06/14: Remains on ventilator no acute distress. Currently on vasopressin 0.04. Norepinephrine has been held. Remains hyponatremic and hyperphosphatemia. 06/15: Remains intubated sedated remains on vasopressin. Hyponatremia worsening most likely volume related. Discussed with nephrology plan for HD with fluid removal today. Check TSH, monitor CMP 06/16: Intubated off sedation weakly follows some commands. Chest tube output has significantly diminished. After discussion with Dr. Umana has agreed on tracheostomy, planned for . Remains on Vasopressin 06/17: Remains off sedation now following commands intermittently on upper extremities. Tolerating CPAP with high pressure support. Remains on vasopressin and now on Levophed at 2 mcg/min but systolic blood pressure above 160, I have instructed RN to wean Levophed 06/18: Remains intubated and lightly sedated with low-dose propofol and fentanyl. Tolerate CPAP at high settings unable to reduce pressure support. Will proceed with tracheostomy today with Dr. Acosta. PEG tube per GI. 06/19: off vasopressors. PEG placement. remains trached. will need long-term weaning and rehab. LTAC appropriate. 06/20: doing well. chest tube water seal overnight without any output- plan to remove today. remains afebrile. will need long weaning. Objective Vital Signs / I&O: Vital Signs 06/19/18 14:00 06/19/18 16:00 06/19/18 17:36 Temperature 37.4 C Pulse Rate 106 H 111 H Respiratory Rate 22 Blood Pressure 113/58 L Pulse Oximetry 96 100 06/19/18 18:00 06/19/18 19:01 06/19/18 19:18 Temperature Pulse Rate 113 H 102 H Respiratory Rate 14 26 H Blood Pressure 67/46 L Pulse Oximetry 96 97 06/19/18 19:31 06/19/18 20:00 06/19/18 22:00 Temperature 37.3 C Pulse Rate 102 H 111 H 116 H Respiratory Rate 18 20 Blood Pressure 76/51 L 172/64 H Pulse Oximetry 97 93 L 06/19/18 22:01 06/19/18 22:31 06/19/18 23:00 Temperature Pulse Rate 114 H 113 H Respiratory Rate 21 34 H Blood Pressure 117/62 101/59 L 98/69 L Pulse Oximetry 97 94 L 06/19/18 23:23 06/19/18 23:31 06/19/18 23:33 Temperature Pulse Rate 115 H 114 H Respiratory Rate 26 H 29 H 22 Blood Pressure 155/117 H 125/59 L Pulse Oximetry 97 100 93 L 06/20/18 00:00 06/20/18 00:01 06/20/18 00:17 Temperature 37.3 C Pulse Rate 106 H 104 H Respiratory Rate 8 L 6 L 16 Blood Pressure 88/51 L 88/51 L Pulse Oximetry 96 97 06/20/18 00:30 06/20/18 01:00 06/20/18 01:01 Temperature Pulse Rate 105 H 108 H 109 H Respiratory Rate 14 16 17 Blood Pressure 91/56 L 134/62 Pulse Oximetry 98 93 L 98 06/20/18 01:30 06/20/18 02:00 06/20/18 02:30 Temperature Pulse Rate 105 H 109 H 109 H Respiratory Rate 21 16 14 Blood Pressure 133/62 137/78 134/74 Pulse Oximetry 96 95 94 L 06/20/18 03:00 06/20/18 03:01 06/20/18 03:30 Temperature Pulse Rate 105 H 107 H 105 H Respiratory Rate 11 L 15 17 Blood Pressure 109/57 L 121/63 Pulse Oximetry 97 98 97 06/20/18 04:00 06/20/18 04:30 06/20/18 04:51 Temperature 37.3 C Pulse Rate 106 H 105 H Respiratory Rate 15 15 Blood Pressure 125/75 144/84 H Pulse Oximetry 97 98 98 06/20/18 05:00 06/20/18 05:30 06/20/18 06:00 Temperature Pulse Rate 106 H 108 H 107 H Respiratory Rate 19 19 19 Blood Pressure 129/64 142/77 H 135/73 Pulse Oximetry 96 97 97 06/20/18 06:30 06/20/18 07:00 06/20/18 07:31 Temperature Pulse Rate 109 H 108 H 106 H Respiratory Rate 23 21 21 Blood Pressure 137/85 141/63 H 124/56 L Pulse Oximetry 99 96 97 06/20/18 08:00 06/20/18 08:07 06/20/18 08:30 Temperature 37.4 C Pulse Rate 104 H 103 H Respiratory Rate 14 28 H 24 Blood Pressure 118/56 L 131/62 Pulse Oximetry 97 99 94 L 06/20/18 09:00 06/20/18 09:30 06/20/18 10:00 Temperature Pulse Rate 99 H 103 H 104 H Respiratory Rate 20 21 27 H Blood Pressure 116/58 L 131/61 133/63 Pulse Oximetry 95 93 L 95 06/20/18 10:30 06/20/18 11:00 06/20/18 11:01 Temperature Pulse Rate 109 H 100 H 100 H Respiratory Rate 28 H 18 20 Blood Pressure 142/69 H 88/53 L Pulse Oximetry 94 L 97 97 06/20/18 11:31 06/20/18 12:00 06/20/18 12:01 Temperature 37.0 C Pulse Rate 96 H 109 H Respiratory Rate 19 26 H 25 H Blood Pressure 103/54 L 114/60 Pulse Oximetry 97 92 L 99 06/20/18 12:31 Temperature Pulse Rate 99 H Respiratory Rate 22 Blood Pressure 89/51 L Pulse Oximetry 97 Intake & Output 06/19/18 06/20/18 06/20/18 18:59 06:59 18:59 Intake Total 1086 / 1086 340 / 340 Output Total 3060 / 3060 220 / 220 Balance -1973 / 120 / 120 Weight 134.4 kg Intake: IV 700 / 700 100 / 100 Flexbumin 25% Inj 100 ML @ 60 200 / 200 mls/hr IV.SIG WITH DIALYSIS PRN Rx#:[id number] Diflucan 200 mg Premix Bag 200 100 / 100 MG In Bag/Syringe 1 EACH @ 100 mls/hr IV.SIG Q24H TRACIE Rx#: [id number] Vancomycin Inj 1,000 MG In NS 250 / 250 Inj 250 ML @ 250 mls/hr IV.SIG WITH DIALYSIS TRACIE Rx#:[id number] fentaNYL 10 mcg/mL Premix Drip 250 / 250 2,500 mcg In 250 ml @ 50 MCG/HR 5 mls/hr IV.SIG TITRATE PRN Rx #:[id number] Tube Feeding 86 / 86 120 / 120 Water Bolus Amount 300 / 300 120 / 120 Output: Urine 0 / 0 Stool 50 / 50 200 / 200 Hemodialysis Amount 3000 / 3000 Chest Tube Drainage 20 #2 Left Lower Mid-Axillary Chest Other: Date of Last Bowel Movement 06/19/18 06/20/18 06/20/18 Result Diagrams: 06/19/18 15:06/20/18 03:30 Objective Remarks: GENERAL: 73-year-old -[place] male, lying in bed, trached, off sedation HEENT: Normocephalic. Atraumatic. Pupils equal, round, reactive. NECK: Trachea is midline. s/p trach. Left IJ CVL is clean dry and intact. CHEST: PRVC, now on CPAP. equal chest rise. Left chest tube with no significant output CARDIOVASCULAR: Atrial fibrillation rate controlled. No murmurs. No JVD. Off pressors ABDOMEN: Soft, nontender, nondistended. No guarding. Left femoral dialysis catheter site clean dry and intact MUSCULOSKELETAL: Right upper extremity s/p debridement upper incision W/D dressing. Pulses 2+. No peripheral edema. NEUROLOGICAL: Intubated sedated. Follows commands weakly on upper extremities. No focal deficits Assessment and Plan - Assessment and Plan Plan: NEURO/PSYCH: Toxic metabolic encephalopathy- resolving. -Daily sedation medication -As needed hydromorphone 0.5 mg IV every 2 hours as needed added 06/11 - add scheduled oxycodone 10mg po q4h - haldol 5mg iv q1h prn for agitation - d/c propofol, fentanyl. -Acetaminophen 650 mg by tube every 6 hours as needed fever -PT/OT for passive range of motion - needs to be OOB to stretcher chair daily. RESP: Acute hypoxemic and hypercarbic respiratory failure- now chronic. Multiple pulmonary nodules/septic emboli Pulmonary edema Left Hemothorax MRSA pneumonia -trach 06/18/[address] Acosta -HCAP with MRSA- present on admission -Continue abx. daily SBT as narciso. Ventilator bundle. Albuterol/ipratropium aerosols every 6 hours scheduled and albuterol aerosols every 2 hours as needed s/p 10 Fr pigtail chest tube, left, with >1L old dark blood. 06/07. Dislodged 06/11. Fluid studies consistent with hemothorax s/p 28Fr CT placement 06/10 with 400ml removed on insertion, had minimal output last 24 hours. Remove chest tube today. CXR : Improved left lung airspace consolidation. There is residual bilateral airspace consolidation, left greater than right. CT of the chest shows multiple pulmonary nodules with some cavitation indicating septic emboli CV: Septic shock-resolved Pulmonary edema-resolving Atrial fibrillation with RVR-currently rate controlled Acute severe anion gap Metabolic acidosis- resolved Off pressors A. fib rate is controlled and currently normal sinus rhythm, cannot anticoagulate due to history of recent GI bleed, and blood loss anemia Echo 06/12/2018 shows mild concentric left ventricular hypertrophy. The left ventricular systolic function is normal with an estimated ejection fraction in the range of 55-60%. There is trace tricuspid valve regurgitation. There is a small pericardial effusion present. add midodrine to support BP likely can improve BP once off sedation. GI/HEME/FEN: Recent GI bleed Acute normocytic anemia requiring transfusion Hyperphosphatemia Hyponatremia hypoalbuminemia -s/p Transfusion of 2U PRBC with HD 06/10, additional 2 units given 06/13/18 -GI consulted. Nepro tube feeds at 45 cc an hour per nutrition recommendations with Beneprotein 1 packet 3 times daily-Hold for trach and PEG -IV pantoprazole 40 mg IV q12 -Docusate sodium/senna 1 tablet twice daily for bowel regimen -Calcium acetate 667 mg 3 times daily for elevated phosphorus. /renal: End-stage renal disease on hemodialysis HeRO graft placed 09/2017, now removed due to graft infection -Nephrology: Dr. Davidson following -Continue HD per nephrology, Getting HD today -Monitor renal function, I/O's, avoid nephrotoxins ID: Septic shock- resolved HeRO graft infection s/p removal HCAP pneumonia- present on admission MRSA septic emboli to lung Persistent MRSA bacteremia -MRSA bacteremia could be secondary to infected remnant of the AV graft, versus secondary seeding of the catheters Recent blood cultures since 06/05/2018 had been negative -Removed Vas-Cath, and left IJ central line 06/03/18 - 05/27, 05/28, 05/30, 06/01 and 06/04 blood cultures MRSA - 05/27 sputum cultures: Providencia, MRSA, e.coli - 06/02 wound with Arlet albicans - ID Dr. Morgan, abx management per ID - cont vancomycin: keep trough 15-20 cont rifampin - Continue fluconazole - Will need minimum 6 weeks coverage for MRSA graft infection - Dr. Umana following ENDO: Type 2 diabetes Presumed Adrenal insufficiency- resolved -Sliding scale insulin with aspart insulin every 4 hours -Status post stress steroids PROPH: -Bilateral lower extremity SCDs. IV Protonix 40 mg every 12. Chemical prophylaxis contraindicated due to anemia requiring transfusion LINES: -Removed OSH left IJ central line and OSH right femoral Vas-Cath on 06/03/2018 -New left femoral Vas-Cath placement 06/04/18 -left radial arterial line 05/27-removed 06/13/18 -New LIJ central line 06/08/18 due to ongoing pressor requirement: can likely be discontinued once appropriate alternative access can be found. OVERALL IMPRESSION: very slow improvements. needs long-term abx and will need weaning. good LTAC candidate.
--- NOTE | 2018-06-20 14:42 | XR ---
EXAM DATE: 06/20/2018 2:32 PM EDT AGE/SEX: 73 years / Male INDICATIONS: Evaluate post chest tube discontinuation. CLINICAL DATA: This is the patient's initial encounter. Patient reports that signs and symptoms have been present for 1 day and indicates a pain score of Nonresponsive. MEDICAL/SURGICAL HISTORY: Cardiovascular disease. Hypertension. None. [place] [facility] [place]. . FINDINGS: A single portable frontal view the chest is blurred by motion artifact. A left thoracostomy tube is b een removed. No pneumothorax seen. Low lung volumes noted with bibasilar atelectasis. Tracheostomy tu be, left sided central line and left-sided dialysis catheter are noted. A vascular stent overlies the right subclavian region. Heart is normal in size. A degenerative spine. CONCLUSION: 1. No pneumothorax following chest tube removal on the left. 2. Bibasilar atelectasis. Electronically signed by: Clinton Melendez MD 06/20/2018 2:40 PM EDT
[2018-06-21] MEDS: Insulin NovoLOG Aspart Correctional Sugar Inj SQ SCH ×6 (01:08→21:19)
--- NOTE | 2018-06-21 05:51 | XR ---
EXAM DATE: 06/21/2018 5:22 AM EDT AGE/SEX: 73 years / Male INDICATIONS: Shortness of breath, possible pulmonary disease. CLINICAL DATA: This is the patient's subsequent encounter. Patient reports that signs and symptoms h ave been present for 1 month and indicates a pain score of Nonresponsive. MEDICAL/SURGICAL HISTORY: Cardiovascular disease. Hypertension. Renal disease, end stage. . T racheostomy. COMPARISON: [facility], CHEST 1V SINGLE AP, 06/20/2018. . FINDINGS: Stable tracheostomy and left IJ dialysis catheter. Left IJ central line has been removed in the inter henry. Persistent patchy bilateral lower lobe airspace disease with increasing opacity in the left uppe r lobe. Cardiomediastinal contours are within normal limits. Remainder of the exam is unchanged. CONCLUSION: 1. Increasing parenchymal opacity in the left upper lung zone may be projectional although concernin g for developing airspace consolidation. 2. Persistent patchy bilateral lower lung zone airspace disease. Electronically signed by: Piter Brooks MD 06/21/2018 5:49 AM EDT
[2018-06-21 07:06] LABS: Hemoglobin 9.1 gm/dL (13.0-17.0); Mean Corpuscular HGB Conc 33.7 % (32.0-36.0); Mean Corpuscular Hemoglobin 30.1 pg (27.0-34.0); Mean Corpuscular Volume 89.5 fL (80.0-100.0); Mean Platelet Volume 7.1 fL (7.0-11.0); Platelet Count 377 th/mm3 (150-450); Red Blood Count 3.02 mil/mm3 (4.50-5.90); Red Cell Distribution Width 15.9 % (11.6-17.2); White Blood Count 8.5 th/mm3 (4.0-11.0)
[2018-06-21 07:29] LABS: Calcium 10.9 mg/dL (8.5-10.1); Carbon Dioxide 24.5 meq/L (21.0-32.0); Magnesium 2.4 mg/dL (1.5-2.5); Potassium 3.7 meq/L (3.5-5.1)
[2018-06-21] MEDS: Mupirocin 2% Nasal Oint Topical Syringe EACH NARE SCH ×2 (08:28→20:40)
[2018-06-21] MEDS: Beneprotein Powder Packet G-TUBE SCH ×3 (08:29→17:04)
[2018-06-21] MEDS: Senna/Docusate Sodium 8.6/50 MG Tablet PO SCH ×2 (08:29→20:40)
[2018-06-21] MEDS: Hypromellose 0.3% Opth Gel 10 GM Bottle EACH EYE SCH ×2 (08:29→20:41)
[2018-06-21] MEDS: Calcium Acetate 667 MG Capsule PO SCH ×3 (08:29→17:04)
[2018-06-21] MEDS: Pantoprazole Inj 40 MG Vial IV.PUSH SCH (10:09)
--- NOTE | 2018-06-21 13:23 | P.PNCC ---
Subjective Subjective Remarks/Hospital Course: Mr. Laguerre is a 73-year-old -[place] male with past medical history significant for end-stage renal disease on hemodialysis, hypertension, complicated vascular access, HeRO graft placement by Dr. Umana on 09/23/2017, revision and PTFE replacement 12/25/17. who presented to the [facility] with probable sepsis and shock. Dr. Umana was contacted and patient was accepted for transfer to CVICU in [facility]. I immediately evaluated the patient on arrival to CVICU. Patient is currently on BiPAP (transported on BiPAP) severely encephalopathic hardly wakes up to sternal rub, with a rapid shallow breathing. BiPAP settings 18/8, 60% FiO2. He is literally unresponsive and not protecting airway. Currently he is on Levophed at 20 mcg/min with a map 65-70. He is also on amiodarone for atrial fibrillation with RVR. Because of lack of airway protection, severe encephalopathy, septic shock and hypoxia I proceeded with endotracheal intubation. His glottic opening was completely occluded with thick secretions, several minutes of suctioning needed to clear the secretions prior to intubation. Postintubation Levophed had to be increased to 30 mcg/min, I also placed an arterial line. All cultures, routine labs and lactic acid pending at this time. I have started him on vancomycin and Zosyn. Discussed case with Dr. Umana extensively Patient was unable to provide any history, according to the RN who got report patient apparently had GI bleed, underwent EGD with cauterization of duodenal ulcer few days ago. Will avoid heparin for DVT prophylaxis. His postintubation ABG showed severe hypoxia with significant AA gradient, metabolic acidosis, and a hemoglobin of 7.6. Currently Levophed is increased to 30 mcg/min, I will transfuse 1 unit PRBC. Chest x-ray shows pulmonary edema will arrange for hemodialysis once his shock is improves. At this time he will not be able to tolerate either hemodialysis or even CVVH 05/28: initially evaluated around 6:30am. patient in refractory septic shock. added epinephrine to levophed and vasopressin. discussed with Dr. Umana. obtained u/s of the right upper extremity which demonstrated fluid collection surrounding the HeRO graft which was heterogenous in nature. added single dose of Amikacin to vanc/zosyn regimen to cover ESBL organisms. patient remains in shock. per verbal report from OSH, blood cultures growing MRSA. taken to OR urgently and large amount of purulent drainage debrided from around catheter. HeRO catheter removed. returns from OR persistently unstable. acidosis worsening. bicarb given. discussed with nephrology and will need CRRT. 05/29: s/p emergent debridement and removal of HeRO graft. today vasopressor doses are somewhat lower, although remains on levo,vaso,epi. lactate cleared. s/ p IHD today with 3L removal. blood growing MRSA. sputum growing e.coli, providencia, MRSA. wbc remains elevated. 05/30: off vasopressors. getting IHD again today. hgb 7 and receiving 1 unit prbc during dialysis. encephalopathy persists, not following commands. 05/31: clinically continues to improve. not following commands, very slow to arouse. bradycardic this AM, but tolerating hemodynamically. HD yesterday with volume removal. 06/01: Clinically improved off all pressors. Sedated with propofol and fentanyl , opens eyes moves extremities not following commands. Plan for hemodialysis today. Initiate CPAP trial after hemodialysis. Persistently bacteremic with MRSA, repeat cultures in 24 hours 06/02: Remains in septic shock, though pressor requirement has improved. Hypotensive bradycardic while getting HD yesterday, started on Dopamine, now at 3 mcg/kg/min. Pus being expressed from upper part of right upper chest [id number] (HeRO AVG removal site). Hypothermic. Some pus around the suprapubic catheter 06/03: Patient had been weaned off all pressors now. Not requiring dopamine for the last 18 hours. However WBC count 13 K today. Persistent bacteremia with MRSA. Source could be right upper extremity graft remnant versus infected invasive catheters. After hemodialysis removal HD catheter, also remove left IJ central line. Repeat blood cultures in 24 hours. Antibiotics broadened by ID yesterday 06/04: Showing some clinical signs of improvement. Not requiring pressors hypothermia has resolved. CBC still pending patient is more awake following commands tolerating CPAP now. Left IJ central line and right femoral Vas-Cath was removed yesterday. Plan for next dialysis is tomorrow will place new Vas- Cath tomorrow a.m. to give 'line holiday'. 06/05: Back on norepinephrine at 10 mics per minute. Blood blood pressure variable, intermittently hypotensive. New Vas-Cath placed in groin functional. Most recent cultures continued to grow gram-positive cocci. Alert when propofol is lightened 06/06: Afebrile. Remains on norepinephrine drip at 7 mcg/min. Arousable on the ventilator on sedation vacation. Commands. -3 L with hemodialysis yesterday. Repeat blood cultures done the same. Right upper extremity ultrasound pending.. 06/07: remains on vasopressors. cxr today with new left pleural effusion which is quite large: confirmed on bedside lung ultrasound. pigtail chest tube placed with > 1L old hemothorax. hgb slightly lower, but hemodynamically stable. discussed with nephrology and vascular surgery and most ideal plan would be to transfuse prbc tomorrow with HD. 06/08: Remains intubated sedated with propofol. Currently on 8 mcg/min of Levophed but map is above 75. Getting 2 units of PRBC with dialysis for hemoglobin of 6.9. Left pigtail chest tube drained almost 2 L old blood appearing. I will request fluid studies from any residual drainage. CT of the chest to evaluate for any residual fluid. 06/09: Intubated sedated, wakes up and follows commands. On Levophed at 1 mcg/ min. CT of the chest shows small left pleural effusion bibasilar consolidation , multiple bilateral pulmonary nodules some cavitation indicating septic emboli most likely from staff. Blood cultures from 06/05/18 and 06/06/18 negative to date 06/10: Remains intubated slightly sedated follows commands. Levophed requirement has slightly increased overnight currently on 5 mcg/min. We will recheck blood cultures. Getting hemodialysis today. Chest x-ray shows severe left-sided airspace disease. Check ultrasound of the chest post dialysis. Left pigtail chest tube output 60 ml in last 24 hours 06/11 Patient is sedated with Diprivan and Fentanyl infusion, on Levophed 11 mics. Afebrile. Left pigtail catheter had 50 ml output and a second large bore CT was placed yesterday had approx 100ml overnight. 06/12 Patient remains intubated tolerated CPAP for several hrs yesterday remains on Levophed 10 mics and Vasopressin 0.04. Afebrile. Left pigtail catheter was dislodged yesterday, 28Fr CT had 50ml output overnight. Tolerating tube feeds. 06/13: Remains critical Levophed requirement has decreased to 5 mcg/min same dose of vasopressin 0.04. However hemoglobin has dropped to 6.7, 2 units of PRBC ordered stat. Chest tube output approximately 200 mL serosanguineous. I do not believe this is the source of his anemia. Previous history of GI bleed will consult GI. Remains encephalopathic and lethargic I do not think he can be successfully be weaned off the ventilator without a tracheostomy. General surgery consulted per Dr. Umana's request for OR tracheostomy Subjective 06/14: Remains on ventilator no acute distress. Currently on vasopressin 0.04. Norepinephrine has been held. Remains hyponatremic and hyperphosphatemia. 06/15: Remains intubated sedated remains on vasopressin. Hyponatremia worsening most likely volume related. Discussed with nephrology plan for HD with fluid removal today. Check TSH, monitor CMP 06/16: Intubated off sedation weakly follows some commands. Chest tube output has significantly diminished. After discussion with Dr. Umana has agreed on tracheostomy, planned for . Remains on Vasopressin 06/17: Remains off sedation now following commands intermittently on upper extremities. Tolerating CPAP with high pressure support. Remains on vasopressin and now on Levophed at 2 mcg/min but systolic blood pressure above 160, I have instructed RN to wean Levophed 06/18: Remains intubated and lightly sedated with low-dose propofol and fentanyl. Tolerate CPAP at high settings unable to reduce pressure support. Will proceed with tracheostomy today with Dr. Acosta. PEG tube per GI. 06/19: off vasopressors. PEG placement. remains trached. will need long-term weaning and rehab. LTAC appropriate. 06/20: doing well. chest tube water seal overnight without any output- plan to remove today. remains afebrile. will need long weaning. 06/21: more awake today. needs to be OOB to stretcher chair. Objective Vital Signs / I&O: Vital Signs 06/20/18 13:31 06/20/18 14:00 06/20/18 14:30 Temperature Pulse Rate 101 H 102 H 111 H Respiratory Rate 21 24 26 H Blood Pressure 123/65 112/55 L 124/78 Pulse Oximetry 97 94 L 95 06/20/18 15:00 06/20/18 15:01 06/20/18 15:30 Temperature Pulse Rate 103 H 109 H 103 H Respiratory Rate 21 21 20 Blood Pressure 103/55 L 115/60 Pulse Oximetry 95 96 97 06/20/18 16:00 06/20/18 16:30 06/20/18 18:00 Temperature 37.6 C Pulse Rate 107 H 102 H 100 H Respiratory Rate 22 19 Blood Pressure 127/62 117/56 L Pulse Oximetry 94 L 95 06/20/18 20:00 06/20/18 20:27 06/20/18 22:00 Temperature 37.0 C Pulse Rate 92 H 100 H 101 H Respiratory Rate 19 28 H Blood Pressure 83/47 L Pulse Oximetry 97 97 06/20/18 23:45 06/21/18 00:00 06/21/18 02:00 Temperature 37.3 C Pulse Rate 107 H 100 H Respiratory Rate 24 26 H Blood Pressure 137/65 Pulse Oximetry 98 93 L 06/21/18 04:00 06/21/18 04:38 06/21/18 06:00 Temperature 37.3 C Pulse Rate 100 H 100 H Respiratory Rate 22 26 H Blood Pressure 97/57 L Pulse Oximetry 94 L 99 06/21/18 08:00 06/21/18 08:21 06/21/18 10:00 Temperature 37.0 C Pulse Rate 107 H 135 H Respiratory Rate 27 H 26 H Blood Pressure 92/70 L Pulse Oximetry 94 L 94 L 06/21/18 11:03 06/21/18 12:00 Temperature Pulse Rate 135 H Respiratory Rate 21 Blood Pressure Pulse Oximetry 96 Intake & Output 06/20/18 06/21/18 06/21/18 18:59 06:59 18:59 Intake Total 468 / 468 620 / 620 Output Total 80 / 80 200 / 200 Balance 388 / 388 420 / 420 Weight 134.4 kg Intake: IV 105 / 105 fentaNYL 10 mcg/mL Premix Drip 105 / 105 2,500 mcg In 250 ml @ 50 MCG/HR 5 mls/hr IV.SIG TITRATE PRN Rx #:[id number] Tube Feeding 123 / 123 420 / 420 Tube Irrigant 180 / 180 200 / 200 Other 60 / 60 Output: Stool 80 / 80 200 / 200 Other: Other Intake Source Saline Solution Date of Last Bowel Movement 06/20/18 06/20/18 06/20/18 Result Diagrams: 06/21/18 06:20 06/21/18 06:20 Objective Remarks: GENERAL: 73-year-old -[place] male, lying in bed, trached, off sedation HEENT: Normocephalic. Atraumatic. Pupils equal, round, reactive. NECK: Trachea is midline. s/p trach. CHEST: PRVC, now on CPAP. equal chest rise. CARDIOVASCULAR: Atrial fibrillation rate controlled. No JVD. Off pressors ABDOMEN: Soft, nontender, nondistended. No guarding. Left femoral dialysis catheter site clean dry and intact MUSCULOSKELETAL: Right upper extremity s/p debridement upper incision W/D dressing. Pulses 2+. No peripheral edema. NEUROLOGICAL: Intubated sedated. Follows commands weakly on upper extremities. No focal deficits Assessment and Plan - Assessment and Plan Plan: NEURO/PSYCH: Toxic metabolic encephalopathy- resolving. -As needed hydromorphone 0.5 mg IV every 2 hours as needed added 06/11 - scheduled oxycodone 10mg po q4h - haldol 5mg iv q1h prn for agitation -Acetaminophen 650 mg by tube every 6 hours as needed fever -PT/OT for passive range of motion - needs to be OOB to stretcher chair daily. RESP: Acute hypoxemic and hypercarbic respiratory failure- now chronic. Multiple pulmonary nodules/septic emboli Pulmonary edema Left Hemothorax MRSA pneumonia -trach 06/18/[address] Acosta -[facility] with MRSA- present on admission -Continue abx. daily SBT as narciso. Ventilator bundle. Albuterol/ipratropium aerosols every 6 hours scheduled and albuterol aerosols every 2 hours as needed s/p 10 Fr pigtail chest tube, left, with >1L old dark blood. 06/07. Dislodged 06/11. Fluid studies consistent with hemothorax s/p 28Fr CT placement 06/10 with 400ml removed on insertion, had minimal output last 24 hours. Remove chest tube today. CXR : Improved left lung airspace consolidation. There is residual bilateral airspace consolidation, left greater than right. CT of the chest shows multiple pulmonary nodules with some cavitation indicating septic emboli CV: Septic shock-resolved Pulmonary edema-resolving Atrial fibrillation with RVR-currently rate controlled Acute severe anion gap Metabolic acidosis- resolved Off pressors A. fib rate is controlled and currently normal sinus rhythm, cannot anticoagulate due to history of recent GI bleed, and blood loss anemia Echo 06/12/2018 shows mild concentric left ventricular hypertrophy. The left ventricular systolic function is normal with an estimated ejection fraction in the range of 55-60%. There is trace tricuspid valve regurgitation. There is a small pericardial effusion present. midodrine to support BP GI/HEME/FEN: Recent GI bleed Acute normocytic anemia requiring transfusion Hyperphosphatemia Hyponatremia hypoalbuminemia -s/p Transfusion of 2U PRBC with HD 06/10, additional 2 units given 06/13/18 -GI consulted. Nepro tube feeds at 45 cc an hour per nutrition recommendations with Beneprotein 1 packet 3 times daily-Hold for trach and PEG -IV pantoprazole 40 mg IV q12 -Docusate sodium/senna 1 tablet twice daily for bowel regimen -Calcium acetate 667 mg 3 times daily for elevated phosphorus. /renal: End-stage renal disease on hemodialysis HeRO graft placed 09/2017, now removed due to graft infection -Nephrology: Dr. Davidson following -Continue HD per nephrology, Getting HD today -Monitor renal function, I/O's, avoid nephrotoxins ID: Septic shock- resolved HeRO graft infection s/p removal HCAP pneumonia- present on admission MRSA septic emboli to lung Persistent MRSA bacteremia -MRSA bacteremia could be secondary to infected remnant of the AV graft, versus secondary seeding of the catheters Recent blood cultures since 06/05/2018 had been negative -Removed Vas-Cath, and left IJ central line 06/03/18 - 05/27, 05/28, 05/30, 06/01 and 06/04 blood cultures MRSA - 05/27 sputum cultures: Providencia, MRSA, e.coli - 06/02 wound with Arlet albicans - ID Dr. Morgan, abx management per ID - cont vancomycin: keep trough 15-20 cont rifampin - Continue fluconazole - Will need minimum 6 weeks coverage for MRSA graft infection - Dr. Umana following ENDO: Type 2 diabetes Presumed Adrenal insufficiency- resolved -Sliding scale insulin with aspart insulin every 4 hours -Status post stress steroids PROPH: -Bilateral lower extremity SCDs. IV Protonix 40 mg every 12. Chemical prophylaxis contraindicated due to anemia requiring transfusion LINES: -Removed OSH left IJ central line and OSH right femoral Vas-Cath on 06/03/2018 -New left femoral Vas-Cath placement 06/04/18 -left radial arterial line 05/27-removed 06/13/18 -New LIJ central line 06/08/18 due to ongoing pressor requirement: can likely be discontinued once appropriate alternative access can be found. OVERALL IMPRESSION: very slow improvements. needs long-term abx and will need weaning. good LTAC candidate.
--- NOTE | 2018-06-21 13:49 | P.PN ---
Subjective Interval history: Appears comfortable; on CPAP with PS 12, down from 18 48 hrs ago. Physical Exam Vital signs: Vital Signs 06/20/18 14:00 06/20/18 14:30 06/20/18 15:00 Temperature Pulse Rate 102 H 111 H 103 H Respiratory Rate 24 26 H 21 Blood Pressure 112/55 L 124/78 Pulse Oximetry 94 L 95 95 06/20/18 15:01 06/20/18 15:30 06/20/18 16:00 Temperature 99.6 F Pulse Rate 109 H 103 H 107 H Respiratory Rate 21 20 22 Blood Pressure 103/55 L 115/60 127/62 Pulse Oximetry 96 97 94 L 06/20/18 16:30 06/20/18 18:00 06/20/18 20:00 Temperature 98.6 F Pulse Rate 102 H 100 H 92 H Respiratory Rate 19 19 Blood Pressure 117/56 L 83/47 L Pulse Oximetry 95 97 06/20/18 20:27 06/20/18 22:00 06/20/18 23:45 Temperature Pulse Rate 100 H 101 H Respiratory Rate 28 H 24 Blood Pressure Pulse Oximetry 97 98 06/21/18 00:00 06/21/18 02:00 06/21/18 04:00 Temperature 99.2 F 99.2 F Pulse Rate 107 H 100 H 100 H Respiratory Rate 26 H 22 Blood Pressure 137/65 97/57 L Pulse Oximetry 93 L 94 L 06/21/18 04:38 06/21/18 06:00 06/21/18 08:00 Temperature 98.6 F Pulse Rate 100 H 107 H Respiratory Rate 26 H 27 H Blood Pressure 92/70 L Pulse Oximetry 99 94 L 06/21/18 08:21 06/21/18 10:00 06/21/18 11:03 Temperature Pulse Rate 135 H Respiratory Rate 26 H 21 Blood Pressure Pulse Oximetry 94 L 96 06/21/18 12:00 Temperature Pulse Rate 135 H Respiratory Rate Blood Pressure Pulse Oximetry Intake & Output 06/20/18 06/21/18 06/21/18 18:59 06:59 18:59 Intake Total 468 / 468 620 / 620 Output Total 80 / 80 200 / 200 Balance 388 / 388 420 / 420 Weight 134.4 kg Intake: IV 105 / 105 fentaNYL 10 mcg/mL Premix Drip 105 / 105 2,500 mcg In 250 ml @ 50 MCG/HR 5 mls/hr IV.SIG TITRATE PRN Rx #:[id number] Tube Feeding 123 / 123 420 / 420 Tube Irrigant 180 / 180 200 / 200 Other 60 / 60 Output: Stool 80 / 80 200 / 200 Other: Other Intake Source Saline Solution Date of Last Bowel Movement 06/20/18 06/20/18 06/20/18 - Routine Neck Exam Present: supple Comments: Old blood on trach dressing; minimal. - Urinary Catheter Management Suprapubic Cath placed during this visit: no Results - Labs CBC & Chem 7: 06/21/18 06:20 06/21/18 06:20 Laboratory Results - last 24 hr 06/20/18 06/20/18 06/21/18 16:22 20:16 01:07 WBC RBC Hgb Hct MCV MCH MCHC RDW Plt Count MPV Sodium Potassium Chloride Carbon Dioxide Anion Gap BUN Creatinine Estimated GFR POC Glucose 167 H 155 H 198 H Random Glucose Calcium Phosphorus Magnesium 06/21/18 06/21/18 06/21/18 05:58 06:20 06:20 WBC 8.5 RBC 3.02 L Hgb 9.1 L Hct 27.0 L MCV 89.5 MCH 30.1 MCHC 33.7 RDW 15.9 Plt Count 377 MPV 7.1 Sodium 134 L Potassium 3.7 Chloride 95 L Carbon Dioxide 24.5 Anion Gap 15 BUN 57 H Creatinine 7.76 H Estimated GFR 8 L POC Glucose 185 H Random Glucose 181 H Calcium 10.9 H Phosphorus 5.0 H Magnesium 2.4 06/21/18 06/21/18 08:26 11:42 WBC RBC Hgb Hct MCV MCH MCHC RDW Plt Count MPV Sodium Potassium Chloride Carbon Dioxide Anion Gap BUN Creatinine Estimated GFR POC Glucose 197 H 178 H Random Glucose Calcium Phosphorus Magnesium - Imaging Impressions Chest X-Ray 06/20/18 00:00 CONCLUSION: 1. No pneumothorax following chest tube removal on the left. 2. Bibasilar atelectasis. Chest X-Ray 06/21/18 05:00 CONCLUSION: 1. Increasing parenchymal opacity in the left upper lung zone may be projectional although concerning for developing airspace consolidation. 2. Persistent patchy bilateral lower lung zone airspace disease. Assessment and Plan - Assessment (1) Ventilator dependence Code(s): Z99.11 - Dependence on respirator [ventilator] status Status: Acute Plan: POD #3 open tracheostomy, no issues. Will sign off; recall if needed. Sutures can be removed after POD #7, or if they become inflamed at the skin. - Plan Discussed Condition With: Nurse , who was at bedside. - Attending Attestation I attest that I had a [id number] encounter with the patient on the same day, and personally performed and documented my assessment and findings in the medical record. The following services were provided during this hospital visit: Chart data review, vital sign assessments/reviewing monitor data Review of consultation notes if present Medication orders/review and/or management Ordering and/or reviewing lab tests Ordering and/or interpreting/reviewing x-rays and/or diagnostic studies Care of the patient and discussion of the patient with the care team Documentation time To help prompt me to consider important information that might be impacting today's encounter and assessment, Information from prior notes written by myself or my colleagues may have been "brought forward/copy and pasted" into today's note.
--- NOTE | 2018-06-21 17:22 | P.PNNP ---
Subjective Interval history: Patient seen in the afternoon, clinically same. Physical Exam Vital signs: Vital Signs 06/20/18 18:00 06/20/18 20:00 06/20/18 20:27 Temperature 98.6 F Pulse Rate 100 H 92 H 100 H Respiratory Rate 19 28 H Blood Pressure 83/47 L Pulse Oximetry 97 97 06/20/18 22:00 06/20/18 23:45 06/21/18 00:00 Temperature 99.2 F Pulse Rate 101 H 107 H Respiratory Rate 24 26 H Blood Pressure 137/65 Pulse Oximetry 98 93 L 06/21/18 02:00 06/21/18 04:00 06/21/18 04:38 Temperature 99.2 F Pulse Rate 100 H 100 H Respiratory Rate 22 26 H Blood Pressure 97/57 L Pulse Oximetry 94 L 99 06/21/18 06:00 06/21/18 08:00 06/21/18 08:21 Temperature 98.6 F Pulse Rate 100 H 107 H Respiratory Rate 27 H 26 H Blood Pressure 92/70 L Pulse Oximetry 94 L 94 L 06/21/18 10:00 06/21/18 11:03 06/21/18 12:00 Temperature Pulse Rate 97 H 92 H Respiratory Rate 21 Blood Pressure Pulse Oximetry 96 06/21/18 14:00 06/21/18 14:16 06/21/18 16:00 Temperature Pulse Rate 88 88 Respiratory Rate 21 Blood Pressure Pulse Oximetry 100 Intake & Output 06/20/18 06/21/18 06/21/18 18:59 06:59 18:59 Intake Total 468 / 468 620 / 620 Output Total 80 / 80 200 / 200 Balance 388 / 388 420 / 420 Weight 134.4 kg Intake: IV 105 / 105 fentaNYL 10 mcg/mL Premix Drip 105 / 105 2,500 mcg In 250 ml @ 50 MCG/HR 5 mls/hr IV.SIG TITRATE PRN Rx #:[id number] Tube Feeding 123 / 123 420 / 420 Tube Irrigant 180 / 180 200 / 200 Other 60 / 60 Output: Stool 80 / 80 200 / 200 Other: Other Intake Source Saline Solution Date of Last Bowel Movement 06/20/18 06/20/18 06/20/18 Narrative: Eyes open; non verbal Trach in place without any complications Lungs: Bilateral basal rales, and diffuse wheezing. Abd: distended, BS positive. Ext: Moderate leg edema. - Urinary Catheter Management Suprapubic Cath placed during this visit: no Assessment and Plan - Assessment (1) End stage renal disease on dialysis Code(s): N18.6 - End stage renal disease; Z99.2 - Dependence on renal dialysis Status: Acute (2) Hemodialysis access, AV graft Code(s): Z99.2 - Dependence on renal dialysis Status: Acute - Plan Patient has sepsis and undergoing treatment with IV vancomycin Patient low blood pressure on vasopressors Patient last ultrafiltration 3 L was removed. Status post tracheostomy going to have permacath Need long-term placement Apparent HeRO infection and MRSA: Removal of previous left IJ port, s/p partial removal for right arm graft and HeRO outflow component. Ongoing hypotension - follow with ID and Vascular. HD was done on Friday. Continue HD 3 times a week and as needed. Continue antibiotics. --
[2018-06-22] MEDS: Pantoprazole Inj 40 MG Vial IV.PUSH SCH ×3 (00:29→23:42)
[2018-06-22] MEDS: Insulin NovoLOG Aspart Correctional Sugar Inj SQ SCH ×6 (00:29→20:55)
[2018-06-22 06:33] LABS: Calcium 10.6 mg/dL (8.5-10.1); Carbon Dioxide 19.7 meq/L (21.0-32.0); Magnesium 2.4 mg/dL (1.5-2.5); Phosphorus 4.7 mg/dL (2.5-4.9); Potassium 4.4 meq/L (3.5-5.1)
--- NOTE | 2018-06-22 09:03 | P.PNVS ---
Subjective Subjective/Hospital Course: Afebrile 73/M s/p R UE AV graft removal Pt alert follows commands and answers yes and no questions appropriately by shaking his head Pt on CPAP via trach, off pressors R chest to arm incision intact/healing w/o erythema/drainage Objective Vital Signs / I&O: Vital Signs 06/21/18 10:00 06/21/18 11:03 06/21/18 12:00 Temperature 98.5 F Pulse Rate 97 H 92 H Respiratory Rate 21 16 Blood Pressure 96/55 L Pulse Oximetry 96 92 L 06/21/18 14:00 06/21/18 14:16 06/21/18 16:00 Temperature 98.7 F Pulse Rate 88 88 Respiratory Rate 21 22 Blood Pressure 92/54 L Pulse Oximetry 100 94 L 06/21/18 18:00 06/21/18 19:55 06/21/18 20:00 Temperature 98.8 F Pulse Rate 100 H 88 Respiratory Rate 19 15 Blood Pressure 110/56 L Pulse Oximetry 99 100 06/21/18 22:00 06/22/18 00:00 06/22/18 00:30 Temperature 98.8 F Pulse Rate 93 H 93 H Respiratory Rate 15 20 Blood Pressure 141/65 H Pulse Oximetry 100 99 06/22/18 02:00 06/22/18 04:00 06/22/18 04:35 Temperature 98.9 F Pulse Rate 82 77 Respiratory Rate 15 17 Blood Pressure 98/75 L Pulse Oximetry 100 96 06/22/18 06:00 06/22/18 07:20 Temperature Pulse Rate 80 Respiratory Rate 19 Blood Pressure Pulse Oximetry 100 Intake & Output 06/21/18 06/22/18 06/22/18 18:59 06:59 18:59 Intake Total 544 / 544 200 / 200 Output Total 200 / 200 200 / 200 Balance 344 / 344 0 / 0 Weight 136.1 kg Intake: Oral 200 / 200 Tube Feeding 424 / 424 Tube Irrigant 120 / 120 Output: Stool 200 / 200 200 / 200 Other: Date of Last Bowel Movement 06/21/18 06/22/18 Physical Exam: 73/M on CPAP via Trach Alert Resp even Irregular HR Incision R chest to arm intact w/o R/D R arm with improved swelling Palpable R/L Radial pulse (2+) Laboratory Results - last 24 hr 06/21/18 06/21/18 06/21/18 11:42 16:47 20:43 Sodium Potassium Chloride Carbon Dioxide Anion Gap BUN Creatinine Estimated GFR POC Glucose 178 H 220 H 191 H Random Glucose Calcium Phosphorus Magnesium Random Vancomycin 06/22/18 06/22/18 00:23 05:15 Sodium 130 L Potassium 4.4 Chloride 93 L Carbon Dioxide 19.7 L Anion Gap 17 H BUN 68 H Creatinine 8.64 H Estimated GFR 7 L POC Glucose 195 H Random Glucose 200 H Calcium 10.6 H Phosphorus 4.7 Magnesium 2.4 Random Vancomycin 20.0 Impressions Central Venous Line 06/19/18 00:00 CONCLUSION: 1. Uncomplicated PermaCath placement as above. Chest X-Ray 06/20/18 00:00 CONCLUSION: 1. No pneumothorax following chest tube removal on the left. 2. Bibasilar atelectasis. Chest X-Ray 06/21/18 05:00 CONCLUSION: 1. Increasing parenchymal opacity in the left upper lung zone may be projectional although concerning for developing airspace consolidation. 2. Persistent patchy bilateral lower lung zone airspace disease. Assessment and Plan - Assessment (1) Septic shock Code(s): A41.9 - Sepsis, unspecified organism; R65.21 - Severe sepsis with septic shock Status: Deleted (2) Arteriovenous graft infection Code(s): T82.7XXA - Infection and inflammatory reaction due to other cardiac and vascular devices, implants and grafts, initial encounter Status: Deleted - Plan 73/M appears more alert and responsive this am Pt s/p excision of R neck and arm graft Pt continues to attempt slowly weaning off the ventilator R chest/arm incision healing w/o infectious appearance Plan Continue daily w/d dressing- R neck Continue antibiotics PT/OOB to chair Will continue to follow Eliane Rucker NP [employer] [phone]
[2018-06-22] MEDS: Mupirocin 2% Nasal Oint Topical Syringe EACH NARE SCH ×2 (09:34→20:55)
[2018-06-22] MEDS: Calcium Acetate 667 MG Capsule PO SCH ×3 (09:34→20:55)
[2018-06-22] MEDS: Senna/Docusate Sodium 8.6/50 MG Tablet PO SCH ×2 (09:34→20:56)
--- NOTE | 2018-06-22 10:00 | P.PNCC ---
Subjective Subjective Remarks/Hospital Course: Mr. Laguerre is a 73-year-old -[place] Citizen male with past medical history significant for end-stage renal disease on hemodialysis, hypertension, complicated vascular access, HeRO graft placement by Dr. Umana on 09/23/2017, revision and PTFE replacement 12/25/17. who presented to the [facility] with probable sepsis and shock. Dr. Umana was contacted and patient was accepted for transfer to CVICU in [facility]. I immediately evaluated the patient on arrival to CVICU. Patient is currently on BiPAP (transported on BiPAP) severely encephalopathic hardly wakes up to sternal rub, with a rapid shallow breathing. BiPAP settings 18/8, 60% FiO2. He is literally unresponsive and not protecting airway. Currently he is on Levophed at 20 mcg/min with a map 65-70. He is also on amiodarone for atrial fibrillation with RVR. Because of lack of airway protection, severe encephalopathy, septic shock and hypoxia I proceeded with endotracheal intubation. His glottic opening was completely occluded with thick secretions, several minutes of suctioning needed to clear the secretions prior to intubation. Postintubation Levophed had to be increased to 30 mcg/min, I also placed an arterial line. All cultures, routine labs and lactic acid pending at this time. I have started him on vancomycin and Zosyn. Discussed case with Dr. Umana extensively Patient was unable to provide any history, according to the RN who got report patient apparently had GI bleed, underwent EGD with cauterization of duodenal ulcer few days ago. Will avoid heparin for DVT prophylaxis. His postintubation ABG showed severe hypoxia with significant AA gradient, metabolic acidosis, and a hemoglobin of 7.6. Currently Levophed is increased to 30 mcg/min, I will transfuse 1 unit PRBC. Chest x-ray shows pulmonary edema will arrange for hemodialysis once his shock is improves. At this time he will not be able to tolerate either hemodialysis or even CVVH 05/28: initially evaluated around 6:30am. patient in refractory septic shock. added epinephrine to levophed and vasopressin. discussed with Dr. Umana. obtained u/s of the right upper extremity which demonstrated fluid collection surrounding the HeRO graft which was heterogenous in nature. added single dose of Amikacin to vanc/zosyn regimen to cover ESBL organisms. patient remains in shock. per verbal report from OSH, blood cultures growing MRSA. taken to OR urgently and large amount of purulent drainage debrided from around catheter. HeRO catheter removed. returns from OR persistently unstable. acidosis worsening. bicarb given. discussed with nephrology and will need CRRT. 05/29: s/p emergent debridement and removal of HeRO graft. today vasopressor doses are somewhat lower, although remains on levo,vaso,epi. lactate cleared. s/ p IHD today with 3L removal. blood growing MRSA. sputum growing e.coli, providencia, MRSA. wbc remains elevated. 05/30: off vasopressors. getting IHD again today. hgb 7 and receiving 1 unit prbc during dialysis. encephalopathy persists, not following commands. 05/31: clinically continues to improve. not following commands, very slow to arouse. bradycardic this AM, but tolerating hemodynamically. HD yesterday with volume removal. 06/01: Clinically improved off all pressors. Sedated with propofol and fentanyl , opens eyes moves extremities not following commands. Plan for hemodialysis today. Initiate CPAP trial after hemodialysis. Persistently bacteremic with MRSA, repeat cultures in 24 hours 06/02: Remains in septic shock, though pressor requirement has improved. Hypotensive bradycardic while getting HD yesterday, started on Dopamine, now at 3 mcg/kg/min. Pus being expressed from upper part of right upper chest [id number] (HeRO AVG removal site). Hypothermic. Some pus around the suprapubic catheter 06/03: Patient had been weaned off all pressors now. Not requiring dopamine for the last 18 hours. However WBC count 13 K today. Persistent bacteremia with MRSA. Source could be right upper extremity graft remnant versus infected invasive catheters. After hemodialysis removal HD catheter, also remove left IJ central line. Repeat blood cultures in 24 hours. Antibiotics broadened by ID yesterday 06/04: Showing some clinical signs of improvement. Not requiring pressors hypothermia has resolved. CBC still pending patient is more awake following commands tolerating CPAP now. Left IJ central line and right femoral Vas-Cath was removed yesterday. Plan for next dialysis is tomorrow will place new Vas- Cath tomorrow a.m. to give 'line holiday'. 06/05: Back on norepinephrine at 10 mics per minute. Blood blood pressure variable, intermittently hypotensive. New Vas-Cath placed in groin functional. Most recent cultures continued to grow gram-positive cocci. Alert when propofol is lightened 06/06: Afebrile. Remains on norepinephrine drip at 7 mcg/min. Arousable on the ventilator on sedation vacation. Commands. -3 L with hemodialysis yesterday. Repeat blood cultures done the same. Right upper extremity ultrasound pending.. 06/07: remains on vasopressors. cxr today with new left pleural effusion which is quite large: confirmed on bedside lung ultrasound. pigtail chest tube placed with > 1L old hemothorax. hgb slightly lower, but hemodynamically stable. discussed with nephrology and vascular surgery and most ideal plan would be to transfuse prbc tomorrow with HD. 06/08: Remains intubated sedated with propofol. Currently on 8 mcg/min of Levophed but map is above 75. Getting 2 units of PRBC with dialysis for hemoglobin of 6.9. Left pigtail chest tube drained almost 2 L old blood appearing. I will request fluid studies from any residual drainage. CT of the chest to evaluate for any residual fluid. 06/09: Intubated sedated, wakes up and follows commands. On Levophed at 1 mcg/ min. CT of the chest shows small left pleural effusion bibasilar consolidation , multiple bilateral pulmonary nodules some cavitation indicating septic emboli most likely from staff. Blood cultures from 06/05/18 and 06/06/18 negative to date 06/10: Remains intubated slightly sedated follows commands. Levophed requirement has slightly increased overnight currently on 5 mcg/min. We will recheck blood cultures. Getting hemodialysis today. Chest x-ray shows severe left-sided airspace disease. Check ultrasound of the chest post dialysis. Left pigtail chest tube output 60 ml in last 24 hours 06/11 Patient is sedated with Diprivan and Fentanyl infusion, on Levophed 11 mics. Afebrile. Left pigtail catheter had 50 ml output and a second large bore CT was placed yesterday had approx 100ml overnight. 06/12 Patient remains intubated tolerated CPAP for several hrs yesterday remains on Levophed 10 mics and Vasopressin 0.04. Afebrile. Left pigtail catheter was dislodged yesterday, 28Fr CT had 50ml output overnight. Tolerating tube feeds. 06/13: Remains critical Levophed requirement has decreased to 5 mcg/min same dose of vasopressin 0.04. However hemoglobin has dropped to 6.7, 2 units of PRBC ordered stat. Chest tube output approximately 200 mL serosanguineous. I do not believe this is the source of his anemia. Previous history of GI bleed will consult GI. Remains encephalopathic and lethargic I do not think he can be successfully be weaned off the ventilator without a tracheostomy. General surgery consulted per Dr. Umana's request for OR tracheostomy 06/14: Remains on ventilator no acute distress. Currently on vasopressin 0.04. Norepinephrine has been held. Remains hyponatremic and hyperphosphatemia. 06/15: Remains intubated sedated remains on vasopressin. Hyponatremia worsening most likely volume related. Discussed with nephrology plan for HD with fluid removal today. Check TSH, monitor CMP 06/16: Intubated off sedation weakly follows some commands. Chest tube output has significantly diminished. After discussion with Dr. Umana has agreed on tracheostomy, planned for . Remains on Vasopressin 06/17: Remains off sedation now following commands intermittently on upper extremities. Tolerating CPAP with high pressure support. Remains on vasopressin and now on Levophed at 2 mcg/min but systolic blood pressure above 160, I have instructed RN to wean Levophed 06/18: Remains intubated and lightly sedated with low-dose propofol and fentanyl. Tolerate CPAP at high settings unable to reduce pressure support. Will proceed with tracheostomy today with Dr. Acosta. PEG tube per GI. 06/19: off vasopressors. PEG placement. remains trached. will need long-term weaning and rehab. LTAC appropriate. 06/20: doing well. chest tube water seal overnight without any output- plan to remove today. remains afebrile. will need long weaning. 06/21: more awake today. needs to be OOB to stretcher chair. Subjective 06/22: doing well. again appears more awake. sodium trending down which is likely secondary to hypervolemia, likely plan for IHD today. needs to be OOB to stretcher chair. good LTAC candidate: very slow vent weaning attempts. Objective Vital Signs / I&O: Vital Signs 06/21/18 10:00 06/21/18 11:03 06/21/18 12:00 Temperature 36.9 C Pulse Rate 97 H 92 H Respiratory Rate 21 16 Blood Pressure 96/55 L Pulse Oximetry 96 92 L 06/21/18 14:00 06/21/18 14:16 06/21/18 16:00 Temperature 37.1 C Pulse Rate 88 88 Respiratory Rate 21 22 Blood Pressure 92/54 L Pulse Oximetry 100 94 L 06/21/18 18:00 06/21/18 19:55 06/21/18 20:00 Temperature 37.1 C Pulse Rate 100 H 88 Respiratory Rate 19 15 Blood Pressure 110/56 L Pulse Oximetry 99 100 06/21/18 22:00 06/22/18 00:00 06/22/18 00:30 Temperature 37.1 C Pulse Rate 93 H 93 H Respiratory Rate 15 20 Blood Pressure 141/65 H Pulse Oximetry 100 99 06/22/18 02:00 06/22/18 04:00 06/22/18 04:35 Temperature 37.2 C Pulse Rate 82 77 Respiratory Rate 15 17 Blood Pressure 98/75 L Pulse Oximetry 100 96 06/22/18 06:00 06/22/18 07:20 Temperature Pulse Rate 80 Respiratory Rate 19 Blood Pressure Pulse Oximetry 100 Intake & Output 06/21/18 06/22/18 06/22/18 18:59 06:59 18:59 Intake Total 544 / 544 200 / 200 Output Total 200 / 200 200 / 200 Balance 344 / 344 0 / 0 Weight 136.1 kg Intake: Oral 200 / 200 Tube Feeding 424 / 424 Tube Irrigant 120 / 120 Output: Stool 200 / 200 200 / 200 Other: Date of Last Bowel Movement 06/21/18 06/22/18 Result Diagrams: 06/21/18 06:20 06/22/18 05:15 Objective Remarks: GENERAL: 73-year-old -[place] Citizen male, lying in bed, trached, off sedation HEENT: Normocephalic. Atraumatic. Pupils equal, round, reactive. NECK: Trachea is midline. s/p trach. CHEST: PRVC, now on CPAP. equal chest rise. CARDIOVASCULAR: Atrial fibrillation rate controlled. No JVD. Off pressors ABDOMEN: Soft, nontender, nondistended. No guarding. MUSCULOSKELETAL: Right upper extremity s/p debridement upper incision W/D dressing. Pulses 2+. No peripheral edema. NEUROLOGICAL: Intubated sedated. Follows commands weakly on upper extremities. No focal deficits Assessment and Plan - Assessment and Plan Plan: NEURO/PSYCH: Toxic metabolic encephalopathy- resolving. -As needed hydromorphone 0.5 mg IV every 2 hours as needed added 06/11 - scheduled oxycodone 10mg po q4h - haldol 5mg iv q1h prn for agitation -Acetaminophen 650 mg by tube every 6 hours as needed fever -PT/OT for passive range of motion - needs to be OOB to stretcher chair daily. RESP: Acute hypoxemic and hypercarbic respiratory failure- now chronic. Multiple pulmonary nodules/septic emboli Pulmonary edema Left Hemothorax MRSA pneumonia -trach 06/18/[address] Acosta [facility] with MRSA- present on admission -Continue abx. daily SBT as narciso. Ventilator bundle. Albuterol/ipratropium aerosols every 6 hours scheduled and albuterol aerosols every 2 hours as needed s/p 10 Fr pigtail chest tube, left, with >1L old dark blood. 06/07. Dislodged 06/11. Fluid studies consistent with hemothorax s/p 28Fr CT placement 06/10 with 400ml removed on insertion, had minimal output last 24 hours. removed 06/20 CXR : Improved left lung airspace consolidation. There is residual bilateral airspace consolidation, left greater than right. CT of the chest shows multiple pulmonary nodules with some cavitation indicating septic emboli CV: Septic shock-resolved Pulmonary edema-resolving Atrial fibrillation with RVR-currently rate controlled Acute severe anion gap Metabolic acidosis- resolved Off pressors A. fib rate is controlled and currently normal sinus rhythm, cannot anticoagulate due to history of recent GI bleed, and blood loss anemia Echo 06/12/2018 shows mild concentric left ventricular hypertrophy. The left ventricular systolic function is normal with an estimated ejection fraction in the range of 55-60%. There is trace tricuspid valve regurgitation. There is a small pericardial effusion present. midodrine to support BP GI/HEME/FEN: Recent GI bleed Acute normocytic anemia requiring transfusion Hyperphosphatemia Hyponatremia hypoalbuminemia -s/p Transfusion of 2U PRBC with HD 06/10, additional 2 units given 06/13/18 -GI consulted. Nepro tube feeds at 45 cc an hour per nutrition recommendations with Beneprotein 1 packet 3 times daily-Hold for trach and PEG -IV pantoprazole 40 mg IV q12 -Docusate sodium/senna 1 tablet twice daily for bowel regimen -Calcium acetate 667 mg 3 times daily for elevated phosphorus. /renal: End-stage renal disease on hemodialysis HeRO graft placed 09/2017, now removed due to graft infection -Nephrology: Dr. Davidson following -Continue HD per nephrology, Getting HD today -Monitor renal function, I/O's, avoid nephrotoxins ID: Septic shock- resolved HeRO graft infection s/p removal HCAP pneumonia- present on admission MRSA septic emboli to lung Persistent MRSA bacteremia -MRSA bacteremia could be secondary to infected remnant of the AV graft, versus secondary seeding of the catheters Recent blood cultures since 06/05/2018 had been negative -Removed Vas-Cath, and left IJ central line 06/03/18 - 05/27, 05/28, 05/30, 06/01 and 06/04 blood cultures MRSA - 05/27 sputum cultures: Providencia, MRSA, e.coli - 06/02 wound with Arlet albicans - ID Dr. Morgan, abx management per ID - cont vancomycin: keep trough 15-20 cont rifampin - Continue fluconazole - Will need minimum 6 weeks coverage for MRSA graft infection - Dr. Umana following ENDO: Type 2 diabetes Presumed Adrenal insufficiency- resolved -Sliding scale insulin with aspart insulin every 4 hours -Status post stress steroids PROPH: -Bilateral lower extremity SCDs. IV Protonix 40 mg every 12. Chemical prophylaxis contraindicated due to anemia requiring transfusion LINES: -Removed OSH left IJ central line and OSH right femoral Vas-Cath on 06/03/2018 -New left femoral Vas-Cath placement 06/04/18 -left radial arterial line 05/27-removed 06/13/18 -New LIJ central line 06/08/18 due to ongoing pressor requirement: can likely be discontinued once appropriate alternative access can be found. OVERALL IMPRESSION: very slow improvements. needs long-term abx and will need weaning. good LTAC candidate.
[2018-06-22] MEDS: Heparin 10,000 UNITS/10 ML Vial (for IV use) OTHER PRN (11:13)
[2018-06-22] MEDS: Albumin Human 25% Inj 100 ML IV.SIG PRN (11:13)
[2018-06-22] MEDS: Vancomycin Inj 1,000 MG in Sodium Chlor 0.9% Inj 250 ML IV.SIG SCH (11:13)
--- NOTE | 2018-06-22 12:33 | P.PNNP ---
Subjective Interval history: Patient seen during hemodialysis status post tracheostomy on ventilator Physical Exam Vital signs: Vital Signs 06/21/18 14:00 06/21/18 14:16 06/21/18 16:00 Temperature 98.7 F Pulse Rate 88 88 Respiratory Rate 21 22 Blood Pressure 92/54 L Pulse Oximetry 100 94 L 06/21/18 18:00 06/21/18 19:55 06/21/18 20:00 Temperature 98.8 F Pulse Rate 100 H 88 Respiratory Rate 19 15 Blood Pressure 110/56 L Pulse Oximetry 99 100 06/21/18 22:00 06/22/18 00:00 06/22/18 00:30 Temperature 98.8 F Pulse Rate 93 H 93 H Respiratory Rate 15 20 Blood Pressure 141/65 H Pulse Oximetry 100 99 06/22/18 02:00 06/22/18 04:00 06/22/18 04:35 Temperature 98.9 F Pulse Rate 82 77 Respiratory Rate 15 17 Blood Pressure 98/75 L Pulse Oximetry 100 96 06/22/18 06:00 06/22/18 07:20 06/22/18 11:03 Temperature Pulse Rate 80 Respiratory Rate 19 23 Blood Pressure Pulse Oximetry 100 94 L Intake & Output 06/21/18 06/22/18 06/22/18 18:59 06:59 18:59 Intake Total 544 / 544 200 / 200 Output Total 200 / 200 200 / 200 Balance 344 / 344 0 / 0 Weight 136.1 kg Intake: Oral 200 / 200 Tube Feeding 424 / 424 Tube Irrigant 120 / 120 Output: Stool 200 / 200 200 / 200 Other: Date of Last Bowel Movement 06/21/18 06/22/18 - Constitutional no acute distress - Routine HEENT Exam Head: Present: normocephalic - Routine Neck Exam Present: supple - Routine Respiratory Exam Present: CTA bilaterally - Routine Cardiovascular Exam Present: RRR - Routine Abdominal Exam Present: soft, normoactive bowel sounds - Routine Extremities Exam Present: edema - Urinary Catheter Management Suprapubic Cath placed during this visit: no Assessment and Plan - Assessment (1) End stage renal disease on dialysis Code(s): N18.6 - End stage renal disease; Z99.2 - Dependence on renal dialysis Status: Acute (2) Hemodialysis access, AV graft Code(s): Z99.2 - Dependence on renal dialysis Status: Acute - Plan Patient has sepsis and undergoing treatment with IV vancomycin Patient low blood pressure on vasopressors Patient last ultrafiltration 3 L was removed. Status post tracheostomy going to have permacath Need long-term placement Apparent HeRO infection and MRSA: Removal of previous left IJ port, s/p partial removal for right arm graft and HeRO outflow component. Ongoing hypotension - follow with ID and Vascular. HD progress noted 5.5 L will be taken off patient seen during dialysis Continue HD 3 times a week and as needed. Continue antibiotics. --
[2018-06-22] MEDS: Beneprotein Powder Packet G-TUBE SCH ×3 (13:11→20:55)
[2018-06-22] MEDS: Hypromellose 0.3% Opth Gel 10 GM Bottle EACH EYE SCH ×2 (13:12→20:55)
[2018-06-22 15:32] LABS: Hematocrit 27.9 % (39.0-51.0); Hemoglobin 9.3 gm/dL (13.0-17.0); Mean Corpuscular HGB Conc 33.2 % (32.0-36.0); Mean Corpuscular Hemoglobin 29.6 pg (27.0-34.0); Mean Platelet Volume 6.9 fL (7.0-11.0); Platelet Count 403 th/mm3 (150-450); Red Blood Count 3.13 mil/mm3 (4.50-5.90); Red Cell Distribution Width 15.4 % (11.6-17.2); White Blood Count 7.9 th/mm3 (4.0-11.0)
[2018-06-22] MEDS ORDERED: Albumin Human 5% Inj 500 ML IV.SIG ONE (22:32)
[2018-06-22] MEDS ORDERED: Sodium Chlor 0.9% Inj 500 ML IV.SIG SCH (23:00)
[2018-06-23] MEDS: Insulin NovoLOG Aspart Correctional Sugar Inj SQ SCH ×3 (00:27→09:45)
[2018-06-23 04:58] VITALS: TEMP 98
[2018-06-23 06:52] LABS: Hematocrit 24.7 % (39.0-51.0); Hemoglobin 8.1 gm/dL (13.0-17.0); Mean Corpuscular HGB Conc 32.8 % (32.0-36.0); Mean Corpuscular Hemoglobin 29.3 pg (27.0-34.0); Mean Corpuscular Volume 89.4 fL (80.0-100.0); Mean Platelet Volume 7.1 fL (7.0-11.0); Platelet Count 355 th/mm3 (150-450); Red Blood Count 2.77 mil/mm3 (4.50-5.90); Red Cell Distribution Width 15.5 % (11.6-17.2); White Blood Count 8.1 th/mm3 (4.0-11.0)
--- NOTE | 2018-06-23 07:12 | P.PNCC ---
Subjective Subjective Remarks/Hospital Course: Mr. Laguerre is a 73-year-old -[place] male with past medical history significant for end-stage renal disease on hemodialysis, hypertension, complicated vascular access, HeRO graft placement by Dr. Umana on 09/23/2017, revision and PTFE replacement 12/25/17. who presented to the [facility] with probable sepsis and shock. Dr. Umana was contacted and patient was accepted for transfer to CVICU in [facility]. I immediately evaluated the patient on arrival to CVICU. Patient is currently on BiPAP (transported on BiPAP) severely encephalopathic hardly wakes up to sternal rub, with a rapid shallow breathing. BiPAP settings 18/8, 60% FiO2. He is literally unresponsive and not protecting airway. Currently he is on Levophed at 20 mcg/min with a map 65-70. He is also on amiodarone for atrial fibrillation with RVR. Because of lack of airway protection, severe encephalopathy, septic shock and hypoxia I proceeded with endotracheal intubation. His glottic opening was completely occluded with thick secretions, several minutes of suctioning needed to clear the secretions prior to intubation. Postintubation Levophed had to be increased to 30 mcg/min, I also placed an arterial line. All cultures, routine labs and lactic acid pending at this time. I have started him on vancomycin and Zosyn. Discussed case with Dr. Umana extensively Patient was unable to provide any history, according to the RN who got report patient apparently had GI bleed, underwent EGD with cauterization of duodenal ulcer few days ago. Will avoid heparin for DVT prophylaxis. His postintubation ABG showed severe hypoxia with significant AA gradient, metabolic acidosis, and a hemoglobin of 7.6. Currently Levophed is increased to 30 mcg/min, I will transfuse 1 unit PRBC. Chest x-ray shows pulmonary edema will arrange for hemodialysis once his shock is improves. At this time he will not be able to tolerate either hemodialysis or even CVVH 05/28: initially evaluated around 6:30am. patient in refractory septic shock. added epinephrine to levophed and vasopressin. discussed with Dr. Umana. obtained u/s of the right upper extremity which demonstrated fluid collection surrounding the HeRO graft which was heterogenous in nature. added single dose of Amikacin to vanc/zosyn regimen to cover ESBL organisms. patient remains in shock. per verbal report from OSH, blood cultures growing MRSA. taken to OR urgently and large amount of purulent drainage debrided from around catheter. HeRO catheter removed. returns from OR persistently unstable. acidosis worsening. bicarb given. discussed with nephrology and will need CRRT. 05/29: s/p emergent debridement and removal of HeRO graft. today vasopressor doses are somewhat lower, although remains on levo,vaso,epi. lactate cleared. s/ p IHD today with 3L removal. blood growing MRSA. sputum growing e.coli, providencia, MRSA. wbc remains elevated. 05/30: off vasopressors. getting IHD again today. hgb 7 and receiving 1 unit prbc during dialysis. encephalopathy persists, not following commands. 05/31: clinically continues to improve. not following commands, very slow to arouse. bradycardic this AM, but tolerating hemodynamically. HD yesterday with volume removal. 06/01: Clinically improved off all pressors. Sedated with propofol and fentanyl , opens eyes moves extremities not following commands. Plan for hemodialysis today. Initiate CPAP trial after hemodialysis. Persistently bacteremic with MRSA, repeat cultures in 24 hours 06/02: Remains in septic shock, though pressor requirement has improved. Hypotensive bradycardic while getting HD yesterday, started on Dopamine, now at 3 mcg/kg/min. Pus being expressed from upper part of right upper chest [id number] (HeRO AVG removal site). Hypothermic. Some pus around the suprapubic catheter 06/03: Patient had been weaned off all pressors now. Not requiring dopamine for the last 18 hours. However WBC count 13 K today. Persistent bacteremia with MRSA. Source could be right upper extremity graft remnant versus infected invasive catheters. After hemodialysis removal HD catheter, also remove left IJ central line. Repeat blood cultures in 24 hours. Antibiotics broadened by ID yesterday 06/04: Showing some clinical signs of improvement. Not requiring pressors hypothermia has resolved. CBC still pending patient is more awake following commands tolerating CPAP now. Left IJ central line and right femoral Vas-Cath was removed yesterday. Plan for next dialysis is tomorrow will place new Vas- Cath tomorrow a.m. to give 'line holiday'. 06/05: Back on norepinephrine at 10 mics per minute. Blood blood pressure variable, intermittently hypotensive. New Vas-Cath placed in groin functional. Most recent cultures continued to grow gram-positive cocci. Alert when propofol is lightened 06/06: Afebrile. Remains on norepinephrine drip at 7 mcg/min. Arousable on the ventilator on sedation vacation. Commands. -3 L with hemodialysis yesterday. Repeat blood cultures done the same. Right upper extremity ultrasound pending.. 06/07: remains on vasopressors. cxr today with new left pleural effusion which is quite large: confirmed on bedside lung ultrasound. pigtail chest tube placed with > 1L old hemothorax. hgb slightly lower, but hemodynamically stable. discussed with nephrology and vascular surgery and most ideal plan would be to transfuse prbc tomorrow with HD. 06/08: Remains intubated sedated with propofol. Currently on 8 mcg/min of Levophed but map is above 75. Getting 2 units of PRBC with dialysis for hemoglobin of 6.9. Left pigtail chest tube drained almost 2 L old blood appearing. I will request fluid studies from any residual drainage. CT of the chest to evaluate for any residual fluid. 06/09: Intubated sedated, wakes up and follows commands. On Levophed at 1 mcg/ min. CT of the chest shows small left pleural effusion bibasilar consolidation , multiple bilateral pulmonary nodules some cavitation indicating septic emboli most likely from staff. Blood cultures from 06/05/18 and 06/06/18 negative to date 06/10: Remains intubated slightly sedated follows commands. Levophed requirement has slightly increased overnight currently on 5 mcg/min. We will recheck blood cultures. Getting hemodialysis today. Chest x-ray shows severe left-sided airspace disease. Check ultrasound of the chest post dialysis. Left pigtail chest tube output 60 ml in last 24 hours 06/11 Patient is sedated with Diprivan and Fentanyl infusion, on Levophed 11 mics. Afebrile. Left pigtail catheter had 50 ml output and a second large bore CT was placed yesterday had approx 100ml overnight. 06/12 Patient remains intubated tolerated CPAP for several hrs yesterday remains on Levophed 10 mics and Vasopressin 0.04. Afebrile. Left pigtail catheter was dislodged yesterday, 28Fr CT had 50ml output overnight. Tolerating tube feeds. 06/13: Remains critical Levophed requirement has decreased to 5 mcg/min same dose of vasopressin 0.04. However hemoglobin has dropped to 6.7, 2 units of PRBC ordered stat. Chest tube output approximately 200 mL serosanguineous. I do not believe this is the source of his anemia. Previous history of GI bleed will consult GI. Remains encephalopathic and lethargic I do not think he can be successfully be weaned off the ventilator without a tracheostomy. General surgery consulted per Dr. Umana's request for OR tracheostomy 06/14: Remains on ventilator no acute distress. Currently on vasopressin 0.04. Norepinephrine has been held. Remains hyponatremic and hyperphosphatemia. 06/15: Remains intubated sedated remains on vasopressin. Hyponatremia worsening most likely volume related. Discussed with nephrology plan for HD with fluid removal today. Check TSH, monitor CMP 06/16: Intubated off sedation weakly follows some commands. Chest tube output has significantly diminished. After discussion with Dr. Umana has agreed on tracheostomy, planned for . Remains on Vasopressin 06/17: Remains off sedation now following commands intermittently on upper extremities. Tolerating CPAP with high pressure support. Remains on vasopressin and now on Levophed at 2 mcg/min but systolic blood pressure above 160, I have instructed RN to wean Levophed 06/18: Remains intubated and lightly sedated with low-dose propofol and fentanyl. Tolerate CPAP at high settings unable to reduce pressure support. Will proceed with tracheostomy today with Dr. Acosta. PEG tube per GI. 06/19: off vasopressors. PEG placement. remains trached. will need long-term weaning and rehab. LTAC appropriate. 06/20: doing well. chest tube water seal overnight without any output- plan to remove today. remains afebrile. will need long weaning. 06/21: more awake today. needs to be OOB to stretcher chair. Subjective 06/22: doing well. again appears more awake. sodium trending down which is likely secondary to hypervolemia, likely plan for IHD today. needs to be OOB to stretcher chair. good LTAC candidate: very slow vent weaning attempts. 06/23: has been accepted by LTAC. wbc normal. afebrile. has plan for abx weaning. stable for d/c to LTAC. Objective Vital Signs / I&O: Vital Signs 06/22/18 07:20 06/22/18 08:00 06/22/18 10:00 Temperature 36.7 C Pulse Rate 73 83 Respiratory Rate 19 18 Blood Pressure 111/56 L Pulse Oximetry 100 95 06/22/18 11:03 06/22/18 12:00 06/22/18 14:00 Temperature 36.8 C Pulse Rate 100 H 99 H Respiratory Rate 23 25 H Blood Pressure 97/68 L Pulse Oximetry 94 L 97 06/22/18 16:00 06/22/18 16:25 06/22/18 18:00 Temperature 36.7 C Pulse Rate 106 H 105 H Respiratory Rate 18 23 Blood Pressure 90/44 L Pulse Oximetry 100 100 06/22/18 19:39 06/22/18 20:00 06/22/18 22:00 Temperature 38.1 C H Pulse Rate 105 H 94 H Respiratory Rate 18 19 Blood Pressure 89/61 L Pulse Oximetry 100 94 L 06/23/18 00:00 06/23/18 02:00 06/23/18 03:53 Temperature 37.4 C Pulse Rate 89 94 H Respiratory Rate 17 18 Blood Pressure 98/50 L Pulse Oximetry 98 99 06/23/18 04:00 06/23/18 06:00 06/23/18 06:30 Temperature 36.7 C Pulse Rate 89 93 H Respiratory Rate 16 12 Blood Pressure 104/59 L Pulse Oximetry 97 Intake & Output 06/22/18 06/23/18 06/23/18 18:59 06:59 18:59 Intake Total 972 / 972 1579 / 1579 Output Total 5400 / 5400 300 / 300 Balance -4428 / -4428 1279 / 1279 Weight 132.8 kg Intake: IV 350 / 350 1000 / 1000 Flexbumin 25% Inj 100 ML @ 60 100 / 100 mls/hr IV.SIG WITH DIALYSIS PRN Rx#:[id number] Alburx 5% Inj 500 ML @ 250 mls/ 500 / 500 hr IV.SIG ONCE ONE Rx#:[id number] NS Inj 500 ML @ Wide Open IV. 500 / 500 SIG BOLUS [facility] Rx#:[id number] Vancomycin Inj 1,000 MG In NS 250 / 250 Inj 250 ML @ 250 mls/hr IV.SIG WITH DIALYSIS [facility] Rx#:[id number] Tube Feeding 532 / 532 459 / 459 Water Bolus Amount 90 / 90 120 / 120 Output: Urine 0 / 0 0 / 0 Stool 400 / 400 300 / 300 Hemodialysis Amount 5000 / 5000 Other: Date of Last Bowel Movement 06/22/18 06/23/18 Result Diagrams: 06/23/18 05:44 06/22/18 05:15 Objective Remarks: GENERAL: 73-year-old -[place] male, lying in bed, trached, off sedation HEENT: Normocephalic. Atraumatic. Pupils equal, round, reactive. NECK: Trachea is midline. s/p trach. CHEST: PRVC, now on CPAP. equal chest rise. CARDIOVASCULAR: Atrial fibrillation rate controlled. No JVD. Off pressors ABDOMEN: Soft, nontender, nondistended. No guarding. MUSCULOSKELETAL: Right upper extremity s/p debridement upper incision W/D dressing. Pulses 2+. No peripheral edema. NEUROLOGICAL: Intubated sedated. Follows commands weakly on upper extremities. No focal deficits Assessment and Plan - Assessment and Plan Plan: NEURO/PSYCH: Toxic metabolic encephalopathy- resolving. -As needed hydromorphone 0.5 mg IV every 2 hours as needed added 06/11 - scheduled oxycodone 10mg po q4h - haldol 5mg iv q1h prn for agitation -Acetaminophen 650 mg by tube every 6 hours as needed fever -PT/OT for passive range of motion - needs to be OOB to stretcher chair daily. RESP: Acute hypoxemic and hypercarbic respiratory failure- now chronic. Multiple pulmonary nodules/septic emboli Pulmonary edema Left Hemothorax MRSA pneumonia -trach 06/18/[address] Acosta -HCAP with MRSA- present on admission -Continue abx. daily SBT as narciso. Ventilator bundle. Albuterol/ipratropium aerosols every 6 hours scheduled and albuterol aerosols every 2 hours as needed s/p 10 Fr pigtail chest tube, left, with >1L old dark blood. 06/07. Dislodged 06/11. Fluid studies consistent with hemothorax s/p 28Fr CT placement 06/10 with 400ml removed on insertion, had minimal output last 24 hours. removed 06/20 CXR : Improved left lung airspace consolidation. There is residual bilateral airspace consolidation, left greater than right. CT of the chest shows multiple pulmonary nodules with some cavitation indicating septic emboli CV: Septic shock-resolved Pulmonary edema-resolving Atrial fibrillation with RVR-currently rate controlled Acute severe anion gap Metabolic acidosis- resolved Off pressors A. fib rate is controlled and currently normal sinus rhythm, cannot anticoagulate due to history of recent GI bleed, and blood loss anemia Echo 06/12/2018 shows mild concentric left ventricular hypertrophy. The left ventricular systolic function is normal with an estimated ejection fraction in the range of 55-60%. There is trace tricuspid valve regurgitation. There is a small pericardial effusion present. midodrine to support BP GI/HEME/FEN: Recent GI bleed Acute normocytic anemia requiring transfusion Hyperphosphatemia Hyponatremia hypoalbuminemia -s/p Transfusion of 2U PRBC with HD 06/10, additional 2 units given 06/13/18 -GI consulted. Nepro tube feeds at 45 cc an hour per nutrition recommendations with Beneprotein 1 packet 3 times daily-Hold for trach and PEG -IV pantoprazole 40 mg IV q12 -Docusate sodium/senna 1 tablet twice daily for bowel regimen -Calcium acetate 667 mg 3 times daily for elevated phosphorus. /renal: End-stage renal disease on hemodialysis HeRO graft placed 09/2017, now removed due to graft infection -Nephrology: Dr. Davidson following -Continue HD per nephrology, Getting HD today -Monitor renal function, I/O's, avoid nephrotoxins ID: Septic shock- resolved HeRO graft infection s/p removal HCAP pneumonia- present on admission MRSA septic emboli to lung Persistent MRSA bacteremia -MRSA bacteremia could be secondary to infected remnant of the AV graft, versus secondary seeding of the catheters Recent blood cultures since 06/05/2018 had been negative -Removed Vas-Cath, and left IJ central line 06/03/18 - 05/27, 05/28, 05/30, 06/01 and 06/04 blood cultures MRSA - 05/27 sputum cultures: Providencia, MRSA, e.coli - 06/02 wound with Arlet albicans - ID Dr. Morgan, abx management per ID - cont vancomycin: keep trough 15-20 cont rifampin - Continue fluconazole - Will need minimum 6 weeks coverage for MRSA graft infection - Dr. Umana following ENDO: Type 2 diabetes Presumed Adrenal insufficiency- resolved -Sliding scale insulin with aspart insulin every 4 hours -Status post stress steroids PROPH: -Bilateral lower extremity SCDs. IV Protonix 40 mg every 12. Chemical prophylaxis contraindicated due to anemia requiring transfusion LINES: -Removed OSH left IJ central line and OSH right femoral Vas-Cath on 06/03/2018 -New left femoral Vas-Cath placement 06/04/18 -left radial arterial line 05/27-removed 06/13/18 -New LIJ central line 06/08/18 due to ongoing pressor requirement: can likely be discontinued once appropriate alternative access can be found. OVERALL IMPRESSION: very slow improvements. needs long-term abx and will need weaning. good LTAC candidate.
[2018-06-23 07:29] LABS: Potassium 3.3 meq/L (3.5-5.1)
[2018-06-23 07:42] LABS: Calcium 10.5 mg/dL (8.5-10.1); Carbon Dioxide 25.1 meq/L (21.0-32.0); Magnesium 2.2 mg/dL (1.5-2.5); Phosphorus 2.5 mg/dL (2.5-4.9)
[2018-06-23] MEDS: Beneprotein Powder Packet G-TUBE SCH (09:15)
[2018-06-23] MEDS: Senna/Docusate Sodium 8.6/50 MG Tablet PO SCH (09:15)
[2018-06-23] MEDS: Mupirocin 2% Nasal Oint Topical Syringe EACH NARE SCH (09:15)
[2018-06-23] MEDS: Calcium Acetate 667 MG Capsule PO SCH (09:15)
[2018-06-23] MEDS: Hypromellose 0.3% Opth Gel 10 GM Bottle EACH EYE SCH (09:52)
[2018-06-23 10:05] VITALS: BP 106/58; PULSE 79
[2018-06-23] MEDS: Pantoprazole Inj 40 MG Vial IV.PUSH SCH (10:30)
--- NOTE | 2018-06-23 11:56 | P.PNNP ---
Subjective Interval history: Status post tracheostomy Physical Exam Vital signs: Vital Signs 06/22/18 12:00 06/22/18 14:00 06/22/18 16:00 Temperature 98.3 F 98.1 F Pulse Rate 100 H 99 H 106 H Respiratory Rate 25 H 18 Blood Pressure 97/68 L 90/44 L Pulse Oximetry 97 100 06/22/18 16:25 06/22/18 18:00 06/22/18 19:39 Temperature Pulse Rate 105 H Respiratory Rate 23 18 Blood Pressure Pulse Oximetry 100 100 06/22/18 20:00 06/22/18 22:00 06/23/18 00:00 Temperature 100.5 F H 99.3 F Pulse Rate 105 H 94 H 89 Respiratory Rate 19 17 Blood Pressure 89/61 L 98/50 L Pulse Oximetry 94 L 98 06/23/18 02:00 06/23/18 03:53 06/23/18 04:00 Temperature 98.0 F Pulse Rate 94 H 89 Respiratory Rate 18 16 Blood Pressure 71/49 L Pulse Oximetry 99 97 06/23/18 04:15 06/23/18 04:30 06/23/18 04:45 Temperature Pulse Rate 87 86 91 H Respiratory Rate 13 21 13 Blood Pressure 104/59 L 126/57 L 106/55 L Pulse Oximetry 96 99 97 06/23/18 05:00 06/23/18 05:15 06/23/18 05:30 Temperature Pulse Rate 92 H 90 92 H Respiratory Rate 11 L 10 L 16 Blood Pressure 111/57 L 107/56 L 112/57 L Pulse Oximetry 97 98 98 06/23/18 05:45 06/23/18 06:00 06/23/18 06:15 Temperature Pulse Rate 95 H 93 H 91 H Respiratory Rate 20 15 10 L Blood Pressure 114/59 L 114/54 L 107/56 L Pulse Oximetry 98 99 98 06/23/18 06:30 06/23/18 06:45 06/23/18 07:00 Temperature Pulse Rate 91 H 91 H 87 Respiratory Rate 12 18 18 Blood Pressure 107/59 L 126/66 119/56 L Pulse Oximetry 97 94 L 99 06/23/18 07:15 06/23/18 07:30 06/23/18 07:45 Temperature Pulse Rate 88 88 92 H Respiratory Rate 20 18 14 Blood Pressure 107/51 L 106/60 122/59 L Pulse Oximetry 99 99 91 L 06/23/18 08:00 06/23/18 08:03 06/23/18 08:15 Temperature Pulse Rate 83 85 Respiratory Rate 26 H 22 21 Blood Pressure 83/49 L 97/53 L Pulse Oximetry 97 96 99 06/23/18 08:30 06/23/18 08:45 06/23/18 09:00 Temperature Pulse Rate 82 80 81 Respiratory Rate 20 17 23 Blood Pressure 96/54 L 102/55 L 96/52 L Pulse Oximetry 99 98 98 06/23/18 09:15 06/23/18 09:30 06/23/18 09:45 Temperature Pulse Rate 78 83 86 Respiratory Rate 15 19 24 Blood Pressure 94/50 L 101/56 L 106/57 L Pulse Oximetry 97 99 96 06/23/18 10:00 Temperature Pulse Rate 79 Respiratory Rate 16 Blood Pressure 106/58 L Pulse Oximetry 95 Intake & Output 06/22/18 06/23/18 06/23/18 18:59 06:59 18:59 Intake Total 972 / 972 1579 / 1579 Output Total 5400 / 5400 300 / 300 Balance -4428 / -4428 1279 / 1279 Weight 132.8 kg Intake: IV 350 / 350 1000 / 1000 Flexbumin 25% Inj 100 ML @ 60 100 / 100 mls/hr IV.SIG WITH DIALYSIS PRN Rx#:[id number] Alburx 5% Inj 500 ML @ 250 mls/ 500 / 500 hr IV.SIG ONCE ONE Rx#:[id number] NS Inj 500 ML @ Wide Open IV. 500 / 500 SIG BOLUS [facility] Rx#:[id number] Vancomycin Inj 1,000 MG In NS 250 / 250 Inj 250 ML @ 250 mls/hr IV.SIG WITH DIALYSIS [facility] Rx#:[id number] Tube Feeding 532 / 532 459 / 459 Water Bolus Amount 90 / 90 120 / 120 Output: Urine 0 / 0 0 / 0 Stool 400 / 400 300 / 300 Hemodialysis Amount 5000 / 5000 Other: Date of Last Bowel Movement 06/22/18 06/23/18 06/23/18 Narrative: Eyes open; non verbal Trach in place without any complications Lungs: Bilateral basal rales, and diffuse wheezing. Abd: distended, BS positive. Ext: Moderate leg edema. - Urinary Catheter Management Suprapubic Cath placed during this visit: no Assessment and Plan - Assessment (1) End stage renal disease on dialysis Code(s): N18.6 - End stage renal disease; Z99.2 - Dependence on renal dialysis Status: Acute (2) Hemodialysis access, AV graft Code(s): Z99.2 - Dependence on renal dialysis Status: Acute - Plan Patient has sepsis and undergoing treatment with IV vancomycin Patient low blood pressure on vasopressors Patient last ultrafiltration 3 L was removed. Status post tracheostomy going to have permacath Need long-term placement Apparent HeRO infection and MRSA: Removal of previous left IJ port, s/p partial removal for right arm graft and HeRO outflow component. Ongoing hypotension - follow with ID and Vascular. HD This can be set up as outpatient possible dc to [facility] Continue HD 3 times a week and as needed. Continue antibiotics. --
[2018-06-23 12:20] VITALS: RESP 18; O2SAT 99
--- NOTE | 2018-06-23 13:23 | XR ---
EXAM DATE: 06/23/2018 12:41 PM EDT AGE/SEX: 73 years / Male INDICATIONS: Short of breath, evaluate respiratory disease CLINICAL DATA: This is the patient's subsequent encounter. Patient reports that signs and symptoms h ave been present for 1 month and indicates a pain score of Nonresponsive. MEDICAL/SURGICAL HISTORY: Cardiovascular disease. Hypertension. Renal disease, end stage. . t racheostomy COMPARISON: [facility], CHEST 1V SINGLE AP, 06/21/2018. . FINDINGS: The patient has a left IJ dual-lumen catheter in good position. Tracheostomy tube in good position. S mall lung volumes. Mild pulmonary vascular congestion slightly improved from the previous study. Ther e is no visible pneumothorax. Right-sided vascular stent in place. CONCLUSION: Mild perivascular congestion slightly improved from the previous day's study Electronically signed by: Rylan Rod MD 06/23/2018 1:21 PM EDT
--- NOTE | 2018-06-23 15:17 | P.DS ---
Date of admission: 05/27/18 20:30 Primary care physician: UNKNOWN Attending physician on discharge: Jack Mcdonough Anticipated date of discharge: 06/23/18 Brief History from admission: Mr. Laguerre is a 73-year-old -[place] male with past medical history significant for end-stage renal disease on hemodialysis, hypertension, complicated vascular access, HeRO graft placement by Dr. Umana on 09/23/2017, revision and PTFE replacement 12/25/17. who presented to the [facility] with probable sepsis and shock. Dr. Umana was contacted and patient was accepted for transfer to CVICU in [facility]. I immediately evaluated the patient on arrival to CVICU. Patient is currently on BiPAP (transported on BiPAP) severely encephalopathic hardly wakes up to sternal rub, with a rapid shallow breathing. BiPAP settings 18/8, 60% FiO2. He is literally unresponsive and not protecting airway. Currently he is on Levophed at 20 mcg/min with a map 65-70. He is also on amiodarone for atrial fibrillation with RVR. Because of lack of airway protection, severe encephalopathy, septic shock and hypoxia I proceeded with endotracheal intubation. His glottic opening was completely occluded with thick secretions, several minutes of suctioning needed to clear the secretions prior to intubation. Postintubation Levophed had to be increased to 30 mcg/min, I also placed an arterial line. All cultures, routine labs and lactic acid pending at this time. I have started him on vancomycin and Zosyn. Discussed case with Dr. Umana extensively Patient was unable to provide any history, according to the RN who got report patient apparently had GI bleed, underwent EGD with cauterization of duodenal ulcer few days ago. Will avoid heparin for DVT prophylaxis. His postintubation ABG showed severe hypoxia with significant AA gradient, metabolic acidosis, and a hemoglobin of 7.6. Currently Levophed is increased to 30 mcg/min, I will transfuse 1 unit PRBC. Chest x-ray shows pulmonary edema will arrange for hemodialysis once his shock is improves. At this time he will not be able to tolerate either hemodialysis or even CVVH DS: Diagnosis - Discharge Diagnosis (1) End stage renal disease on dialysis Status: Acute (2) Ventilator dependence Status: Acute (3) Hemodialysis access, AV graft Status: Acute DS: Summary Hospital Course: Mr. Laguerre is a 73-year-old -[place] male with past medical history significant for end-stage renal disease on hemodialysis, hypertension, complicated vascular access, HeRO graft placement by Dr. Umana on 09/23/2017, revision and PTFE replacement 12/25/17. who presented to the [facility] with probable sepsis and shock. Dr. Umana was contacted and patient was accepted for transfer to CVICU in [facility]. I immediately evaluated the patient on arrival to CVICU. Patient is currently on BiPAP (transported on BiPAP) severely encephalopathic hardly wakes up to sternal rub, with a rapid shallow breathing. BiPAP settings 18/8, 60% FiO2. He is literally unresponsive and not protecting airway. Currently he is on Levophed at 20 mcg/min with a map 65-70. He is also on amiodarone for atrial fibrillation with RVR. Because of lack of airway protection, severe encephalopathy, septic shock and hypoxia I proceeded with endotracheal intubation. His glottic opening was completely occluded with thick secretions, several minutes of suctioning needed to clear the secretions prior to intubation. Postintubation Levophed had to be increased to 30 mcg/min, I also placed an arterial line. All cultures, routine labs and lactic acid pending at this time. I have started him on vancomycin and Zosyn. Discussed case with Dr. Umana extensively Patient was unable to provide any history, according to the RN who got report patient apparently had GI bleed, underwent EGD with cauterization of duodenal ulcer few days ago. Will avoid heparin for DVT prophylaxis. His postintubation ABG showed severe hypoxia with significant AA gradient, metabolic acidosis, and a hemoglobin of 7.6. Currently Levophed is increased to 30 mcg/min, I will transfuse 1 unit PRBC. Chest x-ray shows pulmonary edema will arrange for hemodialysis once his shock is improves. At this time he will not be able to tolerate either hemodialysis or even CVVH 05/28: initially evaluated around 6:30am. patient in refractory septic shock. added epinephrine to levophed and vasopressin. discussed with Dr. Umana. obtained u/s of the right upper extremity which demonstrated fluid collection surrounding the HeRO graft which was heterogenous in nature. added single dose of Amikacin to vanc/zosyn regimen to cover ESBL organisms. patient remains in shock. per verbal report from OSH, blood cultures growing MRSA. taken to OR urgently and large amount of purulent drainage debrided from around catheter. HeRO catheter removed. returns from OR persistently unstable. acidosis worsening. bicarb given. discussed with nephrology and will need CRRT. 05/29: s/p emergent debridement and removal of HeRO graft. today vasopressor doses are somewhat lower, although remains on levo,vaso,epi. lactate cleared. s/ p IHD today with 3L removal. blood growing MRSA. sputum growing e.coli, providencia, MRSA. wbc remains elevated. 05/30: off vasopressors. getting IHD again today. hgb 7 and receiving 1 unit prbc during dialysis. encephalopathy persists, not following commands. 05/31: clinically continues to improve. not following commands, very slow to arouse. bradycardic this AM, but tolerating hemodynamically. HD yesterday with volume removal. 06/01: Clinically improved off all pressors. Sedated with propofol and fentanyl , opens eyes moves extremities not following commands. Plan for hemodialysis today. Initiate CPAP trial after hemodialysis. Persistently bacteremic with MRSA, repeat cultures in 24 hours 06/02: Remains in septic shock, though pressor requirement has improved. Hypotensive bradycardic while getting HD yesterday, started on Dopamine, now at 3 mcg/kg/min. Pus being expressed from upper part of right upper chest [id number] (HeRO AVG removal site). Hypothermic. Some pus around the suprapubic catheter 06/03: Patient had been weaned off all pressors now. Not requiring dopamine for the last 18 hours. However WBC count 13 K today. Persistent bacteremia with MRSA. Source could be right upper extremity graft remnant versus infected invasive catheters. After hemodialysis removal HD catheter, also remove left IJ central line. Repeat blood cultures in 24 hours. Antibiotics broadened by ID yesterday 06/04: Showing some clinical signs of improvement. Not requiring pressors hypothermia has resolved. CBC still pending patient is more awake following commands tolerating CPAP now. Left IJ central line and right femoral Vas-Cath was removed yesterday. Plan for next dialysis is tomorrow will place new Vas- Cath tomorrow a.m. to give 'line holiday'. 06/05: Back on norepinephrine at 10 mics per minute. Blood blood pressure variable, intermittently hypotensive. New Vas-Cath placed in groin functional. Most recent cultures continued to grow gram-positive cocci. Alert when propofol is lightened 06/06: Afebrile. Remains on norepinephrine drip at 7 mcg/min. Arousable on the ventilator on sedation vacation. Commands. -3 L with hemodialysis yesterday. Repeat blood cultures done the same. Right upper extremity ultrasound pending.. 06/07: remains on vasopressors. cxr today with new left pleural effusion which is quite large: confirmed on bedside lung ultrasound. pigtail chest tube placed with > 1L old hemothorax. hgb slightly lower, but hemodynamically stable. discussed with nephrology and vascular surgery and most ideal plan would be to transfuse prbc tomorrow with HD. 06/08: Remains intubated sedated with propofol. Currently on 8 mcg/min of Levophed but map is above 75. Getting 2 units of PRBC with dialysis for hemoglobin of 6.9. Left pigtail chest tube drained almost 2 L old blood appearing. I will request fluid studies from any residual drainage. CT of the chest to evaluate for any residual fluid. 06/09: Intubated sedated, wakes up and follows commands. On Levophed at 1 mcg/ min. CT of the chest shows small left pleural effusion bibasilar consolidation , multiple bilateral pulmonary nodules some cavitation indicating septic emboli most likely from staff. Blood cultures from 06/05/18 and 06/06/18 negative to date 06/10: Remains intubated slightly sedated follows commands. Levophed requirement has slightly increased overnight currently on 5 mcg/min. We will recheck blood cultures. Getting hemodialysis today. Chest x-ray shows severe left-sided airspace disease. Check ultrasound of the chest post dialysis. Left pigtail chest tube output 60 ml in last 24 hours 06/11 Patient is sedated with Diprivan and Fentanyl infusion, on Levophed 11 mics. Afebrile. Left pigtail catheter had 50 ml output and a second large bore CT was placed yesterday had approx 100ml overnight. 06/12 Patient remains intubated tolerated CPAP for several hrs yesterday remains on Levophed 10 mics and Vasopressin 0.04. Afebrile. Left pigtail catheter was dislodged yesterday, 28Fr CT had 50ml output overnight. Tolerating tube feeds. 06/13: Remains critical Levophed requirement has decreased to 5 mcg/min same dose of vasopressin 0.04. However hemoglobin has dropped to 6.7, 2 units of PRBC ordered stat. Chest tube output approximately 200 mL serosanguineous. I do not believe this is the source of his anemia. Previous history of GI bleed will consult GI. Remains encephalopathic and lethargic I do not think he can be successfully be weaned off the ventilator without a tracheostomy. General surgery consulted per Dr. Umana's request for OR tracheostomy 06/14: Remains on ventilator no acute distress. Currently on vasopressin 0.04. Norepinephrine has been held. Remains hyponatremic and hyperphosphatemia. 06/15: Remains intubated sedated remains on vasopressin. Hyponatremia worsening most likely volume related. Discussed with nephrology plan for HD with fluid removal today. Check TSH, monitor CMP 06/16: Intubated off sedation weakly follows some commands. Chest tube output has significantly diminished. After discussion with Dr. Umana has agreed on tracheostomy, planned for . Remains on Vasopressin 06/17: Remains off sedation now following commands intermittently on upper extremities. Tolerating CPAP with high pressure support. Remains on vasopressin and now on Levophed at 2 mcg/min but systolic blood pressure above 160, I have instructed RN to wean Levophed 06/18: Remains intubated and lightly sedated with low-dose propofol and fentanyl. Tolerate CPAP at high settings unable to reduce pressure support. Will proceed with tracheostomy today with Dr. Acosta. PEG tube per GI. 06/19: off vasopressors. PEG placement. remains trached. will need long-term weaning and rehab. LTAC appropriate. 06/20: doing well. chest tube water seal overnight without any output- plan to remove today. remains afebrile. will need long weaning. 06/21: more awake today. needs to be OOB to stretcher chair. 06/22: doing well. again appears more awake. sodium trending down which is likely secondary to hypervolemia, likely plan for IHD today. needs to be OOB to stretcher chair. good LTAC candidate: very slow vent weaning attempts. 06/23: has been accepted by LTAC. wbc normal. afebrile. has plan for abx weaning. stable for d/c to LTAC. - Time Spent with Patient Total time spent providing and/or coordinating discharge services: Greater than 30 minutes Exam Vital signs: Vital Signs 06/22/18 16:00 06/22/18 16:25 06/22/18 18:00 Temperature 36.7 C Pulse Rate 106 H 105 H Respiratory Rate 18 23 Blood Pressure 90/44 L Pulse Oximetry 100 100 06/22/18 19:39 06/22/18 20:00 06/22/18 22:00 Temperature 38.1 C H Pulse Rate 105 H 94 H Respiratory Rate 18 19 Blood Pressure 89/61 L Pulse Oximetry 100 94 L 06/23/18 00:00 06/23/18 02:00 06/23/18 03:53 Temperature 37.4 C Pulse Rate 89 94 H Respiratory Rate 17 18 Blood Pressure 98/50 L Pulse Oximetry 98 99 06/23/18 04:00 06/23/18 04:15 06/23/18 04:30 Temperature 36.7 C Pulse Rate 89 87 86 Respiratory Rate 16 13 21 Blood Pressure 71/49 L 104/59 L 126/57 L Pulse Oximetry 97 96 99 06/23/18 04:45 06/23/18 05:00 06/23/18 05:15 Temperature Pulse Rate 91 H 92 H 90 Respiratory Rate 13 11 L 10 L Blood Pressure 106/55 L 111/57 L 107/56 L Pulse Oximetry 97 97 98 06/23/18 05:30 06/23/18 05:45 06/23/18 06:00 Temperature Pulse Rate 92 H 95 H 93 H Respiratory Rate 16 20 15 Blood Pressure 112/57 L 114/59 L 114/54 L Pulse Oximetry 98 98 99 06/23/18 06:15 06/23/18 06:30 06/23/18 06:45 Temperature Pulse Rate 91 H 91 H 91 H Respiratory Rate 10 L 12 18 Blood Pressure 107/56 L 107/59 L 126/66 Pulse Oximetry 98 97 94 L 06/23/18 07:00 06/23/18 07:15 06/23/18 07:30 Temperature Pulse Rate 87 88 88 Respiratory Rate 18 20 18 Blood Pressure 119/56 L 107/51 L 106/60 Pulse Oximetry 99 99 99 06/23/18 07:45 06/23/18 08:00 06/23/18 08:03 Temperature Pulse Rate 92 H 83 Respiratory Rate 14 26 H 22 Blood Pressure 122/59 L 83/49 L Pulse Oximetry 91 L 97 96 06/23/18 08:15 06/23/18 08:30 06/23/18 08:45 Temperature Pulse Rate 85 82 80 Respiratory Rate 21 20 17 Blood Pressure 97/53 L 96/54 L 102/55 L Pulse Oximetry 99 99 98 06/23/18 09:00 06/23/18 09:15 06/23/18 09:30 Temperature Pulse Rate 81 78 83 Respiratory Rate 23 15 19 Blood Pressure 96/52 L 94/50 L 101/56 L Pulse Oximetry 98 97 99 06/23/18 09:45 06/23/18 10:00 06/23/18 12:14 Temperature Pulse Rate 86 79 Respiratory Rate 24 16 18 Blood Pressure 106/57 L 106/58 L Pulse Oximetry 96 95 99 Intake & Output 06/22/18 06/23/18 06/23/18 18:59 06:59 18:59 Intake Total 972 / 972 1579 / 1579 Output Total 5400 / 5400 300 / 300 Balance -4428 / -4428 1279 / 1279 Weight 132.8 kg Intake: IV 350 / 350 1000 / 1000 Flexbumin 25% Inj 100 ML @ 60 100 / 100 mls/hr IV.SIG WITH DIALYSIS PRN Rx#:[id number] Alburx 5% Inj 500 ML @ 250 mls/ 500 / 500 hr IV.SIG ONCE ONE Rx#:[id number] NS Inj 500 ML @ Wide Open IV. 500 / 500 SIG BOLUS [facility] Rx#:[id number] Vancomycin Inj 1,000 MG In NS 250 / 250 Inj 250 ML @ 250 mls/hr IV.SIG WITH DIALYSIS [facility] Rx#:[id number] Tube Feeding 532 / 532 459 / 459 Water Bolus Amount 90 / 90 120 / 120 Output: Urine 0 / 0 0 / 0 Stool 400 / 400 300 / 300 Hemodialysis Amount 5000 / 5000 Other: Date of Last Bowel Movement 06/22/18 06/23/18 06/23/18 Results Procedures completed during hospitalization: trach/peg HERO graft removal Labs on day of discharge: Labs from last 24 hours 06/23/18 06/23/18 06/23/18 13:47 09:19 05:44 WBC 8.1 RBC 2.77 L Hgb 8.1 L Hct 24.7 L MCV 89.4 MCH 29.3 MCHC 32.8 RDW 15.5 Plt Count 355 MPV 7.1 Sodium Potassium Chloride Carbon Dioxide Anion Gap BUN Creatinine Estimated GFR POC Glucose 219 H 245 H Random Glucose Calcium Phosphorus Magnesium 06/23/18 06/23/18 06/22/18 05:44 04:06 23:46 WBC RBC Hgb Hct MCV MCH MCHC RDW Plt Count MPV Sodium 135 L Potassium 3.3 L D Chloride 95 L Carbon Dioxide 25.1 Anion Gap 15 BUN 44 H Creatinine 6.34 H Estimated GFR 11 L POC Glucose 201 H 151 H Random Glucose 210 H Calcium 10.5 H Phosphorus 2.5 D Magnesium 2.2 06/22/18 06/22/18 06/22/18 19:46 16:08 15:01 WBC 7.9 RBC 3.13 L Hgb 9.3 L Hct 27.9 L MCV 89.0 MCH 29.6 MCHC 33.2 RDW 15.4 Plt Count 403 MPV 6.9 L Sodium Potassium Chloride Carbon Dioxide Anion Gap BUN Creatinine Estimated GFR POC Glucose 171 H 237 H Random Glucose Calcium Phosphorus Magnesium Preliminary micro results at discharge 05/28/18 14:40 Fungal Culture - Preliminary Wound - Arm No growth in 3 weeks 05/28/18 14:40 Mycobacterial Culture - Preliminary Wound - Arm No growth in 3 weeks 05/28/18 14:40 Fungal Culture - Preliminary Other No growth in 3 weeks 05/28/18 14:40 Mycobacterial Culture - Preliminary Other No growth in 3 weeks - Impressions ITS Impressions Chest CT 06/10/18 12:01 CONCLUSION: 1. Bilateral parenchymal infiltrates are seen as well as bilateral moderate effusions left greater than right. 2. Pulmonary nodules are identified including cavitary lesions. Upper Extremity Ultrasound 06/14/18 00:00 CONCLUSION: 1. Very impressive subcutaneous edema. No drainable fluid collection or abscess Abdomen X-Ray 06/17/18 00:00 CONCLUSION: NG tube as above. Central Venous Line 06/19/18 00:00 CONCLUSION: 1. Uncomplicated PermaCath placement as above. Chest X-Ray 06/23/18 00:00 CONCLUSION: Mild perivascular congestion slightly improved from the previous day's study Discharge Plan - Discharge Disposition Patient Disposition: [facility] Rehab Inpatient - Discharge Condition Condition: Stable - Discharge Order Discharge Orders: Discharge Order (Routine); Ordered 06/23/18 Ordered By: Jack Mcdonough - Discharge Details Anticipated Discharge Date: 06/23/18 Discharge Comment: to [facility] Primary Care Provider: UNKNOWN, Attending Provider: Dean Martin Other Providers: Raya Morgan MD ; [employer] ; Breezy Umana MD ; Sebastien Davidson MD ; Justin Meier MD ; Josafat Acosta MD ; [facility] - Rxs /Orders / Referrals /Forms Referrals: Breezy Umana MD [Physician] - See Instructions (Follow up appointment is scheduled on 07/10/18 at 0930) UNKNOWN, [Primary Care Provider] - See Instructions
== END 2018-06-23 14:40 ==
LOC: HCVI 20:30 → HIMC 06-10 12:40
PROVIDERS: ADMIT Surgery Surgical Critical Care; ATTEND Surgery Surgical Critical Care
PROC: AVGFTUE (ICD-10-PCS; 2018-05-28 13:12)